=== PATIENT | female | born 1950 | race Caucasian/White ===

== ENCOUNTER → 2017-12-24 09:09 | Outpatient (CLI) | payer MEDICARE, SELFPAY ==
[2017-12-24 10:29] LABS: Hematocrit 39.9 % (37-47); Hemoglobin 12.5 g/dl (12.0-15.0); Mean Corp Hgb Conc 31.3 g/gl (32-36); Mean Corpuscular Hgb 29.6 pg (27.0-32.0); Mean Corpuscular Volume 94.3 fL (81-99); Mean Platelet Vol. 8.9 fl (6.2-12.0); Platelet Count 232 K/mm3 (150-450); RBC Distribution Width CV 12.9 % (11.6-14.6); RBC Distribution Width SD 44.1 fl (35.1-43.9); Red Blood Count 4.23 M/mm3 (4.2-5.4); White Blood Count 5.1 K/mm3 (4.4-11.0)
[2017-12-24 10:30] LABS: Scan Indicated on CBC? Y/N NO
[2017-12-24 10:49] LABS: Microalbumin,Random Urine 21.2 mg/L (NO RANGE EST.); Microalbumin:Creatinine Ratio 56.5 mg/g CRE (<30 mg/g CRE)
[2017-12-24 10:57] LABS: Albumin, Serum 3.6 g/dL (3.2-5.0); BUN 25 mg/dL (7-18); BUN/Creat Ratio 16.7 RATIO (10-20); Calcium,Total 9.9 mg/dL (8.5-10.1); Chloride 105 mmol/L (98-107); EST Glomerular Filtration Rate 37 mL/min (>60); Est Glom Filt Rate - Afr Amer 44 mL/min (>60); Glucose 82 mg/dL (74-106); Phosphorus 3.1 mg/dL (2.5-4.9); Sodium Level 137 mmol/L (136-145)
[2017-12-25 09:03] LABS: Vitamin D,25 Hydroxy 56.7 ng/mL (19.95-100.01)
[2017-12-25 09:04] LABS: PTHIN 91.2 pg/mL (18.4-80.1)
== END ==
PROVIDERS: Family Provider Nurse Practitioner Family; PCP Nurse Practitioner Family; Visit Provider Internal Medicine Nephrology
DX: N25.1 Nephrogenic diabetes insipidus (principal)
CPT/HCPCS: 36415; 80069; 82043; 82306; 82570; 83970; 85027

== ENCOUNTER → 2018-03-23 08:52 | Outpatient (CLI) | payer MEDICARE, SELFPAY ==
[2018-03-23 09:54] LABS: AST(SGOT) 17 U/L (15-37); Alanine Aminotransfer ALT/SGPT 17 U/L (13-56); Albumin, Serum 3.7 g/dL (3.2-5.0); Alkaline Phosphatase 91 U/L (45-117); Anion Gap 8 (5-15); BUN 33 mg/dL (7-18); BUN/Creat Ratio 18.1 RATIO (10-20); Calcium,Total 9.5 mg/dL (8.5-10.1); Chloride 112 mmol/L (98-107); Creatinine, Serum 1.82 mg/dL (0.55-1.02); EST Glomerular Filtration Rate 29 mL/min (>60); Est Glom Filt Rate - Afr Amer 35 mL/min (>60); Globulin 3.6 g/dL (2.2-4.2); Glucose 114 mg/dL (74-106); Potassium 4.5 mmol/L (3.5-5.1); Protein, Total 7.3 g/dL (6.4-8.2); Sodium Level 142 mmol/L (136-145)
[2018-03-24 09:23] LABS: PTHIN 150.4 pg/mL (18.4-80.1)
[2018-03-24 09:30] LABS: Vitamin D,25 Hydroxy 75.3 ng/mL (29.95-100.01)
== END ==
PROVIDERS: Family Provider Nurse Practitioner Family; PCP Nurse Practitioner Family; Visit Provider Internal Medicine Endocrinology, Diabetes & Metabolism
DX: E83.52 Hypercalcemia (principal)
CPT/HCPCS: 36415; 80053; 82306; 82330; 83970

== ENCOUNTER 2018-06-28 09:37 | Outpatient (RCR) | payer MEDICARE, SELFPAY ==
[2018-06-28 11:43] LABS: ALB/GLOB Ratio 1.2 RATIO (0.9-2.4); AST(SGOT) 19 U/L (15-37); Alanine Aminotransfer ALT/SGPT 27 U/L (13-56); Albumin, Serum 3.7 g/dL (3.2-5.0); Alkaline Phosphatase 65 U/L (45-117); Anion Gap 12 (5-15); BUN 31 mg/dL (7-18); BUN/Creat Ratio 18.8 RATIO (10-20); Calcium,Total 10.3 mg/dL (8.5-10.1); Chloride 111 mmol/L (98-107); Creatinine, Serum 1.65 mg/dL (0.55-1.02); EST Glomerular Filtration Rate 33 mL/min (>60); Est Glom Filt Rate - Afr Amer 40 mL/min (>60); Globulin 3.1 g/dL (2.2-4.2); Glucose 101 mg/dL (74-106); Potassium 4.1 mmol/L (3.5-5.1); Protein, Total 6.8 g/dL (6.4-8.2); Sodium Level 148 mmol/L (136-145)
== END 2018-06-28 11:00 | disposition home or self-care (01) ==
LOC: LAB 09:37
PROVIDERS: Family Provider Nurse Practitioner Family; PCP Nurse Practitioner Family
DX: Z51.81 Encounter for therapeutic drug level monitoring (principal)
CPT/HCPCS: 36415; 80053

== ENCOUNTER 2018-06-29 15:54 | Inpatient (IN) | payer MEDICARE, SELFPAY ==
[2018-06-29 15:54] VITALS: BP 137/77; PULSE 97; RESP 20; TEMP 37.5; O2SAT 96; BMI 22.4
--- NOTE | 2018-06-29 16:23 | ED.VISSUMM ---
- ER Visit Summary Date of Service: 06/29/18 Chief Complaint: Fever and delirium History of Present Illness: The patient is a 68 F with history of bipolar disorder, diabetes insipidus, recent diagnosis of hyperparathyroidism, history of stage III chronic kidney disease, presents for evaluation of delirium and fever. History provided by the and the patient. Patient was recently discharged after a 10 day admission to [facility], at which time she was diagnosed with hyperparathyroidism, and treated for hypercalcemia and hyponatremia. She was discharged 4 days ago. states the patient had a routine follow-up evaluation today with her primary care provider, who was concerned patient might be septic. Patient had a fever at the visit of 101.6. states there are no new symptoms since her hospital admission, and the way she is acting today is similar to the reason he took her to [facility] emergency department to begin with. She is having abnormal behavior, tremors, decreased oral intake, decreased sleep, symptoms worse at night. He denies noting a measured fever at home, and patient denies chest pain, cough, shortness of breath, abdominal pain, nausea or vomiting, diarrhea or constipation, dysuria or hematuria. Patient does have polyuria. Medication changes include changing to Ativan 3 times daily with Klonopin being discontinued. Patient's olanzapine was also increased. No other medication changes after the admission. Physical Examination: Vital signs: Oral temperature 99.5, hemodynamically stable, no hypoxia on room air General: Thin, well developed, in no distress, mildly agitated and tearful Skin: warm, dry, no rash, no conjunctival pallor HEENT: normocephalic and atraumatic; PERRL, EOMI, moist mucous membranes, no oropharyngeal lesions noted Cardiovascular: regular rate and rhythm without murmurs, no peripheral edema, 2+ pulses all distal extremities Respiratory: No increased work of breathing, lungs are clear to auscultation bilaterally, no rales, rhonchi or wheezing Abdominal: Abdomen is soft, nontender with normoactive bowel sounds, no guarding or rebound, no masses MSK: Moves all extremities, no deformities, normal strength Neuro: Awake and alert, oriented ?4. No facial droop, sensation and motor function intact and symmetric, mild tremulousness in the upper extremities Test Results: Abnormal Lab Results 06/29/18 06/29/18 06/29/18 16:20 16:55 16:55 WBC 11.5 H RBC 3.36 L Hgb 10.5 L Hct 32.6 L MCV 97.0 MCH 31.3 MCHC 32.2 RDW 13.0 RDW Differential 43.9 Plt Count 229 MPV 8.5 Immature Gran % (Auto) 0.200 Neut % (Auto) 86.0 H Lymph % (Auto) 6.1 L Peach % (Auto) 7.3 Eos % (Auto) 0.3 Baso % (Auto) 0.1 Absolute Neuts (auto) 9.9 H Absolute Lymphs (auto) 0.70 L Total Counted Not Reportable ESR PT 13.1 INR 1.0 APTT 24.8 Sodium Potassium Chloride Carbon Dioxide Anion Gap BUN Creatinine Estim Creat Clear Calc Est GFR (MDRD) Af Amer Est GFR (MDRD) Non-Af BUN/Creatinine Ratio Glucose Lactic Acid 1.0 Calcium Phosphorus Magnesium Total Bilirubin AST ALT Alkaline Phosphatase Troponin I Total Protein Albumin Globulin Albumin/Globulin Ratio TSH Free T4 Urine Color Urine Clarity Urine pH Ur Specific [place] Urine Protein Urine Glucose (UA) Urine Ketones Urine Occult Blood Urine Nitrite Urine Bilirubin Urine Urobilinogen Ur Leukocyte Esterase Urine RBC Urine WBC Ur Squamous Epith Cells Urine Bacteria Urine Mucus Urine Opiates Screen Urine Methadone Screen Ur Barbiturates Screen Ur Phencyclidine Scrn Ur Amphetamines Screen U Methamphetamin-MDMA U Benzodiazepines Scrn Urine Cocaine Screen U Cannabinoids Screen Ur Drug Screen Comment Ethyl Alcohol POC Glucose 06/29/18 06/29/18 06/29/18 16:55 16:55 16:55 WBC RBC Hgb Hct MCV MCH MCHC RDW RDW Differential Plt Count MPV Immature Gran % (Auto) Neut % (Auto) Lymph % (Auto) Peach % (Auto) Eos % (Auto) Baso % (Auto) Absolute Neuts (auto) Absolute Lymphs (auto) Total Counted ESR PT INR APTT Sodium 141 Potassium 4.2 Chloride 108 H Carbon Dioxide 28.0 Anion Gap 5 BUN 26 H Creatinine 1.72 H Estim Creat Clear Calc 27.78 Est GFR (MDRD) Af Amer 38 L Est GFR (MDRD) Non-Af 31 L BUN/Creatinine Ratio 15.1 Glucose 87 Lactic Acid Calcium 10.3 H Phosphorus 3.4 Magnesium 2.6 Total Bilirubin 0.50 AST 18 ALT 26 Alkaline Phosphatase 73 Troponin I < 0.015 Total Protein 7.2 Albumin 3.7 Globulin 3.5 Albumin/Globulin Ratio 1.1 TSH 0.07 L Free T4 1.29 Urine Color Urine Clarity Urine pH Ur Specific [place] Urine Protein Urine Glucose (UA) Urine Ketones Urine Occult Blood Urine Nitrite Urine Bilirubin Urine Urobilinogen Ur Leukocyte Esterase Urine RBC Urine WBC Ur Squamous Epith Cells Urine Bacteria Urine Mucus Urine Opiates Screen Urine Methadone Screen Ur Barbiturates Screen Ur Phencyclidine Scrn Ur Amphetamines Screen U Methamphetamin-MDMA U Benzodiazepines Scrn Urine Cocaine Screen U Cannabinoids Screen Ur Drug Screen Comment Ethyl Alcohol < 3.0 POC Glucose 06/29/18 06/29/18 06/29/18 16:55 17:20 17:20 WBC RBC Hgb Hct MCV MCH MCHC RDW RDW Differential Plt Count MPV Immature Gran % (Auto) Neut % (Auto) Lymph % (Auto) [place] % (Auto) Eos % (Auto) Baso % (Auto) Absolute Neuts (auto) Absolute Lymphs (auto) Total Counted ESR 22 PT INR APTT Sodium Potassium Chloride Carbon Dioxide Anion Gap BUN Creatinine Estim Creat Clear Calc Est GFR (MDRD) Af Amer Est GFR (MDRD) Non-Af BUN/Creatinine Ratio Glucose Lactic Acid Calcium Phosphorus Magnesium Total Bilirubin AST ALT Alkaline Phosphatase Troponin I Total Protein Albumin Globulin Albumin/Globulin Ratio TSH Free T4 Urine Color Yellow Urine Clarity Sl. Cloudy Urine pH 7.0 Ur Specific [place] 1.005 Urine Protein 100 H Urine Glucose (UA) Normal Urine Ketones Negative Urine Occult Blood 250 H Urine Nitrite Negative Urine Bilirubin Negative Urine Urobilinogen Normal Ur Leukocyte Esterase 500 H Urine RBC 5-10 SEEN Urine WBC 10-25 SEEN Ur Squamous Epith Cells 0-5 SEEN Urine Bacteria RARE Urine Mucus 0 SEEN Urine Opiates Screen NEGATIVE Urine Methadone Screen NEGATIVE Ur Barbiturates Screen NEGATIVE Ur Phencyclidine Scrn NEGATIVE Ur Amphetamines Screen NEGATIVE U Methamphetamin-MDMA NEGATIVE U Benzodiazepines Scrn NEGATIVE Urine Cocaine Screen NEGATIVE U Cannabinoids Screen NEGATIVE Ur Drug Screen Comment Ethyl Alcohol POC Glucose 06/29/18 18:04 WBC RBC Hgb Hct MCV MCH MCHC RDW RDW Differential Plt Count MPV Immature Gran % (Auto) Neut % (Auto) Lymph % (Auto) [place] % (Auto) Eos % (Auto) Baso % (Auto) Absolute Neuts (auto) Absolute Lymphs (auto) Total Counted ESR PT INR APTT Sodium Potassium Chloride Carbon Dioxide Anion Gap BUN Creatinine Estim Creat Clear Calc Est GFR (MDRD) Af Amer Est GFR (MDRD) Non-Af BUN/Creatinine Ratio Glucose Lactic Acid Calcium Phosphorus Magnesium Total Bilirubin AST ALT Alkaline Phosphatase Troponin I Total Protein Albumin Globulin Albumin/Globulin Ratio TSH Free T4 Urine Color Urine Clarity Urine pH Ur Specific [place] Urine Protein Urine Glucose (UA) Urine Ketones Urine Occult Blood Urine Nitrite Urine Bilirubin Urine Urobilinogen Ur Leukocyte Esterase Urine RBC Urine WBC Ur Squamous Epith Cells Urine Bacteria Urine Mucus Urine Opiates Screen Urine Methadone Screen Ur Barbiturates Screen Ur Phencyclidine Scrn Ur Amphetamines Screen U Methamphetamin-MDMA U Benzodiazepines Scrn Urine Cocaine Screen U Cannabinoids Screen Ur Drug Screen Comment Ethyl Alcohol POC Glucose 92 Clinical Impression(s) from Imaging Studies Brain CT 06/29/18 16:20 IMPRESSION: No evidence of acute intracranial or calvarial abnormality or major interval change. Electronically Signed: Gautam Ta DO at 18:01 EDT Tel [phone], Service support , Chest X-Ray 06/29/18 16:30 IMPRESSION: Atelectasis versus infiltrate at the right lung base without other major interval change. Electronically Signed: Gautam Ta DO at 16:55 EDT Tel [phone], Service support , Medications Given Discontinued Medications Sodium Chloride () 500 mls @ 1,000 mls/hr IV .Q30M BINA Stop: 06/29/18 16:59 Last Admin: 06/29/18 18:13 Dose: 1,000 mls/hr Azithromycin 500 mg/ Dextrose 255 mls @ 250 mls/hr IV X1 ONE Stop: 06/29/18 19:05 Last Admin: 06/29/18 19:03 Dose: 250 mls/hr Ceftriaxone Sodium (Rocephin) 1 gm in 50 mls @ 100 mls/hr IV X1 ONE Stop: 06/29/18 18:33 Last Admin: 06/29/18 18:19 Dose: 100 mls/hr Emergency Department Course and Treatment: Patient presents for fever and was referred by primary care doctor due to concern for possible underlying infection. states there are no new complaints since the patient was admitted at [facility], however she has had a cough for 3 weeks, increased urination and occasional dysuria for the same time period, and now measurable fever. Workup was performed to look for causes of delirium and fever. CT the head was performed to look for any mass-effect, lesion or intracranial hemorrhage. It was unremarkable. Chest x-ray showed a concern for a lower lobe pneumonia. EKG showed no ischemic changes. Patient had no significant leukocytosis. No electrolyte derangements, and kidney function at baseline. Urine was consistent with UTI. Troponin negative. Lactate normal. TSH was low but free T4 was within normal limits. Patient received IV hydration. She was started on Rocephin for coverage of pneumonia and UTI as well as azithromycin for additional coverage of pneumonia. Discussed with patient and the options for outpatient antibiotic treatment and follow-up for her tremulousness and ongoing episodes of confusion for which she was hospitalized at [facility]. They more comfortable with overnight admission for IV antibiotics. Patient was discussed with hospitalist for admission for concern for right lower lobe pneumonia, UTI, and confusion in a patient with multiple medical comorbidities including diabetes insipidus, new diagnosis of hyperparathyroidism, and mild hypercalcemia. Treatment Plan: [] Disposition: [] Impression: Right lower lobe pneumonia UTI Confusion Mild hypercalcemia History of diabetes insipidus History of hyperparathyroidism History of bipolar disorder This note was generated with [employer] dictation software. It may contain incorrect words, spelling, and punctuation that were not noted in review of the chart prior to signing ED Disposition - Plan for ED Patient: Disposition: Acute Care Hospital [facility] Chief Complaint: General Illness
--- NOTE | 2018-06-29 16:27 | ED.DCSUM_ITS ---
- ER Visit Summary Date of Service: 06/29/18 Chief Complaint: Fever and delirium History of Present Illness: The patient is a 68 F with history of bipolar disorder, diabetes insipidus, recent diagnosis of hyperparathyroidism, history of stage III chronic kidney disease, presents for evaluation of delirium and fever. History provided by the and the patient. Patient was recently discharged after a 10 day admission to [facility], at which time she was diagnosed with hyperparathyroidism, and treated for hypercalcemia and hyponatremia. She was discharged 4 days ago. states the patient had a routine follow-up evaluation today with her primary care provider, who was concerned patient might be septic. Patient had a fever at the visit of 101.6. states there are no new symptoms since her hospital admission, and the way she is acting today is similar to the reason he took her to [facility] emergency department to begin with. She is having abnormal behavior, tremors, decreased oral intake, decreased sleep, symptoms worse at night. He denies noting a measured fever at home, and patient denies chest pain, cough, shortness of breath, abdominal pain, nausea or vomiting, diarrhea or constipation, dysuria or hematuria. Patient does have polyuria. Medication changes include changing to Ativan 3 times daily with Klonopin being discontinued. Patient's olanzapine was also increased. No other medication changes after the admission. Physical Examination: Vital signs: Oral temperature 99.5, hemodynamically stable, no hypoxia on room air General: Thin, well developed, in no distress, mildly agitated and tearful Skin: warm, dry, no rash, no conjunctival pallor HEENT: normocephalic and atraumatic; PERRL, EOMI, moist mucous membranes, no oropharyngeal lesions noted Cardiovascular: regular rate and rhythm without murmurs, no peripheral edema, 2 + pulses all distal extremities Respiratory: No increased work of breathing, lungs are clear to auscultation bilaterally, no rales, rhonchi or wheezing Abdominal: Abdomen is soft, nontender with normoactive bowel sounds, no guarding or rebound, no masses MSK: Moves all extremities, no deformities, normal strength Neuro: Awake and alert, oriented ?4. No facial droop, sensation and motor function intact and symmetric, mild tremulousness in the upper extremities Test Results: Abnormal Lab Results 06/29/18 06/29/18 06/29/18 16:20 16:55 16:55 WBC 11.5 H RBC 3.36 L Hgb 10.5 L Hct 32.6 L MCV 97.0 MCH 31.3 MCHC 32.2 RDW 13.0 RDW Differential 43.9 Plt Count 229 MPV 8.5 Immature Gran % (Auto) 0.200 Neut % (Auto) 86.0 H Lymph % (Auto) 6.1 L [place] % (Auto) 7.3 Eos % (Auto) 0.3 Baso % (Auto) 0.1 Absolute Neuts (auto) 9.9 H Absolute Lymphs (auto) 0.70 L Total Counted Not Reportable ESR PT 13.1 INR 1.0 APTT 24.8 Sodium Potassium Chloride Carbon Dioxide Anion Gap BUN Creatinine Estim Creat Clear Calc Est GFR (MDRD) Af Amer Est GFR (MDRD) Non-Af BUN/Creatinine Ratio Glucose Lactic Acid 1.0 Calcium Phosphorus Magnesium Total Bilirubin AST ALT Alkaline Phosphatase Troponin I Total Protein Albumin Globulin Albumin/Globulin Ratio TSH Free T4 Urine Color Urine Clarity Urine pH Ur Specific [place] Urine Protein Urine Glucose (UA) Urine Ketones Urine Occult Blood Urine Nitrite Urine Bilirubin Urine Urobilinogen Ur Leukocyte Esterase Urine RBC Urine WBC Ur Squamous Epith Cells Urine Bacteria Urine Mucus Urine Opiates Screen Urine Methadone Screen Ur Barbiturates Screen Ur Phencyclidine Scrn Ur Amphetamines Screen U Methamphetamin-MDMA U Benzodiazepines Scrn Urine Cocaine Screen U Cannabinoids Screen Ur Drug Screen Comment Ethyl Alcohol POC Glucose 06/29/18 06/29/18 06/29/18 16:55 16:55 16:55 WBC RBC Hgb Hct MCV MCH MCHC RDW RDW Differential Plt Count MPV Immature Gran % (Auto) Neut % (Auto) Lymph % (Auto) [place] % (Auto) Eos % (Auto) Baso % (Auto) Absolute Neuts (auto) Absolute Lymphs (auto) Total Counted ESR PT INR APTT Sodium 141 Potassium 4.2 Chloride 108 H Carbon Dioxide 28.0 Anion Gap 5 BUN 26 H Creatinine 1.72 H Estim Creat Clear Calc 27.78 Est GFR (MDRD) Af Amer 38 L Est GFR (MDRD) Non-Af 31 L BUN/Creatinine Ratio 15.1 Glucose 87 Lactic Acid Calcium 10.3 H Phosphorus 3.4 Magnesium 2.6 Total Bilirubin 0.50 AST 18 ALT 26 Alkaline Phosphatase 73 Troponin I < 0.015 Total Protein 7.2 Albumin 3.7 Globulin 3.5 Albumin/Globulin Ratio 1.1 TSH 0.07 L Free T4 1.29 Urine Color Urine Clarity Urine pH Ur Specific [place] Urine Protein Urine Glucose (UA) Urine Ketones Urine Occult Blood Urine Nitrite Urine Bilirubin Urine Urobilinogen Ur Leukocyte Esterase Urine RBC Urine WBC Ur Squamous Epith Cells Urine Bacteria Urine Mucus Urine Opiates Screen Urine Methadone Screen Ur Barbiturates Screen Ur Phencyclidine Scrn Ur Amphetamines Screen U Methamphetamin-MDMA U Benzodiazepines Scrn Urine Cocaine Screen U Cannabinoids Screen Ur Drug Screen Comment Ethyl Alcohol < 3.0 POC Glucose 06/29/18 06/29/18 06/29/18 16:55 17:20 17:20 WBC RBC Hgb Hct MCV MCH MCHC RDW RDW Differential Plt Count MPV Immature Gran % (Auto) Neut % (Auto) Lymph % (Auto) [place] % (Auto) Eos % (Auto) Baso % (Auto) Absolute Neuts (auto) Absolute Lymphs (auto) Total Counted ESR 22 PT INR APTT Sodium Potassium Chloride Carbon Dioxide Anion Gap BUN Creatinine Estim Creat Clear Calc Est GFR (MDRD) Af Amer Est GFR (MDRD) Non-Af BUN/Creatinine Ratio Glucose Lactic Acid Calcium Phosphorus Magnesium Total Bilirubin AST ALT Alkaline Phosphatase Troponin I Total Protein Albumin Globulin Albumin/Globulin Ratio TSH Free T4 Urine Color Yellow Urine Clarity Sl. Cloudy Urine pH 7.0 Ur Specific [place] 1.005 Urine Protein 100 H Urine Glucose (UA) Normal Urine Ketones Negative Urine Occult Blood 250 H Urine Nitrite Negative Urine Bilirubin Negative Urine Urobilinogen Normal Ur Leukocyte Esterase 500 H Urine RBC 5-10 SEEN Urine WBC 10-25 SEEN Ur Squamous Epith Cells 0-5 SEEN Urine Bacteria RARE Urine Mucus 0 SEEN Urine Opiates Screen NEGATIVE Urine Methadone Screen NEGATIVE Ur Barbiturates Screen NEGATIVE Ur Phencyclidine Scrn NEGATIVE Ur Amphetamines Screen NEGATIVE U Methamphetamin-MDMA NEGATIVE U Benzodiazepines Scrn NEGATIVE Urine Cocaine Screen NEGATIVE U Cannabinoids Screen NEGATIVE Ur Drug Screen Comment Ethyl Alcohol POC Glucose 06/29/18 18:04 WBC RBC Hgb Hct MCV MCH MCHC RDW RDW Differential Plt Count MPV Immature Gran % (Auto) Neut % (Auto) Lymph % (Auto) [place] % (Auto) Eos % (Auto) Baso % (Auto) Absolute Neuts (auto) Absolute Lymphs (auto) Total Counted ESR PT INR APTT Sodium Potassium Chloride Carbon Dioxide Anion Gap BUN Creatinine Estim Creat Clear Calc Est GFR (MDRD) Af Amer Est GFR (MDRD) Non-Af BUN/Creatinine Ratio Glucose Lactic Acid Calcium Phosphorus Magnesium Total Bilirubin AST ALT Alkaline Phosphatase Troponin I Total Protein Albumin Globulin Albumin/Globulin Ratio TSH Free T4 Urine Color Urine Clarity Urine pH Ur Specific [place] Urine Protein Urine Glucose (UA) Urine Ketones Urine Occult Blood Urine Nitrite Urine Bilirubin Urine Urobilinogen Ur Leukocyte Esterase Urine RBC Urine WBC Ur Squamous Epith Cells Urine Bacteria Urine Mucus Urine Opiates Screen Urine Methadone Screen Ur Barbiturates Screen Ur Phencyclidine Scrn Ur Amphetamines Screen U Methamphetamin-MDMA U Benzodiazepines Scrn Urine Cocaine Screen U Cannabinoids Screen Ur Drug Screen Comment Ethyl Alcohol POC Glucose 92 Clinical Impression(s) from Imaging Studies Brain CT 06/29/18 16:20 IMPRESSION: No evidence of acute intracranial or calvarial abnormality or major interval change. Electronically Signed: Gautam Ta DO at 18:01 EDT Tel [phone], Service support , Chest X-Ray 06/29/18 16:30 IMPRESSION: Atelectasis versus infiltrate at the right lung base without other major interval change. Electronically Signed: Gautam Ta DO at 16:55 EDT Tel [phone], Service support , Medications Given Discontinued Medications Sodium Chloride () 500 mls @ 1,000 mls/hr IV .Q30M BINA Stop: 06/29/18 16:59 Last Admin: 06/29/18 18:13 Dose: 1,000 mls/hr Azithromycin 500 mg/ Dextrose 255 mls @ 250 mls/hr IV X1 ONE Stop: 06/29/18 19:05 Last Admin: 06/29/18 19:03 Dose: 250 mls/hr Ceftriaxone Sodium (Rocephin) 1 gm in 50 mls @ 100 mls/hr IV X1 ONE Stop: 06/29/18 18:33 Last Admin: 06/29/18 18:19 Dose: 100 mls/hr Emergency Department Course and Treatment: Patient presents for fever and was referred by primary care doctor due to concern for possible underlying infection. states there are no new complaints since the patient was admitted at [facility], however she has had a cough for 3 weeks, increased urination and occasional dysuria for the same time period, and now measurable fever. Workup was performed to look for causes of delirium and fever. CT the head was performed to look for any mass-effect, lesion or intracranial hemorrhage. It was unremarkable. Chest x-ray showed a concern for a lower lobe pneumonia. EKG showed no ischemic changes. Patient had no significant leukocytosis. No electrolyte derangements, and kidney function at baseline. Urine was consistent with UTI. Troponin negative. Lactate normal. TSH was low but free T4 was within normal limits. Patient received IV hydration. She was started on Rocephin for coverage of pneumonia and UTI as well as azithromycin for additional coverage of pneumonia. Discussed with patient and the options for outpatient antibiotic treatment and follow-up for her tremulousness and ongoing episodes of confusion for which she was hospitalized at [facility]. They more comfortable with overnight admission for IV antibiotics. Patient was discussed with hospitalist for admission for concern for right lower lobe pneumonia, UTI, and confusion in a patient with multiple medical comorbidities including diabetes insipidus, new diagnosis of hyperparathyroidism, and mild hypercalcemia. Treatment Plan: [] Disposition: [] Impression: Right lower lobe pneumonia UTI Confusion Mild hypercalcemia History of diabetes insipidus History of hyperparathyroidism History of bipolar disorder This note was generated with [employer] dictation software. It may contain incorrect words, spelling, and punctuation that were not noted in review of the chart prior to signing ED Disposition - Plan for ED Patient: Disposition: Acute Care Hospital [facility] Chief Complaint: General Illness
[2018-06-29 17:00] VITALS: BP 121/91; PULSE 91; RESP 20; O2SAT 99
[2018-06-29 17:05] LABS: Absolute Neutrophil Count 9.9 X10^3/uL (2.0-7.7); Basophil# 0.01 X10^3/uL; Basophil% 0.1 % (0-1); Eosinophil# 0.03 X10^3/uL; Eosinophils% 0.3 % (0-5); Hematocrit 32.6 % (37-47); Hemoglobin 10.5 g/dl (12.0-15.0); Lymphocyte % 6.1 % (19-41); Mean Corp Hgb Conc 32.2 g/gl (32-36); Mean Corpuscular Hgb 31.3 pg (27.0-32.0); Mean Platelet Vol. 8.5 fl (6.2-12.0); Monocyte# 0.84 X10^3/uL; Monocyte% 7.3 % (0-10); Neutrophil # 9.91 X10^3/uL (2.7-7.7); Platelet Count 229 K/mm3 (150-450); RBC Distribution Width SD 43.9 fl (35.1-43.9); Red Blood Count 3.36 M/mm3 (4.2-5.4); White Blood Count 11.5 K/mm3 (4.4-11.0)
[2018-06-29 17:06] LABS: POSITIVE COUNT NO; POSITIVE DIFFERENTIAL NO; POSITIVE MORPHOLOGY NO
[2018-06-29 17:18] LABS: Prothrombin Time (Protime)PT. 13.1 SECONDS (11.7-14.9)
[2018-06-29 17:19] LABS: Partial Thromboplast Time 24.8 Seconds (24.1-36.2)
[2018-06-29 17:31] LABS: Mucous, Urine 0 SEEN /hpf (<or=2+)
[2018-06-29 17:35] LABS: Alcohol, Blood (Medical)-Serum < 3.0 mg/dL
[2018-06-29 17:46] LABS: Phosphorus 3.4 mg/dL (2.5-4.9)
[2018-06-29 17:49] LABS: ALB/GLOB Ratio 1.1 RATIO (0.9-2.4); AST(SGOT) 18 U/L (15-37); Alanine Aminotransfer ALT/SGPT 26 U/L (13-56); Albumin, Serum 3.7 g/dL (3.2-5.0); Alkaline Phosphatase 73 U/L (45-117); Anion Gap 5 (5-15); BUN 26 mg/dL (7-18); BUN/Creat Ratio 15.1 RATIO (10-20); Calcium,Total 10.3 mg/dL (8.5-10.1); Chloride 108 mmol/L (98-107); Creatinine, Serum 1.72 mg/dL (0.55-1.02); EST Glomerular Filtration Rate 31 mL/min (>60); Est Glom Filt Rate - Afr Amer 38 mL/min (>60); Estimated Creatinine Clearance 27.78 ml/min; Globulin 3.5 g/dL (2.2-4.2); Glucose 87 mg/dL (74-106); Magnesium 2.6 mg/dL (1.6-2.6); Potassium 4.2 mmol/L (3.5-5.1); Protein, Total 7.2 g/dL (6.4-8.2); Sodium Level 141 mmol/L (136-145); T4 Free Direct 1.29 ng/dL (0.76-1.46); Thyroid Stim Hormone (TSH) 0.07 uIU/mL (0.358-3.74)
[2018-06-29 17:55] LABS: Amphetamine Urine VISTA NEGATIVE (<1000 ng/mL); Barbiturate Urine VISTA NEGATIVE (< 200 ng/mL); Benzodiazepine Urine VISTA NEGATIVE (< 200 ng/mL); Cocaine Urine VISTA NEGATIVE (< 300 ng/mL); Ecstacy Urine VISTA NEGATIVE (< 500 ng/mL); Methadone Urine VISTA NEGATIVE (< 300 ng/mL); PCP Urine VISTA NEGATIVE (< 25 ng/mL); THC Urine VISTA NEGATIVE (< 50 ng/mL); Vista UDS pH Range 6
[2018-06-29 18:06] VITALS: PULSE 96; RESP 20; TEMP 37.1; O2SAT 99
[2018-06-29 18:10] LABS: Bedside Glucose 92 mg/dL (70-110)
[2018-06-29 18:11] LABS: Color, Urine Yellow (Yellow); Glucose, Dipstick Normal (Normal); Ketone-Dipstick Negative (Negative); Leukocyte Esterase-Dipstick 500 /ul (Negative); Nitrite-Dipstick Negative (Negative); Occult Blood-Urine 250 /ul (Negative); Protein-Dipstick 100 mg/dl (Negative); Specific Gravity, Urine 1.005 (1.002-1.030); Urine Bilirubin Dipstick Negative (Negative); Urine Clarity Sl. Cloudy (Clear); Urine Urobilinogen Normal (Normal)
[2018-06-29] MEDS: Ceftriaxone 1 GM/50 ML BAG IV (18:19)
[2018-06-29 18:37] LABS: Bacteria RARE /hpf (None Seen); Red Blood Cells-Urine 5-10 SEEN /hpf (0-5); Squamous Epithelial Cells - UA 0-5 SEEN /hpf (5-10); White Blood Cells 10-25 SEEN /hpf (0-5)
[2018-06-29 19:07] VITALS: PULSE 95; RESP 18; O2SAT 98
[2018-06-29 19:56] VITALS: BMI 22.5
[2018-06-29 20:02] VITALS: BP 134/90; PULSE 86; O2SAT 98
--- NOTE | 2018-06-29 20:37 | PCM.HP.STD ---
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 Today in the PCP office see was noted to have temperature 100.6, her mental status including behavior, anxiety has gotten worse. As per the , she has bipolar but she is more disorganized, anxious and disoriented. Patient also had Tinoco catheterization while in [facility] for urine collection for about 1 day prior to discharge. Chest x-ray shows right base infiltrate seems more atelectasis as it was present in previous chest x-ray. She has on and off chronic cough which gets exacerbated during anxiety. [] In ED, temperature was 99.5?F. 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 (Chronic) Bipolar disorder (Chronic) Allergies No Known Allergies Allergy (Verified 06/29/18 15:57) Home Medications: Ambulatory Orders Medication Instructions Recorded Lorazepam [Ativan] 1 mg PO TID PRN 11/21/15 Desmopressin Acetate [Desmopressin 0.1 mg PO DAILY 06/29/18 Acetate] Docusate Sodium [Colace] 100 mg PO DAILY 06/29/18 Ergocalciferol [Vitamin D] 50,000 unit PO UD 06/29/18 Ferrous Sulfate [Ferrous Sulfate] 324 mg PO BID 06/29/18 Ibandronate Sodium [Boniva] 150 mg PO Q30D 06/29/18 Lamotrigine [Lamotrigine] 200 mg PO DAILY 06/29/18 Olanzapine [Olanzapine] 5 mg PO DAILY 08/21/18 Olanzapine [Zyprexa] 20 mg PO QHS 06/29/18 Perphenazine [Perphenazine] 4 mg PO TID 06/29/18 Polyethylene Glycol 3350 17 gm PO DAILY 06/29/18 [Powderlax] Surgical History: noncontributory Smoking Status: Former smoker Tobacco Use: Cigarettes - *Family History Maternal History Items: No pertinent history Review of Systems Constitutional: Reports: Chills, Fever, Weakness, Fatigue HEENT: Denies: Head Aches, Sinus Congestion, Sinus Drainage Cardiovascular: Denies: Chest Pain, Palpitations Respiratory: Denies: Cough, Shortness of breath at rest, Sputum production Gastrointestinal: Reports: Nausea. Denies: Abdominal Pain, Hematemesis, Hematochezia, Vomiting Genitourinary: Reports: Dysuria, Frequency, Hesitancy, Urgency Musculoskeletal: Denies: Joint Pain, Joint Tenderness Skin: Denies: Rash, Wounds Neurological: Denies: Numbness, Tingling, Focal weakness Psychiatric: Reports: Anxiety, Depression. Denies: Homicidal Ideations, Suicidal Ideations Hematologic/ Lymphatic: Denies: Easy Bruising, Easy Bleeding VTE Information - Inpt Only VTE Present on Admission: No VTE Mechan Device Prophylaxis: None VTE Pharm Prophylaxis ordered?: Yes Patient Problems: Active and Suspected Problems UTI (urinary tract infection) (Acute) - Physical Exam General: Alert, Cooperative, Confused - Disorganized behavior, Disoriented - Disoriented to time HEENT: Atraumatic, PERRLA, EOMI, Normocephalic Oral: Dry Mucosa Neck: Supple, No JVD, Negative Carotid Bruits Lungs: Clear to auscultation, Normal air movement, No rhonchi, No wheeze Cardiovascular: Regular rate, Regular Rhythm, Normal S1, Normal S2, No murmurs Abdomen: Bowel Sounds Present, Soft, Non Tender, Non-Distended Extremities: No edema, Capillary Refill Less than 3 Seconds Skin: No rashes, No breakdown Musculoskeletal: No Tenderness to Palpation of Joints or Extremities, Arthritic Changes Neurological: Cranial nerves II-XII grossly intact, Neuro grossly intact Psych/Mental Status: Anxious, Impulsive, Restless Vital Signs Temp Pulse Resp BP Pulse Ox 98.7 F 86 18 134/90 H 98 06/29/18 18:06 06/29/18 20:02 06/29/18 19:07 06/29/18 20:02 06/29/18 20:02 Assessment/Plan All Active Problems UTI (urinary tract infection) (Acute) The patient is a 68 year old F with history of bipolar disorder, recent diagnosis of hyperparathyroidism and diabetes insipidus, CKD stage III, discharged from [facility] about 10 days ago came to ER with fever, chills, increased frequency, urgency and burning micturition for about 4 days. Today in the PCP office see was noted to have temperature 100.6, her mental status including behavior, anxiety has gotten worse. As per the , she has bipolar but she is more disorganized, anxious and disoriented. Patient also had Tinoco catheterization while in [facility] for urine collection for about 1 day prior to discharge. Chest x-ray shows right base infiltrate seems more atelectasis as it was present in previous chest x-ray. She has on and off chronic cough which gets exacerbated during anxiety. [] In ED, temperature was 99.5?F. 1. Fever due to catheter associated UTI: Patient is being admitted on regular [facility] floor. Patient started on IV ceftriaxone. Urine culture and blood culture ?2 ordered. Patient had previous E. coli UTI in October 2015. 2. Acute encephalopathy most likely secondary to UTI/metabolic encephalopathy: Treat the underlying cause. Nephrogenic diabetes insipidus: Currently patient has creatinine 1.72, BUN 26. Her baseline is about 1.5-1.6 with BUN around 25. Currently, it seems patient is dehydrated. IV fluid normal saline 100 mL/h for 1 L and then fluid restriction about 3 L per day 3. CKD stage III seems most rarely secondary to lithium: Follow kidney function and electrolytes. Monitor intake and output. The patient had hyponatremia and hypercalcemia in [facility] but currently sodium is 141, calcium 10.3. K4.2. 4 Recent diagnosis of primary hyperparathyroidism: 5. Bipolar disorder and euthyroid sick syndrome: Home medication reconciliation done. Laboratory Results 06/29/18 16:20: Lactic Acid 1.0 06/29/18 16:55: WBC 11.5 H, RBC 3.36 L, Hgb 10.5 L, Hct 32.6 L, MCV 97.0, MCH 31.3, MCHC 32.2, RDW 13.0, RDW Differential 43.9, Plt Count 229, MPV 8.5, Immature Gran % (Auto) 0.200, Neut % (Auto) 86.0 H, Lymph % (Auto) 6.1 L, [place] % (Auto) 7.3, Eos % (Auto) 0.3, Baso % (Auto) 0.1, Absolute Neuts (auto) 9.9 H, Absolute Lymphs (auto) 0.70 L, Total Counted Not Reportable 06/29/18 16:55: PT 13.1, INR 1.0, APTT 24.8 06/29/18 16:55: Sodium 141, Potassium 4.2, Chloride 108 H, Carbon Dioxide 28.0, Anion Gap 5, BUN 26 H, Creatinine 1.72 H, Estim Creat Clear Calc 27.78, Est GFR (MDRD) Af Amer 38 L, Est GFR (MDRD) Non-Af 31 L, BUN/Creatinine Ratio 15.1, Glucose 87, Calcium 10.3 H, Magnesium 2.6, Total Bilirubin 0.50, AST 18, ALT 26, Alkaline Phosphatase 73, Troponin I < 0.015, Total Protein 7.2, Albumin 3.7, Globulin 3.5, Albumin/Globulin Ratio 1.1, TSH 0.07 L, Free T4 1.29 06/29/18 16:55: Ethyl Alcohol < 3.0 06/29/18 16:55: Phosphorus 3.4 06/29/18 17:20: Urine Color Yellow, Urine Clarity Sl. Cloudy, Urine pH 7.0, Ur Specific [place] 1.005, Urine Protein 100 H, Urine Glucose (UA) Normal, Urine Ketones Negative, Urine Occult Blood 250 H, Urine Nitrite Negative, Urine Bilirubin Negative, Urine Urobilinogen Normal, Ur Leukocyte Esterase 500 H, Urine RBC 5-10 SEEN, Urine WBC 10-25 SEEN, Ur Squamous Epith Cells 0-5 SEEN, Urine Bacteria RARE, Urine Mucus 0 SEEN 06/29/18 17:20: Urine Opiates Screen NEGATIVE, Urine Methadone Screen NEGATIVE, Ur Barbiturates Screen NEGATIVE, Ur Phencyclidine Scrn NEGATIVE, Ur Amphetamines Screen NEGATIVE, U Methamphetamin-MDMA NEGATIVE, U Benzodiazepines Scrn NEGATIVE, Urine Cocaine Screen NEGATIVE, U Cannabinoids Screen NEGATIVE, Ur Drug Screen Comment 06/29/18 18:04: POC Glucose 92 Clinical Impression(s) from Imaging Studies Brain CT 06/29/18 16:20 IMPRESSION: No evidence of acute intracranial or calvarial abnormality or major interval change. Chest X-Ray 06/29/18 16:30 IMPRESSION: Atelectasis versus infiltrate at the right lung base without other major interval change. This note was generated with [employer] dictation software. Every effort was made to ensure accuracy, however computerized veneer sheet repairer mistakes may persist. Code Visit Inpatient E&M: 62535 Init Hosp L3
[2018-06-29 20:51] VITALS: BMI 22.1; BMI 22.5
[2018-06-29] MEDS: LORazepam 1 MG Tablet PO (21:24)
[2018-06-29 21:28] VITALS: BP 167/87; PULSE 117; RESP 22; TEMP 36.9; O2SAT 98
[2018-06-29] MEDS: OLANZapine 10 MG Tablet 20 MG PO (21:47)
[2018-06-29] MEDS: Acetaminophen 325 MG Tablet 650 MG PO (21:47)
[2018-06-29] MEDS: 0.9% Normal Saline 1,000 ML 100 ML IV (21:53)
[2018-06-29] MEDS: MELATONIN 10 MG TABLET PO (22:40)
[2018-06-29 23:00] LABS: Erythrocyte Sedimentation Rate 22 mm/hr (0-30)
[2018-06-30 04:00] VITALS: BP 129/81; PULSE 94; RESP 18; TEMP 36.6; O2SAT 97
[2018-06-30 05:14] LABS: Absolute Neutrophil Count 8.2 X10^3/uL (2.0-7.7); Basophil# 0.01 X10^3/uL; Basophil% 0.1 % (0-1); Hematocrit 30.9 % (37-47); Hemoglobin 9.8 g/dl (12.0-15.0); Mean Corp Hgb Conc 31.7 g/gl (32-36); Mean Corpuscular Hgb 31.1 pg (27.0-32.0); Mean Corpuscular Volume 98.1 fL (81-99); Mean Platelet Vol. 8.8 fl (6.2-12.0); Monocyte# 1.11 X10^3/uL; Monocyte% 11.1 % (0-10); Neutrophil # 8.19 X10^3/uL (2.7-7.7); Neutrophil % 81.6 % (47-70); Platelet Count 201 K/mm3 (150-450); RBC Distribution Width CV 13.4 % (11.6-14.6); RBC Distribution Width SD 46.1 fl (35.1-43.9); Red Blood Count 3.15 M/mm3 (4.2-5.4)
[2018-06-30] MEDS: LORazepam 1 MG Tablet PO ×2 (05:31→16:19)
[2018-06-30] MEDS: Enoxaparin 30 MG/0.3 ML Syringe SC (05:31)
[2018-06-30 05:40] LABS: POSITIVE COUNT NO; POSITIVE DIFFERENTIAL NO; POSITIVE MORPHOLOGY NO
[2018-06-30 05:41] LABS: Anion Gap 10 (5-15); BUN 25 mg/dL (7-18); BUN/Creat Ratio 14.5 RATIO (10-20); Calcium,Total 9.9 mg/dL (8.5-10.1); Chloride 114 mmol/L (98-107); Creatinine, Serum 1.73 mg/dL (0.55-1.02); EST Glomerular Filtration Rate 31 mL/min (>60); Est Glom Filt Rate - Afr Amer 38 mL/min (>60); Estimated Creatinine Clearance 27.62 ml/min; Glucose 116 mg/dL (74-106); Potassium 4.3 mmol/L (3.5-5.1); Sodium Level 148 mmol/L (136-145); T4 Free Direct 1.32 ng/dL (0.76-1.46); Thyroid Stim Hormone (TSH) 0.07 uIU/mL (0.358-3.74)
--- NOTE | 2018-06-30 06:04 | NURSING ---
Lab called - aerobic bottle showed gram (-) rods. Notified ALEXEY Hawkins primary nurse.
[2018-06-30 08:39] VITALS: BP 117/67; PULSE 100; RESP 18; TEMP 36.4; O2SAT 97
[2018-06-30] MEDS: Ferrous Sulfate 325 MG Tablet PO ×2 (08:47→16:18)
[2018-06-30] MEDS: OLANZapine 2.5 MG Tablet 5 MG PO (08:47)
[2018-06-30] MEDS: Acetaminophen 325 MG Tablet 650 MG PO (08:47)
[2018-06-30] MEDS: Polyethylene Glycol 3350 17 GM PACKET PO (08:47)
[2018-06-30] MEDS: Ceftriaxone 1 GM/50 ML BAG IV (08:47)
[2018-06-30] MEDS: Docusate Sodium 100 MG Capsule PO (08:47)
[2018-06-30] MEDS: 0.9% NaCl Peripheral Flush Adult/Peds IV ×2 (08:49→10:50)
[2018-06-30] MEDS: DESMOPRESSIN ACETATE 0.2 MG TABLET 0.1 MG PO (12:09)
[2018-06-30] MEDS: 0.45% Normal Saline 1,000 ML 75 ML IV (12:47)
--- NOTE | 2018-06-30 14:21 | PCM.PROGNOTE ---
<Chayo Del Castillo - Last Filed: 06/30/18 14:32> Patient Problems: Active and Suspected Problems UTI (urinary tract infection) (Acute) Subjective: Patient seen and examined. Complains of continued dysuria. States she is anxious. at bedside notes intermittent confusion. Patient denies fever, chills. No other current complaints. - Physical Exam General: Alert, Cooperative, No apparent distress HEENT: Atraumatic, PERRLA, EOMI, Normocephalic Neck: Supple, No JVD, Negative Carotid Bruits Lungs: Clear to auscultation, Normal air movement Cardiovascular: Regular rate, Regular Rhythm, Normal S1, Normal S2, No murmurs Abdomen: Bowel Sounds Present, Soft, Non Tender, Non-Distended Extremities: No clubbing, No cyanosis, No edema, Capillary Refill Less than 3 Seconds Skin: No rashes, No breakdown Musculoskeletal: No Tenderness to Palpation of Joints or Extremities Neurological: Cranial nerves II-XII grossly intact, Neuro grossly intact Psych/Mental Status: Anxious, Restless Vital Signs Temp Pulse Resp BP Pulse Ox 97.6 F L 100 18 117/67 97 06/30/18 08:39 06/30/18 08:39 06/30/18 08:39 06/30/18 08:39 06/30/18 08:39 Oxygen Delivery Method Room Air Weight: 133 lb 8 oz Body Mass Index (BMI) 22.1 Intake and Output for Last 24 Hours 06/28/18 06/29/18 06/30/18 23:59 23:59 23:59 Intake Total 2087 / 8 Output Total 2150 / 2150 Balance -62 / -62 Laboratory Tests Past 24 Hrs 06/30/18 06/30/18 05:05 05:05 WBC 10.0 RBC 3.15 L Hgb 9.8 L Hct 30.9 L MCV 98.1 MCH 31.1 MCHC 31.7 L RDW 13.4 RDW Differential 46.1 H Plt Count 201 MPV 8.8 Immature Gran % (Auto) 0.200 Neut % (Auto) 81.6 H Lymph % (Auto) 7.0 L [place] % (Auto) 11.1 H Eos % (Auto) 0.0 Baso % (Auto) 0.1 Absolute Neuts (auto) 8.2 H Absolute Lymphs (auto) 0.70 L Total Counted Not Reportable Sodium 148 H Potassium 4.3 Chloride 114 H Carbon Dioxide 24.0 Anion Gap 10 BUN 25 H Creatinine 1.73 H Estim Creat Clear Calc 27.62 Est GFR (MDRD) Af Amer 38 L Est GFR (MDRD) Non-Af 31 L BUN/Creatinine Ratio 14.5 Glucose 116 H Calcium 9.9 TSH 0.07 L Free T4 1.32 Medical Necessity - Tobacco Use Smoking Status: Former smoker Tobacco Use: Cigarettes Assessment/Plan All Active Problems UTI (urinary tract infection) (Acute) 1. Acute E. coli UTI-urine culture showing E. coli. Continue IV Rocephin. 2. Right lower lobe pneumonia? Patient denies cough, fever, chills. Complete course of azithromycin in addition to Rocephin empirically. Chest x-ray on admission with atelectasis versus infiltrate at the right lung base. Low suspicion for pneumonia however add azithromycin empirically as previously noted. 3. Acute metabolic encephalopathy secondary to #1-improving. 4. Primary hyperparathyroidism-stable. 5. 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 6. Sick euthyroid syndrome-stable. 7. Chronic kidney disease stage III-creatinine at baseline. Trend BMP. 8. Bipolar disorder/anxiety-continue home medication regimen including olanzapine, lorazepam, lamotrigine. 9. Iron deficiency anemia-continue home iron supplementation. Trend CBC. DVT prophylaxis-Lovenox subcu. This patient was seen by AMPARO Watt under the supervision of Dr. Moran. <Ravindra Moran E - Last Filed: 06/30/18 14:57> - Physical Exam Vital Signs Temp Pulse Resp BP Pulse Ox 98.4 F 87 18 111/69 95 06/30/18 14:33 06/30/18 14:33 06/30/18 14:33 06/30/18 14:33 06/30/18 14:33 Oxygen Delivery Method Room Air Weight: 133 lb 8 oz Body Mass Index (BMI) 22.1 Intake and Output for Last 24 Hours 06/28/18 06/29/18 06/30/18 23:59 23:59 23:59 Intake Total 2418 / 2418 Output Total 2150 / 2150 Balance 268 / 268 Laboratory Tests Past 24 Hrs 06/30/18 06/30/18 05:05 05:05 WBC 10.0 RBC 3.15 L Hgb 9.8 L Hct 30.9 L MCV 98.1 MCH 31.1 MCHC 31.7 L RDW 13.4 RDW Differential 46.1 H Plt Count 201 MPV 8.8 Immature Gran % (Auto) 0.200 Neut % (Auto) 81.6 H Lymph % (Auto) 7.0 L [place] % (Auto) 11.1 H Eos % (Auto) 0.0 Baso % (Auto) 0.1 Absolute Neuts (auto) 8.2 H Absolute Lymphs (auto) 0.70 L Total Counted Not Reportable Sodium 148 H Potassium 4.3 Chloride 114 H Carbon Dioxide 24.0 Anion Gap 10 BUN 25 H Creatinine 1.73 H Estim Creat Clear Calc 27.62 Est GFR (MDRD) Af Amer 38 L Est GFR (MDRD) Non-Af 31 L BUN/Creatinine Ratio 14.5 Glucose 116 H Calcium 9.9 TSH 0.07 L Free T4 1.32 Assessment/Plan Hospitalist note: I am seeing this patient in conjunction with Chayo Del Castillo. I independently seen and examined the patient. Progress note above, laboratory data and imaging studies reviewed and I concur with the above treatment plan. Patient Anxious and complains of nightmares. She denies any fever or chills. Denied abdominal pain, nausea vomiting. She has been having issues with bipolar disorder and she was admitted recently at psychiatric facility. Her vital signs are stable. - Physical Exam General: Alert, Oriented x3, Cooperative, anxious. HEENT: Atraumatic, PERRLA, EOMI. Neck: Supple, No JVD, Negative Carotid Bruits, Trachea Midline, Thyroid Normal. Lungs: Clear to auscultation, Normal air movement, No rhonchi, No wheeze, No rales. Cardiovascular: Regular rate, Regular Rhythm, Normal S1, Normal S2, PMI Normal. Abdomen: Bowel Sounds Present, Soft, Non Tender, Non-Distended, No Hepato-splenomegaly. Extremities: No clubbing, No cyanosis, No edema Skin: No rashes, No breakdown Neurological: Neuro grossly intact Vital Signs are stable. Assessment and plan: #1 acute cystitis: Impression revealed E. coli. She is on IV Rocephin. She has been afebrile, white blood cell count is back to normal. Blood cultures pending. #2 encephalopathy, likely because of acute cystitis. At this time, she is alert and oriented ?3. No focal deficit on exam. #3 I doubt right lower lobe pneumonia. Patient denies any cough or sputum production. Chest x-ray reviewed, revealed right lower lobe atelectasis. She is already on IV Rocephin, she was given azithromycin empirically. #4 other chronic medical problems: Continue current medications as above. This note was generated with [employer] dictation software. It may contain incorrect words, spelling, and punctuation that were not noted in checking the note before signing. Code Visit Inpatient E&M: 75006 Subs Hosp L2
[2018-06-30 14:33] VITALS: BP 111/69; PULSE 87; RESP 18; TEMP 36.9; O2SAT 95
--- NOTE | 2018-06-30 14:45 | CASEMGMT ---
ALEXEY MARTIN Face to Face with patient for initial transition planning/care coordination assessment. RN CM introduced self and role at [facility]. Patient lying in bed, alert and oriented, at bedside. Patient willing to participate in assessment and is able to answer all questions appropriately. Care providers, pharmacy, and demographics verified. See link attached. Patient wishes to discharge home, denies need for home health at this time. Patient states she has no further needs or concerns at this time. CM to follow for discharge planning needs that may arise. Disposition Plan: Patient to discharge home with family support and follow-up plans in place. Debi ARMANDO, RN, CM
[2018-06-30] MEDS: lamoTRIgine 100 MG Tablet 200 MG PO (18:14)
[2018-06-30 21:01] VITALS: BP 147/85; PULSE 95; RESP 16; TEMP 36.7; O2SAT 96
[2018-06-30] MEDS: MELATONIN 10 MG TABLET PO (21:14)
[2018-06-30] MEDS: OLANZapine 10 MG Tablet 20 MG PO (21:14)
[2018-07-01] MEDS: LORazepam 1 MG Tablet PO ×3 (00:14→17:02)
[2018-07-01] MEDS: oxyCODONE 5 MG Tablet PO (00:34)
[2018-07-01] MEDS: Haloperidol Lactate 5 MG/ML Vial 2 MG IV (01:55)
[2018-07-01 02:35] VITALS: BP 109/69; PULSE 106; RESP 18; TEMP 36.9; O2SAT 94
[2018-07-01] MEDS: 0.45% Normal Saline 1,000 ML 75 ML IV (03:08)
[2018-07-01] MEDS: Enoxaparin 30 MG/0.3 ML Syringe SC (06:19)
[2018-07-01 06:54] LABS: Absolute Lymphocyte Count 1.04 X10^3/ul (0.83-4.51); Absolute Neutrophil Count 3.4 X10^3/uL (2.0-7.7); Basophil# 0.01 X10^3/uL; Basophil% 0.2 % (0-1); Eosinophil# 0.06 X10^3/uL; Eosinophils% 1.1 % (0-5); Hematocrit 32.2 % (37-47); Hemoglobin 9.8 g/dl (12.0-15.0); Lymphocyte # 1.04 X10^3/ul (4.0); Lymphocyte % 19.4 % (19-41); Mean Corp Hgb Conc 30.4 g/gl (32-36); Mean Corpuscular Hgb 30.2 pg (27.0-32.0); Mean Corpuscular Volume 99.1 fL (81-99); Mean Platelet Vol. 9.3 fl (6.2-12.0); Monocyte# 0.81 X10^3/uL; Monocyte% 15.1 % (0-10); Neutrophil # 3.42 X10^3/uL (2.7-7.7); Platelet Count 206 K/mm3 (150-450); RBC Distribution Width CV 13.5 % (11.6-14.6); RBC Distribution Width SD 47.2 fl (35.1-43.9); Red Blood Count 3.25 M/mm3 (4.2-5.4); White Blood Count 5.4 K/mm3 (4.4-11.0)
[2018-07-01 07:01] LABS: POSITIVE COUNT NO; POSITIVE DIFFERENTIAL NO; POSITIVE MORPHOLOGY NO
[2018-07-01 07:05] LABS: Anion Gap 12 (5-15); BUN 27 mg/dL (7-18); BUN/Creat Ratio 15.3 RATIO (10-20); Calcium,Total 10.3 mg/dL (8.5-10.1); Chloride 120 mmol/L (98-107); Creatinine, Serum 1.76 mg/dL (0.55-1.02); EST Glomerular Filtration Rate 30 mL/min (>60); Est Glom Filt Rate - Afr Amer 37 mL/min (>60); Estimated Creatinine Clearance 27.15 ml/min; Glucose 104 mg/dL (74-106); Potassium 4.1 mmol/L (3.5-5.1); Sodium Level 154 mmol/L (136-145)
[2018-07-01 08:31] VITALS: BP 128/77; PULSE 108; RESP 20; TEMP 37.5; O2SAT 96
[2018-07-01] MEDS: OLANZapine 2.5 MG Tablet 5 MG PO (08:38)
[2018-07-01] MEDS: Ferrous Sulfate 325 MG Tablet PO ×2 (08:38→17:02)
[2018-07-01] MEDS: Docusate Sodium 100 MG Capsule PO (08:38)
[2018-07-01] MEDS: Polyethylene Glycol 3350 17 GM PACKET PO (08:39)
[2018-07-01] MEDS: DESMOPRESSIN ACETATE 0.2 MG TABLET 0.1 MG PO (08:39)
[2018-07-01] MEDS: lamoTRIgine 100 MG Tablet 200 MG PO (08:39)
[2018-07-01 09:45] LABS: Free T3 2.3 pg/mL (2.18-3.98)
[2018-07-01] MEDS: 0.9% NaCl Peripheral Flush Adult/Peds IV (11:42)
--- NOTE | 2018-07-01 14:38 | PCM.PROGNOTE ---
<Tyrone Espitia - Last Filed: 07/01/18 14:38> Patient Problems: Active and Suspected Problems UTI (urinary tract infection) (Acute) Subjective: Pts primary concern is that she now cannot swallow food. This apparently happens intermittently. Currently no SOB or cough. Husbands primary concern is her change in mental status which has worsened over the past weeks since discharge. She is repeating words and phrases over and over. She changes subject frequently to things that do not seem related to what I ask her. She stares straight ahead and interrupts with repetitions. states this is not a normal feature of her bipolar disorder. She has an appointment with her psychiatrist on Thursday. She has no fever or chills. She denies abdominal pain. - Physical Exam General: Alert, Oriented x3, Cooperative HEENT: Atraumatic, PERRLA, EOMI, Normocephalic Neck: Supple, No JVD, Negative Carotid Bruits Lungs: Clear to auscultation, Normal air movement Cardiovascular: Regular rate, No murmurs Abdomen: Bowel Sounds Present, Soft, Non Tender Extremities: No edema, Capillary Refill Less than 3 Seconds Skin: No rashes, No breakdown Musculoskeletal: No Tenderness to Palpation of Joints or Extremities Neurological: Cranial nerves II-XII grossly intact Psych/Mental Status: Anxious, Flat Affect, Restless, - - tangential thinking, retetitive words and phrases, anxious, but also staring straight ahead with flat affect at times. Vital Signs Temp Pulse Resp BP Pulse Ox 99.5 F H 108 H 20 H 128/77 H 96 07/01/18 08:31 07/01/18 08:31 07/01/18 08:31 07/01/18 08:31 07/01/18 08:31 Oxygen Delivery Method Room Air Weight: 133 lb 8 oz Body Mass Index (BMI) 22.1 Intake and Output for Last 24 Hours 06/29/18 06/30/18 07/01/18 23:59 23:59 23:59 Intake Total 2418 / 2418 2905 / 2905 Output Total 2150 / 2150 400 / 400 Balance 268 / 268 2505 / 2505 Laboratory Tests Past 24 Hrs 07/01/18 07/01/18 07/01/18 05:45 05:45 05:45 WBC 5.4 RBC 3.25 L Hgb 9.8 L Hct 32.2 L MCV 99.1 H MCH 30.2 MCHC 30.4 L RDW 13.5 RDW Differential 47.2 H Plt Count 206 MPV 9.3 Immature Gran % (Auto) 0.200 Neut % (Auto) 64.0 Lymph % (Auto) 19.4 [place] % (Auto) 15.1 H Eos % (Auto) 1.1 Baso % (Auto) 0.2 Absolute Neuts (auto) 3.4 Absolute Lymphs (auto) 1.04 Total Counted Not Reportable Sodium 154 H Potassium 4.1 Chloride 120 H Carbon Dioxide 22.0 Anion Gap 12 BUN 27 H Creatinine 1.76 H Estim Creat Clear Calc 27.15 Est GFR (MDRD) Af Amer 37 L Est GFR (MDRD) Non-Af 30 L BUN/Creatinine Ratio 15.3 Glucose 104 Calcium 10.3 H Thyroxine (T4) 12.0 Free T3 pg/dL 2.3 Medical Necessity - Tobacco Use Smoking Status: Former smoker Tobacco Use: Cigarettes Assessment/Plan All Active Problems UTI (urinary tract infection) (Acute) 1. Acute sepsis with bacteremia 2/2 UTI, presumed 2/2 recent indwelling bhardwaj during prior hospitalization for 24 hours urine study. E coli. Repeat blood cultures. Continue rocephin. Afebrile, leukocytosis resolved. No catheter currently. Doubt pna - CT chest with atelectasis. Dc azithro. Incentive spirometer only. No cough now, no SOB. 2. Altered mental status - acute metabolic encephalopathy 2/2 above. Defer medication change until infection clears up. CT brain negative. 3. DI - sodium fluctuant. IV fluids DCd. Recheck in AM. 4. Bipolar/Severe anxiety - symptoms currently more concerning for a component of schizophrenia - she has an appointment with her psychiatrist on thursday. She may need further PRN Haldol and ativan while here. 5. Mild anemia - mildly macrocytic. trend. Continue iron. 6. Multinodular thyroid - TSH suppressed, but T4/T3 normal. 7. CKD III - stable 8. Dysphagia - speech consult. DVT ppx: lovenox DC planning: Await repeat blood cultures. <Ravindra Moran E - Last Filed: 07/01/18 14:57> - Physical Exam Vital Signs Temp Pulse Resp BP Pulse Ox 99.5 F H 108 H 20 H 128/77 H 96 07/01/18 08:31 07/01/18 08:31 07/01/18 08:31 07/01/18 08:31 07/01/18 08:31 Oxygen Delivery Method Room Air Weight: 133 lb 8 oz Body Mass Index (BMI) 22.1 Intake and Output for Last 24 Hours 06/29/18 06/30/18 07/01/18 23:59 23:59 23:59 Intake Total 2418 / 2418 3718 / 3718 Output Total 2150 / 2150 400 / 400 Balance 268 / 268 3318 / 3318 Laboratory Tests Past 24 Hrs 07/01/18 07/01/18 07/01/18 05:45 05:45 05:45 WBC 5.4 RBC 3.25 L Hgb 9.8 L Hct 32.2 L MCV 99.1 H MCH 30.2 MCHC 30.4 L RDW 13.5 RDW Differential 47.2 H Plt Count 206 MPV 9.3 Immature Gran % (Auto) 0.200 Neut % (Auto) 64.0 Lymph % (Auto) 19.4 [place] % (Auto) 15.1 H Eos % (Auto) 1.1 Baso % (Auto) 0.2 Absolute Neuts (auto) 3.4 Absolute Lymphs (auto) 1.04 Total Counted Not Reportable Sodium 154 H Potassium 4.1 Chloride 120 H Carbon Dioxide 22.0 Anion Gap 12 BUN 27 H Creatinine 1.76 H Estim Creat Clear Calc 27.15 Est GFR (MDRD) Af Amer 37 L Est GFR (MDRD) Non-Af 30 L BUN/Creatinine Ratio 15.3 Glucose 104 Calcium 10.3 H Thyroxine (T4) 12.0 Free T3 pg/dL 2.3 Assessment/Plan Hospitalist note: I am seeing this patient in conjunction with Tyrone Espitia. I independently seen and examined the patient. Progress note above, laboratory data and imaging studies reviewed and I concur with the above treatment plan. This morning, patient's was at the bedside and she is concerned about her mental status which has been worsening lately. Patient remained repeating same words. She denied cough or sputum production. Denied chest pain or shortness of breath. Her vital signs are stable - Physical Exam General: Alert, Oriented x3, Cooperative, anxious. HEENT: Atraumatic, PERRLA, EOMI. Neck: Supple, No JVD, Negative Carotid Bruits, Trachea Midline, Thyroid Normal. Lungs: Clear to auscultation, Normal air movement, No rhonchi, No wheeze, No rales. Cardiovascular: Regular rate, Regular Rhythm, Normal S1, Normal S2, PMI Normal. Abdomen: Bowel Sounds Present, Soft, Non Tender, Non-Distended, No Hepato-splenomegaly. Extremities: No clubbing, No cyanosis, No edema Skin: No rashes, No breakdown Neurological: Neuro grossly intact Vital Signs are stable. Assessment and plan: #1 acute cystitis/sepsis: She is on IV Rocephin. Urine culture revealed E. coli as well as blood culture. She has been afebrile, vital signs blood normal. Chest x-ray done yesterday and revealed possible right lower lobe atelectasis versus infiltrate. CT scan chest without contrast done today and revealed no evidence of pneumonia. Pneumonia ruled out. Plan to continue same treatment, repeat blood culture, DC IV fluids, repeat BMP tomorrow #2 E. coli bacteremia: Evident source is the acute cystitis. She has been reviewed assessment as above. Plan: Change IV Rocephin to 2 g every 24 hours, repeat blood culture. #3 encephalopathy, likely because of acute cystitis in addition to her psychiatric problems. At this time, she is alert and oriented ?3. No focal deficit on exam. #4 other chronic medical problems: Continue current medications as above. This note was generated with [employer] dictation software. It may contain incorrect words, spelling, and punctuation that were not noted in checking the note before signing. Code Visit Inpatient E&M: 10342 Subs Hosp L2
[2018-07-01 15:02] VITALS: BP 162/94; PULSE 98; RESP 20; TEMP 37.2; O2SAT 95
[2018-07-01 21:35] VITALS: BP 159/88; PULSE 96; RESP 16; TEMP 37.3; O2SAT 95
[2018-07-01] MEDS: OLANZapine 10 MG Tablet 20 MG PO (21:54)
[2018-07-01] MEDS: MELATONIN 10 MG TABLET PO (21:54)
[2018-07-01] MEDS: Acetaminophen 325 MG Tablet 650 MG PO (21:55)
[2018-07-02] MEDS: proMETHazine 25 MG/ML Syringe 12.5 MG IV (02:51)
[2018-07-02 04:09] VITALS: BP 165/90; PULSE 101; RESP 18; TEMP 36.6; O2SAT 94
[2018-07-02] MEDS: Enoxaparin 30 MG/0.3 ML Syringe SC (05:59)
[2018-07-02 06:24] LABS: Absolute Lymphocyte Count 0.82 X10^3/ul (0.83-4.51); Absolute Neutrophil Count 3.8 X10^3/uL (2.0-7.7); Basophil# 0.01 X10^3/uL; Basophil% 0.2 % (0-1); Eosinophil# 0.02 X10^3/uL; Eosinophils% 0.4 % (0-5); Hematocrit 33.4 % (37-47); Hemoglobin 10.1 g/dl (12.0-15.0); Lymphocyte # 0.82 X10^3/ul (4.0); Lymphocyte % 15.4 % (19-41); Mean Corp Hgb Conc 30.2 g/gl (32-36); Mean Corpuscular Hgb 30.5 pg (27.0-32.0); Mean Corpuscular Volume 100.9 fL (81-99); Mean Platelet Vol. 9.2 fl (6.2-12.0); Monocyte# 0.64 X10^3/uL; Neutrophil # 3.82 X10^3/uL (2.7-7.7); Neutrophil % 71.8 % (47-70); Platelet Count 224 K/mm3 (150-450); RBC Distribution Width CV 13.6 % (11.6-14.6); RBC Distribution Width SD 48.9 fl (35.1-43.9); Red Blood Count 3.31 M/mm3 (4.2-5.4); White Blood Count 5.3 K/mm3 (4.4-11.0)
[2018-07-02 06:33] LABS: Anion Gap 9 (5-15); BUN 28 mg/dL (7-18); BUN/Creat Ratio 15.3 RATIO (10-20); Calcium,Total 10.6 mg/dL (8.5-10.1); Chloride 125 mmol/L (98-107); Creatinine, Serum 1.83 mg/dL (0.55-1.02); EST Glomerular Filtration Rate 29 mL/min (>60); Est Glom Filt Rate - Afr Amer 35 mL/min (>60); Estimated Creatinine Clearance 26.11 ml/min; Glucose 117 mg/dL (74-106); Potassium 4.4 mmol/L (3.5-5.1); Sodium Level 159 mmol/L (136-145)
[2018-07-02 06:39] LABS: POSITIVE COUNT NO; POSITIVE DIFFERENTIAL NO; POSITIVE MORPHOLOGY NO
[2018-07-02 07:59] VITALS: BP 160/93; PULSE 110; RESP 18; TEMP 36.9; O2SAT 98
[2018-07-02] MEDS: Ferrous Sulfate 325 MG Tablet PO ×2 (08:04→16:53)
[2018-07-02] MEDS: Docusate Sodium 100 MG Capsule PO (08:04)
[2018-07-02] MEDS: DESMOPRESSIN ACETATE 0.2 MG TABLET 0.1 MG PO (08:05)
[2018-07-02] MEDS: lamoTRIgine 100 MG Tablet 200 MG PO (08:05)
[2018-07-02] MEDS: Polyethylene Glycol 3350 17 GM PACKET PO (08:06)
[2018-07-02] MEDS: OLANZapine 2.5 MG Tablet 5 MG PO (08:06)
[2018-07-02] MEDS: LORazepam 1 MG Tablet PO ×2 (09:43→13:18)
[2018-07-02] MEDS: 0.45% Normal Saline 1,000 ML 100 ML IV ×2 (11:14→20:47)
--- NOTE | 2018-07-02 13:07 | PCM.PROGNOTE ---
<Tyrone Espitia - Last Filed: 07/02/18 13:07> Patient Problems: Active and Suspected Problems UTI (urinary tract infection) (Acute) Subjective: Pt continues to have severe anxiety, and difficulty sleeping. concerned that she needs additional medications. She has been switched to a modified diet for difficulty swallowing with mechanical soft, thin liquids. Still complains of pain with swallowing and SOB, however indicates that her yes and no responses may not be accurate. She has difficulty holding her urine long enough for the aid to help with the bedpan. She has no abdominal pain. She continues to stare, seems confused, repeats words and phrases over and over. - Physical Exam General: Alert, Oriented x3, Cooperative HEENT: Atraumatic, PERRLA, EOMI, Normocephalic Neck: Supple, No JVD, Negative Carotid Bruits Lungs: Clear to auscultation, Normal air movement Cardiovascular: Regular rate, No murmurs Abdomen: Bowel Sounds Present, Soft, Non Tender Extremities: No edema, Capillary Refill Less than 3 Seconds Skin: No rashes, No breakdown Musculoskeletal: No Tenderness to Palpation of Joints or Extremities Neurological: Cranial nerves II-XII grossly intact Psych/Mental Status: Anxious, Restless Vital Signs Temp Pulse Resp BP Pulse Ox 98.5 F 110 H 18 160/93 H 98 07/02/18 07:59 07/02/18 07:59 07/02/18 07:59 07/02/18 07:59 07/02/18 07:59 Oxygen Delivery Method Room Air Weight: 133 lb 8 oz Body Mass Index (BMI) 22.1 Intake and Output for Last 24 Hours 06/30/18 07/01/18 07/02/18 23:59 23:59 23:59 Intake Total 2418 / 2418 3718 / 3718 405 / 405 Output Total 2150 / 2150 400 / 400 700 / 700 Balance 268 / 268 3318 / 3318 -295 / -295 Laboratory Tests Past 24 Hrs 07/02/18 07/02/18 05:50 05:50 WBC 5.3 RBC 3.31 L Hgb 10.1 L Hct 33.4 L MCV 100.9 H MCH 30.5 MCHC 30.2 L RDW 13.6 RDW Differential 48.9 H Plt Count 224 MPV 9.2 Immature Gran % (Auto) 0.200 Neut % (Auto) 71.8 H Lymph % (Auto) 15.4 L Avery % (Auto) 12.0 H Eos % (Auto) 0.4 Baso % (Auto) 0.2 Absolute Neuts (auto) 3.8 Absolute Lymphs (auto) 0.82 L Total Counted Not Reportable Sodium 159 H Potassium 4.4 Chloride 125 H Carbon Dioxide 25.0 Anion Gap 9 BUN 28 H Creatinine 1.83 H Estim Creat Clear Calc 26.11 Est GFR (MDRD) Af Amer 35 L Est GFR (MDRD) Non-Af 29 L BUN/Creatinine Ratio 15.3 Glucose 117 H Calcium 10.6 H Medical Necessity - Tobacco Use Smoking Status: Former smoker Tobacco Use: Cigarettes Assessment/Plan All Active Problems UTI (urinary tract infection) (Acute) 1. Acute sepsis with bacteremia 2/2 UTI, presumed 2/2 recent indwelling bhardwaj during prior hospitalization for 24 hours urine study. E coli - pansensitive. Repeat blood cultures. Continue rocephin. Afebrile, leukocytosis resolved. No catheter currently. Pna ruled out. Atelectasis on CT. Continue spirometer. 2. Altered mental status - acute metabolic encephalopathy 2/2 above. Defer medication change until infection/sodium control improves. CT brain negative. 3. DI - sodium continues to increase. 1/2NS. Consult to Dr. Abrams who has seen the patient before. She is on desmopressin. 4. Bipolar/Severe anxiety - symptoms currently more concerning for a component of schizophrenia - she has an appointment with her psychiatrist on thursday. She has additional ativan to be given today for severe anxiety and prn haldol ordered. Will decrease ativan back to 1mg TID after today. 5. Mild anemia - mildly macrocytic. trend. Continue iron. 6. Multinodular thyroid - TSH suppressed, but T4/T3 normal. 7. CKD III - stable 8. Dysphagia - speech following. Continue modified diet. No pna on CT. DVT ppx: lovenox DC planning: Await repeat blood cultures. This patient was seen by Tyrone Espitia PA-C under the supervision of Dr. Moran <Ravindra Moran - Last Filed: 07/02/18 13:27> - Physical Exam Vital Signs Temp Pulse Resp BP Pulse Ox 98.5 F 110 H 18 160/93 H 98 07/02/18 07:59 07/02/18 07:59 07/02/18 07:59 07/02/18 07:59 07/02/18 07:59 Oxygen Delivery Method Room Air Weight: 133 lb 8 oz Body Mass Index (BMI) 22.1 Intake and Output for Last 24 Hours 06/30/18 07/01/18 07/02/18 23:59 23:59 23:59 Intake Total 2418 / 2418 3718 / 3718 405 / 405 Output Total 2150 / 2150 400 / 400 700 / 700 Balance 268 / 268 3318 / 3318 -295 / -295 Laboratory Tests Past 24 Hrs 07/02/18 07/02/18 05:50 05:50 WBC 5.3 RBC 3.31 L Hgb 10.1 L Hct 33.4 L MCV 100.9 H MCH 30.5 MCHC 30.2 L RDW 13.6 RDW Differential 48.9 H Plt Count 224 MPV 9.2 Immature Gran % (Auto) 0.200 Neut % (Auto) 71.8 H Lymph % (Auto) 15.4 L Avery % (Auto) 12.0 H Eos % (Auto) 0.4 Baso % (Auto) 0.2 Absolute Neuts (auto) 3.8 Absolute Lymphs (auto) 0.82 L Total Counted Not Reportable Sodium 159 H Potassium 4.4 Chloride 125 H Carbon Dioxide 25.0 Anion Gap 9 BUN 28 H Creatinine 1.83 H Estim Creat Clear Calc 26.11 Est GFR (MDRD) Af Amer 35 L Est GFR (MDRD) Non-Af 29 L BUN/Creatinine Ratio 15.3 Glucose 117 H Calcium 10.6 H Assessment/Plan Hospitalist note: I am seeing this patient in conjunction with Tyrone Espitia. I independently seen and examined the patient. Progress note above and laboratory data and I concur with the above treatment plan. She still repeating the same words and phrases again and again. She denied chest pain or shortness of breath. She has been afebrile, heart rate has been around 100, blood pressure stable, pulse ox is maintained on room air. - Physical Exam General: Alert, Oriented x3, Cooperative, anxious. HEENT: Atraumatic, PERRLA, EOMI. Neck: Supple, No JVD, Negative Carotid Bruits, Trachea Midline, Thyroid Normal. Lungs: Clear to auscultation, Normal air movement, No rhonchi, No wheeze, No rales. Cardiovascular: Regular rate, Regular Rhythm, Normal S1, Normal S2, PMI Normal. Abdomen: Bowel Sounds Present, Soft, Non Tender, Non-Distended, No Hepato-splenomegaly. Extremities: No clubbing, No cyanosis, No edema Skin: No rashes, No breakdown Neurological: Neuro grossly intact Vital Signs are stable. Assessment and plan: #1 acute cystitis/sepsis: Remains on IV Rocephin. Urine culture revealed E. coli as well as blood culture. She has been afebrile, vital signs blood normal. Chest x-ray done yesterday and revealed possible right lower lobe atelectasis versus infiltrate. CT scan chest without contrast done today and revealed no evidence of pneumonia. Pneumonia ruled out. Plan to continue same treatment, follow blood cultures. #2 E. coli bacteremia: Evident source is the acute cystitis. Blood culture revealed E. coli, sensitive to Rocephin. Repeat blood cultures pending. Plan to continue same treatment. #3 encephalopathy, likely because of acute cystitis in addition to her psychiatric problems. At this time, she is alert and oriented ?3. No focal deficit on exam. #4 diabetes insipidus: She is on desmopressin but her sodium of, BUN and creatinine as well as serum calcium is up. She is on half normal saline. Plan: Surgery consult. #4 other chronic medical problems: Continue current medications as above. This note was generated with [employer] dictation software. It may contain incorrect words, spelling, and punctuation that were not noted in checking the note before signing. Code Visit Inpatient E&M: 18098 Subs Hosp L2
[2018-07-02 13:41] VITALS: BP 122/82; PULSE 105; RESP 18; TEMP 36.6; O2SAT 94
--- NOTE | 2018-07-02 16:28 | PCM.CONS.R ---
Consultation - Renal 07/02/18 PCP/ Referring MD: Requesting physician: Dr. Moran Primary care physician: Jay Kincaid, NETWORK ENGINEER-C Reason for Consultation:: Hypernatremia and CITLALY/CKD - History of Present Illness History of Present Illness: The patient is a 68 year old F with past history of bipolar disorder, CKD stage 4, complicated metabolic history. The pt has been diagnosed recently at [facility] ([facility]) with hyperparathyroidism (unclear if primary or not) while she was admitted there between 06/15/18 to 06/25/18. She presented there because of confusion per ([place]). Pt was also diagnosed at [facility] with diabetes insipidus in the past, requiring desmopressin. However, she was diagnosed with hyponatremia during the most recent admission at [facility], and she was taken off of desmopressin. The pt was admitted to this hospital on 06/29/18 for UTI. We are asked to see the pt because of persistent hypernatremia despite hypotonic IVF. She is also followed at our office by my partner, Dr. Abrams, for CKD. Her baseline SCr appears to be around 1.5-1.8 mg/dL. History and ROS is unable to be obtained accurately due to confusion. The pt denies CP. There has been no diarrhea or edema. - Allergies Allergies: Allergies No Known Allergies Allergy (Verified 06/29/18 15:57) - Current Medications Current Medications: Current Medications Acetaminophen (Tylenol) 650 mg PO Q6H PRN PRN PRN Reason: Mild Pain (scale 0-3)/T>100.7 Last Admin: 07/01/18 21:55 Dose: 650 mg Al Hydroxide/Mg Hydroxide (Mylanta Ii) 30 ml PO Q6H PRN PRN PRN Reason: Gastric Burning Bisacodyl (Dulcolax) 10 mg RECTAL DAILY PRN PRN PRN Reason: Constipation Desmopressin Acetate (Desmopressin Acetate) 0.1 mg PO DAILY [facility] Last Admin: 07/02/18 08:05 Dose: 0.1 mg Docusate Sodium (Colace) 100 mg PO DAILY [facility] Last Admin: 07/02/18 08:04 Dose: 100 mg Enoxaparin Sodium (Lovenox) 30 mg SC DAILY@0600 [facility] Last Admin: 07/02/18 05:59 Dose: 30 mg Ergocalciferol (Vitamin D) 50,000 unit PO Q14D@1000 [facility] Last Admin: 06/30/18 18:11 Dose: 50,000 unit Ferrous Sulfate (Ferrous Sulfate) 325 mg PO BIDCM [facility] Last Admin: 07/02/18 08:04 Dose: 325 mg Haloperidol Lactate (Haldol) 2 mg IM Q4H PRN PRN PRN Reason: AGITATION Ceftriaxone Sodium 2 gm/ (Dextrose) 50 mls @ 100 mls/hr IV Q24 [facility] Last Admin: 07/02/18 09:39 Dose: 100 mls/hr Sodium Chloride () 1,000 mls @ 100 mls/hr IV .Q10H [facility] Last Admin: 07/02/18 11:14 Dose: 100 mls/hr Lamotrigine (Lamictal) 200 mg PO DAILY [facility] Last Admin: 07/02/18 08:05 Dose: 200 mg Lorazepam (Ativan) 2 mg PO TID PRN PRN Reason: ANXIETY Melatonin (Melatonin) 10 mg PO QHS [facility] Last Admin: 07/01/18 21:54 Dose: 10 mg Olanzapine (Zyprexa) 5 mg PO DAILY [facility] Last Admin: 07/02/18 08:06 Dose: 5 mg Olanzapine (Zyprexa) 20 mg PO QHS [facility] Last Admin: 07/01/18 21:54 Dose: 20 mg Ondansetron HCl (Zofran) 4 mg IV Q6H PRN PRN PRN Reason: Nausea Oxycodone HCl (Oxyir) 5 mg PO Q4H PRN PRN PRN Reason: Moderate Pain (pain scale 4-5) Last Admin: 07/01/18 00:34 Dose: 5 mg Perphenazine (Perphenazine) 4 mg PO TID [facility] Last Admin: 07/02/18 13:18 Dose: 4 mg Polyethylene Glycol (Miralax) 17 gm PO DAILY [facility] Last Admin: 07/02/18 08:06 Dose: 17 gm Promethazine HCl (Phenergan) 12.5 mg IV Q4H PRN PRN PRN Reason: NAUSEA/VOMITING Last Admin: 07/02/18 02:51 Dose: 12.5 mg Sodium Chloride () 5 - 30 ml IV UD PRN PRN Reason: SALINE FLUSH Last Admin: 07/01/18 11:42 Dose: 20 ml - 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 Patient Problems: Active and Suspected Problems UTI (urinary tract infection) (Acute) - Physical Exam General: Alert, Confused HEENT: Atraumatic, Normocephalic, TM's Clear Oral: Dry Mucosa Neck: Supple Lungs: Clear to auscultation Cardiovascular: Normal S1, Normal S2, No murmurs Abdomen: Bowel Sounds Present, Soft, Non Tender Extremities: No clubbing, No cyanosis, No edema Skin: No rashes Musculoskeletal: No Tenderness to Palpation of Joints or Extremities Vital Signs Temp Pulse Resp BP Pulse Ox 97.8 F 105 H 18 122/82 H 94 07/02/18 13:41 07/02/18 13:41 07/02/18 13:41 07/02/18 13:41 07/02/18 13:41 Oxygen Delivery Method Room Air Weight: 60.555 kg Body Mass Index (BMI) 22.1 Intake and Output for Last 24 Hours 06/30/18 07/01/18 07/02/18 23:59 23:59 23:59 Intake Total 2418 / 2418 3718 / 3718 405 / 405 Output Total 2150 / 2150 400 / 400 700 / 700 Balance 268 / 268 3318 / 3318 -295 / -295 Laboratory Tests Past 24 Hrs 07/02/18 07/02/18 05:50 05:50 WBC 5.3 RBC 3.31 L Hgb 10.1 L Hct 33.4 L MCV 100.9 H MCH 30.5 MCHC 30.2 L RDW 13.6 RDW Differential 48.9 H Plt Count 224 MPV 9.2 Immature Gran % (Auto) 0.200 Neut % (Auto) 71.8 H Lymph % (Auto) 15.4 L [place] % (Auto) 12.0 H Eos % (Auto) 0.4 Baso % (Auto) 0.2 Absolute Neuts (auto) 3.8 Absolute Lymphs (auto) 0.82 L Total Counted Not Reportable Sodium 159 H Potassium 4.4 Chloride 125 H Carbon Dioxide 25.0 Anion Gap 9 BUN 28 H Creatinine 1.83 H Estim Creat Clear Calc 26.11 Est GFR (MDRD) Af Amer 35 L Est GFR (MDRD) Non-Af 29 L BUN/Creatinine Ratio 15.3 Glucose 117 H Calcium 10.6 H Assessment/Plan All Active Problems UTI (urinary tract infection) (Acute) 1. Hypernatremia. Pt has a history of nephrogenic DI. If so, desmopressin may not help much. Monitor UOP, dialy weight and Na level. Let pt drink to quench thirst with careful monitoring of Na. Would continue hypotonic IVF. If pt is hemodynamically stable, we can change to D5W in the next 24 hrs if hypernatremia persists. Check Usom, Jaye and [facility] to see if urine can at keast be partially concentrated with desmopressin. 2. Chronic kidney disease stage 4. Followed by Dr. Abrams as outpt. She appears to be close to baseline renal function. SCr has been around 1.5-1.8 in the past. I will review Dr. Abrams's note. Continue I>O. Will check urine indices. 3. Hypercalcemia. Calcium is mildly elevated at 10.6. Check serum albumin. If serum albumin<3.5, I will check ionized calcium since hypercalcemia may be worse than we think with low albumin. Get details of work up from [facility] of what type hyperparathyroidism we are dealing with (primary vs tertiary). Continue to keep hydrated which will help keep calcium level down. 4. UTI. On ceftriaxone. 5. bipolar disorder.
[2018-07-02] MEDS: LORazepam 1 MG Tablet 2 MG PO (16:54)
[2018-07-02 18:23] LABS: Albumin, Serum 3.3 g/dL (3.2-5.0); BUN 29 mg/dL (7-18); BUN/Creat Ratio 14.1 RATIO (10-20); Calcium,Total 10.5 mg/dL (8.5-10.1); Chloride 123 mmol/L (98-107); Creatinine, Serum 2.05 mg/dL (0.55-1.02); EST Glomerular Filtration Rate 26 mL/min (>60); Est Glom Filt Rate - Afr Amer 31 mL/min (>60); Estimated Creatinine Clearance 23.31 ml/min; Glucose 125 mg/dL (74-106); Potassium 4.3 mmol/L (3.5-5.1); Sodium Level 158 mmol/L (136-145)
[2018-07-02 20:21] VITALS: BP 150/85; PULSE 96; RESP 18; TEMP 37.3; O2SAT 94
[2018-07-02] MEDS: OLANZapine 10 MG Tablet 20 MG PO (20:42)
[2018-07-02] MEDS: MELATONIN 10 MG TABLET PO (20:43)
[2018-07-03] VITALS (7 sets, daily range): BP systolic 128–167; BP diastolic 77–96; PULSE 105–117; RESP 18–20; TEMP 36.3–38.3; O2SAT 93–95
[2018-07-03] MEDS: LORazepam 1 MG Tablet 2 MG PO ×2 (01:51→09:03)
[2018-07-03] MEDS: Acetaminophen 325 MG Tablet 650 MG PO (02:30)
[2018-07-03] MEDS: proMETHazine 25 MG/ML Syringe 12.5 MG IV (02:45)
[2018-07-03] MEDS: OLANZapine 10 MG Tablet PO (03:02)
[2018-07-03] MEDS: 0.45% Normal Saline 1,000 ML 100 ML IV (06:59)
[2018-07-03] MEDS: Enoxaparin 30 MG/0.3 ML Syringe SC (06:59)
[2018-07-03 07:34] LABS: Anion Gap 10 (5-15); BUN 28 mg/dL (7-18); BUN/Creat Ratio 15.7 RATIO (10-20); Calcium,Total 9.6 mg/dL (8.5-10.1); Chloride 125 mmol/L (98-107); Creatinine, Serum 1.78 mg/dL (0.55-1.02); EST Glomerular Filtration Rate 30 mL/min (>60); Est Glom Filt Rate - Afr Amer 36 mL/min (>60); Estimated Creatinine Clearance 26.84 ml/min; Glucose 98 mg/dL (74-106); Potassium 3.9 mmol/L (3.5-5.1); Sodium Level 160 mmol/L (136-145)
[2018-07-03] MEDS: Docusate Sodium 100 MG Capsule PO (09:10)
[2018-07-03] MEDS: Ferrous Sulfate 325 MG Tablet PO ×2 (09:10→17:16)
[2018-07-03] MEDS: DESMOPRESSIN ACETATE 0.2 MG TABLET 0.1 MG PO (09:11)
[2018-07-03] MEDS: lamoTRIgine 100 MG Tablet 200 MG PO (09:12)
--- NOTE | 2018-07-03 09:25 | NURSING ---
pt soaked attends. up to bsc to toilet.
[2018-07-03 11:02] LABS: Anion Gap 10 (5-15); BUN 27 mg/dL (7-18); BUN/Creat Ratio 14.8 RATIO (10-20); Calcium,Total 9.5 mg/dL (8.5-10.1); Chloride 123 mmol/L (98-107); Creatinine, Serum 1.82 mg/dL (0.55-1.02); EST Glomerular Filtration Rate 29 mL/min (>60); Est Glom Filt Rate - Afr Amer 35 mL/min (>60); Estimated Creatinine Clearance 26.25 ml/min; Glucose 121 mg/dL (74-106); Sodium Level 158 mmol/L (136-145)
[2018-07-03] MEDS: Haloperidol Lactate 5 MG/ML Vial 2 MG IM ×3 (12:36→23:20)
--- NOTE | 2018-07-03 13:12 | PCM.PROGNOTE ---
<Tyrone Espitia - Last Filed: 07/03/18 13:12> Patient Problems: Active and Suspected Problems UTI (urinary tract infection) (Acute) Subjective: Pt more agitated and restless today. Na+ increased again. .45NS switched to d5w. Patient continues repetitious verbalizations. She has some RLQ abdominal pain. No SOB. No CP. No nausea/vom, no cough or SOB. Low urine output this AM, minimal yesterday. normal BM yesterday - Physical Exam General: Alert, Oriented x3, Cooperative HEENT: Atraumatic, PERRLA, EOMI, Normocephalic Neck: Supple, No JVD, Negative Carotid Bruits Lungs: Clear to auscultation, Normal air movement Cardiovascular: Regular rate, No murmurs, Tachycardic Abdomen: Bowel Sounds Present, Soft, Non Tender, Tender - mild RLQ tenderness to palp no guarding. Extremities: No edema, Capillary Refill Less than 3 Seconds Skin: No rashes, No breakdown Musculoskeletal: No Tenderness to Palpation of Joints or Extremities Neurological: Cranial nerves II-XII grossly intact Psych/Mental Status: Normal Affect, Appropriate, Alert and oriented to time, place, person, mood and affect Vital Signs Temp Pulse Resp BP Pulse Ox 99.0 F 117 H 20 H 145/77 H 95 07/03/18 09:17 07/03/18 11:19 07/03/18 09:17 07/03/18 09:17 07/03/18 09:17 Oxygen Delivery Method Room Air Weight: 133 lb 13.129 oz Body Mass Index (BMI) 22.1 Intake and Output for Last 24 Hours 07/01/18 07/02/18 07/03/18 23:59 23:59 23:59 Intake Total 3718 / 3718 1363 / 1363 1356 / 1356 Output Total 400 / 400 1125 / 1125 150 / 150 Balance 3318 / 3318 238 / 238 1206 / 1206 Laboratory Tests Past 24 Hrs 07/02/18 07/03/18 07/03/18 17:35 05:55 10:30 Sodium 158 H 160 H 158 H Potassium 4.3 3.9 4.0 Chloride 123 H 125 H 123 H Carbon Dioxide 25.0 25.0 25.0 Anion Gap 10 10 BUN 29 H 28 H 27 H Creatinine 2.05 H 1.78 H 1.82 H Estim Creat Clear Calc 23.31 26.84 26.25 Est GFR (MDRD) Af Amer 31 L 36 L 35 L Est GFR (MDRD) Non-Af 26 L 30 L 29 L BUN/Creatinine Ratio 14.1 15.7 14.8 Glucose 125 H 98 121 H Calcium 10.5 H 9.6 9.5 Phosphorus 3.0 Albumin 3.3 Medical Necessity - Tobacco Use Smoking Status: Former smoker Tobacco Use: Cigarettes Assessment/Plan All Active Problems UTI (urinary tract infection) (Acute) 1. Acute sepsis with bacteremia 2/2 UTI, presumed 2/2 recent indwelling bhardwaj during prior hospitalization for 24 hours urine study. E coli - pansensitive. Repeat blood cultures. Continue rocephin. Afebrile, leukocytosis resolved. No catheter currently. Pna ruled out. Atelectasis on CT. Continue spirometer. -Fever persists however rocephin should be covering E coli. Repeat BCx pending. 2. Altered mental status - acute metabolic encephalopathy 2/2 above. Defer medication change until infection/sodium control improves. CT brain negative. 3. Hypernatremia, DI - renal following. Changed fluids to d5w. on desmopressin. Suspected nephrogenic. consider hctz. Calcium has decreased. 4. Bipolar/Severe anxiety - more agitated possibly 2/2 #3. symptoms currently more concerning for a component of schizophrenia - she has an appointment with her psychiatrist on thursday. She has additional ativan to be given today for severe anxiety and prn haldol ordered. Will decrease ativan back to 1mg TID after today. 5. Mild anemia - mildly macrocytic. trend. Continue iron. 6. Multinodular thyroid - TSH suppressed, but T4/T3 normal. 7. CKD IV - stable at baseline 8. Dysphagia - speech following. Continue modified diet. No pna on CT. DVT ppx: lovenox DC planning: Await repeat blood cultures. This patient was seen by Tyrone Espitia PA-C under the supervision of Dr. Moran <Ravindra Moran - Last Filed: 07/03/18 14:07> - Physical Exam Vital Signs Temp Pulse Resp BP Pulse Ox 99.0 F 117 H 20 H 145/77 H 95 07/03/18 09:17 07/03/18 11:19 07/03/18 09:17 07/03/18 09:17 07/03/18 09:17 Oxygen Delivery Method Room Air Weight: 133 lb 13.129 oz Body Mass Index (BMI) 22.1 Intake and Output for Last 24 Hours 07/01/18 07/02/18 07/03/18 23:59 23:59 23:59 Intake Total 3718 / 3718 1363 / 1363 1356 / 1356 Output Total 400 / 400 1125 / 1125 150 / 150 Balance 3318 / 3318 238 / 238 1206 / 1206 Laboratory Tests Past 24 Hrs 07/02/18 07/03/18 07/03/18 17:35 05:55 10:30 Sodium 158 H 160 H 158 H Potassium 4.3 3.9 4.0 Chloride 123 H 125 H 123 H Carbon Dioxide 25.0 25.0 25.0 Anion Gap 10 10 BUN 29 H 28 H 27 H Creatinine 2.05 H 1.78 H 1.82 H Estim Creat Clear Calc 23.31 26.84 26.25 Est GFR (MDRD) Af Amer 31 L 36 L 35 L Est GFR (MDRD) Non-Af 26 L 30 L 29 L BUN/Creatinine Ratio 14.1 15.7 14.8 Glucose 125 H 98 121 H Calcium 10.5 H 9.6 9.5 Phosphorus 3.0 Magnesium Albumin 3.3 07/03/18 10:30 Sodium Potassium Chloride Carbon Dioxide Anion Gap BUN Creatinine Estim Creat Clear Calc Est GFR (MDRD) Af Amer Est GFR (MDRD) Non-Af BUN/Creatinine Ratio Glucose Calcium Phosphorus Magnesium 2.8 H Albumin Assessment/Plan Hospitalist note: I am seeing this patient in conjunction with Tyrone Espitia. I independently seen and examined the patient. Progress note above and laboratory data and I concur with the above treatment plan. Today, patient is more anxious and restless. Her sodium went up to 160. She denied chest pain or shortness of breath. Denied nausea vomiting. She had a spike of low-grade fever earlier this morning, heart rate has been around 110s, blood pressure stable and pulse ox is maintained on room air. - Physical Exam General: Alert, Oriented x3, Cooperative, anxious. HEENT: Atraumatic, PERRLA, EOMI. Neck: Supple, No JVD, Negative Carotid Bruits, Trachea Midline, Thyroid Normal. Lungs: Clear to auscultation, Normal air movement, No rhonchi, No wheeze, No rales. Cardiovascular: Regular rate, Regular Rhythm, Normal S1, Normal S2, PMI Normal, tachycardia. Abdomen: Bowel Sounds Present, Soft, Non Tender, Non-Distended, No Hepato-splenomegaly. Extremities: No clubbing, No cyanosis, No edema Skin: No rashes, No breakdown Neurological: Neuro grossly intact Vital Signs are stable. Assessment and plan: #1 acute cystitis/sepsis: Remains on IV Rocephin. Urine culture revealed E. coli as well as blood culture. She had a spike of low-grade fever earlier this morning, vital signs blood normal. Pneumonia ruled out. Repeat blood cultures pending. #2 E. coli bacteremia: Evident source is the acute cystitis. Blood culture revealed E. coli, sensitive to Rocephin. Repeat blood cultures pending. Plan to continue same treatment. #3 hypernatremia/diabetes insipidus: Serum sodium continued to increase, this morning it was 160. Her serum creatinine down to 1.78. IV fluid changed to D5 water, plan to do BMP every 4 hours. Nephrology consulted. She is on desmopressin. #4 encephalopathy, likely because of acute cystitis in addition to her psychiatric problems. At this time, she is alert and oriented ?3. No focal deficit on exam. #5 other chronic medical problems: Continue current medications as above. This note was generated with [employer] software. It may contain incorrect words, spelling, and punctuation that were not noted in checking the note before signing. Code Visit Inpatient E&M: 05805 Subs Hosp L2
--- NOTE | 2018-07-03 13:31 | NURSING ---
Pt is very restless all morning. Did settle down after Ativan was given for about one hour. Pt keeps asking to toilet. Just recently up, voided 200ml and has to pee again. Tomás, RESPIRATORY THERAPIST ASSISTANT/Tech bladder scanned pt for 12ml. Despite that pt still asking to urinate.
[2018-07-03 13:38] LABS: Magnesium 2.8 mg/dL (1.6-2.6)
[2018-07-03 14:44] LABS: Anion Gap 11 (5-15); BUN 24 mg/dL (7-18); BUN/Creat Ratio 12.1 RATIO (10-20); Calcium,Total 9.3 mg/dL (8.5-10.1); Chloride 120 mmol/L (98-107); Creatinine, Serum 1.99 mg/dL (0.55-1.02); EST Glomerular Filtration Rate 26 mL/min (>60); Est Glom Filt Rate - Afr Amer 32 mL/min (>60); Estimated Creatinine Clearance 24.01 ml/min; Glucose 188 mg/dL (74-106); Potassium 3.9 mmol/L (3.5-5.1); Sodium Level 154 mmol/L (136-145)
[2018-07-03] MEDS: LORazepam 1 MG Tablet PO (17:06)
[2018-07-03 18:08] LABS: Anion Gap 11 (5-15); BUN 24 mg/dL (7-18); BUN/Creat Ratio 13.2 RATIO (10-20); Calcium,Total 9.6 mg/dL (8.5-10.1); Chloride 120 mmol/L (98-107); Creatinine, Serum 1.82 mg/dL (0.55-1.02); EST Glomerular Filtration Rate 29 mL/min (>60); Est Glom Filt Rate - Afr Amer 35 mL/min (>60); Estimated Creatinine Clearance 26.25 ml/min; Glucose 133 mg/dL (74-106); Potassium 4.3 mmol/L (3.5-5.1); Sodium Level 155 mmol/L (136-145)
[2018-07-03] MEDS: Glucerna Shake 120 ML LIQUID PO (18:37)
--- NOTE | 2018-07-03 19:29 | NURSING ---
Pt has been drinking poorly and poor appetite. This nurse called and texted Tyrone Capone this information and asked him if he still wanted to stop the fluids. Ordered by Tyrone to stop fluids until next Sodium level is checked. Kerri BLACKBURN aware of this.
[2018-07-03] MEDS: oxyCODONE 5 MG Tablet PO (20:31)
[2018-07-03 21:17] LABS: Osmolality, Urine 172 mOsm/KG; Urine Sodium 39 mmol/L (Not Establ.)
[2018-07-03] MEDS: OLANZapine 10 MG Tablet 20 MG PO (21:29)
[2018-07-03] MEDS: MELATONIN 10 MG TABLET PO (21:30)
--- NOTE | 2018-07-03 21:55 | PCM.PN.REN ---
Patient Problems: Active and Suspected Problems UTI (urinary tract infection) (Acute) Subjective: Following for hypernatremia and CKD. Pt denies CP, SOB or nausea. - Physical Exam General: Alert, Cooperative HEENT: Atraumatic, TM's Clear Oral: Dry Mucosa Neck: Supple Lungs: Clear to auscultation Cardiovascular: Normal S1, Normal S2, No murmurs Abdomen: Soft, Non Tender Extremities: No edema Vital Signs Temp Pulse Resp BP Pulse Ox 98.8 F 110 H 20 H 154/96 H 95 07/03/18 20:38 07/03/18 20:38 07/03/18 20:38 07/03/18 20:38 07/03/18 20:38 Oxygen Delivery Method Room Air Weight: 60.7 kg Body Mass Index (BMI) 22.1 Intake and Output for Last 24 Hours 07/01/18 07/02/18 07/03/18 23:59 23:59 23:59 Intake Total 3718 / 3718 1363 / 1363 1356 / 1356 Output Total 400 / 400 1125 / 1125 150 / 150 Balance 3318 / 3318 238 / 238 1206 / 1206 Microbiology Past 72 Hours 07/01/18 09:35 Blood Culture - Preliminary Blood Culture (Wb) - Left Hand No growth in 48 hours. 07/01/18 09:30 Blood Culture - Preliminary Blood Culture (Wb) - Left Hand No growth in 48 hours. Laboratory Tests Past 24 Hrs 07/03/18 07/03/18 07/03/18 05:55 10:30 10:30 Sodium 160 H 158 H Potassium 3.9 4.0 Chloride 125 H 123 H Carbon Dioxide 25.0 25.0 Anion Gap 10 10 BUN 28 H 27 H Creatinine 1.78 H 1.82 H Estim Creat Clear Calc 26.84 26.25 Est GFR (MDRD) Af Amer 36 L 35 L Est GFR (MDRD) Non-Af 30 L 29 L BUN/Creatinine Ratio 15.7 14.8 Glucose 98 121 H Calcium 9.6 9.5 Magnesium 2.8 H Urine Osmolality Ur Random Sodium Urine Creatinine Urine Potassium 07/03/18 07/03/18 07/03/18 14:03 17:32 20:33 Sodium 154 H 155 H Potassium 3.9 4.3 Chloride 120 H 120 H Carbon Dioxide 23.0 24.0 Anion Gap 11 11 BUN 24 H 24 H Creatinine 1.99 H 1.82 H Estim Creat Clear Calc 24.01 26.25 Est GFR (MDRD) Af Amer 32 L 35 L Est GFR (MDRD) Non-Af 26 L 29 L BUN/Creatinine Ratio 12.1 13.2 Glucose 188 H 133 H Calcium 9.3 9.6 Magnesium Urine Osmolality 172 Ur Random Sodium 39 Urine Creatinine Urine Potassium 13.0 07/03/18 20:33 Sodium Potassium Chloride Carbon Dioxide Anion Gap BUN Creatinine Estim Creat Clear Calc Est GFR (MDRD) Af Amer Est GFR (MDRD) Non-Af BUN/Creatinine Ratio Glucose Calcium Magnesium Urine Osmolality Ur Random Sodium Urine Creatinine 25.90 Urine Potassium Medical Necessity - Tobacco Use Smoking Status: Former smoker Tobacco Use: Cigarettes Assessment/Plan All Active Problems UTI (urinary tract infection) (Acute) 1. Hypernatremia. Pt has a history of nephrogenic DI. If so, desmopressin may not help much. Uosm is 171, so she can only partially concentrate urine even with desmopressin. This is c/w nephrogenic DI. Agree with changing IVF to D5W. Let pt drink. Monitor UOP, daily weight and Na level. 2. Chronic kidney disease stage 4. Followed by Dr. Abrams as outpt. She appears to be close to baseline renal function. SCr has been around 1.5-1.8 in the past. Continue I>O. Continue IVF. Monitor renal function. 3. Hypercalcemia. Calcium was mildly elevated at 10.6. Calcium is better today. Continue IVF. Get details of work up from [facility] of what type hyperparathyroidism we are dealing with (primary vs tertiary). Continue to keep hydrated which will help keep calcium level down. 4. UTI. On ceftriaxone. 5. bipolar disorder.
[2018-07-03 22:43] LABS: Anion Gap 8 (5-15); BUN 22 mg/dL (7-18); BUN/Creat Ratio 12.3 RATIO (10-20); Calcium,Total 9.1 mg/dL (8.5-10.1); Chloride 123 mmol/L (98-107); Creatinine, Serum 1.79 mg/dL (0.55-1.02); EST Glomerular Filtration Rate 30 mL/min (>60); Est Glom Filt Rate - Afr Amer 36 mL/min (>60); Estimated Creatinine Clearance 26.69 ml/min; Glucose 117 mg/dL (74-106); Potassium 3.7 mmol/L (3.5-5.1); Sodium Level 156 mmol/L (136-145)
[2018-07-03] MEDS: 0.9% NaCl Peripheral Flush Adult/Peds IV (23:16)
[2018-07-04] MEDS: LORazepam 1 MG Tablet PO ×3 (05:06→22:21)
[2018-07-04] MEDS: Enoxaparin 30 MG/0.3 ML Syringe SC (05:06)
[2018-07-04 06:38] LABS: Anion Gap 9 (5-15); BUN 21 mg/dL (7-18); BUN/Creat Ratio 11.9 RATIO (10-20); Calcium,Total 9.7 mg/dL (8.5-10.1); Chloride 123 mmol/L (98-107); Creatinine, Serum 1.76 mg/dL (0.55-1.02); EST Glomerular Filtration Rate 30 mL/min (>60); Est Glom Filt Rate - Afr Amer 37 mL/min (>60); Estimated Creatinine Clearance 27.15 ml/min; Glucose 108 mg/dL (74-106); Potassium 4.1 mmol/L (3.5-5.1); Sodium Level 158 mmol/L (136-145)
[2018-07-04 08:26] VITALS: BP 156/100; PULSE 103; RESP 22; TEMP 38.1; O2SAT 93
[2018-07-04] MEDS: Ferrous Sulfate 325 MG Tablet PO (08:34)
[2018-07-04 08:35] VITALS: PULSE 103
[2018-07-04] MEDS: Docusate Sodium 100 MG Capsule PO (08:35)
[2018-07-04] MEDS: DESMOPRESSIN ACETATE 0.2 MG TABLET 0.1 MG PO (08:35)
[2018-07-04] MEDS: lamoTRIgine 100 MG Tablet 200 MG PO (08:36)
[2018-07-04] MEDS: OLANZapine 10 MG Tablet PO (08:37)
[2018-07-04] MEDS: Glucerna Shake 120 ML LIQUID PO ×3 (08:39→22:21)
[2018-07-04 10:00] VITALS: BP 146/78; PULSE 107; RESP 22; TEMP 37.7; O2SAT 96
[2018-07-04 10:57] LABS: Sodium Level 155 mmol/L (136-145)
--- NOTE | 2018-07-04 12:31 | PCM.PROGNOTE ---
<Tyrone Espitia - Last Filed: 07/04/18 12:31> Patient Problems: Active and Suspected Problems UTI (urinary tract infection) (Acute) Subjective: Pt still intermittently febrile despite abx and negative cultures. No new cough/SOB but has been in bed most of admission. She is incontinent of urine. She still continues to drink very little and I have reemphasized the need to increase water consumption at this point. feels she is somewhat less agitated. - Physical Exam General: Alert, Oriented x3, Cooperative HEENT: Atraumatic, PERRLA, EOMI, Normocephalic Neck: Supple, No JVD, Negative Carotid Bruits Lungs: Clear to auscultation, Normal air movement Cardiovascular: Regular rate, No murmurs Abdomen: Bowel Sounds Present, Soft, Non Tender Extremities: No edema, Capillary Refill Less than 3 Seconds Skin: No rashes, No breakdown Musculoskeletal: No Tenderness to Palpation of Joints or Extremities Neurological: Cranial nerves II-XII grossly intact Psych/Mental Status: Anxious, Alert and oriented to time, place, person, mood and affect Vital Signs Temp Pulse Resp BP Pulse Ox 99.9 F H 107 H 22 H 146/78 H 96 07/04/18 10:00 07/04/18 10:00 07/04/18 10:00 07/04/18 10:00 07/04/18 10:00 Oxygen Delivery Method Room Air Weight: 131 lb 9.855 oz Body Mass Index (BMI) 22.1 Intake and Output for Last 24 Hours 07/02/18 07/03/18 07/04/18 23:59 23:59 23:59 Intake Total 1363 / 1363 1416 / 1416 2303 / 2303 Output Total 1125 / 1125 150 / 150 250 / 250 Balance 238 / 238 1266 / 1266 2053 / 2053 Microbiology Past 72 Hours 07/01/18 09:35 Blood Culture - Preliminary Blood Culture (Wb) - Left Hand No growth in 48 hours. 07/01/18 09:30 Blood Culture - Preliminary Blood Culture (Wb) - Left Hand No growth in 48 hours. Laboratory Tests Past 24 Hrs 07/03/18 07/03/18 07/03/18 10:30 14:03 17:32 Sodium 154 H 155 H Potassium 3.9 4.3 Chloride 120 H 120 H Carbon Dioxide 23.0 24.0 Anion Gap 11 11 BUN 24 H 24 H Creatinine 1.99 H 1.82 H Estim Creat Clear Calc 24.01 26.25 Est GFR (MDRD) Af Amer 32 L 35 L Est GFR (MDRD) Non-Af 26 L 29 L BUN/Creatinine Ratio 12.1 13.2 Glucose 188 H 133 H Calcium 9.3 9.6 Magnesium 2.8 H Urine Osmolality Ur Random Sodium Urine Creatinine Urine Potassium 07/03/18 07/03/18 07/03/18 20:33 20:33 22:15 Sodium 156 H Potassium 3.7 Chloride 123 H Carbon Dioxide 25.0 Anion Gap 8 BUN 22 H Creatinine 1.79 H Estim Creat Clear Calc 26.69 Est GFR (MDRD) Af Amer 36 L Est GFR (MDRD) Non-Af 30 L BUN/Creatinine Ratio 12.3 Glucose 117 H Calcium 9.1 Magnesium Urine Osmolality 172 Ur Random Sodium 39 Urine Creatinine 25.90 Urine Potassium 13.0 07/04/18 07/04/18 05:55 10:35 Sodium 158 H 155 H Potassium 4.1 Chloride 123 H Carbon Dioxide 26.0 Anion Gap 9 BUN 21 H Creatinine 1.76 H Estim Creat Clear Calc 27.15 Est GFR (MDRD) Af Amer 37 L Est GFR (MDRD) Non-Af 30 L BUN/Creatinine Ratio 11.9 Glucose 108 H Calcium 9.7 Magnesium Urine Osmolality Ur Random Sodium Urine Creatinine Urine Potassium Medical Necessity - Tobacco Use Smoking Status: Former smoker Tobacco Use: Cigarettes Assessment/Plan All Active Problems UTI (urinary tract infection) (Acute) 1. Acute sepsis with bacteremia 2/2 UTI, presumed 2/2 recent indwelling bhardwaj during prior hospitalization for 24 hours urine study. E coli - pansensitive. Repeat blood cultures. Continue rocephin. Afebrile, leukocytosis resolved. No catheter currently. Pna ruled out. Atelectasis on CT. Continue spirometer. -Repeat blood cultures negative. -Fever persists however rocephin should be covering E coli. -Repeat CXR 2. Altered mental status - acute metabolic encephalopathy 2/2 above. Defer medication change until infection/sodium control improves. CT brain negative. 3. Hypernatremia, DI - renal following. d52, q4h serum sodium. Pt not drinking much at all. 4. Bipolar/Severe anxiety - more agitated possibly 2/2 #3. symptoms currently more concerning for a component of schizophrenia - she has an appointment with her psychiatrist on thursday. She has additional ativan to be given today for severe anxiety and prn haldol ordered. Will decrease ativan back to 1mg TID after today. 5. Mild anemia - mildly macrocytic. trend. Continue iron. 6. Multinodular thyroid - TSH suppressed, but T4/T3 normal. 7. CKD IV - stable at baseline 8. Dysphagia - speech following. Continue modified diet. No pna on CT. DVT ppx: lovenox DC planning: pending sodium correction. This patient was seen by Tyrone Espitia PA-C under the supervision of Dr. Moran <Ravindra Moran - Last Filed: 07/04/18 14:39> - Physical Exam Vital Signs Temp Pulse Resp BP Pulse Ox 99.9 F H 107 H 22 H 146/78 H 96 07/04/18 10:00 07/04/18 10:00 07/04/18 10:00 07/04/18 10:00 07/04/18 10:00 Oxygen Delivery Method Room Air Weight: 131 lb 9.855 oz Body Mass Index (BMI) 22.1 Intake and Output for Last 24 Hours 07/02/18 07/03/18 07/04/18 23:59 23:59 23:59 Intake Total 1363 / 1363 1416 / 1416 2303 / 2303 Output Total 1125 / 1125 150 / 150 250 / 250 Balance 238 / 238 1266 / 1266 205 / 205 Microbiology Past 72 Hours 07/01/18 09:35 Blood Culture - Preliminary Blood Culture (Wb) - Left Hand No growth in 48 hours. 07/01/18 09:30 Blood Culture - Preliminary Blood Culture (Wb) - Left Hand No growth in 48 hours. Laboratory Tests Past 24 Hrs 07/03/18 07/03/18 07/03/18 14:03 17:32 20:33 Sodium 154 H 155 H Potassium 3.9 4.3 Chloride 120 H 120 H Carbon Dioxide 23.0 24.0 Anion Gap 11 11 BUN 24 H 24 H Creatinine 1.99 H 1.82 H Estim Creat Clear Calc 24.01 26.25 Est GFR (MDRD) Af Amer 32 L 35 L Est GFR (MDRD) Non-Af 26 L 29 L BUN/Creatinine Ratio 12.1 13.2 Glucose 188 H 133 H Calcium 9.3 9.6 Urine Osmolality 172 Ur Random Sodium 39 Urine Creatinine Urine Potassium 13.0 07/03/18 07/03/18 07/04/18 20:33 22:15 05:55 Sodium 156 H 158 H Potassium 3.7 4.1 Chloride 123 H 123 H Carbon Dioxide 25.0 26.0 Anion Gap 8 9 BUN 22 H 21 H Creatinine 1.79 H 1.76 H Estim Creat Clear Calc 26.69 27.15 Est GFR (MDRD) Af Amer 36 L 37 L Est GFR (MDRD) Non-Af 30 L 30 L BUN/Creatinine Ratio 12.3 11.9 Glucose 117 H 108 H Calcium 9.1 9.7 Urine Osmolality Ur Random Sodium Urine Creatinine 25.90 Urine Potassium 07/04/18 07/04/18 10:35 14:00 Sodium 155 H 151 H Potassium Chloride Carbon Dioxide Anion Gap BUN Creatinine Estim Creat Clear Calc Est GFR (MDRD) Af Amer Est GFR (MDRD) Non-Af BUN/Creatinine Ratio Glucose Calcium Urine Osmolality Ur Random Sodium Urine Creatinine Urine Potassium Assessment/Plan Hospitalist note: I am seeing this patient in conjunction with Tyrone Espitia. I independently seen and examined the patient. Progress note above and laboratory data and I concur with the above treatment plan. Today, patient denies any new symptoms. She is still repeating the same was again again. She is barely drinking very little of water. His sodium started to come down but this morning, it is back up again. She has been having spikes of low-grade fever, heart rate has been around 100, other vital signs are stable. - Physical Exam General: Alert, Oriented x3, Cooperative, anxious. HEENT: Atraumatic, PERRLA, EOMI. Neck: Supple, No JVD, Negative Carotid Bruits, Trachea Midline, Thyroid Normal. Lungs: Clear to auscultation, Normal air movement, No rhonchi, No wheeze, No rales. Cardiovascular: Regular rate, Regular Rhythm, Normal S1, Normal S2, PMI Normal, tachycardia. Abdomen: Bowel Sounds Present, Soft, Non Tender, Non-Distended, No Hepato-splenomegaly. Extremities: No clubbing, No cyanosis, No edema Skin: No rashes, No breakdown Neurological: Neuro grossly intact Vital Signs are stable. Assessment and plan: #1 acute cystitis/sepsis: Remains on IV Rocephin. Urine culture revealed E. coli as well as blood culture. She had a spike of low-grade fever earlier this morning, vital signs blood normal. Pneumonia ruled out. Repeat blood cultures showed no growth in 48 hours. #2 E. coli bacteremia: Evident source is the acute cystitis. Blood culture revealed E. coli, sensitive to Rocephin. Repeat blood cultures showed no growth in 48 hours plan to continue same treatment. #3 hypernatremia/diabetes insipidus: Serum sodium came down to 154 yesterday but it is up again to 158 this morning.. Her serum creatinine down to 1.76. She is on D5 water IV fluids, nephrology the case, plan to do BMP every 4 hours. #4 encephalopathy, likely because of acute cystitis in addition to her psychiatric problems. No focal deficit on exam. #5 other chronic medical problems: Continue current medications as above. This note was generated with [employer] dictation software. It may contain incorrect words, spelling, and punctuation that were not noted in checking the note before signing. Code Visit Inpatient E&M: 32754 Subs Hosp L2
[2018-07-04 14:28] LABS: Sodium Level 151 mmol/L (136-145)
[2018-07-04 15:01] VITALS: BP 145/83; PULSE 92; RESP 21; TEMP 36.6; O2SAT 96
[2018-07-04 15:44] VITALS: PULSE 92
--- NOTE | 2018-07-04 15:50 | NURSING ---
This nurse called Dr. Lucia and informed him of Sodium levels at 1100 today and at 1400 today. Orders to decrease fluids to 125ml.hr
[2018-07-04] MEDS: proMETHazine 25 MG/ML Syringe 12.5 MG IV (16:23)
[2018-07-04] MEDS: 0.9% NaCl Peripheral Flush Adult/Peds IV (16:23)
[2018-07-04] MEDS: oxyCODONE 5 MG Tablet PO (17:43)
[2018-07-04 18:02] LABS: Sodium Level 152 mmol/L (136-145)
--- NOTE | 2018-07-04 18:10 | NURSING ---
up to [facility]. brushed teeth w/assistance from this RN. Assisted back to bed.
[2018-07-04] MEDS: Haloperidol Lactate 5 MG/ML Vial 2 MG IM (19:54)
[2018-07-04 20:03] VITALS: BP 149/88; PULSE 92; RESP 20; TEMP 36.9; O2SAT 95
--- NOTE | 2018-07-04 20:36 | PCM.PN.REN ---
Patient Problems: Active and Suspected Problems UTI (urinary tract infection) (Acute) Subjective: Following for hypernatremia, CKD and hypercalcemia. Pt is more calm. Just received Haldol. No CP, SOB or edema. - Physical Exam General: Alert, Oriented x3 HEENT: Atraumatic Oral: Moist Mucosa Neck: Supple Lungs: Clear to auscultation Cardiovascular: Normal S1, Normal S2, No murmurs Abdomen: Soft, Non Tender, Non-Distended Extremities: No edema Vital Signs Temp Pulse Resp BP Pulse Ox 98.4 F 92 20 H 149/88 H 95 07/04/18 20:03 07/04/18 20:03 07/04/18 20:03 07/04/18 20:03 07/04/18 20:03 Oxygen Delivery Method Room Air Weight: 59.7 kg Body Mass Index (BMI) 22.1 Intake and Output for Last 24 Hours 07/02/18 07/03/18 07/04/18 23:59 23:59 23:59 Intake Total 1363 / 1363 1416 / 1416 2303 / 2303 Output Total 1125 / 1125 150 / 150 550 / 550 Balance 238 / 238 1266 / 1266 1753 / 1753 Microbiology Past 72 Hours 07/01/18 09:35 Blood Culture - Preliminary Blood Culture (Wb) - Left Hand No growth in 48 hours. 07/01/18 09:30 Blood Culture - Preliminary Blood Culture (Wb) - Left Hand No growth in 48 hours. Laboratory Tests Past 24 Hrs 07/03/18 07/03/18 07/03/18 20:33 20:33 22:15 Sodium 156 H Potassium 3.7 Chloride 123 H Carbon Dioxide 25.0 Anion Gap 8 BUN 22 H Creatinine 1.79 H Estim Creat Clear Calc 26.69 Est GFR (MDRD) Af Amer 36 L Est GFR (MDRD) Non-Af 30 L BUN/Creatinine Ratio 12.3 Glucose 117 H Calcium 9.1 Urine Osmolality 172 Ur Random Sodium 39 Urine Creatinine 25.90 Urine Potassium 13.0 07/04/18 07/04/18 07/04/18 05:55 10:35 14:00 Sodium 158 H 155 H 151 H Potassium 4.1 Chloride 123 H Carbon Dioxide 26.0 Anion Gap 9 BUN 21 H Creatinine 1.76 H Estim Creat Clear Calc 27.15 Est GFR (MDRD) Af Amer 37 L Est GFR (MDRD) Non-Af 30 L BUN/Creatinine Ratio 11.9 Glucose 108 H Calcium 9.7 Urine Osmolality Ur Random Sodium Urine Creatinine Urine Potassium 07/04/18 17:35 Sodium 152 H Potassium Chloride Carbon Dioxide Anion Gap BUN Creatinine Estim Creat Clear Calc Est GFR (MDRD) Af Amer Est GFR (MDRD) Non-Af BUN/Creatinine Ratio Glucose Calcium Urine Osmolality Ur Random Sodium Urine Creatinine Urine Potassium Medical Necessity - Tobacco Use Smoking Status: Former smoker Tobacco Use: Cigarettes Assessment/Plan All Active Problems UTI (urinary tract infection) (Acute) 1. Hypernatremia. Pt has a history of nephrogenic DI. If so, desmopressin may not help much. Uosm is 171, so she can only partially concentrate urine even with desmopressin. This is c/w nephrogenic DI. Agree with changing IVF to D5W. Continue D5W until her oral intake is more consistent. Goal is to decrease Na by about 8 mEq/L/day. Monitor UOP, daily weight and Na level. 2. Chronic kidney disease stage 4. Followed by Dr. Abrams as outpt. She appears to be close to baseline renal function. SCr has been around 1.5-1.8 in the past. Continue I>O. Continue IVF. Monitor renal function. 3. Hypercalcemia. Calcium was mildly elevated at 10.6 on 07/02/18. Calcium is stable today. Continue IVF. Get details of work up from [facility] of what type hyperparathyroidism we are dealing with (primary vs tertiary). Continue to keep hydrated which will help keep calcium level down. 4. UTI. On ceftriaxone. 5. bipolar disorder.
[2018-07-04] MEDS: OLANZapine 10 MG Tablet 20 MG PO (22:21)
[2018-07-04] MEDS: MELATONIN 10 MG TABLET PO (22:21)
[2018-07-04 22:28] LABS: Sodium Level 149 mmol/L (136-145)
[2018-07-05 02:35] LABS: Sodium Level 143 mmol/L (136-145)
[2018-07-05 03:33] VITALS: BP 127/83; PULSE 102; RESP 20; TEMP 36.6; O2SAT 94
[2018-07-05] MEDS: Haloperidol Lactate 5 MG/ML Vial 2 MG IM ×2 (03:51→22:18)
[2018-07-05] MEDS: 0.9% NaCl Peripheral Flush Adult/Peds IV ×2 (03:52→10:54)
[2018-07-05] MEDS: LORazepam 1 MG Tablet PO ×3 (05:35→17:09)
[2018-07-05] MEDS: Enoxaparin 30 MG/0.3 ML Syringe SC (05:35)
[2018-07-05 06:07] LABS: Anion Gap 11 (5-15); BUN 16 mg/dL (7-18); BUN/Creat Ratio 10.2 RATIO (10-20); Calcium,Total 8.9 mg/dL (8.5-10.1); Chloride 112 mmol/L (98-107); Creatinine, Serum 1.57 mg/dL (0.55-1.02); EST Glomerular Filtration Rate 35 mL/min (>60); Est Glom Filt Rate - Afr Amer 42 mL/min (>60); Estimated Creatinine Clearance 30.43 ml/min; Glucose 105 mg/dL (74-106); Potassium 3.7 mmol/L (3.5-5.1); Sodium Level 148 mmol/L (136-145)
--- NOTE | 2018-07-05 07:08 | NURSING ---
STAFFING ACCOUNT MANAGER took pt off floor for testing.
[2018-07-05 10:00] VITALS: BP 128/80; PULSE 95; RESP 18; TEMP 37; O2SAT 96
[2018-07-05 10:27] LABS: Sodium Level 146 mmol/L (136-145)
[2018-07-05] MEDS: oxyCODONE 5 MG Tablet PO ×2 (10:31→15:07)
[2018-07-05] MEDS: OLANZapine 10 MG Tablet PO (10:31)
[2018-07-05] MEDS: Polyethylene Glycol 3350 17 GM PACKET PO (10:32)
[2018-07-05] MEDS: Ferrous Sulfate 325 MG Tablet PO ×2 (10:32→17:09)
[2018-07-05] MEDS: lamoTRIgine 100 MG Tablet 200 MG PO (10:32)
[2018-07-05] MEDS: DESMOPRESSIN ACETATE 0.2 MG TABLET 0.1 MG PO (10:32)
[2018-07-05] MEDS: Docusate Sodium 100 MG Capsule PO (10:32)
[2018-07-05] MEDS: Glucerna Shake 120 ML LIQUID PO ×4 (10:32→21:01)
--- NOTE | 2018-07-05 12:37 | PCM.PN.REN ---
Patient Problems: Active and Suspected Problems UTI (urinary tract infection) (Acute) Subjective: no new complaints repeats every word 3 times as per brother in law at bedside she looks better than before - Physical Exam General: Alert, Oriented x3, Cooperative HEENT: Atraumatic, PERRLA, EOMI, Normocephalic Neck: Supple, No JVD, Negative Carotid Bruits Lungs: Clear to auscultation, Normal air movement Cardiovascular: Regular rate, No murmurs Abdomen: Bowel Sounds Present, Soft, Non Tender Extremities: No edema, Capillary Refill Less than 3 Seconds Skin: No rashes, No breakdown Musculoskeletal: No Tenderness to Palpation of Joints or Extremities Neurological: Cranial nerves II-XII grossly intact Psych/Mental Status: Normal Affect, Appropriate Vital Signs Temp Pulse Resp BP Pulse Ox 98.6 F 95 18 128/80 H 96 07/05/18 10:00 07/05/18 10:00 07/05/18 10:00 07/05/18 10:00 07/05/18 10:00 Oxygen Delivery Method Room Air Weight: 61.5 kg Body Mass Index (BMI) 22.1 Intake and Output for Last 24 Hours 07/03/18 07/04/18 07/05/18 23:59 23:59 23:59 Intake Total 1416 / 1416 2303 / 2303 1715 / 1715 Output Total 150 / 150 550 / 550 475 / 475 Balance 1266 / 1266 1753 / 1753 1240 / 1240 Microbiology Past 72 Hours 07/01/18 09:35 Blood Culture - Preliminary Blood Culture (Wb) - Left Hand No growth in 48 hours. 07/01/18 09:30 Blood Culture - Preliminary Blood Culture (Wb) - Left Hand No growth in 48 hours. Laboratory Tests Past 24 Hrs 07/04/18 07/04/18 07/04/18 14:00 17:35 22:10 Sodium 151 H 152 H 149 H Potassium Chloride Carbon Dioxide Anion Gap BUN Creatinine Estim Creat Clear Calc Est GFR (MDRD) Af Amer Est GFR (MDRD) Non-Af BUN/Creatinine Ratio Glucose Calcium 07/05/18 07/05/18 07/05/18 01:55 05:32 10:00 Sodium 143 148 H 146 H Potassium 3.7 Chloride 112 H Carbon Dioxide 25.0 Anion Gap 11 BUN 16 Creatinine 1.57 H Estim Creat Clear Calc 30.43 Est GFR (MDRD) Af Amer 42 L Est GFR (MDRD) Non-Af 35 L BUN/Creatinine Ratio 10.2 Glucose 105 Calcium 8.9 Medical Necessity - Tobacco Use Smoking Status: Former smoker Tobacco Use: Cigarettes Assessment/Plan All Active Problems UTI (urinary tract infection) (Acute) 1. Hypernatremia. Pt has a history of nephrogenic DI. Uosm is 171, so she can only partially concentrate urine even with desmopressin. This is c/w nephrogenic DI. sodium is around 146. as per staff, she is refusing to drink water. This is different from her outpatient condition where she usually compensates by drinking more water. Likely related to psychiatric illness. she could not do thiazide due to hypercalcemia. was on amiloride as outpatient 2. Chronic kidney disease stage 4. She appears to be close to baseline renal function. SCr has been around 1.5-1.8 in the past. Continue I>O. Continue IVF. Monitor renal function. 3. Hypercalcemia. Calcium was mildly elevated at 10.6 on 07/02/18. Calcium is stable today. 4. UTI. On ceftriaxone. 5. bipolar disorder. d/w hospitalist team
--- NOTE | 2018-07-05 13:23 | PCM.PROGNOTE ---
<Tyrone Espitia - Last Filed: 07/05/18 13:23> Patient Problems: Active and Suspected Problems UTI (urinary tract infection) (Acute) Subjective: Pt resting comfortably in bed. Currently not present. She is much less tremulous now. She is still repeating some phrases, but also having some speech that is less pressured. She seems to be thinking about and appropriately answering questions at appropriate intervals. No dysuria. Still some incontinence. No abdominal pain. No SOB/Cough. No fever or chills. She continues to report increased thirst however she continues to drink little water on her own. - Physical Exam General: Alert, Oriented x3, Cooperative HEENT: Atraumatic, PERRLA, EOMI, Normocephalic Neck: Supple, No JVD, Negative Carotid Bruits Lungs: Clear to auscultation, Normal air movement Cardiovascular: Regular rate, No murmurs Abdomen: Bowel Sounds Present, Soft, Non Tender Extremities: No edema, Capillary Refill Less than 3 Seconds Skin: No rashes, No breakdown Musculoskeletal: No Tenderness to Palpation of Joints or Extremities Neurological: Cranial nerves II-XII grossly intact Psych/Mental Status: Anxious, Alert and oriented to time, place, person, mood and affect Vital Signs Temp Pulse Resp BP Pulse Ox 98.6 F 95 18 128/80 H 96 07/05/18 10:00 07/05/18 10:00 07/05/18 10:00 07/05/18 10:00 07/05/18 10:00 Oxygen Delivery Method Room Air Weight: 135 lb 9.349 oz Body Mass Index (BMI) 22.1 Intake and Output for Last 24 Hours 07/03/18 07/04/18 07/05/18 23:59 23:59 23:59 Intake Total 1416 / 1416 2303 / 2303 1715 / 1715 Output Total 150 / 150 550 / 550 475 / 475 Balance 1266 / 1266 1753 / 1753 1240 / 1240 Microbiology Past 72 Hours 07/01/18 09:35 Blood Culture - Preliminary Blood Culture (Wb) - Left Hand No growth in 48 hours. 07/01/18 09:30 Blood Culture - Preliminary Blood Culture (Wb) - Left Hand No growth in 48 hours. Laboratory Tests Past 24 Hrs 07/04/18 07/04/18 07/04/18 14:00 17:35 22:10 Sodium 151 H 152 H 149 H Potassium Chloride Carbon Dioxide Anion Gap BUN Creatinine Estim Creat Clear Calc Est GFR (MDRD) Af Amer Est GFR (MDRD) Non-Af BUN/Creatinine Ratio Glucose Calcium 07/05/18 07/05/18 07/05/18 01:55 05:32 10:00 Sodium 143 148 H 146 H Potassium 3.7 Chloride 112 H Carbon Dioxide 25.0 Anion Gap 11 BUN 16 Creatinine 1.57 H Estim Creat Clear Calc 30.43 Est GFR (MDRD) Af Amer 42 L Est GFR (MDRD) Non-Af 35 L BUN/Creatinine Ratio 10.2 Glucose 105 Calcium 8.9 Medical Necessity - Tobacco Use Smoking Status: Former smoker Tobacco Use: Cigarettes Assessment/Plan All Active Problems UTI (urinary tract infection) (Acute) 1. Acute sepsis with bacteremia 2/2 UTI, presumed 2/2 recent indwelling bhardwaj during prior hospitalization for 24 hours urine study. E coli - pansensitive. Continue rocephin. Afebrile, leukocytosis resolved. No catheter currently. Pna ruled out. Atelectasis on CT. Continue spirometer. -Repeat blood cultures negative. -Plan to continue Abx x 14 days -Repeat CXR negative 2. Altered mental status - acute metabolic encephalopathy 2/2 above. Defer medication change until infection/sodium control improves. CT brain negative. 3. Hypernatremia, DI - renal following. d52, q4h serum sodium. Pt not drinking much at all. Hypernatremia returns each time she is taken off fluids. Again encouraged the patient to drink water. Output is inaccurate 2/2 incontinence of urine. 4. Bipolar/Severe anxiety - mentation is improved today. symptoms currently more concerning for a component of schizophrenia - she has an appointment with her psychiatrist that she will need to reschedule for later this week. She has additional ativan to be given today for severe anxiety and prn haldol ordered. Will decrease ativan back to 1mg TID after today. 5. Mild anemia - mildly macrocytic. trend. Continue iron. 6. Multinodular thyroid - TSH suppressed, but T4/T3 normal. 7. CKD IV - stable 8. Dysphagia - speech following. Continue modified diet. No pna on CT. DVT ppx: lovenox DC planning: pending sodium correction. This patient was seen by Tyrone Espitia PA-C under the supervision of Dr. Amador <[email or web address] - Last Filed: 07/05/18 15:51> - Physical Exam Vital Signs Temp Pulse Resp BP Pulse Ox 98.2 F 94 18 129/82 H 98 07/05/18 15:10 07/05/18 15:10 07/05/18 15:10 07/05/18 15:10 07/05/18 15:10 Oxygen Delivery Method Room Air Weight: 135 lb 9.349 oz Body Mass Index (BMI) 22.1 Intake and Output for Last 24 Hours 07/03/18 07/04/18 07/05/18 23:59 23:59 23:59 Intake Total 1416 / 1416 2303 / 2303 2761 / 2761 Output Total 150 / 150 550 / 550 475 / 475 Balance 1266 / 1266 1753 / 1753 2286 / 2286 Microbiology Past 72 Hours 07/01/18 09:35 Blood Culture - Preliminary Blood Culture (Wb) - Left Hand No growth in 48 hours. 07/01/18 09:30 Blood Culture - Preliminary Blood Culture (Wb) - Left Hand No growth in 48 hours. Laboratory Tests Past 24 Hrs 07/04/18 07/04/18 07/05/18 17:35 22:10 01:55 Sodium 152 H 149 H 143 Potassium Chloride Carbon Dioxide Anion Gap BUN Creatinine Estim Creat Clear Calc Est GFR (MDRD) Af Amer Est GFR (MDRD) Non-Af BUN/Creatinine Ratio Glucose Calcium 07/05/18 07/05/18 07/05/18 05:32 10:00 14:18 Sodium 148 H 146 H 145 Potassium 3.7 Chloride 112 H Carbon Dioxide 25.0 Anion Gap 11 BUN 16 Creatinine 1.57 H Estim Creat Clear Calc 30.43 Est GFR (MDRD) Af Amer 42 L Est GFR (MDRD) Non-Af 35 L BUN/Creatinine Ratio 10.2 Glucose 105 Calcium 8.9 Assessment/Plan Patient seen by Tyrone Espitia PA-C under my supervision. Patient seen and examined. She is very tremulous and quite confused. She was able to answer questions though and had no complaints. She denied any fever or chills, any cough or chest pain, shortness of breath, abdominal pain, any diarrhea vomiting. Sodium was noted to have gone back up to around 150. She was taken off of D5 water yesterday. She remains on IV Rocephin for UTI due to E. coli. Repeat blood cultures were negative and plan is for her to have antibiotics for 14 days in total. Labs and vitals reviewed. 12 point review of systems otherwise negative. Patient's lips are dry and urine output is likely to be inadequately charted as patient has had several episodes of incontinence. She does appear to be in positive balance still. o/e: General: confused, cooperative HEENT: Atraumatic, PERRLA, EOMI, Normocephalic Neck: Supple, No JVD, Negative Carotid Bruits Lungs: Clear to auscultation, Normal air movement Cardiovascular: Regular rate, No murmurs Abdomen: Bowel Sounds Present, Soft, Non Tender Extremities: No edema, Capillary Refill Less than 3 Seconds Skin: No rashes, No breakdown Musculoskeletal: No Tenderness to Palpation of Joints or Extremities Neurological: Cranial nerves II-XII grossly intact, very signficant tremors of all extremities, present at rest and with movement Psych/Mental Status: Anxious, confused 1. Hypernatremia: start on IV D5W @ 75cc/hr. Nephrology on board. WIll monitor BMP. On desmopressin 2. UTI due to E. Coli: on ceftriaxone. Continue for total antibiotic coverage of 14 days. 3. SUbclinical hypothyroidism: on synthroid. TSH supressed,b ut T4/3 normal, indicating subclinical hypothyroidism. Will continue monitoring. Rest of management as per LUBA Hansen he would ask note. Disposition is for discharge once hyponatremia is resolved. Code Visit Inpatient E&M: 51472 Subs Hosp L3
[2018-07-05 15:10] VITALS: BP 129/82; PULSE 94; RESP 18; TEMP 36.8; O2SAT 98
[2018-07-05 15:25] LABS: Sodium Level 145 mmol/L (136-145)
[2018-07-05] MEDS: Dextrose 5%/0.9% NaCl 1,000 ML 75 ML IV (16:07)
[2018-07-05 20:27] LABS: Sodium Level 145 mmol/L (136-145)
[2018-07-05] MEDS: proMETHazine 25 MG/ML Syringe 12.5 MG IV (20:47)
[2018-07-05] MEDS: OLANZapine 10 MG Tablet 20 MG PO (20:53)
[2018-07-05] MEDS: MELATONIN 10 MG TABLET PO (20:54)
[2018-07-05 21:00] VITALS: BP 106/76; PULSE 86; RESP 18; TEMP 36.8; O2SAT 95
[2018-07-06] MEDS: LORazepam 1 MG Tablet PO ×2 (02:57→11:20)
[2018-07-06 03:00] VITALS: BP 125/80; PULSE 96; RESP 18; TEMP 36.6; O2SAT 96
[2018-07-06 03:00] LABS: Sodium Level 147 mmol/L (136-145)
[2018-07-06] MEDS: oxyCODONE 5 MG Tablet PO (03:06)
[2018-07-06] MEDS: proMETHazine 25 MG/ML Syringe 12.5 MG IV (03:13)
[2018-07-06] MEDS: Dextrose 5%/0.9% NaCl 1,000 ML 75 ML IV (03:16)
[2018-07-06] MEDS: Haloperidol Lactate 5 MG/ML Vial 2 MG IM ×2 (04:07→14:45)
[2018-07-06] MEDS: Enoxaparin 30 MG/0.3 ML Syringe SC (06:09)
[2018-07-06 08:08] LABS: Sodium Level 153 mmol/L (136-145)
[2018-07-06] MEDS: Ferrous Sulfate 325 MG Tablet PO (08:57)
[2018-07-06 09:04] VITALS: BP 141/97; PULSE 60; RESP 18; TEMP 36.7; O2SAT 96
[2018-07-06] MEDS: lamoTRIgine 100 MG Tablet 200 MG PO (11:09)
[2018-07-06] MEDS: OLANZapine 10 MG Tablet PO (11:10)
[2018-07-06] MEDS: DESMOPRESSIN ACETATE 0.2 MG TABLET 0.1 MG PO (11:10)
[2018-07-06] MEDS: Glucerna Shake 120 ML LIQUID PO (11:13)
[2018-07-06 11:48] LABS: Anion Gap 8 (5-15); BUN 14 mg/dL (7-18); BUN/Creat Ratio 10.1 RATIO (10-20); Calcium,Total 8.8 mg/dL (8.5-10.1); Chloride 111 mmol/L (98-107); Creatinine, Serum 1.39 mg/dL (0.55-1.02); EST Glomerular Filtration Rate 40 mL/min (>60); Est Glom Filt Rate - Afr Amer 48 mL/min (>60); Estimated Creatinine Clearance 34.37 ml/min; Glucose 100 mg/dL (74-106); Potassium 4.1 mmol/L (3.5-5.1); Sodium Level 144 mmol/L (136-145)
--- NOTE | 2018-07-06 12:34 | PCM.PN.REN ---
Patient Problems: Active and Suspected Problems UTI (urinary tract infection) (Acute) Subjective: no new complaints - Physical Exam General: Alert, Oriented x3, Cooperative HEENT: Atraumatic, PERRLA, EOMI, Normocephalic Neck: Supple, No JVD, Negative Carotid Bruits Lungs: Clear to auscultation, Normal air movement Cardiovascular: Regular rate, No murmurs Abdomen: Bowel Sounds Present, Soft, Non Tender Extremities: No edema, Capillary Refill Less than 3 Seconds Skin: No rashes, No breakdown Musculoskeletal: No Tenderness to Palpation of Joints or Extremities Neurological: Cranial nerves II-XII grossly intact Psych/Mental Status: Normal Affect, Appropriate Vital Signs Temp Pulse Resp BP Pulse Ox 98.0 F 60 18 141/97 H 96 07/06/18 09:04 07/06/18 09:04 07/06/18 09:04 07/06/18 09:04 07/06/18 09:04 Oxygen Delivery Method Room Air Weight: 61.2 kg Body Mass Index (BMI) 22.1 Intake and Output for Last 24 Hours 07/04/18 07/05/18 07/06/18 23:59 23:59 23:59 Intake Total 2303 / 2303 3711 / 3711 745 / 745 Output Total 550 / 550 875 / 875 300 / 300 Balance 1753 / 1753 2836 / 2836 445 / 445 Microbiology Past 72 Hours 07/01/18 09:35 Blood Culture - Final Blood Culture (Wb) - Left Hand No growth in 5 days. 07/01/18 09:30 Blood Culture - Final Blood Culture (Wb) - Left Hand No growth in 5 days. Laboratory Tests Past 24 Hrs 07/05/18 07/05/18 07/06/18 14:18 20:03 02:10 Sodium 145 145 147 H Potassium Chloride Carbon Dioxide Anion Gap BUN Creatinine Estim Creat Clear Calc Est GFR (MDRD) Af Amer Est GFR (MDRD) Non-Af BUN/Creatinine Ratio Glucose Calcium 07/06/18 07/06/18 07:36 10:55 Sodium 153 H 144 Potassium 4.1 Chloride 111 H Carbon Dioxide 25.0 Anion Gap 8 BUN 14 Creatinine 1.39 H Estim Creat Clear Calc 34.37 Est GFR (MDRD) Af Amer 48 L Est GFR (MDRD) Non-Af 40 L BUN/Creatinine Ratio 10.1 Glucose 100 Calcium 8.8 Medical Necessity - Tobacco Use Smoking Status: Former smoker Tobacco Use: Cigarettes Assessment/Plan All Active Problems UTI (urinary tract infection) (Acute) 1. Hypernatremia. Pt has a history of nephrogenic DI. Uosm is 171, so she can only partially concentrate urine even with desmopressin. This is c/w nephrogenic DI. sodium now down to 144. Earlier today, sodium was 153, reinforced water intake. Now significantly better. she could not do thiazide due to hypercalcemia. was on amiloride as outpatient 2. Chronic kidney disease stage 3. She appears to be close to baseline renal function. SCr has been around 1.5-1.8 in the past. Continue I>O. Continue IVF. Monitor renal function. 3. Hypercalcemia. Calcium was mildly elevated at 10.6 on 07/02/18. Calcium is stable today. 4. UTI. On ceftriaxone. 5. bipolar disorder. repeating sentences, some obsessive acts. sees psychiatry as outpatient. medically clear from out standpoint. she will however need close psych follow up after dc d/w Dr Amador
--- NOTE | 2018-07-06 13:01 | PCM.DC ---
- Discharge Diagnoses Current Active Problems: Current Active and Chronic Problems UTI (urinary tract infection) (Acute) CKD (chronic kidney disease), stage III (Chronic) You will use the following diet at home:: Cardiac - <2 grams sodium daily, Other - 2-3 liters of water daily Your food should be the consistency of: Regular Your liquids should be the consistency of: Regular/Thin Discharge Activity: Return to Normal Activity Allergies/Adverse Reactions: Allergies No Known Allergies Allergy (Verified 06/29/18 15:57) Medications to take at Discharge Lorazepam [Ativan] 1 mg PO TID PRN 11/21/15 Desmopressin Acetate 0.1 mg PO DAILY 06/29/18 Docusate Sodium [Colace] 100 mg PO DAILY 06/29/18 Ergocalciferol [Vitamin D] 50,000 unit PO UD 06/29/18 Ferrous Sulfate 324 mg PO BID 06/29/18 Ibandronate Sodium [Boniva] 150 mg PO Q30D 06/29/18 Lamotrigine 200 mg PO DAILY 06/29/18 Olanzapine [Zyprexa] 20 mg PO QHS 06/29/18 Perphenazine 4 mg PO TID 06/29/18 Polyethylene Glycol 3350 [Powderlax] 17 gm PO DAILY 06/29/18 Acetaminophen [Tylenol Tablet] 650 mg PO Q6H PRN PRN tablet 07/06/18 Cephalexin [Keflex] 500 mg PO BID #16 cap 07/06/18 Olanzapine [Zyprexa] 10 mg PO DAILY tablet 07/06/18 The following prescriptions were given: Cephalexin [Keflex] 500 mg PO BID #16 cap Primary Care Physician: Jay Kincaid NP-C [Primary Care Provider] - Please follow up with your Primary Care Physician in: 2 weeks Test Results: Test results from this visit will be discussed in further detail at your follow-up appointment, if applicable. Please Follow Up With: Ayse Abrams MD When: 1 week Please Follow Up With: Psychiatry When: Keep your appointment Thursday. Proposed Discharge Date: 07/06/18
--- NOTE | 2018-07-06 14:06 | PCM.DC.SUM ---
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 RAD/Chest 1 View (Portable) IMPRESSION: Atelectasis versus infiltrate at the right lung base without other major interval change. CT/Chest without Contrast IMPRESSION: Mild degree of increased markings at the lung bases slightly worse on the right side suggestive of atelectasis and/or scarring. RAD/Chest PA and Lateral IMPRESSION: No acute abnormality is seen. Consults: Jose Alberto - nephrology Operations: None Summary of Care Provided: Physical exam on day of discharge: General: Resting comfortably NAD Psych: A/Ox3 anxious, repeating phrases HEENT: PEARRLA AT NC Neck: Supple NT CV: RRR no m/t/r/g/h Resp: CTA Abd: [id number] Soft NT no guarding or rigidity Ext: DP2+= no edema Skin: W/D normal turgor Lymph/Heme: No active bleeding or adenopathy Neuro: CN2-12 intact Hospital course: The patient is a 68 year old F with a history of CKD stage IV, nephrogenic diabetes insipidus, severe bipolar and anxiety disorder, multinodular thyroid, chronic anemia, who presented to the emergency room with change in mental status, fever and chills and burning with urination for 4 days. She had been a patient at [facility] about 10 days prior and at that point had a urinary catheter prior to discharge. In the ER she was found to have leukocytosis, elevated pulse, later she had fever, positive urinalysis indicating UTI, and a chest x-ray suspicious for pneumonia versus atelectasis. She was started on Rocephin and azithromycin for UTI and suspected pneumonia. She was admitted to the medical surgical floor. Initially she had normal sodium, but a history of DI and desmopressin therapy. She was very anxious and agitated, her behaviors included restlessness, repeating herself multiple times, confusion, tangential thinking. Her blood cultures were positive for E. coli as well as her urine. A follow-up CAT scan was done and revealed only atelectasis, no pneumonia, she had no shortness of breath or cough. Azithromycin was discontinued. Repeat cultures were taken and these were negative. He was sensitive to Rocephin so this was continued while she was here. She had 6 total days of therapy. Eventually this was transitioned to oral Keflex which the bacteria was also sensitive to. She will complete 14 days of therapy. Her sodium unfortunately was very fluctuant while here. Her slots manager Dr. vega was consulted. She was not drinking very much fluid at all despite increased thirst. She was placed on D5W intermittently to bring her sodium down with a goal of 6-8 mEq per day. This is very difficult to control as one fluids were discontinued she would not drink any water and her sodium would rise. Ultimately it was able to be controlled and her mental status improved and she was able to drink more water with prompting from her . The patient will need close follow-up, I have advised her to drink 2-3 L of water per day per the suggestion of nephrology, because the patient was not drinking despite thirst while here. Ideally she should titrate her free water based on her thirst however her psychiatric ussues seem to be interfering with her ability to do this. She will have a repeat BMP in 3 days and follow-up with nephrology within a week. We have also advised her to follow-up with her psychiatrist given her worsening of her anxiety and underlying psychiatric issues. While she was here her morning dose of Zyprexa was increased from 5-10. She is advised to continue this until follow-up with her psychiatrist, who her states she will be able to get her into the office on Thursday. She was discharged home in stable condition. This patient was seen by Tyrone Espitia PA-C under the supervision of Doctor Perry. [] Discharge Diet: Low fat/ Low Cholesterol, 2000 mg Sodium Diet, - - 2-3 liters water per day Discharge Activity: Return to Normal Activity Home Medications: Medications to take at Discharge Lorazepam [Ativan] 1 mg PO TID PRN 11/21/15 Desmopressin Acetate 0.1 mg PO DAILY 06/29/18 Docusate Sodium [Colace] 100 mg PO DAILY 06/29/18 Ergocalciferol [Vitamin D] 50,000 unit PO UD 06/29/18 Ferrous Sulfate 324 mg PO BID 06/29/18 Ibandronate Sodium [Boniva] 150 mg PO Q30D 06/29/18 Lamotrigine 200 mg PO DAILY 06/29/18 Olanzapine [Zyprexa] 20 mg PO QHS 06/29/18 Perphenazine 4 mg PO TID 06/29/18 Polyethylene Glycol 3350 [Powderlax] 17 gm PO DAILY 06/29/18 Acetaminophen [Tylenol Tablet] 650 mg PO Q6H PRN PRN tablet 07/06/18 Cephalexin [Keflex] 500 mg PO BID #16 cap 07/06/18 Olanzapine [Zyprexa] 10 mg PO DAILY tablet 07/06/18 Following Prescrptions Were Given to Patient: Cephalexin [Keflex] 500 mg PO BID #16 cap Primary Care Physician: Jay Kincaid NP-C [Primary Care Provider] - Please follow up with your Primary Care Physician in: 2 weeks Please Follow Up With: Ayse Abrams MD When: 1 week Please Follow Up With: Psychiatry When: Keep your appointment Thursday. 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 She was admitted via the ED with altered mental status, chills and fever as well as burning with urination for 4 days. She had had a catheter in place for about 10 days prior to presentation here while she was an admission at [facility]. She was admitted and managed for sepsis due to UTI. Chest x-ray was suspicious for pneumonia versus atelectasis. She was started on IV Rocephin and IV azithromycin. She has a history of DI and is on desmopressin therapy. Sodium was initially normal but subsequently his sodium trended up and peaked at about 150. Patient had very poor oral intake. Sodium control is labile also will get under control with administration of IV D5 water and then will subsequently go up again when D5 water was trended down. Blood culture was positive for E. coli and urine was also positive for E. coli upon culture. CT scan done was negative for pneumonia and showed only atelectasis. E. coli was sensitive to ceftriaxone and so azithromycin was DC'd and she had 6 days of IV azithromycin. She was transitioned to oral Keflex. Sodium subsequently trended down to 144 and patient's mental status improved after her psych medications were adjusted. Patient was discharged home under the care of her who is her primary caregiver. Patient counseled to taken significant amount of water to help with hypernatremia. She is to have a follow-up BMP in 3 days since follow-up with nephrology in 1 week. She is also to follow-up with a psychiatrist. Patient was discharged on 07/06/2018 with a prescription for p.o. Keflex. Patient seen and examined prior to discharge. She had no complaints and felt well and was looking forward to going home. She denies any fever or chills, any cough or chest pain, shortness of breath, abdominal pain, any diarrhea vomiting. Review of systems otherwise negative. Labs and vitals reviewed. o/e: Vital Signs Height 5 ft 5 in Weight: 134 lb 14.766 oz Weight in Pounds 134.9 lbs Pulse Ox 98 Temperature 97.8 F Pulse Rate 99 Respiratory Rate 18 Blood Pressure 138/72 Blood Pressure Position Semi-Fowlers []General: more alert and cooperative today HEENT: Atraumatic, PERRLA, EOMI, Normocephalic Neck: Supple, No JVD, Negative Carotid Bruits Lungs: Clear to auscultation, Normal air movement Cardiovascular: Regular rate, No murmurs Abdomen: Bowel Sounds Present, Soft, Non Tender Extremities: No edema, Capillary Refill Less than 3 Seconds Skin: No rashes, No breakdown Musculoskeletal: No Tenderness to Palpation of Joints or Extremities Neurological: Cranial nerves II-XII grossly intact, tremors of all extremities, present at rest and with movement; has improved relative to yesterday Psych/Mental Status: calm Plan as stated above. Agree with Tyrone Espitia note and assessment and plan. Code Visit Inpatient E&M: [id number] Disch Hosp
[2018-07-06 14:49] VITALS: BP 138/72; PULSE 99; RESP 18; TEMP 36.6; O2SAT 98
--- NOTE | 2018-07-09 14:33 | CASEMGMT ---
RN CM Discharge F/U Phone Call LACE: 9 Strata: 3 Discharge date: 07/06/18 Call date: 07/09/18 Call time: [id number] Duration: 7 minutes Admission dx: UTI, RLL pna, confusion, mild hypercalcemia Pt's answered phone and states that pt is sleeping at this time but would like to answer questions for pt at this time. Per , pt is still recovering and he states he sees slight improvements with some things but not with others yet. states pt has had insomnia and frequency with urination still. He states that he is bringing her in for lab work in the am and that she that he has been in contact with PCP's nurse but they suggest that pt have all other f/u's prior to seeing them. Per , pt will see psychiatrist today at 1630 and is scheduled to see nephrology thursday. He states endocrinology appt is scheduled for 07/19. states that everyone at [facility] 'did a great job and that they appreciated everything.' He states 'She wasn't an easy patient and everyone there handled her very well.' states no further questions/concerns/needs at this time. He thanks this RN CM and this RN CM provided pt with f/u contact info for Krystal BLACKBURN CM, if needed. SStaten RN VERONICA
== END 2018-07-06 15:15 | disposition home or self-care (01) | DRG 698 ==
LOC: ED 17:38 → MS3 20:32
PROVIDERS: Hospitalist; Internal Medicine Nephrology; Physician Assistant; Admitting Provider Internal Medicine; Emergency Provider Emergency Medicine; Family Provider Nurse Practitioner Family; PCP Nurse Practitioner Family; Visit Provider Student in an Organized Health Care Education/Training Program
DX: T83.511A Infection and inflammatory reaction due to indwelling urethral catheter, initial encounter (principal); A41.51 Sepsis due to Escherichia coli [E. coli]; G93.41 Metabolic encephalopathy; N25.1 Nephrogenic diabetes insipidus; N18.4 Chronic kidney disease, stage 4 (severe); N39.0 Urinary tract infection, site not specified; Z87.440 Personal history of urinary (tract) infections; E21.0 Primary hyperparathyroidism; F31.9 Bipolar disorder, unspecified; E07.81 Sick-euthyroid syndrome; B96.20 Unspecified Escherichia coli [E. coli] as the cause of diseases classified elsewhere; F41.9 Anxiety disorder, unspecified; R13.10 Dysphagia, unspecified
CPT/HCPCS: 36415; 70450; 71045; 71046; 71250; 80048; 80053; 80069; 80307; 80320; 81001; 82570; 82962; 83605; 83735; 83935; 84100; 84133; 84295; 84300; 84436; 84439; 84443; 84481; 84484; 85025; 85610; 85652; 85730; 87040; 87077; 87086; 87088; 87186; 92507; 92526; 93005; 97110; 97116; 97162; 97166; 97530; 99283; J7030; J7040; A4216; G0480; J0696

== ENCOUNTER → 2018-07-10 08:07 | Outpatient (CLI) | payer MEDICARE, SELFPAY ==
[2018-07-10 08:58] LABS: Albumin, Serum 3.6 g/dL (3.2-5.0); BUN 18 mg/dL (7-18); BUN/Creat Ratio 10.1 RATIO (10-20); Calcium,Total 10.8 mg/dL (8.5-10.1); Chloride 111 mmol/L (98-107); Creatinine, Serum 1.79 mg/dL (0.55-1.02); EST Glomerular Filtration Rate 30 mL/min (>60); Est Glom Filt Rate - Afr Amer 36 mL/min (>60); Glucose 92 mg/dL (74-106); Phosphorus 2.9 mg/dL (2.5-4.9); Potassium 4.1 mmol/L (3.5-5.1); Sodium Level 148 mmol/L (136-145)
== END ==
PROVIDERS: Family Provider Nurse Practitioner Family; PCP Nurse Practitioner Family; Visit Provider Internal Medicine Nephrology
DX: N18.3 Chronic kidney disease, stage 3 (moderate) (principal)
CPT/HCPCS: 36415; 80069

== ENCOUNTER → 2018-07-13 09:45 | Outpatient (CLI) | payer MEDICARE, SELFPAY ==
[2018-07-13 11:51] LABS: AST(SGOT) 15 U/L (15-37); Alanine Aminotransfer ALT/SGPT 31 U/L (13-56); Albumin, Serum 3.5 g/dL (3.2-5.0); Alkaline Phosphatase 83 U/L (45-117); Anion Gap 13 (5-15); BUN 17 mg/dL (7-18); BUN/Creat Ratio 8.5 RATIO (10-20); Calcium,Total 10.7 mg/dL (8.5-10.1); Chloride 103 mmol/L (98-107); EST Glomerular Filtration Rate 26 mL/min (>60); Est Glom Filt Rate - Afr Amer 32 mL/min (>60); Globulin 3.6 g/dL (2.2-4.2); Glucose 185 mg/dL (74-106); Magnesium 2.1 mg/dL (1.6-2.6); Potassium 3.8 mmol/L (3.5-5.1); Protein, Total 7.1 g/dL (6.4-8.2); Sodium Level 142 mmol/L (136-145)
[2018-07-14 08:34] LABS: PTHIN 75.5 pg/mL (18.4-80.1)
[2018-07-14 08:38] LABS: Vitamin D,25 Hydroxy 53.2 ng/mL (29.95-100.01)
[2018-07-16 11:34] LABS: Vitamin D 1,25-Dihydroxy 19.6 pg/mL (19.9-79.3)
== END ==
PROVIDERS: Family Provider Nurse Practitioner Family; PCP Nurse Practitioner Family; Visit Provider Internal Medicine Endocrinology, Diabetes & Metabolism
DX: E83.52 Hypercalcemia (principal); E78.01 Familial hypercholesterolemia
CPT/HCPCS: 36415; 80053; 82306; 82330; 82652; 83735; 83970; 84100

== ENCOUNTER → 2018-07-15 08:34 | Outpatient (CLI) | payer MEDICARE, SELFPAY ==
[2018-07-15 14:55] LABS: (24 HR) Urine Calcium 185.4 mg/24 HR (42.0-353.0); 24HR UR TOTAL VOLUME 3090 ml; Calcium Urine pH Range 2
== END ==
PROVIDERS: Family Provider Nurse Practitioner Family; PCP Nurse Practitioner Family; Visit Provider Internal Medicine Endocrinology, Diabetes & Metabolism
DX: E83.52 Hypercalcemia (principal)
CPT/HCPCS: 82340

== ENCOUNTER 2018-07-22 10:13 | Outpatient (RCR) | payer MEDICARE, SELFPAY ==
[2018-07-22 12:20] LABS: Anion Gap 11 (5-15); BUN 19 mg/dL (7-18); BUN/Creat Ratio 10.3 RATIO (10-20); Calcium,Total 10.1 mg/dL (8.5-10.1); Chloride 106 mmol/L (98-107); Creatinine, Serum 1.84 mg/dL (0.55-1.02); EST Glomerular Filtration Rate 29 mL/min (>60); Est Glom Filt Rate - Afr Amer 35 mL/min (>60); Free T3 2.5 pg/mL (2.18-3.98); Glucose 201 mg/dL (74-106); Potassium 3.9 mmol/L (3.5-5.1); Sodium Level 142 mmol/L (136-145); T4 Free Direct 1.11 ng/dL (0.76-1.46); Thyroid Stim Hormone (TSH) 0.17 uIU/mL (0.358-3.74)
[2018-07-25 03:06] LABS: Thyroid Stim Immunoglob 0.32 IU/L (0.00-0.55)
[2018-07-25 09:56] LABS: Thyroid Peroxidase AB 17 IU/mL (0-34)
== END 2018-07-22 11:00 | disposition home or self-care (01) ==
LOC: LAB 10:13
PROVIDERS: Family Provider Nurse Practitioner Family; PCP Nurse Practitioner Family
DX: E04.2 Nontoxic multinodular goiter (principal); Z51.81 Encounter for therapeutic drug level monitoring
CPT/HCPCS: 36415; 80048; 84439; 84443; 84445; 84481; 86376

== ENCOUNTER → 2018-08-02 10:22 | Outpatient (CLI) | payer MEDICARE, SELFPAY ==
[2018-08-02 11:55] LABS: BUN 21 mg/dL (7-18); Creatinine, Serum 1.53 mg/dL (0.55-1.02); Glucose 105 mg/dL (74-106)
[2018-08-02 11:56] LABS: Anion Gap 9 (5-15); BUN/Creat Ratio 13.7 RATIO (10-20); Calcium,Total 10.2 mg/dL (8.5-10.1); Chloride 110 mmol/L (98-107); EST Glomerular Filtration Rate 36 mL/min (>60); Est Glom Filt Rate - Afr Amer 43 mL/min (>60); Potassium 4.2 mmol/L (3.5-5.1); Sodium Level 145 mmol/L (136-145)
== END ==
PROVIDERS: Family Provider Nurse Practitioner Family; PCP Nurse Practitioner Family; Visit Provider Internal Medicine Nephrology
DX: N18.3 Chronic kidney disease, stage 3 (moderate) (principal)
CPT/HCPCS: 36415; 80048

== ENCOUNTER → 2018-08-09 12:43 | Outpatient (CLI) | payer MEDICARE, SELFPAY ==
--- NOTE | 2018-08-09 12:49 | US_ITS ---
STUDY: RENAL ULTRASOUND - COMPLETE REASON FOR EXAM: Female, 68 years old. Diabetes insipidus TECHNIQUE: Ultrasound evaluation of the kidneys was performed with real-time and static mckay-scale imaging. COMPARISON: None. FINDINGS: RIGHT KIDNEY: Normal location of the right kidney, which is normal in size. The right kidney measures 8.6 x 5.6 x 3.6 cm. There is diffuse thinning of the renal cortex. There is a 1.4 cm simple cyst. There are no right renal calculi. There is no right hydronephrosis. DISTAL RIGHT URETER: There is non-visualization of the distal right ureter. There is no demonstrated right ureterovesical junction calculus. There is a visualized right ureteral jet. LEFT KIDNEY: Normal location of the left kidney, which is normal in size. The left kidney measures 3.5 x 4.4 x 4.1 cm. There is diffuse thinning of the renal cortex. There is a simple 1.37 m cyst. There are no left renal calculi. There is no left hydronephrosis. DISTAL LEFT URETER: There is non-visualization of the distal left ureter. There is no demonstrated left ureterovesical junction calculus. There is a visualized left ureteral jet. AORTA: There is no elongation or tortuosity of the abdominal aorta. I.V.C.: The IVC is patent. BLADDER: The bladder capacity is 223.96 mL with postvoid residual of 46.02 mL. The post void residual places the patient at risk for urinary reflux and UTIs. Kidneys are echogenic suggesting medical renal disease. US/Kidney and Bladder IMPRESSION: Normal sized echogenic kidneys suggest medical renal disease, likely due to diabetes. Post void residual of 46.[address] the patient risk for urinary reflux and UTIs Electronically Signed: Fritz Saxena MD at 16:30 EDT , Service support ,
== END ==
PROVIDERS: Family Provider Nurse Practitioner Family; PCP Nurse Practitioner Family; Referring Provider Nurse Practitioner Family; Visit Provider Nurse Practitioner Family
DX: E23.2 Diabetes insipidus (principal); R39.15 Urgency of urination; N18.3 Chronic kidney disease, stage 3 (moderate)
CPT/HCPCS: 76770

== ENCOUNTER 2018-09-02 13:12 | Outpatient (RCR) | payer MEDICARE, SELFPAY ==
[2018-08-16 12:25] LABS: Anion Gap 8 (5-15); BUN 29 mg/dL (7-18); Calcium,Total 9.8 mg/dL (8.5-10.1); Chloride 111 mmol/L (98-107); Creatinine, Serum 1.71 mg/dL (0.55-1.02); EST Glomerular Filtration Rate 31 mL/min (>60); Est Glom Filt Rate - Afr Amer 38 mL/min (>60); Glucose 83 mg/dL (74-106); Potassium 4.2 mmol/L (3.5-5.1); Sodium Level 146 mmol/L (136-145)
[2018-08-27 12:34] LABS: Anion Gap 6 (5-15); BUN 34 mg/dL (7-18); BUN/Creat Ratio 21.4 RATIO (10-20); Calcium,Total 10.2 mg/dL (8.5-10.1); Chloride 112 mmol/L (98-107); Creatinine, Serum 1.59 mg/dL (0.55-1.02); EST Glomerular Filtration Rate 34 mL/min (>60); Est Glom Filt Rate - Afr Amer 41 mL/min (>60); Glucose 80 mg/dL (74-106); Potassium 4.1 mmol/L (3.5-5.1); Sodium Level 146 mmol/L (136-145)
[2018-09-02 16:11] LABS: Anion Gap 7 (5-15); BUN 30 mg/dL (7-18); BUN/Creat Ratio 20.8 RATIO (10-20); Calcium,Total 9.8 mg/dL (8.5-10.1); Chloride 108 mmol/L (98-107); Creatinine, Serum 1.44 mg/dL (0.55-1.02); EST Glomerular Filtration Rate 38 mL/min (>60); Est Glom Filt Rate - Afr Amer 46 mL/min (>60); Glucose 81 mg/dL (74-106); Potassium 4.6 mmol/L (3.5-5.1); Sodium Level 144 mmol/L (136-145)
== END 2018-09-08 13:12 | disposition home or self-care (01) ==
LOC: LAB 13:12
PROVIDERS: Family Provider Nurse Practitioner Family; PCP Nurse Practitioner Family
DX: E04.2 Nontoxic multinodular goiter (principal); Z51.81 Encounter for therapeutic drug level monitoring
CPT/HCPCS: 36415; 80048

== ENCOUNTER 2018-09-23 13:01 | Outpatient (RCR) | payer MEDICARE, SELFPAY ==
[2018-09-09 15:35] LABS: Anion Gap 7 (5-15); BUN 27 mg/dL (7-18); BUN/Creat Ratio 20.1 RATIO (10-20); Calcium,Total 9.5 mg/dL (8.5-10.1); Chloride 110 mmol/L (98-107); Creatinine, Serum 1.34 mg/dL (0.55-1.02); EST Glomerular Filtration Rate 42 mL/min (>60); Est Glom Filt Rate - Afr Amer 50 mL/min (>60); Glucose 78 mg/dL (74-106); Potassium 4.4 mmol/L (3.5-5.1); Sodium Level 144 mmol/L (136-145)
[2018-09-16 16:01] LABS: Anion Gap 6 (5-15); BUN 26 mg/dL (7-18); BUN/Creat Ratio 19.4 RATIO (10-20); Calcium,Total 9.6 mg/dL (8.5-10.1); Chloride 103 mmol/L (98-107); Creatinine, Serum 1.34 mg/dL (0.55-1.02); EST Glomerular Filtration Rate 42 mL/min (>60); Est Glom Filt Rate - Afr Amer 50 mL/min (>60); Glucose 67 mg/dL (74-106); Potassium 4.3 mmol/L (3.5-5.1); Sodium Level 138 mmol/L (136-145)
[2018-09-23 13:39] LABS: Anion Gap 7 (5-15); BUN 39 mg/dL (7-18); BUN/Creat Ratio 22.9 RATIO (10-20); Calcium,Total 9.7 mg/dL (8.5-10.1); Chloride 105 mmol/L (98-107); EST Glomerular Filtration Rate 32 mL/min (>60); Est Glom Filt Rate - Afr Amer 38 mL/min (>60); Glucose 78 mg/dL (74-106); Potassium 4.3 mmol/L (3.5-5.1); Sodium Level 139 mmol/L (136-145)
== END 2018-10-08 11:22 | disposition home or self-care (01) ==
LOC: LAB 13:01
PROVIDERS: Family Provider Nurse Practitioner Family; PCP Nurse Practitioner Family
DX: E04.2 Nontoxic multinodular goiter (principal); Z79.899 Other long term (current) drug therapy
CPT/HCPCS: 36415; 80048

== ENCOUNTER → 2018-09-27 13:00 | Outpatient (CLI) | payer MEDICARE, SELFPAY ==
[2018-09-27 14:39] LABS: PTHIN 59.5 pg/mL (18.4-80.1); Vitamin D,25 Hydroxy 53.5 ng/mL (29.95-100.01)
[2018-09-27 14:45] LABS: AST(SGOT) 17 U/L (15-37); Alanine Aminotransfer ALT/SGPT 25 U/L (13-56); Albumin, Serum 3.7 g/dL (3.2-5.0); Alkaline Phosphatase 85 U/L (45-117); Anion Gap 10 (5-15); BUN 35 mg/dL (7-18); BUN/Creat Ratio 23.6 RATIO (10-20); Calcium,Total 9.4 mg/dL (8.5-10.1); Chloride 105 mmol/L (98-107); Creatinine, Serum 1.48 mg/dL (0.55-1.02); EST Glomerular Filtration Rate 37 mL/min (>60); Est Glom Filt Rate - Afr Amer 45 mL/min (>60); Globulin 3.6 g/dL (2.2-4.2); Glucose 99 mg/dL (74-106); Phosphorus 3.1 mg/dL (2.5-4.9); Potassium 4.3 mmol/L (3.5-5.1); Protein, Total 7.3 g/dL (6.4-8.2); Sodium Level 142 mmol/L (136-145); Thyroid Stim Hormone (TSH) 0.17 uIU/mL (0.358-3.74)
[2018-09-29 19:54] LABS: Vitamin D 1,25-Dihydroxy 35.3 pg/mL (19.9-79.3)
== END ==
PROVIDERS: Family Provider Nurse Practitioner Family; PCP Nurse Practitioner Family; Referring Provider Internal Medicine Endocrinology, Diabetes & Metabolism; Visit Provider Internal Medicine Endocrinology, Diabetes & Metabolism
DX: E04.2 Nontoxic multinodular goiter (principal); E21.3 Hyperparathyroidism, unspecified
CPT/HCPCS: 36415; 80053; 82306; 82330; 82652; 83970; 84100; 84439; 84443

== ENCOUNTER → 2018-09-29 08:06 | Outpatient (CLI) | payer MEDICARE, SELFPAY ==
[2018-09-29 10:30] LABS: 24HR UR TOTAL VOLUME 5175 ml; Calcium Urine pH Range 2
[2018-09-29 10:31] LABS: Urine Calcium (Random) < 5.0 (Not Estab.)
[2018-09-29 10:36] LABS: Creatinine, Urine < 13.00 mg/dL (NO RANGE EST.)
== END ==
PROVIDERS: Family Provider Nurse Practitioner Family; PCP Nurse Practitioner Family; Referring Provider Internal Medicine Endocrinology, Diabetes & Metabolism; Visit Provider Internal Medicine Endocrinology, Diabetes & Metabolism
DX: E21.3 Hyperparathyroidism, unspecified (principal); E04.2 Nontoxic multinodular goiter
CPT/HCPCS: 82340; 82570

== ENCOUNTER → 2018-10-07 12:25 | Outpatient (CLI) | payer MEDICARE, SELFPAY ==
--- NOTE | 2018-10-07 12:41 | US_ITS ---
STUDY: THYROID ULTRASOUND REASON FOR EXAM: Female, 68 years old. Nodules TECHNIQUE: Ultrasound evaluation of the thyroid was performed with real-time and static couch-scale imaging. COMPARISON: None. FINDINGS: RIGHT LOBE: The right lobe of the thyroid gland measures 5.5 x 2.7 x 2.8 cm. There is a homogeneous echotexture. There is a solid 1.3 x 1.1 x 0.8 cm nodule within the mid pole that demonstrates internal vascularity. There is a 4 mm colloid cyst visualized as well within the right lobe. LEFT LOBE: The left lobe of the thyroid gland measures 5.3 x 2.0 x 2.2 cm. There is a homogeneous echotexture. There is a solid 1.0 x 0.8 x 1.0 cm nodule within the left lobe that demonstrates minimal internal vascularity. There is a 0.5 x 0.4 x 0.4 mm complex nodule within the left lobe of the gland as well. There is a additional well-circumscribed anechoic focus within the left lobe measuring up to 4 mm that likely reflects a colloid cyst. ISTHMUS: The isthmus measures 7 mm . There is a colloid cyst within the isthmus measuring up to 7 mm. The regional lymph nodes are normal. US/Thyroid IMPRESSION: Enlarged thyroid gland. Bilateral solid nodules the largest measuring up to 1.3 x 1.1 x 0.8 cm within the right lobe. Bilateral colloid cysts. Electronically Signed: Kajal Wyatt MD at 15:40 EST Tel , Service support ,
[2018-10-07 14:30] LABS: Anion Gap 6 (5-15); BUN 39 mg/dL (7-18); BUN/Creat Ratio 27.9 RATIO (10-20); Calcium,Total 9.8 mg/dL (8.5-10.1); Chloride 106 mmol/L (98-107); EST Glomerular Filtration Rate 40 mL/min (>60); Est Glom Filt Rate - Afr Amer 48 mL/min (>60); Free T3 2.6 pg/mL (2.18-3.98); Glucose 84 mg/dL (74-106); Potassium 4.2 mmol/L (3.5-5.1); Sodium Level 141 mmol/L (136-145)
[2018-10-07 14:31] LABS: T4 Free Direct 0.98 ng/dL (0.76-1.46); Thyroid Stim Hormone (TSH) 0.12 uIU/mL (0.358-3.74)
[2018-10-08 16:08] LABS: Thyroid Stim Immunoglob 0.31 IU/L (0.00-0.55)
[2018-10-09 09:23] LABS: Thyroid Peroxidase AB 17 IU/mL (0-34)
--- OUTSIDE RECORDS SUMMARY | 2018-12-02 15:46 | XMS RPT_ITS ---
:1950 Author Organization OHIP Support Name Relationship Address Phone ANGELES WILCOX Unavailable [address] + [place] [address] R Unavailable Unavailable Unavailable HERNANDEZ, MAIRA Unavailable [address] + [place] [address] ANGELES WILCOX Unavailable Unavailable + RUDDY HERNANDEZ Unavailable Unavailable + ANGELES WILCOX Unavailable [address] + [place] [address] R Unavailable Unavailable Unavailable HERNANDEZ, MAIRA Unavailable [address] + [place] [address] ANGELES WILCOX Unavailable Unavailable + RDUDY HERNANDEZ Unavailable Unavailable + ANGELES WILCOX Unavailable Unavailable + [place] [address] R Unavailable Unavailable Unavailable HERNANDEZ, MAIRA Unavailable [address] + [place] [address] HARTZLERCHRISSANGELES Unavailable Unavailable + [place] [address] R Unavailable Unavailable Unavailable HERNANDEZ, MAIAR Unavailable [address] + [place] [address] HARTZLERANGELES Unavailable Unavailable + [place] [address] R Unavailable Unavailable Unavailable HERNANDEZ, MAIRA Unavailable [address] + [place] [address] HARTDENISAERANGELES Unavailable Unavailable + [place] [address] R Unavailable Unavailable Unavailable HERNANDEZ, MAIRA Unavailable [address] + [place] [address] HARTCHRISS KRISHNANILY Unavailable [address] + [place] [address] R Unavailable Unavailable Unavailable HERNANDEZ, MAIRA Unavailable [address] + [place] [address] HARTZLER, ANGELES Unavailable [address] + [place] [address] R Unavailable Unavailable Unavailable HERNANDEZ, MAIRA Unavailable [address] + [place] [address] HARTZLER, ANGELES Unavailable [address] + [place] [address] R Unavailable Unavailable Unavailable HERNANDEZ, MAIRA Unavailable [address] + [place] [address] HARTZLER, ANGELES Unavailable [address] + [place] [address] R Unavailable Unavailable Unavailable HERNANDEZ, MAIRA Unavailable [address] + [place] [address] HARTZLER, ANGELES Unavailable [address] + [place] [address] R Unavailable Unavailable Unavailable HERNANDEZ, MAIRA Unavailable [address] + [place] [address] HARTZLER, ANGELES Unavailable [address] + [place] [address] R Unavailable Unavailable Unavailable HERNANDEZ, MAIRA Unavailable [address] + [place] [address] HARTZLER, ANGELES Unavailable [address] + [place] [address] R Unavailable Unavailable Unavailable HERNANDEZ, MAIRA Unavailable [address] + [place] [address] HARTZLER, ANGELES Unavailable [address] + [place] [address] R Unavailable Unavailable Unavailable HERNANDEZ, MAIRA Unavailable [address] + [place] [address] HARTZLER, ANGELES Unavailable [address] + [place] [address] R Unavailable Unavailable Unavailable HERNANDEZ, MAIRA Unavailable [address] + [place] [address] HARTZLER, ANGELES Unavailable [address] + [place] [address] R Unavailable Unavailable Unavailable HERNANDEZ, MAIRA Unavailable [address] + [place] [address] WICHITADENISADIAZ ANGELES Unavailable [address] + [place] [address] R Unavailable Unavailable Unavailable HERNANDEZ, MAIRA Unavailable [address] + [place] [address] HARTZLER, ANGELES Unavailable [address] + [place] [address] R Unavailable Unavailable Unavailable HERNANDEZ, MAIRA Unavailable [address] + [place] [address] [facility]GEL[facility] Unavailable [address] + [place] [address] R Unavailable Unavailable Unavailable HERNANDEZ, MAIRA Unavailable [address] + [place] [address] [facility] ANGELES Unavailable [address] + [place] [address] R Unavailable Unavailable Unavailable HERNANDEZ, MAIRA Unavailable [address] + [place] [address] [facility], ANGELES Unavailable [address] + [place] [address] R Unavailable Unavailable Unavailable HERNANDEZ, MAIRA Unavailable [address] + [place] [address] HARTER ANGELES Unavailable [address] + [place] [address] R Unavailable Unavailable Unavailable HERNANDEZ, MAIRA Unavailable [address] + [place] [address] [facility] HERNANDEZ Unavailable Unavailable Unavailable RUDDY HERNANDEZ Unavailable UNKNOWN + [place] [address] HARTDENISAERANGELES Unavailable [address] + [place] [address] R Unavailable Unavailable Unavailable HERNANDEZ, MAIRA Unavailable [address] + [place] [address] ANGELES WILCOX Unavailable Unavailable + RUDDY HERNANDEZ Unavailable Unavailable + ANGELES WILCOX Unavailable [address] + [place] [address] R Unavailable Unavailable Unavailable HERNANDEZ, MAIRA Unavailable [address] + [place] [address] ANGELES WILCOX Unavailable [address] + [place] [address] R Unavailable Unavailable Unavailable HERNANDEZ, MAIRA Unavailable [address] + [place] [address] ANGELES WILCOX Unavailable [address] + [place] [address] R Unavailable Unavailable Unavailable HERNANDEZ, MAIRA Unavailable [address] + [place] [address] Care Team Providers Name Role Phone JOAN KINCAID CNP Attending Unavailable CHUCHO, JAYCEE Primary Care Unavailable ELSI VU MD Attending Unavailable CHUCHO, JAYCEE Primary Care Unavailable ELSI VU MD Attending Unavailable JOAN KINCAID CNP Primary Care Unavailable CHUCHO, JAYCEE A Primary Care Unavailable CONSULT, ED PSYCHIATRY TEAM Consulting Unavailable ELYSE RODRIGUEZ Admitting Unavailable GOEDMOND MEJIA Attending Unavailable MELVA, GENE A Attending Unavailable MELVA, GENE A Attending Unavailable MELVA, GENE A Referring Unavailable MELVA, GENE A Attending Unavailable MELVA, GENE A Referring Unavailable MELVA, GENE A Attending Unavailable MELVA, GENE A Referring Unavailable MELVA, GENE A Attending Unavailable MELVA, GENE A Referring Unavailable MELVA, GENE A Attending Unavailable MELVA, GENE A Referring Unavailable MELVA, GENE A Attending Unavailable MELVA, GENE A Referring Unavailable Raghunathan, Elsi N. Attending Unavailable Raghunathan, Elsi N. Referring Unavailable JOAN KINCAID Primary Care Unavailable Raghunathan, Elsi N. Attending Unavailable Raghunathan, Elsi N. Referring Unavailable JOAN KINCAID Primary Care Unavailable Ector Abrams Attending Unavailable JOAN KINCAID Primary Care Unavailable Raghunathan, Elsi N. Attending Unavailable Mirella, Elsi N. Referring Unavailable JOAN KINCAID Primary Care Unavailable YANCI MURGUIA Attending Unavailable YANCI MURGUIA Referring Unavailable Joan Kincaid WINDOW TINTER-C Primary Care Unavailable [place], Joan D. WINDOW TINTER-C Primary Care Unavailable Johnson, Renny Admitting Unavailable Tanphaichitr, Natthavat Consulting Unavailable Koram, Roz Leonor Attending Unavailable [facility], Renny Admitting Unavailable [facility], Renny Attending Unavailable Joan Kincaid. WINDOW TINTER-C Primary Care Unavailable [facility], Renny Consulting Unavailable [facility], Renny Admitting Unavailable DuboisJoan markham. WINDOW TINTER-C Primary Care Unavailable Ashelfah, Ghasem Consulting Unavailable Ashelfah, Ghasem Attending Unavailable [facility], Renny Admitting Unavailable CodiJoan markham. WINDOW TINTER-C Primary Care Unavailable Ashelfah, Ghasem Consulting Unavailable Ashelfah, Ghasem Attending Unavailable [facility], Renny Admitting Unavailable DuboisJoan markham. WINDOW TINTER-C Primary Care Unavailable Tanphaichitr, Natthavat Consulting Unavailable Ashelfah, Ghasem Attending Unavailable Ashelfah, Ghasem Consulting Unavailable [facility], Renny Admitting Unavailable Joan Kincaid. WINDOW TINTER-C Primary Care Unavailable Tanphaichitr, Natthavat Consulting Unavailable Ashelfah, Ghasem Attending Unavailable Ashelfah, Ghasem Consulting Unavailable [facility], Renny Admitting Unavailable DuboisJoan markham. WINDOW TINTER-C Primary Care Unavailable Tanphaichitr, Natthavat Consulting Unavailable Ashelfah, Ghasem Attending Unavailable Ashelfah, Ghasem Consulting Unavailable [facility], Renny Admitting Unavailable DuboisJoan markham. WINDOW TINTER-C Primary Care Unavailable Tanphaichitr, Natthavat Consulting Unavailable Koram, Roz Leonor Attending Unavailable Koram, Roz Leonor Consulting Unavailable [facility], Renny Admitting Unavailable Joan Kincaid. WINDOW TINTER-C Primary Care Unavailable Tanphaichitr, Natthavat Consulting Unavailable Koram, Roz Leonor Attending Unavailable Koram, Roz Leonor Consulting Unavailable Jose Alberto, Jayaprakash Attending Unavailable Joan Kincaid. WINDOW TINTER-C Primary Care Unavailable Jose Alberto, Jayaprakash Referring Unavailable Tyrone Espitia Consulting Unavailable YANCI MURGUIA Consulting Unavailable Raghunathan, Elsi N. Attending Unavailable Raghunathan, Elsi N. Referring Unavailable Joan Kincaid. WINDOW TINTER-C Primary Care Unavailable Jose Alberto, Jayaprakash Consulting Unavailable YANCI MURGUIA Consulting Unavailable YANCI MURGUIA Attending Unavailable YANCI MURGUIA Referring Unavailable Joan Kincaid WINDOW TINTER-C Primary Care Unavailable Raghunathan, Elsi N. Consulting Unavailable Raghunathan, Elsi N. Attending Unavailable Raghunathan, Elsi N. Referring Unavailable Joan Kincaid. WINDOW TINTER-C Primary Care Unavailable Jose Alberto, Jayaprakash Attending Unavailable Jose Alberto, Jayaprakash Referring Unavailable CodiJoan markham. WINDOW TINTER-C Primary Care Unavailable CodiJoan markham. WINDOW TINTER-C Attending Unavailable CodiJoan perez. WINDOW TINTER-C Referring Unavailable DuboisJoan perez. WINDOW TINTER-C Primary Care Unavailable YANCI MURGUIA Attending Unavailable YANCI MURGUIA Referring Unavailable Joan Kincaid. WINDOW TINTER-C Primary Care Unavailable Raghunathan, Elsi N. Consulting Unavailable YANCI MURGUIA Attending Unavailable YANCI MURGUIA Referring Unavailable Joan Kincaid WINDOW TINTER-C Primary Care Unavailable Raghunathan, Elsi N. Consulting Unavailable Raghunathan, Elsi N. Attending Unavailable Raghunathan, Elsi N. Referring Unavailable Joan Kincaid. WINDOW TINTER-C Primary Care Unavailable Raghunathan, Elsi N. Attending Unavailable Raghunathan, Elsi N. Referring Unavailable Joan Kincaid. WINDOW TINTER-C Primary Care Unavailable Raghunathan, Elsi N. Attending Unavailable Raghunathan, Elsi N. Referring Unavailable Joan Kincaid. WINDOW TINTER-C Primary Care Unavailable YANCI MURGUIA Attending Unavailable YANCI MURGUIA Referring Unavailable Joan Kincaid. WINDOW TINTER-C Primary Care Unavailable Raghunathan, Elsi N. Consulting Unavailable PROBLEMS PROBLEMS DATE TYPE CONDITION / CODE ATTENDING STATUS SOURCE Unknown R79.89 - Other Raghunathan, Active [place] 8 specified abnormal Elsi N. Community findings of blood Hospital chemistry / Repository R79.89(ICD-10) Unknown E21.0 - Primary Raghunathan, Active [place] 8 hyperparathyroidism / [place] N. Community E21.0(ICD-10) Hospital Repository Unknown E04.2 - Nontoxic YANCI MURGUIA Active [place] 8 multinodular goiter / Community E04.2(ICD-10) Hospital Repository Unknown Z51.81 - Encounter for YANCI MURGUIA Active [place] 8 therapeutic drug level [facility] monitoring / Hospital Z51.81(ICD-10) Repository Unknown N18.3 - Chronic kidney Jose Alberto, Active [place] 8 disease, stage 3 [facility] (moderate) / Hospital N18.3(ICD-10) Repository Unknown E83.52 - Hypercalcemia Mirella, Active [place] 8 / E83.52(ICD-10) 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-10) [facility] Repository Admitting Manic episode, [place] [address] diagnosis unspecified / University F30.9(ICD-10) [facility] Repository Admitting Hypo-osmolality and [place] [address] diagnosis hyponatremia / University E87.1(ICD-10) [facility] Repository Admitting Other disorders of [place] D[place] [address] diagnosis phosphorus metabolism / [place] E83.39(ICD-10) [facility] Repository Admitting Anemia, unspecified / [place] [address] diagnosis D64.9(ICD-10) [facility] Repository Admitting Other specified [place] DUT[place] [address] diagnosis abnormal findings of [place] blood chemistry / [facility] R79.89(ICD-10) Center Repository Admitting Secondary [place] DUTTON [place] [address] diagnosis hyperparathyroidism of [place] renal origin / [facility] N25.81(ICD-10) Center Repository Admitting Bipolar disorder, [place] D[place] [address] diagnosis currently in remission, [place] most recent episode [facility] unspecified / Center F31.70(ICD-10) Repository Admitting Anxiety disorder, [place] DUT[place] [address] diagnosis unspecified / [place] F41.9(ICD-10) [facility] Repository Admitting Other iron deficiency [place] DUT[place] [address] diagnosis anemias / D50.8(ICD-10) [facility] Repository Admitting Hyperparathyroidism, ED[place] DUTTON [place] [address] diagnosis unspecified / [place] E21.3(ICD-10) [facility] Repository Admitting Chronic kidney disease, [place] DUTTON [place] [address] diagnosis stage 3 (moderate) / University N18.3(ICD-10) [facility] Repository Admitting Acute kidney failure, EDMOND DUTTON [place] [address] diagnosis unspecified / [place] N17.9(ICD-10) [facility] Repository Admitting Hypercalcemia / [place] DUTTON [place] [address] diagnosis E83.52(ICD-10) [facility] Repository Admitting Hyperosmolality and [place] DUTTON [place] [address] diagnosis hypernatremia / University E87.0(ICD-10) [facility] Repository Unknown 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 Community / E55.9(ICD-10) Hospital Repository PROCEDURES PROCEDURES No Procedure Records FoundRESULTS RESULTS NM THYROID IMAGING Observed: 10/18/2018 Status: F Source: Tweet Category W/UPTAKE MULTIPLE 1:00 PM [facility]OUNDATION REPOSITORY ORIGINAL NM THYROID IMAGING W/UPTAKE MULTIPLE Clinical Statement: THYROID NODULE Technique: Radiopharmaceutical: I 123 PO Dose: 270 uCi Anterior and anterior oblique pinhole images Iodine uptake measurements at 6 and 24 hours Comparison study: Parathyroid scan 10/01/2018 Report: The 6 hour iodine uptake is 6.1% The 24 hour iodine uptake is 12.3% There is mild asymmetric enlargement of the RIGHT thyroid lobe with increased activity with relation to the LEFT, although no focal region of increased or decreased activity is identified within either thyroid lobe. Thyroid uptake at 6 and 24 hours is at the lower limits of normal. Impression: Mild asymmetric enlargement of the RIGHT thyroid lobe, no evidence of a focally increased or decreased region of activity. The images match the distribution of activity on the comparison par athyroid study. Therefore, there are no findings suggesting parathyroid adenoma on the prior comparison exam. Thyroid radiopharmaceutical uptake at the lower limits of normal. An ultrasound of the thyro id may be useful there is further clinical concern. I have personally reviewed the images of this examination and agree with the resident's findings and interpretation. Interpreted By: Daryl Diaz MD Preliminary Report By: Sixto Veronica MD Electronically Signed By: Daryl Diaz MD Dictated Date: 10/19/2018 8:18:04 AM Prelim Date: 10/19/2018 8:26:57 AM Sign Date: 10/19/2018 10:25:15 AM BASIC METABOLIC Collected: 10/14/2018 Status: F Source: [place] PROFILE (BMP) 1:14 PM [facility] REPOSITORY TYPE CODE TESTS RESULT OUT OF RANGE REFERENCE UNITS LAB L501.0100 74-106 mg/dL Normal GLU 77 Result Comment: Please note revised GLUCOSE reference range effective 2017. LAB L501.1000 7-18 mg/dL High BUN 32 LAB L501.1100 0.55-1.02 mg/dL High CREAT,SERUM 1.32 Result Comment: The validity of the calculated GFR AND GFRAA in patients over 70 years has not been determined. Clinical correlation is essential. LAB L501.1110 >60 mL/min Low EST GFR 42 Result Comment: Non- GFR Calc LAB L501.1115 >60 mL/min Low EST GFR - AA 51 Result Comment: GFR Calc LAB L501.1300 10-20 RATIO High BUN/CRE 24.2 LAB L501.2200 8.5-10.1 mg/dL CA Normal 9.6 LAB L501.5300 136-145 mmol/L NA Normal 141 LAB L501.5600 3.5-5.1 mmol/L K Normal 4.3 LAB L501.5900 98-107 mmol/L CL Normal 107 LAB L501.6100 21.0-32.0 mmol/L Normal CO2 29.0 LAB L501.6200 5-15 Normal GAP 5 Performed By: #### L500.2500 #### [facility] [address] [place], [address] PROGRESS Observed: 10/07/2018 Status: COMPLETED Source: [place] 5:02 PM [facility] REPOSITORY HNO ID: [id number] Author: Turner Strauss Service: (none) Author Type: Psychologist Type: Progress Notes Filed: 10/07/2018 6:08 PM Note Text: [facility] Progress Note Fior Camarillogs 10/07/2018 [id number] Provider: Turner Strauss PHD CPT Code: 72923 Psychotherapy 38-52 minutes Time: Approximately 50 minutes was spent in therapy. Parties Present: Patient, Spouse Patient Presentation/Concerns: pt recently had electrolytes and organs off and several months to get dx right ... ending up in several hospitals NOW.. Pt has been fairly stable several months... Considerably less tangential conversations Fearful she will have a repeat of the terrible months including hallucinations possibly from UTI instead of mental health Sister Maria L she was very close w of alzheimers and considering going to [place] to gathering Mental Status: Mood: variable Affect: mood-congruent Thoughts/Associations:goal directed Suicidal/Homicidal Ideation: None expressed or evidenced Other Observations: None Therapy Focus Self-care, Stress management, Mood/affect regulation, Family relationships and Self-esteem MEDICATIONS: Per medical record: No current outpatient prescriptions on file. No current facility-administered medications for this visit. Psychiatric Medication Issues: better regulated DIAGNOSIS: [place] I Bipolar I r/o Schizophrenia as a separate event ?? [place] II: deferred [place] III: see med notes.... Diabetes controlled [place] IV: periods of depression anxiety corina and psychosis [place] V: 51 Treatment Modality/Interventions: Cognitive Behavioral Reassurance/Supportive Insight oriented Problem solving TREATMENT ASSESSMENT/PROGRESS: . Progressing satisfactorily. TREATMENT PLAN/GOALS: Continue in therapy focusing on self- care, stress management, affect management and anxiety management. Next appointment: as scheduled Turner Strauss, PHD BASIC METABOLIC Collected: 10/07/2018 Status: F Source: [place] PROFILE (BMP) 1:05 PM [facility] REPOSITORY Order Comment: BMP FOR DR OLSEN REST FOR DR VU TYPE CODE TESTS RESULT OUT OF RANGE REFERENCE UNITS LAB L501.0100 74-106 mg/dL Normal GLU 84 Result Comment: Please note revised GLUCOSE reference range effective 2017. LAB L501.1000 7-18 mg/dL High BUN 39 LAB L501.1100 0.55-1.02 mg/dL High CREAT,SERUM 1.40 Result Comment: The validity of the calculated GFR AND GFRAA in patients over 70 years has not been determined. Clinical correlation is essential. LAB L501.1110 >60 mL/min Low EST GFR 40 Result Comment: Non- GFR Calc LAB L501.1115 >60 mL/min Low EST GFR - AA 48 Result Comment: GFR Calc LAB L501.1300 10-20 RATIO High BUN/CRE 27.9 LAB L501.2200 8.5-10.1 mg/dL CA Normal 9.8 LAB L501.5300 136-145 mmol/L NA Normal 141 LAB L501.5600 3.5-5.1 mmol/L K Normal 4.2 LAB L501.5900 98-107 mmol/L CL Normal 106 LAB L501.6100 21.0-32.0 mmol/L Normal CO2 29.0 LAB L501.6200 5-15 Normal GAP 6 Performed By: #### L500.2500, L501.08993, L501.9520, L506.0400 #### [facility] [address] [facility] [place], [address] FREE T3 Collected: 10/07/2018 Status: F Source: [place] 1:05 PM [facility] REPOSITORY Order Comment: BMP FOR DR OLSEN REST FOR DR VU TYPE CODE TESTS RESULT OUT OF RANGE REFERENCE UNITS LAB L501.63144 2.18-3.98 pg/mL Normal FREE T3 2.6 Performed By: #### L500.2500, L501.61956, L501.9520, L506.0400 #### [facility] [address] [facility] [place], [address] THYROID STIM HORMONE Collected: 10/07/2018 Status: F Source: [place] (TSH) 1:05 PM [facility] REPOSITORY Order Comment: BMP FOR DR OLSEN REST FOR DR VU TYPE CODE TESTS RESULT OUT OF RANGE REFERENCE UNITS LAB L501.9520 0.358-3.74 uIU/mL Low TSH 0.12 Performed By: #### L500.2500, L501.69509, L501.9520, L506.0400 #### [facility] [address] [place], [address] T4 FREE DIRECT Collected: 10/07/2018 Status: F Source: [place] 1:05 PM [facility] REPOSITORY Order Comment: BMP FOR DR OLSEN REST FOR DR VU TYPE CODE TESTS RESULT OUT OF RANGE REFERENCE UNITS LAB L506.0400 0.76-1.46 ng/dL Normal T4 FREE 0.98 DIRECT Performed By: #### L500.2500, L501.20640, L501.9520, L506.0400 #### [facility] [address] [facility] [place], [address] THYROID PEROXIDASE AB Collected: 10/07/2018 Status: F Source: [place] 1:05 PM [facility] REPOSITORY Order Comment: BMP FOR DR OLSEN REST FOR DR UV TYPE CODE TESTS RESULT OUT OF RANGE REFERENCE UNITS LAB L3300.6900 0-34 IU/mL Normal TPO AB 17 1276 Result Comment: Performed at: - [facility] [id number] Spiritual Counselor: Keara Salazar MD, Phone: [phone] Performed at: [facility] [id number] Spiritual Counselor: Hunter Myers PhD, Phone: [phone] Performed By: #### L3300.6900, L3400.6765 #### [facility] (refer to report for specific site) refer to report for address and phone number THYROID STIM Collected: 10/07/2018 Status: F Source: [place] IMMUNOGLOB 1:05 PM [facility] REPOSITORY Order Comment: BMP FOR DR OLSEN REST FOR DR VU TYPE CODE TESTS RESULT OUT OF RANGE REFERENCE UNITS LAB L3400.4700 0.00-0.55 IU/L Normal TSI [id number] 0.31 Performed By: #### L3300.6900, L3400.4700 #### [facility] (refer to report for specific site) refer to report for address and phone number THYROID Observed: 10/07/2018 Status: F Source: [place] 12:42 PM [facility] REPOSITORY [facility] [address] [place] [address] Thyroid MR#: [id number] Acct: [id number] Name: FIOR HERNANDEZ Rep #: [id number] : 1950 F 68 From: Kajal Wyatt MD PCP: Joan Kincaid, WINDOW TINTER-C Status: REG CLI Study: Thyroid Date of Exam: 10/07/18 Exam# [id number] Ordering Dr: Elsi Vu MD STUDY: THYROID ULTRASOUND REASON FOR EXAM: Female, 68 years old. Nodules TECHNIQUE: Ultrasound evaluation of the thyroid was performed with real-time and static couch-scale imaging. COMPARISON: None. FINDINGS: RIGHT LOBE: The right lobe of the thyroid gland measures 5.5 x 2.7 x 2.8 cm. There is a homogeneous echotexture. There is a solid 1.3 x 1.1 x 0.8 cm nodule within the mid pole that demonstrates internal vascularity. There is a 4 mm colloid cyst visualized as well within the right lobe. LEFT LOBE: The left lobe of the thyroid gland measures 5.3 x 2.0 x 2.2 cm. There is a homogeneous echotexture. There is a solid 1.0 x 0.8 x 1.0 cm nodule within the left lobe that demonstrates minimal internal vascularity. There is a 0.5 x 0.4 x 0.4 mm complex nodule within the left lobe of the gland as well. There is a additional well-circumscribed anechoic focus within the left lobe measuring up to 4 mm that likely reflects a colloid cyst. ISTHMUS: The isthmus measures 7 mm . There is a colloid cyst within the isthmus measuring up to 7 mm. The regional lymph nodes are normal. US/Thyroid IMPRESSION: Enlarged thyroid gland. Bilateral solid nodules the largest measuring up to 1.3 x 1.1 x 0.8 cm within the right lobe. Bilateral colloid cysts. Electronically Signed: Kajal Wyatt MD at 15:40 EST Tel , Service support , CC: Elsi Vu MD; WINDOW TINTER-C Joan Kincaid White Lead Grinder: Signed NM PARATHYROID STUDY Observed: 10/01/2018 Status: F Source: [place] 11:00 AM [facility] REPOSITORY ORIGINAL NM PARATHYROID Scan Clinical Statement: hyperparathyroidism Technique: Radiopharmaceutical: Tc 99m sestamibi IV, Dose: 24.8mCi Sequential anterior pinhole gamma camera imaging of the neck for 25 minutes, oblique images, and GAP imaging of the neck and mediastinum. Findings: There is a mild asymmetric enlargement of the RIGHT thyroid lobe with mildly more increased activity. Otherwise, no additional abnormality is seen. No ectopic focus is noted in the mediastinum. IMPRESSION: Mild asymmetric enlargement of the RIGHT thyroid lobe with more increased activity, which could be due to an underlying parathyroid adenoma versus thyroid disease. Interpreted By: Aris Schmidt DO Preliminary Report By: Aris Schmidt DO Electronically Signed By: Aris Schmidt DO Dictated Date: 10/02/2018 9:51:11 AM Prelim Date: 10/02/2018 9:51:11 AM Sign Date: 10/02/2018 9:53:20 AM CALCIUM, URINE 24HR Collected: 09/29/2018 Status: F Source: [place] 8:00 AM [facility] REPOSITORY TYPE CODE TESTS RESULT OUT OF RANGE REFERENCE UNITS LAB L501.2280 2 Normal Calcium UR pH LAB L501.2281 24.0-24.0 HR 24.0 Normal UR Collect Time LAB L501.2288 ml 5175 Normal UR Total Volume LAB L501.2290 Not Estab. < 5.0 Normal Urine Calcium LAB L501.2293 42.0-353.0 mg/24 HR Test Normal 24HR UR not performed Calcium Performed By: #### L500.7000 #### [facility] [address] [facility] [place], [address] 24 HR URINE CREATININE Collected: 09/29/2018 Status: F Source: [place] 8:00 AM [facility] REPOSITORY TYPE CODE TESTS RESULT OUT OF RANGE REFERENCE UNITS LAB L502.0100 24.0 HOURS 24.0 Normal UR COLLECT TIME LAB L502.0200 L 5.20 Normal UR TOTAL VOLUME LAB L502.0300 NO RANGE EST. mg/dL < Normal URINE CREAT 13.00 LAB L502.0400 0.70-1.90 g/24 HR Test Normal UR.CREAT/24hr not performed Performed By: #### L502.000 #### [facility] [facility] [place], [address] PTHIN Collected: 09/27/2018 Status: F Source: [place] 1:12 PM [facility] REPOSITORY TYPE CODE TESTS RESULT OUT OF RANGE REFERENCE UNITS LAB L509.1000 18.4-80.1 pg/mL Normal PTHIN 59.5 Performed By: #### L509.1000 #### [facility] [place], [place], [address] VITAMIN D,25 HYDROXY Collected: 09/27/2018 Status: F Source: [place] 1:12 PM [facility] REPOSITORY TYPE CODE TESTS RESULT OUT OF RANGE REFERENCE UNITS LAB L506.1000 29.95-100.01 ng/mL Normal Vitamin D 53.5 25-OH Result Comment: Vitamin D 25(OH) Status Range Deficiency <20 ng/mL (50nmol/L) Insuffciency 20 - 30 ng/mL (50 - 75 nmol/L) Sufficiency 30 - 100 ng/mL (75 - 250 nmol/L) Toxicity >100 ng/mL (>250 nmol/L) Performed By: #### L506.1000 #### [facility] [address] [facility] [place], [place], [address] COMPREHENSIVE METABOLIC Collected: 09/27/2018 Status: F [facility] REPOSITORY TYPE CODE TESTS RESULT OUT OF RANGE REFERENCE UNITS LAB L501.0100 74-106 mg/dL Normal GLU 99 Result Comment: Please note revised GLUCOSE reference range effective 2017. LAB L501.1000 7-18 mg/dL High BUN 35 LAB L501.1100 0.55-1.02 mg/dL High CREAT,SERUM 1.48 Result Comment: The validity of the calculated GFR AND GFRAA in patients over 70 years has not been determined. Clinical correlation is essential. LAB L501.1110 >60 mL/min Low EST GFR 37 Result Comment: Non- GFR Calc LAB L501.1115 >60 mL/min Low EST GFR - AA 45 Result Comment: GFR Calc LAB L501.1300 10-20 RATIO High BUN/CRE 23.6 LAB L501.1500 6.4-8.2 g/dL T Normal PROT 7.3 LAB L501.1800 3.2-5.0 g/dL Normal ALB 3.7 LAB L501.1950 2.2-4.2 g/dL Normal GLOB 3.6 LAB L501.2000 0.9-2.4 RATIO Normal A/G 1.0 LAB L501.2200 8.5-10.1 mg/dL CA Normal 9.4 LAB L501.4100 15-37 U/L Normal AST 17 LAB L501.4305 45-117 U/L Normal ALK P 85 LAB L501.4405 13-56 U/L Normal ALT 25 LAB L501.4600 0.20-1.00 mg/dL T Normal BILI 0.20 LAB L501.5300 136-145 mmol/L NA Normal 142 LAB L501.5600 3.5-5.1 mmol/L K Normal 4.3 LAB L501.5900 98-107 mmol/L CL Normal 105 LAB L501.6100 21.0-32.0 mmol/L Normal CO2 27.0 LAB L501.6200 5-15 Normal GAP 10 Performed By: #### L500.4050, L501.2300, L501.9520, L506.0400 #### [facility] [address] [place], [address] PHOSPHORUS Collected: 09/27/2018 Status: F Source: [place] 1:12 PM [facility] REPOSITORY TYPE CODE TESTS RESULT OUT OF RANGE REFERENCE UNITS LAB L501.2300 2.5-4.9 mg/dL Normal PHOS 3.1 Performed By: #### L500.4050, L501.2300, L501.9520, L506.0400 #### [facility] [address] [place], [address] THYROID STIM HORMONE Collected: 09/27/2018 Status: F Source: [place] (TSH) 1:12 PM [facility] REPOSITORY TYPE CODE TESTS RESULT OUT OF RANGE REFERENCE UNITS LAB L501.9520 0.358-3.74 uIU/mL Low TSH 0.17 Performed By: #### L500.4050, L501.2300, L501.9520, L506.0400 #### [facility] [address] [place], [address] T4 FREE DIRECT Collected: 09/27/2018 Status: F Source: [place] 1:12 PM [facility] REPOSITORY TYPE CODE TESTS RESULT OUT OF RANGE REFERENCE UNITS LAB L506.0400 0.76-1.46 ng/dL Normal T4 FREE 1.00 DIRECT Performed By: #### L500.4050, L501.2300, L501.9520, L506.0400 #### [facility] [address] [place], [address] CALCIUM IONIZED Collected: 09/27/2018 Status: F Source: [place] 1:12 PM [facility] REPOSITORY TYPE CODE TESTS RESULT OUT OF RANGE REFERENCE UNITS LAB L3100.9600 4.5-5.6 mg/dL Normal IONIZED CA 5.6 Result Comment: Performed at: - [facility] [id number] Spiritual Counselor: Hunter Myers PhD, Phone: [phone] Performed By: #### L3100.9600 #### [facility] (refer to report for specific site) refer to report for address and phone number VITAMIN D 1,25-DIHYDROXY Collected: 09/27/2018 Status: F Source: [place] 1:12 PM [facility] REPOSITORY TYPE CODE TESTS RESULT OUT OF RANGE REFERENCE UNITS LAB L3300.0960 19.9-79.3 pg/mL Normal VITD 1,25 35.3 86175 Result Comment: Performed at: [facility] [id number] Spiritual Counselor: Keara Salazar MD, Phone: [phone] Performed By: #### L3300.0960 #### [facility] (refer to report for specific site) refer to report for address and phone number BASIC METABOLIC Collected: 09/09/2018 Status: F Source: [place] PROFILE (BMP) 1:18 PM [facility] REPOSITORY TYPE CODE TESTS RESULT OUT OF RANGE REFERENCE UNITS LAB L501.0100 74-106 mg/dL Normal GLU 78 Result Comment: Please note revised GLUCOSE reference range effective 2017. LAB L501.1000 7-18 mg/dL High BUN 27 LAB L501.1100 0.55-1.02 mg/dL High CREAT,SERUM 1.34 Result Comment: The validity of the calculated GFR AND GFRAA in patients over 70 years has not been determined. Clinical correlation is essential. LAB L501.1110 >60 mL/min Low EST GFR 42 Result Comment: Non- GFR Calc LAB L501.1115 >60 mL/min Low EST GFR - AA 50 Result Comment: GFR Calc LAB L501.1300 10-20 RATIO High BUN/CRE 20.1 LAB L501.2200 8.5-10.1 mg/dL CA Normal 9.5 LAB L501.5300 136-145 mmol/L NA Normal 144 LAB L501.5600 3.5-5.1 mmol/L K Normal 4.4 LAB L501.5900 98-107 mmol/L High CL 110 LAB L501.6100 21.0-32.0 mmol/L Normal CO2 27.0 LAB L501.6200 5-15 Normal GAP 7 Performed By: #### L500.2500 #### [facility] [address] [place], [address] BASIC METABOLIC Collected: 08/16/2018 Status: F Source: [place] PROFILE (BMP) 11:17 AM [facility] REPOSITORY TYPE CODE TESTS RESULT OUT OF RANGE REFERENCE UNITS LAB L501.0100 74-106 mg/dL Normal GLU 83 Result Comment: Please note revised GLUCOSE reference range effective 2017. LAB L501.1000 7-18 mg/dL High BUN 29 LAB L501.1100 0.55-1.02 mg/dL High CREAT,SERUM 1.71 Result Comment: The validity of the calculated GFR AND GFRAA in patients over 70 years has not been determined. Clinical correlation is essential. LAB L501.1110 >60 mL/min Low EST GFR 31 Result Comment: Non- GFR Calc LAB L501.1115 >60 mL/min Low EST GFR - AA 38 Result Comment: GFR Calc LAB L501.1300 10-20 RATIO Normal BUN/CRE 17.0 LAB L501.2200 8.5-10.1 mg/dL CA Normal 9.8 LAB L501.5300 136-145 mmol/L High NA 146 LAB L501.5600 3.5-5.1 mmol/L K Normal 4.2 LAB L501.5900 98-107 mmol/L High CL 111 LAB L501.6100 21.0-32.0 mmol/L Normal CO2 27.0 LAB L501.6200 5-15 Normal GAP 8 Performed By: #### L500.2500 #### [facility] [address] [facility] [place], [address] KIDNEY AND BLADDER Observed: 08/09/2018 Status: F Source: [place] 12:49 PM [facility] REPOSITORY [facility] Imaging Services [address] [place] [address] Kidney and Bladder MR#: [id number] Acct: [id number] Name: FIOR HERNANDEZ Rep #: [id number] : 1950 F 68 From: Toñito Saxena MD PCP: AMPARO Berumen Status: REG CLI Study: Kidney and Bladder Date of Exam: 08/09/18 Exam# [id number] Ordering Dr: Joan Kincaid STUDY: RENAL ULTRASOUND - COMPLETE REASON FOR EXAM: Female, 68 years old. Diabetes insipidus TECHNIQUE: Ultrasound evaluation of the kidneys was performed with real-time and static mckay-scale imaging. COMPARISON: None. FINDINGS: RIGHT KIDNEY: Normal location of the right kidney, which is normal in size. The right kidney measures 8.6 x 5.6 x 3.6 cm. There is diffuse thinning of the renal cortex. There is a 1.4 cm simple cyst. There are no right renal calculi. There is no right hydronephrosis. DISTAL RIGHT URETER: There is non-visualization of the distal right ureter. There is no demonstrated right ureterovesical junction calculus. There is a visualized right ureteral jet. LEFT KIDNEY: Normal location of the left kidney, which is normal in size. The left kidney measures 3.5 x 4.4 x 4.1 cm. There is diffuse thinning of the renal cortex. There is a simple 1.37 m cyst. There are no left renal calculi. There is no left hydronephrosis. DISTAL LEFT URETER: There is non-visualization of the distal left ureter. There is no demonstrated left ureterovesical junction calculus. There is a visualized left ureteral jet. AORTA: There is no elongation or tortuosity of the abdominal aorta. I.V.C.: The IVC is patent. BLADDER: The bladder capacity is 223.96 mL with postvoid residual of 46.02 mL. The post void residual places the patient at risk for urinary reflux and UTIs. Kidneys are echogenic suggesting medical renal disease. US/Kidney and Bladder IMPRESSION: Normal sized echogenic kidneys suggest medical renal disease, likely due to diabetes. Post void residual of 46.[address] the patient risk for urinary reflux and UTIs Electronically Signed: Fritz Saxena MD at 16:30 EDT , Service support , CC: AMPARO Kincaid White Lead Grinder: Signed BASIC METABOLIC Collected: 08/02/2018 Status: F Source: [place] PROFILE (BMP) 10:29 AM [facility] REPOSITORY TYPE CODE TESTS RESULT OUT OF RANGE REFERENCE UNITS LAB L501.0100 74-106 mg/dL Normal GLU 105 Result Comment: Fasting Glucose result from 100 to 125 mg/dL suggests IMPAIRED HOMEOSTASIS per A.D.A. criteria. Please note revised GLUCOSE reference range effective 2017. LAB L501.1000 7-18 mg/dL High BUN 21 LAB L501.1100 0.55-1.02 mg/dL High CREAT,SERUM 1.53 Result Comment: The validity of the calculated GFR AND GFRAA in patients over 70 years has not been determined. Clinical correlation is essential. LAB L501.1110 >60 mL/min Low EST GFR 36 Result Comment: Non- GFR Calc LAB L501.1115 >60 mL/min Low EST GFR - AA 43 Result Comment: GFR Calc LAB L501.1300 10-20 RATIO Normal BUN/CRE 13.7 LAB L501.2200 8.5-10.1 mg/dL High CA 10.2 LAB L501.5300 136-145 mmol/L NA Normal 145 LAB L501.5600 3.5-5.1 mmol/L K Normal 4.2 LAB L501.5900 98-107 mmol/L High CL 110 LAB L501.6100 21.0-32.0 mmol/L Normal CO2 26.0 LAB L501.6200 5-15 Normal GAP 9 Performed By: #### L500.2500 #### [facility] [address] [facility], [address] BASIC METABOLIC Collected: 07/22/2018 Status: F Source: [place] PROFILE ([facility]) 10:30 AM [facility] REPOSITORY Order Comment: PLEASE SEND RESULTS TO AND JOAN KINCAID [employer] ALSO. TYPE CODE TESTS RESULT OUT OF RANGE REFERENCE UNITS LAB L501.0100 74-106 mg/dL High GLU 201 Result Comment: Glucose result greater than or equal to 200 mg/dL suggests DIABETES MELLITUS per A.D.A. criteria. Please note revised GLUCOSE reference range effective 2017. LAB L501.1000 7-18 mg/dL High BUN 19 LAB L501.1100 0.55-1.02 mg/dL High CREAT,SERUM 1.84 Result Comment: The validity of the calculated GFR AND GFRAA in patients over 70 years has not been determined. Clinical correlation is essential. LAB L501.1110 >60 mL/min Low EST GFR 29 Result Comment: Non- GFR Calc LAB L501.1115 >60 mL/min Low EST GFR - AA 35 Result Comment: GFR Calc LAB L501.1300 10-20 RATIO Normal BUN/CRE 10.3 LAB L501.2200 8.5-10.1 mg/dL CA Normal 10.1 LAB L501.5300 136-145 mmol/L NA Normal 142 LAB L501.5600 3.5-5.1 mmol/L K Normal 3.9 LAB L501.5900 98-107 mmol/L CL Normal 106 LAB L501.6100 21.0-32.0 mmol/L Normal CO2 25.0 LAB L501.6200 5-15 Normal GAP 11 Performed By: #### L500.2500, L501.10712, L501.9520, L506.0400 #### [facility] [address] [facility] [place], [address] FREE T3 Collected: 07/22/2018 Status: F Source: [place] 10:30 AM [facility] REPOSITORY Order Comment: PLEASE SEND RESULTS TO DR.RAGHUNATHAN AND RICHARD KINCAID [facility] ALSO. TYPE CODE TESTS RESULT OUT OF RANGE REFERENCE UNITS LAB L501.34659 2.18-3.98 pg/mL Normal FREE T3 2.5 Performed By: #### L500.2500, L501.81392, L501.9520, L506.0400 #### [facility] [address] [facility] [place], [address] THYROID STIM HORMONE Collected: 07/22/2018 Status: F Source: [place] (TSH) 10:30 AM [facility] REPOSITORY Order Comment: PLEASE SEND RESULTS TO DR.RAGHUNATHAN AND RICHARD KINCAID [facility] ALSO. TYPE CODE TESTS RESULT OUT OF RANGE REFERENCE UNITS LAB L501.9520 0.358-3.74 uIU/mL Low TSH 0.17 Performed By: #### L500.2500, L501.11505, L501.9520, L506.0400 #### [facility] [address] [place], [address] T4 FREE DIRECT Collected: 07/22/2018 Status: F Source: [place] 10:30 AM [facility] REPOSITORY Order Comment: PLEASE SEND RESULTS TO AND JOAN KINCAID [employer] ALSO. TYPE CODE TESTS RESULT OUT OF RANGE REFERENCE UNITS LAB L506.0400 0.76-1.46 ng/dL Normal T4 FREE 1.11 DIRECT Performed By: #### L500.2500, L501.95191, L501.9520, L506.0400 #### [facility] [address] [place], [place], [address] THYROID PEROXIDASE AB Collected: 07/22/2018 Status: F Source: [place] 10:30 AM [facility] REPOSITORY Order Comment: PLEASE SEND RESULTS TO AND JOAN KINCAID [employer] ALSO. TYPE CODE TESTS RESULT OUT OF RANGE REFERENCE UNITS LAB L3300.6900 0-34 IU/mL Normal TPO AB 17 6676 Result Comment: Performed at: - [facility] [id number] Spiritual Counselor: Bruce Mcgee MD, Phone: [phone] Performed at: [facility] [address] [id number] Spiritual Counselor: Hunter Myers PhD, Phone: [phone] Performed By: #### L3300.6900, L3400.4700 #### [facility] (refer to report for specific site) refer to report for address and phone number THYROID STIM Collected: 07/22/2018 Status: F Source: [place] IMMUNOGLOB 10:30 AM [facility] REPOSITORY Order Comment: PLEASE SEND RESULTS TO DR.RAGHUNATHAN AND RICHARD KINCAID [employer] ALSO. TYPE CODE TESTS RESULT OUT OF RANGE REFERENCE UNITS LAB L3400.4700 0.00-0.55 IU/L Normal TSI 355488 0.32 Performed By: #### L3300.6900, L3400.4700 #### [facility] (refer to report for specific site) refer to report for address and phone number CALCIUM, URINE 24HR Collected: 07/15/2018 Status: F Source: [place] 8:42 AM [facility] REPOSITORY TYPE CODE TESTS RESULT OUT OF RANGE REFERENCE UNITS LAB L501.2280 Normal Calcium UR pH 2 LAB L501.2281 24.0-24.0 HR Normal UR Collect 24.0 Time LAB L501.2288 ml Normal UR Total 3090 Volume LAB L501.2290 Not Estab. Normal Urine Calcium 6.0 LAB L501.2293 42.0-353.0 mg/24 HR Normal 24HR UR 185.4 Calcium Performed By: #### L500.7000 #### [facility] [address] [place], [address] MISCELLANEOUS LAB Collected: 07/15/2018 Status: F Source: [place] PROCEDURE 8:00 AM [facility] REPOSITORY Order Comment: CREATININE 24 URINE WITH 6N HCL [id number] RT Comments: CREATININE 24 URINE WITH 6N HCL [id number] RT Test(s) Ordered: CREATININE 24 URINE WITH 6N HCL [id number] RT TYPE CODE TESTS RESULT OUT OF RANGE REFERENCE UNITS LAB L801.1541 Normal [facility] LAB TEST Result Comment: TEST RESULT FLAG UNITS REF INTERVAL Creatinine, 24-Hour Urine Creatinine, Urine 23.4 mg/dL Not Estab. Creatinine, Ur 24hr 723 Low mg/24 hr 800 - 1800 TESTING PERFORMED AT [facility] [place]. ORIGINAL REPORT ON FILE IN LAB CONTAINS ADDITIONAL TEST SITE INFORMATION. Performed By: #### L801.1541 #### [facility] [address] [place], [address] COMPREHENSIVE METABOLIC Collected: 07/13/2018 Status: F Source: [place] PROFIL 9:54 AM [facility] REPOSITORY TYPE CODE TESTS RESULT OUT OF RANGE REFERENCE UNITS LAB L501.0100 74-106 mg/dL High GLU 185 Result Comment: Fasting Glucose result greater than or equal to 126 mg/dL suggests DIABETES MELLITUS per A.D.A. criteria. Please note revised GLUCOSE reference range effective 2017. LAB L501.1000 7-18 mg/dL Normal BUN 17 LAB L501.1100 0.55-1.02 mg/dL High CREAT,SERUM 2.00 Result Comment: The validity of the calculated GFR AND GFRAA in patients over 70 years has not been determined. Clinical correlation is essential. LAB L501.1110 >60 mL/min Low EST GFR 26 Result Comment: Non- GFR Calc LAB L501.1115 >60 mL/min Low EST GFR - AA 32 Result Comment: GFR Calc LAB L501.1300 10-20 RATIO Low BUN/CRE 8.5 LAB L501.1500 6.4-8.2 g/dL Normal T PROT 7.1 LAB L501.1800 3.2-5.0 g/dL Normal ALB 3.5 LAB L501.1950 2.2-4.2 g/dL Normal GLOB 3.6 LAB L501.2000 0.9-2.4 RATIO Normal A/G 1.0 LAB L501.2200 8.5-10.1 mg/dL High CA 10.7 LAB L501.4100 15-37 U/L Normal AST 15 LAB L501.4305 45-117 U/L Normal ALK P 83 LAB L501.4405 13-56 U/L Normal ALT 31 LAB L501.4600 0.20-1.00 mg/dL Normal T BILI 0.20 LAB L501.5300 136-145 mmol/L Normal NA 142 LAB L501.5600 3.5-5.1 mmol/L Normal K 3.8 LAB L501.5900 98-107 mmol/L Normal CL 103 LAB L501.6100 21.0-32.0 mmol/L Normal CO2 26.0 LAB L501.6200 5-15 Normal GAP 13 Performed By: #### L500.4050, L501.2300, L501.5200 #### [facility] [address] [place], [address] PHOSPHORUS Collected: 07/13/2018 Status: F Source: [place] 9:54 AM [facility] REPOSITORY TYPE CODE TESTS RESULT OUT OF RANGE REFERENCE UNITS LAB L501.2300 2.5-4.9 mg/dL Normal PHOS 3.0 Performed By: #### L500.4050, L501.2300, L501.5200 #### [facility] [address] [place], [address] MAGNESIUM Collected: 07/13/2018 Status: F Source: [place] 9:54 AM [facility] REPOSITORY TYPE CODE TESTS RESULT OUT OF RANGE REFERENCE UNITS LAB L501.5200 1.6-2.6 mg/dL Normal MG 2.1 Performed By: #### L500.4050, L501.2300, L501.5200 #### [facility] [address] [place], [address] PTHIN Collected: 07/13/2018 Status: F Source: [place] 9:54 AM [facility] REPOSITORY TYPE CODE TESTS RESULT OUT OF RANGE REFERENCE UNITS LAB L509.1000 18.4-80.1 pg/mL Normal PTHIN 75.5 Performed By: #### L509.1000 #### [facility] [address] [place], [address] VITAMIN D,25 HYDROXY Collected: 07/13/2018 Status: F Source: [place] 9:54 AM [facility] REPOSITORY TYPE CODE TESTS RESULT OUT OF RANGE REFERENCE UNITS LAB L506.1000 29.95-100.01 ng/mL Normal Vitamin D 53.2 25-OH Result Comment: Vitamin D 25(OH) Status Range Deficiency <20 ng/mL (50nmol/L) Insuffciency 20 - 30 ng/mL (50 - 75 nmol/L) Sufficiency 30 - 100 ng/mL (75 - 250 nmol/L) Toxicity >100 ng/mL (>250 nmol/L) Performed By: #### L506.1000 #### [facility] [address] [place], [address] CALCIUM IONIZED Collected: 07/13/2018 Status: F Source: [place] 9:54 AM [facility] REPOSITORY TYPE CODE TESTS RESULT OUT OF REFERENCE UNITS RANGE LAB L3100.9600 4.5-5.6 mg/dL High IONIZED CA 6.3 Result Comment: Performed at: - [facility] [address] [id number] Spiritual Counselor: Hunter Myers PhD, Phone: [phone] Performed By: #### L3100.9600 #### [facility] (refer to report for specific site) refer to report for address and phone number VITAMIN D 1,25-DIHYDROXY Collected: 07/13/2018 Status: F Source: [place] 9:54 AM [facility] REPOSITORY TYPE CODE TESTS RESULT OUT OF RANGE REFERENCE UNITS LAB L3300.0960 19.9-79.3 pg/mL Low VITD 1,25 19.6 [address] Result Comment: Performed at: - [facility] [id number] Spiritual Counselor: Bruce Mcgee MD, Phone: [phone] Performed By: #### L3300.0960 #### [facility] (refer to report for specific site) refer to report for address and phone number RENAL PROFILE Collected: 07/10/2018 Status: F Source: [place] 8:21 AM [facility] REPOSITORY TYPE CODE TESTS RESULT OUT OF RANGE REFERENCE UNITS LAB L501.0100 74-106 mg/dL Normal GLU 92 Result Comment: Please note revised GLUCOSE reference range effective 2017. LAB L501.1000 7-18 mg/dL Normal BUN 18 LAB L501.1100 0.55-1.02 mg/dL High CREAT,SERUM 1.79 Result Comment: The validity of the calculated GFR AND GFRAA in patients over 70 years has not been determined. Clinical correlation is essential. LAB L501.1110 >60 mL/min Low EST GFR 30 Result Comment: Non- GFR Calc LAB L501.1115 >60 mL/min Low EST GFR - AA 36 Result Comment: GFR Calc LAB L501.1300 10-20 RATIO Normal BUN/CRE 10.1 LAB L501.1800 3.2-5.0 g/dL Normal ALB 3.6 LAB L501.2200 8.5-10.1 mg/dL High CA 10.8 LAB L501.2300 2.5-4.9 mg/dL Normal PHOS 2.9 LAB L501.5300 136-145 mmol/L High NA 148 LAB L501.5600 3.5-5.1 mmol/L K Normal 4.1 LAB L501.5900 98-107 mmol/L High CL 111 LAB L501.6100 21.0-32.0 mmol/L Normal CO2 25.0 Performed By: #### L500.3600 #### [facility] [address] [place], [address] DISCHARGE SUMMARY Observed: 07/06/2018 Status: F Source: SHENANDOAH 5:21 PM [facility] REPOSITORY [facility] Medical Records Department [address] [place] [address] Discharge Summary 07/06/18 1406 MR#: [id number] Acct: [id number] Name: FIOR CHRIS Rep #: [id number] : 1950 68 From: Tyrone VERDUZCO PCP: AMPARO Berumen Status: DIS IN Y Location: [facility] [id number] <Tyrone Espitia - Last Filed: 07/06/18 14:06> Discharge Date and Diagnosis Date of Admission: 06/29/18 Date of Discharge: 07/04/18 - Primary Discharge Diagnosis Active and Suspected Problems Acute sepsis and bacteremia 2/2 e coli UTI likely from recent catheterization Hypernatremia 2/2 nephrogenic DI Acute metabolic encephalopathy 2/2 above Bipolar disorder and severe anxiety CKDIV Dysphagia - Secondary Discharge Diagnosis Chronic Problems CKD (chronic kidney disease), stage III (Chronic) 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 RAD/Chest 1 View (Portable) IMPRESSION: Atelectasis versus infiltrate at the right lung base without other major interval change. CT/Chest without Contrast IMPRESSION: Mild degree of increased markings at the lung bases slightly worse on the right side suggestive of atelectasis and/or scarring. RAD/Chest PA and Lateral IMPRESSION: No acute abnormality is seen. Consults: Jose Alberto - nephrology Operations: None Summary of Care Provided: Physical exam on day of discharge: General: Resting comfortably NAD Psych: A/Ox3 anxious, repeating phrases HEENT: ELDERLA AT NC Neck: Supple NT CV: RRR no m/t/r/g/h Resp: CTA Abd: [id number] Soft NT no guarding or rigidity Ext: DP2+= no edema Skin: W/D normal turgor Lymph/Heme: No active bleeding or adenopathy Neuro: CN2-12 intact Hospital course: The patient is a 68 year old F with a history of CKD stage IV, nephrogenic diabetes insipidus, severe bipolar and anxiety disorder, multinodular thyroid, chronic anemia, who presented to the emergency room with change in mental status, fever and chills and burning with urination for 4 days. She had been a patient at [facility] about 10 days prior and at that point had a urinary catheter prior to discharge. In the ER she was found to have leukocytosis, elevated pulse, later she had fever, positive urinalysis indicating UTI, and a chest x-ray suspicious for pneumonia versus atelectasis. She was started on Rocephin and azithromycin for UTI and suspected pneumonia. She was admitted to the medical surgical floor. Initially she had normal sodium, but a history of DI and desmopressin therapy. She was very anxious and agitated, her behaviors included restlessness, repeating herself multiple times, confusion, tangential thinking. Her blood cultures were positive for E. coli as well as her urine. A follow-up CAT scan was done and revealed only atelectasis, no pneumonia, she had no shortness of breath or cough. Azithromycin was discontinued. Repeat cultures were taken and these were negative. He was sensitive to Rocephin so this was continued while she was here. She had 6 total days of therapy. Eventually this was transitioned to oral Keflex which the bacteria was also sensitive to. She will complete 14 days of therapy. Her sodium unfortunately was very fluctuant while here. Her compugraph operator Dr. vega was consulted. She was not drinking very much fluid at all despite increased thirst. She was placed on D5W intermittently to bring her sodium down with a goal of 6-8 mEq per day. This is very difficult to control as one fluids were discontinued she would not drink any water and her sodium would rise. Ultimately it was able to be controlled and her mental status improved and she was able to drink more water with prompting from her . The patient will need close follow- up, I have advised her to drink 2-3 L of water per day per the suggestion of nephrology, because the patient was not drinking despite thirst while here. Ideally she should titrate her free water based on her thirst however her psychiatric ussues seem to be interfering with her ability to do this. She will have a repeat BMP in 3 days and follow-up with nephrology within a week. We have also advised her to follow-up with her psychiatrist given her worsening of her anxiety and underlying psychiatric issues. While she was here her morning dose of Zyprexa was increased from 5-10. She is advised to continue this until follow-up with her psychiatrist, who her states she will be able to get her into the office on Thursday. She was discharged home in stable condition. This patient was seen by Tyrone Espitia PA-C under the supervision of Doctor Perry. [] Discharge Diet: Low fat/ Low Cholesterol, 2000 mg Sodium Diet, - - 2-3 liters water per day Discharge Activity: Return to Normal Activity Home Medications: Medications to take at Discharge Lorazepam [Ativan] 1 mg PO TID PRN 11/21/15 Desmopressin Acetate 0.1 mg PO DAILY 06/29/18 Docusate Sodium [Colace] 100 mg PO DAILY 06/29/18 Ergocalciferol [Vitamin D] 50,000 unit PO UD 06/29/18 Ferrous Sulfate 324 mg PO BID 06/29/18 Ibandronate Sodium [Boniva] 150 mg PO Q30D 06/29/18 Lamotrigine 200 mg PO DAILY 06/29/18 Olanzapine [Zyprexa] 20 mg PO QHS 06/29/18 Perphenazine 4 mg PO TID 06/29/18 Polyethylene Glycol 3350 [Powderlax] 17 gm PO DAILY 06/29/18 Acetaminophen [Tylenol Tablet] 650 mg PO Q6H PRN PRN tablet 07/06/18 Cephalexin [Keflex] 500 mg PO BID #16 cap 07/06/18 Olanzapine [Zyprexa] 10 mg PO DAILY tablet 07/06/18 Following Prescrptions Were Given to Patient: Cephalexin [Keflex] 500 mg PO BID #16 cap Primary Care Physician: Joan Knicaid, WINDOW TINTER-C [Primary Care Provider] - Please follow up with your Primary Care Physician in: 2 weeks Please Follow Up With: Ayse Abrams MD When: 1 week Please Follow Up With: Psychiatry When: Keep your appointment Thursday. 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 She was admitted via the ED with altered mental status, chills and fever as well as burning with urination for 4 days. She had had a catheter in place for about 10 days prior to presentation here while she was an admission at [facility]. She was admitted and managed for sepsis due to UTI. Chest x-ray was suspicious for pneumonia versus atelectasis. She was started on IV Rocephin and IV azithromycin. She has a history of DI and is on desmopressin therapy. Sodium was initially normal but subsequently his sodium trended up and peaked at about 150. Patient had very poor oral intake. Sodium control is labile also will get under control with administration of IV D5 water and then will subsequently go up again when D5 water was trended down. Blood culture was positive for E. coli and urine was also positive for E. coli upon culture. CT scan done was negative for pneumonia and showed only atelectasis. E. coli was sensitive to ceftriaxone and so azithromycin was DC'd and she had 6 days of IV azithromycin. She was transitioned to oral Keflex. Sodium subsequently trended down to 144 and patient's mental status improved after her psych medications were adjusted. Patient was discharged home under the care of her who is her primary caregiver. Patient counseled to taken significant amount of water to help with hypernatremia. She is to have a follow-up BMP in 3 days since follow-up with nephrology in 1 week. She is also to follow-up with a psychiatrist. Patient was discharged on 07/06/2018 with a prescription for p.o. Keflex. Patient seen and examined prior to discharge. She had no complaints and felt well and was looking forward to going home. She denies any fever or chills, any cough or chest pain, shortness of breath, abdominal pain, any diarrhea vomiting. Review of systems otherwise negative. Labs and vitals reviewed. o/e: Vital Signs Height 5 ft 5 in Weight: 134 lb 14.766 oz Weight in Pounds 134.9 lbs Pulse Ox 98 []General: more alert and cooperative today HEENT: Atraumatic, PERRLA, EOMI, Normocephalic Neck: Supple, No JVD, Negative Carotid Bruits Lungs: Clear to auscultation, Normal air movement Cardiovascular: Regular rate, No murmurs Abdomen: Bowel Sounds Present, Soft, Non Tender Extremities: No edema, Capillary Refill Less than 3 Seconds Skin: No rashes, No breakdown Musculoskeletal: No Tenderness to Palpation of Joints or Extremities Neurological: Cranial nerves II-XII grossly intact, tremors of all extremities, present at rest and with movement; has improved relative to yesterday Psych/Mental Status: calm Plan as stated above. Agree with Tyrone Espitia note and assessment and plan. Code Visit Inpatient E AND M: [id number] Disch Hosp 07/06/18 1418 <Electronically signed by Tyrone VERDUZCO> Date Tyrone VERDUZCO 07/06/18 1721<Electronically signed by Roz Amador MD> Cosigner Signature (if applicable): Date Roz Amador MD CC: AMPARO Kincaid; LUBA Espitia; Roz Amador MD Signed DISCHARGE INSTRUCTION Observed: 07/06/2018 Status: F Source: NIKKI 1:03 PM [facility] REPOSITORY [facility] Medical Records Department [address] [place] [address] Instructions for Home/Discharge Instructions 07/06/18 1301 MR#: [id number] Acct: [id number] Name: FIOR CHRIS Rep #: [id number] : 1950 68 From: Tyrone VERDUZCO PCP: AMPARO Berumen Status: ADM IN - Discharge Diagnoses Current Active Problems: Current Active and Chronic Problems UTI (urinary tract infection) (Acute) CKD (chronic kidney disease), stage III (Chronic) You will use the following diet at home:: Cardiac - <2 grams sodium daily, Other - 2-3 liters of water daily Your food should be the consistency of: Regular Your liquids should be the consistency of: Regular/Thin Discharge Activity: Return to Normal Activity Allergies/Adverse Reactions: Allergies No Known Allergies Allergy (Verified 06/29/18 15:57) Medications to take at Discharge Lorazepam [Ativan] 1 mg PO TID PRN 11/21/15 Desmopressin Acetate 0.1 mg PO DAILY 06/29/18 Docusate Sodium [Colace] 100 mg PO DAILY 06/29/18 Ergocalciferol [Vitamin D] 50,000 unit PO UD 06/29/18 Ferrous Sulfate 324 mg PO BID 06/29/18 Ibandronate Sodium [Boniva] 150 mg PO Q30D 06/29/18 Lamotrigine 200 mg PO DAILY 06/29/18 Olanzapine [Zyprexa] 20 mg PO QHS 06/29/18 Perphenazine 4 mg PO TID 06/29/18 Polyethylene Glycol 3350 [Powderlax] 17 gm PO DAILY 06/29/18 Acetaminophen [Tylenol Tablet] 650 mg PO Q6H PRN PRN tablet 07/06/18 Cephalexin [Keflex] 500 mg PO BID #16 cap 07/06/18 Olanzapine [Zyprexa] 10 mg PO DAILY tablet 07/06/18 The following prescriptions were given: Cephalexin [Keflex] 500 mg PO BID #16 cap Primary Care Physician: Joan Kincaid NP-C [Primary Care Provider] - Please follow up with your Primary Care Physician in: 2 weeks Test Results: Test results from this visit will be discussed in further detail at your follow-up appointment, if applicable. Please Follow Up With: Ayse Abrams MD When: 1 week Please Follow Up With: Psychiatry When: Keep your appointment Thursday. Proposed Discharge Date: 07/06/18 07/06/18 1303 <Electronically signed by Tyrone VERDUZCO> Date Tyrone VERDUZCO CC: WINDOW TINTER-C Joan Kincaid; Rosanna Palmer MD BASIC METABOLIC Collected: 07/06/2018 Status: F Source: NIKKI PROFILE (BMP) 10:55 AM [facility] REPOSITORY TYPE CODE TESTS RESULT OUT OF RANGE REFERENCE UNITS LAB L501.0100 74-106 mg/dL Normal GLU 100 Result Comment: Fasting Glucose result from 100 to 125 mg/dL suggests IMPAIRED HOMEOSTASIS per A.D.A. criteria. Please note revised GLUCOSE reference range effective 2017. LAB L501.1000 7-18 mg/dL Normal BUN 14 LAB L501.1100 0.55-1.02 mg/dL High CREAT,SERUM 1.39 Result Comment: The validity of the calculated GFR AND GFRAA in patients over 70 years has not been determined. Clinical correlation is essential. LAB L501.1110 >60 mL/min Low EST GFR 40 Result Comment: Non- GFR Calc LAB L501.1115 >60 mL/min Low EST GFR - AA 48 Result Comment: GFR Calc LAB L501.1255 ml/min Normal Estimated CRCL 34.37 LAB L501.1300 10-20 RATIO Normal BUN/CRE 10.1 LAB L501.2200 8.5-10 mg/dL Normal .1 CA 8.8 LAB L501.5300 136-14 mmol/L Normal 5 NA 144 LAB L501.5600 3.5-5. mmol/L Normal 1 K 4.1 LAB L501.5900 98-107 mmol/L High CL 111 LAB L501.6100 21.0-3 mmol/L Normal 2.0 CO2 25.0 LAB L501.6200 5-15 Normal GAP 8 Performed By: #### L500.2500 #### [facility] [address] [place], [address] SODIUM LEVEL Collected: 07/06/2018 Status: F Source: NIKKI 7:36 AM [facility] REPOSITORY TYPE CODE TESTS RESULT OUT OF RANGE REFERENCE UNITS LAB L501.5300 136-145 mmol/L High NA 153 Performed By: #### L501.5300 #### [facility] [address] [place], [address] SODIUM LEVEL Collected: 07/06/2018 Status: F Source: NIKKI 2:10 AM [facility] REPOSITORY TYPE CODE TESTS RESULT OUT OF RANGE REFERENCE UNITS LAB L501.5300 136-145 mmol/L High NA 147 Performed By: #### L501.5300 #### [facility] [address] [place], [address] SODIUM LEVEL Collected: 07/05/2018 Status: F Source: NIKKI 8:03 PM [facility] REPOSITORY TYPE CODE TESTS RESULT OUT OF RANGE REFERENCE UNITS LAB L501.5300 136-145 mmol/L Normal NA 145 Performed By: #### L501.5300 #### [facility] [address] [place], [address] SODIUM LEVEL Collected: 07/05/2018 Status: F Source: NIKKI 2:18 PM [facility] REPOSITORY TYPE CODE TESTS RESULT OUT OF RANGE REFERENCE UNITS LAB L501.5300 136-145 mmol/L Normal NA 145 Performed By: #### L501.5300 #### [facility] [address] [place], [address] SODIUM LEVEL Collected: 07/05/2018 Status: F Source: NIKKI 10:00 AM [facility] REPOSITORY TYPE CODE TESTS RESULT OUT OF RANGE REFERENCE UNITS LAB L501.5300 136-145 mmol/L High NA 146 Performed By: #### L501.5300 #### [facility] [address] [place], [address] BASIC METABOLIC Collected: 07/05/2018 Status: F Source: NIKKI PROFILE (BMP) 5:32 AM [facility] REPOSITORY TYPE CODE TESTS RESULT OUT OF RANGE REFERENCE UNITS LAB L501.0100 74-106 mg/dL Normal GLU 105 Result Comment: Fasting Glucose result from 100 to 125 mg/dL suggests IMPAIRED HOMEOSTASIS per A.D.A. criteria. Please note revised GLUCOSE reference range effective 2017. LAB L501.1000 7-18 mg/dL Normal BUN 16 LAB L501.1100 0.55-1.02 mg/dL High CREAT,SERUM 1.57 Result Comment: The validity of the calculated GFR AND GFRAA in patients over 70 years has not been determined. Clinical correlation is essential. LAB L501.1110 >60 mL/min Low EST GFR 35 Result Comment: Non- GFR Calc LAB L501.1115 >60 mL/min Low EST GFR - AA 42 Result Comment: GFR Calc LAB L501.1255 ml/min Normal Estimated CRCL 30.43 LAB L501.1300 10-20 RATIO Normal BUN/CRE 10.2 LAB L501.2200 8.5-10 mg/dL Normal .1 CA 8.9 LAB L501.5300 136-14 mmol/L High 5 NA 148 LAB L501.5600 3.5-5. mmol/L Normal 1 K 3.7 LAB L501.5900 98-107 mmol/L High CL 112 LAB L501.6100 21.0-3 mmol/L Normal 2.0 CO2 25.0 LAB L501.6200 5-15 Normal GAP 11 Performed By: #### L500.2500 #### [facility] [address] [place], [place], [address] SODIUM LEVEL Collected: 07/05/2018 Status: F Source: NIKKI 1:55 AM [facility] REPOSITORY TYPE CODE TESTS RESULT OUT OF RANGE REFERENCE UNITS LAB L501.5300 136-145 mmol/L Normal NA 143 Performed By: #### L501.5300 #### [facility] [address] [place], [address] CHEST PA AND LATERAL Observed: 07/05/2018 Status: F Source: NIKKI 12:00 AM [facility] REPOSITORY [facility] Imaging Services [address] [place] [address] Chest PA and Lateral MR#: [id number] Acct: [id number] Name: FIOR CHRIS Rep #: [id number] : 1950 F 68 From: Cheng Schmitt MD PCP: AMPARO Berumen Status: ADM IN Study: Chest PA and Lateral Date of Exam: 07/05/18 Exam# [id number] Ordering Dr: Tyrone Espitia STUDY: X-RAY CHEST REASON FOR EXAM: Female, 68 years old. Fever. TECHNIQUE: AP and lateral views of the chest. COMPARISON: Comparison is made with prior study dated June 29, 2018. FINDINGS: The lungs are clear and expanded. There is no demonstrated pleural abnormality. Normal size heart. Normal mediastinum and tarik. Normal visualized pulmonary arteries. There is atherosclerotic tortuosity of the aortic arch and descending thoracic aorta. There are diffuse degenerative changes of the visualized thoracic spine. Normal visualized ribs, clavicles, and shoulders. There is no demonstrated abnormality of the visualized soft tissue structures of the upper abdomen. RAD/Chest PA and Lateral IMPRESSION: No acute abnormality is seen. Electronically Signed: Cheng Schmitt MD at 11:04 EDT Tel [phone], Service support , CC: AMPARO Kincaid; LUBA Espitia White Lead Grinder: Signed SODIUM LEVEL Collected: 07/04/2018 Status: F Source: SHENANDOAH 10:10 PM [facility] REPOSITORY TYPE CODE TESTS RESULT OUT OF RANGE REFERENCE UNITS LAB L501.5300 136-145 mmol/L High NA 149 Performed By: #### L501.5300 #### [facility] [address] [place], [place], [address] SODIUM LEVEL Collected: 07/04/2018 Status: F Source: NIKKI 5:35 PM [facility] REPOSITORY TYPE CODE TESTS RESULT OUT OF RANGE REFERENCE UNITS LAB L501.5300 136-145 mmol/L High NA 152 Performed By: #### L501.5300 #### [facility] [address] [place], [address] SODIUM LEVEL Collected: 07/04/2018 Status: F Source: NIKKI 2:00 PM [facility] REPOSITORY TYPE CODE TESTS RESULT OUT OF RANGE REFERENCE UNITS LAB L501.5300 136-145 mmol/L High NA 151 Performed By: #### L501.5300 #### [facility] [address] [place], [address] SODIUM LEVEL Collected: 07/04/2018 Status: F Source: NIKKI 10:35 AM [facility] REPOSITORY TYPE CODE TESTS RESULT OUT OF RANGE REFERENCE UNITS LAB L501.5300 136-145 mmol/L High NA 155 Performed By: #### L501.5300 #### [facility] [address] [place], [address] BASIC METABOLIC Collected: 07/04/2018 Status: F Source: NIKKI PROFILE (BMP) 5:55 AM [facility] REPOSITORY TYPE CODE TESTS RESULT OUT OF RANGE REFERENCE UNITS LAB L501.0100 74-106 mg/dL High GLU 108 Result Comment: Fasting Glucose result from 100 to 125 mg/dL suggests IMPAIRED HOMEOSTASIS per A.D.A. criteria. Please note revised GLUCOSE reference range effective 2017. LAB L501.1000 7-18 mg/dL High BUN 21 LAB L501.1100 0.55-1.02 mg/dL High CREAT,SERUM 1.76 Result Comment: The validity of the calculated GFR AND GFRAA in patients over 70 years has not been determined. Clinical correlation is essential. LAB L501.1110 >60 mL/min Low EST GFR 30 Result Comment: Non- GFR Calc LAB L501.1115 >60 mL/min Low EST GFR - AA 37 Result Comment: GFR Calc LAB L501.1255 ml/min Normal Estimated CRCL 27.15 LAB L501.1300 10-20 RATIO Normal BUN/CRE 11.9 LAB L501.2200 8.5-10 mg/dL Normal .1 CA 9.7 LAB L501.5300 136-14 mmol/L High 5 NA 158 LAB L501.5600 3.5-5. mmol/L Normal 1 K 4.1 LAB L501.5900 98-107 mmol/L High CL 123 LAB L501.6100 21.0-3 mmol/L Normal 2.0 CO2 26.0 LAB L501.6200 5-15 Normal GAP 9 Performed By: #### L500.2500 #### [facility] [place], [address] BASIC METABOLIC Collected: 07/03/2018 Status: F Source: SHENANDOAH PROFILE (BMP) 10:15 PM [facility] REPOSITORY TYPE CODE TESTS RESULT OUT OF RANGE REFERENCE UNITS LAB L501.0100 74-106 mg/dL High GLU 117 Result Comment: Fasting Glucose result from 100 to 125 mg/dL suggests IMPAIRED HOMEOSTASIS per A.D.A. criteria. Please note revised GLUCOSE reference range effective 2017. LAB L501.1000 7-18 mg/dL High BUN 22 LAB L501.1100 0.55-1.02 mg/dL High CREAT,SERUM 1.79 Result Comment: The validity of the calculated GFR AND GFRAA in patients over 70 years has not been determined. Clinical correlation is essential. LAB L501.1110 >60 mL/min Low EST GFR 30 Result Comment: Non- GFR Calc LAB L501.1115 >60 mL/min Low EST GFR - AA 36 Result Comment: GFR Calc LAB L501.1255 ml/min Normal Estimated CRCL 26.69 LAB L501.1300 10-20 RATIO Normal BUN/CRE 12.3 LAB L501.2200 8.5-10 mg/dL Normal .1 CA 9.1 LAB L501.5300 136-14 mmol/L High 5 NA 156 LAB L501.5600 3.5-5. mmol/L Normal 1 K 3.7 LAB L501.5900 98-107 mmol/L High CL 123 LAB L501.6100 21.0-3 mmol/L Normal 2.0 CO2 25.0 LAB L501.6200 5-15 Normal GAP 8 Performed By: #### L500.2500 #### [facility] [address] [place], [address] OSMOLALITY, URINE Collected: 07/03/2018 Status: F Source: NIKKI 8:33 PM [facility] REPOSITORY TYPE CODE TESTS RESULT OUT OF RANGE REFERENCE UNITS LAB L501.7400 mOsm/KG Normal 172 OSMOLALITY,U R Result Comment: OSMOLALITY URINE REFERENCE INTERVALS 24-hour Urine 300 - 900 mOsm/kg Random Urine 50 - 1400 mOsm/kg After 12 Hr fluid restriction >850 mOsm/kg Performed By: #### L501.7400, L501.5500, L501.5800 #### [facility] [address] [place], [address] URINE SODIUM Collected: 07/03/2018 Status: F Source: NIKKI 8:33 PM [facility] REPOSITORY TYPE CODE TESTS RESULT OUT OF RANGE REFERENCE UNITS LAB L501.5500 Not Establ. mmol/L Normal UR NA 39 Performed By: #### L501.7400, L501.5500, L501.5800 #### [facility] [address] [place], [address] URINE POTASSIUM Collected: 07/03/2018 Status: F Source: NIKKI 8:33 PM [facility] REPOSITORY TYPE CODE TESTS RESULT OUT OF RANGE REFERENCE UNITS LAB L501.5800 Not Establ. mmol/L Normal UR K 13.0 Performed By: #### L501.7400, L501.5500, L501.5800 #### [facility] [address] [place], [address] CREATININE, URINE Collected: 07/03/2018 Status: F Source: NIKKI 8:33 PM [facility] REPOSITORY TYPE CODE TESTS RESULT OUT OF RANGE REFERENCE UNITS LAB L502.0300 NO RANGE EST. mg/dL Normal URINE 25.90 CREAT Performed By: #### L502.0300 #### [facility] [address] [place], [address] BASIC METABOLIC Collected: 07/03/2018 Status: F Source: NIKKI PROFILE (BMP) 5:32 PM [facility] REPOSITORY TYPE CODE TESTS RESULT OUT OF RANGE REFERENCE UNITS LAB L501.0100 74-106 mg/dL High GLU 133 Result Comment: Fasting Glucose result greater than or equal to 126 mg/dL suggests DIABETES MELLITUS per A.D.A. criteria. Please note revised GLUCOSE reference range effective 2017. LAB L501.1000 7-18 mg/dL High BUN 24 LAB L501.1100 0.55-1.02 mg/dL High CREAT,SERUM 1.82 Result Comment: The validity of the calculated GFR AND GFRAA in patients over 70 years has not been determined. Clinical correlation is essential. LAB L501.1110 >60 mL/min Low EST GFR 29 Result Comment: Non- GFR Calc LAB L501.1115 >60 mL/min Low EST GFR - AA 35 Result Comment: GFR Calc LAB L501.1255 ml/min Normal Estimated CRCL 26.25 LAB L501.1300 10-20 RATIO Normal BUN/CRE 13.2 LAB L501.2200 8.5-10 mg/dL Normal .1 CA 9.6 LAB L501.5300 136-14 mmol/L High 5 NA 155 LAB L501.5600 3.5-5. mmol/L Normal 1 K 4.3 Result Comment: Moderate Hemolysis, Result may be falsely increased. LAB L501.5900 98-107 mmol/L High CL 120 LAB L501.6100 21.0-32.0 mmol/L Normal CO2 24.0 LAB L501.6200 5-15 Normal GAP 11 Performed By: #### L500.2500 #### [facility] [address] [place], [address] BASIC METABOLIC Collected: 07/03/2018 Status: F Source: NIKKI PROFILE (BMP) 2:03 PM [facility] REPOSITORY TYPE CODE TESTS RESULT OUT OF RANGE REFERENCE UNITS LAB L501.0100 74-106 mg/dL High GLU 188 Result Comment: Fasting Glucose result greater than or equal to 126 mg/dL suggests DIABETES MELLITUS per A.D.A. criteria. Please note revised GLUCOSE reference range effective 2017. LAB L501.1000 7-18 mg/dL High BUN 24 LAB L501.1100 0.55-1.02 mg/dL High CREAT,SERUM 1.99 Result Comment: The validity of the calculated GFR AND GFRAA in patients over 70 years has not been determined. Clinical correlation is essential. LAB L501.1110 >60 mL/min Low EST GFR 26 Result Comment: Non- GFR Calc LAB L501.1115 >60 mL/min Low EST GFR - AA 32 Result Comment: GFR Calc LAB L501.1255 ml/min Normal Estimated CRCL 24.01 LAB L501.1300 10-20 RATIO Normal BUN/CRE 12.1 LAB L501.2200 8.5-10 mg/dL Normal .1 CA 9.3 LAB L501.5300 136-14 mmol/L High 5 NA 154 LAB L501.5600 3.5-5. mmol/L Normal 1 K 3.9 LAB L501.5900 98-107 mmol/L High CL 120 LAB L501.6100 21.0-3 mmol/L Normal 2.0 CO2 23.0 LAB L501.6200 5-15 Normal GAP 11 Performed By: #### L500.2500 #### [facility] [address] [place], [address] BASIC METABOLIC Collected: 07/03/2018 Status: F Source: SHENANDOAH PROFILE ([facility]) 10:30 AM [facility] REPOSITORY TYPE CODE TESTS RESULT OUT OF RANGE REFERENCE UNITS LAB L501.0100 74-106 mg/dL High GLU 121 Result Comment: Fasting Glucose result from 100 to 125 mg/dL suggests IMPAIRED HOMEOSTASIS per A.D.A. criteria. Please note revised GLUCOSE reference range effective 2017. LAB L501.1000 7-18 mg/dL High BUN 27 LAB L501.1100 0.55-1.02 mg/dL High CREAT,SERUM 1.82 Result Comment: The validity of the calculated GFR AND GFRAA in patients over 70 years has not been determined. Clinical correlation is essential. LAB L501.1110 >60 mL/min Low EST GFR 29 Result Comment: Non- GFR Calc LAB L501.1115 >60 mL/min Low EST GFR - AA 35 Result Comment: GFR Calc LAB L501.1255 ml/min Normal Estimated CRCL 26.25 LAB L501.1300 10-20 RATIO Normal BUN/CRE 14.8 LAB L501.2200 8.5-10 mg/dL Normal .1 CA 9.5 LAB L501.5300 136-14 mmol/L High 5 NA 158 LAB L501.5600 3.5-5. mmol/L Normal 1 K 4.0 LAB L501.5900 98-107 mmol/L High CL 123 LAB L501.6100 21.0-3 mmol/L Normal 2.0 CO2 25.0 LAB L501.6200 5-15 Normal GAP 10 Performed By: #### L500.2500 #### [facility] [address] [place], [address] MAGNESIUM Collected: 07/03/2018 Status: F Source: SHENANDOAH 10:30 AM [facility] REPOSITORY Order Comment: Comments: ok to add on TYPE CODE TESTS RESULT OUT OF RANGE REFERENCE UNITS LAB L501.5200 1.6-2.6 mg/dL High MG 2.8 Performed By: #### L501.5200 #### [facility] [address] [facility] [place], [address] BASIC METABOLIC Collected: 07/03/2018 Status: F Source: SHENANDOAH PROFILE (BMP) 5:55 AM [facility] REPOSITORY TYPE CODE TESTS RESULT OUT OF RANGE REFERENCE UNITS LAB L501.0100 74-106 mg/dL Normal GLU 98 Result Comment: Please note revised GLUCOSE reference range effective 2017. LAB L501.1000 7-18 mg/dL High BUN 28 LAB L501.1100 0.55-1.02 mg/dL High CREAT,SERUM 1.78 Result Comment: The validity of the calculated GFR AND GFRAA in patients over 70 years has not been determined. Clinical correlation is essential. LAB L501.1110 >60 mL/min Low EST GFR 30 Result Comment: Non- GFR Calc LAB L501.1115 >60 mL/min Low EST GFR - AA 36 Result Comment: GFR Calc LAB L501.1255 ml/min Normal Estimated CRCL 26.84 LAB L501.1300 10-20 RATIO Normal BUN/CRE 15.7 LAB L501.2200 8.5-10 mg/dL Normal .1 CA 9.6 LAB L501.5300 136-14 mmol/L High 5 NA 160 LAB L501.5600 3.5-5. mmol/L Normal 1 K 3.9 LAB L501.5900 98-107 mmol/L High CL 125 LAB L501.6100 21.0-3 mmol/L Normal 2.0 CO2 25.0 LAB L501.6200 5-15 Normal GAP 10 Performed By: #### L500.2500 #### [facility] [address] [facility] [place], [address] RENAL PROFILE Collected: 07/02/2018 Status: F Source: SHENANDOAH 5:35 PM [facility] REPOSITORY TYPE CODE TESTS RESULT OUT OF RANGE REFERENCE UNITS LAB L501.0100 74-106 mg/dL High GLU 125 Result Comment: Fasting Glucose result from 100 to 125 mg/dL suggests IMPAIRED HOMEOSTASIS per A.D.A. criteria. Please note revised GLUCOSE reference range effective 2017. LAB L501.1000 7-18 mg/dL High BUN 29 LAB L501.1100 0.55-1.02 mg/dL High CREAT,SERUM 2.05 Result Comment: The validity of the calculated GFR AND GFRAA in patients over 70 years has not been determined. Clinical correlation is essential. LAB L501.1110 >60 mL/min Low EST GFR 26 Result Comment: Non- GFR Calc LAB L501.1115 >60 mL/min Low EST GFR - AA 31 Result Comment: GFR Calc LAB L501.1255 ml/min Normal Estimated CRCL 23.31 LAB L501.1300 10-20 RATIO Normal BUN/CRE 14.1 LAB L501.1800 3.2-5. g/dL Normal 0 ALB 3.3 LAB L501.2200 8.5-10 mg/dL High .1 CA 10.5 LAB L501.2300 2.5-4. mg/dL Normal 9 PHOS 3.0 LAB L501.5300 136-14 mmol/L High 5 NA 158 LAB L501.5600 3.5-5. mmol/L Normal 1 K 4.3 LAB L501.5900 98-107 mmol/L High CL 123 LAB L501.6100 21.0-3 mmol/L Normal 2.0 CO2 25.0 Performed By: #### L500.3600 #### [facility] [address] [place], [address] CONSULTATION Observed: 07/02/2018 Status: F Source: NIKKI 4:50 PM [facility] REPOSITORY [facility] Medical Records Department [address] [place] [address] Consultation 07/02/18 1628 MR#: [id number] Acct: [id number] Name: FIOR CHRIS Rep #: [id number] : 1950 68 From: Rosanna Palmer MD PCP: AMPARO Berumen Status: ADM IN Y Location: DC3 [id number] Consultation - Renal 07/02/18 PCP/ Referring MD: Requesting physician: Dr. Moran Primary care physician: AMPARO Berumen Reason for Consultation:: Hypernatremia and CITLALY/CKD - History of Present Illness History of Present Illness: The patient is a 68 year old F with past history of bipolar disorder, CKD stage 4, complicated metabolic history. The pt has been diagnosed recently at [facility] ([facility]) with hyperparathyroidism (unclear if primary or not) while she was admitted there between 06/15/18 to 06/25/18. She presented there because of confusion per (Eugene). Pt was also diagnosed at [facility] with diabetes insipidus in the past, requiring desmopressin. However, she was diagnosed with hyponatremia during the most recent admission at [facility], and she was taken off of desmopressin. The pt was admitted to this hospital on 06/29/18 for UTI. We are asked to see the pt because of persistent hypernatremia despite hypotonic IVF. She is also followed at our office by my partner, Dr. Abrams, for CKD. Her baseline SCr appears to be around 1.5-1.8 mg/dL. History and ROS is unable to be obtained accurately due to confusion. The pt denies CP. There has been no diarrhea or edema. - Allergies Allergies: Allergies No Known Allergies Allergy (Verified 06/29/18 15:57) - Current Medications Current Medications: Current Medications Acetaminophen (Tylenol) 650 mg PO Q6H PRN PRN PRN Reason: Mild Pain (scale 0-3)/T>100.7 Last Admin: 07/01/18 21:55 Dose: 650 mg Al Hydroxide/Mg Hydroxide (Mylanta Ii) 30 ml PO Q6H PRN PRN PRN Reason: Gastric Burning Bisacodyl (Dulcolax) 10 mg RECTAL DAILY PRN PRN PRN Reason: Constipation Desmopressin Acetate (Desmopressin Acetate) 0.1 mg PO DAILY [facility] Last Admin: 07/02/18 08:05 Dose: 0.1 mg Docusate Sodium (Colace) 100 mg PO DAILY [facility] Last Admin: 07/02/18 08:04 Dose: 100 mg Enoxaparin Sodium (Lovenox) 30 mg SC DAILY@0600 [facility] Last Admin: 07/02/18 05:59 Dose: 30 mg Ergocalciferol (Vitamin D) 50,000 unit PO Q14D@1000 [facility] Last Admin: 06/30/18 18:11 Dose: 50,000 unit Ferrous Sulfate (Ferrous Sulfate) 325 mg PO BIDCM [facility] Last Admin: 07/02/18 08:04 Dose: 325 mg Haloperidol Lactate (Haldol) 2 mg IM Q4H PRN PRN PRN Reason: AGITATION Ceftriaxone Sodium 2 gm/ (Dextrose) 50 mls @ 100 mls/hr IV Q24 [facility] Last Admin: 07/02/18 09:39 Dose: 100 mls/hr Sodium Chloride () 1,000 mls @ 100 mls/hr IV .Q10H [facility] Last Admin: 07/02/18 11:14 Dose: 100 mls/hr Lamotrigine (Lamictal) 200 mg PO DAILY [facility] Last Admin: 07/02/18 08:05 Dose: 200 mg Lorazepam (Ativan) 2 mg PO TID PRN PRN Reason: ANXIETY Melatonin (Melatonin) 10 mg PO QHS [facility] Last Admin: 07/01/18 21:54 Dose: 10 mg Olanzapine (Zyprexa) 5 mg PO DAILY [facility] Last Admin: 07/02/18 08:06 Dose: 5 mg Olanzapine (Zyprexa) 20 mg PO QHS [facility] Last Admin: 07/01/18 21:54 Dose: 20 mg Ondansetron HCl (Zofran) 4 mg IV Q6H PRN PRN PRN Reason: Nausea Oxycodone HCl (Oxyir) 5 mg PO Q4H PRN PRN PRN Reason: Moderate Pain (pain scale 4-5) Last Admin: 07/01/18 00:34 Dose: 5 mg Perphenazine (Perphenazine) 4 mg PO TID [facility] Last Admin: 07/02/18 13:18 Dose: 4 mg Polyethylene Glycol (Miralax) 17 gm PO DAILY [facility] Last Admin: 07/02/18 08:06 Dose: 17 gm Promethazine HCl (Phenergan) 12.5 mg IV Q4H PRN PRN PRN Reason: NAUSEA/VOMITING Last Admin: 07/02/18 02:51 Dose: 12.5 mg Sodium Chloride () 5 - 30 ml IV UD PRN PRN Reason: SALINE FLUSH Last Admin: 07/01/18 11:42 Dose: 20 ml - 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 Patient Problems: Active and Suspected Problems UTI (urinary tract infection) (Acute) - Physical Exam General: Alert, Confused HEENT: Atraumatic, Normocephalic, TM's Clear Oral: Dry Mucosa Neck: Supple Lungs: Clear to auscultation Cardiovascular: Normal S1, Normal S2, No murmurs Abdomen: Bowel Sounds Present, Soft, Non Tender Extremities: No clubbing, No cyanosis, No edema Skin: No rashes Musculoskeletal: No Tenderness to Palpation of Joints or Extremities Vital Signs Temp Pulse Resp BP Pulse Ox 97.8 F 105 H 18 122/82 H 94 07/02/18 13:41 07/02/18 13:41 07/02/18 13:41 07/02/18 13:41 07/02/18 13:41 Oxygen Delivery Method Room Air Weight: 60.555 kg Body Mass Index (BMI) 22.1 Intake and Output for Last 24 Hours Intake Total 2418 / 2418 3718 / 3718 405 / 405 Output Total 2150 / 2150 400 / 400 700 / 700 Balance 268 / 268 3318 / 3318 -295 / -295 Laboratory Tests Past 24 Hrs WBC 5.3 RBC 3.31 L Hgb 10.1 L Hct 33.4 L MCV 100.9 H MCH 30.5 MCHC 30.2 L RDW 13.6 Assessment/Plan All Active Problems UTI (urinary tract infection) (Acute) 1. Hypernatremia. Pt has a history of nephrogenic DI. If so, desmopressin may not help much. Monitor UOP, dialy weight and Na level. Let pt drink to quench thirst with careful monitoring of Na. Would continue hypotonic IVF. If pt is hemodynamically stable, we can change to D5W in the next 24 hrs if hypernatremia persists. Check Usom, Jaye and [facility] to see if urine can at keast be partially concentrated with desmopressin. 2. Chronic kidney disease stage 4. Followed by Dr. Abrams as outpt. She appears to be close to baseline renal function. SCr has been around 1.5-1.8 in the past. I will review Dr. Abrams's note. Continue I>O. Will check urine indices. 3. Hypercalcemia. Calcium is mildly elevated at 10.6. Check serum albumin. If serum albumin<3.5, I will check ionized calcium since hypercalcemia may be worse than we think with low albumin. Get details of work up from [facility] of what type hyperparathyroidism we are dealing with (primary vs tertiary). Continue to keep hydrated which will help keep calcium level down. 4. UTI. On ceftriaxone. 5. bipolar disorder. 07/02/18 1650 <Electronically signed by Rosanna Palmer MD> Date Rosanna Palmer MD Cosigner Signature (if applicable): Date CC: AMPARO Kincaid; Rosanna Palmer MD Signed 12 LEAD ELECTROCARDIOGRAM Observed: 07/02/2018 Status: F Source: SHENANDOAH 1:28 PM [facility] REPOSITORY [facility] Cardiovascular Services [address] [place] [address] 12 Lead EKG 06/29/18 1744 MR#: [id number] Acct: [id number] Name: FIOR CHRIS Rep #: [id number] : 1950 68 From: Noam Reyez MD Attending Dr: Ravindra Moran Status: ADM IN Ordering Dr: Akila Zepeda MD Date: 06/29/18 Location: MS3 Sex: F C Admitted: 06/29/18 Test Reason : GEN ILLNESS Blood Pressure : / mmHG Vent. Rate : 096 BPM Atrial Rate : 096 BPM P-R Int : 160 ms QRS Dur : 094 ms QT Int : 324 ms P-R-T Axes : 057 030 056 degrees QTc Int : 409 ms Normal sinus rhythm Normal ECG Confirmed by MODE ORELLANA, NOAM ([id number]), magazine editor ERIN SEYMOUR ([id number]) on 07/02/2018 1:27:58 PM Referred By: DALILA LOWE Confirmed By:NOAM REYEZ MD 07/02/18 1328 Date Noam Reyez MD CC: WINDOW TINTER-C Joan Kincaid; Ravindra Moran; Akila Zepeda MD Signed BASIC METABOLIC Collected: 07/02/2018 Status: F Source: NIKKI PROFILE (BMP) 5:50 AM [facility] REPOSITORY TYPE CODE TESTS RESULT OUT OF RANGE REFERENCE UNITS LAB L501.0100 74-106 mg/dL High GLU 117 Result Comment: Fasting Glucose result from 100 to 125 mg/dL suggests IMPAIRED HOMEOSTASIS per A.D.A. criteria. Please note revised GLUCOSE reference range effective 2017. LAB L501.1000 7-18 mg/dL High BUN 28 LAB L501.1100 0.55-1.02 mg/dL High CREAT,SERUM 1.83 Result Comment: The validity of the calculated GFR AND GFRAA in patients over 70 years has not been determined. Clinical correlation is essential. LAB L501.1110 >60 mL/min Low EST GFR 29 Result Comment: Non- GFR Calc LAB L501.1115 >60 mL/min Low EST GFR - AA 35 Result Comment: GFR Calc LAB L501.1255 ml/min Normal Estimated CRCL 26.11 LAB L501.1300 10-20 RATIO Normal BUN/CRE 15.3 LAB L501.2200 8.5-10 mg/dL High .1 CA 10.6 LAB L501.5300 136-14 mmol/L High 5 NA 159 LAB L501.5600 3.5-5. mmol/L Normal 1 K 4.4 LAB L501.5900 98-107 mmol/L High CL 125 LAB L501.6100 21.0-3 mmol/L Normal 2.0 CO2 25.0 LAB L501.6200 5-15 Normal GAP 9 Performed By: #### L500.2500 #### [facility] [address] [place], [address] CBC W/DIFF, AUTOMATED Collected: 07/02/2018 Status: F Source: SHENANDOAH 5:50 AM [facility] REPOSITORY TYPE CODE TESTS RESULT OUT OF RANGE REFERENCE UNITS LAB L100.1000 4.4-11.0 K/mm3 Normal WBC 5.3 LAB L100.1200 4.2-5.4 M/mm3 Low RBC 3.31 LAB L100.1300 12.0-15.0 g/dl Low HGB 10.1 LAB L100.1400 37-47 % Low HCT 33.4 LAB L100.1500 81-99 fL High MCV 100.9 LAB L100.1600 27.0-32.0 pg Normal MCH 30.5 LAB L100.1700 32-36 g/gl Low MCHC 30.2 LAB L100.1810 11.6-14.6 % Normal RDW CV 13.6 LAB L100.1820 35.1-43.9 fl High RDW SD 48.9 LAB L100.1900 150-450 K/mm3 Normal PLT 224 LAB L100.2000 6.2-12.0 fl Normal MPV 9.2 LAB L100.2100 47-70 % High NEUT% 71.8 LAB L100.2200 19-41 % Low LY% 15.4 LAB L100.2300 0-10 % High MONO% 12.0 LAB L100.2400 0-5 % Normal EO% 0.4 LAB L100.2500 0-1 % Normal BASO% 0.2 LAB L100.2550 0.0-0.9 % Normal IM GRAN % 0.200 Result Comment: IG% - Immature Granulocytes (promyelocytes, myelocytes and metamyelocytes) > 1% indicates that a LEFT SHIFT is Present. LAB L100.2620 2.0-7.7 X10 3/uL Normal Absolute Neut 3.8 LAB L100.2720 0.83-4.51 X10 3/ul Low Absolute Lymph 0.82 Performed By: #### L100.0100 #### [facility] [address] [facility] [place], [address] CHEST WITHOUT Observed: 07/01/2018 Status: F Source: SHENANDOAH CONTRAST 10:03 AM [facility] REPOSITORY [facility] Imaging Services [address] [place] [address] Chest without Contrast MR#: [id number] Acct: [id number] Name: SAWYERDIAZ DAVIDFIOR A Rep #: [id number] : 1950 F 68 From: Cheng Schmitt MD PCP: Joan Kincaid, WINDOW TINTER-C Status: ADM IN Study: Chest without Contrast Date of Exam: 07/01/18 Exam# [id number] Ordering Dr: Ravindra Moran MD STUDY: CT CHEST WITHOUT CONTRAST REASON FOR EXAM: Female, 68 years old. Cough. Right basilar changes. RADIATION DOSAGE (If Supplied By Facility): CTDIvol = ( 8.73 ) mGy, DLP = ( 305.35 ) mGycm TECHNIQUE: Transaxial imaging was performed without the administration of intravenous contrast material. Multiplanar coronal and sagittal images were reformatted. Individualized dose optimization techniques were used for this CT. COMPARISON: Comparison is made with prior chest radiograph dated June 29, 2018. FINDINGS: Small bilateral benign-appearing axillary lymph nodes. Mild degree of increased markings at both lung bases slightly worse on the right side. This is suggestive of mild scarring and/or mild degree of basilar atelectasis. There is no demonstrated pleural abnormality. Normal heart and pericardium. Normal mediastinum. Normal hilar regions. Normal unenhanced pulmonary arteries. Normal aorta arch and descending thoracic aorta. There are degenerative changes of the thoracic spine. There are multiple nonobstructive bilateral intrarenal calculi. CT/Chest without Contrast IMPRESSION: Mild degree of increased markings at the lung bases slightly worse on the right side suggestive of atelectasis and/or scarring. Electronically Signed: Cheng Schmitt MD at 11:17 EDT Tel [phone], Service support , CC: AMPARO Kincaid; Ravindra Moran White Lead Grinder: Signed Observed: 07/01/2018 Status: F Source: NIKKI CULTURE, BLOOD (WB) 9:35 AM [facility] REPOSITORY Has pt arrived? Y BC No growth in 5 days. Performed By: #### M200.1000 #### [facility] [address] [facility] [facility] [place], [place], [address] Observed: 07/01/2018 Status: F Source: NIKKI CULTURE, BLOOD (WB) 9:30 AM [facility] REPOSITORY Has pt arrived? Y BC No growth in 5 days. Performed By: #### M200.1000 #### [facility] [address] [facility] [place], [address] CBC W/DIFF, AUTOMATED Collected: 07/01/2018 Status: F Source: NIKKI 5:45 AM [facility] REPOSITORY TYPE CODE TESTS RESULT OUT OF RANGE REFERENCE UNITS LAB L100.1000 4.4-11.0 K/mm3 Normal WBC 5.4 LAB L100.1200 4.2-5.4 M/mm3 Low RBC 3.25 LAB L100.1300 12.0-15.0 g/dl Low HGB 9.8 LAB L100.1400 37-47 % Low HCT 32.2 LAB L100.1500 81-99 fL High MCV 99.1 LAB L100.1600 27.0-32.0 pg Normal MCH 30.2 LAB L100.1700 32-36 g/gl Low MCHC 30.4 LAB L100.1810 11.6-14.6 % Normal RDW CV 13.5 LAB L100.1820 35.1-43.9 fl High RDW SD 47.2 LAB L100.1900 150-450 K/mm3 Normal PLT 206 LAB L100.2000 6.2-12.0 fl Normal MPV 9.3 LAB L100.2100 47-70 % Normal NEUT% 64.0 LAB L100.2200 19-41 % Normal LY% 19.4 LAB L100.2300 0-10 % High MONO% 15.1 LAB L100.2400 0-5 % Normal EO% 1.1 LAB L100.2500 0-1 % Normal BASO% 0.2 LAB L100.2550 0.0-0.9 % Normal IM GRAN % 0.200 Result Comment: IG% - Immature Granulocytes (promyelocytes, myelocytes and metamyelocytes) > 1% indicates that a LEFT SHIFT is Present. LAB L100.2620 2.0-7.7 X10 3/uL Normal Absolute Neut 3.4 LAB L100.2720 0.83-4.51 X10 3/ul Normal Absolute Lymph 1.04 Performed By: #### L100.0100 #### [facility] [address] [place], [address] BASIC METABOLIC Collected: 07/01/2018 Status: F Source: SHENANDOAH PROFILE ([facility]) 5:45 AM [facility] REPOSIT[facility] TYPE CODE TESTS RESULT OUT OF RANGE REFERENCE UNITS LAB L501.0100 74-106 mg/dL Normal GLU 104 Result Comment: Fasting Glucose result from 100 to 125 mg/dL suggests IMPAIRED HOMEOSTASIS per A.D.A. criteria. Please note revised GLUCOSE reference range effective 2017. LAB L501.1000 7-18 mg/dL High BUN 27 LAB L501.1100 0.55-1.02 mg/dL High CREAT,SERUM 1.76 Result Comment: The validity of the calculated GFR AND GFRAA in patients over 70 years has not been determined. Clinical correlation is essential. LAB L501.1110 >60 mL/min Low EST GFR 30 Result Comment: Non- GFR Calc LAB L501.1115 >60 mL/min Low EST GFR - AA 37 Result Comment: GFR Calc LAB L501.1255 ml/min Normal Estimated CRCL 27.15 LAB L501.1300 10-20 RATIO Normal BUN/CRE 15.3 LAB L501.2200 8.5-10 mg/dL High .1 CA 10.3 LAB L501.5300 136-14 mmol/L High 5 NA 154 LAB L501.5600 3.5-5. mmol/L Normal 1 K 4.1 LAB L501.5900 98-107 mmol/L High CL 120 LAB L501.6100 21.0-3 mmol/L Normal 2.0 CO2 22.0 LAB L501.6200 5-15 Normal GAP 12 Performed By: #### L500.2500 #### [facility] [address] [place], [address] FREE T3 Collected: 07/01/2018 Status: F Source: SHENANDOAH 5:45 AM [facility] REPOSITORY Order Comment: PLEASE ADD TO AM LABS THIS MORNING TYPE CODE TESTS RESULT OUT OF RANGE REFERENCE UNITS LAB L501.96137 2.18-3.98 pg/mL Normal FREE T3 2.3 Performed By: #### L501.88775, L501.9310 #### [facility] [address] [facility] [place], [address] T4 TOTAL, THYROXIN Collected: 07/01/2018 Status: F Source: SHENANDOAH 5:45 AM [facility] REPOSITORY Order Comment: PLEASE ADD TO AM LABS THIS MORNING TYPE CODE TESTS RESULT OUT OF RANGE REFERENCE UNITS LAB L501.9310 4.8-13.9 ug/dL T4 Normal THYROXIN 12.0 Performed By: #### L501.68490, L501.9310 #### [facility] [address] [place], [address] CBC W/DIFF, AUTOMATED Collected: 06/30/2018 Status: F Source: SHENANDOAH 5:05 AM [facility] REPOSITORY Order Comment: SPECIMEN OBTAINED FROM LINE DRAW TYPE CODE TESTS RESULT OUT OF RANGE REFERENCE UNITS LAB L100.1000 4.4-11.0 K/mm3 Normal WBC 10.0 LAB L100.1200 4.2-5.4 M/mm3 Low RBC 3.15 LAB L100.1300 12.0-15.0 g/dl Low HGB 9.8 LAB L100.1400 37-47 % Low HCT 30.9 LAB L100.1500 81-99 fL Normal MCV 98.1 LAB L100.1600 27.0-32.0 pg Normal MCH 31.1 LAB L100.1700 32-36 g/gl Low MCHC 31.7 LAB L100.1810 11.6-14.6 % Normal RDW CV 13.4 LAB L100.1820 35.1-43.9 fl High RDW SD 46.1 LAB L100.1900 150-450 K/mm3 Normal PLT 201 LAB L100.2000 6.2-12.0 fl Normal MPV 8.8 LAB L100.2100 47-70 % High NEUT% 81.6 LAB L100.2200 19-41 % Low LY% 7.0 LAB L100.2300 0-10 % High MONO% 11.1 LAB L100.2400 0-5 % Normal EO% 0.0 LAB L100.2500 0-1 % Normal BASO% 0.1 LAB L100.2550 0.0-0.9 % Normal IM GRAN % 0.200 Result Comment: IG% - Immature Granulocytes (promyelocytes, myelocytes and metamyelocytes) > 1% indicates that a LEFT SHIFT is Present. LAB L100.2620 2.0-7.7 X10 3/uL High Absolute Neut 8.2 LAB L100.2720 0.83-4.51 X10 3/ul Low Absolute Lymph 0.70 Performed By: #### L100.0100 #### [facility] [address] [place], [place], [address] BASIC METABOLIC Collected: 06/30/2018 Status: F Source: SHENANDOAH PROFILE ([facility]) 5:05 AM [facility] REPOSIT[facility] Order Comment: SPECIMEN OBTAINED FROM LINE DRAW TYPE CODE TESTS RESULT OUT OF RANGE REFERENCE UNITS LAB L501.0100 74-106 mg/dL High GLU 116 Result Comment: Fasting Glucose result from 100 to 125 mg/dL suggests IMPAIRED HOMEOSTASIS per A.D.A. criteria. Please note revised GLUCOSE reference range effective 2017. LAB L501.1000 7-18 mg/dL High BUN 25 LAB L501.1100 0.55-1.02 mg/dL High CREAT,SERUM 1.73 Result Comment: The validity of the calculated GFR AND GFRAA in patients over 70 years has not been determined. Clinical correlation is essential. LAB L501.1110 >60 mL/min Low EST GFR 31 Result Comment: Non- GFR Calc LAB L501.1115 >60 mL/min Low EST GFR - AA 38 Result Comment: GFR Calc LAB L501.1255 ml/min Normal Estimated CRCL 27.62 LAB L501.1300 10-20 RATIO Normal BUN/CRE 14.5 LAB L501.2200 8.5-10 mg/dL Normal .1 CA 9.9 LAB L501.5300 136-14 mmol/L High 5 NA 148 LAB L501.5600 3.5-5. mmol/L Normal 1 K 4.3 Result Comment: Slight Hemolysis, Result may be falsely increased. LAB L501.5900 98-107 mmol/L High CL 114 LAB L501.6100 21.0-32.0 mmol/L Normal CO2 24.0 LAB L501.6200 5-15 Normal GAP 10 Performed By: #### L500.2500, L501.9520, L506.0400 #### [facility] [address] [place], [place], [id number] THYROID STIM HORMONE Collected: 06/30/2018 Status: F Source: NIKKI (TSH) 5:05 AM [facility] REPOSITORY Order Comment: SPECIMEN OBTAINED FROM LINE DRAW TYPE CODE TESTS RESULT OUT OF RANGE REFERENCE UNITS LAB L501.9520 0.358-3.74 uIU/mL Low TSH 0.07 Performed By: #### L500.2500, L501.9520, L506.0400 #### [facility] [address] [place], [place], [address] T4 FREE DIRECT Collected: 06/30/2018 Status: F Source: NIKKI 5:05 AM [facility] REPOSITORY Order Comment: SPECIMEN OBTAINED FROM LINE DRAW TYPE CODE TESTS RESULT OUT OF RANGE REFERENCE UNITS LAB L506.0400 0.76-1.46 ng/dL Normal T4 FREE 1.32 DIRECT Performed By: #### L500.2500, L501.9520, L506.0400 #### [facility] [address] [place], [address] EMERGENCY DEPARTMENT Observed: 06/30/2018 Status: F Source: SHENANDOAH SUMMARY 12:53 AM [facility] REPOSITORY [facility] Medical Records Department [address] [place] [address] Emergency Department Summary 06/29/18 1623 MR#: [id number] Acct: [id number] Name: FIOR CHRIS Rep #: [id number] : 1950 68 From: Akila Zepeda MD PCP: AMPARO Berumen Status: ADM IN - ER Visit Summary Date of Service: 06/29/18 Chief Complaint: Fever and delirium History of Present Illness: The patient is a 68 F with history of bipolar disorder, diabetes insipidus, recent diagnosis of hyperparathyroidism, history of stage III chronic kidney disease, presents for evaluation of delirium and fever. History provided by the and the patient. Patient was recently discharged after a 10 day admission to [facility], at which time she was diagnosed with hyperparathyroidism, and treated for hypercalcemia and hyponatremia. She was discharged 4 days ago. states the patient had a routine follow-up evaluation today with her primary care provider, who was concerned patient might be septic. Patient had a fever at the visit of 101.6. states there are no new symptoms since her hospital admission, and the way she is acting today is similar to the reason he took her to [facility] emergency department to begin with. She is having abnormal behavior, tremors, decreased oral intake, decreased sleep, symptoms worse at night. He denies noting a measured fever at home, and patient denies chest pain, cough, shortness of breath, abdominal pain, nausea or vomiting, diarrhea or constipation, dysuria or hematuria. Patient does have polyuria. Medication changes include changing to Ativan 3 times daily with Klonopin being discontinued. Patient's olanzapine was also increased. No other medication changes after the admission. Physical Examination: Vital signs: Oral temperature 99.5, hemodynamically stable, no hypoxia on room air General: Thin, well developed, in no distress, mildly agitated and tearful Skin: warm, dry, no rash, no conjunctival pallor HEENT: normocephalic and atraumatic; PERRL, EOMI, moist mucous membranes, no oropharyngeal lesions noted Cardiovascular: regular rate and rhythm without murmurs, no peripheral edema, 2+ pulses all distal extremities Respiratory: No increased work of breathing, lungs are clear to auscultation bilaterally, no rales, rhonchi or wheezing Abdominal: Abdomen is soft, nontender with normoactive bowel sounds, no guarding or rebound, no masses MSK: Moves all extremities, no deformities, normal strength Neuro: Awake and alert, oriented 4. No facial droop, sensation and motor function intact and symmetric, mild tremulousness in the upper extremities Test Results: Abnormal Lab Results WBC 11.5 H WBC RBC Hgb Hct MCV MCH MCHC RDW RDW Differential WBC RBC Hgb Hct MCV MCH MCHC RDW RDW Differential Plt Count MPV Immature Gran % (Auto) Clinical Impression(s) from Imaging Studies Brain CT 06/29/18 16:20 IMPRESSION: No evidence of acute intracranial or calvarial abnormality or major interval change. Electronically Signed: Gautam Ta DO at 18:01 EDT Tel [phone], Service support , Chest X-Ray 06/29/18 16:30 IMPRESSION: Atelectasis versus infiltrate at the right lung base without other major interval change. Electronically Signed: Gautam Ta DO at 16:55 EDT Tel [phone], Service support , Medications Given Discontinued Medications Sodium Chloride () 500 mls @ 1,000 mls/hr IV .Q30M BINA Stop: 06/29/18 16:59 Last Admin: 06/29/18 18:13 Dose: 1,000 mls/hr Azithromycin 500 mg/ Dextrose 255 mls @ 250 mls/hr IV X1 ONE Stop: 06/29/18 19:05 Last Admin: 06/29/18 19:03 Dose: 250 mls/hr Ceftriaxone Sodium (Rocephin) 1 gm in 50 mls @ 100 mls/hr IV X1 ONE Stop: 08/21/18 18:33 Last Admin: 06/29/18 18:19 Dose: 100 mls/hr Emergency Department Course and Treatment: Patient presents for fever and was referred by primary care doctor due to concern for possible underlying infection. states there are no new complaints since the patient was admitted at [facility], however she has had a cough for 3 weeks, increased urination and occasional dysuria for the same time period, and now measurable fever. Workup was performed to look for causes of delirium and fever. CT the head was performed to look for any mass-effect, lesion or intracranial hemorrhage. It was unremarkable. Chest x-ray showed a concern for a lower lobe pneumonia. EKG showed no ischemic changes. Patient had no significant leukocytosis. No electrolyte derangements, and kidney function at baseline. Urine was consistent with UTI. Troponin negative. Lactate normal. TSH was low but free T4 was within normal limits. Patient received IV hydration. She was started on Rocephin for coverage of pneumonia and UTI as well as azithromycin for additional coverage of pneumonia. Discussed with patient and the options for outpatient antibiotic treatment and follow-up for her tremulousness and ongoing episodes of confusion for which she was hospitalized at [facility]. They more comfortable with overnight admission for IV antibiotics. Patient was discussed with hospitalist for admission for concern for right lower lobe pneumonia, UTI, and confusion in a patient with multiple medical comorbidities including diabetes insipidus, new diagnosis of hyperparathyroidism, and mild hypercalcemia. Treatment Plan: [] Disposition: [] Impression: Right lower lobe pneumonia UTI Confusion Mild hypercalcemia History of diabetes insipidus History of hyperparathyroidism History of bipolar disorder This note was generated with [employer] dictation software. It may contain incorrect words, spelling, and punctuation that were not noted in review of the chart prior to signing ED Disposition - Plan for ED Patient: Disposition: Acute Care Hospital [facility] Chief Complaint: General Illness What to do if you have Problems For any increased pain, shortness of breath, bleeding, nausea or vomiting, chest pain, or any unexpected problems, contact your Primary Care Provider. Call [facility] ([phone]) or report to the closest Emergency Room. Call 911 if necessary. 06/30/18 0053 <Electronically signed by Akila Zepeda MD> Date Akila Waltersign Signature (If Indicated): Date CC: WINDOW TINTER-C Joan Kincaid HISTORY AND PHYSICAL Observed: 06/29/2018 Status: F Source: SHENANDOAH EXAM 10:08 PM [facility] REPOSITORY [facility] Medical Records Department [address] [place] [address] History and Physical 06/29/182036 MR#: [id number] Acct: [id number] Name: FIOR CHRIS Rep #: [id number] : 1950 68 From: Renny Ornelas MD PCP: AMPARO Berumen Status: ADM IN Y Location: [place] [address] Problem List (1) UTI (urinary tract infection) Status: Acute (2) CKD (chronic kidney disease), stage III Status: Chronic (3) Bipolar disorder Status: Chronic (4) 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 Today in the PCP office see was noted to have temperature 100.6, her mental status including behavior, anxiety has gotten worse. As per the , she has bipolar but she is more disorganized, anxious and disoriented. Patient also had Tinoco catheterization while in [facility] for urine collection for about 1 day prior to discharge. Chest x-ray shows right base infiltrate seems more atelectasis as it was present in previous chest x-ray. She has on and off chronic cough which gets exacerbated during anxiety. [] In ED, temperature was 99.5 F. 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 (Chronic) Bipolar disorder (Chronic) Allergies No Known Allergies Allergy (Verified 06/29/18 15:57) Home Medications: Ambulatory Orders Medication Instructions Recorded Lorazepam [Ativan] 1 mg PO TID PRN 11/21/15 Surgical History: noncontributory Smoking Status: Former smoker Tobacco Use: Cigarettes - *Family History Maternal History Items: No pertinent history Review of Systems Constitutional: Reports: Chills, Fever, Weakness, Fatigue HEENT: Denies: Head Aches, Sinus Congestion, Sinus Drainage Cardiovascular: Denies: Chest Pain, Palpitations Respiratory: Denies: Cough, Shortness of breath at rest, Sputum production Gastrointestinal: Reports: Nausea. Denies: Abdominal Pain, Hematemesis, Hematochezia, Vomiting Genitourinary: Reports: Dysuria, Frequency, Hesitancy, Urgency Musculoskeletal: Denies: Joint Pain, Joint Tenderness Skin: Denies: Rash, Wounds Neurological: Denies: Numbness, Tingling, Focal weakness Psychiatric: Reports: Anxiety, Depression. Denies: Homicidal Ideations, Suicidal Ideations Hematologic/ Lymphatic: Denies: Easy Bruising, Easy Bleeding VTE Information - Inpt Only VTE Present on Admission: No VTE Mechan Device Prophylaxis: None VTE Pharm Prophylaxis ordered?: Yes Patient Problems: Active and Suspected Problems UTI (urinary tract infection) (Acute) - Physical Exam General: Alert, Cooperative, Confused - Disorganized behavior, Disoriented - Disoriented to time HEENT: Atraumatic, PERRLA, EOMI, Normocephalic Oral: Dry Mucosa Neck: Supple, No JVD, Negative Carotid Bruits Lungs: Clear to auscultation, Normal air movement, No rhonchi, No wheeze Cardiovascular: Regular rate, Regular Rhythm, Normal S1, Normal S2, No murmurs Abdomen: Bowel Sounds Present, Soft, Non Tender, Non-Distended Extremities: No edema, Capillary Refill Less than 3 Seconds Skin: No rashes, No breakdown Musculoskeletal: No Tenderness to Palpation of Joints or Extremities, Arthritic Changes Neurological: Cranial nerves II-XII grossly intact, Neuro grossly intact Psych/Mental Status: Anxious, Impulsive, Restless Vital Signs Temp Pulse Resp BP Pulse Ox 98.7 F 86 18 134/90 H 98 06/29/18 18:06 06/29/18 20:02 06/29/18 19:07 06/29/18 20:02 06/29/18 20:02 Assessment/Plan All Active Problems UTI (urinary tract infection) (Acute) The patient is a 68 year old F with history of bipolar disorder, recent diagnosis of hyperparathyroidism and diabetes insipidus, CKD stage III, discharged from [facility] about 10 days ago came to ER with fever, chills, increased frequency, urgency and burning micturition for about 4 days. Today in the PCP office see was noted to have temperature 100.6, her mental status including behavior, anxiety has gotten worse. As per the , she has bipolar but she is more disorganized, anxious and disoriented. Patient also had Tinoco catheterization while in [facility] for urine collection for about 1 day prior to discharge. Chest x-ray shows right base infiltrate seems more atelectasis as it was present in previous chest x-ray. She has on and off chronic cough which gets exacerbated during anxiety. [] In ED, temperature was 99.5 F. 1. Fever due to catheter associated UTI: Patient is being admitted on regular MedSurg floor. Patient started on IV ceftriaxone. Urine culture and blood culture 2 ordered. Patient had previous E. coli UTI in October 2015. 2. Acute encephalopathy most likely secondary to UTI/metabolic encephalopathy: Treat the underlying cause. Nephrogenic diabetes insipidus: Currently patient has creatinine 1.72, BUN 26. Her baseline is about 1.5-1.6 with BUN around 25. Currently, it seems patient is dehydrated. IV fluid normal saline 100 mL/h for 1 L and then fluid restriction about 3 L per day 3. CKD stage III seems most rarely secondary to lithium: Follow kidney function and electrolytes. Monitor intake and output. The patient had hyponatremia and hypercalcemia in [facility] but currently sodium is 141, calcium 10.3. K4.2. 4 Recent diagnosis of primary hyperparathyroidism: 5. Bipolar disorder and euthyroid sick syndrome: Home medication reconciliation done. Laboratory Results 06/29/18 16:20: Lactic Acid 1.0 06/29/18 16:55: WBC 11.5 H, RBC 3.36 L, Hgb 10.5 L, Hct 32.6 L, MCV 97.0, MCH 31.3, MCHC 32.2, RDW 13.0, RDW Differential 43.9, Plt Count 229, MPV 8.5, Immature Gran % (Auto) 0.200, Neut % (Auto) 86.0 H, Lymph % (Auto) 6.1 L, Fannin % (Auto) 7.3, Eos % (Auto) 0.3, Baso % (Auto) 0.1, Absolute Neuts (auto) 9.9 H, Absolute Lymphs (auto) 0.70 L, Total Counted Not Reportable 06/29/18 16:55: PT 13.1, INR 1.0, APTT 24.8 06/29/18 16:55: Sodium 141, Potassium 4.2, Chloride 108 H, Carbon Dioxide 28.0, Anion Gap 5, BUN 26 H, Creatinine 1.72 H, Estim Creat Clear Calc 27.78, Est GFR (MDRD) Af Amer 38 L, Est GFR (MDRD) Non-Af 31 L, BUN/Creatinine Ratio 15.1, Glucose 87, Calcium 10.3 H, Magnesium 2.6, Total Bilirubin 0.50, AST 18, ALT 26, Alkaline Phosphatase 73, Troponin I < 0.015, Total Protein 7.2, Albumin 3.7, Globulin 3.5, Albumin/Globulin Ratio 1.1, TSH 0.07 L, Free T4 1.29 06/29/18 16:55: Ethyl Alcohol < 3.0 06/29/18 16:55: Phosphorus 3.4 06/29/18 17:20: Urine Color Yellow, Urine Clarity Sl. Cloudy, Urine pH 7.0, Ur Specific [place] 1.005, Urine Protein 100 H, Urine Glucose (UA) Normal, Urine Ketones Negative, Urine Occult Blood 250 H, Urine Nitrite Negative, Urine Bilirubin Negative, Urine Urobilinogen Normal, Ur Leukocyte Esterase 500 H, Urine RBC 5-10 SEEN, Urine WBC 10- 25 SEEN, Ur Squamous Epith Cells 0-5 SEEN, Urine Bacteria RARE, Urine Mucus 0 SEEN 06/29/18 17:20: Urine Opiates Screen NEGATIVE, Urine Methadone Screen NEGATIVE, Ur Barbiturates Screen NEGATIVE, Ur Phencyclidine Scrn NEGATIVE, Ur Amphetamines Screen NEGATIVE, U Methamphetamin-MDMA NEGATIVE, U Benzodiazepines Scrn NEGATIVE, Urine Cocaine Screen NEGATIVE, U Cannabinoids Screen NEGATIVE, Ur Drug Screen Comment 06/29/18 18:04: POC Glucose 92 Clinical Impression(s) from Imaging Studies Brain CT 06/29/18 16:20 IMPRESSION: No evidence of acute intracranial or calvarial abnormality or major interval change. Chest X-Ray 06/29/18 16:30 IMPRESSION: Atelectasis versus infiltrate at the right lung base without other major interval change. This note was generated with [employer] dictation software. Every effort was made to ensure accuracy, however computerized crew car driver mistakes may persist. Code Visit Inpatient E AND M: 04868 Init Hosp L3 06/29/182207 <Electronically signed by Renny Ornelas MD> Date Renny Ornelas MD Cosigner Signature: Date (if applicable) CC: WINDOW TINTER-C Joan Kincaid; Renny Ornelas MD Signed BEDSIDE GLUCOSE Collected: 06/29/2018 Status: F Source: NIKKI 6:04 PM [facility] REPOSITORY TYPE CODE TESTS RESULT OUT OF RANGE REFERENCE UNITS LAB L501.080 70-110 mg/dL Normal BEDSIDE GLU 92 Result Comment: MANAGEMENT OF PATIENT CARE PER NURSING PROTOCOL Performed By: #### L501.080 #### [facility] Point of Care [facility] [place] [address] URINE DRUG SCREEN Collected: 06/29/2018 Status: F Source: NIKKI (VISTA) 5:20 PM [facility] REPOSITORY Order Comment: Order Date: 06/29/18 Has pt arrived? Y TYPE CODE TESTS RESULT OUT OF RANGE REFERENCE UNITS LAB L505.0075 TO BE Normal CONFIRMED Result Comment: CONFIRMATORY TESTING FOR ALL POSITIVE URINE DRUG SCREEN RESULTS WILL ONLY BE SENT OUT UPON PHYSICIAN ORDER. VISTA Urine Drug Screen methods provide only preliminary analytical test results. A more specific alternate chemical method must be used in order to obtain a confirmed analytical result. Gas chromatography/mass spectrometery (GC/MS) is the preferred confirmatory method. Clinical consideration and professional judgement should be applied to any drug of abuse test result, particularly when preliminary positive results are used. URINE TCA TESTING MUST BE ORDERED SEPARATELY. USE TEST MNEMONIC: [facility] LAB L505.5005 VISTA UDS PH 6 Normal LAB L505.5015 <1000 ng/mL AMPHETAMINES Normal NEGATIVE LAB L505.5025 < 200 ng/mL BARBITIURATES Normal NEGATIVE LAB L505.5035 < 200 ng/mL BENZODIAZIPINE Normal NEGATIVE LAB L505.5045 < 300 ng/mL COCAINE Normal NEGATIVE LAB L505.5055 < 500 ng/mL ECSTACY Normal NEGATIVE LAB L505.5065 < 300 ng/mL METHADONE Normal NEGATIVE LAB L505.5075 < 300 ng/mL OPIATES Normal NEGATIVE LAB L505.5085 < 25 ng/mL PCP Normal NEGATIVE LAB L505.5095 < 50 ng/mL THC Normal NEGATIVE Performed By: #### L505.5000 #### [facility] [address] [place], [address] URINALYSIS, COMPLETE Collected: 06/29/2018 Status: F Source: SHENANDOAH 5:20 PM [facility] REPOSITORY Order Comment: Order Date: 06/29/18 Has pt arrived? Y How was Urine Obtained? CLEAN CATCH TYPE CODE TESTS RESULT OUT OF RANGE REFERENCE UNITS LAB L400.3000 Yellow COLOR Normal Yellow LAB L400.3050 Clear Normal CLARITY Sl. Cloudy LAB L400.3200 Normal mg/dl Normal GLUCOSE, UR Normal LAB L400.3300 Negative mg/dL Normal BILIRUBIN URINE Negative LAB L400.3400 Negative mg/dl Normal KETONE UR Negative LAB L400.3465 1.002-1.030 Normal SP.GR. DIPSTX 1.005 LAB L400.3550 5.0 - 8.0 pH UR Normal 7.0 LAB L400.3600 Negative mg/dl High PROT DIPSTX 100 LAB L400.3700 Normal mg/dl Normal UROBILI Normal LAB L400.3750 Negative Normal NITRITE UR Negative LAB L400.3780 Negative /ul High OCCULT BLOOD-UR 250 LAB L400.3800 Negative /ul High LEUK ESTERASE 500 LAB L400.4050 0-5 /hpf WBC Normal 10-25 SEEN LAB L400.4100 0-5 /hpf Normal RBC-UA 5-10 SEEN LAB L400.4150 5-10 /hpf SQUAM Normal EPI 0-5 SEEN LAB L400.4300 None Seen /hpf Normal BACTERIA RARE LAB L400.4350 <or=2+ /hpf 0 Normal MUCUS, URINE SEEN Performed By: #### L400.0001 #### [facility] [address] [facility] [place], [address] Observed: 06/29/2018 Status: F Source: SHENANDOAH CULTURE, URINE 5:20 PM [facility] REPOSITORY Order Date: 06/29/18 Has pt arrived? Y Urine Culture ORGANISM 1: Presumptive E. coli Howard Count 25,000-50,000 Presumptive E. coli: REACTION Amoxacillin/Clavulanic Acid $ <=2 S Ampicillin $ 4 S Ampicillin/Sulbactam $ <=2 S Cefazolin $ <=4 S Cefepime $ <=1 S Ceftriaxone $ <=1 S Ciprofloxacin $ <=0.25 S ESBL - Ertapenim $$$ <=0.5 S Gentamicin $ <=1 S Imipenem *NF <=0.25 S Levofloxacin $ <=0.12 S Nitrofurantoin $ <=16 S Piperacillin/Tazobactam $$ <=4 S Tobramycin $ <=1 S Trimethoprim/Sulfametho $ <=20 S (NF) indicates non-formulary drug at [facility]. Approval by Infectious Disease Specialist required before non-formulary drugs may be ordered and/or dispensed. Performed By: #### M100.0650 #### [facility] [address] [facility]. [place], [place], [id number] CBC W/DIFF, AUTOMATED Collected: 06/29/2018 Status: F Source: SHENANDOAH 4:55 PM [facility] REPOSITORY TYPE CODE TESTS RESULT OUT OF RANGE REFERENCE UNITS LAB L100.1000 4.4-11.0 K/mm3 High WBC 11.5 LAB L100.1200 4.2-5.4 M/mm3 Low RBC 3.36 LAB L100.1300 12.0-15.0 g/dl Low HGB 10.5 LAB L100.1400 37-47 % Low HCT 32.6 LAB L100.1500 81-99 fL Normal MCV 97.0 LAB L100.1600 27.0-32.0 pg Normal MCH 31.3 LAB L100.1700 32-36 g/gl Normal MCHC 32.2 LAB L100.1810 11.6-14.6 % Normal RDW CV 13.0 LAB L100.1820 35.1-43.9 fl Normal RDW SD 43.9 LAB L100.1900 150-450 K/mm3 Normal PLT 229 LAB L100.2000 6.2-12.0 fl Normal MPV 8.5 LAB L100.2100 47-70 % High NEUT% 86.0 LAB L100.2200 19-41 % Low LY% 6.1 LAB L100.2300 0-10 % Normal MONO% 7.3 LAB L100.2400 0-5 % Normal EO% 0.3 LAB L100.2500 0-1 % Normal BASO% 0.1 LAB L100.2550 0.0-0.9 % Normal IM GRAN % 0.200 Result Comment: IG% - Immature Granulocytes (promyelocytes, myelocytes and metamyelocytes) > 1% indicates that a LEFT SHIFT is Present. LAB L100.2620 2.0-7.7 X10 3/uL High Absolute Neut 9.9 LAB L100.2720 0.83-4.51 X10 3/ul Low Absolute Lymph 0.70 Performed By: #### L100.0100 #### [facility] [address] [place] [address], [id number] PROTHROMBIN TIME W/INR Collected: 06/29/2018 Status: F Source: SHENANDOAH 4:55 PM [facility] REPOSITORY TYPE CODE TESTS RESULT OUT OF RANGE REFERENCE UNITS LAB L300.4150 11.7-14.9 SECONDS Normal PROTIME 13.1 LAB L300.4200 Normal INR 1.0 Performed By: #### L300.3900, L300.4310 #### [facility] [address] [place], [place], [id number] PARTIAL THROMBOPLAST Collected: 06/29/2018 Status: F Source: SHENANDOAH TIME 4:55 PM [facility] REPOSITORY TYPE CODE TESTS RESULT OUT OF RANGE REFERENCE UNITS LAB L300.4310 24.1-36.2 Seconds Normal PTT 24.8 Performed By: #### L300.3900, L300.4310 #### [facility] [address] [facility] [place], [address] ALCOHOL, BLOOD Collected: 06/29/2018 Status: F Source: SHENANDOAH (MEDICAL)-SERUM 4:55 PM [facility] REPOSITORY TYPE CODE TESTS RESULT OUT OF RANGE REFERENCE UNITS LAB L501.9100 mg/dL Normal SERUM < 3.0 ETOH Result Comment: The serum:whole blood ethanol ratio is approximately 1.14 and varies slightly with hematocrit. Medical Alcohol reference interval and critical value in non-tolerant individuals; 50 - 100 Impairment 100 Intoxication 100 - 250 Severe Poisoning 250 - 400 Deep/possible fatal coma Performed By: #### L501.9100 #### [facility] [address] [facility] [place], [address] PHOSPHORUS Collected: 06/29/2018 Status: F Source: SHENANDOAH 4:55 PM [facility] REPOSITORY TYPE CODE TESTS RESULT OUT OF RANGE REFERENCE UNITS LAB L501.2300 2.5-4.9 mg/dL Normal PHOS 3.4 Performed By: #### L501.2300 #### [facility] [address] [place], [address] COMPREHENSIVE METABOLIC Collected: 06/29/2018 Status: F Source: SHENANDOAH PROFIL 4:55 PM [facility] REPOSITORY TYPE CODE TESTS RESULT OUT OF RANGE REFERENCE UNITS LAB L501.0100 74-106 mg/dL Normal GLU 87 Result Comment: Please note revised GLUCOSE reference range effective 2017. LAB L501.1000 7-18 mg/dL High BUN 26 LAB L501.1100 0.55-1.02 mg/dL High CREAT,SERUM 1.72 Result Comment: The validity of the calculated GFR AND GFRAA in patients over 70 years has not been determined. Clinical correlation is essential. LAB L501.1110 >60 mL/min Low EST GFR 31 Result Comment: Non- GFR Calc LAB L501.1115 >60 mL/min Low EST GFR - AA 38 Result Comment: GFR Calc LAB L501.1255 ml/min Normal Estimated CRCL 27.78 LAB L501.1300 10-20 RATIO Normal BUN/CRE 15.1 LAB L501.1500 6.4-8. g/dL Normal 2 T PROT 7.2 LAB L501.1800 3.2-5. g/dL Normal 0 ALB 3.7 LAB L501.1950 2.2-4. g/dL Normal 2 GLOB 3.5 LAB L501.2000 0.9-2. RATIO Normal 4 A/G 1.1 LAB L501.2200 8.5-10 mg/dL High .1 CA 10.3 LAB L501.4100 15-37 U/L Normal AST 18 LAB L501.4305 45-117 U/L Normal ALK P 73 LAB L501.4405 13-56 U/L Normal ALT 26 LAB L501.4600 0.20-1 mg/dL Normal .00 T BILI 0.50 LAB L501.5300 136-14 mmol/L Normal 5 NA 141 LAB L501.5600 3.5-5. mmol/L Normal 1 K 4.2 LAB L501.5900 98-107 mmol/L High CL 108 LAB L501.6100 21.0-3 mmol/L Normal 2.0 CO2 28.0 LAB L501.6200 5-15 Normal GAP 5 Performed By: #### L500.4050, L501.4010, L501.5200, L501.9520, L506.0400 #### [facility] [address] [place], [address] TROPONIN-I Collected: 06/29/2018 Status: F Source: SHENANDOAH 4:55 PM [facility] REPOSITORY TYPE CODE TESTS RESULT OUT OF RANGE REFERENCE UNITS LAB L501.4010 <0.045 ng/mL Normal < 0.015 TROPONIN-I Result Comment: TROPONIN-I EXPECTED VALUES <0.045 Negative 0.045 - 0.590 Consistent with Cardiac Damage > OR = 0.600 Critical Value Not every elevated troponin is indicative of TX. These values should be used with clinical judgement in examining the patient's clinical picture for diagnosis. To establish a diagnosis of TX versus myocardial injury, there must be a demonstrated rise and/or fall in the troponin values, in addition to ischemic symptoms, EKG changes, new regional wall motion abnormality, and/or angiographical evidence. PLEASE NOTE: REFERENCE RANGES EDITED 18 Performed By: #### L500.4050, L501.4010, L501.5200, L501.9520, L506.0400 #### [facility] [address] [place], [place], [id number] (103) MAGNESIUM Collected: 06/29/2018 Status: F Source: SHENANDOAH 4:55 PM [facility] REPOSITORY TYPE CODE TESTS RESULT OUT OF RANGE REFERENCE UNITS LAB L501.5200 1.6-2.6 mg/dL Normal MG 2.6 Performed By: #### L500.4050, L501.4010, L501.5200, L501.9520, L506.0400 #### [facility] [address] [facility] [address] [place], [place], [id number] THYROID STIM HORMONE Collected: 06/29/2018 Status: F Source: SHENANDOAH (TSH) 4:55 PM [facility] REPOSITORY TYPE CODE TESTS RESULT OUT OF RANGE REFERENCE UNITS LAB L501.9520 0.358-3.74 uIU/mL Low TSH 0.07 Performed By: #### L500.4050, L501.4010, L501.5200, L501.9520, L506.0400 #### [facility] [address] [facility] [address] [place], [place], [id number] T4 FREE DIRECT Collected: 06/29/2018 Status: F Source: SHENANDOAH 4:55 PM [facility] REPOSITORY TYPE CODE TESTS RESULT OUT OF RANGE REFERENCE UNITS LAB L506.0400 0.76-1.46 ng/dL Normal T4 FREE 1.29 DIRECT Performed By: #### L500.4050, L501.4010, L501.5200, L501.9520, L506.0400 #### [facility] [address] [facility] [place], [address] ERYTHROCYTE SED RATE Collected: 06/29/2018 Status: F Source: SHENANDOAH 4:55 PM [facility] REPOSITORY TYPE CODE TESTS RESULT OUT OF RANGE REFERENCE UNITS LAB L102.0000 0-30 mm/hr Normal SED RATE 22 Performed By: #### L101.9900 #### [facility] [address] [place], [place], [address] Observed: 06/29/2018 Status: F Source: NIKKI CULTURE, BLOOD (WB) 4:55 PM [facility] REPOSITORY ANAEROBIC BOTTLE POSITIVE GRAM STAIN= GRAM NEGATIVE RODS CRITICAL VALUE VERIFIED. CALLED TO AMNA LANDON 06/30/18 0410 Josi Lawrence. RESULTS READ BACK BY SAME . REFER TO [id number] FOR IDENTIFICATION AND SENSITIVITIES Probable Escherichia coli ORGANISM 1: GNR lactose beveler Amount Growth Growth Performed By: #### M200.1000 #### [facility] [address] [facility] [place], [place], [id number] Observed: 06/29/2018 Status: F Source: NIKKI CULTURE, BLOOD (WB) 4:55 PM [facility] REPOSITORY AEROBIC BOTTLE POSITIVE GRAM STAIN= GRAM NEGATIVE RODS CRITICAL VALUE VERIFIED. CALLED TO STERLING MOYA 06/30/18 0559 Josi Lawrence. RESULTS READ BACK BY SAME . ORGANISM 1: Escherichia coli Amount Growth Growth Escherichia coli: REACTION Amoxacillin/Clavulanic Acid $ 4 S Ampicillin $ 4 S Ampicillin/Sulbactam $ <=2 S Cefazolin $ <=4 S Cefepime $ <=1 S Ceftriaxone $ <=1 S Ciprofloxacin $ <=0.25 S ESBL - Ertapenim $$$ <=0.5 S Gentamicin $ <=1 S Imipenem *NF <=0.25 S Levofloxacin $ <=0.12 S Piperacillin/Tazobactam $$ <=4 S Tobramycin $ <=1 S Trimethoprim/Sulfametho $ <=20 S (NF) indicates non-formulary drug at [facility]. Approval by Infectious Disease Specialist required before non-formulary drugs may be ordered and/or dispensed. Performed By: #### M200.1000 #### [facility] [address] [place], [place], [id number] CHEST 1 VIEW Observed: 06/29/2018 Status: F Source: SHENANDOAH (PORTABLE) 4:23 PM [facility] REPOSITORY [facility] Imaging Services [address] [place] [address] Chest 1 View (Portable) MR#: [id number] Acct: [id number] Name: FIOR CHRIS Rep #: [id number] : 1950 F 68 From: Gautam Ta DO PCP: Joan Kincaid, WINDOW TINTER-C Status: REG ER Study: Chest 1 View (Portable) Date of Exam: 06/29/18 Exam# [id number] Ordering Dr: Akila Zepeda MD STUDY: X-RAY CHEST REASON FOR EXAM: Female, 68 years old. Frequent urination. Fever and delirium. Question sepsis. TECHNIQUE: Single AP portable view of the chest. COMPARISON: February 11, 2017. FINDINGS: There is a decreased inspiratory effort. There is atelectasis versus infiltrate in the right lung base. The lungs are otherwise clear. There is no demonstrated pleural abnormality. Normal size heart. Normal mediastinum and tarik. Normal visualized pulmonary arteries. There is atherosclerotic calcification of the aortic arch with tortuosity. There are diffuse degenerative changes of the visualized thoracic spine. There is degenerative osteoarthritis of the bilateral shoulders. There is no demonstrated abnormality of the visualized soft tissue structures of the upper abdomen. RAD/Chest 1 View (Portable) IMPRESSION: Atelectasis versus infiltrate at the right lung base without other major interval change. Electronically Signed: Gautam Ta DO at 16:55 EDT Tel [phone], Service support , CC: WINDOW TINTER-C Joan Kincaid; Akila Zepeda MD [facility] [employer]inder: Signed BRAIN/HEAD WITHOUT Observed: 06/29/2018 Status: F Source: NIKKI CONTRAST 4:23 PM [facility] REPOSITORY [facility] Imaging Services [address] [place] [address] Brain/Head without Contrast MR#: [id number] Acct: [id number] Name: FIOR CHRIS Rep #: [id number] : 1950 F 68 From: Gautam Ta DO PCP: AMPARO Berumen Status: REG ER Study: Brain/Head without Contrast Date of Exam: 06/29/18 Exam# [id number] Ordering Dr: Akila Zepeda MD STUDY: CT BRAIN WITHOUT CONTRAST REASON FOR EXAM: Female, 68 years old. Confusion. Fever and delirium. Sepsis. UTI. Electrolyte imbalance. History of bipolar disease. RADIATION DOSAGE (If Supplied By Facility): CTDIvol = ( 44.99 ) mGy, DLP = ( 711.75 ) mGycm TECHNIQUE: Transaxial CT imaging of the brain was performed without administration of intravenous contrast material. Individualized dose optimization techniques were used for this CT. COMPARISON: November 07, 2015. FINDINGS: Normal soft tissue structures. Normal calvarium. Normal size ventricles and extra-axial spaces for the patient's age. There are areas of decreased attenuation within the white matter tracts of the supratentorial brain, consistent with microvascular disease changes. Normal basal ganglia and thalami. Normal brainstem. Normal cerebellum. There is no intracranial hemorrhage. There are no findings of an acute ischemic infarction. Normal visualized paranasal sinuses. CT/Brain/Head without Contrast IMPRESSION: No evidence of acute intracranial or calvarial abnormality or major interval change. Electronically Signed: Gautam Ta DO at 18:01 EDT Tel [phone], Service support , CC: AMPARO Kincaid; Akila Zepeda MD White [employer] Grinder: Signed LACTIC ACID Collected: 06/29/2018 Status: F Source: NIKKI 4:20 PM [facility] REPOSITORY Order Comment: Yes/No query for Sepsis Lactate Rule Y TYPE CODE TESTS RESULT OUT OF RANGE REFERENCE UNITS LAB L503.6005 0.4-2.0 mmol/L Normal LACTIC ACID 1.0 Performed By: #### L503.6005 #### [facility] [address] [place], [place], [id number] COMPREHENSIVE METABOLIC Collected: 06/28/2018 Status: F Source: NIKKI SIGALA 9:47 AM [facility] REPOSITORY TYPE CODE TESTS RESULT OUT OF RANGE REFERENCE UNITS LAB L501.0100 74-106 mg/dL Normal GLU 101 Result Comment: Fasting Glucose result from 100 to 125 mg/dL suggests IMPAIRED HOMEOSTASIS per A.D.A. criteria. Please note revised GLUCOSE reference range effective 2017. LAB L501.1000 7-18 mg/dL High BUN 31 LAB L501.1100 0.55-1.02 mg/dL High CREAT,SERUM 1.65 Result Comment: The validity of the calculated GFR AND GFRAA in patients over 70 years has not been determined. Clinical correlation is essential. LAB L501.1110 >60 mL/min Low EST GFR 33 Result Comment: Non- GFR Calc LAB L501.1115 >60 mL/min Low EST GFR - AA 40 Result Comment: GFR Calc LAB L501.1300 10-20 RATIO Normal BUN/CRE 18.8 LAB L501.1500 6.4-8.2 g/dL T Normal PROT 6.8 LAB L501.1800 3.2-5.0 g/dL Normal ALB 3.7 LAB L501.1950 2.2-4.2 g/dL Normal GLOB 3.1 LAB L501.2000 0.9-2.4 RATIO Normal A/G 1.2 LAB L501.2200 8.5-10.1 mg/dL High CA 10.3 LAB L501.4100 15-37 U/L Normal AST 19 LAB L501.4305 45-117 U/L Normal ALK P 65 LAB L501.4405 13-56 U/L Normal ALT 27 LAB L501.4600 0.20-1.00 mg/dL T Normal BILI 0.40 LAB L501.5300 136-145 mmol/L High NA 148 LAB L501.5600 3.5-5.1 mmol/L K Normal 4.1 LAB L501.5900 98-107 mmol/L High CL 111 LAB L501.6100 21.0-32.0 mmol/L Normal CO2 25.0 LAB L501.6200 5-15 Normal GAP 12 Performed By: #### L500.4050 #### [facility] [place], [address] US THYROID Observed: 06/25/2018 Status: F Source: [facility] 8:40 AM [facility] REPOSITORY EXAM: US THYROID, 06/24/2018 18:47 PM CLINICAL INDICATIONS: 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 TECHNIQUE: Real-time, grayscale ultrasound evaluation of the neck was performed in transverse and longitudinal orientations using a high-resolution linear array transducer. Color Doppler was utilized to assess vascular flow. FINDINGS: Background thyroid parenchyma is slightly heterogeneous in echotexture. The right lobe measures 5.2 x 2.6 x 2.2 cm and the left lobe measures 5.1 x 2.6 x 1.7 cm. The isthmus is normal in appearance and measures 4 mm. Thyroid gland is mildly enlarged in size. There is a hypoechoic spongiform nodule in the superior pole right lobe measuring 6 x 5 x 5 mm in size showing some internal and peripheral vascularity which likely represents a low suspicion pattern nodule. Iso to slightly hyperechoic nodule in the midpole right lobe measuring 9 x 8 x 10 mm in size. Surrounding and internal vascularity is seen within this nodule. This likely represents an intermediate suspicion pattern nodule. There is a isoechoic to hyperechoic nodule with internal cystic changes in the superior pole left lobe measuring 6 x 3 x 5 mm in size showing some peripheral vascularity. This likely represents a low suspicion pattern nodule. Solid irregular nodule in the midpole left lobe which is isoechoic measures 1.4 x 1.2 x 1.1 cm in size with internal and peripheral vascularity which likely represents a low to intermediate suspicion pattern nodule. Small solid cystic nodule in the inferior pole of the left lobe measures 5 x 5 x 4 mm in size and likely represents a low suspicion pattern nodule. Within the right isthmus there is a cystic nodule with a tiny echogenic focus measuring 6 x 3 x 5 mm in size likely a colloid cyst-benign finding IMPRESSION: 1. Heterogeneous multinodular thyroid goiter. 2. Multiple low to intermediate suspicion pattern nodules in the right and left thyroid lobes with a dominant nodule in the midpole of the left lobe. These do not meet size criteria for tissue diagnosis. Follow- up is recommended * Lesions are classified using the [place] [employer] guidelines of 2015. (Thyroid, Volume 26, #1, 2016) 7 Collected: 06/25/2018 Status: F Source: [facility] 4:44 AM [facility] REPOSITORY TYPE CODE TESTS RESULT OUT OF REFERENCE UNITS RANGE LAB BUN 7-22 mg/dL BUN High 27 LAB NA 133-143 mmol/L Sodium High 144 LAB K 3.5-5.0 mmol/L Potassium 4.2 LAB CL 98-108 mmol/L Chloride High 111 LAB CO2 22-30 mmol/L Carbon Dioxide 25 LAB GLUC 70-99 mg/dL Glucose 94 LAB CREA 0.50-1.20 mg/dL High Creatinine 1.39 LAB GAP 7-17 mmol/L Anion Gap 12 LAB BC BUN/CREA Ratio 19 LAB OSMC 278-305 mOsm/kg Osmolality 305 (Calc) LAB GFR >60 mL/min/1.73 Low sqM Est GFR,non 38 [place] LAB GFRA >60 mL/min/1.73 Low sqM Est GFR, 45 Performed By: #### CHM7, CA, IPB, MGO #### [facility] [address] [place] [address] CALCIUM Collected: 06/25/2018 Status: F Source: [facility] 4:44 AM [facility] REPOSITORY TYPE CODE TESTS RESULT OUT OF REFERENCE UNITS RANGE LAB CA 8.6-10.5 mg/dL Calcium 10.3 Performed By: #### CHM7, CA, IPB, MGO #### [facility] [address] [place] [address] INORGANIC PHOSPHATE Collected: 06/25/2018 Status: F Source: [facility] 4:44 AM [facility] REPOSITORY TYPE CODE TESTS RESULT OUT OF REFERENCE UNITS RANGE LAB IP 2.2-4.6 mg/dL Inorg Phosphate 3.2 Performed By: #### CHM7, CA, IPB, MGO #### [facility] [address] [place] [address] [facility] [address] [place] [address] MAGNESIUM Collected: 06/25/2018 Status: F Source: [facility] 4:44 AM [facility] REPOSITORY TYPE CODE TESTS RESULT OUT OF REFERENCE UNITS RANGE LAB MG 1.6-2.6 mg/dL Magnesium 2.4 Performed By: #### CHM7, CA, IPB, MGO #### [facility] [address] [place] [address] [address] CHEM 6 Collected: 06/24/2018 Status: F Source: [facility] 3:59 PM [facility] REPOSITORY TYPE CODE TESTS RESULT OUT OF REFERENCE UNITS RANGE LAB BUN 7-22 mg/dL BUN High 31 LAB NA 133-143 mmol/L Sodium 138 LAB K 3.5-5.0 mmol/L Potassium 4.5 LAB CL 98-108 mmol/L Chloride 104 LAB CO2 22-30 mmol/L Carbon Dioxide 26 LAB CREA 0.50-1.20 mg/dL High Creatinine 1.46 LAB GAP 7-17 mmol/L Anion Gap 13 LAB BC BUN/CREA Ratio 21 LAB GFR >60 mL/min/1.73 Low sqM Est GFR,non 36 [place] LAB GFRA >60 mL/min/1.73 Low sqM Est GFR, 43 Performed By: #### CHM6 #### [facility] [address] [place] [address] [address] SPECIMEN COMMENT: Collected: 06/24/2018 Status: F Source: [facility] 2:20 PM [facility] REPOSITORY TYPE CODE TESTS RESULT OUT OF REFERENCE UNITS RANGE LAB VOL 0-6000 mL Volume 2644 LAB INT hrs Interval 24 Performed By: #### AASPEC, UCRE, UCA #### [facility] [address] [place] [address] [place] [address] [address] CREATININE, 24HR URINE Collected: 06/24/2018 Status: F Source: [facility] 2:20 PM [facility] REPOSITORY TYPE CODE TESTS RESULT OUT OF RANGE REFERENCE UNITS LAB CREU1 mg/dL 31.00 Creatinine, urine mg/dL LAB CREU2 0.6-1.8 g/24 hrs 0.82 *CREATININE, UR, 24HR Performed By: #### LEXY, RADHA, WALTERA #### [facility] [address] [place] [id number] [place] [address] [address] URINE CALCIUM, 24 Collected: 06/24/2018 Status: F Source: [facility] HOUR 2:20 PM [facility] REPOSITORY TYPE CODE TESTS RESULT OUT OF REFERENCE UNITS RANGE LAB CAU1 mg/dL URINE CALCIUM 2.3 LAB CAU2 100-300 mg/24 hrs Low URINE CALCIUM 61 Performed By: #### LEXY, RADHA, LEVI #### [facility] [address] [address] OSMOLALITY Collected: 06/24/2018 Status: F Source: [facility] 2:20 PM [facility] REPOSITORY TYPE CODE TESTS RESULT OUT OF REFERENCE UNITS RANGE LAB OSMO 278-305 mOsm/kg Osmolality 294 Performed By: #### OSMO #### [facility] [address] [address] CALCIUM/CREATININE, RANDOM Collected: Status: F Source: [facility] URINE 06/24/2018 7:01 AM [facility] REPOSITORY TYPE CODE TESTS RESULT OUT OF REFERENCE UNITS RANGE LAB CAU1 mg/dL URINE CALCIUM 1.2 LAB CREU1 mg/dL Creatinine, 12.00 urine mg/dL LAB CALCCR <0.22 CA mg/Crea mg Calcium/Creat 0.10 inine, random uri Performed By: #### CALCR #### [facility] [address] [address] BMP WITHOUT GLUCOSE Collected: 06/24/2018 Status: F Source: [facility] 6:35 AM [facility] REPOSITORY TYPE CODE TESTS RESULT OUT OF REFERENCE UNITS RANGE LAB BUN 7-22 mg/dL BUN High 31 LAB NA 133-143 mmol/L Sodium High 145 LAB K 3.5-5.0 mmol/L Potassium 4.4 LAB CL 98-108 mmol/L Chloride High 111 LAB CO2 22-30 mmol/L Carbon Dioxide 25 LAB CREA 0.50-1.20 mg/dL High Creatinine 1.64 LAB GAP 7-17 mmol/L Anion Gap 13 LAB BC BUN/CREA Ratio 19 LAB CA 8.6-10.5 mg/dL Calcium 10.2 LAB GFR >60 mL/min/1.73 Low sqM Est GFR,non 31 [place] LAB GFRA >60 mL/min/1.73 Low sqM Est GFR, 38 Performed By: #### BMPN, ALB #### [facility] [address] [place] [address] [address] [place] [address] ALBUMIN Collected: 06/24/2018 Status: F Source: [facility] 6:35 AM [facility] REPOSITORY TYPE CODE TESTS RESULT OUT OF REFERENCE UNITS RANGE LAB MG 1.6-2.6 mg/dL Magnesium 2.4 Performed By: #### BMPN, ALB #### [facility] [address] [place] [id number] [place] [address] [address] [place] [address] HEMOGRAM (CBC AND Collected: 06/24/2018 Status: F Source: [facility] PLATELET) 5:04 AM [facility] REPOSITORY TYPE CODE TESTS RESULT OUT OF REFERENCE UNITS RANGE LAB WBC 3.98-10.04 K/uL WBC Count 5.60 LAB RBC 3.93-5.22 M/uL Low RBC Count 3.39 LAB HGB 11.2-15.7 g/dL Low Hemoglobin 10.5 LAB HCT 34.1-44.9 % Low Hematocrit 32.2 LAB MCV 79.4-94.8 fL Mean Cell High Volume 95.0 LAB MCH 25.6-32.2 pg Mean Cell Hgb 31.0 LAB MCHC 32.2-35.5 g/dL Mean Cell Hgb Conc 32.6 LAB RDW 11.7-14.4 % RBC Distribution 13.0 LAB PLT 182-369 K/uL Platelet Count 282 LAB MPV 9.4-12.3 fL Low Mean Platelet Volume 8.4 LAB NRBC 0.0-0.2 /100 WBC NUCLEATED RBC 0.0 Performed By: #### HEMOGC, IPTH #### [facility] [address] [place] [address] [place] [address] INTACT PTH Collected: 06/24/2018 Status: F Source: [facility] 5:04 AM [facility] REPOSITORY TYPE CODE TESTS RESULT OUT OF REFERENCE UNITS RANGE LAB IPTH 14.0-72.0 pg/mL High INTACT PTH 92.6 Performed By: #### HEMOGC, IPTH #### [facility] [address] [place] [address] [address] [place] [address] BUN Collected: 06/23/2018 Status: F Source: [facility] 6:27 PM [facility] REPOSITORY TYPE CODE TESTS RESULT OUT OF REFERENCE UNITS RANGE LAB OSMO 278-305 mOsm/kg Osmolality 302 Performed By: #### BUN, PATI #### [facility] [address] [place] [address] [address] SODIUM Collected: 06/23/2018 Status: F Source: [facility] 6:27 PM [facility] REPOSITORY TYPE CODE TESTS RESULT OUT OF REFERENCE UNITS RANGE LAB NA 133-143 mmol/L Sodium 141 Performed By: #### BUN, PATI #### [facility] [id number] [place] [address] [address] SODIUM Collected: 06/23/2018 Status: F Source: [facility] 11:04 AM [facility] REPOSITORY TYPE CODE TESTS RESULT OUT OF REFERENCE UNITS RANGE LAB NA 133-143 mmol/L High Sodium 145 Performed By: #### PATI #### [facility] [id number] [place] [address] [address] IONIZED CALCIUM Collected: 06/23/2018 Status: F Source: [facility] 3:00 AM [facility] REPOSITORY TYPE CODE TESTS RESULT OUT OF REFERENCE UNITS RANGE LAB ICA 4.60-5.30 mg/dL High Ionized 5.35 Calcium Performed By: #### ICA, HEMOGC, HFP, CHM7, CA, IPB, MGO, IPTH #### [facility] [address] [place] [address] [facility] [address] [place] [address] HEMOGRAM (CBC AND Collected: 06/23/2018 Status: F Source: [facility] PLATELET) 3:00 AM [facility] REPOSITORY TYPE CODE TESTS RESULT OUT OF REFERENCE UNITS RANGE LAB WBC 3.98-10.04 K/uL WBC Count 8.41 LAB RBC 3.93-5.22 M/uL Low RBC Count 3.74 LAB HGB 11.2-15.7 g/dL Low Hemoglobin 11.1 LAB HCT 34.1-44.9 % Hematocrit 35.8 LAB MCV 79.4-94.8 fL Mean Cell High Volume 95.7 LAB MCH 25.6-32.2 pg Mean Cell Hgb 29.7 LAB MCHC 32.2-35.5 g/dL Low Mean Cell Hgb Conc 31.0 LAB RDW 11.7-14.4 % RBC Distribution 13.0 LAB PLT 182-369 K/uL Platelet Count 289 LAB MPV 9.4-12.3 fL Low Mean Platelet Volume 8.0 LAB NRBC 0.0-0.2 /100 WBC NUCLEATED RBC 0.0 Performed By: #### ICA, HEMOGC, HFP, CHM7, CA, IPB, MGO, IPTH #### [facility] [address] [place] [address] [facility] [address] [place] [address] HEPATIC FUNCTION Collected: 06/23/2018 Status: F Source: [facility] 3:00 AM [facility] REPOSITORY TYPE CODE TESTS RESULT OUT OF REFERENCE UNITS RANGE LAB ALB 3.5-5.0 g/dL Albumin 4.3 LAB BILD <0.3 mg/dL Bilirubin Direct 0.1 LAB BILT <1.5 mg/dL Bilirubin Total 0.3 LAB ALP 32-126 U/L Alkaline Phosphatase 78 LAB ALT 9-48 U/L ALT 17 LAB AST 14-40 U/L AST 15 LAB TP 6.4-8.3 g/dL Total Protein 6.7 Performed By: #### ICA, HEMOGC, HFP, CHM7, CA, IPB, MGO, IPTH #### [facility] [address] [place] [phone] [place] [address] [address] [place] [address] CHEM 7 Collected: 06/23/2018 Status: F Source: [facility] 3:00 [facility] REPOSITORY TYPE CODE TESTS RESULT OUT OF REFERENCE UNITS RANGE LAB BUN 7-22 mg/dL BUN High 33 LAB NA 133-143 mmol/L Sodium 143 LAB K 3.5-5.0 mmol/L Potassium 4.3 LAB CL 98-108 mmol/L Chloride High 109 LAB CO2 22-30 mmol/L Carbon Dioxide 25 LAB GLUC 70-99 mg/dL Glucose High 106 LAB CREA 0.50-1.20 mg/dL High Creatinine 1.60 LAB GAP 7-17 mmol/L Anion Gap 13 LAB BC BUN/CREA Ratio 21 LAB OSMC 278-305 mOsm/kg High Osmolality 307 (Calc) LAB GFR >60 mL/min/1.73 Low sqM Est GFR,non 32 [place] LAB GFRA >60 mL/min/1.73 Low sqM Est GFR, 39 Performed By: #### ICA, HEMOGC, HFP, CHM7, CA, IPB, MGO, IPTH #### [facility] [address] [place] [address] [address] [place] [address] CALCIUM Collected: 06/23/2018 Status: F Source: [facility] 3:00 AM [facility] REPOSITORY TYPE CODE TESTS RESULT OUT OF REFERENCE UNITS RANGE LAB CA 8.6-10.5 mg/dL High Calcium 10.9 Performed By: #### ICA, HEMOGC, HFP, CHM7, CA, IPB, MGO, IPTH #### [facility] [address] [place] [phone] [place] [address] [address] [place] [address] INORGANIC PHOSPHATE Collected: 06/23/2018 Status: F Source: [facility] 3:00 AM [facility] REPOSITORY TYPE CODE TESTS RESULT OUT OF REFERENCE UNITS RANGE LAB IP 2.2-4.6 mg/dL Inorg High Phosphate 4.8 Performed By: #### ICA, HEMOGC, HFP, CHM7, CA, IPB, MGO, IPTH #### [facility] [address] [place] [id number] [place] [address] [address] [place] [address] MAGNESIUM Collected: 06/23/2018 Status: F Source: [facility] 3:00 AM [facility] REPOSITORY TYPE CODE TESTS RESULT OUT OF REFERENCE UNITS RANGE LAB MG 1.6-2.6 mg/dL Magnesium 2.4 Performed By: #### ICA, HEMOGC, HFP, CHM7, CA, IPB, MGO, IPTH #### [facility] [address] [place] [address] [place] [address] INTACT PTH Collected: 06/23/2018 Status: F Source: [facility] 3:00 AM [facility] REPOSITORY TYPE CODE TESTS RESULT OUT OF REFERENCE UNITS RANGE LAB IPTH 14.0-72.0 pg/mL High INTACT PTH 80.0 Performed By: #### ICA, HEMOGC, HFP, CHM7, CA, IPB, MGO, IPTH #### [facility] [address] [place] [address] [address] [place] [address] OSMOLALITY Collected: 06/22/2018 Status: F Source: [facility] 9:44 PM [facility] REPOSITORY TYPE CODE TESTS RESULT OUT OF REFERENCE UNITS RANGE LAB OSMO 278-305 mOsm/kg High Osmolality 306 Performed By: #### OSMO #### [facility] [address] [place] [address] [address] [place] [address] CHEM 6 Collected: 06/22/2018 Status: F Source: [facility] 4:31 PM [facility] REPOSITORY TYPE CODE TESTS RESULT OUT OF REFERENCE UNITS RANGE LAB BUN 7-22 mg/dL BUN High 32 LAB NA 133-143 mmol/L Sodium 136 LAB K 3.5-5.0 mmol/L Potassium 4.8 LAB CL 98-108 mmol/L Chloride 105 LAB CO2 22-30 mmol/L Low Carbon Dioxide 19 LAB CREA 0.50-1.20 mg/dL High Creatinine 1.65 LAB GAP 7-17 mmol/L Anion Gap 17 LAB BC BUN/CREA Ratio 19 LAB GFR >60 mL/min/1.73 Low sqM Est GFR,non 31 [place] LAB GFRA >60 mL/min/1.73 Low sqM Est GFR, 37 Performed By: #### CHM6, OSMO #### [facility] [address] [place] [address] [address] [place] [address] OSMOLALITY Collected: 06/22/2018 Status: F Source: [facility] 4:31 PM [facility] REPOSITORY TYPE CODE TESTS RESULT OUT OF REFERENCE UNITS RANGE LAB OSMO 278-305 mOsm/kg High alert Osmolality 431 Result Comment: Called to and read back by ALEXEY MORRISON AT ThuJun 22 21:08:55 2017 Performed By: #### CHM6, OSMO #### [facility] [address] [place] [address] [address] [place] [address] OSMOLALITY, URINE - Collected: 06/22/2018 Status: F Source: [facility] 7:25 AM [facility] REPOSITORY TYPE CODE TESTS RESULT OUT OF REFERENCE UNITS RANGE LAB UOSM 300-900 mOsm/kg Low Urine Osmolality 211 Performed By: #### UOSMR #### [facility] [address] [place] [phone] [place] [address] [place] [address] SODIUM Collected: 06/22/2018 Status: F Source: [facility] 7:25 AM [facility] REPOSITORY TYPE CODE TESTS RESULT OUT OF REFERENCE UNITS RANGE LAB NA 133-143 mmol/L Sodium 141 Performed By: #### PATI, OSMO #### [facility] [address] [place] [id number] [place] [address] [place] [address] [phone] OSMOLALITY Collected: 06/22/2018 Status: F Source: [facility] 7:25 AM [facility] REPOSITORY TYPE CODE TESTS RESULT OUT OF REFERENCE UNITS RANGE LAB OSMO 278-305 mOsm/kg Osmolality 298 Performed By: #### PATI, OSMO #### [facility] [address] [place] [address] [phone] [facility] [address] [place] [address] [phone] HEMOGRAM (CBC AND Collected: 06/22/2018 Status: F Source: [facility] PLATELET) 4:02 AM [facility] REPOSITORY TYPE CODE TESTS RESULT OUT OF REFERENCE UNITS RANGE LAB WBC 3.98-10.04 K/uL WBC Count 8.24 LAB RBC 3.93-5.22 M/uL Low RBC Count 3.68 LAB HGB 11.2-15.7 g/dL Low Hemoglobin 10.9 LAB HCT 34.1-44.9 % Hematocrit 34.5 LAB MCV 79.4-94.8 fL Mean Cell Volume 93.8 LAB MCH 25.6-32.2 pg Mean Cell Hgb 29.6 LAB MCHC 32.2-35.5 g/dL Low Mean Cell Hgb Conc 31.6 LAB RDW 11.7-14.4 % RBC Distribution 13.0 LAB PLT 182-369 K/uL Platelet Count 296 LAB MPV 9.4-12.3 fL Low Mean Platelet Volume 8.2 LAB NRBC 0.0-0.2 /100 WBC NUCLEATED RBC 0.0 Performed By: #### HEMOGC, CA, CHM7, IPB, MGO #### [facility] [address] [place] [id number] [place] [address] [place] [address] 19863 CALCIUM Collected: 06/22/2018 Status: F Source: [facility] 4:02 AM [facility] REPOSITORY TYPE CODE TESTS RESULT OUT OF REFERENCE UNITS RANGE LAB CA 8.6-10.5 mg/dL High Calcium 11.1 Performed By: #### HEMOGC, CA, CHM7, IPB, MGO #### [facility] [address] [place] [id number] [place] [address] [place] [address] [id number] CHEM 7 Collected: 06/22/2018 Status: F Source: [facility] 4:02 AM [facility] REPOSITORY TYPE CODE TESTS RESULT OUT OF REFERENCE UNITS RANGE LAB BUN 7-22 mg/dL BUN High 34 LAB NA 133-143 mmol/L Sodium 143 LAB K 3.5-5.0 mmol/L Potassium 4.9 LAB CL 98-108 mmol/L Chloride High 109 LAB CO2 22-30 mmol/L Carbon Dioxide 24 LAB GLUC 70-99 mg/dL Glucose High 109 LAB CREA 0.50-1.20 mg/dL High Creatinine 1.60 LAB GAP 7-17 mmol/L Anion Gap 15 LAB BC BUN/CREA Ratio 21 LAB OSMC 278-305 mOsm/kg High Osmolality 308 (Calc) LAB GFR >60 mL/min/1.73 Low sqM Est GFR,non 32 [place] LAB GFRA >60 mL/min/1.73 Low sqM Est GFR, 39 Performed By: #### HEMOGC, CA, CHM7, IPB, MGO #### [facility] [address] [place] [address] [place] [address] INORGANIC PHOSPHATE Collected: 06/22/2018 Status: F Source: [facility] 4:02 AM [facility] REPOSITORY TYPE CODE TESTS RESULT OUT OF REFERENCE UNITS RANGE LAB IP 2.2-4.6 mg/dL Inorg High Phosphate 4.9 Performed By: #### HEMOGC, CA, CHM7, IPB, MGO #### [facility] [address] [place] [address] [address] [place] [address] [phone] MAGNESIUM Collected: 06/22/2018 Status: F Source: [facility] 4:02 AM [facility] REPOSITORY TYPE CODE TESTS RESULT OUT OF REFERENCE UNITS RANGE LAB MG 1.6-2.6 mg/dL Magnesium 2.4 Performed By: #### HEMOGC, CA, CHM7, IPB, MGO #### [facility] [address] [place] [address] [place] [address] [id number] CHEM 6 Collected: 06/21/2018 Status: F Source: [facility] 4:21 PM [facility] REPOSITORY TYPE CODE TESTS RESULT OUT OF REFERENCE UNITS RANGE LAB BUN 7-22 mg/dL BUN High 32 LAB NA 133-143 mmol/L Sodium 142 LAB K 3.5-5.0 mmol/L Potassium 4.5 LAB CL 98-108 mmol/L Chloride 108 LAB CO2 22-30 mmol/L Carbon Dioxide 25 LAB CREA 0.50-1.20 mg/dL High Creatinine 1.54 LAB GAP 7-17 mmol/L Anion Gap 14 LAB BC BUN/CREA Ratio 21 LAB GFR >60 mL/min/1.73 Low sqM Est GFR,non 33 [place] LAB GFRA >60 mL/min/1.73 Low sqM Est GFR, 40 Performed By: #### CHM6, OSMO #### [facility] [address] [place] [address] [address] [place] [address] 81924 OSMOLALITY Collected: 06/21/2018 Status: F Source: [facility] 4:21 PM [facility] REPOSITORY TYPE CODE TESTS RESULT OUT OF REFERENCE UNITS RANGE LAB OSMO 278-305 mOsm/kg Osmolality 303 Performed By: #### CHM6, OSMO #### [facility] [address] [place] [address] [address] [place] [address] 50077 SODIUM Collected: 06/21/2018 Status: F Source: [facility] 7:40 AM [facility] REPOSITORY TYPE CODE TESTS RESULT OUT OF REFERENCE UNITS RANGE LAB NA 133-143 mmol/L Sodium 139 Performed By: #### PATI #### [facility] [address] [place] [address] [address] [place] [address] [id number] HEMOGRAM (CBC AND Collected: 06/21/2018 Status: F Source: [facility] PLATELET) 2:36 AM [facility] REPOSITORY TYPE CODE TESTS RESULT OUT OF REFERENCE UNITS RANGE LAB WBC 3.98-10.04 K/uL WBC Count 7.21 LAB RBC 3.93-5.22 M/uL Low RBC Count 3.51 LAB HGB 11.2-15.7 g/dL Low Hemoglobin 10.3 LAB HCT 34.1-44.9 % Low Hematocrit 32.6 LAB MCV 79.4-94.8 fL Mean Cell Volume 92.9 LAB MCH 25.6-32.2 pg Mean Cell Hgb 29.3 LAB MCHC 32.2-35.5 g/dL Low Mean Cell Hgb Conc 31.6 LAB RDW 11.7-14.4 % RBC Distribution 12.9 LAB PLT 182-369 K/uL Platelet Count 263 LAB MPV 9.4-12.3 fL Low Mean Platelet Volume 8.1 LAB NRBC 0.0-0.2 /100 WBC NUCLEATED RBC 0.0 Performed By: #### HEMOGC, CA, CHM7, IPB, MGO #### [facility] [address] [place] [address] [address] [place] [place] [address] CALCIUM Collected: 06/21/2018 Status: F Source: [facility] 2:36 AM [facility] REPOSITORY TYPE CODE TESTS RESULT OUT OF REFERENCE UNITS RANGE LAB CA 8.6-10.5 mg/dL Calcium 10.5 Performed By: #### HEMOGC, CA, CHM7, IPB, MGO #### [facility] [address] [place] [address] CHEM 7 Collected: 06/21/2018 Status: F Source: [facility] 2:36 AM [facility] REPOSITORY TYPE CODE TESTS RESULT OUT OF REFERENCE UNITS RANGE LAB BUN 7-22 mg/dL BUN High 36 LAB NA 133-143 mmol/L Sodium 137 LAB K 3.5-5.0 mmol/L Potassium 4.5 LAB CL 98-108 mmol/L Chloride 106 LAB CO2 22-30 mmol/L Carbon Dioxide 23 LAB GLUC 70-99 mg/dL Glucose High 106 LAB CREA 0.50-1.20 mg/dL High Creatinine 1.81 LAB GAP 7-17 mmol/L Anion Gap 13 LAB BC BUN/CREA Ratio 20 LAB OSMC 278-305 mOsm/kg Osmolality 297 (Calc) LAB GFR >60 mL/min/1.73 Low sqM Est GFR,non 28 [place] LAB GFRA >60 mL/min/1.73 Low sqM Est GFR, 34 Performed By: #### HEMOGC, CA, CHM7, IPB, MGO #### [facility] [address] [place] [address] INORGANIC PHOSPHATE Collected: 06/21/2018 Status: F Source: [facility] 2:36 AM [facility] REPOSITORY TYPE CODE TESTS RESULT OUT OF REFERENCE UNITS RANGE LAB IP 2.2-4.6 mg/dL Inorg Phosphate 4.1 Performed By: #### HEMOGC, CA, CHM7, IPB, MGO #### [facility] [address] [place] [address] [place] [address] 20042 MAGNESIUM Collected: 06/21/2018 Status: F Source: [facility] 2:36 AM [facility] REPOSITORY TYPE CODE TESTS RESULT OUT OF REFERENCE UNITS RANGE LAB MG 1.6-2.6 mg/dL Magnesium 2.2 Performed By: #### HEMOGC, CA, CHM7, IPB, MGO #### [facility] [address] [place] [address] [place] [address] SODIUM Collected: 06/20/2018 Status: F Source: [facility] 6:45 PM [facility] REPOSITORY TYPE CODE TESTS RESULT OUT OF REFERENCE UNITS RANGE LAB NA 133-143 mmol/L Sodium 136 Performed By: #### PATI, URICB, IFLC, SPEB, SIMFXB #### [facility] [address] [place] [id number] [place] [address] [place] [address] [phone] URIC ACID Collected: 06/20/2018 Status: F Source: [facility] 6:45 PM [facility] REPOSITORY TYPE CODE TESTS RESULT OUT OF RANGE REFERENCE UNITS LAB URIC 2.8-6.0 mg/dL High Uric Acid 8.2 Performed By: #### PATI, URICB, IFLC, SPEB, SIMFXB #### [facility] [address] [place] [address] [place] [address] [id number] SERUM FREE LIGHT Collected: 06/20/2018 Status: F Source: [facility] 6:45 PM [facility] REPOSITORY TYPE CODE TESTS RESULT OUT OF REFERENCE UNITS RANGE LAB KFLC 3.9-26.0 mg/L Denair Free 20.5 Light Chains LAB LFLC 6.4-22.1 mg/L Lambda Free 18.0 Light Chains LAB KLR 0.51-1.72 Denair/Lambda 1.14 Ratio Performed By: #### PATI, URICB, IFLC, SPEB, SIMFXB #### [facility] [address] [place] [address] [place] [address] PROTEIN ELECTROPHORESIS Collected: 06/20/2018 Status: F Source: [facility] WITH REFLEX 6:45 PM [facility] REPOSITORY TYPE CODE TESTS RESULT OUT OF REFERENCE UNITS RANGE LAB TPE 6.4-8.3 g/dL Total Protein 5.8 Low LAB ALBNC 3.5-5.0 g/dL ALBUMIN 3.6 LAB ALPH1C 0.2-0.4 g/dL ALPHA 1 0.3 LAB ALPH2C 0.5-1.0 g/dL ALPHA 2 0.7 LAB BETAC 0.5-1.1 g/dL BETA 0.7 LAB GAMC 0.6-1.5 g/dL Gamma 0.5 Low LAB ISPE SPE Possible INTERPRETATION monoclonal present, see immunofixation report. LAB RB4 REVIEWED BY: Billy Baer MD Performed By: #### PATI, URICB, IFLC, SPEB, SIMFXB #### [facility] [address] [place] [address] [place] [address] *IMMUNOFIXATION,*SERUM Collected: Status: F Source: [facility] 06/20/2018 6:45 PM [facility] REPOSITORY TYPE CODE TESTS RESULT OUT OF REFERENCE UNITS RANGE LAB MPRO 0 mg/dL *SERUM NONE DETECTED *MONOCLONAL *PROTEIN Performed By: #### PATI, URICB, IFLC, SPEB, SIMFXB #### [facility] [address] [place] [address] [address] [place] [address] *POC GLUCOSE BATTERY Collected: 06/20/2018 Status: F Source: [facility] 4:53 PM [facility] REPOSITORY TYPE CODE TESTS RESULT OUT OF REFERENCE UNITS RANGE LAB GLUP 70-99 mg/dL High Glucose (poc 108 device) Result Comment: No BRAVE per RN: PATIENT TYPE LAB PCSTYP *POC Capillary SAMPLE TYPE Blood *POC GLUCOSE BATTERY Collected: 06/20/2018 Status: F Source: [facility] 12:48 PM [facility] REPOSITORY TYPE CODE TESTS RESULT OUT OF REFERENCE UNITS RANGE LAB GLUP 70-99 mg/dL High Glucose (poc 103 device) Result Comment: No BRAVE per RN: PATIENT TYPE LAB PCSTYP *POC Capillary SAMPLE TYPE Blood OSMOLALITY Collected: 06/20/2018 Status: F Source: [facility] 9:26 AM [facility] REPOSITORY TYPE CODE TESTS RESULT OUT OF REFERENCE UNITS RANGE LAB OSMO 278-305 mOsm/kg Osmolality 298 Performed By: #### OSMO, PATI #### [facility] [address] [place] [address] [address] [place] [address] SODIUM Collected: 06/20/2018 Status: F Source: [facility] 9:26 AM [facility] REPOSITORY TYPE CODE TESTS RESULT OUT OF REFERENCE UNITS RANGE LAB NA 133-143 mmol/L Sodium 136 Performed By: #### OSMO, PATI #### [facility] [address] [place] [address] [address] [place] [address] URINALYSIS REFLEX Collected: 06/20/2018 Status: F Source: [facility] CULTURE 8:43 AM [facility] REPOSITORY TYPE CODE TESTS RESULT OUT OF RANGE REFERENCE UNITS 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 Urine Clear LAB SPGR 1.001-1.035 Specific [place] urine <=1.005 LAB UGL Negative mg/dL Glucose Urine Negative LAB UKET Negative Ketones Urine Negative LAB UBLD Negative Blood Urine Negative LAB UPH 5.0-7.0 pH Urine 6.0 LAB UPR Negative mg/dL Protein Urine Negative LAB UNTR Negative Nitrites Urine Negative LAB ULEU Negative Leukocyte Abnormal Esterase Trace LAB COLR Yellow Color Yellow LAB UURO <2.0 EU/dL Urobilinogen 0.2 urine LAB UWBC 0-5 /HPF WBC Urine 0-5 LAB URBC 0-2 /HPF RBC Urine 0-2 LAB BACT Absent Bacteria Absent LAB UCOM COMMENT URINE None LAB EPIS /HPF Squamous Epithelial None Performed By: #### URIN1 #### [facility] [address] [place] [address] 46875 [facility] [address] [place] [address] 53564 SODIUM Collected: 06/20/2018 Status: F Source: [facility] 7:44 AM [facility] REPOSITORY TYPE CODE TESTS RESULT OUT OF REFERENCE UNITS RANGE LAB NA 133-143 mmol/L Test Sodium cancelled by physician Result Comment: Called to ALEXEY GALVAN AT 09 ON Performed By: #### PATI, OSMO #### [facility] [address] [place] [address] 91756 [facility] [address] [place] [address] 01836 OSMOLALITY Collected: 06/20/2018 Status: F Source: [facility] 7:44 AM [facility] REPOSITORY TYPE CODE TESTS RESULT OUT OF REFERENCE UNITS RANGE LAB OSMO 278-305 mOsm/kg Test Osmolality cancelled by physician Result Comment: Called to ALEXEY GALVAN AT 09 ON Performed By: #### PATI, OSMO #### [facility] [address] [place] [address] 34295 [facility] [address] [place] [address] 32544 HEMOGRAM (CBC AND Collected: 06/20/2018 Status: F Source: [facility] PLATELET) 3:57 AM [facility] REPOSITORY TYPE CODE TESTS RESULT OUT OF REFERENCE UNITS RANGE LAB WBC 3.98-10.04 K/uL WBC Count 7.36 LAB RBC 3.93-5.22 M/uL Low RBC Count 3.48 LAB HGB 11.2-15.7 g/dL Low Hemoglobin 10.5 LAB HCT 34.1-44.9 % Low Hematocrit 32.1 LAB MCV 79.4-94.8 fL Mean Cell Volume 92.2 LAB MCH 25.6-32.2 pg Mean Cell Hgb 30.2 LAB MCHC 32.2-35.5 g/dL Mean Cell Hgb Conc 32.7 LAB RDW 11.7-14.4 % RBC Distribution 12.8 LAB PLT 182-369 K/uL Platelet Count 262 LAB MPV 9.4-12.3 fL Low Mean Platelet Volume 8.3 LAB NRBC 0.0-0.2 /100 WBC NUCLEATED RBC 0.0 Performed By: #### HEMOGC, CA, CHM7, HFP, IPB, MGO, OSMO #### [facility] [address] [place] [address] 53408 [facility] [address] [place] [address] 92395 CALCIUM Collected: 06/20/2018 Status: F Source: [facility] 3:57 AM [facility] REPOSITORY TYPE CODE TESTS RESULT OUT OF REFERENCE UNITS RANGE LAB CA 8.6-10.5 mg/dL Calcium 9.9 Performed By: #### HEMOGC, CA, CHM7, HFP, IPB, MGO, OSMO #### [facility] [address] [place] [address] 16402 [facility] [address] [place] [address] 15965 CHEM 7 Collected: 06/20/2018 Status: F Source: [facility] 3:57 AM [facility] REPOSITORY TYPE CODE TESTS RESULT OUT OF REFERENCE UNITS RANGE LAB BUN 7-22 mg/dL BUN High 30 LAB NA 133-143 mmol/L Sodium 133 LAB K 3.5-5.0 mmol/L Potassium 4.7 LAB CL 98-108 mmol/L Chloride 104 LAB CO2 22-30 mmol/L Low Carbon Dioxide 20 LAB GLUC 70-99 mg/dL Glucose High 100 LAB CREA 0.50-1.20 mg/dL High Creatinine 1.96 LAB GAP 7-17 mmol/L Anion Gap 14 LAB BC BUN/CREA Ratio 15 LAB OSMC 278-305 mOsm/kg Osmolality 287 (Calc) LAB GFR >60 mL/min/1.73 Low sqM Est GFR,non 25 [place] LAB GFRA >60 mL/min/1.73 Low sqM Est GFR, 31 Performed By: #### HEMOGC, CA, CHM7, HFP, IPB, MGO, OSMO #### [facility] [address] [place] [id number] [place] [address] [address] [place] [address] [phone] HEPATIC FUNCTION Collected: 06/20/2018 Status: F Source: [facility] PANEL 3:57 AM [facility] REPOSITORY TYPE CODE TESTS RESULT OUT OF REFERENCE UNITS RANGE LAB ALB 3.5-5.0 g/dL Albumin 3.7 LAB BILD <0.3 mg/dL Bilirubin Direct 0.0 LAB BILT <1.5 mg/dL Bilirubin Total 0.2 LAB ALP 32-126 U/L Alkaline Phosphatase 66 LAB ALT 9-48 U/L ALT 18 LAB AST 14-40 U/L AST 14 LAB TP 6.4-8.3 g/dL Low Total Protein 6.0 Performed By: #### HEMOGC, CA, CHM7, HFP, IPB, MGO, OSMO #### [facility] [address] [place] [address] [place] [address] INORGANIC PHOSPHATE Collected: 06/20/2018 Status: F Source: [facility] 3:57 AM [facility] REPOSITORY TYPE CODE TESTS RESULT OUT OF REFERENCE UNITS RANGE LAB IP 2.2-4.6 mg/dL Inorg Phosphate 3.5 Performed By: #### HEMOGC, CA, CHM7, HFP, IPB, MGO, OSMO #### [facility] [address] [place] [address] [address] [place] [address] MAGNESIUM Collected: 06/20/2018 Status: F Source: [facility] 3:57 AM [facility] REPOSITORY TYPE CODE TESTS RESULT OUT OF REFERENCE UNITS RANGE LAB MG 1.6-2.6 mg/dL Magnesium 2.2 Performed By: #### HEMOGC, CA, CHM7, HFP, IPB, MGO, OSMO #### [facility] [address] [place] [address] [address] [place] [address] 37924 OSMOLALITY Collected: 06/20/2018 Status: F Source: [facility] 3:57 AM [facility] REPOSITORY TYPE CODE TESTS RESULT OUT OF REFERENCE UNITS RANGE LAB OSMO 278-305 mOsm/kg Osmolality 285 Performed By: #### HEMOGC, CA, CHM7, HFP, IPB, MGO, OSMO #### [facility] [address] [place] [address] [address] [place] [address] OSMOLALITY, URINE - Collected: 06/20/2018 Status: F Source: [facility] RANDOM 3:57 AM [facility] REPOSITORY TYPE CODE TESTS RESULT OUT OF REFERENCE UNITS RANGE LAB UOSM 300-900 mOsm/kg Low Urine Osmolality 154 Performed By: #### UOSMR, ULYTR #### [facility] [address] [place] [address] 61793 [facility] [address] [place] [address] 72001 LYTES (NA,K,CL), URINE Collected: 06/20/2018 Status: F Source: [facility] - RANDOM 3:57 AM [facility] REPOSITORY TYPE CODE TESTS RESULT OUT OF REFERENCE UNITS RANGE LAB NAU1 mmol/L URINE SODIUM 14 Result Comment: The reference range has not been established for random urine specimens. The test result should be integrated into the clinical context for interpretation. LAB KU1 mmol/L URINE POTASSIUM 12.5 Result Comment: The reference range has not been established for random urine specimens. The test result should be integrated into the clinical context for interpretation. LAB CLU1 mmol/L URINE CHLORIDE 18 Result Comment: The reference range has not been established for random urine specimens. The test result should be integrated into the clinical context for interpretation. Performed By: #### UOSMR, ULYTR #### [facility] [address] [place] [address] [address] [place] [address] 13557 SODIUM Collected: 06/19/2018 Status: F Source: [facility] 11:50 PM [facility] REPOSITORY TYPE CODE TESTS RESULT OUT OF REFERENCE UNITS RANGE LAB NA 133-143 mmol/L Low Sodium 131 Performed By: #### PATI, OSMO #### [facility] [address] [place] [address] [phone] [facility] [address] [place] [address] 25760 OSMOLALITY Collected: 06/19/2018 Status: F Source: [facility] 11:50 PM [facility] REPOSITORY TYPE CODE TESTS RESULT OUT OF REFERENCE UNITS RANGE LAB OSMO 278-305 mOsm/kg Osmolality 285 Performed By: #### PATI, OSMO #### [facility] [address] [place] [address] 30950 [facility] [address] [place] [address] 73842 SODIUM Collected: 06/19/2018 Status: F Source: [facility] 7:54 PM [facility] REPOSITORY TYPE CODE TESTS RESULT OUT OF REFERENCE UNITS RANGE LAB NA 133-143 mmol/L Sodium 134 Performed By: #### PATI, OSMO #### [facility] [address] [place] [address] 09775 [facility] [address] [place] [address] 63602 OSMOLALITY Collected: 06/19/2018 Status: F Source: [facility] 7:54 PM [facility] REPOSITORY TYPE CODE TESTS RESULT OUT OF REFERENCE UNITS RANGE LAB OSMO 278-305 mOsm/kg Osmolality 287 Performed By: #### PATI, OSMO #### [facility] [address] [place] [address] [address] [place] [address] 55812 SODIUM Collected: 06/19/2018 Status: F Source: [facility] 3:38 PM [facility] REPOSITORY TYPE CODE TESTS RESULT OUT OF REFERENCE UNITS RANGE LAB NA 133-143 mmol/L Sodium 133 Performed By: #### PATI, OSMO #### [facility] [address] [place] [address] 57238 [facility] [address] [place] [address] 71207 OSMOLALITY Collected: 06/19/2018 Status: F Source: [facility] 3:38 PM [facility] REPOSITORY TYPE CODE TESTS RESULT OUT OF REFERENCE UNITS RANGE LAB OSMO 278-305 mOsm/kg Osmolality 285 Performed By: #### PATI, OSMO #### [facility] [address] [place] [address] 14028 [facility] [address] [place] [address] 68233 SODIUM Collected: 06/19/2018 Status: F Source: [facility] 11:21 AM [facility] REPOSITORY TYPE CODE TESTS RESULT OUT OF REFERENCE UNITS RANGE LAB NA 133-143 mmol/L Sodium 134 Performed By: #### PATI, OSMO #### [facility] [address] [place] [address] 56830 [facility] [address] [place] [address] 42786 OSMOLALITY Collected: 06/19/2018 Status: F Source: [facility] 11:21 [facility] REPOSITORY TYPE CODE TESTS RESULT OUT OF REFERENCE UNITS RANGE LAB OSMO 278-305 mOsm/kg Osmolality 282 Performed By: #### PATI, OSMO #### [facility] [address] [place] [address] 41385 [facility] [address] [place] [address] 73717 SODIUM Collected: 06/19/2018 Status: F Source: [facility] 8:34 [facility] REPOSITORY TYPE CODE TESTS RESULT OUT OF REFERENCE UNITS RANGE LAB NA 133-143 mmol/L Low Sodium 131 Performed By: #### PATI, OSMO #### [facility] [address] [place] [address] 83265 [facility] [address] [place] [address] 42242 OSMOLALITY Collected: 06/19/2018 Status: F Source: [facility] 8:34 [facility] REPOSITORY TYPE CODE TESTS RESULT OUT OF REFERENCE UNITS RANGE LAB OSMO 278-305 mOsm/kg Osmolality 285 Performed By: #### PATI, OSMO #### [facility] [address] [place] [id number] [place] [address] [address] [place] [address] [id number] HEMOGRAM (CBC AND Collected: 06/19/2018 Status: F Source: [facility] PLATELET) 3:54 [facility] REPOSITORY TYPE CODE TESTS RESULT OUT OF REFERENCE UNITS RANGE LAB WBC 3.98-10.04 K/uL WBC Count 7.81 LAB RBC 3.93-5.22 M/uL Low RBC Count 3.80 LAB HGB 11.2-15.7 g/dL Hemoglobin 11.5 LAB HCT 34.1-44.9 % Hematocrit 34.5 LAB MCV 79.4-94.8 fL Mean Cell Volume 90.8 LAB MCH 25.6-32.2 pg Mean Cell Hgb 30.3 LAB MCHC 32.2-35.5 g/dL Mean Cell Hgb Conc 33.3 LAB RDW 11.7-14.4 % RBC Distribution 12.5 LAB PLT 182-369 K/uL Platelet Count 263 LAB MPV 9.4-12.3 fL Low Mean Platelet Volume 8.3 LAB NRBC 0.0-0.2 /100 WBC NUCLEATED RBC 0.0 Performed By: #### HEMOGC, CHM7, CA, IPB, MGO, OSMO #### [facility] [address] [place] [address] [facility] [address] [place] [address] CHEM 7 Collected: 06/19/2018 Status: F Source: [facility] 3:54 AM [facility] REPOSITORY TYPE CODE TESTS RESULT OUT OF REFERENCE UNITS RANGE LAB BUN 7-22 mg/dL BUN 22 LAB NA 133-143 mmol/L Low Sodium 130 LAB K 3.5-5.0 mmol/L Potassium 4.2 LAB CL 98-108 mmol/L Chloride 101 LAB CO2 22-30 mmol/L Low Carbon Dioxide 18 LAB GLUC 70-99 mg/dL Glucose 97 LAB CREA 0.50-1.20 mg/dL High Creatinine 1.36 LAB GAP 7-17 mmol/L Anion Gap 15 LAB BC BUN/CREA Ratio 16 LAB [facility] 278-305 mOsm/kg Osmolality 278 (Calc) LAB GFR >60 mL/min/1.73 Low sqM Est GFR,non 39 [place] LAB GFRA >60 mL/min/1.73 Low sqM Est GFR, 47 Performed By: #### HEMOGC, CHM7, CA, IPB, MGO, OSMO #### [facility] [address] [place] [address] [address] [place] [address] CALCIUM Collected: 06/19/2018 Status: F Source: [facility] 3:54 AM [facility] REPOSITORY TYPE CODE TESTS RESULT OUT OF REFERENCE UNITS RANGE LAB CA 8.6-10.5 mg/dL Calcium 9.5 Performed By: #### HEMOGC, CHM7, CA, IPB, MGO, OSMO #### [facility] [address] [place] [address] [address] [place] [address] INORGANIC PHOSPHATE Collected: 06/19/2018 Status: F Source: [facility] 3:54 AM [facility] REPOSITORY TYPE CODE TESTS RESULT OUT OF REFERENCE UNITS RANGE LAB IP 2.2-4.6 mg/dL Inorg Phosphate 2.3 Performed By: #### HEMOGC, CHM7, CA, IPB, MGO, OSMO #### [facility] [address] [place] [id number] [place] [address] [address] [place] [address] MAGNESIUM Collected: 06/19/2018 Status: F Source: [facility] 3:54 AM [facility] REPOSITORY TYPE CODE TESTS RESULT OUT OF REFERENCE UNITS RANGE LAB MG 1.6-2.6 mg/dL Magnesium 2.1 Performed By: #### HEMOGC, CHM7, CA, IPB, MGO, OSMO #### [facility] [address] [place] [address] [address] [place] [address] OSMOLALITY Collected: 06/19/2018 Status: F Source: [facility] 3:54 AM [facility] REPOSITORY TYPE CODE TESTS RESULT OUT OF REFERENCE UNITS RANGE LAB OSMO 278-305 mOsm/kg Low Osmolality 275 Performed By: #### HEMOGC, CHM7, CA, IPB, MGO, OSMO #### [facility] [address] [place] [address] [address] [place] [address] OSMOLALITY, URINE - Collected: 06/19/2018 Status: F Source: [facility] 3:54 AM [facility] REPOSITORY TYPE CODE TESTS RESULT OUT OF REFERENCE UNITS RANGE LAB UOSM 300-900 mOsm/kg Low Urine Osmolality 98 Performed By: #### UOSMR, ULYTR #### [facility] [address] [place] [address] [address] [place] [address] LYTES (NA,K,CL), URINE Collected: 06/19/2018 Status: F Source: [facility] 3:54 AM [facility] REPOSITORY TYPE CODE TESTS RESULT OUT OF REFERENCE UNITS RANGE LAB NAU1 mmol/L URINE SODIUM 12 Result Comment: The reference range has not been established for random urine specimens. The test result should be integrated into the clinical context for interpretation. LAB KU1 mmol/L URINE POTASSIUM 6.0 Result Comment: The reference range has not been established for random urine specimens. The test result should be integrated into the clinical context for interpretation. LAB CLU1 mmol/L URINE CHLORIDE <15 Result Comment: The reference range has not been established for random urine specimens. The test result should be integrated into the clinical context for interpretation. Performed By: #### UOSMR, ULYTR #### [facility] [address] [place] [id number] [place] [address] [address] [place] [address] SODIUM Collected: 06/18/2018 Status: F Source: [facility] 11:41 PM [facility] REPOSITORY TYPE CODE TESTS RESULT OUT OF REFERENCE UNITS RANGE LAB NA 133-143 mmol/L Low Sodium 128 Performed By: #### PATI, OSMO #### [facility] [address] [place] [address] [address] [place] [address] OSMOLALITY Collected: 06/18/2018 Status: F Source: [facility] 11:41 PM [facility] REPOSITORY TYPE CODE TESTS RESULT OUT OF REFERENCE UNITS RANGE LAB OSMO 278-305 mOsm/kg Low Osmolality 273 Performed By: #### PATI, OSMO #### [facility] [address] [place] [address] [address] [place] [address] OSMOLALITY Collected: 06/18/2018 Status: F Source: [facility] 7:45 PM [facility] REPOSITORY TYPE CODE TESTS RESULT OUT OF REFERENCE UNITS RANGE LAB OSMO 278-305 mOsm/kg Low Osmolality 270 Performed By: #### OSMO, D25OH, PATI #### [facility] [address] [place] [address] [address] [place] [address] 25-OH VITAMIN D Collected: 06/18/2018 Status: F Source: [facility] TOTAL 7:45 PM [facility] REPOSITORY TYPE CODE TESTS RESULT OUT OF REFERENCE UNITS RANGE LAB D25OH 30.0-100.0 ng/mL 25-OH Vitamin 44.7 D Total Result Comment: <10 Deficiency 10-29 Insufficiency 30-100 Optimal Level >100 Possible Toxicity Performed By: #### OSMO, D25OH, PATI #### [facility] [address] [place] [address] [address] [place] [address] SODIUM Collected: 06/18/2018 Status: F Source: [facility] 7:45 PM [facility] REPOSITORY TYPE CODE TESTS RESULT OUT OF REFERENCE UNITS RANGE LAB NA 133-143 mmol/L Low Sodium 126 Performed By: #### OSMO, D25OH, PATI #### [facility] [address] [place] [address] [address] [place] [address] OSMOLALITY Collected: 06/18/2018 Status: F Source: [facility] 4:08 PM [facility] REPOSITORY TYPE CODE TESTS RESULT OUT OF REFERENCE UNITS RANGE LAB OSMO 278-305 mOsm/kg Low Osmolality 265 Performed By: #### OSMO, PATI #### [facility] [address] [place] [id number] [place] [address] [address] [place] [address] SODIUM Collected: 06/18/2018 Status: F Source: [facility] 4:08 PM [facility] REPOSITORY TYPE CODE TESTS RESULT OUT OF REFERENCE UNITS RANGE LAB NA 133-143 mmol/L Low Sodium 126 Performed By: #### OSMO, PATI #### [facility] [address] [place] [address] [address] [place] [address] OSMOLALITY Collected: 06/18/2018 Status: F Source: [facility] 11:57 AM [facility] REPOSITORY TYPE CODE TESTS RESULT OUT OF REFERENCE UNITS RANGE LAB OSMO 278-305 mOsm/kg Low Osmolality 262 Performed By: #### OSMO, PATI #### [facility] [address] [place] [id number] [place] [address] [address] [place] [address] SODIUM Collected: 06/18/2018 Status: F Source: [facility] 11:57 AM [facility] REPOSITORY TYPE CODE TESTS RESULT OUT OF REFERENCE UNITS RANGE LAB NA 133-143 mmol/L Low alert Sodium 124 Result Comment: Critical NA result called to and read back by: ALEXEY MORRIS at: 06/18/2018 13:32:01 by : [id number] Repeated and verified Performed By: #### OSMO, PATI #### [facility] [address] [place] [address] [facility] [address] [place] [address] SODIUM Collected: 06/18/2018 Status: F Source: [facility] 10:55 AM [facility] REPOSITORY TYPE CODE TESTS RESULT OUT OF REFERENCE UNITS RANGE LAB NA 133-143 mmol/L Low alert Sodium 123 Result Comment: Critical NA result called to and read back by: ALEXEY MORRIS at: 06/18/2018 12:32:16 by : [id number] Repeated and verified CONSISTENT WITH PREVIOUS RESULTS Performed By: #### PATI #### [facility] [address] [place] [address] [address] OSMOLALITY Collected: 06/18/2018 Status: F Source: [facility] 8:56 AM [facility] REPOSITORY TYPE CODE TESTS RESULT OUT OF REFERENCE UNITS RANGE LAB OSMO 278-305 mOsm/kg Low Osmolality 263 Performed By: #### OSMO, PATI #### [facility] [address] [place] [id number] [place] [address] [address] SODIUM Collected: 06/18/2018 Status: F Source: [facility] 8:56 AM [facility] REPOSITORY TYPE CODE TESTS RESULT OUT OF REFERENCE UNITS RANGE LAB NA 133-143 mmol/L Low alert Sodium 121 Result Comment: Critical NA result called to and read back by: ALEXEY MELO at: 06/18/2018 10:31:21 by : [id number] Repeated and verified Performed By: #### OSMO, PATI #### [facility] [address] [place] [address] [facility] [address] [address] SODIUM Collected: 06/18/2018 Status: F Source: [facility] 5:50 AM [facility] REPOSITORY TYPE CODE TESTS RESULT OUT OF REFERENCE UNITS RANGE LAB NA 133-143 mmol/L Low alert Sodium 123 Result Comment: Critical NA result called to and read back by: ALEXEY MELO at: 06/18/2018 07:32:10 by : [id number] Repeated and verified Performed By: #### PATI #### [facility] [address] [place] [address] [facility] [address] [place] [address] HEMOGRAM (CBC AND Collected: 06/18/2018 Status: F Source: [facility]) 3:50 AM [facility] REPOSITORY TYPE CODE TESTS RESULT OUT OF REFERENCE UNITS RANGE LAB WBC 3.98-10.04 K/uL WBC Count 6.78 LAB RBC 3.93-5.22 M/uL Low RBC Count 3.36 LAB HGB 11.2-15.7 g/dL Low Hemoglobin 10.4 LAB HCT 34.1-44.9 % Low Hematocrit 29.4 LAB MCV 79.4-94.8 fL Mean Cell Volume 87.5 LAB MCH 25.6-32.2 pg Mean Cell Hgb 31.0 LAB MCHC 32.2-35.5 g/dL Mean Cell Hgb Conc 35.4 LAB RDW 11.7-14.4 % RBC Distribution 12.3 LAB PLT 182-369 K/uL Platelet Count 216 LAB MPV 9.4-12.3 fL Low Mean Platelet Volume 8.3 LAB NRBC 0.0-0.2 /100 WBC NUCLEATED RBC 0.0 Performed By: #### HEMOGC, OSMO, CHM7, CA, IPB, MGO, IRBC #### [facility] [address] [place] [address] [address] [place] [address] OSMOLALITY Collected: 06/18/2018 Status: F Source: [facility] 3:50 AM [facility] REPOSITORY TYPE CODE TESTS RESULT OUT OF REFERENCE UNITS RANGE LAB OSMO 278-305 mOsm/kg Low Osmolality 259 Performed By: #### HEMOGC, OSMO, CHM7, CA, IPB, MGO, IRBC #### [facility] [address] [place] [id number] [place] [address] [address] [place] [address] CHEM 7 Collected: 06/18/2018 Status: F Source: [facility] 3:50 AM [facility] REPOSITORY TYPE CODE TESTS RESULT OUT OF REFERENCE UNITS RANGE LAB BUN 7-22 mg/dL BUN 21 LAB NA 133-143 mmol/L Low alert Sodium 121 Result Comment: Critical NA result called to and read back by: ALEXEY ANAND at: 06/18/2018 05:40:35 by : [id number] LAB K 3.5-5.0 mmol/L Potassium 3.9 LAB CL 98-108 mmol/L Low Chloride 94 LAB CO2 22-30 mmol/L Low Carbon Dioxide 19 LAB GLUC 70-99 mg/dL Glucose High 106 LAB CREA 0.50-1.20 mg/dL Creatinine 1.19 LAB GAP 7-17 mmol/L Anion Gap 12 LAB BC BUN/CREA Ratio 18 LAB [facility] 278-305 mOsm/kg Low Osmolality (Calc) 261 LAB GFR >60 mL/min/1.73s Low qM Est GFR,non 45 LAB GFRA >60 mL/min/1.73s Low qM Est GFR, 54 Performed By: #### HEMOGC, OSMO, CHM7, CA, IPB, MGO, IRBC #### [place] [address] CALCIUM Collected: 06/18/2018 Status: F Source: [facility] 3:50 AM [facility] REPOSITORY TYPE CODE TESTS RESULT OUT OF REFERENCE UNITS RANGE LAB CA 8.6-10.5 mg/dL Calcium 9.0 Performed By: #### HEMOGC, OSMO, CHM7, CA, IPB, MGO, IRBC #### [facility] [address] [place] [address] INORGANIC PHOSPHATE Collected: 06/18/2018 Status: F Source: [facility] 3:50 AM [facility] REPOSITORY TYPE CODE TESTS RESULT OUT OF REFERENCE UNITS RANGE LAB IP 2.2-4.6 mg/dL Inorg Phosphate 2.6 Performed By: #### HEMOGC, OSMO, CHM7, CA, IPB, MGO, IRBC #### [place] [address] MAGNESIUM Collected: 06/18/2018 Status: F Source: [facility] 3:50 AM [facility] REPOSITORY TYPE CODE TESTS RESULT OUT OF REFERENCE UNITS RANGE LAB MG 1.6-2.6 mg/dL Magnesium 2.0 Performed By: #### HEMOGC, OSMO, CHM7, CA, IPB, MGO, IRBC #### [facility] [address] [place] [id number] [place] [address] [address] [place] [address] IRON*TIBC (TRANSFERRIN) Collected: 06/18/2018 Status: F Source: [facility] 3:50 AM [facility] REPOSITORY TYPE CODE TESTS RESULT OUT OF REFERENCE UNITS RANGE LAB IRON 40-174 mcg/dL Iron 42 LAB TIBC 298-596 mcg/dL Total Iron Binding Capacity 340 LAB IRONS 20-55 % Low *Iron*Saturation 12 LAB BENAVIDES 200-400 mg/dL Transferrin 228 Performed By: #### HEMOGC, OSMO, CHM7, CA, IPB, MGO, IRBC #### [facility] [address] [place] [address] [address] [place] [address] OSMOLALITY, URINE - Collected: 06/18/2018 Status: F Source: [facility] 3:50 AM [facility] REPOSITORY TYPE CODE TESTS RESULT OUT OF REFERENCE UNITS RANGE LAB UOSM 300-900 mOsm/kg Low Urine Osmolality 96 Performed By: #### UOSMR, ULYTR #### [facility] [address] [place] [address] [address] [place] [address] LYTES (NA,K,CL), URINE Collected: 06/18/2018 Status: F Source: [facility] 3:50 AM [facility] REPOSITORY TYPE CODE TESTS RESULT OUT OF REFERENCE UNITS RANGE LAB NAU1 mmol/L URINE SODIUM 15 Result Comment: The reference range has not been established for random urine specimens. The test result should be integrated into the clinical context for interpretation. LAB KU1 mmol/L URINE POTASSIUM 6.2 Result Comment: The reference range has not been established for random urine specimens. The test result should be integrated into the clinical context for interpretation. LAB CLU1 mmol/L URINE CHLORIDE 15 Result Comment: The reference range has not been established for random urine specimens. The test result should be integrated into the clinical context for interpretation. Performed By: #### UOSMR, ULYTR #### [facility] [address] [place] [address] [address] FERRITIN Collected: 06/18/2018 Status: F Source: [facility] 3:50 AM [facility] REPOSITORY TYPE CODE TESTS RESULT OUT OF RANGE REFERENCE UNITS LAB FERI 10-291 ng/mL *Ferritin 175 Performed By: #### FERIB, B12B, FOLSB #### [facility] [address] [place] [address] VITAMIN B12 Collected: 06/18/2018 Status: F Source: [facility] 3:50 AM [facility] REPOSITORY TYPE CODE TESTS RESULT OUT OF RANGE REFERENCE UNITS LAB B12 211-911 pg/mL 546 *Vitamin*B12 Performed By: #### FERIB, B12B, FOLSB #### [facility] [address] [address] FOLATE, SERUM Collected: 06/18/2018 Status: F Source: [facility] 3:50 AM [facility] REPOSITORY TYPE CODE TESTS RESULT OUT OF RANGE REFERENCE UNITS LAB FOLS >5.38 ng/mL 20.70 *Folate*Seru m Performed By: #### FERIB, B12B, FOLSB #### [facility] [address] [address] SODIUM Collected: 06/18/2018 Status: F Source: [facility] 2:17 AM [facility] REPOSITORY TYPE CODE TESTS RESULT OUT OF REFERENCE UNITS RANGE LAB NA 133-143 mmol/L Low alert Sodium 119 Result Comment: Critical NA result called to and read back by: ALEXEY ANAND at: 06/18/2018 03:25:53 by : [id number] Performed By: #### PATI #### [facility] [address] [place] [address] OSMOLALITY Collected: 06/17/2018 Status: F Source: [facility] 11:41 PM [facility] REPOSITORY TYPE CODE TESTS RESULT OUT OF REFERENCE UNITS RANGE LAB OSMO 278-305 mOsm/kg Low Osmolality 257 Performed By: #### OSMO, PATI #### [facility] [address] [place] [phone] [place] [address] [address] [place] [address] SODIUM Collected: 06/17/2018 Status: F Source: [facility] 11:41 PM [facility] REPOSITORY TYPE CODE TESTS RESULT OUT OF REFERENCE UNITS RANGE LAB NA 133-143 mmol/L Low alert Sodium 117 Result Comment: Critical NA result called to and read back by: ALEXEY ROSARIO at: 06/18/2018 01:06:02 by : [id number] Performed By: #### OSMO, PATI #### [facility] [address] [place] [address] [address] [place] [address] OSMOLALITY Collected: 06/17/2018 Status: F Source: [facility] 8:30 PM [facility] REPOSITORY TYPE CODE TESTS RESULT OUT OF REFERENCE UNITS RANGE LAB OSMO 278-305 mOsm/kg Low Osmolality 258 Performed By: #### OSMO, KKO, IPB, PATI #### [facility] [address] [place] [phone] [place] [address] [address] [place] [address] POTASSIUM Collected: 06/17/2018 Status: F Source: [facility] 8:30 PM [facility] REPOSITORY TYPE CODE TESTS RESULT OUT OF REFERENCE UNITS RANGE LAB K 3.5-5.0 mmol/L Potassium 4.5 Performed By: #### OSMO, KKO, IPB, PATI #### [facility] [address] [place] [address] [address] [place] [address] INORGANIC PHOSPHATE Collected: 06/17/2018 Status: F Source: [facility] 8:30 PM [facility] REPOSITORY TYPE CODE TESTS RESULT OUT OF REFERENCE UNITS RANGE LAB IP 2.2-4.6 mg/dL Inorg Phosphate 4.3 Performed By: #### OSMO, KKO, IPB, PATI #### [facility] [address] [place] [address] [place] [address] [address] SODIUM Collected: 06/17/2018 Status: F Source: [facility] 8:30 PM [facility] REPOSITORY TYPE CODE TESTS RESULT OUT OF REFERENCE UNITS RANGE LAB NA 133-143 mmol/L Low alert Sodium 119 Result Comment: Critical NA result called to and read back by: ALEXEY MORALES at: 06/17/2018 22:02:07 by : [id number] Performed By: #### OSMO, KKO, IPB, PATI #### [facility] [address] [place] [address] [address] SODIUM Collected: 06/17/2018 Status: F Source: [facility] 5:50 PM [facility] REPOSITORY TYPE CODE TESTS RESULT OUT OF REFERENCE UNITS RANGE LAB NA 133-143 mmol/L Low alert Sodium 120 Result Comment: Critical NA result called to and read back by: ALEXEY MORALES at: 06/17/2018 19:42:09 by : [id number] Performed By: #### PATI #### [facility] [address] [place] [address] [address] OSMOLALITY Collected: 06/17/2018 Status: F Source: [facility] 4:06 PM [facility] REPOSITORY TYPE CODE TESTS RESULT OUT OF REFERENCE UNITS RANGE LAB OSMO 278-305 mOsm/kg Low Osmolality 260 Performed By: #### OSMO, PATI #### [facility] [address] [place] [id number] [place] [address] [address] SODIUM Collected: 06/17/2018 Status: F Source: [facility] 4:06 PM [facility] REPOSITORY TYPE CODE TESTS RESULT OUT OF REFERENCE UNITS RANGE LAB NA 133-143 mmol/L Low alert Sodium 121 Result Comment: Critical NA result called to and read back by: ALEXEY MELO at: 06/17/2018 17:24:06 by : [id number] Performed By: #### OSMO, PATI #### [facility] [phone] [place] [address] [address] SODIUM Collected: 06/17/2018 Status: F Source: [facility] 2:20 PM [facility] REPOSITORY TYPE CODE TESTS RESULT OUT OF REFERENCE UNITS RANGE LAB NA 133-143 mmol/L Low alert Sodium 122 Result Comment: Critical NA result called to and read back by: ALEXEY MELO at: 06/17/2018 15:45:29 by : [id number] Performed By: #### PATI #### [facility] [address] [place] [address] [address] 1,25-DIHYDROXYVITAMIN D Collected: Status: F Source: [facility] 06/17/2018 12:53 PM [facility] REPOSITORY TYPE CODE TESTS RESULT OUT OF RANGE REFERENCE UNITS LAB D125 20-79 pg/mL 70.7 1,25-Dihydro xyvitamin D Performed By: #### D125 #### [facility] [id number] [place] [address] [address] SODIUM Collected: 06/17/2018 Status: F Source: [facility] 12:26 PM [facility] REPOSITORY TYPE CODE TESTS RESULT OUT OF REFERENCE UNITS RANGE LAB NA 133-143 mmol/L Low alert Sodium 124 Result Comment: Critical NA result called to and read back by: ALEXEY JACINTO at: 06/17/2018 14:01:57 by : [id number] Performed By: #### PATI, OSMO #### [facility] [id number] [place] [address] [address] OSMOLALITY Collected: 06/17/2018 Status: F Source: [facility] 12:26 PM [facility] REPOSITORY TYPE CODE TESTS RESULT OUT OF REFERENCE UNITS RANGE LAB OSMO 278-305 mOsm/kg Low Osmolality 266 Performed By: #### PATI, OSMO #### [facility] [address] [place], [place] [address] [address] [place] [address] SODIUM Collected: 06/17/2018 Status: F Source: [facility] 10:10 AM [facility] REPOSITORY TYPE CODE TESTS RESULT OUT OF REFERENCE UNITS RANGE LAB NA 133-143 mmol/L Low Sodium 126 Performed By: #### PATI #### [facility] [address] [place] [address] [facility] [address] [place] [address] OSMOLALITY Collected: 06/17/2018 Status: F Source: [facility] 8:00 AM [facility] REPOSITORY TYPE CODE TESTS RESULT OUT OF REFERENCE UNITS RANGE LAB OSMO 278-305 mOsm/kg Low Osmolality 268 Performed By: #### OSMO, PATI #### [facility] [address] [place] [id number] [place] [address] [address] [place] [address] SODIUM Collected: 06/17/2018 Status: F Source: [facility] 8:00 AM [facility] REPOSITORY TYPE CODE TESTS RESULT OUT OF REFERENCE UNITS RANGE LAB NA 133-143 mmol/L Low Sodium 126 Performed By: #### OSMO, PATI #### [facility] [address] [place] [id number] [place] [address] [address] [place] [address] SODIUM Collected: 06/17/2018 Status: F Source: [facility] 6:27 AM [facility] REPOSITORY TYPE CODE TESTS RESULT OUT OF REFERENCE UNITS RANGE LAB NA 133-143 mmol/L Low Sodium 125 Performed By: #### PATI #### U [facility] [address] [place] [id number] [place] [address] [place] [address] HEMOGRAM (CBC AND Collected: 06/17/2018 Status: F Source: [facility] PLATELET) 3:28 AM [facility] REPOSITORY TYPE CODE TESTS RESULT OUT OF REFERENCE UNITS RANGE LAB WBC 3.98-10.04 K/uL WBC Count 7.04 LAB RBC 3.93-5.22 M/uL Low RBC Count 3.62 LAB HGB 11.2-15.7 g/dL Low Hemoglobin 11.0 LAB HCT 34.1-44.9 % Low Hematocrit 30.7 LAB MCV 79.4-94.8 fL Mean Cell Volume 84.8 LAB MCH 25.6-32.2 pg Mean Cell Hgb 30.4 LAB MCHC 32.2-35.5 g/dL Mean Cell Hgb High Conc 35.8 LAB RDW 11.7-14.4 % RBC Distribution 12.1 LAB PLT 182-369 K/uL Platelet Count 246 LAB MPV 9.4-12.3 fL Low Mean Platelet Volume 8.7 LAB NRBC 0.0-0.2 /100 WBC NUCLEATED RBC 0.0 Performed By: #### HEMOGC, PTPTT, FT4, T3RIA, OSMO, HFP, CHM7, CA, MGO, IPTH #### [facility] [address] [place] [address] [place] [address] PT*PTT Collected: 06/17/2018 Status: F Source: [facility] 3:28 AM [facility] REPOSITORY TYPE CODE TESTS RESULT OUT OF RANGE REFERENCE UNITS LAB PT 11.9-14.2 sec PT 12.7 LAB INR 0.9-1.1 INR 1.0 LAB PTT 24.0-34.3 sec Low PTT 23.7 Result Comment: Specimen integrity checked. Performed By: #### HEMOGC, PTPTT, FT4, T3RIA, OSMO, HFP, CHM7, CA, MGO, IPTH #### [facility] [address] [place] [address] [address] [place] [address] FREE T4 Collected: 06/17/2018 Status: F Source: [facility] 3:28 AM [facility] REPOSITORY TYPE CODE TESTS RESULT OUT OF RANGE REFERENCE UNITS LAB FT4 0.89-1.76 ng/dL Free T4 1.58 Performed By: #### HEMOGC, PTPTT, FT4, T3RIA, OSMO, HFP, CHM7, CA, MGO, IPTH #### [facility] [address] [place] [address] [address] [place] [address] T3 TOTAL (TRIIODOTHYRONINE) Collected: Status: F Source: [facility] 06/17/2018 3:28 AM [facility] REPOSITORY TYPE CODE TESTS RESULT OUT OF RANGE REFERENCE UNITS LAB T3RIA 0.60-1.81 ng/mL T3 Total 1.05 (Triiodothyr onine) Performed By: #### HEMOGC, PTPTT, FT4, T3RIA, OSMO, HFP, CHM7, CA, MGO, IPTH #### [facility] [address] [place] [address] OSMOLALITY Collected: 06/17/2018 Status: F Source: [facility] 3:28 AM [facility] REPOSITORY TYPE CODE TESTS RESULT OUT OF REFERENCE UNITS RANGE LAB OSMO 278-305 mOsm/kg Low Osmolality 264 Performed By: #### HEMOGC, PTPTT, FT4, T3RIA, OSMO, HFP, CHM7, CA, MGO, IPTH #### [facility] [address] [place] [address] HEPATIC FUNCTION Collected: 06/17/2018 Status: F Source: [facility] 3:28 AM [facility] REPOSITORY TYPE CODE TESTS RESULT OUT OF REFERENCE UNITS RANGE LAB ALB 3.5-5.0 g/dL Albumin 3.9 LAB BILD <0.3 mg/dL Bilirubin Direct 0.1 LAB BILT <1.5 mg/dL Bilirubin Total 0.4 LAB ALP 32-126 U/L Alkaline Phosphatase 76 LAB ALT 9-48 U/L ALT 14 LAB AST 14-40 U/L AST 18 LAB TP 6.4-8.3 g/dL Low Total Protein 6.2 Performed By: #### HEMOGC, PTPTT, FT4, T3RIA, OSMO, HFP, CHM7, CA, MGO, IPTH #### [facility] [address] [address] CHEM 7 Collected: 06/17/2018 Status: F Source: [facility] 3:28 AM [facility] REPOSITORY TYPE CODE TESTS RESULT OUT OF REFERENCE UNITS RANGE LAB BUN 7-22 mg/dL BUN 21 LAB NA 133-143 mmol/L Low alert Sodium 124 Result Comment: Critical NA result called to and read back by: ALEXEY RODGERS at: 06/17/2018 05:17:16 by : [id number] LAB K 3.5-5.0 mmol/L Potassium 4.2 LAB CL 98-108 mmol/L Low Chloride 95 LAB CO2 22-30 mmol/L Carbon Dioxide 22 LAB GLUC 70-99 mg/dL Glucose High 119 LAB CREA 0.50-1.20 mg/dL Creatinine High 1.33 LAB GAP 7-17 mmol/L Anion Gap 11 LAB BC BUN/CREA Ratio 16 LAB OSMC 278-305 mOsm/kg Low Osmolality (Calc) 268 LAB GFR >60 mL/min/1.73s Low qM Est GFR,non 40 LAB GFRA >60 mL/min/1.73s Low qM Est GFR, 48 Performed By: #### HEMOGC, PTPTT, FT4, T3RIA, OSMO, HFP, CHM7, CA, MGO, IPTH #### [place] [address] CALCIUM Collected: 06/17/2018 Status: F Source: [facility] 3:28 [facility] REPOSITORY TYPE CODE TESTS RESULT OUT OF REFERENCE UNITS RANGE LAB CA 8.6-10.5 mg/dL Calcium 9.4 Performed By: #### HEMOGC, PTPTT, FT4, T3RIA, OSMO, HFP, CHM7, CA, MGO, IPTH #### [place] [address] MAGNESIUM Collected: 06/17/2018 Status: F Source: [facility] 3:28 [facility] REPOSITORY TYPE CODE TESTS RESULT OUT OF REFERENCE UNITS RANGE LAB MG 1.6-2.6 mg/dL Magnesium 2.3 Performed By: #### HEMOGC, PTPTT, FT4, T3RIA, OSMO, HFP, CHM7, CA, MGO, IPTH #### [address] [place], [place] [address] [place] [address] [address] [place] [address] INTACT PTH Collected: 06/17/2018 Status: F Source: [facility] 3:28 AM [facility] REPOSITORY TYPE CODE TESTS RESULT OUT OF REFERENCE UNITS RANGE LAB IPTH 14.0-72.0 pg/mL High INTACT PTH 190.9 Performed By: #### HEMOGC, PTPTT, FT4, T3RIA, OSMO, HFP, CHM7, CA, MGO, IPTH #### [facility] [address] [place] [address] [place] [address] [address] OSMOLALITY, URINE - Collected: 06/17/2018 Status: F Source: [facility] 3:28 AM [facility] REPOSITORY TYPE CODE TESTS RESULT OUT OF REFERENCE UNITS RANGE LAB UOSM 300-900 mOsm/kg Low Urine Osmolality 114 Performed By: #### UOSMR, ULYCR #### U [facility] [address] [place] [address] [address] LYTES (NA,K,CL,CREA),URINE,RANDOM Collected: Status: F Source: [place] 06/17/2018 3:28 AM [facility] REPOSITORY TYPE CODE TESTS RESULT OUT OF REFERENCE UNITS RANGE LAB NAU1 mmol/L URINE SODIUM 20 LAB KU1 mmol/L URINE POTASSIUM 8.6 LAB CLU1 mmol/L URINE CHLORIDE <15 LAB CREU1 mg/dL Creatinine, 30.00 urine mg/dL Performed By: #### UOSMR, ULYCR #### [facility] [address] [place] [address] [address] SODIUM Collected: 06/17/2018 Status: F Source: [facility] 2:13 AM [facility] REPOSITORY TYPE CODE TESTS RESULT OUT OF REFERENCE UNITS RANGE LAB NA 133-143 mmol/L Low Sodium 125 Performed By: #### PATI #### U [facility] [address] [place] [address] [address] SODIUM Collected: 06/16/2018 Status: F Source: [facility] 11:44 PM [facility] REPOSITORY TYPE CODE TESTS RESULT OUT OF REFERENCE UNITS RANGE LAB NA 133-143 mmol/L Low alert Sodium 123 Result Comment: Critical NA result called to and read back by: ALEXEY TOPETE at: 06/17/2018 01:14:36 by : Brad Performed By: #### PATI, TROP, OSMO #### [facility] [address] [place] [address] [address] [place] [address] TROPONIN I Collected: 06/16/2018 Status: F Source: [facility] 11:44 PM [facility] REPOSITORY TYPE CODE TESTS RESULT OUT OF REFERENCE UNITS RANGE LAB TROP <0.11 ng/mL Troponin I 0.03 Performed By: #### PATI, TROP, OSMO #### [facility] [address] [place] [address] [address] [place] [address] OSMOLALITY Collected: 06/16/2018 Status: F Source: [facility] 11:44 PM [facility] REPOSITORY TYPE CODE TESTS RESULT OUT OF REFERENCE UNITS RANGE LAB OSMO 278-305 mOsm/kg Low Osmolality 263 Performed By: #### PATI, TROP, OSMO #### [facility] [address] [place] [address] [facility] [address] [place] [address] SODIUM Collected: 06/16/2018 Status: F Source: [facility] 10:51 PM [facility] REPOSITORY TYPE CODE TESTS RESULT OUT OF REFERENCE UNITS RANGE LAB NA 133-143 mmol/L Low alert Sodium 122 Result Comment: Critical NA result called to and read back by: ALEXEY RODGERS at: 06/17/2018 00:14:06 by : Brad Performed By: #### PATI #### [facility] [address] [place], [place] [id number] [facility] [address] [place] [address] OSMOLALITY Collected: 06/16/2018 Status: F Source: [facility] 8:08 PM [facility] REPOSITORY TYPE CODE TESTS RESULT OUT OF REFERENCE UNITS RANGE LAB OSMO 278-305 mOsm/kg Low Osmolality 263 Performed By: #### OSMO, PATI #### [facility] [address] [place] [address] [place] [address] [address] SODIUM Collected: 06/16/2018 Status: F Source: [facility] 8:08 PM [facility] REPOSITORY TYPE CODE TESTS RESULT OUT OF REFERENCE UNITS RANGE LAB NA 133-143 mmol/L Low alert Sodium 122 Result Comment: Critical NA result called to and read back by: ALEXEY RODGERS at: 06/16/2018 21:27:24 by : 1957 Performed By: #### OSMO, PATI #### [facility] [place] [address] XR CHEST PORTABLE Observed: 06/16/2018 Status: F Source: [facility] 7:44 PM [facility] REPOSITORY EXAM: XR CHEST PORTABLE, 06/16/2018 18:33 PM COMPARISON: November 18, 2015 chest radiograph. CLINICAL INDICATIONS: leukocytosis and cough RELEVANT CLINICAL HISTORY: FINDINGS: (Compromised by low lung volumes) Life Support Devices: None Chest Wall: Normal Tarik: Normal Mediastinum: Normal Pleural Spaces: No definite pleural effusion. No definite pneumothorax. Lungs: Low lung volumes. No consolidation. Cardiac Silhouette: Normal, without overall or specific chamber enlargement, or abnormal calcification Thoracic Aorta: Normal Pulmonary Vessels: Normal, without PVH IMPRESSION: No acute cardiopulmonary findings. Low lung volumes without lung consolidation identified.. ONIN I Collected: 06/16/2018 Status: F Source: [facility] 6:14 PM [facility] REPOSITORY TYPE CODE TESTS RESULT OUT OF REFERENCE UNITS RANGE LAB TROP <0.11 ng/mL Troponin I 0.04 Performed By: #### TROP #### [facility] [id number] [place] [address] DRUG PANEL 10, URINE Collected: 06/16/2018 Status: F Source: [facility] 6:14 PM [facility] REPOSITORY TYPE CODE TESTS RESULT OUT OF REFERENCE UNITS RANGE LAB TCOMT COMMENT Urine: For medical purposes only. Positive results unconfirmed unless otherwise noted. LAB AMPHU 500 ng/mL NONE Amphetamine/Methamp DETECTED hetamine LAB BARBU 200 ng/mL Barbiturates NONE DETECTED LAB BENZOU 200 ng/mL Benzodiazepines NONE DETECTED LAB COCU 150 ng/mL NONE Cocaine/Metabolites DETECTED LAB OPIA3 300 ng/mL Opiates NONE DETECTED LAB METHDU 300 ng/mL Methadone NONE DETECTED LAB OXCOD 100 ng/mL Oxycodone NONE DETECTED LAB THCU 50 ng/mL Cannabinoids NONE (Marijuana) DETECTED LAB FENTU 2 ng/mL Fentanyl NONE DETECTED LAB BUPR 5 ng/mL Buprenorphine NONE DETECTED Performed By: #### 10DRUG #### [facility] [place] [address] OSMOLALITY, URINE - Collected: 06/16/2018 Status: F Source: [facility] 6:14 PM [facility] REPOSITORY TYPE CODE TESTS RESULT OUT OF REFERENCE UNITS RANGE LAB UOSM 300-900 mOsm/kg Low Urine Osmolality 66 Performed By: #### UOSMR, ULYTR #### U [address] [address] LYTES (NA,K,CL), URINE Collected: 06/16/2018 Status: F Source: [facility] 6:14 PM [facility] REPOSITORY TYPE CODE TESTS RESULT OUT OF REFERENCE UNITS RANGE LAB NAU1 mmol/L URINE SODIUM 13 Result Comment: The reference range has not been established for random urine specimens. The test result should be integrated into the clinical context for interpretation. LAB KU1 mmol/L URINE POTASSIUM 6.7 Result Comment: The reference range has not been established for random urine specimens. The test result should be integrated into the clinical context for interpretation. LAB CLU1 mmol/L URINE CHLORIDE <15 Result Comment: The reference range has not been established for random urine specimens. The test result should be integrated into the clinical context for interpretation. Performed By: #### UOSMR, ULYTR #### [facility] [address] [place], [place] [address] BLOOD DRUG SCREEN Collected: 06/16/2018 Status: F Source: [facility] 4:50 PM [facility] REPOSITORY TYPE CODE TESTS RESULT OUT OF REFERENCE UNITS RANGE LAB ASRES OLANZAPINE BLOOD DRUGS DETECTED LAB ASDRG For Medical BLOOD DRUG Purposes Only, SCREEN Non-forensic, screen results are presumptive. No confirmatory testing will follow. Result Comment: This Liquid Chromatography Mass Spectrometry (LC/MS/MS) test was developed and its performance characteristics determined by [facility] at [facility]. It has not been cleared or approved by the FDA. The laboratory is regulated under CLIA as qualified to perform high-complexity testing. This test is used for clinical purposes. It should not be regarded as investigational or for research. The following drugs with their lowest level of detection in ng/ml(LOD) are included in this screen: 6 Monoacetylmorphine(300), 7 Aminoflunitrazepam(25), 7 Aminoclonazepam(50), Alphahydroxytriazolam(400), Alphahydrozyalprazolam(200), Alprazolam(50), Amitriptyline(50), Amphetamine(250), Atenolol(500), Barbiturates(1000), Benzoylecgonine(50), Buprenorphine(50), Bupropion(25), Caffeine([address]), Chlordiazepoxide(50), Chlorpheniramine(100), Chlorpromazine(50), Citalopram(100), Clonazepam(200), Cocaine(25), Codeine(200), Cotinine(500), Desakylflurazepam(50), Desipramine(50), Desmethyldoxepin(100), Dextromethorphan(100), Diazepam(100), Dihydrocodeine(100), Diltazem(50), Diphenhydramine(100), Doxepin(100), EDDP/methadone(100), Ephedrine/Pseudoephedrine(100), Fentanyl(25), Flunitrazepam(100), Fluoxetine(200), Flurazepam(50), Gabapentin(1500), Haloperidol(25), Hydrocodone(100), Hydromorphone(200), Imipramine(50), Ketamine(25), Lidocaine(25), Lorazepam(100), Lysergide(LSD)(25), Maprotiline(200), MDA(250), MDMA(250), Meperidine(50), Methadone(50), Methamphetamine(500), Methylphenidate(50), Metoprolol(50), Morphine(200), Nalbuphine(50), Naloxone(200), Norbuprenorphine(300), Nordiazepam(100), Norfentanyl(100), Norpropoxyphene(50), Nortriptyline(50), Olanzapine(200), Oxazepam(200), Oxycodone(100), Oxymorphone(200), Phencyclidine(PCP)(25), Pheniramine(25), Pregabalin(1500), Promethazine(50), Propoxyphene(100), Propanolol(50) Quetiapine(25), Quinidine(500), Ranitidine(500), Risperidone(100), Sertraline(50), Temazepam(100), Thioridazine(100), Tramadol(50), Trazodone(25, Triazolam(100), Venlafaxine(50), Verapamil(100), Zolpidem(200) Performed By: #### SERG #### [facility] [place] [address] Observed: 06/16/2018 Status: F Source: [facility] BLOOD:ROUTINE II 4:44 PM [facility] REPOSITORY SOURCE: BLOOD, PERIPHERAL: Left Antecubital RESULT: NO GROWTH DAY 5 OF 5 REPORT STATUS: 06/21/2018 FINAL Performed By: #### FAST2 #### [facility] [address] [place] [address] Blood Cultures processed at: [facility] OSMOLALITY Collected: 06/16/2018 Status: F Source: [facility] 4:30 PM [facility] REPOSITORY TYPE CODE TESTS RESULT OUT OF REFERENCE UNITS RANGE LAB OSMO 278-305 mOsm/kg Low Osmolality 250 Performed By: #### OSMO #### U [place] [address] #### YADH #### Reference lab information reported with result SODIUM - CHRI Collected: 06/16/2018 Status: F Source: [facility] 4:30 [facility] REPOSITORY TYPE CODE TESTS RESULT OUT OF REFERENCE UNITS RANGE LAB NA 133-143 mmol/L Low alert Sodium 114 Result Comment: Called to and read back by ALEXEY MOODY ON ThuJun 16 17:24:58 2017 Performed By: #### OSMO #### [facility] [place] [address] #### YADH #### Reference lab information reported with result ARGININE VASOPRESSIN, P Collected: 06/16/2018 Status: F Source: [facility] 4:30 PM [facility] REPOSITORY TYPE CODE TESTS RESULT OUT OF REFERENCE UNITS RANGE LAB YADH Arginine See below Vasopressin, P Result Comment: Reviewed IN IHIS BY EDMOND DUTTON MD ON 07/03/18 AT 0630AM (NOTE) TESTS RESULTS--------UNITS--REF. RANGE--- Arginine Vasopressin See below pg/mL Reference Range: 1.0-13.3 TNP-TEST NOT PERFD. We are unable to perform this test. Please accept our apology to you and your patient. A technical problem with the assay necessitated a repeat, but there was insufficient sample to perform a repeat. This test was developed and its analytical performance characteristics have been determined by [facility]. It has not been cleared or approved by FDA. This assay has been validated pursuant to the CLIA regulations and is used for clinical purposes. Results Received 07/01/18 Reference lab accession: [id number] Test performed by [facility] [address] [place] [address] It Business Analyst: Nasreen Horton MD,PHD,JUAREZ Test Reported by [facility], [facility], [address] [place] [address] Erasto Brown M.D., Ph.D., Director of Laboratories , [place] [id number] Performed By: #### OSMO #### [facility] [place] [address] #### YADH #### Reference lab information reported with result Observed: 06/16/2018 Status: F Source: [facility] BLOOD:ROUTINE I 4:30 PM [facility] REPOSITORY SOURCE: BLOOD, PERIPHERAL: Right Antecubital RESULT: NO GROWTH DAY 5 OF 5 REPORT STATUS: 06/21/2018 FINAL Performed By: #### FAST #### [place] [address] Blood Cultures processed at: [facility] CBC WITH DIFF RUDDY Collected: 06/16/2018 Status: F Source: [facility] 12:19 PM [facility] REPOSITORY TYPE CODE TESTS RESULT OUT OF REFERENCE UNITS RANGE LAB WBC 3.98-10.04 K/uL WBC Count 12.98 High LAB RBC 3.93-5.22 M/uL RBC Count 4.53 LAB HGB 11.2-15.7 g/dL Hemoglobin 13.6 LAB HCT 34.1-44.9 % Hematocrit 38.3 LAB MCV 79.4-94.8 fL Mean Cell 84.5 Volume LAB MCH 25.6-32.2 pg Mean Cell 30.0 Hgb LAB MCHC 32.2-35.5 g/dL Mean Cell 35.5 Hgb Conc LAB RDW 11.7-14.4 % RBC 11.7 Distribution LAB PLT 182-369 K/uL Platelet 285 Count LAB MPV 9.4-12.3 fL Mean 8.1 Low Platelet Volume LAB NRBC 0.0-0.2 /100 WBC NUCLEATED 0.0 RBC LAB DTYPE Electronic DIFFERENTIAL TYPE Differential LAB IGRE % IMMATURE 0.4 GRANS % LAB SEGS % NEUTROPHIL 87.4 SEGMENTED LAB LYM % LYMPHOCYTE 5.1 % LAB MON % MONOCYTE % 6.9 LAB EOS % EOSINOPHIL 0.1 % LAB BASO % BASOPHIL % 0.1 LAB IGABS <0.04 K/uL IMMATURE 0.05 High GRANS ABSOLUTE LAB SBANS 1.56-6.13 K/uL SEGS + 11.36 High Bands,Absolute LAB ALYM 1.18-3.74 K/uL Abs Lymph 0.66 Low LAB AMONO 0.24-0.86 K/uL Abs Fannin 0.89 High LAB AEOS <0.37 K/uL Abs Eos <0.04 LAB ABASO <0.09 K/uL Abs Baso <0.04 Performed By: #### SANDRADFJ #### [facility]dy [facility], [facility] [address] [place] [address] TSH, HIGH SENSITIVITY - Collected: 06/16/2018 Status: F Source: [facility] 12:19 PM [facility] REPOSITORY TYPE CODE TESTS RESULT OUT OF REFERENCE UNITS RANGE LAB TSH 0.550-4.780 uIU/mL Low TSH, High Sensitivity 0.195 Performed By: #### SANDRADFJ #### [facility], [facility] [address] [place] [address] HEPATIC FUNCTIONS - Collected: 06/16/2018 Status: F Source: [facility] 12:19 PM [facility] REPOSITORY TYPE CODE TESTS RESULT OUT OF REFERENCE UNITS RANGE LAB AST 14-40 U/L AST 27 LAB ALT 9-48 U/L ALT 19 LAB ALP 32-126 U/L Alkaline Phosphatase 85 LAB ALB 3.5-5.0 g/dL Albumin 4.6 LAB BILD <0.3 mg/dL Bilirubin Direct 0.1 LAB BILT <1.5 mg/dL Bilirubin Total 0.7 LAB TP 6.4-8.3 g/dL Total Protein 7.3 Performed By: #### CBCDFJ #### [facility], [facility] [address] [address] CHEM 7 ED - CHRI Collected: 06/16/2018 Status: F Source: [facility] 12:19 PM [facility] REPOSITORY TYPE CODE TESTS RESULT OUT OF REFERENCE UNITS RANGE LAB BUN 7-22 mg/dL BUN 17 LAB CREA 0.50-1.20 mg/dL Creatinine 1.06 LAB NA 133-143 mmol/L Low Sodium alert 111 Result Comment: Repeated and verified, called to and read back by DENISA MANSFIELD RN ON ThuJun 16 13:30:49 2018 LAB K 3.5-5.0 mmol/L Potassium 4.7 LAB CL 98-108 mmol/L Low Chloride 80 LAB CO2 22-30 mmol/L Low Carbon Dioxide 20 LAB GLUC 70-99 mg/dL Glucose High 126 LAB GFR >60 mL/min/1.73s Low qM Est GFR,non 51 LAB GFRA >60 mL/min/1.73s qM Est GFR, >60 LAB GAP 7-17 mmol/L Anion Gap 16 LAB BC BUN/CREA Ratio 16 LAB OSMC 278-305 mOsm/kg Low Osmolality (Calc) 243 Performed By: #### LIBRADO #### Ruddy [facility] [address] [place] [address] CALCIUM - CHRI Collected: 06/16/2018 Status: F Source: [facility] 12:19 [facility] REPOSITORY TYPE CODE TESTS RESULT OUT OF REFERENCE UNITS RANGE LAB CA 8.6-10.5 mg/dL Calcium 10.0 Performed By: #### LIBRADO #### [facility]dy [facility] [address] [place] [address] INORG PHOSPHATE - CHRI Collected: 06/16/2018 Status: F Source: [facility] 12:19 [facility] REPOSITORY TYPE CODE TESTS RESULT OUT OF REFERENCE UNITS RANGE LAB IP 2.2-4.6 mg/dL Low Inorg Phosphate 2.1 Performed By: #### KIKIJ #### Ruddy [facility] [address] [place] [address] MAGNESIUM - CHRI Collected: 06/16/2018 Status: F Source: [facility] 12:19 [facility] REPOSITORY TYPE CODE TESTS RESULT OUT OF REFERENCE UNITS RANGE LAB MG 1.6-2.6 mg/dL Magnesium 1.9 Performed By: #### KIKIJ #### [facility] [address] [place] [address] URINE W/ MICROSCOPIC-CHRI Collected: 06/16/2018 Status: F Source: [facility] 12:19 [facility] REPOSITORY TYPE CODE TESTS RESULT OUT OF RANGE REFERENCE UNITS 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 Urine Clear LAB SPGR 1.001-1.035 Specific [place] urine <=1.005 LAB UPH 5.0-7.0 pH Urine 6.5 LAB UGL Negative mg/dL Glucose Urine Negative LAB UKET Negative Ketones Urine Negative LAB UPR Negative mg/dL Protein Abnormal Urine Trace LAB UURO <2.0 EU/dL Urobilinogen 0.2 urine LAB UNTR Negative Nitrites Urine Negative LAB ULEU Negative Leukocyte Esterase Negative LAB UBLD Negative Blood Urine Abnormal Small LAB COLR Yellow Color Yellow LAB UWBC 0-5 /HPF WBC Urine 0-5 LAB URBC 0-2 /HPF RBC Urine 0-2 LAB BACT Absent Bacteria Absent LAB UCOM COMMENT URINE None LAB EPIS /HPF Squamous Epithelial None Performed By: #### URNJ #### [facility] [address] [place], [place] [address] [place] [address] [address] [place] [address] TROPONIN - CHRI Collected: 06/16/2018 Status: F Source: [facility] 12:19 PM [facility] REPOSITORY TYPE CODE TESTS RESULT OUT OF REFERENCE UNITS RANGE LAB TROP <0.11 ng/mL Troponin I 0.04 PROGRESS Observed: 05/03/2018 Status: COMPLETED Source: [place] 5:35 PM [facility] REPOSITORY HNO ID: [id number] Author: Turner Staruss Service: (none) Author Type: Psychologist Type: Progress Notes Filed: 05/03/2018 5:40 PM Note Text: [facility] Progress Note Fior Hernandez 05/03/2018 [id number] Provider: Turner Strauss, PHD CPT Code: 40670 Psychotherapy 38-52 minutes Time: Approximately 50 minutes was spent in therapy. Parties Present: Patient, Spouse Patient Presentation/Concerns: pt has had a depressive time and then panic and worthlessness worry Meds have changed and Dr Feliciano seems to be on top of things in spite of how difficult getting her meds right throughout the year can be PLAN: wait and see how she responds to current med changes some more panicky times, hair loss, and anhedonia in last month Discussed the model of getting the flu and being able to anticipate it ending while feeling like this is the way it will be forever Mental Status: Mood: depressed Affect: mood-congruent Thoughts/Associations:goal directed Suicidal/Homicidal Ideation: None expressed or evidenced Other Observations: None Therapy Focus Self-care and Mood/affect regulation MEDICATIONS: Per medical record: No current outpatient prescriptions on file. No current facility-administered medications for this visit. Psychiatric Medication Issues: see med record DIAGNOSIS: [place] I Bipolar I r/o Schizophrenia as a separate event ?? [place] II: deferred [place] III: see med notes.... Diabetes controlled [place] IV: periods of depression anxiety corina and psychosis [place] V: 52 Treatment Modality/Interventions: Cognitive Behavioral Reassurance/Supportive Insight oriented Problem solving TREATMENT ASSESSMENT/PROGRESS: . Progressing satisfactorily. TREATMENT PLAN/GOALS: Continue in therapy focusing on self- care, stress management, affect management, anxiety management and self-esteem. Next appointment: as scheduled Turner Strauss PHD PROGRESS Observed: 03/25/2018 Status: COMPLETED Source: [place] 3:04 PM [facility] REPOSITORY HNO ID: [id number] Author: Turner Strauss Service: (none) Author Type: Psychologist Type: Progress Notes Filed: 03/25/2018 3:11 PM Note Text: [facility] Progress Note Fior Smith Iwona Hernandez 03/25/2018 [id number] Provider: Turner Strauss PHD CPT Code: 91219 Psychotherapy 38-52 minutes Time: Approximately 50 minutes was spent in therapy. Parties Present: Patient, Spouse Patient Presentation/Concerns: bipolar, depressed discussed the floodlight of her life is productive and creative along with a more than healthy empathy while she is currently in a spotlight of her live ... which can feel like they are forever but are actually small and periodic ...feels oppressive ... wishing to be sleeping a lot and GETTING THRU her days PLAN/HMWK: ... ACT ... from just doing something to feeling like being productive... so she is in life as her mood becomes CONGRUENT again self esteem goes into the dumpster in these depressive phases... we discussed this at length MEDS: consulted and Klonopin down to 1mg from 2 and had been up to 10; Zyprexa moved from 10 to 15 to help current depression.. and still on 400 Lamictal Mental Status: Mood: depressed Affect: mood-congruent Thoughts/Associations:goal directed Suicidal/Homicidal Ideation: None expressed or evidenced Other Observations: None Therapy Focus Self-care, Mood/affect regulation and Self-esteem MEDICATIONS: Per medical record: No current outpatient prescriptions on file. No current facility-administered medications for this visit. Psychiatric Medication Issues: as noted DIAGNOSIS: [place] I Bipolar I r/o Schizophrenia as a separate event ?? [place] II: deferred [place] III: see med notes.... Diabetes controlled [place] IV: periods of depression anxiety corina and psychosis [place] V: 52 Treatment Modality/Interventions: Cognitive Behavioral Reassurance/Supportive Insight oriented Problem solving Psychoeducation TREATMENT ASSESSMENT/PROGRESS: . Progressing satisfactorily. TREATMENT PLAN/GOALS: Continue in therapy focusing on self- care, stress management, affect management and self-esteem. Next appointment: as scheduled Turner Strauss, PHD COMPREHENSIVE METABOLIC Collected: 03/23/2018 Status: F Source: [place] 9:03 AM [facility] REPOSITORY TYPE CODE TESTS RESULT OUT OF RANGE REFERENCE UNITS LAB L501.0100 74-106 mg/dL High GLU 114 Result Comment: Fasting Glucose result from 100 to 125 mg/dL suggests IMPAIRED HOMEOSTASIS per A.D.A. criteria. Please note revised GLUCOSE reference range effective 2017. LAB L501.1000 7-18 mg/dL High BUN 33 LAB L501.1100 0.55-1.02 mg/dL High CREAT,SERUM 1.82 Result Comment: The validity of the calculated GFR AND GFRAA in patients over 70 years has not been determined. Clinical correlation is essential. LAB L501.1110 >60 mL/min Low EST GFR 29 Result Comment: Non- GFR Calc LAB L501.1115 >60 mL/min Low EST GFR - AA 35 Result Comment: GFR Calc LAB L501.1300 10-20 RATIO Normal BUN/CRE 18.1 LAB L501.1500 6.4-8.2 g/dL T Normal PROT 7.3 LAB L501.1800 3.2-5.0 g/dL Normal ALB 3.7 LAB L501.1950 2.2-4.2 g/dL Normal GLOB 3.6 LAB L501.2000 0.9-2.4 RATIO Normal A/G 1.0 LAB L501.2200 8.5-10.1 mg/dL CA Normal 9.5 LAB L501.4100 15-37 U/L Normal AST 17 LAB L501.4305 45-117 U/L Normal ALK P 91 LAB L501.4405 13-56 U/L Normal ALT 17 LAB L501.4600 0.20-1.00 mg/dL T Normal BILI 0.30 LAB L501.5300 136-145 mmol/L NA Normal 142 LAB L501.5600 3.5-5.1 mmol/L K Normal 4.5 LAB L501.5900 98-107 mmol/L High CL 112 LAB L501.6100 21.0-32.0 mmol/L Normal CO2 22.0 LAB L501.6200 5-15 Normal GAP 8 Performed By: #### L500.4050 #### [facility] [address] [place], [address] PTHIN Collected: 03/23/2018 Status: F Source: [place] 9:03 AM [facility] REPOSITORY TYPE CODE TESTS RESULT OUT OF RANGE REFERENCE UNITS LAB L509.1000 18.4-80.1 pg/mL High PTHIN 150.4 Performed By: #### L509.1000 #### [facility] [address] [place], [address] VITAMIN D,25 HYDROXY Collected: 03/23/2018 Status: F Source: [place] 9:03 AM [facility] REPOSITORY TYPE CODE TESTS RESULT OUT OF RANGE REFERENCE UNITS LAB L506.1000 29.95-100.01 ng/mL Normal Vitamin D 75.3 25-OH Result Comment: Vitamin D 25(OH) Status Range Deficiency <20 ng/mL (50nmol/L) Insuffciency 20 - 30 ng/mL (50 - 75 nmol/L) Sufficiency 30 - 100 ng/mL (75 - 250 nmol/L) Toxicity >100 ng/mL (>250 nmol/L) Performed By: #### L506.1000 #### [facility] [address] [place], [address] CALCIUM IONIZED Collected: 03/23/2018 Status: F Source: [place] 9:03 AM [facility] REPOSITORY TYPE CODE TESTS RESULT OUT OF REFERENCE UNITS RANGE LAB L3100.9600 4.5-5.6 mg/dL High IONIZED CA 5.7 Result Comment: Performed at: - [facility] [address] [id number] Spiritual Counselor: Hunter Myers PhD, Phone: [phone] Performed By: #### L3100.9600 #### [facility] (refer to report for specific site) refer to report for address and phone number PROGRESS Observed: 02/12/2018 Status: COMPLETED Source: [place] 4:29 PM [facility] REPOSITORY HNO ID: [id number] Author: Turner Strauss Service: (none) Author Type: Psychologist Type: Progress Notes Filed: 02/12/2018 4:39 PM Note Text: [facility] Progress Note Fior Hernandez 02/12/2018 [id number] Provider: Turner Strauss, PHD CPT Code: 68156 Psychotherapy 38-52 minutes Time: Approximately 50 minutes was spent in therapy. Parties Present: Patient Patient Presentation/Concerns: doing continually better Pt holding thoughts longer and much less tangential speech He meds are much more useful and leave her less foggy discussed what is happening since her brother's and discussed her daughter's ending of her marriage at length Outcome: suggest and wonder vs give advice Mental Status: Mood: variable Affect: mood-congruent Thoughts/Associations:goal directed Suicidal/Homicidal Ideation: None expressed or evidenced Other Observations: None Therapy Focus Self-care, Mood/affect regulation and Family relationships MEDICATIONS: Per medical record: No current outpatient prescriptions on file. No current facility-administered medications for this visit. Psychiatric Medication Issues: see Dr Feliciano's med notes DIAGNOSIS: [place] I Bipolar I r/o Schizophrenia as a separate event ?? [place] II: deferred [place] III: see med notes.... Diabetes controlled [place] IV: periods of depression anxiety corina and psychosis [place] V: 52 Treatment Modality/Interventions: Cognitive Behavioral Reassurance/Supportive Insight oriented Problem solving TREATMENT ASSESSMENT/PROGRESS: . Progressing satisfactorily. TREATMENT PLAN/GOALS: Continue in therapy focusing on self- care and affect management. Next appointment: as scheduled Turner Strauss PHD PROGRESS Observed: 01/26/2018 Status: COMPLETED Source: [place] 10:30 AM [facility] REPOSITORY HNO ID: [id number] Author: Turner Strauss Service: (none) Author Type: Psychologist Type: Progress Notes Filed: 01/26/2018 12:17 PM Note Text: [facility] Progress Note Fior Hernandez 01/26/2018 [id number] Provider: Turner Strauss PHD CPT Code: 40259 Psychotherapy 38-52 minutes Time: Approximately 50 minutes was spent in therapy. Parties Present: Patient Patient Presentation/Concerns: doing better reduced tangential speech but clearly present able to catch herself when talking too rapidly pt pretty much ok now with her brother's suicide ... she sees him as deteriorating physically before that and has some peace with it all daughter: her husb has paranoid schiz and wouldnt take meds he left and she finally accepted it is over and is proceeding with divorce MEDS: now with fewer meds causing confusion or attention issues... she is more present and seems more steady emotionally Mental Status: Mood: variable Affect: mood-congruent Thoughts/Associations:goal directed Suicidal/Homicidal Ideation: None expressed or evidenced Other Observations: None Therapy Focus Self-care, Stress management and Coping with chronic illness MEDICATIONS: Per medical record: No current outpatient prescriptions on file. No current facility-administered medications for this visit. Psychiatric Medication Issues: see med notes DIAGNOSIS: [place] I Bipolar I r/o Schizophrenia as a separate event ?? [place] II: deferred [place] III: see med notes.... Diabetes controlled [place] IV: periods of depression anxiety corina and psychosis [place] V: 52 Treatment Modality/Interventions: Cognitive Behavioral Reassurance/Supportive Insight oriented Problem solving TREATMENT ASSESSMENT/PROGRESS: . Progressing satisfactorily. TREATMENT PLAN/GOALS: Continue in therapy focusing on self-care, interpersonal relationships, affect management and coping with mood disorder issues. Next appointment: as scheduled Turner Strauss, PHD MA MAMMOGRAM SCREENING Observed: 01/08/2018 Status: F Source: [facility]/[place] 1:30 PM [facility] REPOSITORY ORIGINAL FROM: [place] [id number] PROCEDURE FOR: FIOR HERNANDEZ [address] [id number] Home: PID#: [id number] Exam#: [id number] : 1950 Age: 67 TO: JOAN KINCAID NP [address] [place] [address] #[id number] DIGITAL SCREENING MAMMOGRAM 3D/2D WITH CAD WITH MEDIOLATERAL OBLIQUE CRANIOCAUDAL: 01/08/2018 Comparison is made to exams dated: 10/07/2016 mammogram and 02/01/2014 mammogram - [facility]. There are scattered fibroglandular elements in both breasts. Current study was also evaluated with a Computer Aided Detection (CAD) system. There are benign calcifications in both breasts. There also is a biopsy clip in the right breast. No significant masses, calcifications, or other findings are seen in either breast. There has been no significant interval change. IMPRESSION: BENIGN There is no mammographic evidence of malignancy. A 1 year screening mammogram is recommended. I have personally reviewed the images of the examination and agree with the findings and interpretation. PAWAN LAU MD ab,nf/penrad:01/08/2018 15:22:33 Log Chain Worker: MEG AGUILAR (R)(M), [facility] letter sent: Normal BI-RADS 1&2 Mammogram BI-RADS: 2 Benign CBC-COMPLETE BLOOD CNT Collected: 12/24/2017 Status: F Source: [place] NO DIFF 9:15 AM [facility] REPOSITORY TYPE CODE TESTS RESULT OUT OF RANGE REFERENCE UNITS LAB L100.1000 4.4-11.0 K/mm3 Normal WBC 5.1 LAB L100.1200 4.2-5.4 M/mm3 Normal RBC 4.23 LAB L100.1300 12.0-15.0 g/dl Normal HGB 12.5 LAB L100.1400 37-47 % Normal HCT 39.9 LAB L100.1500 81-99 fL Normal MCV 94.3 LAB L100.1600 27.0-32.0 pg Normal MCH 29.6 LAB L100.1700 32-36 g/gl Low MCHC 31.3 LAB L100.1810 11.6-14.6 % Normal RDW CV 12.9 LAB L100.1820 35.1-43.9 fl High RDW SD 44.1 LAB L100.1900 150-450 K/mm3 Normal PLT 232 LAB L100.2000 6.2-12.0 fl Normal MPV 8.9 Performed By: #### L100.0500 #### [facility] [address] [place], [address] MICROALB:CREAT Collected: 12/24/2017 Status: F Source: [place] RATIO,RANDOM UR 9:15 AM [facility] REPOSITORY TYPE CODE TESTS RESULT OUT OF RANGE REFERENCE UNITS LAB L501.1200 NO RANGE EST. mg/dL Normal UR CREAT 37.50 LAB L502.0500 NO RANGE EST. mg/L Normal 21.2 MICROALBUMIN ,UR LAB L502.0600 <30 mg/g CRE mg/g CRE High 56.5 MALB:CREAT Performed By: #### L502.0250 #### [facility] [address] [place], [place], [address] RENAL PROFILE Collected: 12/24/2017 Status: F Source: [place] 9:15 AM [facility] REPOSITORY TYPE CODE TESTS RESULT OUT OF RANGE REFERENCE UNITS LAB L501.0100 74-106 mg/dL Normal GLU 82 Result Comment: Please note revised GLUCOSE reference range effective 2017. LAB L501.1000 7-18 mg/dL High BUN 25 LAB L501.1100 0.55-1.02 mg/dL High CREAT,SERUM 1.50 Result Comment: The validity of the calculated GFR AND GFRAA in patients over 70 years has not been determined. Clinical correlation is essential. LAB L501.1110 >60 mL/min Low EST GFR 37 Result Comment: Non- GFR Calc LAB L501.1115 >60 mL/min Low EST GFR - AA 44 Result Comment: GFR Calc LAB L501.1300 10-20 RATIO Normal BUN/CRE 16.7 LAB L501.1800 3.2-5.0 g/dL Normal ALB 3.6 LAB L501.2200 8.5-10.1 mg/dL CA Normal 9.9 LAB L501.2300 2.5-4.9 mg/dL Normal PHOS 3.1 LAB L501.5300 136-145 mmol/L NA Normal 137 LAB L501.5600 3.5-5.1 mmol/L K Normal 4.0 LAB L501.5900 98-107 mmol/L CL Normal 105 LAB L501.6100 21.0-32.0 mmol/L Normal CO2 23.0 Performed By: #### L500.3600 #### [facility] [address] [place], [address] VITAMIN D,25 HYDROXY Collected: 12/24/2017 Status: F Source: [place] 9:15 AM [facility] REPOSITORY TYPE CODE TESTS RESULT OUT OF RANGE REFERENCE UNITS LAB L506.1000 19.95-100.01 ng/mL Normal Vitamin D 56.7 25-OH Result Comment: Vitamin D 25(OH) Status Range Deficiency <20 ng/mL (50nmol/L) Insuffciency 20 - 30 ng/mL (50 - 75 nmol/L) Sufficiency 30 - 100 ng/mL (75 - 250 nmol/L) Toxicity >100 ng/mL (>250 nmol/L) Performed By: #### L506.1000 #### [facility] [address] [place], [address] PTHIN Collected: 12/24/2017 Status: F Source: [place] 9:15 AM [facility] REPOSITORY TYPE CODE TESTS RESULT OUT OF RANGE REFERENCE UNITS LAB L509.1000 18.4-80.1 pg/mL High PTHIN 91.2 Result Comment: Please Note: PTH INTACT METHOD AND REFERENCE RANGE CHANGE Effective 10/28/2017. Performed By: #### L509.1000 #### [facility] [address] [place], [place], [address] PROGRESS Observed: 12/18/2017 Status: COMPLETED Source: [place] 12:38 PM [facility] REPOSITORY HNO ID: [id number] Author: Turner Strauss Service: (none) Author Type: Psychologist Type: Progress Notes Filed: 12/18/2017 12:52 PM Note Text: [facility] Progress Note Fior Hernandez 12/18/2017 [id number] Provider: Turner Strauss, PHD CPT Code: 02405 Psychotherapy 38-52 minutes Time: Approximately 50 minutes was spent in therapy. Parties Present: Patient, Spouse Patient Presentation/Concerns: pt improving w reducing some meds MEDS: 10mg Zyprexa... 400mg Lamictal... 2 mg Klonopin balance is back confusion and memory less an issue Pt had a Panic attack about 10min yesterday when miscommunication about an exercise class and actually canceled because of weather Her back is improving Pt wonder if she might be able to drive again w husb in car for short local trips pt doing better w of her brother Mental Status: Mood: variable Affect: mood-congruent Thoughts/Associations:goal directed Suicidal/Homicidal Ideation: None expressed or evidenced Other Observations: None Therapy Focus Self-care, Stress management and Self-esteem MEDICATIONS: Per medical record: No current outpatient prescriptions on file. No current facility-administered medications for this visit. Psychiatric Medication Issues: as noted DIAGNOSIS: [place] I Bipolar I r/o Schizophrenia as a separate event ?? [place] II: deferred [place] III: see med notes.... Diabetes controlled [place] IV: periods of depression anxiety corina and psychosis [place] V: 51 Treatment Modality/Interventions: Cognitive Behavioral Reassurance/Supportive Insight oriented Problem solving TREATMENT ASSESSMENT/PROGRESS: . Progressing satisfactorily. TREATMENT PLAN/GOALS: Continue in therapy focusing on self- care and self-esteem. Next appointment: as scheduled Turner Strauss, PHD CALCIUM, URINE 24HR Collected: 12/02/2017 Status: F Source: [place] 8:12 AM [facility] REPOSITORY TYPE CODE TESTS RESULT OUT OF RANGE REFERENCE UNITS LAB L501.2281 24.0-24.0 HR 24.0 Normal UR Collect Time LAB L501.2288 ml 3100 Normal UR Total Volume LAB L501.2290 Not Estab. < 5.0 Normal Urine Calcium LAB L501.2280 2 Normal Calcium UR pH LAB L501.2293 42.0-353.0 mg/24 HR Test Normal 24HR UR not performed Calcium Performed By: #### L500.7000 #### [facility] [address] [place], [place], [address] PTHIN Collected: 11/30/2017 Status: F Source: [place] 9:56 AM [facility] REPOSITORY TYPE CODE TESTS RESULT OUT OF RANGE REFERENCE UNITS LAB L509.1000 18.4-80.1 pg/mL High PTHIN 145.0 Result Comment: Please Note: PTH INTACT METHOD AND REFERENCE RANGE CHANGE Effective 10/28/2017. Performed By: #### L509.1000 #### [facility] [address] [place], [address] VITAMIN D,25 HYDROXY Collected: 11/30/2017 Status: F Source: [place] 9:56 AM [facility] REPOSITORY TYPE CODE TESTS RESULT OUT OF RANGE REFERENCE UNITS LAB L506.1000 ng/mL Normal Vitamin D 26.1 25-OH Result Comment: Vitamin D 25(OH) Status Range Deficiency <20 ng/mL (50nmol/L) Insuffciency 20 - 30 ng/mL (50 - 75 nmol/L) Sufficiency 30 - 100 ng/mL (75 - 250 nmol/L) Toxicity >100 ng/mL (>250 nmol/L) Performed By: #### L506.1000 #### [facility] [address] [place], [place], [address] CREATININE, URINE Collected: 11/30/2017 Status: F Source: [place] (RANDOM) 9:56 AM [facility] REPOSITORY TYPE CODE TESTS RESULT OUT OF RANGE REFERENCE UNITS LAB L501.1200 NO RANGE EST. mg/dL Normal UR CREAT 26.30 Performed By: #### L501.1200 #### [facility] [address] [place], [place], [address] COMPREHENSIVE METABOLIC Collected: 11/30/2017 Status: F Source: [place] PROFIL 9:56 AM [facility] REPOSITORY TYPE CODE TESTS RESULT OUT OF RANGE REFERENCE UNITS LAB L501.0100 70-110 mg/dL Low GLU 61 LAB L501.1000 7-18 mg/dL High BUN 21 LAB L501.1100 0.55-1.02 mg/dL High 1.45 CREAT,SERUM Result Comment: The validity of the calculated GFR AND GFRAA in patients over 70 years has not been determined. Clinical correlation is essential. LAB L501.1110 >60 mL/min Low EST GFR 38 Result Comment: Non- GFR Calc LAB L501.1115 >60 mL/min Low EST GFR - AA 46 Result Comment: GFR Calc LAB L501.1300 10-20 RATIO Normal BUN/CRE 14.5 LAB L501.1500 6.4-8.2 g/dL T Normal PROT 7.1 LAB L501.1800 3.4-5.0 g/dL Normal ALB 3.6 Result Comment: Please note revised Albumin AND Globulin reference range effective 2017. LAB L501.1950 2.2-4.2 g/dL Normal GLOB 3.5 LAB L501.2000 0.9-2.4 RATIO Normal A/G 1.0 LAB L501.2200 8.5-10.1 mg/dL Normal CA 9.6 LAB L501.4100 15-37 U/L Normal AST 18 LAB L501.4305 45-117 U/L Normal ALK P 83 LAB L501.4405 12-78 U/L Normal ALT 20 LAB L501.4600 0.20-1.00 mg/dL Normal T BILI 0.20 LAB L501.5300 136-145 mmol/L Normal NA 143 LAB L501.5600 3.5-5.1 mmol/L Normal K 3.9 LAB L501.5900 98-107 mmol/L High CL 111 LAB L501.6100 21.0-32.0 mmol/L Normal CO2 25.0 LAB L501.6200 5-15 Normal GAP 7 Performed By: #### L500.4050, L501.2300 #### [facility] [address] [place], [place], [address] PHOSPHORUS Collected: 11/30/2017 Status: F Source: [place] 9:56 AM [facility] REPOSITORY TYPE CODE TESTS RESULT OUT OF RANGE REFERENCE UNITS LAB L501.2300 2.5-4.9 mg/dL Normal PHOS 2.6 Performed By: #### L500.4050, L501.2300 #### [facility] [address] [place], [address] CALCIUM IONIZED Collected: 11/30/2017 Status: F Source: [place] 9:56 AM [facility] REPOSITORY TYPE CODE TESTS RESULT OUT OF REFERENCE UNITS RANGE LAB L3100.9600 4.5-5.6 mg/dL High IONIZED CA 5.7 Result Comment: Performed at: - [facility] [address] [id number] Spiritual Counselor: Hunter Myers PhD, Phone: [phone] Performed By: #### L3100.9600 #### [facility] (refer to report for specific site) refer to report for address and phone number VITAMIN D 1,25-DIHYDROXY Collected: 11/30/2017 Status: F Source: [place] 9:56 AM [facility] REPOSITORY TYPE CODE TESTS RESULT OUT OF RANGE REFERENCE UNITS LAB L3300.0960 19.9-79.3 pg/mL Normal VITD ,25 31.4 11636 Result Comment: Performed at: - [facility] [id number] Spiritual Counselor: Bruce Mcgee MD, Phone: [phone] Performed By: #### L3300.0960 #### [facility] (refer to report for specific site) refer to report for address and phone number PROGRESS Observed: 11/23/2017 Status: COMPLETED Source: [place] 3:08 PM [facility] REPOSITORY HNO ID: [id number] Author: Turner Strauss Service: (none) Author Type: Psychologist Type: Progress Notes Filed: 11/23/2017 3:14 PM Note Text: [facility] Progress Note Fior Hernandez 11/23/2017 [id number] Provider: Turner Strauss, PHD CPT Code: 41255 Psychotherapy 38-52 minutes Time: Approximately 50 minutes was spent in therapy. Parties Present: Patient Patient Presentation/Concerns: pt doing a bit better... slightly elevated but stable mood pt starting to be more active in her life and living TODAY: Shared poetry Discussed holiness from [employer]ec[employer] to more of a sense of life w/in and w/out spirituality discussed parents and their differences in their influence on her growing up doing well with Dr Feliciano who is slowly moving towards keeping meds more minimal effective dosages and how he is doing it is working well so far reports pt doing progressively better Mental Status: Mood: variable Affect: mood-congruent Thoughts/Associations:goal directed Suicidal/Homicidal Ideation: None expressed or evidenced Other Observations: None Therapy Focus Self-care, Stress management, Mood/affect regulation, Interpersonal and Self-esteem MEDICATIONS: Per medical record: No current outpatient prescriptions on file. No current facility-administered medications for this visit. Psychiatric Medication Issues: see medical record DIAGNOSIS: [place] I Bipolar I r/o Schizophrenia as a separate event ?? [place] II: deferred [place] III: see med notes.... Diabetes controlled [place] IV: periods of depression anxiety corina and psychosis [place] V: 51 Treatment Modality/Interventions: Cognitive Behavioral Reassurance/Supportive Insight oriented Problem solving TREATMENT ASSESSMENT/PROGRESS: . Progressing satisfactorily. TREATMENT PLAN/GOALS: Continue in therapy focusing on self- care, affect management and self-esteem. Next appointment: as scheduled Turner Strauss, PHD ALLERGIES ALLERGIES DATE TYPE / CODE NAME / CODE REACTION SEVERITY SOURCE 06/29/2018 Drug No Known Unknown [facility] Allergy/4160 Allergies/F00 Hospital 21387(SNOMED [id number](RXNOR Repository CT) M) ENCOUNTERS ENCOUNTERS ADMIT/DISCHARGE ACCOUNT NUMBER ADMITTING ENCOUNTER LOCATION SOURCE CLASS 10/21/2018 [id number] [facility] ding:LAB Repository 10/18/2018/10/18/20 [id number] Ambulatory BBuilding:[address] Repository 10/07/2018/10/08/20 [id number] Ambulatory [address] Repository 10/07/2018 [id number] Ambulatory [facility] ding:US Repository 10/01/2018/10/01/20 [id number] Ambulatory BBuilding:[address] Repository 09/29/2018 [id number] Ambulatory [facility] ding:LABSPEC Repository 09/27/2018 [id number] Ambulatory [facility] ding:LAB Repository 09/23/2018/10/08/20 [id number] Ambulatory [address] ding:LAB Repository 09/02/2018/09/08/20 [id number] Ambulatory [address] ding:LAB Repository 08/09/2018 [id number] Ambulatory [facility] ding:US Repository 08/02/2018 [id number] Ambulatory [facility] ding:LAB Repository 07/22/2018/07/22/20 [id number] Ambulatory [address] ding:LAB Repository 07/15/2018 [id number] [facility] ding:LABSPEC Repository 07/13/2018 [id number] [facility] ding:LAB Repository 07/10/2018 [id number] [facility] ding:LAB.FUT Repository URE 06/29/2018/07/06/20 [id number] Johnson, Inpatient Nikki [place] 18 Renny Encounter [facility] ding:YW9Noby Repository : IX049Tbh: 1 06/29/2018 [id number] Johnson, Ambulatory BMSBuilding: Nikki Renny BMS.[facility] Repository 06/29/2018 [id number] [facility], Ambulatory BMSBuilding: Nikki Renny BMS.[facility] Repository 06/29/2018 [id number] [facility], Ambulatory BMSBuilding: Nikki Renny BMS.[facility] Repository 06/29/2018 [id number] [facility], Ambulatory BMSBuilding: [place] Renny BMS.[facility] Repository 06/29/2018 [id number] [facility], Ambulatory BMSBuilding: [place] Renny BMS.[facility] Repository 06/29/2018 [id number] [facility], Ambulatory BMSBuilding: Nikki Renny BMS.[facility] Repository 06/29/2018 [id number] [facility], Ambulatory BMSBuilding: [place] Renny BMS.[facility] Repository 06/29/2018 [id number] [facility], Ambulatory BMSBuilding: Nikki Renny BMS.[facility] Repository 06/28/2018/06/28/20 [id number] Ambulatory [address] ding:LAB Repository 06/16/2018/06/25/20 [id number] [facility] Building:[address] Room: [place] [address]Bed: A [facility] Repository 05/03/2018/05/04/20 [id number] Ambulatory [address] Repository 03/25/2018/03/29/20 [id number] Ambulatory [address] Repository 03/23/2018 [id number] Ambulatory [facility] ding:LAB Repository 02/12/2018/02/16/20 [id number] Ambulatory [address] Repository 01/26/2018/01/28/20 [id number] Ambulatory [address] Repository 01/08/2018/01/09/20 [id number] Ambulatory [address] ding:RAD Foundation Repository 12/24/2017 [id number] [facility] ding:LAB Repository 12/18/2017/12/23/19 [id number] Ambulatory [address] Repository 12/02/2017 [id number] [facility] ding:LAB Repository 11/30/2017 [id number] [facility] ding:LAB Repository 11/23/2017/11/24/19 [id number] Ambulatory [address] Repository PAYERS PAYERS ENCOUNTER GUARANTOR PAYER SUBSCRIBER SOURCE 10/21/2018 FIOR Smith Primary Insurance:JOANA CHILDRESS Luis [place] [id number] [facility] Robert Number: RIGGSDOB: [place] MEBJJKJYEffective [id number] Hospital 92575Qrk: (099) Date:1791-01-07VT BOX Repository [phone] () [id number] LUPE SAMANIEGO [address]JP: 10/21/2018 [facility]SELF [facility] INSURANCEPolicy Number: Hospital Effective Repository Date:2018-10-11 10/18/2018 FIOR Smith Primary [facility] Smith [facility] RIGGSDOB: MEDICARE HMO AMEPolicy RIGGSDOB: [facility] Number: [id number] Repository [facility]BJJKJYEffe[place], [place] Date:2018-10-12 [place] [address]~FIORAnna [id number] Name:NPO 52227Zcl: [phone]@[facility] MED[facility] CENTERDuongMADISON MEDICAL CENTERradha [address] LUPE Samaniego [phone] l: [phone]: [phone]) (HP) (hp) [phone] () 10/07/2018 FIOR Smith Primary Insurance:JOANA CHILDRESS Luis [place] [id number] ILIR [facility]ILDREN'S HOSPITALThaiicpaul Number: RIGGSDOB: [place] MEBJJKJYEffective [id number] Hospital 99508Wtf: (330) Date:6237-89-16NG BOX Repository [phone] () 108161JZ Á[place], [place] [address]YI: 10/07/2018 Secondary NOT GIVENUNK [place] Insurance:SELF PAY Community INSURANCEPolicy Number: Hospital Effective Repository Date:2018-10-05 10/01/2018 FIOR A Primary Insurance:JOANA Smith [facility] RIGGSDOB: MEDICARE HMO AMEPolicy RIGGSDOB: [facility] Number: [id number] Repository G[place]HE VTBJJKJYEffeP[place], [place] Date:2018-09-14 [place] [address]~FIOR8 [id number] Name:O 85348Iih: [phone] [address], [place] 386-7634 l: [phone]: [phone] () (HP) [phone] () 09/29/2018 FIOR Smith Primary Insurance:AETIVANA CHILDRESS A Nikki [id number] GASCHE MCRPolicy Number: RIGGSDOB: [place] MEBJJKJYEffective [id number] Hospital 84539Jdz: (330) Date:6058-41-25BG BOX Repository [phone] () 416523UUCLIM[place], [place] [address]AL: 09/29/2018 Secondary NOT GIVENUNK [place] Insurance:SELF PAY Community INSURANCEPolicy Number: Hospital Effective Repository Date:2018-09-29 09/27/2018 FIOR A Primary Insurance:AETNA FIOR A Nikki [id number] G[place] MCRPolicy Number: RIGGSDOB: [facility] HospitalBJJKJYEffective [id number] Hospital 710[address]Dsr: (330) Date:6183-30-88VM BOX Repository [phone] (HP) [id number] [place] [address]UQ: 09/27/2018 Secondary NOT GIVENUNK [place] Insurance:SELF PAY Community INSURANCEPolicy Number: Hospital Effective Repository Date:2018-09-27 09/23/2018 FIOR A Primary Insurance:AETNA FIOR Smith [place] [id number] GASCHE MCRPolicy Number: RIGGSDOB: [place] MEBJJKJYEffective [id number] Hospital 90047Ljf: (330) Date:7831-43-04XE BOX Repository [phone] () [id number] Á[place] [address]HK: 09/23/2018 Secondary NOT GIVENUNK [place] Insurance:SELF PAY Community INSURANCEPolicy Number: Hospital Effective Repository Date:2018-09-09 09/02/2018 FIOR A Primary Insurance:AETIVANA Smith Nikki [id number] GASCHE MCRPolicy Number: RIGGSDOB: [place] MEBJJKJYEffective [id number] Hospital 87963Dcs: (330) Date:3882-89-90OJ BOX Repository [phone] () 512439YBCLIMAX, [place] [address]BK: 09/02/2018 Secondary NOT GIVENUNK Nikki Insurance:SELF PAY Community INSURANCEPolicy Number: Hospital Effective Repository Date:2018-08-11 08/09/2018 FIOR A Primary Insurance:KRISTITNA FIOR Smith [place] [id number] GASCHE MCRPolicy Number: RIGGSDOB: [place] MEBJJKJYEffective [id number] Hospital 27717Ovu: (330) Date:9166-38-03VH BOX Repository [phone] (HP) 374455YH Á[place] [address]LA: 08/09/2018 Secondary NOT GIVENUNK [place] Insurance:SELF PAY Community INSURANCEPolicy Number: Hospital Effective Repository Date:2018-08-05 08/02/2018 FIOR A Primary Insurance:AETNA FIOR Smith [place] [id number] GASCHE MCRPolicy Number: RIGGSDOB: [place] MEBJJKJYEffective [id number] Hospital 98509Ylf: (330) Date:7558-62-53DP BOX Repository [phone] () 052453ZCCLIMAX, [place] [address]JV: 08/02/2018 Secondary NOT GIVENUNK Nikki Insurance:SELF PAY Community INSURANCEPolicy Number: Hospital Effective Repository Date:2018-08-02 07/22/2018 FIOR A Primary Insurance:AETNA FIOR A [place] IWONA MCRPolicy Number: [facility] [id number] G[place] MEBJJKJYEffective RIGGSDOB: [place] Date:3253-35-73KO [address]-47-89QGB Repository [address]Abj: [phone], [place] [phone] () [address]QZ: 07/22/2018 Secondary NOT GIVENUNK [place] Insurance:SELF PAY Community INSURANCEPolicy Number: Hospital Effective Repository Date:2018-07-13 07/15/2018 FIOR A Primary Insurance:AETNA FIOR A Nikki [id number] GASC[place] MCRPolicy Number: RIGGSDOB: [place] MEBJJKJYEffective [id number] Hospital 07156Bej: (330) Date:5446-81-12WE BOX Repository [phone] () 652898WKCLIMAX, [place] [address]CQ: 07/15/2018 Secondary NOT GIVENUNK Nikki Insurance:SELF PAY Community INSURANCEPolicy Number: Hospital Effective Repository Date:2018-07-15 07/13/2018 FIOR A Primary Insurance:AETNA FIOR A [place] IWONA MCRPolicy Number: [facility] [id number] G[place] MEBJJKJYEffective RIGGSDOB: [place] Date:4925-96-88JO [address]-15-29WRU Repository 9[address]Uob: [phone] [place] [phone] () [address]YV: 07/13/2018 Secondary NOT GIVENUNK [place] Insurance:SELF PAY Community INSURANCEPolicy Number: Hospital Effective Repository Date:2018-07-13 07/10/2018 FIOR A Primary Insurance:AEBEAU RUVALCABADENISADIAZ MCRPolicy Number: [facility] [id number] [place] MEBJJKJYEffective RIGGSDOB: [facility] [place] Date:9150-56-39NH [address] 1976-67-12IKS Repository 629[address]Rbq: [phone] [place] [phone] (HP) [address]JH: 07/10/2018 Secondary NOT GIVENUNK [place] Insurance:SELF PAY Community INSURANCEPolicy Number: Hospital Effective Repository Date:2018-07-07 06/29/2018 FIOR A Primary Insurance:KRISTITIVANA Jordan SAWYERDIAZ MCRPolicy Number: [facility] [id number] G[place] BJJKJYEffective RIGGSDOB: [facility] [place] Date:3240-78-99IF [address]-66-11HIH Repository [address]Tyq: [phone] [place] [phone] () [address]BG: 06/29/2018 Secondary NOT GIVENUNK [place] Insurance:SELF PAY Community INSURANCEPolicy Number: Hospital Effective Repository Date:2018-06-29 06/29/2018 FIOR A Primary Insurance:JOANA RUVALCABAEULOGIO MCRPolicy Number: [facility] [id number] [place] MEBJJKJYEffective RIGGSDOB: [facility] [place] Date:3531-00-34LA [address]-64-67OQV Repository [address]Qyd: [phone] [place] [phone] (HP) [address]NE: 06/29/2018 Secondary NOT GIVENUNK Nikki Insurance:SELF PAY Community INSURANCEPolicy Number: Hospital Effective Repository Date:2018-06-29 06/29/2018 FIOR Smith Primary Insurance:JOANA RUVALCABADENISADIAZ MCRPolicy Number: [facility] [id number] GASNIMCO VOBJJKJYEffective RIGGSDOB: [facility] Date:0251-19-83MY [address]-58-36TPY Repository 139[address]Rpx: [phone] LUPE SAMANIEGO [phone] () [address]JX: 06/29/2018 Secondary NOT GIVENUNK Nikki Insurance:SELF PAY Community INSURANCEPolicy Number: Hospital Effective Repository Date:2018-06-29 06/29/2018 FIOR Smith Primary Insurance:TREMAYNEIVANA Smith Nikki WILCOX MCRPolicy Number: [facility] [id number] GASNIMCO VOBJJKJYEffective RIGGSDOB: [facility] Date:1941-03-41QK [address]-61-09YYZ Repository [address]Cbu: [phone] [place] [phone] () [address]QH: 06/29/2018 Secondary NOT GIVENUNK [place] Insurance:SELF PAY Community INSURANCEPolicy Number: Hospital Effective Repository Date:2018-06-29 06/29/2018 FIOR Smith Primary Insurance:KRISTIPoojaIVANA Smith Nikki IWONA MCRPolicy Number: [facility] [id number] GASNIMCO VOBJJKJYEffective RIGGSDOB: [facility] Date:8257-55-95BW [address]-13-07ALX Repository 318[address]Yrq: [phone] LUPE SAMANIEGO [phone] () [address]FV: 06/29/2018 Secondary NOT GIVENUNK [place] Insurance:SELF PAY Community INSURANCEPolicy Number: Hospital Effective Repository Date:2018-06-29 06/29/2018 FIOR Smith Primary Insurance:AETIVANA Jordan SAWYERDIAZ MCRPolicy Number: [facility] [id number] GASCHE BJJKJYEffective RIGGSDOB: [facility] Date:1582-07-35KJ [address]-91-22PXI Repository [address]Ico: [phone], [place] [phone] () [address]ST: 06/29/2018 Secondary NOT GIVENUNK Nikki Insurance:SELF PAY Community INSURANCEPolicy Number: Hospital Effective Repository Date:2018-06-29 06/29/2018 FIOR Smith Primary Insurance:KRISTIPoojaIVANA Smith [place] IWONA MCRPolicy Number: [facility] [id number] GASCHE MEBJJKJYEffective RIGGSDOB: [facility] Date:8385-50-54CY [address]-98-00CPB Repository [address]26[address]Dfl: [phone], [place] [phone] () [address]JP: 06/29/2018 Secondary NOT GIVENUNK [place] Insurance:SELF PAY Community INSURANCEPolicy Number: Hospital Effective Repository Date:2018-06-29 06/29/2018 FIOR Smith Primary Insurance:TREMAYNEIVANA FIOR A [place] IWONA MCRPolicy Number: [facility] [id number] G[place]HE BJJKJYEffective RIGGSDOB: [facility] [place] Date:5975-01-34JP [address]-60-40XWA Repository 749[address]Bbm: [phone], [place] [phone] () [address]EL: 06/29/2018 Secondary NOT GIVENUNK Nikki Insurance:SELF PAY Community INSURANCEPolicy Number: Hospital Effective Repository Date:2018-06-29 06/29/2018 FIOR Luis Primary Insurance:KRISTIPoojaIVANA Smith [place] IWONA MCRPolicy Number: [facility] [id number] GASCHE MEBJJKJYEffective RIGGSDOB: [facility] Date:3968-94-19NQ [address]-86-75AHY Repository 19[address]Rzw: [phone] LPUE SAMANIEGO [phone] () [address]JK: 06/29/2018 Secondary NOT GIVENUNK [place] Insurance:SELF PAY Community INSURANCEPolicy Number: Hospital Effective Repository Date:2018-06-29 06/28/2018 FIOR A Primary Insurance:AETIVANA Smith [facility] MCRPolicy Number: [facility] [id number] [facility] MEBJJKJYEffective RIGGSDOB: [place] Date:9656-37-70XK [address]-99-53OIK Repository 00847Tqa: [phone] LUPE SAMANIEGO [phone] () [address]TA: 06/28/2018 Secondary NOT GIVENUNK Nikki Insurance:SELF PAY Community INSURANCEPolicy Number: Hospital Effective Repository Date:2018-06-28 06/16/2018 FIOR Primary FIOR [facility] Insurance:MEDICARE [facility] RIGGSDOB: AETNA PPOPolicy Number: RIGGSDOB: [facility] [id number] [id number] [facility] Date:Plan Name:[place], [place] [address]Cej: [phone]: () [phone] () 03/23/2018 Fior A Primary Insurance:AETIVANA Smith [facility] MCRPolicy Number: [facility] [id number] [facility] MEBJJKJYEffective RiggsDOB: [place] Date:1678-72-54JN [address]-78-29YNB Repository 448[address]Akx: [phone] LUPE SAMANIEGO [phone] () [address]GT: 03/23/2018 Secondary NOT GIVENUNK Nikki Insurance:SELF PAY Community INSURANCEPolicy Number: Hospital Effective Repository Date:2018-03-23 01/08/2018 FIOR Smith Primary Insurance:JOANA Smith [facility] RIGGSDOB: MEDICARE HMO [facility] NIESHAB: [facility] Number: [id number] Repository GASCHE BJJKJYEffective [place], [place] Date:2018-01-05 [place] [address]~DORA 9389-38-13Ynel Name:MILLIE [address]29[address]Bgc: [phone] [address], [place] 747-5582 l: [phone]: [phone]) (HP) [phone] (WP) (HP) (WP) 12/24/2017 Fior Smith Primary Insurance:[facility] MCRPolicy Number: [facility] [id number] Ilir MEBJJKJYEffective RiggsDOB: [place] Date:0932-88-90OM [address]-80-48NJV Repository [address]Ndp: [phone], [place] [phone] (HP) [address]BD: 12/24/2017 Secondary NOT GIVENUNK [place] Insurance:SELF PAY Community INSURANCEPolicy Number: Hospital Effective Repository Date:2017-12-24 12/02/2017 Fior Smith Primary Insurance:TREMAYNEIVANA Childress Luis [facility] MCRPolicy Number: [facility] [id number] Ilir MEBJJKJYEffective RiggsDOB: [place] Date:8656-21-83FI [address] 05[address]-94-81GRQ Repository [address]Fay: [phone], [place] [phone] (HP) [address]WZ: 12/02/2017 Secondary NOT GIVENUNK Nikki Insurance:SELF PAY Community INSURANCEPolicy Number: Hospital Effective Repository Date:2017-12-02 11/30/2017 Fior Smith Primary Insurance:JOANA Jordan [facility] [id number] [facility] MEBJJKJYEffemary rutan hospital DavidDOB: [place] Date:2945-39-85MO [address]-04-85XDX Repository 84[address]Liu: [phone] LUPE SAMANIEGO [phone] (TZ) [address]WP: 11/30/2017 Secondary NOT GIVENUNK Nikki Insurance:SELF PAY [facility] INSURANCEPolicy Number: [facility] Repository Date:2017-11-30
== END ==
PROVIDERS: Family Provider Nurse Practitioner Family; PCP Nurse Practitioner Family; Referring Provider Internal Medicine Endocrinology, Diabetes & Metabolism; Visit Provider Internal Medicine Endocrinology, Diabetes & Metabolism
DX: E04.2 Nontoxic multinodular goiter (principal); R79.89 Other specified abnormal findings of blood chemistry; E83.52 Hypercalcemia; E23.1 Drug-induced hypopituitarism
CPT/HCPCS: 36415; 76536; 80048; 84439; 84443; 84445; 84481; 86376

== ENCOUNTER 2018-11-04 12:58 | Outpatient (RCR) | payer MEDICARE, SELFPAY ==
[2018-10-14 14:08] LABS: BUN 32 mg/dL (7-18); Creatinine, Serum 1.32 mg/dL (0.55-1.02); EST Glomerular Filtration Rate 42 mL/min (>60); Glucose 77 mg/dL (74-106)
[2018-10-14 14:09] LABS: Anion Gap 5 (5-15); BUN/Creat Ratio 24.2 RATIO (10-20); Calcium,Total 9.6 mg/dL (8.5-10.1); Chloride 107 mmol/L (98-107); Est Glom Filt Rate - Afr Amer 51 mL/min (>60); Potassium 4.3 mmol/L (3.5-5.1); Sodium Level 141 mmol/L (136-145)
[2018-10-21 14:14] LABS: Anion Gap 7 (5-15); BUN 33 mg/dL (7-18); BUN/Creat Ratio 23.2 RATIO (10-20); Calcium,Total 9.2 mg/dL (8.5-10.1); Chloride 110 mmol/L (98-107); Creatinine, Serum 1.42 mg/dL (0.55-1.02); EST Glomerular Filtration Rate 39 mL/min (>60); Est Glom Filt Rate - Afr Amer 47 mL/min (>60); Glucose 91 mg/dL (74-106); Potassium 4.5 mmol/L (3.5-5.1); Sodium Level 142 mmol/L (136-145)
[2018-10-28 14:34] LABS: Anion Gap 8 (5-15); BUN 38 mg/dL (7-18); Calcium,Total 9.7 mg/dL (8.5-10.1); Chloride 110 mmol/L (98-107); Creatinine, Serum 1.46 mg/dL (0.55-1.02); EST Glomerular Filtration Rate 38 mL/min (>60); Est Glom Filt Rate - Afr Amer 46 mL/min (>60); Glucose 76 mg/dL (74-106); Potassium 4.1 mmol/L (3.5-5.1); Sodium Level 145 mmol/L (136-145)
[2018-11-04 13:57] LABS: Anion Gap 5 (5-15); BUN 35 mg/dL (7-18); BUN/Creat Ratio 22.3 RATIO (10-20); Chloride 108 mmol/L (98-107); Creatinine, Serum 1.57 mg/dL (0.55-1.02); EST Glomerular Filtration Rate 35 mL/min (>60); Est Glom Filt Rate - Afr Amer 42 mL/min (>60); Glucose 91 mg/dL (74-106); Potassium 4.3 mmol/L (3.5-5.1); Sodium Level 140 mmol/L (136-145)
== END 2018-11-04 13:00 | disposition home or self-care (01) ==
LOC: LAB 12:58
PROVIDERS: Family Provider Nurse Practitioner Family; PCP Nurse Practitioner Family
DX: Z79.899 Other long term (current) drug therapy (principal)
CPT/HCPCS: 36415; 80048

== ENCOUNTER 2018-12-09 12:57 | Outpatient (RCR) | payer MEDICARE, SELFPAY ==
[2018-11-11 14:47] LABS: Anion Gap 10 (5-15); BUN 32 mg/dL (7-18); BUN/Creat Ratio 22.4 RATIO (10-20); Chloride 103 mmol/L (98-107); Creatinine, Serum 1.43 mg/dL (0.55-1.02); EST Glomerular Filtration Rate 39 mL/min (>60); Est Glom Filt Rate - Afr Amer 47 mL/min (>60); Glucose 89 mg/dL (74-106); Potassium 4.2 mmol/L (3.5-5.1); Sodium Level 140 mmol/L (136-145)
[2018-11-18 14:18] LABS: Anion Gap 10 (5-15); BUN 37 mg/dL (7-18); BUN/Creat Ratio 23.4 RATIO (10-20); Calcium,Total 9.8 mg/dL (8.5-10.1); Chloride 105 mmol/L (98-107); Creatinine, Serum 1.58 mg/dL (0.55-1.02); EST Glomerular Filtration Rate 34 mL/min (>60); Est Glom Filt Rate - Afr Amer 42 mL/min (>60); Glucose 82 mg/dL (74-106); Potassium 4.6 mmol/L (3.5-5.1); Sodium Level 140 mmol/L (136-145)
[2018-11-25 13:48] LABS: Hematocrit 43.1 % (37-47); Hemoglobin 13.7 g/dl (12.0-15.0); Mean Corp Hgb Conc 31.8 g/gl (32-36); Mean Corpuscular Hgb 30.6 pg (27.0-32.0); Mean Corpuscular Volume 96.2 fL (81-99); Mean Platelet Vol. 8.6 fl (6.2-12.0); Platelet Count 257 K/mm3 (150-450); RBC Distribution Width CV 13.1 % (11.6-14.6); RBC Distribution Width SD 45.9 fl (35.1-43.9); Red Blood Count 4.48 M/mm3 (4.2-5.4); Scan Indicated on CBC? Y/N NO; White Blood Count 7.8 K/mm3 (4.4-11.0)
[2018-11-25 13:51] LABS: Protein, Urine (Random) 16.2 mg/dL (<11.9); Protein:Creat Ratio 1019 mg/g CRE (0-200)
[2018-11-25 14:14] LABS: Albumin, Serum 3.9 g/dL (3.2-5.0); BUN 44 mg/dL (7-18); BUN/Creat Ratio 30.8 RATIO (10-20); Calcium,Total 9.8 mg/dL (8.5-10.1); Chloride 109 mmol/L (98-107); Creatinine, Serum 1.43 mg/dL (0.55-1.02); EST Glomerular Filtration Rate 39 mL/min (>60); Est Glom Filt Rate - Afr Amer 47 mL/min (>60); Glucose 84 mg/dL (74-106); Phosphorus 3.9 mg/dL (2.5-4.9); Sodium Level 144 mmol/L (136-145)
[2018-12-02 13:49] LABS: Anion Gap 7 (5-15); BUN 30 mg/dL (7-18); Calcium,Total 9.8 mg/dL (8.5-10.1); Chloride 105 mmol/L (98-107); Creatinine, Serum 1.43 mg/dL (0.55-1.02); EST Glomerular Filtration Rate 39 mL/min (>60); Est Glom Filt Rate - Afr Amer 47 mL/min (>60); Glucose 83 mg/dL (74-106); Potassium 4.7 mmol/L (3.5-5.1); Sodium Level 135 mmol/L (136-145)
[2018-12-09 13:39] LABS: Anion Gap 10 (5-15); BUN 40 mg/dL (7-18); BUN/Creat Ratio 24.5 RATIO (10-20); Calcium,Total 10.1 mg/dL (8.5-10.1); Chloride 108 mmol/L (98-107); Creatinine, Serum 1.63 mg/dL (0.55-1.02); EST Glomerular Filtration Rate 33 mL/min (>60); Est Glom Filt Rate - Afr Amer 40 mL/min (>60); Glucose 59 mg/dL (74-106); Potassium 4.4 mmol/L (3.5-5.1); Sodium Level 145 mmol/L (136-145)
== END 2018-12-09 13:57 | disposition home or self-care (01) ==
LOC: LAB 12:57
PROVIDERS: Family Provider Nurse Practitioner Family; PCP Nurse Practitioner Family
DX: N18.3 Chronic kidney disease, stage 3 (moderate) (principal); Z79.899 Other long term (current) drug therapy
CPT/HCPCS: 36415; 80048; 80069; 82570; 84156; 85027

== ENCOUNTER → 2018-12-28 13:01 | Outpatient (CLI) | payer MEDICARE, SELFPAY ==
[2018-12-28 13:36] LABS: Absolute Lymphocyte Count 1.32 X10^3/ul (0.83-4.51); Absolute Neutrophil Count 4.6 X10^3/uL (2.0-7.7); Basophil# 0.01 X10^3/uL; Basophil% 0.2 % (0-1); Eosinophil# 0.08 X10^3/uL; Eosinophils% 1.2 % (0-5); Hematocrit 41.2 % (37-47); Hemoglobin 12.9 g/dl (12.0-15.0); Lymphocyte # 1.32 X10^3/ul (4.0); Lymphocyte % 19.9 % (19-41); Mean Corp Hgb Conc 31.3 g/gl (32-36); Mean Corpuscular Hgb 30.5 pg (27.0-32.0); Mean Corpuscular Volume 97.4 fL (81-99); Mean Platelet Vol. 8.5 fl (6.2-12.0); Monocyte# 0.65 X10^3/uL; Monocyte% 9.8 % (0-10); Neutrophil # 4.56 X10^3/uL (2.7-7.7); Neutrophil % 68.7 % (47-70); Platelet Count 226 K/mm3 (150-450); RBC Distribution Width CV 13.2 % (11.6-14.6); RBC Distribution Width SD 46.1 fl (35.1-43.9); Red Blood Count 4.23 M/mm3 (4.2-5.4); White Blood Count 6.6 K/mm3 (4.4-11.0)
[2018-12-28 13:42] LABS: POSITIVE COUNT NO; POSITIVE DIFFERENTIAL NO; POSITIVE MORPHOLOGY NO
[2018-12-28 13:50] LABS: Calcium, Urine (Random) < 5.0 mg/dL (Not Estab.)
[2018-12-28 14:06] LABS: ALB/GLOB Ratio 1.1 RATIO (0.9-2.4); AST(SGOT) 14 U/L (15-37); Alanine Aminotransfer ALT/SGPT 22 U/L (13-56); Albumin, Serum 3.8 g/dL (3.2-5.0); Alkaline Phosphatase 87 U/L (45-117); Anion Gap 9 (5-15); BUN 37 mg/dL (7-18); BUN/Creat Ratio 23.6 RATIO (10-20); Calcium,Total 9.4 mg/dL (8.5-10.1); Chloride 108 mmol/L (98-107); Creatinine, Serum 1.57 mg/dL (0.55-1.02); EST Glomerular Filtration Rate 35 mL/min (>60); Est Glom Filt Rate - Afr Amer 42 mL/min (>60); Ferritin 75 ng/mL (8-252); Globulin 3.4 g/dL (2.2-4.2); Glucose 86 mg/dL (74-106); Iron 69 ug/dL (50-170); Iron Binding Capacity,Total 331 ug/dL (250-450); Magnesium 2.3 mg/dL (1.6-2.6); Phosphorus 3.3 mg/dL (2.5-4.9); Potassium 4.5 mmol/L (3.5-5.1); Protein, Total 7.2 g/dL (6.4-8.2); Sodium Level 142 mmol/L (136-145)
[2018-12-28 14:29] LABS: PTHIN 89.2 pg/mL (18.4-80.1)
== END ==
PROVIDERS: Family Provider Nurse Practitioner Family; PCP Nurse Practitioner Family; Referring Provider Internal Medicine Endocrinology, Diabetes & Metabolism; Visit Provider Internal Medicine Endocrinology, Diabetes & Metabolism
DX: E21.0 Primary hyperparathyroidism (principal); R79.89 Other specified abnormal findings of blood chemistry; Z86.39 Personal history of other endocrine, nutritional and metabolic disease
CPT/HCPCS: 36415; 80053; 82330; 82340; 82570; 82728; 83540; 83550; 83735; 83970; 84100; 84443; 85025

== ENCOUNTER 2019-01-06 08:37 | Outpatient (RCR) | payer MEDICARE, SELFPAY ==
[2018-12-16 14:54] LABS: Anion Gap 5 (5-15); BUN 36 mg/dL (7-18); BUN/Creat Ratio 25.5 RATIO (10-20); Calcium,Total 9.5 mg/dL (8.5-10.1); Chloride 112 mmol/L (98-107); Creatinine, Serum 1.41 mg/dL (0.55-1.02); EST Glomerular Filtration Rate 39 mL/min (>60); Est Glom Filt Rate - Afr Amer 48 mL/min (>60); Glucose 82 mg/dL (74-106); Potassium 4.4 mmol/L (3.5-5.1); Sodium Level 145 mmol/L (136-145)
[2018-12-23 14:09] LABS: Anion Gap 7 (5-15); BUN 42 mg/dL (7-18); Calcium,Total 9.5 mg/dL (8.5-10.1); Chloride 108 mmol/L (98-107); Creatinine, Serum 1.68 mg/dL (0.55-1.02); EST Glomerular Filtration Rate 32 mL/min (>60); Est Glom Filt Rate - Afr Amer 39 mL/min (>60); Glucose 97 mg/dL (74-106); Potassium 4.8 mmol/L (3.5-5.1); Sodium Level 141 mmol/L (136-145)
[2019-01-06 09:59] LABS: Anion Gap 6 (5-15); BUN 39 mg/dL (7-18); BUN/Creat Ratio 21.8 RATIO (10-20); Calcium,Total 9.8 mg/dL (8.5-10.1); Chloride 111 mmol/L (98-107); Creatinine, Serum 1.79 mg/dL (0.55-1.02); EST Glomerular Filtration Rate 30 mL/min (>60); Est Glom Filt Rate - Afr Amer 36 mL/min (>60); Free T3 2.7 pg/mL (2.18-3.98); Glucose 112 mg/dL (74-106); Potassium 3.8 mmol/L (3.5-5.1); Sodium Level 142 mmol/L (136-145)
[2019-01-08 13:54] LABS: Thyroid Stim Immunoglob 0.41 IU/L (0.00-0.55)
== END 2019-01-06 14:32 | disposition home or self-care (01) ==
LOC: LAB 08:37
PROVIDERS: Family Provider Nurse Practitioner Family; PCP Nurse Practitioner Family
DX: Z79.899 Other long term (current) drug therapy (principal)
CPT/HCPCS: 36415; 80048; 82533; 84439; 84445; 84481

== ENCOUNTER 2019-02-03 12:51 | Outpatient (RCR) | payer MEDICARE, SELFPAY ==
[2019-01-13 13:35] LABS: Anion Gap 5 (5-15); BUN 35 mg/dL (7-18); BUN/Creat Ratio 24.6 RATIO (10-20); Calcium,Total 9.4 mg/dL (8.5-10.1); Chloride 108 mmol/L (98-107); Creatinine, Serum 1.42 mg/dL (0.55-1.02); EST Glomerular Filtration Rate 39 mL/min (>60); Est Glom Filt Rate - Afr Amer 47 mL/min (>60); Glucose 91 mg/dL (74-106); Potassium 4.9 mmol/L (3.5-5.1); Sodium Level 138 mmol/L (136-145)
[2019-01-20 14:10] LABS: Anion Gap 6 (5-15); BUN 38 mg/dL (7-18); BUN/Creat Ratio 27.9 RATIO (10-20); Calcium,Total 9.3 mg/dL (8.5-10.1); Chloride 105 mmol/L (98-107); Creatinine, Serum 1.36 mg/dL (0.55-1.02); EST Glomerular Filtration Rate 41 mL/min (>60); Est Glom Filt Rate - Afr Amer 50 mL/min (>60); Glucose 122 mg/dL (74-106); Potassium 4.5 mmol/L (3.5-5.1); Sodium Level 136 mmol/L (136-145)
[2019-01-27 13:46] LABS: Anion Gap 4 (5-15); BUN 33 mg/dL (7-18); BUN/Creat Ratio 22.1 RATIO (10-20); Chloride 110 mmol/L (98-107); Creatinine, Serum 1.49 mg/dL (0.55-1.02); EST Glomerular Filtration Rate 37 mL/min (>60); Est Glom Filt Rate - Afr Amer 45 mL/min (>60); Glucose 89 mg/dL (74-106); Potassium 4.6 mmol/L (3.5-5.1); Sodium Level 141 mmol/L (136-145)
[2019-02-03 13:32] LABS: Anion Gap 5 (5-15); BUN 44 mg/dL (7-18); Calcium,Total 9.6 mg/dL (8.5-10.1); Chloride 110 mmol/L (98-107); Creatinine, Serum 1.63 mg/dL (0.55-1.02); EST Glomerular Filtration Rate 33 mL/min (>60); Est Glom Filt Rate - Afr Amer 40 mL/min (>60); Glucose 84 mg/dL (74-106); Potassium 4.6 mmol/L (3.5-5.1); Sodium Level 141 mmol/L (136-145)
== END 2019-02-03 13:51 | disposition home or self-care (01) ==
LOC: LAB 12:51
PROVIDERS: Family Provider Nurse Practitioner Family; PCP Nurse Practitioner Family
DX: Z79.899 Other long term (current) drug therapy (principal)
CPT/HCPCS: 36415; 80048

== ENCOUNTER 2019-03-03 12:49 | Outpatient (RCR) | payer MEDICARE, SELFPAY ==
[2019-02-10 16:27] LABS: Anion Gap 7 (5-15); BUN 33 mg/dL (7-18); BUN/Creat Ratio 24.1 RATIO (10-20); Calcium,Total 9.4 mg/dL (8.5-10.1); Chloride 105 mmol/L (98-107); Creatinine, Serum 1.37 mg/dL (0.55-1.02); EST Glomerular Filtration Rate 41 mL/min (>60); Est Glom Filt Rate - Afr Amer 49 mL/min (>60); Glucose 70 mg/dL (74-106); Potassium 4.7 mmol/L (3.5-5.1); Sodium Level 139 mmol/L (136-145)
[2019-02-17 14:00] LABS: Anion Gap 6 (5-15); BUN 33 mg/dL (7-18); BUN/Creat Ratio 21.7 RATIO (10-20); Calcium,Total 9.7 mg/dL (8.5-10.1); Chloride 109 mmol/L (98-107); Creatinine, Serum 1.52 mg/dL (0.55-1.02); EST Glomerular Filtration Rate 36 mL/min (>60); Est Glom Filt Rate - Afr Amer 44 mL/min (>60); Glucose 94 mg/dL (74-106); Potassium 4.6 mmol/L (3.5-5.1); Sodium Level 143 mmol/L (136-145)
[2019-02-24 14:09] LABS: Anion Gap 2 (5-15); BUN 27 mg/dL (7-18); BUN/Creat Ratio 17.5 RATIO (10-20); Calcium,Total 9.6 mg/dL (8.5-10.1); Chloride 108 mmol/L (98-107); Creatinine, Serum 1.54 mg/dL (0.55-1.02); EST Glomerular Filtration Rate 35 mL/min (>60); Est Glom Filt Rate - Afr Amer 43 mL/min (>60); Glucose 102 mg/dL (74-106); Potassium 4.7 mmol/L (3.5-5.1); Sodium Level 140 mmol/L (136-145)
[2019-03-03 13:40] LABS: Hematocrit 38.2 % (37-47); Hemoglobin 12.2 g/dl (12.0-15.0); Mean Corp Hgb Conc 31.9 g/gl (32-36); Mean Platelet Vol. 8.7 fl (6.2-12.0); Platelet Count 219 K/mm3 (150-450); RBC Distribution Width CV 12.7 % (11.6-14.6); RBC Distribution Width SD 45.2 fl (35.1-43.9); Red Blood Count 3.94 M/mm3 (4.2-5.4); White Blood Count 5.9 K/mm3 (4.4-11.0)
[2019-03-03 13:42] LABS: Scan Indicated on CBC? Y/N NO
[2019-03-03 13:46] LABS: Creatinine, Urine (random) < 13.00 mg/dL (NO RANGE EST.); Protein, Urine (Random) 7.4 mg/dL (<11.9)
[2019-03-03 13:55] LABS: Albumin, Serum 3.8 g/dL (3.2-5.0); BUN 30 mg/dL (7-18); BUN/Creat Ratio 21.6 RATIO (10-20); Calcium,Total 9.3 mg/dL (8.5-10.1); Chloride 108 mmol/L (98-107); Creatinine, Serum 1.39 mg/dL (0.55-1.02); EST Glomerular Filtration Rate 40 mL/min (>60); Est Glom Filt Rate - Afr Amer 48 mL/min (>60); Glucose 69 mg/dL (74-106); Phosphorus 3.3 mg/dL (2.5-4.9); Potassium 4.7 mmol/L (3.5-5.1); Sodium Level 140 mmol/L (136-145)
[2019-03-03 14:03] LABS: Vitamin D,25 Hydroxy 47.6 ng/mL (29.95-100.01)
[2019-03-03 14:04] LABS: PTHIN 90.2 pg/mL (18.4-80.1)
== END 2019-03-08 16:00 | disposition home or self-care (01) ==
LOC: LAB 12:49
PROVIDERS: Internal Medicine Nephrology; Family Provider Nurse Practitioner Family; PCP Nurse Practitioner Family
DX: Z79.899 Other long term (current) drug therapy (principal)
CPT/HCPCS: 36415; 80048; 80069; 82306; 82570; 83970; 84156; 85027

== ENCOUNTER 2019-04-07 12:50 | Outpatient (RCR) | payer MEDICARE, SELFPAY ==
[2019-03-10 14:22] LABS: Anion Gap 5 (5-15); BUN 37 mg/dL (7-18); BUN/Creat Ratio 24.2 RATIO (10-20); Calcium,Total 9.5 mg/dL (8.5-10.1); Chloride 108 mmol/L (98-107); Creatinine, Serum 1.53 mg/dL (0.55-1.02); EST Glomerular Filtration Rate 36 mL/min (>60); Est Glom Filt Rate - Afr Amer 43 mL/min (>60); Glucose 76 mg/dL (74-106); Potassium 4.5 mmol/L (3.5-5.1); Sodium Level 142 mmol/L (136-145)
[2019-03-24 14:04] LABS: Anion Gap 4 (5-15); BUN 31 mg/dL (7-18); BUN/Creat Ratio 21.5 RATIO (10-20); Calcium,Total 9.7 mg/dL (8.5-10.1); Chloride 109 mmol/L (98-107); Creatinine, Serum 1.44 mg/dL (0.55-1.02); EST Glomerular Filtration Rate 38 mL/min (>60); Est Glom Filt Rate - Afr Amer 46 mL/min (>60); Glucose 81 mg/dL (74-106); Potassium 4.5 mmol/L (3.5-5.1); Sodium Level 141 mmol/L (136-145)
[2019-03-31 12:14] LABS: Anion Gap 3 (5-15); BUN 28 mg/dL (7-18); BUN/Creat Ratio 18.2 RATIO (10-20); Calcium,Total 9.5 mg/dL (8.5-10.1); Chloride 108 mmol/L (98-107); Creatinine, Serum 1.54 mg/dL (0.55-1.02); EST Glomerular Filtration Rate 35 mL/min (>60); Est Glom Filt Rate - Afr Amer 43 mL/min (>60); Glucose 81 mg/dL (74-106); Potassium 4.5 mmol/L (3.5-5.1); Sodium Level 141 mmol/L (136-145)
[2019-04-07 13:57] LABS: Anion Gap 5 (5-15); BUN 34 mg/dL (7-18); BUN/Creat Ratio 24.5 RATIO (10-20); Calcium,Total 9.7 mg/dL (8.5-10.1); Chloride 108 mmol/L (98-107); Creatinine, Serum 1.39 mg/dL (0.55-1.02); EST Glomerular Filtration Rate 40 mL/min (>60); Est Glom Filt Rate - Afr Amer 48 mL/min (>60); Glucose 76 mg/dL (74-106); Potassium 4.8 mmol/L (3.5-5.1); Sodium Level 141 mmol/L (136-145)
== END 2019-04-07 13:50 | disposition home or self-care (01) ==
LOC: LAB 12:50
PROVIDERS: Family Provider Nurse Practitioner Family; PCP Nurse Practitioner Family
DX: Z79.899 Other long term (current) drug therapy (principal)
CPT/HCPCS: 36415; 80048

== ENCOUNTER → 2019-04-29 10:27 | Outpatient (CLI) | payer MEDICARE, SELFPAY ==
--- NOTE | 2019-04-29 10:44 | RAD_ITS ---
STUDY: X-RAY - LUMBAR SPINE REASON FOR EXAM: Female, 68 years old. Chronic back pain, no injury TECHNIQUE: 3 view(s) of the lumbar spine were obtained. COMPARISON: None FINDINGS: Normal lumbar lordosis. There is a mild lumbar dextroscoliosis. There is a normal alignment of the vertebrae. Normal vertebral bodies and endplates. There is multi-level degenerative disc disease with multi-level disc space narrowing. There is no demonstrated fracture. The soft tissue structures are unremarkable. RAD/Lumbar Spine 2 or 3 Views IMPRESSION: Mild lumbar dextroscoliosis. Multilevel disc space narrowing. Electronically Signed: Isaias Neff MD at 17:31 EDT , Service support ,
== END ==
PROVIDERS: Family Provider Nurse Practitioner Family; PCP Nurse Practitioner Family; Referring Provider Nurse Practitioner Family; Visit Provider Nurse Practitioner Family
DX: M54.5 Low back pain (principal); G89.29 Other chronic pain
CPT/HCPCS: 72100

== ENCOUNTER 2019-05-05 12:50 | Outpatient (RCR) | payer MEDICARE, SELFPAY ==
[2019-04-14 13:32] LABS: Anion Gap 5 (5-15); BUN 36 mg/dL (7-18); BUN/Creat Ratio 23.1 RATIO (10-20); Calcium,Total 9.4 mg/dL (8.5-10.1); Chloride 102 mmol/L (98-107); Creatinine, Serum 1.56 mg/dL (0.55-1.02); EST Glomerular Filtration Rate 35 mL/min (>60); Est Glom Filt Rate - Afr Amer 42 mL/min (>60); Glucose 87 mg/dL (74-106); Sodium Level 135 mmol/L (136-145)
[2019-04-21 14:06] LABS: Anion Gap 8 (5-15); BUN 36 mg/dL (7-18); BUN/Creat Ratio 24.8 RATIO (10-20); Calcium,Total 9.8 mg/dL (8.5-10.1); Chloride 102 mmol/L (98-107); Creatinine, Serum 1.45 mg/dL (0.55-1.02); EST Glomerular Filtration Rate 38 mL/min (>60); Est Glom Filt Rate - Afr Amer 46 mL/min (>60); Free T3 3.6 pg/mL (2.18-3.98); Glucose 85 mg/dL (74-106); Magnesium 2.7 mg/dL (1.6-2.6); Potassium 4.5 mmol/L (3.5-5.1); Sodium Level 139 mmol/L (136-145); T4 Free Direct 1.13 ng/dL (0.76-1.46); Thyroid Stim Hormone (TSH) 0.28 uIU/mL (0.358-3.74)
[2019-04-21 15:02] LABS: Vitamin D,25 Hydroxy 63.1 ng/mL (29.95-100.01)
[2019-04-28 14:32] LABS: Anion Gap 4 (5-15); BUN 31 mg/dL (7-18); BUN/Creat Ratio 21.8 RATIO (10-20); Calcium,Total 9.4 mg/dL (8.5-10.1); Chloride 109 mmol/L (98-107); Creatinine, Serum 1.42 mg/dL (0.55-1.02); EST Glomerular Filtration Rate 39 mL/min (>60); Est Glom Filt Rate - Afr Amer 47 mL/min (>60); Glucose 98 mg/dL (74-106); Potassium 4.7 mmol/L (3.5-5.1); Sodium Level 144 mmol/L (136-145)
[2019-05-05 13:57] LABS: Anion Gap 6 (5-15); BUN 39 mg/dL (7-18); BUN/Creat Ratio 26.2 RATIO (10-20); Calcium,Total 9.7 mg/dL (8.5-10.1); Chloride 109 mmol/L (98-107); Creatinine, Serum 1.49 mg/dL (0.55-1.02); EST Glomerular Filtration Rate 37 mL/min (>60); Est Glom Filt Rate - Afr Amer 45 mL/min (>60); Glucose 90 mg/dL (74-106); Potassium 4.7 mmol/L (3.5-5.1); Sodium Level 144 mmol/L (136-145)
== END 2019-05-08 12:00 | disposition home or self-care (01) ==
LOC: LAB 12:50
PROVIDERS: Internal Medicine Endocrinology, Diabetes & Metabolism; Family Provider Nurse Practitioner Family; PCP Nurse Practitioner Family
DX: E04.2 Nontoxic multinodular goiter (principal); E21.0 Primary hyperparathyroidism; E55.9 Vitamin D deficiency, unspecified; E16.2 Hypoglycemia, unspecified; Z79.899 Other long term (current) drug therapy
CPT/HCPCS: 36415; 80048; 82306; 82330; 83735; 83970; 84439; 84443; 84481

== ENCOUNTER 2019-06-02 12:56 | Outpatient (RCR) | payer MEDICARE, SELFPAY ==
[2019-05-13 14:32] LABS: Anion Gap 6 (5-15); BUN 31 mg/dL (7-18); BUN/Creat Ratio 23.5 RATIO (10-20); Calcium,Total 9.3 mg/dL (8.5-10.1); Chloride 107 mmol/L (98-107); Creatinine, Serum 1.32 mg/dL (0.55-1.02); EST Glomerular Filtration Rate 42 mL/min (>60); Est Glom Filt Rate - Afr Amer 51 mL/min (>60); Glucose 84 mg/dL (74-106); Potassium 4.6 mmol/L (3.5-5.1); Sodium Level 142 mmol/L (136-145)
[2019-05-19 13:58] LABS: Anion Gap 4 (5-15); BUN 32 mg/dL (7-18); BUN/Creat Ratio 22.2 RATIO (10-20); Calcium,Total 9.8 mg/dL (8.5-10.1); Chloride 109 mmol/L (98-107); Creatinine, Serum 1.44 mg/dL (0.55-1.02); EST Glomerular Filtration Rate 38 mL/min (>60); Est Glom Filt Rate - Afr Amer 46 mL/min (>60); Glucose 85 mg/dL (74-106); Potassium 4.6 mmol/L (3.5-5.1); Sodium Level 141 mmol/L (136-145)
[2019-05-26 13:59] LABS: Anion Gap 6 (5-15); BUN 36 mg/dL (7-18); BUN/Creat Ratio 24.7 RATIO (10-20); Calcium,Total 9.5 mg/dL (8.5-10.1); Chloride 108 mmol/L (98-107); Creatinine, Serum 1.46 mg/dL (0.55-1.02); EST Glomerular Filtration Rate 38 mL/min (>60); Est Glom Filt Rate - Afr Amer 46 mL/min (>60); Glucose 86 mg/dL (74-106); Sodium Level 143 mmol/L (136-145)
[2019-06-02 14:01] LABS: Anion Gap 7 (5-15); BUN 35 mg/dL (7-18); BUN/Creat Ratio 23.2 RATIO (10-20); Calcium,Total 9.7 mg/dL (8.5-10.1); Chloride 109 mmol/L (98-107); Creatinine, Serum 1.51 mg/dL (0.55-1.02); EST Glomerular Filtration Rate 36 mL/min (>60); Est Glom Filt Rate - Afr Amer 44 mL/min (>60); Glucose 90 mg/dL (74-106); Potassium 5.2 mmol/L (3.5-5.1); Sodium Level 143 mmol/L (136-145)
== END 2019-06-08 16:16 | disposition home or self-care (01) ==
LOC: LAB 12:56
PROVIDERS: Family Provider Nurse Practitioner Family; PCP Nurse Practitioner Family
DX: Z79.899 Other long term (current) drug therapy (principal)
CPT/HCPCS: 36415; 80048

== ENCOUNTER 2019-06-24 12:55 | Outpatient (RCR) | payer MEDICARE, SELFPAY ==
[2019-06-10 14:27] LABS: Anion Gap 2 (5-15); BUN 33 mg/dL (7-18); Calcium,Total 9.9 mg/dL (8.5-10.1); Chloride 107 mmol/L (98-107); EST Glomerular Filtration Rate 37 mL/min (>60); Est Glom Filt Rate - Afr Amer 44 mL/min (>60); Glucose 86 mg/dL (74-106); Sodium Level 138 mmol/L (136-145)
[2019-06-17 14:01] LABS: Anion Gap 3 (5-15); BUN 39 mg/dL (7-18); Calcium,Total 9.6 mg/dL (8.5-10.1); Chloride 109 mmol/L (98-107); EST Glomerular Filtration Rate 37 mL/min (>60); Est Glom Filt Rate - Afr Amer 44 mL/min (>60); Glucose 88 mg/dL (74-106); Potassium 4.8 mmol/L (3.5-5.1); Sodium Level 140 mmol/L (136-145)
[2019-06-24 13:37] LABS: Anion Gap 3 (5-15); BUN 39 mg/dL (7-18); BUN/Creat Ratio 24.8 RATIO (10-20); Calcium,Total 9.3 mg/dL (8.5-10.1); Chloride 113 mmol/L (98-107); Creatinine, Serum 1.57 mg/dL (0.55-1.02); EST Glomerular Filtration Rate 35 mL/min (>60); Est Glom Filt Rate - Afr Amer 42 mL/min (>60); Glucose 72 mg/dL (74-106); Potassium 4.6 mmol/L (3.5-5.1); Sodium Level 145 mmol/L (136-145)
== END 2019-06-24 14:00 | disposition home or self-care (01) ==
LOC: LAB 12:55
PROVIDERS: Family Provider Nurse Practitioner Family; PCP Nurse Practitioner Family
DX: Z79.899 Other long term (current) drug therapy (principal)
CPT/HCPCS: 36415; 80048

== ENCOUNTER → 2019-07-22 08:58 | Outpatient (CLI) | payer MEDICARE, SELFPAY ==
[2019-07-22 09:48] LABS: Absolute Lymphocyte Count 1.59 X10^3/uL (0.83-4.51); Absolute Neutrophil Count 3.2 X10^3/uL (2.0-7.7); Basophil# 0.02 X10^3/uL; Basophil% 0.4 % (0-1); Eosinophil# 0.17 X10^3/uL; Hematocrit 39.4 % (37-47); Hemoglobin 12.2 g/dL (12.0-15.0); Lymphocyte # 1.59 X10^3/ul (4.0); Lymphocyte % 28.5 % (19-41); Mean Corpuscular Hgb 30.1 pg (27.0-32.0); Mean Corpuscular Volume 97.3 fL (81-99); Mean Platelet Vol. 8.7 fl (6.2-12.0); Monocyte# 0.57 X10^3/uL; Monocyte% 10.2 % (0-10); NRBC Flagged by Analyzer 0 % (0-5); Neutrophil # 3.22 X10^3/uL (2.7-7.7); Neutrophil % 57.7 % (47-70); Platelet Count 221 K/mm3 (150-450); RBC Distribution Width CV 12.3 % (11.6-14.6); RBC Distribution Width SD 44.2 fl (35.1-43.9); Red Blood Count 4.05 M/mm3 (4.2-5.4); White Blood Count 5.6 K/mm3 (4.4-11.0)
[2019-07-22 10:37] LABS: AST(SGOT) 17 U/L (15-37); Alanine Aminotransfer ALT/SGPT 20 U/L (13-56); Albumin, Serum 3.6 g/dL (3.2-5.0); Alkaline Phosphatase 115 U/L (45-117); Anion Gap 3 (5-15); BUN 29 mg/dL (7-18); BUN/Creat Ratio 17.6 RATIO (10-20); Calcium,Total 9.7 mg/dL (8.5-10.1); Chloride 108 mmol/L (98-107); Creatinine, Serum 1.65 mg/dL (0.55-1.02); EST Glomerular Filtration Rate 33 mL/min (>60); Est Glom Filt Rate - Afr Amer 40 mL/min (>60); Free T3 2.8 pg/mL (2.18-3.98); Globulin 3.6 g/dL (2.2-4.2); Glucose 66 mg/dL (74-106); Protein, Total 7.2 g/dL (6.4-8.2); Sodium Level 141 mmol/L (136-145); T4 Free Direct 0.88 ng/dL (0.76-1.46); Thyroid Stim Hormone (TSH) 1.36 uIU/mL (0.358-3.74)
== END ==
PROVIDERS: Family Provider Nurse Practitioner Family; PCP Nurse Practitioner Family; Referring Provider Internal Medicine Endocrinology, Diabetes & Metabolism; Visit Provider Internal Medicine Endocrinology, Diabetes & Metabolism
DX: E04.2 Nontoxic multinodular goiter (principal); E05.90 Thyrotoxicosis, unspecified without thyrotoxic crisis or storm; M81.0 Age-related osteoporosis without current pathological fracture
CPT/HCPCS: 36415; 80053; 84439; 84443; 84481; 85025

== ENCOUNTER 2019-08-03 09:47 | Outpatient (RCR) | payer MEDICARE, SELFPAY ==
[2019-07-14 16:24] LABS: ALB/GLOB Ratio 1.1 RATIO (0.9-2.4); AST(SGOT) 21 U/L (15-37); Alanine Aminotransfer ALT/SGPT 23 U/L (13-56); Albumin, Serum 3.9 g/dL (3.2-5.0); Alkaline Phosphatase 119 U/L (45-117); Anion Gap 6 (5-15); BUN 34 mg/dL (7-18); BUN/Creat Ratio 23.6 RATIO (10-20); Calcium,Total 9.9 mg/dL (8.5-10.1); Chloride 109 mmol/L (98-107); Creatinine, Serum 1.44 mg/dL (0.55-1.02); EST Glomerular Filtration Rate 38 mL/min (>60); Est Glom Filt Rate - Afr Amer 46 mL/min (>60); Globulin 3.5 g/dL (2.2-4.2); Glucose 68 mg/dL (74-106); Potassium 4.7 mmol/L (3.5-5.1); Protein, Total 7.4 g/dL (6.4-8.2); Sodium Level 144 mmol/L (136-145)
[2019-08-03 10:58] LABS: ALB/GLOB Ratio 1.1 RATIO (0.9-2.4); AST(SGOT) 21 U/L (15-37); Alanine Aminotransfer ALT/SGPT 26 U/L (13-56); Alkaline Phosphatase 126 U/L (45-117); Anion Gap 7 (5-15); BUN 33 mg/dL (7-18); BUN/Creat Ratio 21.6 RATIO (10-20); Calcium,Total 9.5 mg/dL (8.5-10.1); Chloride 109 mmol/L (98-107); Creatinine, Serum 1.53 mg/dL (0.55-1.02); EST Glomerular Filtration Rate 36 mL/min (>60); Est Glom Filt Rate - Afr Amer 43 mL/min (>60); Globulin 3.6 g/dL (2.2-4.2); Glucose 100 mg/dL (74-106); Potassium 4.3 mmol/L (3.5-5.1); Protein, Total 7.6 g/dL (6.4-8.2); Sodium Level 142 mmol/L (136-145)
== END 2019-08-03 11:00 | disposition home or self-care (01) ==
LOC: LAB 09:47
PROVIDERS: Family Provider Nurse Practitioner Family; PCP Nurse Practitioner Family
DX: N18.3 Chronic kidney disease, stage 3 (moderate) (principal); E23.2 Diabetes insipidus; E21.3 Hyperparathyroidism, unspecified
CPT/HCPCS: 36415; 80053

== ENCOUNTER 2019-08-30 13:00 | Outpatient (RCR) | payer MEDICARE, SELFPAY ==
[2019-08-15 14:15] LABS: ALB/GLOB Ratio 1.1 RATIO (0.9-2.4); AST(SGOT) 18 U/L (15-37); Alanine Aminotransfer ALT/SGPT 22 U/L (13-56); Albumin, Serum 3.9 g/dL (3.2-5.0); Alkaline Phosphatase 112 U/L (45-117); Anion Gap 4 (5-15); BUN 27 mg/dL (7-18); BUN/Creat Ratio 15.3 RATIO (10-20); Calcium,Total 9.7 mg/dL (8.5-10.1); Chloride 108 mmol/L (98-107); Creatinine, Serum 1.77 mg/dL (0.55-1.02); EST Glomerular Filtration Rate 30 mL/min (>60); Est Glom Filt Rate - Afr Amer 37 mL/min (>60); Globulin 3.5 g/dL (2.2-4.2); Glucose 127 mg/dL (74-106); Potassium 4.5 mmol/L (3.5-5.1); Protein, Total 7.4 g/dL (6.4-8.2); Sodium Level 141 mmol/L (136-145)
[2019-08-30 16:32] LABS: ALB/GLOB Ratio 1.2 RATIO (0.9-2.4); AST(SGOT) 21 U/L (15-37); Alanine Aminotransfer ALT/SGPT 25 U/L (13-56); Albumin, Serum 3.9 g/dL (3.2-5.0); Alkaline Phosphatase 113 U/L (45-117); Anion Gap 7 (5-15); BUN 25 mg/dL (7-18); BUN/Creat Ratio 13.9 RATIO (10-20); Calcium,Total 9.9 mg/dL (8.5-10.1); Chloride 101 mmol/L (98-107); EST Glomerular Filtration Rate 30 mL/min (>60); Est Glom Filt Rate - Afr Amer 36 mL/min (>60); Globulin 3.2 g/dL (2.2-4.2); Glucose 111 mg/dL (74-106); Potassium 3.8 mmol/L (3.5-5.1); Protein, Total 7.1 g/dL (6.4-8.2); Sodium Level 139 mmol/L (136-145)
== END 2019-08-30 18:00 | disposition home or self-care (01) ==
LOC: LAB 13:00
PROVIDERS: Family Provider Nurse Practitioner Family; PCP Nurse Practitioner Family
DX: N18.3 Chronic kidney disease, stage 3 (moderate) (principal); E23.2 Diabetes insipidus; E21.3 Hyperparathyroidism, unspecified
CPT/HCPCS: 36415; 80053

== ENCOUNTER → 2019-09-02 13:02 | Outpatient (CLI) | payer MEDICARE, SELFPAY ==
[2019-09-02 13:53] LABS: Hematocrit 38.3 % (37-47); Hemoglobin 12.3 g/dL (12.0-15.0); Mean Corp Hgb Conc 32.1 g/dL (32-36); Mean Corpuscular Hgb 29.9 pg (27.0-32.0); Mean Corpuscular Volume 93.2 fL (81-99); Mean Platelet Vol. 9.3 fl (6.2-12.0); Platelet Count 189 K/mm3 (150-450); RBC Distribution Width SD 41.1 fl (35.1-43.9); Red Blood Count 4.11 M/mm3 (4.2-5.4); White Blood Count 5.4 K/mm3 (4.4-11.0)
[2019-09-02 14:11] LABS: Albumin, Serum 3.9 g/dL (3.2-5.0); BUN 21 mg/dL (7-18); BUN/Creat Ratio 12.3 RATIO (10-20); Calcium,Total 9.9 mg/dL (8.5-10.1); Chloride 109 mmol/L (98-107); Creatinine, Serum 1.71 mg/dL (0.55-1.02); EST Glomerular Filtration Rate 31 mL/min (>60); Est Glom Filt Rate - Afr Amer 38 mL/min (>60); Glucose 175 mg/dL (74-106); Phosphorus 3.1 mg/dL (2.5-4.9); Potassium 4.4 mmol/L (3.5-5.1); Sodium Level 141 mmol/L (136-145)
[2019-09-02 14:17] LABS: Vitamin D,25 Hydroxy 58.9 ng/mL (29.95-100.01)
[2019-09-02 14:30] LABS: PTHIN 63.5 pg/mL (18.4-80.1)
[2019-09-02 15:05] LABS: Protein:Creat Ratio 436 mg/g CRE (0-200)
== END ==
PROVIDERS: Family Provider Nurse Practitioner Family; PCP Nurse Practitioner Family; Referring Provider Internal Medicine Nephrology; Visit Provider Internal Medicine Nephrology
DX: N25.1 Nephrogenic diabetes insipidus (principal); E83.52 Hypercalcemia
CPT/HCPCS: 36415; 80069; 82306; 82570; 83970; 84156; 85027

== ENCOUNTER 2019-09-27 12:52 | Outpatient (RCR) | payer MEDICARE, SELFPAY ==
[2019-09-15 12:05] LABS: ALB/GLOB Ratio 1.1 RATIO (0.9-2.4); AST(SGOT) 16 U/L (15-37); Alanine Aminotransfer ALT/SGPT 20 U/L (13-56); Albumin, Serum 3.9 g/dL (3.2-5.0); Alkaline Phosphatase 111 U/L (45-117); Anion Gap 8 (5-15); BUN 23 mg/dL (7-18); Chloride 110 mmol/L (98-107); Creatinine, Serum 1.77 mg/dL (0.55-1.02); EST Glomerular Filtration Rate 30 mL/min (>60); Est Glom Filt Rate - Afr Amer 36 mL/min (>60); Globulin 3.7 g/dL (2.2-4.2); Glucose 76 mg/dL (74-106); Potassium 4.2 mmol/L (3.5-5.1); Protein, Total 7.6 g/dL (6.4-8.2); Sodium Level 146 mmol/L (136-145)
[2019-09-27 14:07] LABS: ALB/GLOB Ratio 1.1 RATIO (0.9-2.4); AST(SGOT) 18 U/L (15-37); Alanine Aminotransfer ALT/SGPT 19 U/L (13-56); Albumin, Serum 4.1 g/dL (3.2-5.0); Alkaline Phosphatase 123 U/L (45-117); Anion Gap 6 (5-15); BUN 22 mg/dL (7-18); BUN/Creat Ratio 13.8 RATIO (10-20); Calcium,Total 10.2 mg/dL (8.5-10.1); Chloride 107 mmol/L (98-107); Creatinine, Serum 1.59 mg/dL (0.55-1.02); EST Glomerular Filtration Rate 34 mL/min (>60); Est Glom Filt Rate - Afr Amer 41 mL/min (>60); Globulin 3.9 g/dL (2.2-4.2); Glucose 150 mg/dL (74-106); Sodium Level 140 mmol/L (136-145)
== END 2019-10-08 12:43 | disposition home or self-care (01) ==
LOC: LAB 12:52
PROVIDERS: Family Provider Nurse Practitioner Family; PCP Nurse Practitioner Family; Referring Provider Nurse Practitioner Family; Visit Provider Nurse Practitioner Family
DX: N18.3 Chronic kidney disease, stage 3 (moderate) (principal); E23.2 Diabetes insipidus; E21.3 Hyperparathyroidism, unspecified
CPT/HCPCS: 36415; 80053

== ENCOUNTER 2019-11-08 12:54 | Outpatient (RCR) | payer MEDICARE, SELFPAY ==
[2019-10-11 14:26] LABS: AST(SGOT) 15 U/L (15-37); Alanine Aminotransfer ALT/SGPT 18 U/L (13-56); Albumin, Serum 3.7 g/dL (3.2-5.0); Alkaline Phosphatase 114 U/L (45-117); Anion Gap 4 (5-15); BUN 28 mg/dL (7-18); BUN/Creat Ratio 16.3 RATIO (10-20); Calcium,Total 9.7 mg/dL (8.5-10.1); Chloride 109 mmol/L (98-107); Creatinine, Serum 1.72 mg/dL (0.55-1.02); EST Glomerular Filtration Rate 31 mL/min (>60); Est Glom Filt Rate - Afr Amer 38 mL/min (>60); Globulin 3.6 g/dL (2.2-4.2); Glucose 172 mg/dL (74-106); Potassium 4.1 mmol/L (3.5-5.1); Protein, Total 7.3 g/dL (6.4-8.2); Sodium Level 143 mmol/L (136-145)
[2019-10-26 13:55] LABS: ALB/GLOB Ratio 0.9 RATIO (0.9-2.4); AST(SGOT) 15 U/L (15-37); Alanine Aminotransfer ALT/SGPT 20 U/L (13-56); Albumin, Serum 3.9 g/dL (3.2-5.0); Alkaline Phosphatase 139 U/L (45-117); Anion Gap 6 (5-15); BUN 23 mg/dL (7-18); BUN/Creat Ratio 13.2 RATIO (10-20); Calcium,Total 9.6 mg/dL (8.5-10.1); Chloride 106 mmol/L (98-107); Creatinine, Serum 1.74 mg/dL (0.55-1.02); EST Glomerular Filtration Rate 31 mL/min (>60); Est Glom Filt Rate - Afr Amer 37 mL/min (>60); Globulin 4.2 g/dL (2.2-4.2); Glucose 110 mg/dL (74-106); Potassium 4.3 mmol/L (3.5-5.1); Protein, Total 8.1 g/dL (6.4-8.2); Sodium Level 140 mmol/L (136-145)
[2019-11-08 13:43] LABS: Absolute Lymphocyte Count 0.77 X10^3/uL (0.83-4.51); Basophil# 0.03 X10^3/uL; Basophil% 0.5 % (0-1); Eosinophil# 0.11 X10^3/uL; Eosinophils% 1.7 % (0-5); Hematocrit 39.1 % (37-47); Hemoglobin 12.1 g/dL (12.0-15.0); Lymphocyte # 0.77 X10^3/ul (4.0); Lymphocyte % 12.2 % (19-41); Mean Corp Hgb Conc 30.9 g/dL (32-36); Mean Platelet Vol. 8.3 fl (6.2-12.0); Monocyte# 0.35 X10^3/uL; Monocyte% 5.6 % (0-10); NRBC Flagged by Analyzer 0 % (0-5); Neutrophil # 5.01 X10^3/uL (2.7-7.7); Neutrophil % 79.7 % (47-70); Platelet Count 265 K/mm3 (150-450); RBC Distribution Width CV 12.2 % (11.6-14.6); RBC Distribution Width SD 43.8 fl (35.1-43.9); Red Blood Count 4.03 M/mm3 (4.2-5.4); White Blood Count 6.3 K/mm3 (4.4-11.0)
[2019-11-08 14:22] LABS: PTHIN 47.7 pg/mL (18.4-80.1); Vitamin D,25 Hydroxy 44.6 ng/mL (29.95-100.01)
[2019-11-08 14:29] LABS: BUN 21 mg/dL (7-18); Creatinine, Serum 1.68 mg/dL (0.55-1.02); Glucose 134 mg/dL (74-106)
[2019-11-08 14:30] LABS: ALB/GLOB Ratio 0.9 RATIO (0.9-2.4); AST(SGOT) 13 U/L (15-37); Alanine Aminotransfer ALT/SGPT 21 U/L (13-56); Albumin, Serum 3.5 g/dL (3.2-5.0); Alkaline Phosphatase 127 U/L (45-117); Anion Gap 5 (5-15); BUN/Creat Ratio 12.5 RATIO (10-20); Calcium,Total 9.5 mg/dL (8.5-10.1); Chloride 105 mmol/L (98-107); EST Glomerular Filtration Rate 32 mL/min (>60); Est Glom Filt Rate - Afr Amer 39 mL/min (>60); Ferritin 140 ng/mL (8-252); Free T3 2.6 pg/mL (2.18-3.98); Iron 65 ug/dL (50-170); Iron Binding Capacity,Total 272 ug/dL (250-450); Phosphorus 3.2 mg/dL (2.5-4.9); Protein, Total 7.5 g/dL (6.4-8.2); Sodium Level 141 mmol/L (136-145); T4 Free Direct 0.92 ng/dL (0.76-1.46)
[2019-11-08 14:57] LABS: Thyroid Stim Hormone (TSH) 1.07 uIU/mL (0.358-3.74)
== END 2019-11-08 18:00 | disposition home or self-care (01) ==
LOC: LAB 12:54
PROVIDERS: Internal Medicine Endocrinology, Diabetes & Metabolism; Family Provider Nurse Practitioner Family; PCP Nurse Practitioner Family; Referring Provider Nurse Practitioner Family; Visit Provider Nurse Practitioner Family
DX: N18.3 Chronic kidney disease, stage 3 (moderate) (principal); E23.2 Diabetes insipidus; E21.3 Hyperparathyroidism, unspecified; E21.0 Primary hyperparathyroidism; E55.9 Vitamin D deficiency, unspecified; E05.90 Thyrotoxicosis, unspecified without thyrotoxic crisis or storm; Z86.39 Personal history of other endocrine, nutritional and metabolic disease
CPT/HCPCS: 36415; 80053; 82306; 82330; 82728; 83540; 83550; 83970; 84100; 84439; 84443; 84481; 85025

== ENCOUNTER 2019-12-08 13:07 | Outpatient (RCR) | payer MEDICARE, SELFPAY ==
[2019-11-24 14:12] LABS: ALB/GLOB Ratio 1.1 RATIO (0.9-2.4); AST(SGOT) 13 U/L (15-37); Alanine Aminotransfer ALT/SGPT 23 U/L (13-56); Alkaline Phosphatase 118 U/L (45-117); Anion Gap 4 (5-15); BUN 31 mg/dL (7-18); BUN/Creat Ratio 16.4 RATIO (10-20); Calcium,Total 9.5 mg/dL (8.5-10.1); Chloride 107 mmol/L (98-107); Creatinine, Serum 1.89 mg/dL (0.55-1.02); EST Glomerular Filtration Rate 28 mL/min (>60); Est Glom Filt Rate - Afr Amer 34 mL/min (>60); Globulin 3.6 g/dL (2.2-4.2); Glucose 122 mg/dL (74-106); Potassium 3.9 mmol/L (3.5-5.1); Protein, Total 7.6 g/dL (6.4-8.2); Sodium Level 140 mmol/L (136-145)
[2019-12-08 14:06] LABS: BUN 26 mg/dL (7-18); Creatinine, Serum 1.83 mg/dL (0.55-1.02); Glucose 125 mg/dL (74-106)
[2019-12-08 14:07] LABS: ALB/GLOB Ratio 1.2 RATIO (0.9-2.4); AST(SGOT) 18 U/L (15-37); Alanine Aminotransfer ALT/SGPT 28 U/L (13-56); Alkaline Phosphatase 101 U/L (45-117); Anion Gap 5 (5-15); BUN/Creat Ratio 14.2 RATIO (10-20); Calcium,Total 9.7 mg/dL (8.5-10.1); Chloride 105 mmol/L (98-107); EST Glomerular Filtration Rate 29 mL/min (>60); Est Glom Filt Rate - Afr Amer 35 mL/min (>60); Globulin 3.4 g/dL (2.2-4.2); Potassium 4.3 mmol/L (3.5-5.1); Protein, Total 7.4 g/dL (6.4-8.2); Sodium Level 138 mmol/L (136-145)
== END 2019-12-08 18:00 | disposition home or self-care (01) ==
LOC: LAB 13:07
PROVIDERS: Family Provider Nurse Practitioner Family; PCP Nurse Practitioner Family; Referring Provider Nurse Practitioner Family; Visit Provider Nurse Practitioner Family
DX: N18.3 Chronic kidney disease, stage 3 (moderate) (principal); E23.2 Diabetes insipidus; E21.3 Hyperparathyroidism, unspecified
CPT/HCPCS: 36415; 80053

== ENCOUNTER 2019-12-22 12:06 | Outpatient (RCR) | payer MEDICARE, SELFPAY ==
[2019-12-22 13:10] LABS: ALB/GLOB Ratio 1.1 RATIO (0.9-2.4); AST(SGOT) 11 U/L (15-37); Alanine Aminotransfer ALT/SGPT 23 U/L (13-56); Albumin, Serum 3.9 g/dL (3.2-5.0); Alkaline Phosphatase 97 U/L (45-117); Anion Gap 5 (5-15); BUN 28 mg/dL (7-18); BUN/Creat Ratio 15.6 RATIO (10-20); Calcium,Total 9.6 mg/dL (8.5-10.1); Chloride 109 mmol/L (98-107); EST Glomerular Filtration Rate 30 mL/min (>60); Est Glom Filt Rate - Afr Amer 36 mL/min (>60); Globulin 3.6 g/dL (2.2-4.2); Glucose 121 mg/dL (74-106); Potassium 4.3 mmol/L (3.5-5.1); Protein, Total 7.5 g/dL (6.4-8.2); Sodium Level 143 mmol/L (136-145)
== END 2019-12-22 18:00 | disposition home or self-care (01) ==
LOC: LAB 12:06
PROVIDERS: Family Provider Nurse Practitioner Family; PCP Nurse Practitioner Family; Referring Provider Nurse Practitioner Family; Visit Provider Nurse Practitioner Family
DX: N18.3 Chronic kidney disease, stage 3 (moderate) (principal); E23.2 Diabetes insipidus; E21.3 Hyperparathyroidism, unspecified
CPT/HCPCS: 36415; 80053

== ENCOUNTER → 2020-01-02 12:48 | Outpatient (CLI) | payer MEDICARE, SELFPAY ==
[2020-01-02 13:51] LABS: Absolute Neutrophil Count 3.3 X10^3/uL (2.0-7.7); Basophil# 0.03 X10^3/uL; Basophil% 0.6 % (0-1); Eosinophil# 0.09 X10^3/uL; Eosinophils% 1.9 % (0-5); Hematocrit 38.9 % (37-47); Hemoglobin 12.3 g/dL (12.0-15.0); Mean Corp Hgb Conc 31.6 g/dL (32-36); Mean Corpuscular Hgb 30.1 pg (27.0-32.0); Mean Corpuscular Volume 95.3 fL (81-99); Mean Platelet Vol. 8.5 fl (6.2-12.0); Monocyte# 0.39 X10^3/uL; Monocyte% 8.2 % (0-10); NRBC Flagged by Analyzer 0 % (0-5); Neutrophil # 3.25 X10^3/uL (2.7-7.7); Neutrophil % 68.1 % (47-70); Platelet Count 229 K/mm3 (150-450); RBC Distribution Width CV 12.9 % (11.6-14.6); RBC Distribution Width SD 45.1 fl (35.1-43.9); Red Blood Count 4.08 M/mm3 (4.2-5.4); White Blood Count 4.8 K/mm3 (4.4-11.0)
[2020-01-02 14:18] LABS: ALB/GLOB Ratio 1.2 RATIO (0.9-2.4); AST(SGOT) 13 U/L (15-37); Alanine Aminotransfer ALT/SGPT 21 U/L (13-56); Alkaline Phosphatase 102 U/L (45-117); Anion Gap 5 (5-15); BUN 21 mg/dL (7-18); Calcium,Total 9.6 mg/dL (8.5-10.1); Chloride 106 mmol/L (98-107); Creatinine, Serum 1.75 mg/dL (0.55-1.02); EST Glomerular Filtration Rate 31 mL/min (>60); Est Glom Filt Rate - Afr Amer 37 mL/min (>60); Free T3 2.8 pg/mL (2.18-3.98); Globulin 3.4 g/dL (2.2-4.2); Glucose 123 mg/dL (74-106); Potassium 4.1 mmol/L (3.5-5.1); Protein, Total 7.4 g/dL (6.4-8.2); Sodium Level 140 mmol/L (136-145); T4 Free Direct 0.85 ng/dL (0.76-1.46); Thyroid Stim Hormone (TSH) 0.65 uIU/mL (0.358-3.74)
[2020-01-03 09:23] LABS: Vitamin D,25 Hydroxy 59.7 ng/mL
== END ==
PROVIDERS: PCP Nurse Practitioner Family; Visit Provider Nurse Practitioner Family
DX: N18.3 Chronic kidney disease, stage 3 (moderate) (principal); E23.2 Diabetes insipidus; E04.2 Nontoxic multinodular goiter; E21.0 Primary hyperparathyroidism; E55.9 Vitamin D deficiency, unspecified; E21.3 Hyperparathyroidism, unspecified
CPT/HCPCS: 36415; 80053; 82306; 84439; 84443; 84481; 85025

== ENCOUNTER 2020-01-19 12:56 | Outpatient (RCR) | payer MEDICARE, SELFPAY ==
[2020-01-19 14:15] LABS: ALB/GLOB Ratio 1.2 RATIO (0.9-2.4); AST(SGOT) 15 U/L (15-37); Alanine Aminotransfer ALT/SGPT 22 U/L (13-56); Albumin, Serum 4.1 g/dL (3.2-5.0); Alkaline Phosphatase 102 U/L (45-117); Anion Gap 7 (5-15); BUN 33 mg/dL (7-18); BUN/Creat Ratio 18.1 RATIO (10-20); Calcium,Total 9.9 mg/dL (8.5-10.1); Chloride 106 mmol/L (98-107); Creatinine, Serum 1.82 mg/dL (0.55-1.02); EST Glomerular Filtration Rate 29 mL/min (>60); Est Glom Filt Rate - Afr Amer 35 mL/min (>60); Globulin 3.5 g/dL (2.2-4.2); Glucose 102 mg/dL (74-106); Potassium 4.5 mmol/L (3.5-5.1); Protein, Total 7.6 g/dL (6.4-8.2); Sodium Level 141 mmol/L (136-145)
== END 2020-01-19 18:00 | disposition home or self-care (01) ==
LOC: LAB 12:56
PROVIDERS: Family Provider Nurse Practitioner Family; PCP Nurse Practitioner Family; Referring Provider Nurse Practitioner Family; Visit Provider Nurse Practitioner Family
DX: N18.3 Chronic kidney disease, stage 3 (moderate) (principal); E23.2 Diabetes insipidus; E21.3 Hyperparathyroidism, unspecified
CPT/HCPCS: 36415; 80053

== ENCOUNTER 2020-03-16 13:32 | Outpatient (RCR) | payer MEDICARE, SELFPAY ==
[2020-03-16 14:18] LABS: AST(SGOT) 11 U/L (15-37); Alanine Aminotransfer ALT/SGPT 22 U/L (13-56); Albumin, Serum 3.7 g/dL (3.2-5.0); Alkaline Phosphatase 114 U/L (45-117); Anion Gap 6 (5-15); BUN 27 mg/dL (7-18); BUN/Creat Ratio 16.9 RATIO (10-20); Calcium,Total 9.2 mg/dL (8.5-10.1); Chloride 107 mmol/L (98-107); EST Glomerular Filtration Rate 34 mL/min (>60); Est Glom Filt Rate - Afr Amer 41 mL/min (>60); Globulin 3.7 g/dL (2.2-4.2); Glucose 67 mg/dL (74-106); Potassium 4.5 mmol/L (3.5-5.1); Protein, Total 7.4 g/dL (6.4-8.2); Sodium Level 142 mmol/L (136-145)
== END 2020-03-16 18:00 | disposition home or self-care (01) ==
LOC: LAB 13:32
PROVIDERS: Family Provider Nurse Practitioner Family; PCP Nurse Practitioner Family; Referring Provider Nurse Practitioner Family; Visit Provider Nurse Practitioner Family
DX: N18.3 Chronic kidney disease, stage 3 (moderate) (principal); E23.2 Diabetes insipidus; E21.3 Hyperparathyroidism, unspecified
CPT/HCPCS: 36415; 80053

== ENCOUNTER 2020-05-08 11:22 | Outpatient (RCR) | payer MEDICARE, SELFPAY ==
[2020-04-24 13:38] LABS: Hematocrit 39.5 % (37-47); Hemoglobin 12.4 g/dL (12.0-15.0); Mean Corp Hgb Conc 31.4 g/dL (32-36); Mean Corpuscular Hgb 31.1 pg (27.0-32.0); Mean Platelet Vol. 8.3 fl (6.2-12.0); Platelet Count 245 K/mm3 (150-450); RBC Distribution Width SD 43.8 fl (35.1-43.9); Red Blood Count 3.99 M/mm3 (4.2-5.4); White Blood Count 4.1 K/mm3 (4.4-11.0)
[2020-04-24 13:45] LABS: Protein, Urine (Random) 15.9 mg/dL (<11.9); Protein:Creat Ratio 438 mg/g CRE (0-200)
[2020-04-24 14:13] LABS: ALB/GLOB Ratio 1.1 RATIO (0.9-2.4); AST(SGOT) 12 U/L (15-37); Alanine Aminotransfer ALT/SGPT 17 U/L (13-56); Albumin, Serum 3.8 g/dL (3.2-5.0); Alkaline Phosphatase 96 U/L (45-117); Anion Gap 6 (5-15); BUN 32 mg/dL (7-18); BUN/Creat Ratio 16.7 RATIO (10-20); Calcium,Total 10.1 mg/dL (8.5-10.1); Chloride 106 mmol/L (98-107); Creatinine, Serum 1.92 mg/dL (0.55-1.02); EST Glomerular Filtration Rate 27 mL/min (>60); Est Glom Filt Rate - Afr Amer 33 mL/min (>60); Globulin 3.6 g/dL (2.2-4.2); Glucose 124 mg/dL (74-106); PTHIN 68.3 pg/mL (18.4-80.1); Phosphorus 3.6 mg/dL (2.5-4.9); Potassium 4.4 mmol/L (3.5-5.1); Protein, Total 7.4 g/dL (6.4-8.2); Sodium Level 143 mmol/L (136-145)
[2020-04-24 14:17] LABS: Vitamin D,25 Hydroxy 62.6 ng/mL
[2020-05-08 11:48] LABS: Absolute Lymphocyte Count 0.98 X10^3/uL (0.83-4.51); Absolute Neutrophil Count 3.1 X10^3/uL (2.0-7.7); Basophil# 0.03 X10^3/uL; Basophil% 0.7 % (0-1); Eosinophils% 2.2 % (0-5); Hematocrit 38.2 % (37-47); Lymphocyte # 0.98 X10^3/ul (4.0); Lymphocyte % 21.9 % (19-41); Mean Corp Hgb Conc 31.4 g/dL (32-36); Mean Corpuscular Hgb 30.6 pg (27.0-32.0); Mean Corpuscular Volume 97.4 fL (81-99); Mean Platelet Vol. 8.3 fl (6.2-12.0); Monocyte# 0.28 X10^3/uL; Monocyte% 6.3 % (0-10); NRBC Flagged by Analyzer 0 % (0-5); Neutrophil # 3.05 X10^3/uL (2.7-7.7); Platelet Count 245 K/mm3 (150-450); RBC Distribution Width CV 12.2 % (11.6-14.6); RBC Distribution Width SD 43.1 fl (35.1-43.9); Red Blood Count 3.92 M/mm3 (4.2-5.4); White Blood Count 4.5 K/mm3 (4.4-11.0)
[2020-05-08 12:09] LABS: PTHIN 67.8 pg/mL (18.4-80.1)
[2020-05-08 12:20] LABS: ALB/GLOB Ratio 1.1 RATIO (0.9-2.4); AST(SGOT) 12 U/L (15-37); Alanine Aminotransfer ALT/SGPT 18 U/L (13-56); Albumin, Serum 3.7 g/dL (3.2-5.0); Alkaline Phosphatase 102 U/L (45-117); Anion Gap 10 (5-15); BUN 31 mg/dL (7-18); BUN/Creat Ratio 17.7 RATIO (10-20); Calcium,Total 9.6 mg/dL (8.5-10.1); Chloride 104 mmol/L (98-107); Creatinine, Serum 1.75 mg/dL (0.55-1.02); EST Glomerular Filtration Rate 31 mL/min (>60); Est Glom Filt Rate - Afr Amer 37 mL/min (>60); Free T3 2.2 pg/mL (2.18-3.98); Globulin 3.4 g/dL (2.2-4.2); Glucose 172 mg/dL (74-106); Phosphorus 3.4 mg/dL (2.5-4.9); Potassium 4.2 mmol/L (3.5-5.1); Protein, Total 7.1 g/dL (6.4-8.2); Sodium Level 140 mmol/L (136-145); T4 Free Direct 0.91 ng/dL (0.76-1.46); Thyroid Stim Hormone (TSH) 1.11 uIU/mL (0.358-3.74)
== END 2020-05-08 18:00 | disposition home or self-care (01) ==
LOC: LAB 11:22
PROVIDERS: Family Provider Nurse Practitioner Family; PCP Nurse Practitioner Family; Referring Provider Nurse Practitioner Family; Visit Provider Nurse Practitioner Family
DX: N18.3 Chronic kidney disease, stage 3 (moderate) (principal); E55.9 Vitamin D deficiency, unspecified; E05.90 Thyrotoxicosis, unspecified without thyrotoxic crisis or storm; E23.2 Diabetes insipidus; E21.3 Hyperparathyroidism, unspecified; M81.0 Age-related osteoporosis without current pathological fracture
CPT/HCPCS: 36415; 80053; 82306; 82330; 82570; 83970; 84100; 84156; 84439; 84443; 84481; 85025; 85027

== ENCOUNTER 2020-06-07 12:31 | Outpatient (RCR) | payer MEDICARE, SELFPAY ==
[2020-06-07 13:45] LABS: ALB/GLOB Ratio 1.2 RATIO (0.9-2.4); AST(SGOT) 10 U/L (15-37); Alanine Aminotransfer ALT/SGPT 16 U/L (13-56); Alkaline Phosphatase 101 U/L (45-117); Anion Gap 3 (5-15); BUN 27 mg/dL (7-18); BUN/Creat Ratio 18.2 RATIO (10-20); Calcium,Total 10.2 mg/dL (8.5-10.1); Chloride 112 mmol/L (98-107); Creatinine, Serum 1.48 mg/dL (0.55-1.02); EST Glomerular Filtration Rate 37 mL/min (>60); Est Glom Filt Rate - Afr Amer 45 mL/min (>60); Globulin 3.4 g/dL (2.2-4.2); Glucose 72 mg/dL (74-106); Potassium 4.2 mmol/L (3.5-5.1); Protein, Total 7.4 g/dL (6.4-8.2); Sodium Level 144 mmol/L (136-145)
== END 2020-06-07 18:00 | disposition home or self-care (01) ==
LOC: LAB 12:31
PROVIDERS: Family Provider Nurse Practitioner Family; PCP Nurse Practitioner Family; Referring Provider Nurse Practitioner Family; Visit Provider Nurse Practitioner Family
DX: N18.3 Chronic kidney disease, stage 3 (moderate) (principal); E23.2 Diabetes insipidus; E21.3 Hyperparathyroidism, unspecified
CPT/HCPCS: 36415; 80053

== ENCOUNTER 2020-07-05 10:33 | Outpatient (RCR) | payer MEDICARE, SELFPAY ==
[2020-07-05 12:02] LABS: ALB/GLOB Ratio 1.1 RATIO (0.9-2.4); AST(SGOT) 14 U/L (15-37); Alanine Aminotransfer ALT/SGPT 22 U/L (13-56); Albumin, Serum 3.9 g/dL (3.2-5.0); Alkaline Phosphatase 114 U/L (45-117); Anion Gap 6 (5-15); BUN 30 mg/dL (7-18); BUN/Creat Ratio 16.9 RATIO (10-20); Calcium,Total 9.8 mg/dL (8.5-10.1); Chloride 107 mmol/L (98-107); Creatinine, Serum 1.77 mg/dL (0.55-1.02); EST Glomerular Filtration Rate 30 mL/min (>60); Est Glom Filt Rate - Afr Amer 36 mL/min (>60); Globulin 3.5 g/dL (2.2-4.2); Glucose 66 mg/dL (74-106); Potassium 3.8 mmol/L (3.5-5.1); Protein, Total 7.4 g/dL (6.4-8.2); Sodium Level 143 mmol/L (136-145)
== END 2020-07-05 18:00 | disposition home or self-care (01) ==
LOC: LAB 10:33
PROVIDERS: Family Provider Nurse Practitioner Family; PCP Nurse Practitioner Family; Referring Provider Nurse Practitioner Family; Visit Provider Nurse Practitioner Family
DX: N18.3 Chronic kidney disease, stage 3 (moderate) (principal); E23.2 Diabetes insipidus; E21.3 Hyperparathyroidism, unspecified
CPT/HCPCS: 36415; 80053

== ENCOUNTER 2020-08-08 14:12 | Outpatient (RCR) | payer MEDICARE, SELFPAY ==
[2020-08-08 15:19] LABS: ALB/GLOB Ratio 1.1 RATIO (0.9-2.4); AST(SGOT) 13 U/L (15-37); Alanine Aminotransfer ALT/SGPT 18 U/L (13-56); Albumin, Serum 3.8 g/dL (3.2-5.0); Alkaline Phosphatase 104 U/L (45-117); Anion Gap 4 (5-15); BUN 27 mg/dL (7-18); BUN/Creat Ratio 16.8 RATIO (10-20); Calcium,Total 9.9 mg/dL (8.5-10.1); Chloride 108 mmol/L (98-107); Creatinine, Serum 1.61 mg/dL (0.55-1.02); EST Glomerular Filtration Rate 34 mL/min (>60); Est Glom Filt Rate - Afr Amer 41 mL/min (>60); Globulin 3.6 g/dL (2.2-4.2); Glucose 111 mg/dL (74-106); Potassium 4.4 mmol/L (3.5-5.1); Protein, Total 7.4 g/dL (6.4-8.2); Sodium Level 141 mmol/L (136-145)
== END 2020-08-08 18:00 | disposition home or self-care (01) ==
LOC: LAB 14:12
PROVIDERS: Family Provider Nurse Practitioner Family; PCP Nurse Practitioner Family; Referring Provider Nurse Practitioner Family; Visit Provider Nurse Practitioner Family
DX: N18.3 Chronic kidney disease, stage 3 (moderate) (principal); E23.2 Diabetes insipidus; E21.3 Hyperparathyroidism, unspecified
CPT/HCPCS: 36415; 80053

== ENCOUNTER 2020-09-06 13:32 | Outpatient (RCR) | payer MEDICARE, SELFPAY ==
[2020-09-06 15:18] LABS: PTHIN 65.3 pg/mL (18.4-80.1)
[2020-09-06 15:22] LABS: Vitamin D,25 Hydroxy 33.8 ng/mL
[2020-09-06 15:29] LABS: ALB/GLOB Ratio 1.1 RATIO (0.9-2.4); AST(SGOT) 16 U/L (15-37); Alanine Aminotransfer ALT/SGPT 20 U/L (13-56); Albumin, Serum 3.5 g/dL (3.2-5.0); Alkaline Phosphatase 99 U/L (45-117); Anion Gap 6 (5-15); BUN 20 mg/dL (7-18); BUN/Creat Ratio 12.7 RATIO (10-20); Calcium,Total 9.2 mg/dL (8.5-10.1); Chloride 104 mmol/L (98-107); Creatinine, Serum 1.57 mg/dL (0.55-1.02); EST Glomerular Filtration Rate 35 mL/min (>60); Est Glom Filt Rate - Afr Amer 42 mL/min (>60); Free T3 2.6 pg/mL (2.18-3.98); Globulin 3.2 g/dL (2.2-4.2); Glucose 109 mg/dL (74-106); Potassium 4.4 mmol/L (3.5-5.1); Protein, Total 6.7 g/dL (6.4-8.2); Sodium Level 140 mmol/L (136-145); Thyroid Stim Hormone (TSH) 0.29 uIU/mL (0.358-3.74)
[2020-09-07 23:26] LABS: Calcium, Urine (Random) < 5.0 mg/dL (Not Estab.)
[2020-09-10 17:42] LABS: Vitamin D 1,25-Dihydroxy 20.8 pg/mL (19.9-79.3)
== END 2020-09-06 18:00 | disposition home or self-care (01) ==
LOC: LAB 13:32
PROVIDERS: Family Provider Nurse Practitioner Family; PCP Nurse Practitioner Family; Referring Provider Nurse Practitioner Family; Visit Provider Nurse Practitioner Family
DX: N18.2 Chronic kidney disease, stage 2 (mild) (principal); E23.2 Diabetes insipidus; E21.3 Hyperparathyroidism, unspecified
CPT/HCPCS: 36415; 80053; 82306; 82330; 82340; 82570; 82652; 83970; 84100; 84439; 84443; 84481

== ENCOUNTER → 2020-09-08 | Outpatient (CLI) | payer MEDICARE, SELFPAY ==
[2020-09-08 10:40] LABS: 24HR UR TOTAL VOLUME 3200 ml; Calcium Urine pH Range 2; Urine Calcium (Random) < 5.0 (Not Estab.)
== END | disposition home or self-care (01) ==
PROVIDERS: PCP Nurse Practitioner Family; Referring Provider Internal Medicine Endocrinology, Diabetes & Metabolism; Visit Provider Internal Medicine Endocrinology, Diabetes & Metabolism
DX: E21.3 Hyperparathyroidism, unspecified (principal)
CPT/HCPCS: 81050; 82340

== ENCOUNTER 2020-09-27 15:09 | Outpatient (RCR) | payer MEDICARE, SELFPAY ==
[2020-09-27 16:14] LABS: ALB/GLOB Ratio 1.2 RATIO (0.9-2.4); AST(SGOT) 15 U/L (15-37); Alanine Aminotransfer ALT/SGPT 24 U/L (13-56); Alkaline Phosphatase 113 U/L (45-117); Anion Gap 5 (5-15); BUN 25 mg/dL (7-18); BUN/Creat Ratio 13.8 RATIO (10-20); Calcium,Total 10.9 mg/dL (8.5-10.1); Chloride 105 mmol/L (98-107); Creatinine, Serum 1.81 mg/dL (0.55-1.02); EST Glomerular Filtration Rate 29 mL/min (>60); Est Glom Filt Rate - Afr Amer 35 mL/min (>60); Globulin 3.4 g/dL (2.2-4.2); Glucose 96 mg/dL (74-106); Potassium 3.9 mmol/L (3.5-5.1); Protein, Total 7.4 g/dL (6.4-8.2); Sodium Level 138 mmol/L (136-145)
== END 2020-09-27 18:00 | disposition home or self-care (01) ==
LOC: LAB 15:09
PROVIDERS: Family Provider Nurse Practitioner Family; PCP Nurse Practitioner Family; Referring Provider Nurse Practitioner Family; Visit Provider Nurse Practitioner Family
DX: N18.30 Chronic kidney disease, stage 3 unspecified (principal); E23.2 Diabetes insipidus; E21.3 Hyperparathyroidism, unspecified
CPT/HCPCS: 36415; 80053

== ENCOUNTER 2020-10-04 21:22 | Emergency (ER) | payer MEDICARE, SELFPAY ==
[2020-10-04 21:22] VITALS: BP 193/77; PULSE 92; RESP 16; TEMP 36.1; O2SAT 98; BMI 23.6
[2020-10-04 21:54] VITALS: BP 123/72
--- NOTE | 2020-10-04 21:54 | EKG12_ITS ---
Test Reason : DYSRHYTHMIA Blood Pressure : / mmHG Vent. Rate : 094 BPM Atrial Rate : 094 BPM P-R Int : 192 ms QRS Dur : 100 ms QT Int : 356 ms P-R-T Axes : 044 005 056 degrees QTc Int : 445 ms Normal sinus rhythm Normal ECG Confirmed by MODE ORELLANA, MARCELLUS ([id number]), editor producer BRIANA CHUNG ([id number]) on 10/05/2020 11:22:09 AM Referred By: BB Confirmed By:MARCELLUS COELLO MD
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
[2020-10-04 22:07] LABS: Bacteria 0 SEEN /hpf (None Seen); Mucous, Urine 0 SEEN /hpf (<or=2+); Red Blood Cells-Urine 0 SEEN /hpf (0-5); Squamous Epithelial Cells - UA 0 SEEN /hpf (5-10)
[2020-10-04] MEDS: Ziprasidone IM 20 MG/ML VIAL 10 MG IM ×2 (22:08→23:01)
[2020-10-04 22:10] LABS: Color, Urine Yellow (Yellow); Glucose, Dipstick Normal (Normal); Ketone-Dipstick Negative (Negative); Leukocyte Esterase-Dipstick 100 /ul (Negative); Nitrite-Dipstick Negative (Negative); Occult Blood-Urine 250 /ul (Negative); Protein-Dipstick 30 mg/dl (Negative); Specific Gravity, Urine 1.005 (1.002-1.030); Urine Bilirubin Dipstick Negative (Negative); Urine Clarity Sl. Cloudy (Clear); Urine Urobilinogen Normal (Normal); Urine pH 6.5 (5.0 - 8.0)
[2020-10-04 22:20] LABS: White Blood Cells 0-5 SEEN /hpf (0-5)
[2020-10-04 22:34] LABS: Amphetamine Urine VISTA NEGATIVE (<1000 ng/mL); Barbiturate Urine VISTA NEGATIVE (< 200 ng/mL); Benzodiazepine Urine VISTA NEGATIVE (< 200 ng/mL); Cocaine Urine VISTA NEGATIVE (< 300 ng/mL); Ecstacy Urine VISTA NEGATIVE (< 500 ng/mL); Methadone Urine VISTA NEGATIVE (< 300 ng/mL); PCP Urine VISTA NEGATIVE (< 25 ng/mL); THC Urine VISTA POSITIVE (< 50 ng/mL); Vista UDS pH Range 6
[2020-10-04 22:47] LABS: Absolute Lymphocyte Count 1.25 X10^3/uL (0.83-4.51); Absolute Neutrophil Count 8.7 X10^3/uL (2.0-7.7); Basophil# 0.02 X10^3/uL; Basophil% 0.2 % (0-1); Eosinophil# 0.04 X10^3/uL; Eosinophils% 0.4 % (0-5); Hematocrit 34.9 % (37-47); Hemoglobin 11.3 g/dL (12.0-15.0); Lymphocyte # 1.25 X10^3/ul (4.0); Lymphocyte % 11.3 % (19-41); Mean Corp Hgb Conc 32.4 g/dL (32-36); Mean Corpuscular Hgb 30.5 pg (27.0-32.0); Mean Corpuscular Volume 94.1 fL (81-99); Monocyte# 0.99 X10^3/uL; Monocyte% 8.9 % (0-10); NRBC Flagged by Analyzer 0 % (0-5); Neutrophil # 8.74 X10^3/uL (2.7-7.7); Neutrophil % 78.9 % (47-70); Platelet Count 313 K/mm3 (150-450); RBC Distribution Width SD 41.6 fl (35.1-43.9); Red Blood Count 3.71 M/mm3 (4.2-5.4); White Blood Count 11.1 K/mm3 (4.4-11.0)
[2020-10-04 23:00] VITALS: RESP 24
[2020-10-04 23:05] LABS: Alcohol, Blood (Medical)-Serum < 3.0 mg/dL
[2020-10-04 23:12] LABS: ALB/GLOB Ratio 1.1 RATIO (0.9-2.4); AST(SGOT) 124 U/L (15-37); Alanine Aminotransfer ALT/SGPT 69 U/L (13-56); Albumin, Serum 3.7 g/dL (3.2-5.0); Alkaline Phosphatase 123 U/L (45-117); Anion Gap 4 (5-15); BUN 22 mg/dL (7-18); BUN/Creat Ratio 12.9 RATIO (10-20); Calcium,Total 10.4 mg/dL (8.5-10.1); Chloride 99 mmol/L (98-107); Creatinine, Serum 1.71 mg/dL (0.55-1.02); EST Glomerular Filtration Rate 31 mL/min (>60); Est Glom Filt Rate - Afr Amer 38 mL/min (>60); Estimated Creatinine Clearance 27.15 ml/min; Globulin 3.5 g/dL (2.2-4.2); Glucose 114 mg/dL (74-106); Potassium 4.2 mmol/L (3.5-5.1); Protein, Total 7.2 g/dL (6.4-8.2); Sodium Level 135 mmol/L (136-145); Thyroid Stim Hormone (TSH) 0.39 uIU/mL (0.358-3.74)
[2020-10-04] MEDS: DiphenhydrAMINE 50 MG/ML Syringe 12.5 MG IV (23:55)
[2020-10-04] MEDS: Haloperidol Lactate 5 MG/ML Vial 2 MG IV (23:55)
--- NOTE | 2020-10-05 | RAD_ITS ---
HISTORY: MEDICAL CLEARANCEESCALATING BIPOLARBEST IMAGE POSSIBLE, PATIENT VERY AGITATED AND WOULD NOT FOLLOW ORDERS EXAM: XR Chest 1 View: COMPARISON: July 05, 2018 FINDINGS: # of images incl. paperwork: 1 Kyphosis may be more severe Lungs are clear. Heart is not enlarged. No acute osseous pathology perceived. Pulmonary vascularity is distinct. No effusions. RAD/Chest 1 View (Portable) IMPRESSION: No acute perceived cardiopulmonary disease. at 0044 Reported and signed by: Eben Arzola MD Electronically Signed: Eben Arzola MD at 0:43 EST Tel , Service support ,
--- NOTE | 2020-10-05 00:10 | CT_ITS ---
HISTORY: MENTAL STATUS CHANGE Technique:CT Head or Brain W/O Contrast Injection. Sagittal and coronal 2-D reformats Number of Images including paperwork:245 Comparison: June 29, 2018 Findings: Periventricular deep and subcortical white matter disease is present. More focal white matter disease is present inferiorly within the left external capsule just deep to the left insular cortex. This was present on the previous study and is not acute Paranasal sinuses are clear. The brain is atrophic. Calcific ASCVD involves intracranial arteries. No acute intracranial edema or hemorrhage. No acute abnormality of orbits. Middle ear cavities and mastoid air cells are well aerated. Skull is normal. CT/Brain/Head without Contrast IMPRESSION: No acute intracranial abnormality. Chronic changes as above. ASPECT 10. Individualized dose optimization techniques were used for this CT. at 0300 Reported and signed by: Eben Arzola MD Electronically Signed: Eben Arzola MD at 2:58 EST Tel , Service support ,
[2020-10-05 01:00] VITALS: RESP 20
[2020-10-05] MEDS: LORazepam 2 MG/ML Syringe 1 MG IV (01:07)
[2020-10-05 02:20] VITALS: BP 152/78; PULSE 89; RESP 16; O2SAT 98
[2020-10-05 08:27] VITALS: BP 171/104; PULSE 90; RESP 16; O2SAT 98
[2020-10-05] MEDS: cloNIDine HCl 0.1 MG Tablet PO (09:10)
[2020-10-05 10:00] VITALS: BP 123/72; PULSE 82
--- NOTE | 2020-10-05 10:25 | CM.ED ---
SOCIAL WORK Updated by staff, Crisis has assessed patient and is working on placement at [facility]. Faustino Shaw, PIPE SMOKING MACHINE OFFBEARER, CLEANER TOUCH UP WORKER
[2020-10-05 12:29] VITALS: BP 155/95; PULSE 89; RESP 18; O2SAT 96
[2020-10-05] MEDS: Midazolam 2 MG/2 ML Syringe IM (13:55)
[2020-10-05] MEDS: Haloperidol Lactate 5 MG/ML Vial IM (13:55)
--- NOTE | 2020-10-05 13:57 | ED.RN ---
PT BECAME VERY AGITATED WHEN TRANSPORT ARRIVED TO TRANSPORT PT TO [facility]. VERBAL DE-ESCALATION UNSUCCESSFUL. MEDICATED PER MD ORDERS. PT LEFT DEPARTMENT WITH NO FURTHER INCIDENT.
[2020-10-05 14:03] VITALS: BP 148/72; PULSE 89; RESP 18; O2SAT 97
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
== END 2020-10-05 14:04 ==
PROVIDERS: Emergency Provider Emergency Medicine; PCP Nurse Practitioner Family
DX: F31.9 Bipolar disorder, unspecified (principal); R45.1 Restlessness and agitation; N25.1 Nephrogenic diabetes insipidus; N18.30 Chronic kidney disease, stage 3 unspecified; E83.52 Hypercalcemia; E07.81 Sick-euthyroid syndrome; T14.8XXA Other injury of unspecified body region, initial encounter; X58.XXXA Exposure to other specified factors, initial encounter; Y93.9 Activity, unspecified; Y92.9 Unspecified place or not applicable; Y99.9 Unspecified external cause status; Z79.899 Other long term (current) drug therapy; Z87.891 Personal history of nicotine dependence
CPT/HCPCS: 70450; 71045; 80053; 80307; 80320; 81001; 84443; 85025; 87086; 87088; 87426; 93005; 96372; 96374; 96375; 99285; A4216; G0480; J3486

== ENCOUNTER 2021-01-07 11:10 | Outpatient (RCR) | payer MEDICARE, SELFPAY | END 2021-01-07 23:59 | LOC: IMMUN 11:10 | PROVIDERS: PCP Nurse Practitioner Family; Visit Provider Family Medicine | DX: Z23 Encounter for immunization (principal) | CPT/HCPCS: 0011A; 0012A ==

== ENCOUNTER 2021-01-21 10:52 | Outpatient (RCR) | payer MEDICARE, SELFPAY ==
[2021-01-07 14:28] LABS: Hematocrit 32.5 % (37-47); Hemoglobin 10.8 g/dL (12.0-15.0); Mean Corp Hgb Conc 33.2 g/dL (32-36); Mean Corpuscular Hgb 33.6 pg (27.0-32.0); Mean Corpuscular Volume 101.2 fL (81-99); Mean Platelet Vol. 9.1 fl (6.2-12.0); Platelet Count 260 K/mm3 (150-450); RBC Distribution Width CV 13.2 % (11.6-14.6); RBC Distribution Width SD 47.8 fl (35.1-43.9); Red Blood Count 3.21 M/mm3 (4.2-5.4); White Blood Count 5.7 K/mm3 (4.4-11.0)
[2021-01-07 14:42] LABS: Creatinine, Urine (random) < 13.00 mg/dL (NO RANGE EST.)
[2021-01-07 14:54] LABS: PTHIN 89.8 pg/mL (18.4-80.1)
[2021-01-07 15:07] LABS: AST(SGOT) 21 U/L (15-37); Alanine Aminotransfer ALT/SGPT 21 U/L (13-56); Albumin, Serum 3.4 g/dL (3.2-5.0); Alkaline Phosphatase 96 U/L (45-117); Anion Gap 7 (5-15); BUN 24 mg/dL (7-18); BUN/Creat Ratio 18.5 RATIO (10-20); Calcium,Total 9.7 mg/dL (8.5-10.1); Chloride 106 mmol/L (98-107); EST Glomerular Filtration Rate 43 mL/min (>60); Est Glom Filt Rate - Afr Amer 52 mL/min (>60); Free T3 3.3 pg/mL (2.18-3.98); Globulin 3.5 g/dL (2.2-4.2); Glucose 83 mg/dL (74-106); Potassium 4.3 mmol/L (3.5-5.1); Protein, Total 6.9 g/dL (6.4-8.2); Sodium Level 140 mmol/L (136-145); T4 Free Direct 1.12 ng/dL (0.76-1.46); Thyroid Stim Hormone (TSH) 0.01 uIU/mL (0.358-3.74)
[2021-01-11 16:28] LABS: Vitamin D 1,25-Dihydroxy 20.2 pg/mL (19.9-79.3)
[2021-01-21 11:49] LABS: Protein, Urine (Random) 18.4 mg/dL (<11.9); Protein:Creat Ratio 719 mg/g CRE (0-200)
[2021-01-21 12:05] LABS: ALB/GLOB Ratio 1.1 RATIO (0.9-2.4); AST(SGOT) 18 U/L (15-37); Alanine Aminotransfer ALT/SGPT 21 U/L (13-56); Albumin, Serum 3.7 g/dL (3.2-5.0); Alkaline Phosphatase 93 U/L (45-117); Anion Gap 5 (5-15); BUN 18 mg/dL (7-18); BUN/Creat Ratio 12.8 RATIO (10-20); Calcium,Total 10.1 mg/dL (8.5-10.1); Chloride 109 mmol/L (98-107); Creatinine, Serum 1.41 mg/dL (0.55-1.02); EST Glomerular Filtration Rate 39 mL/min (>60); Est Glom Filt Rate - Afr Amer 47 mL/min (>60); Globulin 3.4 g/dL (2.2-4.2); Glucose 90 mg/dL (74-106); Protein, Total 7.1 g/dL (6.4-8.2); Sodium Level 143 mmol/L (136-145)
== END 2021-01-21 18:00 | disposition home or self-care (01) ==
LOC: LAB 10:52
PROVIDERS: Internal Medicine Endocrinology, Diabetes & Metabolism; Family Provider Nurse Practitioner Family; PCP Nurse Practitioner Family; Referring Provider Nurse Practitioner Family; Visit Provider Nurse Practitioner Family
DX: N18.30 Chronic kidney disease, stage 3 unspecified (principal); E23.2 Diabetes insipidus; E21.3 Hyperparathyroidism, unspecified
CPT/HCPCS: 36415; 80053; 82330; 82570; 82652; 83970; 84100; 84156; 84439; 84443; 84481; 85027

== ENCOUNTER 2021-02-07 11:01 | Outpatient (RCR) | payer MEDICARE, SELFPAY ==
[2021-01-22 10:05] VITALS: BMI 20.4
[2021-02-07 12:08] LABS: ALB/GLOB Ratio 1.1 RATIO (0.9-2.4); AST(SGOT) 14 U/L (15-37); Alanine Aminotransfer ALT/SGPT 22 U/L (13-56); Albumin, Serum 3.5 g/dL (3.2-5.0); Alkaline Phosphatase 98 U/L (45-117); Anion Gap 4 (5-15); BUN 38 mg/dL (7-18); BUN/Creat Ratio 27.7 RATIO (10-20); Calcium,Total 9.7 mg/dL (8.5-10.1); Chloride 109 mmol/L (98-107); Creatinine, Serum 1.37 mg/dL (0.55-1.02); EST Glomerular Filtration Rate 40 mL/min (>60); Est Glom Filt Rate - Afr Amer 49 mL/min (>60); Globulin 3.3 g/dL (2.2-4.2); Glucose 77 mg/dL (74-106); Potassium 4.6 mmol/L (3.5-5.1); Protein, Total 6.8 g/dL (6.4-8.2); Sodium Level 141 mmol/L (136-145)
== END 2021-02-07 18:00 | disposition home or self-care (01) ==
LOC: LAB 11:01
PROVIDERS: Family Provider Nurse Practitioner Family; PCP Nurse Practitioner Family; Referring Provider Nurse Practitioner Family; Visit Provider Nurse Practitioner Family
DX: E21.3 Hyperparathyroidism, unspecified (principal)
CPT/HCPCS: 36415; 80053

== ENCOUNTER 2021-03-13 14:21 | Outpatient (RCR) | payer MEDICARE, SELFPAY ==
[2021-01-22 10:05] VITALS: BMI 20.4
[2021-03-13 15:14] LABS: ALB/GLOB Ratio 1.2 RATIO (0.9-2.4); AST(SGOT) 18 U/L (15-37); Alanine Aminotransfer ALT/SGPT 26 U/L (13-56); Albumin, Serum 3.8 g/dL (3.2-5.0); Alkaline Phosphatase 97 U/L (45-117); Anion Gap 4 (5-15); BUN 25 mg/dL (7-18); BUN/Creat Ratio 18.5 RATIO (10-20); Calcium,Total 9.7 mg/dL (8.5-10.1); Chloride 107 mmol/L (98-107); Creatinine, Serum 1.35 mg/dL (0.55-1.02); EST Glomerular Filtration Rate 41 mL/min (>60); Est Glom Filt Rate - Afr Amer 50 mL/min (>60); Globulin 3.3 g/dL (2.2-4.2); Glucose 83 mg/dL (74-106); Potassium 4.4 mmol/L (3.5-5.1); Protein, Total 7.1 g/dL (6.4-8.2); Sodium Level 139 mmol/L (136-145)
== END 2021-03-13 18:00 | disposition home or self-care (01) ==
LOC: LAB 14:21
PROVIDERS: Family Provider Nurse Practitioner Family; PCP Nurse Practitioner Family; Referring Provider Nurse Practitioner Family; Visit Provider Nurse Practitioner Family
DX: E21.3 Hyperparathyroidism, unspecified (principal)
CPT/HCPCS: 36415; 80053

== ENCOUNTER 2021-04-22 15:25 | Outpatient (RCR) | payer MEDICARE, SELFPAY ==
[2021-01-22 10:05] VITALS: BMI 20.4
[2021-04-22 17:22] LABS: Hematocrit 38.6 % (37-47); Hemoglobin 12.4 g/dL (12.0-15.0); Mean Corp Hgb Conc 32.1 g/dL (32-36); Mean Corpuscular Hgb 29.7 pg (27.0-32.0); Mean Corpuscular Volume 92.6 fL (81-99); Mean Platelet Vol. 8.7 fl (6.2-12.0); Platelet Count 252 K/mm3 (150-450); RBC Distribution Width CV 13.4 % (11.6-14.6); RBC Distribution Width SD 45.8 fl (35.1-43.9); Red Blood Count 4.17 M/mm3 (4.2-5.4); White Blood Count 6.5 K/mm3 (4.4-11.0)
[2021-04-22 17:49] LABS: ALB/GLOB Ratio 1.2 RATIO (0.9-2.4); AST(SGOT) 19 U/L (15-37); Alanine Aminotransfer ALT/SGPT 25 U/L (13-56); Albumin, Serum 3.8 g/dL (3.2-5.0); Alkaline Phosphatase 86 U/L (45-117); Anion Gap 8 (5-15); BUN 27 mg/dL (7-18); BUN/Creat Ratio 19.9 RATIO (10-20); Calcium,Total 9.5 mg/dL (8.5-10.1); Chloride 106 mmol/L (98-107); Creatinine, Serum 1.36 mg/dL (0.55-1.02); EST Glomerular Filtration Rate 41 mL/min (>60); Est Glom Filt Rate - Afr Amer 49 mL/min (>60); Free T3 2.7 pg/mL (2.18-3.98); Globulin 3.2 g/dL (2.2-4.2); Glucose 73 mg/dL (74-106); Potassium 4.4 mmol/L (3.5-5.1); Sodium Level 140 mmol/L (136-145); T4 Free Direct 0.87 ng/dL (0.76-1.46); Thyroid Stim Hormone (TSH) 0.96 uIU/mL (0.358-3.74)
[2021-04-22 17:50] LABS: Vitamin D,25 Hydroxy 48.1 ng/mL
[2021-04-23 07:58] LABS: PTHIN 76.1 pg/mL (18.4-80.1)
== END 2021-04-22 18:00 | disposition home or self-care (01) ==
LOC: LAB 15:25
PROVIDERS: Family Provider Nurse Practitioner Family; PCP Nurse Practitioner Family; Referring Provider Nurse Practitioner Family; Visit Provider Nurse Practitioner Family
DX: E21.3 Hyperparathyroidism, unspecified (principal); E05.90 Thyrotoxicosis, unspecified without thyrotoxic crisis or storm; E23.2 Diabetes insipidus; N18.30 Chronic kidney disease, stage 3 unspecified; M81.0 Age-related osteoporosis without current pathological fracture
CPT/HCPCS: 36415; 80053; 82306; 82330; 83970; 84439; 84443; 84481; 85027

== ENCOUNTER 2021-05-02 14:00 | Outpatient (RCR) | payer MEDICARE, SELFPAY ==
[2021-01-22 10:05] VITALS: BMI 20.4
--- NOTE | 2021-03-12 13:27 | HP.OTEVAL_ITS ---
Patient's Visit Information SIMONA HERNANDEZ is a 70 year old F, referred to Occupational Therapy by LUBA Skinner, with a diagnosis of right hand pain. Date of Evaluation: 03/11/21 Occupational Therapist: Ade Lisa, LUIS/Pedro Pablo, CHT - Subjective This 70 year old female was seen for OT eval with dx of right hand pain -. pt states she has not been able to flatten her hand since she got out of the hospital. pt is concerned because she is having difficulty with placing her hand in her pocket, perform ADLs and IADLS. hospital stay is was from 2019 2020. pt states she has been going to Physical therapy at [facility]. pt states she has had some tingling in her fingers thumb and tips of other fingers. spouse states she had no limitations prior to her hospital admission. - Pain right hand 1 Pain Intensity Range: 2 - ROM Wrist: left 60/60 right 50/40 ROM Comments: right IF MCP -25/75 left 0/85 right PIP 0/90 left 0/100 right DIP 0/40 left 0/55. right MF MCP -25/85 left 0/90 right PIP -15/100 left 0/105 right DIP 0/35 left 0/60. right RF MCP -15/85 left 0/90 right PIP -35/100 left 0/95 right DIP 0/30 left 0/50. right LF MCP -10/90 left 0/90 right PIP -35/95 left 0/95 right DIP 0/35 left 0/40. 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 Pt will demo an increase in lateral and tripod pinch by 2# to increase pts independent with opening baggies, containers at PLOF by D/C. Goal:: Pt will demo the ability to form a composite fist to hold and receive 10 coins without dropping coins/ and coin manipulation/money mtg. tasks and ind. With manipulating fasteners for dressing by D/C. Pt will demo the ability to form a composite fist to return to performing BADLs and IADLS at PLOF by d/c. pt will demo the ability to extend digits to flatten hand to wipe table top off by d/c Goal:: Pt will report pain no greater than 1/10 with use of affected hand with BADLs and IADLs by d/c. Goal:: Pt will demo understanding of adaptive Equipment use to decrease stress on joints to allow pt to perform BADSL and IADLS at SCOTT level. - Rehabilitation General Assessment: pt demo with signs similar to Dupuytren's contracture along with PIP joint tightness limiting pts ability to straighten or form a tight composite fist for ADLs and IADls. pt also c/o pain with movement and use. Pt would benefit from skilled OT services 1-2x week for 6 weeks to return pts ROM for pt to return to using her right hand with ADLs and IADLs. today therapist ed. pt on tendon glide exercises, heat and limiting pts resting or prolonged digit flexed positioning. pt demo understanding and agree to POC Rehabilitation Potential: Good - Anticipated Interventions A/AAROM/PROM, Strengthening, Triggerpoint Release, Modalities, Orthoses, Joint Protection/Energy Conservation, Ergonomic Education, Fine Motor Coord/Wilmer, Education re assistive Equipment, Education re Diagnosis - Visit Plan Frequency: 1-2x /Week Duration: 6 Weeks TEXT: Thank you for the opportunity to evaluate your patient. For Medicare and Medicare HMO plans, please review the plan of care and approve it. It will need to be FAXED BACK to us at [phone] for Medicare purposes. Please let me know if there are questions or concerns regarding this plan of care. Physician Signature: Date:
--- NOTE | 2021-05-08 15:26 | HP.OTDCSUM ---
It has been my pleasure to treat SIMONA HERNANDEZ under orders from LUBA Skinner, for the diagnosis of right hand pain for a total of 15 visit(s). Please see the following information for a summary of their discharge status. % Improvement: 85 Objective/Function: During BTE program, pt seemed to fatigue. pt demo increase in BUE MMT by 1/2 MM grade- both pt and spouse report compliance with her HEP and they have noticed improvement in Simona's strength. Patient Goals: Regain Mobility, Decrease Pain Goal:: PT will demo an increase in trigonometry tutor strength by 20# to increase independent with basic occupations of daily living to return pt to PLOF by D/C. Pt will demo an increase in lateral and tripod pinch by 2# to increase pts independent with opening baggies, containers at PLOF by D/C. Goal:: Pt will demo the ability to form a composite fist to hold and receive 10 coins without dropping coins/ and coin manipulation/money mtg. tasks and ind. With manipulating fasteners for dressing by D/C. Pt will demo the ability to form a composite fist to return to performing BADLs and IADLS at PLOF by d/c. pt will demo the ability to extend digits to flatten hand to wipe table top off by d/c Goal:: Pt will report pain no greater than 1/10 with use of affected hand with BADLs and IADLs by d/c. Goal:: Pt will demo understanding of adaptive Equipment use to decrease stress on joints to allow pt to perform BADSL and IADLS at SCOTT level. Plan: cont w/ PRE Discharge Comments: Pt was seen for 15 visits to increase strength and ROM in BUE. Pt reported a 80% improvement in strength, and reported an increase in IND in ADLs and IADLs. Pt understands to continue with home exercise program and possible [employer] membership. Pt agrees with d/c. Therapy session directly supervised and doc. approved by Ade SMITH/LUIS ALBERTO Chamorro If there are questions or concerns regarding this patient's occupational therapy, please fell free to call me at [phone]. Thank you for the referral of this patient. Sincerely, LUIS Ribeiro/Pedro Pablo, LUIS ALBERTO
== END 2021-05-02 19:00 | disposition home or self-care (01) ==
LOC: OT 14:00
PROVIDERS: PCP Nurse Practitioner Family; Referring Provider Physician Assistant; Visit Provider Physician Assistant
DX: M79.641 Pain in right hand (principal); R20.2 Paresthesia of skin; M19.041 Primary osteoarthritis, right hand
CPT/HCPCS: 97110; 97140; 97166; 97530

== ENCOUNTER 2021-06-05 13:28 | Outpatient (RCR) | payer MEDICARE, SELFPAY ==
[2021-01-22 10:05] VITALS: BMI 20.4
[2021-06-05 16:02] LABS: ALB/GLOB Ratio 1.2 RATIO (0.9-2.4); AST(SGOT) 17 U/L (15-37); Alanine Aminotransfer ALT/SGPT 24 U/L (13-56); Alkaline Phosphatase 82 U/L (45-117); Anion Gap 7 (5-15); BUN 29 mg/dL (7-18); BUN/Creat Ratio 21.2 RATIO (10-20); Calcium,Total 9.9 mg/dL (8.5-10.1); Chloride 107 mmol/L (98-107); Creatinine, Serum 1.37 mg/dL (0.55-1.02); EST Glomerular Filtration Rate 40 mL/min (>60); Est Glom Filt Rate - Afr Amer 49 mL/min (>60); Globulin 3.2 g/dL (2.2-4.2); Glucose 80 mg/dL (74-106); Potassium 4.2 mmol/L (3.5-5.1); Protein, Total 7.2 g/dL (6.4-8.2); Sodium Level 139 mmol/L (136-145)
== END 2021-06-05 18:00 | disposition home or self-care (01) ==
LOC: LAB 13:28
PROVIDERS: Family Provider Nurse Practitioner Family; PCP Nurse Practitioner Family; Referring Provider Nurse Practitioner Family; Visit Provider Nurse Practitioner Family
DX: E21.3 Hyperparathyroidism, unspecified (principal)
CPT/HCPCS: 36415; 80053

== ENCOUNTER 2021-07-01 13:31 | Outpatient (RCR) | payer MEDICARE, SELFPAY ==
[2021-01-22 10:05] VITALS: BMI 20.4
[2021-07-01 15:18] LABS: Hematocrit 38.6 % (37-47); Hemoglobin 12.2 g/dL (12.0-15.0); Mean Corp Hgb Conc 31.6 g/dL (32-36); Mean Corpuscular Hgb 30.7 pg (27.0-32.0); Mean Corpuscular Volume 97.2 fL (81-99); Platelet Count 244 K/mm3 (150-450); RBC Distribution Width CV 12.6 % (11.6-14.6); RBC Distribution Width SD 45.1 fl (35.1-43.9); Red Blood Count 3.97 M/mm3 (4.2-5.4); White Blood Count 5.5 K/mm3 (4.4-11.0)
[2021-07-01 15:45] LABS: Vitamin D,25 Hydroxy 53.1 ng/mL
[2021-07-01 15:50] LABS: ALB/GLOB Ratio 1.3 RATIO (0.9-2.4); AST(SGOT) 20 U/L (15-37); Alanine Aminotransfer ALT/SGPT 28 U/L (13-56); Albumin, Serum 4.2 g/dL (3.2-5.0); Alkaline Phosphatase 81 U/L (45-117); Anion Gap 8 (5-15); BUN 28 mg/dL (7-18); BUN/Creat Ratio 20.7 RATIO (10-20); Chloride 107 mmol/L (98-107); Creatinine, Serum 1.35 mg/dL (0.55-1.02); EST Glomerular Filtration Rate 41 mL/min (>60); Est Glom Filt Rate - Afr Amer 50 mL/min (>60); Free T3 2.8 pg/mL (2.18-3.98); Globulin 3.2 g/dL (2.2-4.2); Glucose 74 mg/dL (74-106); Potassium 4.3 mmol/L (3.5-5.1); Protein, Total 7.4 g/dL (6.4-8.2); Sodium Level 140 mmol/L (136-145); T4 Free Direct 0.96 ng/dL (0.76-1.46); Thyroid Stim Hormone (TSH) 1.09 uIU/mL (0.358-3.74)
== END 2021-07-01 18:00 | disposition home or self-care (01) ==
LOC: LAB 13:31
PROVIDERS: Family Provider Nurse Practitioner Family; PCP Nurse Practitioner Family; Referring Provider Nurse Practitioner Family; Visit Provider Nurse Practitioner Family
DX: N18.30 Chronic kidney disease, stage 3 unspecified (principal); I26.99 Other pulmonary embolism without acute cor pulmonale; E05.90 Thyrotoxicosis, unspecified without thyrotoxic crisis or storm; E21.3 Hyperparathyroidism, unspecified; E23.2 Diabetes insipidus; E55.9 Vitamin D deficiency, unspecified
CPT/HCPCS: 36415; 80053; 82306; 84439; 84443; 84481; 85027

== ENCOUNTER → 2021-07-19 12:25 | Outpatient (CLI) | payer MEDICARE, SELFPAY ==
--- NOTE | 2021-07-19 12:44 | MRI_ITS ---
STUDY: MRI LUMBAR SPINE WITHOUT CONTRAST REASON FOR EXAM: Female, 71 years old. BACK PAIN LEG PAIN TECHNIQUE: Standardized fat and water weighted pulse sequences were obtained in the sagittal and axial planes. was administered for the contrast portion of the examination. COMPARISON: Plain films 29 April 2019 FINDINGS: There are presumably bilateral renal cysts. There is no hydronephrosis. T11-T12: Normal endplates. Normal disc height, hydration and morphology. Normal bilateral facet joints. Normal central canal and bilateral lateral recesses. Normal bilateral intervertebral neural foramina. T12-L1: Normal endplates. Normal disc height, hydration and morphology. Normal bilateral facet joints. Normal central canal and bilateral lateral recesses. Normal bilateral intervertebral neural foramina. There is mild dextroscoliosis with intact lateral alignment. Conus terminates at T12-L1. Cauda equina is normal. L1-2: Normal endplates. Normal disc height, hydration and morphology. Normal bilateral facet joints. Normal central canal and bilateral lateral recesses. Normal bilateral intervertebral neural foramina. L2-3: Normal endplates. Normal disc height, hydration and morphology. Normal bilateral facet joints. Normal central canal and bilateral lateral recesses. Normal bilateral intervertebral neural foramina. L3-4: Degenerated endplates. Decreased disc height, degenerative hydration and degenerative morphology with broad disc bulge.. Degenerated bilateral facet joints. Normal central canal and bilateral lateral recesses. Left foramen is moderately stenotic, right foramen is patent. L4-5: Degenerated endplates. Normal decreased disc height, hydration and degenerative morphology with disc bulge and endplate osteophytes. Normal degenerated bilateral facet joints. Left foramen is mildly stenotic, right is patent. Right lateral recess is mildly stenotic, left is patent. L5-S1: Normal endplates. Normal disc height, hydration and morphology. Normal bilateral facet joints. Normal central canal and bilateral lateral recesses. Moderate right foraminal stenosis with patent left renal. Normal visualized sacral ala. Normal visualized paraspinous soft tissue structures. MRI/Spine Lumbar (Routine) IMPRESSION: 1. Spondylosis. 2. Patent thecal sac. 3. Scattered mild/moderate foraminal stenoses. Electronically Signed: Jesse Noel MD at 17:27 EDT Tel , Service support ,
== END ==
PROVIDERS: PCP Nurse Practitioner Family; Referring Provider Anesthesiology Pain Medicine; Visit Provider Anesthesiology Pain Medicine
DX: M54.9 Dorsalgia, unspecified (principal); M79.606 Pain in leg, unspecified
CPT/HCPCS: 72148

== ENCOUNTER 2021-07-22 13:45 | Outpatient (RCR) | payer MEDICARE, SELFPAY ==
[2021-07-10 00:25] VITALS: BMI 20.4
[2021-07-22 15:34] LABS: Protein, Urine (Random) 11.8 mg/dL (<11.9); Protein:Creat Ratio 490 mg/g CRE (0-200)
[2021-07-22 15:45] LABS: ALB/GLOB Ratio 1.1 RATIO (0.9-2.4); AST(SGOT) 17 U/L (15-37); Alanine Aminotransfer ALT/SGPT 27 U/L (13-56); Albumin, Serum 3.8 g/dL (3.2-5.0); Alkaline Phosphatase 78 U/L (45-117); Anion Gap 8 (5-15); BUN 35 mg/dL (7-18); Calcium,Total 9.7 mg/dL (8.5-10.1); Chloride 104 mmol/L (98-107); Creatinine, Serum 1.59 mg/dL (0.55-1.02); EST Glomerular Filtration Rate 34 mL/min (>60); Est Glom Filt Rate - Afr Amer 41 mL/min (>60); Globulin 3.5 g/dL (2.2-4.2); Glucose 82 mg/dL (74-106); Potassium 4.4 mmol/L (3.5-5.1); Protein, Total 7.3 g/dL (6.4-8.2); Sodium Level 139 mmol/L (136-145)
== END 2021-07-22 18:00 | disposition home or self-care (01) ==
LOC: LAB 13:45
PROVIDERS: Family Provider Nurse Practitioner Family; PCP Nurse Practitioner Family; Referring Provider Nurse Practitioner Family; Visit Provider Nurse Practitioner Family
DX: E21.3 Hyperparathyroidism, unspecified (principal)
CPT/HCPCS: 36415; 80053; 82570; 84156

== ENCOUNTER → 2021-07-29 13:19 | Outpatient (CLI) | payer MEDICARE, SELFPAY ==
[2021-07-29 13:59] LABS: PTHIN 72.6 pg/mL (18.4-80.1)
[2021-07-29 14:08] LABS: ALB/GLOB Ratio 1.1 RATIO (0.9-2.4); AST(SGOT) 12 U/L (15-37); Alanine Aminotransfer ALT/SGPT 28 U/L (13-56); Albumin, Serum 3.9 g/dL (3.2-5.0); Alkaline Phosphatase 80 U/L (45-117); Anion Gap 5 (5-15); BUN 32 mg/dL (7-18); BUN/Creat Ratio 21.5 RATIO (10-20); Calcium,Total 9.7 mg/dL (8.5-10.1); Chloride 110 mmol/L (98-107); Creatinine, Serum 1.49 mg/dL (0.55-1.02); EST Glomerular Filtration Rate 37 mL/min (>60); Est Glom Filt Rate - Afr Amer 44 mL/min (>60); Free T3 2.9 pg/mL (2.18-3.98); Globulin 3.6 g/dL (2.2-4.2); Glucose 97 mg/dL (74-106); Phosphorus 3.2 mg/dL (2.5-4.9); Potassium 4.5 mmol/L (3.5-5.1); Protein, Total 7.5 g/dL (6.4-8.2); Sodium Level 140 mmol/L (136-145); Thyroid Stim Hormone (TSH) 0.86 uIU/mL (0.358-3.74)
== END ==
PROVIDERS: PCP Nurse Practitioner Family; Referring Provider Internal Medicine Endocrinology, Diabetes & Metabolism; Visit Provider Internal Medicine Endocrinology, Diabetes & Metabolism
DX: N18.30 Chronic kidney disease, stage 3 unspecified (principal); E05.90 Thyrotoxicosis, unspecified without thyrotoxic crisis or storm; M81.0 Age-related osteoporosis without current pathological fracture; E55.9 Vitamin D deficiency, unspecified; E21.3 Hyperparathyroidism, unspecified
CPT/HCPCS: 36415; 80053; 82330; 83970; 84100; 84439; 84443; 84481

== ENCOUNTER 2021-08-28 13:54 | Outpatient (RCR) | payer MEDICARE, SELFPAY ==
[2021-08-08 22:09] VITALS: BMI 20.4
[2021-08-28 16:11] LABS: ALB/GLOB Ratio 0.9 RATIO (0.9-2.4); AST(SGOT) 17 U/L (15-37); Alanine Aminotransfer ALT/SGPT 22 U/L (13-56); Albumin, Serum 3.4 g/dL (3.2-5.0); Alkaline Phosphatase 91 U/L (45-117); Anion Gap 6 (5-15); BUN 24 mg/dL (7-18); BUN/Creat Ratio 18.8 RATIO (10-20); Calcium,Total 9.8 mg/dL (8.5-10.1); Chloride 108 mmol/L (98-107); Creatinine, Serum 1.28 mg/dL (0.55-1.02); EST Glomerular Filtration Rate 44 mL/min (>60); Est Glom Filt Rate - Afr Amer 53 mL/min (>60); Globulin 3.8 g/dL (2.2-4.2); Glucose 80 mg/dL (74-106); Potassium 4.8 mmol/L (3.5-5.1); Protein, Total 7.2 g/dL (6.4-8.2); Sodium Level 140 mmol/L (136-145)
[2021-08-28 16:12] LABS: Creatinine, Urine (random) < 13.00 mg/dL (NO RANGE EST.); Protein, Urine (Random) 37.1 mg/dL (<11.9)
== END 2021-09-08 18:00 | disposition home or self-care (01) ==
LOC: LAB 13:54
PROVIDERS: Family Provider Nurse Practitioner Family; PCP Nurse Practitioner Family; Referring Provider Nurse Practitioner Family; Visit Provider Nurse Practitioner Family
DX: E21.3 Hyperparathyroidism, unspecified (principal)
CPT/HCPCS: 36415; 80053; 82570; 84156

== ENCOUNTER → 2021-10-02 13:35 | Outpatient (CLI) | payer MEDICARE, SELFPAY | PROVIDERS: PCP Nurse Practitioner Family; Referring Provider Internal Medicine Endocrinology, Diabetes & Metabolism; Visit Provider Internal Medicine Endocrinology, Diabetes & Metabolism | DX: N18.9 Chronic kidney disease, unspecified (principal); E05.90 Thyrotoxicosis, unspecified without thyrotoxic crisis or storm; E83.52 Hypercalcemia ==

== ENCOUNTER 2021-10-02 13:44 | Outpatient (RCR) | payer MEDICARE, SELFPAY ==
[2021-09-08 20:22] VITALS: BMI 20.4
[2021-10-02 15:33] LABS: PTHIN 383.8 pg/mL (18.4-80.1)
[2021-10-02 15:41] LABS: Vitamin D,25 Hydroxy 30.9 ng/mL
[2021-10-02 15:44] LABS: ALB/GLOB Ratio 0.9 RATIO (0.9-2.4); AST(SGOT) 23 U/L (15-37); Alanine Aminotransfer ALT/SGPT 32 U/L (13-56); Albumin, Serum 3.7 g/dL (3.2-5.0); Alkaline Phosphatase 79 U/L (45-117); Anion Gap 7 (5-15); BUN 35 mg/dL (7-18); BUN/Creat Ratio 25.5 RATIO (10-20); Calcium,Total 9.4 mg/dL (8.5-10.1); Chloride 106 mmol/L (98-107); Creatinine, Serum 1.37 mg/dL (0.55-1.02); EST Glomerular Filtration Rate 40 mL/min (>60); Est Glom Filt Rate - Afr Amer 49 mL/min (>60); Free T3 2.6 pg/mL (2.18-3.98); Glucose 82 mg/dL (74-106); Magnesium 2.7 mg/dL (1.6-2.6); Phosphorus 2.8 mg/dL (2.5-4.9); Potassium 5.1 mmol/L (3.5-5.1); Protein, Total 7.7 g/dL (6.4-8.2); Sodium Level 139 mmol/L (136-145); T4 Free Direct 0.91 ng/dL (0.76-1.46); Thyroid Stim Hormone (TSH) 1.03 uIU/mL (0.358-3.74)
== END 2021-10-08 18:00 | disposition home or self-care (01) ==
LOC: LAB 13:44
PROVIDERS: Family Provider Nurse Practitioner Family; PCP Nurse Practitioner Family; Referring Provider Nurse Practitioner Family; Visit Provider Nurse Practitioner Family
DX: E21.3 Hyperparathyroidism, unspecified (principal); N18.32 Chronic kidney disease, stage 3b; E05.90 Thyrotoxicosis, unspecified without thyrotoxic crisis or storm; E23.2 Diabetes insipidus; Z86.711 Personal history of pulmonary embolism; E55.9 Vitamin D deficiency, unspecified
CPT/HCPCS: 36415; 80053; 82306; 82330; 83735; 83970; 84100; 84439; 84443; 84481

== ENCOUNTER 2021-11-12 13:06 | Outpatient (RCR) | payer MEDICARE, SELFPAY ==
[2021-10-09 03:41] VITALS: BMI 20.4
[2021-11-12 14:44] LABS: Amphetamine Urine VISTA NEGATIVE (<1000 ng/mL); Barbiturate Urine VISTA NEGATIVE (< 200 ng/mL); Benzodiazepine Urine VISTA NEGATIVE (< 200 ng/mL); Cocaine Urine VISTA NEGATIVE (< 300 ng/mL); Ecstacy Urine VISTA NEGATIVE (< 500 ng/mL); Methadone Urine VISTA NEGATIVE (< 300 ng/mL); PCP Urine VISTA NEGATIVE (< 25 ng/mL); THC Urine VISTA NEGATIVE (< 50 ng/mL); Vista UDS pH Range 6
[2021-11-12 15:01] LABS: AST(SGOT) 16 U/L (15-37); Alanine Aminotransfer ALT/SGPT 26 U/L (13-56); Albumin, Serum 3.7 g/dL (3.2-5.0); Alkaline Phosphatase 68 U/L (45-117); Anion Gap 8 (5-15); BUN 39 mg/dL (7-18); BUN/Creat Ratio 27.1 RATIO (10-20); Calcium,Total 9.4 mg/dL (8.5-10.1); Chloride 107 mmol/L (98-107); Creatinine, Serum 1.44 mg/dL (0.55-1.02); EST Glomerular Filtration Rate 38 mL/min (>60); Est Glom Filt Rate - Afr Amer 46 mL/min (>60); Globulin 3.6 g/dL (2.2-4.2); Glucose 78 mg/dL (74-106); Potassium 4.9 mmol/L (3.5-5.1); Protein, Total 7.3 g/dL (6.4-8.2); Sodium Level 141 mmol/L (136-145)
== END 2021-12-09 18:00 | disposition home or self-care (01) ==
LOC: LAB 13:06
PROVIDERS: Family Provider Nurse Practitioner Family; PCP Nurse Practitioner Family; Referring Provider Nurse Practitioner Family; Visit Provider Nurse Practitioner Family
DX: E21.3 Hyperparathyroidism, unspecified (principal); F11.20 Opioid dependence, uncomplicated
CPT/HCPCS: 36415; 80053; 80307

== ENCOUNTER 2022-01-07 13:36 | Outpatient (RCR) | payer MEDICARE, SELFPAY ==
[2021-12-10 02:07] VITALS: BMI 20.4
[2022-01-07 14:47] LABS: Hematocrit 39.4 % (37-47); Hemoglobin 12.5 g/dL (12.0-15.0); Mean Corp Hgb Conc 31.7 g/dL (32-36); Mean Corpuscular Hgb 31.1 pg (27.0-32.0); Mean Platelet Vol. 9.3 fl (6.2-12.0); Platelet Count 187 K/mm3 (150-450); RBC Distribution Width SD 46.8 fl (35.1-43.9); Red Blood Count 4.02 M/mm3 (4.2-5.4)
[2022-01-07 14:56] LABS: Creatinine, Urine (random) < 13.00 mg/dL (NO RANGE EST.); Protein, Urine (Random) 24.2 mg/dL (<11.9)
[2022-01-07 15:14] LABS: PTHIN 224.4 pg/mL (18.4-80.1)
[2022-01-07 15:17] LABS: Vitamin B12 622 pg/mL (211-911)
[2022-01-07 15:23] LABS: Albumin, Serum 3.5 g/dL (3.2-5.0); BUN 46 mg/dL (7-18); BUN/Creat Ratio 28.2 RATIO (10-20); Bilirubin, Direct 0.07 mg/dL (0.00-0.30); Calcium,Total 8.9 mg/dL (8.5-10.1); Chloride 114 mmol/L (98-107); Creatinine, Serum 1.63 mg/dL (0.55-1.02); EST Glomerular Filtration Rate 33 mL/min (>60); Est Glom Filt Rate - Afr Amer 40 mL/min (>60); Free T3 3.8 pg/mL (2.18-3.98); Glucose 92 mg/dL (74-106); Iron 99 ug/dL (50-170); Iron Binding Capacity,Total 468 ug/dL (250-450); PERCENT IRON SATURATION 21.2 % (15.0-55.0); Phosphorus 3.2 mg/dL (2.5-4.9); Potassium 4.7 mmol/L (3.5-5.1); Sodium Level 140 mmol/L (136-145); T4 Free Direct 0.82 ng/dL (0.76-1.46); Thyroid Stim Hormone (TSH) 0.95 uIU/mL (0.358-3.74)
[2022-01-17 22:14] LABS: Renin, Plasma 1.244 ng/mL/hr (0.167-5.380)
== END 2022-02-06 18:00 | disposition home or self-care (01) ==
LOC: LAB 13:36
PROVIDERS: Family Provider Nurse Practitioner Family; PCP Nurse Practitioner Family; Referring Provider Nurse Practitioner Family; Visit Provider Nurse Practitioner Family
DX: N18.32 Chronic kidney disease, stage 3b (principal); E23.2 Diabetes insipidus; E05.90 Thyrotoxicosis, unspecified without thyrotoxic crisis or storm; E21.3 Hyperparathyroidism, unspecified; E55.9 Vitamin D deficiency, unspecified; D64.9 Anemia, unspecified
CPT/HCPCS: 36415; 80069; 82248; 82306; 82570; 82607; 83540; 83550; 83970; 84156; 84244; 84439; 84443; 84481; 85027

== ENCOUNTER 2022-02-04 14:04 | Outpatient (CLI) | payer MEDICARE, SELFPAY ==
[2022-02-04 14:43] LABS: Hematocrit 39.3 % (37-47); Mean Corp Hgb Conc 33.1 g/dL (32-36); Mean Corpuscular Hgb 32.1 pg (27.0-32.0); Mean Platelet Vol. 8.8 fl (6.2-12.0); Platelet Count 255 K/mm3 (150-450); RBC Distribution Width SD 46.4 fl (35.1-43.9); Red Blood Count 4.05 M/mm3 (4.2-5.4); White Blood Count 6.7 K/mm3 (4.4-11.0)
[2022-02-04 14:55] LABS: Amphetamine Urine VISTA NEGATIVE (<1000 ng/mL); Barbiturate Urine VISTA NEGATIVE (< 200 ng/mL); Benzodiazepine Urine VISTA NEGATIVE (< 200 ng/mL); Cocaine Urine VISTA NEGATIVE (< 300 ng/mL); Ecstacy Urine VISTA NEGATIVE (< 500 ng/mL); Methadone Urine VISTA NEGATIVE (< 300 ng/mL); PCP Urine VISTA NEGATIVE (< 25 ng/mL); THC Urine VISTA NEGATIVE (< 50 ng/mL); Vista UDS pH Range 6
[2022-02-04 15:43] LABS: AST(SGOT) 16 U/L (15-37); Alanine Aminotransfer ALT/SGPT 26 U/L (13-56); Albumin, Serum 3.5 g/dL (3.2-5.0); Alkaline Phosphatase 65 U/L (45-117); Anion Gap 3 (5-15); BUN 41 mg/dL (7-18); BUN/Creat Ratio 24.4 RATIO (10-20); Chloride 115 mmol/L (98-107); Creatinine, Serum 1.68 mg/dL (0.55-1.02); EST Glomerular Filtration Rate 32 mL/min (>60); Est Glom Filt Rate - Afr Amer 38 mL/min (>60); Free T3 3.1 pg/mL (2.18-3.98); Globulin 3.4 g/dL (2.2-4.2); Glucose 106 mg/dL (74-106); Phosphorus 3.4 mg/dL (2.5-4.9); Potassium 4.7 mmol/L (3.5-5.1); Protein, Total 6.9 g/dL (6.4-8.2); Sodium Level 141 mmol/L (136-145); T4 Free Direct 0.73 ng/dL (0.76-1.46); Thyroid Stim Hormone (TSH) 0.79 uIU/mL (0.358-3.74)
[2022-02-05 08:35] LABS: PTHIN 329.5 pg/mL (18.4-80.1)
== END 2022-02-04 23:59 | disposition home or self-care (01) ==
PROVIDERS: PCP Nurse Practitioner Family; Referring Provider Internal Medicine Endocrinology, Diabetes & Metabolism; Visit Provider Anesthesiology Pain Medicine
DX: F11.20 Opioid dependence, uncomplicated (principal); F31.9 Bipolar disorder, unspecified; E21.3 Hyperparathyroidism, unspecified; N18.30 Chronic kidney disease, stage 3 unspecified; E05.90 Thyrotoxicosis, unspecified without thyrotoxic crisis or storm; M81.0 Age-related osteoporosis without current pathological fracture
CPT/HCPCS: 36415; 80053; 80307; 82330; 83970; 84100; 84439; 84443; 84481; 85027

== ENCOUNTER 2022-04-01 13:42 | Outpatient (RCR) | payer MEDICARE, SELFPAY ==
[2022-02-07 03:43] VITALS: BMI 20.4
[2022-04-01 14:52] LABS: AST(SGOT) 14 U/L (15-37); Alanine Aminotransfer ALT/SGPT 25 U/L (13-56); Albumin, Serum 3.6 g/dL (3.2-5.0); Alkaline Phosphatase 65 U/L (45-117); Anion Gap 7 (5-15); BUN 42 mg/dL (7-18); BUN/Creat Ratio 24.6 RATIO (10-20); Calcium,Total 8.9 mg/dL (8.5-10.1); Chloride 110 mmol/L (98-107); Creatinine, Serum 1.71 mg/dL (0.55-1.02); EST Glomerular Filtration Rate 31 mL/min (>60); Est Glom Filt Rate - Afr Amer 38 mL/min (>60); Globulin 3.5 g/dL (2.2-4.2); Glucose 91 mg/dL (74-106); Potassium 4.5 mmol/L (3.5-5.1); Protein, Total 7.1 g/dL (6.4-8.2); Sodium Level 139 mmol/L (136-145)
== END 2022-04-01 18:00 | disposition home or self-care (01) ==
LOC: LAB 13:42
PROVIDERS: Family Provider Nurse Practitioner Family; PCP Nurse Practitioner Family; Referring Provider Nurse Practitioner Family; Visit Provider Nurse Practitioner Family
DX: N18.30 Chronic kidney disease, stage 3 unspecified
CPT/HCPCS: 36415; 80053

== ENCOUNTER 2022-04-28 16:14 | Emergency (ER) | payer MEDICARE, SELFPAY ==
[2022-04-28 16:14] VITALS: BP 129/86; PULSE 77; RESP 14; TEMP 36.7; O2SAT 97; BMI 24.1
--- NOTE | 2022-04-28 16:22 | VDLE_ITS ---
Reason For Study: Swelling RIGHT GSV is normal. CFV is compressible, spontaneous, phasic, competent and demonstrates normal augmentation. FV is compressible, spontaneous, phasic, competent and demonstrates normal augmentation. POP V is compressible, spontaneous, phasic, competent and demonstrates normal augmentation. T/P Trunk is compressible. PTV is compressible. RT PerV is compressible. Procedure This is a venous duplex using B-mode, color flow and spectral Doppler. Exam performed portable in ED. A preliminary report was called and/or faxed to Dr. Yeboah. VL/Venous Duplex US, Unilateral Interpretation Summary There is no evidence of right lower extremity deep vein thrombosis. Right great saphenous vein appears patent and compressible segmentally. Ordering Physician: Jung Yeboah Referring Physician: Jay Kincaid Performed By: Vera Ragland, AIMEE, RVT
--- NOTE | 2022-04-28 16:30 | EDS_ITS ---
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 She states she made her first visit with Emily Mcmahon today and she noted the swelling. She sent her to the emergency room for a duplex. Patient does not have any chest pain or shortness of breath. She denies any trauma to the right foot. She states it is present for about 2 weeks. She notes no significant pain or paresthesia. Her states that her left foot was swollen previously but has resolved. [facility] Medical History CITLALY (acute kidney injury) Anemia Anxiety Bipolar disorder with moderate depression Confusion state Delirium due to multiple etiologies Diabetes insipidus, nephrogenic Difficulty chewing Falls History of herpes zoster History of tobacco use Hypercalcemia Hypernatremia Hypertension Hyponatremia Carolyn Psychogenic polydipsia Pulmonary emboli Renal disease Schizophrenia Secondary hyperparathyroidism of renal origin Smoking Syncope Tardive dyskinesia Home Medications biotin 5,000 mcg disintegrating tablet 5,000 mcg PO DAILY 10/04/20 [History Last Taken Unknown] cinacalcet 30 mg tablet 30 mg PO DAILY 10/04/20 [History Last Taken Unknown] methimazole 5 mg tablet 2.5 mg PO DAILY 10/04/20 [History Last Taken Unknown] aripiprazole 15 mg tablet 7.5 mg PO DAILY 01/03/21 [History Last Taken Unknown] lorazepam 1 mg tablet 1 mg PO BID 01/03/21 [History Last Taken Unknown] memantine 10 mg tablet 15 mg PO DAILY 01/03/21 [History Last Taken Unknown] apixaban 5 mg tablet 5 mg PO BID 01/15/21 [History Last Taken Unknown] cholecalciferol (vitamin D3) 50 mcg (2,000 unit) capsule 2,000 unit PO DAILY 01/15/21 [History Last Taken Unknown] ferrous sulfate 325 mg (65 mg iron) tablet 325 mg PO DAILY 01/15/21 [History Last Taken Unknown] tramadol 50 mg tablet 50 mg PO BID PRN 01/21/22 [History Last Taken Unknown] Allergy/AdvReac Type Severity Reaction Status Date / Time No Known Allergies Allergy Verified 04/28/22 16:18 Social History Smoking Status: Light Smoker (<10/day) ROS ROS ED Constitutional Constitutional ED: Denies chills, fever(s) or sweats Eyes Eyes: Denies blurry vision or change in vision ENT ENT ED: Denies ear pain or sore throat Cardiovascular Cardiovascular: Denies chest pain, palpitations or racing heartbeat Respiratory/Chest Respiratory/Chest: Denies cough, dyspnea or sputum Gastrointestinal Gastrointestinal: Denies abdominal pain, constipation, diarrhea, nausea or vomiting Genitourinary Genitourinary ED: Denies dysuria, hematuria or urinary frequency Musculoskeletal Musculoskeletal: Denies arthralgias, myalgias or neck pain Integumentary Reports other Details: Swelling over dorsum of right foot ; Denies abscess Neurologic Neurologic: Denies headache(s), paresthesias or weakness Psychiatric Psychiatric: Denies anxiety, depression, suicidal ideation or suicidal thoughts Endocrine Endocrinology: Denies polydipsia or polyuria EXAM Physical Exam Const Vital Signs: 04/28/22 16:14 Temperature 98.1 F Temperature Source Temporal Pulse Rate 77 Respiratory Rate 14 Blood Pressure 129/86 H Blood Pressure Mean 100 Pulse Ox 97 Oxygen Delivery Method Room Air Positive well nourished General Appearance ED: NAD HEENT Reports moist mucous membranes normocephalic and atraumatic Chest Wall inspection of chest normal Resp normal respiratory effort and no retractions Cardio regular rate and regular rhythm Neuro oriented x3, CN's II-XII intact bilaterally, moves all extremities and no sensory deficits noted Sensorium / Orientation: alert, oriented to person, oriented to place and oriented to time Psych mental status grossly normal Skin Skin Narrative: Mild soft tissue swelling over the dorsum of the right foot. Right foot nontender as well. Neurovascular intact with brisk cap refill to all 5 toes.Right calf nontender. No cords palpated. Right calf compartments are soft. MDM MDM MDM Narrative Medical decision making narrative: Presenting with right foot swelling. There are no findings consistent with DVT other than some mild swelling of the dorsum of the foot. She has no pain. She is not having chest pain or shortness of breath. I obtained a duplex of the right lower extremity which was negative for DVT. Patient counseled to use compression, ice, elevation. She can follow-up with her primary care doctor for resolution. Impression: 1 right foot edema Lab Data Attestation: I reviewed the patient's lab results. Discharge Plan Triage Chief Complaint: Lower Extremity Injury ED Provider: Jung Yeboah Dx/Rx/DC Orders Prescriptions: No Action tramadol 50 mg tablet 50 mg PO BID PRN methimazole 5 MG tablet 2.5 mg PO DAILY cinacalcet 30 MG tablet 30 mg PO DAILY biotin 5,000 MCG tablet,disintegrating 5,000 mcg PO DAILY aripiprazole 15 MG tablet 7.5 mg PO DAILY lorazepam 1 MG tablet 1 mg PO BID memantine 10 MG tablet 15 mg PO DAILY apixaban 5 MG tablet 5 mg PO BID ferrous sulfate 325 MG tablet 325 mg PO DAILY cholecalciferol (vitamin D3) 2,000 UNIT capsule 2,000 unit PO DAILY Primary Care Provider: Jay Kincaid NP Referrals: Jay Kincaid NP, FEATHER RENOVATOR-C [Primary Care Provider] -
== END 2022-04-28 17:00 | disposition home or self-care (01) ==
PROVIDERS: Emergency Provider Student in an Organized Health Care Education/Training Program; PCP Nurse Practitioner Family; Visit Provider Student in an Organized Health Care Education/Training Program
DX: R60.0 Localized edema (principal); F20.9 Schizophrenia, unspecified; F31.9 Bipolar disorder, unspecified; I10 Essential (primary) hypertension; D64.9 Anemia, unspecified; F17.200 Nicotine dependence, unspecified, uncomplicated; Z79.01 Long term (current) use of anticoagulants; Z79.899 Other long term (current) drug therapy
CPT/HCPCS: 93971; 99281; 99282

== ENCOUNTER 2022-06-17 13:33 | Outpatient (RCR) | payer MEDICARE, SELFPAY ==
[2022-04-08 21:12] VITALS: BMI 20.4
[2022-06-17 14:25] LABS: International Normalized Ratio 0.9; Prothrombin Time (Protime)PT. 12.2 SECONDS (11.7-14.9)
[2022-06-17 14:46] LABS: PTHIN 291.1 pg/mL (18.4-80.1)
[2022-06-17 14:55] LABS: ALB/GLOB Ratio 1.1 RATIO (0.9-2.4); AST(SGOT) 17 U/L (15-37); Alanine Aminotransfer ALT/SGPT 23 U/L (13-56); Albumin, Serum 3.6 g/dL (3.2-5.0); Alkaline Phosphatase 70 U/L (45-117); Anion Gap 4 (5-15); BUN 40 mg/dL (7-18); BUN/Creat Ratio 23.7 RATIO (10-20); Chloride 108 mmol/L (98-107); Creatinine, Serum 1.69 mg/dL (0.55-1.02); EST Glomerular Filtration Rate 32 mL/min (>60); Est Glom Filt Rate - Afr Amer 38 mL/min (>60); Free T3 2.4 pg/mL (2.18-3.98); Globulin 3.4 g/dL (2.2-4.2); Glucose 85 mg/dL (74-106); Phosphorus 3.1 mg/dL (2.5-4.9); Potassium 4.6 mmol/L (3.5-5.1); Sodium Level 139 mmol/L (136-145); T4 Free Direct 0.94 ng/dL (0.76-1.46); Thyroid Stim Hormone (TSH) 0.55 uIU/mL (0.358-3.74)
== END 2022-06-17 18:00 | disposition home or self-care (01) ==
LOC: LAB 13:33
PROVIDERS: Family Provider Nurse Practitioner Family; PCP Nurse Practitioner Family; Referring Provider Nurse Practitioner Family; Visit Provider Nurse Practitioner Family
DX: N18.30 Chronic kidney disease, stage 3 unspecified (principal); M81.0 Age-related osteoporosis without current pathological fracture; F31.9 Bipolar disorder, unspecified; Z79.01 Long term (current) use of anticoagulants
CPT/HCPCS: 36415; 80053; 82306; 82330; 83970; 84100; 84439; 84443; 84481; 85610

== ENCOUNTER → 2022-06-17 | Outpatient (CLI) | payer MEDICARE, SELFPAY | END | disposition home or self-care (01) | LOC: LAB 13:30 | PROVIDERS: PCP Nurse Practitioner Family; Visit Provider Internal Medicine Endocrinology, Diabetes & Metabolism | DX: N18.30 Chronic kidney disease, stage 3 unspecified (principal); F31.9 Bipolar disorder, unspecified; E21.3 Hyperparathyroidism, unspecified; E05.90 Thyrotoxicosis, unspecified without thyrotoxic crisis or storm; M81.0 Age-related osteoporosis without current pathological fracture ==

== ENCOUNTER → 2022-07-09 | Outpatient (CLI) | payer MEDICARE, SELFPAY ==
[2022-07-09 15:16] LABS: Hematocrit 39.9 % (37-47); Mean Corp Hgb Conc 32.6 g/dL (32-36); Mean Corpuscular Hgb 30.8 pg (27.0-32.0); Mean Corpuscular Volume 94.5 fL (81-99); Mean Platelet Vol. 8.6 fl (6.2-12.0); Platelet Count 255 K/mm3 (150-450); RBC Distribution Width CV 13.6 % (11.6-14.6); Red Blood Count 4.22 M/mm3 (4.2-5.4); White Blood Count 6.7 K/mm3 (4.4-11.0)
[2022-07-09 15:28] LABS: Protein, Urine (Random) 54.4 mg/dL (<11.9); Protein:Creat Ratio 1545 mg/g CRE (0-200)
[2022-07-09 15:54] LABS: Albumin, Serum 3.8 g/dL (3.2-5.0); BUN 41 mg/dL (7-18); BUN/Creat Ratio 23.6 RATIO (10-20); Calcium,Total 9.4 mg/dL (8.5-10.1); Chloride 111 mmol/L (98-107); Creatinine, Serum 1.74 mg/dL (0.55-1.02); EST Glomerular Filtration Rate 31 mL/min (>60); Est Glom Filt Rate - Afr Amer 37 mL/min (>60); Glucose 114 mg/dL (74-106); Phosphorus 3.2 mg/dL (2.5-4.9); Potassium 4.6 mmol/L (3.5-5.1); Sodium Level 140 mmol/L (136-145)
[2022-07-09 16:01] LABS: Vitamin D,25 Hydroxy 36.2 ng/mL
[2022-07-10 09:01] LABS: PTHIN 383.8 pg/mL (18.4-80.1)
== END | disposition home or self-care (01) ==
LOC: LAB 14:21
PROVIDERS: PCP Nurse Practitioner Family; Referring Provider Internal Medicine Nephrology; Visit Provider Internal Medicine Nephrology
DX: N18.32 Chronic kidney disease, stage 3b (principal); E21.3 Hyperparathyroidism, unspecified
CPT/HCPCS: 36415; 80069; 82306; 82570; 83970; 84156; 85027

== ENCOUNTER 2022-08-19 11:19 | Outpatient (RCR) | payer MEDICARE, SELFPAY ==
[2022-07-10 00:14] VITALS: BMI 20.4
[2022-08-19 12:42] LABS: AST(SGOT) 12 U/L (15-37); Alanine Aminotransfer ALT/SGPT 21 U/L (13-56); Albumin, Serum 3.4 g/dL (3.2-5.0); Alkaline Phosphatase 65 U/L (45-117); Anion Gap 11 (5-15); BUN 35 mg/dL (7-18); BUN/Creat Ratio 16.8 RATIO (10-20); Calcium,Total 9.5 mg/dL (8.5-10.1); Chloride 102 mmol/L (98-107); Creatinine, Serum 2.08 mg/dL (0.55-1.02); EST Glomerular Filtration Rate 25 mL/min (>60); Est Glom Filt Rate - Afr Amer 30 mL/min (>60); Globulin 3.3 g/dL (2.2-4.2); Glucose 154 mg/dL (74-106); Potassium 4.1 mmol/L (3.5-5.1); Protein, Total 6.7 g/dL (6.4-8.2); Sodium Level 138 mmol/L (136-145)
== END 2022-08-19 18:00 | disposition home or self-care (01) ==
LOC: LAB 11:19
PROVIDERS: Family Provider Nurse Practitioner Family; PCP Nurse Practitioner Family; Referring Provider Nurse Practitioner Family; Visit Provider Nurse Practitioner Family
DX: N18.30 Chronic kidney disease, stage 3 unspecified (principal)
CPT/HCPCS: 36415; 80053

== ENCOUNTER 2022-08-21 13:17 | Emergency (ER) | payer MEDICARE, SELFPAY ==
[2022-08-21 13:18] VITALS: BP 77/62; PULSE 98; RESP 19; TEMP 37.2; O2SAT 91; BMI 24.1
[2022-08-21 13:27] VITALS: BP 82/63
--- NOTE | 2022-08-21 13:35 | EKG12_ITS ---
Test Reason : WEAKNESS Blood Pressure : / mmHG Vent. Rate : 094 BPM Atrial Rate : 094 BPM P-R Int : 160 ms QRS Dur : 088 ms QT Int : 338 ms P-R-T Axes : 051 028 057 degrees QTc Int : 422 ms Normal sinus rhythm Normal ECG Confirmed by TIESHA ORELLANA, MARIO ([id number]), senior editor BRIANA CHUNG ([id number]) on 08/25/2022 10:07:57 AM Referred By: SHERMAN Confirmed By:RALPH MOTLEY MD
[2022-08-21] MEDS: 0.9% Normal Saline 1,000 ML 999 ML IV (13:50)
[2022-08-21 13:53] LABS: Absolute Lymphocyte Count 0.82 X10^3/uL (0.83-4.51); Basophil# 0.01 X10^3/uL; Basophil% 0.1 % (0-1); Eosinophil# 0.01 X10^3/uL; Eosinophils% 0.1 % (0-5); Hematocrit 33.4 % (37-47); Hemoglobin 10.7 g/dL (12.0-15.0); Lymphocyte # 0.82 X10^3/ul (0.83-4.51); Mean Corpuscular Volume 93.6 fL (81-99); Mean Platelet Vol. 8.8 fl (6.2-12.0); Monocyte# 1.29 X10^3/uL; Monocyte% 12.6 % (0-10); NRBC Flagged by Analyzer 0 % (0-5); Neutrophil # 8.01 X10^3/uL (2.7-7.7); Neutrophil % 78.6 % (47-70); Platelet Count 277 K/mm3 (150-450); RBC Distribution Width SD 44.5 fl (35.1-43.9); Red Blood Count 3.57 M/mm3 (4.2-5.4); White Blood Count 10.2 K/mm3 (4.4-11.0)
--- NOTE | 2022-08-21 14:07 | EDS_ITS ---
HPI History of Present Illness Chief Complaint: Weakness Narrative Narrative: 72-year-old female presenting with weakness for about 3 weeks. Initially she started with some nausea and vomiting for few days and then recovered and was doing okay and she was eating and drinking normally. She again was sick for another 3 days and recovered again and for 3 to 4 days was normal. Patient had been doing well up until yesterday when she started to feel sick again. She and her went to go feed her kids animals and she was too weak to go upstairs. She was slowly lowered to the ground. was able to get her up. He states that she just had lab work done the other day because she gets monthly lab work and it was normal. She gets this because she has CKD and a history of diabetes insipidus. She is on a specific regimen where she drinks 500 cc of water per day and he states he is drinking this. He does state that she told him her stomach was queasy. The patient herself states she feels fine right now. She does not have any pain. She states she has had sporadic bouts of constipation and diarrhea. She does not have any urinary complaints. [facility] Medical History CITLALY (acute kidney injury) Anemia Anxiety Bipolar disorder with moderate depression Confusion state Delirium due to multiple etiologies Diabetes insipidus, nephrogenic Difficulty chewing Falls History of herpes zoster History of tobacco use Hypercalcemia Hypernatremia Hypertension Hyponatremia Carolyn Psychogenic polydipsia Pulmonary emboli Renal disease Schizophrenia Secondary hyperparathyroidism of renal origin Smoking Syncope Tardive dyskinesia Home Medications biotin 5,000 mcg disintegrating tablet 5,000 mcg PO DAILY 10/04/20 [History Last Taken Unknown] cinacalcet 30 mg tablet 30 mg PO DAILY 10/04/20 [History Last Taken Unknown] methimazole 5 mg tablet 2.5 mg PO DAILY 10/04/20 [History Last Taken Unknown] aripiprazole 15 mg tablet 7.5 mg PO DAILY 01/03/21 [History Last Taken Unknown] lorazepam 1 mg tablet 1 mg PO BID 01/03/21 [History Last Taken Unknown] memantine 10 mg tablet 15 mg PO DAILY 01/03/21 [History Last Taken Unknown] apixaban 5 mg tablet 5 mg PO BID 01/15/21 [History Last Taken Unknown] cholecalciferol (vitamin D3) 50 mcg (2,000 unit) capsule 2,000 unit PO DAILY 01/15/21 [History Last Taken Unknown] ferrous sulfate 325 mg (65 mg iron) tablet 325 mg PO DAILY 01/15/21 [History Last Taken Unknown] tramadol 50 mg tablet 50 mg PO BID PRN 01/21/22 [History Last Taken Unknown] Allergy/AdvReac Type Severity Reaction Status Date / Time No Known Allergies Allergy Verified 08/21/22 13:25 Social History Smoking Status: Former smoker ROS ROS ED ROS Narrative Generalized weakness Constitutional Constitutional ED: Denies chills or fever(s) Eyes Eyes: Denies change in vision or diplopia ENT ENT ED: Denies rhinorrhea or sore throat Cardiovascular Cardiovascular: Denies chest pain or palpitations Respiratory/Chest Respiratory/Chest: Denies cough or dyspnea Gastrointestinal Gastrointestinal: Reports constipation, diarrhea, nausea and vomiting; Denies abdominal pain Genitourinary Genitourinary ED: Denies dysuria or hematuria Musculoskeletal Musculoskeletal: Denies arthralgias or back pain Integumentary Denies abscess or Abrasions Neurologic Neurologic: Denies headache(s) or paresthesias Psychiatric Psychiatric: Denies anxiety or depression EXAM Physical Exam Const Vital Signs: 08/21/22 13:18 08/21/22 13:26 08/21/22 13:27 Temperature 98.9 F Temperature Source Oral Pulse Rate 98 Respiratory Rate 19 H Respiratory Effort Normal Non-Labored Respiratory Pattern Normal Blood Pressure 77/62 L 82/63 L Blood Pressure Mean 67 69 Pulse Ox 91 Oxygen Delivery Method Room Air 08/21/22 14:33 08/21/22 15:23 08/21/22 17:37 Temperature Temperature Source Pulse Rate 76 72 89 Respiratory Rate 15 13 16 Respiratory Effort Respiratory Pattern Blood Pressure 126/77 H 91/60 102/65 Blood Pressure Mean 93 70 77 Pulse Ox 96 94 96 Oxygen Delivery Method Room Air Room Air Room Air Positive well nourished General Appearance ED: NAD; Negative for pallor HEENT Reports moist mucous membranes and dry mucous membranes Mouth ED: Yes dry mucous membranes Mouth: dry mucous membranes Eyes EOMs intact bilaterally General Eye ED: Negative for pale conjunctiva or scleral icterus Resp normal respiratory effort and clear to auscultation bilaterally Cardio regular rate and regular rhythm GI normal to inspection, nondistended, normoactive bowel sounds Neuro oriented x3 and CN's II-XII intact bilaterally Sensorium / Orientation: alert Psych mental status grossly normal Skin no rashes or lesions noted and no wounds General Skin Exam: Negative for jaundice or pallor MDM MDM MDM Narrative Medical decision making narrative: Patient presenting with generalized weakness and almost fell was unable to get around at home. She is on a specific treatment with 50 cc of water a day but I suspect she is not drinking as much because she had episodes of nausea and vomiting for days. She does not report any pain anywhere. She is not currently nauseous. She is not had a fever. I obtained blood work and her CBC shows no leukocytosis. Her hemoglobin is 10.7. She does not say that she has had any black or bloody stools and has not had hematemesis or coffee-ground emesis. Her Hemoccult is negative here. Her blood pressure was a little bit low on arrival at 77/62 and she was given a liter of IV fluids and has rebounded to 102/65 which is near her baseline reported by her . Her creatinine is elevated at 2.55 above her baseline which was checked on 08/19/2022 and was 2.08. Her sodium was normal which is usually her concern. LFTs are normal. They did not do a CBC on her recent blood draw so I do not have a recent comparison. Since she does not have any occult blood in her stool I have a low suspicion for GI bleed. Patient was ambulated and did well and she was steady. At this point I feel the patient is stable for discharge. She will need to follow-up with her human resources records clerk and this was discussed with the . He acknowledged understanding. Impression: 1 dehydration 2. Anemia 3. Generalized weakness Lab Data Attestation: I reviewed the patient's lab results. Labs: Laboratory Results - last 24 hr 08/21/22 08/21/22 08/21/22 13:40 13:40 13:40 WBC 10.2 RBC 3.57 L Hgb 10.7 L Hct 33.4 L MCV 93.6 MCH 30.0 MCHC 32.0 RDW Std Deviation 44.5 H RDW Coeff of Lee 13.0 Plt Count 277 MPV 8.8 Immature Gran % (Auto) 0.600 Neut % (Auto) 78.6 H Lymph % (Auto) 8.0 L [place] % (Auto) 12.6 H Eos % (Auto) 0.1 Baso % (Auto) 0.1 Absolute Neuts (auto) 8.0 H Absolute Lymphs (auto) 0.82 L Nucleated RBC % 0 Sodium 135 L Potassium 3.5 Chloride 100 Carbon Dioxide 19.0 L Anion Gap 16 H BUN 47 H Creatinine 2.55 H Estim Creat Clear Calc 17.68 Est GFR (MDRD) Af Amer 24 L Est GFR (MDRD) Non-Af 20 L BUN/Creatinine Ratio 18.4 Glucose 104 Calcium 8.7 Total Bilirubin 0.50 AST 21 ALT 38 Alkaline Phosphatase 57 Troponin I High Sens Total Protein 5.8 L Albumin 2.9 L Globulin 2.9 Albumin/Globulin Ratio 1.0 Urine Color Urine Clarity Urine pH Ur Specific [place] Urine Protein Urine Glucose (UA) Urine Ketones Urine Occult Blood Urine Nitrite Urine Bilirubin Urine Urobilinogen Ur Leukocyte Esterase Urine RBC Urine WBC Ur Squamous Epith Cells Urine Bacteria Urine Mucus [place] < 0.20 L Blood Type Antibody Screen 08/21/22 08/21/22 08/21/22 13:40 14:29 14:37 WBC RBC Hgb Hct MCV MCH MCHC RDW Std Deviation RDW Coeff of [place] Plt Count MPV Immature Gran % (Auto) Neut % (Auto) Lymph % (Auto) [place] % (Auto) Eos % (Auto) Baso % (Auto) Absolute Neuts (auto) Absolute Lymphs (auto) Nucleated RBC % Sodium Potassium Chloride Carbon Dioxide Anion Gap BUN Creatinine Estim Creat Clear Calc Est GFR (MDRD) Af Amer Est GFR (MDRD) Non-Af BUN/Creatinine Ratio Glucose Calcium Total Bilirubin AST ALT Alkaline Phosphatase Troponin I High Sens 20 Total Protein Albumin Globulin Albumin/Globulin Ratio Urine Color Yellow Urine Clarity Sl. Cloudy Urine pH 6.5 Ur Specific [place] 1.005 Urine Protein 15 H Urine Glucose (UA) Normal Urine Ketones Negative Urine Occult Blood 10 H Urine Nitrite Negative Urine Bilirubin Negative Urine Urobilinogen Normal Ur Leukocyte Esterase Negative Urine RBC 0-5 SEEN Urine WBC 0 SEEN Ur Squamous Epith Cells 0 SEEN Urine Bacteria 0 SEEN Urine Mucus 0 SEEN [place] Blood Type B POSITIVE Antibody Screen NEGATIVE Discharge Plan Triage Chief Complaint: Weakness ED Provider: Jung Yeboah Dx/Rx/DC Orders Instructions: ED Anemia, Type Not Specified (Adult), ED Weakness (Uncertain Cause) Prescriptions: No Action tramadol 50 mg tablet 50 mg PO BID PRN methimazole 5 MG tablet 2.5 mg PO DAILY cinacalcet 30 MG tablet 30 mg PO DAILY biotin 5,000 MCG tablet,disintegrating 5,000 mcg PO DAILY aripiprazole 15 MG tablet 7.5 mg PO DAILY lorazepam 1 MG tablet 1 mg PO BID memantine 10 MG tablet 15 mg PO DAILY apixaban 5 MG tablet 5 mg PO BID ferrous sulfate 325 MG tablet 325 mg PO DAILY cholecalciferol (vitamin D3) 2,000 UNIT capsule 2,000 unit PO DAILY Primary Care Provider: Jay Kincaid NP Referrals: Jay Kincaid NP, ORTHOPEDIC PHYSICIAN-C [Primary Care Provider] - Disposition Disposition: Home, Self Care
[2022-08-21 14:09] LABS: AST(SGOT) 21 U/L (15-37); Alanine Aminotransfer ALT/SGPT 38 U/L (13-56); Albumin, Serum 2.9 g/dL (3.2-5.0); Alkaline Phosphatase 57 U/L (45-117); Anion Gap 16 (5-15); BUN 47 mg/dL (7-18); BUN/Creat Ratio 18.4 RATIO (10-20); Calcium,Total 8.7 mg/dL (8.5-10.1); Chloride 100 mmol/L (98-107); Creatinine, Serum 2.55 mg/dL (0.55-1.02); EST Glomerular Filtration Rate 20 mL/min (>60); Est Glom Filt Rate - Afr Amer 24 mL/min (>60); Estimated Creatinine Clearance 17.68 ml/min; Globulin 2.9 g/dL (2.2-4.2); Glucose 104 mg/dL (74-106); Potassium 3.5 mmol/L (3.5-5.1); Protein, Total 5.8 g/dL (6.4-8.2); Sodium Level 135 mmol/L (136-145)
[2022-08-21 14:22] LABS: Lithium < 0.20 mmol/L (0.60-1.20)
[2022-08-21 14:33] VITALS: BP 126/77; PULSE 76; RESP 15; O2SAT 96
[2022-08-21 14:35] LABS: Troponin-I HS 20 pg/mL (3.0-54.0)
[2022-08-21 14:37] LABS: Bacteria 0 SEEN /hpf (None Seen); Mucous, Urine 0 SEEN /hpf (<or=2+); Squamous Epithelial Cells - UA 0 SEEN /hpf (5-10); White Blood Cells 0 SEEN /hpf (0-5)
[2022-08-21 14:43] LABS: Color, Urine Yellow (Yellow); Glucose, Dipstick Normal (Normal); Ketone-Dipstick Negative (Negative); Leukocyte Esterase-Dipstick Negative /ul (Negative); Nitrite-Dipstick Negative (Negative); Occult Blood-Urine 10 /ul (Negative); Protein-Dipstick 15 mg/dl (Negative); Specific Gravity, Urine 1.005 (1.002-1.030); Urine Bilirubin Dipstick Negative (Negative); Urine Clarity Sl. Cloudy (Clear); Urine Urobilinogen Normal (Normal); Urine pH 6.5 (5.0 - 8.0)
[2022-08-21 14:49] LABS: Red Blood Cells-Urine 0-5 SEEN /hpf (0-5)
[2022-08-21 15:23] VITALS: BP 91/60; PULSE 72; RESP 13; O2SAT 94
[2022-08-21 17:37] VITALS: BP 102/65; PULSE 89; RESP 16; O2SAT 96
== END 2022-08-21 19:11 | disposition home or self-care (01) ==
PROVIDERS: Emergency Provider Student in an Organized Health Care Education/Training Program; PCP Nurse Practitioner Family; Visit Provider Student in an Organized Health Care Education/Training Program
DX: R53.1 Weakness (principal); F20.9 Schizophrenia, unspecified; F31.9 Bipolar disorder, unspecified; E86.0 Dehydration; I95.9 Hypotension, unspecified; D64.9 Anemia, unspecified; I12.9 Hypertensive chronic kidney disease with stage 1 through stage 4 chronic kidney disease, or unspecified chronic kidney disease; R11.2 Nausea with vomiting, unspecified; N18.9 Chronic kidney disease, unspecified; F41.9 Anxiety disorder, unspecified; Z79.01 Long term (current) use of anticoagulants; Z79.899 Other long term (current) drug therapy; Z87.891 Personal history of nicotine dependence
CPT/HCPCS: 80053; 80178; 81001; 82274; 84484; 85025; 86850; 86900; 86901; 93005; 96360; 99285; J7030; A4216

== ENCOUNTER → 2022-08-27 | Outpatient (CLI) | payer MEDICARE, SELFPAY ==
[2022-08-27 14:37] LABS: Hematocrit 34.4 % (37-47); Hemoglobin 11.3 g/dL (12.0-15.0); Mean Corp Hgb Conc 32.8 g/dL (32-36); Mean Corpuscular Hgb 31.2 pg (27.0-32.0); Mean Platelet Vol. 8.7 fl (6.2-12.0); Platelet Count 426 K/mm3 (150-450); RBC Distribution Width CV 13.6 % (11.6-14.6); RBC Distribution Width SD 46.5 fl (35.1-43.9); RET-HE 33.6 pg (30-35); Red Blood Count 3.62 M/mm3 (4.2-5.4); Reticulocyte Count 2.32 % (0.5-1.5); White Blood Count 8.5 K/mm3 (4.4-11.0)
[2022-08-27 16:00] LABS: ALB/GLOB Ratio 0.9 RATIO (0.9-2.4); AST(SGOT) 24 U/L (15-37); Alanine Aminotransfer ALT/SGPT 31 U/L (13-56); Albumin, Serum 2.6 g/dL (3.2-5.0); Alkaline Phosphatase 56 U/L (45-117); Anion Gap 7 (5-15); BUN 45 mg/dL (7-18); Calcium,Total 9.2 mg/dL (8.5-10.1); Chloride 109 mmol/L (98-107); Creatinine, Serum 2.05 mg/dL (0.55-1.02); EST Glomerular Filtration Rate 25 mL/min (>60); Est Glom Filt Rate - Afr Amer 31 mL/min (>60); Ferritin 220 ng/mL (8-252); Globulin 2.8 g/dL (2.2-4.2); Glucose 102 mg/dL (74-106); Iron 49 ug/dL (50-170); Iron Binding Capacity,Total 190 ug/dL (250-450); Potassium 3.5 mmol/L (3.5-5.1); Protein, Total 5.4 g/dL (6.4-8.2); Sodium Level 140 mmol/L (136-145)
== END | disposition home or self-care (01) ==
PROVIDERS: PCP Nurse Practitioner Family; Visit Provider Nurse Practitioner Family
DX: E86.0 Dehydration (principal); E23.2 Diabetes insipidus; N18.30 Chronic kidney disease, stage 3 unspecified; D64.9 Anemia, unspecified
CPT/HCPCS: 36415; 80053; 82728; 83540; 83550; 85027; 85045

== ENCOUNTER 2022-09-05 14:26 | Inpatient (IN) | payer MEDICARE, SELFPAY ==
[2022-09-05] VITALS (10 sets, daily range): BP systolic 84–99; BP diastolic 43–69; PULSE 75–96; RESP 12–20; TEMP 36.4–36.7; O2SAT 93–97; BMI 24.1; BMI 24.6
--- NOTE | 2022-09-05 15:12 | VDUE_ITS ---
Reason For Study: Swelling Left Proximal Left jugular vein is spontaneous, widely patent, phasic, with no intraluminal echogenicity noted. Left subclavian vein is spontaneous, widely patent, phasic, with no intraluminal echogenicity noted. Left Arm Left axillary vein is spontaneous, patent, phasic, competent, compressible and demonstrates augmentation. Left brachial vein is compressible. Left cephalic vein is compressible. Left basilic vein is compressible. Left Lower Arm Left radial vein is compressible. Left ulnar vein is compressible. Patient Safety Preliminary report to Roxana BLACKBURN. VL/Venous Duplex US, Unilateral Interpretation Summary No evidence for acute deep venous thrombosis[left] upper extremity with patent and compressible cephalic and basilic veins. Ordering Physician: Jung Yeboah Referring Physician: Jay Kincaid Performed By: Debi Da Silva RVT ???
--- NOTE | 2022-09-05 15:14 | EDS_ITS ---
HPI History of Present Illness Chief Complaint: Edema Narrative Narrative: 72-year-old female presenting with generalized weakness. She has history of CKD. She sees Dr. Abrams. Her gives her history and states that she has been generally weak for a while. Patient's states that she has had some intermittent nausea and vomiting. He states is not an everyday problem. He does admit to decreased p.o. intake as well as increasing weakness. Patient is supposed to follow-up with Dr. Patel as an outpatient for upper endoscopy due to occult blood in stool and history of anemia. He reports that she is no longer on any blood thinners. He also states that he called Dr. Tomlinson office yesterday due to lower extremity edema and was referred today to have outpatient duplex ultrasounds of the bilateral lower extremities. While he was in the suite he states that he noted that nobody had ordered the left upper extremity ultrasound due to left hand swelling. The patient not complain of any pain. She not had any trauma. No bruising. Patient does have a history of PE in the past. Patient's does not know if this was provoked or unprovoked. [facility] Medical History CITLALY (acute kidney injury) Anemia Anxiety Bipolar disorder with moderate depression Confusion state Delirium due to multiple etiologies Diabetes insipidus, nephrogenic Difficulty chewing [place] History of herpes zoster History of tobacco use Hypercalcemia Hypernatremia Hypertension Hyponatremia Carolyn Psychogenic polydipsia Pulmonary emboli Renal disease Schizophrenia Secondary hyperparathyroidism of renal origin Smoking Syncope Tardive dyskinesia Home Medications cinacalcet 30 mg tablet 30 mg PO SUMOWEFR 10/04/20 [History Last Taken 09/05/22] methimazole 5 mg tablet 5 mg PO SUMOWEFR 10/04/20 [History Last Taken 09/05/22] memantine 10 mg tablet 10 mg PO DAILY 01/03/21 [History Last Taken 09/05/22] cholecalciferol (vitamin D3) 50 mcg (2,000 unit) capsule 2,000 unit PO DAILY SUPPLEMENT 01/15/21 [History Last Taken 09/05/22] ferrous sulfate 325 mg (65 mg iron) tablet 325 mg PO BID SUPPLEMENT 01/15/21 [History Last Taken 09/05/22] tramadol 50 mg tablet 50 mg PO BID 01/21/22 [History Last Taken 09/05/22] aripiprazole 20 mg tablet 20 mg PO DAILY 09/05/22 [History Last Taken 09/05/22] denosumab 60 mg/mL subcutaneous syringe (Prolia) 60 mg subcut UD 09/05/22 [History Last Taken 2 Weeks Ago ~08/22/22] losartan 25 mg tablet 25 mg PO DAILY 09/05/22 [History Last Taken 09/05/22] melatonin 10 mg capsule 10 mg PO QHS 09/05/22 [History Last Taken 09/04/22] ondansetron 8 mg disintegrating tablet 8 mg PO Q6H PRN NAUSEAU 09/05/22 [History Last Taken 09/04/22] oxybutynin chloride 15 mg tablet,extended release 24 hr 15 mg PO DAILY 09/05/22 [History Last Taken 09/05/22] polyethylene glycol 3350 17 gram/dose oral powder (Miralax) 17 g PO DAILY 09/05/22 [History Last Taken 09/05/22] Allergy/AdvReac Type Severity Reaction Status Date / Time No Known Allergies Allergy Verified 09/05/22 14:27 Social History Smoking Status: Former smoker ROS ROS ED Constitutional Constitutional ED: Denies chills or fever(s) Eyes Eyes: Denies change in vision or diplopia ENT ENT ED: Denies rhinorrhea or sore throat Cardiovascular Cardiovascular: Denies chest pain or palpitations Respiratory/Chest Respiratory/Chest: Denies cough or dyspnea Gastrointestinal Gastrointestinal: Denies abdominal pain, nausea or vomiting Genitourinary Genitourinary ED: Denies dysuria or hematuria Musculoskeletal Musculoskeletal: Denies back pain Integumentary Denies abscess or Abrasions Neurologic Neurologic: Reports weakness Psychiatric Psychiatric: Denies anxiety or depression EXAM Physical Exam Const Vital Signs: 09/05/22 14:27 09/05/22 14:37 09/05/22 14:37 Temperature 97.8 F Temperature Source Oral Pulse Rate 96 87 Respiratory Rate 16 20 H Respiratory Effort Normal Non-Labored Respiratory Pattern Normal Blood Pressure 89/57 L Blood Pressure Mean 67 Pulse Ox 97 93 Oxygen Delivery Method Room Air Room Air Positive well nourished General Appearance ED: NAD HEENT HEENT Narrative: Dry mucous membrane normocephalic Eyes PERRL and EOMs intact bilaterally Resp normal respiratory effort and clear to auscultation bilaterally Cardio regular rate and regular rhythm GI non-tender Back/Spine no CVA tenderness Extremity Extremity Narrative: Mild left upper extremity edema around the wrist. No pain to palpation. No ecchymosis, rash, deformity. Left hand neurovascular intact brisk up refill to all 5 fingers. General Extremety ED: Yes edema General Extremity: edema Neuro CN's II-XII intact bilaterally Sensorium / Orientation: alert Motor Exam: general weakness Skin Lesions: no lesions Rashes: no rashes MDM MDM MDM Narrative Medical decision making narrative: Patient's reports that her lower extremity duplexes were negative for DVT. He request one of the left upper extremity which is ordered. Her BMP today showed her creatinine was elevated at 2.57. She was given a liter of IV fluids since her blood pressure was a little soft at 89/57. Heart rate is normal. We will check a CBC as well given the patient's history of anemia and GI bleed and she is awaiting endoscopy. states that she is not on blood thinners currently. CBC shows a leukocytosis of 25.5. Hemoglobin is low at 9.9. Low back to discuss this with the he states that the patient has been generally weaker since her last visit to the ED. She has progressed to the point where she is unable to care for herself and he is having to dress her every day. He reports that he got to the hospital today that she was too weak to ambulate and had to be wheeled in in a wheelchair. She reports that she has had a fever at home. She has been coughing some for about 2 weeks. No sputum production was noted. He does report a history of UTIs in the past. He also states that with her intermittent nausea and vomiting she may not be getting the appropriate amount of fluids that she is post to take orally daily. He also states that he followed up with his primary care physician after his last visit to the ED and had testing done which showed she had blood in her stool. She does have melena but also takes iron chronically and this test was ordered to make sure that she did not have occult blood in her stool given her history of anemia. He again states he is not on any blood thinners currently. PT/INR normal. Lactic acid within normal limits. Chest x-ray was ordered given the patient's pulse ox reading 93 as well as a leukocytosis and on my interpretation it shows a right lower lobe pneumonia without right-sided pleural effusion. I suspect patient likely has an aspiration pneumonia given her history of vomiting intermittently. Her again notes he has not had any fever at home. EKG on my interpretation shows a normal sinus rhythm with a ventricular rate of 81 bpm without sign of ischemic change or dysrhythmia. Patient was covered with Unasyn and the hospitalist wants to also add azithromycin. This was given. Urinalysis is negative for infection. Patient pancultured. Blood pressure initially responded to 99/69 however the patient's blood pressure dropped to 88/59. This is near where she came in at. She was given a second liter of IV fluids. I discussed with the hospitalist for admission. Impression: 1. Aspiration pneumonia versus community-acquired pneumonia 2. Leukocytosis 3. Generalized weakness 4. CKD Lab Data Attestation: I reviewed the patient's lab results. Discharge Plan Triage Chief Complaint: Edema ED Provider: Jung Yeboah Dx/Rx/DC Orders Prescriptions: No Action tramadol 50 mg tablet 50 mg PO BID methimazole 5 MG tablet 5 mg PO SUMOWEFR cinacalcet 30 MG tablet 30 mg PO SUMOWEFR memantine 10 MG tablet 10 mg PO DAILY ferrous sulfate 325 MG tablet 325 mg PO BID cholecalciferol (vitamin D3) 2,000 UNIT capsule 2,000 unit PO DAILY oxybutynin chloride 15 mg tablet extended release 24hr 15 mg PO DAILY Label Comments: take 1 tablet by mouth every morning ondansetron 8 mg tablet,disintegrating 8 mg PO Q6H PRN (Reason: NAUSEAU) Label Comments: dissolve 1 tablet ON TONGUE every 6 hours if needed losartan 25 mg tablet 25 mg PO DAILY Label Comments: take 1 tablet by mouth once daily polyethylene glycol 3350 [Miralax] 17 gram/dose Powder 17 g PO DAILY aripiprazole 20 mg tablet 20 mg PO DAILY Label Comments: take 1 tablet by mouth once daily Prolia 60 mg/mL Syringe 60 mg SUBCUT UD melatonin 10 mg Capsule 10 mg PO QHS Primary Care Provider: Jay Kincaid NP Referrals: Jay Kincaid NP, INTEGRATED MARKETING MANAGER-C [Primary Care Provider] -
[2022-09-05] MEDS: 0.9% Normal Saline 1,000 ML 1000 ML IV (15:42)
[2022-09-05 16:16] LABS: Absolute Lymphocyte Count 1.03 X10^3/uL (0.83-4.51); Absolute Neutrophil Count 22.7 X10^3/uL (2.0-7.7); Basophil# 0.03 X10^3/uL; Basophil% 0.1 % (0-1); Eosinophil# 0.01 X10^3/uL; Hemoglobin 9.9 g/dL (12.0-15.0); Lymphocyte # 1.03 X10^3/ul (0.83-4.51); Mean Corpuscular Hgb 30.4 pg (27.0-32.0); Mean Platelet Vol. 8.5 fl (6.2-12.0); Monocyte# 1.44 X10^3/uL; Monocyte% 5.7 % (0-10); NRBC Flagged by Analyzer 0 % (0-5); Neutrophil # 22.72 X10^3/uL (2.7-7.7); Neutrophil % 89.3 % (47-70); POSITIVE DIFFERENTIAL YES; Platelet Count 516 K/mm3 (150-450); RBC Distribution Width CV 13.9 % (11.6-14.6); RBC Distribution Width SD 45.3 fl (35.1-43.9); Red Blood Count 3.26 M/mm3 (4.2-5.4); White Blood Count 25.5 K/mm3 (4.4-11.0)
[2022-09-05 16:17] LABS: Differential Indicated SCAN CRITERIA MET
[2022-09-05 16:46] LABS: Platelet Estimate SLT INC (ADEQ); Red Cell Morphology NORM C+C NORMAL (NORM C&C)
--- NOTE | 2022-09-05 17:00 | RAD_ITS ---
STUDY: X-RAY CHEST REASON FOR EXAM: Female, 72 years old. weakness TECHNIQUE: XR Chest 1 View COMPARISON: 10/05/2020 FINDINGS: There is atherosclerotic calcification of the aortic arch with tortuosity. There are diffuse degenerative changes of the visualized thoracic spine. There is degenerative osteoarthritis of the bilateral shoulders. There is a right pleural effusion. Right infiltrate. Normal size heart. Normal mediastinum and tarik. Normal visualized pulmonary arteries. There is no demonstrated abnormality of the visualized soft tissue structures of the upper abdomen. RAD/Chest 1 View (Portable) IMPRESSION: Right sided pneumonia. Right pleural effusion. Electronically Signed: Osvaldo Michael MD at 17:27 EDT ,
[2022-09-05 17:16] LABS: Bacteria 0 SEEN /hpf (None Seen); Mucous, Urine 0 SEEN /hpf (<or=2+); Red Blood Cells-Urine 0 SEEN /hpf (0-5); Squamous Epithelial Cells - UA 0 SEEN /hpf (5-10); White Blood Cells 0 SEEN /hpf (0-5)
[2022-09-05 17:21] LABS: AST(SGOT) 52 U/L (15-37); Alanine Aminotransfer ALT/SGPT 36 U/L (13-56); Albumin, Serum 1.7 g/dL (3.2-5.0); Alkaline Phosphatase 82 U/L (45-117); Bilirubin, Direct 0.09 mg/dL (0.00-0.30); Globulin 3.9 g/dL (2.2-4.2); Protein, Total 5.6 g/dL (6.4-8.2)
[2022-09-05 17:22] LABS: Color, Urine Straw (Yellow); Glucose, Dipstick Normal (Normal); Ketone-Dipstick Negative (Negative); Leukocyte Esterase-Dipstick Negative /ul (Negative); Nitrite-Dipstick Negative (Negative); Occult Blood-Urine 150 /ul (Negative); Protein-Dipstick 15 mg/dl (Negative); Urine Bilirubin Dipstick Negative (Negative); Urine Clarity Clear (Clear); Urine Urobilinogen Normal (Normal)
--- NOTE | 2022-09-05 17:35 | EKG12_ITS ---
Test Reason : Blood Pressure : / mmHG Vent. Rate : 081 BPM Atrial Rate : 081 BPM P-R Int : 182 ms QRS Dur : 084 ms QT Int : 362 ms P-R-T Axes : 053 045 060 degrees QTc Int : 420 ms Normal sinus rhythm ST elevation, consider early repolarization;p pericarditis, myocardial injury Clinical correlation recommended Confirmed by LING ORELLANA, JENNIFER ([id number]), fashion editor BRIANA CHUNG ([id number]) on 09/08/2022 8:31:54 AM Referred By: Confirmed By:JENNIFER DUBON MD
[2022-09-05 17:40] LABS: Lactic Acid 1.3 mmol/L (0.4-1.9)
[2022-09-05 17:41] LABS: Prothrombin Time (Protime)PT. 13.2 SECONDS (11.7-14.9)
[2022-09-05] MEDS: 0.9% Normal Saline 1,000 ML 999 ML IV (18:07)
--- NOTE | 2022-09-05 19:07 | HP.PCM.HOS_ITS ---
HPI - General General Date of Admission: 09/05/22 HPI Narrative SIMONA HERNANDEZ, is a 72 F who presents from home with weakness and bilateral lower extremity swelling with a left upper extremity swelling. She was brought to the hospital by her initially for venous Doppler of her lower extremity and her upper extremity both of these were negative for blood clots. There was concern because of the swelling and her history of PEs. She has discontinued Eliquis about a year ago. She was also found to have Hemoccult as an outpatient positive for blood. In the ER she is found to have a white blood cell count of 25.5, however her vital signs are stable, she does have generally low blood pressures as an outpatient. Chest x-ray demonstrates a right lower lobe pneumonia with possible pleural effusion. The states that she has been throwing up periodically for the last month so it is possible that she also has a component of aspiration. She was supposed to get an upper GI done on Thursday to evaluate her emesis as well as her GI bleeding. She was able to provide history however she seemed somnolent and so most of the history was obtained from discussion with the ED physician as well as the . [facility] Medical History CITLALY (acute kidney injury) Anemia Anxiety Bipolar disorder with moderate depression Confusion state Delirium due to multiple etiologies Diabetes insipidus, nephrogenic Difficulty chewing [place] History of herpes zoster History of tobacco use Hypercalcemia Hypernatremia Hypertension Hyponatremia Carolyn Psychogenic polydipsia Pulmonary emboli Renal disease Schizophrenia Secondary hyperparathyroidism of renal origin Smoking Syncope Tardive dyskinesia Home Medications cinacalcet 30 mg tablet 30 mg PO SUMOWEFR 10/04/20 [History Last Taken 09/05/22] methimazole 5 mg tablet 5 mg PO SUMOWEFR 10/04/20 [History Last Taken 09/05/22] memantine 10 mg tablet 10 mg PO DAILY 01/03/21 [History Last Taken 09/05/22] cholecalciferol (vitamin D3) 50 mcg (2,000 unit) capsule 2,000 unit PO DAILY SUPPLEMENT 01/15/21 [History Last Taken 09/05/22] ferrous sulfate 325 mg (65 mg iron) tablet 325 mg PO BID SUPPLEMENT 01/15/21 [History Last Taken 09/05/22] tramadol 50 mg tablet 50 mg PO BID 01/21/22 [History Last Taken 09/05/22] aripiprazole 20 mg tablet 20 mg PO DAILY 09/05/22 [History Last Taken 09/05/22] denosumab 60 mg/mL subcutaneous syringe (Prolia) 60 mg subcut UD 09/05/22 [History Last Taken 2 Weeks Ago ~08/22/22] losartan 25 mg tablet 25 mg PO DAILY 09/05/22 [History Last Taken 09/05/22] melatonin 10 mg capsule 10 mg PO QHS 09/05/22 [History Last Taken 09/04/22] ondansetron 8 mg disintegrating tablet 8 mg PO Q6H PRN NAUSEAU 09/05/22 [History Last Taken 09/04/22] oxybutynin chloride 15 mg tablet,extended release 24 hr 15 mg PO DAILY 09/05/22 [History Last Taken 09/05/22] polyethylene glycol 3350 17 gram/dose oral powder (Miralax) 17 g PO DAILY 09/05/22 [History Last Taken 09/05/22] Allergy/AdvReac Type Severity Reaction Status Date / Time No Known Allergies Allergy Verified 09/05/22 14:27 Family History no significant family his no significant family history Surgical History no surgical history no surgical history Social History Smoking Status: Former smoker ROS Constitutional Constitutional: Reports malaise; Denies chills, fatigue or fever(s) Eyes Eyes: Denies blurry vision ENT HEENT: Denies headache(s) or nasal discharge Cardiovascular Cardiovascular: Reports edema; Denies chest pain, dyspnea on exertion or syncope Respiratory/Chest Respiratory/Chest: Reports cough; Denies shortness of breath at rest or shortness of breath with exertion Gastrointestinal Gastrointestinal: Reports nausea and vomiting; Denies constipation or diarrhea Genitourinary Genitourinary: Denies dysuria Neurologic Neurologic: Denies focal weakness, numbness or tremor(s) Psychiatric Psychiatric: Denies anxiety or depression Vital Signs Vital Signs Vital Signs: 09/05/22 14:27 09/05/22 14:37 09/05/22 14:37 Temperature 97.8 F Temperature Source Oral Pulse Rate 96 87 Respiratory Rate 16 20 H Respiratory Effort Normal Non-Labored Respiratory Pattern Normal Blood Pressure 89/57 L Blood Pressure Mean 67 Pulse Ox 97 93 Oxygen Delivery Method Room Air Room Air 09/05/22 16:55 09/05/22 17:56 09/05/22 18:14 Temperature 97.9 F 98.0 F 98.0 F Temperature Source Temporal Oral Oral Pulse Rate 81 88 77 Respiratory Rate 20 H 18 12 Respiratory Effort Respiratory Pattern Blood Pressure 99/69 88/59 L 84/69 L Blood Pressure Mean 79 68 74 Pulse Ox 94 96 93 Oxygen Delivery Method Room Air Room Air Room Air 09/05/22 18:33 Temperature Temperature Source Pulse Rate Respiratory Rate Respiratory Effort Respiratory Pattern Blood Pressure 94/58 L Blood Pressure Mean 70 Pulse Ox Oxygen Delivery Method Weight Weight: 145 lb Body Mass Index (BMI) 24.1 Physical Exam Narrative General: Alert, Oriented x3, Cooperative, No apparent distress, somnolent HEENT: Atraumatic, PERRLA, EOMI, Normocephalic Oral: Dry mucosa Neck: Supple, No JVD Lungs: Diminished right base, Normal air movement, No rhonchi, No wheeze, No rales Cardiovascular: Regular rate, Regular Rhythm, Normal S1, Normal S2, No murmurs Abdomen: Soft, Non Tender, Non-Distended, No Hepato-splenomegaly Extremities: Trace pitting edema bilateral lower extremity, Capillary Refill Less than 3 Seconds Skin: No rashes, No breakdown Musculoskeletal: No Tenderness to Palpation of Joints or Extremities Neurological: Cranial nerves II-XII grossly intact, Motor Exam 5/5 strength throughout, Sensory exam intact to light touch and pain Psych/Mental Status: Flat affect, Appropriate Results Lab / Micro Data Result Diagrams: 09/05/22 13:11 Labs: Laboratory Results - last 24 hr 09/05/22 13:11: WBC 25.5 H, RBC 3.26 L, Hgb 9.9 L, Hct 30.0 L, MCV 92.0, MCH 30.4, MCHC 33.0, RDW Std Deviation 45.3 H, RDW Coeff of Lee 13.9, Plt Count 516 H, MPV 8.5, Immature Gran % (Auto) 0.900, Neut % (Auto) 89.3 H, Lymph % (Auto) 4.0 L, [place] % (Auto) 5.7, Eos % (Auto) 0.0, Baso % (Auto) 0.1, Absolute Neuts (auto) 22.7 H, Absolute Lymphs (auto) 1.03, Nucleated RBC % 0, Differential Comment , Diff Path Review May foll, Platelet Estimate [employer], RBC Morphology NORM C+C 09/05/22 16:55: PT 13.2, INR 1.0 09/05/22 16:55: Total Bilirubin 0.20, Direct Bilirubin 0.09, AST 52 H, ALT 36, Alkaline Phosphatase 82, Total Protein 5.6 L, Albumin 1.7 L, Globulin 3.9 09/05/22 16:55: Lactic Acid 1.3 09/05/22 16:55: Blood Type B POSITIVE, Antibody Screen NEGATIVE 09/05/22 17:00: Urine Color Straw, Urine Clarity Clear, Urine pH 6.0, Ur Specific [place] 1.010, Urine Protein 15 H, Urine Glucose (UA) Normal, Urine Ketones Negative, Urine Occult Blood 150 H, Urine Nitrite Negative, Urine Bilirubin Negative, Urine Urobilinogen Normal, Ur Leukocyte Esterase Negative, Urine RBC 0 SEEN, Urine WBC 0 SEEN, Ur Squamous Epith Cells 0 SEEN, Urine Bacteria 0 SEEN, Urine Mucus 0 SEEN Radiology Impression Venous Doppler Study 09/05/22 15:12 Interpretation Summary No evidence for acute deep venous thrombosis[left] upper extremity with patent and compressible cephalic and basilic veins. Ordering Physician: Jung Yeboah Referring Physician: Jay Kincaid Performed By: Debi Da Silva RVT ??? Chest X-Ray 09/05/22 17:00 IMPRESSION: Right sided pneumonia. Right pleural effusion. Electronically Signed: Osvaldo Michael MD at 17:27 EDT Reading Location ID and State: [facility] / [place] , Service support , Assessment & Plan Assessment/Plan (1) Pneumonia: PLAN: Plan 1. Aspiration versus community-acquired pneumonia/hyponatremia due to dehydration versus diabetes insipidus from her lithium ? Continue with Unasyn and azithromycin ? denies any choking with meals however she has been having multiple episodes of emesis that she was can have a scope for on Thursday, it is possible that she may have aspirated during 1 of these episodes ? We will have her evaluated by speech therapy in the meantime we will make her n.p.o. ? Continue with IV fluids secondary to her hyponatremia which is likely due to dehydration and her recent episodes for over the last month of multiple emesis, may possibly due to her diabetes insipidus 2. Diabetes insipidus secondary to lithium use for history of bipolar disorder/CITLALY on CKD 3B ? She was having edema which according to the by the time of my evaluation has essentially resolved ? Upper extremity Dopplers negative for blood clot ? Baseline creatinine is around 1.4-1.6, will continue to monitor ? We will hold losartan secondary to low blood pressures in the setting of her pneumonia ? Continue with Cinacalcet 3. Chronic iron deficiency anemia with possible GI bleed ? We will trend her hemoglobin, it is down to 9.9 today on admission ? Per reports she had a positive Hemoccult as an outpatient, the only one we have in our system is the one done on 08/21/2022 which was negative for blood ? If her hemoglobin continues to drop may need to repeat one here for confirmation prior to consulting GI for possible scope ? Continue with her iron supplementation 4. Primary hyperparathyroidism ? Stable ? Continue with methimazole 5. Bipolar disorder ? Stable ? Continue with Abilify DVT: SCDs Charges/Coding Visit Charges Inpatient E&M: 35219 Init Hosp L2
[2022-09-05 19:23] LABS: Troponin-I HS 25 pg/mL (3.0-54.0)
[2022-09-05] MEDS: 0.9% Normal Saline 1,000 ML 100 ML IV (21:40)
[2022-09-06] VITALS (21 sets, daily range): BP systolic 83–128; BP diastolic 43–81; PULSE 73–94; RESP 13–20; TEMP 36.4–36.8; O2SAT 91–96
[2022-09-06] MEDS: 0.9% Normal Saline 1,000 ML 999 ML IV (02:10)
[2022-09-06 06:08] LABS: Absolute Lymphocyte Count 1.37 X10^3/uL (0.83-4.51); Absolute Neutrophil Count 9.3 X10^3/uL (2.0-7.7); Basophil# 0.01 X10^3/uL; Basophil% 0.1 % (0-1); Eosinophil# 0.03 X10^3/uL; Eosinophils% 0.3 % (0-5); Hematocrit 20.6 % (37-47); Hemoglobin 6.6 g/dL (12.0-15.0); Lymphocyte # 1.37 X10^3/ul (0.83-4.51); Lymphocyte % 11.9 % (19-41); Mean Corpuscular Hgb 31.1 pg (27.0-32.0); Mean Corpuscular Volume 97.2 fL (81-99); Mean Platelet Vol. 8.3 fl (6.2-12.0); Monocyte# 0.73 X10^3/uL; Monocyte% 6.3 % (0-10); NRBC Flagged by Analyzer 0 % (0-5); Neutrophil # 9.25 X10^3/uL (2.7-7.7); Neutrophil % 80.4 % (47-70); Platelet Count 313 K/mm3 (150-450); RBC Distribution Width CV 14.1 % (11.6-14.6); RBC Distribution Width SD 48.9 fl (35.1-43.9); Red Blood Count 2.12 M/mm3 (4.2-5.4); White Blood Count 11.5 K/mm3 (4.4-11.0)
[2022-09-06 06:45] LABS: Anion Gap 7 (5-15); BUN 32 mg/dL (7-18); BUN/Creat Ratio 17.3 RATIO (10-20); Calcium,Total 6.8 mg/dL (8.5-10.1); Chloride 107 mmol/L (98-107); Creatinine, Serum 1.85 mg/dL (0.55-1.02); EST Glomerular Filtration Rate 28 mL/min (>60); Est Glom Filt Rate - Afr Amer 34 mL/min (>60); Estimated Creatinine Clearance 24.37 ml/min; Glucose 75 mg/dL (74-106); Potassium 3.5 mmol/L (3.5-5.1); Sodium Level 136 mmol/L (136-145)
--- NOTE | 2022-09-06 09:06 | PCM.PN.HOSP ---
Subjective Subjective Follow-up on CVA anemia/probable GI bleed/hypotension: Patient was seen and examined. Her blood pressures have been low on the floor. She has had more than 4 L of fluid. She denied any hematochezia or melena since admission. Patient's at bedside stated that patient has had melena stools for days prior to admission. She denied any dizziness or palpitations or chest pain Objective Data Objective Data Vital Signs: Vital Signs Temp Pulse Resp BP Pulse Ox O2 Del Method 97.9 F 75 16 86/43 L 91 Room Air 09/06/22 08:40 09/06/22 08:40 09/06/22 08:40 09/06/22 08:40 09/06/22 08:40 09/06/22 08:40 Oxygen Delivery Method Room Air Weight: 67.177 kg Body Mass Index (BMI) 24.6 Intake & Output: Intake and Output for Last 24 Hours 09/04/22 09/05/22 09/06/22 23:59 23:59 23:59 Intake Total 2477 / 2477 2000 / 1999 Output Total 1200 / 1200 Balance 2477 / 2477 800 / 800 Lab / Micro Data Result Diagrams: 09/06/22 05:08 09/06/22 05:08 Labs: Laboratory Results - last 24 hr 09/05/22 13:11: WBC 25.5 H, RBC 3.26 L, Hgb 9.9 L, Hct 30.0 L, MCV 92.0, MCH 30.4, MCHC 33.0, RDW Std Deviation 45.3 H, RDW Coeff of Lee 13.9, Plt Count 516 H, MPV 8.5, Immature Gran % (Auto) 0.900, Neut % (Auto) 89.3 H, Lymph % (Auto) 4.0 L, [place] % (Auto) 5.7, Eos % (Auto) 0.0, Baso % (Auto) 0.1, Absolute Neuts (auto) 22.7 H, Absolute Lymphs (auto) 1.03, Nucleated RBC % 0, Differential Comment , Diff Path Review March, Platelet Estimate [facility], RBC Morphology NORM C+C 09/05/22 16:55: PT 13.2, INR 1.0 09/05/22 16:55: Total Bilirubin 0.20, Direct Bilirubin 0.09, AST 52 H, ALT 36, Alkaline Phosphatase 82, Total Protein 5.6 L, Albumin 1.7 L, Globulin 3.9 09/05/22 16:55: Lactic Acid 1.3 09/05/22 16:55: Blood Type B POSITIVE, Antibody Screen NEGATIVE 09/05/22 16:55: Troponin I High Sens 25 09/05/22 16:55: Crossmatch See Detail 09/05/22 17:00: Urine Color Straw, Urine Clarity Clear, Urine pH 6.0, Ur Specific [place] 1.010, Urine Protein 15 H, Urine Glucose (UA) Normal, Urine Ketones Negative, Urine Occult Blood 150 H, Urine Nitrite Negative, Urine Bilirubin Negative, Urine Urobilinogen Normal, Ur Leukocyte Esterase Negative, Urine RBC 0 SEEN, Urine WBC 0 SEEN, Ur Squamous Epith Cells 0 SEEN, Urine Bacteria 0 SEEN, Urine Mucus 0 SEEN 09/06/22 05:08: WBC 11.5 H, RBC 2.12 L, Hgb 6.6 L, Hct 20.6 L, MCV 97.2 D, MCH 31.1, MCHC 32.0, RDW Std Deviation 48.9 H, RDW Coeff of Lee 14.1, Plt Count 313, MPV 8.3, Immature Gran % (Auto) 1.000 H, Neut % (Auto) 80.4 H, Lymph % (Auto) 11.9 L, [place] % (Auto) 6.3, Eos % (Auto) 0.3, Baso % (Auto) 0.1, Absolute Neuts (auto) 9.3 H, Absolute Lymphs (auto) 1.37, Nucleated RBC % 0 09/06/22 05:08: Sodium 136, Potassium 3.5, Chloride 107, Carbon Dioxide 22.0, Anion Gap 7, BUN 32 H, Creatinine 1.85 H, Estim Creat Clear Calc 24.37, Est GFR (MDRD) Af Amer 34 L, Est GFR (MDRD) Non-Af 28 L, BUN/Creatinine Ratio 17.3, Glucose 75, Calcium 6.8 L Radiography Diagnostic Testing: Radiology Impression Venous Doppler Study 09/05/22 15:12 Interpretation Summary No evidence for acute deep venous thrombosis[left] upper extremity with patent and compressible cephalic and basilic veins. Ordering Physician: Jung Yeboah Referring Physician: Jay Kincaid Performed By: Debi Da Silva, RVT ??? Chest X-Ray 09/05/22 17:00 IMPRESSION: Right sided pneumonia. Right pleural effusion. Electronically Signed: Osvaldo Michael MD at 17:27 EDT , Physical Exam Narrative Physical exam: General: Alert, Oriented x3, Cooperative, appears very pale, not jaundiced HEENT: Atraumatic Oral: Moist Mucosa Neck: Supple Lungs: Clear to auscultation Cardiovascular: HS I+II, regular, no murmurs Abdomen: Bowel Sounds Present, Soft, Non Tender Extremities: No edema Skin: No rashes, No breakdown Neurological: Grossly intact Psych/Mental Status: Appropriate Assessment & Plan Assessment/Plan (1) Pneumonia: (2) CITLALY (acute kidney injury): PLAN: Plan 1. Acute hypotension likely secondary to #2, noted on the Medsurg floor Patient has received multiple 4 L of fluids and still hypotensive Will transfer to ICU, finisher tailor apprentice consult 2. Acute severe anemia likely secondary to acute GI bleed/hemodilution Patient has received more than 4 L of fluid Hemoglobin dropped from 9.9 on admission to 6.6 Patient is being transfused 1 unit of packed RBCs Will trend H&H 3. Probable acute GI bleed, reported stool for occult blood was positive in the outpatient We will check stool for occult blood here Continue on IV PPI twice daily GI consult 4. Acute pneumonia, likely aspiration versus community-acquired; patient is not hypoxic Admitting chest x-ray showed right-sided infiltrate with pleural effusion Blood cultures are pending Continue on IV Unasyn; discontinue IV azithromycin 5. Acute hyponatremia on admission likely secondary to dehydration, resolved H/o DI secondary to lithium use, will trend lab 6. CITLALY on CKD stage III/IV, improved Creatinine today is 1.85, down from 2.57 We will continue to monitor 7. Primary hyperparathyroidism, continue on cinacalcet 8. Hyperthyroidism, continue on methimazole 9. Bipolar disorder/dementia, continue aripiprazole, lorazepam, memantine 10. DVT prophylaxis with SCDs Charges/Coding Visit Charges Inpatient E&M: 63222 Subs Hosp L3
[2022-09-06] MEDS: 0.9% Saline Lock 10 ML Syringe IV (09:10)
[2022-09-06] MEDS: ARIPiprazole 10 MG Tablet 20 MG PO (09:13)
[2022-09-06] MEDS: Ferrous Sulfate 325 MG Tablet PO ×2 (09:13→17:12)
[2022-09-06] MEDS: Memantine Hydrochloride 10 MG Tablet PO (09:13)
[2022-09-06] MEDS: Tolterodine Tartrate 2 MG CAP.SA PO (09:14)
[2022-09-06 10:18] LABS: AST(SGOT) 39 U/L (15-37); Alanine Aminotransfer ALT/SGPT 26 U/L (13-56); Albumin, Serum 1.1 g/dL (3.2-5.0); Alkaline Phosphatase 60 U/L (45-117); Bilirubin, Direct < 0.05 mg/dL (0.00-0.30); Globulin 2.6 g/dL (2.2-4.2); Protein, Total 3.7 g/dL (6.4-8.2)
--- NOTE | 2022-09-06 11:50 | CASEMGMT ---
RN CM Face to Face with patient for initial transition planning/care coordination assessment. RN CM introduced self and role at [facility]. Patient sitting in chair, alert and oriented, at bedside. Patient willing to participate in assessment and is able to answer all questions appropriately. Care providers, pharmacy, and demographics verified. Patient wishes to discharge home, declining HHC at this time, will monitor for HHC at discharge. Patient states she has no further needs or concerns at this time. CM to follow for discharge planning needs that may arise. PCP: CARMENZA Kincaid Specialists: Yovani, pain; Jose Alberto, nephro; Jodie, psychiatrist; Amanuel, justice court deputy clerk; Khurram, derm; Salome, urologist; [facility] Preferred [facility]acy: [facility] Insurance: [employer] Prescription Benefit: yes Living Will/HPOA: yes, Jeffrey Escamilla LNOK: Living Arrangements: Patient lives with in a single story home with 3 steps and railing to enter the home. Patient was independent prior to current illness, has been assisting patient here recently Transportation: DME/HHC: Patient has built in shower chair, raised toilet, cane, grab bars at home. Patient may benefit from walker at discharge. Will monitor for HHC pending progress with therapy Disposition Plan: Patient to discharge home with family support and follow-up plans in place. Will monitor for need for HHC. Debi ARMANDO, RN, CM
[2022-09-06] MEDS: traMADol 50 MG Tablet PO ×2 (11:52→21:15)
[2022-09-06] MEDS: LORazepam 1 MG Tablet 2 MG PO ×3 (11:52→21:15)
[2022-09-06] MEDS: Polyethylene Glycol 3350 17 GM PACKET PO (11:52)
[2022-09-06] MEDS: 0.9% Normal Saline 1,000 ML 75 ML IV (11:54)
--- NOTE | 2022-09-06 13:19 | CASEMGMT ---
Social Work As per admitting private mortgage banker safe, pt has LW/POA and will bring in the forms at some time. Austin Escamilla is POA as per pt. PARMJIT Aceves
[2022-09-06 15:06] LABS: Absolute Lymphocyte Count 0.92 X10^3/uL (0.83-4.51); Absolute Neutrophil Count 9.2 X10^3/uL (2.0-7.7); Basophil# 0.01 X10^3/uL; Basophil% 0.1 % (0-1); Eosinophil# 0.04 X10^3/uL; Eosinophils% 0.4 % (0-5); Hematocrit 30.5 % (37-47); Hemoglobin 9.9 g/dL (12.0-15.0); Lymphocyte # 0.92 X10^3/ul (0.83-4.51); Lymphocyte % 8.3 % (19-41); Mean Corp Hgb Conc 32.5 g/dL (32-36); Mean Corpuscular Hgb 31.5 pg (27.0-32.0); Mean Corpuscular Volume 97.1 fL (81-99); Mean Platelet Vol. 7.8 fl (6.2-12.0); Monocyte# 0.75 X10^3/uL; Monocyte% 6.8 % (0-10); NRBC Flagged by Analyzer 0 % (0-5); Neutrophil % 83.4 % (47-70); Platelet Count 334 K/mm3 (150-450); RBC Distribution Width CV 14.2 % (11.6-14.6); RBC Distribution Width SD 50.2 fl (35.1-43.9); Red Blood Count 3.14 M/mm3 (4.2-5.4)
[2022-09-06 15:21] LABS: ALB/GLOB Ratio 0.4 RATIO (0.9-2.4); AST(SGOT) 38 U/L (15-37); Alanine Aminotransfer ALT/SGPT 33 U/L (13-56); Albumin, Serum 1.3 g/dL (3.2-5.0); Alkaline Phosphatase 72 U/L (45-117); Anion Gap 7 (5-15); BUN 28 mg/dL (7-18); BUN/Creat Ratio 14.3 RATIO (10-20); Calcium,Total 7.1 mg/dL (8.5-10.1); Chloride 108 mmol/L (98-107); Creatinine, Serum 1.96 mg/dL (0.55-1.02); EST Glomerular Filtration Rate 27 mL/min (>60); Est Glom Filt Rate - Afr Amer 32 mL/min (>60); Globulin 3.3 g/dL (2.2-4.2); Glucose 141 mg/dL (74-106); Potassium 3.2 mmol/L (3.5-5.1); Protein, Total 4.6 g/dL (6.4-8.2); Sodium Level 139 mmol/L (136-145)
--- NOTE | 2022-09-06 15:48 | PCM.CONS.GEN ---
Assessment & Plan Assessment/Plan (1) Anemia: PLAN: New onset anemia possibly secondary to GI bleed. Differential diagnosis does include angiodysplasia, gave, Shaji's erosions, less likely peptic ulcer disease. . (2) GI bleed: PLAN: Patient has not seen any active GI bleeding since being in the hospital. She will likely need upper endoscopy to evaluate her upper GI tract and possibly colonoscopy inpatient versus outpatient. HPI Consult Data Date of Consult: 09/06/22 HPI Narrative Reason for Consultation: GI bleed HPI Narrative: SIMONA HERNANDEZ, is a 72 F who presents with weakness and bilateral lower extremity swelling with a left upper extremity swelling.? She was brought to the hospital by her initially for venous Doppler of her lower extremity and her upper extremity both of these were negative for blood clots.? There was concern because of the swelling and her history of PEs.? She has discontinued Eliquis about a year ago. 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 ? She was also found to have Hemoccult as an outpatient positive for blood.? In the ER she is found to have a white blood cell count of 25.5, however her vital signs are stable, she does have generally low blood pressures as an outpatient.? Chest x-ray demonstrates a right lower lobe pneumonia with possible pleural effusion.? The states that she has been throwing up periodically for the last month so it is possible that she also has a component of aspiration.? She was supposed to get an upper GI done on Thursday to evaluate her emesis as well as her GI bleeding.? She was able to provide history however she seemed somnolent and so most of the history was obtained from discussion with the ED physician as well as the . I was called to manage her anemia and possible GI bleed. [facility] Medical History (Updated 09/06/22 @ 15:[address] Blanco Friend, DO) CITLALY (acute kidney injury) Anemia Anxiety Bipolar disorder with moderate depression Confusion state Delirium due to multiple etiologies Diabetes insipidus, nephrogenic Difficulty chewing [place] History of herpes zoster History of tobacco use Hypercalcemia Hypernatremia Hypertension Hyponatremia Carolyn Psychogenic polydipsia Pulmonary emboli Renal disease Schizophrenia Secondary hyperparathyroidism of renal origin Smoking Syncope Tardive dyskinesia Home Medications cinacalcet 30 mg tablet 30 mg PO SUMOWEFR 10/04/20 [History Last Taken 09/05/22] methimazole 5 mg tablet 5 mg PO SUMOWEFR 10/04/20 [History Last Taken 09/05/22] memantine 10 mg tablet 10 mg PO DAILY 01/03/21 [History Last Taken 09/05/22] cholecalciferol (vitamin D3) 50 mcg (2,000 unit) capsule 2,000 unit PO DAILY SUPPLEMENT 01/15/21 [History Last Taken 09/05/22] ferrous sulfate 325 mg (65 mg iron) tablet 325 mg PO BID SUPPLEMENT 01/15/21 [History Last Taken 09/05/22] tramadol 50 mg tablet 50 mg PO BID 01/21/22 [History Last Taken 09/05/22] aripiprazole 20 mg tablet 20 mg PO DAILY 09/05/22 [History Last Taken 09/05/22] denosumab 60 mg/mL subcutaneous syringe (Prolia) 60 mg subcut UD 09/05/22 [History Last Taken 2 Weeks Ago ~08/22/22] lorazepam 2 mg tablet 2 mg PO 4XD anxiety 09/05/22 [History Last Taken 09/05/22 09:00] losartan 25 mg tablet 25 mg PO DAILY 09/05/22 [History Last Taken 09/05/22] melatonin 10 mg capsule 10 mg PO QHS 09/05/22 [History Last Taken 09/04/22] ondansetron 8 mg disintegrating tablet 8 mg PO Q6H PRN NAUSEAU 09/05/22 [History Last Taken 09/04/22] oxybutynin chloride 15 mg tablet,extended release 24 hr 15 mg PO DAILY 09/05/22 [History Last Taken 09/05/22] polyethylene glycol 3350 17 gram/dose oral powder (Miralax) 17 g PO DAILY 09/05/22 [History Last Taken 09/05/22] Allergy/AdvReac Type Severity Reaction Status Date / Time No Known Allergies Allergy Verified 09/05/22 14:27 Family History no significant family his Surgical History no surgical history Social History Smoking Status: Former smoker ROS Constitutional Constitutional: Reports malaise; Denies chills, fatigue or fever(s) Eyes Eyes: Denies blurry vision ENT HEENT: Denies headache(s) or nasal discharge Cardiovascular Cardiovascular: Reports edema; Denies chest pain, dyspnea on exertion or syncope Respiratory/Chest Respiratory/Chest: Reports cough; Denies shortness of breath at rest or shortness of breath with exertion Gastrointestinal Gastrointestinal: Reports nausea and vomiting; Denies constipation or diarrhea Genitourinary Genitourinary: Denies dysuria Neurologic Neurologic: Denies focal weakness, numbness or tremor(s) Psychiatric Psychiatric: Denies anxiety or depression Physical Exam Narrative Physical exam: General: Alert, Oriented x3, Cooperative, appears very pale, not jaundiced HEENT: Atraumatic Oral: Moist Mucosa Neck: Supple Lungs: Clear to auscultation Cardiovascular: HS I+II, regular, no murmurs Abdomen: Bowel Sounds Present, Soft, Non Tender Extremities: No edema Skin: No rashes, No breakdown Neurological: Grossly intact Psych/Mental Status: Appropriate Lab / Micro Data Result Diagrams: 09/06/22 14:45 09/06/22 14:45 Labs: Laboratory Results - last 24 hr 09/05/22 13:11: WBC 25.5 H, RBC 3.26 L, Hgb 9.9 L, Hct 30.0 L, MCV 92.0, MCH 30.4, MCHC 33.0, RDW Std Deviation 45.3 H, RDW Coeff of Lee 13.9, Plt Count 516 H, MPV 8.5, Immature Gran % (Auto) 0.900, Neut % (Auto) 89.3 H, Lymph % (Auto) 4.0 L, [place] % (Auto) 5.7, Eos % (Auto) 0.0, Baso % (Auto) 0.1, Absolute Neuts (auto) 22.7 H, Absolute Lymphs (auto) 1.03, Nucleated RBC % 0, Differential Comment , Diff Path Review May vaishali, Platelet Estimate SLT INC, RBC Morphology NORM C+C 09/05/22 16:55: PT 13.2, INR 1.0 09/05/22 16:55: Total Bilirubin 0.20, Direct Bilirubin 0.09, AST 52 H, ALT 36, Alkaline Phosphatase 82, Total Protein 5.6 L, Albumin 1.7 L, Globulin 3.9 09/05/22 16:55: Lactic Acid 1.3 09/05/22 16:55: Blood Type B POSITIVE, Antibody Screen NEGATIVE 09/05/22 16:55: Troponin I High Sens 25 09/05/22 16:55: Crossmatch See Detail 09/05/22 17:00: Urine Color Straw, Urine Clarity Clear, Urine pH 6.0, Ur Specific [place] 1.010, Urine Protein 15 H, Urine Glucose (UA) Normal, Urine Ketones Negative, Urine Occult Blood 150 H, Urine Nitrite Negative, Urine Bilirubin Negative, Urine Urobilinogen Normal, Ur Leukocyte Esterase Negative, Urine RBC 0 SEEN, Urine WBC 0 SEEN, Ur Squamous Epith Cells 0 SEEN, Urine Bacteria 0 SEEN, Urine Mucus 0 SEEN 09/06/22 05:08: WBC 11.5 H, RBC 2.12 L, Hgb 6.6 L, Hct 20.6 L, MCV 97.2 D, MCH 31.1, MCHC 32.0, RDW Std Deviation 48.9 H, RDW Coeff of Lee 14.1, Plt Count 313, MPV 8.3, Immature Gran % (Auto) 1.000 H, Neut % (Auto) 80.4 H, Lymph % (Auto) 11.9 L, [place] % (Auto) 6.3, Eos % (Auto) 0.3, Baso % (Auto) 0.1, Absolute Neuts (auto) 9.3 H, Absolute Lymphs (auto) 1.37, Nucleated RBC % 0 09/06/22 05:08: Sodium 136, Potassium 3.5, Chloride 107, Carbon Dioxide 22.0, Anion Gap 7, BUN 32 H, Creatinine 1.85 H, Estim Creat Clear Calc 24.37, Est GFR (MDRD) Af Amer 34 L, Est GFR (MDRD) Non-Af 28 L, BUN/Creatinine Ratio 17.3, Glucose 75, Calcium 6.8 L 09/06/22 05:08: Total Bilirubin 0.10 L, Direct Bilirubin < 0.05, AST 39 H, ALT 26, Alkaline Phosphatase 60, Total Protein 3.7 L, Albumin 1.1 L, Globulin 2.6 09/06/22 14:45: WBC 11.0, RBC 3.14 L, Hgb 9.9 L, Hct 30.5 L, MCV 97.1, MCH 31.5, MCHC 32.5, RDW Std Deviation 50.2 H, RDW Coeff of Ele 14.2, Plt Count 334, MPV 7.8, Immature Gran % (Auto) 1.000 H, Neut % (Auto) 83.4 H, Lymph % (Auto) 8.3 L, [place] % (Auto) 6.8, Eos % (Auto) 0.4, Baso % (Auto) 0.1, Absolute Neuts (auto) 9.2 H, Absolute Lymphs (auto) 0.92, Nucleated RBC % 0 09/06/22 14:45: Sodium 139, Potassium 3.2 L, Chloride 108 H, Carbon Dioxide 24.0, Anion Gap 7, BUN 28 H, Creatinine 1.96 H, Estim Creat Clear Calc 23.00, Est GFR (MDRD) Af Amer 32 L, Est GFR (MDRD) Non-Af 27 L, BUN/Creatinine Ratio 14.3, Glucose 141 H, Calcium 7.1 L, Total Bilirubin 0.10 L, AST 38 H, ALT 33, Alkaline Phosphatase 72, Total Protein 4.6 L, Albumin 1.3 L, Globulin 3.3, Albumin/Globulin Ratio 0.4 L Radiology Impression Venous Doppler Study 09/05/22 15:12 Interpretation Summary No evidence for acute deep venous thrombosis[left] upper extremity with patent and compressible cephalic and basilic veins. Ordering Physician: Jung Yeboah Referring Physician: Jay Kincaid Performed By: Debi Da Silva Pooja ??? Chest X-Ray 09/05/22 17:00 IMPRESSION: Right sided pneumonia. Right pleural effusion. Electronically Signed: Osvaldo Michael MD at 17:27 EDT Reading Location ID and State: [facility] / [place] , Service support , Charges/Coding Visit Charges Inpatient E&M: 15436 Init Hosp L2
[2022-09-06 16:15] LABS: Ferritin 195 ng/mL (8-252); Iron 14 ug/dL (50-170); Iron Binding Capacity,Total 120 ug/dL (250-450); PERCENT IRON SATURATION 11.7 % (15.0-55.0)
[2022-09-06] MEDS: Ensure Clear 120 ML Liquid PO ×2 (17:11→21:16)
[2022-09-06] MEDS: Potassium Chloride Oral Tablet 20 MEQ 40 MEQ PO (17:17)
[2022-09-06] MEDS: MELATONIN 10 MG TABLET PO (21:15)
[2022-09-07] VITALS (18 sets, daily range): BP systolic 91–138; BP diastolic 56–95; PULSE 70–100; RESP 10–18; TEMP 36.6–37.2; O2SAT 92–98
[2022-09-07] MEDS: 0.9% Normal Saline 1,000 ML 75 ML IV (01:51)
[2022-09-07] MEDS: Methimazole 5 MG Tablet PO (05:25)
[2022-09-07] MEDS: 0.9% Saline Lock 10 ML Syringe IV ×2 (05:25→21:58)
[2022-09-07 05:34] LABS: Absolute Neutrophil Count 6.4 X10^3/uL (2.0-7.7); Basophil# 0.02 X10^3/uL; Basophil% 0.2 % (0-1); Eosinophil# 0.11 X10^3/uL; Eosinophils% 1.2 % (0-5); Hematocrit 30.6 % (37-47); Lymphocyte % 19.6 % (19-41); Mean Corp Hgb Conc 32.7 g/dL (32-36); Mean Corpuscular Hgb 31.9 pg (27.0-32.0); Mean Corpuscular Volume 97.8 fL (81-99); Monocyte# 0.72 X10^3/uL; Monocyte% 7.8 % (0-10); NRBC Flagged by Analyzer 0 % (0-5); Neutrophil # 6.41 X10^3/uL (2.7-7.7); Neutrophil % 69.8 % (47-70); Platelet Count 346 K/mm3 (150-450); RBC Distribution Width CV 14.6 % (11.6-14.6); RBC Distribution Width SD 51.1 fl (35.1-43.9); Red Blood Count 3.13 M/mm3 (4.2-5.4); White Blood Count 9.2 K/mm3 (4.4-11.0)
[2022-09-07 05:49] LABS: ALB/GLOB Ratio 0.4 RATIO (0.9-2.4); AST(SGOT) 31 U/L (15-37); Alanine Aminotransfer ALT/SGPT 33 U/L (13-56); Albumin, Serum 1.3 g/dL (3.2-5.0); Alkaline Phosphatase 69 U/L (45-117); Anion Gap 6 (5-15); BUN 25 mg/dL (7-18); BUN/Creat Ratio 14.6 RATIO (10-20); Calcium,Total 6.9 mg/dL (8.5-10.1); Chloride 110 mmol/L (98-107); Creatinine, Serum 1.71 mg/dL (0.55-1.02); EST Glomerular Filtration Rate 31 mL/min (>60); Est Glom Filt Rate - Afr Amer 38 mL/min (>60); Estimated Creatinine Clearance 26.37 ml/min; Globulin 3.5 g/dL (2.2-4.2); Glucose 84 mg/dL (74-106); Potassium 4.3 mmol/L (3.5-5.1); Protein, Total 4.8 g/dL (6.4-8.2); Sodium Level 139 mmol/L (136-145)
--- NOTE | 2022-09-07 07:11 | PN.HOSP_ITS ---
Subjective Subjective Follow-up on CVA anemia/probable GI bleed/hypotension: Patient was seen and examined.? No acute events overnight. Patient's blood pressure remained stable. No melena or hematochezia seen. Objective Data Objective Data Vital Signs: Vital Signs Temp Pulse Resp BP Pulse Ox O2 Del Method 98.7 F 76 15 117/73 97 Room Air 09/07/22 04:00 09/07/22 06:00 09/07/22 06:00 09/07/22 06:00 09/07/22 06:00 09/07/22 06:00 Oxygen Delivery Method Room Air Weight: 71.2 kg Body Mass Index (BMI) 24.6 Intake & Output: Intake and Output for Last 24 Hours 09/05/22 09/06/22 09/07/22 23:59 23:59 23:59 Intake Total 2477 / 2477 3479.5 / 3679.5 1440 / 1440 Output Total 2400 / 3200 1700 / 1700 Balance 2477 / 2477 1079.5 / 479.5 -260 / -260 Lab / Micro Data Result Diagrams: 09/07/22 05:20 09/07/22 05:20 Labs: Laboratory Results - last 24 hr 09/05/22 16:55: Crossmatch See Detail 09/06/22 05:08: Total Bilirubin 0.10 L, Direct Bilirubin < 0.05, AST 39 H, ALT 2 6, Alkaline Phosphatase 60, Total Protein 3.7 L, Albumin 1.1 L, Globulin 2.6 09/06/22 05:08: Iron 14 L, TIBC 120 L, Iron Saturation 11.7 L, Ferritin 195 09/06/22 14:45: WBC 11.0, RBC 3.14 L, Hgb 9.9 L, Hct 30.5 L, MCV 97.1, MCH 31.5, MCHC 32.5, RDW Std Deviation 50.2 H, RDW Coeff of Lee 14.2, Plt Count 334, MPV 7.8, Immature Gran % (Auto) 1.000 H, Neut % (Auto) 83.4 H, Lymph % (Auto) 8.3 L, [place] % (Auto) 6.8, Eos % (Auto) 0.4, Baso % (Auto) 0.1, Absolute Neuts (auto) 9.2 H, Absolute Lymphs (auto) 0.92, Nucleated RBC % 0 09/06/22 14:45: Sodium 139, Potassium 3.2 L, Chloride 108 H, Carbon Dioxide 24.0, Anion Gap 7, BUN 28 H, Creatinine 1.96 H, Estim Creat Clear Calc 23.00, Est GFR (MDRD) Af Amer 32 L, Est GFR (MDRD) Non-Af 27 L, BUN/Creatinine Ratio 14.3, Glucose 141 H, Calcium 7.1 L, Total Bilirubin 0.10 L, AST 38 H, ALT 33, Alkaline Phosphatase 72, Total Protein 4.6 L, Albumin 1.3 L, Globulin 3.3, Albumin/Globulin Ratio 0.4 L 09/07/22 05:20: WBC 9.2, RBC 3.13 L, Hgb 10.0 L, Hct 30.6 L, MCV 97.8, MCH 31.9, MCHC 32.7, RDW Std Deviation 51.1 H, RDW Coeff of Lee 14.6, Plt Count 346, MPV 8.0, Immature Gran % (Auto) 1.400 H, Neut % (Auto) 69.8, Lymph % (Auto) 19.6, [place] % (Auto) 7.8, Eos % (Auto) 1.2, Baso % (Auto) 0.2, Absolute Neuts (auto) 6.4, Absolute Lymphs (auto) 1.80, Nucleated RBC % 0 09/07/22 05:20: Sodium 139, Potassium 4.3, Chloride 110 H, Carbon Dioxide 23.0, Anion Gap 6, BUN 25 H, Creatinine 1.71 H, Estim Creat Clear Calc 26.37, Est GFR (MDRD) Af Amer 38 L, Est GFR (MDRD) Non-Af 31 L, BUN/Creatinine Ratio 14.6, Glucose 84, Calcium 6.9 L, Total Bilirubin 0.10 L, AST 31, ALT 33, Alkaline Phosphatase 69, Total Protein 4.8 L, Albumin 1.3 L, Globulin 3.5, Albumin/Globulin Ratio 0.4 L Micro: Microbiology 09/06/22 14:45 Urine, Random Legionella Antigen - Final 09/06/22 14:45 Urine, Random Streptococcus pneumoniae Antigen (M - Final Physical Exam Narrative Physical exam: General: Alert, Oriented x3, Cooperative, appears very pale, not jaundiced HEENT: Atraumatic Oral: Moist Mucosa Neck: Supple Lungs: Clear to auscultation Cardiovascular: HS I+II, regular, no murmurs Abdomen: Bowel Sounds Present, Soft, Non Tender Extremities: No edema Skin: No rashes, No breakdown Neurological: Grossly intact Psych/Mental Status: Appropriate Assessment & Plan Assessment/Plan (1) Pneumonia: (2) CITLALY (acute kidney injury): PLAN: Plan Summary: She was found to be [id number] units 3 times [id number] female with past medical history of bipolar disorder, who presented to the emergency room with generalized weakness. Patient had recent outpatient stool occult blood positive and there was a plan for EGD tomorrow, Thursday. [facility] concerns of a pneumonia. She was found to have a drop in her hemoglobin and was also relatively hypotensive. She was transferred to the ICU 110/79/22 but has been stable 1. Acute hypotension likely secondary to #2, noted on the Medsurg floor Patient blood pressure remained stable throughout his stay in ICU; has been relatively soft Currently not on her home losartan; continue to monitor monitor blood pressure Will transfer out of ICU 2. Acute severe anemia likely secondary to acute GI bleed/hemodilution Status post 1 unit packed RBC on 09/06/22 Hemoglobin is 10.0 Will trend H&H 3. Probable acute GI bleed, reported stool for occult blood was positive in the outpatient Stool for occult blood is pending, on IV PPI twice daily GI consulted; EGD planned for tomorrow, n.p.o. after midnight 4. Acute pneumonia, likely aspiration versus community-acquired; patient is not hypoxic Admitting chest x-ray showed right-sided infiltrate with pleural effusion Blood cultures are pending Continue on IV Unasyn(day 2 of antibiotics) 5. 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 6. CITLALY on CKD stage III/IV, improved Creatinine today is 1.71, down from 2.57 on admission Continue to monitor 7. Primary hyperparathyroidism, continue on cinacalcet 8. Hyperthyroidism, continue on methimazole 9. Bipolar disorder/dementia, continue aripiprazole, lorazepam, memantine 10. DVT prophylaxis with SCDs Charges/Coding Visit Charges Inpatient E&M: 71325 Subs Hosp L2
[2022-09-07] MEDS: Polyethylene Glycol 3350 17 GM PACKET PO (08:19)
[2022-09-07] MEDS: LORazepam 1 MG Tablet 2 MG PO ×4 (08:19→21:54)
[2022-09-07] MEDS: ARIPiprazole 10 MG Tablet 20 MG PO (08:19)
[2022-09-07] MEDS: Memantine Hydrochloride 10 MG Tablet PO (08:20)
[2022-09-07] MEDS: Ferrous Sulfate 325 MG Tablet PO ×2 (08:20→18:03)
[2022-09-07] MEDS: Tolterodine Tartrate 2 MG CAP.SA PO (08:20)
[2022-09-07] MEDS: Ensure Clear 120 ML Liquid PO ×4 (08:21→21:54)
[2022-09-07] MEDS: traMADol 50 MG Tablet PO ×2 (08:23→21:54)
[2022-09-07] MEDS: Cinacalcet HCl 30 MG Tablet PO (08:30)
--- NOTE | 2022-09-07 13:06 | NURSING ---
transferred with belongings per chair with belongings, present
[2022-09-07] MEDS: MELATONIN 10 MG TABLET PO (21:54)
[2022-09-08] VITALS (11 sets, daily range): BP systolic 98–144; BP diastolic 64–86; PULSE 93–108; RESP 14–18; TEMP 36.6–37.3; O2SAT 91–96; BMI 26.0
--- NOTE | 2022-09-08 | ESO_PTH ---
PATIENT: SIMONA HERNANDEZ LOC: MS3 U#:[id number] AGE/SX: 72/F ROOM: [facility] [place]: Dr. Augustus Gray MD : 1950 BED: 1 DIS: 09/11/2022 SPEC #: [id number] RECD: 09/08/22 13:05 STATUS: NATALYA REQ #: [id number] HOLLIE: 09/08/22 00:[address]: Francis Verma DEPT: SURGICAL PATHOLOGY RECD BY: Elvis Krishnamurthy ENTERED: 09/08/22 13:06 SP TYPE: ESOPH BX OTHR DR: MD Dr. Augustus Linn MD Dr. Nicholas F Kotsonis, MD Richard Dennis Tompkins, OPTOMETRIC COORDINATOR-C Tissues: Esophagus, NOS Procedures: Special Stain Group I Surgery Specimen Level IV GMS Stain (control) Comments: @ Ordering doctor for SUIV edited from to @ domenico MELGAR at 09/08/22 1313 @ Submitting doctor edited from to @ by TALIA at 09/08/22 1313 HEADER OPERATION: EGD ([facility] [place]) PRE-OP DIAGNOSIS: Anemia, GI bleed TISSUE SUBMITTED: Proximal esophagus biopsy MICROSCOPIC DIAGNOSIS Proximal esophagus, biopsy: Mild acute inflammation. Organisms consistent with Jessi species. See comment. AM:quentin 09/09/2022 COMMENT GMS stain with matched control was used in the evaluation of this case. MICROSCOPIC DESCRIPTION Slides are reviewed. GROSS DESCRIPTION Received in fixative is one container labeled with the patient's name and designated proximal esophagus biopsy. The specimen consists of multiple irregular fragments of light regalado soft tissue that in aggregate measure 0.6 x 0.3 x 0.1 cm. The specimen is totally submitted in one cassette. / AM:quentin 09/08/2022 TC:2 CPT: 47664, 54010
[2022-09-08 06:59] LABS: Absolute Neutrophil Count 7.7 X10^3/uL (2.0-7.7); Basophil# 0.03 X10^3/uL; Basophil% 0.3 % (0-1); Eosinophil# 0.18 X10^3/uL; Eosinophils% 1.7 % (0-5); Hematocrit 29.6 % (37-47); Hemoglobin 9.3 g/dL (12.0-15.0); Lymphocyte % 16.3 % (19-41); Mean Corp Hgb Conc 31.4 g/dL (32-36); Mean Corpuscular Hgb 31.4 pg (27.0-32.0); Mean Platelet Vol. 8.1 fl (6.2-12.0); Monocyte# 0.74 X10^3/uL; Monocyte% 7.1 % (0-10); NRBC Flagged by Analyzer 0 % (0-5); Neutrophil # 7.65 X10^3/uL (2.7-7.7); Neutrophil % 73.2 % (47-70); Platelet Count 391 K/mm3 (150-450); RBC Distribution Width CV 14.6 % (11.6-14.6); RBC Distribution Width SD 52.2 fl (35.1-43.9); Red Blood Count 2.96 M/mm3 (4.2-5.4); White Blood Count 10.5 K/mm3 (4.4-11.0)
[2022-09-08 07:01] LABS: International Normalized Ratio 1.1; Prothrombin Time (Protime)PT. 13.8 SECONDS (11.7-14.9)
[2022-09-08 07:02] LABS: Partial Thromboplast Time 27.7 Seconds (24.1-36.2)
[2022-09-08 07:18] LABS: ALB/GLOB Ratio 0.4 RATIO (0.9-2.4); AST(SGOT) 18 U/L (15-37); Alanine Aminotransfer ALT/SGPT 27 U/L (13-56); Albumin, Serum 1.3 g/dL (3.2-5.0); Alkaline Phosphatase 67 U/L (45-117); Anion Gap 7 (5-15); BUN 26 mg/dL (7-18); Calcium,Total 7.4 mg/dL (8.5-10.1); Chloride 115 mmol/L (98-107); Creatinine, Serum 1.62 mg/dL (0.55-1.02); EST Glomerular Filtration Rate 33 mL/min (>60); Est Glom Filt Rate - Afr Amer 40 mL/min (>60); Estimated Creatinine Clearance 27.83 ml/min; Globulin 3.4 g/dL (2.2-4.2); Glucose 89 mg/dL (74-106); Potassium 4.2 mmol/L (3.5-5.1); Protein, Total 4.7 g/dL (6.4-8.2); Sodium Level 143 mmol/L (136-145)
--- NOTE | 2022-09-08 07:26 | PCM.PN.HOSP ---
Objective Data Objective Data Vital Signs: Vital Signs Temp Pulse Resp BP Pulse Ox O2 Del Method 98.7 F 98 16 112/81 H 94 Room Air 09/08/22 02:33 09/08/22 02:33 09/08/22 02:33 09/08/22 02:33 09/08/22 02:33 09/08/22 02:33 Oxygen Delivery Method Room Air Weight: 71 kg Body Mass Index (BMI) 24.6 Intake & Output: Intake and Output for Last 24 Hours 09/06/22 09/07/22 09/08/22 23:59 23:59 23:59 Intake Total 3479.5 / 3679.5 3318.00 / 3318.00 Output Total 2400 / 3200 2500 / 3300 1800 / 1800 Balance 1079.5 / 479.5 818.00 / 18.00 -1800 / -1800 Lab / Micro Data Result Diagrams: 09/08/22 05:30 09/08/22 05:30 Labs: Laboratory Results - last 24 hr 09/08/22 05:30: WBC 10.5, RBC 2.96 L, Hgb 9.3 L, Hct 29.6 L, MCV 100.0 H, MCH 31.4, MCHC 31.4 L, RDW Std Deviation 52.2 H, RDW Coeff of Lee 14.6, Plt Count 391, MPV 8.1, Immature Gran % (Auto) 1.400 H, Neut % (Auto) 73.2 H, Lymph % (Auto) 16.3 L, [place] % (Auto) 7.1, Eos % (Auto) 1.7, Baso % (Auto) 0.3, Absolute Neuts (auto) 7.7, Absolute Lymphs (auto) 1.70, Nucleated RBC % 0 09/08/22 05:30: Sodium 143, Potassium 4.2, Chloride 115 H, Carbon Dioxide 21.0, Anion Gap 7, BUN 26 H, Creatinine 1.62 H, Estim Creat Clear Calc 27.83, Est GFR (MDRD) Af Amer 40 L, Est GFR (MDRD) Non-Af 33 L, BUN/Creatinine Ratio 16.0, Glucose 89, Calcium 7.4 L, Total Bilirubin 0.20, AST 18, ALT 27, Alkaline Phosphatase 67, Total Protein 4.7 L, Albumin 1.3 L, Globulin 3.4, Albumin/Globulin Ratio 0.4 L 09/08/22 05:30: PT 13.8, INR 1.1, APTT 27.7 Micro: Microbiology 09/05/22 17:00 Urine Catheter - Catheter Urine Culture - Preliminary Culture exhibits no growth. 09/06/22 14:45 Urine, Random Legionella Antigen - Final 09/06/22 14:45 Urine, Random Streptococcus pneumoniae Antigen (M - Final Physical Exam Narrative GENERAL: cooperative HEENT: Atraumatic; normocephalic EYES; Anicteric, Normal Conjunctiva NECK; supple, normal thyroid, RESPIRATORY: Diminished to auscultation CARDIOVASCULAR: Regular S1 S2, GI: soft, normoactive bowel sounds, : No Renal angle tenderness; EXTREMITIES: No edema, no clubbing, MUSCULOSKELETAL: no muscle wasting NEURO: Awake; no lateralizing signs. SKIN: No Rash PSYCH; Flat affect Assessment & Plan Assessment/Plan (1) Pneumonia: (2) CITLALY (acute kidney injury): PLAN: Plan Patient is a 72-year-old lady admitted with progressive generalized weakness. Patient was found to be hypotensive on admission. Imaging studies demonstrated pneumonia possibly aspirated pneumonia admitted to regular nursing floor for further management 1. Acute acute hypotension ? Resolved 2. Anemia with macrocytosis ? Consult placed to GI plans for patient to undergo endoscopic evaluation on 09/08/2022 3. Pneumonia ? Community-acquired pneumonia versus aspiration pneumonia patient placed on Unasyn cultures sent results pending 4. Hyponatremia ? Suspected to be secondary to hypovolemic hyponatremia patient sodium levels normalized after IV fluid 5. CITLALY -superimposed on chronic kidney disease stage III kidney function did improve with rehydration 6. Bipolar disorder ? Discontinue patient psychotropic medications 7. Primary hyperparathyroidism ? Patient is on Cinacalcet did continue 8. DVT prophylaxis ? Bilateral SCDs avoided the use of chemoprophylaxis in view of suspected GI bleed Charges/Coding Visit Charges Inpatient E&M: 59352 Subs Hosp L2
[2022-09-08 08:35] LABS: Hemoglobin A1c 5.2 % (3.8-5.6)
[2022-09-08] MEDS: Lactated Ringers 1,000 ML 15 ML IV (08:57)
[2022-09-08] MEDS: 0.9% Saline Lock 10 ML Syringe IV ×2 (08:57→21:08)
[2022-09-08 11:49] LABS: Pathologist Review Reviewed
--- NOTE | 2022-09-08 11:58 | OP.EGD_ITS ---
Patient Name: Fior Escamilla Procedure Date: 09/08/2022 11:28 AM Date of : 1950 Age: 72 Procedure: Upper GI endoscopy Indications: Epigastric abdominal pain, Suspected esophageal reflux, Failure to respond to medical treatment, Melena Providers: Francis Verma DO Medicines: Monitored Anesthesia Care Patient Profile: This is a 72 year old female. Refer to note in patient chart for documentation of history and physical. Patient has symptoms of acute cough, acute regurgitation and acute vomiting. Complications: No immediate complications. Procedure: Pre-Anesthesia Assessment: - Prior to the procedure, a History and Physical was performed, and patient medications and allergies were reviewed. The risks and benefits of the procedure and the sedation options and risks were discussed with the patient. All questions were answered and informed consent was obtained. Patient identification and proposed procedure were verified by the physician in the pre-procedure area. Mental Status Examination: alert and oriented. Airway Examination: normal oropharyngeal airway and neck mobility. Respiratory Examination: clear to auscultation. CV Examination: normal. Prophylactic Antibiotics: The patient does not require prophylactic antibiotics. Prior Anticoagulants: The patient has taken no previous anticoagulant or antiplatelet agents. ASA Grade Assessment: II - A patient with mild systemic disease. After reviewing the risks and benefits, the patient was deemed in satisfactory condition to undergo the procedure. The anesthesia plan was to use monitored anesthesia care (MAC). Immediately prior to administration of medications, the patient was re-assessed for adequacy to receive sedatives. The heart rate, respiratory rate, oxygen saturations, blood pressure, adequacy of pulmonary ventilation, and response to care were monitored throughout the procedure. The physical status of the patient was re-assessed after the procedure. After obtaining informed consent, the endoscope was passed under direct vision. Throughout the procedure, the patient's blood pressure, pulse, and oxygen saturations were monitored continuously. The gastroscope was introduced through the mouth, and advanced to the second part of duodenum. The upper GI endoscopy was accomplished without difficulty. The patient tolerated the procedure well. Scope In: 11:42:40 AM Scope Out: 11:47:13 AM Total Procedure Duration Time 0 hours 4 minutes 33 seconds Findings: LA Grade D (one or more mucosal breaks involving at least 75% of esophageal circumference) esophagitis with bleeding was found 30 to 39 cm from the incisors. Coagulation for hemostasis using bipolar probe was successful. Estimated blood loss was minimal. Patchy, white plaques were found in the upper third of the esophagus. Biopsies were taken with a cold forceps for histology. Verification of patient identification for the specimen was done. Estimated blood loss was minimal. A small hiatal hernia was present. No other significant abnormalities were identified in a careful examination of the stomach. The second portion of the duodenum was normal. Impression: - LA Grade D erosive esophagitis. Treated with bipolar cautery. - Esophageal plaques were found, consistent with candidiasis. Biopsied. - Small hiatal hernia. - Normal second portion of the duodenum. Recommendation: - Protonix 40 mg p.o. 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 - Continue present medications. - Diflucan (fluconazole) 100 mg PO daily for 2 weeks. Procedure Code(s): --- Professional --- 89030, 59, Esophagogastroduodenoscopy, flexible, transoral; with control of bleeding, any method 18683, 51, Esophagogastroduodenoscopy, flexible, transoral; with biopsy, single or multiple CPT copyright 2017 [employer]. All rights reserved. The codes documented in this report are preliminary and upon body care manager review may be revised to meet current compliance requirements. Francis Verma DO 09/08/2022 11:57:25 AM This report has been signed electronically. Number of Addenda: 0 Note Initiated On: 09/08/2022 11:28 AM
--- NOTE | 2022-09-08 11:58 | OP.CCLET_ITS ---
09/08/2022 Jay Kincaid Re : Upper GI endoscopy procedure for Fior Escamilla Dear Codi This procedure was performed on Thursday, September 08, 2022. My impressions and recommendations are as follows: Impressions : - LA Grade D erosive esophagitis. Treated with bipolar cautery. - Esophageal plaques were found, consistent with candidiasis. Biopsied. - Small hiatal hernia. - Normal second portion of the duodenum. Recommendations : - Protonix 40 mg p.o. 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 - Continue present medications. - Diflucan (fluconazole) 100 mg PO daily for 2 weeks. My findings are described in the full procedure note, which is enclosed. If I can be of further assistance, please feel free to contact me at . Sincerely, Francis Verma, 09/08/2022 11:57:25 AM This report has been signed electronically.
[2022-09-08] MEDS: Ferrous Sulfate 325 MG Tablet PO ×2 (12:43→16:58)
[2022-09-08] MEDS: Cinacalcet HCl 30 MG Tablet PO (12:43)
[2022-09-08] MEDS: ARIPiprazole 10 MG Tablet 20 MG PO (12:43)
[2022-09-08] MEDS: Tolterodine Tartrate 2 MG CAP.SA PO (12:43)
[2022-09-08] MEDS: Polyethylene Glycol 3350 17 GM PACKET PO (12:44)
[2022-09-08] MEDS: Memantine Hydrochloride 10 MG Tablet PO (12:44)
[2022-09-08] MEDS: traMADol 50 MG Tablet PO ×2 (12:47→21:18)
[2022-09-08] MEDS: LORazepam 1 MG Tablet 2 MG PO ×3 (12:47→21:07)
[2022-09-08] MEDS: Ensure Clear 120 ML Liquid PO ×2 (12:49→21:07)
--- NOTE | 2022-09-08 15:50 | CASEMGMT ---
ALEXEY MARTIN in to pt room to discuss dc planning, pt asked RN VERONICA to come back another time. Asked if she would like this RN VERONICA to speak with her and she asked not to do this. ALEXEY MARTIN to check back with pt.
[2022-09-08] MEDS: MELATONIN 10 MG TABLET PO (21:07)
[2022-09-09 04:12] VITALS: BP 129/86; PULSE 97; RESP 18; TEMP 37.1; O2SAT 93
[2022-09-09 05:53] LABS: Absolute Lymphocyte Count 1.51 X10^3/uL (0.83-4.51); Basophil# 0.04 X10^3/uL; Basophil% 0.4 % (0-1); Eosinophil# 0.13 X10^3/uL; Eosinophils% 1.4 % (0-5); Hematocrit 28.7 % (37-47); Hemoglobin 9.2 g/dL (12.0-15.0); Lymphocyte # 1.51 X10^3/ul (0.83-4.51); Lymphocyte % 15.9 % (19-41); Mean Corp Hgb Conc 32.1 g/dL (32-36); Mean Corpuscular Hgb 31.6 pg (27.0-32.0); Mean Corpuscular Volume 98.6 fL (81-99); Mean Platelet Vol. 7.8 fl (6.2-12.0); Monocyte# 0.71 X10^3/uL; Monocyte% 7.5 % (0-10); NRBC Flagged by Analyzer 0 % (0-5); Neutrophil % 73.7 % (47-70); Platelet Count 355 K/mm3 (150-450); RBC Distribution Width CV 14.6 % (11.6-14.6); RBC Distribution Width SD 52.7 fl (35.1-43.9); Red Blood Count 2.91 M/mm3 (4.2-5.4); White Blood Count 9.5 K/mm3 (4.4-11.0)
[2022-09-09 06:34] LABS: ALB/GLOB Ratio 0.4 RATIO (0.9-2.4); AST(SGOT) 13 U/L (15-37); Alanine Aminotransfer ALT/SGPT 25 U/L (13-56); Albumin, Serum 1.4 g/dL (3.2-5.0); Alkaline Phosphatase 69 U/L (45-117); Anion Gap 5 (5-15); BUN 21 mg/dL (7-18); BUN/Creat Ratio 13.5 RATIO (10-20); Chloride 122 mmol/L (98-107); Creatinine, Serum 1.56 mg/dL (0.55-1.02); EST Glomerular Filtration Rate 35 mL/min (>60); Est Glom Filt Rate - Afr Amer 42 mL/min (>60); Globulin 3.3 g/dL (2.2-4.2); Glucose 102 mg/dL (74-106); Potassium 4.7 mmol/L (3.5-5.1); Protein, Total 4.7 g/dL (6.4-8.2); Sodium Level 149 mmol/L (136-145)
--- NOTE | 2022-09-09 07:30 | PN.HOSP_ITS ---
Subjective Subjective Patient underwent EGD today prior results and recommendations as below. She is scheduled to undergo gastric emptying test Impressions : - LA Grade D erosive esophagitis.? Treated with bipolar cautery. - Esophageal plaques were found, consistent with candidiasis.? Biopsied. - Small hiatal hernia. - Normal second portion of the duodenum. Recommendations : - Protonix 40 mg p.o. twice daily - Gastric emptying study before starting on empiric therapy for likely ?gastroparesis and small bowel dysmotility secondary to psychiatric medicines - Upper GI with small bowel follow-through to look for signs of superior ?mesenteric artery syndrome Objective Data Objective Data Vital Signs: Vital Signs Temp Pulse Resp BP Pulse Ox O2 Del Method O2 Flow Rate 98.7 F 97 18 129/86 H 93 Room Air 2 09/09/22 04:12 09/09/22 04:12 09/09/22 04:12 09/09/22 04:12 09/09/22 04:12 09/09/22 06:00 09/08/22 11:52 Oxygen Flow Rate (L/min) 2 Oxygen Delivery Method Room Air Weight: 71 kg Body Mass Index (BMI) 26.0 Intake & Output: Intake and Output for Last 24 Hours 09/07/22 09/08/22 09/09/22 23:59 23:59 23:59 Intake Total 3318.00 / 3318.00 893.5 / 893.5 120 / 120 Output Total 2500 / 3300 3000 / 3000 800 / 800 Balance 818.00 / 18.00 -2106.5 / -2106.5 -680 / -680 Lab / Micro Data Result Diagrams: 09/09/22 04:58 09/09/22 04:58 Labs: Laboratory Results - last 24 hr 09/05/22 13:11: Diff Path Review Reviewed 09/08/22 05:30: Hemoglobin A1c 5.2 09/09/22 04:58: WBC 9.5, RBC 2.91 L, Hgb 9.2 L, Hct 28.7 L, MCV 98.6, MCH 31.6, MCHC 32.1, RDW Std Deviation 52.7 H, RDW Coeff of Lee 14.6, Plt Count 355, MPV 7.8, Immature Gran % (Auto) 1.100 H, Neut % (Auto) 73.7 H, Lymph % (Auto) 15.9 L , [place] % (Auto) 7.5, Eos % (Auto) 1.4, Baso % (Auto) 0.4, Absolute Neuts (auto) 7.0, Absolute Lymphs (auto) 1.51, Nucleated RBC % 0 09/09/22 04:58: Sodium 149 H, Potassium 4.7, Chloride 122 H, Carbon Dioxide 22.0, Anion Gap 5, BUN 21 H, Creatinine 1.56 H, Estim Creat Clear Calc 28.90, Est GFR (MDRD) Af Amer 42 L, Est GFR (MDRD) Non-Af 35 L, BUN/Creatinine Ratio 13.5, Glucose 102, Calcium 8.0 L, Total Bilirubin 0.20, AST 13 L, ALT 25, Alkaline Phosphatase 69, Total Protein 4.7 L, Albumin 1.4 L, Globulin 3.3, Albumin/Globulin Ratio 0.4 L Micro: Microbiology 09/05/22 17:00 Urine Catheter - Catheter Urine Culture - Final Culture exhibits no growth. 09/06/22 14:45 Urine, Random Legionella Antigen - Final 09/06/22 14:45 Urine, Random Streptococcus pneumoniae Antigen (M - Final Physical Exam Narrative GENERAL: cooperative HEENT: Atraumatic; normocephalic EYES; Anicteric, Normal Conjunctiva NECK; supple, normal thyroid, RESPIRATORY: Diminished to auscultation CARDIOVASCULAR: Regular S1 S2, GI: soft, normoactive bowel sounds, : No Renal angle tenderness; EXTREMITIES: No edema, no clubbing, MUSCULOSKELETAL: no muscle wasting NEURO: Awake; no lateralizing signs. SKIN: No Rash PSYCH; Flat affect Assessment & Plan Assessment/Plan (1) Pneumonia: (2) CITLALY (acute kidney injury): PLAN: Plan Patient is a 72-year-old lady admitted with progressive generalized weakness. Patient was found to be hypotensive on admission. Imaging studies demonstrated pneumonia possibly aspirated pneumonia admitted to regular nursing floor for further management 1. Acute acute hypotension ? Resolved 2. Anemia with macrocytosis ? Consult placed to GI plans for patient to undergo endoscopic evaluation on 09/08/2022 -09/09/2022; Patient underwent EGD today prior results and recommendations as below. She is scheduled to undergo gastric emptying test Impressions : - LA Grade D erosive esophagitis.? Treated with bipolar cautery. - Esophageal plaques were found, consistent with candidiasis.? Biopsied. - Small hiatal hernia. - Normal second portion of the duodenum. Recommendations : - Protonix 40 mg p.o. twice daily - Gastric emptying study before starting on empiric therapy for likely ?gastroparesis and small bowel dysmotility secondary to psychiatric medicines - Upper GI with small bowel follow-through to look for signs of superior ?mesenteric artery syndrome 3. Pneumonia ? Community-acquired pneumonia versus aspiration pneumonia patient placed on Unasyn cultures sent results pending 4. Hyponatremia ? Suspected to be secondary to hypovolemic hyponatremia patient sodium levels normalized after IV fluid 5. CITLALY -superimposed on chronic kidney disease stage III kidney function did improve with rehydration 6. Bipolar disorder ? Discontinue patient psychotropic medications 7. Primary hyperparathyroidism ? Patient is on Cinacalcet did continue 8. DVT prophylaxis ? Bilateral SCDs avoided the use of chemoprophylaxis in view of suspected GI bleed Charges/Coding Visit Charges Inpatient E&M: 41763 Subs Hosp L2
--- NOTE | 2022-09-09 08:00 | NM_ITS ---
CLINICAL: 72-year-old female with history of clinical gastroparesis. SEMI-SOLID PHASE 99m Tc SULFUR COLLOID GASTRIC EMPTYING STUDY COMPARISON: None available FINDINGS: The patient was administered 1.0 mCi of 99m Tc sulfur colloid mixed with oatmeal and consumed per os. Image acquisitions in the anterior-posterior projections were obtained for 60 minutes. There is prompt visualization of the stomach. There is no gastroesophageal reflux identified. First order kinetics are maintained throughout the duration of the acquisitions. The T ? emptying was extrapolated to be 73 minutes, (Normal: 12-56 minutes). NM/Gastric Emptying Study IMPRESSION: 1. ABNORMAL 99m Tc sulfur colloid semi-solid phase (oatmeal) gastric emptying imaging examination. A. There is delayed semi-solid phase gastric emptying compared to normal controls with maintained first order kinetics throughout all components of the examination. (Trey et al, J Nucl Med Tech 38: 186, 2010). Electronically Signed: Jay Vega, at 10:28 EDT ,
[2022-09-09 10:00] VITALS: BP 152/90; PULSE 92; RESP 17; TEMP 37.2; O2SAT 92
[2022-09-09] MEDS: 0.9% Saline Lock 10 ML Syringe IV ×2 (10:12→22:16)
[2022-09-09 10:28] VITALS: O2SAT 94
[2022-09-09] MEDS: ARIPiprazole 10 MG Tablet 20 MG PO (10:55)
[2022-09-09] MEDS: LORazepam 1 MG Tablet 2 MG PO ×4 (10:56→22:22)
[2022-09-09] MEDS: Memantine Hydrochloride 10 MG Tablet PO (10:56)
[2022-09-09] MEDS: Tolterodine Tartrate 2 MG CAP.SA PO (10:56)
[2022-09-09] MEDS: Ferrous Sulfate 325 MG Tablet PO ×2 (10:56→18:09)
[2022-09-09] MEDS: Polyethylene Glycol 3350 17 GM PACKET PO (10:57)
[2022-09-09] MEDS: Ensure Clear 120 ML Liquid PO (11:02)
[2022-09-09] MEDS: traMADol 50 MG Tablet PO ×2 (11:02→22:22)
[2022-09-09] MEDS: Ensure Plus High Protein 120 ML LIQUID PO ×2 (14:03→18:09)
[2022-09-09 14:06] VITALS: BP 152/92; PULSE 110; RESP 19; TEMP 36.3; O2SAT 96
--- NOTE | 2022-09-09 16:00 | CASEMGMT ---
ALEXEY MARTIN into pt room to discuss dc planning, pt states she wants to go home without any services. She is agreeable to having ALEXEY MARTIN call her to discuss. TC to pt , he states he wants pt to come home and would consider HHC. He will be in this evening and will discuss with patient. He is aware currently that pt is declining this. Patient was provided a list of HHC providers including quality and resource use data and consistent with the patient?s preferred geographic region, medical needs, and insurance network were provided from the [facility] Guide. and pt to discuss, ALEXEY MARTIN to check back tomorrow.
--- NOTE | 2022-09-09 16:13 | PN_ITS ---
Subjective Subjective Patient underwent upper endoscopy yesterday and was discovered to have multiple bleeding lesions in the esophagus with severe erosive esophagitis and possible long segment Mora's esophagus. She underwent gastric emptying to study today. It was reported as showing moderate gastroparesis. Objective Data Objective Data Vital Signs: Vital Signs Temp Pulse Resp BP Pulse Ox O2 Del Method O2 Flow Rate 97.4 F L 110 H 19 H 152/92 H 96 Room Air 2 09/09/22 14:06 09/09/22 14:06 09/09/22 14:06 09/09/22 14:06 09/09/22 14:06 09/09/22 14:06 09/08/22 11:52 Oxygen Flow Rate (L/min) 2 Oxygen Delivery Method Room Air Weight: 158 lb 3.2 oz Body Mass Index (BMI) 26.0 Intake & Output: Intake and Output for Last 24 Hours 09/07/22 09/08/22 09/09/22 23:59 23:59 23:59 Intake Total 3318.00 / 3318.00 893.5 / 893.5 342 / 342 Output Total 2500 / 3300 3000 / 3000 800 / 800 Balance 818.00 / 18.00 -2106.5 / -2106.5 -458 / -458 Lab / Micro Data Result Diagrams: 09/09/22 04:58 09/09/22 04:58 Labs: Laboratory Results - last 24 hr 09/09/22 04:58: WBC 9.5, RBC 2.91 L, Hgb 9.2 L, Hct 28.7 L, MCV 98.6, MCH 31.6, MCHC 32.1, RDW Std Deviation 52.7 H, RDW Coeff of Lee 14.6, Plt Count 355, MPV 7.8, Immature Gran % (Auto) 1.100 H, Neut % (Auto) 73.7 H, Lymph % (Auto) 15.9 L , [place] % (Auto) 7.5, Eos % (Auto) 1.4, Baso % (Auto) 0.4, Absolute Neuts (auto) 7.0, Absolute Lymphs (auto) 1.51, Nucleated RBC % 0 09/09/22 04:58: Sodium 149 H, Potassium 4.7, Chloride 122 H, Carbon Dioxide 22.0, Anion Gap 5, BUN 21 H, Creatinine 1.56 H, Estim Creat Clear Calc 28.90, Est GFR (MDRD) Af Amer 42 L, Est GFR (MDRD) Non-Af 35 L, BUN/Creatinine Ratio 13.5, Glucose 102, Calcium 8.0 L, Total Bilirubin 0.20, AST 13 L, ALT 25, Alkaline Phosphatase 69, Total Protein 4.7 L, Albumin 1.4 L, Globulin 3.3, Albumin/Globulin Ratio 0.4 L Micro: Microbiology 09/05/22 17:25 Blood Culture (Wb) - Anticubital Left Blood Culture - Preliminary No growth in 48 hours. 09/05/22 16:55 Blood Culture (Wb) - Anticubital Left Blood Culture - Preliminary No growth in 48 hours. 09/05/22 17:00 Urine Catheter - Catheter Urine Culture - Final Culture exhibits no growth. 09/06/22 14:45 Urine, Random Legionella Antigen - Final 09/06/22 14:45 Urine, Random Streptococcus pneumoniae Antigen (M - Final Radiography Diagnostic Testing: Radiology Impression Gastric Emptying Nuclear Medicine 09/09/22 08:00 IMPRESSION: 1. ABNORMAL 99m Tc sulfur colloid semi-solid phase (oatmeal) gastric emptying imaging examination. A. There is delayed semi-solid phase gastric emptying compared to normal controls with maintained first order kinetics throughout all components of the examination. (Trey et al, J Nucl Med Tech 38: 186, 2010). Electronically Signed: Jay Vega, at 10:28 EDT Reading Location ID and State: [facility] / [place] Tel , Service support , Physical Exam Narrative GENERAL: cooperative HEENT: Atraumatic; normocephalic EYES; Anicteric, Normal Conjunctiva NECK; supple, normal thyroid, RESPIRATORY: Diminished to auscultation CARDIOVASCULAR: Regular S1 S2, GI: soft, normoactive bowel sounds, : No Renal angle tenderness; EXTREMITIES: No edema, no clubbing, MUSCULOSKELETAL: no muscle wasting NEURO: Awake; no lateralizing signs. SKIN: No Rash PSYCH; Flat affect Assessment & Plan Assessment/Plan (1) GI bleed: PLAN: Upper GI bleed secondary to severe erosive esophagitis with telangiectasias in the esophagus causing upper GI bleed. There is also signs of chronic reflux disease in the form of possible Mora's esophagus. She will need a repeat endoscopy in the future in order to biopsy that as an outpatient. Recommend PPI therapy 40 mg p.o. twice daily (2) Gastroparesis: PLAN: Nausea vomiting likely secondary to medication induced gastroparesis. I will start her on azithromycin 250 mg twice a day. She should take this for 2 weeks. I will also put her on 5 mg of Reglan and 3 times a day for 3 weeks. Risk and benefits of metoclopramide therapy were expressed to the patient. She should also be on an aggressive bowel regimen as proper evacuation of the bowel leads to less small bowel ileus formation increase small bowel motility and indirectly can help empty to stomach via gravity. Would recommend to consult nutrition for recommendations regarding gastroparesis. Most diets for gastroparesis are low in fiber and low in fat. Charges/Coding Visit Charges Inpatient E&M: 68391 Subs Hosp L2
[2022-09-09 20:00] VITALS: BP 123/74; PULSE 100; RESP 18; TEMP 37.2; O2SAT 91
[2022-09-09] MEDS: MELATONIN 10 MG TABLET PO (22:18)
[2022-09-10] VITALS (7 sets, daily range): BP systolic 132–159; BP diastolic 80–92; PULSE 89–108; RESP 18; TEMP 36.6–37.6; O2SAT 92–97
--- NOTE | 2022-09-10 03:36 | NURSING ---
pt very sweaty - temp 99.[address] Shelby notified & order received for prn tylenol.
[2022-09-10] MEDS: Acetaminophen 325 MG Tablet 650 MG PO (03:44)
[2022-09-10 06:09] LABS: Absolute Lymphocyte Count 1.12 X10^3/uL (0.83-4.51); Absolute Neutrophil Count 7.1 X10^3/uL (2.0-7.7); Basophil# 0.02 X10^3/uL; Basophil% 0.2 % (0-1); Eosinophil# 0.16 X10^3/uL; Eosinophils% 1.7 % (0-5); Hemoglobin 8.8 g/dL (12.0-15.0); Lymphocyte # 1.12 X10^3/ul (0.83-4.51); Lymphocyte % 12.1 % (19-41); Mean Corp Hgb Conc 31.4 g/dL (32-36); Mean Corpuscular Hgb 31.7 pg (27.0-32.0); Mean Corpuscular Volume 100.7 fL (81-99); Mean Platelet Vol. 7.9 fl (6.2-12.0); Monocyte# 0.82 X10^3/uL; Monocyte% 8.8 % (0-10); NRBC Flagged by Analyzer 0 % (0-5); Neutrophil # 7.09 X10^3/uL (2.7-7.7); Neutrophil % 76.3 % (47-70); Platelet Count 310 K/mm3 (150-450); RBC Distribution Width CV 14.6 % (11.6-14.6); RBC Distribution Width SD 53.5 fl (35.1-43.9); Red Blood Count 2.78 M/mm3 (4.2-5.4); White Blood Count 9.3 K/mm3 (4.4-11.0)
[2022-09-10] MEDS: Methimazole 5 MG Tablet PO (06:16)
[2022-09-10 06:38] LABS: ALB/GLOB Ratio 0.4 RATIO (0.9-2.4); AST(SGOT) 11 U/L (15-37); Alanine Aminotransfer ALT/SGPT 22 U/L (13-56); Albumin, Serum 1.4 g/dL (3.2-5.0); Alkaline Phosphatase 65 U/L (45-117); Anion Gap 4 (5-15); BUN 25 mg/dL (7-18); BUN/Creat Ratio 14.5 RATIO (10-20); Calcium,Total 8.2 mg/dL (8.5-10.1); Chloride 124 mmol/L (98-107); Creatinine, Serum 1.73 mg/dL (0.55-1.02); EST Glomerular Filtration Rate 31 mL/min (>60); Est Glom Filt Rate - Afr Amer 37 mL/min (>60); Estimated Creatinine Clearance 26.06 ml/min; Globulin 3.3 g/dL (2.2-4.2); Glucose 116 mg/dL (74-106); Potassium 4.9 mmol/L (3.5-5.1); Protein, Total 4.7 g/dL (6.4-8.2); Sodium Level 150 mmol/L (136-145)
--- NOTE | 2022-09-10 07:24 | PCM.PN.HOSP ---
Subjective Subjective Patient seen per nursing staff had a relatively uneventful night sodium level was up to 150. Sodium level on admission was 124 Objective Data Objective Data Vital Signs: Vital Signs Temp Pulse Resp BP Pulse Ox O2 Del Method O2 Flow Rate 98.7 F 108 H 18 159/85 H 92 Room Air 2 09/10/22 06:15 09/10/22 03:29 09/10/22 03:29 09/10/22 03:29 09/10/22 03:29 09/10/22 06:00 09/08/22 11:52 Oxygen Flow Rate (L/min) 2 Oxygen Delivery Method Room Air Weight: 70.023 kg Body Mass Index (BMI) 26.0 Intake & Output: Intake and Output for Last 24 Hours 09/08/22 09/09/22 09/10/22 23:59 23:59 23:59 Intake Total 893.5 / 893.5 572.5 / 812.5 852 / 852 Output Total 3000 / 3000 1600 / 1600 Balance -2106.5 / -2106.5 -1027.5 / -787.5 852 / 852 Lab / Micro Data Result Diagrams: 09/10/22 05:50 09/10/22 05:50 Labs: Laboratory Results - last 24 hr 09/10/22 05:50: WBC 9.3, RBC 2.78 L, Hgb 8.8 L, Hct 28.0 L, MCV 100.7 H, MCH 31.7, MCHC 31.4 L, RDW Std Deviation 53.5 H, RDW Coeff of Lee 14.6, Plt Count 310, MPV 7.9, Immature Gran % (Auto) 0.900, Neut % (Auto) 76.3 H, Lymph % (Auto) 12.1 L, [place] % (Auto) 8.8, Eos % (Auto) 1.7, Baso % (Auto) 0.2, Absolute Neuts (auto) 7.1, Absolute Lymphs (auto) 1.12, Nucleated RBC % 0 09/10/22 05:50: Sodium 150 H, Potassium 4.9, Chloride 124 H, Carbon Dioxide 22.0, Anion Gap 4 L, BUN 25 H, Creatinine 1.73 H, Estim Creat Clear Calc 26.06, Est GFR (MDRD) Af Amer 37 L, Est GFR (MDRD) Non-Af 31 L, BUN/Creatinine Ratio 14.5, Glucose 116 H, Calcium 8.2 L, Total Bilirubin 0.10 L, AST 11 L, ALT 22, Alkaline Phosphatase 65, Total Protein 4.7 L, Albumin 1.4 L, Globulin 3.3, Albumin/Globulin Ratio 0.4 L Micro: Microbiology 09/05/22 17:25 Blood Culture (Wb) - Anticubital Left Blood Culture - Preliminary No growth in 48 hours. 09/05/22 16:55 Blood Culture (Wb) - Anticubital Left Blood Culture - Preliminary No growth in 48 hours. 09/05/22 17:00 Urine Catheter - Catheter Urine Culture - Final Culture exhibits no growth. 09/06/22 14:45 Urine, Random Legionella Antigen - Final 09/06/22 14:45 Urine, Random Streptococcus pneumoniae Antigen (M - Final Radiography Diagnostic Testing: Radiology Impression Gastric Emptying Nuclear Medicine 09/09/22 08:00 IMPRESSION: 1. ABNORMAL 99m Tc sulfur colloid semi-solid phase (oatmeal) gastric emptying imaging examination. A. There is delayed semi-solid phase gastric emptying compared to normal controls with maintained first order kinetics throughout all components of the examination. (Trey et al, J Nucl Med Tech 38: 186, 2010). Electronically Signed: Jay Vega, at 10:28 EDT , Physical Exam Narrative GENERAL: cooperative HEENT: Atraumatic; normocephalic EYES; Anicteric, Normal Conjunctiva NECK; supple, normal thyroid, RESPIRATORY: Diminished to auscultation CARDIOVASCULAR: Regular S1 S2, GI: soft, normoactive bowel sounds, : No Renal angle tenderness; EXTREMITIES: No edema, no clubbing, MUSCULOSKELETAL: no muscle wasting NEURO: Awake; no lateralizing signs. SKIN: No Rash PSYCH; Flat affect Assessment & Plan Assessment/Plan (1) Pneumonia: (2) CITLALY (acute kidney injury): PLAN: Plan Patient is a 72-year-old lady admitted with progressive generalized weakness. Patient was found to be hypotensive on admission. Imaging studies demonstrated pneumonia possibly aspirated pneumonia admitted to regular nursing floor for further management 1. Acute acute hypotension ? Resolved 2. Anemia with macrocytosis ? Consult placed to GI plans for patient to undergo endoscopic evaluation on 09/08/2022 -09/09/2022; Patient underwent EGD today prior results and recommendations as below. She is scheduled to undergo gastric emptying test Impressions : - LA Grade D erosive esophagitis.? Treated with bipolar cautery. - Esophageal plaques were found, consistent with candidiasis.? Biopsied. - Small hiatal hernia. - Normal second portion of the duodenum. Recommendations : - Protonix 40 mg p.o. twice daily - Gastric emptying study before starting on empiric therapy for likely ?gastroparesis and small bowel dysmotility secondary to psychiatric medicines - Upper GI with small bowel follow-through to look for signs of superior ?mesenteric artery syndrome 3. Pneumonia ? Community-acquired pneumonia versus aspiration pneumonia patient placed on Unasyn cultures sent results pending 4. Hyponatremia ? Suspected to be secondary to hypovolemic hyponatremia patient sodium levels normalized after IV fluid ? 09/10/2022; hyponatremia resolved 5. Hypernatremia ? Secondary to fluid deficit patient started on D5 half-normal saline with subsequent monitoring of electrolytes ordered 6. CITLALY -superimposed on chronic kidney disease stage III kidney function did improve with rehydration 7. Bipolar disorder ? Discontinue patient psychotropic medications 8. Primary hyperparathyroidism ? Patient is on Cinacalcet did continue 9. DVT prophylaxis ? Bilateral SCDs avoided the use of chemoprophylaxis in view of suspected GI bleed Charges/Coding Visit Charges Inpatient E&M: 02533 Subs Hosp L2
[2022-09-10] MEDS: Ferrous Sulfate 325 MG Tablet PO ×2 (08:34→17:53)
[2022-09-10] MEDS: 0.9% Saline Lock 10 ML Syringe IV (08:34)
[2022-09-10] MEDS: Cinacalcet HCl 30 MG Tablet PO (08:34)
[2022-09-10] MEDS: Ensure Plus High Protein 120 ML LIQUID PO ×3 (08:34→17:53)
--- NOTE | 2022-09-10 09:10 | CASEMGMT ---
Addendum entered by Danielle Gaming 09/10/22 13:27: Received signed FWW rx, referral sent via careport to [facility] and emailed liaison as well. Addendum entered by Danielle Gaming 09/10/22 11:27: ALEXEY MARTIN in to pt room, pt and [facility] and be in contact with them. Pt was provided a local in network list of DME companies, [facility] Addendum entered by Danielle Gaming 09/10/22 11:22: Spoke with therapist, pt and completed session. Pt needs FWW. Received tc from [facility] that they can accept pt for SOC on Thursday. Addendum entered by Danielle Gaming 09/10/22 10:23: TC to Cindy at [facility], referral made pending therapy session today. She will review referral. Original Note: ALEXEY MARTIN in to pt room, pt at bedside. Pt and agree that they do not want to go to SNF. They have chosen 1. [facility] 2. [facility] 3. [facility]. Pt states he saw the nurses get pt up to [facility] yesterday and he is able to provide this assistance at home. He is aware HHC will be short term and intermittent approx 2-3x/wk. He states they have gone through this before. Discussed him participating in the therapy session today, he is agreeable. Spoke with therapy regarding this as well. ALEXEY MARTIN to check back after therapy session.
[2022-09-10] MEDS: traMADol 50 MG Tablet PO ×2 (10:29→22:47)
[2022-09-10] MEDS: Polyethylene Glycol 3350 17 GM PACKET PO (10:29)
[2022-09-10] MEDS: LORazepam 1 MG Tablet 2 MG PO ×4 (10:29→22:48)
[2022-09-10] MEDS: Tolterodine Tartrate 2 MG CAP.SA PO (10:30)
[2022-09-10] MEDS: Memantine Hydrochloride 10 MG Tablet PO (10:30)
[2022-09-10] MEDS: ARIPiprazole 10 MG Tablet 20 MG PO (10:30)
[2022-09-10 15:27] LABS: Anion Gap 5 (5-15); BUN 25 mg/dL (7-18); BUN/Creat Ratio 15.9 RATIO (10-20); Calcium,Total 7.9 mg/dL (8.5-10.1); Chloride 115 mmol/L (98-107); Creatinine, Serum 1.57 mg/dL (0.55-1.02); EST Glomerular Filtration Rate 34 mL/min (>60); Est Glom Filt Rate - Afr Amer 42 mL/min (>60); Estimated Creatinine Clearance 28.72 ml/min; Glucose 109 mg/dL (74-106); Potassium 4.2 mmol/L (3.5-5.1); Sodium Level 142 mmol/L (136-145)
--- NOTE | 2022-09-10 15:31 | PCM.DC.SUM ---
Providers Date of Admission: 09/05/22 Date of Discharge: 09/10/22 Primary Care Physician: Jay Kincaid, HEALTHCARE ADMINISTRATION INTERN-C Consultations 09/06/22 10:21 Consult: Gastroenterology Routine Consulting Provider: [facility] Reason for Consult: GI bleed, severe anemia EMERGENT Consult: No MD Notified: Yes Date Notified: 09/06/22 Time Notified: 10:21 Method of Notification: Text Reason For Visit: ASPIRATION VS CA PNEUMONIA, DEBILITY, ANEMIA Diagnosis Discharge Diagnosis (1) Pneumonia: Status: Acute Code(s): J18.9 - Pneumonia, unspecified organism (2) CITLALY (acute kidney injury): Status: Acute Code(s): N17.9 - Acute kidney failure, unspecified Plan Patient is a 72-year-old lady admitted with progressive generalized weakness. Patient was found to be hypotensive on admission. Imaging studies demonstrated pneumonia possibly aspirated pneumonia admitted to regular nursing floor for further management 1. Acute acute hypotension ? Resolved 2. Anemia with macrocytosis ? Consult placed to GI plans for patient to undergo endoscopic evaluation on 09/08/2022 -09/09/2022; Patient underwent EGD today prior results and recommendations as below. She is scheduled to undergo gastric emptying test Impressions : - LA Grade D erosive esophagitis.? Treated with bipolar cautery. - Esophageal plaques were found, consistent with candidiasis.? Biopsied. - Small hiatal hernia. - Normal second portion of the duodenum. Recommendations : - Protonix 40 mg p.o. twice daily - Gastric emptying study before starting on empiric therapy for likely ?gastroparesis and small bowel dysmotility secondary to psychiatric medicines - Upper GI with small bowel follow-through to look for signs of superior ?mesenteric artery syndrome 3. Pneumonia ? Community-acquired pneumonia versus aspiration pneumonia patient placed on Unasyn cultures sent results pending ? Patient was discharged on Augmentin 4. Hyponatremia ? Suspected to be secondary to hypovolemic hyponatremia patient sodium levels normalized after IV fluid ? 09/10/2022; hyponatremia resolved 5. Hypernatremia ? Secondary to fluid deficit patient started on D5 half-normal saline with subsequent monitoring of electrolytes ordered 6. CITLALY -superimposed on chronic kidney disease stage III kidney function did improve with rehydration 7. Bipolar disorder ? Discontinue patient psychotropic medications 8. Primary hyperparathyroidism ? Patient is on Cinacalcet did continue 9. DVT prophylaxis ? Bilateral SCDs avoided the use of chemoprophylaxis in view of suspected GI bleed Medications at Discharge Home Medications cinacalcet 30 mg tablet 30 mg PO SUMOWEFR 10/04/20 methimazole 5 mg tablet 5 mg PO SUMOWEFR 10/04/20 memantine 10 mg tablet 10 mg PO DAILY 01/03/21 cholecalciferol (vitamin D3) 50 mcg (2,000 unit) capsule 2,000 unit PO DAILY SUPPLEMENT 01/15/21 ferrous sulfate 325 mg (65 mg iron) tablet 325 mg PO BID SUPPLEMENT 01/15/21 tramadol 50 mg tablet 50 mg PO BID 01/21/22 aripiprazole 20 mg tablet 20 mg PO DAILY 09/05/22 denosumab 60 mg/mL subcutaneous syringe (Prolia) 60 mg subcut UD 09/05/22 lorazepam 2 mg tablet 2 mg PO 4XD anxiety 09/05/22 losartan 25 mg tablet 25 mg PO DAILY 09/05/22 melatonin 10 mg capsule 10 mg PO QHS 09/05/22 ondansetron 8 mg disintegrating tablet 8 mg PO Q6H PRN NAUSEAU 09/05/22 oxybutynin chloride 15 mg tablet,extended release 24 hr 15 mg PO DAILY 09/05/22 polyethylene glycol 3350 17 gram/dose oral powder (Miralax) 17 g PO DAILY 09/05/22 amoxicillin 500 mg-potassium clavulanate 125 mg tablet (Augmentin) 1 tab PO BID #14 tabs 09/10/22 food supplemt, lactose-reduced 0.08 gram-1.5 kcal/mL oral liquid (Ensure Plus High Protein) 120 ml PO TIDCM #120 BOTTLES 09/10/22 pantoprazole 40 mg tablet,delayed release (Protonix) 40 mg PO DAILY #90 tabs 09/10/22 Hospital Course Summary of Care Provided Minutes Spent on Discharge: 35 Physical Exam Narrative GENERAL: cooperative HEENT: Atraumatic; normocephalic EYES; Anicteric, Normal Conjunctiva NECK; supple, normal thyroid, RESPIRATORY: Diminished to auscultation CARDIOVASCULAR: Regular S1 S2, GI: soft, normoactive bowel sounds, : No Renal angle tenderness; EXTREMITIES: No edema, no clubbing, MUSCULOSKELETAL: no muscle wasting NEURO: Awake; no lateralizing signs. SKIN: No Rash PSYCH; Flat affect Weight / BMI Weight Weight: 70.023 kg Body Mass Index (BMI) 26.0 ABG / Lab / Microbiology Data Result Diagrams: 09/10/22 05:50 09/10/22 14:51 Laboratory: Laboratory Results - last 24 hr 09/10/22 05:50: WBC 9.3, RBC 2.78 L, Hgb 8.8 L, Hct 28.0 L, MCV 100.7 H, MCH 31.7, MCHC 31.4 L, RDW Std Deviation 53.5 H, RDW Coeff of Lee 14.6, Plt Count 310, MPV 7.9, Immature Gran % (Auto) 0.900, Neut % (Auto) 76.3 H, Lymph % (Auto) 12.1 L, [place] % (Auto) 8.8, Eos % (Auto) 1.7, Baso % (Auto) 0.2, Absolute Neuts (auto) 7.1, Absolute Lymphs (auto) 1.12, Nucleated RBC % 0 09/10/22 05:50: Sodium 150 H, Potassium 4.9, Chloride 124 H, Carbon Dioxide 22.0, Anion Gap 4 L, BUN 25 H, Creatinine 1.73 H, Estim Creat Clear Calc 26.06, Est GFR (MDRD) Af Amer 37 L, Est GFR (MDRD) Non-Af 31 L, BUN/Creatinine Ratio 14.5, Glucose 116 H, Calcium 8.2 L, Total Bilirubin 0.10 L, AST 11 L, ALT 22, Alkaline Phosphatase 65, Total Protein 4.7 L, Albumin 1.4 L, Globulin 3.3, Albumin/Globulin Ratio 0.4 L 09/10/22 14:51: Sodium 142, Potassium 4.2, Chloride 115 H, Carbon Dioxide 22.0, Anion Gap 5, BUN 25 H, Creatinine 1.57 H, Estim Creat Clear Calc 28.72, Est GFR (MDRD) Af Amer 42 L, Est GFR (MDRD) Non-Af 34 L, BUN/Creatinine Ratio 15.9, Glucose 109 H, Calcium 7.9 L Microbiology: Microbiology 09/05/22 17:25 Blood Culture (Wb) - Anticubital Left Blood Culture - Preliminary No growth in 48 hours. 09/05/22 16:55 Blood Culture (Wb) - Anticubital Left Blood Culture - Preliminary No growth in 48 hours. 09/05/22 17:00 Urine Catheter - Catheter Urine Culture - Final Culture exhibits no growth. 09/06/22 14:45 Urine, Random Legionella Antigen - Final 09/06/22 14:45 Urine, Random Streptococcus pneumoniae Antigen (M - Final D/C Instructions Discharge Diet: No restrictions Discharge Activity: Return to Normal Activity Call your doctor if you observe: Fever of 101 or Higher, Shortness of breath, Fainting spells and Chest pain Meaningful Use Info Meaningful Use Diagnoses (Choose all that apply): None applicable Discharge Plan Admission Admit Date/Time: 09/05/22 18:46 Attending Provider: Augustus Gray Primary Care Provider: Jay Kincaid HEALTHCARE ADMINISTRATION INTERN Consulting Providers: Jeyson Thomas Ama Discharge Orders/Prescriptions Prescriptions: New Ensure Plus High Protein 0.08 gram-1.5 kcal/mL Liquid 120 ml PO TIDCM Qty: 120 0RF pantoprazole [Protonix] 40 mg tablet,delayed release (DR/EC) 40 mg PO DAILY Qty: 90 0RF amoxicillin-pot clavulanate [Augmentin] 500-125 mg tablet 1 tab PO BID Qty: 14 0RF Continued tramadol 50 mg tablet 50 mg PO BID methimazole 5 MG tablet 5 mg PO SUMOWEFR cinacalcet 30 MG tablet 30 mg PO SUMOWEFR memantine 10 MG tablet 10 mg PO DAILY ferrous sulfate 325 MG tablet 325 mg PO BID cholecalciferol (vitamin D3) 2,000 UNIT capsule 2,000 unit PO DAILY oxybutynin chloride 15 mg tablet extended release 24hr 15 mg PO DAILY Label Comments: take 1 tablet by mouth every morning ondansetron 8 mg tablet,disintegrating 8 mg PO Q6H PRN (Reason: NAUSEAU) Label Comments: dissolve 1 tablet ON TONGUE every 6 hours if needed losartan 25 mg tablet 25 mg PO DAILY Label Comments: take 1 tablet by mouth once daily polyethylene glycol 3350 [Miralax] 17 gram/dose Powder 17 g PO DAILY aripiprazole 20 mg tablet 20 mg PO DAILY Label Comments: take 1 tablet by mouth once daily Prolia 60 mg/mL Syringe 60 mg SUBCUT UD melatonin 10 mg Capsule 10 mg PO QHS lorazepam 2 mg tablet 2 mg PO 4XD Label Comments: take 1 tablet by mouth four times a day if needed for anxiety Referrals / Follow Up: Jay Kincaid HEALTHCARE ADMINISTRATION INTERN, HEALTHCARE ADMINISTRATION INTERN-C [Primary Care Provider] - Within 1 Week Disposition Disposition (needs filled in before D/C Order can be placed): Home Health Service Charges/Coding Visit Charges Inpatient E&M: 60685 Disch Hosp
[2022-09-10] MEDS: MELATONIN 10 MG TABLET PO (22:47)
[2022-09-11 04:20] VITALS: BP 127/76; PULSE 105; RESP 18; TEMP 37.9; O2SAT 94
[2022-09-11] MEDS: Acetaminophen 325 MG Tablet 650 MG PO (04:24)
[2022-09-11 06:15] VITALS: TEMP 37.4
[2022-09-11 09:20] VITALS: BP 127/80; PULSE 99; RESP 18; TEMP 36.6; O2SAT 94
[2022-09-11] MEDS: LORazepam 1 MG Tablet 2 MG PO (09:33)
[2022-09-11] MEDS: traMADol 50 MG Tablet PO (09:33)
[2022-09-11] MEDS: Ensure Plus High Protein 120 ML LIQUID PO (09:33)
[2022-09-11] MEDS: Memantine Hydrochloride 10 MG Tablet PO (09:35)
[2022-09-11] MEDS: Polyethylene Glycol 3350 17 GM PACKET PO (09:35)
[2022-09-11] MEDS: Ferrous Sulfate 325 MG Tablet PO (09:35)
[2022-09-11] MEDS: Tolterodine Tartrate 2 MG CAP.SA PO (09:35)
[2022-09-11] MEDS: ARIPiprazole 10 MG Tablet 20 MG PO (09:35)
--- NOTE | 2022-09-11 09:44 | CASEMGMT ---
Addendum entered by Danielle Gaming 09/11/22 11:07: Updated Cindy at [facility] that pt did not dc yesterday and will dc today. Original Note: ALEXEY CM in to pt room with hospitalist and pt and pt . Pt had medical questions and received answers from hospitalist. He is aware [facility] will see pt tomorrow and denies need for SNF when hospitalist asked. Pt to dc home today.
[2022-09-11 16:11] LABS: Gastrin, Serum 207 pg/mL (0-115)
== END 2022-09-11 12:20 | disposition home health service (06) | DRG 380 ==
LOC: ED 18:09 → MS3 20:24 → ICU 09-06 09:49 → MS3 09-08 07:08 → ICU 09-08 10:32
PROVIDERS: Anesthesiology; Internal Medicine; Internal Medicine Gastroenterology; Admitting Provider Family Medicine; Emergency Provider Student in an Organized Health Care Education/Training Program; PCP Nurse Practitioner Family; Visit Provider Internal Medicine
PROC: 0DJ08ZZ Inspection of Upper Intestinal Tract, Via Natural or Artificial Opening Endoscopic (ICD-10-PCS; CPT 43235; principal; 2022-09-08 11:25)
DX: K22.11 Ulcer of esophagus with bleeding (principal); R60.0 Localized edema; J69.0 Pneumonitis due to inhalation of food and vomit; E86.0 Dehydration; B37.81 Candidal esophagitis; E87.0 Hyperosmolality and hypernatremia; D62 Acute posthemorrhagic anemia; E87.1 Hypo-osmolality and hyponatremia; N17.9 Acute kidney failure, unspecified; F05 Delirium due to known physiological condition; N25.1 Nephrogenic diabetes insipidus; F03.90 Unspecified dementia, unspecified severity, without behavioral disturbance, psychotic disturbance, mood disturbance, and anxiety; N18.32 Chronic kidney disease, stage 3b; F31.9 Bipolar disorder, unspecified; E21.0 Primary hyperparathyroidism; I95.9 Hypotension, unspecified; T43.595A Adverse effect of other antipsychotics and neuroleptics, initial encounter; K31.84 Gastroparesis; I12.9 Hypertensive chronic kidney disease with stage 1 through stage 4 chronic kidney disease, or unspecified chronic kidney disease; D50.9 Iron deficiency anemia, unspecified; E05.90 Thyrotoxicosis, unspecified without thyrotoxic crisis or storm; K44.9 Diaphragmatic hernia without obstruction or gangrene; Z87.891 Personal history of nicotine dependence
CPT/HCPCS: 36415; 71045; 78264; 80048; 80053; 80076; 81001; 82728; 82941; 83036; 83540; 83550; 83605; 84484; 85025; 85045; 85610; 85730; 86850; 86900; 86901; 86920; 87040; 87086; 87449; 88305; 88312; 92507; 92526; 92610; 93005; 93970; 93971; 97110; 97116; 97161; 97166; 97530; 97535; 97802; 97803; 99284; A9541; J7030; J7040; J7050; J7120; P9016; A4216; J0295; J2405

== ENCOUNTER → 2022-09-05 | Outpatient (CLI) | payer MEDICARE, SELFPAY ==
--- NOTE | 2022-09-05 13:24 | VDLE_ITS ---
Reason For Study: EDEMA RIGHT LEFT GSV is normal. GSV is normal. CFV is compressible, spontaneous, phasic, CFV is compressible, spontaneous, phasic, competent and demonstrates normal competent, and demonstrates normal augmentation. augmentation. FV is compressible, spontaneous, phasic, FV is compressible, spontaneous, phasic, competent and demonstrates normal competent and demonstrates normal augmentation. augmentation. POP V is compressible, spontaneous, phasic, POP V is compressible, spontaneous, phasic, competent and demonstrates normal competent and demonstrates normal augmentation. augmentation. T/P Trunk is compressible. T/P Trunk is compressible. PTV is compressible. PTV is compressible. RT PerV is compressible. LT PerV is compressible. Procedure This is a venous duplex using B-mode, color flow and spectral Doppler. Exam performed in department. The study was technically difficult. A preliminary report was called and/or faxed to Dr. Abrams @ 2:30 pm. VL/Venous Duplex US - Michel Extrem Interpretation Summary Deep veins of the lower extremities are bilaterally patent and compressible seg mentally. There is no evidence of deep vein thrombosis on either side. Valvular competence appears in tact within the proximal deep venous systems bilaterally. The great saphenous veins appear bila terally patent and compressible segmentally. Ordering Physician: Ayse Abrams Referring Physician: Jay Kincaid Performed By: Catrina Mcintyre, JOSELINCS, RVT
[2022-09-05 13:32] LABS: Platelet Count 471 K/mm3 (150-450); Reticulocyte Count 3.62 % (0.5-1.5)
[2022-09-05 14:08] LABS: ALB/GLOB Ratio 0.4 RATIO (0.9-2.4); AST(SGOT) 47 U/L (15-37); Alanine Aminotransfer ALT/SGPT 32 U/L (13-56); Albumin, Serum 1.7 g/dL (3.2-5.0); Alkaline Phosphatase 85 U/L (45-117); Anion Gap 13 (5-15); BUN 39 mg/dL (7-18); BUN/Creat Ratio 15.2 RATIO (10-20); Calcium,Total 8.4 mg/dL (8.5-10.1); Chloride 88 mmol/L (98-107); Creatinine, Serum 2.57 mg/dL (0.55-1.02); EST Glomerular Filtration Rate 19 mL/min (>60); Est Glom Filt Rate - Afr Amer 24 mL/min (>60); Ferritin 274 ng/mL (8-252); Globulin 3.9 g/dL (2.2-4.2); Glucose 158 mg/dL (74-106); Iron 20 ug/dL (50-170); Iron Binding Capacity,Total 168 ug/dL (250-450); Potassium 3.7 mmol/L (3.5-5.1); Protein, Total 5.6 g/dL (6.4-8.2); Sodium Level 124 mmol/L (136-145)
== END | disposition home or self-care (01) ==
LOC: CVS 13:09
PROVIDERS: PCP Nurse Practitioner Family; Referring Provider Internal Medicine Nephrology; Visit Provider Internal Medicine Nephrology
DX: R60.0 Localized edema (principal); N18.30 Chronic kidney disease, stage 3 unspecified; D64.9 Anemia, unspecified
CPT/HCPCS: 36415; 80053; 82728; 83540; 83550; 85045; 93970

== ENCOUNTER → 2022-09-15 | Outpatient (CLI) | payer MEDICARE, SELFPAY ==
[2022-09-15 12:43] LABS: Hemoglobin 8.6 g/dL (12.0-15.0); Mean Corp Hgb Conc 30.7 g/dL (32-36); Mean Corpuscular Hgb 30.5 pg (27.0-32.0); Mean Corpuscular Volume 99.3 fL (81-99); Mean Platelet Vol. 8.5 fl (6.2-12.0); Platelet Count 420 K/mm3 (150-450); RBC Distribution Width CV 14.5 % (11.6-14.6); RBC Distribution Width SD 51.7 fl (35.1-43.9); RET-HE 31.7 pg (30-35); Red Blood Count 2.82 M/mm3 (4.2-5.4); Reticulocyte Count 2.87 % (0.5-1.5); White Blood Count 7.8 K/mm3 (4.4-11.0)
[2022-09-15 13:29] LABS: ALB/GLOB Ratio 0.5 RATIO (0.9-2.4); AST(SGOT) 16 U/L (15-37); Alanine Aminotransfer ALT/SGPT 27 U/L (13-56); Alkaline Phosphatase 84 U/L (45-117); Anion Gap 7 (5-15); BUN 24 mg/dL (7-18); BUN/Creat Ratio 14.6 RATIO (10-20); Calcium,Total 9.5 mg/dL (8.5-10.1); Chloride 110 mmol/L (98-107); Creatinine, Serum 1.64 mg/dL (0.55-1.02); EST Glomerular Filtration Rate 33 mL/min (>60); Est Glom Filt Rate - Afr Amer 40 mL/min (>60); Ferritin 189 ng/mL (8-252); Globulin 3.8 g/dL (2.2-4.2); Glucose 92 mg/dL (74-106); Iron 31 ug/dL (50-170); Iron Binding Capacity,Total 235 ug/dL (250-450); Potassium 4.2 mmol/L (3.5-5.1); Protein, Total 5.8 g/dL (6.4-8.2); Sodium Level 142 mmol/L (136-145)
== END | disposition home or self-care (01) ==
PROVIDERS: PCP Nurse Practitioner Family; Referring Provider Nurse Practitioner Family; Visit Provider Nurse Practitioner Family
DX: N18.30 Chronic kidney disease, stage 3 unspecified (principal); D64.9 Anemia, unspecified
CPT/HCPCS: 80053; 82728; 83540; 83550; 85027; 85045

== ENCOUNTER → 2022-09-30 | Outpatient (CLI) | payer MEDICARE, SELFPAY ==
--- NOTE | 2022-09-30 12:01 | RAD_ITS ---
EXAM: XR CHEST, 2 VIEWS CLINICAL INDICATION: PNEUMONIA TECHNIQUE: Frontal and lateral views of the chest. This report was created using [employer] report generation technology. COMPARISON: XR Chest dated 09/05/2022 FINDINGS: LUNGS AND PLEURAL SPACES: Resolution of the previously noted right lower lobe pneumonia. There is residual linear scarring/atelectasis right lung base. No pneumothorax. No effusion. HEART: Normal heart size. MEDIASTINUM: No mediastinal or hilar mass. BONES/JOINTS: No acute abnormality. SOFT TISSUES: Normal. RAD/Chest PA and Lateral IMPRESSION: No acute cardiopulmonary abnormality. Resolution of the previously noted right lower lobe pneumonia Electronically Signed: Vitaly Damon MD at 12:42 EST ,
== END | disposition home or self-care (01) ==
PROVIDERS: PCP Nurse Practitioner Family; Referring Provider Nurse Practitioner Family; Visit Provider Nurse Practitioner Family
DX: J18.9 Pneumonia, unspecified organism (principal)
CPT/HCPCS: 71046

== ENCOUNTER → 2022-09-30 | Outpatient (CLI) | payer MEDICARE, SELFPAY ==
--- NOTE | 2022-09-30 15:04 | SP.MBSS_ITS ---
Modified Barium Swallow - Patient Information Study Date: 09/30/22 Study Time: 13:00 Direct Billable Minutes: 120 Total Minutes procedure & reportin Diagnosis: Dysphagia (R13.10) Referring Physician: Francis Verma Reason for Referral: Objectively assess swallow function, risk for aspiration, and determine recommendations for least restrictive diet textures and compensatory strategies to improve safety of swallow. Medical History: Fior Escamilla is a 72-year-old female with PMH including CITLALY, anxiety, bipolar with moderate depression, confusion, diabetes insipidus, difficulty chewing, falls, HTN, PE, schizophrenia, RLL PNA, and tardive dyskinesia, psychogenic polydipsia (SEE EMR for full PMH). Pt was recently hospitalized at [facility] from 09/05/2022-09/11/2022 to be managed for hypotension, anemia, and RLL PNA amongst other comorbidities. Pt had been vomiting at home. EGD completed and revealed erosive esophagitis (treated with bipolar cautery), esophageal plaques, small hiatal hernia. Per 's report to FIRST AID DIRECTOR, the patient has had increased swallowing difficulty ~3-4 days after discharge from the hospital. At least 1X daily he reports that with food, drinks, or pills, the patient will experience a coughing episode - expectorating large amounts white phlegm and often food particles (pt's has reported seeing pears and yogurt in the sputum). She was referred for MBSS to assess aspiration risk when consuming food and drink. Chest X-ray completed on this date revealing no acute cardiopulmonary abnormality. Resolution of the previously noted right lower lobe pneumonia. Current Diet Ordered: Soft solids / Thin liquids Mental Status: WNL - Able to follow commands and simple conversation with FIRST AID DIRECTOR; however, , Eugene, answered most questions re: history for the patient. Respiratory Status: Oxygenating on Room Air - Penetration-Aspiration Scale Penetration-Aspiration Scale: OBJECTIVE ASSESSMENT OF SWALLOW FUNCTION (QUANTITATIVE ? PER TRIAL): PENETRATION / ASPIRATION SCALE (ENGLISH): 1 = does not enter airway 2 = enters airway/above vocal folds/ejected 3 = enters airway/above vocal folds/not ejected 4 = enters airway/contacts vocal folds/ejected 5 = enters airway/contacts vocal folds/not ejected 6 = enters airway/below vocal folds/ejected 7 = enters airway/below vocal folds/not ejected despite effort 8 = enters airway/below vocal folds/no effort VIDEOFLOROSCOPIC SCALE SCORE (ENGLISH): Grade I = aspiration of material that has penetrated into the laryngeal vestibule, intact cough reflex Grade II = aspiration < 10 % of the bolus, intact cough reflex Grade III = aspiration of < 10 % of the bolus, reduced cough reflex or aspiration of > 10 % of the bolus, intact cough reflex Grade IV = aspiration of > 10 % of the bolus, reduced cough reflex - Penetration-Aspiration Scale Score Thin Liquid via teaspoon Result: 2= enter airway/above vocal folds/ejected Thin Liquid via teaspoon Trial 2 Result: 1= does not enter airway Thin Liquid via small single sip from cup Result: 1= does not enter airway Thin Liquid via sequential sips from cup Result: 2= enter airway/above vocal folds/ejected [place] Thick Liquid via small single sip from cup Result: 1= does not enter airway Honey Thick Liquid via small single sip from cup Result: 1= does not enter airway Pudding via teaspoon with esophageal screen Result: 1= does not enter airway 1/4 Cookie Result: 1= does not enter airway Barium tablet with water with esophageal screen Result: 1= does not enter airway - Oral Phase Labial Seal: No Labial Escape Tongue Control During Bolus Hold: Posterior escape of greater than half of bolus Bolus Preparation/Mastication: Slow prolonged chewing/mashing with complete recollection Bolus Transport/Lingual Motion: Delayed initiation of tongue motion Oral Residue: Residue collection on oral structures - Pharyngeal Phase Initiation of Pharyngeal Swallow: Bolus head at posterior laryngeal surgace of epiglottis Soft Palate Elevation: Trace column of contrast/air between soft palate and pharyngeal wall Laryngeal Elevation: Partial superior movement thyroid cart/partial apprx aryt- epig petiole Anterior Hyoid Excursion: Complete anterior movement Epiglottic Movement: Complete inversion Laryngeal Vestibule Closure at Height of Swallow: Incomplete; narrow column of air/contrast in laryngeal vestibule Pharyngeal Stripping Wave: Present - diminished Pharyngoesophageal Segment Opening: Parital distension and partial duration; parital obstruction of flow Tongue Base Retraction: Narrow column of contrast between tongue base & post. pharyngeal wall Pharyngeal Residue: Trace residue within or on pharyngeal structures - Esophageal Phase Esophageal Clearance: Esophageal retention w/ retrograde flow below pharyngoesophageal seg. - Treatment Strategies Effects of treatment strategies attemped:: Liquid wash = effective to clear pudding contrast from lower esophagus; however, unable to clear barium tablet from lower esophagus. - Diagnosis/Impression Diagnosis: Mild oropharyngeal phase dysphagia (R13.12) Impression: The oral phase is primarily marked by... -Decreased bolus control with >1/2 of the bolus pudding spilling posteriorly to the vallecula prior to swallow onset. <1/2 of thin liquids spilled posteriorly to the posterior surface of the epiglottis prior to swallow onset. -Mild oral residue after the swallow, which mostly cleared with independent initiation of a second swallow with pudding or larger sips. -Prolonged but adequate mastication of cookie. The pharyngeal phase is primarily marked by... -Mildly decreased laryngeal elevation laryngeal elevation during the study; however, the patient maintained good airway protection during the swallow. She had trace laryngeal penetration with full ejection of thin liquids via tsp, sequential cup, and straw. No aspiration observed during the swallow. -Mildly decreased tongue base retraction, UES opening/duration, and pharyngeal stripping wave; however, pt only had trace pharyngeal residue after the swallow. The esophageal phase is primarily marked by... -Esophageal retention of pudding in lower esophagus with retrograde flow remaining below UES. This esophageal retention effectively cleared when provided thin liquid wash. -Esophageal retention of barium tablet in lower esophagus. This esophageal retention did not clear when provided thin liquid wash. -FIRST AID DIRECTOR is concerned the patient is at risk for reflux aspiration due to esophageal retention observed during the study and the pt's reporting the patient coughing up food particles and white sputum at meals. -SEE study in PACS for imaging of esophageal screens of pudding, thin liquid via straw, and barium tablet with water. - Recommendations Diet: Thin Liquids - Soft and bite size textures (IDDSI Level 6) Comment: Consider 4-5 smaller meals daily, crush medications in puree as able. If increased s/s of aspiration at a meal, discontinue and continue eating/drinking at a later time as the patient is at risk for reflux aspiration. Compensatory Strategies: Small Bites - chew thoroughly, Small Sips, Slow Rate - sips one at a time, Alternate bites/solids and sips/liquids - 1:1 ratio, Sitting upright, Remain sitting upright for 30 minutes after PO intake Supervision: Assist as needed - Family assist with verbal cues as needed during meals to follow through with strategies. Recommend Repeat Modified Barium Swallow: No Need for Skilled Speech Therapy Services: Yes Comment: Will recommend the patient for dysphagia therapy to address mild deficits in oropharyngeal swallow function. Per , [facility] has already been initiated - no evaluation yet and they are awaiting authorization. Will recommend the patient for oropharyngeal strengthening to improve tongue base retraction, laryngeal elevation, and pharyngeal contraction (CTAR, Liam, Suzie, effortful swallow). The patient would benefit from thorough education regarding diet recommendations and recommended compensatory strategies to decrease risk for aspiration and reflux. Recommended Referrals: GI Consult - continue to follow with Dr. Verma to manage esophageal retention of pudding (with retrograde flow) and barium tablet observed during the study Education Completed: 1. Described result of evaluation., 2. Pt understands evaluation & agrees with goals and treatment plan., 4. Family/caregivers understand evaluation & agree w/ goals & tx plan., 7. Pt requires further education on strategies & risks., 8. Family/caregivers require further education on strategies & risks. - Status Active ST Patient: Active - Contact Information [facility] Speech Therapy:: Tresa Frank M.A. [facility]-FIRST AID DIRECTOR Speech-Language Pathologist [facility] [address] [place] [address] [email or web address] [phone] 09/30/22 15:23
== END | disposition home or self-care (01) ==
LOC: RAD 12:51
PROVIDERS: PCP Nurse Practitioner Family; Referring Provider Internal Medicine Gastroenterology; Visit Provider Internal Medicine Gastroenterology
DX: J18.9 Pneumonia, unspecified organism (principal); R13.10 Dysphagia, unspecified
CPT/HCPCS: 71046; 74230; 92611

== ENCOUNTER 2022-10-06 14:21 | Emergency (ER) | payer MEDICARE, SELFPAY ==
[2022-10-06 14:22] VITALS: BP 124/90; PULSE 121; RESP 12; TEMP 36.2; O2SAT 93; BMI 20.6
--- NOTE | 2022-10-06 14:44 | CT_ITS ---
STUDY: CT BRAIN WITHOUT CONTRAST REASON FOR EXAM: Female, 72 years old. swallowing difficulty RADIATION DOSAGE (If Supplied By Facility): CTDIvol = ( 44.99 ) mGy, DLP = ( 779.24 ) mGycm TECHNIQUE: Transaxial CT imaging of the brain was performed without administration of intravenous contrast material. Individualized dose optimization techniques were used for this CT. COMPARISON: CT brain October 05, 2020 FINDINGS: Normal soft tissue structures. Normal calvarium. There is mild cerebral atrophy with widening of the extra-axial spaces and ventricular dilatation. There are areas of decreased attenuation within the white matter tracts of the supratentorial brain, consistent with microvascular disease changes. Normal basal ganglia and thalami. Normal brainstem. Normal cerebellum. There is no intracranial hemorrhage. There are no findings of an acute ischemic infarction. Normal visualized paranasal sinuses. CT/Brain/Head without Contrast IMPRESSION: Chronic involutional changes of the brain. Electronically Signed: Francis Corona MD at 16:26 EST ,
--- NOTE | 2022-10-06 14:46 | EX.ED.DYSGE1 ---
HPI History of Present Illness Chief Complaint: General Illness Detail of Chief Complaint: Difficulty swallowing Informant: patient and parent Onset/Context/Timing Onset: Weeks Context: Gradual Onset Timing: Waxes and wanes Narrative Narrative: Patient presents with for evaluation secondary to difficulty swallowing over the past 2 or 3 weeks. Patient was admitted to the hospital recently with aspiration pneumonia. 2 or 3 days after getting out of the hospital he noted she was having difficulty swallowing. She will often cough up mucus that has food fragments in it. She underwent a cookie swallow last week. They recommended thin liquids. states they have been following the diet recommendations but she continues to have coughing and choking episodes at home. He states this does seem to be intermittent yesterday she seemed to have no difficulty at all. He did bring her in for labs this morning and was concerned that perhaps her chemistries were out of whack. She has not had fever. She denies chest pain or shortness of breath. [facility] Medical History CITLALY (acute kidney injury) Anemia Anxiety Bipolar disorder with moderate depression Confusion state Delirium due to multiple etiologies Diabetes insipidus, nephrogenic Difficulty chewing Falls History of herpes zoster History of tobacco use Hypercalcemia Hypernatremia Hypertension Hyponatremia Carolyn Psychogenic polydipsia Pulmonary emboli Renal disease Schizophrenia Secondary hyperparathyroidism of renal origin Smoking Syncope Tardive dyskinesia Home Medications cinacalcet 30 mg tablet 30 mg PO SUMOWEFR 10/04/20 [History Last Taken 09/05/22] methimazole 5 mg tablet 5 mg PO SUMOWEFR 10/04/20 [History Last Taken 09/05/22] memantine 10 mg tablet 10 mg PO DAILY 01/03/21 [History Last Taken 09/05/22] cholecalciferol (vitamin D3) 50 mcg (2,000 unit) capsule 2,000 unit PO DAILY SUPPLEMENT 01/15/21 [History Last Taken 09/05/22] ferrous sulfate 325 mg (65 mg iron) tablet 325 mg PO BID SUPPLEMENT 01/15/21 [History Last Taken 09/05/22] tramadol 50 mg tablet 50 mg PO BID 01/21/22 [History Last Taken 09/05/22] aripiprazole 20 mg tablet 20 mg PO DAILY 09/05/22 [History Last Taken 09/05/22] denosumab 60 mg/mL subcutaneous syringe (Prolia) 60 mg subcut UD 09/05/22 [History Last Taken 2 Weeks Ago ~08/22/22] lorazepam 2 mg tablet 2 mg PO 4XD anxiety 09/05/22 [History Last Taken 09/05/22 09:00] losartan 25 mg tablet 25 mg PO DAILY 09/05/22 [History Last Taken 09/05/22] melatonin 10 mg capsule 10 mg PO QHS 09/05/22 [History Last Taken 09/04/22] oxybutynin chloride 15 mg tablet,extended release 24 hr 15 mg PO DAILY 09/05/22 [History Last Taken 09/05/22] polyethylene glycol 3350 17 gram/dose oral powder (Miralax) 17 g PO DAILY 09/05/22 [History Last Taken 09/05/22] food supplemt, lactose-reduced 0.08 gram-1.5 kcal/mL oral liquid (Ensure Plus High Protein) 120 ml PO TIDCM #120 BOTTLES 09/10/22 [Rx Last Taken Unknown] pantoprazole 40 mg tablet,delayed release (Protonix) 40 mg PO DAILY #90 tabs 09/10/22 [Rx Last Taken Unknown] nystatin 100,000 unit/mL oral suspension 10 ml PO BID #473 mL 09/29/22 [Rx Last Taken Unknown] amoxicillin 400 mg-potassium clavulanate 57 mg/5 mL oral suspension 10 ml PO BID 10 days #200 mL 10/06/22 [Rx Last Taken Unknown] Allergy/AdvReac Type Severity Reaction Status Date / Time No Known Allergies Allergy Verified 10/06/22 14:22 Social History Smoking Status: Former smoker ROS ROS ED Constitutional Constitutional ED: Denies chills or fever(s) Eyes Eyes: Denies change in vision or discharge from eye(s) ENT ENT ED: Denies discharge from eye(s), rhinorrhea or sore throat Cardiovascular Cardiovascular: Denies chest pain or palpitations Respiratory/Chest Respiratory/Chest: Denies cough or dyspnea Gastrointestinal Gastrointestinal: Denies abdominal pain, diarrhea, nausea or vomiting Genitourinary Genitourinary ED: Denies dysuria Musculoskeletal Musculoskeletal: Denies back pain or extremity pain Integumentary Denies Abrasions or rash Neurologic Neurologic: Denies headache(s) or weakness Psychiatric Psychiatric: Denies anxiety or depression Allergic/Immunologic Allergic/Immunologic ED: Denies lip swelling or urticaria EXAM Physical Exam Const Vital Signs: 10/06/22 14:22 10/06/22 15:01 10/06/22 16:49 Temperature 97.2 F L Temperature Source Temporal Pulse Rate 121 H 94 Respiratory Rate 12 16 Respiratory Effort Normal Non-Labored Blood Pressure 124/90 H 114/76 Blood Pressure Mean 101 88 Pulse Ox 93 93 Oxygen Delivery Method Room Air Room Air Positive well nourished and well developed General Appearance ED: well developed HEENT Reports dry mucous membranes Mouth ED: Yes dry mucous membranes Mouth: dry mucous membranes Eyes PERRL and EOMs intact bilaterally Chest Wall inspection of chest normal and palpation of chest normal Resp normal respiratory effort and clear to auscultation bilaterally Cardio regular rate and regular rhythm GI non-tender Palpation: soft Neuro no sensory deficits noted Neuro Narrative: No focal neurologic deficit. Motor Exam: strength 5/5 throughout Skin no rashes or lesions noted MDM MDM MDM Narrative Medical decision making narrative: Patient's lab work from earlier today is reviewed. Her white count is normal at 10.0. Hemoglobin is 10.6 which is improved when compared to prior. Chemistry studies reveal BUN of 33 and a creatinine 1.96. This is only slightly elevated above her baseline. LFTs are unremarkable. Patient was given a liter IV fluid here and 2 view chest x-ray obtained. Head CT also obtained. Radiography Chest X-Ray - ED: 2 View, Read by ED Physician and Right Infiltrate Diagnostic Testing: Clinical Impression(s) from Imaging Studies Brain CT 10/06/22 14:44 IMPRESSION: Chronic involutional changes of the brain. Electronically Signed: Francis Corona MD at 16:26 EST , Chest X-Ray 10/06/22 15:45 IMPRESSION: Infiltrate right lower lobe with pleural effusion. Findings consistent with pneumonia. Recommend follow-up to complete resolution. Electronically Signed: Sam Benton MD at 16:21 EST , Treatment and Re-Evaluation Narrative: Head CT is unremarkable. Chronic changes only noted. Two-view chest x-ray per my interpretation reveals a right lower lobe infiltrate. This appears unchanged when compared to her most recent comparative film. She is given a dose of Unasyn here. I spoke with Dr. Verma. The patient states she does not want any kind of feeding tube placed. Other than this the only other option would be surgery to wrap her stomach around the lower esophagus. Patient states she would not want this done either. Patient be discharged with a prescription for Augmentin. I will write her for the liquid medication as I think that will be easier for her to swallow. Speech therapy services are already in place. Return instructions are given. Discharge Plan Triage Chief Complaint: General Illness ED Provider: Janell Bledsoe Dx/Rx/DC Orders Clinical Impression: Aspiration pneumonia Instructions: ED Pneumonia (Adult) Prescriptions: New amoxicillin-pot clavulanate 400-57 mg/5 mL suspension for reconstitution 10 ml PO BID 10 Days Qty: 200 0RF No Action tramadol 50 mg tablet 50 mg PO BID methimazole 5 MG tablet 5 mg PO SUMOWEFR cinacalcet 30 MG tablet 30 mg PO SUMOWEFR memantine 10 MG tablet 10 mg PO DAILY ferrous sulfate 325 MG tablet 325 mg PO BID cholecalciferol (vitamin D3) 2,000 UNIT capsule 2,000 unit PO DAILY oxybutynin chloride 15 mg tablet extended release 24hr 15 mg PO DAILY Label Comments: take 1 tablet by mouth every morning losartan 25 mg tablet 25 mg PO DAILY Label Comments: take 1 tablet by mouth once daily polyethylene glycol 3350 [Miralax] 17 gram/dose Powder 17 g PO DAILY aripiprazole 20 mg tablet 20 mg PO DAILY Label Comments: take 1 tablet by mouth once daily Prolia 60 mg/mL Syringe 60 mg SUBCUT UD melatonin 10 mg Capsule 10 mg PO QHS lorazepam 2 mg tablet 2 mg PO 4XD Label Comments: take 1 tablet by mouth four times a day if needed for anxiety Ensure Plus High Protein 0.08 gram-1.5 kcal/mL Liquid 120 ml PO TIDCM Qty: 120 0RF pantoprazole [Protonix] 40 mg tablet,delayed release (DR/EC) 40 mg PO DAILY Qty: 90 0RF nystatin 100,000 unit/mL suspension 10 ml PO BID Qty: 473 0RF Rx Instructions: swish and swallow for fourteen days Primary Care Provider: Jay Kincaid NP Referrals: Francis Verma DO [Med Staff - Active Staff] - As Needed Jay Kincaid [employer], [employer] [Primary Care Provider] - 1-2 Weeks Disposition Disposition: Home, Self Care
[2022-10-06] MEDS: 0.9% Normal Saline 1,000 ML 1000 ML IV (15:00)
--- NOTE | 2022-10-06 15:45 | RAD_ITS ---
INDICATION: cough EXAMINATION/TECHNIQUE: X-RAY - XR Chest 2 Views COMPARISON: 09/30/2022 FINDINGS: LINES/DEVICES: None. LUNGS: Airspace opacity right lower lobe with blunting of the posterior sulcus. Left lung clear. MEDIASTINUM AND CARDIOVASCULAR STRUCTURES: Cardiac silhouette stable allowing for degree of rotation. BONES AND SOFT TISSUES: No acute changes. RAD/Chest PA and Lateral IMPRESSION: Infiltrate right lower lobe with pleural effusion. Findings consistent with pneumonia. Recommend follow-up to complete resolution. Electronically Signed: Sam Benton MD at 16:21 EST ,
[2022-10-06 16:49] VITALS: BP 114/76; PULSE 94; RESP 16; O2SAT 93
--- NOTE | 2022-10-06 17:32 | CM.ED ---
[place] Note Referral Source: MD ORELLANA advised that patient's said that he had unknown home health agency but would like speech therapy. Patient presented to the ED with issues related to swallowing and has aspiration pneumonia. [place] spoke to patient's . He voiced that he has [facility] home health for patient and would like additional speech therapy. [place] advised that this comic book writer will send email to Home Health advising that patient was in the ED and her is interested in more speech therapy. also advised that endo is scheduled in November for patient with Dr. Smyth and he inquired if it could be sooner. SW advised that this comic book writer has no access to scheduling but SW encouraged patient's to contact MD Faust's office to see if they could be on the cancellation list. [place] provided patient's with phone number for MD smyth. [place] sent email to Claritza Smith and also updated MD Bledsoe. Carrol ARSHAD
== END 2022-10-06 17:48 | disposition home or self-care (01) ==
PROVIDERS: Emergency Provider Emergency Medicine; PCP Nurse Practitioner Family; Visit Provider Emergency Medicine
DX: J69.0 Pneumonitis due to inhalation of food and vomit (principal); N18.30 Chronic kidney disease, stage 3 unspecified; R13.10 Dysphagia, unspecified; I12.9 Hypertensive chronic kidney disease with stage 1 through stage 4 chronic kidney disease, or unspecified chronic kidney disease; D53.9 Nutritional anemia, unspecified; Z87.891 Personal history of nicotine dependence
CPT/HCPCS: 36415; 70450; 71046; 80053; 82728; 83540; 83550; 85027; 96361; 96365; 99282; J7030; A4216; J0295

== ENCOUNTER → 2022-10-06 | Outpatient (CLI) | payer MEDICARE, SELFPAY ==
[2022-10-06 12:27] LABS: Hemoglobin 10.6 g/dL (12.0-15.0); Mean Corp Hgb Conc 31.2 g/dL (32-36); Mean Corpuscular Hgb 30.3 pg (27.0-32.0); Mean Corpuscular Volume 97.1 fL (81-99); Platelet Count 390 K/mm3 (150-450); RBC Distribution Width CV 13.6 % (11.6-14.6); RBC Distribution Width SD 48.4 fl (35.1-43.9)
[2022-10-06 13:24] LABS: ALB/GLOB Ratio 0.8 RATIO (0.9-2.4); AST(SGOT) 17 U/L (15-37); Alanine Aminotransfer ALT/SGPT 25 U/L (13-56); Albumin, Serum 3.1 g/dL (3.2-5.0); Alkaline Phosphatase 79 U/L (45-117); Anion Gap 10 (5-15); BUN 33 mg/dL (7-18); BUN/Creat Ratio 16.8 RATIO (10-20); Calcium,Total 10.6 mg/dL (8.5-10.1); Chloride 102 mmol/L (98-107); Creatinine, Serum 1.96 mg/dL (0.55-1.02); EST Glomerular Filtration Rate 27 mL/min (>60); Est Glom Filt Rate - Afr Amer 32 mL/min (>60); Ferritin 136 ng/mL (8-252); Globulin 3.8 g/dL (2.2-4.2); Glucose 122 mg/dL (74-106); Iron 79 ug/dL (50-170); Iron Binding Capacity,Total 279 ug/dL (250-450); Potassium 4.1 mmol/L (3.5-5.1); Protein, Total 6.9 g/dL (6.4-8.2); Sodium Level 137 mmol/L (136-145)
== END | disposition home or self-care (01) ==
PROVIDERS: PCP Nurse Practitioner Family; Referring Provider Nurse Practitioner Family; Visit Provider Nurse Practitioner Family
DX: D53.9 Nutritional anemia, unspecified (principal); N18.30 Chronic kidney disease, stage 3 unspecified
CPT/HCPCS: 36415; 80053; 82728; 83540; 83550; 85027

== ENCOUNTER → 2022-10-23 | Outpatient (CLI) | payer MEDICARE, SELFPAY ==
[2022-10-23 14:31] LABS: Amphetamine Urine VISTA NEGATIVE (<1000 ng/mL); Barbiturate Urine VISTA NEGATIVE (< 200 ng/mL); Benzodiazepine Urine VISTA NEGATIVE (< 200 ng/mL); Cocaine Urine VISTA NEGATIVE (< 300 ng/mL); Ecstacy Urine VISTA NEGATIVE (< 500 ng/mL); Methadone Urine VISTA NEGATIVE (< 300 ng/mL); PCP Urine VISTA NEGATIVE (< 25 ng/mL); THC Urine VISTA NEGATIVE (< 50 ng/mL); Vista UDS pH Range 6
== END | disposition home or self-care (01) ==
PROVIDERS: PCP Nurse Practitioner Family; Referring Provider Anesthesiology Pain Medicine; Visit Provider Anesthesiology Pain Medicine
DX: F11.20 Opioid dependence, uncomplicated (principal)
CPT/HCPCS: 80307

== ENCOUNTER 2022-10-28 12:13 | Outpatient (RCR) | payer MEDICARE, SELFPAY ==
[2022-09-09 10:38] VITALS: BMI 20.4
--- NOTE | 2022-10-28 12:30 | RAD_ITS ---
STUDY: X-RAY CHEST REASON FOR EXAM: Female, 72 years old. Follow-up of pneumonia. TECHNIQUE: Frontal and lateral views of the chest. COMPARISON: October 06, 2022. FINDINGS: Stable hyperinflation. Decreased opacity in the right lower lobe. Persistent small right pleural effusion. Stable mild cardiomegaly unchanged. Normal mediastinum and tarik. Normal visualized pulmonary arteries. Stable aortic tortuosity. Normal visualized thoracic spine. Normal visualized ribs, clavicles, and shoulders. There is no demonstrated abnormality of the visualized soft tissue structures of the upper abdomen. RAD/Chest PA and Lateral IMPRESSION: Cardiomegaly with hyperinflation. Decreased opacity in the right lower lobe. No acute finding. Electronically Signed: Anshu Camarena, at 13:58 EST ,
[2022-10-28 13:04] LABS: ALB/GLOB Ratio 0.8 RATIO (0.9-2.4); AST(SGOT) 10 U/L (15-37); Alanine Aminotransfer ALT/SGPT 17 U/L (13-56); Albumin, Serum 2.7 g/dL (3.2-5.0); Alkaline Phosphatase 81 U/L (45-117); Anion Gap 8 (5-15); BUN 50 mg/dL (7-18); BUN/Creat Ratio 26.7 RATIO (10-20); Calcium,Total 10.2 mg/dL (8.5-10.1); Chloride 102 mmol/L (98-107); Creatinine, Serum 1.87 mg/dL (0.55-1.02); EST Glomerular Filtration Rate 28 mL/min (>60); Est Glom Filt Rate - Afr Amer 34 mL/min (>60); Globulin 3.6 g/dL (2.2-4.2); Glucose 169 mg/dL (74-106); Potassium 3.7 mmol/L (3.5-5.1); Protein, Total 6.3 g/dL (6.4-8.2); Sodium Level 137 mmol/L (136-145)
== END 2022-10-28 18:00 | disposition home or self-care (01) ==
LOC: LAB 12:13
PROVIDERS: Family Provider Nurse Practitioner Family; PCP Nurse Practitioner Family; Referring Provider Nurse Practitioner Family; Visit Provider Nurse Practitioner Family
DX: N18.30 Chronic kidney disease, stage 3 unspecified (principal); J18.9 Pneumonia, unspecified organism
CPT/HCPCS: 36415; 71046; 80053

== ENCOUNTER → 2022-11-04 | Outpatient (CLI) | payer MEDICARE, SELFPAY ==
[2022-11-04 14:12] LABS: Vitamin D,25 Hydroxy 80.1 ng/mL
[2022-11-04 14:19] LABS: ALB/GLOB Ratio 0.8 RATIO (0.9-2.4); AST(SGOT) 13 U/L (15-37); Alanine Aminotransfer ALT/SGPT 20 U/L (13-56); Albumin, Serum 2.9 g/dL (3.2-5.0); Alkaline Phosphatase 89 U/L (45-117); Anion Gap 11 (5-15); BUN 22 mg/dL (7-18); BUN/Creat Ratio 11.5 RATIO (10-20); Calcium,Total 9.9 mg/dL (8.5-10.1); Chloride 104 mmol/L (98-107); Creatinine, Serum 1.91 mg/dL (0.55-1.02); EST Glomerular Filtration Rate 27 mL/min (>60); Est Glom Filt Rate - Afr Amer 33 mL/min (>60); Free T3 2.2 pg/mL (2.18-3.98); Globulin 3.8 g/dL (2.2-4.2); Glucose 151 mg/dL (74-106); Potassium 3.8 mmol/L (3.5-5.1); Protein, Total 6.7 g/dL (6.4-8.2); Sodium Level 140 mmol/L (136-145); T4 Free Direct 1.17 ng/dL (0.76-1.46); Thyroid Stim Hormone (TSH) 0.68 uIU/mL (0.358-3.74)
[2022-11-07 17:06] LABS: Vitamin D 1,25-Dihydroxy 26.1 pg/mL (24.8-81.5)
== END | disposition home or self-care (01) ==
LOC: LAB 12:52
PROVIDERS: PCP Nurse Practitioner Family; Referring Provider Internal Medicine Endocrinology, Diabetes & Metabolism; Visit Provider Internal Medicine Endocrinology, Diabetes & Metabolism
DX: E05.90 Thyrotoxicosis, unspecified without thyrotoxic crisis or storm (principal); F31.9 Bipolar disorder, unspecified; E21.3 Hyperparathyroidism, unspecified; E55.9 Vitamin D deficiency, unspecified; M81.0 Age-related osteoporosis without current pathological fracture
CPT/HCPCS: 36415; 80053; 82306; 82330; 82652; 83970; 84439; 84443; 84481

== ENCOUNTER 2022-11-06 07:32 | Day surgery (SDC) | payer MEDICARE, SELFPAY ==
[2022-11-06] MEDS: Lactated Ringers 1,000 ML 15 ML IV (07:45)
[2022-11-06 08:10] VITALS: BP 111/74; PULSE 89; RESP 17; TEMP 36.4; O2SAT 95; BMI 22.0
--- NOTE | 2022-11-06 08:35 | PCM.HP.BLA ---
History and Physical Date of Admission: 11/06/22 72 F who presents to the office today for f/u hospitalization. Hospitalized 09/05/22-09/10/22 for aspiration pneumonia.? On 09/08/2022 Dr. Verma did EGD which revealed LA grade D esophagitis with bleeding which he treated with successfully using bipolar probe.? She has a small hiatal hernia.? He recommended pantoprazole 40 mg twice daily.? He had a gastric emptying study which is abnormal, she has delayed emptying at 73 minutes.? She is accompanied by her , he reports most of her history.? She is having frequent vomiting which occurs after regurgitating her food. Vomited in the middle of last night. Eating soft foods. When she eats then food regurgitates and then she vomits. Taking pills in apple sauce which helps her to be able to swallow them. Some bloating. Bowels are normal. No melena or hematochezia. She had a modified barium swallow study which revealed esophageal retention of fluid in the lower esophagus with retrograde flow remaining below the UES, but this retention was cleared with thin liquid wash.? Barium tablet remains trapped in the esophagus. 09/08/22 EGD: LA Grade D reflux esophagitis, small hiatal hernia, esophageal candidiasis 09/09/22 gastric emptying study: delayed emptying 73 minutes 09/30/22 MBSS: Diagnosis:?Mild oropharyngeal phase dysphagia (R13.12) The esophageal phase is primarily marked by... -Esophageal retention of pudding in lower esophagus with retrograde flow remaining below UES. This esophageal retention effectively cleared when provided thin liquid wash. -Esophageal retention of barium tablet in lower esophagus. This esophageal retention did not clear when provided thin liquid wash. -INSPECTOR BICYCLE is concerned the patient is at risk for reflux aspiration due to esophageal retention observed during the study and the pt's reporting the patient coughing up food particles and white sputum at meals. - Recommendations Diet:?Thin Liquids - Soft and bite size textures (IDDSI Level 6) Comment: Consider 4-5 smaller meals daily, crush medications in puree as able. If increased s/s of aspiration at a meal, discontinue and continue eating/drinking at a later time as the patient is at risk for reflux aspiration. Compensatory Strategies:?Small Bites - chew thoroughly, Small Sips, Slow Rate - sips one at a time, Alternate bites/solids and sips/liquids - 1:1 ratio, Sitting upright, Remain sitting upright for 30 minutes after PO intake Comment: Will recommend the patient for HH dysphagia therapy to address mild deficits in oropharyngeal swallow function. Per , HH ST has already been initiated - no evaluation yet and they are awaiting authorization. Will recommend the patient for oropharyngeal strengthening to improve tongue base retraction, laryngeal elevation, and pharyngeal contraction (CTAR, Liam, Suzie, effortful swallow). The patient would benefit from thorough education regarding diet recommendations and recommended compensatory strategies to decrease risk for aspiration and reflux. Recommended Referrals:?GI Consult - continue to follow with Dr. Verma to manage esophageal retention of pudding (with retrograde flow) and barium tablet observed during the study ROS Const Constitutional: Positive for fatigue and weight change ENT ENT: Positive for difficulty swallowing Gastro GI: Positive for constipation, diarrhea, heartburn, difficulty swallowing, nausea/dyspepsia and vomiting; No abdominal pain, belching, bloating, change in bowel habits, change in stool character, coffee ground emesis, cramping, feeling full early, excessive flatus, incontinent of stools, Vomiting blood/hematemesis, Blood in stool, loose stools, Black,tarry stools, pain with swallowing or other Musc Musculoskeletal: Positive for back pain and restless legs; No joint pain Skin Skin: No yellowing of the eye or itchy eyes Neuro Neurology: Positive for restless legs Psych Psychiatric: Positive for anxiety and Positive for depression Endo Endocrine: Positive for fatigue and weight change Aller/Imm Allergy/Immunologic: No itchy eyes Ranjit/Lymp Hematologic/Lymphatic: No easy bleeding or easy bruising Exam Const General: cooperative and no acute distress Nutritional Appearance: average body habitus Other: She is in a wheelchair, she interacts only minimally but it is evident that she is following the conversation Eyes Sclera: sclerae normal Resp Effort & Inspection: normal respiratory effort GI Inspection: normal to inspection Quality Reporting Tobacco Screening ([facility] 138) Smoking Status: Former smoker Assessment and Plan Assessment and Plan (1) Nondiabetic gastroparesis: ?Status:?Acute ?Plan: 72-year-old female with gastroparesis, regurgitation and vomiting, LA grade D esophagitis, esophageal retention on MBSS.? I reviewed the findings from her EGD, gastric emptying study and other testing with patient and her .? Would like to focus on treating gastroparesis in hopes that that will then decrease reflux, regurgitation, vomiting.? Metoclopramide has potential interaction with abilify, increased risk of tardive dyskinesia, which she apparently already has some symptoms of.? She sees her psychiatrist later this week, I wrote a note for her to share with the psychiatrist about our plans. Will try azithromycin 250 mg daily x 1 wk to see if that helps with symptoms, which would indicate gastroparesis as cause of symptoms. Will have her increase pantoprazole 40 mg from once a day to BID.? I will plan on talking to her on the phone to see how she does on the azithromycin. ? ? ? Medications: New azithromycin 250 mg? PO DAILY 7 days 7 tabs 0RF ? ? Refilled pantoprazole (Protonix) 40 mg? PO DAILY 180 tabs 1RF ? ? Discontinued amoxicillin-pot clavulanate 400-57 mg/5 mL ?? Discontinued Reason:? Order Completed 10 mL? PO BID 10 days 200 mL 0RF ? ? I have examined the patient and the H&P has been reviewed. There are no clinical changes since date of exam.
--- NOTE | 2022-11-06 08:45 | EGD_PTH ---
PATIENT: SIMONA HERNANDEZ LOC: EN U#:[id number] AGE/SX: 72/F ROOM: RE11/06/[address]: Dr. Francis Verma DO : 1950 BED: DIS: 11/06/2022 SPEC #: [id number] RECD: 11/06/22 13:18 STATUS: NATALYA GRAVESFauzia #: [id number] HOLLIE: 11/06/22 08:[address]: Francis Verma DEPT: SURGICAL PATHOLOGY RECD BY: Giovana Torres ENTERED: 11/07/22 09:07 SP TYPE: EGD BIOPSY CAESAR DR: Jay Kincaid, SLIVER CHOPPER-C Tissues: Esophagus, NOS Procedures: Special Stain Group II Surgery Specimen Level IV Alcian Blue/PAS (control) HEADER OPERATION: EGD (MAC), dilation, biopsy PRE-OP DIAGNOSIS: Nondiabetic gastroparesis TISSUE SUBMITTED: Distal esophagus biopsy MICROSCOPIC DIAGNOSIS Distal esophagus, biopsy: Gastroesophageal junctional mucosa with mild chronic and focal acute inflammation. Focal changes of reflux. Fibrinopurulent material. No evidence of goblet cell metaplasia. See comment. AM:quentin 11/11/2022 COMMENT Alcian blue/PAS stain with matched control supports the above diagnosis. MICROSCOPIC DESCRIPTION Slides are reviewed. GROSS DESCRIPTION Received in fixative is one container labeled with the patient's name and designated distal esophagus biopsy. The specimen consists of multiple irregular fragments of light regalado soft tissue that in aggregate measure 1.5 x 0.5 x 0.1 cm. The specimen is totally submitted in one cassette. / SJ:quentin 11/07/2022 TC:3 CPT: 76862, 00930
[2022-11-06 10:20] VITALS: BP 111/74; BP 113/75; PULSE 77; RESP 16; TEMP 37.2; O2SAT 100
--- NOTE | 2022-11-06 10:23 | OP.EGD_ITS ---
Patient Name: Fior Escamilla Procedure Date: 11/06/2022 9:45 AM Date of : 1950 Age: 72 Procedure: Upper GI endoscopy Indications: Dysphagia Providers: Francis Verma DO Referring MD: Jay Kincaid Medicines: Monitored Anesthesia Care Patient Profile: This is a 72 year old female. Refer to note in patient chart for documentation of history and physical. Patient has symptoms of dysphagia with both liquids and solids. She is status post EGD for dilation within the past three months. Complications: No immediate complications. Procedure: Pre-Anesthesia Assessment: - Prior to the procedure, a History and Physical was performed, and patient medications and allergies were reviewed. The risks and benefits of the procedure and the sedation options and risks were discussed with the patient. All questions were answered and informed consent was obtained. Patient identification and proposed procedure were verified by the physician in the pre-procedure area. Mental Status Examination: alert and oriented. Airway Examination: normal oropharyngeal airway and neck mobility. Respiratory Examination: clear to auscultation. CV Examination: normal. Prophylactic Antibiotics: The patient does not require prophylactic antibiotics. Prior Anticoagulants: The patient has taken no previous anticoagulant or antiplatelet agents. After reviewing the risks and benefits, the patient was deemed in satisfactory condition to undergo the procedure. The anesthesia plan was to use monitored anesthesia care (MAC). Immediately prior to administration of medications, the patient was re-assessed for adequacy to receive sedatives. The heart rate, respiratory rate, oxygen saturations, blood pressure, adequacy of pulmonary ventilation, and response to care were monitored throughout the procedure. The physical status of the patient was re-assessed after the procedure. After obtaining informed consent, the endoscope was passed under direct vision. Throughout the procedure, the patient's blood pressure, pulse, and oxygen saturations were monitored continuously. The Endoscope was introduced through the mouth, and advanced to the second part of duodenum. The upper GI endoscopy was accomplished without difficulty. The patient tolerated the procedure well. Scope In: 10:01:22 AM Scope Out: 10:16:32 AM Total Procedure Duration Time 0 hours 15 minutes 10 seconds Findings: LA Grade C (one or more mucosal breaks continuous between tops of 2 or more mucosal folds, less than 75% circumference) esophagitis with bleeding was found 30 to 37 cm from the incisors. Coagulation for hemostasis using argon plasma at 0.3 liters/minute and 20 bahena was successful. Estimated blood loss was minimal. One benign-appearing, intrinsic stenosis was found 30 to 34 cm from the incisors. This stenosis was severe (stenosis; an endoscope cannot pass) and measured 3 cm (in length). The stenosis was traversed after dilation. A TTS dilator was passed through the scope. Dilation with a 15-16.5-18 mm balloon dilator was performed. The dilation site was examined following endoscope reinsertion and showed complete resolution of luminal narrowing. Estimated blood loss was minimal. Moderately severe esophagitis with no bleeding was found 35 to 37 cm from the incisors. Biopsies were taken with a cold forceps for histology. Verification of patient identification for the specimen was done. Estimated blood loss was minimal. A medium-sized hiatal hernia was present. No other significant abnormalities were identified in a careful examination of the stomach. No gross lesions were noted in the first portion of the duodenum. Impression: - LA Grade C erosive esophagitis. Treated with argon plasma coagulation (APC). - Benign-appearing esophageal stenosis. Dilated. - Moderately severe erosive esophagitis. Biopsied. - Medium-sized hiatal hernia. - No gross lesions in the first portion of the duodenum. Recommendation: - Discharge patient to home. - Resume previous diet. - Continue present medications. Procedure Code(s): --- Professional --- 02857, 59, Esophagogastroduodenoscopy, flexible, transoral; with control of bleeding, any method 29223, Esophagogastroduodenoscopy, flexible, transoral; with transendoscopic balloon dilation of esophagus (less than 30 mm diameter) 70403, 59,51, Esophagogastroduodenoscopy, flexible, transoral; with biopsy, single or multiple CPT copyright 2017 [employer]. All rights reserved. The codes documented in this report are preliminary and upon entrepreneurial finance professor review may be revised to meet current compliance requirements. Francis Verma DO 11/06/2022 10:23:14 AM This report has been signed electronically. Number of Addenda: 0 Note Initiated On: 11/06/2022 9:45 AM
--- NOTE | 2022-11-06 10:23 | OP.CCLET_ITS ---
11/06/2022 Jay Kincaid Re : Upper GI endoscopy procedure for Fior Escamilla Dear Codi This procedure was performed on October. My impressions and recommendations are as follows: Impressions : - LA Grade C erosive esophagitis. Treated with argon plasma coagulation (APC). - Benign-appearing esophageal stenosis. Dilated. - Moderately severe erosive esophagitis. Biopsied. - Medium-sized hiatal hernia. - No gross lesions in the first portion of the duodenum. Recommendations : - Discharge patient to home. - Resume previous diet. - Continue present medications. My findings are described in the full procedure note, which is enclosed. If I can be of further assistance, please feel free to contact me at . Sincerely, Francis Verma, 11/06/2022 10:23:14 AM This report has been signed electronically.
[2022-11-06 10:25] VITALS: BP 111/74; BP 94/77; PULSE 80; RESP 16; O2SAT 99
[2022-11-06 10:30] VITALS: BP 111/74; BP 120/70; PULSE 78; RESP 16; O2SAT 98
[2022-11-06 10:35] VITALS: BP 111/74; BP 127/95; PULSE 77; RESP 16; TEMP 36.6; O2SAT 95
[2022-11-06 10:54] VITALS: BP 111/74
== END 2022-11-06 11:03 | disposition home or self-care (01) ==
LOC: EN 07:33 → AC 07:34
PROVIDERS: PCP Nurse Practitioner Family; Referring Provider Nurse Practitioner Family; Visit Provider Internal Medicine Gastroenterology
PROC: 0DJ08ZZ Inspection of Upper Intestinal Tract, Via Natural or Artificial Opening Endoscopic (ICD-10-PCS; CPT 43235; principal; 2022-11-06 08:40)
DX: K21.00 Gastro-esophageal reflux disease with esophagitis, without bleeding (principal); F31.32 Bipolar disorder, current episode depressed, moderate; K44.9 Diaphragmatic hernia without obstruction or gangrene; K22.2 Esophageal obstruction; K31.84 Gastroparesis; F41.9 Anxiety disorder, unspecified; I10 Essential (primary) hypertension; E07.9 Disorder of thyroid, unspecified; Z79.899 Other long term (current) drug therapy; Z87.891 Personal history of nicotine dependence; Z86.711 Personal history of pulmonary embolism
CPT/HCPCS: 43249; 43239; 43255; 88305; 88313; J7120; J2405

== ENCOUNTER 2022-11-27 15:01 | Outpatient (RCR) | payer MEDICARE, SELFPAY ==
[2022-11-09 04:32] VITALS: BMI 20.4
[2022-11-27 16:49] LABS: ALB/GLOB Ratio 0.9 RATIO (0.9-2.4); AST(SGOT) 14 U/L (15-37); Alanine Aminotransfer ALT/SGPT 28 U/L (13-56); Albumin, Serum 3.5 g/dL (3.2-5.0); Alkaline Phosphatase 82 U/L (45-117); Anion Gap 6 (5-15); BUN 27 mg/dL (7-18); BUN/Creat Ratio 14.4 RATIO (10-20); Calcium,Total 10.3 mg/dL (8.5-10.1); Chloride 109 mmol/L (98-107); Creatinine, Serum 1.88 mg/dL (0.55-1.02); EST Glomerular Filtration Rate 28 mL/min (>60); Est Glom Filt Rate - Afr Amer 34 mL/min (>60); Globulin 3.9 g/dL (2.2-4.2); Glucose 126 mg/dL (74-106); Protein, Total 7.4 g/dL (6.4-8.2); Sodium Level 142 mmol/L (136-145)
== END 2022-11-27 18:00 | disposition home or self-care (01) ==
LOC: LAB 15:01
PROVIDERS: Family Provider Nurse Practitioner Family; PCP Nurse Practitioner Family; Referring Provider Nurse Practitioner Family; Visit Provider Nurse Practitioner Family
DX: N18.30 Chronic kidney disease, stage 3 unspecified (principal)
CPT/HCPCS: 36415; 80053

== ENCOUNTER → 2022-12-09 | Outpatient (CLI) | payer MEDICARE, SELFPAY ==
--- NOTE | 2022-12-09 14:05 | RAD_ITS ---
EXAM: XR CHEST, 2 VIEWS CLINICAL INDICATION: PNEUMONIA TECHNIQUE: Frontal and lateral views of the chest. This report was created using [employer] report generation technology. COMPARISON: 10.28.22 FINDINGS: LUNGS AND PLEURAL SPACES: Unremarkable. No consolidation or edema. No pneumothorax. No effusion. HEART: Unremarkable. Cardiac silhouette not enlarged. MEDIASTINUM: Central airways and mediastinal contour are unremarkable. BONES/JOINTS: Unremarkable. SOFT TISSUES: Unremarkable. RAD/Chest PA and Lateral IMPRESSION: No radiographic evidence of acute cardiopulmonary disease. Electronically Signed: Osvaldo Michael MD at 14:31 EST ,
== END | disposition home or self-care (01) ==
LOC: RAD 14:04
PROVIDERS: PCP Nurse Practitioner Family; Referring Provider Nurse Practitioner Family; Visit Provider Nurse Practitioner Family
DX: J18.9 Pneumonia, unspecified organism (principal)
CPT/HCPCS: 71046

== ENCOUNTER 2022-12-15 06:24 | Inpatient (IN) | payer MEDICARE, SELFPAY ==
[2022-12-15] VITALS (11 sets, daily range): BP systolic 101–126; BP diastolic 69–96; PULSE 86–97; RESP 12–18; TEMP 36.3–37.6; O2SAT 93–100; BMI 20.1; BMI 19.5
[2022-12-15 06:58] LABS: Absolute Lymphocyte Count 1.62 X10^3/uL (0.83-4.51); Absolute Neutrophil Count 15.3 X10^3/uL (2.0-7.7); Basophil# 0.05 X10^3/uL; Basophil% 0.3 % (0-1); Eosinophil# 0.13 X10^3/uL; Eosinophils% 0.7 % (0-5); Hematocrit 34.6 % (37-47); Hemoglobin 9.5 g/dL (12.0-15.0); Lymphocyte # 1.62 X10^3/ul (0.83-4.51); Lymphocyte % 9.1 % (19-41); Mean Corp Hgb Conc 27.5 g/dL (32-36); Mean Corpuscular Hgb 28.5 pg (27.0-32.0); Mean Corpuscular Volume 103.9 fL (81-99); Mean Platelet Vol. 10.2 fl (6.2-12.0); Monocyte# 0.64 X10^3/uL; Monocyte% 3.6 % (0-10); NRBC Flagged by Analyzer 0 % (0-5); Neutrophil # 15.31 X10^3/uL (2.7-7.7); Neutrophil % 85.6 % (47-70); Platelet Count 241 K/mm3 (150-450); RBC Distribution Width CV 15.9 % (11.6-14.6); Red Blood Count 3.33 M/mm3 (4.2-5.4); White Blood Count 17.9 K/mm3 (4.4-11.0)
--- NOTE | 2022-12-15 07:10 | EKG12_ITS ---
Test Reason : Blood Pressure : / mmHG Vent. Rate : 091 BPM Atrial Rate : 091 BPM P-R Int : 158 ms QRS Dur : 074 ms QT Int : 332 ms P-R-T Axes : 058 040 063 degrees QTc Int : 408 ms Normal sinus rhythm Normal ECG Confirmed by MARCELLUS COELLO MD ([id number]), video effects editor BRIANA CHUNG ([id number]) on 12/16/2022 8:37:06 AM Referred By: RIGO Confirmed By:MARCELLUS COELLO MD
--- NOTE | 2022-12-15 07:12 | EDS_ITS ---
HPI History of Present Illness Chief Complaint: Weakness Informant: patient and spouse/S.O. Onset/Context/Timing Onset: Yesterday Narrative Narrative: Patient presents via EMS secondary to generalized weakness and falls. at bedside gives most of the history. He states that her balance was off yesterday. Even with his assistance she fell this morning. He had a hard time getting her up and EMS was called. states that she has had problems with balance in the past when her sodium is either too high or too low. He was going to bring her to the hospital today to have labs checked. She denies any injury from her fall. She is resting with her eyes closed and denies any complaints at this time. [facility] Medical History CITLALY (acute kidney injury) Anemia Anxiety Back pain Bipolar disorder Bipolar disorder with moderate depression Bladder disease Delirium due to multiple etiologies Diabetes insipidus Dietary restriction Difficulty chewing Falls Former smoker Gastric reflux Gastroparesis Generalized weakness History of edema History of herpes zoster History of hiatal hernia Hypercalcemia Hypernatremia Hypertension Post-menopausal Pulmonary emboli Secondary hyperparathyroidism of renal origin Tardive dyskinesia Thyroid disease Unsteady gait Wears glasses Home Medications cinacalcet 30 mg tablet 30 mg PO SUMOWEFR THYROID 10/04/20 [History Last Taken 09/05/22] methimazole 5 mg tablet 5 mg PO SUMOWEFR 10/04/20 [History Last Taken 09/05/22] memantine 10 mg tablet 10 mg PO DAILY 01/03/21 [History Last Taken 09/05/22] cholecalciferol (vitamin D3) 50 mcg (2,000 unit) capsule 2,000 unit PO DAILY SUPPLEMENT 01/15/21 [History Last Taken 09/05/22] ferrous sulfate 325 mg (65 mg iron) tablet 325 mg PO BID SUPPLEMENT 01/15/21 [History Last Taken 09/05/22] tramadol 50 mg tablet 50 mg PO BID 01/21/22 [History Last Taken 09/05/22] aripiprazole 20 mg tablet 20 mg PO DAILY 09/05/22 [History Last Taken 09/05/22] denosumab 60 mg/mL subcutaneous syringe (Prolia) 60 mg subcut .Q6MO 09/05/22 [History Last Taken 2 Weeks Ago ~08/22/22] lorazepam 2 mg tablet 2 mg PO 4XD anxiety 09/05/22 [History Last Taken 09/05/22 09:00] losartan 25 mg tablet 25 mg PO DAILY 09/05/22 [History Last Taken 09/05/22] melatonin 10 mg capsule 10 mg PO PRN PRN Sleep 09/05/22 [History Last Taken 09/04/22] oxybutynin chloride 15 mg tablet,extended release 24 hr 15 mg PO DAILY 09/05/22 [History Last Taken 09/05/22] polyethylene glycol 3350 17 gram/dose oral powder (Miralax) 17 g PO DAILY 09/05/22 [History Last Taken 09/05/22] food supplemt, lactose-reduced 0.08 gram-1.5 kcal/mL oral liquid (Ensure Plus High Protein) 120 ml PO TIDCM #120 BOTTLES 09/10/22 [Rx Last Taken Unknown] pantoprazole 40 mg tablet,delayed release (Protonix) 40 mg PO BID #180 tabs 10/29/22 [Rx Last Taken Unknown] metoclopramide HCl 5 mg tablet 5 mg PO QAC #90 tabs 11/05/22 [Rx Last Taken Unknown] Allergy/AdvReac Type Severity Reaction Status Date / Time No Known Allergies Allergy Verified 12/15/22 06:32 Surgical History Hx of esophagogastroduodenoscopy Social History Smoking Status: Former smoker ROS ROS ED Constitutional Constitutional ED: Denies chills or fever(s) Eyes Eyes: Denies change in vision or discharge from eye(s) ENT ENT ED: Denies discharge from eye(s), rhinorrhea or sore throat Cardiovascular Cardiovascular: Denies chest pain or palpitations Respiratory/Chest Respiratory/Chest: Denies cough or dyspnea Gastrointestinal Gastrointestinal: Denies abdominal pain, diarrhea, nausea or vomiting Genitourinary Genitourinary ED: Denies dysuria Musculoskeletal Musculoskeletal: Denies back pain or extremity pain Integumentary Denies Abrasions or rash Neurologic Neurologic: Reports weakness; Denies headache(s) Psychiatric Psychiatric: Denies anxiety or depression Allergic/Immunologic Allergic/Immunologic ED: Denies lip swelling or urticaria EXAM Physical Exam Const Vital Signs: 12/15/22 06:25 12/15/22 06:25 Temperature 99.6 F H Temperature Source Temporal Pulse Rate 97 Respiratory Rate 13 Respiratory Effort Normal Respiratory Pattern Normal Blood Pressure 108/85 H Blood Pressure Mean 92 Pulse Ox 93 Oxygen Delivery Method Room Air Positive well nourished and well developed General Appearance ED: well developed HEENT Reports normocephalic, head/scalp atraumatic and dry mucous membranes Mouth ED: Yes dry mucous membranes Mouth: dry mucous membranes Eyes PERRL and EOMs intact bilaterally Neck supple Chest Wall inspection of chest normal and palpation of chest normal Resp normal respiratory effort and clear to auscultation bilaterally Cardio regular rate and regular rhythm GI non-tender Auscultation: hypoactive bowel sounds Palpation: soft Extremity normal to inspection Neuro oriented x3 and no sensory deficits noted Neuro Narrative: Rests with eyes closed but will open eyes to voice and answer questions appropriately. Sensorium / Orientation: alert Motor Exam: strength 5/5 throughout Psych mental status grossly normal Skin no rashes or lesions noted MDM MDM MDM Narrative Medical decision making narrative: Patient is placed on potline monitor. EKG obtained to evaluate for cardiac ischemia. Lab work obtained to evaluate for leukocytosis, anemia, electrolyte derangement. Patient ordered IV fluids. Chest x-ray obtained as does report she has had a cough. Lab Data Attestation: I reviewed the patient's lab results. Labs: Laboratory Results - last 24 hr 12/15/22 12/15/22 12/15/22 06:30 06:30 07:36 WBC 17.9 H RBC 3.33 L Hgb 9.5 L Hct 34.6 L MCV 103.9 H MCH 28.5 MCHC 27.5 L RDW Std Deviation 61.0 H RDW Coeff of Lee 15.9 H Plt Count 241 MPV 10.2 Immature Gran % (Auto) 0.700 Neut % (Auto) 85.6 H Lymph % (Auto) 9.1 L [place] % (Auto) 3.6 Eos % (Auto) 0.7 Baso % (Auto) 0.3 Absolute Neuts (auto) 15.3 H Absolute Lymphs (auto) 1.62 Nucleated RBC % 0 Sodium 166 H* 168 H* Potassium 5.5 H 5.4 H Chloride 136 H* 139 H* Carbon Dioxide 27.0 27.0 Anion Gap 3 L 2 L BUN 109 H* 100 H Creatinine 3.37 H 3.28 H Estim Creat Clear Calc 12.88 13.24 Est GFR (MDRD) Af Amer 17 L 18 L Est GFR (MDRD) Non-Af 14 L 15 L BUN/Creatinine Ratio 32.3 H 30.5 H Glucose 113 H 120 H Calcium 11.4 H 10.8 H Radiography Chest X-Ray - ED: 1 View, Read by ED Physician and Chronic Changes Diagnostic Testing: Clinical Impression(s) from Imaging Studies Chest X-Ray 12/15/22 07:22 IMPRESSION: Minimal right perihilar infiltrate. Electronically Signed: Cece Oviedo MD at 7:34 EST , EKG Initial EKG: Attestation: I personally reviewed and interpreted this EKG as follows: Interpretation: Sinus Rhythm (Sinus at 91 with no acute ischemia.) Treatment and Re-Evaluation Narrative: EKG from interpretation reveals no ischemia. Chest x-ray per my interpretation reveals chronic changes. Radiology interpretation is reviewed and feels that there is a mild right perihilar infiltrate. CBC returns with elevated white count at 17.9. Given her cough and white count with this perihilar infiltrate a dose of Levaquin is ordered. Chemistry studies returned with a sodium of 166 and a chloride of 136. BUN is 109 and creatinine is 3.37. Patient had received a 500 cc normal saline bolus, however the fluids were then switched to half- normal saline at 150/h. Repeat BMP was obtained to confirm these values. Sodium was confirmed at 168 and chloride at 139. At this time patient has half- normal saline running. I will speak with hospitalist regarding admission. Discharge Plan Triage Chief Complaint: Weakness ED Provider: Janell Bledsoe Dx/Rx/DC Orders Clinical Impression: Weakness, Hypernatremia, CITLALY (acute kidney injury), Lung infiltrate Prescriptions: No Action tramadol 50 mg tablet 50 mg PO BID methimazole 5 MG tablet 5 mg PO SUMOWEFR cinacalcet 30 MG tablet 30 mg PO SUMOWEFR memantine 10 MG tablet 10 mg PO DAILY ferrous sulfate 325 MG tablet 325 mg PO BID cholecalciferol (vitamin D3) 2,000 UNIT capsule 2,000 unit PO DAILY oxybutynin chloride 15 mg tablet extended release 24hr 15 mg PO DAILY Label Comments: take 1 tablet by mouth every morning losartan 25 mg tablet 25 mg PO DAILY Label Comments: take 1 tablet by mouth once daily polyethylene glycol 3350 [Miralax] 17 gram/dose Powder 17 g PO DAILY aripiprazole 20 mg tablet 20 mg PO DAILY Label Comments: take 1 tablet by mouth once daily Prolia 60 mg/mL Syringe 60 mg SUBCUT .Q6MO melatonin 10 mg Capsule 10 mg PO PRN PRN (Reason: Sleep) lorazepam 2 mg tablet 2 mg PO 4XD Label Comments: take 1 tablet by mouth four times a day if needed for anxiety Ensure Plus High Protein 0.08 gram-1.5 kcal/mL Liquid 120 ml PO TIDCM Qty: 120 0RF pantoprazole [Protonix] 40 mg tablet,delayed release (DR/EC) 40 mg PO BID Qty: 180 1RF metoclopramide HCl 5 mg tablet 5 mg PO QAC Qty: 90 1RF Rx Instructions: administer 30 minutes before meals Primary Care Provider: Jay Kincaid NP Referrals: Jay Kincaid NP, [employer]NAGER[employer] [Primary Care Provider] - Disposition Disposition: Acute Care Hospital [facility]
[2022-12-15 07:20] LABS: Anion Gap 3 (5-15); BUN 109 mg/dL (7-18); BUN/Creat Ratio 32.3 RATIO (10-20); Calcium,Total 11.4 mg/dL (8.5-10.1); Chloride 136 mmol/L (98-107); Creatinine, Serum 3.37 mg/dL (0.55-1.02); EST Glomerular Filtration Rate 14 mL/min (>60); Est Glom Filt Rate - Afr Amer 17 mL/min (>60); Estimated Creatinine Clearance 12.88 ml/min; Glucose 113 mg/dL (74-106); Potassium 5.5 mmol/L (3.5-5.1); Sodium Level 166 mmol/L (136-145)
--- NOTE | 2022-12-15 07:22 | RAD_ITS ---
INDICATION: weakness, cough EXAMINATION/TECHNIQUE: X-RAY - XR Chest 1 View AP portable. 7:20 AM. COMPARISON: 12/09/2022 FINDINGS: LINES/DEVICES: None. LUNGS: Minimal patchy infiltrate right perihilar region is new. No consolidation. No pneumothorax. MEDIASTINUM: Aorta tortuous and atherosclerotic. CARDIAC [place]ETTE: Not enlarged. BONES AND SOFT TISSUES: No acute abnormalities. RAD/Chest 1 View (Portable) IMPRESSION: Minimal right perihilar infiltrate. Electronically Signed: Cece Oviedo MD at 7:34 EST ,
[2022-12-15 08:06] LABS: Anion Gap 2 (5-15); BUN 100 mg/dL (7-18); BUN/Creat Ratio 30.5 RATIO (10-20); Calcium,Total 10.8 mg/dL (8.5-10.1); Chloride 139 mmol/L (98-107); Creatinine, Serum 3.28 mg/dL (0.55-1.02); EST Glomerular Filtration Rate 15 mL/min (>60); Est Glom Filt Rate - Afr Amer 18 mL/min (>60); Estimated Creatinine Clearance 13.24 ml/min; Glucose 120 mg/dL (74-106); Potassium 5.4 mmol/L (3.5-5.1); Sodium Level 168 mmol/L (136-145)
[2022-12-15 08:08] LABS: Mucous, Urine 0 SEEN /hpf (<or=2+); Squamous Epithelial Cells - UA 0 SEEN /hpf (5-10)
[2022-12-15 08:12] LABS: Color, Urine Yellow (Yellow); Glucose, Dipstick Normal (Normal); Ketone-Dipstick Negative (Negative); Leukocyte Esterase-Dipstick 100 /ul (Negative); Nitrite-Dipstick Negative (Negative); Occult Blood-Urine 25 /ul (Negative); Protein-Dipstick 30 mg/dl (Negative); Specific Gravity, Urine 1.005 (1.002-1.030); Urine Bilirubin Dipstick Negative (Negative); Urine Clarity Sl. Cloudy (Clear); Urine Urobilinogen Normal (Normal); Urine pH 6.5 (5.0 - 8.0)
[2022-12-15] MEDS: 0.45% Normal Saline 1,000 ML 150 ML IV (08:12)
[2022-12-15 08:16] LABS: Thyroid Stim Hormone (TSH) 0.18 uIU/mL (0.358-3.74)
--- NOTE | 2022-12-15 08:17 | HP.PCM.HOS_ITS ---
HPI - General General Date of Admission: 12/15/22 Date of Service: 12/15/22 Chief Complaint: Weakness/falls HPI Narrative SIMONA HERNANDEZ, is a 72 F who presented to the emergency department at [facility] on 12/15/2021 complaining of generalized weakness and falls. The relayed most of the history. The patient states her balance was off yesterday and even with assistance she fell this morning which was very atypical for her. He states typically she ambulates independently and the only time she needs any help is at night when she goes to the bathroom. He has so much difficulty getting her up that he called EMS. She had an EGD in October at which time she was found to have esophagitis and an esophageal stricture that resulted in dilation. She has been on a soft diet since that time. He was worried that her sodium could be off because previously when she has had issues with her sodium either being too high or too low she has had balance issues. Patient denied any injuries from her fall. Her reports she does have some intermittent memory issues but does not have any significant dementia at baseline. She is treated for bipolar disease and has a chronic tremor from this. He did indicate that she is eating her soft diet as she usually does and taking her supplements and also drinking fluids as recommended. No change in urine output was reported. Vital signs on presentation showed a temperature of 99.6, heart rate was 97, blood pressure was 108/85, respiratory was 13 and oxygen saturations were 93% on room air. Her CBC showed a white count of 17.9, hemoglobin of 9.5, platelet was were normal and she had a left shift of 85.6. Her chemistry panel showed markedly elevated sodium at 168 with a potassium of 5.5, chloride of 139, BUN of 109 and a serum creatinine of 3.37 (baseline 1.5-1.9), glucose was 120 and calcium was 11.4. TSH was obtained and found to be 0.18 but I did assess a free T4 and was normal at 0.99. EKG showed no peaked T waves or acute ischemic changes. Chest x-ray showed minimal right perihilar infiltrate but patient had no pulmonary symptoms. In the emergency department she was treated aggressively with IV fluids at half- normal saline giving her hypernatremia and she was given a dose of Levaquin 750x1. Blood and urine cultures were sent but I am not suspicious for an infection at this time. FOR[facility]LY [facility] Medical History CITLALY (acute kidney injury) Anemia Anxiety Back pain Bipolar disorder Bipolar disorder with moderate depression Bladder disease Delirium due to multiple etiologies Diabetes insipidus Dietary restriction Difficulty chewing Falls Former smoker Gastric reflux Gastroparesis Generalized weakness History of edema History of herpes zoster History of hiatal hernia Hypercalcemia Hypernatremia Hypertension Post-menopausal Pulmonary emboli Secondary hyperparathyroidism of renal origin Severe malnutrition Tardive dyskinesia Thyroid disease Unsteady gait Wears glasses Home Medications cinacalcet 30 mg tablet 30 mg PO SUMOWEFR THYROID 10/04/20 [History Last Taken 12/14/22] methimazole 5 mg tablet 5 mg PO SUMOWEFR . 10/04/20 [History Last Taken 12/14/22] memantine 10 mg tablet 10 mg PO DAILY . 01/03/21 [History Last Taken 12/14/22] cholecalciferol (vitamin D3) 50 mcg (2,000 unit) capsule 2,000 unit PO DAILY SUPPLEMENT 01/15/21 [History Last Taken 12/14/22] ferrous sulfate 325 mg (65 mg iron) tablet 325 mg PO BID SUPPLEMENT 01/15/21 [History Last Taken 12/14/22] tramadol 50 mg tablet 50 mg PO BID PAIN 01/21/22 [History Last Taken 12/14/22] denosumab 60 mg/mL subcutaneous syringe (Prolia) 60 mg subcut .Q6MO . 09/05/22 [History Last Taken 08/27/22] lorazepam 2 mg tablet 2 mg PO 4XD . 09/05/22 [History Last Taken 12/14/22] losartan 25 mg tablet 25 mg PO DAILY . 09/05/22 [History Last Taken 12/14/22] oxybutynin chloride 15 mg tablet,extended release 24 hr 15 mg PO DAILY . 1 [History Last Taken 12/14/22] polyethylene glycol 3350 17 gram/dose oral powder (Miralax) 17 g PO DAILY LAXATIVE 09/05/22 [History Last Taken 09/05/22] ascorbic acid (vitamin C) 1,000 mg tablet (Vitamin C) 1 g PO DAILY SUPPLEMENT 12/15/22 [History Last Taken 12/14/22] lamotrigine 100 mg tablet 150 mg PO DAILY . 12/15/22 [History Last Taken 12/14/22] metoclopramide HCl 5 mg tablet 5 mg PO BID . 12/15/22 [History Last Taken 12/14/22] pantoprazole 40 mg tablet,delayed release (Protonix) 40 mg PO BID GERD 12/15/22 [History Last Taken 12/14/22] Allergy/AdvReac Type Severity Reaction Status Date / Time No Known Allergies Allergy Verified 12/15/22 06:32 unable to obtain (Patient uncertain at the time of admission) Surgical History (Updated 12/15/22 @ 17:[address] Portia Shelby DO) History of esophagogastroduodenoscopy (EGD) Hx of esophagogastroduodenoscopy Social History (Updated 12/15/22 @ 17:[address] Portia Shelby DO) household members: spouse housing: house Smoking Status: Former smoker alcohol intake: never substance use type: does not use additional social history: Ambulates at baseline without assistive device ROS Constitutional Constitutional: Reports fatigue and weakness; Denies anorexia, change in weight, chills, fever(s), malaise, night sweats or other Eyes Eyes: Denies blurry vision, change in eye color, change in vision, discharge from eye(s), double vision, erythema, eye pain, loss of vision or other ENT HEENT: Denies abnormal hearing, dysphagia, ear pain, epistaxis, headache(s), hearing loss, nasal congestion, nasal discharge, post nasal drip, sinus pre ssure, sore throat or other Cardiovascular Cardiovascular: Denies chest pain, claudication, dyspnea on exertion, edema, lightheadedness, orthopnea, palpitations, paroxysmal nocturnal dyspnea, rapid heart rate, syncope or other Respiratory/Chest Respiratory/Chest: Denies cough, dyspnea, excessive phlegm production, hemoptysis, productive cough, shortness of breath at rest, shortness of breath with exertion, wheezing or other Gastrointestinal Gastrointestinal: Denies abdominal pain, coffee ground emesis, constipation, diarrhea, dyspepsia, hematemesis, hematochezia, loose stools, melena, nausea, vomiting or other Genitourinary Genitourinary: Reports urinary incontinence; Denies burning urination, d ifficulty urinating, dysuria, hematuria, nocturia, urinary frequency, urinary hesitancy, urinary urgency or other Musculoskeletal Musculoskeletal: Reports back pain, joint pain and joint stiffness; Denies arthralgias, joint swelling, myalgias, neck pain or other Neurologic Neurologic: Reports abnormal gait and other Details: Significant generalized weakness ; Denies abnormal speech, confusion, disequilibrium, dizziness, focal weakness, headache(s), numbness, paresthesias, seizure-like activity, seizures, syncope, tingling or tremor(s) Psychiatric Psychiatric: Reports anxiety and depression; Denies homicidal ideation, suicidal ideation or other Endocrine Endocrinology: Denies change in body appearance, cold intolerance, excessive sweating, heat intolerance, polydipsia, polyuria or other Hematologic/Lymphatic Hematologic/Lymphatic: Denies anemia, easy bleeding, easy bruising, lymphadenopathy or other Allergic/Immunologic Allergic/Immunologic: Denies rhinitis, hives, eczemia, asthma or other Vital Signs Vital Signs Vital Signs: 12/15/22 06:25 12/15/22 06:25 Temperature 99.6 F H Temperature Source Temporal Pulse Rate 97 Respiratory Rate 13 Respiratory Effort Normal Respiratory Pattern Normal Blood Pressure 108/85 H Blood Pressure Mean 92 Pulse Ox 93 Oxygen Delivery Method Room Air Weight Weight: 54.885 kg Body Mass Index (BMI) 20.1 Physical Exam Const alert and no apparent distress Constitutional Narrative: Elderly white female lying in bed, appears somewhat disheveled, severely dehydrated, oriented to self, place, and president of [facility], confused on month and year HEENT normocephalic and head/scalp atraumatic HEENT Narrative: Temporal wasting, Mallampati 2, mucous membranes are severely dry, no thrush Mouth: moist mucous membranes abnormal cracked and parched Eyes PERRL and EOMs intact bilaterally Eyes Narrative: Mildly pale to conjunctiva bilaterally, no scleral icterus Neck no lymphadenopathy, supple, no JVD and no carotid bruits Neck Narrative: Trachea midline, no thyroid enlargement Resp normal respiratory effort, no retractions, no use of accessory muscles and clear to auscultation bilaterally Auscultation: Negative for crackles, rhonchi or wheezes Cardio regular rate, regular rhythm, S1 normal heart sound, S2 normal heart sound, no murmurs, no rub, no gallops and no clicks GI normal to inspection, nondistended, normoactive bowel sounds, soft to palpation and non-tender Extremity no clubbing, cyanosis or edema Extremity Narrative: 2+ pedal pulses Skin no rashes or lesions noted, no wounds, No skin turgor normal, no jaundice, no petechiae and no mottling Skin Narrative: Tenting with abnormal turgor, skin is pale Neuro CN's II-XII intact bilaterally, moves all extremities and no focal motor deficits Neuro Narrative: Significant generalized weakness, speech is slow and deliberate but normal otherwise Psych Psych Narrative: Affect is extremely flat and mood seems depressed Results Lab / Micro Data Attestation: I reviewed the patient's lab results. Result Diagrams: 12/15/22 06:30 12/15/22 14:30 Labs: Laboratory Results - last 24 hr 12/15/22 06:30: WBC 17.9 H, RBC 3.33 L, Hgb 9.5 L, Hct 34.6 L, MCV 103.9 H, MCH 28.5, MCHC 27.5 L, RDW Std Deviation 61.0 H, RDW Coeff of Lee 15.9 H, Plt Count 241, MPV 10.2, Immature Gran % (Auto) 0.700, Neut % (Auto) 85.6 H, Lymph % (Auto) 9.1 L, Sampson % (Auto) 3.6, Eos % (Auto) 0.7, Baso % (Auto) 0.3, Absolute Neuts (auto) 15.3 H, Absolute Lymphs (auto) 1.62, Nucleated RBC % 0 12/15/22 06:30: Sodium 166 H*, Potassium 5.5 H, Chloride 136 H*, Carbon Dioxide 27.0, Anion Gap 3 L, BUN 109 H*, Creatinine 3.37 H, Estim Creat Clear Calc 12.88, Est GFR (MDRD) Af Amer 17 L, Est GFR (MDRD) Non-Af 14 L, BUN/Creatinine Ratio 32.3 H, Glucose 113 H, Calcium 11.4 H 12/15/22 06:30: TSH 0.18 L 12/15/22 07:36: Sodium 168 H*, Potassium 5.4 H, Chloride 139 H*, Carbon Dioxide 27.0, Anion Gap 2 L, BUN 100 H, Creatinine 3.28 H, Estim Creat Clear Calc 13.24, Est GFR (MDRD) Af Amer 18 L, Est GFR (MDRD) Non-Af 15 L, BUN/Creatinine Ratio 3 0.5 H, Glucose 120 H, Calcium 10.8 H 12/15/22 08:00: Urine Color Yellow, Urine Clarity Sl. Cloudy, Urine pH 6.5, Ur Specific [place] 1.005, Urine Protein 30 H, Urine Glucose (UA) Normal, Urine Ketones Negative, Urine Occult Blood 25 H, Urine Nitrite Negative, Urine Bilirubin Negative, Urine Urobilinogen Normal, Ur Leukocyte Esterase 100 H Radiology Impression Chest X-Ray 12/15/22 07:22 IMPRESSION: Minimal right perihilar infiltrate. Electronically Signed: Cece Oviedo MD at 7:34 EST , Assessment & Plan Assessment/Plan (1) CITLALY (acute kidney injury): (2) CITLALY (acute kidney injury): (3) Hypernatremia: (4) Hyperchloremia: (5) Leukocytosis: (6) Hyperkalemia: (7) Hypercalcemia: (8) Abnormal TSH: (9) Severe dehydration: (10) Severe malnutrition: (11) Dysphagia: PLAN: Plan CITLALY on CKD stage IIIb -Baseline serum creatinine between 1.5 and 1.9 -Serum creatinine on presentation was 3.37 -Appears related to severe dehydration -Hold home losartan -Aggressive IV hydration with 100 cc of half-normal saline per hour -Continue to follow serum creatinine -No need for renal replacement therapy or nephrology consult at this time -Tinoco placement for accurate I's and O's -If creatinine does not improve with hydration will need to pursue further work- up Severe hypernatremia/hyperchloremia secondary to severe dehydration -Appears related to severe dehydration -Patient clinically looks extremely dry on exam -We will hydrate with half-normal saline at 100 cc/h -Patient is not on any diuretics -I suspect that patient is most likely not getting enough oral intake -Patient is getting a BMP every 6 hours Hyperkalemia -Hold losartan -Suspect related to acute kidney injury and severe dehydration -No EKG wave changes -Monitor on telemetry -IV fluids as noted above -Repeat serial BMPs Hypercalcemia -Secondary to dehydration -Repeat lab in a.m. Abnormal TSH -TSH on admission was 0.18 -Patient with history of hyperthyroidism -I did obtain a free T4 it was noted to be normal at 0.99 -Suspect euthyroid sick Dysphagia/esophagitis/esophageal stenosis/nondiabetic gastroparesis -EGD done on 11/06/2022 showed grade C erosive esophagitis that was treated with argon plasma coagulation as well as a benign-appearing esophageal stenosis that was dilated and a moderately severe erosive esophagitis that was biopsied -Continue home Protonix -Continue home Reglan -Patient has been restricted to a liquid diet per discussion with her I suspect this is the etiology for her severe dehydration and decreased oral intake -Consult GI for possible repeat EGD -Case discussed with gastroenterology Severe malnutrition -Start supplements 1 p.o. intake is able to be initiated -Consult dietitian -If patient is not able to tolerate p.o. intake patient may need PEG Osteoporosis -Continue Prolia as an outpatient -Continue cholecalciferol History of hyperthyroidism -Continue methimazole Chronic anemia -Macrocytic -Patient is on iron supplementation at baseline--> continue -Continue oral vitamin C Leukocytosis -Suspect related to severe hemoconcentration -Repeat in a.m. -No need for current antibiotics -Patient was given Levaquin in the emergency department--> with her renal function this should cover her for some time Primary hyperparathyroidism -Continue cinaclcet Urinary incontinence -Hold home oxybutynin -Patient have a Tinoco Constipation -Continue home MiraLAX Chronic pain -Ultram on hold with renal function -We will reevaluate as kidney function improves Bipolar disorder -Continue home lorazepam -Continue home Lamictal -Mood currently seems stable -Does have baseline tremor from medication -Patient with history of renal toxicity from lithium Cognitive impairment -Per patient does have some memory issues -Continue home memantine DVT prophylaxis -Heparin twice daily CODE STATUS -Full code as verified on admission Charges/Coding Visit Charges Inpatient E&M: 06152 Init Hosp L3
[2022-12-15 08:19] LABS: Bacteria 1+ /hpf (None Seen); Red Blood Cells-Urine 0-5 SEEN /hpf (0-5); White Blood Cells 10-25 SEEN /hpf (0-5)
[2022-12-15 08:47] LABS: Lactic Acid 0.6 mmol/L (0.4-1.9)
[2022-12-15] MEDS: levoFLOXacin IV 750 MG/150 ML BAG 100 MG IV (09:28)
[2022-12-15] MEDS: 0.45% Normal Saline 1,000 ML 15 ML IV (12:07)
--- NOTE | 2022-12-15 13:27 | OP.CCLET_ITS ---
12/15/2022 Jay Kincaid Re : Upper GI endoscopy procedure for Fior Escamilla Dear Codi This procedure was performed on Thursday, December 15, 2022. My impressions and recommendations are as follows: Impressions : - LA Grade D erosive esophagitis. Treated with argon plasma coagulation (APC). - Benign-appearing esophageal stenosis. Dilated. - Medium-sized hiatal hernia. - Normal second portion of the duodenum. Recommendations : - Await pathology results. - Repeat upper endoscopy in 4 weeks to evaluate the response to therapy. - Continue present medications. My findings are described in the full procedure note, which is enclosed. If I can be of further assistance, please feel free to contact me at . Sincerely, Francis Verma, 12/15/2022 1:26:29 PM This report has been signed electronically.
--- NOTE | 2022-12-15 13:27 | OP.EGD_ITS ---
Patient Name: Fior Escamilla Procedure Date: 12/15/2022 12:59 PM Date of : 1950 Age: 72 Procedure: Upper GI endoscopy Indications: Dysphagia Providers: Francis Verma DO Medicines: Monitored Anesthesia Care Patient Profile: This is a 72 year old female. Refer to note in patient chart for documentation of history and physical. Patient has symptoms of dysphagia with both liquids and solids. She is status post EGD for dilation within the past three months. Complications: No immediate complications. Procedure: Pre-Anesthesia Assessment: - Prior to the procedure, a History and Physical was performed, and patient medications and allergies were reviewed. The patient is competent. The risks and benefits of the procedure and the sedation options and risks were discussed with the patient. All questions were answered and informed consent was obtained. Patient identification and proposed procedure were verified by the physician. Mental Status Examination: alert and oriented. Airway Examination: normal oropharyngeal airway and neck mobility. Respiratory Examination: clear to auscultation. CV Examination: normal. Prophylactic Antibiotics: The patient does not require prophylactic antibiotics. Prior Anticoagulants: The patient has taken no previous anticoagulant or antiplatelet agents. ASA Grade Assessment: II - A patient with mild systemic disease. After reviewing the risks and benefits, the patient was deemed in satisfactory condition to undergo the procedure. The anesthesia plan was to use monitored anesthesia care (MAC). Immediately prior to administration of medications, the patient was re-assessed for adequacy to receive sedatives. The heart rate, respiratory rate, oxygen saturations, blood pressure, adequacy of pulmonary ventilation, and response to care were monitored throughout the procedure. The physical status of the patient was re-assessed after the procedure. After obtaining informed consent, the endoscope was passed under direct vision. Throughout the procedure, the patient's blood pressure, pulse, and oxygen saturations were monitored continuously. The gastroscope was introduced through the mouth, and advanced to the second part of duodenum. The upper GI endoscopy was accomplished without difficulty. The patient tolerated the procedure well. Scope In: 1:09:13 PM Scope Out: 1:21:19 PM Total Procedure Duration Time 0 hours 12 minutes 6 seconds Findings: LA Grade D (one or more mucosal breaks involving at least 75% of esophageal circumference) esophagitis with bleeding was found 30 to 38 cm from the incisors. Coagulation for hemostasis using argon plasma at 0.4 liters/minute and 20 bahena was successful. Estimated blood loss was minimal. One benign-appearing, intrinsic stenosis was found 33 to 35 cm from the incisors. This stenosis was severe and. The stenosis was traversed after dilation. A TTS dilator was passed through the scope. Dilation with an 18-19-20 mm balloon dilator was performed to 18 mm. The dilation site was examined and showed complete resolution of luminal narrowing. Estimated blood loss was minimal. A medium-sized hiatal hernia was present. No other significant abnormalities were identified in a careful examination of the stomach. The second portion of the duodenum was normal. Impression: - LA Grade D erosive esophagitis. Treated with argon plasma coagulation (APC). - Benign-appearing esophageal stenosis. Dilated. - Medium-sized hiatal hernia. - Normal second portion of the duodenum. Recommendation: - Await pathology results. - Repeat upper endoscopy in 4 weeks to evaluate the response to therapy. - Continue present medications. Procedure Code(s): --- Professional --- 77916, 59, Esophagogastroduodenoscopy, flexible, transoral; with control of bleeding, any method 38242, Esophagogastroduodenoscopy, flexible, transoral; with transendoscopic balloon dilation of esophagus (less than 30 mm diameter) 57286, 59, Esophagogastroduodenoscopy, flexible, transoral; with biopsy, single or multiple CPT copyright 2017 [employer]. All rights reserved. The codes documented in this report are preliminary and upon outpatient coder review may be revised to meet current compliance requirements. Francis Verma DO 12/15/2022 1:26:29 PM This report has been signed electronically. Number of Addenda: 0 Note Initiated On: 12/15/2022 12:59 PM
[2022-12-15] MEDS: Memantine Hydrochloride 10 MG Tablet PO (14:23)
[2022-12-15] MEDS: Heparin Injection (Vial) 5,000 UNIT/ML VIAL 5000 UNIT SC ×2 (14:23→20:22)
[2022-12-15 14:59] LABS: T4 Free Direct 0.99 ng/dL (0.76-1.46)
[2022-12-15 15:04] LABS: Anion Gap 2 (5-15); BUN 91 mg/dL (7-18); BUN/Creat Ratio 29.7 RATIO (10-20); Calcium,Total 10.5 mg/dL (8.5-10.1); Chloride 137 mmol/L (98-107); Creatinine, Serum 3.06 mg/dL (0.55-1.02); EST Glomerular Filtration Rate 16 mL/min (>60); Est Glom Filt Rate - Afr Amer 19 mL/min (>60); Estimated Creatinine Clearance 13.75 ml/min; Glucose 100 mg/dL (74-106); Potassium 5.2 mmol/L (3.5-5.1); Sodium Level 166 mmol/L (136-145)
--- NOTE | 2022-12-15 16:41 | EX.PCM.CON.G ---
HPI Consult Data Date of Consult: 12/15/22 HPI Narrative Reason for Consultation: Dysphagia HPI Narrative: SIMONA HERNANDEZ, is a 72 F who presents to the ED with severe dehydration and progressive esophageal dysphagia. She has a history of severe esophagitis, esophageal strictures. She was hospitalized 09/05/22-09/10/22 for aspiration pneumonia.? On 09/08/2022 EGD which revealed LA grade D esophagitis with bleeding which he treated with successfully using bipolar probe.? She has a small hiatal hernia.? He recommended pantoprazole 40 mg twice daily.? He had a gastric emptying study which is abnormal, she has delayed emptying at 73 minutes.? She is accompanied by her , he reports most of her history.? She is having frequent vomiting which occurs after regurgitating her food. Vomited in the middle of last night. Eating soft foods. When she eats then food regurgitates and then she vomits. Taking pills in apple sauce which helps her to be able to swallow them. Some bloating. Bowels are normal. No melena or hematochezia. She had a modified barium swallow study which revealed esophageal retention of fluid in the lower esophagus with retrograde flow remaining below the UES, but this retention was cleared with thin liquid wash.? Barium tablet remains trapped in the esophagus. 09/08/22 EGD: LA Grade D reflux esophagitis, small hiatal hernia, esophageal candidiasis 09/09/22 gastric emptying study: delayed emptying 73 minutes [facility] Medical History CITLALY (acute kidney injury) Anemia Anxiety Back pain Bipolar disorder Bipolar disorder with moderate depression Bladder disease Delirium due to multiple etiologies Diabetes insipidus Dietary restriction Difficulty chewing Falls Former smoker Gastric reflux Gastroparesis Generalized weakness History of edema History of herpes zoster History of hiatal hernia Hypercalcemia Hypernatremia Hypertension Post-menopausal Pulmonary emboli Secondary hyperparathyroidism of renal origin Tardive dyskinesia Thyroid disease Unsteady gait Wears glasses Home Medications cinacalcet 30 mg tablet 30 mg PO SUMOWEFR THYROID 10/04/20 [History Last Taken 12/14/22] methimazole 5 mg tablet 5 mg PO SUMOWEFR . 10/04/20 [History Last Taken 12/14/22] memantine 10 mg tablet 10 mg PO DAILY . 01/03/21 [History Last Taken 12/14/22] cholecalciferol (vitamin D3) 50 mcg (2,000 unit) capsule 2,000 unit PO DAILY SUPPLEMENT 01/15/21 [History Last Taken 12/14/22] ferrous sulfate 325 mg (65 mg iron) tablet 325 mg PO BID SUPPLEMENT 01/15/21 [History Last Taken 12/14/22] tramadol 50 mg tablet 50 mg PO BID PAIN 01/21/22 [History Last Taken 12/14/22] denosumab 60 mg/mL subcutaneous syringe (Prolia) 60 mg subcut .Q6MO . 09/05/22 [History Last Taken 08/27/22] lorazepam 2 mg tablet 2 mg PO 4XD . 09/05/22 [History Last Taken 12/14/22] losartan 25 mg tablet 25 mg PO DAILY . 09/05/22 [History Last Taken 12/14/22] oxybutynin chloride 15 mg tablet,extended release 24 hr 15 mg PO DAILY . 09/05/22 [History Last Taken 12/14/22] polyethylene glycol 3350 17 gram/dose oral powder (Miralax) 17 g PO DAILY LAXATIVE 09/05/22 [History Last Taken 09/05/22] ascorbic acid (vitamin C) 1,000 mg tablet (Vitamin C) 1 g PO DAILY SUPPLEMENT 12/15/22 [History Last Taken 12/14/22] lamotrigine 100 mg tablet 150 mg PO DAILY . 12/15/22 [History Last Taken 12/14/22] metoclopramide HCl 5 mg tablet 5 mg PO BID . 12/15/22 [History Last Taken 12/14/22] pantoprazole 40 mg tablet,delayed release (Protonix) 40 mg PO BID GERD 12/15/22 [History Last Taken 12/14/22] Allergy/AdvReac Type Severity Reaction Status Date / Time No Known Allergies Allergy Verified 12/15/22 06:32 Surgical History Hx of esophagogastroduodenoscopy Social History Smoking Status: Former smoker ROS Constitutional Constitutional: Reports malaise; Denies chills, fatigue or fever(s) Eyes Eyes: Denies blurry vision ENT HEENT: Denies headache(s) or nasal discharge Cardiovascular Cardiovascular: Reports edema; Denies chest pain, dyspnea on exertion or syncope Respiratory/Chest Respiratory/Chest: Reports cough; Denies shortness of breath at rest or shortness of breath with exertion Gastrointestinal Gastrointestinal: Reports nausea and vomiting; Denies constipation or diarrhea Genitourinary Genitourinary: Denies dysuria Neurologic Neurologic: Denies focal weakness, numbness or tremor(s) Psychiatric Psychiatric: Denies anxiety or depression Physical Exam Narrative GENERAL: cooperative HEENT: Atraumatic; normocephalic EYES; Anicteric, Normal Conjunctiva NECK; supple, normal thyroid, RESPIRATORY: Diminished to auscultation CARDIOVASCULAR: Regular S1 S2, GI: soft, normoactive bowel sounds, : No Renal angle tenderness; EXTREMITIES: No edema, no clubbing, MUSCULOSKELETAL: no muscle wasting NEURO: Awake; no lateralizing signs. SKIN: No Rash PSYCH; Flat affect Medical Records Data Medical Nutrition Assessment Dietitian: Malnutrition Criteria Met Start: 12/15/22 12:23 Freq: Status: Active Protocol: Document 12/15/22 12:[address] [facility] (Rec: 12/15/22 12:[address] [facility] [id number]) Nutrition Malnutrition Evidence of Malnutrition Exists Yes Malnutrition (severe): Acute Illness/Injury Evidenced By Suboptimal Energy Intake ( Severe),Weight Loss (Severe) Clinical Problem Acute Disease or Injury Related Malnutrition Etiology severe related to inadequate oral intake Signs/Symptoms as evidenced by 16.3% wt loss x 3 mo and pt meeting <75% of est nutritional needs Status Active Problem Recommendation Dietitian Recommendations/Changes As medically able, rec diet as tolerated to liberal regular diet - easy to chew consistency Continue ensure plus high protein 3x/day w/ medpass Will follow up and interview pt at time of follow up and make additional nutrition rec as indicated. Lab / Micro Data Result Diagrams: 12/15/22 06:30 12/15/22 14:30 Labs: Laboratory Results - last 24 hr 12/15/22 06:30: WBC 17.9 H, RBC 3.33 L, Hgb 9.5 L, Hct 34.6 L, MCV 103.9 H, MCH 28.5, MCHC 27.5 L, RDW Std Deviation 61.0 H, RDW Coeff of Lee 15.9 H, Plt Count 241, MPV 10.2, Immature Gran % (Auto) 0.700, Neut % (Auto) 85.6 H, Lymph % (Auto) 9.1 L, [place] % (Auto) 3.6, Eos % (Auto) 0.7, Baso % (Auto) 0.3, Absolute Neuts (auto) 15.3 H, Absolute Lymphs (auto) 1.62, Nucleated RBC % 0 12/15/22 06:30: Sodium 166 H*, Potassium 5.5 H, Chloride 136 H*, Carbon Dioxide 27.0, Anion Gap 3 L, BUN 109 H*, Creatinine 3.37 H, Estim Creat Clear Calc 12.88, Est GFR (MDRD) Af Amer 17 L, Est GFR (MDRD) Non-Af 14 L, BUN/Creatinine Ratio 32.3 H, Glucose 113 H, Calcium 11.4 H 12/15/22 06:30: TSH 0.18 L 12/15/22 07:36: Sodium 168 H*, Potassium 5.4 H, Chloride 139 H*, Carbon Dioxide 27.0, Anion Gap 2 L, BUN 100 H, Creatinine 3.28 H, Estim Creat Clear Calc 13.24, Est GFR (MDRD) Af Amer 18 L, Est GFR (MDRD) Non-Af 15 L, BUN/Creatinine Ratio 30.5 H, Glucose 120 H, Calcium 10.8 H 12/15/22 08:00: Urine Color Yellow, Urine Clarity Sl. Cloudy, Urine pH 6.5, Ur Specific [place] 1.005, Urine Protein 30 H, Urine Glucose (UA) Normal, Urine Ketones Negative, Urine Occult Blood 25 H, Urine Nitrite Negative, Urine Bilirubin Negative, Urine Urobilinogen Normal, Ur Leukocyte Esterase 100 H, Urine RBC 0-5 SEEN, Urine WBC 10-25 SEEN, Ur Squamous Epith Cells 0 SEEN, Urine Bacteria 1+, Urine Mucus 0 SEEN 12/15/22 08:00: Urine Color Cancelled, Urine Clarity Cancelled, Urine pH Cancelled, Ur Specific [place] Cancelled, U Specif Grav (Refrac) Cancelled, Urine Protein Cancelled, Urine Glucose (UA) Cancelled, Urine Ketones Cancelled, Urine Occult Blood Cancelled, Urine Nitrite Cancelled, Urine Bilirubin Cancelled, Urine Urobilinogen Cancelled, Ur Leukocyte Esterase Cancelled, Urine RBC Cancelled, Urine WBC Cancelled, Ur Squamous Epith Cells Cancelled, Ur Transition Epith Cell Cancelled, Ur Renal Epithelial Cell Cancelled, Calcium Oxalate Crystal Cancelled, Uric Acid Crystals Cancelled, Triple Phos Crystals Cancelled, Other Crystals Cancelled, Amorphous Sediment Cancelled, Urine Bacteria Cancelled, Hyaline Casts Cancelled, Fine Granular Casts Cancelled, Coarse Granular Casts Cancelled, Waxy Casts Cancelled, RBC Casts Cancelled, WBC Casts Cancelled, Urine Mucus Cancelled, Urine Trichomonas Cancelled, Urine Yeast Cancelled 12/15/22 08:13: Lactic Acid 0.6 12/15/22 14:30: Sodium 166 H*, Potassium 5.2 H, Chloride 137 H*, Carbon Dioxide 27.0, Anion Gap 2 L, BUN 91 H, Creatinine 3.06 H, Estim Creat Clear Calc 13.75, Est GFR (MDRD) Af Amer 19 L, Est GFR (MDRD) Non-Af 16 L, BUN/Creatinine Ratio 29.7 H, Glucose 100, Calcium 10.5 H 12/15/22 14:30: Free T4 0.99 Radiology Impression Chest X-Ray 12/15/22 07:22 IMPRESSION: Minimal right perihilar infiltrate. Electronically Signed: Cece Oviedo MD at 7:34 EST , Assessment & Plan Assessment/Plan (1) Dysphagia: PLAN: Dysphagia is likely contributing to progressive malnutrition. I had a long talk with her and explained to her that a lot of the mucus that she gets in the back of her throat pain cannot clear secondary to this esophageal stricture. I think she has uncontrolled gastroesophageal reflux disease due to the fact that she has gastroparesis. I discussed with him possibly putting a feeding through as an intermediary until we can figure out how to keep her esophagus open. With frequent dilation with an esophageal stent. I did not feel that Botox was included remedy for her at this time because she has never had esophageal manometry. She should undergo esophageal manometry prior to her being considered for Botox therapy to see if there is any abnormalities of her lower esophageal sphincter. She also has a hiatal hernia and gastroparesis which I think is contributing to her symptoms. She will undergo an upper endoscopy and will be able to make better recommendations after the endoscopy. Charges/Coding Visit Charges Inpatient E&M: 48133 Init Hosp L2
[2022-12-15] MEDS: 0.45% Normal Saline 1,000 ML 100 ML IV (17:21)
[2022-12-15] MEDS: Ensure Plus High Protein 120 ML LIQUID PO (17:21)
--- NOTE | 2022-12-15 22:19 | PCM.PN.BLA ---
Progress Note With gram positive rods and leukocytosis will start patient on ampicillin IV adjusted for creatinine clearance.
[2022-12-16 02:13] VITALS: BP 105/69; PULSE 84; RESP 16; TEMP 37.7; O2SAT 98
[2022-12-16] MEDS: 0.45% Normal Saline 1,000 ML 100 ML IV (03:12)
[2022-12-16 03:23] LABS: Absolute Lymphocyte Count 0.95 X10^3/uL (0.83-4.51); Basophil# 0.02 X10^3/uL; Basophil% 0.2 % (0-1); Eosinophil# 0.22 X10^3/uL; Eosinophils% 2.1 % (0-5); Hematocrit 32.5 % (37-47); Hemoglobin 8.8 g/dL (12.0-15.0); Lymphocyte # 0.95 X10^3/ul (0.83-4.51); Lymphocyte % 8.9 % (19-41); Mean Corp Hgb Conc 27.1 g/dL (32-36); Mean Corpuscular Volume 103.5 fL (81-99); Mean Platelet Vol. 10.2 fl (6.2-12.0); Monocyte# 0.41 X10^3/uL; Monocyte% 3.8 % (0-10); NRBC Flagged by Analyzer 0 % (0-5); Neutrophil # 9.04 X10^3/uL (2.7-7.7); Neutrophil % 84.3 % (47-70); Platelet Count 188 K/mm3 (150-450); RBC Distribution Width CV 15.9 % (11.6-14.6); RBC Distribution Width SD 60.5 fl (35.1-43.9); Red Blood Count 3.14 M/mm3 (4.2-5.4); White Blood Count 10.7 K/mm3 (4.4-11.0)
[2022-12-16 03:51] LABS: ALB/GLOB Ratio 0.5 RATIO (0.9-2.4); AST(SGOT) 15 U/L (15-37); Alanine Aminotransfer ALT/SGPT 37 U/L (13-56); Albumin, Serum 2.1 g/dL (3.2-5.0); Alkaline Phosphatase 85 U/L (45-117); Anion Gap 5 (5-15); BUN 87 mg/dL (7-18); BUN/Creat Ratio 30.4 RATIO (10-20); Calcium,Total 10.3 mg/dL (8.5-10.1); Chloride 137 mmol/L (98-107); Creatinine, Serum 2.86 mg/dL (0.55-1.02); EST Glomerular Filtration Rate 17 mL/min (>60); Est Glom Filt Rate - Afr Amer 21 mL/min (>60); Estimated Creatinine Clearance 14.71 ml/min; Globulin 3.9 g/dL (2.2-4.2); Glucose 127 mg/dL (74-106); Phosphorus 3.7 mg/dL (2.5-4.9); Sodium Level 167 mmol/L (136-145)
[2022-12-16 08:15] VITALS: BP 118/83; PULSE 95; RESP 16; TEMP 37.9; O2SAT 97
[2022-12-16] MEDS: Memantine Hydrochloride 10 MG Tablet PO (09:05)
[2022-12-16] MEDS: Ensure Plus High Protein 120 ML LIQUID PO (09:05)
[2022-12-16] MEDS: Heparin Injection (Vial) 5,000 UNIT/ML VIAL 5000 UNIT SC ×2 (09:05→20:37)
[2022-12-16] MEDS: lamoTRIgine 150 MG Tablet PO (09:13)
--- NOTE | 2022-12-16 14:09 | PN.HOSP_ITS ---
Reason for Visit Reason for Visit: Diagnoses Elevated white blood cell count, unspecified (12/15/22) Unspecified severe protein-calorie malnutrition (12/15/22) Hypercalcemia (12/15/22) Dehydration (12/15/22) Hyperosmolality and hypernatremia (12/15/22) Hyperkalemia (12/15/22) Other disorders of electrolyte and fluid balance, not elsewhere classified (12/15/22) Acute kidney failure, unspecified (12/15/22) Dysphagia, unspecified (12/15/22) Other specified abnormal findings of blood chemistry (12/15/22) Subjective Subjective Patient was able to eat a regular diet this morning without any difficulty. She states she is feeling better overall. Clinically her labs are improving significantly and she appears much improved since admission. was at the bedside and I updated him on the EGD that was performed yesterday along with the dilation, her change in diet status, as well as her bacteremia and improvement in renal function and sodium/potassium/chloride. Objective Data Objective Data Vital Signs: Vital Signs Temp Pulse Resp BP Pulse Ox O2 Del Method 100.3 F H 95 16 118/83 H 97 Room Air 12/16/22 08:15 12/16/22 08:15 12/16/22 08:15 12/16/22 08:15 12/16/22 08:15 12/16/22 09:20 Oxygen Delivery Method Room Air Weight: 53.2 kg Body Mass Index (BMI) 19.5 Intake & Output: Intake and Output for Last 24 Hours 12/14/22 12/15/22 12/16/22 23:59 23:59 23:59 Intake Total 1788.75 / 1884.75 1811 / 1811 Output Total 2080 / 2080 1200 / 1200 Balance -291.25 / -195.25 611 / 611 Medical Nutrition Assessment Dietitian: Malnutrition Criteria Met Start: 12/15/22 12:23 Freq: Status: Active Protocol: Document 12/16/22 11:46 AG (Rec: 12/16/22 11:46 AG Desktop) Nutrition Malnutrition Evidence of Malnutrition Exists Yes Malnutrition (severe): Chronic Evidenced By Suboptimal Energy Intake ( Severe),Weight Loss (Severe) Clinical Problem Chronic Disease or Condition Related Malnutrition Etiology severe, chronic malnutrition related to inadequate oral intake d/t esophageal stenosis Signs/Symptoms as evidenced by estimated PO intake meeting <75% of estimated energy needs > 3 months; unintentional wt loss of 30.7#/21% wt loss x 4 months [employer] Status Active Problem Acute Disease or Injury Related Malnutrition Etiology - Signs/Symptoms - Status Inactive Problem Recommendation Dietitian Recommendations/Changes regular diet- texture/ consistency modifications as indicated; consider FOREST EXAMINER consult. 240mL ensure plus high protein TID w/ meals Lab / Micro Data Result Diagrams: 12/16/22 03:00 12/16/22 03:00 Labs: Laboratory Results - last 24 hr 12/15/22 14:30: Sodium 166 H*, Potassium 5.2 H, Chloride 137 H*, Carbon Dioxide 27.0, Anion Gap 2 L, BUN 91 H, Creatinine 3.06 H, Estim Creat Clear Calc 13.75, Est GFR (MDRD) Af Amer 19 L, Est GFR (MDRD) Non-Af 16 L, BUN/Creatinine Ratio 29.7 H, Glucose 100, Calcium 10.5 H 12/15/22 14:30: Free T4 0.99 12/16/22 03:00: WBC 10.7, RBC 3.14 L, Hgb 8.8 L, Hct 32.5 L, MCV 103.5 H, MCH 28.0, MCHC 27.1 L, RDW Std Deviation 60.5 H, RDW Coeff of Lee 15.9 H, Plt Count 188, MPV 10.2, Immature Gran % (Auto) 0.700, Neut % (Auto) 84.3 H, Lymph % (Auto) 8.9 L, [place] % (Auto) 3.8, Eos % (Auto) 2.1, Baso % (Auto) 0.2, Absolute Neuts (auto) 9.0 H, Absolute Lymphs (auto) 0.95, Nucleated RBC % 0 12/16/22 03:00: Sodium 167 H*, Potassium 5.0, Chloride 137 H*, Carbon Dioxide 25.0, Anion Gap 5, BUN 87 H, Creatinine 2.86 H, Estim Creat Clear Calc 14.71, Est GFR (MDRD) Af Amer 21 L, Est GFR (MDRD) Non-Af 17 L, BUN/Creatinine Ratio 30.4 H, Glucose 127 H, Calcium 10.3 H, Phosphorus 3.7, Magnesium 3.0 H, Total Bilirubin 0.20, AST 15, ALT 37, Alkaline Phosphatase 85, Total Protein 6.0 L, Albumin 2.1 L, Globulin 3.9, Albumin/Globulin Ratio 0.5 L Micro: Microbiology 12/15/22 11:10 Urine, Catheterized Urine Culture - Preliminary Gram negative kamila 12/15/22 08:13 Blood Culture (Wb) - Anticubital Left Blood Culture - Preliminary GNR non music journalist 12/15/22 08:15 Blood Culture (Wb) - Right Hand Blood Culture - Preliminary GNR non music journalist Physical Exam Const alert and no apparent distress Constitutional Narrative: Elderly white female sitting up in bed, has just eaten breakfast, nursing at bedside, has just arrived from home, much more alert and interactive today, still with some mild confusion HEENT normocephalic and head/scalp atraumatic HEENT Narrative: Mucous membranes are no longer dry, dentition is poor, Mallampati is 2 Resp normal respiratory effort, no retractions, no use of accessory muscles and clear to auscultation bilaterally Auscultation: Negative for crackles, rhonchi or wheezes Cardio regular rate, regular rhythm, S1 normal heart sound, S2 normal heart sound, no murmurs, no rub, no gallops and no clicks GI normal to inspection, nondistended, normoactive bowel sounds, soft to palpation and non-tender Extremity no clubbing, cyanosis or edema Extremity Narrative: 2+ pedal pulses Neuro CN's II-XII intact bilaterally, moves all extremities and no focal motor deficits Neuro Narrative: Mentation is improved, much more alert, speech less slow and deliberate Psych Psych Narrative: Affect is extremely flat and mood seems depressed Assessment & Plan Assessment/Plan (1) CITLALY (acute kidney injury): (2) Hypernatremia: (3) Hyperchloremia: (4) Leukocytosis: (5) Hyperkalemia: (6) Hypercalcemia: (7) Abnormal TSH: (8) Severe dehydration: (9) Severe malnutrition: (10) Dysphagia: (11) Gram-negative bacteremia: (12) UTI (urinary tract infection): PLAN: Plan Gram-negative bacteremia/UTI -Blood and urine cultures positive for gram-negative rods-lactose 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 journalist -Patient was initially given Levaquin 750 in the emergency department I suspect she will get coverage from that for some time -Discontinue ampicillin started overnight and start ceftriaxone as this will be less renally cleared and she still has CITLALY -Await culture results and titrate medications appropriately -Check retroperitoneal ultrasound -We will need at least 7 days of antibiotics--> day 2 of 7 CITLALY on CKD stage IIIb secondary to severe dehydration -Baseline serum creatinine between 1.5 and 1.9 -Serum creatinine on presentation was 3.37 -Improving and serum creatinine is now 2.86 -Continue to hold home losartan -Continue IV fluids but transition to D5W -Remains with no need for renal replacement therapy or nephrology consult at this time -Continue Tinoco placement for accurate I's and O's -Check retroperitoneal ultrasound with UTI/gram-negative bacteremia Severe hypernatremia/hyperchloremia secondary to severe dehydration -Clinically looks less dry today -Sodium and chloride are slowly coming down but still above 160--> will transition to D5W -Repeat BMP in a.m. Hyperkalemia -Resolved Hypercalcemia -Secondary to dehydration -Trending down -Repeat lab in a.m. Abnormal TSH -TSH on admission was 0.18 -Patient with history of hyperthyroidism -I did obtain a free T4 it was noted to be normal at 0.99 -Suspect euthyroid sick Dysphagia/esophagitis/esophageal stenosis/nondiabetic gastroparesis -EGD done on 11/06/2022 showed grade C erosive esophagitis that was treated with argon plasma coagulation as well as a benign-appearing esophageal stenosis that was dilated and a moderately severe erosive esophagitis that was biopsied -Repeat EGD done by gastroenterology on 12/15/2022 demonstrated grade D erosive esophagitis that was treated with argon plasma coagulation, benign-appearing esophageal stenosis that was dilated, medium size hiatal hernia and a normal second portion of the duodenum. -Biopsies were taken and pathology is pending -Repeat EGD recommended to be performed in 4 weeks -Continue home Protonix -Continue home Reglan -GI is following-appreciate input Severe malnutrition -Continue supplements 1 p.o. intake is able to be initiated -Dietitian is following -Regular diet initiated by gastroenterology after stenosis was dilated Osteoporosis -Continue Prolia as an outpatient -Continue cholecalciferol History of hyperthyroidism -Continue methimazole Chronic anemia -Macrocytic -Patient is on iron supplementation at baseline--> continue -Continue oral vitamin C Leukocytosis -Suspect related to severe hemoconcentration -Repeat in a.m. -No need for current antibiotics -Patient was given Levaquin in the emergency department--> with her renal function this should cover her for some time Primary hyperparathyroidism -Continue cinaclcet Urinary incontinence -Hold home oxybutynin -Patient have a Tinoco Constipation -Continue home MiraLAX Chronic pain -Ultram on hold with renal function -We will reevaluate as kidney function improves Bipolar disorder -Continue home lorazepam -Continue home Lamictal -Mood currently seems stable -Does have baseline tremor from medication -Patient with history of renal toxicity from lithium Cognitive impairment -Per patient does have some memory issues -Continue home memantine DVT prophylaxis -Heparin twice daily CODE STATUS -Full code as verified on admission Charges/Coding Visit Charges Inpatient E&M: 18029 Subs Hosp L2
[2022-12-16 14:15] VITALS: BP 127/79; PULSE 94; RESP 21; TEMP 37.8; O2SAT 94
--- NOTE | 2022-12-16 14:15 | US_ITS ---
STUDY: RENAL ULTRASOUND - COMPLETE REASON FOR EXAM: Female, 72 years old. CITLALY TECHNIQUE: Ultrasound evaluation of the kidneys was performed with real-time and static mckay-scale imaging. COMPARISON: None. FINDINGS: RIGHT KIDNEY: Normal location of the right kidney, which is normal in size. The right kidney measures 9.2 cm. There is increased echogenicity cortex of the right kidney. The renal cortex measures 0.9 cm. There are cysts measuring up to 1.4 cm. There are echogenic foci suggesting small calcifications. There is no right hydronephrosis. DISTAL RIGHT URETER: There is non-visualization of the distal right ureter. There is no demonstrated right ureterovesical junction calculus. There is no demonstrated right ureteral jet. LEFT KIDNEY: Normal location of the left kidney, which is normal in size. The left kidney measures 9.1 cm. There is increased echogenicity cortex of the left kidney. The renal cortex measures 1.0 cm. There is cysts measuring up to 2.3 cm. There are echogenic foci suggesting small calcifications. There is no left hydronephrosis. DISTAL LEFT URETER: There is non-visualization of the distal left ureter. There is no demonstrated left ureterovesical junction calculus. There is no demonstrated left ureteral jet. BLADDER: There is Tinoco catheter in the urinary bladder. US/Kidney and Bladder IMPRESSION: The kidneys are echogenic consistent with chronic medical disease. Possible small stones. No hydronephrosis. Electronically Signed: Stoney Mitchell MD at 18:27 EST ,
[2022-12-16 14:25] VITALS: O2SAT 98
--- NOTE | 2022-12-16 14:45 | CASEMGMT ---
Addendum entered by Tan Al 12/16/22 22:27: 12/16/22 @ 1810: RN CM to pt's room. Pt resting in bed. and dtr, Elva, are @ pt's bedside. Introduced self and role. states agreeable to completing RN CM assess at this time and he and pt agreeable to dtr being present during assessment. PCP: Codi MANAGER EPIC? Specialists: Yovani, pain; Jose Alberto, nephro; Jodie, psychiatrist; Amanuel, oral and maxillofacial surgery resident; Khurram, derm; Salome, urologist; Friend-GI, Sibilia-pulmonology Preferred Pharmacy: [facility] Insurance: [employer] [facility] Prescription Benefit: yes? Living Will/HPOA: yes, Jeffrey Escamilla LNOK: , Jeffrey. Dtr, Elva Living Arrangements: Patient lives with in a single story home w/basement and with 3 steps and railing to enter the home. states pt is usually able to do ADL's: bathing and dressing on her own, but he does assist as needed. He reports the day before coming to the hospital pt was having increased weakness and he has been assisting w/ambulating more and ADL's. He does usually provide SBA when pt walking. He states they do grocery shopping together. does the laundry in the basement, but then pt helps to fold it. Pt states he usually manages pt's medications. Transportation: ? DME: Patient has built in shower chair, raised toilet, cane, grab bars, and walker, but has not had to use it except for the day after last discharge from the hospital. and dtr state would be interested in info on medical alert button. SNF/HHC: Pt has had [facility] HHC in the past. states he does not want pt going to a SNF, he wants to take her home, and would like [facility] again. He declines wanting list of other HHC options. He denies wanting an aide. Pt also agreeable to [facility]. TC to Cindy @ [facility] and VM left re: referral. Awaiting response re: acceptance. Pt, , and dtr all deny having further discharge planning needs at this time. Instructed them to ask for RN CM if any further questions/concerns/needs arise. Plan: Patient to discharge home with family support and HHC. CM to provide info on medical alert button. PT/OT amado pending Shanna ARMANDO RN, CM Original Note: ALEXEY MARTIN NOTE: ALEXEY CM to room for initial RN CM assessment. Pt sitting up in chair. Awake/alert. Introduced self and role. Pt agreeable to participating in assessment. Pt noted w/confusion, stating the incorrect addresss, phone number, insurance, and then stated she has no children, but then when RN VERONICA asked her about having a daughter, Elva, she stated yes. RN VERONICA placed call to pt's . He states he is in the middle of something and inquired if assess could be completed w/him tomorrow when he comes in to visit pt b/w 9:30 AM to 1 PM. ALEXEY MARTIN informed him this could be done tomorrow. voices appreciation. Shanna ARMANDO RN, CM
--- NOTE | 2022-12-16 15:21 | PN_ITS ---
Subjective Subjective She is doing a lot better today. She denies any trouble swallowing after EGD yesterday. She was able to eat solid food today. Had a long talk with her and explained to him that I think she likely either needs an esophageal stent or a PEG tube in the future with an esophageal stent. I think that is the only way to keep her esophagus open as she has severe esophagitis and she is on maximal acid suppression. Objective Data Objective Data Vital Signs: Vital Signs Temp Pulse Resp BP Pulse Ox O2 Del Method 100.3 F H 95 16 118/83 H 97 Room Air 12/16/22 08:15 12/16/22 08:15 12/16/22 08:15 12/16/22 08:15 12/16/22 08:15 12/16/22 09:20 Oxygen Delivery Method Room Air Weight: 117 lb 4.575 oz Body Mass Index (BMI) 19.5 Intake & Output: Intake and Output for Last 24 Hours 12/14/22 12/15/22 12/16/22 23:59 23:59 23:59 Intake Total 1788.75 / 1884.75 1811 / 1811 Output Total 2080 / 2080 1200 / 1200 Balance -291.25 / -195.25 611 / 611 Medical Nutrition Assessment Dietitian: Malnutrition Criteria Met Start: 12/15/22 12:23 Freq: Status: Active Protocol: Document 12/16/22 11:46 AG (Rec: 12/16/22 11:46 AG Desktop) Nutrition Malnutrition Evidence of Malnutrition Exists Yes Malnutrition (severe): Chronic Evidenced By Suboptimal Energy Intake ( Severe),Weight Loss (Severe) Clinical Problem Chronic Disease or Condition Related Malnutrition Etiology severe, chronic malnutrition related to inadequate oral intake d/t esophageal stenosis Signs/Symptoms as evidenced by estimated PO intake meeting <75% of estimated energy needs > 3 months; unintentional wt loss of 30.7#/21% wt loss x 4 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 240mL ensure plus high protein TID w/ meals Lab / Micro Data Result Diagrams: 12/16/22 03:00 12/16/22 03:00 Labs: Laboratory Results - last 24 hr 12/16/22 03:00: WBC 10.7, RBC 3.14 L, Hgb 8.8 L, Hct 32.5 L, MCV 103.5 H, MCH 28.0, MCHC 27.1 L, RDW Std Deviation 60.5 H, RDW Coeff of Lee 15.9 H, Plt Count 188, MPV 10.2, Immature Gran % (Auto) 0.700, Neut % (Auto) 84.3 H, Lymph % (Auto) 8.9 L, [place] % (Auto) 3.8, Eos % (Auto) 2.1, Baso % (Auto) 0.2, Absolute Neuts (auto) 9.0 H, Absolute Lymphs (auto) 0.95, Nucleated RBC % 0 12/16/22 03:00: Sodium 167 H*, Potassium 5.0, Chloride 137 H*, Carbon Dioxide 25.0, Anion Gap 5, BUN 87 H, Creatinine 2.86 H, Estim Creat Clear Calc 14.71, Est GFR (MDRD) Af Amer 21 L, Est GFR (MDRD) Non-Af 17 L, BUN/Creatinine Ratio 30.4 H, Glucose 127 H, Calcium 10.3 H, Phosphorus 3.7, Magnesium 3.0 H, Total Bilirubin 0.20, AST 15, ALT 37, Alkaline Phosphatase 85, Total Protein 6.0 L, Albumin 2.1 L, Globulin 3.9, Albumin/Globulin Ratio 0.5 L Micro: Microbiology 12/15/22 11:10 Urine, Catheterized Urine Culture - Preliminary Gram negative kamila 12/15/22 08:13 Blood Culture (Wb) - Anticubital Left Blood Culture - Preliminary GNR non statistical assistant 12/15/22 08:15 Blood Culture (Wb) - Right Hand Blood Culture - Preliminary GNR non statistical assistant Physical Exam Narrative GENERAL: cooperative HEENT: Atraumatic; normocephalic EYES; Anicteric, Normal Conjunctiva NECK; supple, normal thyroid, RESPIRATORY: Diminished to auscultation CARDIOVASCULAR: Regular S1 S2, GI: soft, normoactive bowel sounds, : No Renal angle tenderness; EXTREMITIES: No edema, no clubbing, MUSCULOSKELETAL: no muscle wasting NEURO: Awake; no lateralizing signs. SKIN: No Rash PSYCH; Flat affect Assessment & Plan Assessment/Plan (1) Dysphagia: PLAN: Esophageal dysphagia secondary to recurrent esophageal stricture in the lower one third of the distal esophagus. She underwent dilation with 18 mm balloon and treatment with APC to hopefully keep it open. I would recommend a Carafate slurry in order to keep the esophagus open is much as possible (2) Erosive esophagitis: PLAN: . Severe erosive esophagitis refractory to medical therapy secondary to concurrent gastroparesis and hiatal hernia. Would recommend esophageal stent. Patient's says they are totally against a feeding tube. Charges/Coding Visit Charges Inpatient E&M: 96454 Subs Hosp L2
[2022-12-16 20:15] VITALS: BP 106/80; PULSE 99; RESP 18; TEMP 38.1; O2SAT 95
[2022-12-17] VITALS (9 sets, daily range): BP systolic 119–138; BP diastolic 82–97; PULSE 88–92; RESP 16–18; TEMP 36.6–37.7; O2SAT 92–98
[2022-12-17] MEDS: Cinacalcet HCl 30 MG Tablet PO (08:31)
[2022-12-17] MEDS: Memantine Hydrochloride 10 MG Tablet PO (08:31)
[2022-12-17] MEDS: Heparin Injection (Vial) 5,000 UNIT/ML VIAL 5000 UNIT SC ×2 (08:31→20:59)
[2022-12-17] MEDS: Methimazole 5 MG Tablet PO (08:31)
[2022-12-17] MEDS: lamoTRIgine 150 MG Tablet PO (08:31)
[2022-12-17] MEDS: 0.9% Saline Lock 10 ML Syringe IV (09:32)
[2022-12-17 11:18] LABS: Absolute Lymphocyte Count 1.36 X10^3/uL (0.83-4.51); Absolute Neutrophil Count 8.8 X10^3/uL (2.0-7.7); Basophil# 0.01 X10^3/uL; Basophil% 0.1 % (0-1); Eosinophil# 0.27 X10^3/uL; Eosinophils% 2.5 % (0-5); Hematocrit 34.7 % (37-47); Hemoglobin 9.7 g/dL (12.0-15.0); Lymphocyte # 1.36 X10^3/ul (0.83-4.51); Lymphocyte % 12.4 % (19-41); Mean Platelet Vol. 10.3 fl (6.2-12.0); Monocyte# 0.39 X10^3/uL; Monocyte% 3.6 % (0-10); NRBC Flagged by Analyzer 0 % (0-5); Neutrophil # 8.82 X10^3/uL (2.7-7.7); Neutrophil % 80.6 % (47-70); Platelet Count 220 K/mm3 (150-450); RBC Distribution Width CV 15.4 % (11.6-14.6); RBC Distribution Width SD 56.4 fl (35.1-43.9); Red Blood Count 3.47 M/mm3 (4.2-5.4); White Blood Count 10.9 K/mm3 (4.4-11.0)
[2022-12-17 11:41] LABS: Anion Gap 6 (5-15); BUN 64 mg/dL (7-18); BUN/Creat Ratio 24.8 RATIO (10-20); Calcium,Total 9.7 mg/dL (8.5-10.1); Chloride 123 mmol/L (98-107); Creatinine, Serum 2.58 mg/dL (0.55-1.02); EST Glomerular Filtration Rate 19 mL/min (>60); Est Glom Filt Rate - Afr Amer 23 mL/min (>60); Estimated Creatinine Clearance 16.31 ml/min; Glucose 170 mg/dL (74-106); Potassium 3.6 mmol/L (3.5-5.1); Sodium Level 150 mmol/L (136-145)
--- NOTE | 2022-12-17 12:57 | CASEMGMT ---
Addendum entered and electronically signed by Akila Santillan RN 12/17/22 13:30: This ALEXEY MARTIN was notified by Cindy at [facility] that pt has been accepted with a tentative SOC date of 12/20. Salvador Santillan RN CM Original Note: ALEXEY MARTIN Follow-up: Pt's at bedside. Information on medical alert was provided. Discussed pt's PT evaluation and ability to ambulate 3 feet only. Pt's spouse states he was aware of this and states he does not want pt to go to a SNF. States he is at home all of the time and able to be there to care for pt. [facility] pt was hospitalized in September, and received home health services after that admission that were helpful. Will continue to monitor pt's progress with therapy and collaborate with pt and pt spouse for DC plan. Salvador Santillan RN CM
--- NOTE | 2022-12-17 16:31 | PCM.PN.HOSP ---
Reason for Visit Reason for Visit: Diagnoses Elevated white blood cell count, unspecified (12/15/22) Unspecified severe protein-calorie malnutrition (12/15/22) Hypercalcemia (12/15/22) Dehydration (12/15/22) Hyperosmolality and hypernatremia (12/15/22) Hyperkalemia (12/15/22) Other disorders of electrolyte and fluid balance, not elsewhere classified (12/15/22) Ulcer of esophagus without bleeding (12/15/22) Acute kidney failure, unspecified (12/15/22) Urinary tract infection, site not specified (12/15/22) Dysphagia, unspecified (12/15/22) Bacteremia (12/15/22) Other specified abnormal findings of blood chemistry (12/15/22) Subjective Subjective Patient had a small emesis this morning etiology unclear. Patient denied nausea. I am wondering if she drank too much water following her applesauce bolus. Otherwise she has been doing well and overall states she feels better. Objective Data Objective Data Vital Signs: Vital Signs Temp Pulse Resp BP Pulse Ox O2 Del Method 98.4 F 92 18 138/95 H 98 Room Air 12/17/22 13:42 12/17/22 13:42 12/17/22 13:42 12/17/22 13:42 12/17/22 13:42 12/17/22 13:42 Oxygen Delivery Method Room Air Weight: 53.2 kg Body Mass Index (BMI) 19.5 Intake & Output: Intake and Output for Last 24 Hours 12/15/22 12/16/22 12/17/22 23:59 23:59 23:59 Intake Total 1788.75 / 1884.75 2911 / 2911 1673.33 / 1673.33 Output Total 2080 / 2080 2825 / 2825 1350 / 1350 Balance -291.25 / -195.25 86 / 86 323.33 / 323.33 Medical Nutrition Assessment Dietitian: Malnutrition Criteria Met Start: 12/15/22 12:23 Freq: Status: Active Protocol: Document 12/16/22 11:46 AG (Rec: 12/16/22 11:46 AG Desktop) Nutrition Malnutrition Evidence of Malnutrition Exists Yes Malnutrition (severe): Chronic Evidenced By Suboptimal Energy Intake ( Severe),Weight Loss (Severe) Clinical Problem Chronic Disease or Condition Related Malnutrition Etiology severe, chronic malnutrition related to inadequate oral intake d/t esophageal stenosis Signs/Symptoms as evidenced by estimated PO intake meeting <75% of estimated energy needs > 3 months; unintentional wt loss of 30.7#/21% wt loss x 4 months 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 240mL ensure plus high protein TID w/ meals Lab / Micro Data Result Diagrams: 12/17/22 11:10 12/17/22 11:10 Labs: Laboratory Results - last 24 hr 12/17/22 11:10: WBC 10.9, RBC 3.47 L, Hgb 9.7 L, Hct 34.7 L, MCV 100.0 H, MCH 28.0, MCHC 28.0 L, RDW Std Deviation 56.4 H, RDW Coeff of Lee 15.4 H, Plt Count 220, MPV 10.3, Immature Gran % (Auto) 0.800, Neut % (Auto) 80.6 H, Lymph % (Auto) 12.4 L, [place] % (Auto) 3.6, Eos % (Auto) 2.5, Baso % (Auto) 0.1, Absolute Neuts (auto) 8.8 H, Absolute Lymphs (auto) 1.36, Nucleated RBC % 0 12/17/22 11:10: Sodium 150 H, Potassium 3.6, Chloride 123 H, Carbon Dioxide 21.0, Anion Gap 6, BUN 64 H, Creatinine 2.58 H, Estim Creat Clear Calc 16.31, Est GFR (MDRD) Af Amer 23 L, Est GFR (MDRD) Non-Af 19 L, BUN/Creatinine Ratio 24.8 H, Glucose 170 H, Calcium 9.7 Micro: Microbiology 12/15/22 11:10 Urine, Catheterized Urine Culture - Final Klebsiella oxytoca 12/15/22 08:15 Blood Culture (Wb) - Right Hand Blood Culture - Preliminary GNR non maintenance engineer oil field 12/15/22 08:13 Blood Culture (Wb) - Anticubital Left Blood Culture - Final Klebsiella oxytoca Radiography Diagnostic Testing: Radiology Impression Renal Ultrasound 12/16/22 14:15 IMPRESSION: The kidneys are echogenic consistent with chronic medical disease. Possible small stones. No hydronephrosis. Electronically Signed: Stoney Mitchell MD at 18:27 EST , Physical Exam Const alert and no apparent distress Constitutional Narrative: Elderly white female sitting up in bed, has just eaten breakfast, nursing at bedside, at the bedside, oriented to self, place, and time the only question she did have difficulty with today was president of [employer] normocephalic, head/scalp atraumatic and moist oral mucous membranes HEENT Narrative: Dentition is poor, Mallampati is 2, oropharynx is no longer dry Resp normal respiratory effort, no retractions, no use of accessory muscles and clear to auscultation bilaterally Auscultation: Negative for crackles, rhonchi or wheezes Cardio regular rate, regular rhythm, S1 normal heart sound, S2 normal heart sound, no murmurs, no rub, no gallops and no clicks GI normal to inspection, nondistended, normoactive bowel sounds, soft to palpation and non-tender Extremity no clubbing, cyanosis or edema Extremity Narrative: 2+ pedal pulses Neuro moves all extremities and no focal motor deficits Neuro Narrative: Oriented to self, time, place, speech is slow and deliberate but intelligible Psych Psych Narrative: Affect is extremely flat and mood less depressed today Assessment & Plan Assessment/Plan (1) CITLALY (acute kidney injury): (2) Hypernatremia: (3) Hyperchloremia: (4) Leukocytosis: (5) Hyperkalemia: (6) Hypercalcemia: (7) Abnormal TSH: (8) Severe dehydration: (9) Severe malnutrition: (10) Dysphagia: (11) Gram-negative bacteremia: (12) UTI (urinary tract infection): (13) Debility: (14) Erosive esophagitis: PLAN: Plan Klebsiella bacteremia/UTI -Blood and urine cultures positive for gram-negative rods-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 -Continue ceftriaxone -Await culture results and titrate medications appropriately -Retroperitoneal ultrasound shows no hydronephrosis and only medical renal disease -We will need at least 7 days of antibiotics--> day 3 of 7 CITLALY on CKD stage IIIb secondary to severe dehydration -Baseline serum creatinine between 1.5 and 1.9 -Serum creatinine on presentation was 3.37 -Improving and serum creatinine is now 2.58 -Continue to hold home losartan -Continue IV fluids with D5W -Remains with no need for renal replacement therapy or nephrology consult at this time -Continue Tinoco placement for accurate I's and O's but if renal function continues to improve will discontinue -Retroperitoneal ultrasound only shows medical renal disease Severe hypernatremia/hyperchloremia secondary to severe dehydration -Improving with sodium now down to 150 and chloride at 123 -Sodium and chloride are slowly coming down but still above 160--> will transition to D5W -Repeat BMP in a.m. Hyperkalemia -Resolved Hypercalcemia -Secondary to dehydration -Resolved Abnormal TSH -TSH on admission was 0.18 -Patient with history of hyperthyroidism -I did obtain a free T4 it was noted to be normal at 0.99 -Suspect euthyroid sick Dysphagia/esophagitis/esophageal stenosis/nondiabetic gastroparesis -EGD done on 11/06/2022 showed grade C erosive esophagitis that was treated with argon plasma coagulation as well as a benign-appearing esophageal stenosis that was dilated and a moderately severe erosive esophagitis that was biopsied -Repeat EGD done by gastroenterology on 12/15/2022 demonstrated grade D erosive esophagitis that was treated with argon plasma coagulation, benign-appearing esophageal stenosis that was dilated, medium size hiatal hernia and a normal second portion of the duodenum. -Biopsies were taken and pathology is pending -Repeat EGD recommended to be performed in 4 weeks -Continue home Protonix -Continue home Reglan -GI is following-appreciate input Severe malnutrition -Continue supplements -Dietitian is following -Regular diet initiated by gastroenterology after stenosis was dilated Debility - is insistent on taking her home -She currently was only able to take 3 steps with therapy yesterday-reevaluate again today -Current plan per discussion with is home with home health care once medically stable for discharge Osteoporosis -Continue Prolia as an outpatient -Continue cholecalciferol History of hyperthyroidism -Continue methimazole Chronic anemia -Macrocytic -Patient is on iron supplementation at baseline--> continue -Continue oral vitamin C Leukocytosis -Resolved -Likely related to bacteremia and UTI Primary hyperparathyroidism -Continue cinaclcet Urinary incontinence -Hold home oxybutynin -Patient have a Tinoco Constipation -Continue home MiraLAX Chronic pain -Ultram on hold with renal function -We will reevaluate as kidney function improves Bipolar disorder -Continue home lorazepam -Continue home Lamictal -Mood currently seems stable -Does have baseline tremor from medication -Patient with history of renal toxicity from lithium Cognitive impairment -Per patient does have some memory issues -Continue home memantine DVT prophylaxis -Heparin twice daily CODE STATUS -Full code as verified on admission Charges/Coding Visit Charges Inpatient E&M: 19523 Subs Hosp L2
--- NOTE | 2022-12-17 18:56 | PCM.PROGNOTE ---
Subjective Subjective Patient says she had 1 episode of nausea with some emesis this morning. There was no blood in emesis. She says that she might of ate too fast. Objective Data Objective Data Vital Signs: Vital Signs Temp Pulse Resp BP Pulse Ox O2 Del Method 98.0 F 88 16 123/88 H 98 Room Air 12/17/22 15:40 12/17/22 15:40 12/17/22 15:40 12/17/22 15:40 12/17/22 15:40 12/17/22 15:40 Oxygen Delivery Method Room Air Weight: 117 lb 4.575 oz Body Mass Index (BMI) 19.5 Intake & Output: Intake and Output for Last 24 Hours 12/15/22 12/16/22 12/17/22 23:59 23:59 23:59 Intake Total 1788.75 / 1884.75 2911 / 2911 2753.33 / 2753.33 Output Total 2080 / 2080 2825 / 2825 2250 / 2250 Balance -291.25 / -195.25 86 / 86 503.33 / 503.33 Medical Nutrition Assessment Dietitian: Malnutrition Criteria Met Start: 12/15/22 12:23 Freq: Status: Active Protocol: Document 12/16/22 11:46 AG (Rec: 12/16/22 11:46 AG Desktop) Nutrition Malnutrition Evidence of Malnutrition Exists Yes Malnutrition (severe): Chronic Evidenced By Suboptimal Energy Intake ( Severe),Weight Loss (Severe) Clinical Problem Chronic Disease or Condition Related Malnutrition Etiology severe, chronic malnutrition related to inadequate oral intake d/t esophageal stenosis Signs/Symptoms as evidenced by estimated PO intake meeting <75% of estimated energy needs > 3 months; unintentional wt loss of 30.7#/21% wt loss x 4 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 240mL ensure plus high protein TID w/ meals Lab / Micro Data Result Diagrams: 12/17/22 11:10 12/17/22 11:10 Labs: Laboratory Results - last 24 hr 12/17/22 11:10: WBC 10.9, RBC 3.47 L, Hgb 9.7 L, Hct 34.7 L, MCV 100.0 H, MCH 28.0, MCHC 28.0 L, RDW Std Deviation 56.4 H, RDW Coeff of Lee 15.4 H, Plt Count 220, MPV 10.3, Immature Gran % (Auto) 0.800, Neut % (Auto) 80.6 H, Lymph % (Auto) 12.4 L, [place] % (Auto) 3.6, Eos % (Auto) 2.5, Baso % (Auto) 0.1, Absolute Neuts (auto) 8.8 H, Absolute Lymphs (auto) 1.36, Nucleated RBC % 0 12/17/22 11:10: Sodium 150 H, Potassium 3.6, Chloride 123 H, Carbon Dioxide 21.0, Anion Gap 6, BUN 64 H, Creatinine 2.58 H, Estim Creat Clear Calc 16.31, Est GFR (MDRD) Af Amer 23 L, Est GFR (MDRD) Non-Af 19 L, BUN/Creatinine Ratio 24.8 H, Glucose 170 H, Calcium 9.7 Micro: Microbiology 12/15/22 11:10 Urine, Catheterized Urine Culture - Final Klebsiella oxytoca 12/15/22 08:15 Blood Culture (Wb) - Right Hand Blood Culture - Preliminary GNR non credit department manager 12/15/22 08:13 Blood Culture (Wb) - Anticubital Left Blood Culture - Final Klebsiella oxytoca Physical Exam Narrative GENERAL: cooperative HEENT: Atraumatic; normocephalic EYES; Anicteric, Normal Conjunctiva NECK; supple, normal thyroid, RESPIRATORY: Diminished to auscultation CARDIOVASCULAR: Regular S1 S2, GI: soft, normoactive bowel sounds, : No Renal angle tenderness; EXTREMITIES: No edema, no clubbing, MUSCULOSKELETAL: no muscle wasting NEURO: Awake; no lateralizing signs. SKIN: No Rash PSYCH; Flat affect Assessment & Plan Assessment/Plan (1) Dysphagia: PLAN: Esophageal dysphagia secondary to recurrent esophageal stricture in the lower one third of the distal esophagus. She underwent dilation with 18 mm balloon and treatment with APC to hopefully keep it open. I would recommend a Carafate slurry in order to keep the esophagus open is much as possible. If she continues to do well she can be DC'd to home tomorrow with outpatient follow-up. (2) Erosive esophagitis: PLAN: . Severe erosive esophagitis refractory to medical therapy secondary to concurrent gastroparesis and hiatal hernia. Would recommend esophageal stent. Patient's says they are totally against a feeding tube. Charges/Coding Visit Charges Inpatient E&M: 14780 Subs Hosp L2
[2022-12-18] VITALS (9 sets, daily range): BP systolic 94–145; BP diastolic 69–90; PULSE 84–95; RESP 16–20; TEMP 36.2–37.3; O2SAT 95–98
[2022-12-18] MEDS: 0.9% Saline Lock 10 ML Syringe IV ×3 (03:43→16:14)
[2022-12-18 07:03] LABS: Anion Gap 7 (5-15); BUN 68 mg/dL (7-18); BUN/Creat Ratio 32.7 RATIO (10-20); Calcium,Total 9.2 mg/dL (8.5-10.1); Chloride 118 mmol/L (98-107); Creatinine, Serum 2.08 mg/dL (0.55-1.02); EST Glomerular Filtration Rate 25 mL/min (>60); Est Glom Filt Rate - Afr Amer 30 mL/min (>60); Estimated Creatinine Clearance 20.23 ml/min; Glucose 112 mg/dL (74-106); Potassium 3.9 mmol/L (3.5-5.1); Sodium Level 146 mmol/L (136-145)
[2022-12-18] MEDS: lamoTRIgine 150 MG Tablet PO (09:55)
[2022-12-18] MEDS: Memantine Hydrochloride 10 MG Tablet PO (09:55)
[2022-12-18] MEDS: LORazepam 1 MG Tablet 2 MG PO ×2 (09:57→16:14)
[2022-12-18] MEDS: Heparin Injection (Vial) 5,000 UNIT/ML VIAL 5000 UNIT SC ×2 (09:59→22:27)
[2022-12-18] MEDS: Pantoprazole Sodium 40 MG Tablet PO ×2 (10:30→22:27)
--- NOTE | 2022-12-18 11:34 | PCM.PN.HOSP ---
Reason for Visit Reason for Visit: Diagnoses Elevated white blood cell count, unspecified (12/15/22) Unspecified severe protein-calorie malnutrition (12/15/22) Hypercalcemia (12/15/22) Dehydration (12/15/22) Hyperosmolality and hypernatremia (12/15/22) Hyperkalemia (12/15/22) Other disorders of electrolyte and fluid balance, not elsewhere classified (12/15/22) Ulcer of esophagus without bleeding (12/15/22) Acute kidney failure, unspecified (12/15/22) Urinary tract infection, site not specified (12/15/22) Dysphagia, unspecified (12/15/22) Other malaise (12/15/22) Bacteremia (12/15/22) Other specified abnormal findings of blood chemistry (12/15/22) Objective Data Objective Data Vital Signs: Vital Signs Temp Pulse Resp BP Pulse Ox O2 Del Method 97.8 F 87 17 145/89 H 97 Room Air 12/18/22 10:10 12/18/22 10:10 12/18/22 10:10 12/18/22 10:10 12/18/22 10:10 12/18/22 10:10 Oxygen Delivery Method Room Air Weight: 53.2 kg Body Mass Index (BMI) 19.5 Intake & Output: Intake and Output for Last 24 Hours 12/16/22 12/17/22 12/18/22 23:59 23:59 23:59 Intake Total 2911 / 2911 2853.33 / 2853.33 1704.17 / 1704.17 Output Total 2825 / 2825 2250 / 2450 2300 / 2300 Balance 86 / 86 603.33 / 403.33 -595.83 / -595.83 Medical Nutrition Assessment Dietitian: Malnutrition Criteria Met Start: 12/15/22 12:23 Freq: Status: Active Protocol: Document 12/16/22 11:46 AG (Rec: 12/16/22 11:46 AG Desktop) Nutrition Malnutrition Evidence of Malnutrition Exists Yes Malnutrition (severe): Chronic Evidenced By Suboptimal Energy Intake ( Severe),Weight Loss (Severe) Clinical Problem Chronic Disease or Condition Related Malnutrition Etiology severe, chronic malnutrition related to inadequate oral intake d/t esophageal stenosis Signs/Symptoms as evidenced by estimated PO intake meeting <75% of estimated energy needs > 3 months; unintentional wt loss of 30.7#/21% wt loss x 4 months 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 240mL ensure plus high protein TID w/ meals Lab / Micro Data Result Diagrams: 12/17/22 11:10 12/18/22 05:47 Labs: Laboratory Results - last 24 hr 12/17/22 11:10: Sodium 150 H, Potassium 3.6, Chloride 123 H, Carbon Dioxide 21.0, Anion Gap 6, BUN 64 H, Creatinine 2.58 H, Estim Creat Clear Calc 16.31, Est GFR (MDRD) Af Amer 23 L, Est GFR (MDRD) Non-Af 19 L, BUN/Creatinine Ratio 24.8 H, Glucose 170 H, Calcium 9.7 12/18/22 05:47: Sodium 146 H, Potassium 3.9, Chloride 118 H, Carbon Dioxide 21.0, Anion Gap 7, BUN 68 H, Creatinine 2.08 H, Estim Creat Clear Calc 20.23, Est GFR (MDRD) Af Amer 30 L, Est GFR (MDRD) Non-Af 25 L, BUN/Creatinine Ratio 32.7 H, Glucose 112 H, Calcium 9.2 Micro: Microbiology 12/15/22 11:10 Urine, Catheterized Urine Culture - Final Klebsiella oxytoca 12/15/22 08:15 Blood Culture (Wb) - Right Hand Blood Culture - Preliminary GNR non revenue field agent 12/15/22 08:13 Blood Culture (Wb) - Anticubital Left Blood Culture - Final Klebsiella oxytoca Physical Exam Const alert, oriented x3 and no apparent distress Constitutional Narrative: Elderly white female sitting up in bed, eating breakfast, at bedside, appears comfortable and nontoxic, very pleasant HEENT normocephalic, head/scalp atraumatic and moist oral mucous membranes HEENT Narrative: Dentition is poor, Mallampati is 2, no thrush Resp normal respiratory effort, no retractions, no use of accessory muscles and clear to auscultation bilaterally Auscultation: Negative for crackles, rhonchi or wheezes Cardio regular rate, regular rhythm, S1 normal heart sound, S2 normal heart sound, no murmurs, no rub, no gallops and no clicks GI normal to inspection, nondistended, normoactive bowel sounds, soft to palpation and non-tender Extremity no clubbing, cyanosis or edema Extremity Narrative: 2+ pedal pulses Neuro oriented x3, moves all extremities and no focal motor deficits Neuro Narrative: Tremor noted, speech is slow but intelligible Psych Psych Narrative: Affect remains flat and would remains depressed however less so than on presentation Assessment & Plan Assessment/Plan (1) CITLALY (acute kidney injury): (2) Hypernatremia: (3) Hyperchloremia: (4) Leukocytosis: (5) Hyperkalemia: (6) Hypercalcemia: (7) Abnormal TSH: (8) Severe dehydration: (9) Severe malnutrition: (10) Dysphagia: (11) Gram-negative bacteremia: (12) UTI (urinary tract infection): (13) Debility: (14) Erosive esophagitis: PLAN: Plan Klebsiella bacteremia/UTI -Blood and urine cultures positive for gram-negative rods-lactose revenue field agent -Continue ceftriaxone -Await culture results and titrate medications appropriately -Retroperitoneal ultrasound shows no hydronephrosis and only medical renal disease -We will need at least 7 days of antibiotics--> day 4 of 7 -Would transition to Keflex on day of discharge for likely 1 day if she is able to leave Thursday CITLALY on CKD stage IIIb secondary to severe dehydration -Baseline serum creatinine between 1.5 and 1.9 -Serum creatinine on presentation was 3.37 -Improving and serum creatinine is now 2.08 -Continue to hold home losartan -We will trial off IV fluids and see if patient can maintain hydration without supplemental fluids -Discussed with nursing and that we do need to push oral fluids -Discontinue Tinoco -Retroperitoneal ultrasound only shows medical renal disease Severe hypernatremia/hyperchloremia secondary to severe dehydration -Almost normalized now with a sodium of 146 and a chloride of 118 -Discontinue IV fluids -Push oral intake--> discussed with and nursing -Would like to try oral intake to assess if patient will be able to maintain -Sodium and chloride are slowly coming down but still above 160--> will transition to D5W -Repeat BMP in a.m. Abnormal TSH -TSH on admission was 0.18 -Patient with history of hyperthyroidism -I did obtain a free T4 it was noted to be normal at 0.99 -Suspect euthyroid sick Dysphagia/esophagitis/esophageal stenosis/nondiabetic gastroparesis -EGD done on 11/06/2022 showed grade C erosive esophagitis that was treated with argon plasma coagulation as well as a benign-appearing esophageal stenosis that was dilated and a moderately severe erosive esophagitis that was biopsied -Repeat EGD done by gastroenterology on 12/15/2022 demonstrated grade D erosive esophagitis that was treated with argon plasma coagulation, benign-appearing esophageal stenosis that was dilated, medium size hiatal hernia and a normal second portion of the duodenum. -Biopsies were taken and pathology is pending -Repeat EGD recommended to be performed in 4 weeks -Continue home Protonix--> transition to oral -Continue home Reglan -GI is following-appreciate input -PO intake has been good Severe malnutrition -Continue supplements -Dietitian is following -Regular diet initiated by gastroenterology after stenosis was dilated Debility - is insistent on taking her home -She currently was only able to take 3 steps with therapy yesterday-reevaluate again today -Current plan per discussion with is home with home health care once medically stable for discharge Osteoporosis -Continue Prolia as an outpatient -Continue cholecalciferol History of hyperthyroidism -Continue methimazole Chronic anemia -Macrocytic -Patient is on iron supplementation at baseline--> continue -Continue oral vitamin C Leukocytosis -Resolved -Likely related to bacteremia and UTI Primary hyperparathyroidism -Continue cinaclcet Urinary incontinence -Hold home oxybutynin -Patient have a Tinoco Constipation -Continue home MiraLAX Chronic pain -Ultram on hold with renal function -We will reevaluate as kidney function improves Bipolar disorder -Continue home lorazepam -Continue home Lamictal -Mood currently seems stable -Does have baseline tremor from medication -Patient with history of renal toxicity from lithium Cognitive impairment -Per patient does have some memory issues -Continue home memantine DVT prophylaxis -Heparin twice daily CODE STATUS -Full code as verified on admission Charges/Coding Visit Charges Inpatient E&M: 19346 Subs Hosp L2
--- NOTE | 2022-12-18 16:31 | PN_ITS ---
Subjective Subjective Patient did not have any vomiting overnight. She is tolerating a soft diet. Objective Data Objective Data Vital Signs: Vital Signs Temp Pulse Resp BP Pulse Ox O2 Del Method 97.8 F 87 17 145/89 H 96 Room Air 12/18/22 10:10 12/18/22 10:10 12/18/22 10:10 12/18/22 10:10 12/18/22 14:10 12/18/22 10:10 Oxygen Delivery Method Room Air Weight: 117 lb 4.575 oz Body Mass Index (BMI) 19.5 Intake & Output: Intake and Output for Last 24 Hours 12/16/22 12/17/22 12/18/22 23:59 23:59 23:59 Intake Total 2911 / 2911 2853.33 / 2853.33 2154.17 / 2154.17 Output Total 2825 / 2825 2250 / 2450 3300 / 3300 Balance 86 / 86 603.33 / 403.33 -1145.83 / -1145.83 Medical Nutrition Assessment Dietitian: Malnutrition Criteria Met Start: 12/15/22 12: 23 Freq: Status: Active Protocol: Document 12/16/22 11:46 AG (Rec: 12/16/22 11:46 AG Desktop) Nutrition Malnutrition Evidence of Malnutrition Exists Yes Malnutrition (severe): Chronic Evidenced By Suboptimal Energy Intake ( Severe),Weight Loss (Severe) Clinical Problem Chronic Disease or Condition Related Malnutrition Etiology severe, chronic malnutrition related to inadequate oral intake d/t esophageal stenosis Signs/Symptoms as evidenced by estimated PO intake meeting <75% of estimated energy needs > 3 months; unintentional wt loss of 30.7#/21% wt loss x 4 months 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 240mL ensure plus high protein TID w/ meals Lab / Micro Data Result Diagrams: 12/17/22 11:10 12/18/22 05:47 Labs: Laboratory Results - last 24 hr 12/18/22 05:47: Sodium 146 H, Potassium 3.9, Chloride 118 H, Carbon Dioxide 21.0, Anion Gap 7, BUN 68 H, Creatinine 2.08 H, Estim Creat Clear Calc 20.23, Est GFR (MDRD) Af Amer 30 L, Est GFR (MDRD) Non-Af 25 L, BUN/Creatinine Ratio 32.7 H, Glucose 112 H, Calcium 9.2 Micro: Microbiology 12/15/22 11:10 Urine, Catheterized Urine Culture - Final Klebsiella oxytoca 12/15/22 08:15 Blood Culture (Wb) - Right Hand Blood Culture - Preliminary GNR non research home economist 12/15/22 08:13 Blood Culture (Wb) - Anticubital Left Blood Culture - Final Klebsiella oxytoca Physical Exam Const alert, oriented x3 and no apparent distress Constitutional Narrative: Elderly HEENT normocephalic, head/scalp atraumatic and moist oral mucous membranes HEENT Narrative: Dentition is poor, Mallampati is 2, no thrush Resp normal respiratory effort, no retractions, no use of accessory muscles and clear to auscultation bilaterally Auscultation: Negative for crackles, rhonchi or wheezes Cardio regular rate, regular rhythm, S1 normal heart sound, S2 normal heart sound, no murmurs, no rub, no gallops and no clicks GI normal to inspection, nondistended, normoactive bowel sounds, soft to palpation and non-tender Extremity no clubbing, cyanosis or edema Extremity Narrative: 2+ pedal pulses Neuro oriented x3, moves all extremities and no focal motor deficits Neuro Narrative: Tremor noted, speech is slow but intelligible Psych Psych Narrative: Affect remains flat and would remains depressed however less so than on presentation Assessment & Plan Assessment/Plan (1) CITLALY (acute kidney injury): (2) Hypernatremia: (3) Hyperchloremia: (4) Leukocytosis: (5) Hyperkalemia: (6) Hypercalcemia: (7) Abnormal TSH: (8) Severe dehydration: (9) Severe malnutrition: (10) Dysphagia: PLAN: Esophageal dysphagia secondary to recurrent esophageal stricture in the lower one third of the distal esophagus. She underwent dilation with 18 mm balloon and treatment with APC to hopefully keep it open. I would recommend a Carafate slurry in order to keep the esophagus open is much as possible. If she continues to do well she can be DC'd to home tomorrow with outpatient follow-up. (11) Gram-negative bacteremia: (12) UTI (urinary tract infection): (13) Debility: (14) Erosive esophagitis: PLAN: . Severe erosive esophagitis refractory to medical therapy secondary to concurrent gastroparesis and hiatal hernia. Would recommend esophageal stent. Patient's says they are totally against a feeding tube. PLAN: Plan Klebsiella bacteremia/UTI -Blood and urine cultures positive for gram-negative rods-lactose research home economist -Continue ceftriaxone -Await culture results and titrate medications appropriately -Retroperitoneal ultrasound shows no hydronephrosis and only medical renal disease -We will need at least 7 days of antibiotics--> day 4 of 7 -Would transition to Keflex on day of discharge for likely 1 day if she is able to leave Thursday Dysphagia/esophagitis/esophageal stenosis/nondiabetic gastroparesis -EGD done on 11/06/2022 showed grade C erosive esophagitis that was treated with argon plasma coagulation as well as a benign-appearing esophageal stenosis that was dilated and a moderately severe erosive esophagitis that was biopsied -Repeat EGD done by gastroenterology on 12/15/2022 demonstrated grade D erosive esophagitis that was treated with argon plasma coagulation, benign-appearing esophageal stenosis that was dilated, medium size hiatal hernia and a normal second portion of the duodenum. -Biopsies were taken and pathology is pending -Repeat EGD recommended to be performed in 4 weeks -Continue home Protonix--> transition to oral -Continue home Reglan Severe malnutrition -Continue supplements -Dietitian is following -Regular diet initiated by gastroenterology after stenosis was dilated Charges/Coding Visit Charges Inpatient E&M: 42718 [facility] L3
[2022-12-19 03:56] VITALS: BP 111/73; PULSE 95; RESP 18; TEMP 37.3; O2SAT 96
[2022-12-19 04:00] VITALS: BP 111/73; PULSE 95; RESP 18; TEMP 37.3; O2SAT 96
[2022-12-19 06:27] LABS: Absolute Lymphocyte Count 1.57 X10^3/uL (0.83-4.51); Absolute Neutrophil Count 5.6 X10^3/uL (2.0-7.7); Basophil# 0.02 X10^3/uL; Basophil% 0.2 % (0-1); Eosinophil# 0.29 X10^3/uL; Eosinophils% 3.6 % (0-5); Hematocrit 28.3 % (37-47); Hemoglobin 8.2 g/dL (12.0-15.0); Lymphocyte # 1.57 X10^3/ul (0.83-4.51); Lymphocyte % 19.5 % (19-41); Mean Corpuscular Hgb 28.1 pg (27.0-32.0); Mean Corpuscular Volume 96.9 fL (81-99); Mean Platelet Vol. 10.6 fl (6.2-12.0); Monocyte# 0.45 X10^3/uL; Monocyte% 5.6 % (0-10); NRBC Flagged by Analyzer 0 % (0-5); Neutrophil % 69.4 % (47-70); Platelet Count 226 K/mm3 (150-450); RBC Distribution Width CV 15.1 % (11.6-14.6); RBC Distribution Width SD 53.3 fl (35.1-43.9); Red Blood Count 2.92 M/mm3 (4.2-5.4); White Blood Count 8.1 K/mm3 (4.4-11.0)
[2022-12-19 06:59] LABS: Anion Gap 7 (5-15); BUN 67 mg/dL (7-18); BUN/Creat Ratio 34.4 RATIO (10-20); Calcium,Total 9.3 mg/dL (8.5-10.1); Chloride 122 mmol/L (98-107); Creatinine, Serum 1.95 mg/dL (0.55-1.02); EST Glomerular Filtration Rate 27 mL/min (>60); Est Glom Filt Rate - Afr Amer 32 mL/min (>60); Estimated Creatinine Clearance 21.58 ml/min; Glucose 96 mg/dL (74-106); Magnesium 2.7 mg/dL (1.6-2.6); Phosphorus 3.3 mg/dL (2.5-4.9); Potassium 4.1 mmol/L (3.5-5.1); Sodium Level 149 mmol/L (136-145)
[2022-12-19 10:43] VITALS: BP 139/91; PULSE 94; PULSE 98; RESP 16; TEMP 36.7; O2SAT 94; O2SAT 98
[2022-12-19] MEDS: Heparin Injection (Vial) 5,000 UNIT/ML VIAL 5000 UNIT SC ×2 (10:52→22:27)
--- NOTE | 2022-12-19 11:36 | PN.HOSP_ITS ---
Reason for Visit Reason for Visit: Diagnoses Elevated white blood cell count, unspecified (12/15/22) Unspecified severe protein-calorie malnutrition (12/15/22) Hypercalcemia (12/15/22) Dehydration (12/15/22) Hyperosmolality and hypernatremia (12/15/22) Hyperkalemia (12/15/22) Other disorders of electrolyte and fluid balance, not elsewhere classified (12/15/22) Ulcer of esophagus without bleeding (12/15/22) Acute kidney failure, unspecified (12/15/22) Urinary tract infection, site not specified (12/15/22) Dysphagia, unspecified (12/15/22) Other malaise (12/15/22) Bacteremia (12/15/22) Other specified abnormal findings of blood chemistry (12/15/22) Subjective Subjective Patient still intermittently spitting up some mucus. Per discussion with she does this at home and he questions why. I do not have a good answer for this and I explained to him that I would have speech therapy evaluate her. No significant issues overnight. P.o. intake has been good. Sodium and chloride are up slightly however serum creatinine is improved. I explained that we would like to watch her another 24 hours to see what happens with her sodium and chloride and creatinine with her own independent oral intake. Objective Data Objective Data Vital Signs: Vital Signs Temp Pulse Resp BP Pulse Ox O2 Del Method 98.1 F 98 16 139/91 H 94 Room Air 12/19/22 10:43 12/19/22 10:43 12/19/22 10:43 12/19/22 10:43 12/19/22 10:43 12/19/22 10:43 Oxygen Delivery Method Room Air Weight: 53.2 kg Body Mass Index (BMI) 19.5 Intake & Output: Intake and Output for Last 24 Hours 12/17/22 12/18/22 12/19/22 23:59 23:59 23:59 Intake Total 2853.33 / 2853.33 2954.17 / 2954.17 Output Total 2250 / 2450 5450 / 5450 1200 / 1200 Balance 603.33 / 403.33 -2495.83 / -2495.83 -1200 / -1200 Medical Nutrition Assessment Dietitian: Malnutrition Criteria Met Start: 12/15/22 12:2 3 Freq: Status: Active Protocol: Document 12/16/22 11:46 AG (Rec: 12/16/22 11:46 AG Desktop) Nutrition Malnutrition Evidence of Malnutrition Exists Yes Malnutrition (severe): Chronic Evidenced By Suboptimal Energy Intake ( Severe),Weight Loss (Severe) Clinical Problem Chronic Disease or Condition Related Malnutrition Etiology severe, chronic malnutrition related to inadequate oral intake d/t esophageal stenosis Signs/Symptoms as evidenced by estimated PO intake meeting <75% of estimated energy needs > 3 months; unintentional wt loss of 30.7#/21% wt loss x 4 months 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 240mL ensure plus high protein TID w/ meals Lab / Micro Data Result Diagrams: 12/19/22 05:43 12/19/22 05:43 Labs: Laboratory Results - last 24 hr 12/19/22 05:43: WBC 8.1, RBC 2.92 L, Hgb 8.2 L, Hct 28.3 L, MCV 96.9, MCH 28.1, MCHC 29.0 L, RDW Std Deviation 53.3 H, RDW Coeff of Lee 15.1 H, Plt Count 226, MPV 10.6, Immature Gran % (Auto) 1.700 H, Neut % (Auto) 69.4, Lymph % (Auto) 19.5, [place] % (Auto) 5.6, Eos % (Auto) 3.6, Baso % (Auto) 0.2, Absolute Neuts (auto) 5.6, Absolute Lymphs (auto) 1.57, Nucleated RBC % 0 12/19/22 05:43: Sodium 149 H, Potassium 4.1, Chloride 122 H, Carbon Dioxide 20.0 L, Anion Gap 7, BUN 67 H, Creatinine 1.95 H, Estim Creat Clear Calc 21.58, Est GFR (MDRD) Af Amer 32 L, Est GFR (MDRD) Non-Af 27 L, BUN/Creatinine Ratio 34.4 H , Glucose 96, Calcium 9.3, Phosphorus 3.3, Magnesium 2.7 H Micro: Microbiology 12/15/22 11:10 Urine, Catheterized Urine Culture - Final Klebsiella oxytoca 12/15/22 08:15 Blood Culture (Wb) - Right Hand Blood Culture - Preliminary GNR non clinical staff rn 12/15/22 08:13 Blood Culture (Wb) - Anticubital Left Blood Culture - Final Klebsiella oxytoca Physical Exam Const alert, oriented x3 and no apparent distress Constitutional Narrative: Elderly white female sitting up in bed, eating breakfast, at bedside, appears comfortable and nontoxic, very pleasant HEENT normocephalic, head/scalp atraumatic and moist oral mucous membranes HEENT Narrative: Dentition is poor, Mallampati is 2, no thrush Resp normal respiratory effort, no retractions, no use of accessory muscles and clear to auscultation bilaterally Auscultation: Negative for crackles, rhonchi or wheezes Cardio regular rate, regular rhythm, S1 normal heart sound, S2 normal heart sound, no murmurs, no rub, no gallops and no clicks GI normal to inspection, nondistended, normoactive bowel sounds, soft to palpation and non-tender Extremity no clubbing, cyanosis or edema Extremity Narrative: 2+ pedal pulses Neuro oriented x3, CN's II-XII intact bilaterally, moves all extremities and no focal motor deficits Neuro Narrative: Tremor noted, speech is slow but intelligible Psych Psych Narrative: Affect remains flat and would remains depressed however less so than on presentation Assessment & Plan Assessment/Plan (1) CITLALY (acute kidney injury): (2) Hypernatremia: (3) Hyperchloremia: (4) Leukocytosis: (5) Hyperkalemia: (6) Hypercalcemia: (7) Abnormal TSH: (8) Severe dehydration: (9) Severe malnutrition: (10) Dysphagia: (11) Gram-negative bacteremia: (12) UTI (urinary tract infection): (13) Debility: (14) Erosive esophagitis: PLAN: Plan Klebsiella bacteremia/UTI -Blood and urine cultures positive for gram-negative rods-lactose clinical staff rn -Continue ceftriaxone -Await culture results and titrate medications appropriately -Retroperitoneal ultrasound shows no hydronephrosis and only medical renal disease -We will need at least 7 days of antibiotics--> day 5 of 7 -Would transition to Keflex on day of discharge for likely 1 day if she is able to leave Thursday CITLALY on CKD stage IIIb secondary to severe dehydration -Baseline serum creatinine between 1.5 and 1.9 -Serum creatinine on presentation was 3.37 -Improving and serum creatinine is now 1.95 -This is with us discontinuing her IV fluids on 12/18/2022 and her maintaining hydration independently -Continue to hold home losartan -Continue to hold any IV fluids and continue to monitor clinically -Retroperitoneal ultrasound only shows medical renal disease Severe hypernatremia/hyperchloremia secondary to severe dehydration -Was almost normalized on 12/18/2022 with a sodium of 146 and a chloride of 118--> slight rise today at 149 and 121 -Repeat BMP at 1300 -Continue to monitor off IV fluids a serum creatinine has improved despite sto pping D5W -Continue to push oral intake--> discussed again with and nursing -Repeat BMP in a.m. Abnormal TSH -TSH on admission was 0.18 -Patient with history of hyperthyroidism -I did obtain a free T4 it was noted to be normal at 0.99 -Suspect euthyroid sick Dysphagia/esophagitis/esophageal stenosis/nondiabetic gastroparesis -EGD done on 11/06/2022 showed grade C erosive esophagitis that was treated with argon plasma coagulation as well as a benign-appearing esophageal stenosis that was dilated and a moderately severe erosive esophagitis that was biopsied -Repeat EGD done by gastroenterology on 12/15/2022 demonstrated grade D erosive esophagitis that was treated with argon plasma coagulation, benign-appearing esophageal stenosis that was dilated, medium size hiatal hernia and a normal second portion of the duodenum. -Biopsies were taken and pathology is pending -Repeat EGD recommended to be performed in 4 weeks -Possible stent in the future -Continue home Protonix--> transition to oral -Continue home Reglan -GI is following-appreciate input -PO intake has been good -Speech therapy to reevaluate for mucus production--> start Mucinex to see if sending her secretions help some Severe malnutrition -Continue supplements -Dietitian is following -Regular diet initiated by gastroenterology after stenosis was dilated Debility - is insistent on taking her home -She currently was only able to take 3 steps with therapy yesterday-reevaluate again today -Current plan per discussion with is home with home health care once medically stable for discharge Osteoporosis -Continue Prolia as an outpatient -Continue cholecalciferol History of hyperthyroidism -Continue methimazole Chronic anemia -Macrocytic -Hemoglobin is down a bit today compared to previous -No signs of bleeding -Repeat CBC at 1300 to assess for stability -Patient is on iron supplementation at baseline--> continue -Continue oral vitamin C Leukocytosis -Resolved -Likely related to bacteremia and UTI Primary hyperparathyroidism -Continue cinaclcet Urinary incontinence -Hold home oxybutynin -Tinoco discontinued on 12/18/2022 Constipation -Continue home MiraLAX Chronic pain -Ultram on hold with renal function -Restart if needed at discharge Bipolar disorder -Continue home lorazepam -Continue home Lamictal -Mood currently seems stable -Does have baseline tremor from medication -Patient with history of renal toxicity from lithium Cognitive impairment -Per patient does have some memory issues -Continue home memantine DVT prophylaxis -Heparin twice daily CODE STATUS -Full code as verified on admission Charges/Coding Visit Charges Inpatient E&M: 84845 Subs Hosp L2
[2022-12-19] MEDS: Methimazole 5 MG Tablet PO (12:20)
[2022-12-19] MEDS: LORazepam 1 MG Tablet 2 MG PO ×2 (12:20→18:41)
[2022-12-19] MEDS: Cinacalcet HCl 30 MG Tablet PO (12:20)
[2022-12-19] MEDS: Memantine Hydrochloride 10 MG Tablet PO (12:20)
[2022-12-19] MEDS: Pantoprazole Sodium 40 MG Tablet PO ×2 (12:20→22:27)
[2022-12-19] MEDS: lamoTRIgine 150 MG Tablet PO (12:21)
[2022-12-19 12:48] LABS: Hematocrit 30.4 % (37-47); Hemoglobin 8.8 g/dL (12.0-15.0)
[2022-12-19 13:38] LABS: Anion Gap 7 (5-15); BUN 62 mg/dL (7-18); BUN/Creat Ratio 30.4 RATIO (10-20); Calcium,Total 9.6 mg/dL (8.5-10.1); Chloride 118 mmol/L (98-107); Creatinine, Serum 2.04 mg/dL (0.55-1.02); EST Glomerular Filtration Rate 25 mL/min (>60); Est Glom Filt Rate - Afr Amer 31 mL/min (>60); Estimated Creatinine Clearance 20.63 ml/min; Glucose 138 mg/dL (74-106); Potassium 3.6 mmol/L (3.5-5.1); Sodium Level 148 mmol/L (136-145)
[2022-12-19 16:14] VITALS: BP 144/84; PULSE 86; RESP 16; RESP 18; TEMP 36.5; O2SAT 86; O2SAT 99
--- NOTE | 2022-12-19 17:44 | PN_ITS ---
Subjective Subjective Patient denies any nausea, vomiting and is tolerating food per mouth without any complaints of esophageal dysphagia. Objective Data Objective Data Vital Signs: Vital Signs Temp Pulse Resp BP Pulse Ox O2 Del Method 97.7 F L 86 18 144/84 H 86 Room Air 12/19/22 16:14 12/19/22 16:14 12/19/22 16:14 12/19/22 16:14 12/19/22 16:14 12/19/22 16:14 Oxygen Delivery Method Room Air Weight: 117 lb 4.575 oz Body Mass Index (BMI) 19.5 Intake & Output: Intake and Output for Last 24 Hours 12/17/22 12/18/22 12/19/22 23:59 23:59 23:59 Intake Total 2853.33 / 2853.33 2954.17 / 2954.17 350 / 350 Output Total 2250 / 2450 5450 / 5450 1850 / 1850 Balance 603.33 / 403.33 -2495.83 / -2495.83 -1500 / -1500 Medical Nutrition Assessment Dietitian: Malnutrition Criteria Met Start: 12/15/22 12:23 Freq: Status: Active Protocol: Document 12/16/22 11:46 AG (Rec: 12/16/22 11:46 AG Desktop) Nutrition Malnutrition Evidence of Malnutrition Exists Yes Malnutrition (severe): Chronic Evidenced By Suboptimal Energy Intake ( Severe),Weight Loss (Severe) Clinical Problem Chronic Disease or Condition Related Malnutrition Etiology severe, chronic malnutrition related to inadequate oral intake d/t esophageal stenosis Signs/Symptoms as evidenced by estimated PO intake meeting <75% of estimated energy needs > 3 months; unintentional wt loss of 30.7#/21% wt loss x 4 months 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 240mL ensure plus high protein TID w/ meals Lab / Micro Data Result Diagrams: 12/19/22 12:40 12/19/22 12:40 Labs: Laboratory Results - last 24 hr 12/19/22 05:43: WBC 8.1, RBC 2.92 L, Hgb 8.2 L, Hct 28.3 L, MCV 96.9, MCH 28.1, MCHC 29.0 L, RDW Std Deviation 53.3 H, RDW Coeff of Lee 15.1 H, Plt Count 226, MPV 10.6, Immature Gran % (Auto) 1.700 H, Neut % (Auto) 69.4, Lymph % (Auto) 19.5, [place] % (Auto) 5.6, Eos % (Auto) 3.6, Baso % (Auto) 0.2, Absolute Neuts (auto) 5.6, Absolute Lymphs (auto) 1.57, Nucleated RBC % 0 12/19/22 05:43: Sodium 149 H, Potassium 4.1, Chloride 122 H, Carbon Dioxide 20.0 L, Anion Gap 7, BUN 67 H, Creatinine 1.95 H, Estim Creat Clear Calc 21.58, Est GFR (MDRD) Af Amer 32 L, Est GFR (MDRD) Non-Af 27 L, BUN/Creatinine Ratio 34.4 H , Glucose 96, Calcium 9.3, Phosphorus 3.3, Magnesium 2.7 H 12/19/22 12:40: Hgb 8.8 L, Hct 30.4 L 12/19/22 12:40: Sodium 148 H, Potassium 3.6, Chloride 118 H, Carbon Dioxide 23.0, Anion Gap 7, BUN 62 H, Creatinine 2.04 H, Estim Creat Clear Calc 20.63, Est GFR (MDRD) Af Amer 31 L, Est GFR (MDRD) Non-Af 25 L, BUN/Creatinine Ratio 30.4 H, Glucose 138 H, Calcium 9.6 Micro: Microbiology 12/15/22 11:10 Urine, Catheterized Urine Culture - Final Klebsiella oxytoca 12/15/22 08:15 Blood Culture (Wb) - Right Hand Blood Culture - Preliminary GNR non senior cyber security analyst 12/15/22 08:13 Blood Culture (Wb) - Anticubital Left Blood Culture - Final Klebsiella oxytoca Physical Exam Const alert, oriented x3 and no apparent distress Constitutional Narrative: Elderly HEENT normocephalic, head/scalp atraumatic and moist oral mucous membranes HEENT Narrative: Dentition is poor, Mallampati is 2, no thrush Resp normal respiratory effort, no retractions, no use of accessory muscles and clear to auscultation bilaterally Auscultation: Negative for crackles, rhonchi or wheezes Cardio regular rate, regular rhythm, S1 normal heart sound, S2 normal heart sound, no murmurs, no rub, no gallops and no clicks GI normal to inspection, nondistended, normoactive bowel sounds, soft to palpation and non-tender Extremity no clubbing, cyanosis or edema Extremity Narrative: 2+ pedal pulses Neuro oriented x3, moves all extremities and no focal motor deficits Neuro Narrative: Tremor noted, speech is slow but intelligible Psych Psych Narrative: Affect remains flat and would remains depressed however less so than on presentation Assessment & Plan Assessment/Plan (1) CITLALY (acute kidney injury): (2) Hypernatremia: (3) Hyperchloremia: (4) Leukocytosis: (5) Hyperkalemia: (6) Hypercalcemia: (7) Abnormal TSH: (8) Severe dehydration: (9) Severe malnutrition: PLAN: -Continue supplements -Dietitian is following (10) Dysphagia: PLAN: Esophageal dysphagia secondary to recurrent esophageal stricture in the lower one third of the distal esophagus. She underwent dilation with 18 mm balloon and treatment with APC to hopefully keep it open. I would recommend a Carafate slurry in order to keep the esophagus open is much as possible. If she continues to do well she can be DC'd to home tomorrow with outpatient follow-up. (11) Gram-negative bacteremia: (12) UTI (urinary tract infection): (13) Debility: (14) Erosive esophagitis: PLAN: . Severe erosive esophagitis refractory to medical therapy secondary to concurrent gastroparesis and hiatal hernia. Would recommend esophageal stent. Patient's says they are totally against a feeding tube. Charges/Coding Visit Charges Inpatient E&M: 91357 [facility] Hosp L3
[2022-12-19 22:25] VITALS: BP 126/79; PULSE 93; RESP 16; TEMP 36.9; O2SAT 95
[2022-12-19] MEDS: guaiFENesin 1,200 MG Tablet 1200 MG PO (22:27)
[2022-12-20 03:55] VITALS: BP 129/77; PULSE 91; RESP 16; TEMP 36.4; O2SAT 94
[2022-12-20 05:52] LABS: Absolute Lymphocyte Count 1.61 X10^3/uL (0.83-4.51); Absolute Neutrophil Count 7.6 X10^3/uL (2.0-7.7); Basophil# 0.02 X10^3/uL; Basophil% 0.2 % (0-1); Eosinophil# 0.24 X10^3/uL; Eosinophils% 2.4 % (0-5); Hematocrit 28.2 % (37-47); Hemoglobin 8.2 g/dL (12.0-15.0); Lymphocyte # 1.61 X10^3/ul (0.83-4.51); Lymphocyte % 15.8 % (19-41); Mean Corp Hgb Conc 29.1 g/dL (32-36); Mean Corpuscular Hgb 28.1 pg (27.0-32.0); Mean Corpuscular Volume 96.6 fL (81-99); Mean Platelet Vol. 10.2 fl (6.2-12.0); Monocyte# 0.59 X10^3/uL; Monocyte% 5.8 % (0-10); NRBC Flagged by Analyzer 0 % (0-5); Neutrophil # 7.55 X10^3/uL (2.7-7.7); Neutrophil % 74.1 % (47-70); Platelet Count 237 K/mm3 (150-450); RBC Distribution Width CV 15.3 % (11.6-14.6); RBC Distribution Width SD 53.9 fl (35.1-43.9); Red Blood Count 2.92 M/mm3 (4.2-5.4); White Blood Count 10.2 K/mm3 (4.4-11.0)
[2022-12-20 06:08] LABS: Anion Gap 6 (5-15); BUN 62 mg/dL (7-18); BUN/Creat Ratio 34.6 RATIO (10-20); Calcium,Total 9.8 mg/dL (8.5-10.1); Chloride 121 mmol/L (98-107); Creatinine, Serum 1.79 mg/dL (0.55-1.02); EST Glomerular Filtration Rate 30 mL/min (>60); Est Glom Filt Rate - Afr Amer 36 mL/min (>60); Estimated Creatinine Clearance 23.51 ml/min; Glucose 100 mg/dL (74-106); Magnesium 2.8 mg/dL (1.6-2.6); Phosphorus 4.1 mg/dL (2.5-4.9); Potassium 4.4 mmol/L (3.5-5.1); Sodium Level 149 mmol/L (136-145)
[2022-12-20 08:44] VITALS: BP 141/84; PULSE 88; RESP 18; TEMP 36.5; O2SAT 95
[2022-12-20 08:45] VITALS: BP 141/84; PULSE 88; RESP 18; TEMP 36.5; O2SAT 95
[2022-12-20] MEDS: guaiFENesin 1,200 MG Tablet 1200 MG PO ×2 (08:49→21:13)
[2022-12-20] MEDS: Pantoprazole Sodium 40 MG Tablet PO ×2 (08:49→21:13)
[2022-12-20] MEDS: Memantine Hydrochloride 10 MG Tablet PO (08:49)
[2022-12-20] MEDS: lamoTRIgine 150 MG Tablet PO (08:50)
[2022-12-20] MEDS: Heparin Injection (Vial) 5,000 UNIT/ML VIAL 5000 UNIT SC ×2 (08:50→21:13)
[2022-12-20] MEDS: LORazepam 1 MG Tablet 2 MG PO ×2 (10:15→16:46)
--- NOTE | 2022-12-20 10:26 | PCM.PROGNOTE ---
Subjective Subjective Patient says she feels about the same. She still complains of mild esophageal dysphagia but she is able to get most foods down. Objective Data Objective Data Vital Signs: Vital Signs Temp Pulse Resp BP Pulse Ox O2 Del Method 97.7 F L 88 18 141/84 H 95 Room Air 12/20/22 08:45 12/20/22 08:45 12/20/22 08:45 12/20/22 08:45 12/20/22 08:45 12/20/22 08:45 Oxygen Delivery Method Room Air Weight: 117 lb 4.575 oz Body Mass Index (BMI) 19.5 Intake & Output: Intake and Output for Last 24 Hours 12/18/22 12/19/22 12/20/22 23:59 23:59 23:59 Intake Total 2954.17 / 2954.17 1140 / 1140 170 / 170 Output Total 5450 / 5450 3000 / 3000 1100 / 1100 Balance -2495.83 / -2495.83 -1860 / -1860 -930 / -930 Medical Nutrition Assessment Dietitian: Malnutrition Criteria Met Start: 12/15/22 12:23 Freq: Status: Active Protocol: Document 12/16/22 11:46 AG (Rec: 12/16/22 11:46 AG Desktop) Nutrition Malnutrition Evidence of Malnutrition Exists Yes Malnutrition (severe): Chronic Evidenced By Suboptimal Energy Intake ( Severe),Weight Loss (Severe) Clinical Problem Chronic Disease or Condition Related Malnutrition Etiology severe, chronic malnutrition related to inadequate oral intake d/t esophageal stenosis Signs/Symptoms as evidenced by estimated PO intake meeting <75% of estimated energy needs > 3 months; unintentional wt loss of 30.7#/21% wt loss x 4 months 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 240mL ensure plus high protein TID w/ meals Lab / Micro Data Result Diagrams: 12/20/22 05:40 12/20/22 05:40 Labs: Laboratory Results - last 24 hr 12/19/22 12:40: Hgb 8.8 L, Hct 30.4 L 12/19/22 12:40: Sodium 148 H, Potassium 3.6, Chloride 118 H, Carbon Dioxide 23.0, Anion Gap 7, BUN 62 H, Creatinine 2.04 H, Estim Creat Clear Calc 20.63, Est GFR (MDRD) Af Amer 31 L, Est GFR (MDRD) Non-Af 25 L, BUN/Creatinine Ratio 30.4 H, Glucose 138 H, Calcium 9.6 12/20/22 05:40: WBC 10.2, RBC 2.92 L, Hgb 8.2 L, Hct 28.2 L, MCV 96.6, MCH 28.1, MCHC 29.1 L, RDW Std Deviation 53.9 H, RDW Coeff of Lee 15.3 H, Plt Count 237, MPV 10.2, Immature Gran % (Auto) 1.700 H, Neut % (Auto) 74.1 H, Lymph % (Auto) 15.8 L, [place] % (Auto) 5.8, Eos % (Auto) 2.4, Baso % (Auto) 0.2, Absolute Neuts (auto) 7.6, Absolute Lymphs (auto) 1.61, Nucleated RBC % 0 12/20/22 05:40: Sodium 149 H, Potassium 4.4, Chloride 121 H, Carbon Dioxide 22.0, Anion Gap 6, BUN 62 H, Creatinine 1.79 H, Estim Creat Clear Calc 23.51, Est GFR (MDRD) Af Amer 36 L, Est GFR (MDRD) Non-Af 30 L, BUN/Creatinine Ratio 34.6 H, Glucose 100, Calcium 9.8, Phosphorus 4.1, Magnesium 2.8 H Micro: Microbiology 12/15/22 08:15 Blood Culture (Wb) - Right Hand Blood Culture - Final GNR non receiving worker 12/15/22 11:10 Urine, Catheterized Urine Culture - Final Klebsiella oxytoca 12/15/22 08:13 Blood Culture (Wb) - Anticubital Left Blood Culture - Final Klebsiella oxytoca Physical Exam Const alert, oriented x3 and no apparent distress Constitutional Narrative: Elderly HEENT normocephalic, head/scalp atraumatic and moist oral mucous membranes HEENT Narrative: Dentition is poor, Mallampati is 2, no thrush Resp normal respiratory effort, no retractions, no use of accessory muscles and clear to auscultation bilaterally Auscultation: Negative for crackles, rhonchi or wheezes Cardio regular rate, regular rhythm, S1 normal heart sound, S2 normal heart sound, no murmurs, no rub, no gallops and no clicks GI normal to inspection, nondistended, normoactive bowel sounds, soft to palpation and non-tender Extremity no clubbing, cyanosis or edema Extremity Narrative: 2+ pedal pulses Neuro oriented x3, moves all extremities and no focal motor deficits Neuro Narrative: Tremor noted, speech is slow but intelligible Psych Psych Narrative: Affect remains flat and would remains depressed however less so than on presentation Assessment & Plan Assessment/Plan (1) CITLALY (acute kidney injury): (2) Hypernatremia: (3) Hyperchloremia: (4) Leukocytosis: (5) Hyperkalemia: (6) Hypercalcemia: (7) Abnormal TSH: (8) Severe dehydration: (9) Severe malnutrition: PLAN: -Continue supplements -Dietitian is following (10) Dysphagia: PLAN: Esophageal dysphagia secondary to recurrent esophageal stricture in the lower one third of the distal esophagus. She underwent dilation with 18 mm balloon and treatment with APC to hopefully keep it open. I would recommend a Carafate slurry in order to keep the esophagus open is much as possible. . (11) Gram-negative bacteremia: (12) UTI (urinary tract infection): (13) Debility: (14) Erosive esophagitis: PLAN: . Severe erosive esophagitis refractory to medical therapy secondary to concurrent gastroparesis and hiatal hernia. Would recommend esophageal stent. Patient's says they are totally against a feeding tube. Continue aggressive PPI therapy. Continue antiemetics as previously ordered. Charges/Coding Visit Charges Inpatient E&M: 90149 Subs Hosp L2
--- NOTE | 2022-12-20 13:24 | PN.HOSP_ITS ---
Reason for Visit Reason for Visit: Diagnoses Elevated white blood cell count, unspecified (12/15/22) Unspecified severe protein-calorie malnutrition (12/15/22) Hypercalcemia (12/15/22) Dehydration (12/15/22) Hyperosmolality and hypernatremia (12/15/22) Hyperkalemia (12/15/22) Other disorders of electrolyte and fluid balance, not elsewhere classified (12/15/22) Ulcer of esophagus without bleeding (12/15/22) Acute kidney failure, unspecified (12/15/22) Urinary tract infection, site not specified (12/15/22) Dysphagia, unspecified (12/15/22) Other malaise (12/15/22) Bacteremia (12/15/22) Other specified abnormal findings of blood chemistry (12/15/22) Subjective Subjective Follow-up for esophageal stricture with reflux of oral intake and saliva. Objective Data Objective Data Vital Signs: Vital Signs Temp Pulse Resp BP Pulse Ox O2 Del Method 97.7 F L 88 18 141/84 H 95 Room Air 12/20/22 08:45 12/20/22 08:45 12/20/22 08:45 12/20/22 08:45 12/20/22 08:45 12/20/22 08:45 Oxygen Delivery Method Room Air Weight: 117 lb 4.575 oz Body Mass Index (BMI) 19.5 Intake & Output: Intake and Output for Last 24 Hours 12/18/22 12/19/22 12/20/22 23:59 23:59 23:59 Intake Total 2954.17 / 2954.17 1140 / 1140 570 / 570 Output Total 5450 / 5450 3000 / 3000 1500 / 1500 Balance -2495.83 / -2495.83 -1860 / -1860 -930 / -930 Medical Nutrition Assessment Dietitian: Malnutrition Criteria Met Start: 12/15/22 12:23 Freq: Status: Active Protocol: Document 12/16/22 11:46 AG (Rec: 12/16/22 11:46 AG Desktop) Nutrition Malnutrition Evidence of Malnutrition Exists Yes Malnutrition (severe): Chronic Evidenced By Suboptimal Energy Intake ( Severe),Weight Loss (Severe) Clinical Problem Chronic Disease or Condition Related Malnutrition Etiology severe, chronic malnutrition related to inadequate oral intake d/t esophageal stenosis Signs/Symptoms as evidenced by estimated PO intake meeting <75% of estimated energy needs > 3 months; unintentional wt loss of 30.7#/21% wt loss x 4 months 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 240mL ensure plus high protein TID w/ meals Lab / Micro Data Result Diagrams: 12/20/22 05:40 12/20/22 05:40 Labs: Laboratory Results - last 24 hr 12/19/22 12:40: Sodium 148 H, Potassium 3.6, Chloride 118 H, Carbon Dioxide 23.0, Anion Gap 7, BUN 62 H, Creatinine 2.04 H, Estim Creat Clear Calc 20.63, Est GFR (MDRD) Af Amer 31 L, Est GFR (MDRD) Non-Af 25 L, BUN/Creatinine Ratio 30.4 H, Glucose 138 H, Calcium 9.6 12/20/22 05:40: WBC 10.2, RBC 2.92 L, Hgb 8.2 L, Hct 28.2 L, MCV 96.6, MCH 28.1, MCHC 29.1 L, RDW Std Deviation 53.9 H, RDW Coeff of Lee 15.3 H, Plt Count 237, MPV 10.2, Immature Gran % (Auto) 1.700 H, Neut % (Auto) 74.1 H, Lymph % (Auto) 15.8 L, [place] % (Auto) 5.8, Eos % (Auto) 2.4, Baso % (Auto) 0.2, Absolute Neuts (auto) 7.6, Absolute Lymphs (auto) 1.61, Nucleated RBC % 0 12/20/22 05:40: Sodium 149 H, Potassium 4.4, Chloride 121 H, Carbon Dioxide 22.0, Anion Gap 6, BUN 62 H, Creatinine 1.79 H, Estim Creat Clear Calc 23.51, Est GFR (MDRD) Af Amer 36 L, Est GFR (MDRD) Non-Af 30 L, BUN/Creatinine Ratio 34.6 H, Glucose 100, Calcium 9.8, Phosphorus 4.1, Magnesium 2.8 H Micro: Microbiology 12/15/22 08:15 Blood Culture (Wb) - Right Hand Blood Culture - Final GNR non wire frame lampshade maker 12/15/22 11:10 Urine, Catheterized Urine Culture - Final Klebsiella oxytoca 12/15/22 08:13 Blood Culture (Wb) - Anticubital Left Blood Culture - Final Klebsiella oxytoca Physical Exam Narrative Patient gets bouts of cough and has history of 2 times aspiration pneumonia in the past. Patient drinks clear liquid but seems not clearly passing through and vomits in nonprojectile pattern. Clear liquid, water like Physical exam General: Alert, Oriented x3, Cooperative, fatigue, looks frail, BMI 19.5 kg/m? HEENT: Atraumatic, PERRLA, EOMI, Normocephalic Oral: Oral mucosa dry. No Gingival or Mucosal Lesions/ Ulcerations Neck: Supple, No JVD, Negative Carotid Bruits Lungs: Air entry diminished in bilateral lung bases. No crepitation/rhonchi Cardiovascular: Regular rate, Regular Rhythm, Normal S1, Normal S2, No murmurs Abdomen: Bowel Sounds Present, Soft, Non Tender, Non-Distended : No renal angle tenderness. No suprapubic tenderness. Extremities: No edema, Capillary Refill Less than 3 Seconds Skin: No rashes, No breakdown Musculoskeletal: No Tenderness to Palpation of Joints or Extremities,/10/5 at major joints in LEs Neurological: Cranial nerves II-XII grossly intact, DTR 2+/4 and Symmetrical Psych/Mental Status: Flat affect. Assessment & Plan Assessment/Plan (1) CITLALY (acute kidney injury): (2) Hypernatremia: (3) Hyperchloremia: (4) Leukocytosis: (5) Hyperkalemia: (6) Hypercalcemia: (7) Abnormal TSH: (8) Severe dehydration: (9) Severe malnutrition: (10) Dysphagia: (11) Gram-negative bacteremia: (12) UTI (urinary tract infection): (13) Debility: (14) Erosive esophagitis: PLAN: Plan 72-year-old female who was admitted for generalized weakness and fall with history of esophagitis and esophageal stricture and dilatation she had hyponatremia. 1. Klebsiella bacteremia/UTI: Patient is not a good historian and does not remember well about lower urinary tact symptoms, increased frequency urgency or burning micturition. Blood and urine culture positive of gram-negative kamila, lactose wire frame lampshade maker, Klebsiella oxytoca. On IV ceftriaxone. -Retroperitoneal ultrasound shows no hydronephrosis and only medical renal disease -We will need at least 7 days of antibiotics--> day 6 of 7. Afebrile since 12/16 2. CITLALY on CKD stage IIIb secondary to severe dehydration -Baseline serum creatinine between 1.5 and 1.9 -Serum creatinine on presentation was 3.37. Serum creatinine improving. Last one 1.79. -Continue to hold home losartan 3. Severe hypernatremia/hyperchloremia secondary to severe dehydration Serum sodium 149, chloride 121, BUN 62. Normal anion gap. Continue IV fluid D5W. Patient baseline sodium is 140- 142 Hyperparathyroidism: TSH 0.18. Free T4 normal. On methimazole. TSH low from euthyroid sick syndrome. Dysphagia/esophagitis/esophageal stenosis/nondiabetic gastroparesis -EGD done on 11/06/2022 showed grade C erosive esophagitis that was treated with argon plasma coagulation as well as a benign-appearing esophageal stenosis that was dilated and a moderately severe erosive esophagitis that was biopsied -Repeat EGD done by gastroenterology on 12/15/2022 demonstrated grade D erosive esophagitis that was treated with argon plasma coagulation, benign-appearing esophageal stenosis that was dilated, medium size hiatal hernia and a normal second portion of the duodenum.Biopsies were taken and pathology is pending. Repeat EGD recommended to be performed in 4 weeks Discussed with the flight surgeon and he recommended J-tube but patient's does not want PEG or J-tube. Possible outpatient esophageal stent -Continue home Protonix--> transition to oral -Continue home Reglan -GI is following-appreciate input -PO intake has been good -Speech therapy to reevaluate for mucus production--> start Mucinex to see if sending her secretions help some Severe malnutrition, BMI 19.5 kg/m? but patient has moderate muscle atrophy of extremity and loss of subcutaneous fat -Continue supplements -Dietitian is following -Regular diet initiated by gastroenterology after stenosis was dilated Debility - is insistent on taking her home -She currently was only able to take 3 steps with therapy yesterday-reevaluate again today -Current plan per discussion with is home with home health care once medically stable for discharge Osteoporosis -Continue Prolia as an outpatient -Continue cholecalciferol History of hyperthyroidism -Continue methimazole Chronic anemia -Macrocytic -Hemoglobin is down a bit today compared to previous -No signs of bleeding -Repeat CBC at 1300 to assess for stability -Patient is on iron supplementation at baseline--> continue -Continue oral vitamin C Leukocytosis -Resolved -Likely related to bacteremia and UTI Primary hyperparathyroidism -Continue cinaclcet Urinary incontinence -Hold home oxybutynin -Tinoco discontinued on 12/18/2022 Constipation -Continue home MiraLAX Chronic pain -Ultram on hold with renal function -Restart if needed at discharge Bipolar disorder -Continue home lorazepam -Continue home Lamictal -Mood currently seems stable -Does have baseline tremor from medication -Patient with history of renal toxicity from lithium Cognitive impairment -Per patient does have some memory issues -Continue home memantine DVT prophylaxis -Heparin twice daily CODE STATUS -Full code as verified on admission Charges/Coding Visit Charges Inpatient E&M: 26751 Subs Hosp L2
[2022-12-20 15:15] VITALS: BP 132/90; PULSE 92; RESP 16; TEMP 36.6; O2SAT 97
[2022-12-20 21:10] VITALS: BP 122/83; PULSE 89; RESP 18; TEMP 36.4; O2SAT 98
[2022-12-21 03:05] VITALS: BP 141/89; PULSE 90; RESP 16; TEMP 36.4; O2SAT 94
[2022-12-21 06:44] LABS: Anion Gap 5 (5-15); BUN 55 mg/dL (7-18); BUN/Creat Ratio 30.4 RATIO (10-20); Calcium,Total 10.4 mg/dL (8.5-10.1); Chloride 121 mmol/L (98-107); Creatinine, Serum 1.81 mg/dL (0.55-1.02); EST Glomerular Filtration Rate 29 mL/min (>60); Est Glom Filt Rate - Afr Amer 35 mL/min (>60); Estimated Creatinine Clearance 23.25 ml/min; Glucose 108 mg/dL (74-106); Potassium 4.5 mmol/L (3.5-5.1); Sodium Level 149 mmol/L (136-145)
--- NOTE | 2022-12-21 08:20 | PCM.PN.HOSP ---
Reason for Visit Reason for Visit: Diagnoses Elevated white blood cell count, unspecified (12/15/22) Unspecified severe protein-calorie malnutrition (12/15/22) Hypercalcemia (12/15/22) Dehydration (12/15/22) Hyperosmolality and hypernatremia (12/15/22) Hyperkalemia (12/15/22) Other disorders of electrolyte and fluid balance, not elsewhere classified (12/15/22) Ulcer of esophagus without bleeding (12/15/22) Acute kidney failure, unspecified (12/15/22) Urinary tract infection, site not specified (12/15/22) Dysphagia, unspecified (12/15/22) Other malaise (12/15/22) Bacteremia (12/15/22) Other specified abnormal findings of blood chemistry (12/15/22) Subjective Subjective follow-up for dysphagia, gastroparesis, hyponatremia. Objective Data Objective Data Vital Signs: Vital Signs Temp Pulse Resp BP Pulse Ox O2 Del Method 97.6 F L 90 16 141/89 H 94 Room Air 12/21/22 03:05 12/21/22 03:05 12/21/22 03:05 12/21/22 03:05 12/21/22 03:05 12/21/22 07:20 Oxygen Delivery Method Room Air Weight: 117 lb 4.575 oz Body Mass Index (BMI) 19.5 Intake & Output: Intake and Output for Last 24 Hours 12/19/22 12/20/22 12/21/22 23:59 23:59 23:59 Intake Total 1140 / 1140 1410 / 1410 1120 / 1120 Output Total 3000 / 3000 2800 / 2800 650 / 650 Balance -1860 / -1860 -1390 / -1390 470 / 470 Medical Nutrition Assessment Dietitian: Malnutrition Criteria Met Start: 12/15/22 12:23 Freq: Status: Active Protocol: Document 12/16/22 11:46 AG (Rec: 12/16/22 11:46 AG Desktop) Nutrition Malnutrition Evidence of Malnutrition Exists Yes Malnutrition (severe): Chronic Evidenced By Suboptimal Energy Intake ( Severe),Weight Loss (Severe) Clinical Problem Chronic Disease or Condition Related Malnutrition Etiology severe, chronic malnutrition related to inadequate oral intake d/t esophageal stenosis Signs/Symptoms as evidenced by estimated PO intake meeting <75% of estimated energy needs > 3 months; unintentional wt loss of 30.7#/21% wt loss x 4 months GEAR NICKER Status Active Problem Acute Disease or Injury Related Malnutrition Etiology - Signs/Symptoms - Status Inactive Problem Recommendation Dietitian Recommendations/Changes regular diet- texture/ consistency modifications as indicated; consider BRANCH LEAD consult. 240mL ensure plus high protein TID w/ meals Lab / Micro Data Result Diagrams: 12/20/22 05:40 12/21/22 05:22 Labs: Laboratory Results - last 24 hr 12/21/22 05:22: Sodium 149 H, Potassium 4.5, Chloride 121 H, Carbon Dioxide 23.0, Anion Gap 5, BUN 55 H, Creatinine 1.81 H, Estim Creat Clear Calc 23.25, Est GFR (MDRD) Af Amer 35 L, Est GFR (MDRD) Non-Af 29 L, BUN/Creatinine Ratio 30.4 H, Glucose 108 H, Calcium 10.4 H Micro: Microbiology 12/15/22 08:15 Blood Culture (Wb) - Right Hand Blood Culture - Final GNR non marble chip terrazzo worker 12/15/22 11:10 Urine, Catheterized Urine Culture - Final Klebsiella oxytoca 12/15/22 08:13 Blood Culture (Wb) - Anticubital Left Blood Culture - Final Klebsiella oxytoca Physical Exam Narrative Seen and examined. Patient is still has oral reflux of clear saliva and esophageal fluid, nonprojectile manner. Cough is better. History of aspiration pneumonia 2 times in the past. No sufficient oral intake. Physical exam General: Alert, Oriented x3, Cooperative, fatigue, frail, BMI 19.5 kg/m? HEENT: Atraumatic, PERRLA, EOMI, Normocephalic Oral: Oral mucosa dry. No Gingival or Mucosal Lesions/ Ulcerations Neck: Supple, No JVD, Negative Carotid Bruits Lungs: Air entry diminished in bilateral lung bases. No crepitation/rhonchi Cardiovascular: Regular rate, Regular Rhythm, Normal S1, Normal S2, systolic murmur right second ICS Abdomen: Bowel Sounds sluggish, Soft, Non Tender, Non-Distended : No renal angle tenderness. No suprapubic tenderness. Extremities: No edema, Capillary Refill Less than 3 Seconds Skin: No rashes, No breakdown Musculoskeletal: No Tenderness to Palpation of Joints or Extremities,/10/5 at major joints in LEs Neurological: Cranial nerves II-XII grossly intact, DTR 2+/4 and Symmetrical Psych/Mental Status: Flat affect. Assessment & Plan Assessment/Plan (1) CITLALY (acute kidney injury): (2) Hypernatremia: (3) Hyperchloremia: (4) Leukocytosis: (5) Hyperkalemia: (6) Hypercalcemia: (7) Abnormal TSH: (8) Severe dehydration: (9) Severe malnutrition: (10) Dysphagia: (11) Gram-negative bacteremia: (12) UTI (urinary tract infection): (13) Debility: (14) Erosive esophagitis: PLAN: Plan 72-year-old female who was admitted for generalized weakness and fall with history of esophagitis and esophageal stricture and dilatation she had hyponatremia. 1. Klebsiella bacteremia/UTI: Patient is not a good historian and does not remember well about lower urinary tact symptoms, increased frequency urgency or burning micturition. Blood and urine culture positive of gram-negative kamila, lactose marble chip terrazzo worker, Klebsiella oxytoca. On IV ceftriaxone. -Retroperitoneal ultrasound shows no hydronephrosis and only medical renal disease -We will need at least 7 days of antibiotics--> day 6 of 7. 12/21: Klebsiella oxytoca identified. Last day of IV antibiotic tomorrow a.m. 2. CITLALY on CKD stage IIIb secondary to severe dehydration -Baseline serum creatinine between 1.5 and 1.9 -Serum creatinine on presentation was 3.37. Serum creatinine improving. Last one 1.79. -Continue to hold home losartan 3. Severe hypernatremia/hyperchloremia secondary to severe dehydration Serum sodium 149, chloride 121, BUN 62. Normal anion gap. Continue IV fluid D5W. Patient baseline sodium is 140- 142 12/21 serum sodium is still 149. Collet Making Machine Operator consulted. Patient sodium did not go up and looks dehydrated therefore started on half-normal saline 100 mL/h for 2 L Hyperthyroidism: TSH 0.18. Free T4 normal. On methimazole. TSH low from euthyroid sick syndrome. Dysphagia/esophagitis/esophageal stenosis/nondiabetic gastroparesis -EGD done on 11/06/2022 showed grade C erosive esophagitis that was treated with argon plasma coagulation as well as a benign-appearing esophageal stenosis that was dilated and a moderately severe erosive esophagitis that was biopsied -Repeat EGD done by gastroenterology on 12/15/2022 demonstrated grade D erosive esophagitis that was treated with argon plasma coagulation, benign-appearing esophageal stenosis that was dilated, medium size hiatal hernia and a normal second portion of the duodenum.Biopsies were taken and pathology is pending. Repeat EGD recommended to be performed in 4 weeks Discussed with the commissary superintendent and he recommended J-tube but patient's does not want PEG or J-tube. Possible outpatient esophageal stent 12/21: Discussed with GI. Esophagram tomorrow AM. Patient wanted esophageal stent at this time, esophageal edition last 7 days and he started esophageal efflux and regurgitation back, flaccid vomiting. No adequate oral intake. Patient cannot on metoclopramide for gastroparesis as this has worsened her tremor/involuntary movement with possible diagnosis of tardive dyskinesia.. Started on low-dose Compazine. -Continue home Protonix--> transition to oral -Continue home Reglan -GI is following-appreciate input -PO intake has been good -Speech therapy to reevaluate for mucus production--> start Mucinex to see if sending her secretions help some Severe malnutrition, BMI 19.5 kg/m? but patient has moderate muscle atrophy of extremity and loss of subcutaneous fat -Continue supplements -Dietitian is following -Regular diet initiated by gastroenterology after stenosis was dilated Debility - is insistent on taking her home -She currently was only able to take 3 steps with therapy yesterday-reevaluate again today -Current plan per discussion with is home with home health care once medically stable for discharge Osteoporosis -Continue Prolia as an outpatient -Continue cholecalciferol History of hyperthyroidism -Continue methimazole Chronic anemia -Macrocytic -Hemoglobin is down a bit today compared to previous -No signs of bleeding -Repeat CBC at 1300 to assess for stability -Patient is on iron supplementation at baseline--> continue -Continue oral vitamin C Leukocytosis -Resolved -Likely related to bacteremia and UTI Primary hyperparathyroidism -Continue cinaclcet Urinary incontinence -Hold home oxybutynin -[place]oco discontinued on 12/18/2022 Constipation -Continue home MiraLAX Chronic pain -Ultram on hold with renal function -Restart if needed at discharge Bipolar disorder -Continue home lorazepam -Continue home Lamictal -Mood currently seems stable -Does have baseline tremor from medication -Patient with history of renal toxicity from lithium Cognitive impairment -Per patient does have some memory issues -Continue home memantine DVT prophylaxis -Heparin twice daily CODE STATUS -Full code as verified on admission Charges/Coding Visit Charges Inpatient E&M: 67340 Subs Hosp L3
[2022-12-21 08:30] VITALS: BP 161/94; PULSE 94; RESP 18; TEMP 36.3; O2SAT 95
[2022-12-21 08:32] VITALS: BP 161/94; PULSE 94; RESP 18; TEMP 36.3; O2SAT 94
[2022-12-21] MEDS: Pantoprazole Sodium 40 MG Tablet PO ×2 (08:39→21:41)
[2022-12-21] MEDS: guaiFENesin 1,200 MG Tablet 1200 MG PO ×2 (08:39→21:41)
[2022-12-21] MEDS: Cinacalcet HCl 30 MG Tablet PO (08:40)
[2022-12-21] MEDS: lamoTRIgine 150 MG Tablet PO (08:40)
[2022-12-21] MEDS: Memantine Hydrochloride 10 MG Tablet PO (08:40)
[2022-12-21] MEDS: Methimazole 5 MG Tablet PO (08:41)
[2022-12-21] MEDS: Heparin Injection (Vial) 5,000 UNIT/ML VIAL 5000 UNIT SC ×2 (08:41→21:41)
[2022-12-21] MEDS: LORazepam 1 MG Tablet 2 MG PO ×3 (08:55→21:41)
[2022-12-21] MEDS: proCHLORPERazine 5 MG Tablet PO ×2 (10:13→15:28)
--- NOTE | 2022-12-21 10:30 | PCM.PROGNOTE ---
Subjective Subjective Patient without any new complaints overnight. She is not complaining of esophageal dysphagia at this time. Objective Data Objective Data Vital Signs: Vital Signs Temp Pulse Resp BP Pulse Ox O2 Del Method 97.4 F L 94 18 161/94 H 94 Room Air 12/21/22 08:32 12/21/22 08:32 12/21/22 08:32 12/21/22 08:32 12/21/22 08:32 12/21/22 08:32 Oxygen Delivery Method Room Air Weight: 117 lb 4.575 oz Body Mass Index (BMI) 19.5 Intake & Output: Intake and Output for Last 24 Hours 12/19/22 12/20/22 12/21/22 23:59 23:59 23:59 Intake Total 1140 / 1140 1410 / 1410 1170 / 1170 Output Total 3000 / 3000 2800 / 2800 650 / 650 Balance -1860 / -1860 -1390 / -1390 520 / 520 Medical Nutrition Assessment Dietitian: Malnutrition Criteria Met Start: 12/15/22 12:23 Freq: Status: Active Protocol: Document 12/16/22 11:46 AG (Rec: 12/16/22 11:46 AG Desktop) Nutrition Malnutrition Evidence of Malnutrition Exists Yes Malnutrition (severe): Chronic Evidenced By Suboptimal Energy Intake ( Severe),Weight Loss (Severe) Clinical Problem Chronic Disease or Condition Related Malnutrition Etiology severe, chronic malnutrition related to inadequate oral intake d/t esophageal stenosis Signs/Symptoms as evidenced by estimated PO intake meeting <75% of estimated energy needs > 3 months; unintentional wt loss of 30.7#/21% wt loss x 4 months 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 240mL ensure plus high protein TID w/ meals Lab / Micro Data Result Diagrams: 12/20/22 05:40 12/21/22 05:22 Labs: Laboratory Results - last 24 hr 12/21/22 05:22: Sodium 149 H, Potassium 4.5, Chloride 121 H, Carbon Dioxide 23.0, Anion Gap 5, BUN 55 H, Creatinine 1.81 H, Estim Creat Clear Calc 23.25, Est GFR (MDRD) Af Amer 35 L, Est GFR (MDRD) Non-Af 29 L, BUN/Creatinine Ratio 30.4 H, Glucose 108 H, Calcium 10.4 H Micro: Microbiology 12/15/22 08:15 Blood Culture (Wb) - Right Hand Blood Culture - Final GNR non email marketing intern 12/15/22 11:10 Urine, Catheterized Urine Culture - Final Klebsiella oxytoca 12/15/22 08:13 Blood Culture (Wb) - Anticubital Left Blood Culture - Final Klebsiella oxytoca Physical Exam Narrative Physical exam General: Alert, Oriented x3, Cooperative, fatigue, looks frail, BMI 19.5 kg/m? HEENT: Atraumatic, PERRLA, EOMI, Normocephalic Oral: Oral mucosa dry. No Gingival or Mucosal Lesions/ Ulcerations Neck: Supple, No JVD, Negative Carotid Bruits Lungs: Air entry diminished in bilateral lung bases. No crepitation/rhonchi Cardiovascular: Regular rate, Regular Rhythm, Normal S1, Normal S2, No murmurs Abdomen: Bowel Sounds Present, Soft, Non Tender, Non-Distended : No renal angle tenderness. No suprapubic tenderness. Extremities: No edema, Capillary Refill Less than 3 Seconds Skin: No rashes, No breakdown Musculoskeletal: No Tenderness to Palpation of Joints or Extremities,/10/5 at major joints in LEs Neurological: Cranial nerves II-XII grossly intact, DTR 2+/4 and Symmetrical Psych/Mental Status: Flat affect. Assessment & Plan Assessment/Plan (1) CITLALY (acute kidney injury): (2) Hypernatremia: (3) Hyperchloremia: (4) Leukocytosis: (5) Hyperkalemia: (6) Hypercalcemia: (7) Abnormal TSH: (8) Severe dehydration: (9) Severe malnutrition: PLAN: -Continue supplements -Dietitian is following (10) Dysphagia: PLAN: Esophageal dysphagia secondary to recurrent esophageal stricture in the lower one third of the distal esophagus. She underwent dilation with 18 mm balloon and treatment with APC to hopefully keep it open. I would recommend a Carafate slurry in order to keep the esophagus open is much as possible. . Would also recommend to repeat swallowing study and consider repeating barium esophagram (11) Gram-negative bacteremia: (12) UTI (urinary tract infection): (13) Debility: (14) Erosive esophagitis: PLAN: . Severe erosive esophagitis refractory to medical therapy secondary to concurrent gastroparesis and hiatal hernia. Would recommend esophageal stent. Patient's says they are totally against a feeding tube. Continue aggressive PPI therapy. Continue antiemetics as previously ordered. Charges/Coding Visit Charges Inpatient E&M: 78199 [facility] Hosp L3
[2022-12-21] MEDS: 0.45% Normal Saline 1,000 ML 100 ML IV ×2 (12:46→21:47)
[2022-12-21] MEDS: Ondansetron 4 MG/2 ML Vial IV (12:46)
[2022-12-21 15:05] VITALS: BP 139/98; PULSE 96; RESP 18; TEMP 36.6; O2SAT 94
[2022-12-21 16:46] VITALS: BP 139/98; PULSE 96; RESP 18; TEMP 36.6; O2SAT 94
[2022-12-21 21:39] VITALS: BP 149/92; PULSE 95; RESP 18; TEMP 36.9; O2SAT 94
[2022-12-22] VITALS (8 sets, daily range): BP systolic 116–184; BP diastolic 80–101; PULSE 83–102; RESP 16–20; TEMP 36.5–37.1; O2SAT 94–100
[2022-12-22 05:11] LABS: Anion Gap 5 (5-15); BUN 54 mg/dL (7-18); BUN/Creat Ratio 31.2 RATIO (10-20); Calcium,Total 10.2 mg/dL (8.5-10.1); Chloride 121 mmol/L (98-107); Creatinine, Serum 1.73 mg/dL (0.55-1.02); EST Glomerular Filtration Rate 31 mL/min (>60); Est Glom Filt Rate - Afr Amer 37 mL/min (>60); Estimated Creatinine Clearance 24.32 ml/min; Glucose 109 mg/dL (74-106); Potassium 4.4 mmol/L (3.5-5.1); Sodium Level 150 mmol/L (136-145)
--- NOTE | 2022-12-22 05:55 | RAD_ITS ---
STUDY: X-RAY - ESOPHAGUS (BARIUM SWALLOW) WITH FLUOROSCOPY REASON FOR EXAM: Female, 72 years old. Esophageal dysphagia TECHNIQUE: 19 view(s) of the esophagus were obtained following swallowing of barium. FLUOROSCOPY TIME (if supplied): (29 seconds) minutes/seconds COMPARISON: None. FINDINGS: There is evidence of an apple core lesion involving the mid and distal portion of the esophagus. There is dilatation of the proximal esophagus. Small hiatal hernia without gaseous esophageal reflux. There is atherosclerotic calcification of the aortic arch with tortuosity of the descending aorta. Normal visualized pulmonary parenchyma. There are diffuse degenerative changes of the visualized thoracic spine. RAD/Esophagus Dual Contrast IMPRESSION: Apple core lesion of the mid and distal portion of the esophagus with dilatation of the proximal esophagus. Endoscopic correlation is recommended. Electronically Signed: Cheng Schmitt MD at 13:37 EST ,
[2022-12-22] MEDS: proCHLORPERazine 5 MG Tablet PO (06:11)
--- NOTE | 2022-12-22 08:18 | CON.PCM.RE_ITS ---
Assessment & Plan Assessment/Plan (1) CITLALY (acute kidney injury): (2) CKD (chronic kidney disease), stage III: (3) Hypernatremia: (4) Hypercalcemia: PLAN: Plan Patient was admitted to the hospital after presenting with complaints of weakness and falls, admitted for severe dehydration and malnutrition, CITLALY, h yperkalemia (potassium 5.5), hypercalcemia (calcium 10.3). Since being in the hospital patient has been seen by GI for dysphagia. She has a history of recurrent esophageal stricture and has undergone dilatation. Also has a history of severe erosive esophagitis (patient had EGD done on 11/06/2022 which showed grade C erosive esophagitis treated with argon plasma coagulation, esophageal stenosis that was dilated and moderately severe erosive esophagitis that was biopsied; repeat EGD on 12/15/2022 demonstrated grade D erosive esophagitis, esophageal stenosis that was dilated and biopsies taken which are pending). Patient is n.p.o. for further GI testing today. Patient has poor oral oral inta ke. She is currently on IV fluids, normal saline. 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 She has a history of acute on chronic hypernatremia (sodium 166 on admission, peaked at 168 and today is 150). Patient has been on amiloride and desmopressin in the past, she was also on a thiazide diuretic but stopped due to hypercalcemia. In past with increasing free water intake and D5W sodium levels improved. We will stop normal saline and start D5W. Once patient is able to take oral intake encouraged patient to push free water and patient will need reinforcement of water intake. For hypercalcemia, will increase Sensipar to daily. For CITLALY, possibly from volume depletion with concurrent losartan use. With IV fluids and holding losartan renal function has improved. Creatinine was 3.37 mg/dL on admission (this was peak), and has improved to 1.73 mg/dL. No acute indication for HEAD CAGER. Patient is nonoliguric. Continue to hold losartan as you are doing. Blood pressures are acceptable. Further orders forthcoming as hospitalization evolves. Thank allowing us participate in the care of Ms. Escamilla. HPI Consult Data Date of Consult: 12/22/22 HPI Narrative HPI Narrative: SIMONA ESCAMILLA, is a 72 F with past history significant for CKD stage III, hypertension, history of nephrogenic diabetes insipidus with history of chronic hypernatremia, hypercalcemia who presented to the emergency room on December 15 with her for evaluation of weakness and falls. Patient was admitted for severe dehydration and malnutrition, CITLALY, hyperkalemia, hypercalcemia. We were consulted for CITLALY and hypernatremia. Patient has a known history of chronic hyponatremia and CKD stage III with baseline creatinine around 1.4 to 1.7 mg/dL. Patient is alert to name, she is having difficult time recalling recent events. Patient is n.p.o. today. Patient is complaining of feeling thirsty. Denies any nausea or vomiting. [facility] Medical History (Updated 12/17/22 @ 16:[address] Portia Shelby, DO) CITLALY (acute kidney injury) Anemia Anxiety Back pain Bipolar disorder Bipolar disorder with moderate depression Bladder disease Delirium due to multiple etiologies Diabetes insipidus Dietary restriction Difficulty chewing Falls Former smoker Gastric reflux Gastroparesis Generalized weakness History of edema History of herpes zoster History of hiatal hernia Hypercalcemia Hypernatremia Hypertension Post-menopausal Pulmonary emboli Secondary hyperparathyroidism of renal origin Severe malnutrition Tardive dyskinesia Thyroid disease Unsteady gait Wears glasses Home Medications cinacalcet 30 mg tablet 30 mg PO SUMOWEFR THYROID 10/04/20 [History Last Taken 12/14/22] methimazole 5 mg tablet 5 mg PO SUMOWEFR . 10/04/20 [History Last Taken 12/14/22] memantine 10 mg tablet 10 mg PO DAILY . 01/03/21 [History Last Taken 12/14/22] cholecalciferol (vitamin D3) 50 mcg (2,000 unit) capsule 2,000 unit PO DAILY SUPPLEMENT 01/15/21 [History Last Taken 12/14/22] ferrous sulfate 325 mg (65 mg iron) tablet 325 mg PO BID SUPPLEMENT 01/15/21 [ History Last Taken 12/14/22] tramadol 50 mg tablet 50 mg PO BID PAIN 01/21/22 [History Last Taken 12/14/22] denosumab 60 mg/mL subcutaneous syringe (Prolia) 60 mg subcut .Q6MO . 09/05/22 [History Last Taken 08/27/22] lorazepam 2 mg tablet 2 mg PO 4XD . 09/05/22 [History Last Taken 12/14/22] losartan 25 mg tablet 25 mg PO DAILY . 09/05/22 [History Last Taken 12/14/22] oxybutynin chloride 15 mg tablet,extended release 24 hr 15 mg PO DAILY . 09/05/22 [History Last Taken 12/14/22] polyethylene glycol 3350 17 gram/dose oral powder (Miralax) 17 g PO DAILY LAXATIVE 09/05/22 [History Last Taken 09/05/22] ascorbic acid (vitamin C) 1,000 mg tablet (Vitamin C) 1 g PO DAILY SUPPLEMENT 12/15/22 [History Last Taken 12/14/22] lamotrigine 100 mg tablet 150 mg PO DAILY . 12/15/22 [History Last Taken ] metoclopramide HCl 5 mg tablet 5 mg PO BID . 12/15/22 [History Last Taken 12/14/22] pantoprazole 40 mg tablet,delayed release (Protonix) 40 mg PO BID GERD 12/15/22 [History Last Taken 12/14/22] Allergy/AdvReac Type Severity Reaction Status Date / Time No Known Allergies Allergy Verified 12/15/22 06:32 Family History unable to obtain Surgical History (Updated 12/15/22 @ 17:[address] Portia Shelby, DO) History of esophagogastroduodenoscopy (EGD) Hx of esophagogastroduodenoscopy Social History (Updated 12/15/22 @ 17:[address] Portia Shelby, ) household members: spouse housing: house Smoking Status: Former smoker alcohol intake: never substance use type: does not use additional social history: Ambulates at baseline without assistive device Physical Exam Narrative Alert to name, confused to recent events S1, S2, RRR Lung sounds clear anteriorly and posteriorly. No wheezes rhonchi or rales noted Abdomen soft, nontender, positive bowel sounds No edema Medical Records Data Medical Nutrition Assessment Dietitian: Malnutrition Criteria Met Start: 12/15/22 12:2 3 Freq: Status: Active Protocol: Document 12/16/22 11:46 AG (Rec: 12/16/22 11:46 AG Desktop) Nutrition Malnutrition Evidence of Malnutrition Exists Yes Malnutrition (severe): Chronic Evidenced By Suboptimal Energy Intake ( Severe),Weight Loss (Severe) Clinical Problem Chronic Disease or Condition Related Malnutrition Etiology severe, chronic malnutrition related to inadequate oral intake d/t esophageal stenosis Signs/Symptoms as evidenced by estimated PO intake meeting <75% of estimated energy needs > 3 months; unintentional wt loss of 30.7#/21% wt loss x 4 months KNIFER UP Status Active Problem Acute Disease or Injury Related Malnutrition Etiology - Signs/Symptoms - Status Inactive Problem Recommendation Dietitian Recommendations/Changes regular diet- texture/ consistency modifications as indicated; consider GHOST WRITER consult. 240mL ensure plus high protein TID w/ meals Lab / Micro Data Result Diagrams: 12/20/22 05:40 12/22/22 04:25 Labs: Laboratory Results - last 24 hr 12/22/22 04:25: Sodium 150 H, Potassium 4.4, Chloride 121 H, Carbon Dioxide 24.0, Anion Gap 5, BUN 54 H, Creatinine 1.73 H, Estim Creat Clear Calc 24.32, Est GFR (MDRD) Af Amer 37 L, Est GFR (MDRD) Non-Af 31 L, BUN/Creatinine Ratio 31.2 H, Glucose 109 H, Calcium 10.2 H
[2022-12-22] MEDS: Memantine Hydrochloride 10 MG Tablet PO (08:25)
[2022-12-22] MEDS: lamoTRIgine 150 MG Tablet PO (08:25)
[2022-12-22] MEDS: Pantoprazole Sodium 40 MG Tablet PO ×2 (08:26→20:49)
[2022-12-22] MEDS: guaiFENesin 1,200 MG Tablet 1200 MG PO ×2 (08:26→20:49)
[2022-12-22] MEDS: Methimazole 5 MG Tablet PO (08:26)
--- NOTE | 2022-12-22 14:50 | NURSING ---
Pt to surgery via tech
--- NOTE | 2022-12-22 14:58 | PN.HOSP_ITS ---
Reason for Visit Reason for Visit: Diagnoses Elevated white blood cell count, unspecified (12/15/22) Unspecified severe protein-calorie malnutrition (12/15/22) Hypercalcemia (12/15/22) Dehydration (12/15/22) Hyperosmolality and hypernatremia (12/15/22) Hyperkalemia (12/15/22) Other disorders of electrolyte and fluid balance, not elsewhere classified (12/15/22) Ulcer of esophagus without bleeding (12/15/22) Acute kidney failure, unspecified (12/15/22) Urinary tract infection, site not specified (12/15/22) Dysphagia, unspecified (12/15/22) Other malaise (12/15/22) Bacteremia (12/15/22) Other specified abnormal findings of blood chemistry (12/15/22) Subjective Subjective Follow-up for dysphagia, gastroparesis, hyponatremia. Objective Data Objective Data Vital Signs: Vital Signs Temp Pulse Resp BP Pulse Ox O2 Del Method 97.8 F 93 18 143/84 H 95 Room Air 12/22/22 09:40 12/22/22 09:40 12/22/22 09:40 12/22/22 09:40 12/22/22 09:40 12/22/22 09:40 Oxygen Delivery Method Room Air Weight: 117 lb 4.575 oz Body Mass Index (BMI) 19.5 Intake & Output: Intake and Output for Last 24 Hours 12/20/22 12/21/22 12/22/22 23:59 23:59 23:59 Intake Total 1410 / 1410 2647.92 / 2887.92 1290 / 1290 Output Total 2800 / 2800 1000 / 1800 2250 / 2250 Balance -1390 / -1390 1647.92 / 1087.92 -960 / -960 Medical Nutrition Assessment Dietitian: Malnutrition Criteria Met Start: 12/15/22 12:23 Freq: Status: Active Protocol: Document 12/22/22 12:29 RMA (Rec: 12/22/22 12:29 RMA [id number]) Nutrition Malnutrition Evidence of Malnutrition Exists Yes Malnutrition (severe): Chronic Evidenced By Suboptimal Energy Intake ( Severe),Weight Loss (Severe) Clinical Problem Chronic Disease or Condition Related Malnutrition Etiology severe, chronic malnutrition related to inadequate oral intake d/t esophageal stenosis Signs/Symptoms as evidenced by estimated PO intake meeting <75% of estimated energy needs > 3 months; unintentional wt loss of 30.7#/21% wt loss x 4 months 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 Continue 240mL ensure plus high protein TID w/ meals. Will add vanilla magic cup w/ lunch meal as tolerated. Lab / Micro Data Result Diagrams: 12/20/22 05:40 12/22/22 04:25 Labs: Laboratory Results - last 24 hr 12/22/22 04:25: Sodium 150 H, Potassium 4.4, Chloride 121 H, Carbon Dioxide 24.0, Anion Gap 5, BUN 54 H, Creatinine 1.73 H, Estim Creat Clear Calc 24.32, Est GFR (MDRD) Af Amer 37 L, Est GFR (MDRD) Non-Af 31 L, BUN/Creatinine Ratio 31.2 H, Glucose 109 H, Calcium 10.2 H Micro: Microbiology 12/15/22 08:15 Blood Culture (Wb) - Right Hand Blood Culture - Final GNR non owner/photographer 12/15/22 11:10 Urine, Catheterized Urine Culture - Final Klebsiella oxytoca 12/15/22 08:13 Blood Culture (Wb) - Anticubital Left Blood Culture - Final Klebsiella oxytoca Radiography Diagnostic Testing: Radiology Impression Barium Swallow X-Ray 12/22/22 05:55 IMPRESSION: Apple core lesion of the mid and distal portion of the esophagus with dilatation of the proximal esophagus. Endoscopic correlation is recommended. Electronically Signed: Cheng Schmitt MD at 13:37 EST , Physical Exam Narrative Seen and examined. Patient is still has oral efflux of clear saliva and esophageal fluid, nonprojectile manner. Cough is better. History of aspiration pneumonia 2 times in the past. No sufficient oral intake. Sodium still high. Physical exam General: Alert, Oriented x3, Cooperative, fatigue, frail, BMI 19.5 kg/m?, well hydrated. HEENT: Atraumatic, PERRLA, EOMI, Normocephalic Oral: Oral mucosa moist, no Gingival or Mucosal Lesions/ Ulcerations Neck: Supple, No JVD, Negative Carotid Bruits Lungs: Air entry diminished in bilateral lung bases. No crepitation/rhonchi Cardiovascular: Regular rate, Regular Rhythm, Normal S1, Normal S2, systolic murmur right second ICS Abdomen: Bowel Sounds sluggish, Soft, Non Tender, Non-Distended : No renal angle tenderness. No suprapubic tenderness. Extremities: No edema, Capillary Refill Less than 3 Seconds Skin: No rashes, No breakdown Musculoskeletal: No Tenderness to Palpation of Joints or Extremities,/10/5 at major joints in LEs Neurological: Cranial nerves II-XII grossly intact, DTR 2+/4 and Symmetrical Psych/Mental Status: Flat affect. Assessment & Plan Assessment/Plan (1) CITLALY (acute kidney injury): (2) Hypernatremia: (3) Hyperchloremia: (4) Leukocytosis: (5) Hyperkalemia: (6) Hypercalcemia: (7) Abnormal TSH: (8) Severe dehydration: (9) Severe malnutrition: (10) Dysphagia: (11) Gram-negative bacteremia: (12) UTI (urinary tract infection): (13) Debility: (14) Erosive esophagitis: PLAN: Plan 72-year-old female who was admitted for generalized weakness and fall with history of esophagitis and esophageal stricture and dilatation she had hyponatremia. 1. Klebsiella bacteremia/UTI: Patient is not a good historian and does not remember well about lower urinary tact symptoms, increased frequency urgency or burning micturition. Blood and urine culture positive of gram-negative kamila, lactose owner/photographer, Klebsiella oxytoca. On IV ceftriaxone. -Retroperitoneal ultrasound shows no hydronephrosis and only medical renal d isease -We will need at least 7 days of antibiotics--> day 6 of 7. 12/21: Klebsiella oxytoca identified. Last day of IV antibiotic tomorrow a.m. 12/22: Patient completed antibiotic today. 2. CITLALY on CKD stage IIIb secondary to severe dehydration -Baseline serum creatinine between 1.5 and 1.9 -Serum creatinine on presentation was 3.37. Serum creatinine improving. Last one 1.79. -Continue to hold home losartan 12/22: Creatinine 1.73 3. Severe hypernatremia/hyperchloremia secondary to severe dehydration Serum sodium 149, chloride 121, BUN 62. Normal anion gap. Continue IV fluid D5W. Patient baseline sodium is 140- 142 2 serum sodium is still 149. Cloth Neutralizer consulted. Patient sodium did not go up and looks dehydrated therefore started on half-normal saline 100 mL/h for 2 L Hyperthyroidism: TSH 0.18. Free T4 normal. On methimazole. TSH low from euthyroid sick syndrome. 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 In the past he had amiloride and desmopressin, reason of discontinuation of unclear. Patient is started on Cinacalcet. Hospital pharmacy does not have amiloride as formulary. Patient on D5W. Dysphagia/esophagitis/esophageal stenosis/nondiabetic gastroparesis -EGD done on 11/06/2022 showed grade C erosive esophagitis that was treated with argon plasma coagulation as well as a benign-appearing esophageal stenosis that was dilated and a moderately severe erosive esophagitis that was biopsied -Repeat EGD done by gastroenterology on 12/15/2022 demonstrated grade D erosive esophagitis that was treated with argon plasma coagulation, benign-appearing esophageal stenosis that was dilated, medium size hiatal hernia and a normal second portion of the duodenum.Biopsies were taken and pathology is pending. Repeat EGD recommended to be performed in 4 weeks Discussed with the striper and he recommended J-tube but patient's does not want PEG or J-tube. Possible outpatient esophageal stent 12/21: Discussed with GI. Esophagram tomorrow AM. Patient wanted e sophageal stent at this time, esophageal edition last 7 days and he started esophageal efflux and regurgitation back, flaccid vomiting. No adequate oral intake. Patient cannot on metoclopramide for gastroparesis as this has worsened her tremor/involuntary movement with possible diagnosis of tardive dyskinesia.. Started on low-dose Compazine. 12/22: Plan for esophageal stenting. Barium esophagus shows mid to lower esophagus apple core lesion with proximal dilatation. -Continue home Protonix--> transition to oral -Continue home Reglan -GI is following-appreciate input -PO intake has been good -Speech therapy to reevaluate for mucus production--> start Mucinex to see if sending her secretions help some Severe malnutrition, BMI 19.5 kg/m? but patient has moderate muscle atrophy of extremity and loss of subcutaneous fat -Continue supplements -Dietitian is following -Regular diet initiated by gastroenterology after stenosis was dilated Debility - is insistent on taking her home -She currently was only able to take 3 steps with therapy yesterday-reevaluate again today -Current plan per discussion with is home with home health care once medically stable for discharge Osteoporosis -Continue Prolia as an outpatient -Continue cholecalciferol History of hyperthyroidism -Continue methimazole Chronic anemia -Macrocytic 12/22: Hemoglobin gradually decreasing from 9.7-8.2. Heparin subcutaneous discontinued. Stool for occult blood and iron work-up ordered Leukocytosis -Resolved -Likely related to bacteremia and UTI Primary hyperparathyroidism -Continue cinaclcet Urinary incontinence -Hold home oxybutynin -Tinoco discontinued on 12/18/2022 Constipation -Continue home MiraLAX Chronic pain -Ultram on hold with renal function -Restart if needed at discharge Bipolar disorder -Continue home lorazepam -Continue home Lamictal -Mood currently seems stable -Does have baseline tremor from medication -Patient with history of renal toxicity from lithium Cognitive impairment -Per patient does have some memory issues -Continue home memantine DVT prophylaxis -Heparin twice daily CODE STATUS -Full code as verified on admission Total time of the visit including total time spent in counseling or coordination of care, (more than 50% of the total time, spent in obtaining medical information from nurses and other ancillary care providers,explaining to the patient about labs, imaging, diagnosis and management of active complex medical conditions), discussion with nephrology, review of labs and imaging, clinical update to patient's at the bedside is 50 minutes. Charges/Coding Visit Charges Inpatient E&M: 28444 [facility] Hosp L3
--- NOTE | 2022-12-22 16:27 | OP.CCLET_ITS ---
12/22/2022 Jay Kincaid Re : Upper GI endoscopy procedure for Fior Escamilla Dear Codi This procedure was performed on Thursday, December 22, 2022. My impressions and recommendations are as follows: Impressions : - Benign-appearing esophageal stenosis. Dilated. - Medium-sized hiatal hernia. - Normal second portion of the duodenum. Biopsied. Recommendations : - [facility]. - Use sucralfate tablets 1 gram PO QID. - Use Protonix (pantoprazole) 40 mg PO BID. - Continue present medications. My findings are described in the full procedure note, which is enclosed. If I can be of further assistance, please feel free to contact me at . Sincerely, Francis Verma, 12/22/2022 4:26:54 PM This report has been signed electronically.
--- NOTE | 2022-12-22 16:27 | OP.EGD_ITS ---
Patient Name: Fior Escamilla Procedure Date: 12/22/2022 3:43 PM Date of : 1950 Age: 72 Procedure: Upper GI endoscopy Indications: Dysphagia Providers: Francis Verma DO Medicines: Monitored Anesthesia Care Patient Profile: This is a 72 year old female. Refer to note in patient chart for documentation of history and physical. Patient has symptoms of acute dysphagia. Complications: No immediate complications. Procedure: Pre-Anesthesia Assessment: - Prior to the procedure, a History and Physical was performed, and patient medications and allergies were reviewed. The risks and benefits of the procedure and the sedation options and risks were discussed with the patient. All questions were answered and informed consent was obtained. Patient identification and proposed procedure were verified by the physician in the pre-procedure area. Mental Status Examination: alert and oriented. Airway Examination: normal oropharyngeal airway and neck mobility. Respiratory Examination: clear to auscultation. CV Examination: normal. Prophylactic Antibiotics: The patient does not require prophylactic antibiotics. Prior Anticoagulants: The patient has taken no previous anticoagulant or antiplatelet agents. ASA Grade Assessment: II - A patient with mild systemic disease. After reviewing the risks and benefits, the patient was deemed in satisfactory condition to undergo the procedure. The anesthesia plan was to use monitored anesthesia care (MAC). Immediately prior to administration of medications, the patient was re-assessed for adequacy to receive sedatives. The heart rate, respiratory rate, oxygen saturations, blood pressure, adequacy of pulmonary ventilation, and response to care were monitored throughout the procedure. The physical status of the patient was re-assessed after the procedure. After obtaining informed consent, the endoscope was passed under direct vision. Throughout the procedure, the patient's blood pressure, pulse, and oxygen saturations were monitored continuously. The Endoscope was introduced through the mouth, and advanced to the second part of duodenum. The upper GI endoscopy was accomplished without difficulty. The patient tolerated the procedure well. Scope In: 4:03:23 PM Scope Out: 4:16:30 PM Total Procedure Duration Time 0 hours 13 minutes 7 seconds Findings: One benign-appearing, intrinsic stenosis was found 30 to 35 cm from the incisors. This stenosis was severe and measured 5 mm (inner diameter) x 5 cm (in length). The stenosis was traversed after dilation. A TTS dilator was passed through the scope. Dilation with an 18-19-20 mm balloon dilator was performed to 20 mm. The dilation site was examined and showed complete resolution of luminal narrowing. Estimated blood loss was minimal. A medium-sized hiatal hernia was present. The second portion of the duodenum was normal. Biopsies were taken with a cold forceps for histology. Verification of patient identification for the specimen was done. Estimated blood loss was minimal. Impression: - Benign-appearing esophageal stenosis. Dilated. - Medium-sized hiatal hernia. - Normal second portion of the duodenum. Biopsied. Recommendation: - [facility]. - Use sucralfate tablets 1 gram PO QID. - Use Protonix (pantoprazole) 40 mg PO BID. - Continue present medications. Procedure Code(s): --- Professional --- 07036, Esophagogastroduodenoscopy, flexible, transoral; with transendoscopic balloon dilation of esophagus (less than 30 mm diameter) 13930, 59,51, Esophagogastroduodenoscopy, flexible, transoral; with biopsy, single or multiple CPT copyright 2017 [employer]. All rights reserved. The codes documented in this report are preliminary and upon him coder review may be revised to meet current compliance requirements. Francis Verma DO 12/22/2022 4:26:54 PM This report has been signed electronically. Number of Addenda: 0 Note Initiated On: 12/22/2022 3:43 PM
--- NOTE | 2022-12-22 17:01 | PCM.PROGNOTE ---
Subjective Subjective Fior underwent an upper endoscopy today for worsening anemia and worsening esophageal dysphagia. She was discovered to have a severe esophageal ring at the mid to proximal esophagus that was dilated approximately a week ago. She also had some bleeding stigmata. Dilation was successful. Objective Data Objective Data Vital Signs: Vital Signs Temp Pulse Resp BP Pulse Ox O2 Del Method 98.7 F 88 16 184/94 H 98 Room Air 12/22/22 16:40 12/22/22 16:40 12/22/22 16:40 12/22/22 16:40 12/22/22 16:40 12/22/22 16:40 Oxygen Delivery Method Room Air Weight: 117 lb 4.575 oz Body Mass Index (BMI) 19.5 Intake & Output: Intake and Output for Last 24 Hours 12/20/22 12/21/22 12/22/22 23:59 23:59 23:59 Intake Total 1410 / 1410 2647.92 / 2887.92 1790 / 1790 Output Total 2800 / 2800 1000 / 1800 2250 / 2250 Balance -1390 / -1390 1647.92 / 1087.92 -460 / -460 Medical Nutrition Assessment Dietitian: Malnutrition Criteria Met Start: 12/15/22 12:23 Freq: Status: Active Protocol: Document 12/22/22 12:29 RMA (Rec: 12/22/22 12:29 RMA [id number]) Nutrition Malnutrition Evidence of Malnutrition Exists Yes Malnutrition (severe): Chronic Evidenced By Suboptimal Energy Intake ( Severe),Weight Loss (Severe) Clinical Problem Chronic Disease or Condition Related Malnutrition Etiology severe, chronic malnutrition related to inadequate oral intake d/t esophageal stenosis Signs/Symptoms as evidenced by estimated PO intake meeting <75% of estimated energy needs > 3 months; unintentional wt loss of 30.7#/21% wt loss x 4 months 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 Continue 240mL ensure plus high protein TID w/ meals. Will add vanilla magic cup w/ lunch meal as tolerated. Lab / Micro Data Result Diagrams: 12/20/22 05:40 12/22/22 04:25 Labs: Laboratory Results - last 24 hr 12/22/22 04:25: Sodium 150 H, Potassium 4.4, Chloride 121 H, Carbon Dioxide 24.0, Anion Gap 5, BUN 54 H, Creatinine 1.73 H, Estim Creat Clear Calc 24.32, Est GFR (MDRD) Af Amer 37 L, Est GFR (MDRD) Non-Af 31 L, BUN/Creatinine Ratio 31.2 H, Glucose 109 H, Calcium 10.2 H Micro: Microbiology 12/15/22 08:15 Blood Culture (Wb) - Right Hand Blood Culture - Final GNR non residential tech 12/15/22 11:10 Urine, Catheterized Urine Culture - Final Klebsiella oxytoca 12/15/22 08:13 Blood Culture (Wb) - Anticubital Left Blood Culture - Final Klebsiella oxytoca Radiography Diagnostic Testing: Radiology Impression Barium Swallow X-Ray 12/22/22 05:55 IMPRESSION: Apple core lesion of the mid and distal portion of the esophagus with dilatation of the proximal esophagus. Endoscopic correlation is recommended. Electronically Signed: Cheng Schmitt MD at 13:37 EST , Physical Exam Narrative Seen and examined. Patient is still has oral reflux of clear saliva and esophageal fluid, nonprojectile manner. Cough is better. History of aspiration pneumonia 2 times in the past. No sufficient oral intake. Physical exam General: Alert, Oriented x3, Cooperative, fatigue, frail, BMI 19.5 kg/m? HEENT: Atraumatic, PERRLA, EOMI, Normocephalic Oral: Oral mucosa dry. No Gingival or Mucosal Lesions/ Ulcerations Neck: Supple, No JVD, Negative Carotid Bruits Lungs: Air entry diminished in bilateral lung bases. No crepitation/rhonchi Cardiovascular: Regular rate, Regular Rhythm, Normal S1, Normal S2, systolic murmur right second ICS Abdomen: Bowel Sounds sluggish, Soft, Non Tender, Non-Distended : No renal angle tenderness. No suprapubic tenderness. Extremities: No edema, Capillary Refill Less than 3 Seconds Skin: No rashes, No breakdown Musculoskeletal: No Tenderness to Palpation of Joints or Extremities,/10/5 at major joints in LEs Neurological: Cranial nerves II-XII grossly intact, DTR 2+/4 and Symmetrical Psych/Mental Status: Flat affect. Assessment & Plan Assessment/Plan (1) CITLALY (acute kidney injury): (2) Hypernatremia: (3) Hyperchloremia: (4) Leukocytosis: (5) Hyperkalemia: (6) Hypercalcemia: (7) Abnormal TSH: (8) Severe dehydration: (9) Severe malnutrition: PLAN: -Continue supplements -Dietitian is following (10) Dysphagia: PLAN: Esophageal dysphagia secondary to recurrent esophageal stricture in the lower one third of the distal esophagus. She underwent dilation with 18 mm balloon and treatment with APC to hopefully keep it open. I would recommend a Carafate slurry in order to keep the esophagus open is much as possible. . I also recommended that she see ENT and neurology as she has a significant esophageal dysmotility disorder and the fact that her esophagus does not contract in I would like neurology's and psychiatry's input and regarding possible medication side effects causing severe gastroparesis and esophageal dysmotility. (11) Gram-negative bacteremia: (12) UTI (urinary tract infection): (13) Debility: (14) Erosive esophagitis: PLAN: . Severe erosive esophagitis refractory to medical therapy secondary to concurrent gastroparesis and hiatal hernia. Would recommend esophageal stent. Patient's says they are totally against a feeding tube. Continue aggressive PPI therapy. Continue antiemetics as previously ordered. Charges/Coding Visit Charges Inpatient E&M: 60367 Subs Hosp L2
[2022-12-22] MEDS: LORazepam 1 MG Tablet 2 MG PO ×2 (17:44→20:48)
[2022-12-22] MEDS: Sucralfate 1 GM Tablet PO (20:52)
[2022-12-23] VITALS (7 sets, daily range): BP systolic 117–162; BP diastolic 68–95; PULSE 80–92; RESP 16–18; TEMP 36.4–36.8; O2SAT 94–99
[2022-12-23] MEDS: proCHLORPERazine 5 MG Tablet PO ×3 (06:07→16:25)
[2022-12-23] MEDS: Sucralfate 1 GM Tablet PO ×4 (06:07→23:41)
[2022-12-23 06:15] LABS: Absolute Lymphocyte Count 1.36 X10^3/uL (0.83-4.51); Absolute Neutrophil Count 7.1 X10^3/uL (2.0-7.7); Basophil# 0.03 X10^3/uL; Basophil% 0.3 % (0-1); Eosinophil# 0.22 X10^3/uL; Eosinophils% 2.2 % (0-5); Hemoglobin 9.1 g/dL (12.0-15.0); Lymphocyte # 1.36 X10^3/ul (0.83-4.51); Lymphocyte % 13.9 % (19-41); Mean Corp Hgb Conc 28.4 g/dL (32-36); Mean Corpuscular Hgb 28.1 pg (27.0-32.0); Mean Corpuscular Volume 98.8 fL (81-99); Mean Platelet Vol. 10.2 fl (6.2-12.0); Monocyte# 0.72 X10^3/uL; Monocyte% 7.3 % (0-10); NRBC Flagged by Analyzer 0 % (0-5); Neutrophil # 7.13 X10^3/uL (2.7-7.7); Neutrophil % 72.8 % (47-70); Platelet Count 400 K/mm3 (150-450); RBC Distribution Width SD 56.4 fl (35.1-43.9); RET-HE 32.7 pg (30-35); Red Blood Count 3.24 M/mm3 (4.2-5.4); Reticulocyte Count 2.99 % (0.5-1.5); White Blood Count 9.8 K/mm3 (4.4-11.0)
[2022-12-23 06:53] LABS: Anion Gap 6 (5-15); BUN 48 mg/dL (7-18); BUN/Creat Ratio 27.9 RATIO (10-20); Calcium,Total 10.3 mg/dL (8.5-10.1); Chloride 120 mmol/L (98-107); Creatinine, Serum 1.72 mg/dL (0.55-1.02); EST Glomerular Filtration Rate 31 mL/min (>60); Est Glom Filt Rate - Afr Amer 37 mL/min (>60); Estimated Creatinine Clearance 24.46 ml/min; Ferritin 53 ng/mL (8-252); Glucose 101 mg/dL (74-106); Iron 28 ug/dL (50-170); Iron Binding Capacity,Total 281 ug/dL (250-450); Potassium 4.1 mmol/L (3.5-5.1); Sodium Level 150 mmol/L (136-145)
[2022-12-23] MEDS: 0.9% Saline Lock 10 ML Syringe IV (09:48)
[2022-12-23] MEDS: LORazepam 1 MG Tablet 2 MG PO ×2 (09:52→16:25)
[2022-12-23] MEDS: Memantine Hydrochloride 10 MG Tablet PO (09:52)
[2022-12-23] MEDS: guaiFENesin 1,200 MG Tablet 1200 MG PO ×2 (09:53→23:41)
[2022-12-23] MEDS: Cinacalcet HCl 30 MG Tablet PO (09:53)
[2022-12-23] MEDS: Pantoprazole Sodium 40 MG Tablet PO ×2 (09:53→23:41)
[2022-12-23] MEDS: lamoTRIgine 150 MG Tablet PO (09:54)
[2022-12-23] MEDS: Senna/Docusate Sodium 1 Tablet 2 TABLET PO ×2 (10:09→23:42)
--- NOTE | 2022-12-23 10:21 | PCM.PN.REN ---
Subjective Subjective Resting quietly in bed. at bedside. Patient more talkative and alert this morning. Denies any complaints. Denies any nausea. reports patient is drinking water Objective Data Objective Data Vital Signs: Vital Signs Temp Pulse Resp BP Pulse Ox O2 Del Method 97.5 F L 87 18 142/85 H 94 Room Air 12/23/22 02:40 12/23/22 02:40 12/23/22 02:40 12/23/22 02:40 12/23/22 02:40 12/23/22 02:40 Oxygen Delivery Method Room Air Weight: 53.2 kg Body Mass Index (BMI) 19.5 Intake & Output: Intake and Output for Last 24 Hours 12/21/22 12/22/22 12/23/22 23:59 23:59 23:59 Intake Total 2647.92 / 2887.92 1790 / 1910 1520 / 1520 Output Total 1000 / 1800 2250 / 3150 0 / 2049 Balance 1647.92 / 1087.92 -460 / -1240 -530 / -530 Medical Nutrition Assessment Dietitian: Malnutrition Criteria Met Start: 12/15/22 12:23 Freq: Status: Active Protocol: Document 12/22/22 12:29 RMA (Rec: 12/22/22 12:29 RMA [id number]) Nutrition Malnutrition Evidence of Malnutrition Exists Yes Malnutrition (severe): Chronic Evidenced By Suboptimal Energy Intake ( Severe),Weight Loss (Severe) Clinical Problem Chronic Disease or Condition Related Malnutrition Etiology severe, chronic malnutrition related to inadequate oral intake d/t esophageal stenosis Signs/Symptoms as evidenced by estimated PO intake meeting <75% of estimated energy needs > 3 months; unintentional wt loss of 30.7#/21% wt loss x 4 months 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 Continue 240mL ensure plus high protein TID w/ meals. Will add vanilla magic cup w/ lunch meal as tolerated. Lab / Micro Data Result Diagrams: 12/23/22 05:30 12/23/22 05:30 Labs: Laboratory Results - last 24 hr 12/23/22 05:30: Sodium 150 H, Potassium 4.1, Chloride 120 H, Carbon Dioxide 24.0, Anion Gap 6, BUN 48 H, Creatinine 1.72 H, Estim Creat Clear Calc 24.46, Est GFR (MDRD) Af Amer 37 L, Est GFR (MDRD) Non-Af 31 L, BUN/Creatinine Ratio 27.9 H, Glucose 101, Calcium 10.3 H, Iron 28 L, TIBC 281, Iron Saturation 10.0 L, Ferritin 53 12/23/22 05:30: WBC 9.8, RBC 3.24 L, Hgb 9.1 L, Hct 32.0 L, MCV 98.8, MCH 28.1, MCHC 28.4 L, RDW Std Deviation 56.4 H, RDW Coeff of Lee 16.0 H, Plt Count 400, MPV 10.2, Immature Gran % (Auto) 3.500 H, Neut % (Auto) 72.8 H, Lymph % (Auto) 13.9 L, [place] % (Auto) 7.3, Eos % (Auto) 2.2, Baso % (Auto) 0.3, Absolute Neuts (auto) 7.1, Absolute Lymphs (auto) 1.36, Nucleated RBC % 0, Retic Count 2.99 H, Immature Retic Fraction 31.70 H, Retic Hgb Equivalent 32.7 Micro: Microbiology 12/15/22 08:15 Blood Culture (Wb) - Right Hand Blood Culture - Final GNR non agricultural equipment sales manager 12/15/22 11:10 Urine, Catheterized Urine Culture - Final Klebsiella oxytoca 12/15/22 08:13 Blood Culture (Wb) - Anticubital Left Blood Culture - Final Klebsiella oxytoca Radiography Diagnostic Testing: Radiology Impression Barium Swallow X-Ray 12/22/22 05:55 IMPRESSION: Apple core lesion of the mid and distal portion of the esophagus with dilatation of the proximal esophagus. Endoscopic correlation is recommended. Electronically Signed: Cheng Schmitt MD at 13:37 EST , Physical Exam Narrative Alert to name, confused to recent events S1, S2, RRR Lung sounds clear anteriorly and posteriorly. No wheezes, rhonchi or rales noted Abdomen soft, nontender, positive bowel sounds No edema Assessment & Plan Assessment/Plan (1) CITLALY (acute kidney injury): (2) CKD (chronic kidney disease), stage III: (3) Hypernatremia: (4) Hypercalcemia: PLAN: Plan -CITLALY on CKD stage III; CITLALY possibly from volume depletion with concurrent losartan use. With IV fluids renal function improved. Losartan on hold. No acute indication for TOW BAR DRIVER. Serum creatinine 3.37 mg/dL on admission and has improved to 1.72 mg/dL. -GI following for dysphagia and history of esophageal stricture. She has a history of recurrent esophageal stricture and has undergone dilatation. Also has a history of severe erosive esophagitis (patient had EGD done on 11/06/2022 which showed grade C erosive esophagitis treated with argon plasma coagulation, esophageal stenosis that was dilated and moderately severe erosive esophagitis that was biopsied; repeat EGD on 12/15/2022 demonstrated grade D erosive esophagitis, esophageal stenosis that was dilated and biopsies taken which are pending). Patient had EGD 12/22: Benign-appearing esophageal stenosis status post dilated, hiatal hernia. 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 History of acute on chronic hypernatremia: sodium 166 on admission, peaked at 168 and today is 150. Patient is asymptomatic at this time with sodium of 150. Patient has been on amiloride and desmopressin in the past with no improvement in sodium trends therefore both were stopped, she was also on a thiazide diuretic but stopped due to hypercalcemia. In past with increasing free water intake and D5W sodium levels improved. We stopped normal saline and start D5W. Now thaqt patient is able to take oral intake encouraged patient to push free water and patient will need reinforcement of water intake. Discussed with patient's Jeffrey at bedside today. He encourages water intake 500 mL 5-6 times daily -History of secondary hyperparathyroidism and hypercalcemia. Followed by endocrine. On Sensipar. Per patient's patient tolerates Sensipar with no nausea. Calcium 10.3 today -History of CKD stage III, baseline creatinine ranging 1.4 to 1.7 mg/dL. Patient will have nephrology follow-up in [place] office.
--- NOTE | 2022-12-23 14:55 | PCM.PN.HOSP ---
Reason for Visit Reason for Visit: Diagnoses Elevated white blood cell count, unspecified (12/15/22) Unspecified severe protein-calorie malnutrition (12/15/22) Hypercalcemia (12/15/22) Dehydration (12/15/22) Hyperosmolality and hypernatremia (12/15/22) Hyperkalemia (12/15/22) Other disorders of electrolyte and fluid balance, not elsewhere classified (12/15/22) Ulcer of esophagus without bleeding (12/15/22) Acute kidney failure, unspecified (12/15/22) Urinary tract infection, site not specified (12/15/22) Dysphagia, unspecified (12/15/22) Other malaise (12/15/22) Bacteremia (12/15/22) Other specified abnormal findings of blood chemistry (12/15/22) Subjective Subjective Follow-up for hyponatremia, dysphagia and gastroparesis. Patient had EGD yesterday and esophageal dilatation. Did not had dispo. Nystatin. Patient can swallow in the morning. Did not had significant saliva reflux or esophageal reflux in the morning. Objective Data Objective Data Vital Signs: Vital Signs Temp Pulse Resp BP Pulse Ox O2 Del Method 98.1 F 89 16 162/95 H 99 Room Air 12/23/22 09:47 12/23/22 09:47 12/23/22 09:47 12/23/22 09:47 12/23/22 10:56 12/23/22 09:47 Oxygen Delivery Method Room Air Weight: 117 lb 4.575 oz Body Mass Index (BMI) 19.5 Intake & Output: Intake and Output for Last 24 Hours 12/21/22 12/22/22 12/23/22 23:59 23:59 23:59 Intake Total 2647.92 / 2887.92 1790 / 1910 1880 / 1880 Output Total 1000 / 1800 2250 / 3150 2049 Balance 1647.92 / 1087.92 -460 / -1240 -170 / -170 Medical Nutrition Assessment Dietitian: Malnutrition Criteria Met Start: 12/15/22 12:23 Freq: Status: Active Protocol: Document 12/22/22 12:29 RMA (Rec: 12/22/22 12:29 RMA [id number]) Nutrition Malnutrition Evidence of Malnutrition Exists Yes Malnutrition (severe): Chronic Evidenced By Suboptimal Energy Intake ( Severe),Weight Loss (Severe) Clinical Problem Chronic Disease or Condition Related Malnutrition Etiology severe, chronic malnutrition related to inadequate oral intake d/t esophageal stenosis Signs/Symptoms as evidenced by estimated PO intake meeting <75% of estimated energy needs > 3 months; unintentional wt loss of 30.7#/21% wt loss x 4 months 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 Continue 240mL ensure plus high protein TID w/ meals. Will add vanilla magic cup w/ lunch meal as tolerated. Lab / Micro Data Result Diagrams: 12/23/22 05:30 12/23/22 05:30 Labs: Laboratory Results - last 24 hr 12/23/22 05:30: Sodium 150 H, Potassium 4.1, Chloride 120 H, Carbon Dioxide 24.0, Anion Gap 6, BUN 48 H, Creatinine 1.72 H, Estim Creat Clear Calc 24.46, Est GFR (MDRD) Af Amer 37 L, Est GFR (MDRD) Non-Af 31 L, BUN/Creatinine Ratio 27.9 H, Glucose 101, Calcium 10.3 H, Iron 28 L, TIBC 281, Iron Saturation 10.0 L, Ferritin 53 12/23/22 05:30: WBC 9.8, RBC 3.24 L, Hgb 9.1 L, Hct 32.0 L, MCV 98.8, MCH 28.1, MCHC 28.4 L, RDW Std Deviation 56.4 H, RDW Coeff of Lee 16.0 H, Plt Count 400, MPV 10.2, Immature Gran % (Auto) 3.500 H, Neut % (Auto) 72.8 H, Lymph % (Auto) 13.9 L, [place] % (Auto) 7.3, Eos % (Auto) 2.2, Baso % (Auto) 0.3, Absolute Neuts (auto) 7.1, Absolute Lymphs (auto) 1.36, Nucleated RBC % 0, Retic Count 2.99 H, Immature Retic Fraction 31.70 H, Retic Hgb Equivalent 32.7 Micro: Microbiology 12/15/22 08:15 Blood Culture (Wb) - Right Hand Blood Culture - Final GNR non computer forwarding system markup clerk 12/15/22 11:10 Urine, Catheterized Urine Culture - Final Klebsiella oxytoca 12/15/22 08:13 Blood Culture (Wb) - Anticubital Left Blood Culture - Final Klebsiella oxytoca Physical Exam Narrative Seen and examined. Cough is better. History of aspiration pneumonia 2 times in the past. Patient had oral intake in the morning. Esophageal reflux has improved.-Small bowel movement yesterday. Physical exam General: Alert, Oriented x3, Cooperative, fatigue, frail, BMI 19.5 kg/m?, well hydrated. HEENT: Atraumatic, PERRLA, EOMI, Normocephalic Oral: Oral mucosa moist, no Gingival or Mucosal Lesions/ Ulcerations Neck: Supple, No JVD, Negative Carotid Bruits Lungs: Air entry diminished in bilateral lung bases. No crepitation/rhonchi Cardiovascular: Regular rate, Regular Rhythm, Normal S1, Normal S2, systolic murmur right second ICS Abdomen: Bowel Sounds present, Soft, Non Tender, mild upper abdominal distention. : No renal angle tenderness. No suprapubic tenderness. Extremities: No edema, Capillary Refill Less than 3 Seconds Skin: No rashes, No breakdown Musculoskeletal: No Tenderness to Palpation of Joints or Extremities,/10/5 at major joints in LEs Neurological: Cranial nerves II-XII grossly intact, DTR 2+/4 and Symmetrical Psych/Mental Status: Flat affect. Assessment & Plan Assessment/Plan (1) CITLALY (acute kidney injury): (2) Hypernatremia: (3) Hyperchloremia: (4) Leukocytosis: (5) Hyperkalemia: (6) Hypercalcemia: (7) Abnormal TSH: (8) Severe dehydration: (9) Severe malnutrition: (10) Dysphagia: (11) Gram-negative bacteremia: (12) UTI (urinary tract infection): (13) Debility: (14) Erosive esophagitis: PLAN: Plan 72-year-old female who was admitted for generalized weakness and fall with history of esophagitis and esophageal stricture and dilatation she had hyponatremia. 1. Klebsiella bacteremia/UTI: Patient is not a good historian and does not remember well about lower urinary tact symptoms, increased frequency urgency or burning micturition. Blood and urine culture positive of gram-negative kmaila, lactose computer forwarding system markup clerk, Klebsiella oxytoca. On IV ceftriaxone. -Retroperitoneal ultrasound shows no hydronephrosis and only medical renal disease -We will need at least 7 days of antibiotics--> day 6 of 7. 2/12: Klebsiella oxytoca identified. Last day of IV antibiotic tomorrow a.m. 12/22: Patient completed antibiotic today. 2. CITLALY on CKD stage IIIb secondary to severe dehydration -Baseline serum creatinine between 1.5 and 1.9 -Serum creatinine on presentation was 3.37. Serum creatinine improving. Last one 1.79. -Continue to hold home losartan 12/22: Creatinine 1.73 12/23: Creatinine 1.72 similar. Laboratory Results 12/23/22 05:30: Sodium 150 H, Potassium 4.1, Chloride 120 H, Carbon Dioxide 24.0, Anion Gap 6, BUN 48 H, Creatinine 1.72 H, Estim Creat Clear Calc 24.46, Est GFR (MDRD) Af Amer 37 L, Est GFR (MDRD) Non-Af 31 L, BUN/Creatinine Ratio 27.9 H, Glucose 101, Calcium 10.3 H, Iron 28 L, TIBC 281, Iron Saturation 10.0 L, Ferritin 53 12/23/22 05:30: WBC 9.8, RBC 3.24 L, Hgb 9.1 L, Hct 32.0 L, MCV 98.8, MCH 28.1, MCHC 28.4 L, RDW Std Deviation 56.4 H, RDW Coeff of Lee 16.0 H, Plt Count 400, MPV 10.2, Immature Gran % (Auto) 3.500 H, Neut % (Auto) 72.8 H, Lymph % (Auto) 13.9 L, [place] % (Auto) 7.3, Eos % (Auto) 2.2, Baso % (Auto) 0.3, Absolute Neuts (auto) 7.1, Absolute Lymphs (auto) 1.36, Nucleated RBC % 0, Retic Count 2.99 H, Immature Retic Fraction 31.70 H, Retic Hgb Equivalent 32.7 3. Severe hypernatremia/hyperchloremia secondary to severe dehydration Serum sodium 149, chloride 121, BUN 62. Normal anion gap. Continue IV fluid D5W. Patient baseline sodium is 140- 142 12/21 serum sodium is still 149. Warehouse Handler consulted. Patient sodium did not go up and looks dehydrated therefore started on half-normal saline 100 mL/h for 2 L Hyperthyroidism: TSH 0.18. Free T4 normal. On methimazole. TSH low from euthyroid sick syndrome. 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 In the past he had amiloride and desmopressin, reason of discontinuation of unclear. Patient is started on Cinacalcet. Hospital pharmacy does not have amiloride as formulary. Patient on D5W. 12/23: Sodium 150. Discussed with the small engine mechanic. IV fluid D5W rate is increased. Dysphagia/esophagitis/esophageal stenosis/nondiabetic gastroparesis -EGD done on 11/06/2022 showed grade C erosive esophagitis that was treated with argon plasma coagulation as well as a benign-appearing esophageal stenosis that was dilated and a moderately severe erosive esophagitis that was biopsied -Repeat EGD done by gastroenterology on 12/15/2022 demonstrated grade D erosive esophagitis that was treated with argon plasma coagulation, benign-appearing esophageal stenosis that was dilated, medium size hiatal hernia and a normal second portion of the duodenum.Biopsies were taken and pathology is pending. Repeat EGD recommended to be performed in 4 weeks Discussed with the it security engineer and he recommended J-tube but patient's does not want PEG or J-tube. Possible outpatient esophageal stent 12/21: Discussed with GI. Esophagram tomorrow AM. Patient wanted esophageal stent at this time, esophageal edition last 7 days and he started esophageal efflux and regurgitation back, flaccid vomiting. No adequate oral intake. Patient cannot on metoclopramide for gastroparesis as this has worsened her tremor/involuntary movement with possible diagnosis of tardive dyskinesia.. Started on low-dose Compazine. 12/22: Plan for esophageal stenting. Barium esophagus shows mid to lower esophagus apple core lesion with proximal dilatation. 12/23: Patient had esophageal dilatation yesterday. No stenting was put. Patient able to swallow and amount of saliva and esophageal reflux is much decreased. -Continue home Protonix--> transition to oral -Continue home Reglan -GI is following-appreciate input -PO intake has been good -Speech therapy to reevaluate for mucus production--> start Mucinex to see if sending her secretions help some Severe malnutrition, BMI 19.5 kg/m? but patient has moderate muscle atrophy of extremity and loss of subcutaneous fat -Continue supplements -Dietitian is following -Regular diet initiated by gastroenterology after stenosis was dilated Debility - is insistent on taking her home -She currently was only able to take 3 steps with therapy yesterday-reevaluate again today -Current plan per discussion with is home with home health care once medically stable for discharge Osteoporosis -Continue Prolia as an outpatient -Continue cholecalciferol History of hyperthyroidism -Continue methimazole Chronic anemia -Macrocytic 12/22: Hemoglobin gradually decreasing from 9.7-8.2. Heparin subcutaneous discontinued. Stool for occult blood and iron work-up ordered 12/23: Iron saturation 10%, serum iron low TIBC normal. Ferritin 53. Immature reticulocyte fraction 31% with reticulocyte count 2.9 and therefore patient has reactive bone marrow. Mixed anemia of chronic disease and chronic iron deficiency anemia. 1 dose of IV iron ordered. Leukocytosis -Resolved -Likely related to bacteremia and UTI Primary hyperparathyroidism -Continue cinaclcet Urinary incontinence -Hold home oxybutynin -Tinoco discontinued on 12/18/2022 Constipation -Continue home MiraLAX. On senna S twice daily. Chronic pain -Ultram on hold with renal function -Restart if needed at discharge Bipolar disorder -Continue home lorazepam -Continue home Lamictal -Mood currently seems stable -Does have baseline tremor from medication -Patient with history of renal toxicity from lithium Cognitive impairment -Per patient does have some memory issues -Continue home memantine DVT prophylaxis -Heparin twice daily CODE STATUS -Full code as verified on admission Total time of the visit including total time spent in counseling or coordination of care, (more than 50% of the total time, spent in obtaining medical information from nurses and other ancillary care providers,explaining to the patient about labs, imaging, diagnosis and management of active complex medical conditions), discussion with nephrology, review of labs and imaging, clinical update to patient's at the bedside is 50 minutes. Charges/Coding Visit Charges Inpatient E&M: 38327 Subs Hosp L3
--- NOTE | 2022-12-23 19:31 | PN_ITS ---
Subjective Subjective She underwent an upper endoscopy with repeat dilation yesterday. Had a long talk with the daughter in the of the patient explaining the fact of her psychotropic and benzodiazepines on her esophageal and gastric motility. Objective Data Objective Data Vital Signs: Vital Signs Temp Pulse Resp BP Pulse Ox O2 Del Method 98.0 F 92 16 137/84 H 98 Room Air 12/23/22 14:54 12/23/22 14:54 12/23/22 14:54 12/23/22 14:54 12/23/22 14:54 12/23/22 14:54 Oxygen Delivery Method Room Air Weight: 117 lb 4.575 oz Body Mass Index (BMI) 19.5 Intake & Output: Intake and Output for Last 24 Hours 12/21/22 12/22/22 12/23/22 23:59 23:59 23:59 Intake Total 2647.92 / 2887.92 1790 / 1910 3688.75 / 3688.75 Output Total 1000 / 1800 2250 / 3150 2350 / 2350 Balance 1647.92 / 1087.92 -460 / -1240 1338.75 / 1338.75 Medical Nutrition Assessment Dietitian: Malnutrition Criteria Met Start: 12/15/22 12:23 Freq: Status: Active Protocol: Document 12/22/22 12:29 RMA (Rec: 12/22/22 12:29 RMA [id number]) Nutrition Malnutrition Evidence of Malnutrition Exists Yes Malnutrition (severe): Chronic Evidenced By Suboptimal Energy Intake ( Severe),Weight Loss (Severe) Clinical Problem Chronic Disease or Condition Related Malnutrition Etiology severe, chronic malnutrition related to inadequate oral intake d/t esophageal stenosis Signs/Symptoms as evidenced by estimated PO intake meeting <75% of estimated energy needs > 3 months; unintentional wt loss of 30.7#/21% wt loss x 4 months 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 Continue 240mL ensure plus high protein TID w/ meals. Will add vanilla magic cup w/ lunch meal as tolerated. Lab / Micro Data Result Diagrams: 12/23/22 05:30 12/23/22 05:30 Labs: Laboratory Results - last 24 hr 12/23/22 05:30: Sodium 150 H, Potassium 4.1, Chloride 120 H, Carbon Dioxide 24.0, Anion Gap 6, BUN 48 H, Creatinine 1.72 H, Estim Creat Clear Calc 24.46, Est GFR (MDRD) Af Amer 37 L, Est GFR (MDRD) Non-Af 31 L, BUN/Creatinine Ratio 27.9 H, Glucose 101, Calcium 10.3 H, Iron 28 L, TIBC 281, Iron Saturation 10.0 L , Ferritin 53 12/23/22 05:30: WBC 9.8, RBC 3.24 L, Hgb 9.1 L, Hct 32.0 L, MCV 98.8, MCH 28.1, MCHC 28.4 L, RDW Std Deviation 56.4 H, RDW Coeff of Lee 16.0 H, Plt Count 400, MPV 10.2, Immature Gran % (Auto) 3.500 H, Neut % (Auto) 72.8 H, Lymph % (Auto) 13.9 L, [place] % (Auto) 7.3, Eos % (Auto) 2.2, Baso % (Auto) 0.3, Absolute Neuts (auto) 7.1, Absolute Lymphs (auto) 1.36, Nucleated RBC % 0, Retic Count 2.99 H, Immature Retic Fraction 31.70 H, Retic Hgb Equivalent 32.7 Micro: Microbiology 12/15/22 08:15 Blood Culture (Wb) - Right Hand Blood Culture - Final GNR non microarray operations vice president 12/15/22 11:10 Urine, Catheterized Urine Culture - Final Klebsiella oxytoca 12/15/22 08:13 Blood Culture (Wb) - Anticubital Left Blood Culture - Final Klebsiella oxytoca Physical Exam Narrative Esophageal reflux has improved.-Small bowel movement yesterday. Physical exam General: Alert, Oriented x3, Cooperative, fatigue, frail, BMI 19.5 kg/m?, well hydrated. HEENT: Atraumatic, PERRLA, EOMI, Normocephalic Oral: Oral mucosa moist, no Gingival or Mucosal Lesions/ Ulcerations Neck: Supple, No JVD, Negative Carotid Bruits Lungs: Air entry diminished in bilateral lung bases. No crepitation/rhonchi Cardiovascular: Regular rate, Regular Rhythm, Normal S1, Normal S2, systolic murmur right second ICS Abdomen: Bowel Sounds present, Soft, Non Tender, mild upper abdominal distention. : No renal angle tenderness. No suprapubic tenderness. Extremities: No edema, Capillary Refill Less than 3 Seconds Skin: No rashes, No breakdown Musculoskeletal: No Tenderness to Palpation of Joints or Extremities,/10/5 at major joints in LEs Neurological: Cranial nerves II-XII grossly intact, DTR 2+/4 and Symmetrical Psych/Mental Status: Flat affect. Assessment & Plan Assessment/Plan (1) CITLALY (acute kidney injury): (2) Hypernatremia: (3) Hyperchloremia: (4) Leukocytosis: (5) Hyperkalemia: (6) Hypercalcemia: (7) Abnormal TSH: (8) Severe dehydration: (9) Severe malnutrition: PLAN: -Continue supplements -Dietitian is following (10) Dysphagia: PLAN: Esophageal dysphagia secondary to recurrent esophageal stricture in the lower one third of the distal esophagus. She underwent dilation with 18 mm balloon and treatment with APC to hopefully keep it open. I would recommend a Carafate slurry in order to keep the esophagus open is much as possible. . I also recommended that she see ENT and neurology as she has a significant esophageal dysmotility disorder and the fact that her esophagus does not contract in I would like neurology's and psychiatry's input and regarding possible medication side effects causing severe gastroparesis and esophageal dysmotility. He has made an appointment with ENT for evaluation of her thick mucus that she keeps producing that I believe is contributing to her severe esophagitis and esophageal dysphagia. (11) Gram-negative bacteremia: (12) UTI (urinary tract infection): (13) Debility: (14) Erosive esophagitis: PLAN: . Severe erosive esophagitis refractory to medical therapy secondary to concurrent gastroparesis and hiatal hernia. Would recommend esophageal stent. Patient's says they are totally against a feeding tube. Continue aggressive PPI therapy. Continue antiemetics as previously ordered. Charges/Coding Visit Charges Inpatient E&M: 77371 Subs Hosp L3
[2022-12-24 03:13] VITALS: BP 115/80; PULSE 86; RESP 16; TEMP 37.1; O2SAT 94
[2022-12-24 05:35] LABS: Absolute Lymphocyte Count 1.85 X10^3/uL (0.83-4.51); Absolute Neutrophil Count 5.6 X10^3/uL (2.0-7.7); Basophil# 0.02 X10^3/uL; Basophil% 0.2 % (0-1); Eosinophil# 0.23 X10^3/uL; Eosinophils% 2.8 % (0-5); Hematocrit 27.9 % (37-47); Hemoglobin 8.4 g/dL (12.0-15.0); Lymphocyte # 1.85 X10^3/ul (0.83-4.51); Lymphocyte % 22.2 % (19-41); Mean Corp Hgb Conc 30.1 g/dL (32-36); Mean Corpuscular Hgb 28.8 pg (27.0-32.0); Mean Corpuscular Volume 95.5 fL (81-99); Mean Platelet Vol. 9.7 fl (6.2-12.0); Monocyte# 0.54 X10^3/uL; Monocyte% 6.5 % (0-10); NRBC Flagged by Analyzer 0 % (0-5); Neutrophil # 5.56 X10^3/uL (2.7-7.7); Neutrophil % 66.7 % (47-70); Platelet Count 370 K/mm3 (150-450); RBC Distribution Width CV 15.9 % (11.6-14.6); RBC Distribution Width SD 54.8 fl (35.1-43.9); Red Blood Count 2.92 M/mm3 (4.2-5.4); White Blood Count 8.3 K/mm3 (4.4-11.0)
[2022-12-24 06:05] LABS: Anion Gap 6 (5-15); BUN 38 mg/dL (7-18); BUN/Creat Ratio 24.8 RATIO (10-20); Calcium,Total 9.3 mg/dL (8.5-10.1); Chloride 111 mmol/L (98-107); Creatinine, Serum 1.53 mg/dL (0.55-1.02); EST Glomerular Filtration Rate 35 mL/min (>60); Est Glom Filt Rate - Afr Amer 43 mL/min (>60); Glucose 96 mg/dL (74-106); Sodium Level 141 mmol/L (136-145)
[2022-12-24] MEDS: Sucralfate 1 GM Tablet PO ×2 (06:57→11:14)
[2022-12-24] MEDS: proCHLORPERazine 5 MG Tablet PO ×2 (06:57→11:16)
[2022-12-24 09:13] VITALS: BP 154/88; PULSE 89; RESP 16; TEMP 36.4; O2SAT 95
[2022-12-24] MEDS: guaiFENesin 1,200 MG Tablet 1200 MG PO (09:17)
[2022-12-24] MEDS: Memantine Hydrochloride 10 MG Tablet PO (09:17)
[2022-12-24] MEDS: lamoTRIgine 150 MG Tablet PO (09:17)
[2022-12-24] MEDS: Methimazole 5 MG Tablet PO (09:18)
[2022-12-24] MEDS: Cinacalcet HCl 30 MG Tablet PO (09:18)
[2022-12-24] MEDS: Pantoprazole Sodium 40 MG Tablet PO (09:18)
--- NOTE | 2022-12-24 10:02 | PCM.DC ---
Discharge Instructions Diet Discharge Diet: Soft diet (Full liquid to soft/mashed food diet.) Activity Discharge Activity: Return to Normal Activity Weight Bearing Status: Weight bearing as tolerated Dressing / Incision Call your doctor if you observe: Fever of 101 or Higher, Coldness, Increased Pain, Numbness or Tingling, Change in Color, Inability to urinate, Inability to have a bowel movement, Using more than 1 pad per hour, Shortness of breath, Dizziness, Fainting spells, Swelling in the ankles, Chest pain, Prolonged hiccupping, Increased palpitations (irregular heartbeat) and Calf discomfort Follow Up Care When: IN 2 WEEKS Test Results: Test results from this visit will be discussed in further detail at your follow-up appointment, if applicable. Discharge Plan Admission Admit Date/Time: 12/15/22 08:27 Primary Reason for Your Visit: Esophageal dysphagia, gastroparesis, DI with hyponatremia Attending Provider: Renny Ornelas Primary Care Provider: Jay Kincaid TECHNOLOGY SALES SPECIALIST Consulting Providers: Portia Shelby ; Ayse Abrams Discharge Orders/Prescriptions Prescriptions: New sucralfate 1 gram Tablet 1 g PO 1HR_ACHS 30 Days Qty: 120 0RF sennosides-docusate sodium [Stool Softener-Stimulant Laxat] 8.6-50 mg Tablet 2 tab PO BID Qty: 0 0RF Mucus Relief ER 1,200 mg Tablet Extended Release 12hr 1,200 mg PO BID 7 Days Qty: 14 0RF Rx Instructions: Mix it in applesauce or jelly Continued methimazole 5 MG tablet 5 mg PO SUMOWEFR cinacalcet 30 MG tablet 30 mg PO SUMOWEFR memantine 10 MG tablet 10 mg PO DAILY cholecalciferol (vitamin D3) 2,000 UNIT capsule 2,000 unit PO DAILY oxybutynin chloride 15 mg tablet extended release 24hr 15 mg PO DAILY Label Comments: take 1 tablet by mouth every morning losartan 25 mg tablet 25 mg PO DAILY Label Comments: take 1 tablet by mouth once daily polyethylene glycol 3350 [Miralax] 17 gram/dose Powder 17 g PO DAILY Prolia 60 mg/mL Syringe 60 mg SUBCUT .Q6MO ascorbic acid (vitamin C) [Vitamin C] 1,000 mg Tablet 1 g PO DAILY lamotrigine 100 mg tablet 150 mg PO DAILY Label Comments: take 1 tablet by mouth once daily for 2 WEEKS then INCREASE to 1 ... (REFER TO PRESCRIPTION NOTES). metoclopramide HCl 5 mg tablet 5 mg PO BID Rx Instructions: administer 30 minutes before meals pantoprazole [Protonix] 40 mg tablet,delayed release (DR/EC) 40 mg PO BID 30 Days Qty: 60 2RF Rx Instructions: 40 mg twice daily for 2 months then once daily Changed lorazepam 2 mg tablet 2 mg PO 4XD PRN (Reason: AGITATION) Qty: 1 0RF Label Comments: take 1 tablet by mouth four times a day if needed for anxiety ferrous sulfate 325 MG tablet 325 mg PO QODAY Qty: 30 0RF Held tramadol 50 mg tablet 50 mg PO BID Hold Instructions: Hold for 1 week and talk to PCP before resumption severe CKD stage IV, creatinine clearance less than 30 mill per minute Referrals / Follow Up: Jay Kincaid TECHNOLOGY SALES SPECIALIST, TECHNOLOGY SALES SPECIALIST-C [Primary Care Provider] - Within 1 Week Ayse Abrams MD [Med Staff - Consulting] - Within 2 Weeks Francis Verma DO [Med Staff - Active Staff] - Within 2 Weeks Disposition Disposition (needs filled in before D/C Order can be placed): Home Health Service
--- NOTE | 2022-12-24 10:24 | DS.PCM_ITS ---
Providers Date of Admission: 12/15/22 Date of Discharge: 12/24/22 Primary Care Physician: Jay Kincaid, CURRICULUM AND ASSESSMENT COORDINATOR-C Consultations 12/15/22 10:35 Consult: Gastroenterology Routine Consulting Provider: [facility] Reason for Consult: Esophageal abnormalities EMERGENT Consult: No Notified: Yes Date Notified: 12/15/22 Time Notified: 08:35 Method of Notification: Verbal 12/21/22 09:42 Consult: Nephrology Routine Consulting Provider: Ayse Abrams Reason for Consult: HYPERNATREMIA EMERGENT Consult: No Notified: Yes Date Notified: 12/21/22 Time Notified: 09:42 Method of Notification: Verbal Reason For Visit: CITLALY,SEVERE DEHYDRATION Diagnosis Discharge Diagnosis (1) CITLALY (acute kidney injury): Status: Acute Code(s): N17.9 - Acute kidney failure, unspecified (2) Hypernatremia: Status: Acute Code(s): E87.0 - Hyperosmolality and hypernatremia (3) Hyperchloremia: Status: Acute Code(s): E87.8 - Other disorders of electrolyte and fluid balance, not elsewhere classified (4) Leukocytosis: Status: Acute Code(s): D72.829 - Elevated white blood cell count, unspecified (5) Hyperkalemia: Status: Acute Code(s): E87.5 - Hyperkalemia (6) Hypercalcemia: Status: Acute Code(s): E83.52 - Hypercalcemia (7) Abnormal TSH: Status: Acute Code(s): R79.89 - Other specified abnormal findings of blood chemistry (8) Severe dehydration: Status: Acute Code(s): E86.0 - Dehydration (9) Severe malnutrition: Status: Acute Code(s): E43 - Unspecified severe protein-calorie malnutrition (10) Dysphagia: Status: Acute Code(s): R13.10 - Dysphagia, unspecified (11) Gram-negative bacteremia: Status: Acute Code(s): R78.81 - Bacteremia (12) UTI (urinary tract infection): Status: Acute Code(s): N39.0 - Urinary tract infection, site not specified (13) Debility: Status: Acute Code(s): R53.81 - Other malaise (14) Erosive esophagitis: Status: Acute Code(s): K22.10 - Ulcer of esophagus without bleeding Plan 72-year-old female who was admitted for generalized weakness and fall with history of esophagitis and esophageal stricture and dilatation she had hyponatremia. 1. Klebsiella bacteremia/UTI: Patient is not a good historian and does not remember well about lower urinary tact symptoms, increased frequency urgency or burning micturition. 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 On IV ceftriaxone. -Retroperitoneal ultrasound shows no hydronephrosis and only medical renal d isease -We will need at least 7 days of antibiotics--> day 6 of 7. 12/21: Klebsiella oxytoca identified. Last day of IV antibiotic tomorrow a.m. 12/22: Patient completed antibiotic today. 2. CITLALY on CKD stage IIIb secondary to severe dehydration -Baseline serum creatinine between 1.5 and 1.9 -Serum creatinine on presentation was 3.37. Serum creatinine improving. Last one 1.79. -Continue to hold home losartan 12/22: Creatinine 1.73 12/23: Creatinine 1.72 similar. 12/24: BUN/creatinine 38/1.53. Estimated creatinine clearance 27.8. CITLALY resolved. 3. Severe hypernatremia/hyperchloremia secondary to severe dehydration Serum sodium 149, chloride 121, BUN 62. Normal anion gap. Continue IV fluid D5W. Patient baseline sodium is 140- 142 12/21 serum sodium is still 149. Forensic Chemist consulted. Patient sodium did not go up and looks dehydrated therefore started on half-normal saline 100 mL/h for 2 L Hyperthyroidism: TSH 0.18. Free T4 normal. On methimazole. TSH low from euthyroid sick syndrome. 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 In the past he had amiloride and desmopressin, reason of discontinuation of unclear. Patient is started on Cinacalcet. Hospital pharmacy does not have amiloride as formulary. Patient on D5W. 12/23: Sodium 150. Discussed with the foundry laborer coreroom. IV fluid D5W rate is in creased. 12/24 sodium improved to 141. Discussed with foundry laborer coreroom. Water intake about 2400 mL was discussed with the caregiver in detail. In the past, Amiloride and desmopressin were not effective therefore discontinued. Dysphagia/esophagitis/esophageal stenosis/nondiabetic gastroparesis -EGD done on 11/06/2022 showed grade C erosive esophagitis that was treated with argon plasma coagulation as well as a benign-appearing esophageal stenosis that was dilated and a moderately severe erosive esophagitis that was biopsied -Repeat EGD done by gastroenterology on 12/15/2022 demonstrated grade D erosive esophagitis that was treated with argon plasma coagulation, benign-appearing esophageal stenosis that was dilated, medium size hiatal hernia and a normal second portion of the duodenum.Biopsies were taken and pathology is pending. Repeat EGD recommended to be performed in 4 weeks Discussed with the elevator constructor hydraulic and he recommended J-tube but patient's does not want PEG or J-tube. Possible outpatient esophageal stent 12/21: Discussed with GI. Esophagram tomorrow AM. Patient wanted esophageal stent at this time, esophageal edition last 7 days and he started esophageal efflux and regurgitation back, flaccid vomiting. No adequate oral intake. Patient cannot on metoclopramide for gastroparesis as this has worsened her tremor/involuntary movement with possible diagnosis of tardive dyskinesia.. Started on low-dose Compazine. 12/22: Plan for esophageal stenting. Barium esophagus shows mid to lower esophagus apple core lesion with proximal dilatation. 12/23: Patient had esophageal dilatation yesterday. No stenting was put. Patient able to swallow and amount of saliva and esophageal reflux is much decreased. 12/24: Patient can swallow good. Esophageal dilatation will not last long therefore follow-up with Dr. Verma. Patient had 2 times aspiration pneumonia in the past. Patient discharged on Protonix 40 mg twice daily and Carafate. -Continue home Protonix--> transition to oral -Continue home Reglan -GI is following-appreciate input -PO intake has been good -Speech therapy to reevaluate for mucus production--> start Mucinex to see if sending her secretions help some Severe malnutrition, BMI 19.5 kg/m? but patient has moderate muscle atrophy of extremity and loss of subcutaneous fat -Continue supplements -Dietitian is following -Regular diet initiated by gastroenterology after stenosis was dilated Debility - is insistent on taking her home -She currently was only able to take 3 steps with therapy yesterday-reevaluate again today -Current plan per discussion with is home with home health care once medically stable for discharge Osteoporosis -Continue Prolia as an outpatient -Continue cholecalciferol History of hyperthyroidism -Continue methimazole Chronic anemia -Macrocytic 12/22: Hemoglobin gradually decreasing from 9.7-8.2. Heparin subcutaneous discontinued. Stool for occult blood and iron work-up ordered 12/23: Iron saturation 10%, serum iron low TIBC normal. Ferritin 53. Immature reticulocyte fraction 31% with reticulocyte count 2.9 and therefore patient has reactive bone marrow. Mixed anemia of chronic disease and chronic iron deficiency anemia. 1 dose of IV iron ordered. Leukocytosis -Resolved -Likely related to bacteremia and UTI Primary hyperparathyroidism -Continue cinaclcet Urinary incontinence -Hold home oxybutynin -[place] discontinued on 12/18/2022 Constipation -Continue home MiraLAX. On senna S twice daily. Chronic pain -Ultram on hold with renal function -Restart if needed at discharge Bipolar disorder -Continue home lorazepam -Continue home Lamictal -Mood currently seems stable -Does have baseline tremor from medication -Patient with history of renal toxicity from lithium Cognitive impairment -Per patient does have some memory issues -Continue home memantine DVT prophylaxis -Heparin twice daily CODE STATUS -Full code as verified on admission Discharge medication reconciliation done. Discharge follow-up instructions completed. Discharge process discussed with the patient and all questions were answered to patient's satisfaction. Total time spent, exact 35 minutes on discharge meds reconciliation, examination, coordination of care with nurses and ancillary staff, review of imaging and blood test and discussion with the patient on follow-up instructions. Medications at Discharge Home Medications cinacalcet 30 mg tablet 30 mg PO SUMOWEFR THYROID 10/04/20 methimazole 5 mg tablet 5 mg PO SUMOWEFR . 10/04/20 memantine 10 mg tablet 10 mg PO DAILY . 01/03/21 cholecalciferol (vitamin D3) 50 mcg (2,000 unit) capsule 2,000 unit PO DAILY SUPPLEMENT 01/15/21 tramadol 50 mg tablet 50 mg PO BID PAIN 01/21/22 denosumab 60 mg/mL subcutaneous syringe (Prolia) 60 mg subcut .Q6MO . 09/05/22 losartan 25 mg tablet 25 mg PO DAILY . 09/05/22 oxybutynin chloride 15 mg tablet,extended release 24 hr 15 mg PO DAILY . 09/05/22 polyethylene glycol 3350 17 gram/dose oral powder (Miralax) 17 g PO DAILY LAXATIVE 09/05/22 ascorbic acid (vitamin C) 1,000 mg tablet (Vitamin C) 1 g PO DAILY SUPPLEMENT 12/15/22 lamotrigine 100 mg tablet 150 mg PO DAILY . 12/15/22 metoclopramide HCl 5 mg tablet 5 mg PO BID . 12/15/22 ferrous sulfate 325 mg (65 mg iron) tablet 325 mg PO QODAY SUPPLEMENT #30 tabs 12/24/22 guaifenesin 1,200 mg tablet, extended release 12 hr (Mucus Relief ER) 1,200 mg PO BID 7 days #14 tabs 12/24/22 lorazepam 2 mg tablet 2 mg PO 4XD PRN AGITATION #1 TAB 12/24/22 pantoprazole 40 mg tablet,delayed release (Protonix) 40 mg PO BID GERD 30 days #60 tabs 12/24/22 sennosides 8.6 mg-docusate sodium 50 mg tablet (Stool Softener-Stimulant Laxative) 2 tab PO BID #0 tabs 12/24/22 sucralfate 1 gram tablet 1 g PO 1HR_ACHS 30 days #120 tabs 12/24/22 Physical Exam Narrative Seen and examined. Cough is better but he still sometimes she coughs/choking while taking p.o. Advised pills to be grounded and mix it with applesauce. Saliva output and esophageal reflux has improved. Patient moving bowel movement Physical exam General: Alert, Oriented x3, Cooperative, fatigue, frail, BMI 19.5 kg/m?, well hydrated. HEENT: Atraumatic, PERRLA, EOMI, Normocephalic Oral: Oral mucosa moist, no Gingival or Mucosal Lesions/ Ulcerations Neck: Supple, No JVD, Negative Carotid Bruits Lungs: Air entry diminished in bilateral lung bases. No crepitation/rhonchi Cardiovascular: Regular rate, Regular Rhythm, Normal S1, Normal S2, systolic murmur right second ICS Abdomen: Bowel Sounds present, Soft, Non Tender, mild upper abdominal distention. : No renal angle tenderness. No suprapubic tenderness. Extremities: No edema, Capillary Refill Less than 3 Seconds Skin: No rashes, No breakdown Musculoskeletal: No Tenderness to Palpation of Joints or Extremities, 4+/5 at major joints in LEs Neurological: Cranial nerves II-XII grossly intact, DTR 2+/4 and Symmetrical Psych/Mental Status: Flat affect. Medical Records Data Medical Nutrition Assessment Dietitian: Malnutrition Criteria Met Start: 12/15/22 12:23 Freq: Status: Active Protocol: Document 12/22/22 12:29 RMA (Rec: 12/22/22 12:29 RMA [id number]) Nutrition Malnutrition Evidence of Malnutrition Exists Yes Malnutrition (severe): Chronic Evidenced By Suboptimal Energy Intake ( Severe),Weight Loss (Severe) Clinical Problem Chronic Disease or Condition Related Malnutrition Etiology severe, chronic malnutrition related to inadequate oral intake d/t esophageal stenosis Signs/Symptoms as evidenced by estimated PO intake meeting <75% of estimated energy needs > 3 months; unintentional wt loss of 30.7#/21% wt loss x 4 months 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 Continue 240mL ensure plus high protein TID w/ meals. Will add vanilla magic cup w/ lunch meal as tolerated. Weight / BMI Weight Weight: 117 lb 4.575 oz Body Mass Index (BMI) 19.5 ABG / Lab / Microbiology Data Result Diagrams: 12/24/22 04:46 12/24/22 04:46 Laboratory: Laboratory Results - last 24 hr 12/24/22 04:46: Sodium 141, Potassium 4.0, Chloride 111 H, Carbon Dioxide 24.0, Anion Gap 6, BUN 38 H, Creatinine 1.53 H, Estim Creat Clear Calc 27.50, Est GFR (MDRD) Af Amer 43 L, Est GFR (MDRD) Non-Af 35 L, BUN/Creatinine Ratio 24.8 H, Glucose 96, Calcium 9.3 12/24/22 04:46: WBC 8.3, RBC 2.92 L, Hgb 8.4 L, Hct 27.9 L, MCV 95.5, MCH 28.8, MCHC 30.1 L D, RDW Std Deviation 54.8 H, RDW Coeff of Lee 15.9 H, Plt Count 370, MPV 9.7, Immature Gran % (Auto) 1.600 H, Neut % (Auto) 66.7, Lymph % (Auto) 22.2, [place] % (Auto) 6.5, Eos % (Auto) 2.8, Baso % (Auto) 0.2, Absolute Neuts (auto) 5.6, Absolute Lymphs (auto) 1.85, Nucleated RBC % 0 Microbiology: Microbiology 12/15/22 08:15 Blood Culture (Wb) - Right Hand Blood Culture - Final GNR non infantry senior sergeant 12/15/22 11:10 Urine, Catheterized Urine Culture - Final Klebsiella oxytoca 12/15/22 08:13 Blood Culture (Wb) - Anticubital Left Blood Culture - Final Klebsiella oxytoca D/C Instructions Discharge Diet: Soft diet (Full liquid to soft/mashed food diet.) Weight Bearing Status: Weight bearing as tolerated Call your doctor if you observe: Fever of 101 or Higher, Coldness, Increased Pain, Numbness or Tingling, Change in Color, Inability to urinate, Inability to have a bowel movement, Using more than 1 pad per hour, Shortness of breath, Dizziness, Fainting spells, Swelling in the ankles, Chest pain, Prolonged hiccupping, Increased palpitations (irregular heartbeat) and Calf discomfort When: IN 2 WEEKS Meaningful Use Info Meaningful Use Diagnoses (Choose all that apply): None applicable Discharge Plan Admission Admit Date/Time: 12/15/22 08:27 Primary Reason for Your Visit: Esophageal dysphagia, gastroparesis, DI with hyponatremia Attending Provider: Renny Ornelas Primary Care Provider: Jay Kincaid CURRICULUM AND ASSESSMENT COORDINATOR Consulting Providers: Portia Shelby ; Ayse Abrams Discharge Orders/Prescriptions Prescriptions: New sucralfate 1 gram Tablet 1 g PO 1HR_ACHS 30 Days Qty: 120 0RF sennosides-docusate sodium [Stool Softener-Stimulant Laxat] 8.6-50 mg Tablet 2 tab PO BID Qty: 0 0RF Mucus Relief ER 1,200 mg Tablet Extended Release 12hr 1,200 mg PO BID 7 Days Qty: 14 0RF Rx Instructions: Mix it in applesauce or jelly Continued methimazole 5 MG tablet 5 mg PO SUMOWEFR cinacalcet 30 MG tablet 30 mg PO SUMOWEFR memantine 10 MG tablet 10 mg PO DAILY cholecalciferol (vitamin D3) 2,000 UNIT capsule 2,000 unit PO DAILY oxybutynin chloride 15 mg tablet extended release 24hr 15 mg PO DAILY Label Comments: take 1 tablet by mouth every morning losartan 25 mg tablet 25 mg PO DAILY Label Comments: take 1 tablet by mouth once daily polyethylene glycol 3350 [Miralax] 17 gram/dose Powder 17 g PO DAILY Prolia 60 mg/mL Syringe 60 mg SUBCUT .Q6MO ascorbic acid (vitamin C) [Vitamin C] 1,000 mg Tablet 1 g PO DAILY lamotrigine 100 mg tablet 150 mg PO DAILY Label Comments: take 1 tablet by mouth once daily for 2 WEEKS then INCREASE to 1 ... (REFER TO PRESCRIPTION NOTES). metoclopramide HCl 5 mg tablet 5 mg PO BID Rx Instructions: administer 30 minutes before meals pantoprazole [Protonix] 40 mg tablet,delayed release (DR/EC) 40 mg PO BID 30 Days Qty: 60 2RF Rx Instructions: 40 mg twice daily for 2 months then once daily Changed lorazepam 2 mg tablet 2 mg PO 4XD PRN (Reason: AGITATION) Qty: 1 0RF Label Comments: take 1 tablet by mouth four times a day if needed for anxiety ferrous sulfate 325 MG tablet 325 mg PO QODAY Qty: 30 0RF Held tramadol 50 mg tablet 50 mg PO BID Hold Instructions: Hold for 1 week and talk to PCP before resumption severe CKD stage IV, creatinine clearance less than 30 mill per minute Referrals / Follow Up: Ayse Abrams MD [Med Staff - Consulting] - Within 2 Weeks Francis Verma DO [Med Staff - Active Staff] - Within 2 Weeks Jya Kincaid NP, CURRICULUM AND ASSESSMENT COORDINATOR-C [Primary Care Provider] - Within 1 Week Disposition Disposition (needs filled in before D/C Order can be placed): Home Health Service Charges/Coding Visit Charges Inpatient E&M: 41298 Disch Hosp >30min
--- NOTE | 2022-12-24 10:46 | PHA.DC.MR ---
Pharmacy Service has performed discharge medication reconciliation for this patient. The patient's discharge medication list was reviewed for discrepancies and discrepancies were resolved. Home Medications cinacalcet 30 mg tablet 30 mg PO SUMOWEFR THYROID 10/04/20 methimazole 5 mg tablet 5 mg PO SUMOWEFR . 10/04/20 memantine 10 mg tablet 10 mg PO DAILY . 01/03/21 cholecalciferol (vitamin D3) 50 mcg (2,000 unit) capsule 2,000 unit PO DAILY SUPPLEMENT 01/15/21 tramadol 50 mg tablet 50 mg PO BID PAIN 01/21/22 denosumab 60 mg/mL subcutaneous syringe (Prolia) 60 mg subcut .Q6MO . 09/05/22 losartan 25 mg tablet 25 mg PO DAILY . 09/05/22 oxybutynin chloride 15 mg tablet,extended release 24 hr 15 mg PO DAILY . 09/05/22 polyethylene glycol 3350 17 gram/dose oral powder (Miralax) 17 g PO DAILY LAXATIVE 09/05/22 ascorbic acid (vitamin C) 1,000 mg tablet (Vitamin C) 1 g PO DAILY SUPPLEMENT 12/15/22 lamotrigine 100 mg tablet 150 mg PO DAILY . 12/15/22 metoclopramide HCl 5 mg tablet 5 mg PO BID . 12/15/22 ferrous sulfate 325 mg (65 mg iron) tablet 325 mg PO QODAY SUPPLEMENT #30 tabs 12/24/22 guaifenesin 1,200 mg tablet, extended release 12 hr (Mucus Relief ER) 1,200 mg PO BID 7 days #14 tabs 12/24/22 lorazepam 2 mg tablet 2 mg PO 4XD PRN AGITATION #1 TAB 12/24/22 pantoprazole 40 mg tablet,delayed release (Protonix) 40 mg PO BID GERD 30 days #60 tabs 12/24/22 sennosides 8.6 mg-docusate sodium 50 mg tablet (Stool Softener-Stimulant Laxative) 2 tab PO BID #0 tabs 12/24/22 sucralfate 1 gram tablet 1 g PO 1HR_ACHS 30 days #120 tabs 12/24/22
--- NOTE | 2022-12-24 11:17 | PN.RENAL_ITS ---
Subjective Subjective Patient is sitting in chair. Denies any complaints. No nausea or vomiting. States drinking water. Objective Data Objective Data Vital Signs: Vital Signs Temp Pulse Resp BP Pulse Ox O2 Del Method 97.5 F L 89 16 154/88 H 95 Room Air 12/24/22 09:13 12/24/22 09:13 12/24/22 09:13 12/24/22 09:13 12/24/22 09:13 12/24/22 09:13 Oxygen Delivery Method Room Air Weight: 53.2 kg Body Mass Index (BMI) 19.5 Intake & Output: Intake and Output for Last 24 Hours 12/22/22 12/23/22 12/24/22 23:59 23:59 23:59 Intake Total 1790 / 1910 3970.00 / 3970.00 864.58 / 864.58 Output Total 2250 / 3150 3050 / 3050 1400 / 1400 Balance -460 / -1240 920.00 / 920.00 -535.42 / -535.42 Medical Nutrition Assessment Dietitian: Malnutrition Criteria Met Start: 12/15/22 12:23 Freq: Status: Active Protocol: Document 12/22/22 12:29 RMA (Rec: 12/22/22 12:29 RMA [id number]) Nutrition Malnutrition Evidence of Malnutrition Exists Yes Malnutrition (severe): Chronic Evidenced By Suboptimal Energy Intake ( Severe),Weight Loss (Severe) Clinical Problem Chronic Disease or Condition Related Malnutrition Etiology severe, chronic malnutrition related to inadequate oral intake d/t esophageal stenosis Signs/Symptoms as evidenced by estimated PO intake meeting <75% of estimated energy needs > 3 months; unintentional wt loss of 30.7#/21% wt loss x 4 months PATIENT SUPPORT ASSISTANT Status Active Problem Recommendation Dietitian Recommendations/Changes Continue Liberalized Regular Diet with texture/consistency modifications as indicated per CONFERENCE SERVICES MANAGER. Continue 240mL ensure plus high protein TID w/ meals. Will add vanilla magic cup w/ lunch meal as tolerated. Lab / Micro Data Result Diagrams: 12/24/22 04:46 12/24/22 04:46 Labs: Laboratory Results - last 24 hr 12/24/22 04:46: Sodium 141, Potassium 4.0, Chloride 111 H, Carbon Dioxide 24.0, Anion Gap 6, BUN 38 H, Creatinine 1.53 H, Estim Creat Clear Calc 27.50, Est GFR (MDRD) Af Amer 43 L, Est GFR (MDRD) Non-Af 35 L, BUN/Creatinine Ratio 24.8 H, Glucose 96, Calcium 9.3 12/24/22 04:46: WBC 8.3, RBC 2.92 L, Hgb 8.4 L, Hct 27.9 L, MCV 95.5, MCH 28.8, MCHC 30.1 L D, RDW Std Deviation 54.8 H, RDW Coeff of Lee 15.9 H, Plt Count 370, MPV 9.7, Immature Gran % (Auto) 1.600 H, Neut % (Auto) 66.7, Lymph % (Auto) 22.2, [place] % (Auto) 6.5, Eos % (Auto) 2.8, Baso % (Auto) 0.2, Absolute Neuts (auto) 5.6, Absolute Lymphs (auto) 1.85, Nucleated RBC % 0 Micro: Microbiology 12/15/22 08:15 Blood Culture (Wb) - Right Hand Blood Culture - Final GNR non carcass washer 12/15/22 11:10 Urine, Catheterized Urine Culture - Final Klebsiella oxytoca 12/15/22 08:13 Blood Culture (Wb) - Anticubital Left Blood Culture - Final Klebsiella oxytoca Physical Exam Narrative Alert to name, confused to recent events S1, S2, RRR Lung sounds clear anteriorly and posteriorly. No wheezes, rhonchi or rales noted Abdomen soft, nontender, positive bowel sounds No edema Assessment & Plan Assessment/Plan (1) CITLALY (acute kidney injury): (2) CKD (chronic kidney disease), stage III: (3) Hypernatremia: (4) Hypercalcemia: PLAN: Plan -CITLALY on CKD stage III; CITLALY possibly from volume depletion with concurrent losartan use. With IV fluids renal function improved. Losartan on hold. No acute indication for OYSTER PLANTER. Serum creatinine 3.37 mg/dL on admission and has improved to 1.53 mg/dL. -GI following for dysphagia and history of esophageal stricture. She has a history of recurrent esophageal stricture and has undergone dilatation. Also has a history of severe erosive esophagitis (patient had EGD done on 11/06/2022 which showed grade C erosive esophagitis treated with argon plasma coagulation, esophageal stenosis that was dilated and moderately severe erosive esophagitis that was biopsied; repeat EGD on 12/15/2022 demonstrated grade D erosive esophagitis, esophageal stenosis that was dilated and biopsies taken which are pending). Patient had EGD 12/22: Benign-appearing esophageal stenosis status post dilated, hiatal hernia. 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 History of acute on chronic hypernatremia: sodium 166 on admission, peaked at 168. Sodium 150 yesterday and restarted back on D5W at 125ml/hr. Today sodium 141. Patient was asymptomatic with sodium of 150. Patient has been on amiloride and desmopressin in the past with no improvement in sodium trends therefore both were stopped, she was also on a thiazide diuretic but stopped due to hypercalcemia. In past with increasing free water intake and D5W sodium levels improved. Encouraged patient to continue water intake 500 mL 5-6 times daily -History of secondary hyperparathyroidism and hypercalcemia. Followed by endocrine. On Sensipar. Per patient's patient tolerates Sensipar with no nausea. Calcium 10.3--> 9.3 today -History of CKD stage III, baseline creatinine ranging 1.4 to 1.7 mg/dL. Patient will have nephrology follow-up in [place] office. - discharging home today with
--- NOTE | 2022-12-24 13:13 | CASEMGMT ---
RN CM in to discuss discharge needs with . Patient is setup with [facility] for HHC with start of care date for 12/25/22. denies further needs at this time. had no further questions or concerns at this time.
[2022-12-24 13:43] VITALS: BP 118/79; PULSE 94; RESP 16; TEMP 36.8; O2SAT 98
--- NOTE | 2022-12-24 17:34 | PN_ITS ---
Subjective Subjective Patient is doing alot better regarding the swallowing. Objective Data Objective Data Vital Signs: Vital Signs Temp Pulse Resp BP Pulse Ox O2 Del Method 98.2 F 94 16 118/79 98 Room Air 12/24/22 13:43 12/24/22 13:43 12/24/22 13:43 12/24/22 13:43 12/24/22 13:43 12/24/22 13:43 Oxygen Delivery Method Room Air Weight: 117 lb 4.575 oz Body Mass Index (BMI) 19.5 Intake & Output: Intake and Output for Last 24 Hours 12/22/22 12/23/22 12/24/22 23:59 23:59 23:59 Intake Total 1790 / 1910 3970.00 / 3970.00 2224.58 / 2224.58 Output Total 2250 / 3150 3050 / 3050 2200 / 2200 Balance -460 / -1240 920.00 / 920.00 24.58 / 24.58 Lab / Micro Data Result Diagrams: 12/24/22 04:46 12/24/22 04:46 Labs: Laboratory Results - last 24 hr 12/24/22 04:46: Sodium 141, Potassium 4.0, Chloride 111 H, Carbon Dioxide 24.0, Anion Gap 6, BUN 38 H, Creatinine 1.53 H, Estim Creat Clear Calc 27.50, Est GFR (MDRD) Af Amer 43 L, Est GFR (MDRD) Non-Af 35 L, BUN/Creatinine Ratio 24.8 H, Glucose 96, Calcium 9.3 12/24/22 04:46: WBC 8.3, RBC 2.92 L, Hgb 8.4 L, Hct 27.9 L, MCV 95.5, MCH 28.8, MCHC 30.1 L D, RDW Std Deviation 54.8 H, RDW Coeff of Lee 15.9 H, Plt Count 370, MPV 9.7, Immature Gran % (Auto) 1.600 H, Neut % (Auto) 66.7, Lymph % (Auto) 22.2, [place] % (Auto) 6.5, Eos % (Auto) 2.8, Baso % (Auto) 0.2, Absolute Neuts (a uto) 5.6, Absolute Lymphs (auto) 1.85, Nucleated RBC % 0 Micro: Microbiology 12/15/22 08:15 Blood Culture (Wb) - Right Hand Blood Culture - Final 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 No wheezes, rhonchi or rales noted Abdomen soft, nontender, positive bowel sounds No edema Assessment & Plan Assessment/Plan (1) CITLALY (acute kidney injury): (2) Hypernatremia: (3) Hyperchloremia: (4) Leukocytosis: (5) Hyperkalemia: (6) Hypercalcemia: (7) Abnormal TSH: (8) Severe dehydration: (9) Severe malnutrition: PLAN: -Continue supplements -Dietitian is following (10) Dysphagia: PLAN: Esophageal dysphagia secondary to recurrent esophageal stricture in the lower one third of the distal esophagus. She underwent dilation with 18 mm balloon and treatment with APC to hopefully keep it open. I would recommend a Carafate slurry in order to keep the esophagus open is much as possible. . I also recommended that she see ENT and neurology as she has a significant esophageal dysmotility disorder and the fact that her esophagus does not contract in I would like neurology's and psychiatry's input and regarding possible medication side effects causing severe gastroparesis and esophageal dysmotility. He has made an appointment with ENT for evaluation of her thick mucus that she keeps producing that I believe is contributing to her severe esophagitis and esophageal dysphagia. (11) Gram-negative bacteremia: (12) UTI (urinary tract infection): (13) Debility: (14) Erosive esophagitis: PLAN: . Severe erosive esophagitis refractory to medical therapy secondary to concurrent gastroparesis and hiatal hernia. Would recommend esophageal stent. Patient's says they are totally against a feeding tube. Continue aggressive PPI therapy. Continue antiemetics as previously ordered. Charges/Coding Visit Charges Inpatient E&M: [id number] [facility] L3
== END 2022-12-24 13:56 | disposition home health service (06) | DRG 682 ==
LOC: ED 08:24 → ICU 08:53 → PCU 12-17 04:32
PROVIDERS: Internal Medicine Gastroenterology; Admitting Provider Internal Medicine; Emergency Provider Emergency Medicine; PCP Nurse Practitioner Family; Visit Provider Internal Medicine
PROC: 0DJ08ZZ Inspection of Upper Intestinal Tract, Via Natural or Artificial Opening Endoscopic (ICD-10-PCS; CPT 43235; principal; 2022-12-15 12:10)
DX: N17.9 Acute kidney failure, unspecified (principal); E43 Unspecified severe protein-calorie malnutrition; K20.81 Other esophagitis with bleeding; R78.81 Bacteremia; E87.0 Hyperosmolality and hypernatremia; N39.0 Urinary tract infection, site not specified; Z68.1 Body mass index [BMI] 19.9 or less, adult; D63.8 Anemia in other chronic diseases classified elsewhere; K22.2 Esophageal obstruction; E87.8 Other disorders of electrolyte and fluid balance, not elsewhere classified; F31.9 Bipolar disorder, unspecified; N18.32 Chronic kidney disease, stage 3b; E21.0 Primary hyperparathyroidism; E86.0 Dehydration; I12.9 Hypertensive chronic kidney disease with stage 1 through stage 4 chronic kidney disease, or unspecified chronic kidney disease; K44.9 Diaphragmatic hernia without obstruction or gangrene; E87.5 Hyperkalemia; K31.84 Gastroparesis; E05.90 Thyrotoxicosis, unspecified without thyrotoxic crisis or storm; G24.01 Drug induced subacute dyskinesia; K22.4 Dyskinesia of esophagus; D50.9 Iron deficiency anemia, unspecified; E83.52 Hypercalcemia; E07.81 Sick-euthyroid syndrome; R13.10 Dysphagia, unspecified; M81.0 Age-related osteoporosis without current pathological fracture; B96.1 Klebsiella pneumoniae [K. pneumoniae] as the cause of diseases classified elsewhere; G89.29 Other chronic pain; R53.81 Other malaise; Z87.891 Personal history of nicotine dependence
CPT/HCPCS: 36415; 71045; 74221; 76770; 80048; 80053; 81001; 82728; 83540; 83550; 83605; 83735; 84100; 84439; 84443; 85014; 85018; 85025; 85045; 87040; 87077; 87086; 87088; 87186; 92507; 92526; 92610; 93005; 94668; 94762; 97110; 97116; 97162; 97166; 97530; 97535; 97803; 99252; 99285; J7040; J7050; J7120; A4216; G0463; J0696; J2405; J2916

== ENCOUNTER 2022-12-30 14:04 | Outpatient (RCR) | payer MEDICARE, SELFPAY ==
[2022-12-10 08:41] VITALS: BMI 20.4
[2022-12-30 15:25] LABS: ALB/GLOB Ratio 0.8 RATIO (0.9-2.4); AST(SGOT) 20 U/L (15-37); Alanine Aminotransfer ALT/SGPT 21 U/L (13-56); Alkaline Phosphatase 80 U/L (45-117); Anion Gap 7 (5-15); BUN 44 mg/dL (7-18); BUN/Creat Ratio 23.5 RATIO (10-20); Calcium,Total 10.7 mg/dL (8.5-10.1); Chloride 108 mmol/L (98-107); Creatinine, Serum 1.87 mg/dL (0.55-1.02); EST Glomerular Filtration Rate 28 mL/min (>60); Est Glom Filt Rate - Afr Amer 34 mL/min (>60); Globulin 3.9 g/dL (2.2-4.2); Glucose 119 mg/dL (74-106); Potassium 4.6 mmol/L (3.5-5.1); Protein, Total 6.9 g/dL (6.4-8.2); Sodium Level 141 mmol/L (136-145)
== END 2022-12-30 18:00 | disposition home or self-care (01) ==
LOC: LAB 14:04
PROVIDERS: Family Provider Nurse Practitioner Family; PCP Nurse Practitioner Family; Referring Provider Nurse Practitioner Family; Visit Provider Nurse Practitioner Family
DX: N18.30 Chronic kidney disease, stage 3 unspecified (principal)
CPT/HCPCS: 36415; 80053

== ENCOUNTER 2023-01-05 09:27 | Outpatient (CLI) | payer MEDICARE, SELFPAY ==
[2023-01-05 10:03] LABS: Hematocrit 29.4 % (37-47); Hemoglobin 8.6 g/dL (12.0-15.0); Mean Corp Hgb Conc 29.3 g/dL (32-36); Mean Corpuscular Hgb 28.4 pg (27.0-32.0); Mean Platelet Vol. 8.6 fl (6.2-12.0); Platelet Count 281 K/mm3 (150-450); RBC Distribution Width CV 15.9 % (11.6-14.6); Red Blood Count 3.03 M/mm3 (4.2-5.4); White Blood Count 6.9 K/mm3 (4.4-11.0)
[2023-01-05 10:40] LABS: PTHIN 71.1 pg/mL (18.4-80.1)
[2023-01-05 10:41] LABS: Creatinine, Urine (random) < 13.00 mg/dL (NO RANGE EST.); Protein, Urine (Random) 9.7 mg/dL (<11.9)
[2023-01-05 11:02] LABS: ALB/GLOB Ratio 0.9 RATIO (0.9-2.4); AST(SGOT) 14 U/L (15-37); Alanine Aminotransfer ALT/SGPT 18 U/L (13-56); Albumin, Serum 3.1 g/dL (3.2-5.0); Alkaline Phosphatase 75 U/L (45-117); Anion Gap 5 (5-15); BUN 50 mg/dL (7-18); BUN/Creat Ratio 30.9 RATIO (10-20); Chloride 107 mmol/L (98-107); Creatinine, Serum 1.62 mg/dL (0.55-1.02); EST Glomerular Filtration Rate 33 mL/min (>60); Est Glom Filt Rate - Afr Amer 40 mL/min (>60); Globulin 3.6 g/dL (2.2-4.2); Glucose 100 mg/dL (74-106); Potassium 4.3 mmol/L (3.5-5.1); Protein, Total 6.7 g/dL (6.4-8.2); Sodium Level 142 mmol/L (136-145); T4 Free Direct 0.89 ng/dL (0.76-1.46); Thyroid Stim Hormone (TSH) 0.81 uIU/mL (0.358-3.74)
[2023-01-05 11:13] LABS: Hemoglobin A1c 4.8 % (3.8-5.6)
[2023-01-19 20:10] LABS: Renin, Plasma 2.369 ng/mL/hr (0.167-5.380)
== END 2023-01-05 23:59 | disposition home or self-care (01) ==
LOC: LAB 09:29
PROVIDERS: PCP Nurse Practitioner Family; Referring Provider Nurse Practitioner Family; Visit Provider Nurse Practitioner Family
DX: E23.2 Diabetes insipidus (principal); E13.22 Other specified diabetes mellitus with diabetic chronic kidney disease; E21.3 Hyperparathyroidism, unspecified; N18.32 Chronic kidney disease, stage 3b; E05.90 Thyrotoxicosis, unspecified without thyrotoxic crisis or storm; D64.9 Anemia, unspecified
CPT/HCPCS: 36415; 80053; 82306; 82570; 83036; 83970; 84156; 84244; 84439; 84443; 85027

== ENCOUNTER 2023-01-14 11:01 | Observation (INO) | payer MEDICARE, SELFPAY ==
[2023-01-14 11:02] VITALS: BP 180/104; PULSE 95; RESP 18; TEMP 35.5; O2SAT 100; BMI 20.2
[2023-01-14] MEDS: 0.9% Normal Saline 1,000 ML 250 ML IV ×3 (11:45→20:49)
--- NOTE | 2023-01-14 11:45 | EX.ED.DYSGE1 ---
HPI History of Present Illness Chief Complaint: General Illness Detail of Chief Complaint: Unable to swallow liquids or solids Informant: patient and spouse/S.O. Onset/Context/Timing Onset: Days (Last ate 3 days ago difficulty swallowing past 2 days) Context: Sudden Onset Timing: Continuous Quality: Unable to swallow liquids or solids Location: History of esophageal narrowing Current Severity: Severe Maximum Severity: Severe Worsened by: Narrowing of esophagus Relieved by: Nothing Associated Symptoms Associated Symptoms: Has not been able to eat for 2 days Narrative Narrative: Patient is a 72-year-old woman with history of esophageal narrowing requiring dilation. She was last dilated on December [address] Verma. Findings on EGD were: Impression: ? - Benign-appearing esophageal stenosis. Dilated. ? - Medium-sized hiatal hernia. ? - Normal second portion of the duodenum. ? Biopsied. Patient is not a good informant. is the informant. Case was discussed with Dr. Verma. Patient will be admitted to hospital service with consult to Dr. Verma. He will speak with the patient's again regarding PEG placement. She has gastroparesis which is causing significant esophagitis and stenosis. Prior similar symptoms: Yes Recent Illness/Hospitalization: Yes [facility] Medical History (Updated 01/14/23 @ 13:[address] Michael Pastor MD) CITLALY (acute kidney injury) Anemia Anxiety Back pain Bipolar disorder Bipolar disorder with moderate depression Bladder disease Delirium due to multiple etiologies Diabetes insipidus Dietary restriction Difficulty chewing Erosive esophagitis Falls Former smoker Gastric reflux Gastroparesis Generalized weakness Gram-negative bacteremia History of edema History of herpes zoster History of hiatal hernia Hypercalcemia Hypernatremia Hypertension Post-menopausal Pulmonary emboli Secondary hyperparathyroidism of renal origin Severe malnutrition Severe malnutrition Tardive dyskinesia Thyroid disease Unsteady gait UTI (urinary tract infection) Wears glasses Home Medications cinacalcet 30 mg tablet 30 mg PO SUMOWEFR THYROID 10/04/20 [History Last Taken 12/14/22] methimazole 5 mg tablet 5 mg PO SUMOWEFR . 10/04/20 [History Last Taken 12/14/22] memantine 10 mg tablet 10 mg PO DAILY . 01/03/21 [History Last Taken 12/14/22] cholecalciferol (vitamin D3) 50 mcg (2,000 unit) capsule 2,000 unit PO DAILY SUPPLEMENT 01/15/21 [History Last Taken 12/14/22] tramadol 50 mg tablet 50 mg PO BID PAIN 01/21/22 [History Last Taken 12/14/22] denosumab 60 mg/mL subcutaneous syringe (Prolia) 60 mg subcut .Q6MO . 09/05/22 [History Last Taken 08/27/22] losartan 25 mg tablet 25 mg PO DAILY . 09/05/22 [History Last Taken 12/14/22] oxybutynin chloride 15 mg tablet,extended release 24 hr 15 mg PO DAILY . 09/05/22 [History Last Taken 12/14/22] polyethylene glycol 3350 17 gram/dose oral powder (Miralax) 17 g PO DAILY LAXATIVE 09/05/22 [History Last Taken 09/05/22] ascorbic acid (vitamin C) 1,000 mg tablet (Vitamin C) 1 g PO DAILY SUPPLEMENT 12/15/22 [History Last Taken 12/14/22] lamotrigine 100 mg tablet 150 mg PO DAILY . 12/15/22 [History Last Taken 12/14/22] metoclopramide HCl 5 mg tablet 5 mg PO BID . 12/15/22 [History Last Taken 12/14/22] ferrous sulfate 325 mg (65 mg iron) tablet 325 mg PO QODAY SUPPLEMENT #30 tabs 12/24/22 [Rx Last Taken 12/14/22] guaifenesin 1,200 mg tablet, extended release 12 hr (Mucus Relief ER) 1,200 mg PO BID 7 days #14 tabs 12/24/22 [Rx Last Taken Unknown] lorazepam 2 mg tablet 2 mg PO 4XD PRN AGITATION #1 TAB 12/24/22 [Rx Last Taken 12/14/22] pantoprazole 40 mg tablet,delayed release (Protonix) 40 mg PO BID GERD 30 days #60 tabs 12/24/22 [Rx Last Taken Unknown] sennosides 8.6 mg-docusate sodium 50 mg tablet (Stool Softener-Stimulant Laxative) 2 tab PO BID #0 tabs 12/24/22 [Rx Last Taken Unknown] sucralfate 1 gram tablet 1 g PO 1HR_ACHS 30 days #120 tabs 12/24/22 [Rx Last Taken Unknown] Allergy/AdvReac Type Severity Reaction Status Date / Time No Known Allergies Allergy Verified 01/14/23 11:03 Surgical History History of esophagogastroduodenoscopy (EGD) Hx of esophagogastroduodenoscopy Social History household members: spouse housing: house Smoking Status: Former smoker alcohol intake: never substance use type: does not use additional social history: Ambulates at baseline without assistive device ROS ROS ED Constitutional Constitutional ED: Denies chills, fever(s), subjective, sweats or weight loss Eyes Eyes: Denies blurry vision, change in vision or diplopia ENT ENT ED: Denies ear pain, rhinorrhea or sore throat Cardiovascular Cardiovascular: Denies chest pain, palpitations or racing heartbeat Respiratory/Chest Respiratory/Chest: Denies cough, dyspnea or dyspnea on exertion Gastrointestinal Gastrointestinal: Reports abdominal pain; Denies melena, nausea or vomiting Genitourinary Genitourinary ED: Denies dysuria, hematuria or urinary frequency Musculoskeletal Musculoskeletal: Denies arthralgias, back pain or myalgias Neurologic Neurologic: Reports weakness; Denies paresthesias Psychiatric Psychiatric: Reports anxiety, depression and suicidal thoughts; Denies suicidal ideation Hematologic/Lymphatic Hematologic/Lymphatic: Reports systems reviewed and no addt'l complaints, except as documented Allergic/Immunologic Allergic/Immunologic ED: Denies mouth swelling or tongue swelling EXAM Physical Exam Const Vital Signs: 01/14/23 11:02 Temperature 96 F L Temperature Source Temporal Pulse Rate 95 Respiratory Rate 18 Blood Pressure 180/104 H Blood Pressure Mean 129 Pulse Ox 100 Oxygen Delivery Method Room Air Positive well nourished, well developed and unkempt Constitutional Narrative: Patient appears depressed. She has slow psychomotor skills. She looks older than reported age. General Appearance ED: unkempt, well developed and pallor; Negative for cyanotic or diaphoretic HEENT Reports moist mucous membranes HEENT Narrative: Uvula midline. There is no evidence of angioedema. Head is atraumatic normocephalic. Patient does have alopecia. Ears normal. Nares patent. Eyes PERRL and EOMs intact bilaterally General Eye ED: Negative for pale conjunctiva or scleral icterus Neck no lymphadenopathy, supple and no JVD Neck Narrative: Trachea is midline. There is no is or expiratory stridor. Chest Wall inspection of chest normal and palpation of chest normal Resp normal respiratory effort and clear to auscultation bilaterally Cardio regular rate, regular rhythm, S1 normal heart sound, S2 normal heart sound and no murmurs GI normal to inspection, nondistended, normoactive bowel sounds, non-tender, non-distended and no masses; Negative for hepatosplenomegaly Back/Spine no CVA tenderness Extremity Negative for normal to inspection General Extremety ED: Yes edema; Negative for tenderness General Extremity: edema Neuro CN's II-XII intact bilaterally and no sensory deficits noted Sensorium / Orientation: Negative for alert Motor Exam: strength 5/5 throughout Psych Appearance: unkempt Mood & Affect: depressed Skin no rashes or lesions noted and No skin turgor normal General Skin Exam: pallor; Negative for elasticity normal or jaundice MDM MDM MDM Narrative Medical decision making narrative: Patient presents with altered mental status. Will obtain CBC and BMP to assess for metabolic infectious causes. This may represent anxiety. Review of prior records indicates patient does have history of chronic kidney disease. Did speak with the who provided additional information. Case was discussed Dr. Verma. Recommended admission and will speak with again regarding placement of PEG History & Record Review Discussion w/independent historian: Patient and Significant other Additional record(s) reviewed:: Prior inpatient record (Documented in the HPI narrative) and Prior labs Lab Data Attestation: I reviewed the patient's lab results. Lab results narrative: CBC reveals mild anemia. This is approximately baseline for patient. Creatinine is slightly elevated from baseline at 1.88. Glucose is normal. CO2 anion gap is normal electrolytes are remarkable slight elevation of chloride. Labs: Laboratory Results - last 24 hr 01/14/23 01/14/23 11:40 11:40 WBC 6.3 RBC 3.67 L Hgb 10.2 L Hct 33.5 L MCV 91.3 MCH 27.8 MCHC 30.4 L RDW Std Deviation 51.6 H RDW Coeff of Lee 15.3 H Plt Count MPV 9.5 Immature Gran % (Auto) 0.500 Neut % (Auto) 65.3 Lymph % (Auto) 24.9 [place] % (Auto) 7.3 Eos % (Auto) 1.4 Baso % (Auto) 0.6 Absolute Neuts (auto) 4.1 Absolute Lymphs (auto) 1.57 Nucleated RBC % 0 Differential Comment SCANNED Platelet Estimate ADEQUATE Sodium 143 Potassium 3.4 L Chloride 111 H Carbon Dioxide 23.0 Anion Gap 9 BUN 35 H Creatinine 1.88 H Estim Creat Clear Calc 23.28 Est GFR (MDRD) Af Amer 34 L Est GFR (MDRD) Non-Af 28 L BUN/Creatinine Ratio 18.6 Glucose 79 Calcium 10.4 H Management Discussion w/another healthcare provider: Hospitalist (Regarding admission and plan) and Gear Hobber (Case discussed with Dr. Verma as mentioned in the HPI and MDM) Treatment and Re-Evaluation :: was made aware of lab results. He was informed that I would contact Dr. Verma and hospitalist for admission. Discharge Plan Triage Chief Complaint: General Illness ED Provider: DawitMichael Dx/Rx/DC Orders Clinical Impression: Stenosis of esophagus, Anemia, unspecified, CKD (chronic kidney disease), stage III, Inability to swallow, Gastric paresis, Dehydration, mild Prescriptions: No Action tramadol 50 mg tablet 50 mg PO BID Hold Instructions: Hold for 1 week and talk to PCP before resumption severe CKD stage IV, creatinine clearance less than 30 mill per minute methimazole 5 MG tablet 5 mg PO SUMOWEFR cinacalcet 30 MG tablet 30 mg PO SUMOWEFR memantine 10 MG tablet 10 mg PO DAILY cholecalciferol (vitamin D3) 2,000 UNIT capsule 2,000 unit PO DAILY oxybutynin chloride 15 mg tablet extended release 24hr 15 mg PO DAILY Label Comments: take 1 tablet by mouth every morning losartan 25 mg tablet 25 mg PO DAILY Label Comments: take 1 tablet by mouth once daily polyethylene glycol 3350 [Miralax] 17 gram/dose Powder 17 g PO DAILY Prolia 60 mg/mL Syringe 60 mg SUBCUT .Q6MO ascorbic acid (vitamin C) [Vitamin C] 1,000 mg Tablet 1 g PO DAILY lamotrigine 100 mg tablet 150 mg PO DAILY Label Comments: take 1 tablet by mouth once daily for 2 WEEKS then INCREASE to 1 ... (REFER TO PRESCRIPTION NOTES). metoclopramide HCl 5 mg tablet 5 mg PO BID Rx Instructions: administer 30 minutes before meals sucralfate 1 gram Tablet 1 g PO 1HR_ACHS 30 Days Qty: 120 0RF sennosides-docusate sodium [Stool Softener-Stimulant Laxat] 8.6-50 mg Tablet 2 tab PO BID Qty: 0 0RF Mucus Relief ER 1,200 mg Tablet Extended Release 12hr 1,200 mg PO BID 7 Days Qty: 14 0RF Rx Instructions: Mix it in applesauce or jelly lorazepam 2 mg tablet 2 mg PO 4XD PRN (Reason: AGITATION) Qty: 1 0RF Label Comments: take 1 tablet by mouth four times a day if needed for anxiety pantoprazole [Protonix] 40 mg tablet,delayed release (DR/EC) 40 mg PO BID 30 Days Qty: 60 2RF Rx Instructions: 40 mg twice daily for 2 months then once daily ferrous sulfate 325 MG tablet 325 mg PO QODAY Qty: 30 0RF Primary Care Provider: Jay Kincaid NP Referrals: Jay Kincaid NP, MERCHANDISING CONSULTANT-C [Primary Care Provider] - Disposition Disposition: Acute Care Hospital [facility]
[2023-01-14 11:59] LABS: Absolute Lymphocyte Count 1.57 X10^3/uL (0.83-4.51); Absolute Neutrophil Count 4.1 X10^3/uL (2.0-7.7); Anion Gap 9 (5-15); BUN 35 mg/dL (7-18); BUN/Creat Ratio 18.6 RATIO (10-20); Basophil# 0.04 X10^3/uL; Basophil% 0.6 % (0-1); Calcium,Total 10.4 mg/dL (8.5-10.1); Chloride 111 mmol/L (98-107); Creatinine, Serum 1.88 mg/dL (0.55-1.02); EST Glomerular Filtration Rate 28 mL/min (>60); Eosinophil# 0.09 X10^3/uL; Eosinophils% 1.4 % (0-5); Est Glom Filt Rate - Afr Amer 34 mL/min (>60); Estimated Creatinine Clearance 23.28 ml/min; Glucose 79 mg/dL (74-106); Hematocrit 33.5 % (37-47); Hemoglobin 10.2 g/dL (12.0-15.0); Lymphocyte # 1.57 X10^3/ul (0.83-4.51); Lymphocyte % 24.9 % (19-41); Mean Corp Hgb Conc 30.4 g/dL (32-36); Mean Corpuscular Hgb 27.8 pg (27.0-32.0); Mean Corpuscular Volume 91.3 fL (81-99); Mean Platelet Vol. 9.5 fl (6.2-12.0); Monocyte# 0.46 X10^3/uL; Monocyte% 7.3 % (0-10); NRBC Flagged by Analyzer 0 % (0-5); Neutrophil # 4.11 X10^3/uL (2.7-7.7); Neutrophil % 65.3 % (47-70); POSITIVE COUNT YES; Potassium 3.4 mmol/L (3.5-5.1); RBC Distribution Width CV 15.3 % (11.6-14.6); RBC Distribution Width SD 51.6 fl (35.1-43.9); Red Blood Count 3.67 M/mm3 (4.2-5.4); Sodium Level 143 mmol/L (136-145); White Blood Count 6.3 K/mm3 (4.4-11.0)
[2023-01-14 12:32] LABS: Differential Indicated SCAN CRITERIA MET
[2023-01-14 12:36] LABS: Differential Comment SCANNED; Platelet Estimate ADEQUATE (ADEQ)
--- NOTE | 2023-01-14 13:52 | PCM.HP.STD ---
HPI - General General Date of Admission: 01/14/23 Date of Service: 01/14/23 Chief Complaint: altered mental status HPI Narrative SIMONA HERNANDEZ, is a 72 F with a PMH as outlined who presents via the ED on 01/14/2023 with a complaint of difficulty swallowing. She has a history of esophageal stenosis, last dilated Dec 22. She has gastroparesis which causes reflux, resulting in the stenosis. She presents with inability to eat or drink anything for 3 days prior to admission. She had no associated fever, chills, nausea vomiting, chest pain, abdominal pain or diarrhea. Review of systems otherwise negative. states they have been referred to neurology for evaluation about why she has difficulty swallowing but they have yet to see neurology. They are adamant that they do not want a PEG tube and want to discuss other means of helping with her esophageal stenosis. Vitals in the ED were blood pressure of 180/104, pulse rate of 95, respiratory rate of 18 and symptoms of 96 Fahrenheit. She was saturating at 100% on room air. CBC showed hemoglobin of 10.2 with WBC of 6.3. Platelets not recorded due to platelet clumping. Chemistry was significant for potassium of 3.4 and Cr of 1.88 as well as calcium of 10.4. ED doctor spoke to head chopper Dr. Mota who stated that patient may need another dilatation but she would likely need a PEG tube. FORMERLY [facility] Medical History CITLALY (acute kidney injury) Anemia Anxiety Back pain Bipolar disorder Bipolar disorder with moderate depression Bladder disease Delirium due to multiple etiologies Diabetes insipidus Dietary restriction Difficulty chewing Erosive esophagitis Falls Former smoker Gastric reflux Gastroparesis Generalized weakness Gram-negative bacteremia History of edema History of herpes zoster History of hiatal hernia Hypercalcemia Hypernatremia Hypertension Post-menopausal Pulmonary emboli Secondary hyperparathyroidism of renal origin Severe malnutrition Severe malnutrition Tardive dyskinesia Thyroid disease Unsteady gait UTI (urinary tract infection) Wears glasses Home Medications cinacalcet 30 mg tablet 30 mg PO SUMOWEFR THYROID 10/04/20 [History Last Taken 01/14/23] methimazole 5 mg tablet 5 mg PO SUMOWEFR . 10/04/20 [History Last Taken 01/14/23] memantine 10 mg tablet 10 mg PO DAILY . 01/03/21 [History Last Taken 01/14/23] cholecalciferol (vitamin D3) 50 mcg (2,000 unit) capsule 2,000 unit PO DAILY SUPPLEMENT 01/15/21 [History Last Taken 01/13/23] denosumab 60 mg/mL subcutaneous syringe (Prolia) 60 mg subcut .Q6MO . 09/05/22 [History Last Taken 08/27/22] losartan 25 mg tablet 25 mg PO DAILY . 09/05/22 [History Last Taken 01/14/23] oxybutynin chloride 15 mg tablet,extended release 24 hr 15 mg PO DAILY . 09/05/22 [History Last Taken 01/14/23] polyethylene glycol 3350 17 gram/dose oral powder (Miralax) 17 g PO DAILY LAXATIVE 09/05/22 [History Last Taken 09/05/22] lamotrigine 100 mg tablet 200 mg PO DAILY . 12/15/22 [History Last Taken 01/14/23] ferrous sulfate 325 mg (65 mg iron) tablet 325 mg PO QODAY SUPPLEMENT #30 tabs 12/24/22 [Rx Last Taken 01/13/23] lorazepam 2 mg tablet 2 mg PO 4XD PRN AGITATION #1 TAB 12/24/22 [Rx Last Taken 01/13/23] pantoprazole 40 mg tablet,delayed release 40 mg PO BID stomach 01/14/23 [History Last Taken 01/13/23] sennosides 8.6 mg-docusate sodium 50 mg tablet (Stool Softener-Stimulant Laxative) 2 tab PO BID laxative 01/14/23 [History Last Taken Unknown] sucralfate 1 gram tablet 1 g PO 1HR_ACHS stomach 01/14/23 [History Last Taken 01/14/23] Allergy/AdvReac Type Severity Reaction Status Date / Time No Known Allergies Allergy Verified 01/14/23 11:03 Surgical History History of esophagogastroduodenoscopy (EGD) Hx of esophagogastroduodenoscopy Social History household members: spouse housing: house Smoking Status: Former smoker alcohol intake: never substance use type: does not use additional social history: Ambulates at baseline without assistive device ROS Constitutional Constitutional: Reports anorexia, fatigue, malaise and weakness; Denies chills or fever(s) Eyes Eyes: Denies change in vision ENT HEENT: Reports dysphagia; Denies headache(s), sinus pressure or sore throat Cardiovascular Cardiovascular: Denies chest pain, dyspnea on exertion, lightheadedness, orthopnea, rapid heart rate or syncope Respiratory/Chest Respiratory/Chest: Denies cough, dyspnea, productive cough, shortness of breath at rest or shortness of breath with exertion Gastrointestinal Gastrointestinal: Denies abdominal pain, constipation, diarrhea, dyspepsia, nausea or vomiting Genitourinary Genitourinary: Denies burning urination or dysuria Musculoskeletal Musculoskeletal: Denies arthralgias Neurologic Neurologic: Denies confusion, dizziness, focal weakness, headache(s), numbness, seizures or syncope Psychiatric Psychiatric: Denies anxiety Endocrine Endocrinology: Denies change in body appearance Vital Signs Vital Signs Vital Signs: 01/14/23 11:02 Temperature 96 F L Temperature Source Temporal Pulse Rate 95 Respiratory Rate 18 Blood Pressure 180/104 H Blood Pressure Mean 129 Pulse Ox 100 Oxygen Delivery Method Room Air Weight Weight: 122 lb Body Mass Index (BMI) 20.2 Physical Exam Const alert, oriented x3 and no apparent distress Constitutional Narrative: very frail and cachectic HEENT normocephalic, head/scalp atraumatic and hearing grossly normal bilaterally HEENT Narrative: dry oral mucosal membranes Eyes PERRL, EOMs intact bilaterally and conjunctivae normal Neck no lymphadenopathy, supple and no JVD Resp normal respiratory effort, no retractions, no use of accessory muscles and clear to auscultation bilaterally Cardio regular rate, regular rhythm, S1 normal heart sound, S2 normal heart sound and no murmurs GI normal to inspection, nondistended, normoactive bowel sounds, soft to palpation, non-tender and non-distended Extremity normal to inspection, full ROM and no clubbing, cyanosis or edema Neuro oriented x3, CN's II-XII intact bilaterally and moves all extremities Sensorium / Orientation: awake and alert Psych affect normal Results Lab / Micro Data Result Diagrams: 01/14/23 11:40 01/14/23 11:40 Labs: Laboratory Results - last 24 hr 01/14/23 11:40: WBC 6.3, RBC 3.67 L, Hgb 10.2 L, Hct 33.5 L, MCV 91.3, MCH 27.8, MCHC 30.4 L, RDW Std Deviation 51.6 H, RDW Coeff of Lee 15.3 H, Plt Count , MPV 9.5, Immature Gran % (Auto) 0.500, Neut % (Auto) 65.3, Lymph % (Auto) 24.9, [place] % (Auto) 7.3, Eos % (Auto) 1.4, Baso % (Auto) 0.6, Absolute Neuts (auto) 4.1, Absolute Lymphs (auto) 1.57, Nucleated RBC % 0, Differential Comment SCANNED, Platelet Estimate ADEQUATE 01/14/23 11:40: Sodium 143, Potassium 3.4 L, Chloride 111 H, Carbon Dioxide 23.0, Anion Gap 9, BUN 35 H, Creatinine 1.88 H, Estim Creat Clear Calc 23.28, Est GFR (MDRD) Af Amer 34 L, Est GFR (MDRD) Non-Af 28 L, BUN/Creatinine Ratio 18.6, Glucose 79, Calcium 10.4 H Assessment & Plan Assessment/Plan (1) Stenosis of esophagus: (2) Inability to swallow: PLAN: Plan #Dysphagia due to esophageal stenosis Esophageal stenosis is apparently due to recurrent reflux had esophageal dilatation in December 2022, but she has not been able to eat or drink admit to med surg consult gastroenterology Patient and state they do not want a PEG tube. # Hypertension: on losartan. says she is able to take her pills. IV hydralazine prn #Bipolar disorder: on lamotrigine. #Anxiety: On lorazepam #Dementia: On memantine #Hypothyroidism: On methimazole #Hyperthyroidism:on methimazole DVT prophylaxis: lovenox CODE STATUS: Full code Patient counseled extensively about different types of CODE STATUS including full code, DNR CCA and DNR CCA. Patient elects to be full code. Total [id number] time 16 minutes. Charges/Coding Visit Charges Inpatient E&M: 07363 Init Hosp L2 Procedures Hospitalists Procedures: 32372 Advncd Care Plan 30 Min
[2023-01-14 15:42] VITALS: BP 139/87; PULSE 89; RESP 18; TEMP 36.2; O2SAT 94
[2023-01-14 16:17] VITALS: BMI 20.2
[2023-01-14 16:30] VITALS: BP 141/95; PULSE 80; RESP 18; TEMP 36.9; O2SAT 100
--- NOTE | 2023-01-14 16:51 | CON.PCM.GI_ITS ---
HPI Consult Data Date of Consult: 01/14/23 HPI Narrative Reason for Consultation: dysphagia HPI Narrative: SIMONA HERNANDEZ, is a 72 F who presents to the ED with severe dehydration and progressive esophageal dysphagia.? She has a history of severe esophagitis, esophageal strictures. She was hospitalized 09/05/22-09/10/22 for aspiration pneu monia.? On 09/08/2022 EGD which revealed LA grade D esophagitis with bleeding which he treated with successfully using bipolar probe.? She has a small hiatal hernia.? He recommended pantoprazole 40 mg twice daily.? He had a gastric emptying study which is abnormal, she has delayed emptying at 73 minutes.? She is accompanied by her , he reports most of her history.? She is having frequent vomiting which occurs after regurgitating her food. Vomited in the middle of last night. Eating soft foods. When she eats then food regurgitates and then she vomits. Taking pills in apple sauce which helps her to be able to swallow them. Some bloating. Bowels are normal. No melena or hematochezia. She had a modified barium swallow study which revealed esophageal retention of fluid in the lower esophagus with retrograde flow remaining below the UES, but this retention was cleared with thin liquid wash.? Barium tablet remains trapped in the esophagus. 09/08/22 EGD: LA Grade D reflux esophagitis, small hiatal hernia, esophageal candidiasis 09/09/22 gastric emptying study: delayed emptying 73 minutes FOR[facility]LY [facility] Medical History CITLALY (acute kidney injury) Anemia Anxiety Back pain Bipolar disorder Bipolar disorder with moderate depression Bladder disease Delirium due to multiple etiologies Diabetes insipidus Dietary restriction Difficulty chewing Erosive esophagitis Falls Former smoker Gastric reflux Gastroparesis Generalized weakness Gram-negative bacteremia History of edema History of herpes zoster History of hiatal hernia Hypercalcemia Hypernatremia Hypertension Post-menopausal Pulmonary emboli Secondary hyperparathyroidism of renal origin Severe malnutrition Severe malnutrition Tardive dyskinesia Thyroid disease Unsteady gait UTI (urinary tract infection) Wears glasses Home Medications cinacalcet 30 mg tablet 30 mg PO SUMOWEFR THYROID 10/04/20 [History Last Taken 01/14/23] methimazole 5 mg tablet 5 mg PO SUMOWEFR . 10/04/20 [History Last Taken 01/14/23] memantine 10 mg tablet 10 mg PO DAILY . 01/03/21 [History Last Taken 01/14/23] cholecalciferol (vitamin D3) 50 mcg (2,000 unit) capsule 2,000 unit PO DAILY SUPPLEMENT 01/15/21 [History Last Taken 01/13/23] denosumab 60 mg/mL subcutaneous syringe (Prolia) 60 mg subcut .Q6MO . 09/05/22 [History Last Taken 08/27/22] losartan 25 mg tablet 25 mg PO DAILY . 09/05/22 [History Last Taken 01/14/23] oxybutynin chloride 15 mg tablet,extended release 24 hr 15 mg PO DAILY . 09/05/22 [History Last Taken 01/14/23] polyethylene glycol 3350 17 gram/dose oral powder (Miralax) 17 g PO DAILY LAXATIVE 09/05/22 [History Last Taken 09/05/22] lamotrigine 100 mg tablet 200 mg PO DAILY . 12/15/22 [History Last Taken 01/14/23] ferrous sulfate 325 mg (65 mg iron) tablet 325 mg PO QODAY SUPPLEMENT #30 tabs 12/24/22 [Rx Last Taken 01/13/23] lorazepam 2 mg tablet 2 mg PO 4XD PRN AGITATION #1 TAB 12/24/22 [Rx Last Taken 01/13/23] pantoprazole 40 mg tablet,delayed release 40 mg PO BID stomach 01/14/23 [History Last Taken 01/13/23] sennosides 8.6 mg-docusate sodium 50 mg tablet (Stool Softener-Stimulant Laxative) 2 tab PO BID laxative 01/14/23 [History Last Taken Unknown] sucralfate 1 gram tablet 1 g PO 1HR_ACHS stomach 01/14/23 [History Last Taken 01/14/23] Allergy/AdvReac Type Severity Reaction Status Date / Time No Known Allergies Allergy Verified 01/14/23 11:03 Surgical History History of esophagogastroduodenoscopy (EGD) Hx of esophagogastroduodenoscopy Social History household members: spouse housing: house Smoking Status: Former smoker alcohol intake: never substance use type: does not use additional social history: Ambulates at baseline without assistive device ROS Constitutional Constitutional: Reports anorexia, fatigue, malaise and weakness; Denies chills or fever(s) Eyes Eyes: Denies change in vision ENT HEENT: Reports dysphagia; Denies headache(s), sinus pressure or sore throat Cardiovascular Cardiovascular: Denies chest pain, dyspnea on exertion, lightheadedness, orthopnea, rapid heart rate or syncope Respiratory/Chest Respiratory/Chest: Denies cough, dyspnea, productive cough, shortness of breath at rest or shortness of breath with exertion Gastrointestinal Gastrointestinal: Denies abdominal pain, constipation, diarrhea, dyspepsia, nausea or vomiting Genitourinary Genitourinary: Denies burning urination or dysuria Musculoskeletal Musculoskeletal: Denies arthralgias Neurologic Neurologic: Denies confusion, dizziness, focal weakness, headache(s), numbness, seizures or syncope Psychiatric Psychiatric: Denies anxiety Endocrine Endocrinology: Denies change in body appearance Physical Exam Const alert, oriented x3 and no apparent distress Constitutional Narrative: very frail and cachectic HEENT normocephalic, head/scalp atraumatic and hearing grossly normal bilaterally HEENT Narrative: dry oral mucosal membranes Eyes PERRL, EOMs intact bilaterally and conjunctivae normal Neck no lymphadenopathy, supple and no JVD Resp normal respiratory effort, no retractions, no use of accessory muscles and clear to auscultation bilaterally Cardio regular rate, regular rhythm, S1 normal heart sound, S2 normal heart sound and no murmurs GI normal to inspection, nondistended, normoactive bowel sounds, soft to palpation, non-tender and non-distended Extremity normal to inspection, full ROM and no clubbing, cyanosis or edema Neuro oriented x3, CN's II-XII intact bilaterally and moves all extremities Sensorium / Orientation: awake and alert Psych affect normal Lab / Micro Data Result Diagrams: 01/14/23 11:40 01/14/23 11:40 Labs: Laboratory Results - last 24 hr 01/14/23 11:40: WBC 6.3, RBC 3.67 L, Hgb 10.2 L, Hct 33.5 L, MCV 91.3, MCH 27.8, MCHC 30.4 L, RDW Std Deviation 51.6 H, RDW Coeff of Lee 15.3 H, Plt Count , MPV 9.5, Immature Gran % (Auto) 0.500, Neut % (Auto) 65.3, Lymph % (Auto) 24.9, [place] % (Auto) 7.3, Eos % (Auto) 1.4, Baso % (Auto) 0.6, Absolute Neuts (auto) 4.1, Absolute Lymphs (auto) 1.57, Nucleated RBC % 0, Differential Comment SCANNED, Platelet Estimate ADEQUATE 01/14/23 11:40: Sodium 143, Potassium 3.4 L, Chloride 111 H, Carbon Dioxide 23.0, Anion Gap 9, BUN 35 H, Creatinine 1.88 H, Estim Creat Clear Calc 23.28, Est GFR (MDRD) Af Amer 34 L, Est GFR (MDRD) Non-Af 28 L, BUN/Creatinine Ratio 18.6, Glucose 79, Calcium 10.4 H Assessment & Plan Assessment/Plan (1) Dysphagia: PLAN: Dysphagia is likely contributing to progressive malnutrition. I had a long talk with her and explained to her that a lot of the mucus that she gets in the back of her throat pain cannot clear secondary to this esophageal stricture. I think she has uncontrolled gastroesophageal reflux disease due to the fact that she has gastroparesis. I discussed with him possibly putting a feeding through as an intermediary until we can figure out how to keep her esophagus open. With frequent dilation with an esophageal stent. I did not feel that Botox was included remedy for her at this time because she has never had esophageal manometry. She should undergo esophageal manometry prior to her being considered for Botox therapy to see if there is any abnormalities of her lower esophageal sphincter. She also has a hiatal hernia and gastroparesis which I think is contributing to her symptoms. She will undergo an upper endoscopy and will be able to make better recommendations after the endoscopy. Charges/Coding Visit Charges Inpatient E&M: 31662 Init Hosp L3
[2023-01-14 21:03] VITALS: BP 146/88; PULSE 79; RESP 18; TEMP 36.9; O2SAT 98
[2023-01-14] MEDS: LORazepam 2 MG/ML Syringe 0.5 MG IV (23:44)
[2023-01-15] VITALS (12 sets, daily range): BP systolic 120–178; BP diastolic 74–98; PULSE 72–101; RESP 16–18; TEMP 36.4–37.1; O2SAT 93–100; BMI 20.1
[2023-01-15] MEDS: 0.9% Normal Saline 1,000 ML 250 ML IV ×2 (00:46→04:10)
[2023-01-15 06:07] LABS: Absolute Lymphocyte Count 1.26 X10^3/uL (0.83-4.51); Absolute Neutrophil Count 3.9 X10^3/uL (2.0-7.7); Basophil# 0.03 X10^3/uL; Basophil% 0.5 % (0-1); Eosinophil# 0.12 X10^3/uL; Eosinophils% 2.1 % (0-5); Hematocrit 27.4 % (37-47); Hemoglobin 8.1 g/dL (12.0-15.0); Lymphocyte # 1.26 X10^3/ul (0.83-4.51); Lymphocyte % 21.6 % (19-41); Mean Corp Hgb Conc 29.6 g/dL (32-36); Mean Corpuscular Hgb 27.8 pg (27.0-32.0); Mean Corpuscular Volume 94.2 fL (81-99); Mean Platelet Vol. 8.2 fl (6.2-12.0); Monocyte# 0.49 X10^3/uL; Monocyte% 8.4 % (0-10); NRBC Flagged by Analyzer 0 % (0-5); Neutrophil % 67.1 % (47-70); Platelet Count 248 K/mm3 (150-450); RBC Distribution Width CV 15.2 % (11.6-14.6); RBC Distribution Width SD 52.6 fl (35.1-43.9); Red Blood Count 2.91 M/mm3 (4.2-5.4); White Blood Count 5.8 K/mm3 (4.4-11.0)
[2023-01-15 06:42] LABS: Anion Gap 11 (5-15); BUN 36 mg/dL (7-18); BUN/Creat Ratio 20.1 RATIO (10-20); Chloride 121 mmol/L (98-107); Creatinine, Serum 1.79 mg/dL (0.55-1.02); EST Glomerular Filtration Rate 30 mL/min (>60); Est Glom Filt Rate - Afr Amer 36 mL/min (>60); Estimated Creatinine Clearance 24.45 ml/min; Glucose 71 mg/dL (74-106); Potassium 3.6 mmol/L (3.5-5.1); Sodium Level 152 mmol/L (136-145)
[2023-01-15 06:55] LABS: Thyroid Stim Hormone (TSH) 0.28 uIU/mL (0.358-3.74)
[2023-01-15 08:42] LABS: Hemoglobin A1c 4.7 % (3.8-5.6)
[2023-01-15] MEDS: Lactated Ringers 1,000 ML 15 ML IV (11:03)
--- NOTE | 2023-01-15 12:03 | PN_ITS ---
Subjective Subjective Patient seen and examined this morning. She still complained of nausea and says she was spitting up a lot at night. Does not really seem like she was vomiting per se but was more spitting up. Review of systems otherwise negative. Gastroenterology reviewed and she is due for EGD today. He has remained hemodynamically stable. Objective Data Objective Data Vital Signs: Vital Signs Temp Pulse Resp BP Pulse Ox O2 Del Method 98.6 F 81 18 134/74 H 97 Room Air 01/15/23 09:42 01/15/23 09:42 01/15/23 09:42 01/15/23 09:42 01/15/23 09:59 01/15/23 09:42 Oxygen Delivery Method Room Air Weight: 121 lb 4.068 oz Body Mass Index (BMI) 20.1 Intake & Output: Intake and Output for Last 24 Hours 01/13/23 01/14/23 01/15/23 23:59 23:59 23:59 Intake Total 1916.67 / 1916.67 2837.5 / 2837.5 Output Total 600 / 600 1700 / 1700 Balance 1316.67 / 1316.67 1137.5 / 1137.5 Lab / Micro Data Result Diagrams: 01/15/23 05:55 01/15/23 05:55 Labs: Laboratory Results - last 24 hr 01/14/23 11:40: WBC 6.3, RBC 3.67 L, Hgb 10.2 L, Hct 33.5 L, MCV 91.3, MCH 27.8, MCHC 30.4 L, RDW Std Deviation 51.6 H, RDW Coeff of Lee 15.3 H, Plt Count , MPV 9.5, Immature Gran % (Auto) 0.500, Neut % (Auto) 65.3, Lymph % (Auto) 24.9, [place] % (Auto) 7.3, Eos % (Auto) 1.4, Baso % (Auto) 0.6, Absolute Neuts (auto) 4.1, Absolute Lymphs (auto) 1.57, Nucleated RBC % 0, Differential Comment SCANNED, Platelet Estimate ADEQUATE 01/15/23 05:55: WBC 5.8, RBC 2.91 L, Hgb 8.1 L, Hct 27.4 L, MCV 94.2, MCH 27.8, MCHC 29.6 L, RDW Std Deviation 52.6 H, RDW Coeff of Lee 15.2 H, Plt Count 248, MPV 8.2, Immature Gran % (Auto) 0.300, Neut % (Auto) 67.1, Lymph % (Auto) 21.6, [place] % (Auto) 8.4, Eos % (Auto) 2.1, Baso % (Auto) 0.5, Absolute Neuts (auto) 3.9, Absolute Lymphs (auto) 1.26, Nucleated RBC % 0 01/15/23 05:55: Sodium 152 H, Potassium 3.6, Chloride 121 H, Carbon Dioxide 20.0 L, Anion Gap 11, BUN 36 H, Creatinine 1.79 H, Estim Creat Clear Calc 24.45, Est GFR (MDRD) Af Amer 36 L, Est GFR (MDRD) Non-Af 30 L, BUN/Creatinine Ratio 20.1 H , Glucose 71 L, Calcium 10.0 01/15/23 05:55: TSH 0.28 L 01/15/23 05:55: Hemoglobin A1c 4.7 01/15/23 05:55: Free T4 1.20 Physical Exam Const alert, oriented x3 and no apparent distress Constitutional Narrative: very frail and cachectic HEENT normocephalic, head/scalp atraumatic and hearing grossly normal bilaterally Eyes PERRL, EOMs intact bilaterally and conjunctivae normal Neck no lymphadenopathy, supple and no JVD Resp normal respiratory effort, no retractions, no use of accessory muscles and clear to auscultation bilaterally Cardio regular rate, regular rhythm, S1 normal heart sound, S2 normal heart sound and no murmurs GI normal to inspection, nondistended, normoactive bowel sounds, soft to palpation, non-tender and non-distended Extremity normal to inspection, full ROM and no clubbing, cyanosis or edema Neuro oriented x3, CN's II-XII intact bilaterally and moves all extremities Sensorium / Orientation: awake and alert Psych affect normal Assessment & Plan Assessment/Plan (1) Stenosis of esophagus: (2) Inability to swallow: PLAN: Plan #Dysphagia due to esophageal stenosis * Esophageal stenosis is apparently due to recurrent reflux * had esophageal dilatation in December 2022, * gastroenterology on board. for EGD today. * Per gastroenterology, patient likely has uncontrolled GERD due to the fact that she has gastroparesis. * Patient and state they do not want a PEG tube. * #Hyponatremia: * Sodium is 152. This is likely due to IV fluid administration. * Will DC IV normal saline and started on D5 water and trend sodium. * # Hypertension: on losartan. IV hydralazine prn #Bipolar disorder: on lamotrigine. #Anxiety: On lorazepam #Dementia: On memantine #Hyperthyroidism:on methimazole DVT prophylaxis: lovenox CODE STATUS: Full code * Charges/Coding Visit Charges Inpatient E&M: 76112 Subs Hosp L2
--- NOTE | 2023-01-15 12:45 | OP.EGD_ITS ---
Patient Name: Fior Escamilla Procedure Date: 01/15/2023 12:22 PM Date of : 1950 Age: 72 Procedure: Upper GI endoscopy Indications: Dysphagia Providers: Francis Verma DO Medicines: Monitored Anesthesia Care Patient Profile: This is a 72 year old female. Refer to note in patient chart for documentation of history and physical. Patient has symptoms of dysphagia with both liquids and solids. Complications: No immediate complications. Procedure: Pre-Anesthesia Assessment: - Prior to the procedure, a History and Physical was performed, and patient medications and allergies were reviewed. The risks and benefits of the procedure and the sedation options and risks were discussed with the patient. All questions were answered and informed consent was obtained. Patient identification and proposed procedure were verified by the physician in the pre-procedure area. Mental Status Examination: alert and oriented. Airway Examination: normal oropharyngeal airway and neck mobility. Respiratory Examination: clear to auscultation. CV Examination: normal. Prophylactic Antibiotics: The patient does not require prophylactic antibiotics. Prior Anticoagulants: The patient has taken no previous anticoagulant or antiplatelet agents. After reviewing the risks and benefits, the patient was deemed in satisfactory condition to undergo the procedure. The anesthesia plan was to use monitored anesthesia care (MAC). Immediately prior to administration of medications, the patient was re-assessed for adequacy to receive sedatives. The heart rate, respiratory rate, oxygen saturations, blood pressure, adequacy of pulmonary ventilation, and response to care were monitored throughout the procedure. The physical status of the patient was re-assessed after the procedure. After obtaining informed consent, the endoscope was passed under direct vision. Throughout the procedure, the patient's blood pressure, pulse, and oxygen saturations were monitored continuously. The gastroscope was introduced through the mouth, and advanced to the second part of duodenum. The upper GI endoscopy was accomplished without difficulty. The patient tolerated the procedure well. Scope In: 12:33:00 PM Scope Out: 12:41:40 PM Total Procedure Duration Time 0 hours 8 minutes 40 seconds Findings: One benign-appearing, intrinsic stenosis was found 30 to 34 cm from the incisors. This stenosis was severe and. The stenosis was traversed after dilation. A TTS dilator was passed through the scope. Dilation with an 18-19-20 mm balloon dilator was performed to 18 mm. The dilation site was examined following endoscope reinsertion and showed complete resolution of luminal narrowing. Estimated blood loss was minimal. A medium-sized hiatal hernia was present. No other significant abnormalities were identified in a careful examination of the stomach. No gross lesions were noted in the duodenal bulb. Impression: - Benign-appearing esophageal stenosis. Dilated. - Medium-sized hiatal hernia. - No gross lesions in the duodenal bulb. - No specimens collected. Recommendation: - [facility]. - Full liquid diet today. - Continue present medications. Procedure Code(s): --- Professional --- 46178, Esophagogastroduodenoscopy, flexible, transoral; with transendoscopic balloon dilation of esophagus (less than 30 mm diameter) CPT copyright 2017 [employer]. All rights reserved. The codes documented in this report are preliminary and upon hearse driver review may be revised to meet current compliance requirements. Francis Verma DO 01/15/2023 12:45:33 PM This report has been signed electronically. Number of Addenda: 0 Note Initiated On: 01/15/2023 12:22 PM
--- NOTE | 2023-01-15 12:46 | OP.CCLET_ITS ---
01/15/2023 Jay Kincaid Re : Upper GI endoscopy procedure for Fior Escamilla Dear Codi This procedure was performed on January. My impressions and recommendations are as follows: Impressions : - Benign-appearing esophageal stenosis. Dilated. - Medium-sized hiatal hernia. - No gross lesions in the duodenal bulb. - No specimens collected. Recommendations : - [facility]. - Full liquid diet today. - Continue present medications. My findings are described in the full procedure note, which is enclosed. If I can be of further assistance, please feel free to contact me at . Sincerely, Francis Verma, 01/15/2023 12:45:33 PM This report has been signed electronically.
--- NOTE | 2023-01-15 15:36 | CASEMGMT ---
RN VERONICA NOTE: Intro role of CM to patient and ARMSTRONG form explained re: Observation status for treatment of dysphagia.? Explained hospitalization will be paid per?her insurance policy for Outpatient billing?and condition will continue to be evaluated for Inpt necessity. Also let pt know that [facility] sends paper in the billing packet with their phone number if questions arise. Discussed Pharmacy section of ARMSTRONG form and self administered medication guideline.? Pt verbalizes understanding and does not have further questions. ?Form signed, copy made and placed in chart, and original given to pt. Pt states she wishes to discharge home w/KAREN w/[facility]. states they cx'd HHC appt for tomorrow and plan for HHC to resume on Thursday. Shanna ARMANDO RN CM
[2023-01-15] MEDS: LORazepam 1 MG Tablet 2 MG PO ×2 (16:13→22:46)
[2023-01-15] MEDS: Losartan Potassium 25 MG Tablet PO (16:32)
[2023-01-15] MEDS: lamoTRIgine 100 MG Tablet 200 MG PO (16:34)
[2023-01-15] MEDS: Memantine Hydrochloride 10 MG Tablet PO (16:35)
[2023-01-15] MEDS: Pantoprazole Sodium 40 MG Tablet PO (16:36)
[2023-01-15] MEDS: Cholecalciferol (VIT D3) 25 MCG TABLET (1,000 UNITS) 50 MCG PO (17:02)
[2023-01-15] MEDS: Tolterodine Tartrate 4 MG CAP.SA PO (17:02)
[2023-01-15] MEDS: Polyethylene Glycol 3350 17 GM PACKET PO (17:03)
[2023-01-15] MEDS: Senna/Docusate Sodium 1 Tablet 2 TABLET PO ×2 (17:03→21:18)
[2023-01-15] MEDS: Ferrous Sulfate 325 MG Tablet PO (17:09)
[2023-01-15] MEDS: Nystatin Powder 15gm Bottle 1 APPLIC TOPICAL ×2 (18:19→21:17)
[2023-01-15] MEDS: methIMAzole 10 MG TABLET 5 MG PO (22:46)
[2023-01-16] VITALS (7 sets, daily range): BP systolic 121–185; BP diastolic 70–101; PULSE 84–96; RESP 16–18; TEMP 36.4–37.4; O2SAT 95–99
[2023-01-16] MEDS: Enoxaparin 30 MG/0.3 ML Syringe SC (05:31)
[2023-01-16 06:19] LABS: Absolute Lymphocyte Count 1.16 X10^3/uL (0.83-4.51); Basophil# 0.03 X10^3/uL; Basophil% 0.5 % (0-1); Eosinophil# 0.13 X10^3/uL; Eosinophils% 2.2 % (0-5); Hematocrit 27.5 % (37-47); Hemoglobin 8.3 g/dL (12.0-15.0); Lymphocyte # 1.16 X10^3/ul (0.83-4.51); Lymphocyte % 19.7 % (19-41); Mean Corp Hgb Conc 30.2 g/dL (32-36); Mean Corpuscular Hgb 28.2 pg (27.0-32.0); Mean Corpuscular Volume 93.5 fL (81-99); Monocyte# 0.58 X10^3/uL; Monocyte% 9.8 % (0-10); NRBC Flagged by Analyzer 0 % (0-5); Neutrophil # 3.98 X10^3/uL (2.7-7.7); Neutrophil % 67.5 % (47-70); Platelet Count 244 K/mm3 (150-450); RBC Distribution Width CV 15.1 % (11.6-14.6); RBC Distribution Width SD 52.1 fl (35.1-43.9); Red Blood Count 2.94 M/mm3 (4.2-5.4); White Blood Count 5.9 K/mm3 (4.4-11.0)
[2023-01-16 06:53] LABS: Anion Gap 8 (5-15); BUN 28 mg/dL (7-18); BUN/Creat Ratio 15.2 RATIO (10-20); Calcium,Total 10.8 mg/dL (8.5-10.1); Chloride 121 mmol/L (98-107); Creatinine, Serum 1.84 mg/dL (0.55-1.02); EST Glomerular Filtration Rate 29 mL/min (>60); Est Glom Filt Rate - Afr Amer 35 mL/min (>60); Estimated Creatinine Clearance 23.64 ml/min; Glucose 111 mg/dL (74-106); Potassium 3.8 mmol/L (3.5-5.1); Sodium Level 153 mmol/L (136-145)
[2023-01-16] MEDS: Cinacalcet HCl 30 MG Tablet PO (07:40)
[2023-01-16] MEDS: Losartan Potassium 25 MG Tablet PO (07:45)
[2023-01-16] MEDS: Nystatin Powder 15gm Bottle 1 APPLIC TOPICAL ×2 (09:25→22:22)
[2023-01-16] MEDS: Polyethylene Glycol 3350 17 GM PACKET PO (09:25)
[2023-01-16] MEDS: lamoTRIgine 100 MG Tablet 200 MG PO (09:27)
[2023-01-16] MEDS: Cholecalciferol (VIT D3) 25 MCG TABLET (1,000 UNITS) 50 MCG PO (09:27)
[2023-01-16] MEDS: Tolterodine Tartrate 4 MG CAP.SA PO (09:27)
[2023-01-16] MEDS: Memantine Hydrochloride 10 MG Tablet PO (09:27)
[2023-01-16] MEDS: LORazepam 1 MG Tablet 2 MG PO ×2 (09:34→22:18)
[2023-01-16] MEDS: Senna/Docusate Sodium 1 Tablet 2 TABLET PO ×2 (09:45→22:21)
--- NOTE | 2023-01-16 12:32 | PN_ITS ---
Subjective Subjective Patient seen and examined. She has no complaints. She had EGD with dilatation of the esophageal stenosis yesterday. Her said she had kept throwing up after the dilatation yesterday; however she is now able to tolerate a diet. REview of systems is otherwise negative. Her sodium remains elevated. Objective Data Objective Data Vital Signs: Vital Signs Temp Pulse Resp BP Pulse Ox O2 Del Method 98.3 F 84 18 143/84 H 98 Room Air 01/16/23 11:46 01/16/23 11:46 01/16/23 11:46 01/16/23 11:46 01/16/23 11:46 01/16/23 11:46 Oxygen Delivery Method Room Air Weight: 121 lb 4.068 oz Body Mass Index (BMI) 20.1 Intake & Output: Intake and Output for Last 24 Hours 01/14/23 01/15/23 01/16/23 23:59 23:59 23:59 Intake Total 1916.67 / 1916.67 4756.75 / 4756.75 582.83 / 582.83 Output Total 600 / 600 2100 / 2100 600 / 600 Balance 1316.67 / 1316.67 2656.75 / 2656.75 -17.17 / -17.17 Medical Nutrition Assessment Dietitian: Malnutrition Criteria Met Start: 01/15/23 13:38 Freq: Status: Active Protocol: Document 01/15/23 12:00 AG (Rec: 01/15/23 13:39 AG [id number]) Nutrition Malnutrition Evidence of Malnutrition Exists Yes Malnutrition (severe): Chronic Evidenced By Suboptimal Energy Intake ( Severe),Weight Loss (Severe) Clinical Problem Chronic Disease or Condition Related Malnutrition Etiology chronic, severe malnutrition related to inadequate oral intake d/t swallowing difficulty Signs/Symptoms as evidenced by unintentional 26#/18% wt loss x 5 months; estimated PO intake meeting < 75% of estimated energy needs > 5 months Status Active Problem Recommendation Dietitian Recommendations/Changes recommend regular diet as tolerated; texture/consistency modifications as indicated. Ensure Plus High Protein 120mL 4x/day w/ medpass when diet advanced. Will follow re: plan of care regarding possible PEG placement and make further recommendations as indicated. Lab / Micro Data Result Diagrams: 01/16/23 06:05 01/16/23 06:05 Labs: Laboratory Results - last 24 hr 01/16/23 06:05: WBC 5.9, RBC 2.94 L, Hgb 8.3 L, Hct 27.5 L, MCV 93.5, MCH 28.2, MCHC 30.2 L, RDW Std Deviation 52.1 H, RDW Coeff of Lee 15.1 H, Plt Count 244, MPV 8.0, Immature Gran % (Auto) 0.300, Neut % (Auto) 67.5, Lymph % (Auto) 19.7, [place] % (Auto) 9.8, Eos % (Auto) 2.2, Baso % (Auto) 0.5, Absolute Neuts (auto) 4.0, Absolute Lymphs (auto) 1.16, Nucleated RBC % 0 01/16/23 06:05: Sodium 153 H, Potassium 3.8, Chloride 121 H, Carbon Dioxide 24.0, Anion Gap 8, BUN 28 H, Creatinine 1.84 H, Estim Creat Clear Calc 23.64, Est GFR (MDRD) Af Amer 35 L, Est GFR (MDRD) Non-Af 29 L, BUN/Creatinine Ratio 15.2, Glucose 111 H, Calcium 10.8 H Physical Exam Const alert, oriented x3 and no apparent distress Constitutional Narrative: very frail and cachectic General Appearance: cooperative HEENT normocephalic, head/scalp atraumatic and hearing grossly normal bilaterally Eyes PERRL, EOMs intact bilaterally and conjunctivae normal Neck no lymphadenopathy, supple and no JVD Lymph Lymphatic: no lymphadenopathy noted Resp normal respiratory effort, normal air movement, no retractions, no use of accessory muscles and clear to auscultation bilaterally Cardio regular rate, regular rhythm, S1 normal heart sound, S2 normal heart sound and no murmurs GI normal to inspection, nondistended, normoactive bowel sounds, soft to palpation, non-tender and non-distended Extremity normal to inspection, full ROM and no clubbing, cyanosis or edema Skin General Skin Exam: no breakdown Neuro oriented x3, CN's II-XII intact bilaterally and moves all extremities Sensorium / Orientation: awake and alert Psych cooperative and affect normal Appearance: appropriate Assessment & Plan Assessment/Plan (1) Stenosis of esophagus: (2) Inability to swallow: PLAN: Plan #Dysphagia due to esophageal stenosis * Esophageal stenosis is apparently due to recurrent reflux * had esophageal dilatation in December 2022, * gastroenterology on board. Had EGD on 01/15/2023 which showed benign looking esophageal stenosis which was dilated * Per gastroenterology, patient likely has uncontrolled GERD due to the fact that she has gastroparesis. * Patient and state they do not want a PEG tube. * she is now tolerating a diet. * #Hyponatremia: * Sodium is 153. This is likely due to IV fluid administration. * on D5W. Will trend sodium * # Hypertension: on losartan. IV hydralazine prn #Bipolar disorder: on lamotrigine. #Anxiety: On lorazepam #Dementia: On memantine #Hyperthyroidism:on methimazole DVT prophylaxis: lovenox CODE STATUS: Full code * Charges/Coding Visit Charges Inpatient E&M: 05860 Subs Hosp L2
--- NOTE | 2023-01-16 15:12 | CASEMGMT ---
ALEXEY MARTIN Readmission Note Previous Admission:? 12/15/2022-12/24/2022 Diagnosis:? CITLALY, severe dehydration? DC Disposition: Home with?[facility] Current Admission? Current Diagnosis: dysphagia Pt presented to ER with altered mental status and dysphagia. Pt last dilation was at last hospital stay and follow up was recommended as this would return. ALEXEY MARTIN in to pt room, pt sitting in chair with eyes closed and did not answer questions. TC to pt , he states that pt was taking medications as ordered from last hospital stay. States pt had not had any follow up appts as they had not come up yet. Pt was to see on the 01/14 but was hospitalized. Was to follow up with [facility] on 01/15 and next week on the . Pt reports that he has called neurology at [place] to try and get an appt but has not been successful. He was agreeable to ALEXEY MARTIN making appt if able. He states he can reschedule the other appts. Pt had dilation this hospital stay as well. Pt and have not been agreeable to PEG tube. Pt with high sodium level currently. [place] plan [place] Plan: Home with [facility] to resume.
--- NOTE | 2023-01-16 15:23 | CASEMGMT ---
Updated Cindy at [facility] that pt plans to return home with [facility]. Order entered.
[2023-01-16 16:04] LABS: Anion Gap 7 (5-15); BUN 27 mg/dL (7-18); BUN/Creat Ratio 14.4 RATIO (10-20); Calcium,Total 10.5 mg/dL (8.5-10.1); Chloride 114 mmol/L (98-107); Creatinine, Serum 1.87 mg/dL (0.55-1.02); EST Glomerular Filtration Rate 28 mL/min (>60); Est Glom Filt Rate - Afr Amer 34 mL/min (>60); Estimated Creatinine Clearance 23.26 ml/min; Glucose 116 mg/dL (74-106); Sodium Level 148 mmol/L (136-145)
--- NOTE | 2023-01-16 18:05 | PN_ITS ---
Subjective Subjective Patient is tolerating a diet. She was given documentation on PEG tube but I think would be the next reasonable option for her. Objective Data Objective Data Vital Signs: Vital Signs Temp Pulse Resp BP Pulse Ox O2 Del Method 98.6 F 90 18 141/75 H 97 Room Air 01/16/23 17:47 01/16/23 17:47 01/16/23 17:47 01/16/23 17:47 01/16/23 17:47 01/16/23 17:47 Oxygen Delivery Method Room Air Weight: 121 lb 4.068 oz Body Mass Index (BMI) 20.1 Intake & Output: Intake and Output for Last 24 Hours 01/14/23 01/15/23 01/16/23 23:59 23:59 23:59 Intake Total 1916.67 / 1916.67 4756.75 / 4756.75 1782.83 / 1782.83 Output Total 600 / 600 2100 / 2100 600 / 600 Balance 1316.67 / 1316.67 2656.75 / 2656.75 1182.83 / 1182.83 Medical Nutrition Assessment Dietitian: Malnutrition Criteria Met Start: 01/15/23 13:38 Freq: Status: Active Protocol: Document 01/15/23 12:00 AG (Rec: 01/15/23 13:39 AG [id number]) Nutrition Malnutrition Evidence of Malnutrition Exists Yes Malnutrition (severe): Chronic Evidenced By Suboptimal Energy Intake ( Severe),Weight Loss (Severe) Clinical Problem Chronic Disease or Condition Related Malnutrition Etiology chronic, severe malnutrition related to inadequate oral intake d/t swallowing difficulty Signs/Symptoms as evidenced by unintentional 26#/18% wt loss x 5 months; estimated PO intake meeting < 75% of estimated energy needs > 5 months Status Active Problem Recommendation Dietitian Recommendations/Changes recommend regular diet as tolerated; texture/consistency modifications as indicated. Ensure Plus High Protein 120mL 4x/day w/ medpass when diet advanced. Will follow re: plan of care regarding possible PEG placement and make further recommendations as indicated. Lab / Micro Data Result Diagrams: 01/16/23 06:05 01/16/23 15:20 Labs: Laboratory Results - last 24 hr 01/16/23 06:05: WBC 5.9, RBC 2.94 L, Hgb 8.3 L, Hct 27.5 L, MCV 93.5, MCH 28.2, MCHC 30.2 L, RDW Std Deviation 52.1 H, RDW Coeff of Lee 15.1 H, Plt Count 244, MPV 8.0, Immature Gran % (Auto) 0.300, Neut % (Auto) 67.5, Lymph % (Auto) 19.7, [place] % (Auto) 9.8, Eos % (Auto) 2.2, Baso % (Auto) 0.5, Absolute Neuts (auto) 4.0, Absolute Lymphs (auto) 1.16, Nucleated RBC % 0 01/16/23 06:05: Sodium 153 H, Potassium 3.8, Chloride 121 H, Carbon Dioxide 24.0, Anion Gap 8, BUN 28 H, Creatinine 1.84 H, Estim Creat Clear Calc 23.64, Est GFR (MDRD) Af Amer 35 L, Est GFR (MDRD) Non-Af 29 L, BUN/Creatinine Ratio 15.2, Glucose 111 H, Calcium 10.8 H 01/16/23 15:20: Sodium 148 H, Potassium 4.0, Chloride 114 H, Carbon Dioxide 27.0, Anion Gap 7, BUN 27 H, Creatinine 1.87 H, Estim Creat Clear Calc 23.26, Est GFR (MDRD) Af Amer 34 L, Est GFR (MDRD) Non-Af 28 L, BUN/Creatinine Ratio 14.4, Glucose 116 H, Calcium 10.5 H Physical Exam Const alert, oriented x3 and no apparent distress Constitutional Narrative: very frail and cachectic General Appearance: cooperative HEENT normocephalic, head/scalp atraumatic and hearing grossly normal bilaterally Eyes PERRL, EOMs intact bilaterally and conjunctivae normal Neck no lymphadenopathy, supple and no JVD Lymph Lymphatic: no lymphadenopathy noted Resp normal respiratory effort, normal air movement, no retractions, no use of accessory muscles and clear to auscultation bilaterally Cardio regular rate, regular rhythm, S1 normal heart sound, S2 normal heart sound and no murmurs GI normal to inspection, nondistended, normoactive bowel sounds, soft to palpation, non-tender and non-distended Extremity normal to inspection, full ROM and no clubbing, cyanosis or edema Skin General Skin Exam: no breakdown Neuro oriented x3, CN's II-XII intact bilaterally and moves all extremities Sensorium / Orientation: awake and alert Psych cooperative and affect normal Appearance: appropriate Assessment & Plan Assessment/Plan (1) CITLALY (acute kidney injury): (2) Hypernatremia: (3) Hyperchloremia: (4) Leukocytosis: (5) Hyperkalemia: (6) Hypercalcemia: (7) Abnormal TSH: (8) Severe dehydration: (9) Severe malnutrition: PLAN: -Continue supplements -Dietitian is following (10) Dysphagia: PLAN: Esophageal dysphagia secondary to recurrent esophageal stricture in the lower one third of the distal esophagus. She underwent dilation with 18 mm balloon and treatment with APC to hopefully keep it open. I would recommend a Carafate slurry in order to keep the esophagus open is much as possible. . I also recommended that she see ENT and neurology as she has a significant esophageal dysmotility disorder and the fact that her esophagus does not con tract in I would like neurology's and psychiatry's input and regarding possible medication side effects causing severe gastroparesis and esophageal dysmotility. He has made an appointment with ENT for evaluation of her thick mucus that she keeps producing that I believe is contributing to her severe esophagitis and esophageal dysphagia. (11) Gram-negative bacteremia: (12) UTI (urinary tract infection): (13) Debility: (14) Erosive esophagitis: PLAN: . Severe erosive esophagitis refractory to medical therapy secondary to concurrent gastroparesis and hiatal hernia. Would recommend esophageal stent. Patient's says they are totally against a feeding tube. Continue aggressive PPI therapy. Continue antiemetics as previously ordered. Charges/Coding Visit Charges Inpatient E&M: 97088 Subs Hosp L3
[2023-01-17] MEDS: Enoxaparin 30 MG/0.3 ML Syringe SC (04:50)
[2023-01-17 05:00] VITALS: BP 138/84; PULSE 88; RESP 18; TEMP 37.1; O2SAT 98
[2023-01-17 07:33] LABS: Absolute Lymphocyte Count 1.81 X10^3/uL (0.83-4.51); Basophil# 0.02 X10^3/uL; Basophil% 0.3 % (0-1); Eosinophil# 0.22 X10^3/uL; Eosinophils% 3.3 % (0-5); Hematocrit 27.7 % (37-47); Hemoglobin 8.2 g/dL (12.0-15.0); Lymphocyte # 1.81 X10^3/ul (0.83-4.51); Mean Corp Hgb Conc 29.6 g/dL (32-36); Mean Corpuscular Hgb 28.1 pg (27.0-32.0); Mean Corpuscular Volume 94.9 fL (81-99); Mean Platelet Vol. 9.3 fl (6.2-12.0); Monocyte# 0.62 X10^3/uL; Monocyte% 9.3 % (0-10); NRBC Flagged by Analyzer 0 % (0-5); Neutrophil # 4.01 X10^3/uL (2.7-7.7); Neutrophil % 59.8 % (47-70); Platelet Count 286 K/mm3 (150-450); RBC Distribution Width CV 14.9 % (11.6-14.6); RBC Distribution Width SD 51.5 fl (35.1-43.9); Red Blood Count 2.92 M/mm3 (4.2-5.4); White Blood Count 6.7 K/mm3 (4.4-11.0)
[2023-01-17] MEDS: Polyethylene Glycol 3350 17 GM PACKET PO (07:46)
[2023-01-17] MEDS: Ferrous Sulfate 325 MG Tablet PO (07:46)
[2023-01-17] MEDS: Memantine Hydrochloride 10 MG Tablet PO (07:46)
[2023-01-17] MEDS: Tolterodine Tartrate 4 MG CAP.SA PO (07:46)
[2023-01-17] MEDS: Senna/Docusate Sodium 1 Tablet 2 TABLET PO (07:46)
[2023-01-17] MEDS: Nystatin Powder 15gm Bottle 1 APPLIC TOPICAL ×2 (07:46→22:02)
[2023-01-17] MEDS: Cholecalciferol (VIT D3) 25 MCG TABLET (1,000 UNITS) 50 MCG PO (07:46)
[2023-01-17] MEDS: Losartan Potassium 25 MG Tablet PO (07:48)
[2023-01-17] MEDS: lamoTRIgine 100 MG Tablet 200 MG PO (07:48)
[2023-01-17 07:49] LABS: Anion Gap 6 (5-15); BUN 31 mg/dL (7-18); BUN/Creat Ratio 17.3 RATIO (10-20); Chloride 111 mmol/L (98-107); Creatinine, Serum 1.79 mg/dL (0.55-1.02); EST Glomerular Filtration Rate 30 mL/min (>60); Est Glom Filt Rate - Afr Amer 36 mL/min (>60); Glucose 93 mg/dL (74-106); Potassium 4.1 mmol/L (3.5-5.1); Sodium Level 142 mmol/L (136-145)
[2023-01-17 08:59] VITALS: BP 142/91; PULSE 89; RESP 18; TEMP 36.9; O2SAT 96
--- NOTE | 2023-01-17 10:14 | PN_ITS ---
Subjective Subjective Patient seen and examined. Her was by her bedside. She had no active complaints. She was able to tolerate her diet. She denied any nausea, vomiting or any other symptoms. She hadnt had any difficulty with swallowing. Review of systems is otherwise negative. Objective Data Objective Data Vital Signs: Vital Signs Temp Pulse Resp BP Pulse Ox O2 Del Method 98.5 F 89 18 142/91 H 96 Room Air 01/17/23 08:59 01/17/23 08:59 01/17/23 08:59 01/17/23 08:59 01/17/23 08:59 01/17/23 08:59 Oxygen Delivery Method Room Air Weight: 121 lb 4.068 oz Body Mass Index (BMI) 20.1 Intake & Output: Intake and Output for Last 24 Hours 01/15/23 01/16/23 01/17/23 23:59 23:59 23:59 Intake Total 4756.75 / 4756.75 2882.83 / 2882.83 953.16 / 953.16 Output Total 2100 / 2100 1250 / 1250 1000 / 1000 Balance 2656.75 / 2656.75 1632.83 / 1632.83 -46.84 / -46.84 Medical Nutrition Assessment Dietitian: Malnutrition Criteria Met Start: 01/15/23 1 3:38 Freq: Status: Active Protocol: Document 01/15/23 12:00 AG (Rec: 01/15/23 13:39 AG [id number]) Nutrition Malnutrition Evidence of Malnutrition Exists Yes Malnutrition (severe): Chronic Evidenced By Suboptimal Energy Intake ( Severe),Weight Loss (Severe) Clinical Problem Chronic Disease or Condition Related Malnutrition Etiology chronic, severe malnutrition related to inadequate oral intake d/t swallowing difficulty Signs/Symptoms as evidenced by unintentional 26#/18% wt loss x 5 months; estimated PO intake meeting < 75% of estimated energy needs > 5 months Status Active Problem Recommendation Dietitian Recommendations/Changes recommend regular diet as tolerated; texture/consistency modifications as indicated. Ensure Plus High Protein 120mL 4x/day w/ medpass when diet advanced. Will follow re: plan of care regarding possible PEG placement and make further recommendations as indicated. Lab / Micro Data Result Diagrams: 01/17/23 05:50 01/17/23 05:50 Labs: Laboratory Results - last 24 hr 01/16/23 15:20: Sodium 148 H, Potassium 4.0, Chloride 114 H, Carbon Dioxide 27.0, Anion Gap 7, BUN 27 H, Creatinine 1.87 H, Estim Creat Clear Calc 23.26, Est GFR (MDRD) Af Amer 34 L, Est GFR (MDRD) Non-Af 28 L, BUN/Creatinine Ratio 14.4, Glucose 116 H, Calcium 10.5 H 01/17/23 05:50: WBC 6.7, RBC 2.92 L, Hgb 8.2 L, Hct 27.7 L, MCV 94.9, MCH 28.1, MCHC 29.6 L, RDW Std Deviation 51.5 H, RDW Coeff of Lee 14.9 H, Plt Count 286, MPV 9.3, Immature Gran % (Auto) 0.300, Neut % (Auto) 59.8, Lymph % (Auto) 27.0, Spencer % (Auto) 9.3, Eos % (Auto) 3.3, Baso % (Auto) 0.3, Absolute Neuts (auto) 4.0, Absolute Lymphs (auto) 1.81, Nucleated RBC % 0 01/17/23 05:50: Sodium 142, Potassium 4.1, Chloride 111 H, Carbon Dioxide 25.0, Anion Gap 6, BUN 31 H, Creatinine 1.79 H, Estim Creat Clear Calc 24.30, Est GFR (MDRD) Af Amer 36 L, Est GFR (MDRD) Non-Af 30 L, BUN/Creatinine Ratio 17.3, Glucose 93, Calcium 10.0 Physical Exam Const alert, oriented x3 and no apparent distress Constitutional Narrative: very frail and cachectic General Appearance: cooperative HEENT normocephalic, head/scalp atraumatic and hearing grossly normal bilaterally Eyes PERRL, EOMs intact bilaterally and conjunctivae normal Neck no lymphadenopathy, supple and no JVD Lymph Lymphatic: no lymphadenopathy noted and no lymphedema noted Resp normal respiratory effort, normal air movement, no retractions, no use of accessory muscles and clear to auscultation bilaterally Cardio regular rate, regular rhythm, S1 normal heart sound, S2 normal heart sound and no murmurs GI normal to inspection, nondistended, normoactive bowel sounds, soft to palpation, non-tender and non-distended Extremity normal to inspection, full ROM and no clubbing, cyanosis or edema Skin General Skin Exam: no breakdown Neuro oriented x3, CN's II-XII intact bilaterally and moves all extremities Sensorium / Orientation: awake and alert Motor Exam: strength 5/5 throughout Psych thought process normal, cooperative and affect normal Appearance: appropriate Assessment & Plan Assessment/Plan (1) Stenosis of esophagus: (2) Inability to swallow: PLAN: Plan #Dysphagia due to esophageal stenosis * Esophageal stenosis is apparently due to recurrent reflux * had esophageal dilatation in December 2022, * gastroenterology on board. Had EGD on 01/15/2023 which showed benign looking esophageal stenosis which was dilated * Per gastroenterology, patient likely has uncontrolled GERD due to the fact that she has gastroparesis. * Patient and state they do not want a PEG tube. * she is now tolerating a diet. She tolerated a liquid diet. Will advance as tolerated. * #Hypernatremia: * resolved. Sodium is now down to 142. * # Hypertension: on losartan. IV hydralazine prn #CKD 3: Cr around his baseline. Will monitor. #Bipolar disorder: on lamotrigine. #Anxiety: On lorazepam #Dementia: On memantine #Hyperthyroidism:on methimazole DVT prophylaxis: lovenox CODE STATUS: Full code * Disposition: will advance diet today to see if she will tolerate a more solid diet. Charges/Coding Visit Charges Inpatient E&M: 96353 Subs Hosp L2
[2023-01-17] MEDS: LORazepam 1 MG Tablet 2 MG PO ×2 (11:49→22:02)
--- NOTE | 2023-01-17 14:12 | PCM.PROGNOTE ---
Subjective Subjective Patient is up and out of the bed into the chair. Her swallowing is a lot better. She denies any chest pain shortness of breath or coughing after eating. Objective Data Objective Data Vital Signs: Vital Signs Temp Pulse Resp BP Pulse Ox O2 Del Method 98.5 F 89 18 142/91 H 96 Room Air 01/17/23 08:59 01/17/23 08:59 01/17/23 08:59 01/17/23 08:59 01/17/23 08:59 01/17/23 08:59 Oxygen Delivery Method Room Air Weight: 121 lb 4.068 oz Body Mass Index (BMI) 20.1 Intake & Output: Intake and Output for Last 24 Hours 01/15/23 01/16/23 01/17/23 23:59 23:59 23:59 Intake Total 4756.75 / 4756.75 2882.83 / 2882.83 953.16 / 953.16 Output Total 2100 / 2100 1250 / 1250 1000 / 1000 Balance 2656.75 / 2656.75 1632.83 / 1632.83 -46.84 / -46.84 Medical Nutrition Assessment Dietitian: Malnutrition Criteria Met Start: 01/15/23 13:38 Freq: Status: Active Protocol: Document 01/17/23 11:02 (Rec: 01/17/23 11:02 [id number]) Nutrition Malnutrition Evidence of Malnutrition Exists Yes Malnutrition (severe): Chronic Evidenced By Suboptimal Energy Intake ( Severe),Weight Loss (Severe) Clinical Problem Chronic Disease or Condition Related Malnutrition Etiology chronic, severe malnutrition related to inadequate oral intake d/t swallowing difficulty Signs/Symptoms as evidenced by unintentional 26#/18% wt loss x 5 months; estimated PO intake meeting < 75% of estimated energy needs > 5 months Status Active Problem Recommendation Dietitian Recommendations/Changes will adjust diet to regular as tolerated; soft and bite sized modifications as indicated. Will add Ensure Plus High Protein 240mL TID w/ meals per pt and family request. Lab / Micro Data Result Diagrams: 01/17/23 05:50 01/17/23 05:50 Labs: Laboratory Results - last 24 hr 01/16/23 15:20: Sodium 148 H, Potassium 4.0, Chloride 114 H, Carbon Dioxide 27.0, Anion Gap 7, BUN 27 H, Creatinine 1.87 H, Estim Creat Clear Calc 23.26, Est GFR (MDRD) Af Amer 34 L, Est GFR (MDRD) Non-Af 28 L, BUN/Creatinine Ratio 14.4, Glucose 116 H, Calcium 10.5 H 01/17/23 05:50: WBC 6.7, RBC 2.92 L, Hgb 8.2 L, Hct 27.7 L, MCV 94.9, MCH 28.1, MCHC 29.6 L, RDW Std Deviation 51.5 H, RDW Coeff of Lee 14.9 H, Plt Count 286, MPV 9.3, Immature Gran % (Auto) 0.300, Neut % (Auto) 59.8, Lymph % (Auto) 27.0, [place] % (Auto) 9.3, Eos % (Auto) 3.3, Baso % (Auto) 0.3, Absolute Neuts (auto) 4.0, Absolute Lymphs (auto) 1.81, Nucleated RBC % 0 01/17/23 05:50: Sodium 142, Potassium 4.1, Chloride 111 H, Carbon Dioxide 25.0, Anion Gap 6, BUN 31 H, Creatinine 1.79 H, Estim Creat Clear Calc 24.30, Est GFR (MDRD) Af Amer 36 L, Est GFR (MDRD) Non-Af 30 L, BUN/Creatinine Ratio 17.3, Glucose 93, Calcium 10.0 Physical Exam Const alert, oriented x3 and no apparent distress Constitutional Narrative: very frail and cachectic General Appearance: cooperative HEENT normocephalic, head/scalp atraumatic and hearing grossly normal bilaterally Eyes PERRL, EOMs intact bilaterally and conjunctivae normal Neck no lymphadenopathy, supple and no JVD Lymph Lymphatic: no lymphadenopathy noted and no lymphedema noted Resp normal respiratory effort, normal air movement, no retractions, no use of accessory muscles and clear to auscultation bilaterally Cardio regular rate, regular rhythm, S1 normal heart sound, S2 normal heart sound and no murmurs GI normal to inspection, nondistended, normoactive bowel sounds, soft to palpation, non-tender and non-distended Extremity normal to inspection, full ROM and no clubbing, cyanosis or edema Skin General Skin Exam: no breakdown Neuro oriented x3, CN's II-XII intact bilaterally and moves all extremities Sensorium / Orientation: awake and alert Motor Exam: strength 5/5 throughout Psych thought process normal, cooperative and affect normal Appearance: appropriate Assessment & Plan Assessment/Plan (1) CITLALY (acute kidney injury): (2) Hypernatremia: (3) Hyperchloremia: (4) Leukocytosis: (5) Hyperkalemia: (6) Hypercalcemia: (7) Abnormal TSH: (8) Severe dehydration: (9) Severe malnutrition: PLAN: -Continue supplements -Dietitian is following (10) Dysphagia: PLAN: Esophageal dysphagia secondary to recurrent esophageal stricture in the lower one third of the distal esophagus. She underwent dilation with 18 mm balloon and treatment with APC to hopefully keep it open. I would recommend a Carafate slurry in order to keep the esophagus open is much as possible. . I also recommended that she see ENT and neurology as she has a significant esophageal dysmotility disorder and the fact that her esophagus does not contract in I would like neurology's and psychiatry's input and regarding possible medication side effects causing severe gastroparesis and esophageal dysmotility. He has made an appointment with ENT for evaluation of her thick mucus that she keeps producing that I believe is contributing to her severe esophagitis and esophageal dysphagia. (11) Gram-negative bacteremia: (12) UTI (urinary tract infection): (13) Debility: (14) Erosive esophagitis: PLAN: . Severe erosive esophagitis refractory to medical therapy secondary to concurrent gastroparesis and hiatal hernia. Would recommend esophageal stent. Patient's says they are totally against a feeding tube. Continue aggressive PPI therapy. Continue antiemetics as previously ordered. Charges/Coding Visit Charges Inpatient E&M: 05136 [facility] Hosp L3
[2023-01-17 15:00] VITALS: BP 129/89; PULSE 94; RESP 18; TEMP 37.2; O2SAT 95
[2023-01-17] MEDS: 0.9% Saline Lock 10 ML Syringe IV (15:49)
[2023-01-17] MEDS: Ondansetron 4 MG/2 ML Vial IV (15:49)
[2023-01-17] MEDS: methIMAzole 10 MG TABLET 5 MG PO (22:04)
[2023-01-17 22:20] VITALS: BP 158/101; PULSE 90; RESP 16; TEMP 37.2; O2SAT 96
[2023-01-18] MEDS: Enoxaparin 30 MG/0.3 ML Syringe SC (05:29)
[2023-01-18] MEDS: Menthol/Lanolin/Calamine/Znox 113 GM Tube 1 APPLIC TOPICAL ×3 (05:30→22:54)
[2023-01-18 05:37] VITALS: BP 119/80; PULSE 98; RESP 16; TEMP 37; O2SAT 94
[2023-01-18 06:41] LABS: Absolute Lymphocyte Count 1.54 X10^3/uL (0.83-4.51); Absolute Neutrophil Count 7.6 X10^3/uL (2.0-7.7); Basophil# 0.03 X10^3/uL; Basophil% 0.3 % (0-1); Hematocrit 30.3 % (37-47); Lymphocyte # 1.54 X10^3/ul (0.83-4.51); Mean Corp Hgb Conc 29.7 g/dL (32-36); Mean Corpuscular Hgb 28.5 pg (27.0-32.0); Mean Corpuscular Volume 95.9 fL (81-99); Mean Platelet Vol. 9.2 fl (6.2-12.0); Monocyte# 0.83 X10^3/uL; Monocyte% 8.1 % (0-10); NRBC Flagged by Analyzer 0 % (0-5); Neutrophil # 7.61 X10^3/uL (2.7-7.7); Neutrophil % 74.2 % (47-70); Platelet Count 292 K/mm3 (150-450); RBC Distribution Width CV 14.6 % (11.6-14.6); RBC Distribution Width SD 51.7 fl (35.1-43.9); Red Blood Count 3.16 M/mm3 (4.2-5.4); White Blood Count 10.3 K/mm3 (4.4-11.0)
[2023-01-18 07:04] LABS: Anion Gap 7 (5-15); BUN 38 mg/dL (7-18); BUN/Creat Ratio 20.7 RATIO (10-20); Calcium,Total 11.1 mg/dL (8.5-10.1); Chloride 108 mmol/L (98-107); Creatinine, Serum 1.84 mg/dL (0.55-1.02); EST Glomerular Filtration Rate 29 mL/min (>60); Est Glom Filt Rate - Afr Amer 35 mL/min (>60); Estimated Creatinine Clearance 23.64 ml/min; Glucose 99 mg/dL (74-106); Potassium 4.3 mmol/L (3.5-5.1); Sodium Level 142 mmol/L (136-145)
[2023-01-18 07:57] VITALS: BP 156/97; PULSE 93; RESP 16; TEMP 36.9; O2SAT 97
[2023-01-18] MEDS: lamoTRIgine 100 MG Tablet 200 MG PO (10:41)
[2023-01-18] MEDS: Memantine Hydrochloride 10 MG Tablet PO (10:41)
[2023-01-18] MEDS: LORazepam 1 MG Tablet 2 MG PO (10:41)
[2023-01-18] MEDS: Cholecalciferol (VIT D3) 25 MCG TABLET (1,000 UNITS) 50 MCG PO (10:42)
[2023-01-18] MEDS: Losartan Potassium 25 MG Tablet PO (10:43)
[2023-01-18] MEDS: Cinacalcet HCl 30 MG Tablet PO (10:43)
[2023-01-18] MEDS: Nystatin Powder 15gm Bottle 1 APPLIC TOPICAL ×2 (10:44→22:54)
[2023-01-18] MEDS: Tolterodine Tartrate 4 MG CAP.SA PO (10:44)
--- NOTE | 2023-01-18 10:46 | PN_ITS ---
Subjective Subjective Patient seen and examined. She says she developed diarrhea yesterday and had several episodes of diarrhea overnight.S he also threw up after eating a regular diet so went back on the soft diet. She denies any shortness of breath, chest pain, abdominal pain or any other symptoms. Review of systems is otherwise negat ariadna. Objective Data Objective Data Vital Signs: Vital Signs Temp Pulse Resp BP Pulse Ox O2 Del Method 98.4 F 93 16 156/97 H 97 Room Air 01/18/23 07:57 01/18/23 07:57 01/18/23 07:57 01/18/23 07:57 01/18/23 07:57 01/18/23 07:57 Oxygen Delivery Method Room Air Weight: 121 lb 4.068 oz Body Mass Index (BMI) 20.1 Intake & Output: Intake and Output for Last 24 Hours 01/16/23 01/17/23 01/19/23 23:59 23:59 00:59 Intake Total 2882.83 / 2882.83 1403.16 / 1403.16 87 / 87 Output Total 1250 / 1250 1600 / 1600 400 / 400 Balance 1632.83 / 1632.83 -196.84 / -196.84 -313 / -313 Medical Nutrition Assessment Dietitian: Malnutrition Criteria Met Start: 01/15/23 13:38 Freq: Status: Active Protocol: Document 01/17/23 11:02 (Rec: 01/17/23 11:02 [id number]) Nutrition Malnutrition Evidence of Malnutrition Exists Yes Malnutrition (severe): Chronic Evidenced By Suboptimal Energy Intake ( Severe),Weight Loss (Severe) Clinical Problem Chronic Disease or Condition Related Malnutrition Etiology chronic, severe malnutrition related to inadequate oral intake d/t swallowing difficulty Signs/Symptoms as evidenced by unintentional 26#/18% wt loss x 5 months; estimated PO intake meeting < 75% of estimated energy needs > 5 months Status Active Problem Recommendation Dietitian Recommendations/Changes will adjust diet to regular as tolerated; soft and bite sized modifications as indicated. Will add Ensure Plus High Protein 240mL TID w/ meals per pt and family request. Lab / Micro Data Result Diagrams: 01/18/23 06:06 01/18/23 06:06 Labs: Laboratory Results - last 24 hr 01/18/23 06:06: WBC 10.3, RBC 3.16 L, Hgb 9.0 L, Hct 30.3 L, MCV 95.9, MCH 28.5, MCHC 29.7 L, RDW Std Deviation 51.7 H, RDW Coeff of Lee 14.6, Plt Count 292, MPV 9.2, Immature Gran % (Auto) 0.400, Neut % (Auto) 74.2 H, Lymph % (Auto) 15.0 L, [place] % (Auto) 8.1, Eos % (Auto) 2.0, Baso % (Auto) 0.3, Absolute Neuts (auto) 7.6, Absolute Lymphs (auto) 1.54, Nucleated RBC % 0 01/18/23 06:06: Sodium 142, Potassium 4.3, Chloride 108 H, Carbon Dioxide 27.0, Anion Gap 7, BUN 38 H, Creatinine 1.84 H, Estim Creat Clear Calc 23.64, Est GFR (MDRD) Af Amer 35 L, Est GFR (MDRD) Non-Af 29 L, BUN/Creatinine Ratio 20.7 H, Glucose 99, Calcium 11.1 H Physical Exam Const alert, oriented x3 and no apparent distress Constitutional Narrative: very frail and cachectic General Appearance: cooperative HEENT normocephalic, head/scalp atraumatic and hearing grossly normal bilaterally Eyes PERRL, EOMs intact bilaterally and conjunctivae normal Neck no lymphadenopathy, supple and no JVD Lymph Lymphatic: no lymphadenopathy noted and no lymphedema noted Resp normal respiratory effort, normal air movement, no retractions, no use of accessory muscles and clear to auscultation bilaterally Cardio regular rate, regular rhythm, S1 normal heart sound, S2 normal heart sound and no murmurs GI normal to inspection, nondistended, normoactive bowel sounds, soft to palpation, non-tender and non-distended Extremity normal to inspection, full ROM, normal capillary refill and no clubbing, cyano sis or edema Skin General Skin Exam: no breakdown Neuro oriented x3, CN's II-XII intact bilaterally and moves all extremities Sensorium / Orientation: awake and alert Motor Exam: strength 5/5 throughout Psych thought process normal, cooperative and affect normal Appearance: appropriate Assessment & Plan Assessment/Plan (1) Stenosis of esophagus: (2) Inability to swallow: PLAN: Plan #Dysphagia due to esophageal stenosis * Esophageal stenosis is apparently due to recurrent reflux * had esophageal dilatation in December 2022, * gastroenterology on board. Had EGD on 01/15/2023 which showed benign looking esophageal stenosis which was dilated * Per gastroenterology, patient likely has uncontrolled GERD due to the fact that she has gastroparesis. * Patient and state they do not want a PEG tube. * on soft diet. Advance as tolerated * #Diarrhea * developed diarrhea overnight. Says it is now improving * if it persists, will check for C Diff * #Hypernatremia: * resolved. Sodium is now down to 142. * # Hypertension: on losartan. IV hydralazine prn #CKD 3: Cr around her baseline. Will monitor. #Bipolar disorder: on lamotrigine. #Anxiety: On lorazepam #Dementia: On memantine #Hyperthyroidism:on methimazole DVT prophylaxis: lovenox CODE STATUS: Full code * Disposition: for likely discharge over the next 24-48 hours if diarrhea doesnt recur Charges/Coding Visit Charges Inpatient E&M: 03330 Subs Hosp L2
--- NOTE | 2023-01-18 12:32 | PN_ITS ---
Subjective Subjective Patient said that she had an episode of vomiting due to thick mucus. She denies any esophageal dysphagia. She denies any abdominal pain but she did admit to a few loose stools. She is still tolerating a diet at this time. Objective Data Objective Data Vital Signs: Vital Signs Temp Pulse Resp BP Pulse Ox O2 Del Method 98.4 F 93 16 156/97 H 97 Room Air 01/18/23 07:57 01/18/23 07:57 01/18/23 07:57 01/18/23 07:57 01/18/23 07:57 01/18/23 07:57 Oxygen Delivery Method Room Air Weight: 121 lb 4.068 oz Body Mass Index (BMI) 20.1 Intake & Output: Intake and Output for Last 24 Hours 01/16/23 01/17/23 01/19/23 23:59 23:59 00:59 Intake Total 2882.83 / 2882.83 1403.16 / 1403.16 987 / 987 Output Total 1250 / 1250 1600 / 1600 400 / 400 Balance 1632.83 / 1632.83 -196.84 / -196.84 587 / 587 Medical Nutrition Assessment Dietitian: Malnutrition Criteria Met Start: 01/15/23 13:38 Freq: Status: Active Protocol: Document 01/17/23 11:02 (Rec: 01/17/23 11:02 [id number]) Nutrition Malnutrition Evidence of Malnutrition Exists Yes Malnutrition (severe): Chronic Evidenced By Suboptimal Energy Intake ( Severe),Weight Loss (Severe) Clinical Problem Chronic Disease or Condition Related Malnutrition Etiology chronic, severe malnutrition related to inadequate oral intake d/t swallowing difficulty Signs/Symptoms as evidenced by unintentional 26#/18% wt loss x 5 months; estimated PO intake meeting < 75% of estimated energy needs > 5 months Status Active Problem Recommendation Dietitian Recommendations/Changes will adjust diet to regular as tolerated; soft and bite sized modifications as indicated. Will add Ensure Plus High Protein 240mL TID w/ meals per pt and family request. Lab / Micro Data Result Diagrams: 01/18/23 06:06 01/18/23 06:06 Labs: Laboratory Results - last 24 hr 01/18/23 06:06: WBC 10.3, RBC 3.16 L, Hgb 9.0 L, Hct 30.3 L, MCV 95.9, MCH 28.5, MCHC 29.7 L, RDW Std Deviation 51.7 H, RDW Coeff of Lee 14.6, Plt Count 292, MPV 9.2, Immature Gran % (Auto) 0.400, Neut % (Auto) 74.2 H, Lymph % (Auto) 15.0 L, [place] % (Auto) 8.1, Eos % (Auto) 2.0, Baso % (Auto) 0.3, Absolute Neuts (auto) 7.6, Absolute Lymphs (auto) 1.54, Nucleated RBC % 0 01/18/23 06:06: Sodium 142, Potassium 4.3, Chloride 108 H, Carbon Dioxide 27.0, Anion Gap 7, BUN 38 H, Creatinine 1.84 H, Estim Creat Clear Calc 23.64, Est GFR (MDRD) Af Amer 35 L, Est GFR (MDRD) Non-Af 29 L, BUN/Creatinine Ratio 20.7 H, Glucose 99, Calcium 11.1 H Physical Exam Const alert, oriented x3 and no apparent distress Constitutional Narrative: very frail and cachectic General Appearance: cooperative HEENT normocephalic, head/scalp atraumatic and hearing grossly normal bilaterally Eyes PERRL, EOMs intact bilaterally and conjunctivae normal Neck no lymphadenopathy, supple and no JVD Lymph Lymphatic: no lymphadenopathy noted and no lymphedema noted Resp normal respiratory effort, normal air movement, no retractions, no use of accessory muscles and clear to auscultation bilaterally Cardio regular rate, regular rhythm, S1 normal heart sound, S2 normal heart sound and no murmurs GI normal to inspection, nondistended, normoactive bowel sounds, soft to palpation, non-tender and non-distended Extremity normal to inspection, full ROM, normal capillary refill and no clubbing, cy anosis or edema Skin General Skin Exam: no breakdown Neuro oriented x3, CN's II-XII intact bilaterally and moves all extremities Sensorium / Orientation: awake and alert Motor Exam: strength 5/5 throughout Psych thought process normal, cooperative and affect normal Appearance: appropriate Assessment & Plan Assessment/Plan (1) CITLALY (acute kidney injury): (2) Hypernatremia: (3) Severe malnutrition: PLAN: -Continue supplements -Dietitian is following (4) Dysphagia: PLAN: Esophageal dysphagia secondary to recurrent esophageal stricture in the lower one third of the distal esophagus. She underwent dilation with 18 mm bal loon and treatment with APC to hopefully keep it open. I would recommend a Carafate slurry in order to keep the esophagus open is much as possible. . I also recommended that she see ENT and neurology as she has a significant esophageal dysmotility disorder and the fact that her esophagus does not contract in I would like neurology's and psychiatry's input and regarding possible medication side effects causing severe gastroparesis and esophageal dysmotility. He has made an appointment with ENT for evaluation of her thick mucus that she keeps producing that I believe is contributing to her severe esophagitis and esophageal dysphagia. (5) Gram-negative bacteremia: (6) UTI (urinary tract infection): (7) Debility: (8) Erosive esophagitis: PLAN: . Severe erosive esophagitis refractory to medical therapy secondary to concurrent gastroparesis and hiatal hernia. Would recommend esophageal stent. Patient's says they are totally against a feeding tube. Continue aggressive PPI therapy. Continue antiemetics as previously ordered. (9) Diarrhea: PLAN: I will check fecal leukocytes, stool culture and C. difficile (10) Anemia, unspecified: PLAN: . Her hemoglobin is improving. I suspect part was dilutional and partly his anemia chronic disease. 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 Recommend antidumping diet. Charges/Coding Visit Charges Inpatient E&M: 50313 Subs Hosp L3
[2023-01-18 15:02] VITALS: BP 104/79; PULSE 87; RESP 16; TEMP 37; O2SAT 98
[2023-01-18] MEDS: methIMAzole 10 MG TABLET 5 MG PO (22:55)
[2023-01-18 23:28] VITALS: BP 120/83; PULSE 94; RESP 16; TEMP 37.1; O2SAT 95
[2023-01-19 04:40] VITALS: BP 154/96; PULSE 92; RESP 16; TEMP 36.7; O2SAT 96
[2023-01-19] MEDS: Enoxaparin 30 MG/0.3 ML Syringe SC (04:42)
[2023-01-19 06:16] LABS: Absolute Lymphocyte Count 1.88 X10^3/uL (0.83-4.51); Absolute Neutrophil Count 5.7 X10^3/uL (2.0-7.7); Basophil# 0.02 X10^3/uL; Basophil% 0.2 % (0-1); Eosinophil# 0.25 X10^3/uL; Hematocrit 27.8 % (37-47); Hemoglobin 8.4 g/dL (12.0-15.0); Lymphocyte # 1.88 X10^3/ul (0.83-4.51); Lymphocyte % 22.3 % (19-41); Mean Corp Hgb Conc 30.2 g/dL (32-36); Mean Corpuscular Hgb 28.1 pg (27.0-32.0); Mean Platelet Vol. 8.8 fl (6.2-12.0); Monocyte# 0.59 X10^3/uL; NRBC Flagged by Analyzer 0 % (0-5); Neutrophil # 5.66 X10^3/uL (2.7-7.7); Neutrophil % 67.3 % (47-70); Platelet Count 250 K/mm3 (150-450); RBC Distribution Width CV 14.9 % (11.6-14.6); RBC Distribution Width SD 50.7 fl (35.1-43.9); Red Blood Count 2.99 M/mm3 (4.2-5.4); White Blood Count 8.4 K/mm3 (4.4-11.0)
[2023-01-19 06:37] LABS: Anion Gap 5 (5-15); BUN 45 mg/dL (7-18); BUN/Creat Ratio 26.9 RATIO (10-20); Calcium,Total 10.8 mg/dL (8.5-10.1); Chloride 105 mmol/L (98-107); Creatinine, Serum 1.67 mg/dL (0.55-1.02); EST Glomerular Filtration Rate 32 mL/min (>60); Est Glom Filt Rate - Afr Amer 39 mL/min (>60); Estimated Creatinine Clearance 26.05 ml/min; Glucose 97 mg/dL (74-106); Potassium 3.8 mmol/L (3.5-5.1); Sodium Level 139 mmol/L (136-145)
[2023-01-19 07:58] VITALS: O2SAT 97
[2023-01-19] MEDS: Ferrous Sulfate 325 MG Tablet PO (08:16)
[2023-01-19 08:30] VITALS: BP 134/88; PULSE 90; RESP 18; TEMP 36.8; O2SAT 96
[2023-01-19 08:51] VITALS: O2SAT 97
--- NOTE | 2023-01-19 09:15 | DCINST_ITS ---
Discharge Instructions Diet Discharge Diet: Low fat / Low cholesterol Activity Discharge Activity: Return to Normal Activity Dressing / Incision Call your doctor if you observe: Fever of 101 or Higher, Shortness of breath, Dizziness, Fainting spells, Swelling in the ankles, Chest pain and Increased palpitations (irregular heartbeat) Follow Up Care Test Results: Test results from this visit will be discussed in further detail at your follow- up appointment, if applicable. Discharge Plan Admission Admit Date/Time: 01/16/23 09:53 Attending Provider: Jeyson Thomas Primary Care Provider: Jay Kincaid NP Consulting Providers: Roz Amador Instructions Additional Instructions / Restrictions: Follow-up with your PCP in 3 to 5 days to monitor your anemia Discharge Orders/Prescriptions Prescriptions: Continued methimazole 5 MG tablet 5 mg PO SUMOWEFR cinacalcet 30 MG tablet 30 mg PO SUMOWEFR memantine 10 MG tablet 10 mg PO DAILY cholecalciferol (vitamin D3) 2,000 UNIT capsule 2,000 unit PO DAILY oxybutynin chloride 15 mg tablet extended release 24hr 15 mg PO DAILY Label Comments: take 1 tablet by mouth every morning losartan 25 mg tablet 25 mg PO DAILY Label Comments: take 1 tablet by mouth once daily polyethylene glycol 3350 [Miralax] 17 gram/dose Powder 17 g PO DAILY Prolia 60 mg/mL Syringe 60 mg SUBCUT .Q6MO lamotrigine 100 mg tablet 200 mg PO DAILY Label Comments: take 1 tablet by mouth once daily for 2 WEEKS then INCREASE to 1 ... (REFER TO PRESCRIPTION NOTES). lorazepam 2 mg tablet 2 mg PO 4XD PRN (Reason: AGITATION) Qty: 1 0RF Label Comments: take 1 tablet by mouth four times a day if needed for anxiety ferrous sulfate 325 MG tablet 325 mg PO QODAY Qty: 30 0RF sucralfate 1 gram tablet 1 g PO 1HR_ACHS sennosides-docusate sodium [Stool Softener-Stimulant Laxat] 8.6-50 mg tablet 2 tab PO BID pantoprazole 40 mg tablet,delayed release (DR/EC) 40 mg PO BID Label Comments: take 1 tablet by mouth twice a day Referrals / Follow Up: Jay Kincaid [facility], [facility] [Primary Care Provider] - Within 1 Week FriendFrancis DO [Med Staff - Active Staff] - Within 3 Months Disposition Disposition (needs filled in before D/C Order can be placed): Home Health Service
[2023-01-19] MEDS: Tolterodine Tartrate 4 MG CAP.SA PO (10:04)
[2023-01-19] MEDS: Nystatin Powder 15gm Bottle 1 APPLIC TOPICAL (10:04)
[2023-01-19] MEDS: lamoTRIgine 100 MG Tablet 200 MG PO (10:04)
[2023-01-19] MEDS: LORazepam 1 MG Tablet 2 MG PO (10:04)
[2023-01-19] MEDS: Memantine Hydrochloride 10 MG Tablet PO (10:04)
[2023-01-19] MEDS: Cholecalciferol (VIT D3) 25 MCG TABLET (1,000 UNITS) 50 MCG PO (10:05)
[2023-01-19] MEDS: Menthol/Lanolin/Calamine/Znox 113 GM Tube 1 APPLIC TOPICAL (10:05)
[2023-01-19] MEDS: Cinacalcet HCl 30 MG Tablet PO (10:05)
[2023-01-19] MEDS: Losartan Potassium 25 MG Tablet PO (10:06)
--- NOTE | 2023-01-19 10:25 | CASEMGMT ---
Addendum entered by Danielle Gaming 01/19/23 12:37: RN CM into pt room, pt at bedside, they are aware that C will be in touch with them upon dc. Pt and decline any further homegoing needs. Original Note: Notified Cindy at [facility] that pt will dc today.
--- NOTE | 2023-01-19 10:57 | PHA.DC.MR ---
Pharmacy Service has performed discharge medication reconciliation for this patient. The patient's discharge medication list was reviewed for discrepancies and discrepancies were resolved. Home Medications cinacalcet 30 mg tablet 30 mg PO SUMOWEFR THYROID 10/04/20 methimazole 5 mg tablet 5 mg PO SUMOWEFR . 10/04/20 memantine 10 mg tablet 10 mg PO DAILY . 01/03/21 cholecalciferol (vitamin D3) 50 mcg (2,000 unit) capsule 2,000 unit PO DAILY SUPPLEMENT 01/15/21 denosumab 60 mg/mL subcutaneous syringe (Prolia) 60 mg subcut .Q6MO . 09/05/22 losartan 25 mg tablet 25 mg PO DAILY . 09/05/22 oxybutynin chloride 15 mg tablet,extended release 24 hr 15 mg PO DAILY . 09/05/22 polyethylene glycol 3350 17 gram/dose oral powder (Miralax) 17 g PO DAILY LAXATIVE 09/05/22 lamotrigine 100 mg tablet 200 mg PO DAILY . 12/15/22 ferrous sulfate 325 mg (65 mg iron) tablet 325 mg PO QODAY SUPPLEMENT #30 tabs 12/24/22 lorazepam 2 mg tablet 2 mg PO 4XD PRN AGITATION #1 TAB 12/24/22 pantoprazole 40 mg tablet,delayed release 40 mg PO BID stomach 01/14/23 sennosides 8.6 mg-docusate sodium 50 mg tablet (Stool Softener-Stimulant Laxative) 2 tab PO BID laxative 01/14/23 sucralfate 1 gram tablet 1 g PO 1HR_ACHS stomach 01/14/23
[2023-01-19 12:33] VITALS: BP 155/70; PULSE 88; RESP 18; TEMP 37.2; O2SAT 100
--- NOTE | 2023-01-19 12:42 | CHAPLAIN ---
Type of Pastoral Visit _x__ Initial Visit ___ Follow-up Visit ___ On-call Visit ___ General Patient Visit ___ Spiritual Assessment ___ Family Conference ___ Bereavement ___ Rapid Response ___ Code Blue ___ Other (describe below) Pastoral Care Referral From _x__ Patient ___ Family ___ Nurse ___ Physician ___ [place] ___ Forestry Foreman ___ Other (describe below) Sacrament/Intervention ___ Active listening ___ Anointing ___ Samaritan ___ Bereavement ___ Communion ___ Leeanne exploration ___ ___ Life review ___ Prayer ___ Reconciliation ___ Sacrament of Sick _x__ Supportive presence ___ Wedding ___ Other (describe below) Pastoral Comments patient is awake and states that she is doing fine and will be going home today; pt states that she has no concerns and is at home to help
--- NOTE | 2023-01-19 12:56 | PN_ITS ---
Subjective Subjective Patient has not had any more diarrhea. She is tolerating a diet. She denies any chest pain or shortness of breath. Objective Data Objective Data Vital Signs: Vital Signs Temp Pulse Resp BP Pulse Ox O2 Del Method 98.9 F 88 18 155/70 H 100 Room Air 01/19/23 12:33 01/19/23 12:33 01/19/23 12:33 01/19/23 12:33 01/19/23 12:33 01/19/23 12:33 Oxygen Delivery Method Room Air Weight: 121 lb 4.068 oz Body Mass Index (BMI) 20.1 Intake & Output: Intake and Output for Last 24 Hours 01/17/23 01/18/23 01/19/23 22:59 23:59 23:59 Intake Total 1198 / 1198 Output Total 1650 / 1650 Balance -452 / -452 Medical Nutrition Assessment Dietitian: Malnutrition Criteria Met Start: 01/15/23 13:38 Freq: Status: Active Protocol: Document 01/17/23 11:02 (Rec: 01/17/23 11:02 [id number]) Nutrition Malnutrition Evidence of Malnutrition Exists Yes Malnutrition (severe): Chronic Evidenced By Suboptimal Energy Intake ( Severe),Weight Loss (Severe) Clinical Problem Chronic Disease or Condition Related Malnutrition Etiology chronic, severe malnutrition related to inadequate oral intake d/t swallowing difficulty Signs/Symptoms as evidenced by unintentional 26#/18% wt loss x 5 months; estimated PO intake meeting < 75% of estimated energy needs > 5 months Status Active Problem Recommendation Dietitian Recommendations/Changes will adjust diet to regular as tolerated; soft and bite sized modifications as indicated. Will add Ensure Plus High Protein 240mL TID w/ meals per pt and family request. Lab / Micro Data Result Diagrams: 01/19/23 06:00 01/19/23 06:00 Labs: Laboratory Results - last 24 hr 01/19/23 06:00: WBC 8.4, RBC 2.99 L, Hgb 8.4 L, Hct 27.8 L, MCV 93.0, MCH 28.1, MCHC 30.2 L, RDW Std Deviation 50.7 H, RDW Coeff of Lee 14.9 H, Plt Count 250, MPV 8.8, Immature Gran % (Auto) 0.200, Neut % (Auto) 67.3, Lymph % (Auto) 22.3, [place] % (Auto) 7.0, Eos % (Auto) 3.0, Baso % (Auto) 0.2, Absolute Neuts (auto) 5.7, Absolute Lymphs (auto) 1.88, Nucleated RBC % 0 01/19/23 06:00: Sodium 139, Potassium 3.8, Chloride 105, Carbon Dioxide 29.0, Anion Gap 5, BUN 45 H, Creatinine 1.67 H, Estim Creat Clear Calc 26.05, Est GFR (MDRD) Af Amer 39 L, Est GFR (MDRD) Non-Af 32 L, BUN/Creatinine Ratio 26.9 H, Glucose 97, Calcium 10.8 H Physical Exam Const alert, oriented x3 and no apparent distress Constitutional Narrative: very frail and cachectic General Appearance: cooperative HEENT normocephalic, head/scalp atraumatic and hearing grossly normal bilaterally Eyes PERRL, EOMs intact bilaterally and conjunctivae normal Neck no lymphadenopathy, supple and no JVD Lymph Lymphatic: no lymphadenopathy noted and no lymphedema noted Resp normal respiratory effort, normal air movement, no retractions, no use of accessory muscles and clear to auscultation bilaterally Cardio regular rate, regular rhythm, S1 normal heart sound, S2 normal heart sound and n o murmurs GI normal to inspection, nondistended, normoactive bowel sounds, soft to palpation, non-tender and non-distended Extremity normal to inspection, full ROM, normal capillary refill and no clubbing, cyanosis or edema Skin General Skin Exam: no breakdown Neuro oriented x3, CN's II-XII intact bilaterally and moves all extremities Sensorium / Orientation: awake and alert Motor Exam: strength 5/5 throughout Psych thought process normal, cooperative and affect normal Appearance: appropriate Assessment & Plan Assessment/Plan (1) CITLALY (acute kidney injury): (2) Hypernatremia: (3) Severe malnutrition: PLAN: -Continue supplements -Dietitian is following (4) Dysphagia: PLAN: Esophageal dysphagia secondary to recurrent esophageal stricture in the lower one third of the distal esophagus. She underwent dilation with 18 mm balloon and treatment with APC to hopefully keep it open. I would recommend a Carafate slurry in order to keep the esophagus open is much as possible. . I also recommended that she see ENT and neurology as she has a significant esophageal dysmotility disorder and the fact that her esophagus does not contract in I would like neurology's and psychiatry's input and regarding possible medication side effects causing severe gastroparesis and esophageal dysmotility. He has made an appointment with ENT for evaluation of her thick mucus that she keeps producing that I believe is contributing to her severe esophagitis and esophageal dysphagia. (5) Gram-negative bacteremia: (6) UTI (urinary tract infection): (7) Debility: (8) Erosive esophagitis: PLAN: . Severe erosive esophagitis refractory to medical therapy secondary to concurrent gastroparesis and hiatal hernia. Would recommend esophageal stent. Patient's says they are totally against a feeding tube. Continue aggressive PPI therapy. Continue antiemetics as previously ordered. (9) Diarrhea: PLAN: I will check fecal leukocytes, stool culture and C. difficile (10) Anemia, unspecified: PLAN: . Her hemoglobin is improving. I suspect part was dilutional and partly his anemia chronic disease. 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 Recommend antidumping diet. Charges/Coding Visit Charges Inpatient E&M: 40050 Subs Hosp L3
--- NOTE | 2023-01-19 14:19 | DS.PCM_ITS ---
Providers Date of Admission: 01/16/23 Primary Care Physician: Jay Kincaid, HARIKAC Consultations 01/14/23 16:23 Consult: Gastroenterology Routine Consulting Provider: [facility] Reason for Consult: esophageal stenosis EMERGENT Consult: No MD Notified: Yes Date Notified: 01/14/23 Time Notified: 14:28 Method of Notification: Text Reason For Visit: DYSPHAGIA Diagnosis Discharge Diagnosis (1) CITLALY (acute kidney injury): Status: Resolved Code(s): N17.9 - Acute kidney failure, unspecified (2) Hypernatremia: Status: Resolved Code(s): E87.0 - Hyperosmolality and hypernatremia (3) Severe malnutrition: Status: Inactive Code(s): E43 - Unspecified severe protein-calorie malnutrition (4) Dysphagia: Status: Acute Code(s): R13.10 - Dysphagia, unspecified (5) Gram-negative bacteremia: Status: Inactive Code(s): R78.81 - Bacteremia (6) UTI (urinary tract infection): Status: Inactive Code(s): N39.0 - Urinary tract infection, site not specified (7) Debility: Status: Acute Code(s): R53.81 - Other malaise (8) Erosive esophagitis: Status: Inactive Code(s): K22.10 - Ulcer of esophagus without bleeding (9) Diarrhea: Status: Acute Code(s): R19.7 - Diarrhea, unspecified (10) Anemia, unspecified: Status: Acute Code(s): D64.9 - Anemia, unspecified (11) Gastric paresis: Status: Acute Code(s): K31.84 - Gastroparesis Medications at Discharge Home Medications cinacalcet 30 mg tablet 30 mg PO SUMOWEFR THYROID 10/04/20 methimazole 5 mg tablet 5 mg PO SUMOWEFR . 10/04/20 memantine 10 mg tablet 10 mg PO DAILY . 01/03/21 cholecalciferol (vitamin D3) 50 mcg (2,000 unit) capsule 2,000 unit PO DAILY SUPPLEMENT 01/15/21 denosumab 60 mg/mL subcutaneous syringe (Prolia) 60 mg subcut .Q6MO . 09/05/22 losartan 25 mg tablet 25 mg PO DAILY . 09/05/22 oxybutynin chloride 15 mg tablet,extended release 24 hr 15 mg PO DAILY . 09/05/22 polyethylene glycol 3350 17 gram/dose oral powder (Miralax) 17 g PO DAILY LAXATIVE 09/05/22 lamotrigine 100 mg tablet 200 mg PO DAILY . 12/15/22 ferrous sulfate 325 mg (65 mg iron) tablet 325 mg PO QODAY SUPPLEMENT #30 tabs 12/24/22 lorazepam 2 mg tablet 2 mg PO 4XD PRN AGITATION #1 TAB 12/24/22 pantoprazole 40 mg tablet,delayed release 40 mg PO BID stomach 01/14/23 sennosides 8.6 mg-docusate sodium 50 mg tablet (Stool Softener-Stimulant Laxative) 2 tab PO BID laxative 01/14/23 sucralfate 1 gram tablet 1 g PO 1HR_ACHS stomach 01/14/23 Hospital Course Operations None Procedures EGD Summary of Care Provided Minutes Spent on Discharge: 35 Hospital Course: Per HPI: SIMONA HERNANDEZ, is a 72 F with a PMH as outlined who presents via the ED on 01/14/2023 with a complaint of difficulty swallowing.? She has a history of esophageal stenosis, last dilated Dec 22. She has gastroparesis which causes reflux, resulting in the stenosis. She presents with inability to eat or drink anything for 3 days prior to admission.? She had no associated fever, chills, nausea vomiting, chest pain, abdominal pain or diarrhea.? Review of systems otherwise negative.? states they have been referred to neurology for evaluation about why she has difficulty swallowing but they have yet to see neurology.? They are adamant that they do not want a PEG tube and want to discuss other means of helping with her esophageal stenosis. Vitals in the ED were blood pressure of 180/104, pulse rate of 95, respiratory rate of 18 and symptoms of 96 Fahrenheit.? She was saturating at 100% on room air.? CBC showed hemoglobin of 10.2 with WBC of 6.3. Platelets not recorded due to platelet clumping. Chemistry was significant for potassium of 3.4 and Cr of 1.88 as well as calcium of 10.4.? ED doctor spoke to night monitor Dr. Mota who stated that patient may need another dilatation but she would likely need a PEG tube. Hospital Course: 1. Dysphagia due to esophageal stenosis/gastroparesis?72-year-old female presented to the hospital with difficulty swallowing. She was found to have esophageal stenosis and had an EGD and proceed with dilation of the stenosis. EGD was on 01/15/2023. She also had some esophagitis and this is likely secondary to her gastroparesis. She is on Carafate as well as twice daily PPI which will be continued. She was slated for discharge over the weekend however she developed an episode of diarrhea while on MiraLAX and Senokot so she was held until today. Her MiraLAX was discontinued and her Senokot was decreased in do sing and she did not have any further episodes of diarrhea. I discussed with her the plan for discharge today she expressed understanding of the risk benefits of going home and would like to go home today. I do recommend she follow-up with her PCP in 3 to 5 days for outpatient monitoring as well as gastroenterology within the next couple of months. 2. Bipolar disorder, anxiety, dimension, hyperthyroidism, hypertension are all chronic medical conditions which complicate her care. Her home medications were continued where appropriate Physical Exam Narrative General: Alert, Oriented x3, Cooperative, No apparent distress HEENT: Atraumatic, PERRLA, EOMI, Normocephalic Oral: Moist Mucosa Neck: Supple, No JVD Lungs: Clear to auscultation, Normal air movement, No rhonchi, No wheeze, No rales Cardiovascular: Regular rate, Regular Rhythm, Normal S1, Normal S2, No murmurs Abdomen: Soft, Non Tender, Non-Distended, No Hepato-splenomegaly Extremities: No edema, Capillary Refill Less than 3 Seconds Skin: No rashes, No breakdown Musculoskeletal: No Tenderness to Palpation of Joints or Extremities Neurological: Cranial nerves II-XII grossly intact, Motor Exam 5/5 strength throughout, Sensory exam intact to light touch and pain Psych/Mental Status: Normal Affect, Appropriate Weight / BMI Weight Weight: 121 lb 4.068 oz Body Mass Index (BMI) 20.1 ABG / Lab / Microbiology Data Result Diagrams: 01/19/23 06:00 01/19/23 06:00 Laboratory: Laboratory Results - last 24 hr 01/19/23 06:00: WBC 8.4, RBC 2.99 L, Hgb 8.4 L, Hct 27.8 L, MCV 93.0, MCH 28.1, MCHC 30.2 L, RDW Std Deviation 50.7 H, RDW Coeff of Lee 14.9 H, Plt Count 250, MPV 8.8, Immature Gran % (Auto) 0.200, Neut % (Auto) 67.3, Lymph % (Auto) 22.3, Alfalfa % (Auto) 7.0, Eos % (Auto) 3.0, Baso % (Auto) 0.2, Absolute Neuts (auto) 5.7, Absolute Lymphs (auto) 1.88, Nucleated RBC % 0 01/19/23 06:00: Sodium 139, Potassium 3.8, Chloride 105, Carbon Dioxide 29.0, Anion Gap 5, BUN 45 H, Creatinine 1.67 H, Estim Creat Clear Calc 26.05, Est GFR (MDRD) Af Amer 39 L, Est GFR (MDRD) Non-Af 32 L, BUN/Creatinine Ratio 26.9 H, Glucose 97, Calcium 10.8 H D/C Instructions Discharge Diet: Low fat / Low cholesterol Call your doctor if you observe: Fever of 101 or Higher, Shortness of breath, Dizziness, Fainting spells, Swelling in the ankles, Chest pain and Increased palpitations (irregular heartbeat) Meaningful Use Info Meaningful Use Diagnoses (Choose all that apply): None applicable Discharge Plan Admission Admit Date/Time: 01/16/23 09:53 Attending Provider: Jeyson Thomas Primary Care Provider: Jay Kincaid [employer] LEAD[employer] Consulting Providers: Roz Amador Instructions Additional Instructions / Restrictions: Follow-up with your PCP in 3 to 5 days to monitor your anemia Discharge Orders/Prescriptions Prescriptions: Continued methimazole 5 MG tablet 5 mg PO SUMOWEFR cinacalcet 30 MG tablet 30 mg PO SUMOWEFR memantine 10 MG tablet 10 mg PO DAILY cholecalciferol (vitamin D3) 2,000 UNIT capsule 2,000 unit PO DAILY oxybutynin chloride 15 mg tablet extended release 24hr 15 mg PO DAILY Label Comments: take 1 tablet by mouth every morning losartan 25 mg tablet 25 mg PO DAILY Label Comments: take 1 tablet by mouth once daily polyethylene glycol 3350 [Miralax] 17 gram/dose Powder 17 g PO DAILY Prolia 60 mg/mL Syringe 60 mg SUBCUT .Q6MO lamotrigine 100 mg tablet 200 mg PO DAILY Label Comments: take 1 tablet by mouth once daily for 2 WEEKS then INCREASE to 1 ... (REFER TO PRESCRIPTION NOTES). lorazepam 2 mg tablet 2 mg PO 4XD PRN (Reason: AGITATION) Qty: 1 0RF Label Comments: take 1 tablet by mouth four times a day if needed for anxiety ferrous sulfate 325 MG tablet 325 mg PO QODAY Qty: 30 0RF sucralfate 1 gram tablet 1 g PO 1HR_ACHS sennosides-docusate sodium [Stool Softener-Stimulant Laxat] 8.6-50 mg tablet 2 tab PO BID pantoprazole 40 mg tablet,delayed release (DR/EC) 40 mg PO BID Label Comments: take 1 tablet by mouth twice a day Referrals / Follow Up: Francis Verma DO [Med Staff - Active Staff] - 01/21/23 1:45 pm Jay Kincaid SAL[employer] TE[employer] LEADER, [employer] LEADER-C [Primary Care Provider] - 01/29/23 11:00 am Disposition Disposition (needs filled in before D/C Order can be placed): Home Health Service Charges/Coding Visit Charges Inpatient E&M: 30993 Disch Hosp >30min
== END 2023-01-19 13:17 | disposition home health service (06) | DRG 392 ==
LOC: ED 13:57 → MS3 14:30
PROVIDERS: Anesthesiology; Internal Medicine Gastroenterology; Admitting Provider Student in an Organized Health Care Education/Training Program; Emergency Provider Emergency Medicine; PCP Nurse Practitioner Family; Visit Provider Family Medicine
PROC: 0DJ08ZZ Inspection of Upper Intestinal Tract, Via Natural or Artificial Opening Endoscopic (ICD-10-PCS; CPT 43235; principal; 2023-01-15 11:55)
DX: K22.2 Esophageal obstruction (principal); E43 Unspecified severe protein-calorie malnutrition; F03.90 Unspecified dementia, unspecified severity, without behavioral disturbance, psychotic disturbance, mood disturbance, and anxiety; F31.9 Bipolar disorder, unspecified; N18.30 Chronic kidney disease, stage 3 unspecified; E87.0 Hyperosmolality and hypernatremia; D63.8 Anemia in other chronic diseases classified elsewhere; R13.0 Aphagia; E86.0 Dehydration; I12.9 Hypertensive chronic kidney disease with stage 1 through stage 4 chronic kidney disease, or unspecified chronic kidney disease; E05.90 Thyrotoxicosis, unspecified without thyrotoxic crisis or storm; K31.84 Gastroparesis; E83.52 Hypercalcemia; K44.9 Diaphragmatic hernia without obstruction or gangrene; F41.9 Anxiety disorder, unspecified; R19.7 Diarrhea, unspecified; Z87.891 Personal history of nicotine dependence; Z79.899 Other long term (current) drug therapy; R53.81 Other malaise; K21.00 Gastro-esophageal reflux disease with esophagitis, without bleeding; D50.9 Iron deficiency anemia, unspecified; Z68.20 Body mass index [BMI] 20.0-20.9, adult
CPT/HCPCS: 43249; 36415; 80048; 83036; 84439; 84443; 85025; 93005; 96361; 96365; 96366; 96372; 96375; 97110; 97116; 97162; 97166; 97530; 97535; 97802; 97803; 99221; 99284; J7030; J7120; A4216; G0378; J2405

== ENCOUNTER 2023-01-30 10:27 | Observation (INO) | payer MEDICARE, SELFPAY ==
[2023-01-30 10:29] VITALS: BP 166/110; PULSE 82; RESP 14; TEMP 35.5; O2SAT 100; BMI 20.3
--- NOTE | 2023-01-30 11:40 | EDS_ITS ---
HPI History of Present Illness Chief Complaint: Foreign Body Informant: patient Narrative Narrative: Patient is a 72-year-old female with history of esophageal strictures require ballooning, nondiabetic gastroparesis, CKD and prior episodes of dehydration hyponatremia presenting with difficulty eating or drinking. Patient's had her esophagus balloon twice this month by Dr. Verma. For the past 2 days she has not been able to eat anything. She is drinking about half of what she could be drinking. She can even tolerate soft foods. She threw up about 2 cups of food and mucus the last time she tried to eat. No blood was thrown out. She has been constipated. She came into the ER for further evaluation. They did call the GI office today and left a message however when they saw them earlier this week they were told if she needs another dilation she will need to come into the hospital. Patient has no other complaints at this time. [facility] Medical History CITLALY (acute kidney injury) Anemia Anxiety Back pain Bipolar disorder Bipolar disorder with moderate depression Bladder disease Delirium due to multiple etiologies Diabetes insipidus Dietary restriction Difficulty chewing Erosive esophagitis Falls Former smoker Gastric reflux Gastroparesis Generalized weakness Gram-negative bacteremia History of edema History of herpes zoster History of hiatal hernia Hypercalcemia Hypernatremia Hypertension Post-menopausal Pulmonary emboli Secondary hyperparathyroidism of renal origin Severe malnutrition Severe malnutrition Stenosis of esophagus Tardive dyskinesia Thyroid disease Unsteady gait UTI (urinary tract infection) Wears glasses Home Medications cinacalcet 30 mg tablet 30 mg PO SUMOWEFR THYROID 10/04/20 [History Last Taken 01/14/23] methimazole 5 mg tablet 5 mg PO SUMOWEFR . 10/04/20 [History Last Taken 01/14/23] memantine 10 mg tablet 10 mg PO DAILY . 01/03/21 [History Last Taken 01/14/23] cholecalciferol (vitamin D3) 50 mcg (2,000 unit) capsule 2,000 unit PO DAILY SUPPLEMENT 01/15/21 [History Last Taken 01/13/23] denosumab 60 mg/mL subcutaneous syringe (Prolia) 60 mg subcut .Q6MO . 09/05/22 [History Last Taken 08/27/22] losartan 25 mg tablet 25 mg PO DAILY . 09/05/22 [History Last Taken 01/14/23] oxybutynin chloride 15 mg tablet,extended release 24 hr 15 mg PO DAILY . 09/05/22 [History Last Taken 01/14/23] polyethylene glycol 3350 17 gram/dose oral powder (Miralax) 17 g PO DAILY LAXATIVE 09/05/22 [History Last Taken 09/05/22] lamotrigine 100 mg tablet 200 mg PO DAILY . 12/15/22 [History Last Taken 01/14/23] ferrous sulfate 325 mg (65 mg iron) tablet 325 mg PO QODAY SUPPLEMENT #30 tabs 12/24/22 [Rx Last Taken 01/13/23] lorazepam 2 mg tablet 2 mg PO 4XD PRN AGITATION #1 TAB 12/24/22 [Rx Last Taken 01/13/23] pantoprazole 40 mg tablet,delayed release 40 mg PO BID stomach 01/14/23 [History Last Taken 01/13/23] guaifenesin 100 mg/5 mL oral liquid 200 mg (10 mL) PO Q4H PRN congestion #1,000 mL 01/21/23 [Rx Last Taken Unknown] sucralfate 100 mg/mL oral suspension 10 ml PO QACHS #1,000 mL 01/21/23 [Rx Last Taken Unknown] Allergy/AdvReac Type Severity Reaction Status Date / Time No Known Allergies Allergy Verified 01/30/23 10:29 Surgical History History of esophagogastroduodenoscopy (EGD) Hx of esophagogastroduodenoscopy Social History household members: spouse housing: house Smoking Status: Former smoker alcohol intake: never substance use type: does not use additional social history: Ambulates at baseline without assistive device ROS ROS ED Constitutional Constitutional ED: Denies chills or fever(s) Eyes Eyes: Denies change in vision ENT ENT ED: Denies sore throat Cardiovascular Cardiovascular: Denies chest pain or palpitations Respiratory/Chest Respiratory/Chest: Denies cough or dyspnea Gastrointestinal Gastrointestinal: Reports constipation, vomiting and other; Denies abdominal pain, diarrhea or nausea Musculoskeletal Musculoskeletal: Denies arthralgias or myalgias Integumentary Denies rash Neurologic Neurologic: Reports weakness; Denies headache(s) or paresthesias Psychiatric Psychiatric: Denies anxiety Hematologic/Lymphatic Hematologic/Lymphatic: Denies anemia or easy bleeding EXAM Physical Exam Const Vital Signs: 01/30/23 10:29 01/30/23 11:50 Temperature 95.9 F L Temperature Source Temporal Pulse Rate 82 69 Respiratory Rate 14 Blood Pressure 166/110 H Blood Pressure Mean 128 Pulse Ox 100 Oxygen Delivery Method Room Air Positive well developed Constitutional Narrative: Thin General Appearance ED: well developed, NAD and pallor HEENT Reports dry mucous membranes Negative for trauma or tenderness Mouth ED: Yes dry mucous membranes Mouth: dry mucous membranes Eyes PERRL and EOMs intact bilaterally General Eye ED: Negative for pale conjunctiva or scleral icterus Neck supple and no JVD Chest Wall inspection of chest normal and palpation of chest normal Chest Narrative: No chest wall crepitus appreciated Resp normal respiratory effort and clear to auscultation bilaterally Cardio regular rate, regular rhythm and no murmurs GI normal to inspection, nondistended, normoactive bowel sounds and non-tender Inspection: Negative for abdominal distention Palpation: Negative for tender or guarding Extremity normal to inspection General Extremety ED: Negative for edema General Extremity: Negative for edema Neuro oriented x3 Neuro Narrative: Mild resting tremor Sensorium / Orientation: alert Motor Exam: general weakness Psych mental status grossly normal Mood & Affect: Negative for depressed or anxious Skin no rashes or lesions noted and no wounds General Skin Exam: pallor MDM MDM MDM Narrative Medical decision making narrative: Is evaluated for difficulty swallowing. Differential includes renal insufficiency, hyperkalemia, electrolyte imbalance, hyponatremia and esophageal stricture. Patient is found to have a worsening of her kidney function with creatinine of 2.21. That in conjunction with the patient not been able to take adequate p.o. I think she needs to be admitted as she cannot increase her fluid intake at home. Patient does have anemia which is improving. She does not have any sign ificant hyponatremia. Case is discussed with Dr. Verma, GI, who will evaluate the patient for either repeat ballooning of her esophagus or possibly a PEG tube if patient is agreeable. Patient hemodynamically stable at this time. Presentation I do not think is consistent with esophageal impaction I do not think she requires emergent endoscopy today or glucagon. Lab Data Labs: Laboratory Results - last 24 hr 01/30/23 01/30/23 11:24 11:24 WBC 5.3 RBC 3.88 L Hgb 10.8 L Hct 35.8 L MCV 92.3 MCH 27.8 MCHC 30.2 L RDW Std Deviation 49.7 H RDW Coeff of Lee 14.8 H Plt Count 315 MPV 8.2 Immature Gran % (Auto) 0.200 Neut % (Auto) 65.1 Lymph % (Auto) 26.2 [place] % (Auto) 6.2 Eos % (Auto) 1.9 Baso % (Auto) 0.4 Absolute Neuts (auto) 3.5 Absolute Lymphs (auto) 1.39 Nucleated RBC % 0 Sodium 137 Potassium 3.9 Chloride 101 Carbon Dioxide 30.0 Anion Gap 6 BUN 36 H Creatinine 2.21 H Estim Creat Clear Calc 19.83 Est GFR (MDRD) Af Amer 28 L Est GFR (MDRD) Non-Af 23 L BUN/Creatinine Ratio 16.3 Glucose 84 Calcium 11.7 H Total Bilirubin 0.40 AST 18 ALT 20 Alkaline Phosphatase 77 Total Protein 7.7 Albumin 3.8 Globulin 3.9 Albumin/Globulin Ratio 1.0 Lipase 104 Discharge Plan Triage Chief Complaint: Foreign Body ED Provider: Yudelka Duran Dx/Rx/DC Orders Clinical Impression: Acute renal insufficiency, Inability to swallow, Esophageal stricture Prescriptions: No Action sucralfate 100 mg/mL suspension 10 ml PO QACHS Qty: 1000 5RF guaifenesin 100 mg/5 mL liquid 200 mg PO Q4H PRN (Reason: congestion) Qty: 1000 1RF methimazole 5 MG tablet 5 mg PO SUMOWEFR cinacalcet 30 MG tablet 30 mg PO SUMOWEFR memantine 10 MG tablet 10 mg PO DAILY cholecalciferol (vitamin D3) 2,000 UNIT capsule 2,000 unit PO DAILY oxybutynin chloride 15 mg tablet extended release 24hr 15 mg PO DAILY Label Comments: take 1 tablet by mouth every morning losartan 25 mg tablet 25 mg PO DAILY Label Comments: take 1 tablet by mouth once daily polyethylene glycol 3350 [Miralax] 17 gram/dose Powder 17 g PO DAILY Prolia 60 mg/mL Syringe 60 mg SUBCUT .Q6MO lamotrigine 100 mg tablet 200 mg PO DAILY Label Comments: take 1 tablet by mouth once daily for 2 WEEKS then INCREASE to 1 ... (REFER TO PRESCRIPTION NOTES). lorazepam 2 mg tablet 2 mg PO 4XD PRN (Reason: AGITATION) Qty: 1 0RF Label Comments: take 1 tablet by mouth four times a day if needed for anxiety ferrous sulfate 325 MG tablet 325 mg PO QODAY Qty: 30 0RF pantoprazole 40 mg tablet,delayed release (DR/EC) 40 mg PO BID Label Comments: take 1 tablet by mouth twice a day Primary Care Provider: Jay Kincaid NP Referrals: Jay Kincaid NP, MANAGER [employer] [Primary Care Provider] - Disposition Disposition: Acute Care Hospital [facility]
[2023-01-30 11:41] LABS: Absolute Lymphocyte Count 1.39 X10^3/uL (0.83-4.51); Absolute Neutrophil Count 3.5 X10^3/uL (2.0-7.7); Basophil# 0.02 X10^3/uL; Basophil% 0.4 % (0-1); Eosinophils% 1.9 % (0-5); Hematocrit 35.8 % (37-47); Hemoglobin 10.8 g/dL (12.0-15.0); Lymphocyte # 1.39 X10^3/ul (0.83-4.51); Lymphocyte % 26.2 % (19-41); Mean Corp Hgb Conc 30.2 g/dL (32-36); Mean Corpuscular Hgb 27.8 pg (27.0-32.0); Mean Corpuscular Volume 92.3 fL (81-99); Mean Platelet Vol. 8.2 fl (6.2-12.0); Monocyte# 0.33 X10^3/uL; Monocyte% 6.2 % (0-10); NRBC Flagged by Analyzer 0 % (0-5); Neutrophil # 3.46 X10^3/uL (2.7-7.7); Neutrophil % 65.1 % (47-70); Platelet Count 315 K/mm3 (150-450); RBC Distribution Width CV 14.8 % (11.6-14.6); RBC Distribution Width SD 49.7 fl (35.1-43.9); Red Blood Count 3.88 M/mm3 (4.2-5.4); White Blood Count 5.3 K/mm3 (4.4-11.0)
[2023-01-30 11:50] VITALS: PULSE 69
[2023-01-30 11:59] LABS: AST(SGOT) 18 U/L (15-37); Alanine Aminotransfer ALT/SGPT 20 U/L (13-56); Albumin, Serum 3.8 g/dL (3.2-5.0); Alkaline Phosphatase 77 U/L (45-117); Anion Gap 6 (5-15); BUN 36 mg/dL (7-18); BUN/Creat Ratio 16.3 RATIO (10-20); Calcium,Total 11.7 mg/dL (8.5-10.1); Chloride 101 mmol/L (98-107); Creatinine, Serum 2.21 mg/dL (0.55-1.02); EST Glomerular Filtration Rate 23 mL/min (>60); Est Glom Filt Rate - Afr Amer 28 mL/min (>60); Estimated Creatinine Clearance 19.83 ml/min; Globulin 3.9 g/dL (2.2-4.2); Glucose 84 mg/dL (74-106); Lipase 104 U/L (73-393); Potassium 3.9 mmol/L (3.5-5.1); Protein, Total 7.7 g/dL (6.4-8.2); Sodium Level 137 mmol/L (136-145)
--- NOTE | 2023-01-30 12:44 | PCM.HP.STD ---
[facility] - General General Date of Admission: 01/30/23 Date of Service: 01/30/23 Chief Complaint: Difficulty swallowing HPI Narrative SIMONA HERNANDEZ, is a 72 F with past medical history significant for recurrent admission for dysphagia dysphagia secondary to recurrent esophageal stricture in the lower one third of the esophagus. Patient was seen and discharged on 01/19/2023 with similar presentation. She apparently underwent dilatation with an 18 mm balloon and treated with APC. Presented to the emergency department with difficulty swallowing saliva as well as food. Patient was found to be in acute kidney injury. His barrel bander Dr. Verma was notified and recommended for patient to be admitted for further management [facility] Medical History CITLALY (acute kidney injury) Anemia Anxiety Back pain Bipolar disorder Bipolar disorder with moderate depression Bladder disease Delirium due to multiple etiologies Diabetes insipidus Dietary restriction Difficulty chewing Erosive esophagitis Falls Former smoker Gastric reflux Gastroparesis Generalized weakness Gram-negative bacteremia History of edema History of herpes zoster History of hiatal hernia Hypercalcemia Hypernatremia Hypertension Post-menopausal Pulmonary emboli Secondary hyperparathyroidism of renal origin Severe malnutrition Severe malnutrition Stenosis of esophagus Tardive dyskinesia Thyroid disease Unsteady gait UTI (urinary tract infection) Wears glasses Home Medications cinacalcet 30 mg tablet 30 mg PO SUMOWEFR THYROID 10/04/20 [History Last Taken 01/14/23] methimazole 5 mg tablet 5 mg PO SUMOWEFR . 10/04/20 [History Last Taken 01/14/23] memantine 10 mg tablet 10 mg PO DAILY . 01/03/21 [History Last Taken 01/14/23] cholecalciferol (vitamin D3) 50 mcg (2,000 unit) capsule 2,000 unit PO DAILY SUPPLEMENT 01/15/21 [History Last Taken 01/13/23] denosumab 60 mg/mL subcutaneous syringe (Prolia) 60 mg subcut .Q6MO . 09/05/22 [History Last Taken 08/27/22] losartan 25 mg tablet 25 mg PO DAILY . 09/05/22 [History Last Taken 01/14/23] oxybutynin chloride 15 mg tablet,extended release 24 hr 15 mg PO DAILY . 09/05/22 [History Last Taken 01/14/23] polyethylene glycol 3350 17 gram/dose oral powder (Miralax) 17 g PO DAILY LAXATIVE 09/05/22 [History Last Taken 09/05/22] lamotrigine 100 mg tablet 200 mg PO DAILY . 12/15/22 [History Last Taken 01/14/23] ferrous sulfate 325 mg (65 mg iron) tablet 325 mg PO QODAY SUPPLEMENT #30 tabs 12/24/22 [Rx Last Taken 01/13/23] lorazepam 2 mg tablet 2 mg PO 4XD PRN AGITATION #1 TAB 12/24/22 [Rx Last Taken 01/13/23] pantoprazole 40 mg tablet,delayed release 40 mg PO BID stomach 01/14/23 [History Last Taken 01/13/23] guaifenesin 100 mg/5 mL oral liquid 200 mg (10 mL) PO Q4H PRN congestion #1,000 mL 01/21/23 [Rx Last Taken Unknown] sucralfate 100 mg/mL oral suspension 10 ml PO QACHS #1,000 mL 01/21/23 [Rx Last Taken Unknown] Allergy/AdvReac Type Severity Reaction Status Date / Time No Known Allergies Allergy Verified 01/30/23 10:29 Family History no significant family his no significant family history Surgical History History of esophagogastroduodenoscopy (EGD) Hx of esophagogastroduodenoscopy Social History household members: spouse housing: house Smoking Status: Former smoker alcohol intake: never substance use type: does not use additional social history: Ambulates at baseline without assistive device ROS ROS Narrative GENERAL: denies fever, chills, night sweats, weight loss, anorexia HEENT: denies headache, sinus congestion, or drainage, dysphagia RESPIRATORY: denies cough, sputum production, shortness of breath, dyspnea on exertion CARDIAC: denies chest pain, palpitations, orthopnea, PND GASTROINTESTINAL: Difficulty swallowing GENITOURINARY: denies dysuria, urgency, frequency, heamaturia EXTREMITY: denies swelling MUSCULOSKELETAL: denies current joint pain or tenderness NEUROLOGIC: denies focal numbness, weakness, tingling HEMATOLOGIC: denies easy bruising and/or hemorrhage INTEGUMENT: denies rashes PSYCHIATRIC: denies suicidal or homicidal ideation Vital Signs Vital Signs Vital Signs: 01/30/23 10:29 01/30/23 11:50 Temperature 95.9 F L Temperature Source Temporal Pulse Rate 82 69 Respiratory Rate 14 Blood Pressure 166/110 H Blood Pressure Mean 128 Pulse Ox 100 Oxygen Delivery Method Room Air Weight Weight: 55.4 kg Body Mass Index (BMI) 20.3 Physical Exam Narrative GENERAL: cooperative HEENT: Atraumatic; normocephalic EYES; Anicteric, Normal Conjunctiva NECK; supple, normal thyroid, RESPIRATORY: Diminished to auscultation CARDIOVASCULAR: Regular S1 S2, GI: soft, normoactive bowel sounds, : No Renal angle tenderness; EXTREMITIES: No edema, no clubbing, MUSCULOSKELETAL: no muscle wasting NEURO: Awake; no lateralizing signs. SKIN: No Rash PSYCH; Flat affect Results Lab / Micro Data Result Diagrams: 01/30/23 11:24 01/30/23 11:24 Labs: Laboratory Results - last 24 hr 01/30/23 11:24: WBC 5.3, RBC 3.88 L, Hgb 10.8 L, Hct 35.8 L, MCV 92.3, MCH 27.8, MCHC 30.2 L, RDW Std Deviation 49.7 H, RDW Coeff of Ele 14.8 H, Plt Count 315, MPV 8.2, Immature Gran % (Auto) 0.200, Neut % (Auto) 65.1, Lymph % (Auto) 26.2, [place] % (Auto) 6.2, Eos % (Auto) 1.9, Baso % (Auto) 0.4, Absolute Neuts (auto) 3.5, Absolute Lymphs (auto) 1.39, Nucleated RBC % 0 01/30/23 11:24: Sodium 137, Potassium 3.9, Chloride 101, Carbon Dioxide 30.0, Anion Gap 6, BUN 36 H, Creatinine 2.21 H, Estim Creat Clear Calc 19.83, Est GFR (MDRD) Af Amer 28 L, Est GFR (MDRD) Non-Af 23 L, BUN/Creatinine Ratio 16.3, Glucose 84, Calcium 11.7 H, Total Bilirubin 0.40, AST 18, ALT 20, Alkaline Phosphatase 77, Total Protein 7.7, Albumin 3.8, Globulin 3.9, Albumin/Globulin Ratio 1.0, Lipase 104 Assessment & Plan Assessment/Plan (1) Esophageal stricture: PLAN: Plan SIMONA SCHERERGS, is a 72 F with past medical history significant for recurrent admission for dysphagia dysphagia secondary to recurrent esophageal stricture in the lower one third of the esophagus. Patient was seen and discharged on 01/19/2023 with similar presentation. She apparently underwent dilatation with an 18 mm balloon and treated with APC. Presented to the emergency department with difficulty swallowing saliva as well as food. Patient was found to be in acute kidney injury. His barrel bander Dr. Verma was notified and recommended for patient to be admitted for further management 1.? Recurrent dysphagia ? Stricture involving the lower third of the esophagus. Patient has been admitted to regular nursing floor. Patient started on PPI consultation placed to Dr. Verma for possible esophageal dilatation versus PEG tube 2. Recurrent history of erosive esophagitis ? Patient is on PPI 3. CITLALY -superimposed on chronic kidney disease stage III kidney function started on IV hydration response to therapy being monitored with BMP consult placed to patient's gas golf cart repairer Dr. Abrams 4.? Bipolar disorder ? Discontinue patient psychotropic medications 5.? Primary hyperparathyroidism ? Patient is on Cinacalcet did continue 6. Hyperthyroidism -on methimazole 7. Osteoporosis ? Patient is on Prolia every 6 monthly 8. Essential hypertension ? Was previously on losartan not on her medication list 9.? DVT prophylaxis ? Bilateral SCDs avoided the use of chemoprophylaxis in view of her recurrent erosive esophagitis Time spent in the patient's overall evaluation,decision-making process, review of diagnostic data, adjustment of management, discussion with other providers, nursing nursing and ancillary staff involved in patient's care documentation, 77 minutes Advance planning; did discuss with the patient and family regarding advanced directives as well as CODE STATUS. Did explain the various scenarios involved ( FULL CODE, DNR CCA, DNR CCA with no intubation, and DNR CC and what each meant) patient and elected to remain full code with CPR and intubation if needed. Order was placed. Time spent on discussion 18 minutes. Charges/Coding Visit Charges Inpatient E&M: 12516 Init Hosp L3 Procedures Hospitalists Procedures: 17797 Advncd Care Plan 30 Min
[2023-01-30 13:05] VITALS: BP 167/89; PULSE 67; RESP 18; TEMP 36.8; O2SAT 99
[2023-01-30 14:59] VITALS: BP 159/96; PULSE 68; RESP 16; TEMP 36.8; O2SAT 100
[2023-01-30 15:00] VITALS: BMI 20.3
[2023-01-30] MEDS: KCL 20MEQ in D5.45NS 20 MEQ/1,000 ML IV.SOLN. 150 MEQ IV ×2 (15:56→22:58)
[2023-01-30] MEDS: Sucralfate 1 GM Tablet PO (16:39)
--- NOTE | 2023-01-30 17:19 | CON.PCM.GI_ITS ---
HPI Consult Data Date of Consult: 01/30/23 HPI Narrative Reason for Consultation: esophageal stricture HPI Narrative: SIMONA HERNANDEZ, is a 72 F who presents to the ED with severe dehydration and progressive esophageal dysphagia.? She has a history of severe esophagitis, esophageal strictures. She was hospitalized 09/05/22-09/10/22 for aspiration pneumonia.? On 09/08/2022 EGD which revealed LA grade D esophagitis with bleeding which he treated with successfully using bipolar probe.? She has a small hiatal hernia.? He recommended pantoprazole 40 mg twice daily.? He had a gastric emptying study which is abnormal, she has delayed emptying at 73 minutes.? She is accompanied by her , he reports most of her history.? She is having frequent vomiting which occurs after regurgitating her food. Vomited in the middle of last night. Eating soft foods. When she eats then food regurgitates and then she vomits. Taking pills in apple sauce which helps her to be able to swallow them. Some bloating. Bowels are normal. No melena or hemat ochezia. She had a modified barium swallow study which revealed esophageal retention of fluid in the lower esophagus with retrograde flow remaining below the UES, but this retention was cleared with thin liquid wash.? Barium tablet remains trapped in the esophagus. 09/08/22 EGD: LA Grade D reflux esophagitis, small hiatal hernia, esophageal candidiasis 09/09/22 gastric emptying study: delayed emptying 73 minutes 01/15/23 with 18 mm balloon and treatment with APC to hopefully keep it open.?He recommended Carafate slurry in order to keep the esophagus open is much as possible. She had just had dilation done in December. Amount of pleghm increases, comes up esophagus, that is first sign that stenosis is recurring. On pantoprazole [address] Verma recommended ENT because of the significant phlegm, but pt and her report ENT appt didn't yield any solutions. Someone recommended mucinex but the pills are too large for her to swallow. I recommended neurology consult because of significant esophageal dysmotility disorder and the fact that her esophagus does not contract. 09/2022 gastric emptying time 73 minutes (normal 12-56), gastroparesis likely due to medications 01/15/23 EGD Impression: ?- Benign-appearing esophageal stenosis. Dilated. ? - Medium-sized hiatal hernia. ? - No gross lesions in the duodenal bulb. ? - No specimens collected. [facility] Medical History CITLALY (acute kidney injury) Anemia Anxiety Back pain Bipolar disorder Bipolar disorder with moderate depression Bladder disease Delirium due to multiple etiologies Diabetes insipidus Dietary restriction Difficulty chewing Erosive esophagitis Falls Former smoker Gastric reflux Gastroparesis Generalized weakness Gram-negative bacteremia History of edema History of herpes zoster History of hiatal hernia Hypercalcemia Hypernatremia Hypertension Post-menopausal Pulmonary emboli Secondary hyperparathyroidism of renal origin Severe malnutrition Severe malnutrition Stenosis of esophagus Tardive dyskinesia Thyroid disease Unsteady gait UTI (urinary tract infection) Wears glasses Home Medications cinacalcet 30 mg tablet 30 mg PO SUMOWEFR THYROID 10/04/20 [History Last Taken 01/14/23] methimazole 5 mg tablet 5 mg PO SUMOWEFR . 10/04/20 [History Last Taken 01/14/23] memantine 10 mg tablet 10 mg PO DAILY . 01/03/21 [History Last Taken 01/14/23] cholecalciferol (vitamin D3) 50 mcg (2,000 unit) capsule 2,000 unit PO DAILY SUPPLEMENT 01/15/21 [History Last Taken 01/13/23] denosumab 60 mg/mL subcutaneous syringe (Prolia) 60 mg subcut .Q6MO . 09/05/22 [History Last Taken 08/27/22] losartan 25 mg tablet 25 mg PO DAILY . 09/05/22 [History Last Taken 01/14/23] oxybutynin chloride 15 mg tablet,extended release 24 hr 15 mg PO DAILY . 09/05/22 [History Last Taken 01/14/23] polyethylene glycol 3350 17 gram/dose oral powder (Miralax) 17 g PO DAILY LAXATI VE 09/05/22 [History Last Taken 09/05/22] lamotrigine 100 mg tablet 200 mg PO DAILY . 12/15/22 [History Last Taken 01/14/23] ferrous sulfate 325 mg (65 mg iron) tablet 325 mg PO QODAY SUPPLEMENT #30 tabs 12/24/22 [Rx Last Taken 01/13/23] lorazepam 2 mg tablet 2 mg PO 4XD PRN AGITATION #1 TAB 12/24/22 [Rx Last Taken 01/13/23] pantoprazole 40 mg tablet,delayed release 40 mg PO BID stomach 01/14/23 [History Last Taken 01/13/23] guaifenesin 100 mg/5 mL oral liquid 200 mg (10 mL) PO Q4H PRN congestion #1,000 mL 01/21/23 [Rx Last Taken Unknown] sucralfate 100 mg/mL oral suspension 10 ml PO QACHS Check with primary doctor 01/30/23 [History Last Taken Unknown] Allergy/AdvReac Type Severity Reaction Status Date / Time No Known Allergies Allergy Verified 01/30/23 10:29 Family History no significant family his Surgical History History of esophagogastroduodenoscopy (EGD) Hx of esophagogastroduodenoscopy Social History household members: spouse housing: house Smoking Status: Former smoker alcohol intake: never substance use type: does not use additional social history: Ambulates at baseline without assistive device ROS ROS Narrative GENERAL: denies fever, chills, night sweats, weight loss, anorexia HEENT: denies headache, sinus congestion, or drainage, dysphagia RESPIRATORY: denies cough, sputum production, shortness of breath, dyspnea on exertion CARDIAC: denies chest pain, palpitations, orthopnea, PND GASTROINTESTINAL: Difficulty swallowing GENITOURINARY: denies dysuria, urgency, frequency, heamaturia EXTREMITY: denies swelling MUSCULOSKELETAL: denies current joint pain or tenderness NEUROLOGIC: denies focal numbness, weakness, tingling HEMATOLOGIC: denies easy bruising and/or hemorrhage INTEGUMENT: denies rashes PSYCHIATRIC: denies suicidal or homicidal ideation Physical Exam Narrative GENERAL: cooperative HEENT: Atraumatic; normocephalic EYES; Anicteric, Normal Conjunctiva NECK; supple, normal thyroid, RESPIRATORY: Diminished to auscultation CARDIOVASCULAR: Regular S1 S2, GI: soft, normoactive bowel sounds, : No Renal angle tenderness; EXTREMITIES: No edema, no clubbing, MUSCULOSKELETAL: no muscle wasting NEURO: Awake; no lateralizing signs. SKIN: No Rash PSYCH; Flat affect Medical Records Data Medical Nutrition Assessment Dietitian: Malnutrition Criteria Met Start: 01/30/23 15:44 Freq: Status: Active Protocol: Document 01/30/23 15:44 AG (Rec: 01/30/23 15:44 AG [id number]) Nutrition Malnutrition Evidence of Malnutrition Exists Yes Malnutrition (severe): Chronic Evidenced By Suboptimal Energy Intake ( Severe),Weight Loss (Severe) Clinical Problem Chronic Disease or Condition Related Malnutrition Etiology chronic, severe malnutrition related to inadequate oral intake d/t swallowing difficulty Signs/Symptoms as evidenced by unintentional 26#/18% wt loss x 5 months; estimated PO intake meeting < 75% of estimated energy needs > 5 months Status Active Problem Recommendation Dietitian Recommendations/Changes Will follow re: plan of care regarding possible PEG placement and make further recommendations as indicated. Regular diet if able to resume PO intake. Lab / Micro Data Result Diagrams: 01/30/23 11:24 01/30/23 11:24 Labs: Laboratory Results - last 24 hr 01/30/23 11:24: WBC 5.3, RBC 3.88 L, Hgb 10.8 L, Hct 35.8 L, MCV 92.3, MCH 27.8, MCHC 30.2 L, RDW Std Deviation 49.7 H, RDW Coeff of [place] 14.8 H, Plt Count 315, MPV 8.2, Immature Gran % (Auto) 0.200, Neut % (Auto) 65.1, Lymph % (Auto) 26.2, [place] % (Auto) 6.2, Eos % (Auto) 1.9, Baso % (Auto) 0.4, Absolute Neuts (auto) 3.5, Absolute Lymphs (auto) 1.39, Nucleated RBC % 0 01/30/23 11:24: Sodium 137, Potassium 3.9, Chloride 101, Carbon Dioxide 30.0, Anion Gap 6, BUN 36 H, Creatinine 2.21 H, Estim Creat Clear Calc 19.83, Est GFR (MDRD) Af Amer 28 L, Est GFR (MDRD) Non-Af 23 L, BUN/Creatinine Ratio 16.3, Glucose 84, Calcium 11.7 H, Total Bilirubin 0.40, AST 18, ALT 20, Alkaline Phosphatase 77, Total Protein 7.7, Albumin 3.8, Globulin 3.9, Albumin/Globulin Ratio 1.0, Lipase 104 Assessment & Plan Assessment/Plan (1) Dysphagia: PLAN: Dysphagia is likely contributing to progressive malnutrition. I had a long talk with her and explained to her that a lot of the mucus that she gets in the back of her throat pain cannot clear secondary to this esophageal stricture. I think she has uncontrolled gastroesophageal reflux disease due to the fact that she has gastroparesis. I discussed with him possibly putting a feeding through as an intermediary until we can figure out how to keep her esophagus open. With frequent dilation with an esophageal stent. Charges/Coding Visit Charges Inpatient E&M: 21257 Init Hosp L3
[2023-01-30 20:18] VITALS: BP 137/83; PULSE 70; RESP 17; TEMP 37.2; O2SAT 99
[2023-01-30] MEDS: LORazepam 2 MG/ML Syringe 0.5 MG IV (22:15)
[2023-01-30 23:33] VITALS: BP 134/84; PULSE 65; RESP 16; TEMP 36.9; O2SAT 97; BMI 20.3
[2023-01-31] VITALS (10 sets, daily range): BP systolic 100–169; BP diastolic 66–101; PULSE 65–81; RESP 16–18; TEMP 36.3–37.2; O2SAT 95–100
[2023-01-31] MEDS: KCL 20MEQ in D5.45NS 20 MEQ/1,000 ML IV.SOLN. 150 MEQ IV (05:35)
--- NOTE | 2023-01-31 05:55 | EKG12_ITS ---
Test Reason : PRE OP Blood Pressure : / mmHG Vent. Rate : 070 BPM Atrial Rate : 070 BPM P-R Int : 162 ms QRS Dur : 098 ms QT Int : 366 ms P-R-T Axes : 054 046 059 degrees QTc Int : 395 ms Normal sinus rhythm Normal ECG When compared with ECG of 15-JAN-2023 04:44, No significant change was found Confirmed by MODE ORELLANA, MARCELLUS ([id number]), features editor BRIANA CHUNG ([id number]) on 02/03/2023 9:12:10 AM Referred By: ALIYA Confirmed By:MARCELLUS COELLO MD
[2023-01-31 06:36] LABS: Absolute Lymphocyte Count 1.64 X10^3/uL (0.83-4.51); Absolute Neutrophil Count 2.5 X10^3/uL (2.0-7.7); Basophil# 0.03 X10^3/uL; Basophil% 0.6 % (0-1); Eosinophil# 0.23 X10^3/uL; Eosinophils% 4.8 % (0-5); Hemoglobin 8.6 g/dL (12.0-15.0); Lymphocyte # 1.64 X10^3/ul (0.83-4.51); Mean Corp Hgb Conc 30.7 g/dL (32-36); Mean Corpuscular Hgb 28.6 pg (27.0-32.0); Monocyte# 0.41 X10^3/uL; Monocyte% 8.5 % (0-10); NRBC Flagged by Analyzer 0 % (0-5); Neutrophil # 2.51 X10^3/uL (2.7-7.7); Neutrophil % 51.9 % (47-70); Platelet Count 256 K/mm3 (150-450); RBC Distribution Width CV 14.8 % (11.6-14.6); RBC Distribution Width SD 50.2 fl (35.1-43.9); Red Blood Count 3.01 M/mm3 (4.2-5.4); White Blood Count 4.8 K/mm3 (4.4-11.0)
[2023-01-31 06:57] LABS: Prothrombin Time (Protime)PT. 13.2 SECONDS (11.7-14.9)
[2023-01-31 06:58] LABS: Partial Thromboplast Time 26.9 Seconds (24.1-36.2)
[2023-01-31 07:09] LABS: Anion Gap 3 (5-15); BUN 27 mg/dL (7-18); BUN/Creat Ratio 13.6 RATIO (10-20); Calcium,Total 10.1 mg/dL (8.5-10.1); Chloride 114 mmol/L (98-107); Creatinine, Serum 1.99 mg/dL (0.55-1.02); EST Glomerular Filtration Rate 26 mL/min (>60); Est Glom Filt Rate - Afr Amer 32 mL/min (>60); Estimated Creatinine Clearance 22.02 ml/min; Glucose 108 mg/dL (74-106); Potassium 4.1 mmol/L (3.5-5.1); Sodium Level 142 mmol/L (136-145)
[2023-01-31 07:21] LABS: Thyroid Stim Hormone (TSH) 0.61 uIU/mL (0.358-3.74)
--- NOTE | 2023-01-31 07:59 | NURSING ---
pt ready for or. report called to endo nurse. chart and botox for injection with pt. pt up to br to void. prechecklist completed. consent on chart but not signed and waiting to see dr. smyth first. at bedside with many questions.
[2023-01-31] MEDS: Lactated Ringers 1,000 ML 15 ML IV (08:08)
[2023-01-31] MEDS: Botulinum Toxin A 100 Units Vial IJ (08:45)
[2023-01-31] MEDS: Triamcinolone Acetonide 40 MG/ML Vial (08:45)
--- NOTE | 2023-01-31 09:04 | OP.CCLET_ITS ---
01/31/2023 Jay Kincaid Re : Upper GI endoscopy procedure for Fior Escamilla Dear Codi This procedure was performed on Tuesday, January 31, 2023. My impressions and recommendations are as follows: Impressions : - Benign-appearing esophageal stenosis. Dilated. Injected with botulinum toxin. Injected. Treated with argon plasma coagulation (APC). - Medium-sized hiatal hernia. - No gross lesions in the first portion of the duodenum. - No specimens collected. Recommendations : - [facility]. - Full liquid diet today. - Use sucralfate tablets 1 gram PO QID. - Use Protonix (pantoprazole) 40 mg PO BID. - Continue present medications. My findings are described in the full procedure note, which is enclosed. If I can be of further assistance, please feel free to contact me at . Sincerely, Francis Friend, 01/31/2023 9:03:25 AM This report has been signed electronically.
--- NOTE | 2023-01-31 09:04 | OP.EGD_ITS ---
Patient Name: Fior Escamilla Procedure Date: 01/31/2023 7:37 AM Date of : 1950 Age: 72 Procedure: Upper GI endoscopy Indications: Dysphagia Providers: Francis Verma DO Medicines: Monitored Anesthesia Care Patient Profile: This is a 72 year old female. Refer to note in patient chart for documentation of history and physical. Patient has symptoms of acute dysphagia. Complications: No immediate complications. Procedure: Pre-Anesthesia Assessment: - Prior to the procedure, a History and Physical was performed, and patient medications and allergies were reviewed. The patient is competent. The risks and benefits of the procedure and the sedation options and risks were discussed with the patient. All questions were answered and informed consent was obtained. Patient identification and proposed procedure were verified by the physician. Mental Status Examination: alert and oriented. Airway Examination: normal oropharyngeal airway and neck mobility. Respiratory Examination: clear to auscultation. CV Examination: normal. Prophylactic Antibiotics: The patient does not require prophylactic antibiotics. Prior Anticoagulants: The patient has taken no previous anticoagulant or antiplatelet agents. After reviewing the risks and benefits, the patient was deemed in satisfactory condition to undergo the procedure. The anesthesia plan was to use monitored anesthesia care (MAC). Immediately prior to administration of medications, the patient was re-assessed for adequacy to receive sedatives. The heart rate, respiratory rate, oxygen saturations, blood pressure, adequacy of pulmonary ventilation, and response to care were monitored throughout the procedure. The physical status of the patient was re-assessed after the procedure. After obtaining informed consent, the endoscope was passed under direct vision. Throughout the procedure, the patient's blood pressure, pulse, and oxygen saturations were monitored continuously. The Endoscope was introduced through the mouth, and advanced to the second part of duodenum. The upper GI endoscopy was accomplished without difficulty. The patient tolerated the procedure well. Scope In: 8:25:05 AM Scope Out: 8:50:49 AM Total Procedure Duration Time 0 hours 25 minutes 44 seconds Findings: One benign-appearing, intrinsic stenosis was found 30 to 34 cm from the incisors. This stenosis was severe and measured 1 mm (inner diameter) x 5 cm (in length). The stenosis was traversed after dilation. A TTS dilator was passed through the scope. Dilation with a 15-16.5-18 mm balloon dilator was performed to 15 mm. The dilation site was examined and showed complete resolution of luminal narrowing. Area was successfully injected with 100 units botulinum toxin. Area was successfully injected with 5 mL of triamcinolone (40 mg/mL) for drug delivery. Coagulation for hemostasis using argon plasma at 0.8 liters/minute and 20 bahena was successful. Estimated blood loss was minimal. A medium-sized hiatal hernia was present. No gross lesions were noted in the first portion of the duodenum. Impression: - Benign-appearing esophageal stenosis. Dilated. Injected with botulinum toxin. Injected. Treated with argon plasma coagulation (APC). - Medium-sized hiatal hernia. - No gross lesions in the first portion of the duodenum. - No specimens collected. Recommendation: - [facility]. - Full liquid diet today. - Use sucralfate tablets 1 gram PO QID. - Use Protonix (pantoprazole) 40 mg PO BID. - Continue present medications. Procedure Code(s): --- Professional --- 32689, Esophagogastroduodenoscopy, flexible, transoral; with control of bleeding, any method 03551, Esophagogastroduodenoscopy, flexible, transoral; with transendoscopic balloon dilation of esophagus (less than 30 mm diameter) 49381, 59,51, Esophagogastroduodenoscopy, flexible, transoral; with directed submucosal injection(s), any substance CPT copyright 2017 [employer]. All rights reserved. The codes documented in this report are preliminary and upon icd 9 coder review may be revised to meet current compliance requirements. Francis Verma DO 01/31/2023 9:03:25 AM This report has been signed electronically. Number of Addenda: 0 Note Initiated On: 01/31/2023 7:37 AM
--- NOTE | 2023-01-31 10:00 | CASEMGMT ---
ALEXEY MARTIN Readmission Review: Index: 01/16 thru 01/19/23 dx: Dysphagia d/t esophageal stenosis/gastroparesis. Readmission: 01/30/23 dx: recurrent dysphagia Pt with recurrent dysphagia admitted with the above noted diagnoses on the above noted dates. Pt discharged home with the support of her spouse and [facility] SN, PT/OT services. Face to face with pt and pt's spouse at bedside. Pt states she has continued to receive [facility] services including SN, PT/OT but pt's spouse states they were getting close to stopping services due to insurance. Pt and spouse request for [facility] services to be resumed at discharge stating they have benefited from these services and pt has been noted to be getting stronger with the therapy. Pt's spouse states pt has remained weak but both state pt has been able to ambulate without a device and with minimal assistance. KAREN order entered and [facility] notified via VM familia White of pt's admission and request for continued services. Pt and spouse state pt has been able to attend appointments without difficulty; however they have not been able to get in to see Dr. Tolbert. State they have an appointment on 05/05/23 and are near the top of the cancellation wait list. Pt had been taking her medications until she was unable to swallow. Pt and spouse deny any additional DC needs at this time. Will follow-up on Thursday for confirmation of acceptance from [facility]. Salvador Santillan RN CM
[2023-01-31] MEDS: lamoTRIgine 100 MG Tablet 200 MG PO (11:25)
[2023-01-31] MEDS: Tolterodine Tartrate 4 MG CAP.SA PO (11:25)
[2023-01-31] MEDS: Memantine Hydrochloride 10 MG Tablet PO (11:25)
[2023-01-31] MEDS: Losartan Potassium 25 MG Tablet PO (11:27)
[2023-01-31] MEDS: LORazepam 1 MG Tablet 2 MG PO ×2 (11:30→22:23)
[2023-01-31] MEDS: Sucralfate 1 GM Tablet PO ×2 (11:31→15:52)
--- NOTE | 2023-01-31 14:31 | PCM.PN.HOSP ---
Reason for Visit Reason for Visit: Diagnoses Esophageal obstruction (01/30/23) Subjective Subjective Patient was seen and examined today, she underwent an EGD with dilation of her distal esophagus. I talked briefly with GI about her care plan, GI states that the patient does not want any surgical intervention and the family does not want it either. Patient will be treated with a PPI and Carafate. Patient's diet will be advanced today. Objective Data Objective Data Vital Signs: Vital Signs Temp Pulse Resp BP Pulse Ox O2 Del Method 98.6 F 73 16 159/92 H 96 Room Air 01/31/23 10:30 01/31/23 10:30 01/31/23 10:30 01/31/23 10:30 01/31/23 10:30 01/31/23 10:30 Oxygen Delivery Method Room Air Weight: 55.4 kg Body Mass Index (BMI) 20.3 Intake & Output: Intake and Output for Last 24 Hours 01/29/23 01/30/23 01/31/23 23:59 23:59 23:59 Intake Total 1610.0 / 1610.0 Balance 1610.0 / 1610.0 Medical Nutrition Assessment Dietitian: Malnutrition Criteria Met Start: 01/30/23 15:44 Freq: Status: Active Protocol: Document 01/31/23 11:48 RMA (Rec: 01/31/23 11:48 RMA [id number]) Nutrition Malnutrition Evidence of Malnutrition Exists Yes Malnutrition (severe): Chronic Evidenced By Suboptimal Energy Intake ( Severe),Weight Loss (Severe) Clinical Problem Chronic Disease or Condition Related Malnutrition Etiology chronic, severe malnutrition related to inadequate oral intake d/t swallowing difficulty Signs/Symptoms as evidenced by unintentional 26#/18% wt loss x 5 months; estimated PO intake meeting < 75% of estimated energy needs > 5 months Status Active Problem Recommendation Dietitian Recommendations/Changes Diet as tolerated to Regular ( soft & bite-sized food) once tolerance currently established with full liquids s/p EGD. Will add 120ml ensure plus high protein 4 times per day w / medpass as tolerated. ONS as per pt preference once PO tolerance established. Lab / Micro Data Result Diagrams: 01/31/23 06:20 01/31/23 06:20 Labs: Laboratory Results - last 24 hr 01/31/23 06:20: WBC 4.8, RBC 3.01 L, Hgb 8.6 L, Hct 28.0 L, MCV 93.0, MCH 28.6, MCHC 30.7 L, RDW Std Deviation 50.2 H, RDW Coeff of Lee 14.8 H, Plt Count 256, MPV 8.0, Immature Gran % (Auto) 0.200, Neut % (Auto) 51.9, Lymph % (Auto) 34.0, [place] % (Auto) 8.5, Eos % (Auto) 4.8, Baso % (Auto) 0.6, Absolute Neuts (auto) 2.5, Absolute Lymphs (auto) 1.64, Nucleated RBC % 0 01/31/23 06:20: Sodium 142, Potassium 4.1, Chloride 114 H, Carbon Dioxide 25.0, Anion Gap 3 L, BUN 27 H, Creatinine 1.99 H, Estim Creat Clear Calc 22.02, Est GFR (MDRD) Af Amer 32 L, Est GFR (MDRD) Non-Af 26 L, BUN/Creatinine Ratio 13.6, Glucose 108 H, Calcium 10.1 01/31/23 06:20: PT 13.2, INR 1.0, APTT 26.9 01/31/23 06:20: TSH 0.61 Physical Exam Const alert and no apparent distress Constitutional Narrative: Patient has a flat affect and appears much older than her stated age. HEENT head/scalp atraumatic and moist oral mucous membranes Eyes PERRL, EOMs intact bilaterally and conjunctivae normal Neck supple and no JVD Resp normal respiratory effort, no retractions, no use of accessory muscles and clear to auscultation bilaterally Cardio regular rate, regular rhythm, S1 normal heart sound and S2 normal heart sound GI normal to inspection, nondistended, normoactive bowel sounds and soft to palpation Extremity normal to inspection and no clubbing, cyanosis or edema Neuro CN's II-XII intact bilaterally and moves all extremities Sensorium / Orientation: oriented to person and oriented to place Psych Psych Narrative: Patient has a flat affect, she responds appropriately to simple questions Assessment & Plan Assessment/Plan (1) Esophageal stricture: PLAN: Plan 1. Esophageal stenosis-patient underwent an esophageal dilatation today with injection of botulinum toxin, she will remain on a PPI and Carafate #2 acute kidney injury-patient is on IV fluids at this time, BMP will be rechecked tomorrow #3 iron deficiency anemia-patient will be given IV Venofer #4 bipolar disorder-complicates care, medical course, recovery, and prognosis #5 chronic severe protein caloric malnutrition-as evidenced by unintentional 26 pound weight loss x5 months and estimated p.o. intake meeting less than 75% of estimated energy needs greater than 5 months-regular diet was recommended, patient and family refused PEG placement at this time #6 hypothyroidism-patient is on methimazole #7 iron deficiency anemia-patient is on iron supplementation, I will give her IV Venofer today, patient's hemoglobin was 8.6, I will repeat her CBC tomorrow Total clinical time spent by myself addressing the patient's medical issues, reviewing all of her data, and collaborating with patient's care team: 35 minutes Charges/Coding Visit Charges Inpatient E&M: 73425 Subs Hosp L2
[2023-01-31] MEDS: Ensure Plus High Protein 120 ML LIQUID PO ×2 (15:17→22:22)
[2023-01-31] MEDS: 0.9% Saline Lock 10 ML Syringe IV ×2 (17:53→22:21)
[2023-02-01] MEDS: 0.9% Saline Lock 10 ML Syringe IV ×2 (01:47→08:20)
[2023-02-01] MEDS: Ondansetron 4 MG/2 ML Vial IV (01:48)
[2023-02-01 02:10] VITALS: BP 148/84; PULSE 77; RESP 18; TEMP 36.6; O2SAT 94
[2023-02-01 06:06] LABS: Hematocrit 25.7 % (37-47); Hemoglobin 7.7 g/dL (12.0-15.0)
[2023-02-01] MEDS: Sucralfate 1 GM Tablet PO (06:51)
[2023-02-01 08:17] VITALS: BP 139/85; PULSE 70; RESP 18; TEMP 36.9; O2SAT 96
[2023-02-01] MEDS: LORazepam 1 MG Tablet 2 MG PO (08:23)
[2023-02-01] MEDS: Memantine Hydrochloride 10 MG Tablet PO (08:24)
[2023-02-01] MEDS: Tolterodine Tartrate 4 MG CAP.SA PO (08:24)
[2023-02-01] MEDS: Cinacalcet HCl 30 MG Tablet PO (08:24)
[2023-02-01] MEDS: lamoTRIgine 100 MG Tablet 200 MG PO (08:25)
[2023-02-01] MEDS: Methimazole 5 MG Tablet PO (08:25)
[2023-02-01] MEDS: Losartan Potassium 25 MG Tablet PO (08:25)
[2023-02-01] MEDS: Ensure Plus High Protein 120 ML LIQUID PO (08:26)
--- NOTE | 2023-02-01 09:08 | DCINST_ITS ---
Discharge Instructions Diet Discharge Diet: Soft diet Activity Discharge Activity: Return to Normal Activity Weight Bearing Status: Full weight bearing Follow Up Care Test Results: Test results from this visit will be discussed in further detail at your follow- up appointment, if applicable. Discharge Plan Admission Admit Date/Time: 01/30/23 12:45 Primary Reason for Your Visit: esophageal stricture Attending Provider: Edinson Rivers Primary Care Provider: Jay Kincaid NP Consulting Providers: Friend,Francis ; Augustus Gray Instructions Additional Instructions / Restrictions: increase Ferrous sulfate to 325 mg one twice a day Discharge Orders/Prescriptions Prescriptions: Continued guaifenesin 100 mg/5 mL liquid 200 mg PO Q4H PRN (Reason: congestion) Qty: 1000 1RF methimazole 5 MG tablet 5 mg PO SUMOWEFR cinacalcet 30 MG tablet 30 mg PO SUMOWEFR memantine 10 MG tablet 10 mg PO DAILY cholecalciferol (vitamin D3) 2,000 UNIT capsule 2,000 unit PO DAILY oxybutynin chloride 15 mg tablet extended release 24hr 15 mg PO DAILY Label Comments: take 1 tablet by mouth every morning losartan 25 mg tablet 25 mg PO DAILY Label Comments: take 1 tablet by mouth once daily polyethylene glycol 3350 [Miralax] 17 gram/dose Powder 17 g PO DAILY Prolia 60 mg/mL Syringe 60 mg SUBCUT .Q6MO lamotrigine 100 mg tablet 200 mg PO DAILY Label Comments: take 1 tablet by mouth once daily for 2 WEEKS then INCREASE to 1 ... (REFER TO PRESCRIPTION NOTES). lorazepam 2 mg tablet 2 mg PO 4XD PRN (Reason: AGITATION) Qty: 1 0RF Label Comments: take 1 tablet by mouth four times a day if needed for anxiety ferrous sulfate 325 MG tablet 325 mg PO QODAY Qty: 30 0RF pantoprazole 40 mg tablet,delayed release (DR/EC) 40 mg PO BID Label Comments: take 1 tablet by mouth twice a day sucralfate 100 mg/mL suspension 10 ml PO QACHS Referrals / Follow Up: Jay Kincaid FACILITY PRACTICE SPECIALIST, FACILITY PRACTICE SPECIALIST-C [Primary Care Provider] - Disposition Disposition (needs filled in before D/C Order can be placed): Home, Self Care
--- NOTE | 2023-02-01 09:14 | DS.PCM_ITS ---
Providers Date of Admission: 01/30/23 Date of Discharge: 02/01/23 Primary Care Physician: Jay Kincaid, INSTALLATION SUPERINTENDENT-C Consultations 01/30/23 14:59 Consult: Gastroenterology Routine Consulting Provider: Francis Verma Reason for Consult: esophageal stricture EMERGENT Consult: No MD Notified: Yes Date Notified: 01/30/23 Time Notified: 12:52 Method of Notification: via text Reason For Visit: ESOPHAGEAL STRICTURE Diagnosis Discharge Diagnosis (1) Esophageal stricture: Status: Acute Code(s): K22.2 - Esophageal obstruction Plan 1. Esophageal stenosis-patient underwent an esophageal dilatation today with injection of botulinum toxin, she will remain on a PPI and Carafate #2 acute kidney injury-patient is on IV fluids at this time, BMP will be rech ecked tomorrow #3 iron deficiency anemia-patient will be given IV Venofer #4 bipolar disorder-complicates care, medical course, recovery, and prognosis #5 chronic severe protein caloric malnutrition-as evidenced by unintentional 26 pound weight loss x5 months and estimated p.o. intake meeting less than 75% of estimated energy needs greater than 5 months-regular diet was recommended, patient and family refused PEG placement at this time #6 hypothyroidism-patient is on methimazole #7 iron deficiency anemia-patient is on iron supplementation, I will give her IV Venofer today, patient's hemoglobin was 8.6, I will repeat her CBC tomorrow Total clinical time spent by myself addressing the patient's medical issues, reviewing all of her data, and collaborating with patient's care team: 35 mi nutes Medications at Discharge Home Medications cinacalcet 30 mg tablet 30 mg PO SUMOWEFR THYROID 10/04/20 methimazole 5 mg tablet 5 mg PO SUMOWEFR . 10/04/20 memantine 10 mg tablet 10 mg PO DAILY . 01/03/21 cholecalciferol (vitamin D3) 50 mcg (2,000 unit) capsule 2,000 unit PO DAILY SUPPLEMENT 01/15/21 denosumab 60 mg/mL subcutaneous syringe (Prolia) 60 mg subcut .Q6MO . 09/05/22 losartan 25 mg tablet 25 mg PO DAILY . 09/05/22 oxybutynin chloride 15 mg tablet,extended release 24 hr 15 mg PO DAILY . 09/05/22 polyethylene glycol 3350 17 gram/dose oral powder (Miralax) 17 g PO DAILY LAXATIVE 09/05/22 lamotrigine 100 mg tablet 200 mg PO DAILY . 12/15/22 ferrous sulfate 325 mg (65 mg iron) tablet 325 mg PO QODAY SUPPLEMENT #30 tabs 12/24/22 lorazepam 2 mg tablet 2 mg PO 4XD PRN AGITATION #1 TAB 12/24/22 pantoprazole 40 mg tablet,delayed release 40 mg PO BID stomach 01/14/23 guaifenesin 100 mg/5 mL oral liquid 200 mg (10 mL) PO Q4H PRN congestion #1,000 mL 01/21/23 sucralfate 100 mg/mL oral suspension 10 ml PO QACHS Check with primary doctor 01/30/23 Hospital Course Operations None Procedures EGD (With distal esophageal dilatation) Summary of Care Provided Minutes Spent on Discharge: 39 Hospital Course: This 72-year-old white female was seen in the emergency room at [facility] with complaints of difficulty eating and drinking with poor oral intake. Patient has a history of esophageal strictures requiring dilatation and also nondiabetic gastroparesis. Patient stated she was unable to tolerate soft foods, her oral intake according to her had diminished considerably. Work-up in the emergency room revealed her creatinine and BUN to be elevated at 2.21 and 36 respectively, patient's white blood cell count was normal, hemoglobin was 10.8. Patient was admitted to [place] [address] for acute kidney injury and seen in consultation by gastroenterology who performed an EGD with esophageal dilatation. According to GI, patient and patient's family did not want to pursue a surgical correction for the patient's esophageal stenosis. Patient's creatinine improved during her hospitalization, she was found to be iron deficient and given IV iron infusion. On 02/01/2023, patient was seen and examined: On examination she appeared older than her stated age, she responded appropriately to questions, she does not appear to be in any distress. Vital signs as documented. Skin warm and dry and without overt rashes. Neck without JVD, thyroid appears normal, trachea is midline, neck is supple. Lungs clear, normal air movement was noted. Heart exam notable for regular rhythm, normal sounds and absence of murmurs, rubs or gallops. Abdomen unremarkable and without evidence of organomegaly, masses, or abdominal aortic enlargement, bowel sounds are present in all 4 quadrants, no abdominal tenderness was noted. Extremities nonedematous, no cyanosis was noted, no clubbing was noted. Neuro: Cranial nerves II through XII are grossly intact, no focal motor deficits were noted, sensation to light touch and pinprick is intact, motor exam 5/5 throughout. Patient has a fine resting tremor noted in her hands. Psych: Patient is alert and oriented x3, she does not appear anxious or depressed, she does not appear agitated. On 02/01/2023, patient appeared to be stable for discharge home, I talked personally with the who was at the hospital and discussed her medical care with him. Medical Records Data Medical Nutrition Assessment Dietitian: Malnutrition Criteria Met Start: 01/30/23 15:44 Freq: Status: Active Protocol: Document 01/31/23 11:48 RMA (Rec: 01/31/23 11:48 RMA [id number]) Nutrition Malnutrition Evidence of Malnutrition Exists Yes Malnutrition (severe): Chronic Evidenced By Suboptimal Energy Intake ( Severe),Weight Loss (Severe) Clinical Problem Chronic Disease or Condition Related Malnutrition Etiology chronic, severe malnutrition related to inadequate oral intake d/t swallowing difficulty Signs/Symptoms as evidenced by unintentional 26#/18% wt loss x 5 months; estimated PO intake meeting < 75% of estimated energy needs > 5 months Status Active Problem Recommendation Dietitian Recommendations/Changes Diet as tolerated to Regular ( soft & bite-sized food) once tolerance currently established with full liquids s/p EGD. Will add 120ml ensure plus high protein 4 times per day w / medpass as tolerated. ONS as per pt preference once PO tolerance established. Weight / BMI Weight Weight: 55.4 kg Body Mass Index (BMI) 20.3 ABG / Lab / Microbiology Data Result Diagrams: 02/01/23 05:28 02/01/23 05:28 Laboratory: Laboratory Results - last 24 hr 02/01/23 05:28: Hgb 7.7 L, Hct 25.7 L D/C Instructions Discharge Diet: Soft diet Weight Bearing Status: Full weight bearing Meaningful Use Info Meaningful Use Diagnoses (Choose all that apply): None applicable Discharge Plan Admission Admit Date/Time: 01/30/23 12:45 Primary Reason for Your Visit: esophageal stricture Attending Provider: Edinson Rivers Primary Care Provider: Jay Kincaid INSTALLATION SUPERINTENDENT Consulting Providers: Francis Verma ; Augustus Gray Instructions Additional Instructions / Restrictions: increase Ferrous sulfate to 325 mg one twice a day Discharge Orders/Prescriptions Prescriptions: Continued guaifenesin 100 mg/5 mL liquid 200 mg PO Q4H PRN (Reason: congestion) Qty: 1000 1RF methimazole 5 MG tablet 5 mg PO SUMOWEFR cinacalcet 30 MG tablet 30 mg PO SUMOWEFR memantine 10 MG tablet 10 mg PO DAILY cholecalciferol (vitamin D3) 2,000 UNIT capsule 2,000 unit PO DAILY oxybutynin chloride 15 mg tablet extended release 24hr 15 mg PO DAILY Label Comments: take 1 tablet by mouth every morning losartan 25 mg tablet 25 mg PO DAILY Label Comments: take 1 tablet by mouth once daily polyethylene glycol 3350 [Miralax] 17 gram/dose Powder 17 g PO DAILY Prolia 60 mg/mL Syringe 60 mg SUBCUT .Q6MO lamotrigine 100 mg tablet 200 mg PO DAILY Label Comments: take 1 tablet by mouth once daily for 2 WEEKS then INCREASE to 1 ... (REFER TO PRESCRIPTION NOTES). lorazepam 2 mg tablet 2 mg PO 4XD PRN (Reason: AGITATION) Qty: 1 0RF Label Comments: take 1 tablet by mouth four times a day if needed for anxiety ferrous sulfate 325 MG tablet 325 mg PO QODAY Qty: 30 0RF pantoprazole 40 mg tablet,delayed release (DR/EC) 40 mg PO BID Label Comments: take 1 tablet by mouth twice a day sucralfate 100 mg/mL suspension 10 ml PO QACHS Referrals / Follow Up: Jay Kincaid INSTALLATION SUPERINTENDENT, INSTALLATION SUPERINTENDENT-C [Primary Care Provider] - Disposition Disposition (needs filled in before D/C Order can be placed): Home, Self Care Charges/Coding Visit Charges Inpatient E&M: 32807 Disch Hosp >30min
[2023-02-01] MEDS: Pantoprazole Sodium 40 MG Tablet PO (10:05)
[2023-02-01 10:15] LABS: Anion Gap 3 (5-15); BUN 32 mg/dL (7-18); BUN/Creat Ratio 19.2 RATIO (10-20); Calcium,Total 9.9 mg/dL (8.5-10.1); Chloride 111 mmol/L (98-107); Creatinine, Serum 1.67 mg/dL (0.55-1.02); EST Glomerular Filtration Rate 32 mL/min (>60); Est Glom Filt Rate - Afr Amer 39 mL/min (>60); Estimated Creatinine Clearance 26.24 ml/min; Glucose 99 mg/dL (74-106); Potassium 4.5 mmol/L (3.5-5.1); Sodium Level 140 mmol/L (136-145)
--- NOTE | 2023-02-02 08:10 | CASEMGMT ---
ALEXEY MARTIN Follow-up: Backline message received from Cindy at [facility]. Pt has been accepted for resumption of care. Salvador Santillan RN CM
== END 2023-02-01 11:44 | disposition home health service (06) | DRG 391 ==
LOC: ED 12:51 → MS3 01-31 06:54
PROVIDERS: Anesthesiology; Internal Medicine Gastroenterology; Admitting Provider Internal Medicine; Emergency Provider Emergency Medicine; PCP Nurse Practitioner Family; Visit Provider Internal Medicine
PROC: 0DJ08ZZ Inspection of Upper Intestinal Tract, Via Natural or Artificial Opening Endoscopic (ICD-10-PCS; CPT 43235; principal; 2023-01-31 08:00)
DX: K22.2 Esophageal obstruction (principal); E43 Unspecified severe protein-calorie malnutrition; N17.9 Acute kidney failure, unspecified; F31.9 Bipolar disorder, unspecified; E21.0 Primary hyperparathyroidism; N18.30 Chronic kidney disease, stage 3 unspecified; E86.0 Dehydration; K31.84 Gastroparesis; E03.9 Hypothyroidism, unspecified; K21.00 Gastro-esophageal reflux disease with esophagitis, without bleeding; D50.9 Iron deficiency anemia, unspecified; E05.90 Thyrotoxicosis, unspecified without thyrotoxic crisis or storm; I12.9 Hypertensive chronic kidney disease with stage 1 through stage 4 chronic kidney disease, or unspecified chronic kidney disease; R13.10 Dysphagia, unspecified; M81.0 Age-related osteoporosis without current pathological fracture; Z79.899 Other long term (current) drug therapy; Z87.891 Personal history of nicotine dependence; Z68.20 Body mass index [BMI] 20.0-20.9, adult; K44.9 Diaphragmatic hernia without obstruction or gangrene
CPT/HCPCS: 43255; 43249; 36415; 80048; 80053; 83690; 84443; 85014; 85018; 85025; 85610; 85730; 93005; 96361; 96365; 96366; 96367; 96375; 97802; 99221; 99283; J7040; J7050; J7120; A4216; G0378; J0585; J2405; J2916

== ENCOUNTER → 2023-02-06 | Outpatient (CLI) | payer MEDICARE, SELFPAY ==
[2023-02-06 12:10] LABS: Anion Gap 5 (5-15); BUN 52 mg/dL (7-18); BUN/Creat Ratio 26.9 RATIO (10-20); Calcium,Total 11.9 mg/dL (8.5-10.1); Chloride 99 mmol/L (98-107); Creatinine, Serum 1.93 mg/dL (0.55-1.02); EST Glomerular Filtration Rate 27 mL/min (>60); Est Glom Filt Rate - Afr Amer 33 mL/min (>60); Glucose 97 mg/dL (74-106); Potassium 4.4 mmol/L (3.5-5.1); Sodium Level 135 mmol/L (136-145)
[2023-02-06 12:27] LABS: Protein, Urine (Random) 12.4 mg/dL (<11.9); Protein:Creat Ratio 561 mg/g CRE (0-200)
== END | disposition home or self-care (01) ==
PROVIDERS: PCP Nurse Practitioner Family; Referring Provider Internal Medicine Nephrology; Visit Provider Internal Medicine Nephrology
DX: N18.32 Chronic kidney disease, stage 3b (principal)
CPT/HCPCS: 36415; 80048; 82570; 84156

== ENCOUNTER → 2023-02-10 | Outpatient (CLI) | payer MEDICARE, SELFPAY ==
[2023-02-10 11:37] LABS: Erythrocyte Sedimentation Rate 27 mm/hr (0-30)
[2023-02-10 11:41] LABS: Absolute Lymphocyte Count 2.21 X10^3/uL (0.83-4.51); Absolute Neutrophil Count 3.7 X10^3/uL (2.0-7.7); Basophil# 0.05 X10^3/uL; Basophil% 0.7 % (0-1); Eosinophil# 0.33 X10^3/uL; Eosinophils% 4.9 % (0-5); Hematocrit 35.8 % (37-47); Hemoglobin 10.8 g/dL (12.0-15.0); Lymphocyte # 2.21 X10^3/ul (0.83-4.51); Lymphocyte % 32.5 % (19-41); Mean Corp Hgb Conc 30.2 g/dL (32-36); Mean Corpuscular Hgb 28.3 pg (27.0-32.0); Mean Platelet Vol. 8.6 fl (6.2-12.0); Monocyte# 0.46 X10^3/uL; Monocyte% 6.8 % (0-10); NRBC Flagged by Analyzer 0 % (0-5); Neutrophil # 3.71 X10^3/uL (2.7-7.7); Neutrophil % 54.5 % (47-70); Platelet Count 359 K/mm3 (150-450); RBC Distribution Width CV 14.9 % (11.6-14.6); RBC Distribution Width SD 51.6 fl (35.1-43.9); Red Blood Count 3.81 M/mm3 (4.2-5.4); White Blood Count 6.8 K/mm3 (4.4-11.0)
[2023-02-10 12:06] LABS: Vitamin B12 539 pg/mL (211-911)
[2023-02-10 13:05] LABS: AST(SGOT) 18 U/L (15-37); Alanine Aminotransfer ALT/SGPT 22 U/L (13-56); Albumin, Serum 3.8 g/dL (3.2-5.0); Alkaline Phosphatase 92 U/L (45-117); Bilirubin, Direct 0.08 mg/dL (0.00-0.30); CPK Total, Creatine Kinase 28 U/L (26-192); CRP 4.08 mg/L (0.0-3.0); Globulin 4.1 g/dL (2.2-4.2); Protein, Total 7.9 g/dL (6.4-8.2)
[2023-02-10 14:05] LABS: PTHIN 77.1 pg/mL (18.4-80.1)
[2023-02-12 14:22] LABS: ANTINUCLEAR ANTIBODIES DIRECT Negative (Negative)
[2023-02-12 15:09] LABS: Aldolase 2.6 U/L (3.3-10.3); Free Lambda Light Chains 30.3 mg/L (5.7-26.3); Vitamin B1, Thiamine 160.6 nmol/L (66.5-200.0)
[2023-02-12 17:02] LABS: Lamotrigine (Lamictal) Level 8.5 ug/mL (2.0-20.0); Myoglobin, Serum 41 ng/mL (25-58)
== END | disposition home or self-care (01) ==
PROVIDERS: PCP Nurse Practitioner Family; Referring Provider Psychiatry & Neurology Neurology; Visit Provider Psychiatry & Neurology Neurology
DX: G62.9 Polyneuropathy, unspecified (principal); F31.9 Bipolar disorder, unspecified; N25.81 Secondary hyperparathyroidism of renal origin; R53.1 Weakness; D64.9 Anemia, unspecified; K31.84 Gastroparesis
CPT/HCPCS: 36415; 80076; 82085; 82140; 82330; 82542; 82550; 82607; 82652; 82746; 83874; 83883; 83970; 84425; 85025; 85652; 86038; 86140; 86225; 86235

== ENCOUNTER 2023-03-02 09:49 | Emergency (ER) | payer MEDICARE, SELFPAY ==
[2023-03-02 09:50] VITALS: BP 126/98; PULSE 90; RESP 18; TEMP 37.1; O2SAT 99
--- NOTE | 2023-03-02 10:07 | EX.ED.DYSGE1 ---
HPI History of Present Illness Chief Complaint: General Illness Informant: patient and spouse/S.O. Narrative Narrative: Patient presents for trouble swallowing for the past 2 or 3 days. States has had 4 or 5 episodes of this in the past couple months, each of which had led to an EGD and dilatation according to the has been. They state that she is able to pass/swallow liquids and soft foods over the past 2 days, but they present here this morning to the ER because she was not able to swallow her pills this morning and vomited them up. After this occurs, she has a lot of phlegm for several hours limiting her ability to eat or drink anything in that period of time. She has been drinking in the last 2 days but less than usual and subsequently urinating a little less than usual but she did urinate this morning prior to coming here, currently around 10 AM. states he is very concerned about her sodium levels, which have been abnormally high at times and abnormally low at other times, so she has a certain amount of fluid/water that she is post to drink throughout the day, and he is concerned that her sodium would be high because she has not been drinking enough lately. They also state that she has been following with neurology after being referred there by GI. also states she has had aspiration pneumonia before and been admitted for it, and since she has been coughing intermittently lately, he is concerned that maybe she aspirated again. The patient denies having any dyspnea or chest discomfort or fever/chills. No recent travel out of the area. [facility] Medical History Acute renal insufficiency CITLALY (acute kidney injury) Anemia Anxiety Back pain Bipolar disorder Bipolar disorder with moderate depression Bladder disease Delirium due to multiple etiologies Diabetes insipidus Dietary restriction Difficulty chewing Erosive esophagitis Falls Former smoker Gastric reflux Gastroparesis Generalized weakness Gram-negative bacteremia History of edema History of herpes zoster History of hiatal hernia Hypercalcemia Hypernatremia Hypertension Post-menopausal Pulmonary emboli Secondary hyperparathyroidism of renal origin Severe malnutrition Severe malnutrition Stenosis of esophagus Tardive dyskinesia Thyroid disease Unsteady gait UTI (urinary tract infection) Wears glasses Home Medications cinacalcet 30 mg tablet 30 mg PO SUMOWEFR THYROID 10/04/20 [History Last Taken 01/14/23] methimazole 5 mg tablet 5 mg PO SUMOWEFR . 10/04/20 [History Last Taken 01/14/23] memantine 10 mg tablet 10 mg PO DAILY . 01/03/21 [History Last Taken 01/14/23] cholecalciferol (vitamin D3) 50 mcg (2,000 unit) capsule 2,000 unit PO DAILY SUPPLEMENT 01/15/21 [History Last Taken 01/13/23] denosumab 60 mg/mL subcutaneous syringe (Prolia) 60 mg subcut .Q6MO . 09/05/22 [History Last Taken 08/27/22] losartan 25 mg tablet 25 mg PO DAILY . 09/05/22 [History Last Taken 01/14/23] oxybutynin chloride 15 mg tablet,extended release 24 hr 15 mg PO DAILY . 09/05/22 [History Last Taken 01/14/23] polyethylene glycol 3350 17 gram/dose oral powder (Miralax) 17 g PO DAILY LAXATIVE 09/05/22 [History Last Taken 09/05/22] lamotrigine 100 mg tablet 200 mg PO DAILY . 12/15/22 [History Last Taken 01/14/23] ferrous sulfate 325 mg (65 mg iron) tablet 325 mg PO QODAY SUPPLEMENT #30 tabs 12/24/22 [Rx Last Taken 01/13/23] lorazepam 2 mg tablet 2 mg PO 4XD PRN AGITATION #1 TAB 12/24/22 [Rx Last Taken 01/13/23] pantoprazole 40 mg tablet,delayed release 40 mg PO BID stomach 01/14/23 [History Last Taken 01/13/23] guaifenesin 100 mg/5 mL oral liquid 200 mg (10 mL) PO Q4H PRN congestion #1,000 mL 01/21/23 [Rx Last Taken Unknown] sucralfate 100 mg/mL oral suspension 10 ml PO QACHS Check with primary doctor 01/30/23 [History Last Taken Unknown] Allergy/AdvReac Type Severity Reaction Status Date / Time No Known Allergies Allergy Verified 02/09/23 09:54 Family History (Updated 02/09/23 @ 10:16 by Shagufta Olson) Father CVA (cerebral vascular accident) Sister CVA (cerebral vascular accident) Cancer Surgical History History of esophagogastroduodenoscopy (EGD) Hx of esophagogastroduodenoscopy Social History household members: spouse housing: house Smoking Status: Former smoker Tobacco: How many years used: 4 second hand exposure: Yes alcohol intake: never substance use type: does not use what type of physical activity do you participate in: other details: OT - [facility] IN [place] frequency: daily valentina/mormonism: Evangelical seatbelt use: always additional social history: Ambulates at baseline without assistive device ROS ROS ED Constitutional Constitutional ED: Denies chills or fever(s) Eyes Eyes: Denies change in vision or diplopia ENT ENT ED: Reports as per HPI and dysphagia; Denies rhinorrhea or sore throat Cardiovascular Cardiovascular: Denies chest pain or palpitations Respiratory/Chest Respiratory/Chest: Denies cough or dyspnea Gastrointestinal Gastrointestinal: Reports as per HPI and vomiting; Denies abdominal pain, diarrhea or nausea Genitourinary Genitourinary ED: Denies dysuria or hematuria Musculoskeletal Musculoskeletal: Denies back pain or neck pain Integumentary Denies abscess or rash Neurologic Neurologic: Denies headache(s), paresthesias or weakness Psychiatric Psychiatric: Denies anxiety or suicidal thoughts EXAM Physical Exam Const Vital Signs: 03/02/23 09:50 03/02/23 10:45 Temperature 98.7 F Temperature Source Temporal Pulse Rate 90 Respiratory Rate 18 Respiratory Effort Normal Non-Labored Respiratory Pattern Normal Blood Pressure 126/98 H Blood Pressure Mean 107 Pulse Ox 99 Oxygen Delivery Method Room Air Positive well nourished and well developed General Appearance ED: well developed and NAD HEENT Reports moist mucous membranes normocephalic and atraumatic Eyes PERRL and EOMs intact bilaterally Neck full ROM and supple Resp normal respiratory effort and clear to auscultation bilaterally Effort and Inspection: able to speak in complete sentences Cardio regular rate, regular rhythm and no murmurs GI non-tender and non-distended Auscultation: normoactive bowel sounds Palpation: soft Back/Spine no CVA tenderness General Back: other FROM Extremity normal to inspection General Extremety ED: Negative for edema, pulses abnormal or tenderness General Extremity: Negative for edema or pulses abnormal Neuro oriented x3, CN's II-XII intact bilaterally and no sensory deficits noted Sensorium / Orientation: awake and alert Motor Exam: strength 5/5 throughout Psych Appearance: grossly normal, appropriate and well kempt Mood & Affect: flat affect Thought Process: normal thought process Skin no rashes or lesions noted and no wounds MDM MDM MDM Narrative Medical decision making narrative: I did obtain some labs and the patient, they are similar to prior with a sodium of 137 well within the normal range, reassuring. She does have a history of hypercalcemia which she has now, as well as chronic renal sufficiency, which she has now not necessarily worse than usual, her BUN is less than usual, signifying that she is not dehydrated. I did do a chest x-ray to screen for radiographic signs of aspiration pneumonitis, she does not have any, the tibias look normal on my interpretation radiology in agreement. Her lungs are clear, and her pulse ox is 99 on room air, further supporting this. She is tolerating p.o. water here without any vomiting while she was in the ED. She does not meet any medical criteria for admission at this time. I discussed with Ms. Peacock, covering for Dr. Verma on GI service. She discussed with office staff/physician, and agree patient does not require admission or emergent EGD. She instructed me to have the patient call with any updates to the office. I advised her to crush up her pills and take them if she needs to, she does not appear to be on any sustained release tablets. History & Record Review Additional record(s) reviewed:: Prior outpatient record (GI: Previously diagnosed with erosive esophagitis, gastroparesis, hiatal hernia, esophageal stricture; referred to pulmonology, psychiatry, ENT who all felt they had nothing to add, so referred to neurology) Lab Data Attestation: I reviewed the patient's lab results. Labs: Laboratory Results - last 24 hr 03/02/23 03/02/23 10:35 10:35 WBC 4.8 RBC 3.86 L Hgb 11.2 L Hct 35.3 L MCV 91.5 MCH 29.0 MCHC 31.7 L RDW Std Deviation 46.7 H RDW Coeff of Lee 13.9 Plt Count 272 MPV 8.6 Immature Gran % (Auto) 0.000 Neut % (Auto) 60.4 Lymph % (Auto) 26.6 [place] % (Auto) 8.7 Eos % (Auto) 3.7 Baso % (Auto) 0.6 Absolute Neuts (auto) 2.9 Absolute Lymphs (auto) 1.28 Nucleated RBC % 0 Sodium 137 Potassium 3.8 Chloride 105 Carbon Dioxide 28.0 Anion Gap 4 L BUN 27 H Creatinine 2.01 H Estim Creat Clear Calc 21.56 Est GFR (MDRD) Af Amer 31 L Est GFR (MDRD) Non-Af 26 L BUN/Creatinine Ratio 13.4 Glucose 96 Calcium 12.2 H Radiography Chest X-Ray - ED: 2 View, Read by ED Physician and No Infiltrates Diagnostic Testing: Clinical Impression(s) from Imaging Studies Chest X-Ray 03/02/23 11:10 IMPRESSION: Hyperinflation. The lungs are clear. Electronically Signed: Cheng Schmitt MD at 11:58 EDT , Discharge Plan Triage Chief Complaint: General Illness ED Provider: Stoney Ashley Dx/Rx/DC Orders Clinical Impression: Dysphagia Instructions: ED Soft Diet, ED Dysphagia (Adult) Prescriptions: No Action guaifenesin 100 mg/5 mL liquid 200 mg PO Q4H PRN (Reason: congestion) Qty: 1000 1RF methimazole 5 MG tablet 5 mg PO SUMOWEFR cinacalcet 30 MG tablet 30 mg PO SUMOWEFR memantine 10 MG tablet 10 mg PO DAILY cholecalciferol (vitamin D3) 2,000 UNIT capsule 2,000 unit PO DAILY oxybutynin chloride 15 mg tablet extended release 24hr 15 mg PO DAILY Label Comments: take 1 tablet by mouth every morning losartan 25 mg tablet 25 mg PO DAILY Label Comments: take 1 tablet by mouth once daily polyethylene glycol 3350 [Miralax] 17 gram/dose Powder 17 g PO DAILY Prolia 60 mg/mL Syringe 60 mg SUBCUT .Q6MO lamotrigine 100 mg tablet 200 mg PO DAILY Label Comments: take 1 tablet by mouth once daily for 2 WEEKS then INCREASE to 1 ... (REFER TO PRESCRIPTION NOTES). lorazepam 2 mg tablet 2 mg PO 4XD PRN (Reason: AGITATION) Qty: 1 0RF Label Comments: take 1 tablet by mouth four times a day if needed for anxiety ferrous sulfate 325 MG tablet 325 mg PO QODAY Qty: 30 0RF pantoprazole 40 mg tablet,delayed release (DR/EC) 40 mg PO BID Label Comments: take 1 tablet by mouth twice a day sucralfate 100 mg/mL suspension 10 ml PO QACHS Primary Care Provider: Jay Kincaid NP Referrals: Friend,Francis, DO [Med Staff - Active Staff] - As soon as possible Jay Kincaid FAST FOOD TEAM MEMBER, FAST FOOD TEAM MEMBER-C [Primary Care Provider] - Activity Restrictions/Additional Instructions: Crush up your pills and take them if you need to in order to get them down. Disposition Disposition: Home, Self Care
[2023-03-02 10:41] LABS: Absolute Lymphocyte Count 1.28 X10^3/uL (0.83-4.51); Absolute Neutrophil Count 2.9 X10^3/uL (2.0-7.7); Basophil# 0.03 X10^3/uL; Basophil% 0.6 % (0-1); Eosinophil# 0.18 X10^3/uL; Eosinophils% 3.7 % (0-5); Hematocrit 35.3 % (37-47); Hemoglobin 11.2 g/dL (12.0-15.0); Lymphocyte # 1.28 X10^3/ul (0.83-4.51); Lymphocyte % 26.6 % (19-41); Mean Corp Hgb Conc 31.7 g/dL (32-36); Mean Corpuscular Volume 91.5 fL (81-99); Mean Platelet Vol. 8.6 fl (6.2-12.0); Monocyte# 0.42 X10^3/uL; Monocyte% 8.7 % (0-10); NRBC Flagged by Analyzer 0 % (0-5); Neutrophil # 2.91 X10^3/uL (2.7-7.7); Neutrophil % 60.4 % (47-70); Platelet Count 272 K/mm3 (150-450); RBC Distribution Width CV 13.9 % (11.6-14.6); RBC Distribution Width SD 46.7 fl (35.1-43.9); Red Blood Count 3.86 M/mm3 (4.2-5.4); White Blood Count 4.8 K/mm3 (4.4-11.0)
[2023-03-02 10:53] LABS: Anion Gap 4 (5-15); BUN 27 mg/dL (7-18); BUN/Creat Ratio 13.4 RATIO (10-20); Calcium,Total 12.2 mg/dL (8.5-10.1); Chloride 105 mmol/L (98-107); Creatinine, Serum 2.01 mg/dL (0.55-1.02); EST Glomerular Filtration Rate 26 mL/min (>60); Est Glom Filt Rate - Afr Amer 31 mL/min (>60); Estimated Creatinine Clearance 21.56 ml/min; Glucose 96 mg/dL (74-106); Potassium 3.8 mmol/L (3.5-5.1); Sodium Level 137 mmol/L (136-145)
--- NOTE | 2023-03-02 11:10 | RAD_ITS ---
STUDY: X-RAY CHEST REASON FOR EXAM: Female, 72 years old. Coughing after vomiting TECHNIQUE: PA and lateral views of the chest. COMPARISON: Comparison is made with prior study dated December 15, 2022. FINDINGS: Hyperinflation. There is no demonstrated pleural abnormality. Normal size heart. Normal mediastinum and tarik. Normal visualized pulmonary arteries. There is atherosclerotic calcification of the aortic arch with tortuosity. There are diffuse degenerative changes of the visualized thoracic spine. Normal visualized ribs, clavicles, and shoulders. There is no demonstrated abnormality of the visualized soft tissue structures of the upper abdomen. RAD/Chest PA and Lateral IMPRESSION: Hyperinflation. The lungs are clear. Electronically Signed: Cheng Schmitt MD at 11:58 EDT ,
== END 2023-03-02 12:50 | disposition home or self-care (01) ==
PROVIDERS: Emergency Provider Emergency Medicine; PCP Nurse Practitioner Family; Visit Provider Emergency Medicine
DX: R13.10 Dysphagia, unspecified (principal); I10 Essential (primary) hypertension; Z87.891 Personal history of nicotine dependence
CPT/HCPCS: 71046; 80048; 85025; 99283; A4216

== ENCOUNTER 2023-03-04 09:26 | Observation (INO) | payer MEDICARE, SELFPAY ==
[2023-03-04 09:27] VITALS: BP 140/114; PULSE 101; RESP 18; TEMP 36.6; O2SAT 98; BMI 20.2
--- NOTE | 2023-03-04 09:55 | EX.ED.DYSGE1 ---
HPI History of Present Illness Chief Complaint: Neuro S/Sx Informant: patient and spouse/S.O. Onset/Context/Timing Onset: Weeks Context: Gradual Onset Timing: Continuous Worsened by: Swallowing Relieved by: Esophageal dilatation Narrative Narrative: Patient presents with dysphagia that has been getting worse over the past 2 days. Patient states she has had similar problems with this in the past and has required multiple EGDs with esophageal dilatations. Patient states she called Dr. Verma's office and was referred to the emergency department for admission for EGD and possible esophageal dilatation. Patient states she is only able to swallow water. Patient is unable to swallow breads or soft foods. Patient is unable to swallow any other foods as well. Patient denies any fevers or chills. Patient midst to a dry cough. Patient denies any nausea or vomiting. Patient denies any urinary complaints. [facility] Medical History Acute renal insufficiency CITLALY (acute kidney injury) Anemia Anxiety Back pain Bipolar disorder Bipolar disorder with moderate depression Bladder disease Delirium due to multiple etiologies Diabetes insipidus Dietary restriction Difficulty chewing Erosive esophagitis Falls Former smoker Gastric reflux Gastroparesis Generalized weakness Gram-negative bacteremia History of edema History of herpes zoster History of hiatal hernia Hypercalcemia Hypernatremia Hypertension Post-menopausal Pulmonary emboli Secondary hyperparathyroidism of renal origin Severe malnutrition Severe malnutrition Stenosis of esophagus Tardive dyskinesia Thyroid disease Unsteady gait UTI (urinary tract infection) Wears glasses Home Medications cinacalcet 30 mg tablet 30 mg PO SUMOWEFR THYROID 10/04/20 [History Last Taken 01/14/23] methimazole 5 mg tablet 5 mg PO SUMOWEFR . 10/04/20 [History Last Taken 01/14/23] memantine 10 mg tablet 10 mg PO DAILY . 01/03/21 [History Last Taken 01/14/23] cholecalciferol (vitamin D3) 50 mcg (2,000 unit) capsule 2,000 unit PO DAILY SUPPLEMENT 01/15/21 [History Last Taken 01/13/23] denosumab 60 mg/mL subcutaneous syringe (Prolia) 60 mg subcut .Q6MO . 09/05/22 [History Last Taken 08/27/22] losartan 25 mg tablet 25 mg PO DAILY . 09/05/22 [History Last Taken 01/14/23] oxybutynin chloride 15 mg tablet,extended release 24 hr 15 mg PO DAILY . 09/05/22 [History Last Taken 01/14/23] polyethylene glycol 3350 17 gram/dose oral powder (Miralax) 17 g PO DAILY LAXATIVE 09/05/22 [History Last Taken 09/05/22] lamotrigine 100 mg tablet 200 mg PO DAILY . 12/15/22 [History Last Taken 01/14/23] ferrous sulfate 325 mg (65 mg iron) tablet 325 mg PO QODAY SUPPLEMENT #30 tabs 12/24/22 [Rx Last Taken 01/13/23] lorazepam 2 mg tablet 2 mg PO 4XD PRN AGITATION #1 TAB 12/24/22 [Rx Last Taken 01/13/23] pantoprazole 40 mg tablet,delayed release 40 mg PO BID stomach 01/14/23 [History Last Taken 01/13/23] guaifenesin 100 mg/5 mL oral liquid 200 mg (10 mL) PO Q4H PRN congestion #1,000 mL 01/21/23 [Rx Last Taken Unknown] sucralfate 100 mg/mL oral suspension 10 ml PO QACHS Check with primary doctor 01/30/23 [History Last Taken Unknown] famotidine 20 mg tablet 20 mg PO BID #60 tabs 03/03/23 [Rx Last Taken Unknown] Allergy/AdvReac Type Severity Reaction Status Date / Time No Known Allergies Allergy Verified 03/04/23 09:26 Family History (Updated 02/09/23 @ 10:16 by Shagufta Olson) Father CVA (cerebral vascular accident) Sister CVA (cerebral vascular accident) Cancer Surgical History History of esophagogastroduodenoscopy (EGD) Hx of esophagogastroduodenoscopy Social History household members: spouse housing: house Smoking Status: Former smoker Tobacco: How many years used: 4 second hand exposure: Yes alcohol intake: never substance use type: does not use what type of physical activity do you participate in: other details: OT [facility] IN [place] frequency: daily valentina/taoism: Gnosticism seatbelt use: always additional social history: Ambulates at baseline without assistive device ROS ROS ED Constitutional Constitutional ED: Denies chills or fever(s) Eyes Eyes: Denies blurry vision or change in vision ENT ENT ED: Denies rhinorrhea or sore throat Cardiovascular Cardiovascular: Denies chest pain or palpitations Respiratory/Chest Respiratory/Chest: Reports cough; Denies dyspnea Gastrointestinal Gastrointestinal: Denies nausea or vomiting Genitourinary Genitourinary ED: Denies dysuria or hematuria Musculoskeletal Musculoskeletal: Denies back pain or neck pain Integumentary Denies abscess or rash Neurologic Neurologic: Denies headache(s) or weakness Allergic/Immunologic Allergic/Immunologic ED: Denies mouth swelling or urticaria EXAM Physical Exam Const Vital Signs: 03/04/23 09:27 03/04/23 11:02 03/04/23 11:02 Temperature 97.8 F Temperature Source Temporal Pulse Rate 101 H 77 Respiratory Rate 18 16 Respiratory Effort Normal Respiratory Pattern Normal Blood Pressure 140/114 H 168/95 H Blood Pressure Mean 122 119 Pulse Ox 98 98 Oxygen Delivery Method Room Air Room Air 03/04/23 11:10 Temperature Temperature Source Pulse Rate 83 Respiratory Rate Respiratory Effort Respiratory Pattern Blood Pressure 175/102 H Blood Pressure Mean 126 Pulse Ox Oxygen Delivery Method Positive well nourished and well developed General Appearance ED: well developed and NAD HEENT Reports moist mucous membranes Neck supple and no JVD Resp normal respiratory effort and clear to auscultation bilaterally Cardio regular rate, regular rhythm and no murmurs GI normal to inspection, nondistended, normoactive bowel sounds and non-tender Palpation: soft Extremity normal to inspection General Extremety ED: Negative for edema or tenderness General Extremity: Negative for edema Neuro oriented x3, CN's II-XII intact bilaterally and no sensory deficits noted Sensorium / Orientation: alert Motor Exam: strength 5/5 throughout Psych mental status grossly normal Skin no rashes or lesions noted MDM MDM MDM Narrative Medical decision making narrative: Differential diagnosis includes esophageal stricture, Mora's esophagus, gastroesophageal reflux disease, dysphagia, electrolyte abnormality, acute kidney injury, and aspiration pneumonia. Chest x-ray will be obtained to assess for aspiration pneumonia. CBC will be obtained to assess for leukocytosis and anemia. Basic metabolic profile will be obtained to assess for electrolyte abnormality and renal function. Urinalysis will be obtained to assess for urinary tract infection. Lab Data Attestation: I reviewed the patient's lab results. Lab results narrative: CBC was reviewed. There is a mild anemia with a hemoglobin of 11.1 hematocrit 35.8. This is stable compared to previous results. Basic metabolic profile was reviewed and shows a BUN of 25 and creatinine of 1.94. These are also stable compared to previous results. Urinalysis was reviewed. Leukocyte esterase was 25. Labs: Laboratory Results - last 24 hr 03/04/23 03/04/23 03/04/23 09:50 09:50 10:55 WBC 4.7 RBC 3.95 L Hgb 11.1 L Hct 35.8 L MCV 90.6 MCH 28.1 MCHC 31.0 L RDW Std Deviation 43.9 RDW Coeff of Lee 13.3 Plt Count 261 MPV 8.6 Immature Gran % (Auto) 0.400 Neut % (Auto) 61.7 Lymph % (Auto) 25.8 [place] % (Auto) 8.7 Eos % (Auto) 2.8 Baso % (Auto) 0.6 Absolute Neuts (auto) 2.9 Absolute Lymphs (auto) 1.22 Nucleated RBC % 0 Sodium 137 Potassium 3.2 L Chloride 104 Carbon Dioxide 24.0 Anion Gap 9 BUN 25 H Creatinine 1.94 H Estim Creat Clear Calc 22.58 Est GFR (MDRD) Af Amer 33 L Est GFR (MDRD) Non-Af 27 L BUN/Creatinine Ratio 12.9 Glucose 79 Calcium 12.3 H Urine Color Yellow Urine Clarity Clear Urine pH 6.0 Ur Specific [place] 1.010 Urine Protein 30 H Urine Glucose (UA) Normal Urine Ketones 5 H Urine Occult Blood Negative Urine Nitrite Negative Urine Bilirubin Negative Urine Urobilinogen Normal Ur Leukocyte Esterase 25 H Radiography Diagnostic Testing: Clinical Impression(s) from Imaging Studies Chest X-Ray 03/04/23 10:22 IMPRESSION: Hyperinflation. Patchy right basilar infiltrate. Electronically Signed: Cheng Schmitt MD at 11:01 EDT , Portable 1 view chest x-ray was obtained. On my independent interpretation, lung gay show a patchy right basilar infiltrate. There is normal cardiac silhouette. Bony thorax is normal. Radiologist also interpreted the x-ray and agrees. Management Discussion w/another healthcare provider: Hospitalist and Public Health Aide (Dr. Verma from gastroenterology. He recommended admission for endoscopy.) Treatment and Re-Evaluation :: Patient was advised of her findings. Since the patient only has a dry cough and is afebrile, I do not feel the infiltrate is an infectious process. It may be aspiration pneumonitis. I will hold off antibiotics at this time. Case was discussed with Dr. Verma. He recommended admission to the hospitalist. He will take the patient to endoscopy for EGD and possible dilatation. Case was discussed with the hospitalist. He will admit the patient for observation. Patient and family understand and are agreeable with the plan. All questions were answered. Discharge Plan Triage Chief Complaint: Neuro S/Sx ED Provider: Roman Franco Dx/Rx/DC Orders Clinical Impression: Dysphagia, Esophageal stricture Prescriptions: No Action guaifenesin 100 mg/5 mL liquid 200 mg PO Q4H PRN (Reason: congestion) Qty: 1000 1RF methimazole 5 MG tablet 5 mg PO SUMOWEFR cinacalcet 30 MG tablet 30 mg PO SUMOWEFR memantine 10 MG tablet 10 mg PO DAILY cholecalciferol (vitamin D3) 2,000 UNIT capsule 2,000 unit PO DAILY oxybutynin chloride 15 mg tablet extended release 24hr 15 mg PO DAILY Label Comments: take 1 tablet by mouth every morning losartan 25 mg tablet 25 mg PO DAILY Label Comments: take 1 tablet by mouth once daily polyethylene glycol 3350 [Miralax] 17 gram/dose Powder 17 g PO DAILY Prolia 60 mg/mL Syringe 60 mg SUBCUT .Q6MO lamotrigine 100 mg tablet 200 mg PO DAILY Label Comments: take 1 tablet by mouth once daily for 2 WEEKS then INCREASE to 1 ... (REFER TO PRESCRIPTION NOTES). lorazepam 2 mg tablet 2 mg PO 4XD PRN (Reason: AGITATION) Qty: 1 0RF Label Comments: take 1 tablet by mouth four times a day if needed for anxiety ferrous sulfate 325 MG tablet 325 mg PO QODAY Qty: 30 0RF pantoprazole 40 mg tablet,delayed release (DR/EC) 40 mg PO BID Label Comments: take 1 tablet by mouth twice a day sucralfate 100 mg/mL suspension 10 ml PO QACHS famotidine 20 mg tablet 20 mg PO BID Qty: 60 2RF Primary Care Provider: Jay Kincaid NP Referrals: Jay Kincaid PARIMUTUEL TICKET CHECKER, PARIMUTUEL TICKET CHECKER-C [Primary Care Provider] - Disposition Disposition: Acute Care Hospital [facility]
--- NOTE | 2023-03-04 10:22 | RAD_ITS ---
STUDY: X-RAY CHEST REASON FOR EXAM: Female, 72 years old. Cough . Dysphagia. TECHNIQUE: Single AP portable view of the chest. COMPARISON: Comparison is made with prior study dated March 02, 2023. FINDINGS: Patchy right lower lobe infiltrate. Hyperinflation. There is no demonstrated pleural abnormality. Normal size heart. Normal mediastinum and tarik. Normal visualized pulmonary arteries. There is atherosclerotic calcification of the aortic arch with tortuosity. There are diffuse degenerative changes of the visualized thoracic spine. Normal visualized ribs, clavicles, and shoulders. There is no demonstrated abnormality of the visualized soft tissue structures of the upper abdomen. RAD/Chest 1 View (Portable) IMPRESSION: Hyperinflation. Patchy right basilar infiltrate. Electronically Signed: Cheng Schmitt MD at 11:01 EDT ,
[2023-03-04 10:28] LABS: Absolute Lymphocyte Count 1.22 X10^3/uL (0.83-4.51); Absolute Neutrophil Count 2.9 X10^3/uL (2.0-7.7); Basophil# 0.03 X10^3/uL; Basophil% 0.6 % (0-1); Eosinophil# 0.13 X10^3/uL; Eosinophils% 2.8 % (0-5); Hematocrit 35.8 % (37-47); Hemoglobin 11.1 g/dL (12.0-15.0); Lymphocyte # 1.22 X10^3/ul (0.83-4.51); Lymphocyte % 25.8 % (19-41); Mean Corpuscular Hgb 28.1 pg (27.0-32.0); Mean Corpuscular Volume 90.6 fL (81-99); Mean Platelet Vol. 8.6 fl (6.2-12.0); Monocyte# 0.41 X10^3/uL; Monocyte% 8.7 % (0-10); NRBC Flagged by Analyzer 0 % (0-5); Neutrophil # 2.91 X10^3/uL (2.7-7.7); Neutrophil % 61.7 % (47-70); Platelet Count 261 K/mm3 (150-450); RBC Distribution Width CV 13.3 % (11.6-14.6); RBC Distribution Width SD 43.9 fl (35.1-43.9); Red Blood Count 3.95 M/mm3 (4.2-5.4); White Blood Count 4.7 K/mm3 (4.4-11.0)
[2023-03-04 10:36] LABS: Anion Gap 9 (5-15); BUN 25 mg/dL (7-18); BUN/Creat Ratio 12.9 RATIO (10-20); Calcium,Total 12.3 mg/dL (8.5-10.1); Chloride 104 mmol/L (98-107); Creatinine, Serum 1.94 mg/dL (0.55-1.02); EST Glomerular Filtration Rate 27 mL/min (>60); Est Glom Filt Rate - Afr Amer 33 mL/min (>60); Estimated Creatinine Clearance 22.58 ml/min; Glucose 79 mg/dL (74-106); Potassium 3.2 mmol/L (3.5-5.1); Sodium Level 137 mmol/L (136-145)
[2023-03-04 11:02] VITALS: BP 168/95; PULSE 77; RESP 16; O2SAT 98
[2023-03-04 11:05] VITALS: BMI 20.3
[2023-03-04 11:10] VITALS: BP 175/102; PULSE 83
[2023-03-04 11:27] LABS: Bacteria 0 SEEN /hpf (None Seen); Mucous, Urine 0 SEEN /hpf (<or=2+); Red Blood Cells-Urine 0 SEEN /hpf (0-5); Squamous Epithelial Cells - UA 0 SEEN /hpf (5-10)
[2023-03-04 11:45] LABS: Color, Urine Yellow (Yellow); Glucose, Dipstick Normal (Normal); Ketone-Dipstick 5 mg/dl (Negative); Leukocyte Esterase-Dipstick 25 /ul (Negative); Nitrite-Dipstick Negative (Negative); Occult Blood-Urine Negative /ul (Negative); Protein-Dipstick 30 mg/dl (Negative); Urine Bilirubin Dipstick Negative (Negative); Urine Clarity Clear (Clear); Urine Urobilinogen Normal (Normal)
[2023-03-04 12:02] LABS: White Blood Cells 0-5 SEEN /hpf (0-5)
[2023-03-04 12:08] VITALS: BP 157/93; PULSE 79; RESP 16; TEMP 36.6; O2SAT 99
[2023-03-04 14:32] VITALS: BP 149/88; PULSE 81; RESP 16; TEMP 36.8; O2SAT 100
[2023-03-04 14:35] VITALS: BMI 20.1
--- NOTE | 2023-03-04 16:08 | CON.PCM.GI_ITS ---
HPI Consult Data Date of Consult: 03/04/23 HPI Narrative Reason for Consultation: dysphagia HPI Narrative: SIMONA HERNANDEZ, is a 72 F who presents for the trouble swallowing. [facility] hospitalization 09.05.22-09.11.22 where she was treated for aspiration pneumonia and CITLALY in addition to chronic conditions. During hospitalization she was noted to be anemia and GI consulted with EGD performed. ?EGD 09.08.22?LA Grade D erosive esophagitis, bipolar cautery; esophageal plaques, candidiasis; small hiatal hernia ?Diflucan, PPI start. Recommend GET. ?Gastric emptying study 09.09.22?timed at 73 minutes (12-56). [facility] ED 10.06.22 with dysphagia. Biochemical workup and imaging concerning for ongoing aspiration pneumonia and discharged with liquid antibiotics. Outpatient workup ?Modified?Barium swallow 09.30.22?with recommendation of ST services. Notes esophageal retention of pudding and barium tablet. OV 10.28.22 for gastroparesis recommending start of?azithromycin. ?EGD 11.06.22?LA Grade C erosive esophagitis, APC; benign esophageal stenosis, TTS dilation; medium hiatal hernia. [facility] hospitalization 12.15.22-12.24.22 where she was treated for CITLALY with electrolyte imbalances and chronic conditions. GI consulted for management of dysphagia. ?EGD 12.15.22?LA Grade D erosive esophagitis, APC; benign esophageal stenosis, TTS dilation; medium hiatal hernia. ?EGD 12.22.22?benign esophageal stenosis, TTS dilator; medium hiatal hernia. ?PPI BID and sucralfate. ?Barium swallow 12.22.22?evidence of apple core lesion of mid and distal esophagus; dilation of proximal esophagus; small hiatal hernia. [facility] hospitalization 3.8.-313 where she was treated for CITLALY, malnutrition, dysphagia, bacteremia/UTI and chronic conditions. GI consulted for management of dysphagia. ?EGD 3?benign esophageal stenosis, TTS dilator; medium hiatal hernia. OV 3 recommending start of?sucralfate and guaifenesin liquid. [facility] hospitalization 3.-3 where she was treated for esophageal stricture, CITLALY and chronic conditions. GI consulted for management of dysphagia. ?EGD 01.31.23?benign esophageal stenosis, TTS dilator, injected with Botox and treated with APC; medium hiatal hernia. ?Sucralfate and protonix. Pulmonology, Psychiatry, ENT seen previously who do not feel her mucus/dysphagia are related to their field. He recently saw neurology and was started on Famotidine twice a day. [facility] Medical History Acute renal insufficiency CITLALY (acute kidney injury) Anemia Anxiety Back pain Bipolar disorder Bipolar disorder with moderate depression Bladder disease Delirium due to multiple etiologies Diabetes insipidus Dietary restriction Difficulty chewing Erosive esophagitis Falls Former smoker Gastric reflux Gastroparesis Generalized weakness Gram-negative bacteremia History of edema History of herpes zoster History of hiatal hernia Hypercalcemia Hypernatremia Hypertension Post-menopausal Pulmonary emboli Secondary hyperparathyroidism of renal origin Severe malnutrition Severe malnutrition Stenosis of esophagus Tardive dyskinesia Thyroid disease Unsteady gait UTI (urinary tract infection) Wears glasses Home Medications cinacalcet 30 mg tablet 30 mg PO SUMOWEFR THYROID 10/04/20 [History Last Taken 01/14/23] methimazole 5 mg tablet 5 mg PO SUMOWEFR Check with primary doctor 10/04/20 [History Last Taken 01/14/23] memantine 10 mg tablet 10 mg PO DAILY Check with primary doctor 01/03/21 [History Last Taken 01/14/23] denosumab 60 mg/mL subcutaneous syringe (Prolia) 60 mg subcut .Q6MO . 09/05/22 [History Last Taken 10/19/22] oxybutynin chloride 15 mg tablet,extended release 24 hr 15 mg PO DAILY . 09/05/22 [History Last Taken 01/14/23] polyethylene glycol 3350 17 gram/dose oral powder (Miralax) 17 g PO DAILY LAXATIVE 09/05/22 [History Last Taken 09/05/22] lamotrigine 100 mg tablet 200 mg PO DAILY . 12/15/22 [History Last Taken 01/14/23] ferrous sulfate 325 mg (65 mg iron) tablet 325 mg PO QODAY SUPPLEMENT #30 tabs 12/24/22 [Rx Last Taken 01/13/23] lorazepam 2 mg tablet 2 mg PO 4XD PRN AGITATION #1 TAB 12/24/22 [Rx Last Taken 01/13/23] pantoprazole 40 mg tablet,delayed release 40 mg PO BID stomach 01/14/23 [History Last Taken 01/13/23] sucralfate 100 mg/mL oral suspension 10 ml PO QACHS Check with primary doctor 01/30/23 [History Last Taken Unknown] famotidine 20 mg tablet 20 mg PO BID #60 tabs 03/03/23 [Rx Last Taken Unknown] Allergy/AdvReac Type Severity Reaction Status Date / Time No Known Allergies Allergy Verified 03/04/23 09:26 Family History (Updated 02/09/23 @ 10:16 by Shagufta Olson) Father CVA (cerebral vascular accident) Sister CVA (cerebral vascular accident) Cancer Surgical History History of esophagogastroduodenoscopy (EGD) Hx of esophagogastroduodenoscopy Social History household members: spouse housing: house Smoking Status: Former smoker Tobacco: How many years used: 4 second hand exposure: Yes alcohol intake: never substance use type: does not use what type of physical activity do you participate in: other details: OT - [facility] [place] frequency: daily valentina/presybeterian: Orthodox seatbelt use: always additional social history: Ambulates at baseline without assistive device ROS ROS Narrative GENERAL: denies fever, chills, night sweats, weight loss, anorexia HEENT: denies headache, sinus congestion, or drainage, dysphagia RESPIRATORY: denies cough, sputum production, shortness of breath, dyspnea on exertion CARDIAC: denies chest pain, palpitations, orthopnea, PND GASTROINTESTINAL: Difficulty swallowing GENITOURINARY: denies dysuria, urgency, frequency, heamaturia EXTREMITY: denies swelling MUSCULOSKELETAL: denies current joint pain or tenderness NEUROLOGIC: denies focal numbness, weakness, tingling HEMATOLOGIC: denies easy bruising and/or hemorrhage INTEGUMENT: denies rashes PSYCHIATRIC: denies suicidal or homicidal ideation Physical Exam Const alert and no apparent distress Constitutional Narrative: Patient has a flat affect and appears much older than her stated age. HEENT head/scalp atraumatic and moist oral mucous membranes Eyes PERRL, EOMs intact bilaterally and conjunctivae normal Neck supple and no JVD Resp normal respiratory effort, no retractions, no use of accessory muscles and clear to auscultation bilaterally Cardio regular rate, regular rhythm, S1 normal heart sound and S2 normal heart sound GI normal to inspection, nondistended, normoactive bowel sounds and soft to palpation Extremity normal to inspection and no clubbing, cyanosis or edema Neuro CN's II-XII intact bilaterally and moves all extremities Sensorium / Orientation: oriented to person and oriented to place Psych Psych Narrative: Patient has a flat affect, she responds appropriately to simple questions Lab / Micro Data Result Diagrams: 03/04/23 09:50 03/04/23 09:50 Labs: Laboratory Results - last 24 hr 03/04/23 09:50: WBC 4.7, RBC 3.95 L, Hgb 11.1 L, Hct 35.8 L, MCV 90.6, MCH 28.1, MCHC 31.0 L, RDW Std Deviation 43.9, RDW Coeff of Lee 13.3, Plt Count 261, MPV 8.6, Immature Gran % (Auto) 0.400, Neut % (Auto) 61.7, Lymph % (Auto) 25.8, Bertie % (Auto) 8.7, Eos % (Auto) 2.8, Baso % (Auto) 0.6, Absolute Neuts (auto) 2.9, Absolute Lymphs (auto) 1.22, Nucleated RBC % 0 03/04/23 09:50: Sodium 137, Potassium 3.2 L, Chloride 104, Carbon Dioxide 24.0, Anion Gap 9, BUN 25 H, Creatinine 1.94 H, Estim Creat Clear Calc 22.58, Est GFR (MDRD) Af Amer 33 L, Est GFR (MDRD) Non-Af 27 L, BUN/Creatinine Ratio 12.9, Glucose 79, Calcium 12.3 H 03/04/23 10:55: Urine Color Yellow, Urine Clarity Clear, Urine pH 6.0, Ur Specific [place] 1.010, Urine Protein 30 H, Urine Glucose (UA) Normal, Urine Ketones 5 H, Urine Occult Blood Negative, Urine Nitrite Negative, Urine Bilirubin Negative, Urine Urobilinogen Normal, Ur Leukocyte Esterase 25 H, Urine RBC 0 SEEN, Urine WBC 0-5 SEEN, Ur Squamous Epith Cells 0 SEEN, Urine Bacteria 0 SEEN, Urine Mucus 0 SEEN Radiology Impression Chest X-Ray 03/04/23 10:22 IMPRESSION: Hyperinflation. Patchy right basilar infiltrate. Electronically Signed: Cheng Schmitt MD at 11:01 EDT , Assessment & Plan Assessment/Plan (1) Esophageal stricture: (2) Bipolar disorder: (3) Anemia, unspecified: (4) Severe dehydration: (5) Dysphagia: PLAN: Plan 1. Esophageal stenosis-plan for EGD with dilation tomorrow. #2 acute kidney injury-patient is on IV fluids at this time, BMP will be rechecked tomorrow #3 iron deficiency anemia-patient will be given IV Venofer #4 bipolar disorder-complicates care, medical course, recovery, and prognosis #5 chronic severe protein caloric malnutrition-as evidenced by unintentional 26 pound weight loss x5 months and estimated p.o. intake meeting less than 75% of estimated energy needs greater than 5 months-regular diet was recommended, patient and family agreed to PEG placement at this time #6 hypothyroidism-patient is on methimazole #7 iron deficiency anemia-patient is on iron supplementation and she recieved iron transfusion on the last visit. Charges/Coding Visit Charges Inpatient E&M: 56625 Init Hosp L3
[2023-03-04] MEDS: LORazepam 1 MG Tablet 2 MG PO ×2 (16:09→21:45)
[2023-03-04] MEDS: KCL 20MEQ in 0.9% NS 20 MEQ/1,000 ML IV.SOLN. 75 MEQ IV (16:10)
[2023-03-04] MEDS: 0.9% Saline Lock 10 ML Syringe IV (16:10)
--- NOTE | 2023-03-04 18:34 | PCM.HP.STD ---
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 Patient has a history of esophageal stricture and had been dilated in January 2023, at that time she also received a Botox injection. Evaluation in the emergency room included a CBC which showed a normal white blood cell count, hemoglobin was low at 11.1, chemistry profile showed a potassium of 3.2, creatinine of 1.94, BUN of 25, and the patient's calcium was elevated at 12.3. Patient's chest x-ray showed hyperinflation and patchy right basilar infiltrate. Patient was placed in observation status on MedSurg 3, she will undergo an EGD and possibly PEG tube placement on 03/05/2023. [facility] Medical History Acute renal insufficiency CITLALY (acute kidney injury) Anemia Anxiety Back pain Bipolar disorder Bipolar disorder with moderate depression Bladder disease Delirium due to multiple etiologies Diabetes insipidus Dietary restriction Difficulty chewing Erosive esophagitis Falls Former smoker Gastric reflux Gastroparesis Generalized weakness Gram-negative bacteremia History of edema History of herpes zoster History of hiatal hernia Hypercalcemia Hypernatremia Hypertension Post-menopausal Pulmonary emboli Secondary hyperparathyroidism of renal origin Severe malnutrition Severe malnutrition Stenosis of esophagus Tardive dyskinesia Thyroid disease Unsteady gait UTI (urinary tract infection) Wears glasses Home Medications cinacalcet 30 mg tablet 30 mg PO SUMOWEFR THYROID 10/04/20 [History Last Taken 01/14/23] methimazole 5 mg tablet 5 mg PO SUMOWEFR Check with primary doctor 10/04/20 [History Last Taken 01/14/23] memantine 10 mg tablet 10 mg PO DAILY Check with primary doctor 01/03/21 [History Last Taken 01/14/23] denosumab 60 mg/mL subcutaneous syringe (Prolia) 60 mg subcut .Q6MO . 09/05/22 [History Last Taken 08/27/22] oxybutynin chloride 15 mg tablet,extended release 24 hr 15 mg PO DAILY . 09/05/22 [History Last Taken 01/14/23] polyethylene glycol 3350 17 gram/dose oral powder (Miralax) 17 g PO DAILY LAXATIVE 09/05/22 [History Last Taken 09/05/22] lamotrigine 100 mg tablet 200 mg PO DAILY . 12/15/22 [History Last Taken 01/14/23] ferrous sulfate 325 mg (65 mg iron) tablet 325 mg PO QODAY SUPPLEMENT #30 tabs 12/24/22 [Rx Last Taken 01/13/23] lorazepam 2 mg tablet 2 mg PO 4XD PRN AGITATION #1 TAB 12/24/22 [Rx Last Taken 01/13/23] pantoprazole 40 mg tablet,delayed release 40 mg PO BID stomach 01/14/23 [History Last Taken 01/13/23] sucralfate 100 mg/mL oral suspension 10 ml PO QACHS Check with primary doctor 01/30/23 [History Last Taken Unknown] famotidine 20 mg tablet 20 mg PO BID #60 tabs 03/03/23 [Rx Last Taken Unknown] Allergy/AdvReac Type Severity Reaction Status Date / Time No Known Allergies Allergy Verified 03/04/23 09:26 Family History (Updated 02/09/23 @ 10:16 by Shagufta Olson) Father CVA (cerebral vascular accident) Sister CVA (cerebral vascular accident) Cancer Surgical History History of esophagogastroduodenoscopy (EGD) Hx of esophagogastroduodenoscopy Social History household members: spouse housing: house Smoking Status: Former smoker Tobacco: How many years used: 4 second hand exposure: Yes alcohol intake: never substance use type: does not use what type of physical activity do you participate in: other details: OT [facility] [place] frequency: daily valentina/judaism: Sabianism seatbelt use: always additional social history: Ambulates at baseline without assistive device ROS ROS Narrative Complete review of systems was unobtainable from the patient due to her chronic mild cognitive impairment, information was obtained from patient's who was present at the time my examination. Vital Signs Vital Signs Vital Signs: 03/04/23 09:27 03/04/23 11:02 03/04/23 11:02 Temperature 97.8 F Temperature Source Temporal Pulse Rate 101 H 77 Respiratory Rate 18 16 Respiratory Effort Normal Respiratory Pattern Normal Blood Pressure 140/114 H 168/95 H Blood Pressure Mean 122 119 Blood Pressure Source Blood Pressure Position Blood Pressure Location Pulse Ox 98 98 Oxygen Delivery Method Room Air Room Air 03/04/23 11:10 03/04/23 12:08 03/04/23 14:32 Temperature 97.8 F 98.2 F Temperature Source Temporal Oral Pulse Rate 83 79 81 Respiratory Rate 16 16 Respiratory Effort Respiratory Pattern Blood Pressure 175/102 H 157/93 H 149/88 H Blood Pressure Mean 126 114 108 Blood Pressure Source Monitor Blood Pressure Position Sitting Blood Pressure Location Left Arm Pulse Ox 99 100 Oxygen Delivery Method Room Air Room Air Weight Weight: 54.749 kg Body Mass Index (BMI) 20.1 Physical Exam Const alert and no apparent distress Constitutional Narrative: Patient is cachexic General Appearance: cooperative and well developed Orientation / Consciousness: awake, oriented to person and oriented to place HEENT normocephalic, head/scalp atraumatic, hearing grossly normal bilaterally and moist oral mucous membranes Eyes PERRL, EOMs intact bilaterally and conjunctivae normal Neck supple, no JVD, thyroid normal and no carotid bruits General: trachea midline Resp normal respiratory effort, no retractions, no use of accessory muscles and clear to auscultation bilaterally Auscultation: Negative for rales, rhonchi or wheezes Cardio regular rate, regular rhythm, S1 normal heart sound, S2 normal heart sound, no murmurs, no rub and no gallops GI normal to inspection, nondistended, normoactive bowel sounds, soft to palpation, non-tender and non-distended Extremity no clubbing, cyanosis or edema Skin no rashes or lesions noted General Skin Exam: no breakdown Neuro oriented x3, CN's II-XII intact bilaterally, moves all extremities, no focal motor deficits and no sensory deficits noted Sensorium / Orientation: awake, alert, oriented to person and oriented to place Speech: speech normal Psych Psych Narrative: patient exhibits mild cognitive impairement Results Medical Records Data Medical Nutrition Assessment Dietitian: Malnutrition Criteria Met Start: 03/04/23 16:10 Freq: Status: Active Protocol: Document 03/04/23 16:10 AG (Rec: 03/04/23 16:10 [id number]) Nutrition Malnutrition Evidence of Malnutrition Exists Yes Malnutrition (severe): Chronic Evidenced By Suboptimal Energy Intake ( Severe),Weight Loss (Severe) Clinical Problem Chronic Disease or Condition Related Malnutrition Etiology chronic, severe malnutrition related to inadequate oral intake d/t swallowing difficulty Signs/Symptoms as evidenced by unintentional 26#/18% wt loss x 5 months; estimated PO intake meeting < 75% of estimated energy needs > 5 months Status Active Problem Recommendation Dietitian Recommendations/Changes Will follow re: plan of care regarding possible PEG placement and make further recommendations as indicated. Regular diet if able to resume PO intake. Lab / Micro Data Result Diagrams: 03/04/23 09:50 03/04/23 09:50 Labs: Laboratory Results - last 24 hr 03/04/23 09:50: WBC 4.7, RBC 3.95 L, Hgb 11.1 L, Hct 35.8 L, MCV 90.6, MCH 28.1, MCHC 31.0 L, RDW Std Deviation 43.9, RDW Coeff of Lee 13.3, Plt Count 261, MPV 8.6, Immature Gran % (Auto) 0.400, Neut % (Auto) 61.7, Lymph % (Auto) 25.8, [place] % (Auto) 8.7, Eos % (Auto) 2.8, Baso % (Auto) 0.6, Absolute Neuts (auto) 2.9, Absolute Lymphs (auto) 1.22, Nucleated RBC % 0 03/04/23 09:50: Sodium 137, Potassium 3.2 L, Chloride 104, Carbon Dioxide 24.0, Anion Gap 9, BUN 25 H, Creatinine 1.94 H, Estim Creat Clear Calc 22.58, Est GFR (MDRD) Af Amer 33 L, Est GFR (MDRD) Non-Af 27 L, BUN/Creatinine Ratio 12.9, Glucose 79, Calcium 12.3 H 03/04/23 10:55: Urine Color Yellow, Urine Clarity Clear, Urine pH 6.0, Ur Specific [place] 1.010, Urine Protein 30 H, Urine Glucose (UA) Normal, Urine Ketones 5 H, Urine Occult Blood Negative, Urine Nitrite Negative, Urine Bilirubin Negative, Urine Urobilinogen Normal, Ur Leukocyte Esterase 25 H, Urine RBC 0 SEEN, Urine WBC 0-5 SEEN, Ur Squamous Epith Cells 0 SEEN, Urine Bacteria 0 SEEN, Urine Mucus 0 SEEN Radiology Impression Chest X-Ray 03/04/23 10:22 IMPRESSION: Hyperinflation. Patchy right basilar infiltrate. Electronically Signed: Cheng Schmitt MD at 11:01 EDT , Assessment & Plan Assessment/Plan (1) Dysphagia: PLAN: Plan 1. Esophageal stricture with nausea and vomiting-patient will be placed in observation status on MedSur 3, I talked at length with the patient and the patient's today at the time my examination, after much discussion, patient and patient's have agreed to the placement of a PEG tube tomorrow after the patient's EGD and esophageal dilatation, I like gastroenterology know about this. Patient will be seen by speech therapy, she may have to be n.p.o., for now I have placed her on clear liquids. #2 chronic kidney disease stage IV-complicates care, medical course, recovery, and prognosis, labs will be monitored #3 hypercalcemia secondary to hyperparathyroidism from chronic renal disease-patient does not need treatment for the hypercalcemia at this time, calcium levels will be monitored as necessary #4 hypokalemia-patient will be given IV fluids with potassium, labs will be rechecked #5 bipolar disorder-patient will remain on her current medications if she is able to have oral intake #6 gastroparesis-complicates care, medical course, recovery, and prognosis #7 chronic severe protein and caloric malnutrition-patient will be seen by nutritional services, again she has agreed to have a PEG tube placed tomorrow. #8 mild cognitive impairment-probably secondary to psychiatric illness, complicates care, medical course, recovery, and prognosis Total clinical time spent by myself addressing the patient's medical issues, reviewing all of her data, and collaborating with patient's care team: 75 minutes Charges/Coding Visit Charges Inpatient E&M: 72134 Init Hosp L3
[2023-03-04 20:30] VITALS: BP 120/82; PULSE 83; RESP 18; TEMP 36.8; O2SAT 96
[2023-03-04] MEDS: Heparin Injection (Vial) 5,000 UNIT/ML VIAL 5000 UNIT SC (21:38)
[2023-03-05] VITALS (9 sets, daily range): BP systolic 116–180; BP diastolic 70–97; PULSE 76–97; RESP 15–18; TEMP 36.1–37.7; O2SAT 94–100
[2023-03-05] MEDS: KCL 20MEQ in 0.9% NS 20 MEQ/1,000 ML IV.SOLN. 75 MEQ IV ×2 (04:54→22:15)
--- NOTE | 2023-03-05 06:00 | EKG12_ITS ---
Test Reason : AM EKG Blood Pressure : / mmHG Vent. Rate : 082 BPM Atrial Rate : 082 BPM P-R Int : 192 ms QRS Dur : 096 ms QT Int : 374 ms P-R-T Axes : 039 063 072 degrees QTc Int : 436 ms Normal sinus rhythm Normal ECG When compared with ECG of 31-JAN-2023 05:45, No significant change was found Confirmed by MODE ORELLANA, MARCELLUS ([id number]), city editor BRIANA CHUNG ([id number]) on 03/06/2023 8:20:59 AM Referred By: NIKA Confirmed By:MARCELLUS COELLO MD
[2023-03-05] MEDS: Lactated Ringers 1,000 ML 15 ML IV (06:48)
[2023-03-05 07:09] LABS: Anion Gap 11 (5-15); BUN 34 mg/dL (7-18); Calcium,Total 11.7 mg/dL (8.5-10.1); Chloride 113 mmol/L (98-107); Creatinine, Serum 2.12 mg/dL (0.55-1.02); EST Glomerular Filtration Rate 24 mL/min (>60); Est Glom Filt Rate - Afr Amer 29 mL/min (>60); Glucose 52 mg/dL (74-106); Phosphorus 4.1 mg/dL (2.5-4.9); Potassium 3.8 mmol/L (3.5-5.1); Sodium Level 142 mmol/L (136-145); Thyroid Stim Hormone (TSH) 0.23 uIU/mL (0.358-3.74)
--- NOTE | 2023-03-05 07:20 | NURSING ---
notified Jenny MYERS charge nurse of am glucose level that just resulted. states she will let anesthesia know.
--- NOTE | 2023-03-05 07:55 | OP.EGD_ITS ---
Patient Name: Fior Escamilla Procedure Date: 03/05/2023 7:00 AM Date of : 1950 Age: 72 Procedure: Upper GI endoscopy Indications: Dysphagia Providers: Francis Verma DO Medicines: Monitored Anesthesia Care Patient Profile: This is a 72 year old female. Refer to note in patient chart for documentation of history and physical. Patient has symptoms of dysphagia with both liquids and solids. Complications: No immediate complications. Procedure: Pre-Anesthesia Assessment: - Prior to the procedure, a History and Physical was performed, and patient medications and allergies were reviewed. The risks and benefits of the procedure and the sedation options and risks were discussed with the patient. All questions were answered and informed consent was obtained. Patient identification and proposed procedure were verified by the physician in the pre-procedure area. Mental Status Examination: alert and oriented. Airway Examination: normal oropharyngeal airway and neck mobility. Respiratory Examination: clear to auscultation. CV Examination: normal. Prophylactic Antibiotics: The patient does not require prophylactic antibiotics. Prior Anticoagulants: The patient has taken no previous anticoagulant or antiplatelet agents. ASA Grade Assessment: III - A patient with severe systemic disease. After reviewing the risks and benefits, the patient was deemed in satisfactory condition to undergo the procedure. The anesthesia plan was to use monitored anesthesia care (MAC). Immediately prior to administration of medications, the patient was re-assessed for adequacy to receive sedatives. The heart rate, respiratory rate, oxygen saturations, blood pressure, adequacy of pulmonary ventilation, and response to care were monitored throughout the procedure. The physical status of the patient was re-assessed after the procedure. After obtaining informed consent, the endoscope was passed under direct vision. Throughout the procedure, the patient's blood pressure, pulse, and oxygen saturations were monitored continuously. The Endoscope was introduced through the mouth, and advanced to the second part of duodenum. The upper GI endoscopy was accomplished without difficulty. The patient tolerated the procedure well. Scope In: 7:31:46 AM Scope Out: 7:47:06 AM Total Procedure Duration Time 0 hours 15 minutes 20 seconds Findings: One benign-appearing, intrinsic stenosis was found 28 to 32 cm from the incisors. This stenosis was severe (stenosis; an endoscope cannot pass) and. The stenosis was traversed after dilation. A TTS dilator was passed through the scope. Dilation with a 15-16.5-18 mm balloon dilator was performed to 16 mm. The dilation site was examined following endoscope reinsertion and showed complete resolution of luminal narrowing. Estimated blood loss was minimal. A small hiatal hernia was present. No other significant abnormalities were identified in a careful examination of the stomach. Bilious fluid was found in the stomach. The patient was placed in the supine position for PEG placement. The stomach was insufflated to appose gastric and abdominal jeffries. A site was located in the cardia with excellent transillumination for placement. The abdominal wall was marked and prepped in a sterile manner. The area was anesthetized with 1 mL of 0.5% lidocaine. The trocar needle was introduced through the abdominal wall and into the stomach under direct endoscopic view. A snare was introduced through the endoscope and opened in the gastric lumen. The guide wire was passed through the trocar and into the open snare. The snare was closed around the guide wire. The endoscope and snare were removed, pulling the wire out through the mouth. A skin incision was made at the site of needle insertion. The externally removable 20 Fr Bard gastrostomy tube was lubricated. The G-tube was tied to the guide wire and pulled through the mouth and into the stomach. The trocar needle was removed, and the gastrostomy tube was pulled out from the stomach through the skin. The external bumper was attached to the gastrostomy tube, and the tube was cut to remove the guide wire. The final position of the gastrostomy tube was confirmed by relook endoscopy, and skin marking noted to be 4 cm at the external bumper. The final tension and compression of the abdominal wall by the PEG tube and external bumper were checked and revealed that the bumper was loose and not touching the skin. The feeding tube was capped, and the tube site cleaned and dressed. The first portion of the duodenum was normal. Impression: - Benign-appearing esophageal stenosis. Dilated. - Small hiatal hernia. - Bilious gastric fluid. - Normal first portion of the duodenum. - An externally removable PEG placement was successfully completed. - No specimens collected. Recommendation: - Discharge patient to home. - Advance diet as tolerated and full liquid diet. - Continue present medications. Procedure Code(s): --- Professional --- 42096, Esophagogastroduodenoscopy, flexible, transoral; with directed placement of percutaneous gastrostomy tube 21317, Esophagogastroduodenoscopy, flexible, transoral; with transendoscopic balloon dilation of esophagus (less than 30 mm diameter) CPT copyright 2017 [employer]. All rights reserved. The codes documented in this report are preliminary and upon business professor review may be revised to meet current compliance requirements. Francis Verma DO 03/05/2023 7:54:38 AM This report has been signed electronically. Number of Addenda: 0 Note Initiated On: 03/05/2023 7:00 AM
--- NOTE | 2023-03-05 07:55 | OP.CCLET_ITS ---
03/05/2023 Jay Kincaid Re : Upper GI endoscopy procedure for Fior Escamilla Dear Codi This procedure was performed on February. My impressions and recommendations are as follows: Impressions : - Benign-appearing esophageal stenosis. Dilated. - Small hiatal hernia. - Bilious gastric fluid. - Normal first portion of the duodenum. - An externally removable PEG placement was successfully completed. - No specimens collected. Recommendations : - Discharge patient to home. - Advance diet as tolerated and full liquid diet. - Continue present medications. My findings are described in the full procedure note, which is enclosed. If I can be of further assistance, please feel free to contact me at . Sincerely, Francis Verma, 03/05/2023 7:54:38 AM This report has been signed electronically.
[2023-03-05 08:20] LABS: Bedside Glucose 52 mg/dL (74-106)
[2023-03-05 09:25] LABS: Hemoglobin A1c 4.7 % (3.8-5.6)
--- NOTE | 2023-03-05 09:39 | SUR.PHASEI ---
TALKED TO ENDO CHARGE NURSE SIVA JOHNSON SHE STATED DR SHANNA GAVE VERBAL ORDERS PT MAY HAVE PO INTAKE TOLERATED ALSO THAT PEG TUBE CAN BE USED RIGHT AWAY, COMPLETELY ASYMPTOMATIC FROM BLOOD SUGAR 51. PER POLICY PT DRANK 4OZ APPLE JUICE SLOWLY SITTING UP STRAIGHT IN BED WITH NO COUGH CHOKING OR DIFFICULTY SWALLOWING, CHARGE NURSE KRISTOPHER AWARE OF ALL ABOVE AND THAT ANESTHESIA DOES NOT FEEL NECESSARY TO TREAT OR COVER ASYMPTOMATIC LOW BLOOD SUGAR ANY FURTHER. KRISTOPHER IS OKAY WITH PT RETURNING TO MEDSURG UNIT.
[2023-03-05 09:56] LABS: Bedside Glucose 51 mg/dL (74-106)
[2023-03-05] MEDS: 0.9% Saline Lock 10 ML Syringe IV ×2 (10:06→20:31)
--- NOTE | 2023-03-05 10:43 | CASEMGMT ---
Addendum entered by Tan Al 03/05/23 15:52: Per Dr Verma, pt's PEG is an Enfit. [facility] notified of same and OP report/PEG placement faxed to [facility] [place] at this time per Cindy's request. Addendum entered by Tan Al 03/05/23 13:28: Call received from Cindy @ [facility] (PH: [phone]. Ext: [phone]). She states received the script for nutrition therapy and they are awaiting benefit determination, which can take up to 48 hrs. She confirms they do have this product available. Cindy inquiring if pt's PEG is an Enfit or a Legacy. ALEXEY MARTIN to check on this and notify Cindy once this information is obtained. Per cinthya Almaraz, [facility] has Osmolite 1.2 available and enough supply can be sent home w/pt for the weekend until the shipment arrives to pt's home, if needed. Addendum entered by Tan Al 03/05/23 12:22: and pt state have no preference of DME co for nutrition therapy. Call placed to [facility] and spoke w/Magaly. Per Magaly, they do have Osmolite 1.2 and this is what cinthya Almaraz, has recommended. Script for TF and supplies received from Dr Rivers and faxed to [facility] at this time. Addendum entered by Tan Al 03/05/23 11:24: [employer] form explained re: Observation status for treatment of dysphagia.? Explained hospitalization will be paid per herinsurance policy for Outpatient billing?and condition will continue to be evaluated for Inpt necessity. Also let pt know that [facility] sends paper in the billing packet with their phone number if questions arise. Discussed Pharmacy section of [employer] form and self administered medication guideline.? Pt verbalizes understanding and does not have further questions. ?Form signed, copy made and placed in chart, and original given to pt. Original Note: ALEXEY MARTIN NOTE: PEG tube has been placed. ALEXEY MARTIN to room to talk w/pt and who is at bedside. cinthya Almaraz, is at bedside talking w/them at this time. Provided w/list of companies for enteral nutrition and supplies that are In-network with pt's insurance. Rufina will work on getting script for enteral nutrition and supplies Per Rufina, pt already has a consult from Dr Verma for OP senior behavioral scientist. Pt and would like [facility] for SN. Pt denies wanting therapy. Pt just had [facility] and was discharged from them last week. Pt and would like [facility] again and decline wanting list of other HHC options. Order placed. Call to Cindy @ [facility] and referral made. They are able to accept pt w/anticipated SOC on Thursday. Pt and made aware. They deny having further discharge planning needs at this time. Shanna BSN RN CM
[2023-03-05] MEDS: Heparin Injection (Vial) 5,000 UNIT/ML VIAL 5000 UNIT SC ×2 (11:03→22:16)
[2023-03-05] MEDS: lamoTRIgine 100 MG Tablet 200 MG PO (11:07)
[2023-03-05] MEDS: LORazepam 1 MG Tablet 2 MG PO ×2 (13:58→22:16)
[2023-03-05] MEDS: Memantine Hydrochloride 10 MG Tablet PO (13:58)
--- NOTE | 2023-03-05 15:46 | PCM.PN.HOSP ---
Reason for Visit Reason for Visit: Diagnoses Anemia, unspecified (03/04/23) Dehydration (03/04/23) Bipolar disorder, unspecified (03/04/23) Esophageal obstruction (03/04/23) Dysphagia, unspecified (03/04/23) Subjective Subjective Patient was seen and examined today, she underwent an EGD with esophageal dilatation and injection of Botox and PEG tube insertion today. I talked to nutritional services today at length, we will begin tube feedings today at a low rate and the will be taught to administer them. Patient appears comfortable at the time of my examination. Objective Data Objective Data Vital Signs: Vital Signs Temp Pulse Resp BP Pulse Ox O2 Del Method 98.2 F 97 18 141/81 H 98 Room Air 03/05/23 13:57 03/05/23 13:57 03/05/23 13:57 03/05/23 13:57 03/05/23 13:57 03/05/23 13:57 Oxygen Delivery Method Room Air Weight: 52.8 kg Body Mass Index (BMI) 20.1 Intake & Output: Intake and Output for Last 24 Hours 03/03/23 03/04/23 03/05/23 23:59 23:59 23:59 Intake Total 2758.75 / 2758.75 Balance 2758.75 / 2758.75 Medical Nutrition Assessment Dietitian: Malnutrition Criteria Met Start: 03/04/23 16:10 Freq: Status: Active Protocol: Document 03/05/23 11:36 (Rec: 03/05/23 11:36 [id number]) Nutrition Malnutrition Evidence of Malnutrition Exists Yes Malnutrition (severe): Chronic Evidenced By Suboptimal Energy Intake ( Severe),Weight Loss (Severe) Clinical Problem Chronic Disease or Condition Related Malnutrition Etiology chronic, severe malnutrition related to inadequate oral intake d/t swallowing difficulty Signs/Symptoms as evidenced by unintentional 26#/18% wt loss x 5 months; estimated PO intake meeting < 75% of estimated energy needs > 5 months Status Active Problem Recommendation Dietitian Recommendations/Changes Will start via PEG Osmolite 1. 2- 120mL bolus 5x/day w/ 30mL H2O flush before and after each bolus to provide 720 calories, 33 g protein, and 792mL total fluid/day. Will monitor tolerance of EN, ability to resume PO diet, and adjust/advance EN as indicated. Regular diet when medically indicated- MBS w/ BOILERMAKING SUPERVISOR pending. Lab / Micro Data Result Diagrams: 03/04/23 09:50 03/05/23 05:45 Labs: Laboratory Results - last 24 hr 03/05/23 05:45: Sodium 142, Potassium 3.8, Chloride 113 H, Carbon Dioxide 18.0 L, Anion Gap 11, BUN 34 H, Creatinine 2.12 H, Estim Creat Clear Calc 19.70, Est GFR (MDRD) Af Amer 29 L, Est GFR (MDRD) Non-Af 24 L, BUN/Creatinine Ratio 16.0, Glucose 52 L, Calcium 11.7 H, Phosphorus 4.1, TSH 0.23 L 03/05/23 05:45: Hemoglobin A1c 4.7 03/05/23 08:00: POC Glucose 52 L 03/05/23 09:13: POC Glucose 51 L Physical Exam Narrative alert and no apparent distress Constitutional Narrative: Patient is cachexic General Appearance: cooperative and well developed Orientation / Consciousness: awake, oriented to person and oriented to place HEENT normocephalic, head/scalp atraumatic, hearing grossly normal bilaterally and moist oral mucous membranes Eyes PERRL, EOMs intact bilaterally and conjunctivae normal Neck supple, no JVD, thyroid normal and no carotid bruits General: trachea midline Resp normal respiratory effort, no retractions, no use of accessory muscles and clear to auscultation bilaterally Auscultation: Negative for rales, rhonchi or wheezes Cardio regular rate, regular rhythm, S1 normal heart sound, S2 normal heart sound, no murmurs, no rub and no gallops GI normal to inspection, nondistended, normoactive bowel sounds, soft to palpation, non-tender and non-distended Extremity no clubbing, cyanosis or edema Skin no rashes or lesions noted General Skin Exam: no breakdown Neuro oriented x3, CN's II-XII intact bilaterally, moves all extremities, no focal motor deficits and no sensory deficits noted Sensorium / Orientation: awake, alert, oriented to person and oriented to place Speech: speech normal Psych Psych Narrative: patient exhibits mild cognitive impairement Assessment & Plan Assessment/Plan (1) Dysphagia: PLAN: Plan 1. Esophageal stricture with nausea and vomiting-status post esophageal dilatation, Botox injection, and PEG tube insertion-patient will be placed on a regular diet, tube feeds will be instituted at a low rate by nutritional services. Patient's and the patient will be taught to administer tube feeds. Modified barium swallow will be performed tomorrow by speech therapy #2 chronic kidney disease stage IV-complicates care, medical course, recovery, and prognosis, labs will be monitored #3 hypercalcemia secondary to hyperparathyroidism from chronic renal disease-patient does not need treatment for the hypercalcemia at this time, calcium levels will be monitored as necessary, calcium level today was 11.7 #4 hypokalemia-corrected at this time #5 bipolar disorder-patient will remain on her current medications if she is able to have oral intake #6 gastroparesis-complicates care, medical course, recovery, and prognosis #7 chronic severe protein and caloric malnutrition-as evidenced by unintentional 26 pound weight loss x5 months and estimated p.o. intake meeting less than 75% of estimated energy needs for over 5 months-Osmolite 1.2-120 mL bolus 5 times a day with 30 cc water flush before and after each bolus to provide 720 breanne, 33 g of protein and 792 mL total fluid per day, regular diet was ordered for the patient also #8 mild cognitive impairment-probably secondary to psychiatric illness, complicates care, medical course, recovery, and prognosis Total clinical time spent by myself addressing the patient's medical issues, reviewing all of her data, and collaborating with patient's care team: 37 minutes Charges/Coding Visit Charges Inpatient E&M: 92207 Subs Hosp L2
[2023-03-05] MEDS: Sucralfate 1 GM Tablet PO ×2 (15:47→22:16)
--- NOTE | 2023-03-05 16:03 | CASEMGMT ---
Social Work SW met with pt to discuss advance directives. Pt states she has a living will and health care POA naming her Jeffrey Escamilla. Pt notified documents arenot on file and requested they be brought in for scanning into medical record. TARIK Stoddard
--- NOTE | 2023-03-05 19:13 | NURSING ---
Spouse at bedside, tube feeding instructions begun with him via demonstration/teachback
[2023-03-05] MEDS: Ondansetron 4 MG/2 ML Vial IV (20:31)
[2023-03-06 02:30] VITALS: BP 147/91; PULSE 96; RESP 16; TEMP 37.2; O2SAT 91
[2023-03-06 04:38] VITALS: BMI 18.9
[2023-03-06] MEDS: Sucralfate 1 GM Tablet PO ×3 (06:32→15:41)
--- NOTE | 2023-03-06 08:00 | PCM.PROGNOTE ---
Subjective Subjective Patient underwent a swallowing study and was discovered to have oropharyngeal dysphagia. Objective Data Objective Data Vital Signs: Vital Signs Temp Pulse Resp BP Pulse Ox O2 Del Method 98.9 F 88 16 142/85 H 98 Room Air 03/06/23 14:45 03/06/23 14:45 03/06/23 14:45 03/06/23 14:45 03/06/23 14:45 03/06/23 14:45 Oxygen Delivery Method Room Air Weight: 113 lb 12.136 oz Body Mass Index (BMI) 18.9 Intake & Output: Intake and Output for Last 24 Hours 03/04/23 03/05/23 03/06/23 23:59 23:59 23:59 Intake Total 4573.75 / 4573.75 186 / 1860 Balance 4573.75 / 4573.75 1859 Medical Nutrition Assessment Dietitian: Malnutrition Criteria Met Start: 03/04/23 16:10 Freq: Status: Active Protocol: Document 03/06/23 12:03 (Rec: 03/06/23 12:05 [id number]) Nutrition Malnutrition Evidence of Malnutrition Exists Yes Malnutrition (severe): Chronic Evidenced By Suboptimal Energy Intake ( Severe),Weight Loss (Severe) Clinical Problem Chronic Disease or Condition Related Malnutrition Etiology chronic, severe malnutrition related to inadequate oral intake d/t swallowing difficulty Signs/Symptoms as evidenced by unintentional 26#/18% wt loss x 5 months; estimated PO intake meeting < 75% of estimated energy needs > 5 months Status Active Problem Recommendation Dietitian Recommendations/Changes For home, recommending 120- 240mL bolus of Osmolite 1.2 5t times per day depending on oral intake. Pt can have 120mL (1/2 carton) or 240mL (full carton) at each feeding pending on PO intake. Given results of swallow study, encouraged full carton (240mL) 5x/day at home w/ 30mL water flush before and after each bolus to provide 1440 calories , 66 grams protein, and 1275mL fluid/day. Per speech thearpy- regular diet (moist purees/thin liquids) for pleasure. Daily weights at home. Dietitian to follow-up next week. Lab / Micro Data Result Diagrams: 03/04/23 09:50 03/05/23 05:45 Physical Exam Narrative alert and no apparent distress Constitutional Narrative: Patient is cachexic General Appearance: cooperative and well developed Orientation / Consciousness: awake, oriented to person and oriented to place HEENT normocephalic, head/scalp atraumatic, hearing grossly normal bilaterally and moist oral mucous membranes Eyes PERRL, EOMs intact bilaterally and conjunctivae normal Neck supple, no JVD, thyroid normal and no carotid bruits General: trachea midline Resp normal respiratory effort, no retractions, no use of accessory muscles and clear to auscultation bilaterally Auscultation: Negative for rales, rhonchi or wheezes Cardio regular rate, regular rhythm, S1 normal heart sound, S2 normal heart sound, no murmurs, no rub and no gallops GI normal to inspection, nondistended, normoactive bowel sounds, soft to palpation, non-tender and non-distended Extremity no clubbing, cyanosis or edema Skin no rashes or lesions noted General Skin Exam: no breakdown Neuro oriented x3, CN's II-XII intact bilaterally, moves all extremities, no focal motor deficits and no sensory deficits noted Sensorium / Orientation: awake, alert, oriented to person and oriented to place Speech: speech normal Psych Psych Narrative: patient exhibits mild cognitive impairement Assessment & Plan Assessment/Plan (1) Dysphagia: (2) CITLALY (acute kidney injury): (3) Hypernatremia: (4) Severe malnutrition: PLAN: -Continue supplements -Dietitian is following (5) Dysphagia: PLAN: Esophageal dysphagia secondary to recurrent esophageal stricture in the lower one third of the distal esophagus. She underwent dilation with 18 mm balloon and treatment with APC to hopefully keep it open. I would recommend a Carafate slurry in order to keep the esophagus open is much as possible. . I also recommended that she see ENT and neurology as she has a significant esophageal dysmotility disorder and the fact that her esophagus does not contract in I would like neurology's and psychiatry's input and regarding possible medication side effects causing severe gastroparesis and esophageal dysmotility. He has made an appointment with ENT for evaluation of her thick mucus that she keeps producing that I believe is contributing to her severe esophagitis and esophageal dysphagia. (6) Gram-negative bacteremia: (7) UTI (urinary tract infection): (8) Debility: (9) Erosive esophagitis: PLAN: . Severe erosive esophagitis refractory to medical therapy secondary to concurrent gastroparesis and hiatal hernia. Would recommend esophageal stent. Patient's says they are totally against a feeding tube. Continue aggressive PPI therapy. Continue antiemetics as previously ordered. (10) Diarrhea: (11) Anemia, unspecified: PLAN: . Her hemoglobin is improving. I suspect part was dilutional and partly his anemia chronic disease. 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 Recommend antidumping diet. PLAN: Plan Esophageal stricture with nausea and vomiting-status post esophageal dilatation, Botox injection, and PEG tube insertion-patient will be placed on a regular diet, tube feeds will be instituted at a low rate by nutritional services. Patient's and the patient will be taught to administer tube feeds. Modified barium swallow will be performed tomorrow by speech therapy Total clinical time spent by myself addressing the patient's medical issues, reviewing all of her data, and collaborating with patient's care team: 37 minutes Charges/Coding Visit Charges Inpatient E&M: 95122 [facility] Hosp L3
[2023-03-06 08:45] VITALS: BP 138/84; PULSE 94; RESP 16; TEMP 37; O2SAT 96
--- NOTE | 2023-03-06 09:12 | NURSING ---
pt off floor for cookie swallow
--- NOTE | 2023-03-06 09:17 | SP.MBSS_ITS ---
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 Medical History: Fior Escamilla is a 72-year-old female with a history of acute renal insufficiency, anemia, bipolar disorder with moderate depression, bladder disease, delirium due to multiple etiologies, diabetes insipidus, difficulty chewing, erosive esophagitis, gastric reflux, generalized weakness, hypertension, pulmonary emboli, severe malnutrition, stenosis of esophagus, and tardive dyskinesia. Patient presented to [facility] on 03/04/23 with dysphagia that has been getting worse over the past 2 days. Pt has participated in MBSS 09/30/2022 which revealed mild oropharyngeal phase dysphagia. Pt did participate in follow up speech therapy for oropharyngeal strengthening and training in use of aspiration and esophageal precautions. Patient states she has required multiple EGDs with esophageal dilatations. Patient states she called Dr. Verma's office and was referred to the emergency department for admission for EGD and possible esophageal dilatation. Patient states she is only able to swallow water. Patient is unable to swallow any foods including breads or soft foods. Patient has a dry cough. Patient referred for speech evaluation due to swallowing difficulty. BSE 03/04/23 recommended NPO due to immediate coughing with 1 sip of thin water followed by expectoration of white, frothy sputum. EGD completed 03/05/23 with successful esophageal dilation, PEG tube placement, and diet advancement as tolerated to full liquid diet. Pt tolerated trials of thin liquids with COLLECTIONS AND ARCHIVES DIRECTOR at bedside and was advanced to full liquid diet. COLLECTIONS AND ARCHIVES DIRECTOR spoke with Dr. Verma via phone call 03/05/2023 re: patient's appropriateness for MBSS to assess aspiration risk and determine pt's ability to safely swallow and clear purees/solids from esophagus as family is inquiring if patient is safe for soft solids. Dr. Verma agreeable to MBSS. Current Diet Ordered: Full liquid diet Dentition: Natural Teeth Respiratory Status: Oxygenating on Room Air - Penetration-Aspiration Scale Penetration-Aspiration Scale: OBJECTIVE ASSESSMENT OF SWALLOW FUNCTION (QUANTITATIVE ? PER TRIAL): PENETRATION / ASPIRATION SCALE (ENGLISH): 1 = does not enter airway 2 = enters airway/above vocal folds/ejected 3 = enters airway/above vocal folds/not ejected 4 = enters airway/contacts vocal folds/ejected 5 = enters airway/contacts vocal folds/not ejected 6 = enters airway/below vocal folds/ejected 7 = enters airway/below vocal folds/not ejected despite effort 8 = enters airway/below vocal folds/no effort VIDEOFLOROSCOPIC SCALE SCORE (ENGLISH): Grade I = aspiration of material that has penetrated into the laryngeal vestibule, intact cough reflex Grade II = aspiration < 10 % of the bolus, intact cough reflex Grade III = aspiration of < 10 % of the bolus, reduced cough reflex or aspiration of > 10 % of the bolus, intact cough reflex Grade IV = aspiration of > 10 % of the bolus, reduced cough reflex - Penetration-Aspiration Scale Score Thin Liquid via teaspoon Result: 2= enter airway/above vocal folds/ejected Thin Liquid via small single sip from cup with esophageal screen Result: 2= enter airway/above vocal folds/ejected Pudding by teaspoon with esophageal screen Result: 1= does not enter airway Comment: ~1/3 of pudding remained in mid esophagus. Thin Liquid via small single sip from cup for liquid wash of pudding with esophageal screen Result: 1= does not enter airway Comment: Minimal pudding retention remained in esophagus. 1/4 Cookie Result: 1= does not enter airway Thin Liquid via small single sip from cup X3 for liquid wash of cookie with esophageal screen Result: 2= enter airway/above vocal folds/ejected Comment: Following first liquid wash ~75% of cookie remained in esophagus. Following second liquid wash <50% of cookie remained in esophagus. Following third liquid wash ~25% of cookie remained in esophagus. - Oral Phase Labial Seal: No Labial Escape Tongue Control During Bolus Hold: Posterior escape of less than half of bolus Bolus Preparation/Mastication: Slow prolonged chewing/mashing with complete recollection Bolus Transport/Lingual Motion: Delayed initiation of tongue motion Oral Residue: Residue collection on oral structures - piecemeal deglutition with cookie and pudding - Pharyngeal Phase Initiation of Pharyngeal Swallow: Bolus head at posterior laryngeal surgace of epiglottis Soft Palate Elevation: No bolus between soft palate and pharyngeal wall Laryngeal Elevation: Comp. Superior move thyroid cart w/comp. apprx arytenoid cart-epig pet Anterior Hyoid Excursion: Complete anterior movement Epiglottic Movement: Partial inversion Laryngeal Vestibule Closure at Height of Swallow: Incomplete; narrow column of air/contrast in laryngeal vestibule Pharyngeal Stripping Wave: Present - diminished Pharyngoesophageal Segment Opening: Parital distension and partial duration; parital obstruction of flow Tongue Base Retraction: Narrow column of contrast between tongue base & post. pharyngeal wall Pharyngeal Residue: Trace residue within or on pharyngeal structures - Esophageal Phase Esophageal Clearance: Esophageal retention w/ retrograde flow below pharyngoesophageal seg. - Diagnosis/Impression Diagnosis: Mild oropharyngeal phase dysphagia (R13.13), Esophageal dysphagia (R13.14) Impression: The oral phase is primarily marked by... -Decreased bolus control with premature posterior loss of <1/2 of liquid boluses to the pharynx prior to swallow onset. -Prolonged, but adequate mastication. -Mild oral residues after the swallow; however, pt did independently clear with independent use of second swallow as needed. The pharyngeal phase is primarily marked by... -Mildly decreased pharyngeal stripping wave, tongue base retraction, and UES opening/duration; however, only trace pharyngeal residue after the swallow. -Trace laryngeal penetration was frequently observed with thin liquid trials; however, it fully ejected from the laryngeal vestibule after the swallow. No aspiration observed. The esophageal phase is primarily marked by... -Esophageal retention of pudding and cookie, more notable with cookie. Pudding mostly cleared with use of 1 liquid wash. Cookie required 3 liquid washes and still ~25% of bolus remained in esophagus. Min retrograde flow of pudding and cookie in esophagus; however, it remained well below the UES. - Recommendations Diet: Puree Textures - MOIST, Thin Liquids Comment: Recommended diet textures are for pleasure feedings. If pt is sensing retention or experiencing s/s of reflux, will recommend pt STOP oral intake and utilize PEG tube to meet nutrition and hydration needs. Compensatory Strategies: Small Bites, Small Sips, Slow Rate, Alternate bites/solids and sips/liquids - 1:2 ratio, Sitting upright, Remain sitting upright for 30 minutes after PO intake Supervision: 1:1 Close Supervision Recommend Repeat Modified Barium Swallow: No Need for Skilled Speech Therapy Services: No Comment: Patient participated in speech therapy this fall for oropharyngeal exercise prog aj. Per , they still have exercise program and feels she can complete the exercise program. COLLECTIONS AND ARCHIVES DIRECTOR recommended maintenance oropharyngeal exercise program 3X/week to maintain optimal swallow function of the oral and pharyngeal phases. Pt and agreeable to recommendations. Education Completed: 1. Described result of evaluation., 6. Family/caregivers demonstrate recommended strategies. - Status Active ST Patient: Active - Contact Information [facility] Speech Therapy:: Tresa Frank M.A. [facility]-COLLECTIONS AND ARCHIVES DIRECTOR Speech-Language Pathologist [facility] [address] [place] [address] [email or web address] [phone] 03/06/23 11:30
[2023-03-06] MEDS: Heparin Injection (Vial) 5,000 UNIT/ML VIAL 5000 UNIT SC (10:25)
[2023-03-06] MEDS: Memantine Hydrochloride 10 MG Tablet PO (10:26)
[2023-03-06] MEDS: lamoTRIgine 100 MG Tablet 200 MG PO (10:26)
[2023-03-06] MEDS: Polyethylene Glycol 3350 17 GM PACKET PO (10:26)
[2023-03-06] MEDS: Methimazole 5 MG Tablet PO (10:27)
[2023-03-06] MEDS: Cinacalcet HCl 30 MG Tablet PO (10:27)
[2023-03-06] MEDS: LORazepam 1 MG Tablet 2 MG PO (10:43)
--- NOTE | 2023-03-06 11:15 | CASEMGMT ---
Addendum entered by Tan Al 03/06/23 16:50: ALEXEY MARTIN NOTE: To room to notify pt and about [facility] and possible delivery of Osmolite Thursday. Pt sleeping. @ bedside. voices concern re: pt unable to eat her lunch, is having a lot of phlegm, had an emesis, and that her balance is off. states, She's a lot worse than when she came in. Dr Rivers made aware of all of the above and states he will go to pt's room to talk w/. Addendum entered by Tan Al 03/06/23 16:43: Spoke w/Vicenta @ [facility]. She was made aware pt is discharging today. She states it will most likely be early Thursday until delivery of Osmolite to pt. She states she will reach out to pt or to notify them. Original Note: ALEXEY MARTIN NOTE: RN VERONICA to room. Pt resting in bed. @ bedside. states [facility] has scheduled an appt to come see pt tomorrow. brought HCPVÍCTOR and LW paperwork in, copies made and placed on chart, and originals given back to pt. No response from [facility] at this time re: insurance benefits and re: when Osmolite will be available to delivery to pt's home. Call placed to [facility]. No answer. for return call. Rufina, it account manager, has arranged for 3 bottles of Osmolite 1.2 to be delivered to pt's room from [facility] pharmacy today for pt to take home to use until [facility] can deliver more to pt's home. Rufina states she will f/u with pt and on to inquire if pt had received delivery of Osmolite from [facility]. Swallow study has been completed. Puree diet w/thin liq is recommended. Pt and aware. Per ST Tresa, no need for further OP ST at this time. and pt state all of their questions have been answered and they feel comfortable w/pt discharging home. Shanna CHICASN ALEXEY MARTIN
[2023-03-06] MEDS: Ondansetron 4 MG/2 ML Vial IV (12:13)
[2023-03-06 14:45] VITALS: BP 142/85; PULSE 88; RESP 16; TEMP 37.2; O2SAT 98
--- NOTE | 2023-03-06 16:19 | PCM.DC ---
Discharge Instructions Diet Discharge Diet: - (pureed with thin liquids) Activity Discharge Activity: Return to Normal Activity Weight Bearing Status: Full weight bearing Follow Up Care Test Results: Test results from this visit will be discussed in further detail at your follow-up appointment, if applicable. Discharge Plan Admission Admit Date/Time: 03/04/23 13:47 Primary Reason for Your Visit: esophageal stenosis Attending Provider: Edinson Rivers Primary Care Provider: Jay Kincaid TELESCOPE MAINTENANCE Instructions Patient Instructions: Gastrostomy Feeding Tube Care ..., Bolus Tube Feeding, Tube Feeding: Skin and Mouth Care, Understanding PEG Tube Feeding Additional Instructions / Restrictions: Tube feedings as instructed Discharge Orders/Prescriptions Prescriptions: New Osmolite 1.2 Mp 0.06 gram-1.2 kcal/mL Liquid 120 ml G-tube 5X/DAY Qty: 0 0RF ondansetron HCl 4 mg tablet 4 mg PO Q6H PRN (Reason: nausea and vomiting) Qty: 30 0RF losartan 25 mg tablet 25 mg PO DAILY Qty: 90 0RF Continued methimazole 5 MG tablet 5 mg PO SUMOWEFR cinacalcet 30 MG tablet 30 mg PO SUMOWEFR memantine 10 MG tablet 10 mg PO DAILY oxybutynin chloride 15 mg tablet extended release 24hr 15 mg PO DAILY Label Comments: take 1 tablet by mouth every morning polyethylene glycol 3350 [Miralax] 17 gram/dose Powder 17 g PO DAILY Prolia 60 mg/mL Syringe 60 mg SUBCUT .Q6MO lamotrigine 100 mg tablet 200 mg PO DAILY Label Comments: take 1 tablet by mouth once daily for 2 WEEKS then INCREASE to 1 ... (REFER TO PRESCRIPTION NOTES). lorazepam 2 mg tablet 2 mg PO 4XD PRN (Reason: AGITATION) Qty: 1 0RF Label Comments: take 1 tablet by mouth four times a day if needed for anxiety ferrous sulfate 325 MG tablet 325 mg PO QODAY Qty: 30 0RF pantoprazole 40 mg tablet,delayed release (DR/EC) 40 mg PO BID Label Comments: take 1 tablet by mouth twice a day sucralfate 100 mg/mL suspension 10 ml PO QACHS Discontinued famotidine 20 mg tablet 20 mg PO BID Qty: 60 2RF Referrals / Follow Up: Francis Verma DO [Med Staff - Active Staff] - Within 2 Weeks Jay Kincaid TELESCOPE MAINTENANCE, TELESCOPE MAINTENANCE-C [Primary Care Provider] - Within 2 Weeks Disposition Disposition (needs filled in before D/C Order can be placed): Home Health Service
--- NOTE | 2023-03-06 16:38 | DS.PCM_ITS ---
Providers Date of Admission: 03/04/23 Date of Discharge: 03/06/23 Primary Care Physician: Jay Kincaid, CARMENZA-C Consultations 03/04/23 14:52 Consult: Gastroenterology Routine Consulting Provider: Hilda G[facility] Reason for Consult: esophageal stricture EMERGENT Consult: No MD Notified: Yes Date Notified: 03/04/23 Time Notified: 13:57 Method of Notification: Verbal Reason For Visit: DYSPHAGIA Diagnosis Discharge Diagnosis (1) Dysphagia: Status: Acute Code(s): R13.10 - Dysphagia, unspecified Plan 1. Esophageal stricture with nausea and vomiting-status post esophageal dilatation, Botox injection, and PEG tube insertion-patient will be placed on a regular diet, tube feeds will be instituted at a low rate by nutritional service s. Patient's and the patient will be taught to administer tube feeds. Modified barium swallow will be performed tomorrow by speech therapy #2 chronic kidney disease stage IV-complicates care, medical course, recovery, and prognosis, labs will be monitored #3 hypercalcemia secondary to hyperparathyroidism from chronic renal disease- patient does not need treatment for the hypercalcemia at this time, calcium levels will be monitored as necessary, calcium level today was 11.7 #4 hypokalemia-corrected at this time #5 bipolar disorder-patient will remain on her current medications if she is able to have oral intake #6 gastroparesis-complicates care, medical course, recovery, and prognosis #7 chronic severe protein and caloric malnutrition-as evidenced by unintentional 26 pound weight loss x5 months and estimated p.o. intake meeting less than 75% of estimated energy needs for over 5 months-Osmolite 1.2-120 mL bolus 5 times a day with 30 cc water flush before and after each bolus to provide 720 breanne, 33 g of protein and 792 mL total fluid per day, regular diet was ordered for the patient also #8 mild cognitive impairment-probably secondary to psychiatric illness, complicates care, medical course, recovery, and prognosis Total clinical time spent by myself addressing the patient's medical issues, reviewing all of her data, and collaborating with patient's care team: 37 minutes Medications at Discharge Home Medications cinacalcet 30 mg tablet 30 mg PO SUMOWEFR THYROID 10/04/20 methimazole 5 mg tablet 5 mg PO SUMOWEFR Check with primary doctor 10/04/20 memantine 10 mg tablet 10 mg PO DAILY Check with primary doctor 01/03/21 denosumab 60 mg/mL subcutaneous syringe (Prolia) 60 mg subcut .Q6MO . 09/05/22 oxybutynin chloride 15 mg tablet,extended release 24 hr 15 mg PO DAILY . 09/05/22 polyethylene glycol 3350 17 gram/dose oral powder (Miralax) 17 g PO DAILY LAXATIVE 09/05/22 lamotrigine 100 mg tablet 200 mg PO DAILY . 12/15/22 ferrous sulfate 325 mg (65 mg iron) tablet 325 mg PO QODAY SUPPLEMENT #30 tabs 12/24/22 lorazepam 2 mg tablet 2 mg PO 4XD PRN AGITATION #1 TAB 12/24/22 pantoprazole 40 mg tablet,delayed release 40 mg PO BID stomach 01/14/23 sucralfate 100 mg/mL oral suspension 10 ml PO QACHS Check with primary doctor 01/30/23 losartan 25 mg tablet 25 mg PO DAILY #90 tabs 03/06/23 nutritional supplements 0.06 gram-1.2 kcal/mL oral liquid (Osmolite 1.2 Breanne) 120 ml G-tube 5X/DAY #0 mL 03/06/23 ondansetron HCl 4 mg tablet 4 mg PO Q6H PRN nausea and vomiting #30 tabs 03/06 Hospital Course Operations None Procedures EGD and Peg tube placement Summary of Care Provided Minutes Spent on Discharge: 32 Hospital Course: This 72-year-old white female was seen in the emergency room at [facility] after being sent in by her physical therapy director due to persistent vomiting and difficulty swallowing. Patient has a long history of esophageal stricture, she is also malnourished. Patient was placed into observation status on [facility] 3, conversations were carried out with the patient and her regarding the need for PEG tube placement for nutritional support and there was agreement that this should be carried out. Patient underwent an EGD with esophageal dilatation and injection of Botox and PEG tube placement, she tolerated the procedure well and the was instructed on administration of tube feeds. On 03/06/2023, patient was seen and examined:alert and no apparent distress Constitutional Narrative: Patient is cachexic General Appearance: cooperative and well developed Orientation / Consciousness: awake, oriented to person and oriented to place HEENT normocephalic, head/scalp atraumatic, hearing grossly normal bilaterally and moist oral mucous membranes Eyes PERRL, EOMs intact bilaterally and conjunctivae normal Neck supple, no JVD, thyroid normal and no carotid bruits General: trachea midline Resp normal respiratory effort, no retractions, no use of accessory muscles and clear to auscultation bilaterally Auscultation: Negative for rales, rhonchi or wheezes Cardio regular rate, regular rhythm, S1 normal heart sound, S2 normal heart sound, no murmurs, no rub and no gallops GI normal to inspection, nondistended, normoactive bowel sounds, soft to palpation, non-tender and non-distended Extremity no clubbing, cyanosis or edema Skin no rashes or lesions noted General Skin Exam: no breakdown Neuro oriented x3, CN's II-XII intact bilaterally, moves all extremities, no focal motor deficits and no sensory deficits noted Sensorium / Orientation: awake, alert, oriented to person and oriented to place Speech: speech normal Psych Psych Narrative: patient exhibits mild cognitive impairement Patient was discharged in stable condition on 03/06/2023. Medical Records Data Medical Nutrition Assessment Dietitian: Malnutrition Criteria Met Start: 03/04/23 16:10 Freq: Status: Active Protocol: Document 03/06/23 12:03 (Rec: 03/06/23 12:05 [id number]) Nutrition Malnutrition Evidence of Malnutrition Exists Yes Malnutrition (severe): Chronic Evidenced By Suboptimal Energy Intake ( Severe),Weight Loss (Severe) Clinical Problem Chronic Disease or Condition Related Malnutrition Etiology chronic, severe malnutrition related to inadequate oral intake d/t swallowing difficulty Signs/Symptoms as evidenced by unintentional 26#/18% wt loss x 5 months; estimated PO intake meeting < 75% of estimated energy needs > 5 months Status Active Problem Recommendation Dietitian Recommendations/Changes For home, recommending 120- 240mL bolus of Osmolite 1.2 5t times per day depending on oral intake. Pt can have 120mL (1/2 carton) or 240mL (full carton) at each feeding pending on PO intake. Given results of swallow study, encouraged full carton (240mL) 5x/day at home w/ 30mL water flush before and after each bolus to provide 1440 calories , 66 grams protein, and 1275mL fluid/day. Per speech thearpy- regular diet (moist purees/thin liquids) for pleasure. Daily weights at home. Dietitian to follow-up next week. Weight / BMI Weight Weight: 51.6 kg Body Mass Index (BMI) 18.9 ABG / Lab / Microbiology Data Result Diagrams: 03/04/23 09:50 03/05/23 05:45 D/C Instructions Discharge Diet: - (pureed with thin liquids) Weight Bearing Status: Full weight bearing Meaningful Use Info Meaningful Use Diagnoses (Choose all that apply): None applicable Discharge Plan Admission Admit Date/Time: 03/04/23 13:47 Primary Reason for Your Visit: esophageal stenosis Attending Provider: Edinson Rivers Primary Care Provider: Jay Kincaid TRIM TECHNICIAN Instructions Patient Instructions: Gastrostomy Feeding Tube Care ..., Bolus Tube Feeding, T ube Feeding: Skin and Mouth Care, Understanding PEG Tube Feeding Additional Instructions / Restrictions: Tube feedings as instructed Discharge Orders/Prescriptions Prescriptions: New Osmolite 1.2 Breanne 0.06 gram-1.2 kcal/mL Liquid 120 ml G-tube 5X/DAY Qty: 0 0RF ondansetron HCl 4 mg tablet 4 mg PO Q6H PRN (Reason: nausea and vomiting) Qty: 30 0RF losartan 25 mg tablet 25 mg PO DAILY Qty: 90 0RF Continued methimazole 5 MG tablet 5 mg PO SUMOWEFR cinacalcet 30 MG tablet 30 mg PO SUMOWEFR memantine 10 MG tablet 10 mg PO DAILY oxybutynin chloride 15 mg tablet extended release 24hr 15 mg PO DAILY Label Comments: take 1 tablet by mouth every morning polyethylene glycol 3350 [Miralax] 17 gram/dose Powder 17 g PO DAILY Prolia 60 mg/mL Syringe 60 mg SUBCUT .Q6MO lamotrigine 100 mg tablet 200 mg PO DAILY Label Comments: take 1 tablet by mouth once daily for 2 WEEKS then INCREASE to 1 ... (REFER TO PRESCRIPTION NOTES). lorazepam 2 mg tablet 2 mg PO 4XD PRN (Reason: AGITATION) Qty: 1 0RF Label Comments: take 1 tablet by mouth four times a day if needed for anxiety ferrous sulfate 325 MG tablet 325 mg PO QODAY Qty: 30 0RF pantoprazole 40 mg tablet,delayed release (DR/EC) 40 mg PO BID Label Comments: take 1 tablet by mouth twice a day sucralfate 100 mg/mL suspension 10 ml PO QACHS Discontinued famotidine 20 mg tablet 20 mg PO BID Qty: 60 2RF Referrals / Follow Up: Francis Verma DO [Med Staff - Active Staff] - Within 2 Weeks Jay Kincaid TRIM TECHNICIAN, TRIM TECHNICIAN-C [Primary Care Provider] - Within 2 Weeks Disposition Disposition (needs filled in before D/C Order can be placed): Home Health Service Charges/Coding Visit Charges Inpatient E&M: 36725 Disch Hosp >30min
== END 2023-03-06 17:26 | disposition home health service (06) ==
LOC: ED 12:03 → MS3 13:13
PROVIDERS: Anesthesiology; Internal Medicine Gastroenterology; Admitting Provider Internal Medicine; Emergency Provider Emergency Medicine; PCP Nurse Practitioner Family; Visit Provider Internal Medicine
PROC: 0DJ08ZZ Inspection of Upper Intestinal Tract, Via Natural or Artificial Opening Endoscopic (ICD-10-PCS; CPT 43235; principal; 2023-03-05 06:55)
DX: K22.2 Esophageal obstruction (principal); G21.9 Secondary parkinsonism, unspecified; E43 Unspecified severe protein-calorie malnutrition; F31.9 Bipolar disorder, unspecified; N18.4 Chronic kidney disease, stage 4 (severe); N25.81 Secondary hyperparathyroidism of renal origin; E23.2 Diabetes insipidus; K44.9 Diaphragmatic hernia without obstruction or gangrene; E03.9 Hypothyroidism, unspecified; R11.2 Nausea with vomiting, unspecified; E86.0 Dehydration; Z87.891 Personal history of nicotine dependence; K21.9 Gastro-esophageal reflux disease without esophagitis; I12.9 Hypertensive chronic kidney disease with stage 1 through stage 4 chronic kidney disease, or unspecified chronic kidney disease; R13.10 Dysphagia, unspecified; R53.81 Other malaise; E87.0 Hyperosmolality and hypernatremia; Z79.899 Other long term (current) drug therapy; Z68.1 Body mass index [BMI] 19.9 or less, adult; D50.9 Iron deficiency anemia, unspecified; E87.6 Hypokalemia; K31.84 Gastroparesis; Z86.711 Personal history of pulmonary embolism; G62.9 Polyneuropathy, unspecified; F41.9 Anxiety disorder, unspecified
CPT/HCPCS: 43249; 43246; 36415; 71045; 74230; 80048; 81001; 82962; 83036; 84100; 84443; 85025; 92526; 92610; 92611; 93005; 96365; 96366; 96367; 96372; 96375; 96376; 97802; 97803; 99221; 99284; J7120; A4216; G0378; J2405

== ENCOUNTER 2023-03-07 01:54 | Inpatient (IN) | payer MEDICARE, SELFPAY ==
[2023-03-07] VITALS (44 sets, daily range): BP systolic 78–159; BP diastolic 52–88; PULSE 89–126; RESP 12–30; TEMP 36.8–38; O2SAT 78–100; BMI 19.4; BMI 20.7; BMI 20.8
[2023-03-07 02:33] LABS: Absolute Lymphocyte Count 0.56 X10^3/uL (0.83-4.51); Absolute Neutrophil Count 1.9 X10^3/uL (2.0-7.7); Basophil# 0.01 X10^3/uL; Basophil% 0.4 % (0-1); Hematocrit 33.1 % (37-47); Hemoglobin 10.2 g/dL (12.0-15.0); Lymphocyte # 0.56 X10^3/ul (0.83-4.51); Lymphocyte % 19.7 % (19-41); Mean Corp Hgb Conc 30.8 g/dL (32-36); Mean Corpuscular Hgb 28.5 pg (27.0-32.0); Mean Corpuscular Volume 92.5 fL (81-99); Mean Platelet Vol. 9.1 fl (6.2-12.0); Monocyte# 0.32 X10^3/uL; Monocyte% 11.3 % (0-10); NRBC Flagged by Analyzer 0 % (0-5); Neutrophil # 1.93 X10^3/uL (2.7-7.7); Neutrophil % 67.9 % (47-70); POSITIVE DIFFERENTIAL YES; POSITIVE MORPHOLOGY YES; Platelet Count 216 K/mm3 (150-450); RBC Distribution Width CV 13.9 % (11.6-14.6); RBC Distribution Width SD 47.4 fl (35.1-43.9); Red Blood Count 3.58 M/mm3 (4.2-5.4); White Blood Count 2.8 K/mm3 (4.4-11.0)
[2023-03-07 02:36] LABS: Differential Indicated SCAN CRITERIA MET
--- NOTE | 2023-03-07 02:40 | RAD_ITS ---
INDICATION: dyspnea EXAMINATION/TECHNIQUE: X-RAY - XR Chest 1 View COMPARISON: FINDINGS: LINES/DEVICES: None. LUNGS: Patchy airspace opacities in the right upper lobe, right lower lobe and left lower lobe suggesting bilateral pneumonia. MEDIASTINUM AND CARDIOVASCULAR STRUCTURES: Cardiac silhouette not enlarged. Central airways and mediastinal contour are unremarkable. BONES AND SOFT TISSUES: Unremarkable. RAD/Chest 1 View (Portable) IMPRESSION: Bilateral pneumonia. Electronically Signed: Jud Keenan MD at 3:17 EDT ,
[2023-03-07 02:51] LABS: Prothrombin Time (Protime)PT. 13.4 SECONDS (11.7-14.9)
[2023-03-07 02:52] LABS: Partial Thromboplast Time 27.1 Seconds (24.1-36.2)
[2023-03-07 03:03] LABS: Anion Gap 4 (5-15); BUN 30 mg/dL (7-18); BUN/Creat Ratio 13.1 RATIO (10-20); Calcium,Total 11.7 mg/dL (8.5-10.1); Chloride 113 mmol/L (98-107); Creatinine, Serum 2.29 mg/dL (0.55-1.02); EST Glomerular Filtration Rate 22 mL/min (>60); Est Glom Filt Rate - Afr Amer 27 mL/min (>60); Glucose 134 mg/dL (74-106); Magnesium 1.8 mg/dL (1.6-2.6); Potassium 3.9 mmol/L (3.5-5.1); Sodium Level 143 mmol/L (136-145)
[2023-03-07 03:14] LABS: D-Dimer Quantitative (DVT/PE) 4.99 FEU/ug/m (0.27-0.49)
[2023-03-07 03:35] LABS: Differential Comment SCANNED
[2023-03-07] MEDS: 0.9% Normal Saline 1,000 ML 999 ML IV (03:42)
[2023-03-07 04:05] LABS: Lactic Acid 2.7 mmol/L (0.4-1.9)
--- NOTE | 2023-03-07 04:54 | EX.ED.DYSGE1 ---
HPI History of Present Illness Chief Complaint: Nausea/Vomiting Narrative Narrative: Patient is a 72-year-old female with past medical history of chronic kidney disease nondiabetic gastroparesis and debility. She was recent admitted to the hospital secondary to recurrent nausea and vomiting and at that time had to have a PEG tube placed to try to help reduce symptoms and she also underwent esophageal dilation. She was discharged Thursday around 6 PM according to family. Since returning home patients have persistent bouts of vomiting and she seemed to be dizzy and off according to . states last time she was like this her sodium was elevated and he is concerned for this once again and therefore she was brought back in the hospital for repeat evaluation [facility] Medical History Acute renal insufficiency CITLALY (acute kidney injury) Anemia Anxiety Back pain Bipolar disorder Bipolar disorder with moderate depression Bladder disease Delirium due to multiple etiologies Diabetes insipidus Dietary restriction Difficulty chewing Erosive esophagitis Falls Former smoker Gastric reflux Gastroparesis Generalized weakness Gram-negative bacteremia History of edema History of herpes zoster History of hiatal hernia Hypercalcemia Hypernatremia Hypertension Post-menopausal Pulmonary emboli Secondary hyperparathyroidism of renal origin Severe malnutrition Severe malnutrition Stenosis of esophagus Tardive dyskinesia Thyroid disease Unsteady gait UTI (urinary tract infection) Wears glasses Home Medications cinacalcet 30 mg tablet 30 mg PO SUMOWEFR THYROID 10/04/20 [History Last Taken 01/14/23] methimazole 5 mg tablet 5 mg PO SUMOWEFR Check with primary doctor 10/04/20 [History Last Taken 01/14/23] memantine 10 mg tablet 10 mg PO DAILY Check with primary doctor 01/03/21 [History Last Taken 01/14/23] denosumab 60 mg/mL subcutaneous syringe (Prolia) 60 mg subcut .Q6MO . 09/05/22 [History Last Taken 08/27/22] oxybutynin chloride 15 mg tablet,extended release 24 hr 15 mg PO DAILY . 09/05/22 [History Last Taken 01/14/23] polyethylene glycol 3350 17 gram/dose oral powder (Miralax) 17 g PO DAILY LAXATIVE 09/05/22 [History Last Taken 09/05/22] lamotrigine 100 mg tablet 200 mg PO DAILY . 12/15/22 [History Last Taken 01/14/23] ferrous sulfate 325 mg (65 mg iron) tablet 325 mg PO QODAY SUPPLEMENT #30 tabs 12/24/22 [Rx Last Taken 01/13/23] lorazepam 2 mg tablet 2 mg PO 4XD PRN AGITATION #1 TAB 12/24/22 [Rx Last Taken 01/13/23] pantoprazole 40 mg tablet,delayed release 40 mg PO BID stomach 01/14/23 [History Last Taken 01/13/23] sucralfate 100 mg/mL oral suspension 10 ml PO QACHS Check with primary doctor 01/30/23 [History Last Taken Unknown] losartan 25 mg tablet 25 mg PO DAILY #90 tabs 03/06/23 [Rx Last Taken Unknown] nutritional supplements 0.06 gram-1.2 kcal/mL oral liquid (Osmolite 1.2 Mp) 120 ml G-tube 5X/DAY #0 mL 03/06/23 [Rx Last Taken Unknown] ondansetron HCl 4 mg tablet 4 mg PO Q6H PRN nausea and vomiting #30 tabs 03/06/23 [Rx Last Taken Unknown] Allergy/AdvReac Type Severity Reaction Status Date / Time No Known Allergies Allergy Verified 03/04/23 09:26 Family History Father CVA (cerebral vascular accident) Sister CVA (cerebral vascular accident) Cancer Surgical History History of esophagogastroduodenoscopy (EGD) Hx of esophagogastroduodenoscopy Social History household members: spouse housing: house Smoking Status: Former smoker Tobacco: How many years used: 4 second hand exposure: Yes alcohol intake: never substance use type: does not use what type of physical activity do you participate in: other details: OT [facility] [place] frequency: daily valentina/religious: Congregational seatbelt use: always additional social history: Ambulates at baseline without assistive device ROS ROS ED Constitutional Constitutional ED: Denies chills or fever(s) ENT ENT ED: Reports rhinorrhea; Denies sore throat Cardiovascular Cardiovascular: Denies chest pain Respiratory/Chest Respiratory/Chest: Reports cough and dyspnea Gastrointestinal Gastrointestinal: Reports nausea and vomiting; Denies abdominal pain or diarrhea Genitourinary Genitourinary ED: Denies dysuria Musculoskeletal Musculoskeletal: Denies myalgias Integumentary Denies rash Neurologic Neurologic: Reports weakness; Denies headache(s) Hematologic/Lymphatic Hematologic/Lymphatic: Denies easy bleeding or easy bruising EXAM Physical Exam Const Vital Signs: 03/07/23 01:56 03/07/23 02:02 03/07/23 02:07 Temperature 99.8 F H Temperature Source Oral Pulse Rate 126 H 123 H 91 Respiratory Rate 22 H 22 H 27 H Blood Pressure 107/78 Blood Pressure Mean 87 Pulse Ox 78 88 92 Oxygen Delivery Method Room Air Nasal Cannula Non-Rebreather Oxygen Flow Rate (L/min) 6 03/07/23 02:28 03/07/23 02:35 03/07/23 02:48 Temperature 100.3 F H 98.7 F Temperature Source Temporal Temporal Pulse Rate 114 H 112 H 115 H Respiratory Rate 28 H 28 H 29 H Blood Pressure 91/68 94/68 98/76 Blood Pressure Mean 75 76 83 Pulse Ox 93 94 95 Oxygen Delivery Method Non-Rebreather High Flow High Flow Oxygen Flow Rate (L/min) 10 10 03/07/23 03:16 03/07/23 04:00 Temperature 98.7 F Temperature Source Temporal Pulse Rate 105 H Respiratory Rate 26 H Blood Pressure 115/65 Blood Pressure Mean 81 Pulse Ox 93 95 Oxygen Delivery Method High Flow High Flow Oxygen Flow Rate (L/min) 8 10 Positive well nourished and well developed General Appearance ED: well developed and pallor HEENT HEENT Narrative: No tongue or lip swelling noted no oral lesions no airway edema or compromise. Eyes PERRL and EOMs intact bilaterally General Eye ED: Yes pale conjunctiva Neck supple and no JVD Chest Wall palpation of chest normal Chest Narrative: No bony deformity or crepitus noted Resp Resp Narrative: Patient is in respiratory distress with tachypnea and accessory muscle use. Breath sounds are severely diminished throughout with diffuse rhonchi greatest on the right Cardio regular rhythm Rate: tachycardic GI normal to inspection, nondistended, normoactive bowel sounds, non-tender, non-distended and no masses GI Narrative: PEG tube in place without surrounding secondary soft tissue changes at the insertion site to suggest infection Auscultation: normoactive bowel sounds Palpation: soft Extremity Extremity Narrative: Trace pitting edema to the bilateral lower extremities that is equal and symmetric Neuro oriented x3 and CN's II-XII intact bilaterally Sensorium / Orientation: alert Psych mental status grossly normal Skin no rashes or lesions noted General Skin Exam: pallor MDM MDM MDM Narrative Medical decision making narrative: Patient presented to the hospital with a room air pulse ox of 76%. She does not have history of lung disorder nor does she need supplemental oxygen. With her recent hospitalization and reports of vomiting there is concern for aspiration pneumonia versus pulmonary embolus or congestive heart failure pleural effusion especially with her history of chronic kidney disease. Secondary to this a basic work-up was started. White count has dropped to 2.8 her lactic is elevated at 2.7 and creatinine is near his baseline at 2.29 with hemoglobin also low but at his baseline. Chest x-ray shows now bilateral pneumonia greatest in the right concerning for aspiration. She was started on Unasyn secondary to this and vancomycin was added as she does trigger sepsis criteria. She was placed on 8 to 10 L high flow nasal cannula and her pulse ox improved into the mid 90s. At this time as she is requiring supplemental oxygen which she does not normally need and has septic changes based on vital signs and blood work she is not safe for discharge and therefore will be readmitted to the hospital for further care. The case was discussed with medicine on-call who is agreeable to admission and recommends ICU based on her need for high flow nasal cannula and symptoms. History & Record Review Discussion w/independent historian: Patient and Family Lab Data Attestation: I reviewed the patient's lab results. Labs: Laboratory Results - last 24 hr 03/07/23 03/07/23 03/07/23 02:23 02:23 02:23 WBC 2.8 L RBC 3.58 L Hgb 10.2 L Hct 33.1 L MCV 92.5 MCH 28.5 MCHC 30.8 L RDW Std Deviation 47.4 H RDW Coeff of Lee 13.9 Plt Count 216 MPV 9.1 Immature Gran % (Auto) 0.700 Neut % (Auto) 67.9 Lymph % (Auto) 19.7 [place] % (Auto) 11.3 H Eos % (Auto) 0.0 Baso % (Auto) 0.4 Absolute Neuts (auto) 1.9 L Absolute Lymphs (auto) 0.56 L Nucleated RBC % 0 Differential Comment SCANNED Diff Path Review May foll PT 13.4 INR 1.0 APTT 27.1 D-Dimer Quant (PE/DVT) 4.99 H* Sodium 143 Potassium 3.9 Chloride 113 H Carbon Dioxide 26.0 Anion Gap 4 L BUN 30 H Creatinine 2.29 H Est GFR (MDRD) Af Amer 27 L Est GFR (MDRD) Non-Af 22 L BUN/Creatinine Ratio 13.1 Glucose 134 H Lactic Acid Calcium 11.7 H Magnesium 1.8 03/07/23 02:30 WBC RBC Hgb Hct MCV MCH MCHC RDW Std Deviation RDW Coeff of Lee Plt Count MPV Immature Gran % (Auto) Neut % (Auto) Lymph % (Auto) [place] % (Auto) Eos % (Auto) Baso % (Auto) Absolute Neuts (auto) Absolute Lymphs (auto) Nucleated RBC % Differential Comment Diff Path Review PT INR APTT D-Dimer Quant (PE/DVT) Sodium Potassium Chloride Carbon Dioxide Anion Gap BUN Creatinine Est GFR (MDRD) Af Amer Est GFR (MDRD) Non-Af BUN/Creatinine Ratio Glucose Lactic Acid 2.7 H* Calcium Magnesium Radiography Diagnostic Testing: Clinical Impression(s) from Imaging Studies Chest X-Ray 03/07/23 02:40 IMPRESSION: Bilateral pneumonia. Electronically Signed: Jud Keenan MD at 3:17 EDT , Chest x-ray as interpreted by the emergency medicine physician reveals bilateral pneumonia greatest on the right Management Discussion w/another healthcare provider: Hospitalist Critical Care Time Critical Care Time: Yes Critical care time (excluding procedures): Discussing w/Patient &/or Family/Technology Lead, Discussing w/Consultants and - (Please note critical care time of 31 minutes) Discharge Plan Dx/Rx/DC Orders Clinical Impression: Sepsis, Bilateral pneumonia, Acute respiratory failure with hypoxia, CKD (chronic kidney disease), stage III, Nondiabetic gastroparesis Disposition Disposition: Acute Care Hospital [facility] Discharge Date/Time: 03/07/23 05:40
--- NOTE | 2023-03-07 05:00 | PCM.HP.STD ---
HPI - General General Date of Admission: 03/07/23 Date of Service: 03/07/23 Chief Complaint: Shortness of breath HPI Narrative SIMONA HERNANDEZ, is a 72 F with a significant history of gastroparesis who had an EGD and PEG tube placement on 03/05/2023 and discharged from the hospital around 6 PM on 03/06/2023 returning to the hospital at 0154 on 03/07/2023 with shortness of breath. Associated with her symptoms is progressively worsening weakness and imbalance. Family reported that before patient left the hospital she vomited. When she went home too she vomited and brought up what looks like tube feeding that was recently started. Also patient had very loose runny stool. [facility] Medical History Acute renal insufficiency CITLALY (acute kidney injury) Anemia Anxiety Back pain Bipolar disorder Bipolar disorder with moderate depression Bladder disease Delirium due to multiple etiologies Diabetes insipidus Dietary restriction Difficulty chewing Erosive esophagitis Falls Former smoker Gastric reflux Gastroparesis Generalized weakness Gram-negative bacteremia History of edema History of herpes zoster History of hiatal hernia Hypercalcemia Hypernatremia Hypertension Post-menopausal Pulmonary emboli Secondary hyperparathyroidism of renal origin Severe malnutrition Severe malnutrition Stenosis of esophagus Tardive dyskinesia Thyroid disease Unsteady gait UTI (urinary tract infection) Wears glasses Home Medications cinacalcet 30 mg tablet 30 mg PO SUMOWEFR THYROID 10/04/20 [History Last Taken 01/14/23] methimazole 5 mg tablet 5 mg PO SUMOWEFR Check with primary doctor 10/04/20 [History Last Taken 01/14/23] memantine 10 mg tablet 10 mg PO DAILY Check with primary doctor 01/03/21 [History Last Taken 01/14/23] denosumab 60 mg/mL subcutaneous syringe (Prolia) 60 mg subcut .Q6MO . 09/05/22 [History Last Taken 08/27/22] oxybutynin chloride 15 mg tablet,extended release 24 hr 15 mg PO DAILY . 09/05/22 [History Last Taken 01/14/23] polyethylene glycol 3350 17 gram/dose oral powder (Miralax) 17 g PO DAILY LAXATIVE 09/05/22 [History Last Taken 09/05/22] lamotrigine 100 mg tablet 200 mg PO DAILY . 12/15/22 [History Last Taken 01/14/23] ferrous sulfate 325 mg (65 mg iron) tablet 325 mg PO QODAY SUPPLEMENT #30 tabs 12/24/22 [Rx Last Taken 01/13/23] lorazepam 2 mg tablet 2 mg PO 4XD PRN AGITATION #1 TAB 12/24/22 [Rx Last Taken 01/13/23] pantoprazole 40 mg tablet,delayed release 40 mg PO BID stomach 01/14/23 [History Last Taken 01/13/23] sucralfate 100 mg/mL oral suspension 10 ml PO QACHS Check with primary doctor 01/30/23 [History Last Taken Unknown] losartan 25 mg tablet 25 mg PO DAILY #90 tabs 03/06/23 [Rx Last Taken Unknown] nutritional supplements 0.06 gram-1.2 kcal/mL oral liquid (Osmolite 1.2 Mp) 120 ml G-tube 5X/DAY #0 mL 03/06/23 [Rx Last Taken Unknown] ondansetron HCl 4 mg tablet 4 mg PO Q6H PRN nausea and vomiting #30 tabs 03/06/23 [Rx Last Taken Unknown] Allergy/AdvReac Type Severity Reaction Status Date / Time No Known Allergies Allergy Verified 03/04/23 09:26 Family History Father CVA (cerebral vascular accident) Sister CVA (cerebral vascular accident) Cancer Surgical History History of esophagogastroduodenoscopy (EGD) Hx of esophagogastroduodenoscopy Social History household members: spouse housing: house Smoking Status: Former smoker Tobacco: How many years used: 4 second hand exposure: Yes alcohol intake: never substance use type: does not use what type of physical activity do you participate in: other details: OT - [facility] [place] frequency: daily valentina/rastafari: Nondenominational seatbelt use: always additional social history: Ambulates at baseline without assistive device ROS ROS Narrative Pertinent positives and pertinent negatives as noted in HPI. All other systems were reviewed and are negative Vital Signs Vital Signs Vital Signs: 03/07/23 01:56 03/07/23 02:02 03/07/23 02:07 Temperature 99.8 F H Temperature Source Oral Pulse Rate 126 H 123 H 91 Respiratory Rate 22 H 22 H 27 H Blood Pressure 107/78 Blood Pressure Mean 87 Pulse Ox 78 88 92 Oxygen Delivery Method Room Air Nasal Cannula Non-Rebreather Oxygen Flow Rate (L/min) 6 03/07/23 02:28 03/07/23 02:35 03/07/23 02:48 Temperature 100.3 F H 98.7 F Temperature Source Temporal Temporal Pulse Rate 114 H 112 H 115 H Respiratory Rate 28 H 28 H 29 H Blood Pressure 91/68 94/68 98/76 Blood Pressure Mean 75 76 83 Pulse Ox 93 94 95 Oxygen Delivery Method Non-Rebreather High Flow High Flow Oxygen Flow Rate (L/min) 10 10 03/07/23 03:16 Temperature Temperature Source Pulse Rate Respiratory Rate Blood Pressure Blood Pressure Mean Pulse Ox 93 Oxygen Delivery Method High Flow Oxygen Flow Rate (L/min) 8 Physical Exam Narrative Physical exam: General: Well-nourished, well-developed. Head: Normocephalic, atraumatic, no tenderness Eyes: Vision is grossly intact. EOMI ENT, no trauma, no rhinorrhea Neck: Nontender, No thyromegaly. CVS: Tachycardia. S1-S2 present. No murmur, gallop or rub. Respiratory : Bibasilar Rales, chest wall nontender Abdomen: PEG tube in place. Soft, nontender, nondistended, normal bowel sounds, no masses : Deferred Back: Nontender, no CVA tenderness. Extremities: Nontender full range of motion, no trauma Skin: Normal color, no trauma, abrasions Neuro: Alert, oriented, cranial nerves II through XII grossly intact. Psychiatry: Normal mood. Normal affect. Not depressed. Not anxious. Results Lab / Micro Data Result Diagrams: 03/07/23 02:23 03/07/23 02:23 Labs: Laboratory Results - last 24 hr 03/07/23 02:23: WBC 2.8 L, RBC 3.58 L, Hgb 10.2 L, Hct 33.1 L, MCV 92.5, MCH 28.5, MCHC 30.8 L, RDW Std Deviation 47.4 H, RDW Coeff of Lee 13.9, Plt Count 216, MPV 9.1, Immature Gran % (Auto) 0.700, Neut % (Auto) 67.9, Lymph % (Auto) 19.7, [place] % (Auto) 11.3 H, Eos % (Auto) 0.0, Baso % (Auto) 0.4, Absolute Neuts (auto) 1.9 L, Absolute Lymphs (auto) 0.56 L, Nucleated RBC % 0, Differential Comment SCANNED, Diff Path Review March03/07/23 02:23: PT 13.4, INR 1.0, APTT 27.1, D-Dimer Quant (PE/DVT) 4.99 H* 03/07/23 02:23: Sodium 143, Potassium 3.9, Chloride 113 H, Carbon Dioxide 26.0, Anion Gap 4 L, BUN 30 H, Creatinine 2.29 H, Est GFR (MDRD) Af Amer 27 L, Est GFR (MDRD) Non-Af 22 L, BUN/Creatinine Ratio 13.1, Glucose 134 H, Calcium 11.7 H, Magnesium 1.8 03/07/23 02:30: Lactic Acid 2.7 H* Micro: Microbiology 03/07/23 02:23 Nasal Secretion SARS-CoV-2 & FLU Antigen (Rapid) - Final Radiology Impression Chest X-Ray 03/07/23 02:40 IMPRESSION: Bilateral pneumonia. Electronically Signed: Jud Keenan MD at 3:17 EDT , Assessment & Plan Assessment/Plan (1) Sepsis: (2) Bilateral pneumonia: (3) Hypoxia: (4) Aspiration pneumonia: (5) CITLALY (acute kidney injury): PLAN: Plan Sepsis secondary to pneumonia with hypoxia The patient presented with sepsis due to (aspiration pneumonia) with acute sepsis related organ dysfunction as evidenced by (lactic acidosis). SIRS criteria: Respiratory rate more than 20 Heart rate more than 90 WBC less than 4000 organ dysfunction: Lactic acidosis. Trend lactic acid. Of note patient has creatinine more than 2, platelets of 2.29. However 2 days before her creatinine was 2.12. Blood culture x2 was ordered emergency department, follow. Impression of chest x-ray by radiologist:Bilateral pneumonia.. Hospitalist independent interpretation of chest x-ray: Agrees with radiologist interpretation. Admit to the intensive care unit. Estate Attorney consult CITLALY on CKD stage IIIb Her creatinine on presentation was 2.29. Baseline creatinine is less than 2. Avoid nephrotoxic's. Gentle IV hydration. Trend BMP. Vomiting Patient with recently placed PEG tube. Hold tube feeding for now. While n.p.o. gentle IV hydration ordered. GI consult. Diarrhea Likely secondary to tube feeding. Tube feeds placed on hold. DVT prophylaxis: Subcutaneous heparin ordered. Charges/Coding Visit Charges Inpatient E&M: 96456 Init Hosp L3
[2023-03-07] MEDS: Lactated Ringers 1,000 ML 75 ML IV ×2 (06:24→23:11)
[2023-03-07 07:11] LABS: Reflex Lactate? Y
[2023-03-07 08:21] LABS: Absolute Lymphocyte Count 0.66 X10^3/uL (0.83-4.51); Absolute Neutrophil Count 4.4 X10^3/uL (2.0-7.7); Basophil# 0.02 X10^3/uL; Basophil% 0.4 % (0-1); Hematocrit 31.2 % (37-47); Hemoglobin 9.3 g/dL (12.0-15.0); Lymphocyte # 0.66 X10^3/ul (0.83-4.51); Mean Corp Hgb Conc 29.8 g/dL (32-36); Mean Platelet Vol. 9.5 fl (6.2-12.0); Monocyte% 7.3 % (0-10); NRBC Flagged by Analyzer 0 % (0-5); Neutrophil # 4.38 X10^3/uL (2.7-7.7); Neutrophil % 79.8 % (47-70); POSITIVE MORPHOLOGY YES; Platelet Count 176 K/mm3 (150-450); RBC Distribution Width SD 47.8 fl (35.1-43.9); Red Blood Count 3.32 M/mm3 (4.2-5.4); White Blood Count 5.5 K/mm3 (4.4-11.0)
[2023-03-07 08:24] LABS: M R Staph aureus DNA By PCR Negative (Negative); Probe Check PASS; Specimen Processing Control PASS
[2023-03-07 08:27] LABS: Differential Indicated SCAN CRITERIA MET
[2023-03-07] MEDS: 0.9% Saline Lock 10 ML Syringe IV (08:33)
--- NOTE | 2023-03-07 08:35 | EX.PCM.CONCC ---
Assessment & Plan Assessment/Plan (1) Acute respiratory failure with hypoxia: (2) Bilateral pneumonia: (3) Sepsis: PLAN: Plan RECOMMENDATIONS: 1. Obtain ABG 2. Titrate oxygen to maintain saturations between 90 and 94% 3. Agree with empiric antibiotics 4. Clarify CODE STATUS 5. Continue baseline psychiatric medications 6. Fluid bolus as necessary for hypotension IMPRESSIONS: 1. Sepsis/acute hypoxic respiratory failure secondary to aspiration pneumonia Patient presents with tachypnea, tachycardia, leukopenia and elevated lactate with new bilateral pneumonia and oxygen requirements. Chest x-ray does show infiltrates in the left lower and right upper lobes. Clinical suspicion for aspiration. Patient is on vancomycin and Unasyn. Patient's chemistry is suggestive of CO2 retention, so an ABG will be obtained to ensure there is not retention. Saturations should be Between 90 and 94%. We will need to clarify with patient's on the goals of therapy. Patient with significant debility at baseline. Patient will likely not be a candidate for BiPAP therapy given ongoing nausea and vomiting. Possibly transition to Airvo 2. Dysphagia/nausea, vomiting and diarrhea Patient with a recently PEG placement. Patient has had some emesis. Will attempt speech therapy. We will hold on any tube feeds for now. Likely start trophic feeds initially as patient is at continued risk for decompensation. 3. Bipolar disorder/secondary parkinsonism/CKD stage III/gastroparesis/anemia Complicates care, management, recovery and prognosis. Okay to continue with baseline medications. Continue PPI. SCDs and heparin subcu for DVT prophylaxis. Need to clarify with the about intubation status. HPI Consult Data Date of Consult: 03/07/23 HPI Narrative HPI Narrative: SIMONA HERNANDEZ is a 72 F, with past medical history listed below, who presents to [facility] 03/07[facility]2023 secondary to recurrent nausea vomiting and respiratory distress. Patient recently had a protracted hospitalization secondary to esophageal constriction and need for PEG tube. Patient reportedly had had an emesis at home and started to complain of dizziness. Patient's was concerned for electrolyte imbalances, so she was brought to the emergency department for an evaluation. In the emergency department, patient was noted to have a temperature of 100.3 ?F, tachycardic at 126 bpm and tachypneic at 27 breaths/min. Patient was noted to have a saturation of 70% on room air and eventually had to be placed on 10 L nasal cannula to maintain saturations. Laboratory data showed a white blood cell count of 2.8, hemoglobin of 10.2 and platelets of 216. Coagulation studies were within normal limits. D-dimer was elevated at almost 5. Chemistry showed a sodium of 143, chloride of 113, bicarbonate of 26 and a creatinine of 2.29. Initial lactate was elevated at 2.7. Review of the chest x-ray personally showed a new right upper lobe and left lower lobe infiltrate. Since being in the intensive care unit, patient has required increased oxygen to maintain saturations. Patient's blood pressure has been maintained, but she is slightly tachycardic. No fevers been noted. Patient with a very dull affect and not able to provide much additional information. No additional emesis has been reported. Did discuss with the hospitalist and patient's mentation is similar to previous hospitalization. Unable to obtain review of systems secondary to mentation. [facility] Medical History Acute renal insufficiency CITLALY (acute kidney injury) Anemia Anxiety Back pain Bipolar disorder Bipolar disorder with moderate depression Bladder disease Delirium due to multiple etiologies Diabetes insipidus Dietary restriction Difficulty chewing Erosive esophagitis Falls Former smoker Gastric reflux Gastroparesis Generalized weakness Gram-negative bacteremia History of edema History of herpes zoster History of hiatal hernia Hypercalcemia Hypernatremia Hypertension Post-menopausal Pulmonary emboli Secondary hyperparathyroidism of renal origin Severe malnutrition Severe malnutrition Stenosis of esophagus Tardive dyskinesia Thyroid disease Unsteady gait UTI (urinary tract infection) Wears glasses Home Medications cinacalcet 30 mg tablet 30 mg PO SUMOWEFR THYROID 10/04/20 [History Last Taken 01/14/23] methimazole 5 mg tablet 5 mg PO SUMOWEFR Check with primary doctor 10/04/20 [History Last Taken 01/14/23] memantine 10 mg tablet 10 mg PO DAILY Check with primary doctor 01/03/21 [History Last Taken 01/14/23] denosumab 60 mg/mL subcutaneous syringe (Prolia) 60 mg subcut .Q6MO . 09/05/22 [History Last Taken 08/27/22] oxybutynin chloride 15 mg tablet,extended release 24 hr 15 mg PO DAILY . 09/05/22 [History Last Taken 01/14/23] polyethylene glycol 3350 17 gram/dose oral powder (Miralax) 17 g PO DAILY LAXATIVE 09/05/22 [History Last Taken 09/05/22] lamotrigine 100 mg tablet 200 mg PO DAILY . 12/15/22 [History Last Taken 01/14/23] ferrous sulfate 325 mg (65 mg iron) tablet 325 mg PO QODAY SUPPLEMENT #30 tabs 12/24/22 [Rx Last Taken 01/13/23] lorazepam 2 mg tablet 2 mg PO 4XD PRN AGITATION #1 TAB 12/24/22 [Rx Last Taken 01/13/23] pantoprazole 40 mg tablet,delayed release 40 mg PO BID stomach 01/14/23 [History Last Taken 01/13/23] sucralfate 100 mg/mL oral suspension 10 ml PO QACHS Check with primary doctor 01/30/23 [History Last Taken Unknown] losartan 25 mg tablet 25 mg PO DAILY #90 tabs 03/06/23 [Rx Last Taken Unknown] nutritional supplements 0.06 gram-1.2 kcal/mL oral liquid (Osmolite 1.2 Mp) 120 ml G-tube 5X/DAY #0 mL 03/06/23 [Rx Last Taken Unknown] ondansetron HCl 4 mg tablet 4 mg PO Q6H PRN nausea and vomiting #30 tabs 03/06/23 [Rx Last Taken Unknown] Allergy/AdvReac Type Severity Reaction Status Date / Time No Known Allergies Allergy Verified 03/04/23 09:26 Family History Father CVA (cerebral vascular accident) Sister CVA (cerebral vascular accident) Cancer Surgical History History of esophagogastroduodenoscopy (EGD) Hx of esophagogastroduodenoscopy Social History household members: spouse housing: house Smoking Status: Former smoker Tobacco: How many years used: 4 second hand exposure: Yes alcohol intake: never substance use type: does not use what type of physical activity do you participate in: other details: OT - [facility] IN [place] frequency: daily valentina/adventist: Religion seatbelt use: always additional social history: Ambulates at baseline without assistive device ROS Review of Systems ROS Unobtainable: due to mental status Physical Exam Const Constitutional Narrative: Oriented to self only. Very flat affect. Asking for water, but not answering additional questions. General Appearance: frail HEENT normocephalic and head/scalp atraumatic HEENT Narrative: Dry mucous membranes Eyes PERRL, EOMs intact bilaterally and conjunctivae normal Neck full ROM and no lymphadenopathy Chest inspection of chest normal Resp Resp Narrative: Fair effort Auscultation: rhonchi right upper and left lower and diminished lung sounds; Negative for rales or wheezes Cardio S1 normal heart sound, S2 normal heart sound and no murmurs Rate: tachycardic GI normal to inspection, nondistended, normoactive bowel sounds GI Narrative: PEG is clean, dry and intact. Inspection: GI tube present Extremity no clubbing, cyanosis or edema Neuro moves all extremities and no focal motor deficits Psych Mood & Affect: flat affect Medical Records Data Attestation: I reviewed the patient's medical records (Previous hospitalization was reviewed) Lab / Micro Data Attestation: I reviewed the patient's lab results. Result Diagrams: 03/07/23 08:10 03/07/23 08:10 Labs: Laboratory Results - last 24 hr 03/07/23 02:23: WBC 2.8 L, RBC 3.58 L, Hgb 10.2 L, Hct 33.1 L, MCV 92.5, MCH 28.5, MCHC 30.8 L, RDW Std Deviation 47.4 H, RDW Coeff of Lee 13.9, Plt Count 216, MPV 9.1, Immature Gran % (Auto) 0.700, Neut % (Auto) 67.9, Lymph % (Auto) 19.7, [place] % (Auto) 11.3 H, Eos % (Auto) 0.0, Baso % (Auto) 0.4, Absolute Neuts (auto) 1.9 L, Absolute Lymphs (auto) 0.56 L, Nucleated RBC % 0, Differential Comment SCANNED, Diff Path Review March03/07/23 02:23: PT 13.4, INR 1.0, APTT 27.1, D-Dimer Quant (PE/DVT) 4.99 H* 03/07/23 02:23: Sodium 143, Potassium 3.9, Chloride 113 H, Carbon Dioxide 26.0, Anion Gap 4 L, BUN 30 H, Creatinine 2.29 H, Est GFR (MDRD) Af Amer 27 L, Est GFR (MDRD) Non-Af 22 L, BUN/Creatinine Ratio 13.1, Glucose 134 H, Calcium 11.7 H, Magnesium 1.8 03/07/23 02:30: Lactic Acid 2.7 H* 03/07/23 06:10: MRSA (PCR) Negative 03/07/23 08:10: WBC 5.5, RBC 3.32 L, Hgb 9.3 L, Hct 31.2 L, MCV 94.0, MCH 28.0, MCHC 29.8 L, RDW Std Deviation 47.8 H, RDW Coeff of Lee 14.0, Plt Count 176, MPV 9.5, Immature Gran % (Auto) 0.500, Neut % (Auto) 79.8 H, Lymph % (Auto) 12.0 L, [place] % (Auto) 7.3, Eos % (Auto) 0.0, Baso % (Auto) 0.4, Absolute Neuts (auto) 4.4, Absolute Lymphs (auto) 0.66 L, Nucleated RBC % 0 Micro: Microbiology 03/07/23 02:23 Nasal Secretion SARS-CoV-2 & FLU Antigen (Rapid) - Final Radiology Impression Chest X-Ray 03/07/23 02:40 IMPRESSION: Bilateral pneumonia. Electronically Signed: Jud Keenan MD at 3:17 EDT Reading Location ID and State: [facility] / [place] Tel , Service support , Charges/Coding Visit Charges Inpatient E&M: 61964 Init Hosp L3
[2023-03-07 08:37] LABS: Anion Gap 1 (5-15); BUN 31 mg/dL (7-18); BUN/Creat Ratio 13.6 RATIO (10-20); Chloride 116 mmol/L (98-107); Creatinine, Serum 2.28 mg/dL (0.55-1.02); EST Glomerular Filtration Rate 22 mL/min (>60); Est Glom Filt Rate - Afr Amer 27 mL/min (>60); Estimated Creatinine Clearance 19.67 ml/min; Glucose 119 mg/dL (74-106); Potassium 4.3 mmol/L (3.5-5.1); Sodium Level 146 mmol/L (136-145)
[2023-03-07 09:05] LABS: Lactic Acid 2.2 mmol/L (0.4-1.9)
[2023-03-07] MEDS: Memantine Hydrochloride 10 MG Tablet PO (09:23)
[2023-03-07] MEDS: Pantoprazole Sodium 40 MG Tablet PO ×2 (09:23→23:00)
[2023-03-07] MEDS: lamoTRIgine 100 MG Tablet 200 MG PO (09:23)
[2023-03-07] MEDS: Heparin Injection (Vial) 5,000 UNIT/ML VIAL 5000 UNIT SC ×2 (09:27→23:00)
[2023-03-07] MEDS: Lactated Ringers 1,000 ML 999 ML IV (09:30)
[2023-03-07 10:01] LABS: Base Excess 2 mmol/L (-2 to +2); Bicarbonate 27.4 mmol/L (22-26); Blood Gas Specimen Type ART; PO2 69 mmHG (75-100); SITE R Brach; SO2 92 % (95-99); Total Carbon Dioxide 29 mmol/L; pCO2 51.5 mmHg (35-45); pH 7.33 (7.35-7.45)
[2023-03-07 10:20] LABS: Differential Comment SCANNED
--- NOTE | 2023-03-07 10:27 | PCM.HOSP.N ---
Hospitalist Note Patient was seen and examined briefly today, she was readmitted to the hospital for aspiration pneumonia earlier this morning, patient appears comfortable at this time, nursing states that they are reluctant to give her a diet at this time due to concerns of dysphagia. Patient has been asking for liquids, I told nursing that they could give her ice chips sparingly. Patient will remain on IV antibiotics at this time, she requires 8 L of oxygen at this time to maintain her pulse ox. Patient's white count today was normal. I talked briefly with critical care about her care.
--- NOTE | 2023-03-07 11:13 | CON.PCM.GI_ITS ---
HPI Consult Data Date of Consult: 03/07/23 HPI Narrative Reason for Consultation: aspiration pneumonia HPI Narrative: SIMONA HERNANDEZ, is a 72 F who presents from home after recently being discharged from the hospital with lethargy and weakness. She has a past medical history of severe bipolar disorder ,secondary parkinsonism possibly secondary to psychiatric medications with gastroparesis , esophageal dysphagia secondary to recurrent benign esophageal stricture. She has had multiple dilations of esophageal stricture in the past. I initially got to see her for recurrent aspiration pneumonia secondary to marked oropharyngeal and esophageal dysphagia. She recently underwent esophageal dilation for recurrent esophageal stricture and placement of a PEG tube. She underwent a swallow study and was determined to have marked oroph aryngeal dysphagia and esophageal dysphagia. Recommendations were primary nutrition from tube feedings, medications via PEG tube and pleasure oral intake with specific textures of foods only. In the ED she was discovered to have bilateral aspiration pneumonia after multiple episodes of vomiting. She was sent to the ICU and is currently being treated for sepsis. [facility] Medical History Acute renal insufficiency CITLALY (acute kidney injury) Anemia Anxiety Back pain Bipolar disorder Bipolar disorder with moderate depression Bladder disease Delirium due to multiple etiologies Diabetes insipidus Dietary restriction Difficulty chewing Erosive esophagitis Falls Former smoker Gastric reflux Gastroparesis Generalized weakness Gram-negative bacteremia History of edema History of herpes zoster History of hiatal hernia Hypercalcemia Hypernatremia Hypertension Post-menopausal Pulmonary emboli Secondary hyperparathyroidism of renal origin Severe malnutrition Severe malnutrition Stenosis of esophagus Tardive dyskinesia Thyroid disease Unsteady gait UTI (urinary tract infection) Wears glasses Home Medications cinacalcet 30 mg tablet 30 mg PO SUMOWEFR THYROID 10/04/20 [History Last Taken 01/14/23] methimazole 5 mg tablet 5 mg PO SUMOWEFR Check with primary doctor 10/04/20 [History Last Taken 01/14/23] memantine 10 mg tablet 10 mg PO DAILY Check with primary doctor 01/03/21 [History Last Taken 01/14/23] denosumab 60 mg/mL subcutaneous syringe (Prolia) 60 mg subcut .Q6MO . 09/05/22 [History Last Taken 08/27/22] oxybutynin chloride 15 mg tablet,extended release 24 hr 15 mg PO DAILY . 09/05/22 [History Last Taken 01/14/23] polyethylene glycol 3350 17 gram/dose oral powder (Miralax) 17 g PO DAILY LAXATIVE 09/05/22 [History Last Taken 09/05/22] lamotrigine 100 mg tablet 200 mg PO DAILY . 12/15/22 [History Last Taken 01/14/23] ferrous sulfate 325 mg (65 mg iron) tablet 325 mg PO QODAY SUPPLEMENT #30 tabs 12/24/22 [Rx Last Taken 01/13/23] lorazepam 2 mg tablet 2 mg PO 4XD PRN AGITATION #1 TAB 12/24/22 [Rx Last Taken 01/13/23] pantoprazole 40 mg tablet,delayed release 40 mg PO BID stomach 01/14/23 [History Last Taken 01/13/23] sucralfate 100 mg/mL oral suspension 10 ml PO QACHS Check with primary doctor 01/30/23 [History Last Taken Unknown] losartan 25 mg tablet 25 mg PO DAILY #90 tabs 03/06/23 [Rx Last Taken Unknown] nutritional supplements 0.06 gram-1.2 kcal/mL oral liquid (Osmolite 1.2 Mp) 120 ml G-tube 5X/DAY #0 mL 03/06/23 [Rx Last Taken Unknown] ondansetron HCl 4 mg tablet 4 mg PO Q6H PRN nausea and vomiting #30 tabs 03/06/23 [Rx Last Taken Unknown] Allergy/AdvReac Type Severity Reaction Status Date / Time No Known Allergies Allergy Verified 03/04/23 09:26 Family History Father CVA (cerebral vascular accident) Sister CVA (cerebral vascular accident) Cancer Surgical History History of esophagogastroduodenoscopy (EGD) Hx of esophagogastroduodenoscopy Social History household members: spouse housing: house Smoking Status: Former smoker Tobacco: How many years used: 4 second hand exposure: Yes alcohol intake: never substance use type: does not use what type of physical activity do you participate in: other details: OT PT - [facility] IN [place] frequency: daily valentina/yarsanism: Zoroastrianism seatbelt use: always additional social history: Ambulates at baseline without assistive device ROS Review of Systems ROS Unobtainable: due to mental status Physical Exam Const Constitutional Narrative: Oriented to self only. Very flat affect. Asking for water, but not answering additional questions. General Appearance: frail HEENT normocephalic and head/scalp atraumatic HEENT Narrative: Dry mucous membranes Eyes PERRL, EOMs intact bilaterally and conjunctivae normal Neck full ROM and no lymphadenopathy Chest inspection of chest normal Resp Resp Narrative: Fair effort Auscultation: rhonchi right upper and left lower and diminished lung sounds; Negative for rales or wheezes Cardio S1 normal heart sound, S2 normal heart sound and no murmurs Rate: tachycardic GI normal to inspection, nondistended, normoactive bowel sounds GI Narrative: PEG is clean, dry and intact. Inspection: GI tube present Extremity no clubbing, cyanosis or edema Neuro moves all extremities and no focal motor deficits Psych Mood & Affect: flat affect Medical Records Data Medical Nutrition Assessment Dietitian: Malnutrition Criteria Met Start: 03/07/23 10:37 Freq: Status: Active Protocol: Document 03/07/23 10:38 [facility] (Rec: 03/07/23 10:38 [facility] [id number]) Nutrition Malnutrition Evidence of Malnutrition Exists Yes Malnutrition (severe): Chronic Evidenced By Suboptimal Energy Intake ( Severe),Weight Loss (Severe) Clinical Problem Chronic Disease or Condition Related Malnutrition Etiology chronic, severe malnutrition related to inadequate oral intake d/t swallowing difficulty Signs/Symptoms as evidenced by unintentional 15.6% wt loss x 5 months; estimated PO intake meeting < 75% of estimated energy needs > 5 months Status Active Problem Recommendation Dietitian Recommendations/Changes Will monitor ability to resume TF - likely to start trophic feeds tomorrow. Lab / Micro Data Result Diagrams: 03/07/23 08:10 03/07/23 08:10 Labs: Laboratory Results - last 24 hr 03/07/23 02:23: WBC 2.8 L, RBC 3.58 L, Hgb 10.2 L, Hct 33.1 L, MCV 92.5, MCH 28.5, MCHC 30.8 L, RDW Std Deviation 47.4 H, RDW Coeff of Lee 13.9, Plt Count 216, MPV 9.1, Immature Gran % (Auto) 0.700, Neut % (Auto) 67.9, Lymph % (Auto) 19.7, [place] % (Auto) 11.3 H, Eos % (Auto) 0.0, Baso % (Auto) 0.4, Absolute Neuts (auto) 1.9 L, Absolute Lymphs (auto) 0.56 L, Nucleated RBC % 0, Differential Comment SCANNED, Diff Path Review March03/07/23 02:23: PT 13.4, INR 1.0, APTT 27.1, D-Dimer Quant (PE/DVT) 4.99 H* 03/07/23 02:23: Sodium 143, Potassium 3.9, Chloride 113 H, Carbon Dioxide 26.0, Anion Gap 4 L, BUN 30 H, Creatinine 2.29 H, Est GFR (MDRD) Af Amer 27 L, Est GFR (MDRD) Non-Af 22 L, BUN/Creatinine Ratio 13.1, Glucose 134 H, Calcium 11.7 H, Magnesium 1.8 03/07/23 02:30: Lactic Acid 2.7 H* 03/07/23 06:10: MRSA (PCR) Negative 03/07/23 08:05: Lactic Acid 2.2 H* 03/07/23 08:10: WBC 5.5, RBC 3.32 L, Hgb 9.3 L, Hct 31.2 L, MCV 94.0, MCH 28.0, MCHC 29.8 L, RDW Std Deviation 47.8 H, RDW Coeff of Lee 14.0, Plt Count 176, MPV 9.5, Immature Gran % (Auto) 0.500, Neut % (Auto) 79.8 H, Lymph % (Auto) 12.0 L, [place] % (Auto) 7.3, Eos % (Auto) 0.0, Baso % (Auto) 0.4, Absolute Neuts (auto) 4.4, Absolute Lymphs (auto) 0.66 L, Nucleated RBC % 0, Differential Comment SCANNED 03/07/23 08:10: Sodium 146 H, Potassium 4.3, Chloride 116 H, Carbon Dioxide 29.0, Anion Gap 1 L, BUN 31 H, Creatinine 2.28 H, Estim Creat Clear Calc 19.67, Est GFR (MDRD) Af Amer 27 L, Est GFR (MDRD) Non-Af 22 L, BUN/Creatinine Ratio 13.6, Glucose 119 H, Calcium 11.0 H Micro: Microbiology 03/07/23 02:23 Nasal Secretion SARS-CoV-2 & FLU Antigen (Rapid) - Final ABG Data ABG results: ABG 03/07/23 09:54 Specimen Type ART Sample Site R Brach pH 7.33 L Bicarbonate Actual 27.4 H Total CO2 29 Base Excess 2 O2 Saturation 92 L ABG pCO2 51.5 H ABG pO2 69 L Liter Flow 8.0 Radiology Impression Chest X-Ray 03/07/23 02:40 IMPRESSION: Bilateral pneumonia. Electronically Signed: Jud Keenan MD at 3:17 EDT , Assessment & Plan Assessment/Plan (1) Bilateral pneumonia: PLAN: She has a history of recurrent aspiration pneumonias in the past. She has marked oropharyngeal and esophageal dysphagia from unknown reason. I suspect she has complications from parkinsonism that is contributing to possible upper motor neuron problems contributing to aspiration pneumonia. There is a possibility that she aspirated tube feedings. I agree with empiric antibiotic therapy and she is being seen by deli cutter slicer service. (2) Acute respiratory failure with hypoxia: PLAN: Agree with holding tube feedings for now. We can do a Gastrografin study to see if tube feedings are retroflexing back up into the esophagus past esophageal stricture. (3) Secondary parkinsonism: PLAN: Possibly secondary to bipolar medications specifically years of lithium usage (4) Esophageal stricture: PLAN: Status post dilation in the past. Protonix 40 mg twice daily. (5) Gastric paresis: PLAN: Recommend Reglan therapy 10 mg every 6 hours IV Charges/Coding Visit Charges Inpatient E&M: 71248 Init Hosp L3
[2023-03-07] MEDS: guaiFENesin 10 ML UDC (200MG/10ML) GT ×2 (11:30→18:36)
[2023-03-07] MEDS: Sucralfate 1 GM Tablet PO ×2 (15:19→23:00)
--- NOTE | 2023-03-07 15:44 | CASEMGMT ---
ALEXEY CM: Pt with the following admissions this year: 12/15 thru 12/24 for CITLALY, dehydration. 01/16 thru 01/19 for dysphagia 01/30 thru 02/01 for esophageal stricture 03/04 thru 03/06 (observation) for dysphagia Current admission 03/07 for sepsis secondary to aspiration pneumonia. Pt with gastroparesis, reoccurring esophageal stricture requiring repeated dilatations, bipolar disorder, HTN, CKD stage 4, chronic severe malnutrition, and anemia was admitted on the above noted dates for the noted diagnoses. Pt received a PEG tube and underwent esophageal dilatation with Botox injection on 03/05. Pt was started on tube feeds and pt's spouse was educated on the administration of these feeds. Tube feed was ordered from [facility] with delivery on Friday 03/[address] [facility] was to provide SN services for continued PEG tube education and monitoring. Osmolite was provided by [facility] pharmacy until the [facility] delivery could be made on Thursday. Pt was evaluated by ST on previous admission with thin liquid diet recommended and no additional ST tx needed upon discharge. Pt's spouse not currently at bedside and is reported to have gone home to get some sleep as he was up all night. Noted pt with baseline cognitive deficits. Will follow-up with pt's spouse for continued care coordination and assessment of discharge planning needs. Salvador Santillan RN CM
[2023-03-07] MEDS: MELATONIN 3 MG TABLET PO (23:08)
[2023-03-07] MEDS: Acetaminophen 325 MG Tablet 650 MG PO (23:08)
[2023-03-07] MEDS: LORazepam 1 MG Tablet 2 MG PO (23:09)
[2023-03-08] VITALS (22 sets, daily range): BP systolic 88–170; BP diastolic 55–98; PULSE 79–105; RESP 17–25; TEMP 37.2–37.6; O2SAT 90–100; BMI 21.1
[2023-03-08] MEDS: 0.9% Saline Lock 10 ML Syringe IV ×4 (06:05→22:49)
[2023-03-08 06:14] LABS: Absolute Lymphocyte Count 0.87 X10^3/uL (0.83-4.51); Absolute Neutrophil Count 6.4 X10^3/uL (2.0-7.7); Basophil# 0.05 X10^3/uL; Basophil% 0.6 % (0-1); Eosinophil# 0.01 X10^3/uL; Eosinophils% 0.1 % (0-5); Hematocrit 25.3 % (37-47); Hemoglobin 7.5 g/dL (12.0-15.0); Lymphocyte # 0.87 X10^3/ul (0.83-4.51); Lymphocyte % 11.1 % (19-41); Mean Corp Hgb Conc 29.6 g/dL (32-36); Mean Corpuscular Hgb 28.3 pg (27.0-32.0); Mean Corpuscular Volume 95.5 fL (81-99); Mean Platelet Vol. 9.6 fl (6.2-12.0); Monocyte# 0.46 X10^3/uL; Monocyte% 5.8 % (0-10); NRBC Flagged by Analyzer 0 % (0-5); Neutrophil # 6.37 X10^3/uL (2.7-7.7); POSITIVE MORPHOLOGY YES; Platelet Count 140 K/mm3 (150-450); RBC Distribution Width CV 14.1 % (11.6-14.6); Red Blood Count 2.65 M/mm3 (4.2-5.4); White Blood Count 7.9 K/mm3 (4.4-11.0)
[2023-03-08 06:26] LABS: Anion Gap 6 (5-15); BUN 45 mg/dL (7-18); BUN/Creat Ratio 22.1 RATIO (10-20); Calcium,Total 10.4 mg/dL (8.5-10.1); Chloride 119 mmol/L (98-107); Creatinine, Serum 2.04 mg/dL (0.55-1.02); EST Glomerular Filtration Rate 25 mL/min (>60); Est Glom Filt Rate - Afr Amer 31 mL/min (>60); Glucose 101 mg/dL (74-106); Potassium 4.4 mmol/L (3.5-5.1); Sodium Level 152 mmol/L (136-145)
--- NOTE | 2023-03-08 06:37 | PN.CC_ITS ---
Assessment & Plan Assessment/Plan (1) Acute respiratory failure with hypoxia: (2) Bilateral pneumonia: (3) Sepsis: PLAN: Plan RECOMMENDATIONS: 1. Hold on additional normal saline boluses. Use LR if necessary 2. Titrate oxygen to maintain saturations between 90 and 94% 3. Agree with empiric antibiotics 4. Likely start trophic feeds with increased free water flushes 5. Continue baseline psychiatric medications 6. Potential transfer from the intensive care unit later today if oxygenation continues to improve IMPRESSIONS: 1. Sepsis/acute hypoxic respiratory failure secondary to aspiration pneumonia Patient presents with tachypnea, tachycardia, leukopenia and elevated lactate with new bilateral pneumonia and oxygen requirements. Chest x-ray does show infiltrates in the left lower and right upper lobes. Clinical suspicion for aspiration. Patient is on vancomycin and Unasyn. Patient's last ABG shows adequate oxygenation and ventilation. Saturations should be Between 90 and 94%. is very clear that the patient is a full code. Patient with significant debility at baseline. Patient will likely not be a candidate for BiPAP therapy given ongoing nausea and vomiting. Wean Airvo as tolerated. 2. Dysphagia/nausea, vomiting and diarrhea Patient with a recently PEG placement. Patient has had some emesis. Will attempt speech therapy. Likely okay to initiate tube feeds at trophic dosing, but will need increased free water flushes. Hypernatremia and hyperchloremia likely secondary to fluid resuscitation secondary to problem #1 3. Bipolar disorder/secondary parkinsonism/CKD stage III/gastroparesis/anemia Complicates care, management, recovery and prognosis. Okay to continue with baseline medications. Continue PPI. SCDs and heparin subcu for DVT prophylaxis. did verify the patient can be intubated if necessary. Subjective Subjective Patient did okay overnight. Patient remains on Airvo therapy with marginal blood pressures intermittently. Patient has received some normal saline boluses. Patient is not reporting any pains. Patient has had intermittent nausea Objective Data Objective Data Vital Signs: Vital Signs Temp Pulse Resp BP Pulse Ox O2 Del Method O2 Flow Rate 37.2 C 88 22 H 135/77 H 97 Airvo 50 03/08/23 04:00 03/08/23 06:00 03/08/23 06:00 03/08/23 06:00 03/08/23 06:00 03/08/23 06:00 03/08/23 06:00 FiO2 52 03/08/23 06:00 Oxygen Flow Rate (L/min) 50 Oxygen Delivery Method Airvo Weight: 57.6 kg Body Mass Index (BMI) 21.1 Intake & Output: Intake and Output for Last 24 Hours 03/06/23 03/07/23 03/08/23 23:59 23:59 23:59 Intake Total 3981.00 / 4081.00 100 / 100 Output Total 650 / 650 350 / 350 Balance 3331.00 / 3431.00 -250 / -250 Medical Nutrition Assessment Dietitian: Malnutrition Criteria Met Start: 03/07/23 10:37 Freq: Status: Active Protocol: Document 03/07/23 10:38 SLA (Rec: 03/07/23 10:38 SLA [id number]) Nutrition Malnutrition Evidence of Malnutrition Exists Yes Malnutrition (severe): Chronic Evidenced By Suboptimal Energy Intake ( Severe),Weight Loss (Severe) Clinical Problem Chronic Disease or Condition Related Malnutrition Etiology chronic, severe malnutrition related to inadequate oral intake d/t swallowing difficulty Signs/Symptoms as evidenced by unintentional 15.6% wt loss x 5 months; estimated PO intake meeting < 75% of estimated energy needs > 5 months Status Active Problem Recommendation Dietitian Recommendations/Changes Will monitor ability to resume TF - likely to start trophic feeds tomorrow. Lab / Micro Data Attestation: I reviewed the patient's lab results. Result Diagrams: 03/07/23 08:10 03/08/23 06:00 Labs: Laboratory Results - last 24 hr 03/07/23 06:10: MRSA (PCR) Negative 03/07/23 08:05: Lactic Acid 2.2 H* 03/07/23 08:10: WBC 5.5, RBC 3.32 L, Hgb 9.3 L, Hct 31.2 L, MCV 94.0, MCH 28.0, MCHC 29.8 L, RDW Std Deviation 47.8 H, RDW Coeff of Lee 14.0, Plt Count 176, MPV 9.5, Immature Gran % (Auto) 0.500, Neut % (Auto) 79.8 H, Lymph % (Auto) 12.0 L, [place] % (Auto) 7.3, Eos % (Auto) 0.0, Baso % (Auto) 0.4, Absolute Neuts (auto) 4.4, Absolute Lymphs (auto) 0.66 L, Nucleated RBC % 0, Differential Comment SCANNED 03/07/23 08:10: Sodium 146 H, Potassium 4.3, Chloride 116 H, Carbon Dioxide 29.0, Anion Gap 1 L, BUN 31 H, Creatinine 2.28 H, Estim Creat Clear Calc 19.67, Est GFR (MDRD) Af Amer 27 L, Est GFR (MDRD) Non-Af 22 L, BUN/Creatinine Ratio 13.6, Glucose 119 H, Calcium 11.0 H 03/08/23 06:00: Sodium 152 H, Potassium 4.4, Chloride 119 H, Carbon Dioxide 27.0, Anion Gap 6, BUN 45 H, Creatinine 2.04 H, Estim Creat Clear Calc 22.10, Est GFR (MDRD) Af Amer 31 L, Est GFR (MDRD) Non-Af 25 L, BUN/Creatinine Ratio 22.1 H, Glucose 101, Calcium 10.4 H Micro: Microbiology 03/07/23 02:23 Nasal Secretion SARS-CoV-2 & FLU Antigen (Rapid) - Final ABG Data ABG results: ABG 03/07/23 09:54 Specimen Type ART Sample Site R Brach pH 7.33 L Bicarbonate Actual 27.4 H Total CO2 29 Base Excess 2 O2 Saturation 92 L ABG pCO2 51.5 H ABG pO2 69 L Liter Flow 8.0 Physical Exam Const Constitutional Narrative: Oriented to self only. Very flat affect. Asking for water, but not answering additional questions. General Appearance: frail HEENT normocephalic and head/scalp atraumatic Eyes PERRL, EOMs intact bilaterally and conjunctivae normal Neck full ROM and no lymphadenopathy Chest inspection of chest normal Resp Resp Narrative: Fair effort Auscultation: rhonchi right upper and left lower and diminished lung sounds; Negative for rales or wheezes Cardio regular rate, regular rhythm, S1 normal heart sound, S2 normal heart sound and no murmurs GI normal to inspection, nondistended, normoactive bowel sounds GI Narrative: PEG is clean, dry and intact. Inspection: GI tube present Extremity no clubbing, cyanosis or edema Neuro moves all extremities and no focal motor deficits Psych Mood & Affect: flat affect Charges/Coding Visit Charges Inpatient E&M: 46364 Subs Hosp L3
[2023-03-08 06:41] LABS: Differential Indicated SCAN CRITERIA MET
[2023-03-08 06:56] LABS: Platelet Estimate SLT DEC (ADEQ)
[2023-03-08] MEDS: Sucralfate 1 GM Tablet PO ×4 (08:30→22:23)
--- NOTE | 2023-03-08 08:36 | ECHOD_ITS ---
Reason For Study: DYSPNEA/SOB, PNEUMONIA Procedure This was a 2D Doppler, Color Flow transthoracic echocardiogram. Exam performed portable in patient room. Left Ventricle Normal left ventricle. The left ventricular ejection fraction is 65 %. Normal diastology for age. Right Ventricle Normal right ventricle. Atria The left and right atria are normal. Mitral Valve The mitral valve is structurally normal. No prolapse or stenosis seen. Tricuspid Valve Mild tricuspid valve insufficiency. Right ventricular systolic pressure estimated to be 55 mmHg. Aortic Valve Normal aortic valve. Pulmonic Valve The pulmonic valve is not well visualized. Great Vessels Normal sized aortic root. Pericardium/Pleural No pericardial effusion. MMode/2D Measurements & Calculations LVIDd: 3.8 cm IVSd: 0.95 cm Ao root diam: 3.1 cm LVIDs: 2.4 cm LVPWd: 0.90 cm FS: 38.0 % LAV(MOD-bp): 40.6 ml LVAd ap4: 29.1 cm2 SV(MOD-sp4): 53.5 ml LAV(MOD-bp) Indexed: 25.2 ml/m2 LVLd ap4: 7.9 cm LAV(MOD-sp2): 41.9 ml EDV(MOD-sp4): 87.4 ml LAV(MOD-sp4): 37.5 ml EDV(sp4-el): 90.9 ml LVAs ap4: 15.7 cm2 LVLs ap4: 6.0 cm ESV(MOD-sp4): 33.9 ml ESV(sp4-el): 35.1 ml EF(MOD-sp4): 61.2 % EF(sp4-el): 61.3 % SV(sp4-el): 55.7 ml LA A4 area: 15.3 cm2 LA dimension(2D): 3.2 cm RA A4 area: 15.4 cm2 Time Measurements MV dec time: 0.15 sec Doppler Measurements & Calculations MV E max raymon: 87.8 cm/sec Lat Peak E' Raymon: 12.8 cm/sec Med Peak E' Raymon: 10.1 cm/sec MV A max raymon: 87.3 cm/sec E/E' lat: 6.8 E/E' med: 8.7 MV E/A: 1.0 Ao V2 max: 174.3 cm/sec LV V1 max: 151.9 cm/sec PA V2 max: 103.9 cm/sec Ao max P.2 mmHg LV V1 max P.2 mmHg TR max raymon: 351.4 cm/sec TR max P.4 mmHg ECHO/Echo Complete Interpretation Summary The left ventricular ejection fraction is 65 %. Right ventricular systolic pressure estimated to be 55 mmHg. Mild tricuspid valve insufficiency. Ordering Physician: Lenard Nicole Referring Physician: JOAN VAIL Performed By: Alyssa Zarate RDCS
--- NOTE | 2023-03-08 10:11 | PN.HOSP_ITS ---
Reason for Visit Reason for Visit: Diagnoses Sepsis, unspecified organism (03/07/23) Pneumonia, unspecified organism (03/07/23) Pneumonitis due to inhalation of food and vomit (03/07/23) Acute respiratory failure with hypoxia (03/07/23) Acute kidney failure, unspecified (03/07/23) Hypoxemia (03/07/23) Subjective Subjective Patient was seen and examined today, she is resting quietly, I discussed her care with nursing and critical care, patient requires Airvo when she sleeps, she is currently n.p.o. Objective Data Objective Data Vital Signs: Vital Signs Temp Pulse Resp BP Pulse Ox O2 Del Method O2 Flow Rate 99 F 80 20 H 106/68 96 Airvo 50 03/08/23 04:00 03/08/23 07:50 03/08/23 07:50 03/08/23 07:00 03/08/23 07:50 03/08/23 07:00 03/08/23 07:00 FiO2 40 03/08/23 07:50 Oxygen Flow Rate (L/min) 50 Oxygen Delivery Method Airvo Weight: 57.6 kg Body Mass Index (BMI) 21.1 Intake & Output: Intake and Output for Last 24 Hours 03/06/23 03/07/23 03/08/23 23:59 23:59 23:59 Intake Total 3981.00 / 4081.00 100 / 100 Output Total 650 / 650 850 / 850 Balance 3331.00 / 3431.00 -750 / -750 Medical Nutrition Assessment Dietitian: Malnutrition Criteria Met Start: 03/07/23 10:37 Freq: Status: Active Protocol: Document 03/08/23 09:59 (Rec: 03/08/23 09:59 [id number]) Nutrition Malnutrition Evidence of Malnutrition Exists Yes Malnutrition (severe): Chronic Evidenced By Suboptimal Energy Intake ( Severe),Weight Loss (Severe) Clinical Problem Chronic Disease or Condition Related Malnutrition Etiology chronic, severe malnutrition related to inadequate oral intake d/t swallowing difficulty Signs/Symptoms as evidenced by unintentional 15.6% wt loss x 5 months; estimated PO intake meeting < 75% of estimated energy needs > 5 months Status Active Problem Recommendation Dietitian Recommendations/Changes Recommend via PEG, trophic feeds of Osmolite 1.2 at 10mL/ hr with 100mL feeding tube flush. ADAT to Regular with texture/ consistency per POTTERY STRIPER Lab / Micro Data Result Diagrams: 03/08/23 06:00 03/08/23 06:00 Labs: Laboratory Results - last 24 hr 03/07/23 08:10: Differential Comment SCANNED 03/08/23 06:00: WBC 7.9, RBC 2.65 L, Hgb 7.5 L, Hct 25.3 L, MCV 95.5, MCH 28.3, MCHC 29.6 L, RDW Std Deviation 49.0 H, RDW Coeff of Lee 14.1, Plt Count 140 L, MPV 9.6, Immature Gran % (Auto) 1.400 H, Neut % (Auto) 81.0 H, Lymph % (Auto) 11.1 L, [place] % (Auto) 5.8, Eos % (Auto) 0.1, Baso % (Auto) 0.6, Absolute Neuts (auto) 6.4, Absolute Lymphs (auto) 0.87, Nucleated RBC % 0, Platelet Estimate SLT DEC 03/08/23 06:00: Sodium 152 H, Potassium 4.4, Chloride 119 H, Carbon Dioxide 27.0, Anion Gap 6, BUN 45 H, Creatinine 2.04 H, Estim Creat Clear Calc 22.10, Est GFR (MDRD) Af Amer 31 L, Est GFR (MDRD) Non-Af 25 L, BUN/Creatinine Ratio 22.1 H, Glucose 101, Calcium 10.4 H Micro: Microbiology 03/07/23 02:23 Nasal Secretion SARS-CoV-2 & FLU Antigen (Rapid) - Final Physical Exam Narrative Patient is somnolent but awakens to verbal or tactile stimulation Constitutional Narrative: Patient is cachexic General Appearance: cooperative and well developed Orientation / Consciousness: awake, oriented to person and oriented to place HEENT normocephalic, head/scalp atraumatic, hearing grossly normal bilaterally and moist oral mucous membranes Eyes PERRL, EOMs intact bilaterally and conjunctivae normal Neck supple, no JVD, thyroid normal and no carotid bruits General: trachea midline Resp normal respiratory effort, no retractions, no use of accessory muscles and clear to auscultation bilaterally Auscultation: Negative for rales, rhonchi or wheezes Cardio regular rate, regular rhythm, S1 normal heart sound, S2 normal heart sound, no murmurs, no rub and no gallops GI normal to inspection, nondistended, normoactive bowel sounds, soft to palpation, non-tender and non-distended Extremity no clubbing, cyanosis or edema Skin no rashes or lesions noted General Skin Exam: no breakdown Neuro oriented x3, CN's II-XII intact bilaterally, moves all extremities, no focal motor deficits and no sensory deficits noted Sensorium / Orientation: Somnolent, awakens easily, oriented to person and or iented to place Speech: speech normal Psych Psych Narrative: patient exhibits mild cognitive impairement Assessment & Plan Assessment/Plan (1) Bilateral pneumonia: PLAN: Plan 1. Sepsis secondary to acute aspiration pneumonia-patient will continue on Unasyn, she appears stable for transfer to PCU for further care #2 acute hypoxic respiratory failure secondary to aspiration pneumonia-nursing believes the patient has a component of central sleep apnea, she requires Airvo when she is sleeping #3 oropharyngeal dysphagia-etiology unknown at this time, this is chronic, speech will be working with the patient, she is n.p.o. #4 bipolar disorder-complicates care, management, recovery, and prognosis #5 chronic esophageal stricture-patient is being seen by gastroenterology, she underwent dilation of her esophageal stricture a few days ago. #6 chronic severe protein and caloric malnutrition-nutritional services will see the patient, she now has a PEG tube for feedings Total clinical time spent by myself addressing the patient's medical issues, reviewing all of the data, and collaborating with patient's care team: 35 minutes Charges/Coding Visit Charges Inpatient E&M: 51910 Subs Hosp L2
[2023-03-08] MEDS: Cinacalcet HCl 30 MG Tablet PO (10:15)
[2023-03-08] MEDS: Heparin Injection (Vial) 5,000 UNIT/ML VIAL 5000 UNIT SC ×2 (10:17→22:22)
[2023-03-08] MEDS: lamoTRIgine 100 MG Tablet 200 MG PO (10:18)
[2023-03-08] MEDS: methIMAzole 10 MG TABLET 5 MG PO (10:19)
[2023-03-08] MEDS: Memantine Hydrochloride 10 MG Tablet PO (10:19)
[2023-03-08] MEDS: Lactated Ringers 1,000 ML 75 ML IV ×2 (10:23→22:48)
[2023-03-08] MEDS: guaiFENesin 10 ML UDC (200MG/10ML) GT ×2 (12:09→17:45)
[2023-03-08] MEDS: LORazepam 2 MG/ML Syringe 0.5 MG IV (15:40)
[2023-03-08 16:20] LABS: Hematocrit 27.1 % (37-47)
[2023-03-08] MEDS: LORazepam 1 MG Tablet GT (22:22)
[2023-03-09] VITALS (10 sets, daily range): BP systolic 139–179; BP diastolic 84–105; PULSE 87–99; RESP 16–18; TEMP 36.6–36.8; O2SAT 93–95; BMI 20.7
[2023-03-09] MEDS: guaiFENesin 10 ML UDC (200MG/10ML) GT ×3 (00:36→11:46)
[2023-03-09] MEDS: hydrALAZINE 20 MG/ML Vial 5 MG IV ×2 (05:59→12:20)
[2023-03-09] MEDS: Sucralfate 1 GM Tablet PO ×4 (06:00→22:28)
[2023-03-09 06:33] LABS: Absolute Lymphocyte Count 0.75 X10^3/uL (0.83-4.51); Absolute Neutrophil Count 9.3 X10^3/uL (2.0-7.7); Basophil# 0.07 X10^3/uL; Basophil% 0.6 % (0-1); Eosinophil# 0.01 X10^3/uL; Eosinophils% 0.1 % (0-5); Hematocrit 30.4 % (37-47); Hemoglobin 8.3 g/dL (12.0-15.0); Lymphocyte # 0.75 X10^3/ul (0.83-4.51); Lymphocyte % 6.9 % (19-41); Mean Corp Hgb Conc 27.3 g/dL (32-36); Mean Corpuscular Hgb 28.1 pg (27.0-32.0); Mean Corpuscular Volume 103.1 fL (81-99); Mean Platelet Vol. 9.8 fl (6.2-12.0); Monocyte# 0.51 X10^3/uL; Monocyte% 4.7 % (0-10); NRBC Flagged by Analyzer 0.3 % (0-5); Neutrophil # 9.32 X10^3/uL (2.7-7.7); Neutrophil % 86.4 % (47-70); POSITIVE MORPHOLOGY YES; Platelet Count 169 K/mm3 (150-450); RBC Distribution Width CV 14.1 % (11.6-14.6); RBC Distribution Width SD 53.4 fl (35.1-43.9); Red Blood Count 2.95 M/mm3 (4.2-5.4); White Blood Count 10.8 K/mm3 (4.4-11.0)
[2023-03-09 06:35] LABS: Differential Indicated SCAN CRITERIA MET
[2023-03-09 06:59] LABS: Anion Gap 9 (5-15); BUN 46 mg/dL (7-18); BUN/Creat Ratio 25.4 RATIO (10-20); Calcium,Total 10.6 mg/dL (8.5-10.1); Chloride 127 mmol/L (98-107); Creatinine, Serum 1.81 mg/dL (0.55-1.02); EST Glomerular Filtration Rate 29 mL/min (>60); Est Glom Filt Rate - Afr Amer 35 mL/min (>60); Estimated Creatinine Clearance 24.73 ml/min; Glucose 96 mg/dL (74-106); Potassium 3.3 mmol/L (3.5-5.1); Sodium Level 157 mmol/L (136-145)
[2023-03-09 07:16] LABS: Macrocytosis 1+
[2023-03-09] MEDS: Tolterodine Tartrate 4 MG CAP.SA PO (08:03)
[2023-03-09] MEDS: Cinacalcet HCl 30 MG Tablet PO (08:03)
[2023-03-09] MEDS: lamoTRIgine 100 MG Tablet 200 MG PO (08:03)
[2023-03-09] MEDS: Heparin Injection (Vial) 5,000 UNIT/ML VIAL 5000 UNIT SC ×2 (08:03→22:28)
[2023-03-09] MEDS: Memantine Hydrochloride 10 MG Tablet PO (08:04)
[2023-03-09] MEDS: methIMAzole 10 MG TABLET 5 MG PO (08:04)
[2023-03-09] MEDS: LORazepam 1 MG Tablet GT (08:09)
[2023-03-09] MEDS: Losartan Potassium 25 MG Tablet GT (09:03)
[2023-03-09] MEDS: Potassium Chloride Oral Tablet 20 MEQ 40 MEQ GT (09:04)
[2023-03-09] MEDS: 0.9% Saline Lock 10 ML Syringe IV (09:05)
--- NOTE | 2023-03-09 10:32 | CASEMGMT ---
Social Work SW met w/pt and in room in regard to discharge plan. SW provided to pt's a list of [facility] facilities in network, via [place], complete with quality and resource use data, in network w/pt's insurance and in pt's preferred geographic area. They would like TCU. SW asked for additional choices, states if TCU cannot take pt they want to go back home w/[facility]. SW spoke w/them at length about the fact that pt was at home less than 24 hours after the last hospitalization, and that she is back here. It is this 's understanding that the pt's pneumonia was getting worse while she was here last time, and she was sent home. He states pt did not eat when home, and does not think pt's readmission had anything to do with her going home. After some discussion, continues to state if TCU cannot take pt he will take her home w/HHC. SW called TCU, referral made. SW will continue to follow, there may or may not be a bed available when pt is ready for discharge. PARMJIT Aceves
[2023-03-09] MEDS: Ondansetron 4 MG/2 ML Vial IV ×2 (11:46→17:24)
[2023-03-09] MEDS: LORazepam 1 MG Tablet PO (11:46)
--- NOTE | 2023-03-09 13:46 | CASEMGMT ---
TCU could take patient pending bed availability. Tyra JI
[2023-03-09] MEDS: Vital High Protein 1,000 ML 10 ML GT (13:54)
--- NOTE | 2023-03-09 15:12 | PN_ITS ---
Subjective Subjective Patient seen and examined. was by her bedside. She had no acute complaints. She denied any fever, chills, chest pain, palpitations, dizziness, nausea or vomiting. Has been asked if her medications could be adjusted namely her Ativan as she was taking it 4 times daily at home but she was receiving its twice daily here. She has remained hemodynamically stable. She is due for evaluation by speech therapy. Objective Data Objective Data Vital Signs: Vital Signs Temp Pulse Resp BP Pulse Ox O2 Del Method O2 Flow Rate 98.2 F 99 18 165/95 H 95 Nasal Cannula 2 03/09/23 12:20 03/09/23 12:20 03/09/23 12:20 03/09/23 12:20 03/09/23 12:20 03/09/23 14:18 03/09/23 12:20 FiO2 41 03/08/23 08:00 Oxygen Flow Rate (L/min) 2 Oxygen Delivery Method Nasal Cannula Weight: 124 lb 12.506 oz Body Mass Index (BMI) 20.7 Intake & Output: Intake and Output for Last 24 Hours 03/07/23 03/08/23 03/09/23 23:59 23:59 23:59 Intake Total 3981.00 / 4081.00 2605.25 / 2605.25 1248.25 / 1248.25 Output Total 650 / 650 1550 / 1550 600 / 600 Balance 3331.00 / 3431.00 1055.25 / 1055.25 648.25 / 648.25 Medical Nutrition Assessment Dietitian: Malnutrition Criteria Met Start: 03/07/23 10:37 Freq: Status: Active Protocol: Document 03/09/23 12:43 RMA (Rec: 03/09/23 12:43 RMA [id number]) Nutrition Malnutrition Evidence of Malnutrition Exists Yes Malnutrition (severe): Chronic Evidenced By Suboptimal Energy Intake ( Severe),Weight Loss (Severe) Intake Problem Inadequate Oral Intake Etiology related to difficulty swallowing Signs/Symptoms as evidenced by NPO Status Active Problem Clinical Problem Chronic Disease or Condition Related Malnutrition Etiology chronic, severe malnutrition related to inadequate oral intake d/t swallowing difficulty Signs/Symptoms as evidenced by unintentional 15.6% wt loss x 5 months; estimated PO intake meeting < 75% of estimated energy needs > 5 months Status Active Problem Recommendation Dietitian Recommendations/Changes 1.) Pharmacy does not have Osmolite tube feeding; confirmed today; pt has Osmolite 1.2 Mp at home. 2.) Pt is to remain NPO for now; [facility] [employer] working with pt for possible pleasure feeds as tolerated. 3.) Per Dr. Verma order to start enteral nutrition support: will order Vital HP to start @ 10 ml/hr with 100 ml water flush Q 4 hours. Recommend increase TF rate as tolerated by 10 ml Q 8-12 hours until goal rate of 50 ml /hr is achieved. TF at goal and water flushes will provide 1200 kcal, 105 gm protein and 1603 ml free water per day. As TF tolerance established, will transition to bolus feedings for homegoing. Pt was delivered Osmolite 1.2 Mp at home but, has not tried using it yet. 4.) PO as tolerated with Regular diet and texture/ consistency per [facility] [employer]; pleasure feeds only when ready for PO. Lab / Micro Data Result Diagrams: 03/09/23 06:25 03/09/23 06:25 Labs: Laboratory Results - last 24 hr 03/08/23 16:10: Hgb 8.0 L, Hct 27.1 L 03/09/23 06:25: WBC 10.8, RBC 2.95 L, Hgb 8.3 L, Hct 30.4 L, MCV 103.1 H D, MCH 28.1, MCHC 27.3 L D, RDW Std Deviation 53.4 H, RDW Coeff of Lee 14.1, Plt Count 169, MPV 9.8, Immature Gran % (Auto) 1.300 H, Neut % (Auto) 86.4 H, Lymph % (Auto) 6.9 L, [place] % (Auto) 4.7, Eos % (Auto) 0.1, Baso % (Auto) 0.6, Absolute Neuts (auto) 9.3 H, Absolute Lymphs (auto) 0.75 L, Nucleated RBC % 0.3, Macrocytosis 1+ 03/09/23 06:25: Sodium 157 H, Potassium 3.3 L, Chloride 127 H*, Carbon Dioxide 21.0, Anion Gap 9, BUN 46 H, Creatinine 1.81 H, Estim Creat Clear Calc 24.73, Est GFR (MDRD) Af Amer 35 L, Est GFR (MDRD) Non-Af 29 L, BUN/Creatinine Ratio 25.4 H, Glucose 96, Calcium 10.6 H Micro: Microbiology 03/07/23 03:15 Blood Culture (Wb) - Anticubital Right Blood Culture - Prelim inary No growth in 48 hours. 03/07/23 02:30 Blood Culture (Wb) - Anticubital Right Blood Culture - Preliminary No growth in 48 hours. 03/07/23 02:23 Nasal Secretion SARS-CoV-2 & FLU Antigen (Rapid) - Final Radiography Diagnostic Testing: Radiology Impression Echocardiogram 03/08/23 08:36 Interpretation Summary The left ventricular ejection fraction is 65 %. Right ventricular systolic pressure estimated to be 55 mmHg. Mild tricuspid valve insufficiency. Ordering Physician: Lenard Nicole Referring Physician: JOAN VAIL Performed By: Alyssa Zarate RDCS Physical Exam Const alert, oriented x3 and no apparent distress Constitutional Narrative: Frail HEENT normocephalic, head/scalp atraumatic, moist oral mucous membranes and oropharynx normal Mouth: dry mucous membranes Neck no lymphadenopathy and supple Lymph Lymphatic: no lymphadenopathy noted Resp normal respiratory effort, normal air movement and clear to auscultation bilaterally Cardio regular rhythm, S1 normal heart sound, S2 normal heart sound and no murmurs GI normal to inspection, nondistended, normoactive bowel sounds, soft to palpation, non-tender and non-distended GI Narrative: PEG tube in situ Extremity normal capillary refill, no clubbing, cyanosis or edema and no calf tenderness Skin General Skin Exam: no breakdown Neuro CN's II-XII intact bilaterally and no focal motor deficits Psych thought process normal and cooperative Appearance: appropriate Assessment & Plan Assessment/Plan (1) Bilateral pneumonia: (2) Acute respiratory failure with hypoxia: PLAN: Plan #Aspiration pneumonia * on IV unasyn. gavin is improving, though she is still coughing * breathing treatment with bronchodilators * Titrate oxygen to maintain saturation above 90%. * #Acute hypoxic respiratory failure due to aspiration pneumonia: As above. #Hypernatremia * Sodium is 157. Patient started on D5W infusion> Will trend sodium * #Hyperkalemia: potassium is 3.3. Will replace and trend,. #Dysphagia: Thought to be due to her esophageal stricture. She had EGD with dilatation of the esophageal stricture. Speech therapy on board. She is currently NPO. Has an NG tube in place. On tube feeds #CHronic esophageal stricture: seen by GI, and had dilatation done during this admission. #Chronic severe protein calorie malnutrition: Nutrition on board. PEG tube in place for feeds. #Bipolar disorder: On ativan. Has been requested for dose to be increased to 4 times daily which is what she takes at home. Adjustments made. #Dementia: On memantine #Hypothyroidism: On methimazole DVT prophylaxis: Lovenox Total time spent on evaluation and management of patient, reviewing chart and specialist notes, discussing plan with patient and his , discussion with nursing and ancillary staff as well as documentation: 50 mins Charges/Coding Visit Charges Inpatient E&M: 44893 Subs Hosp L3
--- NOTE | 2023-03-09 16:24 | CHAPLAIN ---
Type of Pastoral Visit _x__ Initial Visit ___ Follow-up Visit ___ On-call Visit ___ General Patient Visit ___ Spiritual Assessment ___ Family Conference ___ Bereavement ___ Rapid Response ___ Code Blue ___ Other (describe below) Pastoral Care Referral From _x__ Patient ___ Family ___ Nurse ___ Physician ___ Molded Goods Spot Picker ___ Salesperson Yard Goods ___ Other (describe below) Sacrament/Intervention _x__ Active listening ___ Anointing ___ Bahai ___ Bereavement ___ Communion ___ Leeanne exploration ___ _x__ Life review _x__ Prayer ___ Reconciliation ___ Sacrament of Sick _x__ Supportive presence ___ Wedding ___ Other (describe below) Pastoral Comments took long time with this patient as she was expressive and slow to respond at times; pt gives details of her health and her concerns; pt is very clear in expressing her feelings which is described as SAD and she cried much during this visit; lots of listening, reassurance, and prayer given; pt is kind in saying nice things about her care and the staff
--- NOTE | 2023-03-09 16:34 | CASEMGMT ---
RN VERONICA NOTE: Call placed to [facility] and spoke w/Cindy. She was made aware pt was re-admitted to [facility] on Sat and tentative plan is [facility] TCU @ discharge. Phone # to RISK CONTROL SPECIALIST VERONICA, Krystal, provided. Shanna CHICASN RN CM
[2023-03-09] MEDS: LORazepam 1 MG Tablet 2 MG GT (22:29)
[2023-03-10] VITALS (9 sets, daily range): BP systolic 130–166; BP diastolic 68–94; PULSE 87–99; RESP 16–20; TEMP 36.6–37.2; O2SAT 91–98; BMI 20.5
[2023-03-10] MEDS: 0.9% Saline Lock 10 ML Syringe IV ×3 (00:48→15:45)
[2023-03-10] MEDS: guaiFENesin 10 ML UDC (200MG/10ML) GT ×4 (00:48→17:56)
[2023-03-10] MEDS: Ondansetron 4 MG/2 ML Vial IV ×4 (00:48→17:57)
[2023-03-10 06:08] LABS: Absolute Lymphocyte Count 1.02 X10^3/uL (0.83-4.51); Absolute Neutrophil Count 7.9 X10^3/uL (2.0-7.7); Basophil# 0.02 X10^3/uL; Basophil% 0.2 % (0-1); Eosinophil# 0.04 X10^3/uL; Eosinophils% 0.4 % (0-5); Hematocrit 25.3 % (37-47); Hemoglobin 7.6 g/dL (12.0-15.0); Lymphocyte # 1.02 X10^3/ul (0.83-4.51); Lymphocyte % 10.4 % (19-41); Mean Corpuscular Hgb 28.1 pg (27.0-32.0); Mean Corpuscular Volume 93.7 fL (81-99); Mean Platelet Vol. 9.2 fl (6.2-12.0); Monocyte# 0.64 X10^3/uL; Monocyte% 6.5 % (0-10); NRBC Flagged by Analyzer 0.2 % (0-5); Neutrophil % 80.5 % (47-70); Platelet Count 158 K/mm3 (150-450); RBC Distribution Width CV 14.4 % (11.6-14.6); RBC Distribution Width SD 48.8 fl (35.1-43.9); White Blood Count 9.8 K/mm3 (4.4-11.0)
[2023-03-10] MEDS: Sucralfate 1 GM Tablet PO (06:28)
[2023-03-10 06:33] LABS: Anion Gap 1 (5-15); BUN 41 mg/dL (7-18); BUN/Creat Ratio 21.4 RATIO (10-20); Calcium,Total 10.2 mg/dL (8.5-10.1); Chloride 122 mmol/L (98-107); Creatinine, Serum 1.92 mg/dL (0.55-1.02); EST Glomerular Filtration Rate 27 mL/min (>60); Est Glom Filt Rate - Afr Amer 33 mL/min (>60); Estimated Creatinine Clearance 23.11 ml/min; Glucose 109 mg/dL (74-106); Potassium 3.2 mmol/L (3.5-5.1); Sodium Level 154 mmol/L (136-145)
[2023-03-10] MEDS: Memantine Hydrochloride 10 MG Tablet PO (09:18)
[2023-03-10] MEDS: LORazepam 1 MG Tablet 2 MG GT ×2 (09:18→20:46)
[2023-03-10] MEDS: Tolterodine Tartrate 4 MG CAP.SA PO (09:18)
[2023-03-10] MEDS: lamoTRIgine 100 MG Tablet 200 MG PO (09:18)
[2023-03-10] MEDS: Losartan Potassium 25 MG Tablet GT (09:18)
[2023-03-10] MEDS: Heparin Injection (Vial) 5,000 UNIT/ML VIAL 5000 UNIT SC ×2 (09:19→20:46)
--- NOTE | 2023-03-10 09:19 | PN_ITS ---
Subjective Subjective Patient seen and examined. She had no active complaints and had an uneventful night. She denies any abdominal pain, fever or chills, nausea or vomiting or any other symptoms. Review of systems otherwise negative. She has remained hemodynamically stable. Objective Data Objective Data Vital Signs: Vital Signs Temp Pulse Resp BP Pulse Ox O2 Del Method O2 Flow Rate 98.6 F 87 16 134/76 H 93 Nasal Cannula 2 03/10/23 06:20 03/10/23 06:20 03/10/23 06:20 03/10/23 06:20 03/10/23 06:20 03/10/23 06:20 03/10/23 06:20 FiO2 41 03/08/23 08:00 Oxygen Flow Rate (L/min) 2 Oxygen Delivery Method Nasal Cannula Weight: 123 lb 10.869 oz Body Mass Index (BMI) 20.5 Intake & Output: Intake and Output for Last 24 Hours 03/08/23 03/09/23 03/10/23 23:59 23:59 23:59 Intake Total 2605.25 / 2605.25 2403.58 / 2403.58 1110.5 / 1110.5 Output Total 1550 / 1550 1100 / 1600 1800 / 1800 Balance 1055.25 / 1055.25 1303.58 / 803.58 -689.5 / -689.5 Medical Nutrition Assessment Dietitian: Malnutrition Criteria Met Start: 03/07/23 10:37 Freq: Status: Active Protocol: Document 03/09/23 12:43 RMA (Rec: 03/09/23 12:43 [id number]) Nutrition Malnutrition Evidence of Malnutrition Exists Yes Malnutrition (severe): Chronic Evidenced By Suboptimal Energy Intake ( Severe),Weight Loss (Severe) Intake Problem Inadequate Oral Intake Etiology related to difficulty swallowing Signs/Symptoms as evidenced by NPO Status Active Problem Clinical Problem Chronic Disease or Condition Related Malnutrition Etiology chronic, severe malnutrition related to inadequate oral intake d/t swallowing difficulty Signs/Symptoms as evidenced by unintentional 15.6% wt loss x 5 months; estimated PO intake meeting < 75% of estimated energy needs > 5 months Status Active Problem Recommendation Dietitian Recommendations/Changes 1.) Pharmacy does not have Osmolite tube feeding; confirmed today; pt has Osmolite 1.2 Mp at home. 2.) Pt is to remain NPO for now; PLATFORM INSPECTOR working with pt for possible pleasure feeds as tolerated. 3.) Per Dr. Verma order to start enteral nutrition support: will order Vital HP to start @ 10 ml/hr with 100 ml water flush Q 4 hours. Recommend increase TF rate as tolerated by 10 ml Q 8-12 hours until goal rate of 50 ml /hr is achieved. TF at goal and water flushes will provide 1200 kcal, 105 gm protein and 1603 ml free water per day. As TF tolerance established, will transition to bolus feedings for homegoing. Pt was delivered Osmolite 1.2 Mp at home but, has not tried using it yet. 4.) PO as tolerated with Regular diet and texture/ consistency per PLATFORM INSPECTOR; pleasure feeds only when ready for PO. Lab / Micro Data Result Diagrams: 03/10/23 05:50 03/10/23 05:50 Labs: Laboratory Results - last 24 hr 03/10/23 05:50: WBC 9.8, RBC 2.70 L, Hgb 7.6 L, Hct 25.3 L, MCV 93.7 D, MCH 28.1, MCHC 30.0 L D, RDW Std Deviation 48.8 H, RDW Coeff of Lee 14.4, Plt Count 158, MPV 9.2, Immature Gran % (Auto) 2.000 H, Neut % (Auto) 80.5 H, Lymph % (Auto) 10.4 L, [place] % (Auto) 6.5, Eos % (Auto) 0.4, Baso % (Auto) 0.2, Absolute Neuts (auto) 7.9 H, Absolute Lymphs (auto) 1.02, Nucleated RBC % 0.2 03/10/23 05:50: Sodium 154 H, Potassium 3.2 L, Chloride 122 H, Carbon Dioxide 31.0, Anion Gap 1 L, BUN 41 H, Creatinine 1.92 H, Estim Creat Clear Calc 23.11, Est GFR (MDRD) Af Amer 33 L, Est GFR (MDRD) Non-Af 27 L, BUN/Creatinine Ratio 21.4 H, Glucose 109 H, Calcium 10.2 H Micro: Microbiology 03/07/23 03:15 Blood Culture (Wb) - Anticubital Right Blood Culture - Preliminary No growth in 48 hours. 03/07/23 02:30 Blood Culture (Wb) - Anticubital Right Blood Culture - Preliminary No growth in 48 hours. 03/07/23 02:23 Nasal Secretion SARS-CoV-2 & FLU Antigen (Rapid) - Final Radiography Diagnostic Testing: Radiology Impression Echocardiogram 03/08/23 08:36 Interpretation Summary The left ventricular ejection fraction is 65 %. Right ventricular systolic pressure estimated to be 55 mmHg. Mild tricuspid valve insufficiency. Ordering Physician: Lenard Nicole Referring Physician: JOAN VAIL Performed By: Alyssa Zarate RDCS Physical Exam Const alert, oriented x3 and no apparent distress Constitutional Narrative: Frail General Appearance: cooperative and well developed HEENT normocephalic, head/scalp atraumatic, moist oral mucous membranes and oropharynx normal Eyes PERRL and EOMs intact bilaterally Neck no lymphadenopathy, supple and no JVD Lymph Lymphatic: no lymphadenopathy noted Resp normal respiratory effort, normal air movement and clear to auscultation bilaterally Cardio regular rate, regular rhythm, S1 normal heart sound, S2 normal heart sound and no murmurs GI normal to inspection, nondistended, normoactive bowel sounds, soft to palpation, non-tender and non-distended GI Narrative: PEG tube in situ Extremity normal capillary refill, no clubbing, cyanosis or edema and no calf tenderness Skin General Skin Exam: no breakdown Neuro CN's II-XII intact bilaterally and no focal motor deficits Psych thought process normal and cooperative Appearance: appropriate Assessment & Plan Assessment/Plan (1) Bilateral pneumonia: (2) Acute respiratory failure with hypoxia: PLAN: Plan #Aspiration pneumonia * on IV unasyn. now on 2L of oxygen by nasal canula * breathing treatment with bronchodilators * Titrate oxygen to maintain saturation above 90%. * #Acute hypoxic respiratory failure due to aspiration pneumonia: As above. #Hypernatremia * Sodium is down to 152 today. Continue D5W. Will trend sodium * #Hyperkalemia: potassium is 3.2. Will replace and trend,. #Dysphagia: * Thought to be due to her esophageal stricture. She had EGD with dilatation of the esophageal stricture. * Speech therapy on board. She is currently NPO. * Has an NG tube in place. On tube feeds #CHronic esophageal stricture: * seen by GI, and had dilatation done during this admission. * says she had an MRI of the esophagus ordered for tomorrow to evaluate if there is a neurological cause of the stricture #Chronic severe protein calorie malnutrition: Nutrition on board. PEG tube in place for feeds. #Bipolar disorder: On ativan. de. #Dementia: On memantine #Hypothyroidism: On methimazole DVT prophylaxis: Lovenox Total time spent on evaluation and management of patient, reviewing chart and specialist notes, discussing plan with patient and his , discussion with nursing and ancillary staff as well as documentation: 45 mins Charges/Coding Visit Charges Inpatient E&M: 73976 Subs Hosp L2
[2023-03-10] MEDS: Potassium Chloride Oral Tablet 20 MEQ 60 MEQ GT (09:23)
[2023-03-10 09:55] LABS: Pathologist Review Reviewed
[2023-03-10] MEDS: hydrALAZINE 20 MG/ML Vial 5 MG IV (15:45)
[2023-03-10 16:09] LABS: Albumin 2.2 g/dL (2.9-4.4); Alpha-1-Globulins 0.5 g/dL (0.0-0.4); Alpha-2-Globulins 0.9 g/dL (0.4-1.0); Gamma Globulin 0.4 g/dL (0.4-1.8); Immunoglobulin A 176 mg/dL (64-422); Immunoglobulin G 494 mg/dL (586-1602); Immunoglobulin M 50 mg/dL (26-217); PROEL- TOTAL PROTEIN 4.8 g/dL (6.0-8.5)
[2023-03-10] MEDS: LORazepam 1 MG Tablet PO (17:57)
[2023-03-10] MEDS: miSOPROStol 200 MCG Tablet GT ×2 (17:58→20:45)
--- NOTE | 2023-03-10 19:11 | PCM.PROGNOTE ---
Subjective Subjective Patient is doing well without any complaints. She is tolerating decreased dose of benzodiazepines. Objective Data Objective Data Vital Signs: Vital Signs Temp Pulse Resp BP Pulse Ox O2 Del Method O2 Flow Rate 98.3 F 97 18 149/93 H 98 Nasal Cannula 2 03/10/23 16:45 03/10/23 16:45 03/10/23 16:45 03/10/23 16:45 03/10/23 16:45 03/10/23 16:45 03/10/23 16:45 FiO2 41 03/08/23 08:00 Oxygen Flow Rate (L/min) 2 Oxygen Delivery Method Nasal Cannula Weight: 123 lb 10.869 oz Body Mass Index (BMI) 20.5 Intake & Output: Intake and Output for Last 24 Hours 03/08/23 03/09/23 03/10/23 23:59 23:59 23:59 Intake Total 2605.25 / 2605.25 2403.58 / 2403.58 2133.84 / 2133.84 Output Total 1550 / 1550 1100 / 1600 3100 / 3100 Balance 1055.25 / 1055.25 1303.58 / 803.58 -966.16 / -966.16 Medical Nutrition Assessment Dietitian: Malnutrition Criteria Met Start: 03/07/23 10:37 Freq: Status: Active Protocol: Document 03/10/23 11:15 (Rec: 03/10/23 13:15 [id number]) Nutrition Malnutrition Evidence of Malnutrition Exists Yes Malnutrition (severe): Chronic Evidenced By Suboptimal Energy Intake ( Severe),Weight Loss (Severe) Intake Problem Inadequate Oral Intake Etiology related to difficulty swallowing Signs/Symptoms as evidenced by NPO Status Active Problem Clinical Problem Chronic Disease or Condition Related Malnutrition Etiology chronic, severe malnutrition related to inadequate oral intake d/t swallowing difficulty Signs/Symptoms as evidenced by unintentional 15.6% wt loss x 5 months; estimated PO intake meeting < 75% of estimated energy needs > 5 months Status Active Problem Recommendation Dietitian Recommendations/Changes 1.) Continue via PEG Vital HP at goal rate of 50mL/hour w/ 100mL H2O flush every 4 hours to provide 1200 calories, 105 g protein, and 1603mL fluid/ day. Advance from 20mL/hour by 10mL every 8-12 hours as tolerated until goal rate achieved. 2.) Pt is to remain NPO for now; MARINE PIPEFITTER working with pt for possible pleasure feeds as tolerated. Regular diet if/ when indicated. 3.) As TF tolerance established, will transition to bolus feedings for homegoing. Lab / Micro Data Result Diagrams: 03/10/23 05:50 03/10/23 05:50 Labs: Laboratory Results - last 24 hr 03/07/23 02:23: Diff Path Review Reviewed 03/09/23 10:46: Total Protein (PEP) 4.8 L, Globulin 2.6, IgG 494 L, IgA 176, IgM 50, Immunofixation Screen Comment, Albumin (BELÉN) 2.2 L, Albumin/Globulin (BELÉN) 0.9, Cidby-6-Gocbebwma BELÉN 0.5 H, Pqhey-5-Rjghcclch BELÉN 0.9, Beta-Globulins (BELÉN) 0.8, Gamma Globulins (BELÉN) 0.4, BELÉN M-Cheko , BELÉN Comments Comment 03/10/23 05:50: WBC 9.8, RBC 2.70 L, Hgb 7.6 L, Hct 25.3 L, MCV 93.7 D, MCH 28.1, MCHC 30.0 L D, RDW Std Deviation 48.8 H, RDW Coeff of Lee 14.4, Plt Count 158, MPV 9.2, Immature Gran % (Auto) 2.000 H, Neut % (Auto) 80.5 H, Lymph % (Auto) 10.4 L, [place] % (Auto) 6.5, Eos % (Auto) 0.4, Baso % (Auto) 0.2, Absolute Neuts (auto) 7.9 H, Absolute Lymphs (auto) 1.02, Nucleated RBC % 0.2 03/10/23 05:50: Sodium 154 H, Potassium 3.2 L, Chloride 122 H, Carbon Dioxide 31.0, Anion Gap 1 L, BUN 41 H, Creatinine 1.92 H, Estim Creat Clear Calc 23.11, Est GFR (MDRD) Af Amer 33 L, Est GFR (MDRD) Non-Af 27 L, BUN/Creatinine Ratio 21.4 H, Glucose 109 H, Calcium 10.2 H Micro: Microbiology 03/07/23 03:15 Blood Culture (Wb) - Anticubital Right Blood Culture - Preliminary No growth in 48 hours. 03/07/23 02:30 Blood Culture (Wb) - Anticubital Right Blood Culture - Preliminary No growth in 48 hours. 03/07/23 02:23 Nasal Secretion SARS-CoV-2 & FLU Antigen (Rapid) - Final Physical Exam Const alert, oriented x3 and no apparent distress Constitutional Narrative: Frail General Appearance: cooperative and well developed HEENT normocephalic, head/scalp atraumatic, moist oral mucous membranes and oropharynx normal Eyes PERRL and EOMs intact bilaterally Neck no lymphadenopathy, supple and no JVD Lymph Lymphatic: no lymphadenopathy noted Resp normal respiratory effort, normal air movement and clear to auscultation bilaterally Cardio regular rate, regular rhythm, S1 normal heart sound, S2 normal heart sound and no murmurs GI normal to inspection, nondistended, normoactive bowel sounds, soft to palpation, non-tender and non-distended GI Narrative: PEG tube in situ Extremity normal capillary refill, no clubbing, cyanosis or edema and no calf tenderness Skin General Skin Exam: no breakdown Neuro CN's II-XII intact bilaterally and no focal motor deficits Psych thought process normal and cooperative Appearance: appropriate Assessment & Plan Assessment/Plan (1) Bilateral pneumonia: PLAN: She has a history of recurrent aspiration pneumonias in the past. She has marked oropharyngeal and esophageal dysphagia from unknown reason. I suspect she has complications from parkinsonism that is contributing to possible upper motor neuron problems contributing to aspiration pneumonia. There is a possibility that she aspirated tube feedings. I agree with empiric antibiotic therapy and she is being seen by photonics engineering technologist service. (2) Acute respiratory failure with hypoxia: PLAN: Agree with holding tube feedings for now. We can do a Gastrografin study to see if tube feedings are retroflexing back up into the esophagus past esophageal stricture. (3) Secondary parkinsonism: PLAN: Possibly secondary to bipolar medications specifically years of lithium usage (4) Esophageal stricture: PLAN: Status post dilation in the past. Protonix 40 mg twice daily. (5) Gastric paresis: PLAN: Recommend Reglan therapy 10 mg every 6 hours IV PLAN: Plan I had a long talk with her psychiatrist for about 45 minutes and he explained to me how severe her bipolar disorder is with catatonia. I asked him is not a possibility that we can wean her off of the benzodiazepines. He said she was on as much as 32 mg of Klonopin per day and that was weaned down to about 60 mg of Ativan. He said that was the only way to keep her from going into catatonia after undergoing extensive electroshock therapy for several years after becoming refractory to all typical psychotics and antipsychotics. I feel that most of her enteric nervous system particularly involving the esophagus and the stomach(esophageal dysphagia and gastroparesis) are likely secondary to medication side effect. When she saw the neurologist she was thought to have secondary parkinsonian symptoms. This also can be secondary to excessive benzodiazepine usage over multiple years. He said the medical recommendation that he has for now is mostly palliative and not curative. I do not want her to go into catatonia therefore I will not decrease her benzodiazepines down any further. Charges/Coding Visit Charges Inpatient E&M: 95895 Subs Hosp L3
[2023-03-11] MEDS: Ondansetron 4 MG/2 ML Vial IV ×5 (00:53→22:47)
[2023-03-11] MEDS: guaiFENesin 10 ML UDC (200MG/10ML) GT ×5 (00:56→22:47)
[2023-03-11 03:26] VITALS: BMI 20.7
[2023-03-11] MEDS: LORazepam 1 MG Tablet PO (05:13)
[2023-03-11] MEDS: Vital High Protein 1,000 ML 30 ML GT (05:14)
[2023-03-11 05:52] VITALS: BP 125/66; PULSE 88; RESP 20; TEMP 37.2; O2SAT 96
--- NOTE | 2023-03-11 05:55 | MRI_ITS ---
EXAM: MR HEAD WITHOUT INTRAVENOUS CONTRAST CLINICAL INDICATION: oropharyngeal dysphagia TECHNIQUE: Multiplanar and multisequence MR images of the brain were obtained without intravenous contrast. COMPARISON: CT head without contrast 10/06/2022. FINDINGS: BRAIN AND EXTRA-AXIAL SPACES: Periventricular white matter T2 FLAIR hyperintensity foci in both cerebral hemispheres are chronic white matter ischemic changes. No intra- or extra-axial hemorrhage. No intracranial mass or mass effect. Posterior fossa structures are unremarkable. No hydrocephalus. Basal cisterns are patent. No diffusion restriction throughout the brain parenchyma. SELLA: Unremarkable. Normal sella turcica, pituitary gland, infundibular stalk, optic chiasm and hypothalamus. AUDITORY SYSTEM: Unremarkable. The internal auditory canals are patent. BONES/JOINTS: Unremarkable. No discrete lytic or blastic abnormalities. SINUSES: Unremarkable as visualized. Clear. MASTOID AIR CELLS: Unremarkable as visualized. Clear. ORBITS: Unremarkable as visualized. Both globes, extraocular muscles, optic nerves and retrobulbar fat appear unremarkable. VASCULATURE: Unremarkable as visualized. Normal flow voids in the major intracranial circulation. MRI/Brain without Contrast IMPRESSION: 1. No MRI evidence of acute or subacute ischemic infarct or remote infarcts. 2. Chronic periventricular white matter ischemic changes in both cerebral hemispheres. Electronically Signed: Amos Ackerman MD at 14:17 EDT ,
[2023-03-11 06:06] LABS: Hematocrit 27.9 % (37-47); Hemoglobin 8.3 g/dL (12.0-15.0); Mean Corp Hgb Conc 29.7 g/dL (32-36); Mean Corpuscular Hgb 28.4 pg (27.0-32.0); Mean Corpuscular Volume 95.5 fL (81-99); Mean Platelet Vol. 10.2 fl (6.2-12.0); POSITIVE COUNT YES; POSITIVE MORPHOLOGY YES; Platelet Count 186 K/mm3 (150-450); RBC Distribution Width CV 14.3 % (11.6-14.6); RBC Distribution Width SD 49.5 fl (35.1-43.9); Red Blood Count 2.92 M/mm3 (4.2-5.4); White Blood Count 8.7 K/mm3 (4.4-11.0)
[2023-03-11 06:09] LABS: Differential Indicated MANUAL DIFF
[2023-03-11 06:24] LABS: Absolute Lymphocyte Count 0.96 X10^3/uL (0.83-4.51); Absolute Neutrophil Count 6.7 X10^3/uL (2.0-7.7); Lymphocyte 11 % (19-41); Monocyte 9 % (0-10); Myelocyte 3 % (0-0); Neutrophil-Segmented 77 % (47-70); Platelet Estimate MOD DEC (ADEQ); Red Cell Morphology NORM C+C NORMAL (NORM C&C); Total Cells Counted 100 (MANUAL DIFF)
[2023-03-11 07:08] LABS: Anion Gap 8 (5-15); BUN 40 mg/dL (7-18); BUN/Creat Ratio 21.7 RATIO (10-20); Chloride 123 mmol/L (98-107); Creatinine, Serum 1.84 mg/dL (0.55-1.02); EST Glomerular Filtration Rate 29 mL/min (>60); Est Glom Filt Rate - Afr Amer 35 mL/min (>60); Estimated Creatinine Clearance 24.29 ml/min; Glucose 117 mg/dL (74-106); Potassium 3.5 mmol/L (3.5-5.1); Sodium Level 157 mmol/L (136-145)
[2023-03-11] MEDS: methIMAzole 10 MG TABLET 5 MG PO (07:51)
[2023-03-11] MEDS: lamoTRIgine 100 MG Tablet 200 MG PO ×2 (07:53→15:51)
[2023-03-11] MEDS: Tolterodine Tartrate 4 MG CAP.SA PO (07:53)
[2023-03-11] MEDS: Losartan Potassium 25 MG Tablet GT (07:53)
[2023-03-11] MEDS: Cinacalcet HCl 30 MG Tablet PO (07:53)
[2023-03-11] MEDS: Memantine Hydrochloride 10 MG Tablet PO (07:54)
[2023-03-11] MEDS: Heparin Injection (Vial) 5,000 UNIT/ML VIAL 5000 UNIT SC ×2 (07:54→21:28)
[2023-03-11] MEDS: miSOPROStol 200 MCG Tablet GT ×4 (08:38→22:47)
[2023-03-11] MEDS: LORazepam 1 MG Tablet 2 MG GT ×2 (10:07→15:55)
--- NOTE | 2023-03-11 11:20 | PN_ITS ---
Subjective Subjective Patient seen and examined. She had no complaints. was by her bedside. Review of systems is otherwise negative. Sodium is up to 157. Objective Data Objective Data Vital Signs: Vital Signs Temp Pulse Resp BP Pulse Ox O2 Del Method O2 Flow Rate 99 F 88 20 H 125/66 H 96 Nasal Cannula 2 03/11/23 05:52 03/11/23 05:52 03/11/23 05:52 03/11/23 05:52 03/11/23 05:52 03/11/23 08:41 03/11/23 08:41 FiO2 41 03/08/23 08:00 Oxygen Flow Rate (L/min) 2 Oxygen Delivery Method Nasal Cannula Weight: 124 lb 8.979 oz Body Mass Index (BMI) 20.7 Intake & Output: Intake and Output for Last 24 Hours 03/09/23 03/10/23 03/11/23 23:59 23:59 23:59 Intake Total 2403.58 / 2403.58 3180.84 / 3180.84 1646.00 / 1646.00 Output Total 1100 / 1600 4650 / 4650 Balance 1303.58 / 803.58 -1469.16 / -1469.16 1646.00 / 1646.00 Medical Nutrition Assessment Dietitian: Malnutrition Criteria Met Start: 03/07/23 10:37 Freq: Status: Active Protocol: Document 03/10/23 11:15 (Rec: 03/10/23 13:15 [id number]) Nutrition Malnutrition Evidence of Malnutrition Exists Yes Malnutrition (severe): Chronic Evidenced By Suboptimal Energy Intake ( Severe),Weight Loss (Severe) Intake Problem Inadequate Oral Intake Etiology related to difficulty swallowing Signs/Symptoms as evidenced by NPO Status Active Problem Clinical Problem Chronic Disease or Condition Related Malnutrition Etiology chronic, severe malnutrition related to inadequate oral intake d/t swallowing difficulty Signs/Symptoms as evidenced by unintentional 15.6% wt loss x 5 months; estimated PO intake meeting < 75% of estimated energy needs > 5 months Status Active Problem Recommendation Dietitian Recommendations/Changes 1.) Continue via PEG Vital HP at goal rate of 50mL/hour w/ 100mL H2O flush every 4 hours to provide 1200 calories, 105 g protein, and 1603mL fluid/ day. Advance from 20mL/hour by 10mL every 8-12 hours as tolerated until goal rate achieved. 2.) Pt is to remain NPO for now; MIDDLE SCHOOL COMBINATION TEACHER working with pt for possible pleasure feeds as tolerated. Regular diet if/ when indicated. 3.) As TF tolerance established, will transition to bolus feedings for homegoing. Lab / Micro Data Result Diagrams: 03/11/23 05:07 03/11/23 05:07 Labs: Laboratory Results - last 24 hr 03/09/23 10:46: Total Protein (PEP) 4.8 L, Globulin 2.6, IgG 494 L, IgA 176, IgM 50, Immunofixation Screen Comment, Albumin (BELÉN) 2.2 L, Albumin/Globulin (BELÉN) 0.9, Wvqyo-3-Uocjtradv BELÉN 0.5 H, Tiqcw-9-Puqwvfqzq BELÉN 0.9, Beta-Globulins (BELÉN ) 0.8, Gamma Globulins (BELÉN) 0.4, BELÉN M-Cheko , BELÉN Comments Comment 03/11/23 05:07: WBC 8.7, RBC 2.92 L, Hgb 8.3 L, Hct 27.9 L, MCV 95.5, MCH 28.4, MCHC 29.7 L, RDW Std Deviation 49.5 H, RDW Coeff of Lee 14.3, Plt Count 186, MPV 10.2, Neut % (Auto) Not Reportable, Absolute Neuts (auto) 6.7, Absolute Lymphs (auto) 0.96, Total Counted 100, Neutrophils % (Manual) 77 H, Lymphocytes % (Manual) 11 L, Monocytes % (Manual) 9, Myelocytes % 3 H, Diff Path Review May foll, Platelet Estimate MOD DEC, RBC Morphology NORM C+C 03/11/23 05:07: Sodium 157 H, Potassium 3.5, Chloride 123 H, Carbon Dioxide 26.0, Anion Gap 8, BUN 40 H, Creatinine 1.84 H, Estim Creat Clear Calc 24.29, Est GFR (MDRD) Af Amer 35 L, Est GFR (MDRD) Non-Af 29 L, BUN/Creatinine Ratio 21.7 H, Glucose 117 H, Calcium 11.0 H Micro: Microbiology 03/07/23 03:15 Blood Culture (Wb) - Anticubital Right Blood Culture - Preliminary No growth in 48 hours. 03/07/23 02:30 Blood Culture (Wb) - Anticubital Right Blood Culture - Preliminary No growth in 48 hours. 03/07/23 02:23 Nasal Secretion SARS-CoV-2 & FLU Antigen (Rapid) - Final Physical Exam Const alert, oriented x3 and no apparent distress Constitutional Narrative: Frail General Appearance: cooperative and well developed HEENT normocephalic, head/scalp atraumatic, moist oral mucous membranes and oropharynx normal Eyes PERRL and EOMs intact bilaterally Neck no lymphadenopathy, supple and no JVD Lymph Lymphatic: no lymphadenopathy noted Resp normal respiratory effort, normal air movement and clear to auscultation bilaterally Cardio regular rate, regular rhythm, S1 normal heart sound, S2 normal heart sound and no murmurs GI normal to inspection, nondistended, normoactive bowel sounds, soft to palpation, non-tender and non-distended GI Narrative: PEG tube in situ Extremity normal capillary refill, no clubbing, cyanosis or edema and no calf tenderness Skin General Skin Exam: no breakdown Neuro CN's II-XII intact bilaterally and no focal motor deficits Psych thought process normal and cooperative Appearance: appropriate Assessment & Plan Assessment/Plan (1) Bilateral pneumonia: (2) Acute respiratory failure with hypoxia: PLAN: Plan #Aspiration pneumonia * on IV unasyn. now on 2L of oxygen by nasal canula * breathing treatment with bronchodilators * Titrate oxygen to maintain saturation above 90%. * #Acute hypoxic respiratory failure due to aspiration pneumonia: As above. #Hypernatremia * sodium is further up to 157 today. on D5W. Increase free water flushes to help with hypernatremia * #Hypokalemia: resolving. Potassium is 3.5 today. WIll continue monitoring. #Dysphagia: * Thought to be due to her esophageal stricture. She had EGD with dilatation of the esophageal stricture. * Speech therapy on board. She is currently NPO. * Has an NG tube in place. On tube feeds #CHronic esophageal stricture: * seen by GI, and had dilatation done during this admission. * for MRI of the brain today as ordered by her neurologist to evaluate for neurological cause of the stricture. #Chronic severe protein calorie malnutrition: Nutrition on board. PEG tube in place for feeds. #Bipolar disorder: On ativan. states she is prescribed ativan 2mg 4x daily as needed, but she takes it 2g tid scheduled at home. Will order ativan as 2mg tid #Dementia: On memantine #Hypothyroidism: On methimazole DVT prophylaxis: Lovenox Total time spent on evaluation and management of patient, reviewing chart and specialist notes, discussing plan with patient and his , discussion with nursing and ancillary staff as well as documentation: 43 mins Charges/Coding Visit Charges Inpatient E&M: 77777 Subs Hosp L2
[2023-03-11 13:43] VITALS: O2SAT 93
--- NOTE | 2023-03-11 17:46 | PN_ITS ---
Subjective Subjective Patient has been tolerating a diet a little better today. She was trialed on a diet today. She is having no signs or symptoms of worsening psychiatric illness on decrease in benzodiazepines. Objective Data Objective Data Vital Signs: Vital Signs Temp Pulse Resp BP Pulse Ox O2 Del Method O2 Flow Rate 99 F 88 20 H 125/66 H 93 Nasal Cannula 2 03/11/23 05:52 03/11/23 05:52 03/11/23 05:52 03/11/23 05:52 03/11/23 13:43 03/11/23 15:00 03/11/23 15:00 FiO2 41 03/08/23 08:00 Oxygen Flow Rate (L/min) 2 Oxygen Delivery Method Nasal Cannula Weight: 124 lb 8.979 oz Body Mass Index (BMI) 20.7 Intake & Output: Intake and Output for Last 24 Hours 03/09/23 03/10/23 03/11/23 23:59 23:59 23:59 Intake Total 2403.58 / 2403.58 3180.84 / 3180.84 2366.00 / 2366.00 Output Total 1100 / 1600 4650 / 4650 Balance 1303.58 / 803.58 -1469.16 / -1469.16 2366.00 / 2366.00 Medical Nutrition Assessment Dietitian: Malnutrition Criteria Met Start: 03/07/23 10:37 Freq: Status: Active Protocol: Document 03/10/23 11:15 AG (Rec: 03/10/23 13:15 [id number]) Nutrition Malnutrition Evidence of Malnutrition Exists Yes Malnutrition (severe): Chronic Evidenced By Suboptimal Energy Intake ( Severe),Weight Loss (Severe) Intake Problem Inadequate Oral Intake Etiology related to difficulty swallowing Signs/Symptoms as evidenced by NPO Status Active Problem Clinical Problem Chronic Disease or Condition Related Malnutrition Etiology chronic, severe malnutrition related to inadequate oral intake d/t swallowing difficulty Signs/Symptoms as evidenced by unintentional 15.6% wt loss x 5 months; estimated PO intake meeting < 75% of estimated energy needs > 5 months Status Active Problem Recommendation Dietitian Recommendations/Changes 1.) Continue via PEG Vital HP at goal rate of 50mL/hour w/ 100mL H2O flush every 4 hours to provide 1200 calories, 105 g protein, and 1603mL fluid/ day. Advance from 20mL/hour by 10mL every 8-12 hours as tolerated until goal rate achieved. 2.) Pt is to remain NPO for now; PAYROLL SUPERVISOR working with pt for possible pleasure feeds as tolerated. Regular diet if/ when indicated. 3.) As TF tolerance established, will transition to bolus feedings for homegoing. Lab / Micro Data Result Diagrams: 03/11/23 05:07 03/11/23 05:07 Labs: Laboratory Results - last 24 hr 03/09/23 12:03: Urine Immunofixation Comment 03/11/23 05:07: WBC 8.7, RBC 2.92 L, Hgb 8.3 L, Hct 27.9 L, MCV 95.5, MCH 28.4, MCHC 29.7 L, RDW Std Deviation 49.5 H, RDW Coeff of Lee 14.3, Plt Count 186, MPV 10.2, Neut % (Auto) Not Reportable, Absolute Neuts (auto) 6.7, Absolute Lymphs (auto) 0.96, Total Counted 100, Neutrophils % (Manual) 77 H, Lymphocytes % (Manual) 11 L, Monocytes % (Manual) 9, Myelocytes % 3 H, Diff Path Review May foll, Platelet Estimate MOD DEC, RBC Morphology NORM C+C 03/11/23 05:07: Sodium 157 H, Potassium 3.5, Chloride 123 H, Carbon Dioxide 26.0, Anion Gap 8, BUN 40 H, Creatinine 1.84 H, Estim Creat Clear Calc 24.29, Est GFR (MDRD) Af Amer 35 L, Est GFR (MDRD) Non-Af 29 L, BUN/Creatinine Ratio 21.7 H, Glucose 117 H, Calcium 11.0 H Micro: Microbiology 03/07/23 03:15 Blood Culture (Wb) - Anticubital Right Blood Culture - Preliminary No growth in 48 hours. 03/07/23 02:30 Blood Culture (Wb) - Anticubital Right Blood Culture - Preliminary No growth in 48 hours. 03/07/23 02:23 Nasal Secretion SARS-CoV-2 & FLU Antigen (Rapid) - Final Radiography Diagnostic Testing: Radiology Impression Brain MRI 03/11/23 05:55 IMPRESSION: 1. No MRI evidence of acute or subacute ischemic infarct or remote infarcts. 2. Chronic periventricular white matter ischemic changes in both cerebral hemispheres. Electronically Signed: Amos Ackerman MD at 14:17 EDT , Physical Exam Const alert, oriented x3 and no apparent distress Constitutional Narrative: Frail General Appearance: cooperative and well developed HEENT normocephalic, head/scalp atraumatic, moist oral mucous membranes and oropharynx normal Eyes PERRL and EOMs intact bilaterally Neck no lymphadenopathy, supple and no JVD Lymph Lymphatic: no lymphadenopathy noted Resp normal respiratory effort, normal air movement and clear to auscultation bilat erally Cardio regular rate, regular rhythm, S1 normal heart sound, S2 normal heart sound and no murmurs GI normal to inspection, nondistended, normoactive bowel sounds, soft to palpation, non-tender and non-distended GI Narrative: PEG tube in situ Extremity normal capillary refill, no clubbing, cyanosis or edema and no calf tenderness Skin General Skin Exam: no breakdown Neuro CN's II-XII intact bilaterally and no focal motor deficits Psych thought process normal and cooperative Appearance: appropriate Assessment & Plan Assessment/Plan (1) Bilateral pneumonia: PLAN: She has a history of recurrent aspiration pneumonias in the past. She has marked oropharyngeal and esophageal dysphagia from unknown reason. I suspect she has complications from parkinsonism that is contributing to possible upper motor neuron problems contributing to aspiration pneumonia. There is a possibility that she aspirated tube feedings. I agree with empiric antibiotic therapy and she is being seen by forepart reducer service. (2) Acute respiratory failure with hypoxia: PLAN: Agree with holding tube feedings for now. We can do a Gastrografin study to see if tube feedings are retroflexing back up into the esophagus past esophageal stricture. (3) Secondary parkinsonism: PLAN: Possibly secondary to bipolar medications specifically years of lithium usage (4) Esophageal stricture: PLAN: Status post dilation in the past. Protonix 40 mg twice daily. (5) Gastric paresis: PLAN: Recommend Reglan therapy 10 mg every 6 hours IV PLAN: Plan I had a long talk with her psychiatrist for about 45 minutes and he explained to me how severe her bipolar disorder is with catatonia. I asked him is not a possibility that we can wean her off of the benzodiazepines. He said she was on as much as 32 mg of Klonopin per day and that was weaned down to about 60 mg of Ativan. He said that was the only way to keep her from going into catatonia after undergoing extensive electroshock therapy for several years after becoming refractory to all typical psychotics and antipsychotics. I feel that most of her enteric nervous system particularly involving the esophagus and the stomach(esophageal dysphagia and gastroparesis) are likely secondary to medication side effect. When she saw the neurologist she was thought to have secondary parkinsonian symptoms. This also can be secondary to excessive benzodiazepine usage over multiple years. He said the medical recommendation that he has for now is mostly palliative and not curative. I do not want her to go into catatonia therefore I will not decrease her benzodiazepines down any further. 03/11-she had her benzodiazepines increased to 3 times a day from 2 times a day. She has been tolerating feeding. No gross signs of aspiration at this time. Continue tube feedings as previously ordered. Charges/Coding Visit Charges Inpatient E&M: 03159 Subs Hosp L3
[2023-03-11 21:25] VITALS: BP 167/92; PULSE 104; RESP 18; TEMP 37; O2SAT 94
[2023-03-11] MEDS: 0.9% Saline Lock 10 ML Syringe IV (22:47)
[2023-03-12] VITALS (7 sets, daily range): BP systolic 140–172; BP diastolic 78–91; PULSE 98–105; RESP 16–18; TEMP 36.6–37.2; O2SAT 93–98; BMI 19.8
[2023-03-12] MEDS: hydrALAZINE 20 MG/ML Vial 5 MG IV (03:32)
[2023-03-12] MEDS: 0.9% Saline Lock 10 ML Syringe IV ×3 (03:33→10:59)
[2023-03-12] MEDS: Vital High Protein 1,000 ML 50 ML GT (05:03)
[2023-03-12] MEDS: Ondansetron 4 MG/2 ML Vial IV ×4 (05:04→23:46)
[2023-03-12] MEDS: guaiFENesin 10 ML UDC (200MG/10ML) GT ×4 (05:04→23:47)
[2023-03-12 06:34] LABS: Absolute Lymphocyte Count 0.96 X10^3/uL (0.83-4.51); Absolute Neutrophil Count 6.4 X10^3/uL (2.0-7.7); Basophil# 0.02 X10^3/uL; Basophil% 0.2 % (0-1); Eosinophil# 0.06 X10^3/uL; Eosinophils% 0.7 % (0-5); Hematocrit 27.1 % (37-47); Hemoglobin 7.8 g/dL (12.0-15.0); Lymphocyte # 0.96 X10^3/ul (0.83-4.51); Lymphocyte % 11.1 % (19-41); Mean Corp Hgb Conc 28.8 g/dL (32-36); Mean Corpuscular Hgb 27.8 pg (27.0-32.0); Mean Corpuscular Volume 96.4 fL (81-99); Mean Platelet Vol. 9.9 fl (6.2-12.0); Monocyte# 0.81 X10^3/uL; Monocyte% 9.4 % (0-10); NRBC Flagged by Analyzer 0.2 % (0-5); Neutrophil # 6.37 X10^3/uL (2.7-7.7); Platelet Count 179 K/mm3 (150-450); RBC Distribution Width CV 14.4 % (11.6-14.6); RBC Distribution Width SD 51.3 fl (35.1-43.9); Red Blood Count 2.81 M/mm3 (4.2-5.4); White Blood Count 8.6 K/mm3 (4.4-11.0)
[2023-03-12 07:26] LABS: Anion Gap 6 (5-15); BUN 44 mg/dL (7-18); BUN/Creat Ratio 25.9 RATIO (10-20); Calcium,Total 10.9 mg/dL (8.5-10.1); Chloride 123 mmol/L (98-107); EST Glomerular Filtration Rate 31 mL/min (>60); Est Glom Filt Rate - Afr Amer 38 mL/min (>60); Estimated Creatinine Clearance 25.08 ml/min; Glucose 127 mg/dL (74-106); Potassium 3.3 mmol/L (3.5-5.1); Sodium Level 161 mmol/L (136-145)
[2023-03-12 09:23] LABS: Pathologist Review Reviewed
[2023-03-12] MEDS: Tolterodine Tartrate 4 MG CAP.SA PO (10:52)
[2023-03-12] MEDS: Losartan Potassium 25 MG Tablet GT (10:52)
[2023-03-12] MEDS: Memantine Hydrochloride 10 MG Tablet PO (10:52)
[2023-03-12] MEDS: miSOPROStol 200 MCG Tablet GT ×4 (10:53→21:07)
[2023-03-12] MEDS: Heparin Injection (Vial) 5,000 UNIT/ML VIAL 5000 UNIT SC ×2 (10:53→21:08)
[2023-03-12] MEDS: LORazepam 1 MG Tablet 2 MG GT ×2 (10:59→18:06)
[2023-03-12] MEDS: Potassium Chloride Oral Soln 20 MEQ/15 ML UDC 40 MEQ GT (11:20)
--- NOTE | 2023-03-12 12:45 | PCM.PROGNOTE ---
Subjective Subjective Patient seen and examined. She had no active complaints. was by her bedside. His sodium was noted to have trended upwards and is at 161 today. Review of systems otherwise negative. Objective Data Objective Data Vital Signs: Vital Signs Temp Pulse Resp BP Pulse Ox O2 Del Method O2 Flow Rate 97.8 F 102 H 16 172/85 H 94 Nasal Cannula 2 03/12/23 03:30 03/12/23 03:32 03/12/23 03:30 03/12/23 03:32 03/12/23 09:33 03/12/23 09:33 03/12/23 09:33 FiO2 41 03/08/23 08:00 Oxygen Flow Rate (L/min) 2 Oxygen Delivery Method Nasal Cannula Weight: 118 lb 13.266 oz Body Mass Index (BMI) 19.8 Intake & Output: Intake and Output for Last 24 Hours 03/10/23 03/11/23 03/12/23 23:59 23:59 23:59 Intake Total 3180.84 / 3180.84 3096.33 / 3096.33 1338.50 / 1338.50 Output Total 4650 / 4650 2065 / 2065 Balance -1469.16 / -1469.16 3096.33 / 2281.33 -726.50 / -726.50 Medical Nutrition Assessment Dietitian: Malnutrition Criteria Met Start: 03/07/23 10:37 Freq: Status: Active Protocol: Document 03/10/23 11:15 (Rec: 03/10/23 13:15 [id number]) Nutrition Malnutrition Evidence of Malnutrition Exists Yes Malnutrition (severe): Chronic Evidenced By Suboptimal Energy Intake ( Severe),Weight Loss (Severe) Intake Problem Inadequate Oral Intake Etiology related to difficulty swallowing Signs/Symptoms as evidenced by NPO Status Active Problem Clinical Problem Chronic Disease or Condition Related Malnutrition Etiology chronic, severe malnutrition related to inadequate oral intake d/t swallowing difficulty Signs/Symptoms as evidenced by unintentional 15.6% wt loss x 5 months; estimated PO intake meeting < 75% of estimated energy needs > 5 months Status Active Problem Recommendation Dietitian Recommendations/Changes 1.) Continue via PEG Vital HP at goal rate of 50mL/hour w/ 100mL H2O flush every 4 hours to provide 1200 calories, 105 g protein, and 1603mL fluid/ day. Advance from 20mL/hour by 10mL every 8-12 hours as tolerated until goal rate achieved. 2.) Pt is to remain NPO for now; FOOT DRILL OPERATOR working with pt for possible pleasure feeds as tolerated. Regular diet if/ when indicated. 3.) As TF tolerance established, will transition to bolus feedings for homegoing. Lab / Micro Data Result Diagrams: 03/12/23 06:10 03/12/23 06:10 Labs: Laboratory Results - last 24 hr 03/09/23 12:03: Urine Immunofixation Comment 03/11/23 05:07: Diff Path Review Reviewed 03/12/23 06:10: WBC 8.6, RBC 2.81 L, Hgb 7.8 L, Hct 27.1 L, MCV 96.4, MCH 27.8, MCHC 28.8 L, RDW Std Deviation 51.3 H, RDW Coeff of Lee 14.4, Plt Count 179, MPV 9.9, Immature Gran % (Auto) 4.600 H, Neut % (Auto) 74.0 H, Lymph % (Auto) 11.1 L, Gove % (Auto) 9.4, Eos % (Auto) 0.7, Baso % (Auto) 0.2, Absolute Neuts (auto) 6.4, Absolute Lymphs (auto) 0.96, Nucleated RBC % 0.2 03/12/23 06:10: Sodium 161 H*, Potassium 3.3 L, Chloride 123 H, Carbon Dioxide 32.0, Anion Gap 6, BUN 44 H, Creatinine 1.70 H, Estim Creat Clear Calc 25.08, Est GFR (MDRD) Af Amer 38 L, Est GFR (MDRD) Non-Af 31 L, BUN/Creatinine Ratio 25.9 H, Glucose 127 H, Calcium 10.9 H Micro: Microbiology 03/07/23 03:15 Blood Culture (Wb) - Anticubital Right Blood Culture - Final No growth in 5 days. 03/07/23 02:30 Blood Culture (Wb) - Anticubital Right Blood Culture - Final No growth in 5 days. 03/07/23 02:23 Nasal Secretion SARS-CoV-2 & FLU Antigen (Rapid) - Final Radiography Diagnostic Testing: Radiology Impression Brain MRI 03/11/23 05:55 IMPRESSION: 1. No MRI evidence of acute or subacute ischemic infarct or remote infarcts. 2. Chronic periventricular white matter ischemic changes in both cerebral hemispheres. Electronically Signed: Amos Ackerman MD at 14:17 EDT , Physical Exam Const alert, oriented x3 and no apparent distress Constitutional Narrative: Frail General Appearance: cooperative and well developed HEENT normocephalic, head/scalp atraumatic and oropharynx normal HEENT Narrative: dry oral mucosa Eyes PERRL and EOMs intact bilaterally Neck no lymphadenopathy, supple and no JVD Lymph Lymphatic: no lymphadenopathy noted Resp normal respiratory effort, normal air movement and clear to auscultation bilaterally Cardio regular rate, regular rhythm, S1 normal heart sound, S2 normal heart sound and no murmurs GI normal to inspection, nondistended, normoactive bowel sounds, soft to palpation, non-tender and non-distended GI Narrative: PEG tube in situ Extremity normal capillary refill, no clubbing, cyanosis or edema and no calf tenderness Skin General Skin Exam: no breakdown Neuro CN's II-XII intact bilaterally and no focal motor deficits Psych thought process normal and cooperative Appearance: appropriate Assessment & Plan Assessment/Plan (1) Bilateral pneumonia: (2) Acute respiratory failure with hypoxia: PLAN: Plan #Aspiration pneumonia on IV unasyn. now on 2L of oxygen by nasal canula breathing treatment with bronchodilators Titrate oxygen to maintain saturation above 90%. #Acute hypoxic respiratory failure due to aspiration pneumonia: As above. #Hypernatremia Sodium further trended upwards to 161 today, despite a D5 water been increasing his sodium flushes been increased. Nephrology consulted. Patient may benefit from DDAVP. D5W increaesd to 150cc/hr #Hypokalemia: Potassium is 3.3 today. Will replace and trend #Dysphagia: Thought to be due to her esophageal stricture. She had EGD with dilatation of the esophageal stricture. Speech therapy on board. She is currently NPO. Has an NG tube in place. On tube feeds #CHronic esophageal stricture: seen by GI, and had dilatation done during this admission. MRI of the brain is ordered per neurology did not show any evidence of stroke or any acute intracranial pathology. for MRI of the brain today as ordered by her neurologist to evaluate for neurological cause of the stricture. #Chronic severe protein calorie malnutrition: Nutrition on board. PEG tube in place for feeds. #Bipolar disorder: On ativan 2 mg 3 times daily #Dementia: On memantine #Hypothyroidism: On methimazole DVT prophylaxis: Lovenox Total time spent on evaluation and management of patient, reviewing chart and specialist notes, discussing plan with patient and his , discussion with nursing and ancillary staff as well as documentation: 47 mins Charges/Coding Visit Charges Inpatient E&M: 79580 [facility] Hosp L3
--- NOTE | 2023-03-12 19:24 | PN_ITS ---
Subjective Subjective Patient does not have any complaints at this time. Objective Data Objective Data Vital Signs: Vital Signs Temp Pulse Resp BP Pulse Ox O2 Del Method O2 Flow Rate 98.1 F 101 H 16 140/78 H 94 Nasal Cannula 2 03/12/23 15:30 03/12/23 15:30 03/12/23 15:30 03/12/23 15:30 03/12/23 15:30 03/12/23 15:31 03/12/23 15:31 FiO2 41 03/08/23 08:00 Oxygen Flow Rate (L/min) 2 Oxygen Delivery Method Nasal Cannula Weight: 118 lb 13.266 oz Body Mass Index (BMI) 19.8 Intake & Output: Intake and Output for Last 24 Hours 03/10/23 03/11/23 03/12/23 23:59 23:59 23:59 Intake Total 3180.84 / 3180.84 3096.33 / 3096.33 2960.50 / 2960.50 Output Total 4650 / 4650 3365 / 3365 Balance -1469.16 / -1469.16 3096.33 / 2281.33 -404.50 / -404.50 Medical Nutrition Assessment Dietitian: Malnutrition Criteria Met Start: 03/07/23 10:37 Freq: Status: Active Protocol: Document 03/10/23 11:15 AG (Rec: 03/10/23 13:15 AG [id number]) Nutrition Malnutrition Evidence of Malnutrition Exists Yes Malnutrition (severe): Chronic Evidenced By Suboptimal Energy Intake ( Severe),Weight Loss (Severe) Intake Problem Inadequate Oral Intake Etiology related to difficulty swallowing Signs/Symptoms as evidenced by NPO Status Active Problem Clinical Problem Chronic Disease or Condition Related Malnutrition Etiology chronic, severe malnutrition related to inadequate oral intake d/t swallowing difficulty Signs/Symptoms as evidenced by unintentional 15.6% wt loss x 5 months; estimated PO intake meeting < 75% of estimated energy needs > 5 months Status Active Problem Recommendation Dietitian Recommendations/Changes 1.) Continue via PEG Vital HP at goal rate of 50mL/hour w/ 100mL H2O flush every 4 hours to provide 1200 calories, 105 g protein, and 1603mL fluid/ day. Advance from 20mL/hour by 10mL every 8-12 hours as tolerated until goal rate achieved. 2.) Pt is to remain NPO for now; BARREL ENDSHAKER ADJUSTER working with pt for possible pleasure feeds as tolerated. Regular diet if/ when indicated. 3.) As TF tolerance established, will transition to bolus feedings for homegoing. Lab / Micro Data Result Diagrams: 03/12/23 06:10 03/12/23 06:10 Labs: Laboratory Results - last 24 hr 03/11/23 05:07: Diff Path Review Reviewed 03/12/23 06:10: WBC 8.6, RBC 2.81 L, Hgb 7.8 L, Hct 27.1 L, MCV 96.4, MCH 27.8, MCHC 28.8 L, RDW Std Deviation 51.3 H, RDW Coeff of Lee 14.4, Plt Count 179, MPV 9.9, Immature Gran % (Auto) 4.600 H, Neut % (Auto) 74.0 H, Lymph % (Auto) 11.1 L , Glenn % (Auto) 9.4, Eos % (Auto) 0.7, Baso % (Auto) 0.2, Absolute Neuts (auto) 6.4, Absolute Lymphs (auto) 0.96, Nucleated RBC % 0.2 03/12/23 06:10: Sodium 161 H*, Potassium 3.3 L, Chloride 123 H, Carbon Dioxide 32.0, Anion Gap 6, BUN 44 H, Creatinine 1.70 H, Estim Creat Clear Calc 25.08, Est GFR (MDRD) Af Amer 38 L, Est GFR (MDRD) Non-Af 31 L, BUN/Creatinine Ratio 25.9 H, Glucose 127 H, Calcium 10.9 H Micro: Microbiology 03/07/23 03:15 Blood Culture (Wb) - Anticubital Right Blood Culture - Final No growth in 5 days. 03/07/23 02:30 Blood Culture (Wb) - Anticubital Right Blood Culture - Final No growth in 5 days. 03/07/23 02:23 Nasal Secretion SARS-CoV-2 & FLU Antigen (Rapid) - Final Physical Exam Const alert, oriented x3 and no apparent distress Constitutional Narrative: Frail General Appearance: cooperative and well developed HEENT normocephalic, head/scalp atraumatic and oropharynx normal HEENT Narrative: dry oral mucosa Eyes PERRL and EOMs intact bilaterally Neck no lymphadenopathy, supple and no JVD Lymph Lymphatic: no lymphadenopathy noted Resp normal respiratory effort, normal air movement and clear to auscultation bilaterally Cardio regular rate, regular rhythm, S1 normal heart sound, S2 normal heart sound and no murmurs GI normal to inspection, nondistended, normoactive bowel sounds, soft to palpation, non-tender and non-distended GI Narrative: PEG tube in situ Extremity normal capillary refill, no clubbing, cyanosis or edema and no calf tenderness Skin General Skin Exam: no breakdown Neuro CN's II-XII intact bilaterally and no focal motor deficits Psych thought process normal and cooperative Appearance: appropriate Assessment & Plan Assessment/Plan (1) Bilateral pneumonia: PLAN: She has a history of recurrent aspiration pneumonias in the past. She has marked oropharyngeal and esophageal dysphagia from unknown reason. I suspect she has complications from parkinsonism that is contributing to possible upper motor neuron problems contributing to aspiration pneumonia. There is a possibility that she aspirated tube feedings. I agree with empiric antibiotic therapy and she is being seen by sub assembly team worker service. (2) Acute respiratory failure with hypoxia: PLAN: Agree with holding tube feedings for now. We can do a Gastrografin study to see if tube feedings are retroflexing back up into the esophagus past esophageal stricture. (3) Secondary parkinsonism: PLAN: Possibly secondary to bipolar medications specifically years of lithium usage (4) Esophageal stricture: PLAN: Status post dilation in the past. Protonix 40 mg twice daily. (5) Gastric paresis: PLAN: Recommend Reglan therapy 10 mg every 6 hours IV PLAN: Plan I had a long talk with her psychiatrist for about 45 minutes and he explained to me how severe her bipolar disorder is with catatonia. I asked him is not a possibility that we can wean her off of the benzodiazepines. He said she was on as much as 32 mg of Klonopin per day and that was weaned down to about 60 mg of Ativan. He said that was the only way to keep her from going into catatonia after undergoing extensive electroshock therapy for several years after becoming refractory to all typical psychotics and antipsychotics. I feel that most of her enteric nervous system particularly involving the esophagus and the stomach(esophageal dysphagia and gastroparesis) are likely secondary to medication side effect. When she saw the neurologist she was thought to have s econdary parkinsonian symptoms. This also can be secondary to excessive benzodiazepine usage over multiple years. He said the medical recommendation that he has for now is mostly palliative and not curative. I do not want her to go into catatonia therefore I will not decrease her benzodiazepines down any further. 03/11-she had her benzodiazepines increased to 3 times a day from 2 times a day. She has been tolerating feeding. No gross signs of aspiration at this time. Continue tube feedings as previously ordered. 03/12- MRI did not show any acute pathology that would be contributing to her symptoms. Cont prokenetics. She will need her water flushes increased to 150ml/Q6hr Charges/Coding Visit Charges Inpatient E&M: 69267 Subs Hosp L3
--- NOTE | 2023-03-12 21:28 | CON.PCM.RE_ITS ---
Assessment & Plan Assessment/Plan (1) Hypercalcemia: (2) Acquired nephrogenic diabetes insipidus: (3) Stage 3b chronic kidney disease (CKD): PLAN: Baseline creatinine is around 1.8 to 2.0. due to Li use. Cr is close to baseline Hypernatremia. sodium is upto 157. history of nephrogenic DI. did not respond to desmopressin in the past. continue D5W. Hypercalcemia. secondary to primary hyperparathyroidism. continue sensipar HPI Consult Data Date of Consult: 03/12/23 HPI Narrative Reason for Consultation: Hypernatremia, Hypercalcemia HPI Narrative: SIMONA HERNANDEZ, is a 72 F who presents to hospital with aspiration pneumonia. renal consulted for hypernatremia. she is well known to me. history of CKD 3B with baseline creatinine around 1.8 to 2.0. History of nephrogenic DI secondary to Li use. admitted with aspiration pneumonia, has been on abx. now received G tube. currently denies any complaints. massive urine output. [facility] Medical History Acute renal insufficiency CITLALY (acute kidney injury) Anemia Anxiety Back pain Bipolar disorder Bipolar disorder with moderate depression Bladder disease Delirium due to multiple etiologies Diabetes insipidus Dietary restriction Difficulty chewing Erosive esophagitis Falls Former smoker Gastric reflux Gastroparesis Generalized weakness Gram-negative bacteremia History of edema History of herpes zoster History of hiatal hernia Hypercalcemia Hypernatremia Hypertension Post-menopausal Pulmonary emboli Secondary hyperparathyroidism of renal origin Severe malnutrition Severe malnutrition Stenosis of esophagus Tardive dyskinesia Thyroid disease Unsteady gait UTI (urinary tract infection) Wears glasses Home Medications cinacalcet 30 mg tablet 30 mg PO SUMOWEFR THYROID 10/04/20 [History Last Taken 01/14/23] methimazole 5 mg tablet 5 mg PO SUMOWEFR Check with primary doctor 10/04/20 [History Last Taken 01/14/23] memantine 10 mg tablet 10 mg PO DAILY Check with primary doctor 01/03/21 [History Last Taken 01/14/23] denosumab 60 mg/mL subcutaneous syringe (Prolia) 60 mg subcut .Q6MO . 09/05/22 [History Last Taken 08/27/22] oxybutynin chloride 15 mg tablet,extended release 24 hr 15 mg PO DAILY . 09/05/22 [History Last Taken 01/14/23] polyethylene glycol 3350 17 gram/dose oral powder (Miralax) 17 g PO DAILY LAXATIVE 09/05/22 [History Last Taken 09/05/22] lamotrigine 100 mg tablet 200 mg PO DAILY . 12/15/22 [History Last Taken 01/14/23] ferrous sulfate 325 mg (65 mg iron) tablet 325 mg PO QODAY SUPPLEMENT #30 tabs 12/24/22 [Rx Last Taken 01/13/23] lorazepam 2 mg tablet 2 mg PO 4XD PRN AGITATION #1 TAB 12/24/22 [Rx Last Taken 01/13/23] pantoprazole 40 mg tablet,delayed release 40 mg PO BID stomach 01/14/23 [History Last Taken 01/13/23] sucralfate 100 mg/mL oral suspension 10 ml PO QACHS Check with primary doctor 01/30/23 [History Last Taken Unknown] losartan 25 mg tablet 25 mg PO DAILY #90 tabs 03/06/23 [Rx Last Taken Unknown] nutritional supplements 0.06 gram-1.2 kcal/mL oral liquid (Osmolite 1.2 Mp) 120 ml G-tube 5X/DAY #0 mL 03/06/23 [Rx Last Taken Unknown] ondansetron HCl 4 mg tablet 4 mg PO Q6H PRN nausea and vomiting #30 tabs 03/06/23 [Rx Last Taken Unknown] Allergy/AdvReac Type Severity Reaction Status Date / Time No Known Allergies Allergy Verified 03/04/23 09:26 Family History Father CVA (cerebral vascular accident) Sister CVA (cerebral vascular accident) Cancer Surgical History History of esophagogastroduodenoscopy (EGD) Hx of esophagogastroduodenoscopy Social History household members: spouse housing: house Smoking Status: Former smoker Tobacco: How many years used: 4 second hand exposure: Yes alcohol intake: never substance use type: does not use what type of physical activity do you participate in: other details: OT - [facility] [place] frequency: daily valentina/congregation: [employer] seatbelt use: always additional social history: Ambulates at baseline without assistive device ROS ROS Narrative negative except above Physical Exam Narrative Alert awake oriented x 3 no obvious distress no pallor no icterus no JVD s1s2 no murmurs lungs clear abdomen soft no organomegaly no edema no cyanosis Medical Records Data Medical Nutrition Assessment Dietitian: Malnutrition Criteria Met Start: 03/07/23 10:37 Freq: Status: Active Protocol: Document 03/10/23 11:15 AG (Rec: 03/10/23 13:15 AG [id number]) Nutrition Malnutrition Evidence of Malnutrition Exists Yes Malnutrition (severe): Chronic Evidenced By Suboptimal Energy Intake ( Severe),Weight Loss (Severe) Intake Problem Inadequate Oral Intake Etiology related to difficulty swallowing Signs/Symptoms as evidenced by NPO Status Active Problem Clinical Problem Chronic Disease or Condition Related Malnutrition Etiology chronic, severe malnutrition related to inadequate oral intake d/t swallowing difficulty Signs/Symptoms as evidenced by unintentional 15.6% wt loss x 5 months; estimated PO intake meeting < 75% of estimated energy needs > 5 months Status Active Problem Recommendation Dietitian Recommendations/Changes 1.) Continue via PEG Vital HP at goal rate of 50mL/hour w/ 100mL H2O flush every 4 hours to provide 1200 calories, 105 g protein, and 1603mL fluid/ day. Advance from 20mL/hour by 10mL every 8-12 hours as tolerated until goal rate achieved. 2.) Pt is to remain NPO for now; LOG POND WORKER working with pt for possible pleasure feeds as tolerated. Regular diet if/ when indicated. 3.) As TF tolerance established, will transition to bolus feedings for homegoing. Lab / Micro Data Result Diagrams: 03/12/23 06:10 03/12/23 06:10 Labs: Laboratory Results - last 24 hr 03/11/23 05:07: Diff Path Review Reviewed 03/12/23 06:10: WBC 8.6, RBC 2.81 L, Hgb 7.8 L, Hct 27.1 L, MCV 96.4, MCH 27.8, MCHC 28.8 L, RDW Std Deviation 51.3 H, RDW Coeff of Lee 14.4, Plt Count 179, MPV 9.9, Immature Gran % (Auto) 4.600 H, Neut % (Auto) 74.0 H, Lymph % (Auto) 11.1 L , [place] % (Auto) 9.4, Eos % (Auto) 0.7, Baso % (Auto) 0.2, Absolute Neuts (auto) 6.4, Absolute Lymphs (auto) 0.96, Nucleated RBC % 0.2 03/12/23 06:10: Sodium 161 H*, Potassium 3.3 L, Chloride 123 H, Carbon Dioxide 32.0, Anion Gap 6, BUN 44 H, Creatinine 1.70 H, Estim Creat Clear Calc 25.08, Est GFR (MDRD) Af Amer 38 L, Est GFR (MDRD) Non-Af 31 L, BUN/Creatinine Ratio 25.9 H, Glucose 127 H, Calcium 10.9 H Micro: Microbiology 03/07/23 03:15 Blood Culture (Wb) - Anticubital Right Blood Culture - Final No growth in 5 days. 03/07/23 02:30 Blood Culture (Wb) - Anticubital Right Blood Culture - Final No growth in 5 days.
[2023-03-13] VITALS (8 sets, daily range): BP systolic 123–152; BP diastolic 86–96; PULSE 62–96; RESP 16–18; TEMP 36.9–37.3; O2SAT 88–98; BMI 20.1
[2023-03-13] MEDS: Vital High Protein 1,000 ML 50 ML GT ×2 (00:01→16:51)
[2023-03-13] MEDS: guaiFENesin 10 ML UDC (200MG/10ML) GT ×4 (05:08→23:09)
[2023-03-13] MEDS: Ondansetron 4 MG/2 ML Vial IV ×4 (05:08→23:13)
[2023-03-13] MEDS: LORazepam 1 MG Tablet 2 MG GT ×3 (06:58→23:09)
[2023-03-13 07:02] LABS: Absolute Lymphocyte Count 1.43 X10^3/uL (0.83-4.51); Absolute Neutrophil Count 6.6 X10^3/uL (2.0-7.7); Basophil# 0.01 X10^3/uL; Basophil% 0.1 % (0-1); Eosinophil# 0.14 X10^3/uL; Eosinophils% 1.6 % (0-5); Hematocrit 27.1 % (37-47); Hemoglobin 7.9 g/dL (12.0-15.0); Lymphocyte # 1.43 X10^3/ul (0.83-4.51); Lymphocyte % 16.1 % (19-41); Mean Corp Hgb Conc 29.2 g/dL (32-36); Mean Corpuscular Hgb 28.3 pg (27.0-32.0); Mean Corpuscular Volume 97.1 fL (81-99); Mean Platelet Vol. 9.7 fl (6.2-12.0); Monocyte# 0.52 X10^3/uL; Monocyte% 5.8 % (0-10); NRBC Flagged by Analyzer 0 % (0-5); Neutrophil # 6.62 X10^3/uL (2.7-7.7); Neutrophil % 74.5 % (47-70); Platelet Count 176 K/mm3 (150-450); RBC Distribution Width CV 14.3 % (11.6-14.6); RBC Distribution Width SD 51.2 fl (35.1-43.9); Red Blood Count 2.79 M/mm3 (4.2-5.4); White Blood Count 8.9 K/mm3 (4.4-11.0)
[2023-03-13 07:24] LABS: Anion Gap 6 (5-15); BUN 49 mg/dL (7-18); BUN/Creat Ratio 30.6 RATIO (10-20); Calcium,Total 10.6 mg/dL (8.5-10.1); Chloride 117 mmol/L (98-107); EST Glomerular Filtration Rate 34 mL/min (>60); Est Glom Filt Rate - Afr Amer 41 mL/min (>60); Estimated Creatinine Clearance 27.14 ml/min; Glucose 168 mg/dL (74-106); Potassium 3.6 mmol/L (3.5-5.1); Sodium Level 155 mmol/L (136-145)
[2023-03-13] MEDS: Heparin Injection (Vial) 5,000 UNIT/ML VIAL 5000 UNIT SC ×2 (09:28→21:43)
[2023-03-13] MEDS: Memantine Hydrochloride 10 MG Tablet GT (09:29)
[2023-03-13] MEDS: methIMAzole 10 MG TABLET 5 MG PO (09:29)
[2023-03-13] MEDS: miSOPROStol 200 MCG Tablet GT ×4 (09:30→21:43)
[2023-03-13] MEDS: Losartan Potassium 25 MG Tablet GT (09:30)
[2023-03-13] MEDS: lamoTRIgine 100 MG Tablet 200 MG GT (09:30)
[2023-03-13] MEDS: Cinacalcet HCl 30 MG Tablet PO (09:39)
[2023-03-13] MEDS: Tolterodine Tartrate 4 MG CAP.SA PO (09:39)
--- NOTE | 2023-03-13 10:35 | PCM.PROGNOTE ---
Subjective Subjective Patient seen and examined. She had no complaints and had an uneventful night. Review of systems is otherwise negative. She has remained hemodynamically stable. Sodium is down to 155. Nephrology is on board. Objective Data Objective Data Vital Signs: Vital Signs Temp Pulse Resp BP Pulse Ox O2 Del Method O2 Flow Rate 99.0 F 90 18 146/86 H 88 Room Air 2 03/13/23 09:00 03/13/23 09:00 03/13/23 09:00 03/13/23 09:00 03/13/23 09:25 03/13/23 09:25 03/13/23 09:00 FiO2 41 03/08/23 08:00 Oxygen Flow Rate (L/min) 2 Oxygen Delivery Method Room Air Weight: 121 lb 0.54 oz Body Mass Index (BMI) 20.1 Intake & Output: Intake and Output for Last 24 Hours 03/11/23 03/12/23 03/13/23 23:59 23:59 23:59 Intake Total 3096.33 / 3096.33 4380.00 / 4380.00 2723.33 / 2723.33 Output Total 3865 / 3865 Balance 3096.33 / 2281.33 515.00 / 515.00 2723.33 / 2723.33 Medical Nutrition Assessment Dietitian: Malnutrition Criteria Met Start: 03/07/23 10:37 Freq: Status: Active Protocol: Document 03/10/23 11:15 AG (Rec: 03/10/23 13:15 [id number]) Nutrition Malnutrition Evidence of Malnutrition Exists Yes Malnutrition (severe): Chronic Evidenced By Suboptimal Energy Intake ( Severe),Weight Loss (Severe) Intake Problem Inadequate Oral Intake Etiology related to difficulty swallowing Signs/Symptoms as evidenced by NPO Status Active Problem Clinical Problem Chronic Disease or Condition Related Malnutrition Etiology chronic, severe malnutrition related to inadequate oral intake d/t swallowing difficulty Signs/Symptoms as evidenced by unintentional 15.6% wt loss x 5 months; estimated PO intake meeting < 75% of estimated energy needs > 5 months Status Active Problem Recommendation Dietitian Recommendations/Changes 1.) Continue via PEG Vital HP at goal rate of 50mL/hour w/ 100mL H2O flush every 4 hours to provide 1200 calories, 105 g protein, and 1603mL fluid/ day. Advance from 20mL/hour by 10mL every 8-12 hours as tolerated until goal rate achieved. 2.) Pt is to remain NPO for now; STATE APPELLATE CLERK working with pt for possible pleasure feeds as tolerated. Regular diet if/ when indicated. 3.) As TF tolerance established, will transition to bolus feedings for homegoing. Lab / Micro Data Result Diagrams: 03/13/23 06:45 03/13/23 06:45 Labs: Laboratory Results - last 24 hr 03/13/23 06:45: WBC 8.9, RBC 2.79 L, Hgb 7.9 L, Hct 27.1 L, MCV 97.1, MCH 28.3, MCHC 29.2 L, RDW Std Deviation 51.2 H, RDW Coeff of Lee 14.3, Plt Count 176, MPV 9.7, Immature Gran % (Auto) 1.900 H, Neut % (Auto) 74.5 H, Lymph % (Auto) 16.1 L, [place] % (Auto) 5.8, Eos % (Auto) 1.6, Baso % (Auto) 0.1, Absolute Neuts (auto) 6.6, Absolute Lymphs (auto) 1.43, Nucleated RBC % 0 03/13/23 06:45: Sodium 155 H, Potassium 3.6, Chloride 117 H, Carbon Dioxide 32.0, Anion Gap 6, BUN 49 H, Creatinine 1.60 H, Estim Creat Clear Calc 27.14, Est GFR (MDRD) Af Amer 41 L, Est GFR (MDRD) Non-Af 34 L, BUN/Creatinine Ratio 30.6 H, Glucose 168 H, Calcium 10.6 H Micro: Microbiology 03/07/23 03:15 Blood Culture (Wb) - Anticubital Right Blood Culture - Final No growth in 5 days. 03/07/23 02:30 Blood Culture (Wb) - Anticubital Right Blood Culture - Final No growth in 5 days. 03/07/23 02:23 Nasal Secretion SARS-CoV-2 & FLU Antigen (Rapid) - Final Physical Exam Const alert, oriented x3 and no apparent distress Constitutional Narrative: Frail General Appearance: cooperative and well developed HEENT normocephalic, head/scalp atraumatic and oropharynx normal Mouth: dry mucous membranes Eyes PERRL and EOMs intact bilaterally Neck no lymphadenopathy, supple and no JVD Lymph Lymphatic: no lymphadenopathy noted Resp normal respiratory effort, normal air movement and clear to auscultation bilaterally Cardio regular rate, regular rhythm, S1 normal heart sound, S2 normal heart sound and no murmurs GI normal to inspection, nondistended, normoactive bowel sounds, soft to palpation, non-tender and non-distended GI Narrative: PEG tube in situ Extremity normal capillary refill, no clubbing, cyanosis or edema and no calf tenderness Skin General Skin Exam: no breakdown Neuro CN's II-XII intact bilaterally and no focal motor deficits Psych thought process normal and cooperative Appearance: appropriate Assessment & Plan Assessment/Plan (1) Bilateral pneumonia: (2) Acute respiratory failure with hypoxia: PLAN: Plan #Aspiration pneumonia on IV unasyn. now on 2L of oxygen by nasal canula breathing treatment with bronchodilators Titrate oxygen to maintain saturation above 90%. to complete a 7 day course of IV unasyn tomorrow #Acute hypoxic respiratory failure due to aspiration pneumonia: As above. #Hypernatremia sodium is down to 155 today, from 161 today. 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 Nephrology on board. Per nephro, she didnt respond to desmopressin in the past. per nephro, to continue D5W. #Hypokalemia: resolved. potassium is 3.6 today. #Dysphagia: Thought to be due to her esophageal stricture. She had EGD with dilatation of the esophageal stricture. Speech therapy on board. She is currently NPO. Has an NG tube in place. On tube feeds #CHronic esophageal stricture: seen by GI, and had dilatation done during this admission. MRI of the brain is ordered per neurology did not show any evidence of stroke or any acute intracranial pathology. for MRI of the brain as ordered by her neurologist to evaluate for neurological cause of the stricture. #Chronic severe protein calorie malnutrition: Nutrition on board. PEG tube in place for feeds. #Bipolar disorder: On ativan 2 mg 3 times daily #Dementia: On memantine #Hypothyroidism: On methimazole DVT prophylaxis: Lovenox Total time spent on evaluation and management of patient, reviewing chart and specialist notes, discussing plan with patient and his , discussion with nursing and ancillary staff as well as documentation: 45 mins Charges/Coding Visit Charges Inpatient E&M: 44241 Subs Hosp L2
--- NOTE | 2023-03-13 12:56 | PCM.PN.REN ---
Subjective Subjective no new events Objective Data Objective Data Vital Signs: Vital Signs Temp Pulse Resp BP Pulse Ox O2 Del Method O2 Flow Rate 99.0 F 90 18 146/86 H 88 Nasal Cannula 2 03/13/23 09:00 03/13/23 09:00 03/13/23 09:00 03/13/23 09:00 03/13/23 09:25 03/13/23 09:30 03/13/23 09:30 FiO2 41 03/08/23 08:00 Oxygen Flow Rate (L/min) 2 Oxygen Delivery Method Nasal Cannula Weight: 54.9 kg Body Mass Index (BMI) 20.1 Intake & Output: Intake and Output for Last 24 Hours 03/11/23 03/12/23 03/13/23 23:59 23:59 23:59 Intake Total 3096.33 / 3096.33 4380.00 / 4380.00 3837.33 / 3837.33 Output Total 3865 / 3865 1850 / 1850 Balance 3096.33 / 2281.33 515.00 / 515.00 1987.33 / 1986.33 Medical Nutrition Assessment Dietitian: Malnutrition Criteria Met Start: 03/07/23 10:37 Freq: Status: Active Protocol: Document 03/10/23 11:15 AG (Rec: 03/10/23 13:15 AG [id number]) Nutrition Malnutrition Evidence of Malnutrition Exists Yes Malnutrition (severe): Chronic Evidenced By Suboptimal Energy Intake ( Severe),Weight Loss (Severe) Intake Problem Inadequate Oral Intake Etiology related to difficulty swallowing Signs/Symptoms as evidenced by NPO Status Active Problem Clinical Problem Chronic Disease or Condition Related Malnutrition Etiology chronic, severe malnutrition related to inadequate oral intake d/t swallowing difficulty Signs/Symptoms as evidenced by unintentional 15.6% wt loss x 5 months; estimated PO intake meeting < 75% of estimated energy needs > 5 months Status Active Problem Recommendation Dietitian Recommendations/Changes 1.) Continue via PEG Vital HP at goal rate of 50mL/hour w/ 100mL H2O flush every 4 hours to provide 1200 calories, 105 g protein, and 1603mL fluid/ day. Advance from 20mL/hour by 10mL every 8-12 hours as tolerated until goal rate achieved. 2.) Pt is to remain NPO for now; CHILDREN'S CHOIR DIRECTOR working with pt for possible pleasure feeds as tolerated. Regular diet if/ when indicated. 3.) As TF tolerance established, will transition to bolus feedings for homegoing. Lab / Micro Data Result Diagrams: 03/13/23 06:45 03/13/23 06:45 Labs: Laboratory Results - last 24 hr 03/13/23 06:45: WBC 8.9, RBC 2.79 L, Hgb 7.9 L, Hct 27.1 L, MCV 97.1, MCH 28.3, MCHC 29.2 L, RDW Std Deviation 51.2 H, RDW Coeff of Lee 14.3, Plt Count 176, MPV 9.7, Immature Gran % (Auto) 1.900 H, Neut % (Auto) 74.5 H, Lymph % (Auto) 16.1 L, [place] % (Auto) 5.8, Eos % (Auto) 1.6, Baso % (Auto) 0.1, Absolute Neuts (auto) 6.6, Absolute Lymphs (auto) 1.43, Nucleated RBC % 0 03/13/23 06:45: Sodium 155 H, Potassium 3.6, Chloride 117 H, Carbon Dioxide 32.0, Anion Gap 6, BUN 49 H, Creatinine 1.60 H, Estim Creat Clear Calc 27.14, Est GFR (MDRD) Af Amer 41 L, Est GFR (MDRD) Non-Af 34 L, BUN/Creatinine Ratio 30.6 H, Glucose 168 H, Calcium 10.6 H Micro: Microbiology 03/07/23 03:15 Blood Culture (Wb) - Anticubital Right Blood Culture - Final No growth in 5 days. 03/07/23 02:30 Blood Culture (Wb) - Anticubital Right Blood Culture - Final No growth in 5 days. 03/07/23 02:23 Nasal Secretion SARS-CoV-2 & FLU Antigen (Rapid) - Final Physical Exam Narrative Alert awake oriented x 3 no obvious distress no pallor no icterus no JVD s1s2 no murmurs lungs clear abdomen soft no organomegaly no edema no cyanosis Assessment & Plan Assessment/Plan (1) Hypercalcemia: (2) Acquired nephrogenic diabetes insipidus: (3) Stage 3b chronic kidney disease (CKD): PLAN: Baseline creatinine is around 1.8 to 2.0. due to Li use. Cr is close to baseline Hypernatremia. sodium is better. continue D5W Hypercalcemia. secondary to primary hyperparathyroidism. continue sensipar
--- NOTE | 2023-03-13 16:47 | PN_ITS ---
Subjective Subjective Patient is more alert and awake today. She has been eating a small amount per mouth. Objective Data Objective Data Vital Signs: Vital Signs Temp Pulse Resp BP Pulse Ox O2 Del Method O2 Flow Rate 99.2 F H 96 16 145/92 H 98 Nasal Cannula 2 03/13/23 15:00 03/13/23 15:00 03/13/23 15:00 03/13/23 15:00 03/13/23 15:00 03/13/23 15:00 03/13/23 15:00 FiO2 41 03/08/23 08:00 Oxygen Flow Rate (L/min) 2 Oxygen Delivery Method Nasal Cannula Weight: 121 lb 0.54 oz Body Mass Index (BMI) 20.1 Intake & Output: Intake and Output for Last 24 Hours 03/11/23 03/12/23 03/13/23 23:59 23:59 23:59 Intake Total 3096.33 / 3096.33 4380.00 / 4380.00 3837.33 / 3837.33 Output Total 3865 / 3865 1850 / 1850 Balance 3096.33 / 2281.33 515.00 / 515.00 1987.33 / 1986.33 Medical Nutrition Assessment Dietitian: Malnutrition Criteria Met Start: 03/07/23 10:37 Freq: Status: Active Protocol: Document 03/10/23 11:15 AG (Rec: 03/10/23 13:15 [id number]) Nutrition Malnutrition Evidence of Malnutrition Exists Yes Malnutrition (severe): Chronic Evidenced By Suboptimal Energy Intake ( Severe),Weight Loss (Severe) Intake Problem Inadequate Oral Intake Etiology related to difficulty swallowing Signs/Symptoms as evidenced by NPO Status Active Problem Clinical Problem Chronic Disease or Condition Related Malnutrition Etiology chronic, severe malnutrition related to inadequate oral intake d/t swallowing difficulty Signs/Symptoms as evidenced by unintentional 15.6% wt loss x 5 months; estimated PO intake meeting < 75% of estimated energy needs > 5 months Status Active Problem Recommendation Dietitian Recommendations/Changes 1.) Continue via PEG Vital HP at goal rate of 50mL/hour w/ 100mL H2O flush every 4 hours to provide 1200 calories, 105 g protein, and 1603mL fluid/ day. Advance from 20mL/hour by 10mL every 8-12 hours as tolerated until goal rate achieved. 2.) Pt is to remain NPO for now; ACCOUNT LEADER working with pt for possible pleasure feeds as tolerated. Regular diet if/ when indicated. 3.) As TF tolerance established, will transition to bolus feedings for homegoing. Lab / Micro Data Result Diagrams: 03/13/23 06:45 03/13/23 06:45 Labs: Laboratory Results - last 24 hr 03/13/23 06:45: WBC 8.9, RBC 2.79 L, Hgb 7.9 L, Hct 27.1 L, MCV 97.1, MCH 28.3, MCHC 29.2 L, RDW Std Deviation 51.2 H, RDW Coeff of Lee 14.3, Plt Count 176, MPV 9.7, Immature Gran % (Auto) 1.900 H, Neut % (Auto) 74.5 H, Lymph % (Auto) 16.1 L , [place] % (Auto) 5.8, Eos % (Auto) 1.6, Baso % (Auto) 0.1, Absolute Neuts (auto) 6.6, Absolute Lymphs (auto) 1.43, Nucleated RBC % 0 03/13/23 06:45: Sodium 155 H, Potassium 3.6, Chloride 117 H, Carbon Dioxide 32.0, Anion Gap 6, BUN 49 H, Creatinine 1.60 H, Estim Creat Clear Calc 27.14, Est GFR (MDRD) Af Amer 41 L, Est GFR (MDRD) Non-Af 34 L, BUN/Creatinine Ratio 30.6 H, Glucose 168 H, Calcium 10.6 H Micro: Microbiology 03/07/23 03:15 Blood Culture (Wb) - Anticubital Right Blood Culture - Final No growth in 5 days. 03/07/23 02:30 Blood Culture (Wb) - Anticubital Right Blood Culture - Final No growth in 5 days. 03/07/23 02:23 Nasal Secretion SARS-CoV-2 & FLU Antigen (Rapid) - Final Physical Exam Narrative Alert awake oriented x 3 no obvious distress no pallor no icterus no JVD s1s2 no murmurs lungs clear abdomen soft no organomegaly no edema no cyanosis Assessment & Plan Assessment/Plan (1) Bilateral pneumonia: PLAN: She has a history of recurrent aspiration pneumonias in the past. She has marked oropharyngeal and esophageal dysphagia from unknown reason. I suspect she has complications from parkinsonism that is contributing to possible upper motor neuron problems contributing to aspiration pneumonia. There is a possibility that she aspirated tube feedings. I agree with empiric antibiotic therapy and she is being seen by bus company manager service. (2) Acute respiratory failure with hypoxia: PLAN: Tube feedings have been restarted (3) Secondary parkinsonism: PLAN: Possibly secondary to bipolar medications specifically years of lithium usage (4) Esophageal stricture: PLAN: Status post dilation in the past. Protonix 40 mg twice daily. (5) Gastric paresis: PLAN: Recommend Reglan therapy 10 mg every 6 hours IV PLAN: Plan I had a long talk with her psychiatrist for about 45 minutes and he explained to me how severe her bipolar disorder is with catatonia. I asked him is not a possibility that we can wean her off of the benzodiazepines. He said she was on as much as 32 mg of Klonopin per day and that was weaned down to about 60 mg of Ativan. He said that was the only way to keep her from going into catatonia after undergoing extensive electroshock therapy for several years after becoming refractory to all typical psychotics and antipsychotics. I feel that most of her enteric nervous system particularly involving the esophagus and the stomach(esophageal dysphagia and gastroparesis) are likely secondary to medication side effect. When she saw the neurologist she was thought to have secondary parkinsonian symptoms. This also can be secondary to excessive brenna zodiazepine usage over multiple years. He said the medical recommendation that he has for now is mostly palliative and not curative. I do not want her to go into catatonia therefore I will not decrease her benzodiazepines down any further. 03/11-she had her benzodiazepines increased to 3 times a day from 2 times a day. She has been tolerating feeding. No gross signs of aspiration at this time. Continue tube feedings as previously ordered. 03/12- MRI did not show any acute pathology that would be contributing to her symptoms. Cont prokenetics. She will need her water flushes increased to 150 ml/Q6hr 03/13-as her sodium improved so does her mental status. Due to her history of secondary parkinsonism and excessive benzodiazepines I will check an ammonia level to make sure that her severe malnutrition has not led to hyperammonianemia. Charges/Coding Visit Charges Inpatient E&M: 23619 Subs Hosp L3
[2023-03-13] MEDS: 0.9% Saline Lock 10 ML Syringe IV (23:21)
[2023-03-14 03:30] VITALS: BP 127/64; PULSE 78; RESP 18; TEMP 37.1; O2SAT 93
[2023-03-14 05:06] VITALS: BMI 20.2
[2023-03-14] MEDS: guaiFENesin 10 ML UDC (200MG/10ML) GT ×4 (05:24→22:57)
[2023-03-14] MEDS: Ondansetron 4 MG/2 ML Vial IV ×4 (05:25→23:12)
[2023-03-14 07:46] LABS: Absolute Lymphocyte Count 1.31 X10^3/uL (0.83-4.51); Absolute Neutrophil Count 5.4 X10^3/uL (2.0-7.7); Basophil# 0.01 X10^3/uL; Basophil% 0.1 % (0-1); Eosinophil# 0.29 X10^3/uL; Eosinophils% 3.9 % (0-5); Hematocrit 26.1 % (37-47); Hemoglobin 7.5 g/dL (12.0-15.0); Lymphocyte # 1.31 X10^3/ul (0.83-4.51); Lymphocyte % 17.5 % (19-41); Mean Corp Hgb Conc 28.7 g/dL (32-36); Mean Corpuscular Hgb 27.4 pg (27.0-32.0); Mean Corpuscular Volume 95.3 fL (81-99); Mean Platelet Vol. 10.4 fl (6.2-12.0); Monocyte# 0.39 X10^3/uL; Monocyte% 5.2 % (0-10); NRBC Flagged by Analyzer 0 % (0-5); Neutrophil # 5.43 X10^3/uL (2.7-7.7); Neutrophil % 72.4 % (47-70); Platelet Count 196 K/mm3 (150-450); Red Blood Count 2.74 M/mm3 (4.2-5.4); White Blood Count 7.5 K/mm3 (4.4-11.0)
[2023-03-14 07:52] VITALS: O2SAT 93
[2023-03-14 08:14] LABS: Anion Gap 6 (5-15); BUN 47 mg/dL (7-18); BUN/Creat Ratio 31.1 RATIO (10-20); Calcium,Total 10.5 mg/dL (8.5-10.1); Chloride 111 mmol/L (98-107); Creatinine, Serum 1.51 mg/dL (0.55-1.02); EST Glomerular Filtration Rate 36 mL/min (>60); Est Glom Filt Rate - Afr Amer 43 mL/min (>60); Estimated Creatinine Clearance 28.86 ml/min; Glucose 132 mg/dL (74-106); Potassium 3.5 mmol/L (3.5-5.1); Sodium Level 149 mmol/L (136-145)
[2023-03-14 09:30] VITALS: BP 126/68; PULSE 84; RESP 18; TEMP 36.7; O2SAT 94
[2023-03-14] MEDS: lamoTRIgine 100 MG Tablet 200 MG GT (09:40)
[2023-03-14] MEDS: Memantine Hydrochloride 10 MG Tablet GT (09:40)
[2023-03-14] MEDS: Tolterodine Tartrate 4 MG CAP.SA PO (09:40)
[2023-03-14] MEDS: Losartan Potassium 25 MG Tablet GT (09:40)
[2023-03-14] MEDS: miSOPROStol 200 MCG Tablet GT ×4 (09:40→21:52)
[2023-03-14] MEDS: LORazepam 1 MG Tablet 2 MG GT ×3 (09:43→22:52)
[2023-03-14] MEDS: Heparin Injection (Vial) 5,000 UNIT/ML VIAL 5000 UNIT SC ×2 (10:04→21:52)
--- NOTE | 2023-03-14 10:46 | PN_ITS ---
Subjective Subjective Patient seen and examined. She had no active complaints and had an uneventful night. Review of systems is otherwise negative. Sodium is down to 149. Objective Data Objective Data Vital Signs: Vital Signs Temp Pulse Resp BP Pulse Ox O2 Del Method O2 Flow Rate 98.0 F 84 18 126/68 H 94 Nasal Cannula 1 03/14/23 09:30 03/14/23 09:30 03/14/23 09:30 03/14/23 09:30 03/14/23 09:30 03/14/23 09:30 03/14/23 09:25 FiO2 41 03/08/23 08:00 Oxygen Flow Rate (L/min) 1 Oxygen Delivery Method Nasal Cannula Weight: 121 lb 7.595 oz Body Mass Index (BMI) 20.2 Intake & Output: Intake and Output for Last 24 Hours 03/12/23 03/13/23 03/14/23 23:59 23:59 23:59 Intake Total 4380.00 / 4380.00 7133.50 / 7133.50 1682.5 / 1682.5 Output Total 3865 / 3865 2850 / 2850 1000 / 1000 Balance 515.00 / 515.00 4283.50 / 4283.50 682.5 / 682.5 Medical Nutrition Assessment Dietitian: Malnutrition Criteria Met Start: 03/07/23 10:37 Freq: Status: Active Protocol: Document 03/10/23 11:15 (Rec: 03/10/23 13:15 [id number]) Nutrition Malnutrition Evidence of Malnutrition Exists Yes Malnutrition (severe): Chronic Evidenced By Suboptimal Energy Intake ( Severe),Weight Loss (Severe) Intake Problem Inadequate Oral Intake Etiology related to difficulty swallowing Signs/Symptoms as evidenced by NPO Status Active Problem Clinical Problem Chronic Disease or Condition Related Malnutrition Etiology chronic, severe malnutrition related to inadequate oral intake d/t swallowing difficulty Signs/Symptoms as evidenced by unintentional 15.6% wt loss x 5 months; estimated PO intake meeting < 75% of estimated energy needs > 5 months Status Active Problem Recommendation Dietitian Recommendations/Changes 1.) Continue via PEG Vital HP at goal rate of 50mL/hour w/ 100mL H2O flush every 4 hours to provide 1200 calories, 105 g protein, and 1603mL fluid/ day. Advance from 20mL/hour by 10mL every 8-12 hours as tolerated until goal rate achieved. 2.) Pt is to remain NPO for now; DISC INSPECTOR working with pt for possible pleasure feeds as tolerated. Regular diet if/ when indicated. 3.) As TF tolerance established, will transition to bolus feedings for homegoing. Lab / Micro Data Result Diagrams: 03/14/23 06:58 03/14/23 06:58 Labs: Laboratory Results - last 24 hr 03/13/23 17:05: Ammonia 40.0 H 03/14/23 06:58: WBC 7.5, RBC 2.74 L, Hgb 7.5 L, Hct 26.1 L, MCV 95.3, MCH 27.4, MCHC 28.7 L, RDW Std Deviation 49.0 H, RDW Coeff of Lee 14.0, Plt Count 196, MPV 10.4, Immature Gran % (Auto) 0.900, Neut % (Auto) 72.4 H, Lymph % (Auto) 17.5 L, [place] % (Auto) 5.2, Eos % (Auto) 3.9, Baso % (Auto) 0.1, Absolute Neuts (auto) 5.4, Absolute Lymphs (auto) 1.31, Nucleated RBC % 0 03/14/23 06:58: Sodium 149 H, Potassium 3.5, Chloride 111 H, Carbon Dioxide 32.0, Anion Gap 6, BUN 47 H, Creatinine 1.51 H, Estim Creat Clear Calc 28.86, Est GFR (MDRD) Af Amer 43 L, Est GFR (MDRD) Non-Af 36 L, BUN/Creatinine Ratio 31.1 H, Glucose 132 H, Calcium 10.5 H Micro: Microbiology 03/07/23 03:15 Blood Culture (Wb) - Anticubital Right Blood Culture - Final No growth in 5 days. 03/07/23 02:30 Blood Culture (Wb) - Anticubital Right Blood Culture - Final No growth in 5 days. 03/07/23 02:23 Nasal Secretion SARS-CoV-2 & FLU Antigen (Rapid) - Final Physical Exam Const alert, oriented x3 and no apparent distress Constitutional Narrative: Frail General Appearance: cooperative and well developed HEENT normocephalic, head/scalp atraumatic, moist oral mucous membranes and oropharynx normal Eyes PERRL and EOMs intact bilaterally Neck no lymphadenopathy, supple and no JVD Lymph Lymphatic: no lymphadenopathy noted Resp normal respiratory effort, normal air movement and clear to auscultation bilaterally Cardio regular rate, regular rhythm, S1 normal heart sound, S2 normal heart sound and no murmurs GI normal to inspection, nondistended, normoactive bowel sounds, soft to palpation, non-tender and non-distended GI Narrative: PEG tube in situ Extremity normal capillary refill, no clubbing, cyanosis or edema and no calf tenderness Skin General Skin Exam: no breakdown Neuro CN's II-XII intact bilaterally and no focal motor deficits Psych thought process normal and cooperative Appearance: appropriate Assessment & Plan Assessment/Plan (1) Bilateral pneumonia: (2) Acute respiratory failure with hypoxia: PLAN: Plan #Aspiration pneumonia * on IV unasyn. now on 2L of oxygen by nasal canula * breathing treatment with bronchodilators * Titrate oxygen to maintain saturation above 90%. * to complete a 7 day course of IV unasyn today; dc IV unasyn. * #Acute hypoxic respiratory failure due to aspiration pneumonia: As above. #Hypernatremia * sodium is down to 149 today from 155 yesterday. 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 Nephrology on board. Per nephro, she didnt respond to desmopressin in the past. * per nephro, to continue D5W. * nephro on board * #Hypokalemia: resolved. potassium is 3.5 today. #Dysphagia: * Thought to be due to her esophageal stricture. She had EGD with dilatation of the esophageal stricture. * Speech therapy on board. She currently remains NPO. * Has an NG tube in place. On tube feeds #CHronic esophageal stricture: * seen by GI, and had dilatation done during this admission. * MRI of the brain is ordered per neurology did not show any evidence of stroke or any acute intracranial pathology. * for MRI of the brain as ordered by her neurologist to evaluate for neurological cause of the stricture. #Chronic severe protein calorie malnutrition: Nutrition on board. PEG tube in place for feeds. #Bipolar disorder: On ativan 2 mg 3 times daily #Dementia: On memantine #Hypothyroidism: On methimazole #Hyperammonemia: ammonia level is mildly elevated at 40. Will place on lactulose via GT tube. #Hypercalcemia: likely due to hyperparathyroidism. Will monitor. DVT prophylaxis: Lovenox Total time spent on evaluation and management of patient, reviewing chart and specialist notes, discussing plan with patient and his , discussion with nursing and ancillary staff as well as documentation: 45 mins Disposition: awaiting placement Charges/Coding Visit Charges Inpatient E&M: 49249 Subs Hosp L2
[2023-03-14 10:48] VITALS: O2SAT 97
[2023-03-14] MEDS: 0.9% Saline Lock 10 ML Syringe IV ×2 (12:30→17:10)
[2023-03-14] MEDS: Vital High Protein 1,000 ML 50 ML GT (12:42)
[2023-03-14 15:30] VITALS: BP 124/79; PULSE 86; RESP 18; TEMP 36.5; O2SAT 95
[2023-03-14 21:50] VITALS: BP 123/78; PULSE 83; RESP 16; TEMP 37.5; O2SAT 97
[2023-03-14] MEDS: Lactulose 20 GM/30 ML UDC GT (21:51)
[2023-03-15] VITALS (7 sets, daily range): BP systolic 101–128; BP diastolic 67–80; PULSE 76–92; RESP 18; TEMP 36.7–37; O2SAT 86–100; BMI 20.9
[2023-03-15] MEDS: Ondansetron 4 MG/2 ML Vial IV ×3 (05:11→17:53)
[2023-03-15] MEDS: 0.9% Saline Lock 10 ML Syringe IV ×4 (05:11→22:34)
[2023-03-15] MEDS: guaiFENesin 10 ML UDC (200MG/10ML) GT (05:13)
[2023-03-15 06:29] LABS: Absolute Lymphocyte Count 1.41 X10^3/uL (0.83-4.51); Absolute Neutrophil Count 5.7 X10^3/uL (2.0-7.7); Basophil# 0.01 X10^3/uL; Basophil% 0.1 % (0-1); Eosinophil# 0.25 X10^3/uL; Eosinophils% 3.2 % (0-5); Hematocrit 25.9 % (37-47); Hemoglobin 7.4 g/dL (12.0-15.0); Lymphocyte # 1.41 X10^3/ul (0.83-4.51); Lymphocyte % 17.9 % (19-41); Mean Corp Hgb Conc 28.6 g/dL (32-36); Mean Corpuscular Hgb 27.3 pg (27.0-32.0); Mean Corpuscular Volume 95.6 fL (81-99); Mean Platelet Vol. 10.3 fl (6.2-12.0); Monocyte# 0.37 X10^3/uL; Monocyte% 4.7 % (0-10); NRBC Flagged by Analyzer 0 % (0-5); Neutrophil # 5.74 X10^3/uL (2.7-7.7); Neutrophil % 73.1 % (47-70); Platelet Count 211 K/mm3 (150-450); RBC Distribution Width CV 13.8 % (11.6-14.6); RBC Distribution Width SD 48.3 fl (35.1-43.9); Red Blood Count 2.71 M/mm3 (4.2-5.4); White Blood Count 7.9 K/mm3 (4.4-11.0)
--- NOTE | 2023-03-15 06:32 | PCM.HOSP.N ---
Hospitalist Note Patient with weight gain per staff, still on similar supplementation, no marked dyspnea complaints compared to prior but still requiring supplementation. Fluids going but presume for her hypernatremia, will decrease dose mildly and will continue to monitor given weight change.
[2023-03-15 07:02] LABS: Anion Gap 6 (5-15); BUN 46 mg/dL (7-18); BUN/Creat Ratio 32.2 RATIO (10-20); Calcium,Total 10.8 mg/dL (8.5-10.1); Chloride 107 mmol/L (98-107); Creatinine, Serum 1.43 mg/dL (0.55-1.02); EST Glomerular Filtration Rate 38 mL/min (>60); Est Glom Filt Rate - Afr Amer 46 mL/min (>60); Estimated Creatinine Clearance 31.53 ml/min; Glucose 118 mg/dL (74-106); Potassium 3.3 mmol/L (3.5-5.1); Sodium Level 144 mmol/L (136-145)
[2023-03-15] MEDS: miSOPROStol 200 MCG Tablet GT ×4 (08:25→22:38)
[2023-03-15] MEDS: methIMAzole 10 MG TABLET 5 MG PO (08:25)
[2023-03-15] MEDS: Losartan Potassium 25 MG Tablet GT (08:25)
[2023-03-15] MEDS: Heparin Injection (Vial) 5,000 UNIT/ML VIAL 5000 UNIT SC ×2 (08:25→22:36)
[2023-03-15] MEDS: LORazepam 1 MG Tablet 2 MG GT ×2 (08:25→16:56)
[2023-03-15] MEDS: Potassium Chloride Oral Soln 20 MEQ/15 ML UDC 40 MEQ GT (08:25)
[2023-03-15] MEDS: Cinacalcet HCl 30 MG Tablet PO (08:25)
[2023-03-15] MEDS: lamoTRIgine 100 MG Tablet 200 MG GT (08:25)
[2023-03-15] MEDS: Tolterodine Tartrate 4 MG CAP.SA PO (08:26)
[2023-03-15] MEDS: Lactulose 20 GM/30 ML UDC GT ×2 (08:26→22:36)
[2023-03-15] MEDS: Memantine Hydrochloride 10 MG Tablet GT (08:26)
--- NOTE | 2023-03-15 08:27 | PCM.PN.REN ---
Subjective Subjective Following for CITLALY on CKD, hypercalcemia and hypernatremia. The patient complains of anxiety. She denies increasing shortness of breath. There is no chest pain, nausea or diarrhea. There is no peripheral edema. Objective Data Objective Data Vital Signs: Vital Signs Temp Pulse Resp BP Pulse Ox O2 Del Method O2 Flow Rate 98.0 F 76 18 122/67 H 94 Nasal Cannula 1 03/15/23 04:04 03/15/23 04:04 03/15/23 04:04 03/15/23 04:04 03/15/23 08:24 03/15/23 08:24 03/15/23 08:24 FiO2 41 03/08/23 08:00 Oxygen Flow Rate (L/min) 1 Oxygen Delivery Method Nasal Cannula Weight: 57.1 kg Body Mass Index (BMI) 20.9 Intake & Output: Intake and Output for Last 24 Hours 03/13/23 03/14/23 03/15/23 23:59 23:59 23:59 Intake Total 7133.50 / 7133.50 4487.0 / 4487.0 2077.5 / 2077.5 Output Total 2850 / 2850 4300 / 4300 1400 / 1400 Balance 4283.50 / 4283.50 187.0 / 187.0 677.5 / 677.5 Medical Nutrition Assessment Dietitian: Malnutrition Criteria Met Start: 03/07/23 10:37 Freq: Status: Active Protocol: Document 03/10/23 11:15 (Rec: 03/10/23 13:15 [id number]) Nutrition Malnutrition Evidence of Malnutrition Exists Yes Malnutrition (severe): Chronic Evidenced By Suboptimal Energy Intake ( Severe),Weight Loss (Severe) Intake Problem Inadequate Oral Intake Etiology related to difficulty swallowing Signs/Symptoms as evidenced by NPO Status Active Problem Clinical Problem Chronic Disease or Condition Related Malnutrition Etiology chronic, severe malnutrition related to inadequate oral intake d/t swallowing difficulty Signs/Symptoms as evidenced by unintentional 15.6% wt loss x 5 months; estimated PO intake meeting < 75% of estimated energy needs > 5 months Status Active Problem Recommendation Dietitian Recommendations/Changes 1.) Continue via PEG Vital HP at goal rate of 50mL/hour w/ 100mL H2O flush every 4 hours to provide 1200 calories, 105 g protein, and 1603mL fluid/ day. Advance from 20mL/hour by 10mL every 8-12 hours as tolerated until goal rate achieved. 2.) Pt is to remain NPO for now; SOFTWARE DEVELOPER MID LEVEL working with pt for possible pleasure feeds as tolerated. Regular diet if/ when indicated. 3.) As TF tolerance established, will transition to bolus feedings for homegoing. Lab / Micro Data Result Diagrams: 03/15/23 05:32 03/15/23 05:32 Labs: Laboratory Results - last 24 hr 03/15/23 05:32: WBC 7.9, RBC 2.71 L, Hgb 7.4 L, Hct 25.9 L, MCV 95.6, MCH 27.3, MCHC 28.6 L, RDW Std Deviation 48.3 H, RDW Coeff of Lee 13.8, Plt Count 211, MPV 10.3, Immature Gran % (Auto) 1.000 H, Neut % (Auto) 73.1 H, Lymph % (Auto) 17.9 L, [place] % (Auto) 4.7, Eos % (Auto) 3.2, Baso % (Auto) 0.1, Absolute Neuts (auto) 5.7, Absolute Lymphs (auto) 1.41, Nucleated RBC % 0 03/15/23 05:32: Sodium 144, Potassium 3.3 L, Chloride 107, Carbon Dioxide 31.0, Anion Gap 6, BUN 46 H, Creatinine 1.43 H, Estim Creat Clear Calc 31.53, Est GFR (MDRD) Af Amer 46 L, Est GFR (MDRD) Non-Af 38 L, BUN/Creatinine Ratio 32.2 H, Glucose 118 H, Calcium 10.8 H Micro: Microbiology 03/07/23 03:15 Blood Culture (Wb) - Anticubital Right Blood Culture - Final No growth in 5 days. 03/07/23 02:30 Blood Culture (Wb) - Anticubital Right Blood Culture - Final No growth in 5 days. 03/07/23 02:23 Nasal Secretion SARS-CoV-2 & FLU Antigen (Rapid) - Final Physical Exam Narrative Alert awake oriented x 3 no obvious distress no pallor no icterus no JVD s1s2 no murmurs lungs clear abdomen soft no organomegaly no edema no cyanosis Assessment & Plan Assessment/Plan (1) CITLALY (acute kidney injury): (2) Stage 3b chronic kidney disease (CKD): PLAN: (3) Hypercalcemia: (4) Acquired nephrogenic diabetes insipidus: PLAN: Plan The patient is a 72-year-old woman with past history of CKD stage G3b, primary hyperparathyroidism with chronic hypercalcemia, and DI secondary to prior lithium use, hypothyroidism, and bipolar disorder. Patient was admitted to the hospital on 03/07/2023 with aspiration pneumonia. Nephrology is following for CITLALY on CKD, hypernatremia, and hypercalcemia. CITLALY on CKD stage G3b. 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 The patient is followed in the office by my partner, Dr. Abrams. Baseline serum creatinine has been around 1.7 to 1.8 mg/dL. CITLALY is due to volume depletion. Serum creatinine peaked at 2.29 mg/dL on presentation (03/07/2023). Renal function has been improving with volume expansion. Current serum creatinine of 1.43 mg/dL is better than usual baseline. Since the patient has been started on tube feed, I will stop IV fluid. Recheck renal function again tomorrow. Hypernatremia. Serum sodium has been as high as 157 mmol/L on 03/09/2023. Hyponatremia is due to nephrogenic DI. The patient has been tolerating tube feed. Therefore, I will stop D5W infusion and increase water flush and tube feed to 250 mL every 4 hours. Recheck serum sodium tomorrow. Hypercalcemia. The patient has a history of primary hyperparathyroidism. She is on cinacalcet. Keeping patient volume repleted for also help to attenuate rise in serum creatinine. So far this admission, the patient's calcium peaked at 12.3 mg/dL on 03/04/2023. Calcium level has been relatively stable between 10.5 to 10.9 mg/dL in the last 3 days. Continue current dose of cinacalcet and follow serum calcium.
[2023-03-15] MEDS: Vital High Protein 1,000 ML 50 ML GT (09:51)
--- NOTE | 2023-03-15 10:25 | PN_ITS ---
Subjective Subjective Patient seen and examined. She had no active complaints today. She had an uneventful night and review of systems otherwise negative. She is down to 1 L of oxygen. Sodium is down to 144. Objective Data Objective Data Vital Signs: Vital Signs Temp Pulse Resp BP Pulse Ox O2 Del Method O2 Flow Rate 98.0 F 76 18 122/67 H 94 Nasal Cannula 1 03/15/23 04:04 03/15/23 04:04 03/15/23 04:04 03/15/23 04:04 03/15/23 08:24 03/15/23 08:24 03/15/23 08:24 FiO2 41 03/08/23 08:00 Oxygen Flow Rate (L/min) 1 Oxygen Delivery Method Nasal Cannula Weight: 125 lb 14.143 oz Body Mass Index (BMI) 20.9 Intake & Output: Intake and Output for Last 24 Hours 03/13/23 03/14/23 03/15/23 23:59 23:59 23:59 Intake Total 7133.50 / 7133.50 4487.0 / 4487.0 3510.0 / 3510.0 Output Total 2850 / 2850 4300 / 4300 1400 / 1400 Balance 4283.50 / 4283.50 187.0 / 187.0 2110.0 / 2110.0 Medical Nutrition Assessment Dietitian: Malnutrition Criteria Met Start: 03/07/23 10:37 Freq: Status: Active Protocol: Document 03/10/23 11:15 (Rec: 03/10/23 13:15 [id number]) Nutrition Malnutrition Evidence of Malnutrition Exists Yes Malnutrition (severe): Chronic Evidenced By Suboptimal Energy Intake ( Severe),Weight Loss (Severe) Intake Problem Inadequate Oral Intake Etiology related to difficulty swallowing Signs/Symptoms as evidenced by NPO Status Active Problem Clinical Problem Chronic Disease or Condition Related Malnutrition Etiology chronic, severe malnutrition related to inadequate oral intake d/t swallowing difficulty Signs/Symptoms as evidenced by unintentional 15.6% wt loss x 5 months; estimated PO intake meeting < 75% of estimated energy needs > 5 months Status Active Problem Recommendation Dietitian Recommendations/Changes 1.) Continue via PEG Vital HP at goal rate of 50mL/hour w/ 100mL H2O flush every 4 hours to provide 1200 calories, 105 g protein, and 1603mL fluid/ day. Advance from 20mL/hour by 10mL every 8-12 hours as tolerated until goal rate achieved. 2.) Pt is to remain NPO for now; HEEL STIFFENER working with pt for possible pleasure feeds as tolerated. Regular diet if/ when indicated. 3.) As TF tolerance established, will transition to bolus feedings for homegoing. Lab / Micro Data Result Diagrams: 03/15/23 05:32 03/15/23 05:32 Labs: Laboratory Results - last 24 hr 03/15/23 05:32: WBC 7.9, RBC 2.71 L, Hgb 7.4 L, Hct 25.9 L, MCV 95.6, MCH 27.3, MCHC 28.6 L, RDW Std Deviation 48.3 H, RDW Coeff of Lee 13.8, Plt Count 211, MPV 10.3, Immature Gran % (Auto) 1.000 H, Neut % (Auto) 73.1 H, Lymph % (Auto) 17.9 L, [place] % (Auto) 4.7, Eos % (Auto) 3.2, Baso % (Auto) 0.1, Absolute Neuts (auto) 5.7, Absolute Lymphs (auto) 1.41, Nucleated RBC % 0 03/15/23 05:32: Sodium 144, Potassium 3.3 L, Chloride 107, Carbon Dioxide 31.0, Anion Gap 6, BUN 46 H, Creatinine 1.43 H, Estim Creat Clear Calc 31.53, Est GFR (MDRD) Af Amer 46 L, Est GFR (MDRD) Non-Af 38 L, BUN/Creatinine Ratio 32.2 H, Glucose 118 H, Calcium 10.8 H Micro: Microbiology 03/07/23 03:15 Blood Culture (Wb) - Anticubital Right Blood Culture - Final No growth in 5 days. 03/07/23 02:30 Blood Culture (Wb) - Anticubital Right Blood Culture - Final No growth in 5 days. 03/07/23 02:23 Nasal Secretion SARS-CoV-2 & FLU Antigen (Rapid) - Final Physical Exam Const alert, oriented x3 and no apparent distress Constitutional Narrative: Frail General Appearance: cooperative HEENT normocephalic, head/scalp atraumatic, moist oral mucous membranes and oropharynx normal Eyes PERRL and EOMs intact bilaterally Neck no lymphadenopathy, supple and no JVD Lymph Lymphatic: no lymphadenopathy noted Resp normal respiratory effort, normal air movement and clear to auscultation bilaterally Cardio regular rate, regular rhythm, S1 normal heart sound, S2 normal heart sound and no murmurs GI normal to inspection, nondistended, normoactive bowel sounds, soft to palpation, non-tender and non-distended GI Narrative: PEG tube in situ Extremity normal capillary refill, no clubbing, cyanosis or edema and no calf tenderness Skin General Skin Exam: no breakdown Neuro CN's II-XII intact bilaterally and no focal motor deficits Psych thought process normal and cooperative Appearance: appropriate Assessment & Plan Assessment/Plan (1) Bilateral pneumonia: (2) Acute respiratory failure with hypoxia: PLAN: Plan #Aspiration pneumonia * on IV unasyn. now on 2L of oxygen by nasal canula * breathing treatment with bronchodilators * Titrate oxygen to maintain saturation above 90%. * completed a 7 day course of IV unasyn. #Acute hypoxic respiratory failure due to aspiration pneumonia: As above. 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 Nephrology on board. Per nephro, she didnt respond to desmopressin in the past. * dc D5W today * nephro on board * #Hypokalemia:potassium is 3.3. Will replace and trend. #Dysphagia: * Thought to be due to her esophageal stricture. She had EGD with dilatation of the esophageal stricture. * Speech therapy on board. She currently remains NPO. * Has an NG tube in place. On tube feeds * per GI note, GI discussed her bipolar with her psychiatrist; per her psychiat rist she had severe bipolar disorder with catatonia and that the only way to keep her from going into catatonia after undergoing extensive electroconvulsive therapy was to have her on high doses of ativan. Per GI, most of her enteric issues namely the esophageal dysphagia and gastroparesis are likely secondary to medication side effect. Due to risk of catatonia, will continue benzodiazepines at same doses. #CHronic esophageal stricture: * seen by GI, and had dilatation done during this admission. * MRI of the brain is ordered per neurology did not show any evidence of stroke or any acute intracranial pathology. * for MRI of the brain as ordered by her neurologist to evaluate for neurological cause of the stricture. #Chronic severe protein calorie malnutrition: Nutrition on board. PEG tube in place for feeds. #Bipolar disorder: On ativan 2 mg 3 times daily #Dementia: On memantine #Hypothyroidism: On methimazole #Hyperammonemia: ammonia level is mildly elevated at 40. on lactulose via NG tube. #Hypercalcemia: likely due to hyperparathyroidism. Will monitor. DVT prophylaxis: Lovenox Total time spent on evaluation and management of patient, reviewing chart and specialist notes, discussing plan with patient, discussion with nursing and ancillary staff as well as documentation: 42 mins Disposition: awaiting placement, pending precert. Charges/Coding Visit Charges Inpatient E&M: 18473 Subs Hosp L2
--- NOTE | 2023-03-15 16:35 | NURSING ---
This RN taking over care of pt.
[2023-03-16] MEDS: LORazepam 1 MG Tablet 2 MG GT ×3 (02:06→16:56)
[2023-03-16] MEDS: Ondansetron 4 MG/2 ML Vial IV ×5 (02:06→23:04)
[2023-03-16] MEDS: Vital High Protein 1,000 ML 50 ML GT ×2 (02:10→22:59)
[2023-03-16 03:19] VITALS: BMI 20.2
[2023-03-16 04:30] VITALS: BP 112/80; PULSE 90; RESP 18; TEMP 36.6; O2SAT 94
[2023-03-16 06:25] LABS: Absolute Lymphocyte Count 1.07 X10^3/uL (0.83-4.51); Absolute Neutrophil Count 4.8 X10^3/uL (2.0-7.7); Basophil# 0.02 X10^3/uL; Basophil% 0.3 % (0-1); Eosinophil# 0.15 X10^3/uL; Eosinophils% 2.3 % (0-5); Hematocrit 27.5 % (37-47); Lymphocyte # 1.07 X10^3/ul (0.83-4.51); Lymphocyte % 16.6 % (19-41); Mean Corp Hgb Conc 29.1 g/dL (32-36); Mean Corpuscular Hgb 27.8 pg (27.0-32.0); Mean Corpuscular Volume 95.5 fL (81-99); Mean Platelet Vol. 10.3 fl (6.2-12.0); Monocyte# 0.39 X10^3/uL; NRBC Flagged by Analyzer 0 % (0-5); Neutrophil # 4.78 X10^3/uL (2.7-7.7); Platelet Count 242 K/mm3 (150-450); RBC Distribution Width CV 13.9 % (11.6-14.6); RBC Distribution Width SD 48.6 fl (35.1-43.9); Red Blood Count 2.88 M/mm3 (4.2-5.4); White Blood Count 6.5 K/mm3 (4.4-11.0)
[2023-03-16] MEDS: 0.9% Saline Lock 10 ML Syringe IV ×3 (06:29→21:08)
[2023-03-16 06:30] VITALS: BP 128/77; PULSE 80; RESP 18; TEMP 36.6; O2SAT 96
[2023-03-16 07:02] LABS: Anion Gap 4 (5-15); BUN 50 mg/dL (7-18); BUN/Creat Ratio 32.3 RATIO (10-20); Calcium,Total 12.1 mg/dL (8.5-10.1); Chloride 117 mmol/L (98-107); Creatinine, Serum 1.55 mg/dL (0.55-1.02); EST Glomerular Filtration Rate 35 mL/min (>60); Est Glom Filt Rate - Afr Amer 42 mL/min (>60); Estimated Creatinine Clearance 28.17 ml/min; Glucose 118 mg/dL (74-106); Potassium 4.1 mmol/L (3.5-5.1); Sodium Level 155 mmol/L (136-145)
[2023-03-16] MEDS: Cinacalcet HCl 30 MG Tablet PO (09:26)
[2023-03-16] MEDS: Lactulose 20 GM/30 ML UDC GT ×2 (09:27→21:08)
[2023-03-16] MEDS: miSOPROStol 200 MCG Tablet GT ×4 (09:27→22:58)
[2023-03-16] MEDS: lamoTRIgine 100 MG Tablet 200 MG GT (09:28)
[2023-03-16] MEDS: Tolterodine Tartrate 4 MG CAP.SA PO (09:28)
[2023-03-16] MEDS: Losartan Potassium 25 MG Tablet GT (09:28)
[2023-03-16] MEDS: Heparin Injection (Vial) 5,000 UNIT/ML VIAL 5000 UNIT SC ×2 (09:28→21:08)
[2023-03-16] MEDS: Memantine Hydrochloride 10 MG Tablet GT (09:29)
[2023-03-16] MEDS: methIMAzole 10 MG TABLET 5 MG PO (09:29)
--- NOTE | 2023-03-16 09:55 | CASEMGMT ---
[place] notified [facility] in TCU to go ahead and start pre-cert request for patient. Tyra Barrios [employer] SAFETY PROGRAM COORDINATOR [place]
[2023-03-16 10:16] VITALS: BP 132/83; PULSE 86; RESP 16; TEMP 37; O2SAT 98
--- NOTE | 2023-03-16 11:25 | PN.HOSP_ITS ---
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) Hypoxemia (03/07/23) Subjective Subjective Patient concerned about her sodium and calcium and is feeling generally weak still but motivated to go to TCU Objective Data Objective Data Vital Signs: Vital Signs Temp Pulse Resp BP Pulse Ox O2 Del Method O2 Flow Rate 98.6 F 86 16 132/83 H 98 Nasal Cannula 1 03/16/23 10:16 03/16/23 10:16 03/16/23 10:16 03/16/23 10:16 03/16/23 10:16 03/16/23 10:16 03/16/23 10:16 FiO2 41 03/08/23 08:00 Oxygen Flow Rate (L/min) 1 Oxygen Delivery Method Nasal Cannula Weight: 55.2 kg Body Mass Index (BMI) 20.2 Intake & Output: Intake and Output for Last 24 Hours 03/14/23 03/15/23 03/16/23 23:59 23:59 23:59 Intake Total 4487.0 / 4487.0 3680.0 / 3680.0 925.83 / 925.83 Output Total 4300 / 4300 2550 / 2550 850 / 850 Balance 187.0 / 187.0 1130.0 / 1130.0 75.83 / 75.83 Medical Nutrition Assessment Dietitian: Malnutrition Criteria Met Start: 03/07/23 10:37 Freq: Status: Active Protocol: Document 03/10/23 11:15 AG (Rec: 03/10/23 13:15 AG [id number]) Nutrition Malnutrition Evidence of Malnutrition Exists Yes Malnutrition (severe): Chronic Evidenced By Suboptimal Energy Intake ( Severe),Weight Loss (Severe) Intake Problem Inadequate Oral Intake Etiology related to difficulty swallowing Signs/Symptoms as evidenced by NPO Status Active Problem Clinical Problem Chronic Disease or Condition Related Malnutrition Etiology chronic, severe malnutrition related to inadequate oral intake d/t swallowing difficulty Signs/Symptoms as evidenced by unintentional 15.6% wt loss x 5 months; estimated PO intake meeting < 75% of estimated energy needs > 5 months Status Active Problem Recommendation Dietitian Recommendations/Changes 1.) Continue via PEG Vital HP at goal rate of 50mL/hour w/ 100mL H2O flush every 4 hours to provide 1200 calories, 105 g protein, and 1603mL fluid/ day. Advance from 20mL/hour by 10mL every 8-12 hours as tolerated until goal rate achieved. 2.) Pt is to remain NPO for now; GIFT SHOP MANAGER working with pt for possible pleasure feeds as tolerated. Regular diet if/ when indicated. 3.) As TF tolerance established, will transition to bolus feedings for homegoing. Lab / Micro Data Result Diagrams: 03/16/23 06:05 03/16/23 06:05 Labs: Laboratory Results - last 24 hr 03/16/23 06:05: WBC 6.5, RBC 2.88 L, Hgb 8.0 L, Hct 27.5 L, MCV 95.5, MCH 27.8, MCHC 29.1 L, RDW Std Deviation 48.6 H, RDW Coeff of Lee 13.9, Plt Count 242, MPV 10.3, Immature Gran % (Auto) 0.800, Neut % (Auto) 74.0 H, Lymph % (Auto) 16.6 L, [place] % (Auto) 6.0, Eos % (Auto) 2.3, Baso % (Auto) 0.3, Absolute Neuts (auto) 4.8, Absolute Lymphs (auto) 1.07, Nucleated RBC % 0 03/16/23 06:05: Sodium 155 H, Potassium 4.1, Chloride 117 H, Carbon Dioxide 34.0 H, Anion Gap 4 L, BUN 50 H, Creatinine 1.55 H, Estim Creat Clear Calc 28.17, Est GFR (MDRD) Af Amer 42 L, Est GFR (MDRD) Non-Af 35 L, BUN/Creatinine Ratio 32.3 H , Glucose 118 H, Calcium 12.1 H Micro: Microbiology 03/07/23 03:15 Blood Culture (Wb) - Anticubital Right Blood Culture - Final No growth in 5 days. 03/07/23 02:30 Blood Culture (Wb) - Anticubital Right Blood Culture - Final No growth in 5 days. 03/07/23 02:23 Nasal Secretion SARS-CoV-2 & FLU Antigen (Rapid) - Final Physical Exam Narrative General: Alert, oriented, no apparent distress HEENT: Atraumatic, normocephalic Eyes: Anicteric, normal conjunctiva, extraocular movements grossly intact Neck: Supple Respiratory: normal respiratory effort Cardiovascular: Regular rate GI: Soft, nontender, nondistended Extremities: No edema Musculoskeletal: Moving all extremities Neuro: No overt focal neurological deficits Skin: No rashes appreciated Psych: Cooperative Assessment & Plan Assessment/Plan (1) Bilateral pneumonia: (2) Acute respiratory failure with hypoxia: PLAN: Plan #Hypernatremia/hypercalcemia * sodium is down to 144 today * 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 Nephrology on board. Per nephro, she didnt respond to desmopressin in the past. * dc D5W today * nephro on board -03/16: Sodium trended up to 155 today and her free water in her tube feeds was increased to 350 mL every 4 hours. She continues to work with speech. Continue Cinacalcet. Discussed with nephrology, she is okay for discharge to TCU and they can continue to follow upon transfer. Discussed with patient and her #Acute hypoxic resp failure 2/2 Aspiration pneumonia-resolved * on IV unasyn. now on 2L of oxygen by nasal canula * breathing treatment with bronchodilators * Titrate oxygen to maintain saturation above 90%. * completed a 7 day course of IV unasyn. -03/16: Resolved #Dysphagia: * Thought to be due to her esophageal stricture. She had EGD with dilatation of the esophageal stricture. * Speech therapy on board. She currently remains NPO. * Has an NG tube in place. On tube feeds * per GI note, GI discussed her bipolar with her psychiatrist; per her psychiatrist she had severe bipolar disorder with catatonia and that the only way to keep her from going into catatonia after undergoing extensive electroconvulsive therapy was to have her on high doses of ativan. Per GI, most of her enteric issues namely the esophageal dysphagia and gastroparesis are likely secondary to medication side effect. Due to risk of catatonia, will continue benzodiazepines at same doses. -03/16: Continue to work with speech therapy, receiving nutrition through PEG tube now #Chronic esophageal stricture: * seen by GI, and had dilatation done during this admission. * MRI of the brain is ordered per neurology did not show any evidence of stroke or any acute intracranial pathology. * for MRI of the brain as ordered by her neurologist to evaluate for neurological cause of the stricture. #Chronic severe protein calorie malnutrition: Nutrition on board. PEG tube in place for feeds. #Bipolar disorder: On ativan 2 mg 3 times daily #Dementia: On memantine #Hypothyroidism: On methimazole #Hyperammonemia: ammonia leve had been mildly elevated at 40 and she was given lactulose with good response with bowel movements #Hypercalcemia: likely due to hyperparathyroidism. Will monitor. DVT prophylaxis: Lovenox subcu Total time spent on evaluation and management of patient, reviewing chart and specialist notes, discussing plan with patient, discussion with nursing and ancillary staff as well as documentation: 30 mins Disposition: awaiting placement to TCU, pending precert. Charges/Coding Visit Charges Inpatient E&M: 03405 Subs Hosp L2
--- NOTE | 2023-03-16 12:00 | CASEMGMT ---
Social Work Pt has both LW and healthcare POA forms in summary tab of [employer], Austin Escamilla is listed as healthcare POA. PARMJIT Aceves
[2023-03-16 12:19] VITALS: O2SAT 89
--- NOTE | 2023-03-16 12:25 | PCM.PN.REN ---
Subjective Subjective Patient sitting up in bed working with speech therapy. Denies any complaints. Objective Data Objective Data Vital Signs: Vital Signs Temp Pulse Resp BP Pulse Ox O2 Del Method O2 Flow Rate 98.6 F 86 16 132/83 H 98 Nasal Cannula 1 03/16/23 10:16 03/16/23 10:16 03/16/23 10:16 03/16/23 10:16 03/16/23 10:16 03/16/23 10:16 03/16/23 10:16 FiO2 41 03/08/23 08:00 Oxygen Flow Rate (L/min) 1 Oxygen Delivery Method Nasal Cannula Weight: 55.2 kg Body Mass Index (BMI) 20.2 Intake & Output: Intake and Output for Last 24 Hours 03/14/23 03/15/23 03/16/23 23:59 23:59 23:59 Intake Total 4487.0 / 4487.0 3680.0 / 3680.0 925.83 / 925.83 Output Total 4300 / 4300 2550 / 2550 1850 / 1850 Balance 187.0 / 187.0 1130.0 / 1130.0 -924.17 / -924.17 Medical Nutrition Assessment Dietitian: Malnutrition Criteria Met Start: 03/07/23 10:37 Freq: Status: Active Protocol: Document 03/10/23 11:15 (Rec: 03/10/23 13:15 [id number]) Nutrition Malnutrition Evidence of Malnutrition Exists Yes Malnutrition (severe): Chronic Evidenced By Suboptimal Energy Intake ( Severe),Weight Loss (Severe) Intake Problem Inadequate Oral Intake Etiology related to difficulty swallowing Signs/Symptoms as evidenced by NPO Status Active Problem Clinical Problem Chronic Disease or Condition Related Malnutrition Etiology chronic, severe malnutrition related to inadequate oral intake d/t swallowing difficulty Signs/Symptoms as evidenced by unintentional 15.6% wt loss x 5 months; estimated PO intake meeting < 75% of estimated energy needs > 5 months Status Active Problem Recommendation Dietitian Recommendations/Changes 1.) Continue via PEG Vital HP at goal rate of 50mL/hour w/ 100mL H2O flush every 4 hours to provide 1200 calories, 105 g protein, and 1603mL fluid/ day. Advance from 20mL/hour by 10mL every 8-12 hours as tolerated until goal rate achieved. 2.) Pt is to remain NPO for now; SPARES SCHEDULER working with pt for possible pleasure feeds as tolerated. Regular diet if/ when indicated. 3.) As TF tolerance established, will transition to bolus feedings for homegoing. Lab / Micro Data Result Diagrams: 03/16/23 06:05 03/16/23 06:05 Labs: Laboratory Results - last 24 hr 03/16/23 06:05: WBC 6.5, RBC 2.88 L, Hgb 8.0 L, Hct 27.5 L, MCV 95.5, MCH 27.8, MCHC 29.1 L, RDW Std Deviation 48.6 H, RDW Coeff of Lee 13.9, Plt Count 242, MPV 10.3, Immature Gran % (Auto) 0.800, Neut % (Auto) 74.0 H, Lymph % (Auto) 16.6 L, [place] % (Auto) 6.0, Eos % (Auto) 2.3, Baso % (Auto) 0.3, Absolute Neuts (auto) 4.8, Absolute Lymphs (auto) 1.07, Nucleated RBC % 0 03/16/23 06:05: Sodium 155 H, Potassium 4.1, Chloride 117 H, Carbon Dioxide 34.0 H, Anion Gap 4 L, BUN 50 H, Creatinine 1.55 H, Estim Creat Clear Calc 28.17, Est GFR (MDRD) Af Amer 42 L, Est GFR (MDRD) Non-Af 35 L, BUN/Creatinine Ratio 32.3 H, Glucose 118 H, Calcium 12.1 H Micro: Microbiology 03/07/23 03:15 Blood Culture (Wb) - Anticubital Right Blood Culture - Final No growth in 5 days. 03/07/23 02:30 Blood Culture (Wb) - Anticubital Right Blood Culture - Final No growth in 5 days. 03/07/23 02:23 Nasal Secretion SARS-CoV-2 & FLU Antigen (Rapid) - Final Physical Exam Narrative Alert awake oriented x 3, no apparent distress s1s2, no murmurs lungs clear anteriorly and posteriorly abdomen soft, nontender, positive bowel sounds no edema Assessment & Plan Assessment/Plan (1) CITLALY (acute kidney injury): (2) Stage 3b chronic kidney disease (CKD): (3) Hypercalcemia: (4) Acquired nephrogenic diabetes insipidus: PLAN: Plan The patient is a 72-year-old woman with past history of CKD stage G3b, primary hyperparathyroidism with chronic hypercalcemia, and DI secondary to prior lithium use, hypothyroidism, and bipolar disorder. Patient was admitted to the hospital on 03/07/2023 with aspiration pneumonia. Nephrology is following for CITLALY on CKD, hypernatremia, and hypercalcemia. CITLALY on CKD stage G3b. 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 The patient is followed by Dr. Abrams. Baseline serum creatinine has been around 1.7 to 1.8 mg/dL. CITLALY secondary to volume depletion. Serum creatinine peaked at 2.29 mg/dL 03/07/2023, creatinine is now 1.55 mg/dL. Renal function had improved with volume expansion with IV fluids. Since patient is on tube feeding IV fluids were stopped. Will monitor renal function off IVF at this time. Acute on chronic hypernatremia. Serum sodium has been as high as 161 on 03/12. Patient had been on D5W, sodium was 144 yesterday. D5W stopped and sodium is up to 155 today. Chronic hypernatremia is due to nephrogenic DI. The patient has been tolerating tube feeds. Increase free water 350 mL every 4 hours. Patient is also taking sips of thin water and ice chips by mouth. Hypercalcemia. The patient has a history of primary hyperparathyroidism. She is on cinacalcet. So far this admission, the patient's calcium peaked at 12.3 mg/dL on 03/04/2023. Calcium level has been relatively stable between 10.5 to 10.9 mg/dL for last 3 days but today up to 12.1. Continue current dose of cinacalcet and follow serum calcium. Disposition; possible transfer to TCU
--- NOTE | 2023-03-16 14:07 | CHAPLAIN ---
Type of Pastoral Visit ___ Initial Visit _x__ Follow-up Visit ___ On-call Visit ___ General Patient Visit ___ Spiritual Assessment ___ Family Conference ___ Bereavement ___ Rapid Response ___ Code Blue ___ Other (describe below) Pastoral Care Referral From _x__ Patient ___ Family ___ Nurse ___ Physician ___ Help Desk Engineer ___ Birdcage Assembler ___ Other (describe below) Sacrament/Intervention _x__ Active listening ___ Anointing ___ Catholic ___ Bereavement ___ Communion ___ Leeanne exploration ___ _x__ Life review _x__ Prayer ___ Reconciliation ___ Sacrament of Sick _x__ Supportive presence ___ Wedding ___ Other (describe below) Pastoral Comments patient says she remembers this superintendent laundry from last visit but assumes that I am from [facility] again; pt speaks of life and feeling some small improvement; pt starts to talk about her sister out of state and gives much details about sisters and family; pt is often tearful but wants to talk; supportive presence, listening ear, affirmation of feelings, prayer given
--- NOTE | 2023-03-16 14:30 | CASEMGMT ---
[place] realized SW has never told patient and her that patient was accepted in the Transitional Care Unit. [place] let them know we are just waiting on insurance approval. [place] told them insurance will probably give us an answer in the next day or so. They thanked [place] for the update. Plan: d/c to [facility] pending insurance approval. Tyra JI
[2023-03-16 14:50] VITALS: O2SAT 95
[2023-03-16 19:55] VITALS: BP 122/82; PULSE 90; RESP 17; TEMP 37; O2SAT 94
[2023-03-16] MEDS: MELATONIN 3 MG TABLET GT (22:58)
[2023-03-17 01:50] VITALS: BP 128/77; PULSE 90; RESP 18; TEMP 37; O2SAT 95
[2023-03-17] MEDS: LORazepam 1 MG Tablet 2 MG GT ×3 (02:00→19:36)
[2023-03-17 04:17] VITALS: BMI 20.3
[2023-03-17 05:39] VITALS: BP 116/70; PULSE 89; RESP 18; TEMP 36.3; O2SAT 95
[2023-03-17] MEDS: 0.9% Saline Lock 10 ML Syringe IV (05:41)
[2023-03-17] MEDS: Ondansetron 4 MG/2 ML Vial IV ×3 (05:41→17:32)
[2023-03-17 06:31] LABS: Absolute Lymphocyte Count 1.41 X10^3/uL (0.83-4.51); Absolute Neutrophil Count 6.2 X10^3/uL (2.0-7.7); Basophil# 0.02 X10^3/uL; Basophil% 0.2 % (0-1); Eosinophil# 0.12 X10^3/uL; Eosinophils% 1.4 % (0-5); Hematocrit 27.8 % (37-47); Hemoglobin 7.8 g/dL (12.0-15.0); Lymphocyte # 1.41 X10^3/ul (0.83-4.51); Lymphocyte % 16.7 % (19-41); Mean Corp Hgb Conc 28.1 g/dL (32-36); Mean Corpuscular Hgb 27.4 pg (27.0-32.0); Mean Corpuscular Volume 97.5 fL (81-99); Mean Platelet Vol. 10.5 fl (6.2-12.0); Monocyte# 0.62 X10^3/uL; Monocyte% 7.4 % (0-10); NRBC Flagged by Analyzer 0 % (0-5); Neutrophil % 73.6 % (47-70); Platelet Count 309 K/mm3 (150-450); RBC Distribution Width CV 14.3 % (11.6-14.6); RBC Distribution Width SD 50.4 fl (35.1-43.9); Red Blood Count 2.85 M/mm3 (4.2-5.4); White Blood Count 8.4 K/mm3 (4.4-11.0)
[2023-03-17 07:01] LABS: Anion Gap 2 (5-15); BUN 57 mg/dL (7-18); BUN/Creat Ratio 33.1 RATIO (10-20); Calcium,Total 12.6 mg/dL (8.5-10.1); Chloride 116 mmol/L (98-107); Creatinine, Serum 1.72 mg/dL (0.55-1.02); EST Glomerular Filtration Rate 31 mL/min (>60); Est Glom Filt Rate - Afr Amer 37 mL/min (>60); Estimated Creatinine Clearance 25.48 ml/min; Glucose 113 mg/dL (74-106); Potassium 4.1 mmol/L (3.5-5.1); Sodium Level 152 mmol/L (136-145)
[2023-03-17 07:40] VITALS: O2SAT 92
--- NOTE | 2023-03-17 09:52 | PN.RENAL_ITS ---
Subjective Subjective Following for CITLALY superimposed on CKD, hypercalcemia, hypernatremia Patient is sitting in chair. Denies any complaints. at bedside. No overnight events. Objective Data Objective Data Vital Signs: Vital Signs Temp Pulse Resp BP Pulse Ox O2 Del Method O2 Flow Rate 97.3 F L 89 18 116/70 92 Room Air 1 03/17/23 05:39 03/17/23 05:39 03/17/23 05:39 03/17/23 05:39 03/17/23 07:40 03/17/23 08:01 03/17/23 07:40 FiO2 41 03/08/23 08:00 Oxygen Flow Rate (L/min) 1 Oxygen Delivery Method Room Air Weight: 55.4 kg Body Mass Index (BMI) 20.3 Intake & Output: Intake and Output for Last 24 Hours 03/15/23 03/16/23 03/17/23 23:59 23:59 23:59 Intake Total 3680.0 / 3680.0 2035.83 / 2035.83 Output Total 2550 / 2550 2600 / 2600 300 / 300 Balance 1130.0 / 1130.0 -564.17 / -564.17 -300 / -300 Medical Nutrition Assessment Dietitian: Malnutrition Criteria Met Start: 03/07/23 10:37 Freq: Status: Active Protocol: Document 03/10/23 11:15 (Rec: 03/10/23 13:15 [id number]) Nutrition Malnutrition Evidence of Malnutrition Exists Yes Malnutrition (severe): Chronic Evidenced By Suboptimal Energy Intake ( Severe),Weight Loss (Severe) Intake Problem Inadequate Oral Intake Etiology related to difficulty swallowing Signs/Symptoms as evidenced by NPO Status Active Problem Clinical Problem Chronic Disease or Condition Related Malnutrition Etiology chronic, severe malnutrition related to inadequate oral intake d/t swallowing difficulty Signs/Symptoms as evidenced by unintentional 15.6% wt loss x 5 months; estimated PO intake meeting < 75% of estimated energy needs > 5 months Status Active Problem Recommendation Dietitian Recommendations/Changes 1.) Continue via PEG Vital HP at goal rate of 50mL/hour w/ 100mL H2O flush every 4 hours to provide 1200 calories, 105 g protein, and 1603mL fluid/ day. Advance from 20mL/hour by 10mL every 8-12 hours as tolerated until goal rate achieved. 2.) Pt is to remain NPO for now; EMPLOYMENT TRAINER working with pt for possible pleasure feeds as tolerated. Regular diet if/ when indicated. 3.) As TF tolerance established, will transition to bolus feedings for homegoing. Lab / Micro Data Result Diagrams: 03/17/23 06:05 03/17/23 06:05 Labs: Laboratory Results - last 24 hr 03/17/23 06:05: WBC 8.4, RBC 2.85 L, Hgb 7.8 L, Hct 27.8 L, MCV 97.5, MCH 27.4, MCHC 28.1 L, RDW Std Deviation 50.4 H, RDW Coeff of Lee 14.3, Plt Count 309, MPV 10.5, Immature Gran % (Auto) 0.700, Neut % (Auto) 73.6 H, Lymph % (Auto) 16.7 L, [place] % (Auto) 7.4, Eos % (Auto) 1.4, Baso % (Auto) 0.2, Absolute Neuts (auto) 6.2, Absolute Lymphs (auto) 1.41, Nucleated RBC % 0 03/17/23 06:05: Sodium 152 H, Potassium 4.1, Chloride 116 H, Carbon Dioxide 34.0 H, Anion Gap 2 L, BUN 57 H, Creatinine 1.72 H, Estim Creat Clear Calc 25.48, Est GFR (MDRD) Af Amer 37 L, Est GFR (MDRD) Non-Af 31 L, BUN/Creatinine Ratio 33.1 H , Glucose 113 H, Calcium 12.6 H* Micro: Microbiology 03/07/23 03:15 Blood Culture (Wb) - Anticubital Right Blood Culture - Final No growth in 5 days. 03/07/23 02:30 Blood Culture (Wb) - Anticubital Right Blood Culture - Final No growth in 5 days. 03/07/23 02:23 Nasal Secretion SARS-CoV-2 & FLU Antigen (Rapid) - Final Physical Exam Narrative Alert awake oriented x 3, no apparent distress s1s2, no murmurs lungs clear anteriorly and posteriorly abdomen soft, nontender, positive bowel sounds no edema Assessment & Plan Assessment/Plan (1) CITLALY (acute kidney injury): (2) Stage 3b chronic kidney disease (CKD): (3) Hypercalcemia: (4) Acquired nephrogenic diabetes insipidus: PLAN: Plan The patient is a 72-year-old woman with past history of CKD stage G3b, primary hyperparathyroidism with chronic hypercalcemia followed by endocrinology, and DI secondary to prior lithium use, hypothyroidism, and bipolar disorder. Patient was admitted to the hospital on 03/07/2023 with aspiration pneumonia. Nephrology is following for CITLALY on CKD, hypernatremia, and hypercalcemia. CITLALY on CKD stage G3b. 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 The patient is followed by Dr. Abrams. Baseline serum creatinine has been around 1.7 to 1.8 mg/dL. CITLALY secondary to volume depletion. Serum creatinine peaked at 2.29 mg/dL 03/07/2023, creatinine is now 1.72 mg/dL. Renal function had improved with volume expansion with IV fluids. Since patient is on tube feeding IV fluids were stopped. Will monitor renal function off IVF at this time. Acute on chronic hypernatremia. Chronic hypernatremia is due to nephrogenic DI. Serum sodium has been as high as 161 on 03/12. Patient had been on D5W, sodium improved to 144 therefore D5W stopped. Sodium level up to 155 yesterday, free water increased to 350 mL every 4 hours. Slight improvement in sodium today to 152, will increase free water to 400 mL per tube feeding every 4 hours. Reviewed this with patient's . Per patient had been drinking 2-3L total fluids daily. The patient has been tolerating tube feeds. Patient is also taking sips of thin water and ice chips by mouth. Hypercalcemia. The patient has a history of primary hyperparathyroidism. PTH 77 02/10/2023. Continue Sensipar as ordered. Monitor calcium levels. Disposition; possible transfer to TCU
[2023-03-17] MEDS: Losartan Potassium 25 MG Tablet GT (10:28)
[2023-03-17] MEDS: miSOPROStol 200 MCG Tablet GT ×4 (10:28→22:01)
[2023-03-17] MEDS: Tolterodine Tartrate 4 MG CAP.SA PO (10:28)
[2023-03-17] MEDS: Lactulose 20 GM/30 ML UDC GT ×2 (10:28→22:01)
[2023-03-17] MEDS: lamoTRIgine 100 MG Tablet 200 MG GT (10:29)
[2023-03-17] MEDS: Memantine Hydrochloride 10 MG Tablet GT (10:29)
[2023-03-17] MEDS: Heparin Injection (Vial) 5,000 UNIT/ML VIAL 5000 UNIT SC ×2 (10:29→22:01)
[2023-03-17 11:10] VITALS: BP 117/75; PULSE 96; RESP 161; TEMP 36.8; O2SAT 98
--- NOTE | 2023-03-17 14:47 | PN.HOSP_ITS ---
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) Hypoxemia (03/07/23) Subjective Subjective Feeling fair today, notes dry lips but no other acute complaints Objective Data Objective Data Vital Signs: Vital Signs Temp Pulse Resp BP Pulse Ox O2 Del Method O2 Flow Rate 98.3 F 96 161 H 117/75 98 Room Air 1 03/17/23 11:10 03/17/23 11:10 03/17/23 11:10 03/17/23 11:10 03/17/23 11:10 03/17/23 14:00 03/17/23 09:31 FiO2 41 03/08/23 08:00 Oxygen Flow Rate (L/min) 1 Oxygen Delivery Method Room Air Weight: 55.4 kg Body Mass Index (BMI) 20.3 Intake & Output: Intake and Output for Last 24 Hours 03/15/23 03/16/23 03/17/23 23:59 23:59 23:59 Intake Total 3680.0 / 3680.0 2035.83 / 2035.83 575 / 575 Output Total 2550 / 2550 2600 / 2600 550 / 550 Balance 1130.0 / 1130.0 -564.17 / -564.17 Medical Nutrition Assessment Dietitian: Malnutrition Criteria Met Start: 03/07/23 10:37 Freq: Status: Active Protocol: Document 03/10/23 11:15 AG (Rec: 03/10/23 13:15 AG [id number]) Nutrition Malnutrition Evidence of Malnutrition Exists Yes Malnutrition (severe): Chronic Evidenced By Suboptimal Energy Intake ( Severe),Weight Loss (Severe) Intake Problem Inadequate Oral Intake Etiology related to difficulty swallowing Signs/Symptoms as evidenced by NPO Status Active Problem Clinical Problem Chronic Disease or Condition Related Malnutrition Etiology chronic, severe malnutrition related to inadequate oral intake d/t swallowing difficulty Signs/Symptoms as evidenced by unintentional 15.6% wt loss x 5 months; estimated PO intake meeting < 75% of estimated energy needs > 5 months Status Active Problem Recommendation Dietitian Recommendations/Changes 1.) Continue via PEG Vital HP at goal rate of 50mL/hour w/ 100mL H2O flush every 4 hours to provide 1200 calories, 105 g protein, and 1603mL fluid/ day. Advance from 20mL/hour by 10mL every 8-12 hours as tolerated until goal rate achieved. 2.) Pt is to remain NPO for now; APPLIANCE ADJUSTER working with pt for possible pleasure feeds as tolerated. Regular diet if/ when indicated. 3.) As TF tolerance established, will transition to bolus feedings for homegoing. Lab / Micro Data Result Diagrams: 03/17/23 06:05 03/17/23 06:05 Labs: Laboratory Results - last 24 hr 03/17/23 06:05: WBC 8.4, RBC 2.85 L, Hgb 7.8 L, Hct 27.8 L, MCV 97.5, MCH 27.4, MCHC 28.1 L, RDW Std Deviation 50.4 H, RDW Coeff of Lee 14.3, Plt Count 309, MPV 10.5, Immature Gran % (Auto) 0.700, Neut % (Auto) 73.6 H, Lymph % (Auto) 16.7 L, Hamilton % (Auto) 7.4, Eos % (Auto) 1.4, Baso % (Auto) 0.2, Absolute Neuts (auto) 6.2, Absolute Lymphs (auto) 1.41, Nucleated RBC % 0 03/17/23 06:05: Sodium 152 H, Potassium 4.1, Chloride 116 H, Carbon Dioxide 34.0 H, Anion Gap 2 L, BUN 57 H, Creatinine 1.72 H, Estim Creat Clear Calc 25.48, Est GFR (MDRD) Af Amer 37 L, Est GFR (MDRD) Non-Af 31 L, BUN/Creatinine Ratio 33.1 H , Glucose 113 H, Calcium 12.6 H* Micro: Microbiology 03/07/23 03:15 Blood Culture (Wb) - Anticubital Right Blood Culture - Final No growth in 5 days. 03/07/23 02:30 Blood Culture (Wb) - Anticubital Right Blood Culture - Final No growth in 5 days. 03/07/23 02:23 Nasal Secretion SARS-CoV-2 & FLU Antigen (Rapid) - Final Physical Exam Narrative General: Alert, oriented, no apparent distress HEENT: Atraumatic, normocephalic Eyes: Anicteric, normal conjunctiva, extraocular movements grossly intact Neck: Supple Respiratory: normal respiratory effort Cardiovascular: Regular rate GI: Soft, nontender, nondistended Extremities: No edema Musculoskeletal: Moving all extremities Neuro: No overt focal neurological deficits Skin: No rashes appreciated Psych: Cooperative Assessment & Plan Assessment/Plan (1) Bilateral pneumonia: (2) Acute respiratory failure with hypoxia: PLAN: Plan #Hypernatremia/hypercalcemia * sodium is down to 144 today * 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 Nephrology on board. Per nephro, she didnt respond to desmopressin in the past. * dc D5W today * nephro on board -03/16: Sodium trended up to 155 today and her free water in her tube feeds was increased to 350 mL every 4 hours. She continues to work with speech. Continue Cinacalcet. Discussed with nephrology, she is okay for discharge to TCU and they can continue to follow upon transfer. Discussed with patient and her -03/17: Free water flushes improved further, monitor BMP, nephrology adjusting free water flushes. Presently awaiting placement #Acute hypoxic resp failure 2/2 Aspiration pneumonia-resolved * on IV unasyn. now on 2L of oxygen by nasal canula * breathing treatment with bronchodilators * Titrate oxygen to maintain saturation above 90%. * completed a 7 day course of IV unasyn. -03/16: Resolved #Dysphagia: * Thought to be due to her esophageal stricture. She had EGD with dilatation of the esophageal stricture. * Speech therapy on board. She currently remains NPO. * Has an NG tube in place. On tube feeds * per GI note, GI discussed her bipolar with her psychiatrist; per her psychiatrist she had severe bipolar disorder with catatonia and that the only way to keep her from going into catatonia after undergoing extensive electroconvulsive therapy was to have her on high doses of ativan. Per GI, most of her enteric issues namely the esophageal dysphagia and gastroparesis are likely secondary to medication side effect. Due to risk of catatonia, will continue benzodiazepines at same doses. -03/16: Continue to work with speech therapy, receiving nutrition through PEG tube now #Chronic esophageal stricture: * seen by GI, and had dilatation done during this admission. * MRI of the brain is ordered per neurology did not show any evidence of stroke or any acute intracranial pathology. * for MRI of the brain as ordered by her neurologist to evaluate for neurological cause of the stricture. #Chronic severe protein calorie malnutrition: Nutrition on board. PEG tube in place for feeds. #Bipolar disorder: Lamictal, on ativan 2 mg 3 times daily #Dementia: On memantine #Hypothyroidism: On methimazole #Hyperammonemia: ammonia level had been mildly elevated at 40 and she was given lactulose with good response with bowel movements #Hypercalcemia: likely due to hyperparathyroidism. Will monitor. DVT prophylaxis: Lovenox subcu Total time spent on evaluation and management of patient, reviewing chart and specialist notes, discussing plan with patient, discussion with nursing and ancillary staff as well as documentation: 30 mins Disposition: awaiting placement to TCU, pending precert. Charges/Coding Visit Charges Inpatient E&M: 54772 Subs Hosp L2
--- NOTE | 2023-03-17 16:32 | PCM.PN.BLA ---
Assessment & Plan Assessment/Plan (1) CITLALY (acute kidney injury): (2) Stage 3b chronic kidney disease (CKD): (3) Hypercalcemia: (4) Acquired nephrogenic diabetes insipidus: PLAN: Plan Nephrology attending addendum. The patient seen and examined. I agree with QUARRY PLUG AND FEATHER DRILLER's progress note, assessment and plan. 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 Serum sodium is better with increased water flush with tube feed. We will recheck serum sodium again tomorrow. There has been some increase in serum creatinine over the past 2 days after stopping IV fluid. We will recheck renal function panel again tomorrow. If serum creatinine increases further, the patient may benefit from IV fluid boluses. We may also have to back off losartan if BP is borderline as well. Hypercalcemia has also worsened. Hypercalcemia is from primary hyperparathyroidism. Worsening of hypercalcemia may also be due to discontinuation of IV fluid infusion. Recheck calcium level tomorrow. If calcium level does not stabilize or continue to rise, I will adjust the dose of Sensipar accordingly. Aj Lucia MD
[2023-03-17 17:16] LABS: Iron 42 ug/dL (50-170); Iron Binding Capacity,Total 218 ug/dL (250-450); PERCENT IRON SATURATION 19.3 % (15.0-55.0)
[2023-03-17] MEDS: Vital High Protein 1,000 ML 50 ML GT (17:33)
[2023-03-17 17:52] VITALS: BP 108/73; PULSE 90; RESP 16; TEMP 37.1; O2SAT 97
[2023-03-18] MEDS: 0.9% Saline Lock 10 ML Syringe IV ×2 (00:05→05:42)
[2023-03-18] MEDS: Ondansetron 4 MG/2 ML Vial IV ×4 (00:05→17:16)
[2023-03-18 02:23] VITALS: BP 95/60; PULSE 72; RESP 18; TEMP 36.9; O2SAT 98
[2023-03-18 05:25] LABS: Absolute Lymphocyte Count 1.49 X10^3/uL (0.83-4.51); Absolute Neutrophil Count 5.2 X10^3/uL (2.0-7.7); Basophil# 0.02 X10^3/uL; Basophil% 0.3 % (0-1); Eosinophil# 0.12 X10^3/uL; Eosinophils% 1.6 % (0-5); Hematocrit 27.5 % (37-47); Hemoglobin 7.7 g/dL (12.0-15.0); Lymphocyte # 1.49 X10^3/ul (0.83-4.51); Lymphocyte % 20.1 % (19-41); Mean Corpuscular Hgb 27.3 pg (27.0-32.0); Mean Corpuscular Volume 97.5 fL (81-99); Mean Platelet Vol. 10.5 fl (6.2-12.0); Monocyte# 0.54 X10^3/uL; Monocyte% 7.3 % (0-10); NRBC Flagged by Analyzer 0 % (0-5); Neutrophil % 70.2 % (47-70); Platelet Count 323 K/mm3 (150-450); RBC Distribution Width CV 14.6 % (11.6-14.6); Red Blood Count 2.82 M/mm3 (4.2-5.4); White Blood Count 7.4 K/mm3 (4.4-11.0)
[2023-03-18 05:34] VITALS: BMI 20.5
[2023-03-18 05:56] LABS: Anion Gap 3 (5-15); BUN 66 mg/dL (7-18); BUN/Creat Ratio 36.1 RATIO (10-20); Calcium,Total 12.3 mg/dL (8.5-10.1); Chloride 114 mmol/L (98-107); Creatinine, Serum 1.83 mg/dL (0.55-1.02); EST Glomerular Filtration Rate 29 mL/min (>60); Est Glom Filt Rate - Afr Amer 35 mL/min (>60); Estimated Creatinine Clearance 24.12 ml/min; Ferritin 207 ng/mL (8-252); Glucose 120 mg/dL (74-106); Potassium 3.8 mmol/L (3.5-5.1); Sodium Level 151 mmol/L (136-145)
[2023-03-18 07:33] VITALS: BP 144/88; PULSE 87; RESP 14; TEMP 36.9; O2SAT 93
[2023-03-18] MEDS: lamoTRIgine 100 MG Tablet 200 MG GT (07:46)
[2023-03-18] MEDS: methIMAzole 10 MG TABLET 5 MG PO (07:46)
[2023-03-18] MEDS: Tolterodine Tartrate 4 MG CAP.SA PO (07:47)
[2023-03-18] MEDS: miSOPROStol 200 MCG Tablet GT ×4 (07:47→21:31)
[2023-03-18] MEDS: Losartan Potassium 25 MG Tablet GT (07:47)
[2023-03-18] MEDS: Cinacalcet HCl 30 MG Tablet PO (07:47)
[2023-03-18] MEDS: Lactulose 20 GM/30 ML UDC GT ×2 (07:47→21:31)
[2023-03-18] MEDS: Memantine Hydrochloride 10 MG Tablet GT (07:48)
[2023-03-18] MEDS: Heparin Injection (Vial) 5,000 UNIT/ML VIAL 5000 UNIT SC ×2 (07:57→21:33)
[2023-03-18] MEDS: LORazepam 1 MG Tablet 2 MG GT ×3 (07:57→21:43)
[2023-03-18 08:10] VITALS: O2SAT 93
--- NOTE | 2023-03-18 09:53 | PCM.PN.REN ---
Subjective Subjective Following for CITLALY on CKD, hypernatremia, and hypercalcemia. The patient denies chest pain, shortness of breath, or nausea. She has loose bowel movement although she is on lactulose. There is no interruptions of tube feed per my discussion with RN. Objective Data Objective Data Vital Signs: Vital Signs Temp Pulse Resp BP Pulse Ox O2 Del Method O2 Flow Rate 98.4 F 87 14 144/88 H 93 Room Air 1 03/18/23 07:33 03/18/23 07:33 03/18/23 07:33 03/18/23 07:33 03/18/23 08:10 03/18/23 08:10 03/17/23 09:31 FiO2 41 03/08/23 08:00 Oxygen Flow Rate (L/min) 1 Oxygen Delivery Method Room Air Weight: 55.8 kg Body Mass Index (BMI) 20.5 Intake & Output: Intake and Output for Last 24 Hours 03/16/23 03/17/23 03/18/23 23:59 23:59 23:59 Intake Total 2035.83 / 2035.83 2473.33 / 2473.33 400 / 400 Output Total 2600 / 2600 550 / 550 400 / 400 Balance -564.17 / -564.17 1923.33 / 1923.33 0 / 0 Medical Nutrition Assessment Dietitian: Malnutrition Criteria Met Start: 03/07/23 10:37 Freq: Status: Active Protocol: Document 03/10/23 11:15 AG (Rec: 03/10/23 13:15 [id number]) Nutrition Malnutrition Evidence of Malnutrition Exists Yes Malnutrition (severe): Chronic Evidenced By Suboptimal Energy Intake ( Severe),Weight Loss (Severe) Intake Problem Inadequate Oral Intake Etiology related to difficulty swallowing Signs/Symptoms as evidenced by NPO Status Active Problem Clinical Problem Chronic Disease or Condition Related Malnutrition Etiology chronic, severe malnutrition related to inadequate oral intake d/t swallowing difficulty Signs/Symptoms as evidenced by unintentional 15.6% wt loss x 5 months; estimated PO intake meeting < 75% of estimated energy needs > 5 months Status Active Problem Recommendation Dietitian Recommendations/Changes 1.) Continue via PEG Vital HP at goal rate of 50mL/hour w/ 100mL H2O flush every 4 hours to provide 1200 calories, 105 g protein, and 1603mL fluid/ day. Advance from 20mL/hour by 10mL every 8-12 hours as tolerated until goal rate achieved. 2.) Pt is to remain NPO for now; BOAT PATCHER PLASTIC working with pt for possible pleasure feeds as tolerated. Regular diet if/ when indicated. 3.) As TF tolerance established, will transition to bolus feedings for homegoing. Lab / Micro Data Result Diagrams: 03/18/23 04:53 03/18/23 04:53 Labs: Laboratory Results - last 24 hr 03/17/23 06:05: Iron 42 L, TIBC 218 L, Iron Saturation 19.3 03/18/23 04:53: Sodium 151 H, Potassium 3.8, Chloride 114 H, Carbon Dioxide 34.0 H, Anion Gap 3 L, BUN 66 H, Creatinine 1.83 H, Estim Creat Clear Calc 24.12, Est GFR (MDRD) Af Amer 35 L, Est GFR (MDRD) Non-Af 29 L, BUN/Creatinine Ratio 36.1 H, Glucose 120 H, Calcium 12.3 H, Ferritin 207 03/18/23 04:53: WBC 7.4, RBC 2.82 L, Hgb 7.7 L, Hct 27.5 L, MCV 97.5, MCH 27.3, MCHC 28.0 L, RDW Std Deviation 52.0 H, RDW Coeff of Lee 14.6, Plt Count 323, MPV 10.5, Immature Gran % (Auto) 0.500, Neut % (Auto) 70.2 H, Lymph % (Auto) 20.1, Morgan % (Auto) 7.3, Eos % (Auto) 1.6, Baso % (Auto) 0.3, Absolute Neuts (auto) 5.2, Absolute Lymphs (auto) 1.49, Nucleated RBC % 0 Micro: Microbiology 03/07/23 03:15 Blood Culture (Wb) - Anticubital Right Blood Culture - Final No growth in 5 days. 03/07/23 02:30 Blood Culture (Wb) - Anticubital Right Blood Culture - Final No growth in 5 days. 03/07/23 02:23 Nasal Secretion SARS-CoV-2 & FLU Antigen (Rapid) - Final Physical Exam Narrative Alert awake oriented x 3, no apparent distress Normal s1s2, no murmurs lungs clear anteriorly and posteriorly abdomen soft, nontender, positive bowel sounds no edema Assessment & Plan Assessment/Plan (1) CITLALY (acute kidney injury): (2) Stage 3b chronic kidney disease (CKD): (3) Hypercalcemia: (4) Acquired nephrogenic diabetes insipidus: PLAN: Plan Impression/Plan: The patient is a 72-year-old woman with past history of CKD stage G3b, primary hyperparathyroidism with chronic hypercalcemia, and 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 Patient was admitted to the hospital on 03/07/2023 with aspiration pneumonia.? Nephrology is following for CITLALY on CKD, hypernatremia, and hypercalcemia. CITLALY on CKD stage G3b. 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 The patient is followed in the office by my partner, Dr. Abrams. Baseline serum creatinine has been around 1.7 to 1.8 mg/dL. CITLALY is due to volume depletion.? So far, serum creatinine had peaked at 2.29 mg/dL on presentation (03/07/2023). Renal function was improving with volume expansion.? Serum creatinine was down to 1.43 mg/dL on 03/15/2023. However, serum creatinine has increased to 1.83 mg/dL today after stopping IV fluid on 03/15/2023. We will give 1 L bolus of normal saline today. Continue tube feed. Recheck renal function again tomorrow. Hypernatremia. Serum sodium has been as high as 157 mmol/L on 03/09/2023.? Hypernatremia is due to nephrogenic DI. The patient has been tolerating tube feed.? Therefore, I stopped D5W infusion on 03/15/2023. Since stopping D5W, serum sodium did go up to 155 mmol/L on 03/16/2023. We have increased water flush and tube feed to 350 mL every 4 hours. Serum sodium is better today at 151 mmol/L. We will continue current water flush with tube feed. Recheck serum sodium tomorrow. Hypercalcemia. The patient has a history of primary hyperparathyroidism. She is on cinacalcet.? So far this admission, the patient's calcium peaked at 12.6 mg/dL on 03/17/2023. Recent rise in serum calcium may be due to discontinuation of IV fluid. Calcium is a bit better today at 12.3 but still high. Therefore, I will increase cinacalcet to 60 mg 4 times per week.
[2023-03-18] MEDS: 0.9% Normal Saline 1,000 ML 125 ML IV ×2 (10:39→18:56)
[2023-03-18 14:42] VITALS: BP 121/74; PULSE 82; RESP 16; TEMP 36.6; O2SAT 95
[2023-03-18] MEDS: Vital High Protein 1,000 ML 50 ML GT (14:45)
--- NOTE | 2023-03-18 16:15 | PN.HOSP_ITS ---
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) Hypoxemia (03/07/23) Subjective Subjective Feeling about the same today, no acute complaints Objective Data Objective Data Vital Signs: Vital Signs Temp Pulse Resp BP Pulse Ox O2 Del Method O2 Flow Rate 98 F 82 16 121/74 H 95 Room Air 1 03/18/23 14:42 03/18/23 14:42 03/18/23 14:42 03/18/23 14:42 03/18/23 14:42 03/18/23 14:42 03/17/23 09:31 FiO2 41 03/08/23 08:00 Oxygen Flow Rate (L/min) 1 Oxygen Delivery Method Room Air Weight: 55.8 kg Body Mass Index (BMI) 20.5 Intake & Output: Intake and Output for Last 24 Hours 03/16/23 03/17/23 03/18/23 23:59 23:59 23:59 Intake Total 2035.83 / 2035.83 2473.33 / 2473.33 5045 / 5045 Output Total 2600 / 2600 550 / 550 1225 / 1225 Balance -564.17 / -564.17 1923.33 / 1923.33 3820 / 3820 Medical Nutrition Assessment Dietitian: Malnutrition Criteria Met Start: 03/07/23 10:37 Freq: Status: Active Protocol: Document 03/10/23 11:15 AG (Rec: 03/10/23 13:15 AG [id number]) Nutrition Malnutrition Evidence of Malnutrition Exists Yes Malnutrition (severe): Chronic Evidenced By Suboptimal Energy Intake ( Severe),Weight Loss (Severe) Intake Problem Inadequate Oral Intake Etiology related to difficulty swallowing Signs/Symptoms as evidenced by NPO Status Active Problem Clinical Problem Chronic Disease or Condition Related Malnutrition Etiology chronic, severe malnutrition related to inadequate oral intake d/t swallowing difficulty Signs/Symptoms as evidenced by unintentional 15.6% wt loss x 5 months; estimated PO intake meeting < 75% of estimated energy needs > 5 months Status Active Problem Recommendation Dietitian Recommendations/Changes 1.) Continue via PEG Vital HP at goal rate of 50mL/hour w/ 100mL H2O flush every 4 hours to provide 1200 calories, 105 g protein, and 1603mL fluid/ day. Advance from 20mL/hour by 10mL every 8-12 hours as tolerated until goal rate achieved. 2.) Pt is to remain NPO for now; FREIGHT FORWARDER working with pt for possible pleasure feeds as tolerated. Regular diet if/ when indicated. 3.) As TF tolerance established, will transition to bolus feedings for homegoing. Lab / Micro Data Result Diagrams: 03/18/23 04:53 03/18/23 04:53 Labs: Laboratory Results - last 24 hr 03/17/23 06:05: Iron 42 L, TIBC 218 L, Iron Saturation 19.3 03/18/23 04:53: Sodium 151 H, Potassium 3.8, Chloride 114 H, Carbon Dioxide 34.0 H, Anion Gap 3 L, BUN 66 H, Creatinine 1.83 H, Estim Creat Clear Calc 24.12, Est GFR (MDRD) Af Amer 35 L, Est GFR (MDRD) Non-Af 29 L, BUN/Creatinine Ratio 36.1 H , Glucose 120 H, Calcium 12.3 H, Ferritin 207 03/18/23 04:53: WBC 7.4, RBC 2.82 L, Hgb 7.7 L, Hct 27.5 L, MCV 97.5, MCH 27.3, MCHC 28.0 L, RDW Std Deviation 52.0 H, RDW Coeff of Lee 14.6, Plt Count 323, MPV 10.5, Immature Gran % (Auto) 0.500, Neut % (Auto) 70.2 H, Lymph % (Auto) 20.1, Brewster % (Auto) 7.3, Eos % (Auto) 1.6, Baso % (Auto) 0.3, Absolute Neuts (auto) 5.2, Absolute Lymphs (auto) 1.49, Nucleated RBC % 0 Micro: Microbiology 03/07/23 03:15 Blood Culture (Wb) - Anticubital Right Blood Culture - Final No growth in 5 days. 03/07/23 02:30 Blood Culture (Wb) - Anticubital Right Blood Culture - Final No growth in 5 days. 03/07/23 02:23 Nasal Secretion SARS-CoV-2 & FLU Antigen (Rapid) - Final Physical Exam Narrative General: Alert, oriented, no apparent distress HEENT: Atraumatic, normocephalic Eyes: Anicteric, normal conjunctiva, extraocular movements grossly intact Neck: Supple Respiratory: normal respiratory effort Cardiovascular: Regular rate GI: Soft, nontender, nondistended Extremities: No edema Musculoskeletal: Moving all extremities Neuro: No overt focal neurological deficits Skin: No rashes appreciated Psych: Cooperative Assessment & Plan Assessment/Plan (1) Bilateral pneumonia: (2) Acute respiratory failure with hypoxia: PLAN: Plan #Hypernatremia/hypercalcemia * sodium is down to 144 today * 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 Nephrology on board. Per nephro, she didnt respond to desmopressin in the past. * dc D5W today * nephro on board -03/16: Sodium trended up to 155 today and her free water in her tube feeds was increased to 350 mL every 4 hours. She continues to work with speech. Continue Cinacalcet. Discussed with nephrology, she is okay for discharge to TCU and they can continue to follow upon transfer. Discussed with patient and her -03/17: Free water flushes improved further, monitor BMP, nephrology adjusting free water flushes. Presently awaiting placement -03/18: Improving with 400 mL every 4 free water flushes, Sensipar increased and also given fluids by nephrology #Acute hypoxic resp failure 2/2 Aspiration pneumonia-resolved * on IV unasyn. now on 2L of oxygen by nasal canula * breathing treatment with bronchodilators * Titrate oxygen to maintain saturation above 90%. * completed a 7 day course of IV unasyn. -03/16: Resolved #Dysphagia: * Thought to be due to her esophageal stricture. She had EGD with dilatation of the esophageal stricture. * Speech therapy on board. She currently remains NPO. * Has an NG tube in place. On tube feeds * per GI note, GI discussed her bipolar with her psychiatrist; per her psychiatrist she had severe bipolar disorder with catatonia and that the only way to keep her from going into catatonia after undergoing extensive electroconvulsive therapy was to have her on high doses of ativan. Per GI, most of her enteric issues namely the esophageal dysphagia and gastroparesis are likely secondary to medication side effect. Due to risk of catatonia, will continue benzodiazepines at same doses. -03/16: Continue to work with speech therapy, receiving nutrition through PEG tube now #Chronic esophageal stricture: * seen by GI, and had dilatation done during this admission. * MRI of the brain is ordered per neurology did not show any evidence of stroke or any acute intracranial pathology. * for MRI of the brain as ordered by her neurologist to evaluate for neurological cause of the stricture. #Normocytic anemia -Has been low since late 2021 -Iron studies ordered and reviewed, discussed with GI and nephrology, will give dose of IV iron #Chronic severe protein calorie malnutrition: Nutrition on board. PEG tube in place for feeds. #Bipolar disorder: Lamictal, on ativan 2 mg 3 times daily #Dementia: On memantine #Hypothyroidism: On methimazole #Hyperammonemia: ammonia level had been mildly elevated at 40 and she was given lactulose with good response with bowel movements #Hypercalcemia: likely due to hyperparathyroidism. Will monitor. Sensipar increased DVT prophylaxis: Lovenox subcu Total time spent on evaluation and management of patient, reviewing chart and specialist notes, discussing plan with patient, discussion with nursing and ancillary staff as well as documentation: 30 mins Disposition: awaiting placement to TCU, pending precert. Charges/Coding Visit Charges Inpatient E&M: 32730 Subs Hosp L2
--- NOTE | 2023-03-18 19:11 | CASEMGMT ---
Social Work Note [place] received a call from TCU admission staff, Ani Franco regarding patient, explaining patient's insurance denied SNF placement. Ani reports peer to peer can be completed to further evaluate. Peer to peer, [phone], needs to be completed by 03/19/2023 before 12pm. [place] informed MD Saavedra via Backline and updated riverboat master Amanda. Plan: GISELL Botello EDUCATIONAL RECRUITER, GARRISON
[2023-03-18 22:00] VITALS: BP 128/80; PULSE 83; RESP 16; TEMP 36.7; O2SAT 92
[2023-03-18 22:51] VITALS: O2SAT 91
[2023-03-19] MEDS: Ondansetron 4 MG/2 ML Vial IV ×3 (00:03→11:32)
[2023-03-19] MEDS: 0.9% Normal Saline 1,000 ML 125 ML IV ×2 (03:19→11:22)
[2023-03-19 04:13] VITALS: BP 110/71; PULSE 80; RESP 18; TEMP 36.4; O2SAT 92
[2023-03-19 06:00] VITALS: BMI 20.3
[2023-03-19 06:30] LABS: Absolute Neutrophil Count 4.7 X10^3/uL (2.0-7.7); Basophil# 0.03 X10^3/uL; Basophil% 0.4 % (0-1); Eosinophils% 1.5 % (0-5); Hematocrit 24.9 % (37-47); Hemoglobin 7.1 g/dL (12.0-15.0); Lymphocyte % 19.1 % (19-41); Mean Corp Hgb Conc 28.5 g/dL (32-36); Mean Platelet Vol. 10.6 fl (6.2-12.0); Monocyte# 0.59 X10^3/uL; Monocyte% 8.7 % (0-10); NRBC Flagged by Analyzer 0 % (0-5); Neutrophil # 4.74 X10^3/uL (2.7-7.7); Neutrophil % 69.7 % (47-70); Platelet Count 343 K/mm3 (150-450); RBC Distribution Width CV 14.5 % (11.6-14.6); RBC Distribution Width SD 51.5 fl (35.1-43.9); Red Blood Count 2.54 M/mm3 (4.2-5.4); White Blood Count 6.8 K/mm3 (4.4-11.0)
[2023-03-19 07:08] LABS: Anion Gap 4 (5-15); BUN 56 mg/dL (7-18); BUN/Creat Ratio 34.1 RATIO (10-20); Calcium,Total 10.9 mg/dL (8.5-10.1); Chloride 114 mmol/L (98-107); Creatinine, Serum 1.64 mg/dL (0.55-1.02); EST Glomerular Filtration Rate 33 mL/min (>60); Est Glom Filt Rate - Afr Amer 39 mL/min (>60); Estimated Creatinine Clearance 26.72 ml/min; Glucose 97 mg/dL (74-106); Potassium 3.8 mmol/L (3.5-5.1); Sodium Level 149 mmol/L (136-145)
[2023-03-19 08:31] VITALS: BP 129/81; PULSE 81; RESP 15; TEMP 36.3; O2SAT 93
[2023-03-19] MEDS: miSOPROStol 200 MCG Tablet GT ×3 (08:34→17:17)
[2023-03-19] MEDS: Heparin Injection (Vial) 5,000 UNIT/ML VIAL 5000 UNIT SC (08:35)
[2023-03-19] MEDS: Memantine Hydrochloride 10 MG Tablet GT (08:35)
[2023-03-19] MEDS: Losartan Potassium 25 MG Tablet GT (08:35)
[2023-03-19] MEDS: Tolterodine Tartrate 4 MG CAP.SA PO (08:35)
[2023-03-19] MEDS: lamoTRIgine 100 MG Tablet 200 MG GT (08:35)
[2023-03-19] MEDS: Lactulose 20 GM/30 ML UDC GT (08:36)
[2023-03-19] MEDS: LORazepam 1 MG Tablet 2 MG GT ×2 (08:40→13:23)
[2023-03-19 08:52] VITALS: O2SAT 93
--- NOTE | 2023-03-19 09:44 | CASEMGMT ---
Patient was denied by insurance to go to TCU. Physician agreed to peer to peer. SW called and scheduled peer to peer. Tyra JI
--- NOTE | 2023-03-19 10:10 | CASEMGMT ---
Physician notified [place] that patient was approved. SW notified Ani in TCU. Ani will wait to hear from Zeb. Plan: d/c to [facility] TCU under skilled level of care. Tyra JI
[2023-03-19] MEDS: Vital High Protein 1,000 ML 50 ML GT (11:29)
--- NOTE | 2023-03-19 13:36 | PN.RENAL_ITS ---
Subjective Subjective Sitting in chair. at bedside. No overnight events. Objective Data Objective Data Vital Signs: Vital Signs Temp Pulse Resp BP Pulse Ox O2 Del Method O2 Flow Rate 97.4 F L 81 15 129/81 H 93 Room Air 1 03/19/23 08:31 03/19/23 08:31 03/19/23 08:31 03/19/23 08:31 03/19/23 08:52 03/19/23 08:52 03/17/23 09:31 FiO2 41 03/08/23 08:00 Oxygen Flow Rate (L/min) 1 Oxygen Delivery Method Room Air Weight: 55.4 kg Body Mass Index (BMI) 20.3 Intake & Output: Intake and Output for Last 24 Hours 03/17/23 03/18/23 03/19/23 23:59 23:59 23:59 Intake Total 2473.33 / 2473.33 7335 / 7335 4557.50 / 4557.50 Output Total 550 / 550 1825 / 1825 650 / 650 Balance 1923.33 / 1923.33 5510 / 5510 3907.50 / 3907.50 Medical Nutrition Assessment Dietitian: Malnutrition Criteria Met Start: 03/07/23 10:37 Freq: Status: Active Protocol: Document 03/19/23 10:57 AG (Rec: 03/19/23 10:57 AG [id number]) Nutrition Malnutrition Evidence of Malnutrition Exists Yes Malnutrition (severe): Chronic Evidenced By Suboptimal Energy Intake ( Severe),Weight Loss (Severe) Intake Problem Inadequate Oral Intake Etiology related to difficulty swallowing Signs/Symptoms as evidenced by NPO Status Active Problem Clinical Problem Chronic Disease or Condition Related Malnutrition Etiology chronic, severe malnutrition related to inadequate oral intake d/t swallowing difficulty Signs/Symptoms as evidenced by unintentional 15.6% wt loss x 5 months; estimated PO intake meeting < 75% of estimated energy needs > 5 months Status Active Problem Recommendation Dietitian Recommendations/Changes 1.) Via PEG- Vital HP at 50mL/ hour w/ 400mL H2O flush every 4 hours to provide 1200 calories, 105 g protein, and 3403mL total fluid/day. 2.) Regular-Pureed/Thin (moist purees for pleasure only) per CONTACT CENTER PROFESSIONAL. 3.) As TF tolerance established, will transition to bolus feedings/home enteral formula as appropriate prior to discharge. Lab / Micro Data Result Diagrams: 03/19/23 05:20 03/19/23 05:20 Labs: Laboratory Results - last 24 hr 03/19/23 05:20: WBC 6.8, RBC 2.54 L, Hgb 7.1 L, Hct 24.9 L, MCV 98.0, MCH 28.0, MCHC 28.5 L, RDW Std Deviation 51.5 H, RDW Coeff of Lee 14.5, Plt Count 343, MPV 10.6, Immature Gran % (Auto) 0.600, Neut % (Auto) 69.7, Lymph % (Auto) 19.1, [place] % (Auto) 8.7, Eos % (Auto) 1.5, Baso % (Auto) 0.4, Absolute Neuts (auto) 4.7, Absolute Lymphs (auto) 1.30, Nucleated RBC % 0 03/19/23 05:20: Sodium 149 H, Potassium 3.8, Chloride 114 H, Carbon Dioxide 31.0, Anion Gap 4 L, BUN 56 H, Creatinine 1.64 H, Estim Creat Clear Calc 26.72, Est GFR (MDRD) Af Amer 39 L, Est GFR (MDRD) Non-Af 33 L, BUN/Creatinine Ratio 34.1 H, Glucose 97, Calcium 10.9 H Micro: Microbiology 03/07/23 03:15 Blood Culture (Wb) - Anticubital Right Blood Culture - Final No growth in 5 days. 03/07/23 02:30 Blood Culture (Wb) - Anticubital Right Blood Culture - Final No growth in 5 days. 03/07/23 02:23 Nasal Secretion SARS-CoV-2 & FLU Antigen (Rapid) - Final Physical Exam Narrative Alert awake oriented x 3, no apparent distress Normal s1s2, no murmurs lungs clear anteriorly and posteriorly abdomen soft, nontender, positive bowel sounds, peg intact no edema Assessment & Plan Assessment/Plan (1) CITLALY (acute kidney injury): (2) Stage 3b chronic kidney disease (CKD): (3) Hypercalcemia: (4) Acquired nephrogenic diabetes insipidus: PLAN: Plan Impression/Plan: The patient is a 72-year-old woman with past history of CKD stage G3b, primary hyperparathyroidism with chronic hypercalcemia, and 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 Patient was admitted to the hospital on 03/07/2023 with aspiration pneumonia.? Nephrology is following for CITLALY on CKD, hypernatremia, and hypercalcemia. CITLALY on CKD stage G3b. 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 The patient is followed in the office by Dr. Abrams. Baseline serum creatinine has been around 1.7 to 1.8 mg/dL. Nonoliguric, mildly hypovolemic CITLALY secondary to volume depletion.? Creatinine peaked at 2.29 mg/dL on presentation (03/07/2023). Renal function improved with volume expansion.? Currently creatinine 1.64 mg/dL today. We will stop IV fluids. Discussed with patient's who is at bedside. 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 The patient has been tolerating tube feeds.? Serum sodium is better today at 149 mmol/L. Continue current water flush 400ml every 4 hours. Patient is also able to take thin liquids, supervised. Hypercalcemia. The patient has a history of primary hyperparathyroidism. Recent rise in serum calcium (peaked 12.6 on 03/17) may be due to discontinuation of IV fluid, improved with IV fluids. Calcium 10.9 today. Continue cinacalcet 60 mg 4 times per week. Disposition; patient is being transferred to TCU.
--- NOTE | 2023-03-19 14:43 | CASEMGMT ---
Patient can go to TCU as soon as orders are complete. Await orders. Tyra JI
[2023-03-19 14:44] VITALS: BP 127/82; PULSE 87; RESP 14; TEMP 36.3; O2SAT 97
--- NOTE | 2023-03-19 16:49 | TREXTCAR_ITS ---
Diet Diet Order/Speech Therapy: 03/16/23 13:08 Diet: Regular - General Food consistency:: Pureed Liquid Consistency:: Regular/Thin Is pt able to select menu?: No Diet Comments: MOIST puree, alt bites/sips 1:2, STOP IF S/S OF FULLNESS, REFLUX, OR NAUSEA Tube Feed: Vital high protein GT 50mls/hr 400 mL H2O flush every 4 hours per nephrolog Routine Orders/Code Status Suppository Type: Dulcolax 10mg Suppository Frequency: Daily PRN Routine Lab Work: BMP (2-3 days) Code Status: Full Code Therapies Physical Therapy: Eval and Treat Occupational Therapy: Eval and Treat Speech Therapy: Eval and Treat Problem/Diagnosis (1) CITLALY (acute kidney injury): Status: Acute Code(s): N17.9 - Acute kidney failure, unspecified (2) Stage 3b chronic kidney disease (CKD): Status: Acute Code(s): N18.32 - Chronic kidney disease, stage 3b (3) Hypercalcemia: Status: Acute Code(s): E83.52 - Hypercalcemia (4) Acquired nephrogenic diabetes insipidus: Status: Suspected Code(s): N25.1 - Nephrogenic diabetes insipidus Comment: from lithium Plan Patient is a 72-year-old female with a history of bipolar disorder, diabetes insipidus secondary to history of lithium use, gastroparesis, CKD stage IIIb, hyperparathyroidism and hypercalcemia, erosive esophagitis, PE, dysphagia with PEG tube placement who presented 03/07/2023 with increasing shortness of breath. She had had EGD and PEG tube placement on 03/05 and was discharged on 03/06 but returned to the next night with shortness of breath. She had gone home and vomited and was brought in with hypoxia and sepsis secondary to aspiration pneumonia. She completed a 7-day course of Unasyn and respiratory status improved. She was seen by GI during her admission and had an esophageal dilation but continued to have dysphagia and required PEG nutrition. Nephrology followed for her hypernatremia and hypercalcemia which were available when initially increased after her D5 was discontinued and she was placed on tube feeds with free water flushes, these were titrated up patient has had improvement. On day of discharge she reports feeling fairly well with no acute complaints. #Hypernatremia 2/2 diabetes insipidus #hypercalcemia #Acute hypoxic resp failure 2/2 Aspiration pneumonia-resolved #Dysphagia: #Chronic esophageal stricture: #Normocytic anemia #Chronic severe protein calorie malnutrition #Bipolar disorder #Dementia #Hypothyroidism #Hyperammonemia- on lactulose Allergies/Procedures Done in Hospital Allergies No Known Allergies Allergy (Verified 03/04/23 09:26) Type of Care/Length of Stay Estimated LOS: Convalescent Care Less Than 30 days Type of Care Needed: Skilled Rehab Potential: Fair Prognosis: Fair Additional Orders/Day of Discharge Day of Discharge: 03/19/23 Dietary and Speech Recommendations Dietitian Recommendations/Changes: 1.) Via PEG- Vital HP at 50mL/hour w/ 400mL H2O flush every 4 hours to provide 1200 calories, 105 g protein, and 3403mL total fluid/day. 2.) Regular-Pureed/Thin (moist purees for pleasure only) per EAP COUNSELOR. 3.) As TF tolerance established, will transition to bolus feedings/home enteral formula as appropriate prior to discharge. Discharge Plan Admission Admit Date/Time: 03/07/23 04:40 Primary Reason for Your Visit: Shortness of breath Attending Provider: Anabela Saavedra Primary Care Provider: Jay Kincaid ALTITUDE CHAMBER TECHNICIAN Consulting Providers: Hira Castillo ; Edinson Rivers ; Francis Verma ; Lenard Nicole ; Ayse Abrams ; Roz Amador Instructions Patient Instructions: ED Fall Prevention Additional Instructions / Restrictions: -You will need to follow-up with Dr. Verma with GI in his office upon discharge. Please call his office to schedule your hospital follow-up appointment (ph. [phone]) -Please follow-up with nephrology upon discharge -Recommend BMP and calcium in 2 to 3 days to monitor sodium and calcium levels Discharge Orders/Prescriptions Prescriptions: New misoprostol 200 mcg Tablet 200 mcg G-tube 4X/DAYCM Qty: 0 0RF lactulose 20 gram/30 mL Solution 20 g G-tube BID 30 Days Qty: 0 0RF lansoprazole 30 mg tablet,disintegrat, delay rel 30 mg feeding tube BID 30 Days Qty: 60 0RF Continued methimazole 5 MG tablet 5 mg PO SUMOWEFR oxybutynin chloride 15 mg tablet extended release 24hr 15 mg PO DAILY Label Comments: take 1 tablet by mouth every morning polyethylene glycol 3350 [Miralax] 17 gram/dose Powder 17 g PO DAILY Prolia 60 mg/mL Syringe 60 mg SUBCUT .Q6MO ferrous sulfate 325 MG tablet 325 mg PO QODAY Qty: 30 0RF sucralfate 100 mg/mL suspension 10 ml PO QACHS ondansetron HCl 4 mg tablet 4 mg PO Q6H PRN (Reason: nausea and vomiting) Qty: 30 0RF Changed losartan 25 mg tablet 25 mg feeding tube DAILY Qty: 90 0RF lamotrigine 100 mg tablet 200 mg feeding tube DAILY 30 Days Qty: 0 0RF Label Comments: take 1 tablet by mouth once daily for 2 WEEKS then INCREASE to 1 ... (REFER TO PRESCRIPTION NOTES). memantine 10 MG tablet 10 mg feeding tube DAILY 30 Days Qty: 0 0RF cinacalcet 30 MG tablet 60 mg PO SUMOWEFR 30 Days Qty: 0 0RF lorazepam 2 mg tablet 2 mg feeding tube TID PRN (Reason: AGITATION) 3 Days Qty: 6 0RF Discontinued pantoprazole 40 mg tablet,delayed release (DR/EC) 40 mg PO BID Label Comments: take 1 tablet by mouth twice a day Osmolite 1.2 Mp 0.06 gram-1.2 kcal/mL Liquid 120 ml G-tube 5X/DAY Qty: 0 0RF Referrals / Follow Up: Ayse Abrams MD [Med Staff - Consulting] - See Referral Note (Please follow-up with Dr. Abrams upon discharge. Please call their office to schedule hospital follow-up appointment upon discharge.) Francis Verma DO [Med Staff - Active Staff] - See Referral Note (You will need to follow-up with Dr. Verma with GI in his office upon discharge. Please call his office to schedule your hospital follow-up appointment (ph. [phone])) Jay Kincaid ALTITUDE CHAMBER TECHNICIAN, ALTITUDE CHAMBER TECHNICIAN-C [Primary Care Provider] - Within 1 Week Disposition Disposition (needs filled in before D/C Order can be placed): Care Home Facility
--- NOTE | 2023-03-19 16:54 | PCM.DC.SUM ---
Providers Date of Admission: 03/07/23 Date of Discharge: 03/19/23 Primary Care Physician: Jay Kincaid, COMMERCIAL FISHING VESSEL OPERATOR-C Consultations 03/07/23 05:38 Consult: Gastroenterology Routine Consulting Provider: Francis Verma Reason for Consult: Recent PEG tube placement EMERGENT Consult: No Notified: Yes Date Notified: 03/07/23 Time Notified: 05:27 Method of Notification: Text Consult: Construction Project Assistant / Pulmonary Medicine Routine Consulting Provider: Lenard Nicole Reason for Consult: Sepsis secondary to pneumonia EMERGENT Consult: No Notified: Yes Date Notified: 03/07/23 Time Notified: 04:59 Method of Notification: Text 03/12/23 07:43 Consult: Nephrology Routine Consulting Provider: Ayse Abrams Reason for Consult: hypernatremia EMERGENT Consult: No Notified: Yes Date Notified: 03/12/23 Time Notified: 07:43 Method of Notification: Text Reason For Visit: SEPSIS SECONDARY TO ASPIRATION PNEUMONIA Diagnosis Discharge Diagnosis (1) CITLALY (acute kidney injury): Status: Acute Code(s): N17.9 - Acute kidney failure, unspecified (2) Stage 3b chronic kidney disease (CKD): Status: Acute Code(s): N18.32 - Chronic kidney disease, stage 3b (3) Hypercalcemia: Status: Acute Code(s): E83.52 - Hypercalcemia (4) Acquired nephrogenic diabetes insipidus: Status: Suspected Code(s): N25.1 - Nephrogenic diabetes insipidus Plan #Hypernatremia 2/2 diabetes insipidus #hypercalcemia #Acute hypoxic resp failure 2/2 Aspiration pneumonia-resolved #Dysphagia: #Chronic esophageal stricture: #Normocytic anemia #Chronic severe protein calorie malnutrition #Bipolar disorder #Dementia #Hypothyroidism #Hyperammonemia- on lactulose Medications at Discharge Home Medications methimazole 5 mg tablet 5 mg PO SUMOWEFR Thyroid 10/04/20 denosumab 60 mg/mL subcutaneous syringe (Prolia) 60 mg subcut .Q6MO osteoporosis 09/05/22 oxybutynin chloride 15 mg tablet,extended release 24 hr 15 mg PO DAILY Overactive bladder 09/05/22 polyethylene glycol 3350 17 gram/dose oral powder (Miralax) 17 g PO DAILY LAXATIVE 09/05/22 ferrous sulfate 325 mg (65 mg iron) tablet 325 mg PO QODAY SUPPLEMENT #30 tabs 12/24/22 sucralfate 100 mg/mL oral suspension 10 ml PO QACHS GERD 01/30/23 ondansetron HCl 4 mg tablet 4 mg PO Q6H PRN nausea and vomiting #30 tabs 03/06/23 cinacalcet 30 mg tablet 60 mg PO SUMOWEFR THYROID 30 days #0 tabs 03/19/23 lactulose 20 gram/30 mL oral solution 20 g G-tube BID Check with primary doctor 03/19/23 lamotrigine 100 mg tablet 200 mg feeding tube DAILY Bipolar Disorder 03/19/23 lansoprazole 30 mg delayed release,disintegrating tablet 30 mg feeding tube BID GERD 03/19/23 lorazepam 2 mg tablet 2 mg feeding tube TID PRN AGITATION 3 days #6 tabs 03/19/23 losartan 25 mg tablet 25 mg feeding tube DAILY BP 03/19/23 memantine 10 mg tablet 10 mg feeding tube DAILY Check with primary doctor 30 days #0 tabs 03/19/23 misoprostol 200 mcg tablet 200 mcg G-tube 4X/DAYCM Check with primary doctor 03/19/23 Hospital Course Procedures - (EGD w/ esophageal dilation) Summary of Care Provided Minutes Spent on Discharge: 45 Hospital Course: Patient is a 72-year-old female with a history of bipolar disorder, diabetes insipidus secondary to history of lithium use, gastroparesis, CKD stage IIIb, hyperparathyroidism and hypercalcemia, erosive esophagitis, PE, dysphagia with PEG tube placement who presented 03/07/2023 with increasing shortness of breath. She had had EGD and PEG tube placement on 03/05 and was discharged on 03/06 but returned to the next night with shortness of breath. She had gone home and vomited and was brought in with hypoxia and sepsis secondary to aspiration pneumonia. She completed a 7-day course of Unasyn and respiratory status improved. She was seen by GI during her admission and had an esophageal dilation but continued to have dysphagia and required PEG nutrition. Nephrology followed for her hypernatremia and hypercalcemia which were available when initially increased after her D5 was discontinued and she was placed on tube feeds with free water flushes, these were titrated up patient has had improvement. On day of discharge she reports feeling fairly well with no acute complaints. Physical Exam Narrative General: Alert, oriented, no apparent distress HEENT: Atraumatic, normocephalic Eyes: Anicteric, normal conjunctiva, extraocular movements grossly intact Neck: Supple Respiratory: normal respiratory effort Cardiovascular: Regular rate GI: Soft, nontender, nondistended Extremities: No edema Musculoskeletal: Moving all extremities Neuro: No overt focal neurological deficits Skin: No rashes appreciated Psych: Cooperative Medical Records Data Medical Nutrition Assessment Dietitian: Malnutrition Criteria Met Start: 03/07/23 10:37 Freq: Status: Active Protocol: Document 03/19/23 10:57 AG (Rec: 03/19/23 10:57 [id number]) Nutrition Malnutrition Evidence of Malnutrition Exists Yes Malnutrition (severe): Chronic Evidenced By Suboptimal Energy Intake ( Severe),Weight Loss (Severe) Intake Problem Inadequate Oral Intake Etiology related to difficulty swallowing Signs/Symptoms as evidenced by NPO Status Active Problem Clinical Problem Chronic Disease or Condition Related Malnutrition Etiology chronic, severe malnutrition related to inadequate oral intake d/t swallowing difficulty Signs/Symptoms as evidenced by unintentional 15.6% wt loss x 5 months; estimated PO intake meeting < 75% of estimated energy needs > 5 months Status Active Problem Recommendation Dietitian Recommendations/Changes 1.) Via PEG- Vital HP at 50mL/ hour w/ 400mL H2O flush every 4 hours to provide 1200 calories, 105 g protein, and 3403mL total fluid/day. 2.) Regular-Pureed/Thin (moist purees for pleasure only) per HEAD GROWER. 3.) As TF tolerance established, will transition to bolus feedings/home enteral formula as appropriate prior to discharge. Weight / BMI Weight Weight: 55.4 kg Body Mass Index (BMI) 20.3 ABG / Lab / Microbiology Data Result Diagrams: 03/19/23 05:20 03/19/23 05:20 Laboratory: Laboratory Results - last 24 hr 03/19/23 05:20: WBC 6.8, RBC 2.54 L, Hgb 7.1 L, Hct 24.9 L, MCV 98.0, MCH 28.0, MCHC 28.5 L, RDW Std Deviation 51.5 H, RDW Coeff of Lee 14.5, Plt Count 343, MPV 10.6, Immature Gran % (Auto) 0.600, Neut % (Auto) 69.7, Lymph % (Auto) 19.1, [place] % (Auto) 8.7, Eos % (Auto) 1.5, Baso % (Auto) 0.4, Absolute Neuts (auto) 4.7, Absolute Lymphs (auto) 1.30, Nucleated RBC % 0 03/19/23 05:20: Sodium 149 H, Potassium 3.8, Chloride 114 H, Carbon Dioxide 31.0, Anion Gap 4 L, BUN 56 H, Creatinine 1.64 H, Estim Creat Clear Calc 26.72, Est GFR (MDRD) Af Amer 39 L, Est GFR (MDRD) Non-Af 33 L, BUN/Creatinine Ratio 34.1 H, Glucose 97, Calcium 10.9 H Microbiology: Microbiology 03/19/23 13:20 Nasal Secretion SARS-CoV-2 Antigen (Rapid) - Final 03/07/23 03:15 Blood Culture (Wb) - Anticubital Right Blood Culture - Final No growth in 5 days. 03/07/23 02:30 Blood Culture (Wb) - Anticubital Right Blood Culture - Final No growth in 5 days. 03/07/23 02:23 Nasal Secretion SARS-CoV-2 & FLU Antigen (Rapid) - Final D/C Instructions Discharge Diet: - (Vital high protein GT 50mls/hr 400 mL H2O flush every 4 hours per nephrolog) Meaningful Use Info Meaningful Use Diagnoses (Choose all that apply): None applicable Discharge Plan Admission Admit Date/Time: 03/07/23 04:40 Primary Reason for Your Visit: Shortness of breath Attending Provider: Anabela Saavedra Primary Care Provider: Jay Kincaid COMMERCIAL FISHING VESSEL OPERATOR Consulting Providers: Hira Castillo ; Edinson Rivers ; Francis Verma ; Lenard Nicole ; Ayse Abrams ; Roz Amador Instructions Patient Instructions: ED Fall Prevention Additional Instructions / Restrictions: -You will need to follow-up with Dr. Verma with GI in his office upon discharge. Please call his office to schedule your hospital follow-up appointment (ph. [phone]) -Please follow-up with nephrology upon discharge -Recommend BMP and calcium in 2 to 3 days to monitor sodium and calcium levels Discharge Orders/Prescriptions Prescriptions: Continued methimazole 5 MG tablet 5 mg PO SUMOWEFR oxybutynin chloride 15 mg tablet extended release 24hr 15 mg PO DAILY Label Comments: take 1 tablet by mouth every morning polyethylene glycol 3350 [Miralax] 17 gram/dose Powder 17 g PO DAILY Prolia 60 mg/mL Syringe 60 mg SUBCUT .Q6MO ferrous sulfate 325 MG tablet 325 mg PO QODAY Qty: 30 0RF sucralfate 100 mg/mL suspension 10 ml PO QACHS ondansetron HCl 4 mg tablet 4 mg PO Q6H PRN (Reason: nausea and vomiting) Qty: 30 0RF Changed memantine 10 MG tablet 10 mg feeding tube DAILY 30 Days Qty: 0 0RF cinacalcet 30 MG tablet 60 mg PO SUMOWEFR 30 Days Qty: 0 0RF lorazepam 2 mg tablet 2 mg feeding tube TID PRN (Reason: AGITATION) 3 Days Qty: 6 0RF Discontinued lamotrigine 100 mg tablet 200 mg PO DAILY Label Comments: take 1 tablet by mouth once daily for 2 WEEKS then INCREASE to 1 ... (REFER TO PRESCRIPTION NOTES). pantoprazole 40 mg tablet,delayed release (DR/EC) 40 mg PO BID Label Comments: take 1 tablet by mouth twice a day Osmolite 1.2 Mp 0.06 gram-1.2 kcal/mL Liquid 120 ml G-tube 5X/DAY Qty: 0 0RF losartan 25 mg tablet 25 mg PO DAILY Qty: 90 0RF No Action misoprostol 200 mcg tablet 200 mcg G-tube 4X/DAYCM losartan 25 mg tablet 25 mg feeding tube DAILY lamotrigine 100 mg tablet 200 mg feeding tube DAILY Label Comments: take 1 tablet by mouth once daily for 2 WEEKS then INCREASE to 1 ... (REFER TO PRESCRIPTION NOTES). lansoprazole 30 mg tablet,disintegrat, delay rel 30 mg feeding tube BID lactulose 20 gram/30 mL solution 20 g G-tube BID Referrals / Follow Up: Ayse Abrams MD [Med Staff - Consulting] - See Referral Note (Please follow-up with Dr. Abrams upon discharge. Please call their office to schedule hospital follow-up appointment upon discharge.) Francis Verma DO [Med Staff - Active Staff] - See Referral Note (You will need to follow-up with Dr. Verma with GI in his office upon discharge. Please call his office to schedule your hospital follow-up appointment (ph. [phone])) Jay Kincaid COMMERCIAL FISHING VESSEL OPERATOR, COMMERCIAL FISHING VESSEL OPERATOR-C [Primary Care Provider] - Within 1 Week Disposition Disposition (needs filled in before D/C Order can be placed): Long-Term Facility Charges/Coding Visit Charges Inpatient E&M: 78650 Disch Hosp >30min
[2023-03-19 17:28] VITALS: BP 127/82; PULSE 87; RESP 14; TEMP 36.3; O2SAT 97
--- NOTE | 2023-03-19 17:46 | NURSING ---
This RN called report to ALEXEY Sullivan on TCU
== END 2023-03-19 17:52 | disposition skilled nursing facility (03) | DRG 871 ==
LOC: ED 04:55 → ICU 07:21 → PCU 03-08 18:08
PROVIDERS: Internal Medicine; Internal Medicine Critical Care Medicine; Internal Medicine Gastroenterology; Nurse Practitioner Adult Health; Student in an Organized Health Care Education/Training Program; Admitting Provider Hospitalist; Emergency Provider Emergency Medicine; PCP Nurse Practitioner Family; Visit Provider Internal Medicine
DX: A41.9 Sepsis, unspecified organism (principal); J69.0 Pneumonitis due to inhalation of food and vomit; J96.01 Acute respiratory failure with hypoxia; E43 Unspecified severe protein-calorie malnutrition; E72.20 Disorder of urea cycle metabolism, unspecified; E87.0 Hyperosmolality and hypernatremia; N25.1 Nephrogenic diabetes insipidus; N17.9 Acute kidney failure, unspecified; G21.9 Secondary parkinsonism, unspecified; N39.0 Urinary tract infection, site not specified; K22.2 Esophageal obstruction; E87.8 Other disorders of electrolyte and fluid balance, not elsewhere classified; N18.32 Chronic kidney disease, stage 3b; F31.9 Bipolar disorder, unspecified; F03.90 Unspecified dementia, unspecified severity, without behavioral disturbance, psychotic disturbance, mood disturbance, and anxiety; E21.0 Primary hyperparathyroidism; Z93.1 Gastrostomy status; G47.31 Primary central sleep apnea; I12.9 Hypertensive chronic kidney disease with stage 1 through stage 4 chronic kidney disease, or unspecified chronic kidney disease; K21.00 Gastro-esophageal reflux disease with esophagitis, without bleeding; K31.84 Gastroparesis; R19.7 Diarrhea, unspecified; E03.9 Hypothyroidism, unspecified; E87.6 Hypokalemia; E86.9 Volume depletion, unspecified; F41.9 Anxiety disorder, unspecified; E83.52 Hypercalcemia; D50.9 Iron deficiency anemia, unspecified; R13.12 Dysphagia, oropharyngeal phase; Z68.21 Body mass index [BMI] 21.0-21.9, adult; Z20.822 Contact with and (suspected) exposure to COVID-19; Z79.899 Other long term (current) drug therapy; Z87.891 Personal history of nicotine dependence
CPT/HCPCS: 36415; 36600; 70551; 71045; 80048; 82140; 82728; 82784; 82803; 83540; 83550; 83605; 83735; 84165; 85014; 85018; 85025; 85379; 85610; 85730; 86334; 86335; 87040; 87426; 87428; 87641; 92507; 92526; 92610; 93005; 93306; 94660; 97110; 97116; 97162; 97166; 97530; 97535; 97802; 97803; 99285; J7030; J7040; J7050; J7120; A4216; J0295; J2405; J2916

== ENCOUNTER 2023-03-19 18:05 | Inpatient (IN) | payer MEDICARE, SELFPAY ==
[2023-03-19 18:14] VITALS: BP 137/85; PULSE 86; RESP 14; TEMP 36.3; O2SAT 96; BMI 20.2
[2023-03-19 20:14] VITALS: PULSE 91; RESP 16; O2SAT 95
[2023-03-19] MEDS: Vital High Protein 1,000 ML 50 ML GT (20:16)
[2023-03-19] MEDS: Lactulose 20 GM/30 ML UDC GT (20:29)
[2023-03-19] MEDS: LORazepam 1 MG Tablet 2 MG GT (20:29)
--- NOTE | 2023-03-19 20:36 | HP.PCM_ITS ---
HPI - General General Date of Admission: 03/19/23 Date of Service: 03/20/23 Chief Complaint: Here for rehabilitation. HPI Narrative 03/07/2023 SIMONA HERNANDEZ, is a 72 Female who presents to [facility] Emergency Department with nausea/vomiting. Recent hospitalization for recurrent nausea/vomiting, underwent PEG, esophageal dilatation. Persistent vomiting, dizzy, concerned with hypernatremia. Pulsox 76%, Lactic acid 2.7, Creatinine 2.29. Chest X-ray showed bilateral pneumonia, concerning for aspiration. Vancomycin, Unasyn given for sepsis, aspiration pneumonia. Oxygen 8-10 liters high flow improved pulsox to 90's. 03/07/2023 Admit to ICU. Unasyn for sepsis, aspiration pneumonia. Marce IV fluids for acute kidney injury. Oxygen 8 liters for acute respiratory failure with hypoxia. Ice chips, NPO. 03/08/2023 Echo LVEF 65%. RVSP 55mm HG. 03/08/2023 Airvo while asleep, NPO. Unasyn for aspiration pneumonia. 03/09/2023 Patient requested increasing Ativan to 4x/day. Add Bronchodilators. D5W for sodium 157. 03/10/2023 Sodium improved to 152. Replace potassium 3.2. 03/11/2023 Sodium 157, increase free water flushes. Change Ativan to 2mg tid. 03/12/2023 Sodium 161, Increase D5W to 150cc/hour, consult Nephrology. 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 Continue D5W. 03/14/2023 Sodium 149, continue D5W. Finished 7 days Unasyn for aspiration pneumonia. MRI brain negative. 03/15/2023 Sodium 144, stop D5W. Oxygen 1 liter per nasal cannula. Psychiatry states Lorazepam necessary to prevent catatonia. 03/16/2023 ST, NPO, TF via PEG for dysphagia. 03/17/2023 Lips dry. Free water flushes for hypernatremia. 03/18/2023 Free water flushes 400ml Q4H for hypernatremia. 03/19/2023 Admit to TCU with debility, here for rehabiltiation, strengthening, prior to discharge home with . PFSH Medical History (Updated 03/19/23 @ 20:[address] Stepan Saenz MD) Acute renal insufficiency CITLALY (acute kidney injury) Anemia Anemia, unspecified Anxiety Back pain Bipolar disorder Bipolar disorder with moderate depression Bladder disease Delirium due to multiple etiologies Diabetes insipidus Dietary restriction Difficulty chewing Dysphagia Erosive esophagitis Falls Former smoker Gastric reflux Gastroparesis Generalized weakness Gram-negative bacteremia History of edema History of gastrostomy tube placement History of gastrostomy tube placement History of herpes zoster History of hiatal hernia Hypercalcemia Hypernatremia Hypertension Post-menopausal Pulmonary emboli Secondary hyperparathyroidism of renal origin Severe dehydration Severe malnutrition Severe malnutrition Stenosis of esophagus Tardive dyskinesia Thyroid disease Unsteady gait UTI (urinary tract infection) Wears glasses Home Medications methimazole 5 mg tablet 5 mg PO SUMOWEFR Thyroid 10/04/20 [History Last Taken 01/14/23] denosumab 60 mg/mL subcutaneous syringe (Prolia) 60 mg subcut .Q6MO osteoporosis 09/05/22 [History Last Taken 08/27/22] oxybutynin chloride 15 mg tablet,extended release 24 hr 15 mg PO DAILY Overactive bladder 09/05/22 [History Last Taken 01/14/23] polyethylene glycol 3350 17 gram/dose oral powder (Miralax) 17 g PO DAILY LAXATIVE 09/05/22 [History Last Taken 09/05/22] ferrous sulfate 325 mg (65 mg iron) tablet 325 mg PO QODAY SUPPLEMENT #30 tabs 12/24/22 [Rx Last Taken 01/13/23] sucralfate 100 mg/mL oral suspension 10 ml PO QACHS GERD 01/30/23 [History Last Taken Unknown] ondansetron HCl 4 mg tablet 4 mg PO Q6H PRN nausea and vomiting #30 tabs 0 03/06/23 [Rx Last Taken Unknown] cinacalcet 30 mg tablet 60 mg PO SUMOWEFR THYROID 30 days #0 tabs 03/19/23 [Rx Last Taken 01/14/23] lactulose 20 gram/30 mL oral solution 20 g G-tube BID Check with primary doctor 03/19/23 [History Last Taken Unknown] lamotrigine 100 mg tablet 200 mg feeding tube DAILY Bipolar Disorder 03/19/23 [History Last Taken Unknown] lansoprazole 30 mg delayed release,disintegrating tablet 30 mg feeding tube BID GERD 03/19/23 [History Last Taken Unknown] lorazepam 2 mg tablet 2 mg feeding tube TID PRN AGITATION 3 days #6 tabs 03/19/23 [Rx Last Taken Unknown] losartan 25 mg tablet 25 mg feeding tube DAILY BP 03/19/23 [History Last Taken Unknown] memantine 10 mg tablet 10 mg feeding tube DAILY Check with primary doctor 30 days #0 tabs 03/19/23 [Rx Last Taken 01/14/23] misoprostol 200 mcg tablet 200 mcg G-tube 4X/DAYCM Check with primary doctor 03/19/23 [History Last Taken Unknown] Allergy/AdvReac Type Severity Reaction Status Date / Time No Known Allergies Allergy Verified 03/04/23 09:26 Family History Father CVA (cerebral vascular accident) Sister CVA (cerebral vascular accident) Cancer Surgical History History of esophagogastroduodenoscopy (EGD) Hx of esophagogastroduodenoscopy Social History household members: spouse housing: house Smoking Status: Former smoker Tobacco: How many years used: 4 second hand exposure: Yes alcohol intake: never substance use type: does not use what type of physical activity do you participate in: other details: OT - [facility] IN [place] frequency: daily valentina/amish: Episcopal seatbelt use: always additional social history: Ambulates at baseline without assistive device ROS Constitutional Constitutional: Denies chills, fever(s) or weight gain ENT HEENT: Denies headache(s), nasal congestion or nasal discharge Cardiovascular Cardiovascular: Denies chest pain or palpitations Respiratory/Chest Respiratory/Chest: Denies cough, excessive phlegm production or shortness of breath with exertion Gastrointestinal Gastrointestinal: Denies abdominal pain, nausea or vomiting Genitourinary Genitourinary: Denies dysuria Musculoskeletal Musculoskeletal: Denies joint pain or joint swelling Integumentary Integumentary: Denies rash or wounds Neurologic Neurologic: Denies focal weakness, numbness or tingling Psychiatric Psychiatric: Denies anxiety, auditory hallucinations, depression, homicidal ideation or suicidal ideation Vital Signs Vital Signs Vital Signs: 03/19/23 18:14 Temperature 97.4 F L Temperature Source Temporal Pulse Rate 86 Respiratory Rate 14 Blood Pressure 137/85 H Blood Pressure Mean 102 Blood Pressure Source Monitor Blood Pressure Position Semi-Fowlers Blood Pressure Location Right Arm Pulse Ox 96 Oxygen Delivery Method Room Air Weight Weight: 55.338 kg Body Mass Index (BMI) 20.2 Physical Exam Const alert General Appearance: cooperative HEENT normocephalic Eyes PERRL and EOMs intact bilaterally Neck supple, no JVD and no carotid bruits Resp normal respiratory effort, normal air movement and clear to auscultation bilaterally Cardio regular rate and regular rhythm GI normal to inspection, nondistended, normoactive bowel sounds, non-tender and non-distended GI Narrative: PEG tube placement. Extremity normal capillary refill General Extremity: Negative for edema Skin no rashes or lesions noted General Skin Exam: no breakdown Psych affect normal Appearance: appropriate Results Lab / Micro Data Result Diagrams: 03/20/23 05:15 03/20/23 05:15 Assessment & Plan Assessment/Plan (1) Debility: (2) Acute respiratory failure with hypoxia: (3) Sepsis: (4) Aspiration pneumonia: (5) Hypernatremia: (6) Nephrogenic diabetes insipidus: (7) Dysphagia: (8) Chronic kidney disease, stage 3b: (9) Gastroparesis: (10) Hyperparathyroidism: (11) Hyperthyroidism: (12) Osteoporosis: (13) Overactive bladder: (14) Anxiety: (15) Iron deficiency anemia: (16) Benzodiazepine dependence: (17) GERD (gastroesophageal reflux disease): (18) Hypertension: (19) Bipolar disorder: (20) Alzheimer disease: PLAN: Plan 72 year old female with below past medical history hospitalized for acute respiratory with hypoxia, aspiration pneumonia, sepsis, 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 * Debility - PT/OT. * Dysphagia - ST, peg tube. * Pain - Monitor. * Bowel - Miralax 17gm daily, Lactulose 20gm bid, Dulcolax 10mg pr x 1 prn. * Adult immunization - Administer pneumonia vaccine, covid19 vaccine, flu vaccine as appropriate. * DVT prophylaxis - Hold, anemia. * Hyperparathyroidism - Cincalcet 60mg 4 days/week, Consult Nephrology. * Iron deficiency anemia - Ferrous sulfate 300mg every other day, Transfuse if hemoglobin < 7.0, or resident symptomatic. * Bipolar disorder - Lamictal 200mg daily. * GERD - Lansoprazole 30mg bid, Cytotec 200mcg 4x/day, sucralfate 1gm qachs. 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 * Hypertension - Losartan 25mg daily. * Alzheimer Disease - Memantine 10mg daily. * Hyperthyroidism - Methimazole 5mg 4 days/week. * Nausea - Zofran odt 4mg q6h prn. * Overactive bladder - Tolterodine 4mg daily. * Nutrition - Vital High Protein 50cc/hour via peg. * Hypernatremia - Monitor, consult Nephrology.
[2023-03-19] MEDS: miSOPROStol 200 MCG Tablet GT (21:35)
[2023-03-19] MEDS: Sucralfate 1 GM Tablet GT (21:37)
[2023-03-20] MEDS: lamoTRIgine 100 MG Tablet 200 MG GT (05:07)
[2023-03-20] MEDS: Tolterodine Tartrate 4 MG CAP.SA PO (05:07)
[2023-03-20] MEDS: Polyethylene Glycol 3350 17 GM PACKET GT (05:07)
[2023-03-20] MEDS: Lansoprazole 15 MG Capsule.DR 30 MG GT ×2 (05:07→17:03)
[2023-03-20] MEDS: Lactulose 20 GM/30 ML UDC GT ×2 (05:08→17:03)
[2023-03-20] MEDS: Methimazole 5 MG Tablet PO (05:08)
[2023-03-20] MEDS: Losartan Potassium 25 MG Tablet GT (05:08)
[2023-03-20] MEDS: Memantine Hydrochloride 10 MG Tablet GT (05:08)
[2023-03-20 05:28] LABS: Absolute Lymphocyte Count 1.24 X10^3/uL (0.83-4.51); Absolute Neutrophil Count 4.2 X10^3/uL (2.0-7.7); Basophil# 0.02 X10^3/uL; Basophil% 0.3 % (0-1); Eosinophil# 0.12 X10^3/uL; Eosinophils% 1.9 % (0-5); Hematocrit 27.2 % (37-47); Hemoglobin 7.7 g/dL (12.0-15.0); Lymphocyte # 1.24 X10^3/ul (0.83-4.51); Lymphocyte % 19.9 % (19-41); Mean Corp Hgb Conc 28.3 g/dL (32-36); Mean Corpuscular Hgb 27.8 pg (27.0-32.0); Mean Corpuscular Volume 98.2 fL (81-99); Monocyte# 0.59 X10^3/uL; Monocyte% 9.5 % (0-10); NRBC Flagged by Analyzer 0 % (0-5); Neutrophil # 4.22 X10^3/uL (2.7-7.7); Neutrophil % 67.9 % (47-70); Platelet Count 385 K/mm3 (150-450); RBC Distribution Width CV 14.6 % (11.6-14.6); RBC Distribution Width SD 52.1 fl (35.1-43.9); Red Blood Count 2.77 M/mm3 (4.2-5.4); White Blood Count 6.2 K/mm3 (4.4-11.0)
[2023-03-20 05:49] LABS: Anion Gap 4 (5-15); BUN 53 mg/dL (7-18); BUN/Creat Ratio 32.1 RATIO (10-20); Calcium,Total 12.2 mg/dL (8.5-10.1); Chloride 117 mmol/L (98-107); Creatinine, Serum 1.65 mg/dL (0.55-1.02); EST Glomerular Filtration Rate 32 mL/min (>60); Est Glom Filt Rate - Afr Amer 39 mL/min (>60); Estimated Creatinine Clearance 26.53 ml/min; Glucose 112 mg/dL (74-106); Sodium Level 153 mmol/L (136-145)
[2023-03-20 06:36] LABS: Bedside Glucose 99 mg/dL (74-106)
--- NOTE | 2023-03-20 06:49 | NURSING ---
Patient spouse Jeffrey requests patient receive Ativan routinely 3 times daily due to patient having alot of mental issues and goes into a catatonic state sometimes. Spouse states patient has been taking Ativan 2mg three times daily for a while now. Written communication left for Dr. Saenz regarding request. Patient is max assist for all care. Peg tube patent with vital HP infusing per order, flushes maintained per order. Patient forgetful, presents as confused frequently Alert to person/place, often repeats self at times during conversation. Incontinent of bowel and bladder. No distress observed or reported. Call light in reach.
[2023-03-20] MEDS: Cinacalcet HCl 30 MG Tablet 60 MG PO (08:26)
[2023-03-20] MEDS: Sucralfate 1 GM Tablet GT ×4 (08:26→21:54)
[2023-03-20] MEDS: miSOPROStol 200 MCG Tablet GT ×4 (08:26→21:54)
--- NOTE | 2023-03-20 08:30 | NURSING ---
Medications given VIA Peg Residual checked. Residual Lucia in color 50ml removed and replaced. Pt tolerated Medication administration well.
--- NOTE | 2023-03-20 10:52 | PCM.PN.REN ---
Subjective Subjective Following for CITLALY on CKD, hypernatremia and hypercalcemia Patient sitting in chair. No overnight events. at bedside. Objective Data Objective Data Vital Signs: Vital Signs Temp Pulse Resp BP Pulse Ox O2 Del Method 97.4 F L 91 16 137/85 H 95 Room Air 03/19/23 18:14 03/19/23 20:14 03/19/23 20:14 03/19/23 18:14 03/19/23 20:14 03/19/23 20:14 Oxygen Delivery Method Room Air Weight: 55.338 kg Body Mass Index (BMI) 20.2 Medical Nutrition Assessment Dietitian: Malnutrition Criteria Met Start: 03/20/23 08:07 Freq: Status: Active Protocol: Document 03/20/23 08:08 AG (Rec: 03/20/23 08:08 [id number]) Nutrition Malnutrition Evidence of Malnutrition Exists Yes Malnutrition (severe): Chronic Evidenced By Suboptimal Energy Intake ( Severe),Weight Loss (Severe) Clinical Problem Chronic Disease or Condition Related Malnutrition Etiology chronic severe malnutrition related to inadequate energy intake d/t dysphagia Signs/Symptoms as evidenced by unintentional 11.8kg/18% wt loss x 7 months; estimated PO intake meeting < 75% of estimated energy needs > 6 months Status Active Problem Recommendation Dietitian Recommendations/Changes 1.) Via PEG- Vital HP at 50mL/ hour w/ 400mL H2O flush every 4 hours to provide 1200 calories, 105 g protein, and 3403mL total fluid/day. 2.) PO diet per CROWN BUFFER ( Previously was regular-pureed/ thin (moist purees for pleasure only). 3.) Recommend transition to bolus feedings/home enteral formula as able prior to discharge. [ End ] Lab / Micro Data Result Diagrams: 03/20/23 05:15 03/20/23 05:15 Labs: Laboratory Results - last 24 hr 03/20/23 05:15: WBC 6.2, RBC 2.77 L, Hgb 7.7 L, Hct 27.2 L, MCV 98.2, MCH 27.8, MCHC 28.3 L, RDW Std Deviation 52.1 H, RDW Coeff of Lee 14.6, Plt Count 385, MPV 10.0, Immature Gran % (Auto) 0.500, Neut % (Auto) 67.9, Lymph % (Auto) 19.9, [place] % (Auto) 9.5, Eos % (Auto) 1.9, Baso % (Auto) 0.3, Absolute Neuts (auto) 4.2, Absolute Lymphs (auto) 1.24, Nucleated RBC % 0 03/20/23 05:15: Sodium 153 H, Potassium 4.0, Chloride 117 H, Carbon Dioxide 32.0, Anion Gap 4 L, BUN 53 H, Creatinine 1.65 H, Estim Creat Clear Calc 26.53, Est GFR (MDRD) Af Amer 39 L, Est GFR (MDRD) Non-Af 32 L, BUN/Creatinine Ratio 32.1 H, Glucose 112 H, Calcium 12.2 H 03/20/23 06:00: POC Glucose 99 Physical Exam Narrative Alert and oriented x 3, no apparent distress S1, S2, RRR Lung sounds clear anteriorly and posteriorly. No wheezes, rhonchi rales noted Abdomen soft, nontender. 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 Patient was admitted to the hospital with aspiration pneumonia.? Nephrology is following for CITLALY on CKD, hypernatremia, and hypercalcemia. She was transferred to TCU 03/19. CITLALY on CKD stage G3b. 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 The patient is followed in the office by Dr. Abrams. Baseline serum creatinine has been around 1.7 to 1.8 mg/dL. Nonoliguric, mildly hypovolemic CITLALY secondary to volume depletion.? Creatinine peaked at 2.29 mg/dL on 03/07/2023. Renal function improves with volume expansion.? Currently creatinine 1.65 mg/dL today.?She was on IVF yesterday but stopped as renal function and electrolytes improved. 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 The patient has been tolerating tube feeds with no residuals.? Serum sodium improved 149 mmol/L yesterday, stopped IVF and today sodium up to 153. Will give IVFs, 1L today.? Continue current water flush 400ml every 4 hours.? Patient is also able to take thin liquids, supervised. Between tube feeding and PEG tube water flush patient is receiving around 3L daily. Hypercalcemia. The patient has a history of primary hyperparathyroidism. Recent rise in serum calcium (peaked 12.6 on 03/17) may be due to discontinuation of IV fluid but there may also have been a few missed doses of cinacalcet. Calcium 10.9 yesterday -->12.2 today.? Continue cinacalcet 60 mg 4 times per week. IVFs also ordered for today. Labs ordered for a.m.
[2023-03-20] MEDS: Tuberculin,Purif.prot.deriv. 50 TU/ML Vial 0.1 ML ID (11:49)
[2023-03-20] MEDS: Vital High Protein 1,000 ML 50 ML GT (11:56)
--- NOTE | 2023-03-20 12:20 | NURSING ---
Plaster Foreman Note; Activity Asset: Ishmael Childress is independent in her choice of daily activities. Her will visit daily. Her hindu will visit and she welcomes visit from film and video graphics designer and the therapy dog. She enjoys reading and will bring in her glasses and her book along with the magazines I offered her. When not reading she will watch tv as well.
[2023-03-20] MEDS: 0.9% Saline Lock 10 ML Syringe IV (12:44)
[2023-03-20] MEDS: Menthol/Lanolin/Calamine/Znox 113 GM Tube 1 APPLIC TOPICAL ×2 (13:01→21:55)
[2023-03-20] MEDS: Nystatin Powder 15gm Bottle 1 APPLIC TOPICAL ×2 (13:02→21:55)
[2023-03-20 14:33] VITALS: BP 147/86; PULSE 95; RESP 16; TEMP 36.7; O2SAT 98
[2023-03-20] MEDS: LORazepam 1 MG Tablet 2 MG GT ×2 (14:48→21:54)
--- NOTE | 2023-03-20 16:07 | PCM.PN.RX ---
Progress Note - Pharmacy Subjective: [] Objective: Allergies No Known Allergies Allergy (Verified 03/04/23 09:26) Current Medications Generic Name Dose Route Start Last Admin Trade Name Freq PRN Reason Stop Dose Admin Bisacodyl 10 mg 03/19/23 18:38 Bisacodyl 10 Mg Suppository RC X1 PRN Constipation Calamine/Phenol 1 applic 03/20/23 10:00 03/20/23 13:01 Menthol/Lanolin/Calamine/Znox 113 Gm Tube TOPICAL 1 applic BID@1000,2200 BINA Administration Protocol Cinacalcet 60 mg 03/20/23 08:00 03/20/23 08:26 Cinacalcet Hcl 30 Mg Tablet PO 60 mg SUMOWEFR@0800 BINA Administration Ferrous Sulfate 300 mg 03/21/23 17:00 Ferrous Sulfate 300 Mg/5 Ml Udc GT QODAY@1700 BINA Enteral Nutritional Formula 1,000 mls @ 50 mls/hr 03/19/23 18:45 03/20/23 11:56 Vital High Protein GT 50 mls/hr .Q20H BINA Administration Dextrose 1,000 mls @ 100 mls/hr 03/20/23 12:00 03/20/23 12:30 IV 03/20/23 21:59 100 mls/hr .Q10H BINA Administration Lactulose 20 gm 03/19/23 18:45 03/20/23 05:08 Lactulose 20 Gm/30 Ml Udc GT 20 gm BID BINA Administration Lamotrigine 200 mg 03/20/23 06:00 03/20/23 05:07 Lamotrigine 100 Mg Tablet GT 200 mg DAILY BINA Administration Lansoprazole 30 mg 03/20/23 06:00 03/20/23 05:07 Lansoprazole 15 Mg Capsule. GT 30 mg BID BINA Administration Lorazepam 2 mg 03/20/23 14:00 03/20/23 14:48 Lorazepam 1 Mg Tablet GT 2 mg TID BINA Administration Losartan Potassium 25 mg 03/20/23 06:00 03/20/23 05:08 Losartan Potassium 25 Mg Tablet GT 25 mg DAILY BINA Administration Memantine 10 mg 03/20/23 06:00 03/20/23 05:08 Memantine Hydrochloride 10 Mg Tablet GT 10 mg DAILY BINA Administration Methimazole 5 mg 03/20/23 06:00 03/20/23 05:08 Methimazole 5 Mg Tablet PO 5 mg SuMoWeFr@0600 BINA Administration Misoprostol 200 mcg 03/19/23 22:00 03/20/23 11:48 Misoprostol 200 Mcg Tablet GT 200 mcg 4X/DAYCM BINA Administration Nystatin 1 applic 03/20/23 10:00 03/20/23 13:02 Nystatin Powder 15gm Bottle TOPICAL 1 applic BID@1000,2200 BINA Administration Protocol Ondansetron HCl 4 mg 03/19/23 18:42 Ondansetron Odt 4 Mg Tablet PO Q6H PRN PRN NAUSEA/VOMITING Polyethylene Glycol 17 gm 03/20/23 06:00 03/20/23 05:07 Polyethylene Glycol 3350 17 Gm Packet GT 17 gm DAILY BINA Administration Sodium Chloride 10 - 40 ml 03/19/23 18:46 03/20/23 12:44 0.9% Saline Lock 10 Ml Syringe IV 20 ml UD PRN Administration SALINE FLUSH Sucralfate 1 gm 03/19/23 22:00 03/20/23 11:48 Sucralfate 1 Gm Tablet GT 1 gm ACHS BINA Administration Tolterodine Tartrate 4 mg 03/20/23 06:00 03/20/23 05:07 Tolterodine Tartrate 4 Mg Cap.Sa PO 4 mg DAILY BINA Administration Tuberculin PPD 0.1 ml 03/27/23 10:00 Tuberculin,Purif.Prot.Deriv. 50 Tu/Ml Vial ID 03/27/23 10:01 X1 ONE Problem List (Last Updated 03/19/23 @ 20:[address] Stepan Saenz MD) Alzheimer disease (Acute) Bipolar disorder (Acute) Hypertension (Chronic) GERD (gastroesophageal reflux disease) (Acute) Benzodiazepine dependence (Acute) Iron deficiency anemia (Acute) Anxiety (Acute) Overactive bladder (Acute) Osteoporosis (Acute) Hyperthyroidism (Acute) Hyperparathyroidism (Acute) Gastroparesis (Acute) Chronic kidney disease, stage 3b (Acute) Dysphagia (Acute) Nephrogenic diabetes insipidus (Acute) Hypernatremia (Acute) Aspiration pneumonia (Acute) Sepsis (Acute) Acute respiratory failure with hypoxia (Acute) Debility (Acute) Hypercalcemia (Acute) Vital Signs Temp Pulse Resp BP Pulse Ox O2 Del Method 98.0 F 95 16 147/86 H 98 Room Air 03/20/23 14:33 03/20/23 14:33 03/20/23 14:33 03/20/23 14:33 03/20/23 14:33 03/20/23 14:33 Oxygen Delivery Method Room Air Weight: 55.338 kg Body Mass Index (BMI) 20.2 Sodium 153 mmol/L (136-145) H 03/20/23 05:15 Potassium 4.0 mmol/L (3.5-5.1) 03/20/23 05:15 Chloride 117 mmol/L (98-107) H 03/20/23 05:15 Carbon Dioxide 32.0 mmol/L (21.0-32.0) 03/20/23 05:15 Anion Gap 4 (5-15) L 03/20/23 05:15 BUN 53 mg/dL (7-18) H 03/20/23 05:15 Creatinine 1.65 mg/dL (0.55-1.02) H 03/20/23 05:15 Est GFR (MDRD) Af Amer 39 mL/min (>60) L 03/20/23 05:15 Est GFR (MDRD) Non-Af 32 mL/min (>60) L 03/20/23 05:15 BUN/Creatinine Ratio 32.1 RATIO (10-20) H 03/20/23 05:15 Glucose 112 mg/dL (74-106) H 03/20/23 05:15 Assessment/Plan:
--- NOTE | 2023-03-20 16:40 | CASEMGMT ---
Social Work Met with patient and to complete initial assessment. Introduced self and role. Verified contacts. Discussed code status and MOLST form. Pt confirmed full code. MOLST placed on chart. Educated to [facility] insurance with [employer] 03/23, $0/copay, and continued stay is not guaranteed with each review. Pt reports she will need to DC home with peg tube. reports pt was seen by neurologist and ruled out Parkinson's. See SW assessment for mental health history. Pt's goal is to return home with . is requesting palliative consult. [place] placed order and sent referral via secure email to [facility]. [place] to continue to follow for DC planning and support. Zoe Lombardo, CELLOPHANE PRESS OPERATOR INDEXER
--- NOTE | 2023-03-20 17:35 | NURSING ---
Residual checked prior to medication administration 50Ml of yellow residual noted and readministered. Pt tolerated well.
[2023-03-21 05:20] VITALS: BP 127/76; PULSE 92
[2023-03-21] MEDS: LORazepam 1 MG Tablet 2 MG GT ×3 (05:23→21:33)
[2023-03-21] MEDS: Lactulose 20 GM/30 ML UDC GT ×2 (05:24→16:54)
[2023-03-21] MEDS: Tolterodine Tartrate 4 MG CAP.SA PO (05:24)
[2023-03-21] MEDS: lamoTRIgine 100 MG Tablet 200 MG GT (05:24)
[2023-03-21] MEDS: Lansoprazole 15 MG Capsule.DR 30 MG GT ×2 (05:24→16:55)
[2023-03-21] MEDS: Losartan Potassium 25 MG Tablet GT (05:24)
[2023-03-21] MEDS: Polyethylene Glycol 3350 17 GM PACKET GT (05:25)
[2023-03-21] MEDS: Memantine Hydrochloride 10 MG Tablet GT (05:25)
[2023-03-21 07:00] LABS: Bedside Glucose 110 mg/dL (74-106)
[2023-03-21 07:26] LABS: Anion Gap 4 (5-15); BUN 49 mg/dL (7-18); BUN/Creat Ratio 30.4 RATIO (10-20); Calcium,Total 11.5 mg/dL (8.5-10.1); Chloride 110 mmol/L (98-107); Creatinine, Serum 1.61 mg/dL (0.55-1.02); EST Glomerular Filtration Rate 33 mL/min (>60); Est Glom Filt Rate - Afr Amer 40 mL/min (>60); Estimated Creatinine Clearance 27.19 ml/min; Glucose 126 mg/dL (74-106); Potassium 3.8 mmol/L (3.5-5.1); Sodium Level 145 mmol/L (136-145)
[2023-03-21] MEDS: Menthol/Lanolin/Calamine/Znox 113 GM Tube 1 APPLIC TOPICAL ×2 (08:38→21:34)
[2023-03-21] MEDS: miSOPROStol 200 MCG Tablet GT ×4 (08:38→21:32)
[2023-03-21] MEDS: Nystatin Powder 15gm Bottle 1 APPLIC TOPICAL ×2 (08:38→21:33)
[2023-03-21] MEDS: Sucralfate 1 GM Tablet GT ×4 (08:38→21:32)
[2023-03-21] MEDS: Vital High Protein 1,000 ML 50 ML GT (10:28)
[2023-03-21 11:37] VITALS: PULSE 89; RESP 18; O2SAT 95
[2023-03-21 12:54] LABS: Hemoglobin 8.1 g/dL (12.0-15.0)
[2023-03-21 13:18] LABS: Hematocrit 27.5 % (37-47)
[2023-03-21 15:13] VITALS: BP 107/60; PULSE 89; RESP 16; TEMP 36.5; O2SAT 96
[2023-03-21] MEDS: Ferrous Sulfate 300 MG/5 ML UDC GT (16:54)
[2023-03-21] MEDS: 0.9% Saline Lock 10 ML Syringe IV (16:58)
[2023-03-22] MEDS: Lactulose 20 GM/30 ML UDC GT ×2 (06:17→16:18)
[2023-03-22] MEDS: Lansoprazole 15 MG Capsule.DR 30 MG GT ×2 (06:19→16:18)
[2023-03-22] MEDS: Tolterodine Tartrate 4 MG CAP.SA PO (06:19)
[2023-03-22] MEDS: Sucralfate 1 GM Tablet GT ×4 (06:19→22:31)
[2023-03-22] MEDS: lamoTRIgine 100 MG Tablet 200 MG GT (06:20)
[2023-03-22] MEDS: Memantine Hydrochloride 10 MG Tablet GT (06:20)
[2023-03-22] MEDS: Losartan Potassium 25 MG Tablet GT (06:20)
[2023-03-22] MEDS: Methimazole 5 MG Tablet PO (06:21)
[2023-03-22] MEDS: Vital High Protein 1,000 ML 50 ML GT (06:24)
[2023-03-22] MEDS: LORazepam 1 MG Tablet 2 MG GT ×3 (06:24→22:31)
[2023-03-22 06:45] LABS: Bedside Glucose 107 mg/dL (74-106)
[2023-03-22] MEDS: miSOPROStol 200 MCG Tablet GT ×4 (08:05→22:32)
[2023-03-22] MEDS: Cinacalcet HCl 30 MG Tablet 60 MG PO (08:05)
[2023-03-22] MEDS: Nystatin Powder 15gm Bottle 1 APPLIC TOPICAL ×2 (08:05→22:30)
[2023-03-22] MEDS: Menthol/Lanolin/Calamine/Znox 113 GM Tube 1 APPLIC TOPICAL ×2 (08:05→22:45)
[2023-03-22 16:00] VITALS: BP 109/71; PULSE 92; RESP 14; TEMP 36.3; O2SAT 94
[2023-03-22] MEDS: 0.9% Saline Lock 10 ML Syringe IV (16:41)
[2023-03-22 22:25] VITALS: BP 115/62; PULSE 87
[2023-03-23] MEDS: Vital High Protein 1,000 ML 50 ML GT ×2 (02:32→22:00)
[2023-03-23 05:52] LABS: Hematocrit 26.3 % (37-47); Hemoglobin 7.8 g/dL (12.0-15.0)
[2023-03-23 06:36] LABS: Bedside Glucose 109 mg/dL (74-106)
[2023-03-23] MEDS: Sucralfate 1 GM Tablet GT ×4 (06:46→21:58)
[2023-03-23] MEDS: LORazepam 1 MG Tablet 2 MG GT ×3 (06:49→21:57)
[2023-03-23] MEDS: lamoTRIgine 100 MG Tablet 200 MG GT (06:50)
[2023-03-23] MEDS: Lansoprazole 15 MG Capsule.DR 30 MG GT ×2 (06:50→17:00)
[2023-03-23] MEDS: Tolterodine Tartrate 4 MG CAP.SA PO (06:50)
[2023-03-23] MEDS: Lactulose 20 GM/30 ML UDC GT ×2 (06:51→16:59)
[2023-03-23] MEDS: Memantine Hydrochloride 10 MG Tablet GT (06:51)
[2023-03-23] MEDS: Methimazole 5 MG Tablet PO (06:51)
[2023-03-23] MEDS: Losartan Potassium 25 MG Tablet GT (06:52)
[2023-03-23] MEDS: Polyethylene Glycol 3350 17 GM PACKET GT (06:52)
[2023-03-23 07:06] VITALS: BP 113/77; PULSE 88
[2023-03-23] MEDS: Cinacalcet HCl 30 MG Tablet 60 MG PO (08:41)
[2023-03-23] MEDS: Nystatin Powder 15gm Bottle 1 APPLIC TOPICAL ×2 (08:43→21:58)
[2023-03-23] MEDS: miSOPROStol 200 MCG Tablet GT ×4 (08:43→21:58)
[2023-03-23] MEDS: Menthol/Lanolin/Calamine/Znox 113 GM Tube 1 APPLIC TOPICAL ×2 (08:44→21:58)
--- NOTE | 2023-03-23 09:23 | PCM.PN.DRR ---
TCU RX Drug Regimen Review Subjective: TCU Admission. 72 YOF presented to the ER with nausea and vomiting. 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 Admitted to TCU with debility for strengthening and rehabilitation. Objective: Allergies No Known Allergies Allergy (Verified 03/04/23 09:26) Current Medications Generic Name Dose Route Start Last Admin Trade Name Freq PRN Reason Stop Dose Admin Bisacodyl 10 mg 03/19/23 18:38 Bisacodyl 10 Mg Suppository RC X1 PRN Constipation Calamine/Phenol 1 applic 03/20/23 10:00 03/23/23 08:44 Menthol/Lanolin/Calamine/Znox 113 Gm Tube TOPICAL 1 applic BID@1000,2200 BINA Administration Protocol Cinacalcet 60 mg 03/20/23 08:00 03/23/23 08:41 Cinacalcet Hcl 30 Mg Tablet PO 60 mg SUMOWEFR@0800 BINA Administration Ferrous Sulfate 300 mg 03/21/23 17:00 03/21/23 16:54 Ferrous Sulfate 300 Mg/5 Ml Udc GT 300 mg QODAY@1700 BINA Administration Enteral Nutritional Formula 1,000 mls @ 50 mls/hr 03/19/23 18:45 03/23/23 02:32 Vital High Protein GT 50 mls/hr .Q20H BINA Administration Lactulose 20 gm 03/19/23 18:45 03/23/23 06:51 Lactulose 20 Gm/30 Ml Udc GT 20 gm BID BINA Administration Lamotrigine 200 mg 03/20/23 06:00 03/23/23 06:50 Lamotrigine 100 Mg Tablet GT 200 mg DAILY BINA Administration Lansoprazole 30 mg 03/20/23 06:00 03/23/23 06:50 Lansoprazole 15 Mg Capsule.Dr GT 30 mg BID BINA Administration Lorazepam 2 mg 03/20/23 14:00 03/23/23 06:49 Lorazepam 1 Mg Tablet GT 2 mg TID BINA Administration Losartan Potassium 25 mg 03/20/23 06:00 03/23/23 06:52 Losartan Potassium 25 Mg Tablet GT 25 mg DAILY BINA Administration Memantine 10 mg 03/20/23 06:00 03/23/23 06:51 Memantine Hydrochloride 10 Mg Tablet GT 10 mg DAILY BINA Administration Methimazole 5 mg 03/20/23 06:00 03/23/23 06:51 Methimazole 5 Mg Tablet PO 5 mg SuMoWeFr@0600 BINA Administration Misoprostol 200 mcg 03/19/23 22:00 03/23/23 08:43 Misoprostol 200 Mcg Tablet GT 200 mcg 4X/DAYCM BINA Administration Nystatin 1 applic 03/20/23 10:00 03/23/23 08:43 Nystatin Powder 15gm Bottle TOPICAL 1 applic BID@1000,2200 BINA Administration Protocol Ondansetron HCl 4 mg 03/19/23 18:42 Ondansetron Odt 4 Mg Tablet PO Q6H PRN PRN NAUSEA/VOMITING Polyethylene Glycol 17 gm 03/20/23 06:00 03/23/23 06:52 Polyethylene Glycol 3350 17 Gm Packet GT 17 gm DAILY BINA Administration Sodium Chloride 10 - 40 ml 03/19/23 18:46 03/22/23 16:41 0.9% Saline Lock 10 Ml Syringe IV 10 ml UD PRN Administration SALINE FLUSH Sucralfate 1 gm 03/19/23 22:00 03/23/23 06:46 Sucralfate 1 Gm Tablet GT 1 gm ACHS BINA Administration Tolterodine Tartrate 4 mg 03/20/23 06:00 03/23/23 06:50 Tolterodine Tartrate 4 Mg Cap.Sa PO 4 mg DAILY BINA Administration Tuberculin PPD 0.1 ml 03/27/23 10:00 Tuberculin,Purif.Prot.Deriv. 50 Tu/Ml Vial ID 03/27/23 10:01 X1 ONE Problem List (Last Updated 03/19/23 @ 20:[address] Stepan Saenz MD) Alzheimer disease (Acute) Bipolar disorder (Acute) Hypertension (Chronic) GERD (gastroesophageal reflux disease) (Acute) Benzodiazepine dependence (Acute) Iron deficiency anemia (Acute) Anxiety (Acute) Overactive bladder (Acute) Osteoporosis (Acute) Hyperthyroidism (Acute) Hyperparathyroidism (Acute) Gastroparesis (Acute) Chronic kidney disease, stage 3b (Acute) Dysphagia (Acute) Nephrogenic diabetes insipidus (Acute) Hypernatremia (Acute) Aspiration pneumonia (Acute) Sepsis (Acute) Acute respiratory failure with hypoxia (Acute) Debility (Acute) Hypercalcemia (Acute) Vital Signs Temp Pulse Resp BP Pulse Ox O2 Del Method 97.4 F L 88 14 113/77 94 Room Air 03/22/23 16:00 03/23/23 07:06 03/22/23 16:00 03/23/23 07:06 03/22/23 16:00 03/22/23 22:00 Oxygen Delivery Method Room Air Weight: 55.338 kg Body Mass Index (BMI) 20.2 Sodium 145 mmol/L (136-145) 03/21/23 05:45 Potassium 3.8 mmol/L (3.5-5.1) 03/21/23 05:45 Chloride 110 mmol/L (98-107) H 03/21/23 05:45 Carbon Dioxide 31.0 mmol/L (21.0-32.0) 03/21/23 05:45 Anion Gap 4 (5-15) L 03/21/23 05:45 BUN 49 mg/dL (7-18) H 03/21/23 05:45 Creatinine 1.61 mg/dL (0.55-1.02) H 03/21/23 05:45 Est GFR (MDRD) Af Amer 40 mL/min (>60) L 03/21/23 05:45 Est GFR (MDRD) Non-Af 33 mL/min (>60) L 03/21/23 05:45 BUN/Creatinine Ratio 30.4 RATIO (10-20) H 03/21/23 05:45 Glucose 126 mg/dL (74-106) H 03/21/23 05:45 Assessment/Plan: 1. Bowel: Miralax 17gm GT daily, lactulose 20mg GT BID and bisacodyl 10mg RC x1 PRN constipation. Last documented bowel movement on 03/17. No PRN doses have been given. Please continue to monitor for constipation and PRN usage. 2. Hyperparathyroidism: cinacalcet 60mg PO SuMoWeFr. Please continue to monitor calcium levels (last 11.5mg/dL). Nephrology consulted. 3. Iron deficiency anemia: ferrous sulfate 300mg GT every other day. Please continue to monitor hemoglobin (last 7.8g/dL), constipation and dark stools. 4. Hypertension: losartan 25mg PO daily. Please continue to monitor BP (last 113/) and renal function. 5. Hyperthyroidism: methimazole 5mg PO SuMoWeFr. Please continue to monitor LFTs (last 02/10/23) and TSH (last 03/05/23). 6. Bipolar disorder: lamotrigine 200mg GT daily. Please continue to monitor for S/S of bipolar disorder, falls/fractures (BEERs criteria), rash (black box warning) and drowsiness. 7. GERD: lansoprazole 30mg GT BID, misoprostol 200mcg GT 4x/dayCM and sucralfate 1gm GT ACHS. Please continue to monitor for S/S of GERD, diarrhea (BEERs medication), abdominal pain and flatulance. 8. Alzheimer disease: memantine 10mg PO daily. Please continue to monitor for S/S of Alzheimer disease, rash, and GI side effects. 9. Overactive bladder: tolterodine 4mg PO daily. Please continue to monitor for S/S of overactive bladder, constipation, dry mouth and dementia/delirium (BEERs medication). 10. Nausea: ondansetron ODT 4mg PO Q6H PRN nausea/vomiting. No doses given yet. Please continue to monitor for S/S of nausea, vomiting and PRN usage. Assessment/Plan for indications treated with psychotropic medications: 1. Anxiety: lorazepam 2mg GT TID. Please see physician note regarding GDR. Please continue to monitor for S/S of anxiety, falls/fractures (BEERs medication), dementia/delirium (BEERs medication) and confusion. Medical chart and medication regimen reviewed. The following medication irregularities or issues were identified: None Date of Note:: 03/23/23
[2023-03-23 09:52] VITALS: PULSE 94; O2SAT 96
[2023-03-23 15:08] VITALS: BP 104/70; PULSE 92; RESP 13; TEMP 36.9; O2SAT 96
[2023-03-23] MEDS: Ferrous Sulfate 300 MG/5 ML UDC GT (16:59)
[2023-03-23] MEDS: 0.9% Saline Lock 10 ML Syringe IV (18:23)
[2023-03-24] MEDS: Lactulose 20 GM/30 ML UDC GT ×2 (05:29→16:59)
[2023-03-24] MEDS: LORazepam 1 MG Tablet 2 MG GT ×3 (05:29→23:24)
[2023-03-24] MEDS: lamoTRIgine 100 MG Tablet 200 MG GT (05:30)
[2023-03-24] MEDS: Tolterodine Tartrate 4 MG CAP.SA PO (05:30)
[2023-03-24] MEDS: Sucralfate 1 GM Tablet GT ×4 (05:30→23:25)
[2023-03-24] MEDS: Polyethylene Glycol 3350 17 GM PACKET GT (05:30)
[2023-03-24] MEDS: Lansoprazole 15 MG Capsule.DR 30 MG GT ×2 (05:30→16:59)
[2023-03-24] MEDS: Losartan Potassium 25 MG Tablet GT (05:30)
[2023-03-24] MEDS: Memantine Hydrochloride 10 MG Tablet GT (05:30)
[2023-03-24 05:35] VITALS: BP 103/68; PULSE 89
[2023-03-24 06:40] LABS: Bedside Glucose 106 mg/dL (74-106)
[2023-03-24 06:46] LABS: Anion Gap 4 (5-15); BUN 66 mg/dL (7-18); BUN/Creat Ratio 42.3 RATIO (10-20); Calcium,Total 12.3 mg/dL (8.5-10.1); Chloride 102 mmol/L (98-107); Creatinine, Serum 1.56 mg/dL (0.55-1.02); EST Glomerular Filtration Rate 35 mL/min (>60); Est Glom Filt Rate - Afr Amer 42 mL/min (>60); Estimated Creatinine Clearance 28.06 ml/min; Glucose 94 mg/dL (74-106); Potassium 4.9 mmol/L (3.5-5.1); Sodium Level 137 mmol/L (136-145)
[2023-03-24] MEDS: miSOPROStol 200 MCG Tablet GT ×4 (08:22→23:26)
[2023-03-24 10:24] VITALS: BMI 20.3
[2023-03-24] MEDS: Nystatin Powder 15gm Bottle 1 APPLIC TOPICAL ×2 (11:28→23:25)
[2023-03-24] MEDS: Menthol/Lanolin/Calamine/Znox 113 GM Tube 1 APPLIC TOPICAL ×2 (11:28→23:25)
--- NOTE | 2023-03-24 11:58 | PCM.PN.REN ---
Subjective Subjective Sitting in chair. No overnight events. Now eating pureed and drinking water. Not having any recent vomiting. Objective Data Objective Data Vital Signs: Vital Signs Temp Pulse Resp BP Pulse Ox O2 Del Method 98.4 F 89 13 103/68 96 Room Air 03/23/23 15:08 03/24/23 05:35 03/23/23 15:08 03/24/23 05:35 03/23/23 15:08 03/23/23 15:08 Oxygen Delivery Method Room Air Weight: 55.429 kg Body Mass Index (BMI) 20.3 Intake & Output: Intake and Output for Last 24 Hours 03/22/23 03/23/23 03/24/23 23:59 23:59 23:59 Intake Total 2915.67 / 2915.67 3673.33 / 3673.33 360 / 360 Output Total 1500 / 1500 1150 / 1150 1300 / 1300 Balance 1415.67 / 1415.67 2523.33 / 2523.33 -940 / -940 Medical Nutrition Assessment Dietitian: Malnutrition Criteria Met Start: 03/20/23 08:07 Freq: Status: Active Protocol: Document 03/20/23 08:08 AG (Rec: 03/20/23 08:08 [id number]) Nutrition Malnutrition Evidence of Malnutrition Exists Yes Malnutrition (severe): Chronic Evidenced By Suboptimal Energy Intake ( Severe),Weight Loss (Severe) Clinical Problem Chronic Disease or Condition Related Malnutrition Etiology chronic severe malnutrition related to inadequate energy intake d/t dysphagia Signs/Symptoms as evidenced by unintentional 11.8kg/18% wt loss x 7 months; estimated PO intake meeting < 75% of estimated energy needs > 6 months Status Active Problem Recommendation Dietitian Recommendations/Changes 1.) Via PEG- Vital HP at 50mL/ hour w/ 400mL H2O flush every 4 hours to provide 1200 calories, 105 g protein, and 3403mL total fluid/day. 2.) PO diet per DENTAL DIRECTOR ( Previously was regular-pureed/ thin (moist purees for pleasure only). 3.) Recommend transition to bolus feedings/home enteral formula as able prior to discharge. [ End ] Lab / Micro Data Result Diagrams: 03/23/23 05:27 03/24/23 05:27 Labs: Laboratory Results - last 24 hr 03/24/23 05:27: Sodium 137, Potassium 4.9, Chloride 102, Carbon Dioxide 31.0, Anion Gap 4 L, BUN 66 H, Creatinine 1.56 H, Estim Creat Clear Calc 28.06, Est GFR (MDRD) Af Amer 42 L, Est GFR (MDRD) Non-Af 35 L, BUN/Creatinine Ratio 42.3 H, Glucose 94, Calcium 12.3 H 03/24/23 06:21: POC Glucose 106 Micro: Microbiology 03/23/23 12:45 Nasal Secretion SARS-CoV-2 Antigen (Rapid) - Final 03/21/23 05:03 Nasal Secretion SARS-CoV-2 Antigen (Rapid) - Final Physical Exam Narrative Alert and oriented x 3, no apparent distress S1, S2, RRR Lung sounds clear anteriorly and posteriorly. No wheezes, rhonchi rales noted Abdomen soft, nontender. 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 Patient was admitted to the hospital with aspiration pneumonia.? Nephrology is following for CITLALY on CKD, hypernatremia, and hypercalcemia. She was transferred to TCU 03/19. CITLALY on CKD stage G3b. 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 The patient is followed in the office by Dr. Abrams. Baseline serum creatinine has been around 1.7 to 1.8 mg/dL. Nonoliguric, mildly hypovolemic CITLALY secondary to volume depletion.? Creatinine peaked at 2.29 mg/dL on 03/07/2023. Renal function improves with volume expansion. SCr now 1.56mg/dL. 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 The patient has been tolerating tube feeds with no residuals.? Serum sodium went up to 153 end of last week and we gave IVF x1 liter and continued water flush 400ml every 4 hours.?Sodium is now 137. Between tube feeding and PEG tube water flush patient has been receiving around 3L daily and she is now taking pureed food and fluids by mouth. Will decrease peg tube flushes to 250ml every 4hours. Hypercalcemia. The patient has a history of primary hyperparathyroidism. Recent rise in serum calcium (peaked 12.6 on 03/17) may be due to discontinuation of IV fluid but there may also have been a few missed doses of cinacalcet. Calcium 12.3 today.? Continue cinacalcet 60 mg 4 times per week. periodically follow labs, ordered for Thursday
[2023-03-24 15:41] VITALS: BP 95/60; PULSE 97; RESP 14; TEMP 36.8; O2SAT 97
[2023-03-24] MEDS: 0.9% Saline Lock 10 ML Syringe IV (17:21)
--- NOTE | 2023-03-24 18:31 | NURSING ---
Residual checked prior to medication administration 110ml of yellow residual noted.
[2023-03-24] MEDS: Vital High Protein 1,000 ML 50 ML GT (18:52)
[2023-03-24 23:30] VITALS: RESP 16
[2023-03-25] MEDS: LORazepam 1 MG Tablet 2 MG GT ×3 (04:39→22:47)
[2023-03-25] MEDS: Tolterodine Tartrate 4 MG CAP.SA PO (04:39)
[2023-03-25] MEDS: Lactulose 20 GM/30 ML UDC GT ×2 (04:39→16:58)
[2023-03-25] MEDS: Sucralfate 1 GM Tablet GT ×4 (04:40→22:51)
[2023-03-25] MEDS: Memantine Hydrochloride 10 MG Tablet GT (04:40)
[2023-03-25] MEDS: lamoTRIgine 100 MG Tablet 200 MG GT (04:40)
[2023-03-25] MEDS: Lansoprazole 15 MG Capsule.DR 30 MG GT ×2 (04:40→16:58)
[2023-03-25] MEDS: Polyethylene Glycol 3350 17 GM PACKET GT (04:43)
[2023-03-25] MEDS: Losartan Potassium 25 MG Tablet GT (04:45)
[2023-03-25] MEDS: Methimazole 5 MG Tablet PO (04:45)
[2023-03-25 06:02] LABS: Hematocrit 26.9 % (37-47); Hemoglobin 8.1 g/dL (12.0-15.0)
[2023-03-25 06:45] LABS: Bedside Glucose 106 mg/dL (74-106)
[2023-03-25] MEDS: Cinacalcet HCl 30 MG Tablet 60 MG PO (08:29)
[2023-03-25] MEDS: Menthol/Lanolin/Calamine/Znox 113 GM Tube 1 APPLIC TOPICAL ×2 (08:29→22:47)
[2023-03-25] MEDS: Nystatin Powder 15gm Bottle 1 APPLIC TOPICAL ×2 (08:29→22:51)
[2023-03-25] MEDS: miSOPROStol 200 MCG Tablet GT ×4 (08:29→22:51)
[2023-03-25 08:45] VITALS: PULSE 94; O2SAT 96
--- NOTE | 2023-03-25 09:10 | NURSING ---
Addendum entered by Avel Powers 03/25/23 09:18: RN called in consult to Dr. Verma. No answer. Left VM with call back number. Original Note: RN noted 700mL residual with PEG assessment. Tube feeding placed on hold. Patient denies any nausea/vomiting. Patient has good bowel sounds. Patient just finished breakfast and pump had just flushed. RN notified Dr. Suazo. Keep pump on HOLD and recheck in [address] consult for Gastro, Dr. Verma.
--- NOTE | 2023-03-25 09:20 | RAD_ITS ---
INDICATION: High Tube feed residual EXAMINATION/TECHNIQUE: X-RAY - XR Abdomen 1 View COMPARISON: FINDINGS: BOWEL GAS PATTERN: There is a moderate amount of gas within the distal ascending, transverse and proximal descending colon. There is gas within the expected region of the rectum. There is a catheter projecting over the left upper abdomen which may be secondary to a percutaneous gastrostomy tube. There appears to be retained contrast within the distal colon possibly within diverticula. FREE AIR: Not assessed on a single supine view. LOWER CHEST: No acute pathology. BONES AND SOFT TISSUES: There are degenerative changes of the lumbar spine associated with a dextroscoliosis. RAD/Abdomen Single View IMPRESSION: Moderate amount of gas within the colon. Electronically Signed: Kajal Wyatt MD at 10:15 EDT ,
--- NOTE | 2023-03-25 10:58 | CASEMGMT ---
Social Work IDT met with patient, and dtr for care plan meeting. Discussed patient's progress in PT/OT/SN. Educated to [facility] insurance with no copays, with NRD 03/31 and continued stay is not guaranteed with each review. Pt is currently on the peg tube and will determine if pt will need to DC home with that nutrition. SW to coordinate those needs at DC. Encouraged to participate in therapy and peg feed training. Will continue to follow. ASHLYN BeachW
--- NOTE | 2023-03-25 12:05 | CASEMGMT ---
Social Work BIMS (10/23) and PHQ-9 (03/05) completed for MDS assessment. Zoe Lombardo MSW HUNTING SALES ASSOCIATE
[2023-03-25 14:49] VITALS: BP 111/64; PULSE 98; RESP 14; TEMP 36.4; O2SAT 100
[2023-03-25] MEDS: Vital High Protein 1,000 ML 50 ML GT (15:36)
--- NOTE | 2023-03-25 15:39 | NURSING ---
Addendum entered by Avel Powers 03/25/23 17:19: Updated Dr. Saenz of 25cc residual with evening meds. No new orders. Original Note: Checked residual, 125cc. Patient denies any nausea/bloating/abdominal pain. Tube feeding restarted per order.
[2023-03-25] MEDS: Ferrous Sulfate 300 MG/5 ML UDC GT (16:58)
--- NOTE | 2023-03-25 23:30 | NURSING ---
Residual checked on patients peg tube, residual was 515, per policy-tube feeding was paused for 6 hours, will recheck residual around 0500
--- NOTE | 2023-03-26 05:00 | NURSING ---
residual rechecked and pt had 10ml, tube feed restarted per policy
[2023-03-26 05:30] VITALS: BP 100/61; PULSE 92
[2023-03-26] MEDS: LORazepam 1 MG Tablet 2 MG GT ×3 (05:38→22:24)
[2023-03-26] MEDS: Polyethylene Glycol 3350 17 GM PACKET GT (05:39)
[2023-03-26] MEDS: Sucralfate 1 GM Tablet GT ×4 (05:39→22:25)
[2023-03-26] MEDS: Memantine Hydrochloride 10 MG Tablet GT (05:39)
[2023-03-26] MEDS: lamoTRIgine 100 MG Tablet 200 MG GT (05:39)
[2023-03-26] MEDS: Tolterodine Tartrate 4 MG CAP.SA PO (05:40)
[2023-03-26] MEDS: Losartan Potassium 25 MG Tablet GT (05:40)
[2023-03-26] MEDS: Lansoprazole 15 MG Capsule.DR 30 MG GT ×2 (05:40→18:01)
[2023-03-26] MEDS: Lactulose 20 GM/30 ML UDC GT ×2 (05:40→18:02)
[2023-03-26 06:03] LABS: Hemoglobin 8.1 g/dL (12.0-15.0)
[2023-03-26 06:40] LABS: Bedside Glucose 130 mg/dL (74-106)
[2023-03-26] MEDS: Menthol/Lanolin/Calamine/Znox 113 GM Tube 1 APPLIC TOPICAL ×2 (08:44→22:25)
[2023-03-26] MEDS: miSOPROStol 200 MCG Tablet GT ×4 (08:44→22:24)
[2023-03-26] MEDS: Nystatin Powder 15gm Bottle 1 APPLIC TOPICAL ×2 (08:45→22:23)
--- NOTE | 2023-03-26 09:30 | NURSING ---
Peg Tube Residual checked 130ml of yellow residual noted and readministered.
--- NOTE | 2023-03-26 09:30 | NURSING ---
Dr. Verma's office called for consult waiting return call.
[2023-03-26] MEDS: Vital High Protein 1,000 ML 50 ML GT (11:11)
--- NOTE | 2023-03-26 11:51 | NURSING ---
Family Teaching completed at this time with on GT. voiced understanding and assisted with holding medication syringe.
--- NOTE | 2023-03-26 14:00 | NURSING ---
G Tube residual checked prior to medication administration 170ml of red tinged residual noted. Per pt just got done eating red Jello.
[2023-03-26 16:00] VITALS: BP 109/74; PULSE 90; RESP 14; TEMP 36.3
--- NOTE | 2023-03-26 17:07 | NURSING ---
Dr. Verma up to see pt N.O. to start Reglan 5mg q6h.
[2023-03-26] MEDS: Metoclopramide 5 MG TABLET GT (18:01)
[2023-03-26] MEDS: 0.9% Saline Lock 10 ML Syringe IV (18:41)
--- NOTE | 2023-03-26 20:16 | CON.PCM.GI_ITS ---
HPI Consult Data Date of Consult: 03/26/23 HPI Narrative Reason for Consultation: gastroparesis and increased tube feedings HPI Narrative: SIMONA HERNANDEZ, is a 72 F who presents [facility] Medical History (Updated 03/19/23 @ 20:[address] Stepan Saenz MD) Acute renal insufficiency CITLALY (acute kidney injury) Anemia Anemia, unspecified Anxiety Back pain Bipolar disorder Bipolar disorder with moderate depression Bladder disease Delirium due to multiple etiologies Diabetes insipidus Dietary restriction Difficulty chewing Dysphagia Erosive esophagitis Falls Former smoker Gastric reflux Gastroparesis Generalized weakness Gram-negative bacteremia History of edema History of gastrostomy tube placement History of gastrostomy tube placement History of herpes zoster History of hiatal hernia Hypercalcemia Hypernatremia Hypertension Post-menopausal Pulmonary emboli Secondary hyperparathyroidism of renal origin Severe dehydration Severe malnutrition Severe malnutrition Stenosis of esophagus Tardive dyskinesia Thyroid disease Unsteady gait UTI (urinary tract infection) Wears glasses Home Medications methimazole 5 mg tablet 5 mg PO SUMOWEFR Thyroid 10/04/20 [History Last Taken 01/14/23] denosumab 60 mg/mL subcutaneous syringe (Prolia) 60 mg subcut .Q6MO osteoporosis 09/05/22 [History Last Taken 08/27/22] oxybutynin chloride 15 mg tablet,extended release 24 hr 15 mg PO DAILY Overactive bladder 09/05/22 [History Last Taken 01/14/23] polyethylene glycol 3350 17 gram/dose oral powder (Miralax) 17 g PO DAILY LAXATIVE 09/05/22 [History Last Taken 09/05/22] ferrous sulfate 325 mg (65 mg iron) tablet 325 mg PO QODAY SUPPLEMENT #30 tabs 12/24/22 [Rx Last Taken 01/13/23] sucralfate 100 mg/mL oral suspension 10 ml PO QACHS GERD 01/30/23 [History Last Taken Unknown] ondansetron HCl 4 mg tablet 4 mg PO Q6H PRN nausea and vomiting #30 tabs 03/06/23 [Rx Last Taken Unknown] cinacalcet 30 mg tablet 60 mg PO SUMOWEFR THYROID 30 days #0 tabs 03/19/23 [Rx Last Taken 01/14/23] lactulose 20 gram/30 mL oral solution 20 g G-tube BID Check with primary doctor 03/19/23 [History Last Taken Unknown] lamotrigine 100 mg tablet 200 mg feeding tube DAILY Bipolar Disorder 03/19/23 [History Last Taken Unknown] lansoprazole 30 mg delayed release,disintegrating tablet 30 mg feeding tube BID GERD 03/19/23 [History Last Taken Unknown] lorazepam 2 mg tablet 2 mg feeding tube TID PRN AGITATION 3 days #6 tabs 03/19/23 [Rx Last Taken Unknown] losartan 25 mg tablet 25 mg feeding tube DAILY BP 03/19/23 [History Last Taken Unknown] memantine 10 mg tablet 10 mg feeding tube DAILY Check with primary doctor 30 days #0 tabs 03/19/23 [Rx Last Taken 01/14/23] misoprostol 200 mcg tablet 200 mcg G-tube 4X/DAYCM Check with primary doctor 03/19/23 [History Last Taken Unknown] Allergy/AdvReac Type Severity Reaction Status Date / Time No Known Allergies Allergy Verified 03/04/23 09:26 Family History Father CVA (cerebral vascular accident) Sister CVA (cerebral vascular accident) Cancer Surgical History History of esophagogastroduodenoscopy (EGD) Hx of esophagogastroduodenoscopy Social History household members: spouse housing: house Smoking Status: Former smoker Tobacco: How many years used: 4 second hand exposure: Yes alcohol intake: never substance use type: does not use what type of physical activity do you participate in: other details: OT [facility] [place] frequency: daily valentina/restoration: Restorationist seatbelt use: always additional social history: Ambulates at baseline without assistive device Medical Records Data Medical Nutrition Assessment Dietitian: Malnutrition Criteria Met Start: 03/20/23 08:07 Freq: Status: Active Protocol: Document 03/25/23 11:37 JESSICA (Rec: 03/25/23 11:37 [email or web address] [email or web address]) Nutrition Malnutrition Evidence of Malnutrition Exists Yes Malnutrition (severe): Chronic Evidenced By Suboptimal Energy Intake ( Severe),Weight Loss (Severe) Clinical Problem Chronic Disease or Condition Related Malnutrition Etiology chronic severe malnutrition related to inadequate energy intake d/t dysphagia Signs/Symptoms as evidenced by unintentional 11.8kg/18% wt loss x 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 Vital HP at 50mL/hour w/ 2500mL H2O flush every 4 hours to provide 1200 calories, 105 g protein, and 2503mL free water/day. 2.) PO diet per RESIDENCE MANAGER ( Previously was regular-pureed/ thin (moist purees for pleasure only). 3.) Recommend transition to bolus feedings/home enteral formula as able prior to discharge. [ End ] Lab / Micro Data Result Diagrams: 03/26/23 05:26 03/24/23 05:27 Labs: Laboratory Results - last 24 hr 03/26/23 05:26: Hgb 8.1 L, Hct 26.0 L 03/26/23 06:18: POC Glucose 130 H Assessment & Plan Assessment/Plan (1) Bilateral pneumonia: PLAN: She has a history of recurrent aspiration pneumonias in the past. She has marked oropharyngeal and esophageal dysphagia from unknown reason. I suspect she has complications from parkinsonism that is contributing to possible upper motor neuron problems contributing to aspiration pneumonia. There is a possibility that she aspirated tube feedings when she was receiving bolos feedings due to gastroparesis. I do not think that she should bolus tube feedings due to the high aspiration risk. (2) Secondary parkinsonism: PLAN: Possibly secondary to bipolar medications specifically years of lithium usage (3) Esophageal stricture: PLAN: Status post dilation in the past. Protonix 40 mg twice daily. (4) Gastric paresis: PLAN: Recommend Reglan therapy 5 mg every 6 hours. She has not exhibited any more signs and symptoms of increased residual feedings. I suspect that she had a high amount of residuals because so was also taking food by mouth. I dont think that she needs to change her PEG into a PEJ aat this time. Charges/Coding Visit Charges Inpatient E&M: [address] [facility] Init L1
--- NOTE | 2023-03-26 22:15 | NURSING ---
Residual checked 50cc, readministered , medication administered, and tube feed restarted per order.
[2023-03-26 23:47] VITALS: RESP 16; O2SAT 96
[2023-03-27] MEDS: Metoclopramide 5 MG TABLET GT ×2 (04:59→16:45)
[2023-03-27 05:50] LABS: Absolute Lymphocyte Count 1.29 X10^3/uL (0.83-4.51); Basophil# 0.01 X10^3/uL; Basophil% 0.2 % (0-1); Eosinophils% 3.1 % (0-5); Hematocrit 25.8 % (37-47); Hemoglobin 7.8 g/dL (12.0-15.0); Lymphocyte # 1.29 X10^3/ul (0.83-4.51); Mean Corp Hgb Conc 30.2 g/dL (32-36); Mean Corpuscular Hgb 28.3 pg (27.0-32.0); Mean Corpuscular Volume 93.5 fL (81-99); Mean Platelet Vol. 9.6 fl (6.2-12.0); Monocyte# 0.93 X10^3/uL; Monocyte% 14.4 % (0-10); NRBC Flagged by Analyzer 0 % (0-5); Neutrophil # 3.97 X10^3/uL (2.7-7.7); Neutrophil % 61.7 % (47-70); Platelet Count 324 K/mm3 (150-450); RBC Distribution Width CV 15.4 % (11.6-14.6); RBC Distribution Width SD 52.7 fl (35.1-43.9); Red Blood Count 2.76 M/mm3 (4.2-5.4); White Blood Count 6.4 K/mm3 (4.4-11.0)
[2023-03-27] MEDS: LORazepam 1 MG Tablet 2 MG GT ×3 (06:00→21:57)
[2023-03-27] MEDS: Tolterodine Tartrate 4 MG CAP.SA PO (06:02)
[2023-03-27] MEDS: lamoTRIgine 100 MG Tablet 200 MG GT (06:02)
[2023-03-27] MEDS: Lansoprazole 15 MG Capsule.DR 30 MG GT ×2 (06:02→16:45)
[2023-03-27] MEDS: Losartan Potassium 25 MG Tablet GT (06:03)
[2023-03-27] MEDS: Lactulose 20 GM/30 ML UDC GT ×2 (06:03→16:45)
[2023-03-27] MEDS: Methimazole 5 MG Tablet PO (06:04)
[2023-03-27] MEDS: Memantine Hydrochloride 10 MG Tablet GT (06:04)
[2023-03-27] MEDS: Polyethylene Glycol 3350 17 GM PACKET GT (06:04)
[2023-03-27] MEDS: Vital High Protein 1,000 ML 50 ML GT (06:16)
[2023-03-27 06:18] LABS: Albumin, Serum 2.4 g/dL (3.2-5.0); BUN 72 mg/dL (7-18); BUN/Creat Ratio 42.1 RATIO (10-20); Calcium,Total 12.3 mg/dL (8.5-10.1); Chloride 101 mmol/L (98-107); Creatinine, Serum 1.71 mg/dL (0.55-1.02); EST Glomerular Filtration Rate 31 mL/min (>60); Est Glom Filt Rate - Afr Amer 38 mL/min (>60); Estimated Creatinine Clearance 25.64 ml/min; Glucose 119 mg/dL (74-106); Phosphorus 4.2 mg/dL (2.5-4.9); Potassium 4.6 mmol/L (3.5-5.1); Sodium Level 135 mmol/L (136-145)
[2023-03-27 06:26] LABS: Bedside Glucose 107 mg/dL (74-106)
[2023-03-27] MEDS: miSOPROStol 200 MCG Tablet GT ×4 (08:49→22:01)
[2023-03-27] MEDS: Menthol/Lanolin/Calamine/Znox 113 GM Tube 1 APPLIC TOPICAL ×2 (08:49→22:01)
[2023-03-27] MEDS: Cinacalcet HCl 30 MG Tablet 60 MG PO (08:49)
[2023-03-27] MEDS: Sucralfate 1 GM Tablet GT ×4 (08:49→22:01)
[2023-03-27] MEDS: Nystatin Powder 15gm Bottle 1 APPLIC TOPICAL ×2 (08:49→22:01)
--- NOTE | 2023-03-27 09:09 | NURSING ---
peg tube residual 260cc, holding for 1 hour and will recheck. pt does state she feels full. She drank apple juice and was unable to eat yogurt and became tearful. pt would like to eat brkfst. will update addiction medicine physician and speech therapist
--- NOTE | 2023-03-27 09:46 | NURSING ---
Dyana from nephrology here to see pt, at side
--- NOTE | 2023-03-27 09:51 | PN.RENAL_ITS ---
Subjective Subjective Patient sitting in chair. at bedside. No complaints. Denies any nausea. Reports tolerating water. Objective Data Objective Data Vital Signs: Vital Signs Temp Pulse Resp BP Pulse Ox O2 Del Method 97.4 F L 90 16 109/74 96 Room Air 03/26/23 16:00 03/26/23 16:00 03/26/23 23:47 03/26/23 16:00 03/26/23 23:47 03/26/23 23:47 Oxygen Delivery Method Room Air Weight: 55.429 kg Body Mass Index (BMI) 20.3 Intake & Output: Intake and Output for Last 24 Hours 03/25/23 03/26/23 03/27/23 23:59 23:59 23:59 Intake Total 5477.17 / 5477.17 2279.17 / 2279.17 1194.17 / 1194.17 Output Total 1200 / 1200 1100 / 1100 1100 / 1100 Balance 4277.17 / 4277.17 1179.17 / 1179.17 94.17 / 94.17 Medical Nutrition Assessment Dietitian: Malnutrition Criteria Met Start: 03/20/23 08:07 Freq: Status: Active Protocol: Document 03/25/23 11:37 SLA (Rec: 03/25/23 11:37 SLA [id number]) Nutrition Malnutrition Evidence of Malnutrition Exists Yes Malnutrition (severe): Chronic Evidenced By Suboptimal Energy Intake ( Severe),Weight Loss (Severe) Clinical Problem Chronic Disease or Condition Related Malnutrition Etiology chronic severe malnutrition related to inadequate energy intake d/t dysphagia Signs/Symptoms 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 Vital HP at 50mL/hour w/ 2500mL H2O flush every 4 hours to provide 1200 calories, 105 g protein, and 2503mL free water/day. 2.) PO diet per UNEMPLOYMENT INSPECTOR ( Previously was regular-pureed/ thin (moist purees for pleasure only). 3.) Recommend transition to bolus feedings/home enteral formula as able prior to discharge. [ End ] Lab / Micro Data Result Diagrams: 03/27/23:23 03/27/23 05:23 Labs: Laboratory Results - last 24 hr 03/27/23 05:23: WBC 6.4, RBC 2.76 L, Hgb 7.8 L, Hct 25.8 L, MCV 93.5, MCH 28.3, MCHC 30.2 L, RDW Std Deviation 52.7 H, RDW Coeff of Lee 15.4 H, Plt Count 324, MPV 9.6, Immature Gran % (Auto) 0.600, Neut % (Auto) 61.7, Lymph % (Auto) 20.0, [place] % (Auto) 14.4 H, Eos % (Auto) 3.1, Baso % (Auto) 0.2, Absolute Neuts (auto) 4.0, Absolute Lymphs (auto) 1.29, Nucleated RBC % 0 03/27/23 05:23: Sodium 135 L, Potassium 4.6, Chloride 101, Carbon Dioxide 30.0, BUN 72 H, Creatinine 1.71 H, Estim Creat Clear Calc 25.64, Est GFR (MDRD) Af Amer 38 L, Est GFR (MDRD) Non-Af 31 L, BUN/Creatinine Ratio 42.1 H, Glucose 119 H, Calcium 12.3 H, Phosphorus 4.2, Albumin 2.4 L 03/27/23 05:23: PTH Intact 52.0 03/27/23 06:01: POC Glucose 107 H Micro: Microbiology 03/23/23 12:45 Nasal Secretion SARS-CoV-2 Antigen (Rapid) - Final 03/21/23 05:03 Nasal Secretion SARS-CoV-2 Antigen (Rapid) - Final Physical Exam Narrative Alert and oriented x 3, no apparent distress S1, S2, RRR Lung sounds clear anteriorly and posteriorly. No wheezes, rhonchi rales noted Abdomen soft, nontender. 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 Patient was admitted to the hospital with aspiration pneumonia.? Nephrology is following for CITLALY on CKD, hypernatremia, and hypercalcemia. She was transferred to TCU 03/19. CITLALY on CKD stage G3b. 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 The patient is followed in the office by Dr. Abrams. Baseline serum creatinine has been around 1.7 to 1.8 mg/dL. Nonoliguric, mildly hypovolemic CITLALY secondary to volume depletion.? Creatinine peaked at 2.29 mg/dL on 03/07/2023. Renal function improves with volume expansion. SCr now 1.71mg/dL. 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 Serum sodium went up to 153 last week and we gave IVF x1 liter and continued water flush 400ml every 4 hours.?Sodium then went to 137. Between tube feeding and PEG tube water flush patient has been receiving around 3L daily and she is now taking pureed food and fluids by mouth. We decreased peg tube flushes to 250ml every 4hours. Sodium is now 135, patient is drinking fluids by mouth without any difficulty. We will decrease fluid flush to 200 mL every 4 hours. Dietitian is also following. Hypercalcemia. Patient has a history of primary hyperparathyroidism. Rise in serum calcium (peaked 12.6 on 03/17) possibly from stopping IV fluid but there may also have been a few missed doses of cinacalcet. Calcium 12.3, PTH 52.? Continue cinacalcet 60 mg 4 times per week. periodically follow labs
--- NOTE | 2023-03-27 09:55 | NURSING ---
new order to decrease water flushes to 200cc every 4 hrs d/t na level 135. also would like pt to slow down on free water to 1.5 to 2 liters a day. will educate and remind pt throughout day as well.
--- NOTE | 2023-03-27 10:24 | NURSING ---
Addendum entered by Maria L Victoria 03/27/23 10:31: spoke with rashawn precision lens grinder apprentice, she recommending restart tube feeds at 20cc and increase by 10cc every 12 hrs to goal rate of 50cc/hr. Original Note: residual rechecked 260cc light yellow liquid remains, dr oliver notified, wants dr libra paged. case operator paged aylin regan MD. awaiting return call.
[2023-03-27] MEDS: Tuberculin,Purif.prot.deriv. 50 TU/ML Vial 0.1 ML ID (10:58)
--- NOTE | 2023-03-27 11:18 | NURSING ---
very concerned and anxious about going home and maintaining tube feed. many questions about how she is suppose to go to and to [facility] [place] or outside, mentioned possibility of nocturnal feeds only. spoke with failure analysis technician & she wants pt tolerating tube feeds before the switch is made.
[2023-03-27 11:35] VITALS: PULSE 94; RESP 16; O2SAT 95
[2023-03-27 14:28] VITALS: BP 87/46; PULSE 98; RESP 16; TEMP 36.9; O2SAT 97
[2023-03-27] MEDS: Ferrous Sulfate 300 MG/5 ML UDC GT (16:45)
--- NOTE | 2023-03-27 16:54 | NURSING ---
0 residual this evening, staff to recheck at 2300 for increase in tube feeding by 10cc/hr. pt sitting up in recliner, at side. call light in reach.
--- NOTE | 2023-03-27 23:30 | NURSING ---
gastric residual 75mL
--- NOTE | 2023-03-27 23:30 | NURSING ---
gastric residual from peg tube 75mL clear yellow in color. Tube feed increased by 10mL per order, now at 30mL/hr. Patient denies stomach discomfort. Denies pain. Denies requests. Call light in reach.
[2023-03-28] MEDS: Metoclopramide 5 MG TABLET GT ×2 (04:51→17:40)
[2023-03-28] MEDS: Vital High Protein 1,000 ML 30 ML GT (04:55)
[2023-03-28 06:18] LABS: Absolute Lymphocyte Count 1.59 X10^3/uL (0.83-4.51); Absolute Neutrophil Count 3.9 X10^3/uL (2.0-7.7); Basophil# 0.02 X10^3/uL; Basophil% 0.3 % (0-1); Hematocrit 27.3 % (37-47); Hemoglobin 8.1 g/dL (12.0-15.0); Lymphocyte # 1.59 X10^3/ul (0.83-4.51); Lymphocyte % 23.7 % (19-41); Mean Corp Hgb Conc 29.7 g/dL (32-36); Mean Corpuscular Hgb 27.9 pg (27.0-32.0); Mean Corpuscular Volume 94.1 fL (81-99); Mean Platelet Vol. 9.4 fl (6.2-12.0); Monocyte# 0.92 X10^3/uL; Monocyte% 13.7 % (0-10); NRBC Flagged by Analyzer 0 % (0-5); Neutrophil # 3.94 X10^3/uL (2.7-7.7); Neutrophil % 58.9 % (47-70); Platelet Count 325 K/mm3 (150-450); RBC Distribution Width SD 51.2 fl (35.1-43.9); White Blood Count 6.7 K/mm3 (4.4-11.0)
[2023-03-28] MEDS: Lactulose 20 GM/30 ML UDC GT ×2 (06:35→17:41)
[2023-03-28] MEDS: Lansoprazole 15 MG Capsule.DR 30 MG GT ×2 (06:35→17:40)
[2023-03-28] MEDS: LORazepam 1 MG Tablet 2 MG GT ×3 (06:37→22:53)
[2023-03-28] MEDS: lamoTRIgine 100 MG Tablet 200 MG GT (06:37)
[2023-03-28] MEDS: Tolterodine Tartrate 4 MG CAP.SA PO (06:37)
[2023-03-28] MEDS: Losartan Potassium 25 MG Tablet GT (06:38)
[2023-03-28] MEDS: Polyethylene Glycol 3350 17 GM PACKET GT (06:38)
[2023-03-28] MEDS: Sucralfate 1 GM Tablet GT ×4 (06:38→22:46)
[2023-03-28 06:45] LABS: Bedside Glucose 99 mg/dL (74-106)
[2023-03-28 07:09] LABS: Anion Gap 5 (5-15); BUN 67 mg/dL (7-18); BUN/Creat Ratio 37.6 RATIO (10-20); Calcium,Total 13.1 mg/dL (8.5-10.1); Chloride 102 mmol/L (98-107); Creatinine, Serum 1.78 mg/dL (0.55-1.02); EST Glomerular Filtration Rate 30 mL/min (>60); Est Glom Filt Rate - Afr Amer 36 mL/min (>60); Estimated Creatinine Clearance 24.63 ml/min; Glucose 103 mg/dL (74-106); Potassium 4.4 mmol/L (3.5-5.1); Sodium Level 138 mmol/L (136-145)
--- NOTE | 2023-03-28 07:26 | NURSING ---
Addendum entered by Yisel Chu 03/28/23 07:32: oncoming dayshift RN aware of calcium level and paged nephrology at this time Original Note: notified of critical calcium level, new order to notify nephrology
[2023-03-28] MEDS: Memantine Hydrochloride 10 MG Tablet GT (09:09)
[2023-03-28] MEDS: Cinacalcet HCl 30 MG Tablet 60 MG PO (09:09)
[2023-03-28] MEDS: miSOPROStol 200 MCG Tablet GT ×4 (09:14→22:51)
--- NOTE | 2023-03-28 09:38 | NURSING ---
Critical Calcium level Dr. Abrams paged and received orders to increase Sensipar to daily, NS 100ml/hr continuous and recheck BMP 03/29/23. Orders read back.
[2023-03-28] MEDS: 0.9% Normal Saline 1,000 ML 100 ML IV ×2 (09:45→21:01)
[2023-03-28] MEDS: Menthol/Lanolin/Calamine/Znox 113 GM Tube 1 APPLIC TOPICAL ×2 (11:59→22:48)
[2023-03-28] MEDS: Nystatin Powder 15gm Bottle 1 APPLIC TOPICAL ×2 (11:59→22:47)
--- NOTE | 2023-03-28 12:01 | NURSING ---
Residual checked 200ml of yellow residual noted. Increased Vital HP to 40ml/hr.
[2023-03-28 15:55] VITALS: BP 110/66; PULSE 86; RESP 15; TEMP 37; O2SAT 94
--- NOTE | 2023-03-28 18:41 | NURSING ---
Residual checked 180ml of yellow residual noted. Will continue to monitor.
[2023-03-29 04:36] LABS: Anion Gap 5 (5-15); BUN 61 mg/dL (7-18); BUN/Creat Ratio 36.7 RATIO (10-20); Calcium,Total 12.2 mg/dL (8.5-10.1); Chloride 107 mmol/L (98-107); Creatinine, Serum 1.66 mg/dL (0.55-1.02); EST Glomerular Filtration Rate 32 mL/min (>60); Est Glom Filt Rate - Afr Amer 39 mL/min (>60); Estimated Creatinine Clearance 26.41 ml/min; Glucose 110 mg/dL (74-106); Potassium 4.5 mmol/L (3.5-5.1); Sodium Level 142 mmol/L (136-145)
[2023-03-29 05:00] VITALS: BP 120/73; PULSE 89
[2023-03-29] MEDS: LORazepam 1 MG Tablet 2 MG GT ×3 (05:16→23:09)
[2023-03-29] MEDS: Lactulose 20 GM/30 ML UDC GT ×2 (05:17→17:43)
[2023-03-29] MEDS: Cinacalcet HCl 30 MG Tablet 60 MG PO (05:17)
[2023-03-29] MEDS: Polyethylene Glycol 3350 17 GM PACKET GT (05:17)
[2023-03-29] MEDS: Methimazole 5 MG Tablet PO (05:18)
[2023-03-29] MEDS: Memantine Hydrochloride 10 MG Tablet GT (05:18)
[2023-03-29] MEDS: Lansoprazole 15 MG Capsule.DR 30 MG GT ×2 (05:18→17:43)
[2023-03-29] MEDS: lamoTRIgine 100 MG Tablet 200 MG GT (05:19)
[2023-03-29] MEDS: Losartan Potassium 25 MG Tablet GT (05:20)
[2023-03-29] MEDS: Tolterodine Tartrate 4 MG CAP.SA PO (05:20)
[2023-03-29] MEDS: Metoclopramide 5 MG TABLET GT (05:20)
[2023-03-29] MEDS: Sucralfate 1 GM Tablet GT ×4 (05:20→23:07)
[2023-03-29] MEDS: Vital High Protein 1,000 ML 40 ML GT (05:29)
[2023-03-29 06:51] LABS: Bedside Glucose 100 mg/dL (74-106)
[2023-03-29] MEDS: 0.9% Normal Saline 1,000 ML 100 ML IV ×2 (07:54→17:44)
[2023-03-29] MEDS: miSOPROStol 200 MCG Tablet GT ×4 (07:54→23:10)
[2023-03-29] MEDS: Menthol/Lanolin/Calamine/Znox 113 GM Tube 1 APPLIC TOPICAL ×2 (11:44→23:09)
[2023-03-29] MEDS: Nystatin Powder 15gm Bottle 1 APPLIC TOPICAL ×2 (11:45→23:08)
--- NOTE | 2023-03-29 12:00 | NURSING ---
Peg Tube Residual checked 80ml of yellow residual noted and returned. in room and questions and teaching done for medication administration in PEG.
--- NOTE | 2023-03-29 13:58 | PN.RENAL_ITS ---
Subjective Subjective No new complaints Objective Data Objective Data Vital Signs: Vital Signs Temp Pulse Resp BP Pulse Ox O2 Del Method 98.6 F 89 15 120/73 94 Room Air 03/28/23 15:55 03/29/23 05:00 03/28/23 15:55 03/29/23 05:00 03/28/23 15:55 03/29/23 10:00 Oxygen Delivery Method Room Air Weight: 55.429 kg Body Mass Index (BMI) 20.3 Intake & Output: Intake and Output for Last 24 Hours 03/27/23 03/28/23 03/29/23 23:59 23:59 23:59 Intake Total 1434.17 / 1434.17 1812.5 / 1812.5 2179.33 / 2179.33 Output Total 2100 / 2100 700 / 700 Balance -665.83 / -665.83 1112.5 / 1112.5 2179.33 / 2179.33 Medical Nutrition Assessment Dietitian: Malnutrition Criteria Met Start: 03/20/23 08:07 Freq: Status: Active Protocol: Document 03/27/23 15:33 SLA (Rec: 03/27/23 15:33 SLA [id number]) Nutrition Malnutrition Evidence of Malnutrition Exists Yes Malnutrition (severe): Chronic Evidenced By Suboptimal Energy Intake ( Severe),Weight Loss (Severe) Clinical Problem Chronic Disease or Condition Related Malnutrition Etiology chronic severe malnutrition related to inadequate energy intake d/t dysphagia Signs/Symptoms 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 Vital HP at 50mL/ hour w/ 200mL H2O flush every 4 hours to provide 1200 calories, 105 g protein, and 2203mL free water/day. 2.) PO diet per SENIOR AUDITOR ( Previously was regular-pureed/ thin (moist purees for pleasure only). 3.) Recommend transition to nocturnal feedings/home enteral formula as able prior to discharge. [ End ] Lab / Micro Data Result Diagrams: 03/28/23 05:58 03/29/23 03:15 Labs: Laboratory Results - last 24 hr 03/29/23 03:15: Sodium 142, Potassium 4.5, Chloride 107, Carbon Dioxide 30.0, Anion Gap 5, BUN 61 H, Creatinine 1.66 H, Estim Creat Clear Calc 26.41, Est GFR (MDRD) Af Amer 39 L, Est GFR (MDRD) Non-Af 32 L, BUN/Creatinine Ratio 36.7 H, Glucose 110 H, Calcium 12.2 H 03/29/23 06:23: POC Glucose 100 Micro: Microbiology 03/23/23 12:45 Nasal Secretion SARS-CoV-2 Antigen (Rapid) - Final 03/21/23 05:03 Nasal Secretion SARS-CoV-2 Antigen (Rapid) - Final Physical Exam Narrative Alert and oriented x 3, no apparent distress S1, S2, RRR Lung sounds clear anteriorly and posteriorly. No wheezes, rhonchi rales noted Abdomen soft, nontender. 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 Patient was admitted to the hospital with aspiration pneumonia.? Nephrology is following for CITLALY on CKD, hypernatremia, and hypercalcemia. She was transferred to TCU 03/19. CITLALY on CKD stage G3b. 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 Baseline serum creatinine has been around 1.7 to 1.8 mg/dL. 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 Sodium levels have normalized Hypercalcemia. Patient has a history of primary hyperparathyroidism. Has been on Cinacalcet. Calcium continues to increase. Corrected calcium today is almost 14. Phosphate is normal. PTH around 52, this is better than before. We will check a 25- hydroxy vitamin D, 1, 25 hydroxy vitamin D. Serum protein electrophoresis negative. [place] lambda light chain ratio was okay. She does follow with endocrinology in [place]. We may have to repeat the parathyroid scan as outpatient. For now I will increase Cinacalcet to 90 mg once a day. Continue fluids 1 more day. It is possible that she has some component of hypercalcemia of immobilization. If calcium continues to stay high, we may give her a dose of bisphosphonate IV.
[2023-03-29 15:57] VITALS: BP 136/69; PULSE 80; RESP 16; TEMP 36.7; O2SAT 96
[2023-03-29] MEDS: Ferrous Sulfate 300 MG/5 ML UDC GT (17:43)
--- NOTE | 2023-03-29 18:00 | NURSING ---
Residual checked 18ml of yellow residual noted.
--- NOTE | 2023-03-29 23:00 | NURSING ---
Tube feed residual 40ml of light green fluid of pudding consistency. Denies any abdominal discomfort. Will continue to monitor.
--- NOTE | 2023-03-30 04:45 | NURSING ---
Late entry for 03/28/23 at 2230: PEG tube residual 100ml, regalado colored. TF increased to 50ml/hr. Denies any abdominal discomfort. Will continue to monitor.
--- NOTE | 2023-03-30 04:47 | NURSING ---
Late entry for 03/29/23 at 0515: Tube feed residual 0ml. Will continue to monitor.
[2023-03-30] MEDS: 0.9% Normal Saline 1,000 ML 100 ML IV (05:04)
[2023-03-30] MEDS: Polyethylene Glycol 3350 17 GM PACKET GT (05:06)
[2023-03-30] MEDS: Cinacalcet HCl 30 MG Tablet 90 MG PO (05:06)
[2023-03-30] MEDS: Tolterodine Tartrate 4 MG CAP.SA PO (05:07)
[2023-03-30] MEDS: Lactulose 20 GM/30 ML UDC GT ×2 (05:07→16:17)
[2023-03-30] MEDS: lamoTRIgine 100 MG Tablet 200 MG GT (05:07)
[2023-03-30] MEDS: Memantine Hydrochloride 10 MG Tablet GT (05:08)
[2023-03-30] MEDS: Lansoprazole 15 MG Capsule.DR 30 MG GT ×2 (05:08→16:17)
[2023-03-30] MEDS: Methimazole 5 MG Tablet PO (05:08)
[2023-03-30] MEDS: Sucralfate 1 GM Tablet GT ×4 (05:09→21:47)
[2023-03-30] MEDS: LORazepam 1 MG Tablet 2 MG GT ×3 (05:14→21:46)
[2023-03-30] MEDS: Vital High Protein 1,000 ML 40 ML GT (05:16)
[2023-03-30] MEDS: Losartan Potassium 25 MG Tablet GT (05:34)
[2023-03-30 06:50] LABS: Bedside Glucose 89 mg/dL (74-106)
[2023-03-30 07:01] LABS: Anion Gap 5 (5-15); BUN 59 mg/dL (7-18); BUN/Creat Ratio 39.9 RATIO (10-20); Calcium,Total 11.8 mg/dL (8.5-10.1); Chloride 114 mmol/L (98-107); Creatinine, Serum 1.48 mg/dL (0.55-1.02); EST Glomerular Filtration Rate 37 mL/min (>60); Est Glom Filt Rate - Afr Amer 44 mL/min (>60); Estimated Creatinine Clearance 29.62 ml/min; Glucose 121 mg/dL (74-106); Potassium 4.4 mmol/L (3.5-5.1); Sodium Level 148 mmol/L (136-145)
--- NOTE | 2023-03-30 07:55 | NURSING ---
paged Dr Abrams regarding labs- NA 148 this AM
[2023-03-30] MEDS: miSOPROStol 200 MCG Tablet GT ×4 (08:16→21:47)
[2023-03-30] MEDS: Menthol/Lanolin/Calamine/Znox 113 GM Tube 1 APPLIC TOPICAL ×2 (08:17→21:47)
[2023-03-30] MEDS: Nystatin Powder 15gm Bottle 1 APPLIC TOPICAL ×2 (08:17→22:03)
[2023-03-30 08:39] LABS: Vitamin D,25 Hydroxy 74.4 ng/mL
--- NOTE | 2023-03-30 08:41 | MDS.RN ---
Information for the mds was obtained from review of the clinical record, interview of resident, staff, and direct observation of resident's care.
[2023-03-30] MEDS: 0.45% Normal Saline 1,000 ML 100 ML IV ×2 (10:15→21:43)
--- NOTE | 2023-03-30 10:17 | PCM.PN.REN ---
Documented by User: AMPARO Miller 03/30/23 10:26 Subjective Subjective Up in chair. No overnight events. at bedside. No N/V/D. Objective Data Objective Data Vital Signs: Vital Signs Temp Pulse Resp BP Pulse Ox O2 Del Method 98.1 F 80 16 136/69 H 96 Room Air 03/29/23 15:57 03/29/23 15:57 03/29/23 15:57 03/29/23 15:57 03/29/23 15:57 03/29/23 15:57 Oxygen Delivery Method Room Air Weight: 55.429 kg Body Mass Index (BMI) 20.3 Intake & Output: Intake and Output for Last 24 Hours 03/28/23 03/29/23 03/30/23 23:59 23:59 23:59 Intake Total 1812.5 / 1812.5 3282.66 / 3282.66 2611.33 / 2611.33 Output Total 700 / 700 300 / 300 1100 / 1100 Balance 1112.5 / 1112.5 2982.66 / 2982.66 1511.33 / 1511.33 Medical Nutrition Assessment Dietitian: Malnutrition Criteria Met Start: 03/20/23 08:07 Freq: Status: Active Protocol: Document 03/27/23 15:33 SLA (Rec: 03/27/23 15:33 [facility] [id number]) Nutrition Malnutrition Evidence of Malnutrition Exists Yes Malnutrition (severe): Chronic Evidenced By Suboptimal Energy Intake ( Severe),Weight Loss (Severe) Clinical Problem Chronic Disease or Condition Related Malnutrition Etiology chronic severe malnutrition related to inadequate energy intake d/t dysphagia Signs/Symptoms as 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 Vital HP at 50mL/ hour w/ 200mL H2O flush every 4 hours to provide 1200 calories, 105 g protein, and 2203mL free water/day. 2.) PO diet per AUTO CRANE DRIVER ( Previously was regular-pureed/ thin (moist purees for pleasure only). 3.) Recommend transition to nocturnal feedings/home enteral formula as able prior to discharge. [ End ] Lab / Micro Data Result Diagrams: 03/28/23 05:58 03/30/23 05:33 Labs: Laboratory Results - last 24 hr 03/30/23 05:33: Vitamin D 25-Hydroxy 74.4 03/30/23 05:33: Sodium 148 H, Potassium 4.4, Chloride 114 H, Carbon Dioxide 29.0, Anion Gap 5, BUN 59 H, Creatinine 1.48 H, Estim Creat Clear Calc 29.62, Est GFR (MDRD) Af Amer 44 L, Est GFR (MDRD) Non-Af 37 L, BUN/Creatinine Ratio 39.9 H, Glucose 121 H, Calcium 11.8 H 03/30/23 06:12: POC Glucose 89 Micro: Microbiology 03/23/23 12:45 Nasal Secretion SARS-CoV-2 Antigen (Rapid) - Final 03/21/23 05:03 Nasal Secretion SARS-CoV-2 Antigen (Rapid) - Final Physical Exam Narrative Alert and oriented x 3, no apparent distress S1, S2, RRR Lung sounds clear anteriorly and posteriorly. No wheezes, rhonchi rales noted Abdomen soft, nontender. 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 Patient was admitted to the hospital with aspiration pneumonia.? Nephrology is following for CITLALY on CKD, hypernatremia, and hypercalcemia. She was transferred to TCU 03/19. CITLALY on CKD stage G3b. 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 Overall renal function stable and last SCr 1.48mg/dL. ? Baseline serum creatinine has been around 1.7 to 1.8 mg/dL. 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 Sodium 148, has been on IVF NS due to elevated Calcium. Change IVF to 1/2NS today. Continue free water flushes and oral intake of ~1.5-2L/day. Hypercalcemia. Patient has a history of primary hyperparathyroidism. Has been on Cinacalcet (dose was 30mg 4xweekly). Calcium increased to 13.1, Corrected calcium was almost 14. Started patient on IVF, NS. Today serum Calcium 11.8, sodium 148. Continue on IVF for another day, 1/2NS as ordered. Phosphate is normal. PTH around 52, this is better than before. 25-hydroxy vitamin D is 74.4. Vit D 1,25 hydroxy is pending. Serum protein electrophoresis negative. [place] lambda light chain ratio was okay. She does follow with endocrinology in [place]. We may have to repeat the parathyroid scan as outpatient. She has appointment with endocrine on 05/05. For now continue on Cinacalcet 90 mg once a day. It is possible that she has some component of hypercalcemia of immobilization. Documented by User: Dr. 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 Patient was admitted to the hospital with aspiration pneumonia.? Nephrology is following for CITLALY on CKD, hypernatremia, and hypercalcemia. She was transferred to TCU 03/19. CITLALY on CKD stage G3b. 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 Overall renal function stable and last SCr 1.48mg/dL. ? Baseline serum creatinine has been around 1.7 to 1.8 mg/dL. 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 Sodium 148, has been on IVF NS due to elevated Calcium. Change IVF to 1/2NS today. Continue free water flushes and oral intake of ~1.5-2L/day. Hypercalcemia. Patient has a history of primary hyperparathyroidism. Has been on Cinacalcet (dose was 30mg 4xweekly). Calcium increased to 13.1, Corrected calcium was almost 14. Started patient on IVF, NS. Today serum Calcium 11.8, sodium 148. Continue on IVF for another day, 1/2NS as ordered. Phosphate is normal. PTH around 52, this is better than before. 25-hydroxy vitamin D is 74.4. Vit D 1,25 hydroxy is pending. Serum protein electrophoresis negative. [place] lambda light chain ratio was okay. She does follow with endocrinology in [place]. We may have to repeat the parathyroid scan as outpatient. She has appointment with endocrine on 05/05. For now continue on Cinacalcet 90 mg once a day. It is possible that she has some component of hypercalcemia of immobilization. Agree with above. Change IV fluids to half-normal saline today. We might give her a dose of bisphosphonate if she continues to have hypercalcemia.
--- NOTE | 2023-03-30 10:23 | NURSING ---
dr Abrams returned call, new order for 0.45 NS at 100cc. stop 0.9 ns. pt and updated.
--- NOTE | 2023-03-30 11:14 | NURSING ---
0 residual at this time. pt denies nausea. Sitting in chair, at bedside.
[2023-03-30 16:00] VITALS: BP 132/77; PULSE 53; RESP 16; TEMP 35.7; O2SAT 95
--- NOTE | 2023-03-30 16:27 | NURSING ---
Addendum entered by Maria L Victoria 03/30/23 17:21: dr oliver dc'd reglan, updated and very pleased Original Note: 0 cc residual at this time. medications administered. pt sitting in recliner chair, at side. held reglan per request, feels pt tremoring started. note left for dr oliver.
[2023-03-30 21:00] VITALS: PULSE 86; RESP 16; O2SAT 98
[2023-03-31] MEDS: Vital High Protein 1,000 ML 50 ML GT (03:51)
--- NOTE | 2023-03-31 04:00 | NURSING ---
peg residual 10mL cloudy yellow in color, tube feed infusing per order at 50cc/hr, patient tolerating well, no c/o gastric distress. Peg insertion site clean & dry, without redness/drainage or edema. IV fluids infusing per order, IV site to right hand clean/dry/intact. Denies requests. Call light in reach.
[2023-03-31 06:08] LABS: Albumin, Serum 2.5 g/dL (3.2-5.0); BUN 55 mg/dL (7-18); BUN/Creat Ratio 37.4 RATIO (10-20); Calcium,Total 12.2 mg/dL (8.5-10.1); Chloride 110 mmol/L (98-107); Creatinine, Serum 1.47 mg/dL (0.55-1.02); EST Glomerular Filtration Rate 37 mL/min (>60); Est Glom Filt Rate - Afr Amer 45 mL/min (>60); Estimated Creatinine Clearance 29.83 ml/min; Glucose 107 mg/dL (74-106); Phosphorus 3.6 mg/dL (2.5-4.9); Potassium 4.2 mmol/L (3.5-5.1); Sodium Level 146 mmol/L (136-145)
[2023-03-31] MEDS: LORazepam 1 MG Tablet 2 MG GT ×3 (06:12→22:17)
[2023-03-31] MEDS: Lansoprazole 15 MG Capsule.DR 30 MG GT ×2 (06:13→16:22)
[2023-03-31] MEDS: Lactulose 20 GM/30 ML UDC GT ×2 (06:14→16:21)
[2023-03-31] MEDS: Losartan Potassium 25 MG Tablet GT (06:15)
[2023-03-31] MEDS: lamoTRIgine 100 MG Tablet 200 MG GT (06:15)
[2023-03-31] MEDS: Sucralfate 1 GM Tablet GT ×2 (06:15→11:40)
[2023-03-31] MEDS: Memantine Hydrochloride 10 MG Tablet GT (06:15)
[2023-03-31] MEDS: Cinacalcet HCl 30 MG Tablet 90 MG PO (06:16)
[2023-03-31] MEDS: Polyethylene Glycol 3350 17 GM PACKET GT (06:17)
[2023-03-31] MEDS: Tolterodine Tartrate 4 MG CAP.SA PO (06:19)
[2023-03-31 06:41] LABS: Bedside Glucose 111 mg/dL (74-106)
[2023-03-31] MEDS: miSOPROStol 200 MCG Tablet GT ×4 (07:45→22:16)
[2023-03-31] MEDS: Nystatin Powder 15gm Bottle 1 APPLIC TOPICAL ×2 (07:47→22:16)
[2023-03-31] MEDS: Menthol/Lanolin/Calamine/Znox 113 GM Tube 1 APPLIC TOPICAL ×2 (07:48→22:16)
--- NOTE | 2023-03-31 08:01 | NURSING ---
400cc residual orange colored liquid from G tube this AM. Will hold pump for 1 hour and recheck residual. pt Reglan was stopped yesterday per her request d/t worsening tremors. Will update Dr Bayron office today & wildlife ecology professor
[2023-03-31] MEDS: 0.45% Normal Saline 1,000 ML 100 ML IV (08:33)
--- NOTE | 2023-03-31 09:49 | NURSING ---
held tube feed for 2 hrs, rechecked 235cc yellow colored liquid. updated, at chairside. spoke with inlayer, wants restarted at 20cc/hr for now.
--- NOTE | 2023-03-31 09:53 | NS ---
Addendum entered and electronically signed by Rufina Manrique 03/31/23 15:33: Reviewed medications w/ pharmacist. Pt is on cytotec and carafate. Carafate was d/c'd during acute admission as it cannot be given w/o holding enteral nutrition. Per RN Maria L, Carafate has been given PO and EN has not been held. Discussed w/ ALEXEY Lisa who will contact Dr. Verma and Dr. Saenz. Recommend medication adjustment, resumption of EN via PEG, and monitoring of tolerance. If unable to establish tolerance w/ medication adjustments, may need to consider PEJ placement as Jeffrey is strongly against resumption of reglan. Res is currently on lowest fat/fiber formula available at [facility] to best help manage gastroparesis. She is not consuming significant amounts of PO nutrition. Rogerio Manrique MS, JOSELINN, LD Original Note: Addendum entered and electronically signed by Rufina Manrique 03/31/23 15:31: 11:30: Spoke w/ Res Jeffrey- he is worried that Fior's tremors got worse w/ Reglan. He is frustrated because Res was tolerating EN prior to TCU. Discussed w/ Bernadette and Jeffrey that we will resume EN and monitor tolerance. Per ALEXEY Lisa, Res got 6 doses of Reglan. Discussed w/ RN- may need to discuss w/ Dr. Verma re: PEJ placement. Rogerio Manrique MS, JOSELINN, LD Original Note: Call from ALEXEY Lisa- Res w/ residuals of 400, 235 this AM. Tube feeding stopped- RN asked for restart recommendations. Recommend resume at 20mL/hour and increase by 10mL every 6-8 hours as tolerated. Reportedly Reglan d/c'd yesterday at 's request. Maria L states Dr. Verma consulted for further recommendations. Will follow. Res w/ history of gastroparesis. Rogerio Manrique MS, VERO, LD
--- NOTE | 2023-03-31 09:59 | NURSING ---
Addendum entered by Maria L Victoria 03/31/23 12:23: An hope update Dr Friend for possible J tube insertion d/t elevated residuals and unsuccessful use of reglan d/t worsening tremors. aware. Addendum entered by Maria L Victoria 03/31/23 10:27: An Peacock returned call, updated on pt residuals. No other options besides Reglan. referred to Charter Representative, spoke with Rufina and she will speak with regarding cutting back on trays. pt feels she needs to have 2 drinks and yogurt at meals. much education and pt cognitively is not understanding. is aware and has tried cutting things back at least a drink. so most times pt gets yogurt and milk or juice. per speech pt to have pleasure foods only. Original Note: paged GIan at this time, awaiting return call.
--- NOTE | 2023-03-31 12:41 | PCM.PN.REN ---
Subjective Subjective No new complaints Objective Data Objective Data Vital Signs: Vital Signs Temp Pulse Resp BP Pulse Ox O2 Del Method 96.2 F L 86 16 132/77 H 98 Room Air 03/30/23 16:00 03/30/23 21:00 03/30/23 21:00 03/30/23 16:00 03/30/23 21:00 03/30/23 21:00 Oxygen Delivery Method Room Air Weight: 55.429 kg Body Mass Index (BMI) 20.3 Intake & Output: Intake and Output for Last 24 Hours 03/29/23 03/30/23 03/31/23 23:59 23:59 23:59 Intake Total 3282.66 / 3282.66 4544.66 / 4544.66 2103.33 / 210.33 Output Total 300 / 300 1100 / 1100 Balance 2982.66 / 2982.66 3444.66 / 3444.66 210. 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 Vital HP at 50mL/ hour w/ 200mL H2O flush every 4 hours to provide 1200 calories, 105 g protein, and 2203mL free water/day. 2.) PO diet per SERVER SECURITY ADMINISTRATOR ( Previously was regular-pureed/ thin (moist purees for pleasure only). 3.) Recommend transition to nocturnal feedings/home enteral formula as able prior to discharge. [ End ] Lab / Micro Data Result Diagrams: 03/28/23 05:58 03/31/23 05:15 Labs: Laboratory Results - last 24 hr 03/31/23 05:15: Sodium 146 H, Potassium 4.2, Chloride 110 H, Carbon Dioxide 30.0, BUN 55 H, Creatinine 1.47 H, Estim Creat Clear Calc 29.83, Est GFR (MDRD) Af Amer 45 L, Est GFR (MDRD) Non-Af 37 L, BUN/Creatinine Ratio 37.4 H, Glucose 107 H, Calcium 12.2 H, Phosphorus 3.6, Albumin 2.5 L 03/31/23 06:10: POC Glucose 111 H Micro: Microbiology 03/23/23 12:45 Nasal Secretion SARS-CoV-2 Antigen (Rapid) - Final 03/21/23 05:03 Nasal Secretion SARS-CoV-2 Antigen (Rapid) - Final Physical Exam Narrative Alert and oriented x 3, no apparent distress S1, S2, RRR Lung sounds clear anteriorly and posteriorly. No wheezes, rhonchi rales noted Abdomen soft, nontender. 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 Patient was admitted to the hospital with aspiration pneumonia.? Nephrology is following for CITLALY on CKD, hypernatremia, and hypercalcemia. She was transferred to TCU 03/19. CITLALY on CKD stage G3b. 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 Overall renal function stable and last SCr 1.48mg/dL. ? Baseline serum creatinine has been around 1.7 to 1.8 mg/dL. 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 Patient has a history of primary hyperparathyroidism. Calcium remains high despite increased dose of Cinacalcet. Corrected calcium is almost 13.5. Discussed with pharmacy. Will go ahead and give a dose of pamidronate today. It will probably take 1 to 2 days to correct the hypercalcemia. Discussed with at bedside. Can DC IV fluids
--- NOTE | 2023-03-31 14:00 | NURSING ---
5 cc residual at 20cc tube feed rate.
[2023-03-31 14:09] LABS: Vitamin D 1,25-Dihydroxy 21.2 pg/mL (24.8-81.5)
[2023-03-31 14:12] VITALS: PULSE 82; RESP 16; O2SAT 98
[2023-03-31 14:52] VITALS: BP 153/86; PULSE 87; RESP 16; TEMP 35.9; O2SAT 97
--- NOTE | 2023-03-31 15:50 | NURSING ---
aylni koehler called and surgery for j tube, surgery set up for 11a 04/01/23. aware.
[2023-03-31 16:12] VITALS: BMI 20.2
[2023-03-31] MEDS: Ferrous Sulfate 300 MG/5 ML UDC GT (16:21)
--- NOTE | 2023-03-31 18:44 | NURSING ---
and this nurse noted increased confusion yesterday and today. stated that on acute side of hospital pt ammonia level elevated when she developed confusion there. dr oliver udpated, new order entered.
[2023-03-31 18:55] LABS: Ammonia < 10.0 umol/L (11-32)
--- NOTE | 2023-03-31 19:20 | NURSING ---
Tube feed turned up to 30cc/hr at this time. An Peacock called and pt to be NPO after midnight, turn off tube feed too.
--- NOTE | 2023-03-31 20:00 | NURSING ---
pts residual was checked by this nurse and received 55ML output. 55ml output put back in
--- NOTE | 2023-03-31 22:10 | NURSING ---
pts residual checked before administering HS medications. PTs residual is 25ml. 25ml put back and HS medications administered
[2023-04-01 06:36] LABS: Bedside Glucose 92 mg/dL (74-106)
[2023-04-01 07:04] LABS: Albumin, Serum 2.5 g/dL (3.2-5.0); BUN 47 mg/dL (7-18); BUN/Creat Ratio 31.8 RATIO (10-20); Calcium,Total 11.9 mg/dL (8.5-10.1); Chloride 112 mmol/L (98-107); Creatinine, Serum 1.48 mg/dL (0.55-1.02); EST Glomerular Filtration Rate 37 mL/min (>60); Est Glom Filt Rate - Afr Amer 44 mL/min (>60); Estimated Creatinine Clearance 29.43 ml/min; Glucose 88 mg/dL (74-106); Phosphorus 3.3 mg/dL (2.5-4.9); Potassium 3.9 mmol/L (3.5-5.1); Sodium Level 147 mmol/L (136-145)
[2023-04-01] MEDS: Lactulose 20 GM/30 ML UDC GT ×2 (07:39→17:33)
[2023-04-01] MEDS: LORazepam 1 MG Tablet 2 MG GT ×3 (07:39→21:00)
[2023-04-01] MEDS: lamoTRIgine 100 MG Tablet 200 MG GT (07:41)
[2023-04-01] MEDS: miSOPROStol 200 MCG Tablet GT ×3 (07:41→21:01)
[2023-04-01] MEDS: Losartan Potassium 25 MG Tablet GT (07:41)
[2023-04-01] MEDS: Memantine Hydrochloride 10 MG Tablet GT (07:41)
[2023-04-01] MEDS: Lansoprazole 15 MG Capsule.DR 30 MG GT ×2 (07:42→17:33)
--- NOTE | 2023-04-01 10:25 | NURSING ---
Addendum entered by Avel Powers 04/01/23 13:52: patient returned from surgery Original Note: Surgery present to take patient for procedure
[2023-04-01] MEDS: Nystatin Powder 15gm Bottle 1 APPLIC TOPICAL ×2 (14:28→20:55)
[2023-04-01] MEDS: Menthol/Lanolin/Calamine/Znox 113 GM Tube 1 APPLIC TOPICAL ×2 (14:28→20:55)
[2023-04-01] MEDS: Vital High Protein 1,000 ML 20 ML GT (14:36)
[2023-04-01 15:20] VITALS: BP 124/82; PULSE 82; RESP 18; TEMP 36.2; O2SAT 92
--- NOTE | 2023-04-01 17:51 | NURSING ---
Per Dr. Verma, cont. previous tube feed orders.
[2023-04-01 21:18] VITALS: PULSE 84; RESP 14; O2SAT 98
--- NOTE | 2023-04-01 23:57 | NURSING ---
zero residual, no gastric distress, vital HP increased by 10mL per order to 30mL/hr, flushes maintained per order
[2023-04-02 06:25] LABS: Bedside Glucose 97 mg/dL (74-106)
[2023-04-02] MEDS: LORazepam 1 MG Tablet 2 MG GT ×3 (06:28→20:48)
[2023-04-02] MEDS: lamoTRIgine 100 MG Tablet 200 MG GT (06:29)
[2023-04-02] MEDS: Memantine Hydrochloride 10 MG Tablet GT (06:29)
[2023-04-02] MEDS: Cinacalcet HCl 30 MG Tablet 90 MG PO (06:29)
[2023-04-02] MEDS: Polyethylene Glycol 3350 17 GM PACKET GT (06:29)
[2023-04-02] MEDS: Lansoprazole 15 MG Capsule.DR 30 MG GT ×2 (06:29→17:16)
[2023-04-02] MEDS: Tolterodine Tartrate 4 MG CAP.SA PO (06:29)
[2023-04-02] MEDS: Lactulose 20 GM/30 ML UDC GT ×2 (06:29→17:16)
[2023-04-02] MEDS: Losartan Potassium 25 MG Tablet GT (06:30)
[2023-04-02 06:49] VITALS: BP 127/88; PULSE 84; RESP 16
[2023-04-02] MEDS: miSOPROStol 200 MCG Tablet GT ×4 (08:46→20:46)
--- NOTE | 2023-04-02 08:55 | NURSING ---
Addendum entered by Lolita Alonso 04/02/23 08:55: 0ml of residual noted. Original Note: Pt tube feed increased to 40ml/hr. Pt tolerating feeds no c/o nausea.
--- NOTE | 2023-04-02 09:02 | NURSING ---
Pt tube feed 30ml/hr pt toleratiting well no c/o nausea.
--- NOTE | 2023-04-02 10:16 | PCM.PN.REN ---
Subjective Subjective Sitting in chair. No overnight events. at bedside. Denies any complaints. Objective Data Objective Data Vital Signs: Vital Signs Temp Pulse Resp BP Pulse Ox O2 Del Method 97.2 F L 84 16 127/88 H 98 Room Air 04/01/23 15:20 04/02/23 06:49 04/02/23 06:49 04/02/23 06:49 04/01/23 21:18 04/01/23 21:18 Oxygen Delivery Method Room Air Weight: 55.066 kg Body Mass Index (BMI) 20.2 Intake & Output: Intake and Output for Last 24 Hours 03/31/23 04/01/23 04/02/23 23:59 23:59 23:59 Intake Total 5060.00 / 5060.00 320 / 320 360 / 360 Output Total 1900 / 1900 700 / 700 800 / 800 Balance 3160.00 / 3160.00 -380 / -380 -440 / -440 Medical Nutrition Assessment Dietitian: Malnutrition Criteria Met Start: 03/20/23 08:07 Freq: Status: Active Protocol: Document 03/31/23 15:30 AG (Rec: 03/31/23 15:30 [id number]) Nutrition Malnutrition Evidence of Malnutrition Exists Yes Malnutrition (severe): Chronic Evidenced By Suboptimal Energy Intake ( Severe),Weight Loss (Severe) Clinical Problem Chronic Disease or Condition Related Malnutrition Etiology chronic severe malnutrition related to inadequate energy intake d/t dysphagia Signs/Symptoms as evidenced by 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 200mL H2O flush every 4 hours; as ordered EN will provide 1200 calories, 105 g protein, and 2203mL free water/day. 2.) Regular PO diet for pleasure only- texture/ consistency per PAYROLL ACCOUNTING MANAGER (pureed/ thin liquids). 3.) Monitor tolerance of EN w/ medication adjustments; may need to consider PEJ placement if unable to establish tolerance. 4.) Recommend transition to nocturnal feedings/home enteral formula as able prior to discharge. [ End ] Lab / Micro Data Result Diagrams: 03/28/23 05:58 04/01/23 05:41 Labs: Laboratory Results - last 24 hr 04/02/23 05:57: POC Glucose 97 Micro: Microbiology 03/23/23 12:45 Nasal Secretion SARS-CoV-2 Antigen (Rapid) - Final 03/21/23 05:03 Nasal Secretion SARS-CoV-2 Antigen (Rapid) - Final Physical Exam Narrative Alert and oriented x 3, no apparent distress S1, S2, RRR Lung sounds clear anteriorly and posteriorly. No wheezes, rhonchi rales noted Abdomen soft, nontender. 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 Patient was admitted to the hospital with aspiration pneumonia.? Nephrology is following for CITLALY on CKD, hypernatremia, and hypercalcemia. She was transferred to TCU 03/19. CITLALY on CKD stage G3b. 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 Overall renal function stable and last SCr 1.48mg/dL. ? Baseline serum creatinine has been around 1.7 to 1.8 mg/dL. 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 Hypercalcemia. Patient has a history of primary hyperparathyroidism. Calcium remains high despite increased dose of Cinacalcet. Corrected calcium is almost 13.5. Patient received dose of pamidronate 03/31. It will probably take 1 to 2 days to correct the hypercalcemia. Spoke with dietitian today, apparently she was getting carafate which interacted with the absorption of Sensipar. Carafate has now been discontinued. She had been receiving free water via PEG tube/250 mL every 4 hours as well as taking water by mouth ~1.5L/day. However after speaking with dietitian today, as of Thursday patient had high residuals from tube feeding and had not been getting much through PEG tube for the last 2 days including free water flush. Yesterday she had PEG tube removed, J-tube placed. Tube feedings and flushes resumed today. We will hold off on adjusting free water flush and monitor sodium and calcium trends. No labs today. We will check labs tomorrow and early next week. Discussed with patient's at bedside. Patient is drinking water today.
[2023-04-02] MEDS: Nystatin Powder 15gm Bottle 1 APPLIC TOPICAL ×2 (11:05→20:45)
[2023-04-02] MEDS: Menthol/Lanolin/Calamine/Znox 113 GM Tube 1 APPLIC TOPICAL ×2 (11:06→20:45)
--- NOTE | 2023-04-02 13:00 | NURSING ---
0ml of residual noted Tube feed increased to 40ml /hr.
[2023-04-02] MEDS: 0.9% Saline Lock 10 ML Syringe IV (13:34)
[2023-04-02 15:34] VITALS: BP 146/85; PULSE 84; RESP 18; TEMP 35.8; O2SAT 99
[2023-04-02] MEDS: Vital High Protein 1,000 ML 40 ML GT (15:38)
[2023-04-02] MEDS: Ferrous Sulfate 300 MG/5 ML UDC GT (17:16)
[2023-04-02 18:15] VITALS: BP 123/75; PULSE 94
[2023-04-02 20:55] VITALS: PULSE 86; RESP 16; O2SAT 97
--- NOTE | 2023-04-03 00:25 | NURSING ---
tube feed increased to 50cc/hr reaching her goal rate. pt up to BR then to bed, HOB elevated. call light in reach.
[2023-04-03 05:22] VITALS: BP 121/87; PULSE 92
[2023-04-03] MEDS: LORazepam 1 MG Tablet 2 MG GT ×3 (05:22→23:44)
[2023-04-03] MEDS: Lactulose 20 GM/30 ML UDC GT ×2 (05:22→16:30)
[2023-04-03] MEDS: Polyethylene Glycol 3350 17 GM PACKET GT (05:23)
[2023-04-03] MEDS: Lansoprazole 15 MG Capsule.DR 30 MG GT ×2 (05:23→16:30)
[2023-04-03] MEDS: lamoTRIgine 100 MG Tablet 200 MG GT (05:23)
[2023-04-03] MEDS: Losartan Potassium 25 MG Tablet GT (05:23)
[2023-04-03] MEDS: Memantine Hydrochloride 10 MG Tablet GT (05:23)
[2023-04-03] MEDS: Tolterodine Tartrate 4 MG CAP.SA PO (05:23)
[2023-04-03] MEDS: Methimazole 5 MG Tablet PO (05:24)
[2023-04-03] MEDS: Cinacalcet HCl 30 MG Tablet 90 MG PO (05:24)
[2023-04-03 06:28] LABS: Absolute Lymphocyte Count 1.86 X10^3/uL (0.83-4.51); Absolute Neutrophil Count 4.7 X10^3/uL (2.0-7.7); Basophil# 0.02 X10^3/uL; Basophil% 0.3 % (0-1); Eosinophil# 0.29 X10^3/uL; Eosinophils% 3.8 % (0-5); Hematocrit 26.7 % (37-47); Lymphocyte # 1.86 X10^3/ul (0.83-4.51); Lymphocyte % 24.5 % (19-41); Mean Corpuscular Hgb 28.2 pg (27.0-32.0); Mean Platelet Vol. 9.1 fl (6.2-12.0); Monocyte# 0.67 X10^3/uL; Monocyte% 8.8 % (0-10); NRBC Flagged by Analyzer 0 % (0-5); Neutrophil # 4.72 X10^3/uL (2.7-7.7); Neutrophil % 62.2 % (47-70); Platelet Count 209 K/mm3 (150-450); RBC Distribution Width CV 14.6 % (11.6-14.6); RBC Distribution Width SD 49.5 fl (35.1-43.9); Red Blood Count 2.84 M/mm3 (4.2-5.4); White Blood Count 7.6 K/mm3 (4.4-11.0)
[2023-04-03 06:34] LABS: Bedside Glucose 98 mg/dL (74-106)
[2023-04-03 06:37] LABS: Anion Gap 7 (5-15); BUN 52 mg/dL (7-18); BUN/Creat Ratio 32.1 RATIO (10-20); Calcium,Total 11.1 mg/dL (8.5-10.1); Chloride 109 mmol/L (98-107); Creatinine, Serum 1.62 mg/dL (0.55-1.02); EST Glomerular Filtration Rate 33 mL/min (>60); Est Glom Filt Rate - Afr Amer 40 mL/min (>60); Estimated Creatinine Clearance 26.89 ml/min; Glucose 100 mg/dL (74-106); Potassium 4.4 mmol/L (3.5-5.1); Sodium Level 145 mmol/L (136-145)
[2023-04-03] MEDS: miSOPROStol 200 MCG Tablet GT ×4 (08:44→23:44)
--- NOTE | 2023-04-03 09:13 | CASEMGMT ---
Social Work In preparation for discharge, Airplane Technician and this worker collaborated on pt's DC needs. SW faxed referral to [facility] to update needs at time of DC for pt. Zoe Lombardo FARMWORKER FUR SECOND OFFICER
[2023-04-03] MEDS: Vital High Protein 1,000 ML 50 ML GT (10:58)
[2023-04-03] MEDS: 0.9% Saline Lock 10 ML Syringe IV (11:02)
[2023-04-03] MEDS: Nystatin Powder 15gm Bottle 1 APPLIC TOPICAL ×2 (11:08→23:42)
[2023-04-03] MEDS: Menthol/Lanolin/Calamine/Znox 113 GM Tube 1 APPLIC TOPICAL ×2 (11:09→23:42)
[2023-04-03 16:00] VITALS: BP 115/69; PULSE 86; RESP 16; TEMP 36.4; O2SAT 97
--- NOTE | 2023-04-03 19:15 | PCM.PROGNOTE ---
Subjective Subjective Patient is doing well. She denies any abdominal pain. She has not been vomiting. Her secretions have been going down better since undergoing upper endoscopy. Objective Data Objective Data Vital Signs: Vital Signs Temp Pulse Resp BP Pulse Ox O2 Del Method 97.5 F L 86 16 115/69 97 Room Air 04/03/23 16:00 04/03/23 16:00 04/03/23 16:00 04/03/23 16:00 04/03/23 16:00 04/03/23 16:00 Oxygen Delivery Method Room Air Weight: 121 lb 6.4 oz Body Mass Index (BMI) 20.2 Intake & Output: Intake and Output for Last 24 Hours 04/01/23 04/02/23 04/03/23 23:59 23:59 23:59 Intake Total 320 / 320 1423.33 / 1423.33 1253.33 / 1253.33 Output Total 700 / 700 800 / 800 1000 / 1000 Balance -380 / -380 623.33 / 623.33 253.33 / 253.33 Medical Nutrition Assessment Dietitian: Malnutrition Criteria Met Start: 03/20/23 08:07 Freq: Status: Active Protocol: Document 04/02/23 11:12 AG (Rec: 04/02/23 11:12 [id number]) Nutrition Malnutrition Evidence of Malnutrition Exists Yes Malnutrition (severe): Chronic Evidenced By Suboptimal Energy Intake ( Severe),Weight Loss (Severe) Clinical Problem Chronic Disease or Condition Related Malnutrition Etiology chronic severe malnutrition related to inadequate energy intake d/t dysphagia Signs/Symptoms as evidenced by unintentional 11.8kg/18% 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 200mL H2O flush every 4 hours; as ordered EN will provide 1200 calories, 105 g protein, and 2203mL free water/day. 2.) Regular PO diet for pleasure only- texture/ consistency per CORRECTIONAL THERAPY TEACHER (pureed/ thin liquids). 3.) Will transition to 16 hour feedings once tolerance of EN via PEJ is established. Lab / Micro Data Result Diagrams: 04/03/23 05:24 04/03/23 05:24 Labs: Laboratory Results - last 24 hr 04/03/23 05:24: WBC 7.6, RBC 2.84 L, Hgb 8.0 L, Hct 26.7 L, MCV 94.0, MCH 28.2, MCHC 30.0 L, RDW Std Deviation 49.5 H, RDW Coeff of Lee 14.6, Plt Count 209, MPV 9.1, Immature Gran % (Auto) 0.400, Neut % (Auto) 62.2, Lymph % (Auto) 24.5, Bonner % (Auto) 8.8, Eos % (Auto) 3.8, Baso % (Auto) 0.3, Absolute Neuts (auto) 4.7, Absolute Lymphs (auto) 1.86, Nucleated RBC % 0 04/03/23 05:24: Sodium 145, Potassium 4.4, Chloride 109 H, Carbon Dioxide 29.0, Anion Gap 7, BUN 52 H, Creatinine 1.62 H, Estim Creat Clear Calc 26.89, Est GFR (MDRD) Af Amer 40 L, Est GFR (MDRD) Non-Af 33 L, BUN/Creatinine Ratio 32.1 H, Glucose 100, Calcium 11.1 H 04/03/23 06:10: POC Glucose 98 Micro: Microbiology 03/23/23 12:45 Nasal Secretion SARS-CoV-2 Antigen (Rapid) - Final 03/21/23 05:03 Nasal Secretion SARS-CoV-2 Antigen (Rapid) - Final Physical Exam Narrative Alert and oriented x 3, no apparent distress S1, S2, RRR Lung sounds clear anteriorly and posteriorly. No wheezes, rhonchi rales noted Abdomen soft, nontender. J-tube No edema Assessment & Plan Assessment/Plan (1) Bilateral pneumonia: PLAN: She has a history of recurrent aspiration pneumonias in the past. She has marked oropharyngeal and esophageal dysphagia from unknown reason. I suspect she has complications from parkinsonism that is contributing to possible upper motor neuron problems contributing to aspiration pneumonia. There is a possibility that she aspirated tube feedings when she was receiving bolos feedings due to gastroparesis. I do not think that she should bolus tube feedings due to the high aspiration risk. (2) Secondary parkinsonism: PLAN: Possibly secondary to bipolar medications specifically years of lithium usage. Reglan was started in the hospital but that has been stopped. (3) Esophageal stricture: PLAN: Status post dilation yesterday. She has another scheduled upper endoscopy on April 15. At that time we will likely place a fully covered metal stent to hopefully keep her esophagus open to where she was able to be able to eat better. (4) Gastric paresis: PLAN: PEG tube has been switched to a PEG tube. She can still ingest liquids and some soft foods. Charges/Coding Visit Charges Inpatient E&M: 82634 [facility] Subs L3
[2023-04-04 06:28] LABS: Bedside Glucose 104 mg/dL (74-106)
[2023-04-04] MEDS: Cinacalcet HCl 30 MG Tablet 90 MG PO (06:45)
[2023-04-04] MEDS: Losartan Potassium 25 MG Tablet GT (06:45)
[2023-04-04] MEDS: Polyethylene Glycol 3350 17 GM PACKET GT (06:45)
[2023-04-04] MEDS: lamoTRIgine 100 MG Tablet 200 MG GT (06:46)
[2023-04-04] MEDS: Lansoprazole 15 MG Capsule.DR 30 MG GT ×2 (06:46→17:12)
[2023-04-04] MEDS: LORazepam 1 MG Tablet 2 MG GT ×3 (06:46→21:40)
[2023-04-04] MEDS: Memantine Hydrochloride 10 MG Tablet GT (06:46)
[2023-04-04] MEDS: Lactulose 20 GM/30 ML UDC GT ×2 (06:47→17:12)
[2023-04-04] MEDS: Tolterodine Tartrate 4 MG CAP.SA PO (06:47)
[2023-04-04 07:09] VITALS: BP 126/75; PULSE 89
[2023-04-04] MEDS: miSOPROStol 200 MCG Tablet GT ×4 (08:17→21:40)
[2023-04-04] MEDS: Menthol/Lanolin/Calamine/Znox 113 GM Tube 1 APPLIC TOPICAL ×2 (08:17→21:41)
[2023-04-04] MEDS: Nystatin Powder 15gm Bottle 1 APPLIC TOPICAL ×2 (08:18→21:41)
[2023-04-04] MEDS: Vital High Protein 1,000 ML 50 ML GT (08:18)
[2023-04-04 14:59] VITALS: BP 110/70; PULSE 91; RESP 19; TEMP 36.6; O2SAT 96
[2023-04-04] MEDS: Ferrous Sulfate 300 MG/5 ML UDC GT (17:12)
[2023-04-04 21:35] VITALS: BP 110/70; PULSE 86; RESP 19; TEMP 36.6; O2SAT 95
[2023-04-05] MEDS: Methimazole 5 MG Tablet PO (05:34)
[2023-04-05] MEDS: Vital High Protein 1,000 ML 50 ML GT (05:34)
[2023-04-05] MEDS: Losartan Potassium 25 MG Tablet GT (05:34)
[2023-04-05] MEDS: lamoTRIgine 100 MG Tablet 200 MG GT (05:34)
[2023-04-05] MEDS: Polyethylene Glycol 3350 17 GM PACKET GT (05:34)
[2023-04-05] MEDS: LORazepam 1 MG Tablet 2 MG GT ×3 (05:34→22:10)
[2023-04-05] MEDS: Cinacalcet HCl 30 MG Tablet 90 MG PO (05:34)
[2023-04-05] MEDS: Lactulose 20 GM/30 ML UDC GT ×2 (05:35→17:36)
[2023-04-05] MEDS: Lansoprazole 15 MG Capsule.DR 30 MG GT ×2 (05:35→17:36)
[2023-04-05] MEDS: Memantine Hydrochloride 10 MG Tablet GT (05:35)
[2023-04-05] MEDS: Tolterodine Tartrate 4 MG CAP.SA PO (05:35)
[2023-04-05 06:32] LABS: Bedside Glucose 117 mg/dL (74-106)
[2023-04-05] MEDS: miSOPROStol 200 MCG Tablet GT ×4 (09:09→22:13)
[2023-04-05] MEDS: Menthol/Lanolin/Calamine/Znox 113 GM Tube 1 APPLIC TOPICAL ×2 (09:09→22:11)
[2023-04-05] MEDS: Nystatin Powder 15gm Bottle 1 APPLIC TOPICAL ×2 (09:09→22:11)
[2023-04-05 11:25] VITALS: PULSE 93; O2SAT 94
[2023-04-05 14:25] VITALS: BP 139/101; PULSE 107; RESP 95; TEMP 36.8; O2SAT 95
[2023-04-06] MEDS: Vital High Protein 1,000 ML 50 ML GT ×2 (04:19→21:32)
[2023-04-06 06:23] LABS: Bedside Glucose 111 mg/dL (74-106)
[2023-04-06] MEDS: Lansoprazole 15 MG Capsule.DR 30 MG GT ×2 (06:42→17:57)
[2023-04-06] MEDS: Lactulose 20 GM/30 ML UDC GT ×2 (06:42→17:58)
[2023-04-06] MEDS: LORazepam 1 MG Tablet 2 MG GT ×3 (06:42→21:31)
[2023-04-06] MEDS: Memantine Hydrochloride 10 MG Tablet GT (06:43)
[2023-04-06] MEDS: Polyethylene Glycol 3350 17 GM PACKET GT (06:43)
[2023-04-06] MEDS: Methimazole 5 MG Tablet PO (06:43)
[2023-04-06] MEDS: Tolterodine Tartrate 4 MG CAP.SA PO (06:43)
[2023-04-06] MEDS: Losartan Potassium 25 MG Tablet GT (06:43)
[2023-04-06] MEDS: lamoTRIgine 100 MG Tablet 200 MG GT (06:43)
[2023-04-06] MEDS: Cinacalcet HCl 30 MG Tablet 90 MG PO (06:43)
[2023-04-06] MEDS: miSOPROStol 200 MCG Tablet GT ×4 (07:48→21:31)
[2023-04-06] MEDS: Menthol/Lanolin/Calamine/Znox 113 GM Tube 1 APPLIC TOPICAL ×2 (07:51→21:43)
[2023-04-06] MEDS: Nystatin Powder 15gm Bottle 1 APPLIC TOPICAL ×2 (07:51→21:43)
--- NOTE | 2023-04-06 12:06 | NURSING ---
feels pt spitting up more sputum and this usually means esophagus is narrowing again.
[2023-04-06 14:01] VITALS: BP 114/73; PULSE 97; RESP 16; TEMP 36.1; O2SAT 96
[2023-04-06] MEDS: Ferrous Sulfate 300 MG/5 ML UDC GT (17:58)
[2023-04-07 05:50] VITALS: BP 103/62; PULSE 95
[2023-04-07] MEDS: LORazepam 1 MG Tablet 2 MG GT ×3 (05:51→22:18)
[2023-04-07] MEDS: Lactulose 20 GM/30 ML UDC GT ×2 (05:51→17:09)
[2023-04-07] MEDS: Tolterodine Tartrate 4 MG CAP.SA PO (05:51)
[2023-04-07] MEDS: Lansoprazole 15 MG Capsule.DR 30 MG GT ×2 (05:51→17:09)
[2023-04-07] MEDS: Losartan Potassium 25 MG Tablet GT (05:52)
[2023-04-07] MEDS: Memantine Hydrochloride 10 MG Tablet GT (05:52)
[2023-04-07] MEDS: Polyethylene Glycol 3350 17 GM PACKET GT (05:52)
[2023-04-07] MEDS: Cinacalcet HCl 30 MG Tablet 90 MG PO (05:52)
[2023-04-07] MEDS: lamoTRIgine 100 MG Tablet 200 MG GT (05:52)
[2023-04-07 06:54] LABS: Bedside Glucose 106 mg/dL (74-106)
[2023-04-07] MEDS: miSOPROStol 200 MCG Tablet GT ×4 (09:00→22:18)
[2023-04-07] MEDS: Menthol/Lanolin/Calamine/Znox 113 GM Tube 1 APPLIC TOPICAL ×2 (09:10→22:19)
[2023-04-07] MEDS: Nystatin Powder 15gm Bottle 1 APPLIC TOPICAL ×2 (09:10→22:19)
[2023-04-07 10:00] VITALS: PULSE 83
--- NOTE | 2023-04-07 15:00 | CASEMGMT ---
Addendum entered by Zoe Lombardo 04/07/23 16:26: SW spoke with pt's to update on DC date, explained appeal rights, and information from [facility]. agreeable to DC but that pt has stent procedure scheduled on 04/15 and wants to know if that can be moved up prior to DC. SW referred to nursing for that information. SW confirmed with [facility] preference is [facility] and has no other DME needs. SW phoned referral to [facility] PT/OT/SN/SW. SW to assist with ongoing support and resources as expressed some apprehension about return home with peg tube. Plan: DC home with 04/10, [facility] for tube feeding, [facility] PT/OT/SN/ASHLYN Hdez Original Note: Social Work Insurance issued LCD 04/09, DC 04/10. [place] phoned Roxana at [facility] to update on DC and unsure all information is needed to process referral. Roxana confirmed, just awaiting benefit verification from insurance. Roxana to notify this worker once that is received. ASHLYN Beach
[2023-04-07 16:00] VITALS: BP 92/55; PULSE 100; RESP 18; TEMP 36.1; O2SAT 95
--- NOTE | 2023-04-07 16:05 | NS ---
Anticipated discharge 04/10/23. and Res requesting transition to 16 hour feeds so Res can have break from enteral nutrition when home. Will continue Vital HP via PEJ and adjust rate to provide enteral nutrition over 16 hours/day. Will increase current rate today, 04/07/23, to 60mL/hour for next 16 hours and hold EN from 7728-0669. Then will resume enteral nutrition at 1600 04/08/23 at new goal rate of 75mL/hour as tolerated. Will continue 200mL H2O flushes every 4 hours daily given history of electrolyte abnormalities. As ordered enteral nutrition provides 1200 calories, 105 g protein, and 2203mL free water/day. Res and in agreement w/ plan of care. Will continue to follow. Rogerio Manrique MS, RDN, LD
[2023-04-07] MEDS: Vital High Protein 1,000 ML 60 ML GT (16:57)
[2023-04-07] MEDS: Cinacalcet HCl 30 MG Tablet 60 MG PO (17:09)
--- NOTE | 2023-04-07 17:29 | NURSING ---
04/07/23@1639- PT'S , MAIRA STATES PT'S SECRETIONS HAVE INCREASED IN AMOUNT AND THICKNESS OVER THE LAST SEVERAL DAYS. HE SAID THIS IS A SIGN THAT HER ESOPHAGUS IS CLOSING.
[2023-04-08 05:32] LABS: Hemoglobin 8.7 g/dL (12.0-15.0); Mean Corpuscular Hgb 28.4 pg (27.0-32.0); Mean Corpuscular Volume 94.8 fL (81-99); Mean Platelet Vol. 8.7 fl (6.2-12.0); Platelet Count 236 K/mm3 (150-450); RBC Distribution Width CV 15.7 % (11.6-14.6); RBC Distribution Width SD 53.7 fl (35.1-43.9); Red Blood Count 3.06 M/mm3 (4.2-5.4); White Blood Count 10.5 K/mm3 (4.4-11.0)
[2023-04-08 05:50] LABS: Anion Gap 8 (5-15); BUN 97 mg/dL (7-18); BUN/Creat Ratio 55.7 RATIO (10-20); Chloride 104 mmol/L (98-107); Creatinine, Serum 1.74 mg/dL (0.55-1.02); EST Glomerular Filtration Rate 30 mL/min (>60); Est Glom Filt Rate - Afr Amer 37 mL/min (>60); Estimated Creatinine Clearance 24.74 ml/min; Glucose 108 mg/dL (74-106); Potassium 4.6 mmol/L (3.5-5.1); Sodium Level 141 mmol/L (136-145)
[2023-04-08 06:36] LABS: Bedside Glucose 108 mg/dL (74-106)
[2023-04-08] MEDS: Lansoprazole 15 MG Capsule.DR 30 MG GT ×2 (06:51→18:20)
[2023-04-08] MEDS: LORazepam 1 MG Tablet 2 MG GT ×3 (06:51→21:35)
[2023-04-08] MEDS: Polyethylene Glycol 3350 17 GM PACKET GT (06:51)
[2023-04-08] MEDS: Cinacalcet HCl 30 MG Tablet 60 MG PO ×2 (06:52→18:22)
[2023-04-08] MEDS: lamoTRIgine 100 MG Tablet 200 MG GT (06:52)
[2023-04-08] MEDS: Methimazole 5 MG Tablet PO (06:52)
[2023-04-08] MEDS: Memantine Hydrochloride 10 MG Tablet GT (06:52)
[2023-04-08] MEDS: Tolterodine Tartrate 4 MG CAP.SA PO (06:55)
[2023-04-08] MEDS: Losartan Potassium 25 MG Tablet GT (06:55)
[2023-04-08] MEDS: Lactulose 20 GM/30 ML UDC GT ×2 (07:11→18:20)
[2023-04-08] MEDS: miSOPROStol 200 MCG Tablet GT ×4 (09:13→21:35)
[2023-04-08] MEDS: Nystatin Powder 15gm Bottle 1 APPLIC TOPICAL ×2 (09:19→21:41)
[2023-04-08] MEDS: Menthol/Lanolin/Calamine/Znox 113 GM Tube 1 APPLIC TOPICAL ×2 (09:19→21:41)
--- NOTE | 2023-04-08 11:31 | CASEMGMT ---
Social Work SW followed up with on appeal and stent procedure. states procedure cannot change and DC remains 6/2, not appealing. Zoe Lombardo, PLANNING ANALYST WELT WHEELER
--- NOTE | 2023-04-08 12:41 | DS.PCM_ITS ---
Providers Date of Admission: 03/19/23 Primary Care Physician: Jay Kincaid, SENIOR STRATEGY MANAGER-C Consultations 03/19/23 21:00 Consult: Nephrology Routine Consulting Provider: Dyana Arellano Reason for Consult: Hypernatremia, DI, hyperparathyroidism. EMERGENT Consult: No Notified: Yes Date Notified: 03/19/23 Time Notified: 21:01 Method of Notification: Answering Service 03/20/23 16:42 Consult: Hospice / Palliative Care Routine Consulting Provider: [facility] Reason for Consult: PALLIATIVE - Dementia, new peg tube, malnutrition, symptom management EMERGENT Consult: No Notified: Yes Date Notified: 03/20/23 Time Notified: 16:42 Method of Notification: Text 03/25/23 09:13 Consult: Gastroenterology Routine Consulting Provider: [facility] Reason for Consult: tube feeding retention/gastroparesis EMERGENT Consult: No Notified: Yes Date Notified: 03/25/23 Time Notified: 09:13 Method of Notification: Text Reason For Visit: SEPSIS 2NDARY TO ASPIRATION PNEUMONIA Diagnosis Discharge Diagnosis (1) Bilateral pneumonia: Status: Resolved Code(s): J18.9 - Pneumonia, unspecified organism (2) Secondary parkinsonism: Status: Acute Code(s): G21.9 - Secondary parkinsonism, unspecified (3) Esophageal stricture: Status: Resolved Code(s): K22.2 - Esophageal obstruction (4) Gastric paresis: Status: Acute Code(s): K31.84 - Gastroparesis Plan 72 year old female with below past medical history hospitalized for acute respiratory with hypoxia, aspiration pneumonia, sepsis, 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 * Debility - PT/OT. * Dysphagia - ST, peg tube. * Pain - Monitor. * Bowel - Miralax 17gm daily, Lactulose 20gm bid, Dulcolax 10mg pr x 1 prn. * Adult immunization - Administer pneumonia vaccine, covid19 vaccine, flu va ccine as appropriate. * DVT prophylaxis - Hold, anemia. * Hyperparathyroidism - Cincalcet 60mg 4 days/week, Consult Nephrology. * Iron deficiency anemia - Ferrous sulfate 300mg every other day, Transfuse if hemoglobin < 7.0, or resident symptomatic. * Bipolar disorder - Lamictal 200mg daily. * GERD - Lansoprazole 30mg bid, Cytotec 200mcg 4x/day, sucralfate 1gm qachs. * Anxiety - Lorazepam 2mg tid prn, stable chronic long-term use, GDR not recommended. * Hypertension - Losartan 25mg daily. * Alzheimer Disease - Memantine 10mg daily. * Hyperthyroidism - Methimazole 5mg 4 days/week. * Nausea - Zofran odt 4mg q6h prn. * Overactive bladder - Tolterodine 4mg daily. * Nutrition - Vital High Protein 50cc/hour via peg. * Hypernatremia - Monitor, consult Nephrology. Medications at Discharge Home Medications methimazole 5 mg tablet 5 mg PO SUMOWEFR Thyroid 10/04/20 denosumab 60 mg/mL subcutaneous syringe (Prolia) 60 mg subcut .Q6MO osteoporosis 09/05/22 oxybutynin chloride 15 mg tablet,extended release 24 hr 15 mg PO DAILY Overactive bladder 09/05/22 polyethylene glycol 3350 17 gram/dose oral powder (Miralax) 17 g PO DAILY LAXATIVE 09/05/22 ferrous sulfate 325 mg (65 mg iron) tablet 325 mg PO QODAY SUPPLEMENT #30 tabs 12/24/22 ondansetron HCl 4 mg tablet 4 mg PO Q6H PRN nausea and vomiting #30 tabs 03/06/23 lactulose 20 gram/30 mL oral solution 20 g G-tube BID Check with primary doctor 03/19/23 lamotrigine 100 mg tablet 200 mg feeding tube DAILY Bipolar Disorder 03/19/23 lansoprazole 30 mg delayed release,disintegrating tablet 30 mg feeding tube BID GERD 03/19/23 lorazepam 2 mg tablet 2 mg feeding tube TID PRN AGITATION 3 days #6 tabs 03/19/23 losartan 25 mg tablet 25 mg feeding tube DAILY BP 03/19/23 memantine 10 mg tablet 10 mg feeding tube DAILY Check with primary doctor 30 days #0 tabs 03/19/23 cinacalcet 30 mg tablet 60 mg PO BID 30 days #120 tabs 04/08/23 misoprostol 200 mcg tablet 200 mcg G-tube 4X/DAYCM 30 days #120 tabs 04/08/23 Hospital Course Operations None Procedures EGD Summary of Care Provided Minutes Spent on Discharge: 35 Hospital Course: 72 year old female with below past medical history hospitalized for acute respiratory with hypoxia, aspiration pneumonia, sepsis, 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 04/01/2023 Dr. Verma performed EGD esophageal stenosis dilated, PEG-J tube placed. Planning esophageal stent 04/15/2023. 04/02/2023 Nephrology following acute kidney injury on CKD stage 3b, Creatinine 1.48, Hypernatremia sodium 146 to 148, Hypercalcemia improved, Carafate interfered with absorption of Sensipar, Carafate stopped. Discharge home with 04/10/2023, [facility] for tube feeding, [facility] PT/OT/SN/SW. Physical Exam Const alert General Appearance: cooperative HEENT normocephalic Eyes PERRL and EOMs intact bilaterally Neck supple, no JVD and no carotid bruits Resp normal respiratory effort, normal air movement and clear to auscultation bilaterally Cardio regular rate and regular rhythm GI normal to inspection, nondistended, normoactive bowel sounds, non-tender and non-distended GI Narrative: PEG-J tube. Extremity normal capillary refill General Extremity: Negative for edema Skin no rashes or lesions noted General Skin Exam: no breakdown Psych affect normal Appearance: appropriate Medical Records Data Medical Nutrition Assessment Dietitian: Malnutrition Criteria Met Start: 03/20/23 0 8:07 Freq: Status: Active Protocol: Document 04/08/23 08:42 (Rec: 04/08/23 08:42 [id number]) Nutrition Malnutrition Evidence of Malnutrition Exists Yes Malnutrition (severe): Chronic Evidenced By Suboptimal Energy Intake ( Severe),Weight Loss (Severe) Clinical Problem Chronic Disease or Condition Related Malnutrition Etiology chronic severe malnutrition related to inadequate energy intake d/t dysphagia Signs/Symptoms as evidenced by unintentional 11.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 Will continue 200mL H2O flushes every 4 hours daily given history of electrolyte abnormalities. As ordered enteral nutrition provides 1200 calories, 105 g protein, and 2203mL free water/day. 2.) Regular PO diet for pleasure only- texture/ consistency per MATHEMATICS PROFESSOR (pureed/ thin liquids). Weight / BMI Weight Weight: 54.431 kg Body Mass Index (BMI) 20.0 ABG / Lab / Microbiology Data Result Diagrams: 04/08/23 05:19 04/08/23 05:19 Laboratory: Laboratory Results - last 24 hr 04/08/23 05:19: WBC 10.5, RBC 3.06 L, Hgb 8.7 L, Hct 29.0 L, MCV 94.8, MCH 28.4, MCHC 30.0 L, RDW Std Deviation 53.7 H, RDW Coeff of Lee 15.7 H, Plt Count 236, MPV 8.7 04/08/23 05:19: Sodium 141, Potassium 4.6, Chloride 104, Carbon Dioxide 29.0, Anion Gap 8, BUN 97 H, Creatinine 1.74 H, Estim Creat Clear Calc 24.74, Est GFR (MDRD) Af Amer 37 L, Est GFR (MDRD) Non-Af 30 L, BUN/Creatinine Ratio 55.7 H, Glucose 108 H, Calcium 10.0 04/08/23 06:14: POC Glucose 108 H Microbiology: Microbiology 03/23/23 12:45 Nasal Secretion SARS-CoV-2 Antigen (Rapid) - Final 03/21/23 05:03 Nasal Secretion SARS-CoV-2 Antigen (Rapid) - Final D/C Instructions Discharge Diet: - (Moist, pureed, alternate sips, bites, pleasure only. ) Discharge Activity: Return to Normal Activity, May Shower and Use Walker Weight Bearing Status: Weight bearing as tolerated Call your doctor if you observe: Fever of 101 or Higher, Inability to urinate, Inability to have a bowel movement, Shortness of breath, Dizziness, Fainting spells, Swelling in the ankles, Chest pain and Uncontrolled pain Additional Instructions: Discharge home with 04/10/2023, [facility] for tube feeding, [facility] PT/OT/SN/SW. Please Follow Up With: Ayse Abrams MD When: 2 weeks. Meaningful Use Info Meaningful Use Diagnoses (Choose all that apply): None applicable Discharge Plan Admission Admit Date/Time: 03/19/23 18:05 Primary Reason for Your Visit: Debility. Attending Provider: Stepan Saenz Chi Primary Care Provider: Jay Kincaid NP Consulting Providers: Dyana Arellano ; Augustus Cevallos ; Tamela Ashford ; Veronica Dominguez ; Lynne Warren SENIOR STRATEGY MANAGER Instructions Additional Instructions / Restrictions: Discharge home with 04/10/2023, [facility] for tube feeding, [facility] PT/OT/SN/SW. Discharge Orders/Prescriptions Prescriptions: New misoprostol 200 mcg Tablet 200 mcg G-tube 4X/DAYCM 30 Days Qty: 120 0RF cinacalcet 30 mg Tablet 60 mg PO BID 30 Days Qty: 120 0RF Continued methimazole 5 MG tablet 5 mg PO SUMOWEFR oxybutynin chloride 15 mg tablet extended release 24hr 15 mg PO DAILY Label Comments: take 1 tablet by mouth every morning polyethylene glycol 3350 [Miralax] 17 gram/dose Powder 17 g PO DAILY Prolia 60 mg/mL Syringe 60 mg SUBCUT .Q6MO ferrous sulfate 325 MG tablet 325 mg PO QODAY Qty: 30 0RF ondansetron HCl 4 mg tablet 4 mg PO Q6H PRN (Reason: nausea and vomiting) Qty: 30 0RF memantine 10 MG tablet 10 mg feeding tube DAILY 30 Days Qty: 0 0RF lorazepam 2 mg tablet 2 mg feeding tube TID PRN (Reason: AGITATION) 3 Days Qty: 6 0RF losartan 25 mg tablet 25 mg feeding tube DAILY lamotrigine 100 mg tablet 200 mg feeding tube DAILY Label Comments: take 1 tablet by mouth once daily for 2 WEEKS then INCREASE to 1 ... (REFER TO PRESCRIPTION NOTES). lansoprazole 30 mg tablet,disintegrat, delay rel 30 mg feeding tube BID lactulose 20 gram/30 mL solution 20 g G-tube BID Discontinued sucralfate 100 mg/mL suspension 10 ml PO QACHS cinacalcet 30 MG tablet 60 mg PO SUMOWEFR 30 Days Qty: 0 0RF misoprostol 200 mcg tablet 200 mcg G-tube 4X/DAYCM Referrals / Follow Up: Jay Kincaid SENIOR STRATEGY MANAGER, SENIOR STRATEGY MANAGER-C [Primary Care Provider] - Disposition Disposition (needs filled in before D/C Order can be placed): Home Health Service
--- NOTE | 2023-04-08 12:42 | CASEMGMT ---
Social Work BIMS () and PHQ-9 (01/05) completed for MDS assessment. Zoe Lombardo MSW CLINICAL INFORMATICS SPECIALIST
[2023-04-08 13:45] VITALS: BP 102/72; PULSE 91; RESP 14; TEMP 36.2; O2SAT 95
[2023-04-08] MEDS: Vital High Protein 1,000 ML 75 ML GT (16:18)
[2023-04-08] MEDS: Ferrous Sulfate 300 MG/5 ML UDC GT (18:21)
[2023-04-08 21:45] VITALS: PULSE 90; RESP 14; O2SAT 98
[2023-04-09 06:14] VITALS: BP 106/64; PULSE 96
[2023-04-09] MEDS: LORazepam 1 MG Tablet 2 MG GT ×3 (06:15→20:27)
[2023-04-09] MEDS: Cinacalcet HCl 30 MG Tablet 60 MG PO ×2 (06:16→17:42)
[2023-04-09] MEDS: Lactulose 20 GM/30 ML UDC GT ×2 (06:16→17:42)
[2023-04-09] MEDS: Lansoprazole 15 MG Capsule.DR 30 MG GT ×2 (06:16→17:43)
[2023-04-09] MEDS: Polyethylene Glycol 3350 17 GM PACKET GT (06:17)
[2023-04-09] MEDS: Memantine Hydrochloride 10 MG Tablet GT (06:17)
[2023-04-09] MEDS: lamoTRIgine 100 MG Tablet 200 MG GT (06:17)
[2023-04-09] MEDS: Losartan Potassium 25 MG Tablet GT (06:17)
[2023-04-09] MEDS: Tolterodine Tartrate 4 MG CAP.SA PO (06:17)
[2023-04-09 06:20] LABS: Bedside Glucose 114 mg/dL (74-106)
[2023-04-09] MEDS: Vital High Protein 1,000 ML 75 ML GT ×2 (06:29→16:03)
[2023-04-09] MEDS: miSOPROStol 200 MCG Tablet GT ×4 (08:23→20:28)
[2023-04-09] MEDS: Nystatin Powder 15gm Bottle 1 APPLIC TOPICAL ×2 (08:31→20:33)
[2023-04-09] MEDS: Menthol/Lanolin/Calamine/Znox 113 GM Tube 1 APPLIC TOPICAL ×2 (08:31→20:33)
--- NOTE | 2023-04-09 12:05 | MDS.RN ---
Pain interview for JAMES 04/10/23 completed for the MDS.
[2023-04-09 13:47] VITALS: BP 90/60; PULSE 93; RESP 14; TEMP 36.1; O2SAT 98
--- NOTE | 2023-04-09 13:57 | NS ---
Teaching w/ Eugene today for home enteral nutrition. Res will do 5 cartons of Osmolite 1.2 (approx 1185mL) per day. Enteral nutrition will run via pump at 75mL/hour for ~16 hours/day (recommend 4PM to 8AM). Recommend continue 200mL H2O flush every 4 hours via PEJ per day (1200mL total). Per [place] Enriquez, pt will have a kangaroo pump at home, so flushes should be given automatically overnight and Eugene will need to 2 additional flushes during the day via syringe. Eugene given RDN contact info. RDN to follow-up w/ Res and Eugene on Friday 04/13 to assess progress at home. Rogerio Manrique MS, RDN, LD
[2023-04-09 19:48] VITALS: PULSE 98; RESP 14; O2SAT 95
[2023-04-10 05:38] LABS: Absolute Lymphocyte Count 1.95 X10^3/uL (0.83-4.51); Absolute Neutrophil Count 6.5 X10^3/uL (2.0-7.7); Basophil# 0.05 X10^3/uL; Basophil% 0.5 % (0-1); Eosinophil# 0.24 X10^3/uL; Eosinophils% 2.5 % (0-5); Hematocrit 29.3 % (37-47); Hemoglobin 8.7 g/dL (12.0-15.0); Lymphocyte # 1.95 X10^3/ul (0.83-4.51); Mean Corp Hgb Conc 29.7 g/dL (32-36); Mean Corpuscular Hgb 28.5 pg (27.0-32.0); Mean Corpuscular Volume 96.1 fL (81-99); Mean Platelet Vol. 9.3 fl (6.2-12.0); Monocyte# 0.96 X10^3/uL; Monocyte% 9.9 % (0-10); NRBC Flagged by Analyzer 0 % (0-5); Neutrophil # 6.47 X10^3/uL (2.7-7.7); Neutrophil % 66.5 % (47-70); Platelet Count 277 K/mm3 (150-450); RBC Distribution Width CV 15.8 % (11.6-14.6); RBC Distribution Width SD 55.1 fl (35.1-43.9); Red Blood Count 3.05 M/mm3 (4.2-5.4); White Blood Count 9.7 K/mm3 (4.4-11.0)
[2023-04-10 06:00] LABS: Anion Gap 7 (5-15); BUN 95 mg/dL (7-18); BUN/Creat Ratio 57.6 RATIO (10-20); Calcium,Total 9.2 mg/dL (8.5-10.1); Chloride 108 mmol/L (98-107); Creatinine, Serum 1.65 mg/dL (0.55-1.02); EST Glomerular Filtration Rate 32 mL/min (>60); Est Glom Filt Rate - Afr Amer 39 mL/min (>60); Estimated Creatinine Clearance 26.09 ml/min; Glucose 101 mg/dL (74-106); Potassium 4.7 mmol/L (3.5-5.1); Sodium Level 143 mmol/L (136-145)
[2023-04-10 06:04] VITALS: BP 104/69; PULSE 97
[2023-04-10] MEDS: Memantine Hydrochloride 10 MG Tablet GT (06:06)
[2023-04-10] MEDS: Losartan Potassium 25 MG Tablet GT (06:06)
[2023-04-10] MEDS: LORazepam 1 MG Tablet 2 MG GT (06:06)
[2023-04-10] MEDS: Lactulose 20 GM/30 ML UDC GT (06:06)
[2023-04-10] MEDS: Tolterodine Tartrate 4 MG CAP.SA PO (06:06)
[2023-04-10] MEDS: Lansoprazole 15 MG Capsule.DR 30 MG GT (06:06)
[2023-04-10] MEDS: Polyethylene Glycol 3350 17 GM PACKET GT (06:06)
[2023-04-10] MEDS: lamoTRIgine 100 MG Tablet 200 MG GT (06:06)
[2023-04-10] MEDS: Methimazole 5 MG Tablet PO (06:07)
[2023-04-10 06:36] LABS: Bedside Glucose 108 mg/dL (74-106)
[2023-04-10] MEDS: Cinacalcet HCl 30 MG Tablet 60 MG PO (06:57)
[2023-04-10] MEDS: miSOPROStol 200 MCG Tablet GT (08:18)
[2023-04-10] MEDS: Menthol/Lanolin/Calamine/Znox 113 GM Tube 1 APPLIC TOPICAL (08:28)
[2023-04-10 09:30] VITALS: BP 106/65; PULSE 96; RESP 15; TEMP 36.2; O2SAT 98
[2023-04-10] MEDS: Nystatin Powder 15gm Bottle 1 APPLIC TOPICAL (11:34)
== END 2023-04-10 10:10 | disposition home health service (06) | DRG 178 ==
PROVIDERS: Internal Medicine; Internal Medicine Nephrology; Nurse Practitioner Adult Health; Admitting Provider Family Medicine Geriatric Medicine; PCP Nurse Practitioner Family; Visit Provider Family Medicine Geriatric Medicine
DX: J69.0 Pneumonitis due to inhalation of food and vomit (principal); N25.1 Nephrogenic diabetes insipidus; G21.9 Secondary parkinsonism, unspecified; E87.0 Hyperosmolality and hypernatremia; N17.9 Acute kidney failure, unspecified; K22.2 Esophageal obstruction; F02.80 Dementia in other diseases classified elsewhere, unspecified severity, without behavioral disturbance, psychotic disturbance, mood disturbance, and anxiety; G30.9 Alzheimer's disease, unspecified; F31.9 Bipolar disorder, unspecified; E21.3 Hyperparathyroidism, unspecified; N18.32 Chronic kidney disease, stage 3b; E21.0 Primary hyperparathyroidism; Z93.1 Gastrostomy status; K21.9 Gastro-esophageal reflux disease without esophagitis; E83.52 Hypercalcemia; F41.9 Anxiety disorder, unspecified; I12.9 Hypertensive chronic kidney disease with stage 1 through stage 4 chronic kidney disease, or unspecified chronic kidney disease; E05.90 Thyrotoxicosis, unspecified without thyrotoxic crisis or storm; D50.9 Iron deficiency anemia, unspecified; K31.84 Gastroparesis; Z87.891 Personal history of nicotine dependence; R13.10 Dysphagia, unspecified; N32.81 Overactive bladder; Z79.899 Other long term (current) drug therapy; Z23 Encounter for immunization
CPT/HCPCS: 0134A; 36415; 74018; 80048; 80069; 82140; 82306; 82652; 82962; 83970; 85014; 85018; 85025; 85027; 87811; 91313; 92610; 97110; 97116; 97162; 97166; 97530; 97535; 97802; 97803; J7030; J7120; A4216; J2430

== ENCOUNTER 2023-04-01 10:32 | Day surgery (SDC) | payer MEDICARE, SELFPAY ==
[2023-04-01] VITALS (8 sets, daily range): BP systolic 113–143; BP diastolic 75–88; PULSE 84–95; RESP 16; TEMP 36.8–37.2; O2SAT 92–98; BMI 20.3
--- NOTE | 2023-04-01 11:00 | HP.PCM_ITS ---
HPI - General General Date of Admission: 04/01/23 Date of Service: 04/01/23 Chief Complaint: gastroparesis HPI Narrative SIMONA HERNANDEZ, is a 72 F who presents to have a PEG tube change into a package tube due to worsening gastroparesis. She has a history of bipolar disorder, diabetes insipidus secondary to history of lithium use, gastroparesis, CKD stage IIIb, hyperparathyroidism and hypercalcemia, erosive esophagitis, PE, dysphagia with PEG tube placement who presented 03/07/2023 with increasing shortness of breath.? She had had EGD and PEG tube placement on 03/05 and was discharged on 03/06 but returned to the next night with shortness of breath.? She had gone home and vomited and was brought in with hypoxia and sepsis secondary to aspiration pneumonia.? She completed a 7-day course of Unasyn and respiratory status improved.? She was seen by GI during her admission and had an esophageal dilation but continued to have dysphagia and required PEG nutrition.? Nephrology followed for her hypernatremia and hypercalcemia which were available when initially increased after her D5 was discontinued and she was placed on tube feeds with free water flushes, these were titrated up patient has had improvement.? On day of discharge she reports feeling fairly well with no acute complaints. She is currently in TCU for rehab. I was called to evaluate the patient secondary to increase residuals. [facility] Medical History (Updated 03/27/23 @ 00:02 by Background Daemon) Acute renal insufficiency CITLALY (acute kidney injury) Anemia Anemia, unspecified Anxiety Back pain Bipolar disorder Bipolar disorder with moderate depression Bladder disease Delirium due to multiple etiologies Diabetes insipidus Dietary restriction Difficulty chewing Dysphagia Erosive esophagitis Falls Former smoker Gastric reflux Gastroparesis Generalized weakness Gram-negative bacteremia History of edema History of gastrostomy tube placement History of gastrostomy tube placement History of herpes zoster History of hiatal hernia Hypercalcemia Hypernatremia Hypertension Post-menopausal Pulmonary emboli Secondary hyperparathyroidism of renal origin Severe dehydration Severe malnutrition Severe malnutrition Stenosis of esophagus Tardive dyskinesia Thyroid disease Unsteady gait UTI (urinary tract infection) Wears glasses Home Medications methimazole 5 mg tablet 5 mg PO SUMOWEFR Thyroid 10/04/20 [History Last Taken 01/14/23] denosumab 60 mg/mL subcutaneous syringe (Prolia) 60 mg subcut .Q6MO osteoporosis 09/05/22 [History Last Taken 08/27/22] oxybutynin chloride 15 mg tablet,extended release 24 hr 15 mg PO DAILY Overactive bladder 09/05/22 [History Last Taken 01/14/23] polyethylene glycol 3350 17 gram/dose oral powder (Miralax) 17 g PO DAILY LAXATI VE 09/05/22 [History Last Taken 09/05/22] ferrous sulfate 325 mg (65 mg iron) tablet 325 mg PO QODAY SUPPLEMENT #30 tabs 12/24/22 [Rx Last Taken 01/13/23] sucralfate 100 mg/mL oral suspension 10 ml PO QACHS GERD 01/30/23 [History Last Taken Unknown] ondansetron HCl 4 mg tablet 4 mg PO Q6H PRN nausea and vomiting #30 tabs 03/06/23 [Rx Last Taken Unknown] cinacalcet 30 mg tablet 60 mg PO SUMOWEFR THYROID 30 days #0 tabs 03/19/23 [Rx Last Taken 01/14/23] lactulose 20 gram/30 mL oral solution 20 g G-tube BID Check with primary doctor 03/19/23 [History Last Taken Unknown] lamotrigine 100 mg tablet 200 mg feeding tube DAILY Bipolar Disorder 03/19/23 [History Last Taken Unknown] lansoprazole 30 mg delayed release,disintegrating tablet 30 mg feeding tube BID GERD 03/19/23 [History Last Taken Unknown] lorazepam 2 mg tablet 2 mg feeding tube TID PRN AGITATION 3 days #6 tabs 03/19/23 [Rx Last Taken Unknown] losartan 25 mg tablet 25 mg feeding tube DAILY BP 03/19/23 [History Last Taken Unknown] memantine 10 mg tablet 10 mg feeding tube DAILY Check with primary doctor 30 days #0 tabs 03/19/23 [Rx Last Taken 01/14/23] misoprostol 200 mcg tablet 200 mcg G-tube 4X/DAYCM Check with primary doctor 0 03/19/23 [History Last Taken Unknown] Allergy/AdvReac Type Severity Reaction Status Date / Time No Known Allergies Allergy Verified 03/04/23 09:26 Family History Father CVA (cerebral vascular accident) Sister CVA (cerebral vascular accident) Cancer Surgical History History of esophagogastroduodenoscopy (EGD) Hx of esophagogastroduodenoscopy Social History household members: spouse housing: house Smoking Status: Former smoker Tobacco: How many years used: 4 second hand exposure: Yes alcohol intake: never substance use type: does not use what type of physical activity do you participate in: other details: OT - [facility] [place] frequency: daily valentina/presybeterian: Mormon seatbelt use: always additional social history: Ambulates at baseline without assistive device ROS Constitutional Constitutional: Denies chills, fever(s) or weight gain ENT HEENT: Denies headache(s), nasal congestion or nasal discharge Cardiovascular Cardiovascular: Denies chest pain or palpitations Respiratory/Chest Respiratory/Chest: Denies cough, excessive phlegm production or shortness of breath with exertion Gastrointestinal Gastrointestinal: Denies abdominal pain, nausea or vomiting Genitourinary Genitourinary: Denies dysuria Musculoskeletal Musculoskeletal: Denies joint pain or joint swelling Integumentary Integumentary: Denies rash or wounds Neurologic Neurologic: Denies focal weakness, numbness or tingling Psychiatric Psychiatric: Denies anxiety, auditory hallucinations, depression, homicidal ideation or suicidal ideation Vital Signs Vital Signs Vital Signs: Weight Weight: 122 lb 3 oz Body Mass Index (BMI) 20.3 Physical Exam Narrative Alert and oriented x 3, no apparent distress S1, S2, RRR Lung sounds clear anteriorly and posteriorly. No wheezes, rhonchi rales noted Abdomen soft, nontender. G-tube No edema Assessment & Plan Assessment/Plan (1) Bilateral pneumonia: PLAN: She has a history of recurrent aspiration pneumonias in the past. She has marked oropharyngeal and esophageal dysphagia from unknown reason. I suspect she has complications from parkinsonism that is contributing to possible upper motor neuron problems contributing to aspiration pneumonia. There is a possibility that she aspirated tube feedings when she was receiving bolos feedings due to gastroparesis. I do not think that she should bolus tube feedings due to the high aspiration risk. (2) Secondary parkinsonism: PLAN: Possibly secondary to bipolar medications specifically years of lithium usage (3) Esophageal stricture: PLAN: Status post dilation in the past. Protonix 40 mg twice daily. (4) Gastric paresis: PLAN: Recommend switching the PEG tube to a patch to as she did not tolerate the Reglan to in the past due to side effects.
[2023-04-01] MEDS: Lactated Ringers 1,000 ML 15 ML IV (11:01)
[2023-04-01] MEDS: 0.9% Saline Lock 10 ML Syringe IV (12:06)
--- NOTE | 2023-04-01 12:42 | OP.EGD_ITS ---
Patient Name: Fior Escamilla Procedure Date: 04/01/2023 11:41 AM Date of : 1950 Age: 72 Procedure: Upper GI endoscopy Indications: Dysphagia Providers: Francis Verma DO Medicines: Monitored Anesthesia Care Patient Profile: This is a 72 year old female. Refer to note in patient chart for documentation of history and physical. Patient has symptoms of acute dysphagia. Complications: No immediate complications. Procedure: Pre-Anesthesia Assessment: - Prior to the procedure, a History and Physical was performed, and patient medications and allergies were reviewed. The patient is competent. The risks and benefits of the procedure and the sedation options and risks were discussed with the patient. All questions were answered and informed consent was obtained. Patient identification and proposed procedure were verified by the physician. Mental Status Examination: normal. Prophylactic Antibiotics: The patient does not require prophylactic antibiotics. Prior Anticoagulants: The patient has taken aspirin. ASA Grade Assessment: III - A patient with severe systemic disease. After reviewing the risks and benefits, the patient was deemed in satisfactory condition to undergo the procedure. The anesthesia plan was to use monitored anesthesia care (MAC). Immediately prior to administration of medications, the patient was re-assessed for adequacy to receive sedatives. The heart rate, respiratory rate, oxygen saturations, blood pressure, adequacy of pulmonary ventilation, and response to care were monitored throughout the procedure. The physical status of the patient was re-assessed after the procedure. After obtaining informed consent, the endoscope was passed under direct vision. Throughout the procedure, the patient's blood pressure, pulse, and oxygen saturations were monitored continuously. The Colonoscope was introduced through the mouth, and advanced to the proximal jejunum. The upper GI endoscopy was accomplished without difficulty. The patient tolerated the procedure well. Scope In: 11:54:57 AM Scope Out: 12:31:03 PM Total Procedure Duration Time 0 hours 36 minutes 6 seconds Findings: One benign-appearing, intrinsic stenosis was found 32 to 37 cm from the incisors. This stenosis was severe and. The stenosis was traversed. A TTS dilator was passed through the scope. Dilation with a 15-16.5-18 mm balloon dilator was performed to 18 mm. The dilation site was examined and showed complete resolution of luminal narrowing. Estimated blood loss was minimal. There was evidence of an intact gastrostomy with a patent G-tube present in the gastric body. Patchy mildly erythematous mucosa without bleeding was found in the stomach. The patient was placed in the supine position for PEG placement. The stomach was insufflated to appose gastric and abdominal jeffries. A site was located in the cardia with excellent transillumination for placement. The abdominal wall was marked and prepped in a sterile manner. The area was anesthetized with 1 mL of 0.5% lidocaine. The trocar needle was introduced through the abdominal wall and into the stomach under direct endoscopic view. A snare was introduced through the endoscope and opened in the gastric lumen. The guide wire was passed through the trocar and into the open snare. The snare was closed around the guide wire. The endoscope and snare were removed, pulling the wire out through the mouth. A skin incision was made at the site of needle insertion. The endoscopically removable 20 Fr Bard gastrostomy tube was lubricated. The G-tube was tied to the guide wire and pulled through the mouth and into the stomach. The trocar needle was removed, and the gastrostomy tube was pulled out from the stomach through the skin. The external bumper was attached to the gastrostomy tube, and the tube was cut to remove the guide wire. The final position of the gastrostomy tube was confirmed by relook endoscopy, the distal tip was secured to the bowel wall with a clip, and skin marking noted to be 4 cm at the external bumper. The final tension and compression of the abdominal wall by the PEG tube and external bumper were checked. A 12 Fr EndoVive Tdvcqiy-Lbr-FYP (TTP) PEG-J tube was then passed through the gastric tube and advanced over a wire, which had been placed endoscopically to the jejunum. Appropriate position of the tip of the tube was confirmed endoscopically and then secured to the bowel wall with a clip. The feeding tube was capped, and the tube site cleaned and dressed. The examined duodenum was normal. Impression: - Benign-appearing esophageal stenosis. Dilated. - Intact gastrostomy with a patent G-tube present. - Erythematous mucosa in the stomach. - Normal examined duodenum. - An endoscopically removable PEG-J placement was successfully completed. - No specimens collected. Recommendation: - [facility]. - Resume previous diet. - Continue present medications. Procedure Code(s): --- Professional --- 22481, Esophagogastroduodenoscopy, flexible, transoral; with directed placement of percutaneous gastrostomy tube 61614, Esophagogastroduodenoscopy, flexible, transoral; with transendoscopic balloon dilation of esophagus (less than 30 mm diameter) 49916, Unlisted procedure, small intestine CPT copyright 2017 [employer]. All rights reserved. The codes documented in this report are preliminary and upon driver merchandiser review may be revised to meet current compliance requirements. Francis Verma DO 04/01/2023 12:41:55 PM This report has been signed electronically. Number of Addenda: 0 Note Initiated On: 04/01/2023 11:41 AM
--- NOTE | 2023-04-01 12:42 | OP.CCLET_ITS ---
04/01/2023 Jay Kincaid Re : Upper GI endoscopy procedure for Fior Escamilla Dear Codi This procedure was performed on Saturday, April 01, 2023. My impressions and recommendations are as follows: Impressions : - Benign-appearing esophageal stenosis. Dilated. - Intact gastrostomy with a patent G-tube present. - Erythematous mucosa in the stomach. - Normal examined duodenum. - An endoscopically removable PEG-J placement was successfully completed. - No specimens collected. Recommendations : - [facility]. - Resume previous diet. - Continue present medications. My findings are described in the full procedure note, which is enclosed. If I can be of further assistance, please feel free to contact me at . Sincerely, Francis Verma, 04/01/2023 12:41:55 PM This report has been signed electronically.
== END 2023-04-01 13:35 | disposition home or self-care (01) ==
LOC: EN 10:32 → AC 10:32
PROVIDERS: PCP Nurse Practitioner Family; Referring Provider Nurse Practitioner Family; Visit Provider Internal Medicine Gastroenterology
PROC: 0DJ08ZZ Inspection of Upper Intestinal Tract, Via Natural or Artificial Opening Endoscopic (ICD-10-PCS; CPT 43235; principal; 2023-04-01 11:25)
DX: Z93.1 Gastrostomy status (principal); G21.9 Secondary parkinsonism, unspecified; F31.9 Bipolar disorder, unspecified; N25.81 Secondary hyperparathyroidism of renal origin; N18.32 Chronic kidney disease, stage 3b; J18.9 Pneumonia, unspecified organism; K22.2 Esophageal obstruction; Z87.891 Personal history of nicotine dependence; K31.84 Gastroparesis; I12.9 Hypertensive chronic kidney disease with stage 1 through stage 4 chronic kidney disease, or unspecified chronic kidney disease; D64.9 Anemia, unspecified; Z79.899 Other long term (current) drug therapy; K22.10 Ulcer of esophagus without bleeding
CPT/HCPCS: 43246; 43249; A4216; J2405

== ENCOUNTER 2023-04-16 10:17 | Day surgery (SDC) | payer MEDICARE, SELFPAY ==
[2023-04-16 10:41] VITALS: BP 104/73; PULSE 91; RESP 16; TEMP 36.6; O2SAT 96; BMI 20.5
--- NOTE | 2023-04-16 11:00 | PCM.HP.BLA ---
History and Physical Date of Admission: 04/16/23 72 F who presents to have a PEG tube change into a package tube due to worsening gastroparesis.? She has a history of bipolar disorder, diabetes insipidus secondary to history of lithium use, gastroparesis, CKD stage IIIb, hyperparathyroidism and hypercalcemia, erosive esophagitis, PE, dysphagia with PEG tube placement who presented 03/07/2023 with increasing shortness of breath.? She had had EGD and PEG tube placement on 03/05 and was discharged on 03/06 but returned to the next night with shortness of breath.? She had gone home and vomited and was brought in with hypoxia and sepsis secondary to aspiration pneumonia.? She completed a 7-day course of Unasyn and respiratory status improved.? She was seen by GI during her admission and had an esophageal dilation but continued to have dysphagia and required PEG nutrition.? Nephrology followed for her hypernatremia and hypercalcemia which were available when initially increased after her D5 was discontinued and she was placed on tube feeds with free water flushes, these were titrated up patient has had improvement.? On day of discharge she reports feeling fairly well with no acute complaints.? She is currently in TCU for rehab.? I was called to evaluate the patient secondary to increase residuals. [facility] Medical History?(Updated 03/27/23 @ 00:02 by Background James) Acute renal insufficiency CITLALY (acute kidney injury) Anemia Anemia, unspecified Anxiety Back pain Bipolar disorder Bipolar disorder with moderate depression Bladder disease Delirium due to multiple etiologies Diabetes insipidus Dietary restriction Difficulty chewing Dysphagia Erosive esophagitis Falls Former smoker Gastric reflux Gastroparesis Generalized weakness Gram-negative bacteremia History of edema History of gastrostomy tube placement History of gastrostomy tube placement History of herpes zoster History of hiatal hernia Hypercalcemia Hypernatremia Hypertension Post-menopausal Pulmonary emboli Secondary hyperparathyroidism of renal origin Severe dehydration Severe malnutrition Severe malnutrition Stenosis of esophagus Tardive dyskinesia Thyroid disease Unsteady gait UTI (urinary tract infection) Wears glasses Home Medications methimazole 5 mg tablet 5 mg PO SUMOWEFR Thyroid 10/04/20 [History Last Taken 01/14/23] denosumab 60 mg/mL subcutaneous syringe (Prolia) 60 mg subcut .Q6MO osteoporosis 09/05/22 [History Last Taken 08/27/22] oxybutynin chloride 15 mg tablet,extended release 24 hr 15 mg PO DAILY Overactive bladder 09/05/22 [History Last Taken 01/14/23] polyethylene glycol 3350 17 gram/dose oral powder (Miralax) 17 g PO DAILY LAXATIVE 09/05/22 [History Last Taken 09/05/22] ferrous sulfate 325 mg (65 mg iron) tablet 325 mg PO QODAY SUPPLEMENT #30 tabs 12/24/22 [Rx Last Taken 01/13/23] sucralfate 100 mg/mL oral suspension 10 ml PO QACHS GERD 01/30/23 [History Last Taken Unknown] ondansetron HCl 4 mg tablet 4 mg PO Q6H PRN nausea and vomiting #30 tabs 03/06/23 [Rx Last Taken Unknown] cinacalcet 30 mg tablet 60 mg PO SUMOWEFR THYROID 30 days #0 tabs 03/19/23 [Rx Last Taken 01/14/23] lactulose 20 gram/30 mL oral solution 20 g G-tube BID Check with primary doctor 03/19/23 [History Last Taken Unknown] lamotrigine 100 mg tablet 200 mg feeding tube DAILY Bipolar Disorder 03/19/23 [History Last Taken Unknown] lansoprazole 30 mg delayed release,disintegrating tablet 30 mg feeding tube BID GERD 03/19/23 [History Last Taken Unknown] lorazepam 2 mg tablet 2 mg feeding tube TID PRN AGITATION 3 days #6 tabs 03/19/23 [Rx Last Taken Unknown] losartan 25 mg tablet 25 mg feeding tube DAILY BP 03/19/23 [History Last Taken Unknown] memantine 10 mg tablet 10 mg feeding tube DAILY Check with primary doctor 30 days #0 tabs 03/19/23 [Rx Last Taken 01/14/23] misoprostol 200 mcg tablet 200 mcg G-tube 4X/DAYCM Check with primary doctor 03/19/23 [History Last Taken Unknown] Allergy/AdvReac Type Severity Reaction Status Date / Time No Known Allergies Allergy ? ? Verified 03/04/23 09:26 Family History? Father CVA (cerebral vascular accident)Sister CVA (cerebral vascular accident) Cancer Surgical History? History of esophagogastroduodenoscopy (EGD) Hx of esophagogastroduodenoscopy Social History? household members:? spouse housing:? house Smoking Status:? Former smoker Tobacco: How many years used:? 4 second hand exposure:? Yes alcohol intake:? never substance use type:? does not use what type of physical activity do you participate in:? other details: OT [facility] [place] frequency:? daily valentina/sabianist:? Hoahaoism seatbelt use:? always additional social history:? Ambulates at baseline without assistive device ROS Constitutional Constitutional: Denies chills, fever(s) or weight gain ENT HEENT: Denies headache(s), nasal congestion or nasal discharge Cardiovascular Cardiovascular: Denies chest pain or palpitations Respiratory/Chest Respiratory/Chest: Denies cough, excessive phlegm production or shortness of breath with exertion Gastrointestinal Gastrointestinal: Denies abdominal pain, nausea or vomiting Genitourinary Genitourinary: Denies dysuria Musculoskeletal Musculoskeletal: Denies joint pain or joint swelling Integumentary Integumentary: Denies rash or wounds Neurologic Neurologic: Denies focal weakness, numbness or tingling Psychiatric Psychiatric: Denies anxiety, auditory hallucinations, depression, homicidal ideation or suicidal ideation Vital Signs Vital Signs Vital Signs: Weight Weight: ? 122 lb 3 oz ? Body Mass Index (BMI) ? 20.3? Physical Exam Narrative Alert and oriented x 3, no apparent distress S1, S2, RRR Lung sounds clear anteriorly and posteriorly.? No wheezes, rhonchi rales noted Abdomen soft, nontender.? G-tube No edema Assessment & Plan Assessment/Plan (1) Bilateral pneumonia: PLAN: She has a history of recurrent aspiration pneumonias in the past.? She has marked oropharyngeal and esophageal dysphagia from unknown reason.? I suspect she has complications from parkinsonism that is contributing to possible upper motor neuron problems contributing to aspiration pneumonia.? There is a possibility that she aspirated tube feedings when she was receiving bolos feedings due to gastroparesis. I do not think that she should bolus tube feedings due to the high aspiration risk.? (2) Secondary parkinsonism: PLAN: Possibly secondary to bipolar medications specifically years of lithium usage (3) Esophageal stricture: PLAN: Status post dilation in the past.? Protonix 40 mg twice daily. (4) Gastric paresis: PLAN: Recommend switching the PEG tube to a patch to as she did not tolerate the Reglan to in the past due to side effects. We will also place a esophageal stent to keep her esophageal stricture open. She had multiple biopsies of the esophageal stricture have all been benign. She was explained alternatives, risk, benefits including outstanding bleeding, infection, sepsis, perforation, need for emergent surgery . She will have an ASA of 3.
--- NOTE | 2023-04-16 12:00 | RAD_ITS ---
PROCEDURE: EGD with esophageal stent. DATE OF EXAMINATION: April 16, 2023. INDICATION: Female, 72 years old. Esophageal stricture. FLUOROSCOPY TIME (if supplied): (34.7 seconds) minutes/seconds. 6 fluoroscopic images. 3.49 mGy RAD/Fluoroscopy 1 Hr or Less IMPRESSION: Intraoperative imaging provided for esophageal stent placement. The stent is in good position. Electronically Signed: Cheng Schmitt MD at 14:03 EDT ,
[2023-04-16 13:05] VITALS: BP 104/73; BP 128/85; PULSE 87; RESP 16; TEMP 36.1; O2SAT 100
[2023-04-16 13:10] VITALS: BP 104/73; BP 138/83; PULSE 86; RESP 16; O2SAT 100
[2023-04-16 13:15] VITALS: BP 104/73; BP 140/77; PULSE 85; RESP 16; O2SAT 100
[2023-04-16 13:19] VITALS: BP 104/73; BP 134/75; PULSE 85; RESP 16; O2SAT 98
--- NOTE | 2023-04-16 13:23 | OP.EGD_ITS ---
Patient Name: Fior Escamilla Procedure Date: 04/16/2023 10:31 AM Date of : 1950 Age: 72 Procedure: Upper GI endoscopy Indications: Dysphagia Providers: DO Brittani Keene MD: Jay Kincaid Medicines: Monitored Anesthesia Care Complications: No immediate complications. Procedure: Pre-Anesthesia Assessment: - Prior to the procedure, a History and Physical was performed, and patient medications and allergies were reviewed. The patient is competent. The risks and benefits of the procedure and the sedation options and risks were discussed with the patient. All questions were answered and informed consent was obtained. Patient identification and proposed procedure were verified by the physician. Prophylactic Antibiotics: The patient does not require prophylactic antibiotics. Prior Anticoagulants: The patient has taken no previous anticoagulant or antiplatelet agents. ASA Grade Assessment: II - A patient with mild systemic disease. After reviewing the risks and benefits, the patient was deemed in satisfactory condition to undergo the procedure. The anesthesia plan was to use monitored anesthesia care (MAC). Immediately prior to administration of medications, the patient was re-assessed for adequacy to receive sedatives. The heart rate, respiratory rate, oxygen saturations, blood pressure, adequacy of pulmonary ventilation, and response to care were monitored throughout the procedure. The physical status of the patient was re-assessed after the procedure. After obtaining informed consent, the endoscope was passed under direct vision. Throughout the procedure, the patient's blood pressure, pulse, and oxygen saturations were monitored continuously. The gastroscope was introduced through the mouth, and advanced to the second part of duodenum. The upper GI endoscopy was accomplished without difficulty. The patient tolerated the procedure well. Scope In: 12:08:58 PM Scope Out: 12:54:40 PM Total Procedure Duration Time 0 hours 45 minutes 42 seconds Findings: One benign-appearing, intrinsic stenosis was found 32 to 38 cm from the incisors. This stenosis was severe and measured 3 mm (inner diameter) x 6 cm (in length). The stenosis was traversed after dilation. A TTS dilator was passed through the scope. Dilation with a 15-16.5-18 mm balloon dilator was performed to 15 mm under fluoroscopic guidance. The dilation site was examined and showed moderate improvement in luminal narrowing. Estimated blood loss was minimal. This was stented with a 10 mm x 60 mm covered WallFlex stent under fluoroscopic guidance, proximal margin at 30 cm and distal margin at 30 cm from the incisors. A medium-sized hiatal hernia was present. There was evidence of an intact gastrostomy with a patent G-tube present on the greater curvature of the stomach. This was characterized by healthy appearing mucosa. No gross lesions were noted in the first portion of the duodenum. Impression: - Benign-appearing esophageal stenosis. Dilated. Prosthesis placed. - Medium-sized hiatal hernia. - Intact gastrostomy with a patent G-tube present characterized by healthy appearing mucosa. - No gross lesions in the first portion of the duodenum. - No specimens collected. Recommendation: - Discharge patient to home. - Resume previous diet. - Continue present medications. Procedure Code(s): --- Professional --- 59861, Esophagogastroduodenoscopy, flexible, transoral; with placement of endoscopic stent (includes pre- and post-dilation and guide wire passage, when performed) 03533, 26, Intraluminal dilation of strictures and/or obstructions (eg, esophagus), radiological supervision and interpretation 80688, 26, Intraluminal dilation of strictures and/or obstructions (eg, esophagus), radiological supervision and interpretation CPT copyright 2017 [employer]. All rights reserved. The codes documented in this report are preliminary and upon striper spray gun review may be revised to meet current compliance requirements. Francis Verma DO 04/16/2023 1:22:42 PM This report has been signed electronically. Number of Addenda: 0 Note Initiated On: 04/16/2023 10:31 AM
--- NOTE | 2023-04-16 13:23 | OP.CCLET_ITS ---
04/16/2023 Jay Kincaid Re : Upper GI endoscopy procedure for Fior Escamilla Dear Codi This procedure was performed on April. My impressions and recommendations are as follows: Impressions : - Benign-appearing esophageal stenosis. Dilated. Prosthesis placed. - Medium-sized hiatal hernia. - Intact gastrostomy with a patent G-tube present characterized by healthy appearing mucosa. - No gross lesions in the first portion of the duodenum. - No specimens collected. Recommendations : - Discharge patient to home. - Resume previous diet. - Continue present medications. My findings are described in the full procedure note, which is enclosed. If I can be of further assistance, please feel free to contact me at . Sincerely, Francis Verma, 04/16/2023 1:22:42 PM This report has been signed electronically.
[2023-04-16 13:43] VITALS: BP 104/73
== END 2023-04-16 14:11 | disposition home or self-care (01) ==
LOC: EN 10:19 → AC 10:20
PROVIDERS: PCP Nurse Practitioner Family; Referring Provider Nurse Practitioner Family; Visit Provider Internal Medicine Gastroenterology
PROC: 0DJ08ZZ Inspection of Upper Intestinal Tract, Via Natural or Artificial Opening Endoscopic (ICD-10-PCS; CPT 43235; principal; 2023-04-16 11:25)
DX: Z46.59 Encounter for fitting and adjustment of other gastrointestinal appliance and device (principal); Z93.1 Gastrostomy status; N25.81 Secondary hyperparathyroidism of renal origin; E23.2 Diabetes insipidus; N18.32 Chronic kidney disease, stage 3b; K22.2 Esophageal obstruction; I12.9 Hypertensive chronic kidney disease with stage 1 through stage 4 chronic kidney disease, or unspecified chronic kidney disease; Z87.891 Personal history of nicotine dependence; K31.84 Gastroparesis; E05.90 Thyrotoxicosis, unspecified without thyrotoxic crisis or storm; K21.9 Gastro-esophageal reflux disease without esophagitis; K44.9 Diaphragmatic hernia without obstruction or gangrene; K22.10 Ulcer of esophagus without bleeding; Z87.19 Personal history of other diseases of the digestive system; Z79.899 Other long term (current) drug therapy
CPT/HCPCS: 43266; 76000; J7120; J2405

== ENCOUNTER 2023-04-20 17:49 | Observation (INO) | payer MEDICARE, SELFPAY ==
[2023-04-20] VITALS (7 sets, daily range): BP systolic 88–119; BP diastolic 56–73; PULSE 80–95; RESP 16; TEMP 35.6–36.8; O2SAT 92–100; BMI 20.2
--- NOTE | 2023-04-20 19:53 | EDS_ITS ---
HPI History of Present Illness Chief Complaint: Abd Pain Narrative Narrative: Patient was feeling lightheaded at home. Also per her J-tube was clogged up and he could not infuse fluids or food today. Chief complaint is abdominal pain however patient is denying any abdominal pain. She tells me she just feels lightheaded otherwise she feels fine. No recent fevers or chills no back pain no urinary symptoms. [facility] Medical History Acute renal insufficiency CITLALY (acute kidney injury) Anemia Anemia, unspecified Anxiety Back pain Bipolar disorder Bipolar disorder with moderate depression Bladder disease Delirium due to multiple etiologies Diabetes insipidus Dietary restriction Difficulty chewing Dysphagia Erosive esophagitis Falls Former smoker Gastric reflux Gastroparesis Generalized weakness Gram-negative bacteremia History of edema History of gastrostomy tube placement History of herpes zoster History of hiatal hernia History of jejunostomy tube placement Hypercalcemia Hypernatremia Hypertension Post-menopausal Pulmonary emboli Secondary hyperparathyroidism of renal origin Severe dehydration Severe malnutrition Severe malnutrition Stenosis of esophagus Tardive dyskinesia Thyroid disease Unsteady gait UTI (urinary tract infection) Wears glasses Home Medications methimazole 5 mg tablet 5 mg PO SUMOWEFR Thyroid 10/04/20 [History Last Taken 01/14/23] denosumab 60 mg/mL subcutaneous syringe (Prolia) 60 mg subcut .Q6MO osteoporosis 09/05/22 [History Last Taken 08/27/22] oxybutynin chloride 15 mg tablet,extended release 24 hr 15 mg PO DAILY Overactive bladder 09/05/22 [History Last Taken 01/14/23] polyethylene glycol 3350 17 gram/dose oral powder (Miralax) 17 g PO DAILY LAX ATIVE 09/05/22 [History Last Taken 09/05/22] ferrous sulfate 325 mg (65 mg iron) tablet 325 mg PO QODAY SUPPLEMENT #30 tabs 12/24/22 [Rx Last Taken 01/13/23] ondansetron HCl 4 mg tablet 4 mg PO Q6H PRN nausea and vomiting #30 tabs 03/06/23 [Rx Last Taken Unknown] lactulose 20 gram/30 mL oral solution 20 g G-tube BID Check with primary doctor 03/19/23 [History Last Taken Unknown] lamotrigine 100 mg tablet 200 mg feeding tube DAILY Bipolar Disorder 03/19/23 [History Last Taken 04/16/23] losartan 25 mg tablet 25 mg feeding tube DAILY BP 03/19/23 [History Last Taken 04/16/23] memantine 10 mg tablet 10 mg feeding tube DAILY Check with primary doctor 30 days #0 tabs 03/19/23 [Rx Last Taken 04/16/23] cinacalcet 30 mg tablet 60 mg PO BID 30 days #120 tabs 04/08/23 [Rx Last Taken Unknown] misoprostol 200 mcg tablet 200 mcg G-tube 4X/DAYCM 30 days #120 tabs 04/08/23 [Rx Last Taken Unknown] lansoprazole 30 mg capsule,delayed release 30 mg PO DAILY #30 caps 04/10/23 [Rx Last Taken Unknown] lorazepam 2 mg tablet 2 mg feeding tube Q6H PRN PRN AGITATION 04/13/23 [History Last Taken 04/16/23] hyoscyamine sulfate 0.125 mg sublingual tablet 0.125 mg PO BID PRN dyspepsia #14 tabs 04/17/23 [Rx Last Taken Unknown] prochlorperazine 25 mg rectal suppository 25 mg VA Q12H #12 ea 04/20/23 [Rx Last Taken Unknown] Allergy/AdvReac Type Severity Reaction Status Date / Time No Known Allergies Allergy Verified 04/20/23 17:53 Family History Father CVA (cerebral vascular accident) Sister CVA (cerebral vascular accident) Cancer Surgical History History of esophagogastroduodenoscopy (EGD) Hx of esophagogastroduodenoscopy Social History household members: spouse housing: house Smoking Status: Former smoker Tobacco: How many years used: 4 second hand exposure: Yes alcohol intake: never substance use type: does not use what type of physical activity do you participate in: other details: OT PT - [facility] [place] frequency: daily valentina/mandaeism: Confucianism seatbelt use: always additional social history: Ambulates at baseline without assistive device ROS ROS ED ROS Narrative Past medical history: Reviewed, it is quite extensive includes chronic debility gastroparesis J-tube placement, CKD, history of electrolyte abnormalities. Medications: Reviewed in [employer] Social history: Noncontributory Review of systems: All systems negative except as indicated General: No fever. She feels slightly lightheaded Eyes: No visual changes ENT: No upper airway congestion, normal voice Neck: No neck pain Cardiovascular: No chest pain Respiratory: No shortness of breath or cough Gastrointestinal: No abdominal pain, nausea vomiting or diarrhea. Clogged J- tube Genitourinary: No dysuria Musculoskeletal: Denies myalgias no difficulty with ambulation Skin: No rash Neurological: No memory loss, confusion or any focal weakness Psych: No recent behavioral changes EXAM Physical Exam Narrative Exam Narrative: Physical exam General: Patient does not appear in any distress she does appear chronically ill but not acutely ill. Head: Normocephalic, Atraumatic Eyes: Conjunctiva not pale ENT: Dry mucous membranes Neck: Supple, Nontender, No lymphadenopathy Cardiovascular: Regular rate, Regular rhythm Respiratory: No distress, CTA bilaterally Abdomen: Soft, Nontender, Nondistended. J-tube is intact, no signs of infection. Back: Nontender, Normal Inspection. Negative for: CVA tenderness Extremities: Nontender, No edema Skin: Normal color, No rash Neurological: Alert, Normal Strength, Normal Sensation Const Vital Signs: 04/20/23 17:51 04/20/23 18:33 04/20/23 20:24 Temperature 97.1 F L Temperature Source Temporal Pulse Rate 95 86 80 Respiratory Rate 16 16 Blood Pressure 98/69 96/62 88/56 L Blood Pressure Mean 78 73 66 Pulse Ox 100 92 96 Oxygen Delivery Method Room Air Room Air MDM MDM MDM Narrative Medical decision making narrative: Procedure note Patient's J-tube was quite unclogged I removed the inner tubing about a [address], I cleaned and broke down debris it and after that I was able to flush quite well. Verbal consent was obtained. Patient tolerated procedure well. MDM: Patient is somewhat uremic and baseline creatinine is higher than normal she is given IV fluids she is also anemic and is likely lower since she is dehydrated. Because of this and because she is symptomatic I will transfuse her. I will also admit her. Her J-tube is now working well. I talked to her who also gave me history. Patient will need to get her tube feedings upstairs. Otherwise she will need admission and fluids and blood. Patient's was worried about calcium and sodium however there relatively unremarkable. I discussed with hospitalist for admission Lab Data Labs: Laboratory Results - last 24 hr 04/20/23 04/20/23 20:00 20:00 WBC 7.0 RBC 2.41 L Hgb 6.8 L Hct 22.3 L MCV 92.5 MCH 28.2 MCHC 30.5 L RDW Std Deviation 52.6 H RDW Coeff of Lee 15.7 H Plt Count 297 MPV 9.0 Immature Gran % (Auto) 0.400 Neut % (Auto) 63.8 Lymph % (Auto) 23.2 Knott % (Auto) 9.7 Eos % (Auto) 2.8 Baso % (Auto) 0.1 Absolute Neuts (auto) 4.5 Absolute Lymphs (auto) 1.63 Nucleated RBC % 0 Sodium 137 Potassium 5.0 Chloride 104 Carbon Dioxide 27.0 Anion Gap 6 BUN 70 H Creatinine 1.99 H Estim Creat Clear Calc 22.00 Est GFR (MDRD) Af Amer 32 L Est GFR (MDRD) Non-Af 26 L BUN/Creatinine Ratio 35.2 H Glucose 93 Calcium 8.2 L Total Bilirubin 0.10 L AST 10 L ALT 17 Alkaline Phosphatase 76 Total Protein 5.9 L Albumin 2.5 L Globulin 3.4 Albumin/Globulin Ratio 0.7 L Discharge Plan Triage Chief Complaint: Abd Pain ED Provider: Carlos Tierney Dx/Rx/DC Orders Clinical Impression: Anemia, Dehydration, Acute uremia Prescriptions: No Action methimazole 5 MG tablet 5 mg PO SUMOWEFR oxybutynin chloride 15 mg tablet extended release 24hr 15 mg PO DAILY Label Comments: take 1 tablet by mouth every morning polyethylene glycol 3350 [Miralax] 17 gram/dose Powder 17 g PO DAILY Prolia 60 mg/mL Syringe 60 mg SUBCUT .Q6MO ferrous sulfate 325 MG tablet 325 mg PO QODAY Qty: 30 0RF lorazepam 2 mg tablet 2 mg feeding tube Q6H PRN PRN (Reason: AGITATION) ondansetron HCl 4 mg tablet 4 mg PO Q6H PRN (Reason: nausea and vomiting) Qty: 30 0RF memantine 10 MG tablet 10 mg feeding tube DAILY 30 Days Qty: 0 0RF losartan 25 mg tablet 25 mg feeding tube DAILY lamotrigine 100 mg tablet 200 mg feeding tube DAILY Label Comments: take 1 tablet by mouth once daily for 2 WEEKS then INCREASE to 1 ... (REFER TO PRESCRIPTION NOTES). lactulose 20 gram/30 mL solution 20 g G-tube BID misoprostol 200 mcg Tablet 200 mcg G-tube 4X/DAYCM 30 Days Qty: 120 0RF cinacalcet 30 mg Tablet 60 mg PO BID 30 Days Qty: 120 0RF lansoprazole 30 mg capsule,delayed release(DR/EC) 30 mg PO DAILY Qty: 30 0RF hyoscyamine sulfate 0.125 mg tablet, sublingual 0.125 mg PO BID PRN (Reason: dyspepsia) Qty: 14 0RF prochlorperazine 25 mg suppository 25 mg VA Q12H Qty: 12 3RF Primary Care Provider: Jay Kincaid NP Referrals: Jay Kincaid NP, [employer] [Primary Care Provider] - Disposition Disposition: Acute Care Hospital [facility]
[2023-04-20 20:07] LABS: Absolute Lymphocyte Count 1.63 X10^3/uL (0.83-4.51); Absolute Neutrophil Count 4.5 X10^3/uL (2.0-7.7); Basophil# 0.01 X10^3/uL; Basophil% 0.1 % (0-1); Eosinophils% 2.8 % (0-5); Hematocrit 22.3 % (37-47); Hemoglobin 6.8 g/dL (12.0-15.0); Lymphocyte # 1.63 X10^3/ul (0.83-4.51); Lymphocyte % 23.2 % (19-41); Mean Corp Hgb Conc 30.5 g/dL (32-36); Mean Corpuscular Hgb 28.2 pg (27.0-32.0); Mean Corpuscular Volume 92.5 fL (81-99); Monocyte# 0.68 X10^3/uL; Monocyte% 9.7 % (0-10); NRBC Flagged by Analyzer 0 % (0-5); Neutrophil # 4.48 X10^3/uL (2.7-7.7); Neutrophil % 63.8 % (47-70); Platelet Count 297 K/mm3 (150-450); RBC Distribution Width CV 15.7 % (11.6-14.6); RBC Distribution Width SD 52.6 fl (35.1-43.9); Red Blood Count 2.41 M/mm3 (4.2-5.4)
[2023-04-20 20:29] LABS: ALB/GLOB Ratio 0.7 RATIO (0.9-2.4); AST(SGOT) 10 U/L (15-37); Alanine Aminotransfer ALT/SGPT 17 U/L (13-56); Albumin, Serum 2.5 g/dL (3.2-5.0); Alkaline Phosphatase 76 U/L (45-117); Anion Gap 6 (5-15); BUN 70 mg/dL (7-18); BUN/Creat Ratio 35.2 RATIO (10-20); Calcium,Total 8.2 mg/dL (8.5-10.1); Chloride 104 mmol/L (98-107); Creatinine, Serum 1.99 mg/dL (0.55-1.02); EST Glomerular Filtration Rate 26 mL/min (>60); Est Glom Filt Rate - Afr Amer 32 mL/min (>60); Globulin 3.4 g/dL (2.2-4.2); Glucose 93 mg/dL (74-106); Protein, Total 5.9 g/dL (6.4-8.2); Sodium Level 137 mmol/L (136-145)
--- NOTE | 2023-04-20 21:45 | PCM.HP.STD ---
[facility] - General General Date of Admission: 04/20/23 Date of Service: 04/20/23 Chief Complaint: Generalized weakness HPI Narrative SIMONA HERNANDEZ, is a 72 F who presents to the emergency room with chief complaint of obstructed J-tube. Patient was unable to get flushes or nutrient supplements through her J-tube. This was repaired in the emergency room and the J-tube was then able to be used. Patient currently denies any chest pain, shortness of breath, fevers or chills or abdominal pain ,however, she does complain of dizziness and fatigue. Laboratory studies were remarkable for hemoglobin of 6.8 therefore a unit of red blood cells was ordered for transfusion. The patient has significant history of a esophageal evaluation this past for which she had a stent placed for stenosis. remarked that she was told by Dr. Verma that she could start taking her medications p.o. since her EGD on she has had some bouts of scant bilious emesis. Patient will be admitted to general medical floor for observation and likely discharge home tomorrow. [facility] Medical History Acute renal insufficiency CITLALY (acute kidney injury) Anemia Anemia, unspecified Anxiety Back pain Bipolar disorder Bipolar disorder with moderate depression Bladder disease Delirium due to multiple etiologies Diabetes insipidus Dietary restriction Difficulty chewing Dysphagia Erosive esophagitis Falls Former smoker Gastric reflux Gastroparesis Generalized weakness Gram-negative bacteremia History of edema History of gastrostomy tube placement History of herpes zoster History of hiatal hernia History of jejunostomy tube placement Hypercalcemia Hypernatremia Hypertension Post-menopausal Pulmonary emboli Secondary hyperparathyroidism of renal origin Severe dehydration Severe malnutrition Severe malnutrition Stenosis of esophagus Tardive dyskinesia Thyroid disease Unsteady gait UTI (urinary tract infection) Wears glasses Home Medications methimazole 5 mg tablet 5 mg PO SUMOWEFR Thyroid 10/04/20 [History Last Taken 01/14/23] denosumab 60 mg/mL subcutaneous syringe (Prolia) 60 mg subcut .Q6MO osteoporosis 09/05/22 [History Last Taken 08/27/22] oxybutynin chloride 15 mg tablet,extended release 24 hr 15 mg PO DAILY Overactive bladder 09/05/22 [History Last Taken 01/14/23] polyethylene glycol 3350 17 gram/dose oral powder (Miralax) 17 g PO DAILY LAXATIVE 09/05/22 [History Last Taken 09/05/22] ferrous sulfate 325 mg (65 mg iron) tablet 325 mg PO QODAY SUPPLEMENT #30 tabs 12/24/22 [Rx Last Taken 01/13/23] ondansetron HCl 4 mg tablet 4 mg PO Q6H PRN nausea and vomiting #30 tabs 03/06/23 [Rx Last Taken Unknown] lactulose 20 gram/30 mL oral solution 20 g G-tube BID Check with primary doctor 03/19/23 [History Last Taken Unknown] lamotrigine 100 mg tablet 200 mg feeding tube DAILY Bipolar Disorder 03/19/23 [History Last Taken 04/16/23] losartan 25 mg tablet 25 mg feeding tube DAILY BP 03/19/23 [History Last Taken 04/16/23] memantine 10 mg tablet 10 mg feeding tube DAILY Check with primary doctor 30 days #0 tabs 03/19/23 [Rx Last Taken 04/16/23] cinacalcet 30 mg tablet 60 mg PO BID 30 days #120 tabs 04/08/23 [Rx Last Taken Unknown] misoprostol 200 mcg tablet 200 mcg G-tube 4X/DAYCM 30 days #120 tabs 04/08/23 [Rx Last Taken Unknown] lansoprazole 30 mg capsule,delayed release 30 mg PO DAILY #30 caps 04/10/23 [Rx Last Taken Unknown] lorazepam 2 mg tablet 2 mg feeding tube Q6H PRN PRN AGITATION 04/13/23 [History Last Taken 04/16/23] hyoscyamine sulfate 0.125 mg sublingual tablet 0.125 mg PO BID PRN dyspepsia #14 tabs 04/17/23 [Rx Last Taken Unknown] prochlorperazine 25 mg rectal suppository 25 mg AR Q12H #12 ea 04/20/23 [Rx Last Taken Unknown] Allergy/AdvReac Type Severity Reaction Status Date / Time No Known Allergies Allergy Verified 04/20/23 17:53 Family History Father CVA (cerebral vascular accident) Sister CVA (cerebral vascular accident) Cancer Surgical History History of esophagogastroduodenoscopy (EGD) Hx of esophagogastroduodenoscopy Social History household members: spouse housing: house Smoking Status: Former smoker Tobacco: How many years used: 4 second hand exposure: Yes alcohol intake: never substance use type: does not use what type of physical activity do you participate in: other details: OT PT - [facility] IN [place] frequency: daily valentina/synagogue: Yarsanism seatbelt use: always additional social history: Ambulates at baseline without assistive device ROS Constitutional Constitutional: Reports weakness; Denies chills or fever(s) Eyes Eyes: Denies blurry vision ENT HEENT: Denies abnormal hearing Cardiovascular Cardiovascular: Denies chest pain Respiratory/Chest Respiratory/Chest: Denies cough or hemoptysis Gastrointestinal Gastrointestinal: Reports nausea; Denies abdominal pain or diarrhea Genitourinary Genitourinary: Denies dysuria Musculoskeletal Musculoskeletal: Denies back pain Integumentary Integumentary: Denies dry skin Neurologic Neurologic: Denies abnormal gait or abnormal speech Psychiatric Psychiatric: Reports anxiety Vital Signs Vital Signs Vital Signs: 04/20/23 17:51 04/20/23 18:33 04/20/23 20:24 Temperature 97.1 F L Temperature Source Temporal Pulse Rate 95 86 80 Respiratory Rate 16 16 Blood Pressure 98/69 96/62 88/56 L Blood Pressure Mean 78 73 66 Pulse Ox 100 92 96 Oxygen Delivery Method Room Air Room Air Weight Weight: 122 lb Body Mass Index (BMI) 20.2 Physical Exam Const oriented x3 General Appearance: cooperative and well developed HEENT normocephalic and head/scalp atraumatic Eyes PERRL and EOMs intact bilaterally Neck no lymphadenopathy Lymph Lymphatic: no lymphadenopathy noted Resp normal respiratory effort, normal air movement and clear to auscultation bilaterally Cardio regular rate, regular rhythm, S1 normal heart sound and S2 normal heart sound GI normal to inspection, nondistended, normoactive bowel sounds Extremity normal capillary refill Skin General Skin Exam: no breakdown Neuro no focal motor deficits and no sensory deficits noted Psych cooperative Psych Narrative: Labile mood Mood & Affect: anxious Results Lab / Micro Data Result Diagrams: 04/20/23 20:00 04/20/23 20:00 Labs: Laboratory Results - last 24 hr 04/20/23 20:00: WBC 7.0, RBC 2.41 L, Hgb 6.8 L, Hct 22.3 L, MCV 92.5, MCH 28.2, MCHC 30.5 L, RDW Std Deviation 52.6 H, RDW Coeff of Lee 15.7 H, Plt Count 297, MPV 9.0, Immature Gran % (Auto) 0.400, Neut % (Auto) 63.8, Lymph % (Auto) 23.2, [place] % (Auto) 9.7, Eos % (Auto) 2.8, Baso % (Auto) 0.1, Absolute Neuts (auto) 4.5, Absolute Lymphs (auto) 1.63, Nucleated RBC % 0 04/20/23 20:00: Sodium 137, Potassium 5.0, Chloride 104, Carbon Dioxide 27.0, Anion Gap 6, BUN 70 H, Creatinine 1.99 H, Estim Creat Clear Calc 22.00, Est GFR (MDRD) Af Amer 32 L, Est GFR (MDRD) Non-Af 26 L, BUN/Creatinine Ratio 35.2 H, Glucose 93, Calcium 8.2 L, Total Bilirubin 0.10 L, AST 10 L, ALT 17, Alkaline Phosphatase 76, Total Protein 5.9 L, Albumin 2.5 L, Globulin 3.4, Albumin/Globulin Ratio 0.7 L Assessment & Plan Assessment/Plan (1) Bipolar disorder: (2) Nondiabetic gastroparesis: (3) Iron deficiency anemia: (4) Hypertension: PLAN: Plan 1. Anemia?admit patient for observation as she receives transfusion, repeat CBC in a.m. 2. Nondiabetic gastroparesis?continue flushes and nutrient supplementation per routine at home protocol 3. Hypertension?continue routine home medications 4. Bipolar disorder?continue routine home medications 5. DVT prophylaxis?SCDs due to anemia will not use Lovenox Charges/Coding Visit Charges OBSV E&M: 63768 Observ/hosp same date L2
[2023-04-21 00:10] VITALS: BP 130/75; PULSE 75; RESP 14; TEMP 36.8; O2SAT 98; BMI 20.3
[2023-04-21] MEDS: proCHLORPERazine 25 MG Suppos. RC ×2 (00:41→09:51)
[2023-04-21] MEDS: Cinacalcet HCl 30 MG Tablet 60 MG PO ×2 (00:42→09:50)
[2023-04-21] MEDS: LORazepam 1 MG Tablet 2 MG PO ×2 (00:42→11:33)
[2023-04-21] MEDS: miSOPROStol 200 MCG Tablet GT (00:42)
[2023-04-21 02:10] VITALS: BP 124/78; PULSE 83; RESP 14; TEMP 36.8; O2SAT 97
[2023-04-21 02:33] VITALS: BP 135/73; PULSE 90; RESP 15; TEMP 36.9; O2SAT 98
[2023-04-21] MEDS: Vital AF 1.2 Cal Liquid 1,000 ML 75 ML GT (03:21)
--- NOTE | 2023-04-21 04:53 | NURSING ---
VITALS DOCUMENTED AT 0233 WERE ACTUALLY DONE AT 0310
[2023-04-21 07:10] LABS: Absolute Lymphocyte Count 1.29 X10^3/uL (0.83-4.51); Absolute Neutrophil Count 4.4 X10^3/uL (2.0-7.7); Basophil# 0.01 X10^3/uL; Basophil% 0.1 % (0-1); Eosinophil# 0.24 X10^3/uL; Eosinophils% 3.6 % (0-5); Hematocrit 23.4 % (37-47); Hemoglobin 7.3 g/dL (12.0-15.0); Lymphocyte # 1.29 X10^3/ul (0.83-4.51); Lymphocyte % 19.2 % (19-41); Mean Corp Hgb Conc 31.2 g/dL (32-36); Mean Corpuscular Hgb 28.9 pg (27.0-32.0); Mean Corpuscular Volume 92.5 fL (81-99); Mean Platelet Vol. 8.9 fl (6.2-12.0); Monocyte% 11.9 % (0-10); NRBC Flagged by Analyzer 0 % (0-5); Neutrophil # 4.35 X10^3/uL (2.7-7.7); Neutrophil % 64.8 % (47-70); Platelet Count 269 K/mm3 (150-450); RBC Distribution Width CV 15.9 % (11.6-14.6); RBC Distribution Width SD 53.1 fl (35.1-43.9); Red Blood Count 2.53 M/mm3 (4.2-5.4); White Blood Count 6.7 K/mm3 (4.4-11.0)
[2023-04-21 08:40] VITALS: BP 106/56; PULSE 94; RESP 18; TEMP 36.9; O2SAT 96
[2023-04-21] MEDS: lamoTRIgine 100 MG Tablet 200 MG PO (09:50)
[2023-04-21] MEDS: Tolterodine Tartrate 4 MG CAP.SA PO (09:50)
[2023-04-21] MEDS: Pantoprazole Sodium 40 MG Tablet PO (09:50)
[2023-04-21] MEDS: Polyethylene Glycol 3350 17 GM PACKET PO (09:50)
[2023-04-21] MEDS: Memantine Hydrochloride 10 MG Tablet PO (09:50)
[2023-04-21] MEDS: Losartan Potassium 25 MG Tablet PO (09:51)
[2023-04-21 10:44] VITALS: O2SAT 96
--- NOTE | 2023-04-21 11:25 | DS.PCM_ITS ---
Providers Date of Admission: 04/20/23 Date of Discharge: 04/21/23 Primary Care Physician: HARIKA BerumenC Reason For Visit: anemia,uremia Diagnosis Discharge Diagnosis (1) Bipolar disorder: Status: Chronic (2) Nondiabetic gastroparesis: Status: Chronic Code(s): K31.84 - Gastroparesis (3) Iron deficiency anemia: Status: Acute Code(s): D50.9 - Iron deficiency anemia, unspecified (4) Hypertension: Status: Chronic Code(s): I10 - Essential (primary) hypertension Medications at Discharge Home Medications methimazole 5 mg tablet 5 mg PO SUMOWEFR Thyroid 10/04/20 denosumab 60 mg/mL subcutaneous syringe (Prolia) 60 mg subcut .Q6MO osteoporosis 09/05/22 oxybutynin chloride 15 mg tablet,extended release 24 hr 15 mg PO DAILY Overactive bladder 09/05/22 polyethylene glycol 3350 17 gram/dose oral powder (Miralax) 17 g PO DAILY PRN constipation 09/05/22 ferrous sulfate 325 mg (65 mg iron) tablet 325 mg PO QODAY SUPPLEMENT #30 tabs 12/24/22 ondansetron HCl 4 mg tablet 4 mg PO Q6H PRN nausea and vomiting #30 tabs 03/06/23 lactulose 20 gram/30 mL oral solution 20 g PO BID Check with primary doctor 03/19/23 lamotrigine 100 mg tablet 200 mg PO DAILY Bipolar Disorder 03/19/23 losartan 25 mg tablet 25 mg PO DAILY BP 03/19/23 cinacalcet 30 mg tablet 60 mg PO BID 30 days #120 tabs 04/08/23 lorazepam 2 mg tablet 2 mg PO Q8 04/13/23 hyoscyamine sulfate 0.125 mg sublingual tablet 0.125 mg PO BID PRN dyspepsia #14 tabs 04/17/23 lansoprazole 30 mg capsule,delayed release 30 mg PO BID 04/20/23 memantine 10 mg tablet 10 mg PO DAILY Check with primary doctor 04/20/23 misoprostol 200 mcg tablet 200 mcg PO 4X/DAYCM 04/20/23 prochlorperazine 25 mg rectal suppository 25 mg UT Q12H #12 ea 04/20/23 Hospital Course Operations None Procedures None Summary of Care Provided Minutes Spent on Discharge: 45 Hospital Course: Patient is a 72-year-old female with past medical history as outlined was admitted through the ED on 04/20/2023 with a complaint of an obstructed G-tube. She could not flush the tube or getting nutrient supplements through the G-tube. This was fixed in the ED and she was subsequently used the G-tube. She did not have any complaints apart from dizziness and fatigue. Labs done showed hemoglobin of 6.8. She did have a history of recurrent anemia. She was therefore admitted to be transfused with a unit of packed red blood cells. She had a history of esophageal strictures for which she had required repeated dilations and about few days prior she had had a stent placed for esophageal stenosis. She was admitted and managed for acute on chronic anemia. She was transfused with a unit of packed red blood cells. Patient remained stable and only complained of a few episodes of nonprojectile scanty vomiting due to nausea. Patient was on nausea medication at home. She remained stable and hemoglobin came up to 7.3. She was discharged on 04/21/2023. She is to follow- up with her primary care doctor with gastroenterology within 1 to 2 weeks. Patient seen and examined prior to discharge. She had no complaints. Review of systems otherwise negative. Labs and vitals reviewed. Home medication reviewed and reconciled. Physical Exam Const alert, oriented x3 and no apparent distress General Appearance: cooperative and comfortable HEENT normocephalic, head/scalp atraumatic, hearing grossly normal bilaterally and moist oral mucous membranes Mouth: oral and palatal mucosa normal Eyes PERRL, EOMs intact bilaterally and conjunctivae normal Neck no lymphadenopathy, supple and no JVD Resp normal respiratory effort, no retractions, no use of accessory muscles and clear to auscultation bilaterally Cardio regular rate, regular rhythm, S1 normal heart sound, S2 normal heart sound and no murmurs GI normal to inspection, nondistended, normoactive bowel sounds, soft to palpation, non-tender and non-distended GI Narrative: PEG tube in situ Extremity normal to inspection, full ROM and no clubbing, cyanosis or edema Skin no rashes or lesions noted and no wounds Neuro oriented x3, CN's II-XII intact bilaterally, moves all extremities and no focal motor deficits Sensorium / Orientation: awake and alert Motor Exam: strength 5/5 throughout Psych affect normal Weight / BMI Weight Weight: 122 lb 5.705 oz Body Mass Index (BMI) 20.3 ABG / Lab / Microbiology Data Result Diagrams: 04/21/23 06:15 04/20/23 20:00 Laboratory: Laboratory Results - last 24 hr 04/20/23 20:00: WBC 7.0, RBC 2.41 L, Hgb 6.8 L, Hct 22.3 L, MCV 92.5, MCH 28.2, MCHC 30.5 L, RDW Std Deviation 52.6 H, RDW Coeff of Lee 15.7 H, Plt Count 297, MPV 9.0, Immature Gran % (Auto) 0.400, Neut % (Auto) 63.8, Lymph % (Auto) 23.2, [place] % (Auto) 9.7, Eos % (Auto) 2.8, Baso % (Auto) 0.1, Absolute Neuts (auto) 4.5, Absolute Lymphs (auto) 1.63, Nucleated RBC % 0 04/20/23 20:00: Sodium 137, Potassium 5.0, Chloride 104, Carbon Dioxide 27.0, Anion Gap 6, BUN 70 H, Creatinine 1.99 H, Estim Creat Clear Calc 22.00, Est GFR (MDRD) Af Amer 32 L, Est GFR (MDRD) Non-Af 26 L, BUN/Creatinine Ratio 35.2 H, Glucose 93, Calcium 8.2 L, Total Bilirubin 0.10 L, AST 10 L, ALT 17, Alkaline Phosphatase 76, Total Protein 5.9 L, Albumin 2.5 L, Globulin 3.4, Albumin/Globulin Ratio 0.7 L 04/20/23 21:54: Blood Type B POSITIVE, Antibody Screen NEGATIVE, Crossmatch See Detail 04/21/23 06:15: WBC 6.7, RBC 2.53 L, Hgb 7.3 L, Hct 23.4 L, MCV 92.5, MCH 28.9, MCHC 31.2 L, RDW Std Deviation 53.1 H, RDW Coeff of Lee 15.9 H, Plt Count 269, MPV 8.9, Immature Gran % (Auto) 0.400, Neut % (Auto) 64.8, Lymph % (Auto) 19.2, [place] % (Auto) 11.9 H, Eos % (Auto) 3.6, Baso % (Auto) 0.1, Absolute Neuts (auto) 4.4, Absolute Lymphs (auto) 1.29, Nucleated RBC % 0 D/C Instructions Discharge Diet: - (tube feeds as directed) Discharge Activity: Return to Normal Activity Weight Bearing Status: Weight bearing as tolerated Call your doctor if you observe: Fever of 101 or Higher, Shortness of breath, Dizziness, Swelling in the ankles and Chest pain Meaningful Use Info Meaningful Use Diagnoses (Choose all that apply): None applicable Discharge Plan Admission Admit Date/Time: 04/20/23 21:54 Primary Reason for Your Visit: anemia Attending Provider: Roz Amador Primary Care Provider: Jay Kincaid NP Consulting Providers: Carlos Castañeda Instructions Patient Instructions: Anemia Discharge Orders/Prescriptions Prescriptions: Continued methimazole 5 MG tablet 5 mg PO SUMOWEFR oxybutynin chloride 15 mg tablet extended release 24hr 15 mg PO DAILY Label Comments: take 1 tablet by mouth every morning polyethylene glycol 3350 [Miralax] 17 gram/dose Powder 17 g PO DAILY PRN (Reason: constipation) Prolia 60 mg/mL Syringe 60 mg SUBCUT .Q6MO ferrous sulfate 325 MG tablet 325 mg PO QODAY Qty: 30 0RF lorazepam 2 mg tablet 2 mg PO Q8 ondansetron HCl 4 mg tablet 4 mg PO Q6H PRN (Reason: nausea and vomiting) Qty: 30 0RF losartan 25 mg tablet 25 mg PO DAILY lamotrigine 100 mg tablet 200 mg PO DAILY Label Comments: take 1 tablet by mouth once daily for 2 WEEKS then INCREASE to 1 ... (REFER TO PRESCRIPTION NOTES). lactulose 20 gram/30 mL solution 20 g PO BID cinacalcet 30 mg Tablet 60 mg PO BID 30 Days Qty: 120 0RF lansoprazole 30 mg capsule,delayed release(DR/EC) 30 mg PO BID misoprostol 200 mcg tablet 200 mcg PO 4X/DAYCM memantine 10 MG tablet 10 mg PO DAILY hyoscyamine sulfate 0.125 mg tablet, sublingual 0.125 mg PO BID PRN (Reason: dyspepsia) Qty: 14 0RF prochlorperazine 25 mg suppository 25 mg UT Q12H Qty: 12 3RF Referrals / Follow Up: Jay Kincaid [employer], [employer] [Primary Care Provider] - Within 2 Weeks Disposition Disposition (needs filled in before D/C Order can be placed): Home, Self Care Charges/Coding Visit Charges Inpatient E&M: 63911 Disch Hosp >30min
--- NOTE | 2023-04-21 11:29 | PHA.DC.MR ---
Pharmacy Service has performed discharge medication reconciliation for this patient. The patient's discharge medication list was reviewed for discrepancies and discrepancies were resolved. Home Medications methimazole 5 mg tablet 5 mg PO SUMOWEFR Thyroid 10/04/20 denosumab 60 mg/mL subcutaneous syringe (Prolia) 60 mg subcut .Q6MO osteoporosis 09/05/22 oxybutynin chloride 15 mg tablet,extended release 24 hr 15 mg PO DAILY Overactive bladder 09/05/22 polyethylene glycol 3350 17 gram/dose oral powder (Miralax) 17 g PO DAILY PRN constipation 09/05/22 ferrous sulfate 325 mg (65 mg iron) tablet 325 mg PO QODAY SUPPLEMENT #30 tabs 12/24/22 ondansetron HCl 4 mg tablet 4 mg PO Q6H PRN nausea and vomiting #30 tabs 03/06/23 lactulose 20 gram/30 mL oral solution 20 g PO BID Check with primary doctor 03/19/23 lamotrigine 100 mg tablet 200 mg PO DAILY Bipolar Disorder 03/19/23 losartan 25 mg tablet 25 mg PO DAILY BP 03/19/23 cinacalcet 30 mg tablet 60 mg PO BID 30 days #120 tabs 04/08/23 lorazepam 2 mg tablet 2 mg PO Q8 04/13/23 hyoscyamine sulfate 0.125 mg sublingual tablet 0.125 mg PO BID PRN dyspepsia #14 tabs 04/17/23 lansoprazole 30 mg capsule,delayed release 30 mg PO BID 04/20/23 memantine 10 mg tablet 10 mg PO DAILY Check with primary doctor 04/20/23 misoprostol 200 mcg tablet 200 mcg PO 4X/DAYCM 04/20/23 prochlorperazine 25 mg rectal suppository 25 mg MO Q12H #12 ea 04/20/23
--- NOTE | 2023-04-21 11:30 | CASEMGMT ---
ALEXEY MARTIN NOTE: Per Cindy @ [facility], pt is active w/them for SN, PT, and SW. She is aware pt has been admitted to [facility] and that pt is discharging home today. ALEXEY MARTIN to room. Introduced self and role. Pt resting in bed. @ bedside. Pt and deny having any discharge planning needs or concerns. They have been pleased w/[facility] and wish to resume care with them. Shanna CHICASN ALEXEY CM
[2023-04-21] MEDS: miSOPROStol 200 MCG Tablet PO (11:33)
[2023-04-21 12:35] VITALS: BP 108/66; PULSE 87; RESP 18; TEMP 36.8; O2SAT 92
== END 2023-04-21 13:10 | disposition skilled nursing facility (03) ==
LOC: ED 21:43 → MS3 22:08
PROVIDERS: Admitting Provider Family Medicine; Emergency Provider Emergency Medicine; PCP Nurse Practitioner Family; Visit Provider Student in an Organized Health Care Education/Training Program
DX: D50.9 Iron deficiency anemia, unspecified (principal); K94.23 Gastrostomy malfunction; F31.9 Bipolar disorder, unspecified; E86.0 Dehydration; E07.9 Disorder of thyroid, unspecified; K31.84 Gastroparesis; Z87.891 Personal history of nicotine dependence; R42 Dizziness and giddiness; I12.9 Hypertensive chronic kidney disease with stage 1 through stage 4 chronic kidney disease, or unspecified chronic kidney disease; Z79.899 Other long term (current) drug therapy; K21.9 Gastro-esophageal reflux disease without esophagitis; N18.9 Chronic kidney disease, unspecified
CPT/HCPCS: 36430; 80053; 85025; 86850; 86900; 86901; 86920; 86922; 96360; 96361; 97802; 99221; 99284; J7040; J7050; P9016; A4216; G0378

== ENCOUNTER → 2023-04-27 | Outpatient (CLI) | payer MEDICARE, SELFPAY ==
--- NOTE | 2023-04-27 09:13 | NEURO ---
NCS and/or EMG Patient Report Ordering Doctor: Mike Tolbert DATE OF SERVICE: 04/27/23 Findings: Nerve conduction studies were performed in the right and left upper extremities. The right median motor study recording the abductor pollicis brevis showed a normal amplitude, normal distal latency and normal conduction velocity. The right ulnar motor study recording the abductor digiti minimi showed a normal amplitude, normal distal latency and normal conduction velocity. No conduction block or focal slowing was present across the elbow. The right median sensory response recording digit two showed a normal amplitude, latency and conduction velocity. The right ulnar sensory response recording digit five showed a normal amplitude, latency and conduction velocity. The right radial sensory response recording over the extensor snuff box showed a normal amplitude, latency and conduction velocity. The left median motor study recording the abductor pollicis brevis showed a normal amplitude, normal distal latency and normal conduction velocity. The left ulnar motor study recording the abductor digiti minimi showed a normal amplitude, normal distal latency and normal conduction velocity. No conduction block or focal slowing was present across the elbow. The left median sensory response recording digit two showed a normal amplitude, latency and conduction velocity. The left ulnar sensory response recording digit five showed a normal amplitude, latency and conduction velocity. The left radial sensory response recording over the extensor snuff box showed a normal amplitude, latency and conduction velocity. Right median-ulnar lumbrical / interosseous motor latencies showed a normal median latency compared to the ulnar. Left median-ulnar lumbrical / interosseous motor latencies showed a normal median latency compared to the ulnar. Needle EMG of the right and left upper extremity muscles was performed. No denervation or fasciculations were seen in any muscle. All motor unit morphology, activation and recruitment patterns were normal. Activation was slightly tremulous in the muscles of the right hand. Impression: This is mildly abnormal study. The left ulnar sensory response was slightly low and asymmetric when compared with the right. There was questionable conduction block of the ulnar nerve across the elbows bilaterally, however, no associated focal slowing. There was no active denervation to suggest axonal loss. If clinically indicated, further evaluation with neuromuscular ultrasound could be considered. There is no electrophysiologic evidence of cervical radiculopathy, brachial plexopathy or other entrapment neuropathy in either upper extremity. Dewayne Briceño D.O. Multi Select Codes Neurology Neurology Interp Codes: 74297-19 Musc test done w/n test comp (interp) (Qty:2) and 81544-39 Nrv cndj test 13/> studies (interp)
[2023-04-27 10:09] LABS: PTHIN 266.9 pg/mL (18.4-80.1)
[2023-04-27 10:12] LABS: Vitamin D,25 Hydroxy 61.1 ng/mL
[2023-04-27 11:01] LABS: ALB/GLOB Ratio 0.7 RATIO (0.9-2.4); AST(SGOT) 12 U/L (15-37); Alanine Aminotransfer ALT/SGPT 19 U/L (13-56); Albumin, Serum 2.9 g/dL (3.2-5.0); Alkaline Phosphatase 101 U/L (45-117); Anion Gap 5 (5-15); BUN 42 mg/dL (7-18); BUN/Creat Ratio 22.6 RATIO (10-20); Calcium,Total 8.4 mg/dL (8.5-10.1); Chloride 107 mmol/L (98-107); Creatinine, Serum 1.86 mg/dL (0.55-1.02); EST Glomerular Filtration Rate 28 mL/min (>60); Est Glom Filt Rate - Afr Amer 34 mL/min (>60); Free T3 2.4 pg/mL (2.18-3.98); Globulin 4.1 g/dL (2.2-4.2); Glucose 96 mg/dL (74-106); Sodium Level 139 mmol/L (136-145); T4 Free Direct 1.04 ng/dL (0.76-1.46); Thyroid Stim Hormone (TSH) 0.82 uIU/mL (0.358-3.74)
== END | disposition home or self-care (01) ==
PROVIDERS: PCP Nurse Practitioner Family; Referring Provider Psychiatry & Neurology Neurology; Visit Provider Psychiatry & Neurology Neurology
DX: E05.90 Thyrotoxicosis, unspecified without thyrotoxic crisis or storm (principal); E21.3 Hyperparathyroidism, unspecified; E55.9 Vitamin D deficiency, unspecified; M81.0 Age-related osteoporosis without current pathological fracture; R53.1 Weakness; G62.9 Polyneuropathy, unspecified; M54.16 Radiculopathy, lumbar region
CPT/HCPCS: 36415; 80053; 82306; 82330; 83970; 84439; 84443; 84481; 95886; 95913

== ENCOUNTER → 2023-05-04 | Outpatient (CLI) | payer MEDICARE, SELFPAY ==
--- NOTE | 2023-05-04 14:02 | NEURO_ITS ---
NCS and/or EMG Patient Report Ordering Doctor: Mike Tolbert DATE OF SERVICE: 05/04/23 Indication: Intermittent tingling affecting the toes of both feet. Evaluate for peripheral neuropathy. Of note, the patient had their upper extremities examined last week which is reported separately. Findings: Nerve conduction studies were performed in the right and left lower extremity. The right peroneal motor study recording the extensor digitorum brevis showed a normal amplitude, normal distal latency and normal conduction velocity. No conduction block or focal slowing was present across the fibular neck. The right tibial motor study recording the abductor hallucis brevis showed a normal amplitude, normal distal latency and normal conduction velocity. The right sural sensory response showed a normal amplitude and mildly slowed conduction velocity. The right superficial peroneal sensory response showed a n ormal amplitude and mildly slowed conduction velocity. The left peroneal motor study recording the extensor digitorum brevis showed a reduced amplitude, normal distal latency and borderline conduction velocity. No conduction block or focal slowing was present across the fibular neck. The left peroneal motor study recording the tibialis anterior showed a normal amplitude, normal distal latency and normal conduction velocity. No conduction block or focal slowing was present across the fibular neck. The left tibial motor study recording the abductor hallucis brevis showed a normal amplitude, normal distal latency and normal conduction velocity. The left sural sensory response showed a normal amplitude and mildly slowed conduction velocity. The left superficial peroneal sensory response showed a normal amplitude and mildly slowed conduction velocity. Needle EMG of the left lower extremity muscles was performed. No denervation was present in any muscle. All motor unit morphology, activation and recruitment patterns were normal. Needle EMG of the right lower extremity was omitted given the symmetry of the patient's symptoms and lack of findings on the right. Impression: This is an essentially normal study. There is no electrophysiologic evidence of peripheral neuropathy in either the right or left lower extremity. The mildly slowed conduction velocities were likely the result of cool skin temperatures during testing. Please note: routine nerve conduction studies and needle EMG assess the larger, myelinated motor and sensory fibers. Thus, routine electrodiagnostic studies may be insensitive in detecting a peripheral neuropathy restricted to small fibers alone (i.e., pain, temperature and autonomic fibers). However, most peripheral neuropathies with predominantly small fiber large dysfunction will also involve large fibers to a lesser extent, and will demonstrate abnormalities on electrodiagnostic studies. Thus, clinical correlation is required in the interpretation of this negative electrodiagnostic study if an isolated small fiber neuropathy is considered. Dewayne Briceño D.O. Multi Select Codes Neurology Neurology Interp Codes: 26938-38 Musc test done w/n test comp (interp) and 09968-26 Nrv cndj test 9-10 studies (interp)
== END | disposition home or self-care (01) ==
PROVIDERS: PCP Nurse Practitioner Family; Referring Provider Psychiatry & Neurology Neurology; Visit Provider Psychiatry & Neurology Neurology
DX: R20.2 Paresthesia of skin (principal)
CPT/HCPCS: 95886; 95911

== ENCOUNTER → 2023-05-06 | Outpatient (CLI) | payer MEDICARE, SELFPAY ==
[2023-05-06 11:28] LABS: Hematocrit 30.5 % (37-47); Hemoglobin 9.1 g/dL (12.0-15.0); Mean Corp Hgb Conc 29.8 g/dL (32-36); Mean Corpuscular Hgb 29.1 pg (27.0-32.0); Mean Corpuscular Volume 97.4 fL (81-99); Mean Platelet Vol. 8.7 fl (6.2-12.0); Platelet Count 374 K/mm3 (150-450); RBC Distribution Width CV 15.6 % (11.6-14.6); RBC Distribution Width SD 55.7 fl (35.1-43.9); Red Blood Count 3.13 M/mm3 (4.2-5.4)
[2023-05-06 12:08] LABS: Anion Gap 4 (5-15); BUN 53 mg/dL (7-18); Calcium,Total 8.8 mg/dL (8.5-10.1); Chloride 103 mmol/L (98-107); Creatinine, Serum 1.89 mg/dL (0.55-1.02); EST Glomerular Filtration Rate 28 mL/min (>60); Est Glom Filt Rate - Afr Amer 33 mL/min (>60); Glucose 97 mg/dL (74-106); Potassium 5.2 mmol/L (3.5-5.1); Sodium Level 137 mmol/L (136-145)
== END | disposition home or self-care (01) ==
LOC: LAB 10:32
PROVIDERS: PCP Nurse Practitioner Family; Referring Provider Internal Medicine Nephrology; Visit Provider Internal Medicine Nephrology
DX: N17.9 Acute kidney failure, unspecified (principal)
CPT/HCPCS: 36415; 80048; 85027

== ENCOUNTER 2023-05-11 11:50 | Emergency (ER) | payer MEDICARE, SELFPAY ==
[2023-05-11 11:51] VITALS: BP 136/73; PULSE 82; RESP 14; TEMP 36.6; O2SAT 98; BMI 20.5
--- NOTE | 2023-05-11 14:37 | RAD_ITS ---
STUDY: X-RAY - ABDOMEN/PELVIS REASON FOR EXAM: Female, 72 years old. GJ status TECHNIQUE: Single AP view of the abdomen / pelvis. COMPARISON: Comparison is made with prior study of March 25, 2023. FINDINGS: Normal visualized lung bases. The PEG tube is seen in the epigastric region. Moderate amount of fecal material is seen in the colon. The visualized liver, spleen and kidneys are grossly normal in size and morphology. Normal soft tissue structures. Dextroscoliosis. RAD/Abdomen Single View (Portable) IMPRESSION: The balloon of the PEG tube is seen within the epigastric region most likely within the distal portion of the stomach. Electronically Signed: Cheng Schmitt MD at 15:04 EDT ,
--- NOTE | 2023-05-11 16:12 | EX.ED.DYSGE1 ---
HPI History of Present Illness Chief Complaint: Other, Pain/Inj Informant: patient and spouse/S.O. Narrative Narrative: Patient had esophageal stenosis, this was stented by GI DrDuong Friend about a month ago, she has a GJ tube to receive tube feeds in the meantime for about 3 months. Today, after getting tube feeds, the tube seems to be clogged and the is unable to flush it. The patient is asymptomatic. She also has a history of gastroparesis. [facility] Medical History Acute renal insufficiency Acute uremia CITLALY (acute kidney injury) Anemia Anemia Anemia, unspecified Anxiety Back pain Bipolar disorder Bipolar disorder Bipolar disorder with moderate depression Bladder disease Delirium due to multiple etiologies Diabetes insipidus Dietary restriction Difficulty chewing Dysphagia Erosive esophagitis Falls Former smoker Gastric reflux Gastroparesis Generalized weakness Gram-negative bacteremia History of edema History of gastrostomy tube placement History of herpes zoster History of hiatal hernia History of jejunostomy tube placement Hypercalcemia Hypernatremia Hypertension Hypertension Iron deficiency anemia Nondiabetic gastroparesis Post-menopausal Pulmonary emboli Secondary hyperparathyroidism of renal origin Severe dehydration Severe malnutrition Severe malnutrition Stenosis of esophagus Tardive dyskinesia Thyroid disease Unsteady gait UTI (urinary tract infection) Wears glasses Home Medications methimazole 5 mg tablet 5 mg PO SUMOWEFR Thyroid 10/04/20 [History Last Taken 01/14/23] denosumab 60 mg/mL subcutaneous syringe (Prolia) 60 mg subcut .Q6MO osteoporosis 09/05/22 [History Last Taken 08/27/22] oxybutynin chloride 15 mg tablet,extended release 24 hr 15 mg PO DAILY Overactive bladder 09/05/22 [History Last Taken 01/14/23] polyethylene glycol 3350 17 gram/dose oral powder (Miralax) 17 g PO DAILY PRN constipation 09/05/22 [History Last Taken 09/05/22] ferrous sulfate 325 mg (65 mg iron) tablet 325 mg PO QODAY SUPPLEMENT #30 tabs 12/24/22 [Rx Last Taken 01/13/23] lactulose 20 gram/30 mL oral solution 20 g PO BID Check with primary doctor 03/19/23 [History Last Taken Unknown] lamotrigine 100 mg tablet 200 mg PO DAILY Bipolar Disorder 03/19/23 [History Last Taken 04/16/23] losartan 25 mg tablet 25 mg PO DAILY BP 03/19/23 [History Last Taken 04/16/23] cinacalcet 30 mg tablet 60 mg (2 x 30 mg) PO BID 30 days #120 tabs 04/08/23 [Rx Last Taken Unknown] lorazepam 2 mg tablet 2 mg PO Q8 04/13/23 [History Last Taken 04/16/23] memantine 10 mg tablet 10 mg PO DAILY Check with primary doctor 04/20/23 [History Last Taken Unknown] misoprostol 200 mcg tablet 200 mcg PO 4X/DAYCM 04/20/23 [History Last Taken Unknown] prochlorperazine 25 mg rectal suppository 25 mg [place] Q12H #12 ea 04/20/23 [Rx Last Taken Unknown] hyoscyamine sulfate 0.125 mg sublingual tablet 0.125 mg PO BID PRN dyspepsia #14 tabs 04/28/23 [Rx Last Taken Unknown] lansoprazole 30 mg capsule,delayed release 30 mg PO BID #60 caps 05/06/23 [Rx Last Taken Unknown] ondansetron HCl 4 mg tablet See Rx Instructions PO Q6H PRN nausea and vomiting #90 tabs 05/06/23 [Rx Last Taken Unknown] Allergy/AdvReac Type Severity Reaction Status Date / Time No Known Allergies Allergy Verified 05/11/23 11:52 Family History Father CVA (cerebral vascular accident) Sister CVA (cerebral vascular accident) Cancer Surgical History History of esophagogastroduodenoscopy (EGD) Hx of esophagogastroduodenoscopy Social History household members: spouse housing: house Smoking Status: Former smoker Tobacco: How many years used: 4 second hand exposure: Yes alcohol intake: never substance use type: does not use what type of physical activity do you participate in: other details: OT PT - [facility] IN [place] frequency: daily valentina/adventist: Lutheran seatbelt use: always additional social history: Ambulates at baseline without assistive device ROS ROS ED Constitutional Constitutional ED: Denies chills or fever(s) Gastrointestinal Gastrointestinal: Denies abdominal pain, nausea or vomiting EXAM Physical Exam Const Vital Signs: 05/11/23 11:51 05/11/23 11:50 Temperature 97.8 F Temperature Source Temporal Pulse Rate 82 Respiratory Rate 14 Respiratory Effort Normal Respiratory Pattern Normal Blood Pressure 136/73 H Blood Pressure Mean 94 Pulse Ox 98 Oxygen Delivery Method Room Air Positive well nourished and well developed General Appearance ED: well developed and NAD HEENT Reports moist mucous membranes GI normal to inspection, nondistended, normoactive bowel sounds, non-tender and non-distended Palpation: soft Neuro CN's II-XII intact bilaterally and no sensory deficits noted Motor Exam: strength 5/5 throughout Psych mental status grossly normal Skin no rashes or lesions noted and no wounds Skin Narrative: GJ insertion site left upper quadrant benign. No leaking. MDM MDM MDM Narrative Medical decision making narrative: Initially tried to aspirate and flushed the small inner jejunal tube within the GJ tube, but was unable. The balloon in her tube appeared to be intact. I pulled it out part of the way and then placed it back in and after determining it was a jejunal tube which I did not know at the beginning, after doing that I obtained a KUB showing good placement of the tube and I use this to measure it after discussing with Dr. Verma, he advised me to get a specific guidewire from endoscopy, I called and have them send it, see the procedure note we were able to unclog the tube this way. The other ports flushed and marry back without difficulty, stomach contents. Discharged home with the tube intact, with instructions to use as usual including flushes. Radiography Diagnostic Testing: Clinical Impression(s) from Imaging Studies KUB X-Ray 05/11/23 14:37 IMPRESSION: The balloon of the PEG tube is seen within the epigastric region most likely within the distal portion of the stomach. Electronically Signed: Cheng Schmitt MD at 15:04 EDT , Procedures Other Procedures Procedure(s): GJ tube unclogging: Was able to obtain a 0.035 guidewire from endoscopy, I use this and taped off approximately 45 cm, which was my approximation of the distance from the end of the tube outside of the patient to the end of the J-tube inside the patient's bowel, inserting it through the inner tube of the GJ, there were 2 areas of minor resistance, I checked several times to see if I could pass Sprite through the tube with a syringe, and I was able to successfully after threading the guidewire all the way through the end of the tube. This was asymptomatic the patient had no pain. Was able to flush the tube with 30 cc of Sprite afterwards without any difficulty. Tolerated well without complications. Discharge Plan Triage Chief Complaint: Other, Pain/Inj ED Provider: Stoney Ashley Dx/Rx/DC Orders Clinical Impression: Malfunctioning jejunostomy tube Instructions: Tube Feeding Flush Dc Prescriptions: No Action lansoprazole 30 mg capsule,delayed release(DR/EC) 30 mg PO BID Qty: 60 3RF ondansetron HCl 4 mg tablet See Rx Instructions PO Q6H PRN (Reason: nausea and vomiting) Qty: 90 3RF Rx Instructions: take 1-2 orally every 6 hours PRN; methimazole 5 MG tablet 5 mg PO SUMOWEFR oxybutynin chloride 15 mg tablet extended release 24hr 15 mg PO DAILY Patient Comments: take 1 tablet by mouth every morning polyethylene glycol 3350 [Miralax] 17 gram/dose Powder 17 g PO DAILY PRN (Reason: constipation) Prolia 60 mg/mL Syringe 60 mg SUBCUT .Q6MO ferrous sulfate 325 MG tablet 325 mg PO QODAY Qty: 30 0RF lorazepam 2 mg tablet 2 mg PO Q8 losartan 25 mg tablet 25 mg PO DAILY lamotrigine 100 mg tablet 200 mg PO DAILY Patient Comments: take 1 tablet by mouth once daily for 2 WEEKS then INCREASE to 1 ... (REFER TO PRESCRIPTION NOTES). lactulose 20 gram/30 mL solution 20 g PO BID cinacalcet 30 mg Tablet 60 mg PO BID 30 Days Qty: 120 0RF misoprostol 200 mcg tablet 200 mcg PO 4X/DAYCM memantine 10 MG tablet 10 mg PO DAILY prochlorperazine 25 mg suppository 25 mg [place] Q12H Qty: 12 3RF hyoscyamine sulfate 0.125 mg tablet, sublingual 0.125 mg PO BID PRN (Reason: dyspepsia) Qty: 14 0RF Primary Care Provider: Jay Kincaid NP Referrals: Francis Verma, [Med Staff - Active Staff] - As Needed Jay Kincaid NP, [employer] E[employer]MENT ASSOCIATE-C [Primary Care Provider] - Disposition Disposition: Home, Self Care
[2023-05-11 16:18] VITALS: PULSE 78; RESP 18; O2SAT 100
== END 2023-05-11 16:21 | disposition home or self-care (01) ==
PROVIDERS: Emergency Provider Emergency Medicine; PCP Nurse Practitioner Family; Visit Provider Emergency Medicine
DX: K94.13 Enterostomy malfunction (principal); Z87.891 Personal history of nicotine dependence; I10 Essential (primary) hypertension; K21.00 Gastro-esophageal reflux disease with esophagitis, without bleeding; Z87.19 Personal history of other diseases of the digestive system
CPT/HCPCS: 74018; 99282

== ENCOUNTER 2023-05-20 09:05 | Emergency (ER) | payer MEDICARE, SELFPAY ==
[2023-05-20 09:06] VITALS: BP 163/98; PULSE 81; RESP 18; TEMP 36.6; O2SAT 96; BMI 20.9
--- NOTE | 2023-05-20 09:20 | ED.VIS.GI ---
HPI HPI - GI History of Present Illness Chief Complaint: Other, Pain/Inj Detail of Chief Complaint: GJ tube clogged Informant: patient and spouse/S.O. Narrative Narrative: Patient presenting for the second time for a clogged GJ tube, has been clogged since last night and has not gotten tube feeds since. She denies any abdominal pain, vomiting, fevers, or any other symptoms. Seen here by myself about 9 days ago for the same thing. They state they have had intermittent clogging ever since, the has been flushing with warm water and cherelle cordell periodically, which has been taking care of the clogged but not last night and again not helping this morning. [facility] Medical History Acute renal insufficiency Acute uremia CITLALY (acute kidney injury) Anemia Anemia Anemia, unspecified Anxiety Back pain Bipolar disorder Bipolar disorder Bipolar disorder with moderate depression Bladder disease Delirium due to multiple etiologies Diabetes insipidus Dietary restriction Difficulty chewing Dysphagia Erosive esophagitis [place] Former smoker Gastric reflux Gastroparesis Generalized weakness Gram-negative bacteremia History of edema History of gastrostomy tube placement History of herpes zoster History of hiatal hernia History of jejunostomy tube placement Hypercalcemia Hypernatremia Hypertension Hypertension Iron deficiency anemia Nondiabetic gastroparesis Post-menopausal Pulmonary emboli Secondary hyperparathyroidism of renal origin Severe dehydration Severe malnutrition Severe malnutrition Stenosis of esophagus Tardive dyskinesia Thyroid disease Unsteady gait UTI (urinary tract infection) Wears glasses Home Medications methimazole 5 mg tablet 5 mg PO SUMOWEFR Thyroid 10/04/20 [History Last Taken 01/14/23] denosumab 60 mg/mL subcutaneous syringe (Prolia) 60 mg subcut .Q6MO osteoporosis 09/05/22 [History Last Taken 08/27/22] oxybutynin chloride 15 mg tablet,extended release 24 hr 15 mg PO DAILY Overactive bladder 09/05/22 [History Last Taken 01/14/23] polyethylene glycol 3350 17 gram/dose oral powder (Miralax) 17 g PO DAILY PRN constipation 09/05/22 [History Last Taken 09/05/22] ferrous sulfate 325 mg (65 mg iron) tablet 325 mg PO QODAY SUPPLEMENT #30 tabs 12/24/22 [Rx Last Taken 01/13/23] lactulose 20 gram/30 mL oral solution 20 g PO BID Check with primary doctor 03/19/23 [History Last Taken Unknown] lamotrigine 100 mg tablet 200 mg PO DAILY Bipolar Disorder 03/19/23 [History Last Taken 04/16/23] losartan 25 mg tablet 25 mg PO DAILY BP 03/19/23 [History Last Taken 04/16/23] cinacalcet 30 mg tablet 60 mg (2 x 30 mg) PO BID 30 days #120 tabs 04/08/23 [Rx Last Taken Unknown] lorazepam 2 mg tablet 2 mg PO Q8 04/13/23 [History Last Taken 04/16/23] memantine 10 mg tablet 10 mg PO DAILY Check with primary doctor 04/20/23 [History Last Taken Unknown] misoprostol 200 mcg tablet 200 mcg PO 4X/DAYCM 04/20/23 [History Last Taken Unknown] prochlorperazine 25 mg rectal suppository 25 mg [place] Q12H #12 ea 04/20/23 [Rx Last Taken Unknown] lansoprazole 30 mg capsule,delayed release 30 mg PO BID #60 caps 05/06/23 [Rx Last Taken Unknown] ondansetron HCl 4 mg tablet See Rx Instructions PO Q6H PRN nausea and vomiting #90 tabs 05/06/23 [Rx Last Taken Unknown] hyoscyamine sulfate 0.125 mg sublingual tablet 0.125 mg PO BID PRN dyspepsia #14 tabs 05/13/23 [Rx Last Taken Unknown] Allergy/AdvReac Type Severity Reaction Status Date / Time No Known Allergies Allergy Verified 05/20/23 09:08 Family History Father CVA (cerebral vascular accident) Sister CVA (cerebral vascular accident) Cancer Surgical History History of esophagogastroduodenoscopy (EGD) Hx of esophagogastroduodenoscopy Social History household members: spouse housing: house Smoking Status: Former smoker Tobacco: How many years used: 4 second hand exposure: Yes alcohol intake: never substance use type: does not use what type of physical activity do you participate in: other details: OT - [employer] [facility] [place] frequency: daily valentina/sabianist: Jain seatbelt use: always additional social history: Ambulates at baseline without assistive device ROS ROS ED Constitutional Constitutional ED: Denies chills or fever(s) Cardiovascular Cardiovascular: Denies chest pain Respiratory/Chest Respiratory/Chest: Denies dyspnea Gastrointestinal Gastrointestinal: Denies abdominal pain, nausea or vomiting EXAM Physical Exam Const Vital Signs: 05/20/23 09:06 05/20/23 09:15 05/20/23 14:29 Temperature 97.8 F Temperature Source Temporal Pulse Rate 81 54 L Respiratory Rate 18 16 Respiratory Effort Normal Non-Labored Respiratory Pattern Normal Blood Pressure 163/98 H 121/73 H Blood Pressure Mean 119 Pulse Ox 96 96 Oxygen Delivery Method Room Air Positive well nourished and well developed Constitutional Narrative: Well-appearing General Appearance ED: well developed and NAD Resp normal respiratory effort Effort and Inspection: able to speak in complete sentences GI non-tender and non-distended GI Narrative: Benign GJ tube site left upper quadrant. Tube is in place, and does not pull out. Psych mental status grossly normal and thought process normal Skin no wounds Rashes: no rashes MDM MDM MDM Narrative Medical decision making narrative: My concern is that this tube has been intermittently clogging for the last week or so, and that it should be replaced since she is here. Discussed with Dr. Verma who agrees with me trying to change it over a guidewire, I obtained a new J-tube with guidewire kit from endoscopy, he warned that oftentimes these curl up in the stomach. This is what happened, I did thread the guidewire and it met some resistance, so leaving the guidewire in place I obtained a KUB, 1 view on my interpretation shows that the guidewire is coming out the sideport hole of the end of the J-tube, and it all appears to be in the stomach already. I pulled the guidewire back and reinserted it, but it went through the same hole, as seen on another 1 view KUB on my interpretation. No free air or signs of perforation and the patient experienced no pain throughout this procedure or other complications. I pulled the G-tube out over the guidewire in its entirety, and even after removing it from the guidewire I tried to flush the old tube with water and it is clogged still, even with the guidewire that went through it. New J-tube placed over the guidewire into the stomach, guidewire removed and the tube was secured with the included device within the lumen of the G-tube. Flushed without difficulty. Discussed with Dr. Verma, this patient should tolerate tube feeds well even though she has gastroparesis to pills and foods, discharged home in stable condition discussed with and patient to follow-up with GI if they have any issues with the feeds. Radiography Diagnostic Testing: Clinical Impression(s) from Imaging Studies KUB X-Ray 05/20/23 12:41 IMPRESSION: Disruption of the PEG tube. Electronically Signed: Cheng Schmitt MD at 14:01 EDT , KUB X-Ray 05/20/23 13:17 IMPRESSION: Disruption of the catheter from the balloon tip. Electronically Signed: Cheng Schmitt MD at 14:06 EDT , KUB X-Ray 05/20/23 13:55 IMPRESSION: The tip of the PEG tube is in the stomach. Electronically Signed: Cheng Schmitt MD at 14:18 EDT , Procedures Other Procedures Procedure(s): J-tube changed via modified Seldinger technique over guidewire through G-tube which was left in place. Flushed easily, no complications, placement in stomach as verified by KUB 1 view on my interpretation. Discharge Plan Triage Chief Complaint: Other, Pain/Inj ED Provider: Stoney Ashley Dx/Rx/DC Orders Clinical Impression: Encounter for gastrojejunal (GJ) tube placement Instructions: Feeding Tube Prescriptions: No Action lansoprazole 30 mg capsule,delayed release(DR/EC) 30 mg PO BID Qty: 60 3RF ondansetron HCl 4 mg tablet See Rx Instructions PO Q6H PRN (Reason: nausea and vomiting) Qty: 90 3RF Rx Instructions: take 1-2 orally every 6 hours PRN; methimazole 5 MG tablet 5 mg PO SUMOWEFR oxybutynin chloride 15 mg tablet extended release 24hr 15 mg PO DAILY Patient Comments: take 1 tablet by mouth every morning polyethylene glycol 3350 [Miralax] 17 gram/dose Powder 17 g PO DAILY PRN (Reason: constipation) Prolia 60 mg/mL Syringe 60 mg SUBCUT .Q6MO ferrous sulfate 325 MG tablet 325 mg PO QODAY Qty: 30 0RF lorazepam 2 mg tablet 2 mg PO Q8 losartan 25 mg tablet 25 mg PO DAILY lamotrigine 100 mg tablet 200 mg PO DAILY Patient Comments: take 1 tablet by mouth once daily for 2 WEEKS then INCREASE to 1 ... (REFER TO PRESCRIPTION NOTES). lactulose 20 gram/30 mL solution 20 g PO BID cinacalcet 30 mg Tablet 60 mg PO BID 30 Days Qty: 120 0RF misoprostol 200 mcg tablet 200 mcg PO 4X/DAYCM memantine 10 MG tablet 10 mg PO DAILY prochlorperazine 25 mg suppository 25 mg [place] Q12H Qty: 12 3RF hyoscyamine sulfate 0.125 mg tablet, sublingual 0.125 mg PO BID PRN (Reason: dyspepsia) Qty: 14 0RF Primary Care Provider: Jay Kincaid NP Referrals: Francis Verma DO [Med Staff - Active Staff] - As Needed Jay Kincaid NP, DENTURE LABORATORY TECHNICIAN-C [Primary Care Provider] - Disposition Disposition: Home, Self Care Discharge Date/Time: 05/20/23 14:34
--- NOTE | 2023-05-20 12:41 | RAD_ITS ---
STUDY: X-RAY - ABDOMEN/PELVIS REASON FOR EXAM: Female, 72 years old. J tube dislodgement, guidewire in place for XR ATTEMPT #1 TECHNIQUE: Single AP view of the abdomen / pelvis. COMPARISON: Comparison is made with prior study dated May 11, 2023. FINDINGS: Normal visualized lung bases. There is a disruption of the PEG tube. The distal portion of the catheter is dislodged from the balloon which appears to be within the stomach. There is a moderate amount of colonic fecal material. The visualized liver, spleen and kidneys are grossly normal in size and morphology. Normal soft tissue structures. There are diffuse degenerative changes of the visualized lumbar spine. RAD/Abdomen Single View (Portable) IMPRESSION: Disruption of the PEG tube. Electronically Signed: Cheng Schmitt MD at 14:01 EDT ,
--- NOTE | 2023-05-20 13:17 | RAD_ITS ---
STUDY: X-RAY - ABDOMEN/PELVIS REASON FOR EXAM: Female, 72 years old. J TUBE PLACEMENT ATTEMPT #2 TECHNIQUE: Single AP view of the abdomen / pelvis. COMPARISON: Comparison is made with prior study done earlier today at 12:58 PM. FINDINGS: The balloon portion of the PEG tube is within the stomach. There is a disruption of the catheter from the balloon. RAD/Abdomen Single View IMPRESSION: Disruption of the catheter from the balloon tip. Electronically Signed: Cheng Schmitt MD at 14:06 EDT ,
--- NOTE | 2023-05-20 13:55 | RAD_ITS ---
STUDY: X-RAY - ABDOMEN/PELVIS REASON FOR EXAM: Female, 72 years old. New J tube placement check TECHNIQUE: Single AP view of the abdomen / pelvis. COMPARISON: Comparison is made with prior study done earlier in the day. FINDINGS: The PEG tube was replaced. The tip of the PICC is in the stomach. RAD/Abdomen Single View (Portable) IMPRESSION: The tip of the PEG tube is in the stomach. Electronically Signed: Cheng Schmitt MD at 14:18 EDT ,
[2023-05-20 14:29] VITALS: BP 121/73; PULSE 54; RESP 16; O2SAT 96
== END 2023-05-20 14:34 | disposition home or self-care (01) ==
PROVIDERS: Emergency Provider Emergency Medicine; PCP Nurse Practitioner Family; Visit Provider Emergency Medicine
DX: K94.23 Gastrostomy malfunction (principal); I10 Essential (primary) hypertension; K31.84 Gastroparesis; K21.00 Gastro-esophageal reflux disease with esophagitis, without bleeding; Z79.899 Other long term (current) drug therapy; Z87.891 Personal history of nicotine dependence
CPT/HCPCS: 74018; 99282

== ENCOUNTER 2023-05-25 13:44 | Outpatient (RCR) | payer MEDICARE, SELFPAY ==
[2023-01-06 22:37] VITALS: BMI 20.4
[2023-05-25 17:14] LABS: ALB/GLOB Ratio 0.8 RATIO (0.9-2.4); AST(SGOT) 14 U/L (15-37); Alanine Aminotransfer ALT/SGPT 17 U/L (13-56); Albumin, Serum 3.4 g/dL (3.2-5.0); Alkaline Phosphatase 109 U/L (45-117); Anion Gap 4 (5-15); BUN 49 mg/dL (7-18); BUN/Creat Ratio 26.3 RATIO (10-20); Calcium,Total 8.9 mg/dL (8.5-10.1); Chloride 105 mmol/L (98-107); Creatinine, Serum 1.86 mg/dL (0.55-1.02); EST Glomerular Filtration Rate 28 mL/min (>60); Est Glom Filt Rate - Afr Amer 34 mL/min (>60); Globulin 4.1 g/dL (2.2-4.2); Glucose 71 mg/dL (74-106); Potassium 4.6 mmol/L (3.5-5.1); Protein, Total 7.5 g/dL (6.4-8.2); Sodium Level 139 mmol/L (136-145)
== END 2023-06-08 18:00 | disposition home or self-care (01) ==
LOC: LAB 13:44
PROVIDERS: Family Provider Nurse Practitioner Family; PCP Nurse Practitioner Family; Referring Provider Nurse Practitioner Family; Visit Provider Nurse Practitioner Family
DX: N18.30 Chronic kidney disease, stage 3 unspecified (principal); D64.9 Anemia, unspecified; E21.3 Hyperparathyroidism, unspecified; E23.2 Diabetes insipidus; E05.90 Thyrotoxicosis, unspecified without thyrotoxic crisis or storm
CPT/HCPCS: 36415; 80053

== ENCOUNTER → 2023-06-09 | Outpatient (CLI) | payer MEDICARE, SELFPAY ==
[2023-06-09 12:07] LABS: Hematocrit 32.2 % (37-47); Hemoglobin 9.6 g/dL (12.0-15.0); Mean Corp Hgb Conc 29.8 g/dL (32-36); Mean Corpuscular Hgb 28.7 pg (27.0-32.0); Mean Corpuscular Volume 96.1 fL (81-99); Mean Platelet Vol. 8.8 fl (6.2-12.0); Platelet Count 287 K/mm3 (150-450); RBC Distribution Width CV 14.5 % (11.6-14.6); RBC Distribution Width SD 50.8 fl (35.1-43.9); Red Blood Count 3.35 M/mm3 (4.2-5.4); White Blood Count 8.6 K/mm3 (4.4-11.0)
[2023-06-09 12:32] LABS: PTHIN 43.9 pg/mL (18.4-80.1)
[2023-06-09 12:35] LABS: Vitamin D,25 Hydroxy 55.3 ng/mL
[2023-06-09 12:40] LABS: ALB/GLOB Ratio 0.9 RATIO (0.9-2.4); AST(SGOT) 12 U/L (15-37); Alanine Aminotransfer ALT/SGPT 19 U/L (13-56); Albumin, Serum 3.4 g/dL (3.2-5.0); Alkaline Phosphatase 86 U/L (45-117); Anion Gap 3 (5-15); BUN 51 mg/dL (7-18); BUN/Creat Ratio 25.8 RATIO (10-20); Calcium,Total 8.6 mg/dL (8.5-10.1); Chloride 104 mmol/L (98-107); Creatinine, Serum 1.98 mg/dL (0.55-1.02); EST Glomerular Filtration Rate 26 mL/min (>60); Est Glom Filt Rate - Afr Amer 32 mL/min (>60); Ferritin 42 ng/mL (8-252); Free T3 2.3 pg/mL (2.18-3.98); Globulin 3.9 g/dL (2.2-4.2); Glucose 109 mg/dL (74-106); Iron 32 ug/dL (50-170); Iron Binding Capacity,Total 353 ug/dL (250-450); PERCENT IRON SATURATION 9.1 % (15.0-55.0); Phosphorus 5.2 mg/dL (2.5-4.9); Potassium 4.9 mmol/L (3.5-5.1); Protein, Total 7.3 g/dL (6.4-8.2); Sodium Level 138 mmol/L (136-145); T4 Free Direct 0.84 ng/dL (0.76-1.46); Thyroid Stim Hormone (TSH) 0.51 uIU/mL (0.358-3.74)
[2023-06-09 16:19] LABS: Ionized Calcium 4.88 mg/dL (4.36-5.20)
[2023-06-09 16:19] LABS: Ionized Calcium Order 4.88
[2023-06-11 12:09] LABS: Vitamin D 1,25-Dihydroxy 19.5 pg/mL (24.8-81.5)
== END | disposition home or self-care (01) ==
LOC: LAB 11:38
PROVIDERS: PCP Nurse Practitioner Family; Referring Provider Internal Medicine Endocrinology, Diabetes & Metabolism; Visit Provider Internal Medicine Endocrinology, Diabetes & Metabolism
DX: E05.90 Thyrotoxicosis, unspecified without thyrotoxic crisis or storm (principal); N18.4 Chronic kidney disease, stage 4 (severe); E21.3 Hyperparathyroidism, unspecified; M81.0 Age-related osteoporosis without current pathological fracture; E55.9 Vitamin D deficiency, unspecified
CPT/HCPCS: 36415; 80053; 82306; 82330; 82652; 82728; 83540; 83550; 83970; 84100; 84439; 84443; 84481; 85027

== ENCOUNTER 2023-07-17 08:12 | Emergency (ER) | payer MEDICARE, SELFPAY ==
[2023-07-17 08:13] VITALS: BP 125/86; PULSE 95; RESP 12; TEMP 35.4; O2SAT 95; BMI 22.7
--- NOTE | 2023-07-17 08:45 | EX.ED.DYSGE1 ---
HPI History of Present Illness Chief Complaint: General Illness Detail of Chief Complaint: Feeding tube clogged. Informant: patient and spouse/S.O. Onset/Context/Timing Onset: Yesterday Timing: Continuous Current Severity: Mild Maximum Severity: Mild Narrative Narrative: 73 yo female history of gastroparesis has a G-tube in. And states its been clogged since yesterday morning. She has had issues like this before. Denies any abdominal pain. Prior similar symptoms: Yes Recent Illness/Hospitalization: No PFSH PFSH Medical History Acute renal insufficiency Acute uremia CITLALY (acute kidney injury) Anemia Anemia Anemia, unspecified Anxiety Back pain Bipolar disorder Bipolar disorder Bipolar disorder with moderate depression Bladder disease Delirium due to multiple etiologies Diabetes insipidus Dietary restriction Difficulty chewing Dysphagia Erosive esophagitis Falls Former smoker Gastric reflux Gastroparesis Generalized weakness Gram-negative bacteremia History of edema History of gastrostomy tube placement History of herpes zoster History of hiatal hernia History of jejunostomy tube placement Hypercalcemia Hypernatremia Hypertension Hypertension Iron deficiency anemia Nondiabetic gastroparesis Post-menopausal Pulmonary emboli Secondary hyperparathyroidism of renal origin Severe dehydration Severe malnutrition Severe malnutrition Stenosis of esophagus Tardive dyskinesia Thyroid disease Unsteady gait UTI (urinary tract infection) Wears glasses Home Medications methimazole 5 mg tablet 5 mg PO SUMOWEFR Thyroid 10/04/20 [History Last Taken 01/14/23] denosumab 60 mg/mL subcutaneous syringe (Prolia) 60 mg subcut .Q6MO osteoporosis 09/05/22 [History Last Taken 08/27/22] oxybutynin chloride 15 mg tablet,extended release 24 hr 15 mg PO DAILY Overactive bladder 09/05/22 [History Last Taken 01/14/23] polyethylene glycol 3350 17 gram/dose oral powder (Miralax) 17 g PO DAILY PRN constipation 09/05/22 [History Last Taken 09/05/22] ferrous sulfate 325 mg (65 mg iron) tablet 325 mg PO QODAY SUPPLEMENT #30 tabs 12/24/22 [Rx Last Taken 01/13/23] lamotrigine 100 mg tablet 200 mg PO DAILY Bipolar Disorder 03/19/23 [History Last Taken 04/16/23] losartan 25 mg tablet 25 mg PO DAILY BP 03/19/23 [History Last Taken 04/16/23] cinacalcet 30 mg tablet 60 mg (2 x 30 mg) PO BID 30 days #120 tabs 04/08/23 [Rx Last Taken Unknown] memantine 10 mg tablet 10 mg PO DAILY Check with primary doctor 04/20/23 [History Last Taken Unknown] prochlorperazine 25 mg rectal suppository 25 mg PA Q12H #12 ea 04/20/23 [Rx Last Taken Unknown] lansoprazole 30 mg capsule,delayed release 30 mg PO BID #60 caps 05/06/23 [Rx Last Taken Unknown] ondansetron HCl 4 mg tablet See Rx Instructions PO Q6H PRN nausea and vomiting #90 tabs 05/06/23 [Rx Last Taken Unknown] lorazepam 2 mg tablet 2 mg PO .QID 06/11/23 [History Last Taken Unknown] guaifenesin 100 mg/5 mL oral liquid 200 mg (10 mL) PO Q4H PRN congestion #1,000 mL 06/17/23 [Rx Last Taken Unknown] hyoscyamine sulfate 0.125 mg sublingual tablet 0.125 mg PO BID PRN dyspepsia #14 tabs 07/09/23 [Rx Last Taken Unknown] cholecalciferol (vitamin D3) 50 mcg (2,000 unit) capsule 100 mcg (2 x 50 mcg (2,000 unit)) PO DAILY #60 caps 07/16/23 [Rx Last Taken Unknown] ferric derisomaltose 100 mg iron/mL intravenous solution (Monoferric) 1,000 mg (10 mL) .Route ONCE #10 mL 07/16/23 [Rx Last Taken Unknown] Allergy/AdvReac Type Severity Reaction Status Date / Time No Known Allergies Allergy Verified 07/17/23 08:13 Family History Father CVA (cerebral vascular accident) Sister CVA (cerebral vascular accident) Cancer Surgical History History of esophagogastroduodenoscopy (EGD) Hx of esophagogastroduodenoscopy Social History household members: spouse housing: house Smoking Status: Former smoker Tobacco: How many years used: 4 second hand exposure: Yes alcohol intake: never substance use type: does not use what type of physical activity do you participate in: other details: OT PT - [facility] IN [place] frequency: daily valentina/advent: [employer] seatbelt use: always additional social history: Ambulates at baseline without assistive device ROS ROS ED ROS Narrative Denies recent illness. Review of Systems ROS Unobtainable: Denies due to encephalopathy Constitutional Constitutional ED: Denies chills or fever(s) Eyes Eyes: Denies blurry vision ENT ENT ED: Denies ear pain Cardiovascular Cardiovascular: Denies chest pain Respiratory/Chest Respiratory/Chest: Denies cough or dyspnea Gastrointestinal Gastrointestinal: Denies abdominal pain Genitourinary Genitourinary ED: Denies dysuria or hematuria Musculoskeletal Musculoskeletal: Denies arthralgias Integumentary Denies abscess Neurologic Neurologic: Denies headache(s) Psychiatric Psychiatric: Denies anxiety Endocrine Endocrinology: Denies cold intolerance Hematologic/Lymphatic Hematologic/Lymphatic: Reports none Allergic/Immunologic Allergic/Immunologic ED: Denies mouth swelling, tongue swelling or urticaria EXAM Physical Exam Narrative Exam Narrative: Well-appearing 73-year-old female. Vital signs stable afebrile. No distress. HEENT exam unremarkable. Neck nontender. Lungs clear. Heart regular rhythm rate about 90. Abdomen soft nondistended normal bowel sounds no peritoneal signs. She has a feeding tube in the left upper quadrant. There is debris all through the tube. Abdomen is nontender. Soft. Moves all 4 extremities. Awake and alert. Exam benign. Const Vital Signs: 07/17/23 08:13 Temperature 95.8 F L Temperature Source Temporal Pulse Rate 95 Respiratory Rate 12 Blood Pressure 125/86 H Blood Pressure Mean 99 Pulse Ox 95 Oxygen Delivery Method Room Air Positive well nourished and well developed; Negative for cachectic, contractures or unkempt General Appearance ED: well developed and NAD; Negative for unkempt, cachectic, contractures, cyanotic or diaphoretic Nutritional Appearance: Negative for cachectic HEENT Reports moist mucous membranes; Denies dry mucous membranes Negative for trauma or tenderness Mouth ED: No dry mucous membranes Mouth: No dry mucous membranes Eyes EOMs intact bilaterally General Eye ED: Negative for pale conjunctiva or scleral icterus Neck no lymphadenopathy, supple and no JVD General: Negative for tenderness Lymph Lymphatic: Negative for other Chest Wall inspection of chest normal and palpation of chest normal Chest: Negative for other Resp normal respiratory effort and clear to auscultation bilaterally Effort and Inspection: Negative for retractions Auscultation: Negative for rales, rhonchi or wheezes Cardio regular rhythm, S1 normal heart sound, S2 normal heart sound and no murmurs Palpation: Negative for palpable S3 or palpable S4 Rate: Negative for bradycardia or tachycardic GI normal to inspection, nondistended, normoactive bowel sounds, non-tender, non-distended and no masses GI Narrative: Feeding tube left upper quadrant. Inspection: Negative for abdominal distention Palpation: soft; Negative for tender, guarding, mass or rebound tenderness present Back/Spine no CVA tenderness Extremity normal to inspection General Extremety ED: Negative for edema or tenderness General Extremity: Negative for edema Neuro oriented x3 Sensorium / Orientation: alert; Negative for orientation impaired, lethargic or stuporous Motor Exam: strength 5/5 throughout Psych mental status grossly normal Appearance: Negative for unkempt Attitude: No agitated Mood & Affect: Negative for depressed, anxious or tearful Skin no rashes or lesions noted and no wounds General Skin Exam: elasticity normal; Negative for jaundice Rashes: No rashes noted Trauma: Negative for abrasion Wounds: Negative for wounds noted MDM MDM MDM Narrative Medical decision making narrative: 73-year-old female the feeding tube is clogged. Overnight nurses tried to irrigate it. Nurse was able to irrigate and flush out the tube. Its flowing well now. Patient be discharged home. They are asked to get a go to the GI doctors office, Dr. Verma, who also has an enzyme he can irrigate the tube with. Discharge Plan Triage Chief Complaint: General Illness ED Provider: Donald Hinds Dx/Rx/DC Orders Clinical Impression: Clogged feeding tube, Gastroparesis Prescriptions: No Action lansoprazole 30 mg capsule,delayed release(DR/EC) 30 mg PO BID Qty: 60 3RF ondansetron HCl 4 mg tablet See Rx Instructions PO Q6H PRN (Reason: nausea and vomiting) Qty: 90 3RF Rx Instructions: take 1-2 orally every 6 hours PRN; Monoferric 100 mg iron/mL solution 1,000 mg .Route ONCE Qty: 10 0RF Rx Instructions: 1000 mg IV x1 cholecalciferol (vitamin D3) 50 mcg (2,000 unit) capsule 100 mcg PO DAILY Qty: 60 7RF methimazole 5 MG tablet 5 mg PO SUMOWEFR oxybutynin chloride 15 mg tablet extended release 24hr 15 mg PO DAILY Patient Comments: take 1 tablet by mouth every morning polyethylene glycol 3350 [Miralax] 17 gram/dose Powder 17 g PO DAILY PRN (Reason: constipation) Prolia 60 mg/mL Syringe 60 mg SUBCUT .Q6MO ferrous sulfate 325 MG tablet 325 mg PO QODAY Qty: 30 0RF lorazepam 2 mg tablet 2 mg PO .QID losartan 25 mg tablet 25 mg PO DAILY lamotrigine 100 mg tablet 200 mg PO DAILY Patient Comments: take 1 tablet by mouth once daily for 2 WEEKS then INCREASE to 1 ... (REFER TO PRESCRIPTION NOTES). cinacalcet 30 mg Tablet 60 mg PO BID 30 Days Qty: 120 0RF memantine 10 MG tablet 10 mg PO DAILY prochlorperazine 25 mg suppository 25 mg PA Q12H Qty: 12 3RF guaifenesin 100 mg/5 mL liquid 200 mg PO Q4H PRN (Reason: congestion) Qty: 1000 3RF hyoscyamine sulfate 0.125 mg tablet, sublingual 0.125 mg PO BID PRN (Reason: dyspepsia) Qty: 14 3RF Primary Care Provider: Jay Kincaid NP Referrals: Francis Verma DO [Med Staff - Active Staff] - As soon as possible Jay Kincaid NP, [employer] MANAGER-C [Primary Care Provider] - Activity Restrictions/Additional Instructions: Follow-up with us or Dr. Verma if any further feeding tube problems. Disposition Disposition: Home, Self Care
== END 2023-07-17 09:19 | disposition home or self-care (01) ==
PROVIDERS: Emergency Provider Emergency Medicine; PCP Nurse Practitioner Family; Visit Provider Emergency Medicine
DX: K94.23 Gastrostomy malfunction (principal); F31.9 Bipolar disorder, unspecified; K31.84 Gastroparesis; K21.00 Gastro-esophageal reflux disease with esophagitis, without bleeding; I10 Essential (primary) hypertension; Z87.891 Personal history of nicotine dependence; Z79.899 Other long term (current) drug therapy
CPT/HCPCS: 99282

== ENCOUNTER 2023-07-17 09:24 | Outpatient (RCR) | payer MEDICARE, SELFPAY ==
[2023-06-09 00:59] VITALS: BMI 20.4
[2023-07-17 11:51] LABS: ALB/GLOB Ratio 0.9 RATIO (0.9-2.4); AST(SGOT) 18 U/L (15-37); Alanine Aminotransfer ALT/SGPT 22 U/L (13-56); Albumin, Serum 3.8 g/dL (3.2-5.0); Alkaline Phosphatase 99 U/L (45-117); Anion Gap 5 (5-15); BUN 53 mg/dL (7-18); BUN/Creat Ratio 22.6 RATIO (10-20); Calcium,Total 9.6 mg/dL (8.5-10.1); Chloride 110 mmol/L (98-107); Creatinine, Serum 2.35 mg/dL (0.55-1.02); EST Glomerular Filtration Rate 22 mL/min (>60); Est Glom Filt Rate - Afr Amer 26 mL/min (>60); Globulin 4.3 g/dL (2.2-4.2); Glucose 79 mg/dL (74-106); Potassium 4.2 mmol/L (3.5-5.1); Protein, Total 8.1 g/dL (6.4-8.2); Sodium Level 140 mmol/L (136-145)
== END 2023-07-17 18:00 | disposition home or self-care (01) ==
LOC: LAB 09:24
PROVIDERS: Family Provider Nurse Practitioner Family; PCP Nurse Practitioner Family; Referring Provider Nurse Practitioner Family; Visit Provider Nurse Practitioner Family
DX: N17.9 Acute kidney failure, unspecified; N18.4 Chronic kidney disease, stage 4 (severe)
CPT/HCPCS: 36415; 80053

== ENCOUNTER → 2023-07-23 | Outpatient (CLI) | payer MEDICARE, SELFPAY ==
--- NOTE | 2023-07-23 12:44 | CDU_ITS ---
Reason For Study: Rt Carotid Bruit Rt. Velocities/BP Lt. Velocities/BP Prox CCA 81.8/22.8 cm/sec. Prox CCA 84.2/27.0 cm/sec. Mid CCA 68.3/21.6 cm/sec. Mid CCA 71.4/24.2 cm/sec. Dist CCA 63.4/21.6 cm/sec. Dist CCA 61.0/24.2 cm/sec. Prox ICA 75.6/17.9 cm/sec. Prox ICA 65.5/31.4 cm/sec. Mid ICA 68.3/31.4 cm/sec. Mid ICA 63.3/30.7 cm/sec. Dist ICA 73.4/33.4 cm/sec. Dist ICA 107.0/50.4 cm/sec. Rt. ICA/CCA = 1.1. Lt. ICA/CCA = 1.5. Prox ECA 59.1/11.9 cm/sec. Prox ECA 51.1/11.0 cm/sec. Rt. Vert. 53.7/19.7 cm/sec. Lt. Vert. 50.6/24.2 cm/sec. Right Extracranial There is heterogeneous, smooth atherosclerotic plaque noted in the right common carotid artery. There is heterogeneous, irregular atherosclerotic plaque noted in the right internal carotid artery. The right internal carotid artery is very tortuous. There is intimal thickening but no significant atherosclerotic plaque noted in the right external carotid artery. Antegrade flow is noted in the right vertebral artery. Left Extracranial There is homogeneous, smooth atherosclerotic plaque noted in the left common carotid artery. There is heterogeneous, irregular atherosclerotic plaque noted in the left internal carotid artery. The left internal carotid artery is very tortuous. There is intimal thickening but no significant atherosclerotic plaque noted in the left external carotid artery. Antegrade flow is noted in the left vertebral artery. Procedure Carotid Duplex 19718. This is a Carotid Duplex examination using B-mode, color flow and specral Doppler. The exam was diagnostic. Exam performed in department. VL/Carotid Duplex Ultrasound Interpretation Summary Mild (<50%) stenosis right extracranial internal carotid. Mild (<50%) stenosis left extracranial internal carotid. Patent and antegrade vertebrals bilaterally. Ordering Physician: Mike Tolbert Referring Physician: Jay Kincaid Performed By: Getachew Kennedy RVT
== END | disposition home or self-care (01) ==
LOC: CVS 12:44
PROVIDERS: PCP Nurse Practitioner Family; Referring Provider Psychiatry & Neurology Neurology; Visit Provider Psychiatry & Neurology Neurology
DX: R09.89 Other specified symptoms and signs involving the circulatory and respiratory systems (principal)
CPT/HCPCS: 93880

== ENCOUNTER → 2023-07-28 | Outpatient (CLI) | payer MEDICARE, SELFPAY ==
--- NOTE | 2023-07-28 12:46 | RAD_ITS ---
PROCEDURE: Feeding tube assessment. DATE OF EXAMINATION: July 28, 2023. INDICATION: Female, 73 years old. Assessment of the indwelling jejunostomy tube. PHYSICIAN: Dr. Schmitt on the FLUOROSCOPY TIME (if supplied): (1 minute and 14 seconds) minutes/seconds. 21.1 mGy. 4 images were obtained. Gastrografin was injected into the indwelling jejunostomy tube. The tube is patent. There is filling of the jejunum. RAD/Fluoroscopy 1 Hr or Less IMPRESSION: Patent jejunostomy tube. Electronically Signed: Cheng Schmitt MD at 13:26 EDT ,
== END | disposition home or self-care (01) ==
LOC: RAD 12:44
PROVIDERS: PCP Nurse Practitioner Family; Referring Provider Internal Medicine Gastroenterology; Visit Provider Internal Medicine Gastroenterology
DX: T85.598A Other mechanical complication of other gastrointestinal prosthetic devices, implants and grafts, initial encounter (principal); Y82.8 Other medical devices associated with adverse incidents
CPT/HCPCS: 76000

== ENCOUNTER 2023-08-03 07:58 | Emergency (ER) | payer MEDICARE, SELFPAY ==
[2023-08-03 08:00] VITALS: BP 128/87; PULSE 64; RESP 14; TEMP 36.4; O2SAT 98; BMI 22.6
--- NOTE | 2023-08-03 08:55 | EDS_ITS ---
HPI History of Present Illness Chief Complaint: Chest Other Informant: patient and spouse/S.O. Narrative Narrative: Here due to PEG tube blockage. She had this tube placed originally about 2 or 3 months ago. This is due to gastroparesis and esophageal strictures. She still is able to eat and drink some but very small amounts. She has had problems with blockages ever since she got it. This was 1 blocked again last night and they just cannot get it undone. They have some chemicals and enzymes that they use to clean it but they are not working. Patient states she is feels fine. There is no abdominal pain. She is able to get some liquids and foods in. She is just here to see if we can get this on block for her. [facility] Medical History Acute renal insufficiency Acute uremia CITLALY (acute kidney injury) Anemia Anemia Anemia, unspecified Anxiety Back pain Bipolar disorder Bipolar disorder Bipolar disorder with moderate depression Bladder disease Delirium due to multiple etiologies Diabetes insipidus Dietary restriction Difficulty chewing Dysphagia Erosive esophagitis [place] Former smoker Gastric reflux Gastroparesis Generalized weakness Gram-negative bacteremia History of edema History of gastrostomy tube placement History of herpes zoster History of hiatal hernia History of jejunostomy tube placement Hypercalcemia Hypernatremia Hypertension Hypertension Iron deficiency anemia Nondiabetic gastroparesis Post-menopausal Pulmonary emboli Secondary hyperparathyroidism of renal origin Severe dehydration Severe malnutrition Severe malnutrition Stenosis of esophagus Tardive dyskinesia Thyroid disease Unsteady gait UTI (urinary tract infection) Wears glasses Home Medications methimazole 5 mg tablet 5 mg PO SUMOWEFR Thyroid 10/04/20 [History Last Taken 01/14/23] denosumab 60 mg/mL subcutaneous syringe (Prolia) 60 mg subcut .Q6MO osteoporosis 09/05/22 [History Last Taken 08/27/22] oxybutynin chloride 15 mg tablet,extended release 24 hr 15 mg PO DAILY Overactive bladder 09/05/22 [History Last Taken 01/14/23] polyethylene glycol 3350 17 gram/dose oral powder (Miralax) 17 g PO DAILY PRN constipation 09/05/22 [History Last Taken 09/05/22] ferrous sulfate 325 mg (65 mg iron) tablet 325 mg PO QODAY SUPPLEMENT #30 tabs 12/24/22 [Rx Last Taken 01/13/23] lamotrigine 100 mg tablet 200 mg PO DAILY Bipolar Disorder 03/19/23 [History Last Taken 04/16/23] losartan 25 mg tablet 25 mg PO DAILY BP 03/19/23 [History Last Taken 04/16/23] cinacalcet 30 mg tablet 60 mg (2 x 30 mg) PO BID 30 days #120 tabs 04/08/23 [Rx Last Taken Unknown] memantine 10 mg tablet 10 mg PO DAILY Check with primary doctor 04/20/23 [History Last Taken Unknown] prochlorperazine 25 mg rectal suppository 25 mg HI Q12H #12 ea 04/20/23 [Rx Last Taken Unknown] lansoprazole 30 mg capsule,delayed release 30 mg PO BID #60 caps 05/06/23 [Rx Last Taken Unknown] ondansetron HCl 4 mg tablet See Rx Instructions PO Q6H PRN nausea and vomiting #90 tabs 05/06/23 [Rx Last Taken Unknown] lorazepam 2 mg tablet 2 mg PO .QID 06/11/23 [History Last Taken Unknown] guaifenesin 100 mg/5 mL oral liquid 200 mg (10 mL) PO Q4H PRN congestion #1,000 mL 06/17/23 [Rx Last Taken Unknown] hyoscyamine sulfate 0.125 mg sublingual tablet 0.125 mg PO BID PRN dyspepsia #14 tabs 07/09/23 [Rx Last Taken Unknown] cholecalciferol (vitamin D3) 50 mcg (2,000 unit) capsule 100 mcg (2 x 50 mcg (2,000 unit)) PO DAILY #60 caps 07/16/23 [Rx Last Taken Unknown] ferric derisomaltose 100 mg iron/mL intravenous solution (Monoferric) 1,000 mg (10 mL) .Route ONCE #10 mL 07/16/23 [Rx Last Taken Unknown] Allergy/AdvReac Type Severity Reaction Status Date / Time No Known Allergies Allergy Verified 07/17/23 08:13 Family History Father CVA (cerebral vascular accident) Sister CVA (cerebral vascular accident) Cancer Surgical History History of esophagogastroduodenoscopy (EGD) Hx of esophagogastroduodenoscopy Social History household members: spouse housing: house Smoking Status: Former smoker Tobacco: How many years used: 4 second hand exposure: Yes alcohol intake: never substance use type: does not use what type of physical activity do you participate in: other details: OT PT - [facility] IN [place] frequency: daily valentina/hindu: Scientologist seatbelt use: always additional social history: Ambulates at baseline without assistive device ROS ROS ED Constitutional Constitutional ED: Denies chills or fever(s) Cardiovascular Cardiovascular: Denies chest pain or palpitations Respiratory/Chest Respiratory/Chest: Denies cough Gastrointestinal Gastrointestinal: Denies abdominal pain, diarrhea, nausea or vomiting Musculoskeletal Musculoskeletal: Denies myalgias Integumentary Denies rash Hematologic/Lymphatic Hematologic/Lymphatic: Denies easy bleeding or easy bruising Allergic/Immunologic Allergic/Immunologic ED: Denies urticaria EXAM Physical Exam Narrative Exam Narrative: Is awake alert no acute distress sitting comfortably on the bed. She is reading a book as I walk in. HEENT shows moist mucous membranes Lungs are clear. Saturations are normal at 98% on room air showing no hypoxia. Heart is regular. Abdomen is soft completely nontender. Is not distended. PEG tube looks appropriately placed. No inflammation around the insertion site or drainage. There is some blue material coating the inside of the PEG that makes me think some of this might be related to medicine particles. Const Vital Signs: 08/03/23 08:00 08/03/23 08:09 Temperature 97.6 F L Temperature Source Temporal Pulse Rate 64 Respiratory Rate 14 Respiratory Pattern Normal Blood Pressure 128/87 H Blood Pressure Mean 100 Pulse Ox 98 Oxygen Delivery Method Room Air MDM MDM MDM Narrative Medical decision making narrative: We have made multiple trips back to the room trying to get [facility]. We were able to place [employer] and it get a small amount through. But it seems like the inner tube and the outer tube may have had a leaking connection. We tried to use a declog or brush but it would not go through the inner port. I then used a central line wire. I was able to get part way through the inner port but it was clogged at the end and would not go through even despite multiple trips [id number] using this wire and [employer]. There appeared to be a leak up near the hub also. I then removed the snap ring. I remove the hub and the inner tube. It was heavily caked and twisted at the end. I cut off this inner tube to about 3 cm in length. I was able to replace the hub back onto the outer tube and reattach the hub compressive device. It then flowed and worked fine. It is not the same type of tube as she had. It is more of a standard PEG tube. But it is functional enough that she can follow-up with her motor vehicle inspector. I am calling the office to let them know what was done. Approximately 45 minutes total time was spent with the multiple trips trying to get this to be functional. Procedures Other Procedures Procedure(s): PEG tube declogging. Multiple trips with [employer], attempted use of declog her enteral feeding tube device, central line guidewire, [employer], modification of tube then done. Please see MDM Discharge Plan Triage Chief Complaint: Chest Other ED Provider: Josue Winter Dx/Rx/DC Orders Clinical Impression: Malfunction of percutaneous endoscopic gastrostomy (PEG) tube Instructions: Gastrostomy Feeding Tube Care ... Prescriptions: No Action lansoprazole 30 mg capsule,delayed release(DR/EC) 30 mg PO BID Qty: 60 3RF ondansetron HCl 4 mg tablet See Rx Instructions PO Q6H PRN (Reason: nausea and vomiting) Qty: 90 3RF Rx Instructions: take 1-2 orally every 6 hours PRN; Monoferric 100 mg iron/mL solution 1,000 mg .Route ONCE Qty: 10 0RF Rx Instructions: 1000 mg IV x1 cholecalciferol (vitamin D3) 50 mcg (2,000 unit) capsule 100 mcg PO DAILY Qty: 60 7RF methimazole 5 MG tablet 5 mg PO SUMOWEFR oxybutynin chloride 15 mg tablet extended release 24hr 15 mg PO DAILY Patient Comments: take 1 tablet by mouth every morning polyethylene glycol 3350 [Miralax] 17 gram/dose Powder 17 g PO DAILY PRN (Reason: constipation) Prolia 60 mg/mL Syringe 60 mg SUBCUT .Q6MO ferrous sulfate 325 MG tablet 325 mg PO QODAY Qty: 30 0RF lorazepam 2 mg tablet 2 mg PO .QID losartan 25 mg tablet 25 mg PO DAILY lamotrigine 100 mg tablet 200 mg PO DAILY Patient Comments: take 1 tablet by mouth once daily for 2 WEEKS then INCREASE to 1 ... (REFER TO PRESCRIPTION NOTES). cinacalcet 30 mg Tablet 60 mg PO BID 30 Days Qty: 120 0RF memantine 10 MG tablet 10 mg PO DAILY prochlorperazine 25 mg suppository 25 mg HI Q12H Qty: 12 3RF guaifenesin 100 mg/5 mL liquid 200 mg PO Q4H PRN (Reason: congestion) Qty: 1000 3RF hyoscyamine sulfate 0.125 mg tablet, sublingual 0.125 mg PO BID PRN (Reason: dyspepsia) Qty: 14 3RF Primary Care Provider: Jay Kincaid NP Referrals: Francis Verma DO [Med Staff - Active Staff] - As soon as possible Jay Kincaid NP, BOBBIN PRESSER-C [Primary Care Provider] - Disposition Disposition: Home, Self Care
== END 2023-08-03 11:01 | disposition home or self-care (01) ==
PROVIDERS: Emergency Provider Emergency Medicine; PCP Nurse Practitioner Family; Visit Provider Emergency Medicine
DX: K94.23 Gastrostomy malfunction (principal); F31.9 Bipolar disorder, unspecified; K21.00 Gastro-esophageal reflux disease with esophagitis, without bleeding; I10 Essential (primary) hypertension; Z87.891 Personal history of nicotine dependence; E07.9 Disorder of thyroid, unspecified; Z79.899 Other long term (current) drug therapy
CPT/HCPCS: 43762; 99283

== ENCOUNTER 2023-08-04 12:48 | Outpatient (CLI) | payer MEDICARE, SELFPAY ==
[2023-08-04 13:35] VITALS: BP 118/76; PULSE 85; RESP 16; TEMP 37.1; O2SAT 96; BMI 22.6
[2023-08-04] MEDS: 0.9% NaCl IVPB Med Flush (250 mL) 15 ML IV (13:39)
[2023-08-04] MEDS: 0.9% NaCl Peripheral Flush Adult/Peds IV (13:39)
[2023-08-04] MEDS: Ferric Derisomaltose (Monoferric) 1,000 MG in 0.9% NaCl 100 ML 330 MG IV (13:45)
[2023-08-04 14:45] VITALS: BP 119/75; PULSE 75; RESP 16; TEMP 36.9; O2SAT 97
== END 2023-08-04 12:49 | disposition home or self-care (01) ==
PROVIDERS: PCP Nurse Practitioner Family; Referring Provider Psychiatry & Neurology Neurology; Visit Provider Psychiatry & Neurology Neurology
DX: D50.9 Iron deficiency anemia, unspecified (principal)
CPT/HCPCS: 96365; J1437; J7050; A4216

== ENCOUNTER 2023-08-27 12:09 | Outpatient (RCR) | payer MEDICARE, SELFPAY ==
[2023-08-09 04:12] VITALS: BMI 20.4
[2023-08-27 13:19] LABS: ALB/GLOB Ratio 0.9 RATIO (0.9-2.4); AST(SGOT) 17 U/L (15-37); Alanine Aminotransfer ALT/SGPT 23 U/L (13-56); Albumin, Serum 3.6 g/dL (3.2-5.0); Alkaline Phosphatase 88 U/L (45-117); Anion Gap 3 (5-15); BUN 51 mg/dL (7-18); BUN/Creat Ratio 26.2 RATIO (10-20); Calcium,Total 9.2 mg/dL (8.5-10.1); Chloride 106 mmol/L (98-107); Creatinine, Serum 1.95 mg/dL (0.55-1.02); EST Glomerular Filtration Rate 27 mL/min (>60); Est Glom Filt Rate - Afr Amer 32 mL/min (>60); Globulin 3.8 g/dL (2.2-4.2); Glucose 74 mg/dL (74-106); Potassium 4.8 mmol/L (3.5-5.1); Protein, Total 7.4 g/dL (6.4-8.2); Sodium Level 140 mmol/L (136-145)
== END 2023-08-27 18:00 | disposition home or self-care (01) ==
LOC: LAB 12:09
PROVIDERS: Family Provider Nurse Practitioner Family; PCP Nurse Practitioner Family; Referring Provider Nurse Practitioner Family; Visit Provider Nurse Practitioner Family
DX: N17.9 Acute kidney failure, unspecified (principal); N18.4 Chronic kidney disease, stage 4 (severe)
CPT/HCPCS: 36415; 80053

== ENCOUNTER → 2023-09-08 | Outpatient (CLI) | payer MEDICARE, SELFPAY ==
[2023-09-08 11:35] LABS: Hematocrit 37.1 % (37-47); Hemoglobin 11.2 g/dL (12.0-15.0); Mean Corp Hgb Conc 30.2 g/dL (32-36); Mean Corpuscular Hgb 29.7 pg (27.0-32.0); Mean Corpuscular Volume 98.4 fL (81-99); Mean Platelet Vol. 9.5 fl (6.2-12.0); Platelet Count 242 K/mm3 (150-450); RBC Distribution Width CV 14.8 % (11.6-14.6); RBC Distribution Width SD 53.7 fl (35.1-43.9); Red Blood Count 3.77 M/mm3 (4.2-5.4); White Blood Count 5.2 K/mm3 (4.4-11.0)
[2023-09-08 12:03] LABS: Albumin, Serum 3.5 g/dL (3.2-5.0); BUN 55 mg/dL (7-18); BUN/Creat Ratio 28.4 RATIO (10-20); Calcium,Total 9.3 mg/dL (8.5-10.1); Chloride 108 mmol/L (98-107); Creatinine, Serum 1.94 mg/dL (0.55-1.02); EST Glomerular Filtration Rate 27 mL/min (>60); Est Glom Filt Rate - Afr Amer 32 mL/min (>60); Glucose 88 mg/dL (74-106); Phosphorus 4.2 mg/dL (2.5-4.9); Potassium 4.7 mmol/L (3.5-5.1); Sodium Level 140 mmol/L (136-145)
[2023-09-08 12:04] LABS: Protein, Urine (Random) 20.1 mg/dL (<11.9); Protein:Creat Ratio 1020 mg/g CRE (0-200)
[2023-09-08 12:06] LABS: PTHIN 88.2 pg/mL (18.4-80.1)
== END | disposition home or self-care (01) ==
LOC: LAB 10:46
PROVIDERS: PCP Nurse Practitioner Family; Referring Provider Internal Medicine Nephrology; Visit Provider Internal Medicine Nephrology
DX: N18.32 Chronic kidney disease, stage 3b (principal)
CPT/HCPCS: 36415; 80069; 82306; 82570; 83970; 84156; 85027

== ENCOUNTER → 2023-10-09 | Outpatient (CLI) | payer MEDICARE, SELFPAY ==
[2023-10-09 10:55] LABS: Absolute Neutrophil Count 3.8 X10^3/uL (2.0-7.7); Basophil# 0.03 X10^3/uL; Basophil% 0.5 % (0-1); Eosinophil# 0.23 X10^3/uL; Eosinophils% 3.9 % (0-5); Hematocrit 37.2 % (37-47); Lymphocyte % 23.5 % (19-41); Mean Corp Hgb Conc 32.3 g/dL (32-36); Mean Corpuscular Volume 99.2 fL (81-99); Mean Platelet Vol. 9.1 fl (6.2-12.0); Monocyte% 8.4 % (0-10); NRBC Flagged by Analyzer 0 % (0-5); Neutrophil # 3.79 X10^3/uL (2.7-7.7); Neutrophil % 63.5 % (47-70); Platelet Count 245 K/mm3 (150-450); RBC Distribution Width CV 13.3 % (11.6-14.6); Red Blood Count 3.75 M/mm3 (4.2-5.4)
[2023-10-09 11:24] LABS: PTHIN 100.2 pg/mL (18.4-80.1)
[2023-10-09 11:29] LABS: ALB/GLOB Ratio 0.9 RATIO (0.9-2.4); AST(SGOT) 14 U/L (15-37); Alanine Aminotransfer ALT/SGPT 15 U/L (13-56); Albumin, Serum 3.6 g/dL (3.2-5.0); Alkaline Phosphatase 79 U/L (45-117); Anion Gap 4 (5-15); BUN 53 mg/dL (7-18); BUN/Creat Ratio 24.1 RATIO (10-20); Calcium,Total 9.2 mg/dL (8.5-10.1); Chloride 108 mmol/L (98-107); EST Glomerular Filtration Rate 23 mL/min (>60); Est Glom Filt Rate - Afr Amer 28 mL/min (>60); Ferritin 335 ng/mL (8-252); Free T3 2.4 pg/mL (2.18-3.98); Glucose 95 mg/dL (74-106); Iron 67 ug/dL (50-170); Iron Binding Capacity,Total 367 ug/dL (250-450); PERCENT IRON SATURATION 18.3 % (15.0-55.0); Phosphorus 3.6 mg/dL (2.5-4.9); Potassium 4.7 mmol/L (3.5-5.1); Protein, Total 7.6 g/dL (6.4-8.2); Sodium Level 141 mmol/L (136-145); T4 Free Direct 0.94 ng/dL (0.76-1.46); Thyroid Stim Hormone (TSH) 0.73 uIU/mL (0.358-3.74)
== END | disposition home or self-care (01) ==
LOC: LAB 10:21
PROVIDERS: PCP Nurse Practitioner Family; Referring Provider Nurse Practitioner Family; Visit Provider Nurse Practitioner Family
DX: N18.4 Chronic kidney disease, stage 4 (severe) (principal); D63.1 Anemia in chronic kidney disease; E05.90 Thyrotoxicosis, unspecified without thyrotoxic crisis or storm
CPT/HCPCS: 36415; 80053; 82306; 82728; 83540; 83550; 83970; 84100; 84439; 84443; 84481; 85025

== ENCOUNTER → 2023-10-14 | Outpatient (CLI) | payer MEDICARE, SELFPAY ==
--- NOTE | 2023-10-14 08:01 | RAD_ITS ---
STUDY: AIR CONTRAST UPPER GI SERIES and esophagram. REASON FOR EXAM: Female, 73 years old. R13.10 - Dysphagia, unspecified -- esophageal stent FLUOROSCOPY TIME (if supplied): (56 seconds) minutes/seconds. 24 images were obtained. TECHNIQUE: SINGLE CONTRAST AND AIR CONTRAST FLUOROSCOPIC IMAGES. COMPARISON: Comparison is made with prior examination of December 22, 2022. FINDINGS: The cervical esophagus demonstrates normal motility without aspiration. There is no stricture or extrinsic mass effect. No intraluminal polypoid mass is identified. The thoracic esophagus distends well without stricture or mucosal fold thickening. No mucosal ulcerations are identified. Once again, there is circumferential narrowing of the distal 2.2 cm portion of the esophagus with evidence of a stent. There are no diverticula. Gastroesophageal reflux. Moderate-sized hiatal hernia. No hiatal hernia or gastroesophageal reflux was identified. The stomach distends well without mucosal fold thickening or mucosal ulceration. There is no intraluminal mass. The duodenal bulb is freely distensible without deformity or ulceration. The duodenal sweep is normal in position and caliber. RAD/Upper GI w/BA Swallow IMPRESSION: Esophageal stent is seen in the distal portion. There is evidence of gastroesophageal reflux and moderate hiatal hernia. Electronically Signed: Cheng Schmitt MD at 12:28 EST ,
== END | disposition home or self-care (01) ==
LOC: RAD 08:00
PROVIDERS: PCP Nurse Practitioner Family; Referring Provider Internal Medicine Gastroenterology; Visit Provider Internal Medicine Gastroenterology
DX: R13.10 Dysphagia, unspecified (principal)
CPT/HCPCS: 74246

== ENCOUNTER → 2023-10-15 | Outpatient (CLI) | payer MEDICARE, SELFPAY ==
--- NOTE | 2023-10-15 12:41 | NM_ITS ---
CLINICAL: 73-year-old female with history of clinical gastroparesis and previous abnormal semisolid gastric emptying examination. SEMI-SOLID PHASE 99m Tc SULFUR COLLOID GASTRIC EMPTYING STUDY COMPARISON: Previous gastric emptying study report dated 09/09/2022 FINDINGS: The patient was administered 1.2 mCi of 99m Tc sulfur colloid mixed with oatmeal and consumed per os. Image acquisitions in the anterior-posterior projections were obtained for 60 minutes. There is prompt visualization of the stomach. There is no gastroesophageal reflux identified. The T ? raw data emptying was calculated to be 48.90 minutes, (Normal: 12-56 minutes) compared to 73 minutes defined on the prior examination.. NM/Gastric Emptying Study IMPRESSION: 1. NORMAL 99m Tc sulfur colloid semi-solid phase (oatmeal) gastric emptying imaging examination. A. There is normal and preserved semi-solid phase gastric emptying compared to normal controls. (Trey et al, J Nucl Med Tech 38: 186, 2010). B. Overall compared to the previous semisolid phase gastric emptying study dated 09/09/2022, there is current normal semisolid phase gastric emptying as defined above. Electronically Signed: Jay Vega DO at 20:48 EST ,
== END | disposition home or self-care (01) ==
LOC: NM 12:41
PROVIDERS: PCP Nurse Practitioner Family; Referring Provider Internal Medicine Gastroenterology; Visit Provider Internal Medicine Gastroenterology
DX: K31.84 Gastroparesis (principal)
CPT/HCPCS: 78264; A9541

== ENCOUNTER 2023-10-29 13:24 | Outpatient (RCR) | payer MEDICARE, SELFPAY ==
[2023-09-08 22:33] VITALS: BMI 20.4
[2023-10-29 15:09] LABS: AST(SGOT) 20 U/L (15-37); Alanine Aminotransfer ALT/SGPT 17 U/L (13-56); Albumin, Serum 3.7 g/dL (3.2-5.0); Alkaline Phosphatase 79 U/L (45-117); Anion Gap 4 (5-15); BUN 49 mg/dL (7-18); BUN/Creat Ratio 24.6 RATIO (10-20); Chloride 105 mmol/L (98-107); Creatinine, Serum 1.99 mg/dL (0.55-1.02); EST Glomerular Filtration Rate 26 mL/min (>60); Est Glom Filt Rate - Afr Amer 32 mL/min (>60); Globulin 3.7 g/dL (2.2-4.2); Glucose 88 mg/dL (74-106); Potassium 4.6 mmol/L (3.5-5.1); Protein, Total 7.4 g/dL (6.4-8.2); Sodium Level 137 mmol/L (136-145)
== END 2023-11-08 18:00 | disposition home or self-care (01) ==
LOC: LAB 13:24
PROVIDERS: Family Provider Nurse Practitioner Family; PCP Nurse Practitioner Family; Referring Provider Nurse Practitioner Family; Visit Provider Nurse Practitioner Family
DX: N17.9 Acute kidney failure, unspecified (principal); N18.4 Chronic kidney disease, stage 4 (severe)
CPT/HCPCS: 36415; 80053

== ENCOUNTER 2023-12-14 11:14 | Outpatient (RCR) | payer MEDICARE, SELFPAY ==
[2023-11-08 23:11] VITALS: BMI 20.4
[2023-12-14 12:58] LABS: AST(SGOT) 16 U/L (15-37); Alanine Aminotransfer ALT/SGPT 17 U/L (13-56); Albumin, Serum 3.5 g/dL (3.2-5.0); Alkaline Phosphatase 74 U/L (45-117); Anion Gap 3 (5-15); BUN 56 mg/dL (7-18); BUN/Creat Ratio 29.5 RATIO (10-20); Calcium,Total 9.4 mg/dL (8.5-10.1); Chloride 103 mmol/L (98-107); EST Glomerular Filtration Rate 27 mL/min (>60); Est Glom Filt Rate - Afr Amer 33 mL/min (>60); Globulin 3.6 g/dL (2.2-4.2); Glucose 91 mg/dL (74-106); Potassium 4.7 mmol/L (3.5-5.1); Protein, Total 7.1 g/dL (6.4-8.2); Sodium Level 135 mmol/L (136-145)
== END 2024-01-07 18:00 | disposition home or self-care (01) ==
LOC: LAB 11:14
PROVIDERS: Family Provider Nurse Practitioner Family; PCP Nurse Practitioner Family; Referring Provider Nurse Practitioner Family; Visit Provider Nurse Practitioner Family
DX: N17.9 Acute kidney failure, unspecified (principal); N18.4 Chronic kidney disease, stage 4 (severe); E05.90 Thyrotoxicosis, unspecified without thyrotoxic crisis or storm; E21.3 Hyperparathyroidism, unspecified; M81.0 Age-related osteoporosis without current pathological fracture; E55.9 Vitamin D deficiency, unspecified
CPT/HCPCS: 36415; 80053

== ENCOUNTER → 2024-02-17 | Outpatient (CLI) | payer MEDICARE, SELFPAY ==
[2024-02-17 15:22] LABS: Hematocrit 33.9 % (37-47); Hemoglobin 10.6 g/dL (12.0-15.0); Mean Corp Hgb Conc 31.3 g/dL (32-36); Mean Corpuscular Hgb 31.3 pg (27.0-32.0); Mean Platelet Vol. 10.1 fl (6.2-12.0); Platelet Count 235 K/mm3 (150-450); RBC Distribution Width CV 12.9 % (11.6-14.6); Red Blood Count 3.39 M/mm3 (4.2-5.4); White Blood Count 13.2 K/mm3 (4.4-11.0)
[2024-02-17 16:01] LABS: PTHIN 79.2 pg/mL (18.4-80.1)
[2024-02-17 16:05] LABS: Vitamin D,25 Hydroxy 88.4 ng/mL
[2024-02-17 16:10] LABS: AST(SGOT) 15 U/L (15-37); Alanine Aminotransfer ALT/SGPT 14 U/L (13-56); Albumin, Serum 3.4 g/dL (3.2-5.0); Alkaline Phosphatase 75 U/L (45-117); Anion Gap 3 (5-15); BUN 59 mg/dL (7-18); BUN/Creat Ratio 27.7 RATIO (10-20); Calcium,Total 9.6 mg/dL (8.5-10.1); Chloride 104 mmol/L (98-107); Creatinine, Serum 2.13 mg/dL (0.55-1.02); EST Glomerular Filtration Rate 24 mL/min (>60); Est Glom Filt Rate - Afr Amer 29 mL/min (>60); Free T3 2.1 pg/mL (2.18-3.98); Globulin 3.5 g/dL (2.2-4.2); Glucose 92 mg/dL (74-106); Potassium 4.8 mmol/L (3.5-5.1); Protein, Total 6.9 g/dL (6.4-8.2); Sodium Level 137 mmol/L (136-145); T4 Free Direct 0.96 ng/dL (0.76-1.46)
== END | disposition home or self-care (01) ==
LOC: LAB 13:59
PROVIDERS: PCP Nurse Practitioner Family; Referring Provider Internal Medicine Endocrinology, Diabetes & Metabolism; Visit Provider Internal Medicine Endocrinology, Diabetes & Metabolism
DX: E05.90 Thyrotoxicosis, unspecified without thyrotoxic crisis or storm (principal); N18.4 Chronic kidney disease, stage 4 (severe); E21.3 Hyperparathyroidism, unspecified; M81.0 Age-related osteoporosis without current pathological fracture; E55.9 Vitamin D deficiency, unspecified
CPT/HCPCS: 36415; 80053; 82306; 83970; 84439; 84443; 84481; 85027

== ENCOUNTER → 2024-02-18 | Outpatient (CLI) | payer MEDICARE, SELFPAY ==
--- NOTE | 2024-02-18 13:55 | RAD_ITS ---
STUDY: X-RAY CHEST REASON FOR EXAM: Female, 73 years old. WHEEZING TECHNIQUE: PA and lateral views of the chest. COMPARISON: Comparison is made with prior study dated March 07, 2023. FINDINGS: Hyperinflation. Blunting of the costophrenic angles posteriorly. Normal size heart. Normal mediastinum and tarik. Normal visualized pulmonary arteries. There is atherosclerotic calcification of the aortic arch with tortuosity. There are degenerative changes of the visualized thoracic spine. Normal visualized ribs, clavicles, and shoulders. Small hiatal hernia. Endoluminal stent is seen within the proximal and mid esophagus. Large amount of fecal material is seen in the colon. A gastrostomy tube is seen within the fundal portion of the stomach. RAD/Chest PA and Lateral IMPRESSION: No acute infiltrate is seen. Blunting of both costophrenic angles posteriorly. Esophageal stent is seen. Electronically Signed: Cheng Schmitt MD at 14:11 EDT ,
== END | disposition home or self-care (01) ==
PROVIDERS: PCP Nurse Practitioner Family; Referring Provider Nurse Practitioner Family; Visit Provider Nurse Practitioner Family
DX: R05.8 Other specified cough (principal); R06.2 Wheezing; J20.9 Acute bronchitis, unspecified; Z87.01 Personal history of pneumonia (recurrent)
CPT/HCPCS: 71046

== ENCOUNTER → 2024-03-08 | Outpatient (CLI) | payer MEDICARE, SELFPAY ==
[2024-03-08 16:08] LABS: Hematocrit 35.7 % (37-47); Hemoglobin 11.4 g/dL (12.0-15.0); Mean Corp Hgb Conc 31.9 g/dL (32-36); Mean Corpuscular Volume 100.3 fL (81-99); Mean Platelet Vol. 9.7 fl (6.2-12.0); Platelet Count 271 K/mm3 (150-450); RBC Distribution Width CV 12.7 % (11.6-14.6); RBC Distribution Width SD 46.9 fl (35.1-43.9); Red Blood Count 3.56 M/mm3 (4.2-5.4)
[2024-03-08 16:21] LABS: Protein, Urine (Random) 14.6 mg/dL (<11.9); Protein:Creat Ratio 676 mg/g CRE (0-200)
[2024-03-08 16:33] LABS: PTHIN 107.2 pg/mL (18.4-80.1)
[2024-03-08 16:39] LABS: Vitamin D,25 Hydroxy 85.4 ng/mL
[2024-03-08 17:45] LABS: Albumin, Serum 3.7 g/dL (3.2-5.0); BUN 52 mg/dL (7-18); BUN/Creat Ratio 24.8 RATIO (10-20); Calcium,Total 9.6 mg/dL (8.5-10.1); Chloride 105 mmol/L (98-107); EST Glomerular Filtration Rate 24 mL/min (>60); Est Glom Filt Rate - Afr Amer 30 mL/min (>60); Glucose 93 mg/dL (74-106); Phosphorus 3.9 mg/dL (2.5-4.9); Potassium 4.8 mmol/L (3.5-5.1); Sodium Level 139 mmol/L (136-145)
== END | disposition home or self-care (01) ==
LOC: LAB 14:34
PROVIDERS: PCP Nurse Practitioner Family; Referring Provider Internal Medicine Nephrology; Visit Provider Internal Medicine Nephrology
DX: N18.32 Chronic kidney disease, stage 3b (principal)
CPT/HCPCS: 36415; 80069; 82306; 82570; 83970; 84156; 85027

== ENCOUNTER → 2024-03-31 | Outpatient (CLI) | payer MEDICARE, SELFPAY ==
--- NOTE | 2024-03-31 14:58 | BD_ITS ---
STUDY: DUAL ENERGY X-RAY ABSORPTIOMETRY / DXA REASON FOR EXAM: Female, 73 years old. M810 TECHNIQUE: Bone Mineral Density (BMD) measurements of lumbar spine and bilateral hips were obtained. COMPARISON: None. FINDINGS: Lumbar Spine (L1-L4): g/cm2 (0.703) / T-score (-2.9) / Z-score (-0.5) Findings are suggestive of osteoporosis with a high fracture risk. Left Femur Total: g/cm2 (0.682) / T-score (-2.1) / Z-score (-0.4) Left Femoral Neck: g/cm2 (0.606) / T-score (-2.2) / Z-score (-0.1) Right Femur Total: g/cm2 (0.708) / T-score (-1.9) / Z-score (-0.2) Right Femoral Neck: g/cm2 (0.595) / T-score (-2.3) / Z-score (-0.2) BD/Dexa Bone Density Study IMPRESSION: The patient is considered osteoporotic as outlined below according to World Edwar Organization (WHO) criteria with a high fracture risk. Reference Information: The T-score is the number of standard deviations above or below the standard which is normal for young adults at their peak bone mineral density. The World Health Organization (WHO) interprets the T-scores as follows: Above -1 Normal bone density Between -1 and -2.5 Osteopenia Equal to / or below -2.5 Osteoporosis As a practical clinical guideline, osteopenia may be graded as follows: Mild -1 through -1.5 Moderate -1.6 through -2.0 Severe -2.1 through -2.4 The Z-score is the number of standard deviations above or below age-matched controls. A Z-score of less than -1.5 would be considered abnormal. References: 1. NIH Osteoporosis and Related Bone Diseases www osteo.org 2. International Society for Clinical Densitometry www iscd.org 3. National Osteoporosis Foundation www nof.org Electronically Signed: Cheng Schmitt MD at 13:34 EDT ,
== END | disposition home or self-care (01) ==
LOC: OPBD 14:49
PROVIDERS: PCP Nurse Practitioner Family; Referring Provider Internal Medicine Endocrinology, Diabetes & Metabolism; Visit Provider Internal Medicine Endocrinology, Diabetes & Metabolism
DX: E05.90 Thyrotoxicosis, unspecified without thyrotoxic crisis or storm (principal); E21.3 Hyperparathyroidism, unspecified; M81.0 Age-related osteoporosis without current pathological fracture
CPT/HCPCS: 77080

== ENCOUNTER 2024-04-12 11:53 | Day surgery (SDC) | payer MEDICARE, SELFPAY ==
[2024-04-12 12:17] VITALS: BP 111/78; PULSE 90; RESP 16; TEMP 37.6; O2SAT 97; BMI 23.8
[2024-04-12] MEDS: Lactated Ringers 1,000 ML 15 ML IV (12:28)
--- NOTE | 2024-04-12 13:00 | EGD_PTH ---
PATIENT: SIMONA HERNANDEZ LOC: EN U#:[id number] AGE/SX: 73/F ROOM: RE04/12/[address]: Dr. Francis Verma DO : 1950 BED: DIS: 04/12/2024 SPEC #: [id number] RECD: 04/12/24 16:10 STATUS: NATALYA ORIANA #: [id number] HOLLIE: 04/12/24 13:[address]: Francis Verma DEPT: SURGICAL PATHOLOGY RECD BY: Sammie Fong ENTERED: 04/13/24 10:13 SP TYPE: EGD BIOPSY CAESAR DR: Jay Kincaid, RECONCILIATION ANALYST-C Tissues: Gastric mucous membrane Procedures: Special Stain Group I Surgery Specimen Level IV GMS Stain (control) HEADER OPERATION: EGD, Ivan-whitney peg with biopsy PRE-OP DIAGNOSIS: Esophageal stricture, gastroparesis TISSUE SUBMITTED: Gastric mass biopsy MICROSCOPIC DIAGNOSIS Gastric mass, biopsy: Ulceration with associated acute and chronic inflammation and granulation. Mild glandular architecture distortion. No evidence of malignancy. See comment. bharat 04/14/2024 COMMENT The results of immunohistochemistry for Helicobacter pylori will be reported separately ([id number]). GMS stain with matched control was used in the evaluation of this case. Case has been reviewed in consultation with Dr. Childs who concurs with the above diagnosis. IDC:MARY JANE MICROSCOPIC DESCRIPTION Slides are reviewed. GROSS DESCRIPTION Received in fixative is one container labeled with the patient's name and designated Gastric mass biopsy. The specimen consists of multiple irregular fragments of light regalado soft tissue that in aggregate measure 2.5 x 0.5 x 0.1 cm. The specimen is totally submitted in one cassette. bharat 04/13/2024 TC:2 CPT:18282,26610
--- NOTE | 2024-04-12 13:00 | IMM_PTH ---
PATIENT: SIMONA HERNANDEZ LOC: EN U#:[id number] AGE/SX: 73/F ROOM: RE04/12/[address]: Dr. Francis Verma DO : 1950 BED: DIS: 04/12/2024 SPEC #: [id number] RECD: 04/13/24 09:04 STATUS: NATALYA REQ #: [id number] HOLLIE: 04/12/24 13:[address]: Francis Verma DEPT: IMMUNOHISTOCHEMISTRY RECD BY: Dariusz Bailey ENTERED: 04/13/24 09:04 SP TYPE: IMMUNO OTHR DR: Jay Kincaid, LEAD MECHANICAL ENGINEER-C Tissues: Gastric mucous membrane Procedures: H Pylori (initial) P53 (initial) CD45 (add) CK20 (add) CK5-6 (add) CK7 (add) CK8 (add) KI-67 (add) Pankeratin (add) P40 (add) CDX2 (add) PHYSICIAN & [address] [address] SPECIMEN INFORMATION: Tissue Source: Gastric mass biopsy Clinical Info: Esophageal stricture, gastroparesis Specimen Number: [id number] CPT code: 21898,34893v89 METHODOLOGY: Deparaffinized sections of prefer/formalin-fixed tissue or PAP/DQ stained slides are incubated with monoclonal/polyclonal antibodies/oligonucleotide probes. Localization is made via biotin free immunoperoxidase method. Appropriate controls are performed and reacted as expected. Results on target cell population are indicated in the following table: RESULTS: ANTIBODY / CLONE RESULT H Pylori (polyclonal) negative AE1-3 (AE1/AE3/PCK26) positive CK7 (OV-TL12/30) positive CK8 (13xjunB65) positive CK20 (KS20.8) positive, focal CDX2 ([id number]) positive, rare CD45 (RP2/18) positive CK5-6 (D5 & 1684) negative P40 (BC28) negative P53 (DO-7) positive, wild type Ki-67 (30-9) positive, low These tests were developed and their performance characteristics determined by [facility]. They may not have been cleared or approved by the U.S. Food and Drug Administration. The FDA has determined that such clearance or approval is not necessary. The above immunohistochemical/dualISH markers are ordered and reviewed by the Pathologist. INTERPRETATION: Gastric mass, biopsy: No evidence of malignancy. MARY JANE/ 04/15/2024
--- NOTE | 2024-04-12 13:12 | PCM.HP.BLA ---
History and Physical Date of Admission: 04/12/24 SIMONA HERNANDEZ, is a 73 F who presents to the office today for follow up. *[facility] hospitalization 09.05.22-09.11.22 where she was treated for aspiration pneumonia and CITLALY in addition to chronic conditions. During hospitalization she was noted to be anemia and GI consulted with EGD performed. ? EGD 09.08.22 LA Grade D erosive esophagitis, bipolar cautery; esophageal plaques, candidiasis; small hiatal hernia ? Diflucan, PPI start. Recommend GET. ? Gastric emptying study 09.09.22 timed at 73 minutes (12-56). [facility] ED 10.06.22 with dysphagia. Biochemical workup and imaging concerning for ongoing aspiration pneumonia and discharged with liquid antibiotics. Outpatient workup ? Modified Barium swallow 09.30.[address] services. Notes esophageal retention of pudding and barium tablet. OV 10.28.22 for gastroparesis recommending start of azithromycin. ? EGD 11.06.22 LA Grade C erosive esophagitis, APC; benign esophageal stenosis, TTS dilation; medium hiatal hernia. [facility] hospitalization 12.15.22-12.24.22 where she was treated for CITLALY with electrolyte imbalances and chronic conditions. GI consulted for management of dysphagia. ? EGD 12.15.22 LA Grade D erosive esophagitis, APC; benign esophageal stenosis, TTS dilation; medium hiatal hernia. ? EGD 12.22.22 benign esophageal stenosis, TTS dilator; medium hiatal hernia. ? PPI BID and sucralfate. ? Barium swallow 12.22.22 evidence of apple core lesion of mid and distal esophagus; dilation of proximal esophagus; small hiatal hernia. [facility] hospitalization 3-01.19.23 where she was treated for CITLALY, malnutrition, dysphagia, bacteremia/UTI and chronic conditions. GI consulted for management of dysphagia. ? EGD 01.15.23 benign esophageal stenosis, TTS dilator; medium hiatal hernia. OV 01.21.23 recommending start of sucralfate and guaifenesin liquid. [facility] hospitalization 01.30.23-02.01.23 where she was treated for esophageal stricture, CITLALY and chronic conditions. GI consulted for management of dysphagia. ? EGD 01.31.23 benign esophageal stenosis, TTS dilator, injected with Botox and treated with APC; medium hiatal hernia. ? Sucralfate and protonix. Pulmonology, Psychiatry, ENT seen previously who do not feel her mucus/dysphagia are related to their field. Looking for neurologist to see soon. OV 02.06.23 feels she is doing well at this time. Denies dysphagia at this time. Reports phlegm in the mouth, but not in her esophagus. Hospitalization 03.04.23-03.06.23, 03.07.23-03.19.23 with admission to TCU, discharged 04.08.23 where she was treated for CITLALY with CKD III, hypercalcemia, bipolar disorder, chronic esophageal stricture. She was noted to have severe gastroparesis and EGD repeated to change termination of enteral feed. ? EGD 03.05.23 severe intrinsic esophageal stenosis, TTS dilator; small hiatal hernia; PEG placed, externally removable 20F Bard. ? EGD 04.01.23 severe esophageal stenosis, TTS dilator; PEG removed and PEJ placed, EndoVive TTP PEG-J 12F placed with distal tip clipped to bowel wall. Contact 04.08.23 requesting medication to help dry secretions. Hyoscyamine. GI outpatient: ? EGD 04.16.23 intrinsic esophageal stenosis, TTS dilator with moderate improvement; WallFlex [id number] covered stent placed at 30cm from incisors. OV 09.30.23 reports intermittent constipation is an issue for which she uses MiraLAX. continues to be concerned about saliva production. Reports she has been able to gain weight an is now 145lbs Contact 11.26.23 Pt's called in to say that pt's swallowing is good; still having phlegm, but is better than before. OV 5. Pt reports that she continues to struggle with the amount of phlegm that she is producing. Pt reports vomiting in the evening; thinks it is correlated to what she is eating, but is unsure of specific food triggers. Pt reports that vomit is brown in color; usually will happen a few nights in a row and then will have a few nights without vomiting. Pt continues with Hyoscyamine and Omeprazole. Neurology established for management of weakness, polyneuropathy, secondary parkinsonism, gastroparesis, mild cognitive impairment. 07.16.23 recommended iron transfusion and start of VitD3. Neurologist feels that she has had multiple ?mini-strokes?. ROS Const Constitutional: No fatigue, fever(s) or weight change ENT ENT: No difficulty swallowing Gastro GI: Positive for vomiting; No abdominal pain, belching, bloating, change in bowel habits, change in stool character, coffee ground emesis, constipation, cramping, diarrhea, heartburn, difficulty swallowing, feeling full early, excessive flatus, incontinent of stools, Vomiting blood/hematemesis, Blood in stool, loose stools, Black,tarry stools, nausea/dyspepsia, pain with swallowing or other Musc Musculoskeletal: Positive for stiffness and Arthritis; No joint pain Skin Skin: No yellowing of the eye or itchy eyes Neuro Neurology: Positive for Increased tone in limbs Psych Psychiatric: No anxiety and No depression Endo Endocrine: No fatigue or weight change Aller/Imm Allergy/Immunologic: No itchy eyes Ranjit/Lymp Hematologic/Lymphatic: Positive for easy bruising; No easy bleeding Exam Const General: cooperative, comfortable and no acute distress Orientation: alert, awake and oriented x3 Assessment and Plan Assessment and Plan (1) Esophageal stricture: Status: Resolved Plan: Benign esophageal stricture status post dilation with Botox injection and esophageal stent placement. She is able to tolerate liquid and soft foods now. She is actually doing very well and is gained 5 pounds. We will continue current recommendations regarding introduction of food orally. We will stop her misoprolol Stol and continue PPI therapy. (2) Gastroparesis: Status: Chronic Plan: She is tolerating G-tube feedings very well. We discussed possibly removing the G-tube, however I think she needs it due to possible secondary parkinsonism from her medications that is likely also causing gastroparesis. Repeat UGI with SBFT and Gastri Emptying Study. We will schedule her for a G-tube replacement to make to. Will also evaluate her esophageal stent.I have examined the patient and the H&P has been reviewed. There are no clinical changes since date of exam.
[2024-04-12 14:43] VITALS: BP 111/78; BP 129/69; PULSE 65; RESP 16; TEMP 36.4; O2SAT 95
[2024-04-12 14:45] VITALS: BP 101/64; BP 111/78; PULSE 68; RESP 18; O2SAT 98
[2024-04-12 14:50] VITALS: BP 111/78; BP 94/46; PULSE 71; RESP 16; O2SAT 98
[2024-04-12 14:54] VITALS: BP 109/86; BP 111/78; PULSE 80; RESP 18; TEMP 36.4; O2SAT 99
--- NOTE | 2024-04-12 15:46 | OP.EGD_ITS ---
Patient Name: Fior Escamilla Procedure Date: 04/12/2024 2:02 PM Date of : 1950 Age: 73 Procedure: Upper GI endoscopy Indications: Dysphagia Providers: DO Brittani Keene MD: Jay Kincaid Medicines: Monitored Anesthesia Care Patient Profile: This is a 73 year old female. Refer to note in patient chart for documentation of history and physical. Refer to note in patient chart for documentation of history and physical. Patient has symptoms of chronic dysphagia. Complications: No immediate complications. Procedure: Pre-Anesthesia Assessment: - Prior to the procedure, a History and Physical was performed, and patient medications and allergies were reviewed. The patient is competent. The risks and benefits of the procedure and the sedation options and risks were discussed with the patient. All questions were answered and informed consent was obtained. Patient identification and proposed procedure were verified by the physician in the pre-procedure area. Mental Status Examination: alert and oriented. Airway Examination: normal oropharyngeal airway and neck mobility. Respiratory Examination: clear to auscultation. CV Examination: normal. Prophylactic Antibiotics: The patient does not require prophylactic antibiotics. Prior Anticoagulants: The patient has taken no anticoagulant or antiplatelet agents. ASA Grade Assessment: II - A patient with mild systemic disease. After reviewing the risks and benefits, the patient was deemed in satisfactory condition to undergo the procedure. The anesthesia plan was to use monitored anesthesia care (MAC). Immediately prior to administration of medications, the patient was re-assessed for adequacy to receive sedatives. The heart rate, respiratory rate, oxygen saturations, blood pressure, adequacy of pulmonary ventilation, and response to care were monitored throughout the procedure. The physical status of the patient was re-assessed after the procedure. After obtaining informed consent, the endoscope was passed under direct vision. Throughout the procedure, the patient's blood pressure, pulse, and oxygen saturations were monitored continuously. The Endoscope was introduced through the mouth, and advanced to the second part of duodenum. The upper GI endoscopy was accomplished without difficulty. The patient tolerated the procedure well. Scope In: 2:15:39 PM Scope Out: 2:35:30 PM Total Procedure Duration Time 0 hours 19 minutes 51 seconds Findings: One benign-appearing, intrinsic severe (stenosis; an endoscope cannot pass) stenosis was found 34 to 39 cm from the incisors. This stenosis measured 4 mm (inner diameter) x 6 cm (in length). The stenosis was traversed. A guidewire was placed and the scope was withdrawn. Dilation was performed with a Savary dilator with no resistance at 45 Fr. The dilation site was examined and showed moderate mucosal disruption. Estimated blood loss was minimal. An esophageal stent was found in the lower third of the esophagus. A large, polypoid, non-circumferential mass with no bleeding and no stigmata of recent bleeding was found in the gastric fundus. Biopsies were taken with a cold forceps for histology. Verification of patient identification for the specimen was done. Estimated blood loss was minimal. There was evidence of an eroding gastrostomy tube present on the greater curvature of the stomach. The PEG required removal because it had been in place for an extended length of time. The PEG was cut externally, grasped, and removed with the scope. Removal was easily accomplished. Placement of an externally removable PEG with no T-fasteners was successfully completed. The external bumper was at the 4.0 cm marking on the tube. Estimated blood loss was minimal. The duodenal bulb was normal. Impression: - Benign-appearing esophageal stenosis. Dilated. - Pre-existing esophageal stent. - Rule out malignancy, gastric tumor in the gastric fundus. Biopsied. - Eroding gastrostomy tube present. - Normal duodenal bulb. - The PEG was cut externally, grasped, and removed with the scope because it had been in place for an extended length of time. - An externally removable PEG placement was successfully completed. Recommendation: - Discharge patient to home. - Resume previous diet. - Continue present medications. - Await pathology results. Procedure Code(s): --- Professional --- 31926, Esophagogastroduodenoscopy, flexible, transoral; with directed placement of percutaneous gastrostomy tube 77785, 59, Esophagogastroduodenoscopy, flexible, transoral; with removal of foreign body(s) 72795, Esophagogastroduodenoscopy, flexible, transoral; with insertion of guide wire followed by passage of dilator(s) through esophagus over guide wire 71122, 59,51, Esophagogastroduodenoscopy, flexible, transoral; with biopsy, single or multiple CPT copyright 2021 [employer]. All rights reserved. The codes documented in this report are preliminary and upon high speed warper tender review may be revised to meet current compliance requirements. Francis Verma DO 04/12/2024 3:45:23 PM This report has been signed electronically. Number of Addenda: 0 Note Initiated On: 04/12/2024 2:02 PM
--- NOTE | 2024-04-12 15:46 | OP.CCLET_ITS ---
04/12/2024 Jay Kincaid Re : Upper GI endoscopy procedure for Fior Escamilla Dear Codi This procedure was performed on Friday, April 12, 2024. My impressions and recommendations are as follows: Impressions : - Benign-appearing esophageal stenosis. Dilated. - Pre-existing esophageal stent. - Rule out malignancy, gastric tumor in the gastric fundus. Biopsied. - Eroding gastrostomy tube present. - Normal duodenal bulb. - The PEG was cut externally, grasped, and removed with the scope because it had been in place for an extended length of time. - An externally removable PEG placement was successfully completed. Recommendations : - Discharge patient to home. - Resume previous diet. - Continue present medications. - Await pathology results. My findings are described in the full procedure note, which is enclosed. If I can be of further assistance, please feel free to contact me at . Sincerely, Francis Verma, 04/12/2024 3:45:23 PM This report has been signed electronically.
[2024-04-12 15:56] VITALS: BP 111/78
== END 2024-04-12 15:56 | disposition home or self-care (01) ==
LOC: EN 11:58 → AC 12:00
PROVIDERS: PCP Nurse Practitioner Family; Referring Provider Nurse Practitioner Family; Visit Provider Internal Medicine Gastroenterology
PROC: 0DJ08ZZ Inspection of Upper Intestinal Tract, Via Natural or Artificial Opening Endoscopic (ICD-10-PCS; CPT 43235; principal; 2024-04-12 12:55)
DX: K22.2 Esophageal obstruction (principal); F02.80 Dementia in other diseases classified elsewhere, unspecified severity, without behavioral disturbance, psychotic disturbance, mood disturbance, and anxiety; N18.32 Chronic kidney disease, stage 3b; K31.84 Gastroparesis; K25.9 Gastric ulcer, unspecified as acute or chronic, without hemorrhage or perforation; K29.50 Unspecified chronic gastritis without bleeding; Z79.899 Other long term (current) drug therapy; K21.9 Gastro-esophageal reflux disease without esophagitis; E78.5 Hyperlipidemia, unspecified
CPT/HCPCS: 43248; 43246; 43239; 88305; 88312; 88341; 88342; J7120; J2405

== ENCOUNTER 2024-05-14 10:38 | Outpatient (RCR) | payer MEDICARE, SELFPAY ==
[2024-01-08] VITALS: BMI 20.4
[2024-05-14 11:17] LABS: Ionized Calcium 5.62 mg/dL (4.36-5.20)
[2024-05-14 11:27] LABS: ALB/GLOB Ratio 0.9 RATIO (0.9-2.4); AST(SGOT) 17 U/L (15-37); Alanine Aminotransfer ALT/SGPT 29 U/L (13-56); Albumin, Serum 3.4 g/dL (3.2-5.0); Alkaline Phosphatase 96 U/L (45-117); Anion Gap 5 (5-15); BUN 69 mg/dL (7-18); BUN/Creat Ratio 29.5 RATIO (10-20); Calcium,Total 11.1 mg/dL (8.5-10.1); Chloride 103 mmol/L (98-107); Creatinine, Serum 2.34 mg/dL (0.55-1.02); EST Glomerular Filtration Rate 22 mL/min (>60); Est Glom Filt Rate - Afr Amer 26 mL/min (>60); Globulin 3.9 g/dL (2.2-4.2); Glucose 101 mg/dL (74-106); Potassium 4.7 mmol/L (3.5-5.1); Protein, Total 7.3 g/dL (6.4-8.2); Sodium Level 139 mmol/L (136-145)
== END 2024-06-08 18:00 | disposition home or self-care (01) ==
LOC: LAB 10:38
PROVIDERS: Internal Medicine Endocrinology, Diabetes & Metabolism; Family Provider Nurse Practitioner Family; PCP Nurse Practitioner Family; Referring Provider Nurse Practitioner Family; Visit Provider Nurse Practitioner Family
DX: N18.4 Chronic kidney disease, stage 4 (severe); E05.90 Thyrotoxicosis, unspecified without thyrotoxic crisis or storm; E21.3 Hyperparathyroidism, unspecified; M81.0 Age-related osteoporosis without current pathological fracture; E55.9 Vitamin D deficiency, unspecified
CPT/HCPCS: 36415; 80053; 82330

== ENCOUNTER 2024-06-16 13:59 | Outpatient (RCR) | payer MEDICARE, SELFPAY ==
[2024-06-08 22:25] VITALS: BMI 20.4
[2024-06-16 15:05] LABS: Ionized Calcium Order ORDER TUBE
[2024-06-16 15:46] LABS: ALB/GLOB Ratio 0.8 RATIO (0.9-2.4); AST(SGOT) 14 U/L (15-37); Alanine Aminotransfer ALT/SGPT 13 U/L (13-56); Alkaline Phosphatase 80 U/L (45-117); Anion Gap 6 (5-15); BUN 50 mg/dL (7-18); BUN/Creat Ratio 19.9 RATIO (10-20); Calcium,Total 11.9 mg/dL (8.5-10.1); Chloride 100 mmol/L (98-107); Creatinine, Serum 2.51 mg/dL (0.55-1.02); EST Glomerular Filtration Rate 20 mL/min (>60); Est Glom Filt Rate - Afr Amer 24 mL/min (>60); Glucose 91 mg/dL (74-106); Potassium 4.5 mmol/L (3.5-5.1); Sodium Level 133 mmol/L (136-145)
[2024-06-16 16:12] LABS: Ionized Calcium 6.01 mg/dL (4.36-5.20)
== END 2024-06-16 18:00 | disposition home or self-care (01) ==
LOC: LAB 13:59
PROVIDERS: Family Provider Nurse Practitioner Family; PCP Nurse Practitioner Family; Referring Provider Nurse Practitioner Family; Visit Provider Nurse Practitioner Family
DX: N17.9 Acute kidney failure, unspecified (principal); N18.4 Chronic kidney disease, stage 4 (severe); E05.90 Thyrotoxicosis, unspecified without thyrotoxic crisis or storm; E21.3 Hyperparathyroidism, unspecified; M81.0 Age-related osteoporosis without current pathological fracture; E55.9 Vitamin D deficiency, unspecified
CPT/HCPCS: 36415; 80053; 82330

== ENCOUNTER 2024-07-03 20:27 | Inpatient (IN) | payer MEDICARE, SELFPAY ==
[2024-07-03 20:29] VITALS: BP 74/54; PULSE 91; RESP 16; TEMP 36.3; O2SAT 87; BMI 24.5
[2024-07-03 20:47] VITALS: BP 80/50; O2SAT 93
--- NOTE | 2024-07-03 21:01 | EKG12_ITS ---
Test Reason : DYSRHYTHMIA Blood Pressure : / mmHG Vent. Rate : 081 BPM Atrial Rate : 081 BPM P-R Int : 178 ms QRS Dur : 096 ms QT Int : 358 ms P-R-T Axes : 065 056 071 degrees QTc Int : 415 ms Normal sinus rhythm Normal ECG Confirmed by Tao Anthony ([id number]), order editor SHANE SHAW ([id number]) on 07/04/2024 7:38:23 AM Referred By: Confirmed By:Tao Anthony
--- NOTE | 2024-07-03 21:20 | RAD_ITS ---
STUDY: XR Chest 1 View 07/03/2024 9:15 PM REASON FOR EXAM: Female, 74 years old. hypotension COMPARISON: 02/18/2024 TECHNIQUE: XR Chest 1 View FINDINGS: There is no demonstrated pleural abnormality. Esophageal stent in place. Enlarged heart size. Normal mediastinum. Normal tarik. Prominent appearing increased interstitial lung markings. Normal visualized pulmonary arteries. There is atherosclerotic calcification of the aortic arch with tortuosity. There are diffuse degenerative changes of the visualized thoracic spine. There is degenerative osteoarthritis of the bilateral shoulders. Gaseous distention of the stomach and colon. RAD/Chest 1 View (Portable) IMPRESSION: There are no acute findings. Electronically Signed: Osvaldo Michael MD at 21:35 EDT ,
[2024-07-03 21:21] LABS: Absolute Lymphocyte Count 1.17 X10^3/uL (0.83-4.51); Basophil# 0.05 X10^3/uL; Basophil% 0.2 % (0-1); Eosinophil# 0.01 X10^3/uL; Hematocrit 28.2 % (37-47); Hemoglobin 8.6 g/dL (12.0-15.0); Lymphocyte # 1.17 X10^3/ul (0.83-4.51); Lymphocyte % 5.6 % (19-41); Mean Corp Hgb Conc 30.5 g/dL (32-36); Mean Corpuscular Hgb 30.1 pg (27.0-32.0); Mean Corpuscular Volume 98.6 fL (81-99); Mean Platelet Vol. 9.9 fl (6.2-12.0); Monocyte# 1.48 X10^3/uL; Monocyte% 7.1 % (0-10); NRBC Flagged by Analyzer 0 % (0-5); Neutrophil # 17.99 X10^3/uL (2.7-7.7); Neutrophil % 86.4 % (47-70); Platelet Count 333 K/mm3 (150-450); RBC Distribution Width CV 14.5 % (11.6-14.6); RBC Distribution Width SD 52.2 fl (35.1-43.9); Red Blood Count 2.86 M/mm3 (4.2-5.4); White Blood Count 20.9 K/mm3 (4.4-11.0)
[2024-07-03 21:28] VITALS: BP 77/53; PULSE 80; RESP 16; O2SAT 94
[2024-07-03 21:30] LABS: Prothrombin Time (Protime)PT. 12.8 SECONDS (11.7-14.9)
[2024-07-03 21:31] LABS: Partial Thromboplast Time 25.9 Seconds (24.1-36.2)
[2024-07-03] MEDS: 0.9% Normal Saline (1000mL) 1,000 ML 1000 ML IV (21:32)
[2024-07-03 22:00] VITALS: BP 104/51; PULSE 76; RESP 17; O2SAT 92
[2024-07-03 22:01] LABS: AST(SGOT) 35 U/L (15-37); Alanine Aminotransfer ALT/SGPT 42 U/L (13-56); Albumin, Serum 3.1 g/dL (3.2-5.0); Alkaline Phosphatase 135 U/L (45-117); Anion Gap 10 (5-15); BUN 106 mg/dL (7-18); BUN/Creat Ratio 25.8 RATIO (10-20); Bilirubin, Direct 0.27 mg/dL (0.00-0.30); Calcium,Total 10.4 mg/dL (8.5-10.1); Chloride 102 mmol/L (98-107); Creatinine, Serum 4.11 mg/dL (0.55-1.02); EST Glomerular Filtration Rate 11 mL/min (>60); Est Glom Filt Rate - Afr Amer 14 mL/min (>60); Estimated Creatinine Clearance 10.21 ml/min; Globulin 3.7 g/dL (2.2-4.2); Glucose 106 mg/dL (74-106); Lipase 30 U/L (13-75); Potassium 4.7 mmol/L (3.5-5.1); Protein, Total 6.8 g/dL (6.4-8.2); Sodium Level 135 mmol/L (136-145); Troponin-I HS 31 pg/mL (3.0-54.0)
[2024-07-03 22:09] LABS: Lactic Acid 0.7 mmol/L (0.4-1.9)
[2024-07-03 22:16] LABS: Bacteria 0 SEEN /hpf (None Seen); Mucous, Urine 0 SEEN /hpf (<or=2+); Red Blood Cells-Urine 0 SEEN /hpf (0-5); Squamous Epithelial Cells - UA 0 SEEN /hpf (5-10)
[2024-07-03 22:24] LABS: Color, Urine Yellow (Yellow); Glucose, Dipstick Normal (Normal); Ketone-Dipstick Negative (Negative); Leukocyte Esterase-Dipstick 100 /ul (Negative); Nitrite-Dipstick Negative (Negative); Occult Blood-Urine Negative /ul (Negative); Protein-Dipstick 15 mg/dl (Negative); Urine Bilirubin Dipstick Negative (Negative); Urine Clarity Clear (Clear); Urine Urobilinogen Normal (Normal)
[2024-07-03 22:34] LABS: Renal Epithelial Cells 0-5 SEEN /hpf (0-5); White Blood Cells 0-5 SEEN /hpf (0-5)
--- NOTE | 2024-07-03 22:37 | CT_ITS ---
EXAM: CT Abdomen And Pelvis W/O Contrast Injection HISTORY: abdominal pain HERE DUE TO SLIPPING OUT OF CHAIR AT HOME, HYPOTENSION IN ROUTE, FEEDING TUBE HX TECHNIQUE: Routine protocol CT abdomen and pelvis. IV Contrast: None.. Oral contrast: None. RADIATION DOSAGE (If Supplied By Facility): CTDIvol = ( 6.83 ) mGy, DLP = ( 331.04 ) mGycm Individualized dose optimization techniques were used for this CT. COMPARISON: None. LIMITATIONS: None. FINDINGS: LOWER CHEST: Consolidation right lower lobe, with more patchy groundglass opacities and reticular nodular opacities in the right lower lobe and right middle lobe, with minimal in the left lower lobe. Dependent atelectasis also left lower lobe. Presumed esophageal stent partially included. LIVER: Grossly unremarkable. GALLBLADDER AND BILIARY TREE: Grossly unremarkable. PANCREAS: Grossly unremarkable. SPLEEN: Grossly unremarkable. ADRENAL GLANDS: Grossly unremarkable. KIDNEYS AND URETERS: Several tiny calculi in both kidneys. No hydronephrosis. Small cyst in both kidneys. PERITONEUM: No free air. No free fluid. BOWEL: G-tube tip in the stomach. The stomach is mildly distended with fluid. The small bowel is not dilated. There is a large amount of stool distending the rectosigmoid colon, moderate stool throughout the remainder of the colon. No bowel obstruction. APPENDIX: Not identified. VESSELS: Abdominal aorta is normal caliber. REPRODUCTIVE ORGANS: Grossly unremarkable URINARY BLADDER: Moderately distended. Compressed and displaced anterior to the left by the stool distended rectosigmoid colon. ABDOMINAL WALL: Unremarkable. BONES: No acute abnormalities. Degenerative changes lumbar spine and scoliosis. CT/Abdomen/Pelvis without Cont IMPRESSION: 1. G-tube in place. 2. Rectosigmoid colon distended with large amount of stool. Correlate for fecal impaction. No bowel obstruction. 3. Bladder distended and displaced by the stool distended rectum. Possibly a component of bladder outlet obstruction. 4. Bilateral nephrolithiasis without hydronephrosis. 5. Multifocal airspace disease in the lower lungs likely pneumonia. 6. Presumed esophageal stent partially included. Electronically Signed: Cece Oviedo MD at 23:55 EDT ,
[2024-07-03] MEDS: 0.9% Normal Saline (1000mL) 1,000 ML 999 ML IV (22:45)
[2024-07-03 23:00] VITALS: BP 99/71; PULSE 80; RESP 15; O2SAT 96
[2024-07-03 23:08] LABS: Hematocrit 21.6 % (37-47); Hemoglobin 6.6 g/dL (12.0-15.0)
--- NOTE | 2024-07-03 23:32 | EX.ED.DYSGE1 ---
HPI History of Present Illness Chief Complaint: Weakness Informant: patient, spouse/S.O. and friend Narrative Narrative: 74-year-old female arriving to the emergency department with generalized weakness and hypotension. Family states that she has had several episodes where she is got profoundly weak and lowered herself to the ground over the past 2 days. Today she was unable to get out of the chair. Patient has a feeding tube due to esophageal stents and difficulty maintaining nutrition. Family notes that she has had problems with sodium levels in the past. She notes that she takes iron but her stool has definitely been black over the past couple weeks. She notes that she has not had a very solid bowel movement recently or a fulfilling bowel movement. Patient denies any abdominal pain. She denies any vomiting or nausea. Family notes that she appears significantly pale compared to normal. She has had a feeding tube for about [address] Verma from gastroenterology placed this. [facility] Medical History History of Clostridium difficile infection Arthritis History of renal disease History of echocardiogram History of Mohs micrographic surgery for skin cancer Acute uremia Anemia History of jejunostomy tube placement Hypertension Iron deficiency anemia History of gastrostomy tube placement Acute renal insufficiency Anemia, unspecified Stenosis of esophagus Erosive esophagitis UTI (urinary tract infection) Gram-negative bacteremia Severe malnutrition Severe malnutrition Severe dehydration Wears glasses Post-menopausal Bipolar disorder Diabetes insipidus Thyroid disease Bladder disease Back pain Dietary restriction History of hiatal hernia Gastric reflux Former smoker Generalized weakness Unsteady gait History of edema Gastroparesis Nondiabetic gastroparesis Dysphagia Tardive dyskinesia [place] History of herpes zoster Hypertension Delirium due to multiple etiologies Hypercalcemia CITLALY (acute kidney injury) Hypernatremia Secondary hyperparathyroidism of renal origin Bipolar disorder with moderate depression Pulmonary emboli Anemia Anxiety Difficulty chewing Bipolar disorder Home Medications ?Medication ?Instructions ?Recorded ?Last Taken ?Type methimazole 5 mg tablet 5 mg PO SUMOWEFR Thyroid 10/04/20 01/14/23 History denosumab 60 mg/mL subcutaneous 60 mg subcut .Q6MO osteoporosis 09/05/22 08/27/22 History syringe (Prolia) oxybutynin chloride 15 mg 15 mg PO DAILY Overactive bladder 09/05/22 01/14/23 History tablet,extended release 24 hr polyethylene glycol 3350 17 17 g PO DAILY PRN constipation 09/05/22 09/05/22 History gram/dose oral powder (Miralax) lamotrigine 100 mg tablet 200 mg PO DAILY Bipolar Disorder 03/19/23 04/12/24 History losartan 25 mg tablet 25 mg PO DAILY BP 03/19/23 04/12/24 History cinacalcet 30 mg tablet 60 mg (2 x 30 mg) PO BID 30 days 04/08/23 Unknown Rx #120 tabs memantine 10 mg tablet 10 mg PO DAILY Check with primary 04/20/23 Unknown History doctor lorazepam 2 mg tablet 2 mg PO 4X/DAY 06/11/23 Unknown History cholecalciferol (vitamin D3) 50 100 mcg (2 x 50 mcg (2,000 unit)) 12/15/23 Unknown Rx mcg (2,000 unit) capsule PO DAILY #60 caps hyoscyamine sulfate 0.125 mg 0.125 mg PO BID PRN dyspepsia #14 03/29/24 Unknown Rx sublingual tablet tabs omeprazole 40 mg capsule,delayed 40 mg PO BID #120 caps 03/29/24 Unknown Rx release ondansetron HCl 4 mg tablet See Rx Instructions PO Q6H PRN 03/29/24 Unknown Rx nausea and vomiting #90 tabs estradiol 0.01% (0.1 mg/gram) 1 applic vaginal .3 TIMES WEEKLY 04/06/24 Unknown History vaginal cream ferrous sulfate 325 mg (65 mg 325 mg PO BID SUPPLEMENT 04/06/24 Unknown History iron) tablet scopolamine base 1 mg over 3 days 1 patch transdermal Q3D #10 ea 04/12/24 Unknown Rx transdermal patch lansoprazole 30 mg capsule,delayed 30 mg PO BID #60 caps 04/22/24 Unknown Rx release glycopyrrolate 2 mg tablet 2 mg PO BID-TID PRN secretions #60 06/21/24 Unknown Rx tabs metoclopramide HCl 5 mg tablet 5 mg PO QAC #90 tabs 06/21/24 Unknown Rx nutritional supplements 0.06 948 ml feeding tube QHS 07/04/24 Unknown History gram-1.2 kcal/mL oral liquid (Osmolite 1.2 Mp) Allergy/AdvReac Type Severity Reaction Status Date / Time No Known Allergies Allergy Verified 07/03/24 20:34 Family History Father CVA (cerebral vascular accident) Sister CVA (cerebral vascular accident) Cancer Surgical History History of esophagogastroduodenoscopy (EGD) Hx of esophagogastroduodenoscopy Social History household members: spouse housing: house Smoking Status: Former smoker Tobacco: How many years used: 4 second hand exposure: Yes alcohol intake: never substance use type: does not use what type of physical activity do you participate in: other details: OT PT - [facility] [place] frequency: daily valentina/bahai: [employer] seatbelt use: always additional social history: Ambulates at baseline without assistive device ROS ROS ED ROS Narrative Generalized weakness Constitutional Constitutional ED: Denies chills, fever(s) or weight loss Eyes Eyes: Denies change in vision or diplopia ENT ENT ED: Denies ear pain, rhinorrhea or sore throat Cardiovascular Cardiovascular: Denies chest pain, orthopnea, palpitations or racing heartbeat Respiratory/Chest Respiratory/Chest: Denies cough, dyspnea or orthopnea Gastrointestinal Gastrointestinal: Reports constipation; Denies abdominal pain, diarrhea, nausea or vomiting Genitourinary Genitourinary ED: Denies dysuria, hematuria or urinary frequency Musculoskeletal Musculoskeletal: Denies arthralgias or myalgias Integumentary Reports other Details: Pallor ; Denies abscess or rash Neurologic Neurologic: Denies headache(s) or weakness Psychiatric Psychiatric: Denies anxiety, depression, suicidal ideation or suicidal thoughts Endocrine Endocrinology: Denies polydipsia, polyphagia or polyuria Allergic/Immunologic Allergic/Immunologic ED: Denies mouth swelling, tongue swelling or urticaria EXAM Physical Exam Narrative Exam Narrative: Patient is laying flat in the bed. She appears very pale. She has pale conjunctiva pale palms and lips appear pale. She is awake alert and oriented and talking to me. Const Vital Signs: 07/03/24 20:29 07/03/24 20:29 07/03/24 20:47 Temperature 97.3 F L Temperature Source Temporal Pulse Rate 91 Respiratory Rate 16 Respiratory Effort Normal Non-Labored Respiratory Pattern Normal Blood Pressure 74/54 L 80/50 L Blood Pressure Mean 60 60 Blood Pressure Source Blood Pressure Position Blood Pressure Location Pulse Ox 87 93 Oxygen Delivery Method Room Air Nasal Cannula Oxygen Flow Rate (L/min) 2 07/03/24 21:28 07/03/24 22:00 07/03/24 23:00 Temperature Temperature Source Pulse Rate 80 76 80 Respiratory Rate 16 17 15 Respiratory Effort Respiratory Pattern Blood Pressure 77/53 L 104/51 L 99/71 Blood Pressure Mean 61 68 80 Blood Pressure Source Blood Pressure Position Blood Pressure Location Pulse Ox 94 92 96 Oxygen Delivery Method Room Air Nasal Cannula Nasal Cannula Oxygen Flow Rate (L/min) 3 3 07/04/24 00:06 Temperature 98.7 F Temperature Source Oral Pulse Rate 79 Respiratory Rate 19 H Respiratory Effort Respiratory Pattern Blood Pressure 95/57 L Blood Pressure Mean 69 Blood Pressure Source Monitor Blood Pressure Position Supine Blood Pressure Location Left Arm Pulse Ox 97 Oxygen Delivery Method Nasal Cannula Oxygen Flow Rate (L/min) 3 Positive well nourished and well developed General Appearance ED: well developed and pallor HEENT Reports normocephalic, head/scalp atraumatic and moist mucous membranes Eyes PERRL and EOMs intact bilaterally Neck no lymphadenopathy, supple and no JVD Resp normal respiratory effort and clear to auscultation bilaterally Cardio regular rate, regular rhythm and no murmurs GI normal to inspection, nondistended, normoactive bowel sounds and non-tender Inspection: Negative for abdominal distention Palpation: soft; Negative for tender, guarding or rebound tenderness present Back/Spine no CVA tenderness and normal ROM Extremity Extremity Narrative: There are bruising to the bilateral knees. No obvious joint effusion. No palpable bony deformities. Ligaments appear stable. General Extremety ED: Negative for edema General Extremity: Negative for edema Neuro oriented x3 and CN's II-XII intact bilaterally Sensorium / Orientation: alert Motor Exam: strength 5/5 throughout Psych mental status grossly normal Mood & Affect: Negative for depressed or tearful Skin General Skin Exam: pallor MDM MDM MDM Narrative Medical decision making narrative: Differential diagnosis includes anemia upper GI bleed electrolyte abnormalities dehydration hypovolemic shock acute coronary syndrome sepsis White count 20.9 with a hemoglobin of 8.6 platelet count of 333. INR 1.0 PTT 25.6 sodium level is 135 potassium 4.7 BUN of 106 with a creatinine of 4.11 lactic acid 0.7 troponin is 31 lipase is 30 alkaline phosphatase 135 urinalysis is negative she was typed and screened and is be positive. My independent interpretation of the chest x-ray is no acute process. Patient received IV fluids and blood pressure is improving. I repeated an H&H after 2 L and is down to 6.6 so I typed and crossed her for 2 L. Her stool is black. It however is testing guaiac negative. CT abdomen pelvis was obtained which demonstrates a large fecal material in the rectum sigmoid colon. Soapsuds enema was ordered. Also and had placed her on a Protonix drip and bolus. Concerned that she probably has upper GI bleeding but perhaps were not seen it in the lower stool because of the retained feces that is measuring about 10 cm in width. There is possible bladder outlet obstruction so Tinoco catheter will be placed. This could certainly contribute to her acute decline in renal function. Possible pneumonia on the CT. I discussed this with the hospitalist. Shepherd repeat her CBC. She is not coughing or having shortness of breath or fever. At this point we are going to hold antibiotics until the hospitalist evaluation. History & Record Review Discussion w/independent historian: Patient Additional record(s) reviewed:: Prior inpatient record, Prior ED visit and Prior labs Lab Data Attestation: I reviewed the patient's lab results. Labs: Laboratory Results - last 24 hr 07/03/24 07/03/24 07/03/24 20:44 21:30 22:12 WBC 20.9 H RBC 2.86 L Hgb 8.6 L Hct 28.2 L MCV 98.6 MCH 30.1 MCHC 30.5 L RDW Std Deviation 52.2 H RDW Coeff of Lee 14.5 Plt Count 333 MPV 9.9 Immature Gran % (Auto) 0.700 Neut % (Auto) 86.4 H Lymph % (Auto) 5.6 L [place] % (Auto) 7.1 Eos % (Auto) 0.0 Baso % (Auto) 0.2 Absolute Neuts (auto) 18.0 H Absolute Lymphs (auto) 1.17 Nucleated RBC % 0 PT 12.8 INR 1.0 APTT 25.9 Sodium 135 L Potassium 4.7 Chloride 102 Carbon Dioxide 23.0 Anion Gap 10 BUN 106 H* Creatinine 4.11 H Estim Creat Clear Calc 10.21 Est GFR (MDRD) Af Amer 14 L Est GFR (MDRD) Non-Af 11 L BUN/Creatinine Ratio 25.8 H Glucose 106 Lactic Acid 0.7 Calcium 10.4 H Total Bilirubin 0.50 Direct Bilirubin 0.27 AST 35 ALT 42 Alkaline Phosphatase 135 H Troponin I High Sens 31 Total Protein 6.8 Albumin 3.1 L Globulin 3.7 Lipase 30 Urine Color Yellow Urine Clarity Clear Urine pH 6.0 Ur Specific [place] 1.010 Urine Protein 15 H Urine Glucose (UA) Normal Urine Ketones Negative Urine Occult Blood Negative Urine Nitrite Negative Urine Bilirubin Negative Urine Urobilinogen Normal Ur Leukocyte Esterase 100 H Urine RBC 0 SEEN Urine WBC 0-5 SEEN Ur Squamous Epith Cells 0 SEEN Ur Renal Epithelial Cell 0-5 SEEN Urine Bacteria 0 SEEN Urine Mucus 0 SEEN Blood Type B POSITIVE Antibody Screen NEGATIVE Crossmatch See Detail 07/03/24 22:52 WBC RBC Hgb 6.6 L Hct 21.6 L MCV MCH MCHC RDW Std Deviation RDW Coeff of Lee Plt Count MPV Immature Gran % (Auto) Neut % (Auto) Lymph % (Auto) [place] % (Auto) Eos % (Auto) Baso % (Auto) Absolute Neuts (auto) Absolute Lymphs (auto) Nucleated RBC % PT INR APTT Sodium Potassium Chloride Carbon Dioxide Anion Gap BUN Creatinine Estim Creat Clear Calc Est GFR (MDRD) Af Amer Est GFR (MDRD) Non-Af BUN/Creatinine Ratio Glucose Lactic Acid Calcium Total Bilirubin Direct Bilirubin AST ALT Alkaline Phosphatase Troponin I High Sens Total Protein Albumin Globulin Lipase Urine Color Urine Clarity Urine pH Ur Specific [place] Urine Protein Urine Glucose (UA) Urine Ketones Urine Occult Blood Urine Nitrite Urine Bilirubin Urine Urobilinogen Ur Leukocyte Esterase Urine RBC Urine WBC Ur Squamous Epith Cells Ur Renal Epithelial Cell Urine Bacteria Urine Mucus Blood Type Antibody Screen Crossmatch Radiography Diagnostic Testing: Clinical Impression(s) from Imaging Studies Chest X-Ray 07/03/24 21:20 IMPRESSION: There are no acute findings. Electronically Signed: Osvaldo Michael MD at 21:35 EDT , Abdomen/Pelvis CT 07/03/24 22:37 IMPRESSION: 1. G-tube in place. 2. Rectosigmoid colon distended with large amount of stool. Correlate for fecal impaction. No bowel obstruction. 3. Bladder distended and displaced by the stool distended rectum. Possibly a component of bladder outlet obstruction. 4. Bilateral nephrolithiasis without hydronephrosis. 5. Multifocal airspace disease in the lower lungs likely pneumonia. 6. Presumed esophageal stent partially included. Electronically Signed: Cece Oviedo MD at 23:55 EDT , EKG Initial EKG: Attestation: I personally reviewed and interpreted this EKG as follows: Comments: Normal sinus rhythm ventricular rate of 81 bpm Management Discussion w/another healthcare provider: Hospitalist Critical Care Time Critical Care Time: Yes Critical care time (excluding procedures): 30-74 minutes (35 min), Including time spent:, Discussing w/Patient &/or Family/Coating Machine Feeder, Discussing w/Consultants, Arranging Admission or Transfer and Performing Direct Patient Care at Bedside Discharge Plan Dx/Rx/DC Orders Clinical Impression: Acute dehydration, Alzheimer disease, Leukocytosis, Anemia requiring transfusions, Acute renal failure, Acute hypotension, Fecal impaction, Bladder outlet obstruction Disposition Disposition: Acute Care Hospital [facility]
[2024-07-03] MEDS: Pantoprazole Sodium 80 MG in 0.9% Normal Saline (50mL Bag) 15 ML 420 MG IV BOLUS (23:51)
[2024-07-04] VITALS (37 sets, daily range): BP systolic 82–136; BP diastolic 49–93; PULSE 71–84; RESP 13–23; TEMP 36.1–37.1; O2SAT 94–100; BMI 21.4; BMI 22.4
--- NOTE | 2024-07-04 | ESO_PTH ---
PATIENT: SIMONA HERNANDEZ LOC: [facility] U#:[id number] AGE/SX: 74/F ROOM: [facility] RE07/04/[address]: Dr. Roman Knight DO : 1950 BED: 1 DIS: 07/10/2024 SPEC #: [id number] RECD: 07/05/24 07:10 STATUS: NATALYA REQ #: [id number] HOLLIE: 07/04/24 00:[address]: Francis Verma DEPT: SURGICAL PATHOLOGY RECD BY: Elvis Krishnamurthy ENTERED: 07/05/24 10:00 SP TYPE: ESOPH BX OTHR DR: MD Dr. Darell Weaver MD Dr. Derek Brown, DO Dr. David P Myers, MD Dr. Edward Matheis, MD Dr. Gautam Baskaran, MD Dr. Yordanos Habtegebriel, MD Dr. Hemant Dand, MD Dr. Jose Ochoa, MD Dr. Kimber Foust, MD Dr. Kathryn Lee, DO Dr. Lamia Aljundi, MD Dr. Nana Yaa Koram, MD Dr. Pritam Ghosh, MD Dr. Pavan Irukulla, MD Dr. Saad Farooqi, MD Dr. Vikram Anand, MD Dr. William Haden, MD Richard Dennis Tompkins, STONECUTTER APPRENTICE HAND-C Tissues: Esophagus, NOS Procedures: Special Stain Group I Surgery Specimen Level IV GMS Stain (control) Alcian Blue/PAS (control) Comments: @ Ordering doctor for SUIV edited from to @ by PRADEEP at 07/05/24 1030 @ Submitting doctor edited from to @ domenico FERNÁNDEZ at 07/05/24 1030 HEADER OPERATION: EGD, balloon dilation, esophageal stent removal PRE-OP DIAGNOSIS: Weakness TISSUE SUBMITTED: Distal esophagus stricture biopsy MICROSCOPIC DIAGNOSIS Distal esophagus stricture, biopsy: Gastroesophageal junction mucosa with mild chronic inflammation. Fibrinopurulent material. No evidence of goblet cell metaplasia. Occasional fungal organisms consistent with Jessi species. See comment. JAY/ 07/06/2024 COMMENT Alcian blue/PAS stain with matched control supports the above diagnosis. GMS stain with matched control was used in the evaluation of this case. MICROSCOPIC DESCRIPTION Slides are reviewed. GROSS DESCRIPTION Received in fixative is one container labeled with the patient's name and designated Distal esophagus stricture biopsy. The specimen consists of multiple irregular fragments of light regalado soft tissue that in aggregate measure 1.5 x 0.5 x 0.1 cm. The specimen is totally submitted in one cassette. 07/05/2024 TC:2 CPT:03080,65454,68646
[2024-07-04] MEDS: Pantoprazole Sodium 80 MG in 0.9% Normal Saline (100mL Bag) 80 ML 10 MG CONT INF ×3 (00:02→19:47)
[2024-07-04 00:32] LABS: Absolute Lymphocyte Count 1.26 X10^3/uL (0.83-4.51); Absolute Neutrophil Count 12.6 X10^3/uL (2.0-7.7); Basophil# 0.04 X10^3/uL; Basophil% 0.3 % (0-1); Eosinophil# 0.01 X10^3/uL; Eosinophils% 0.1 % (0-5); Hematocrit 22.8 % (37-47); Hemoglobin 6.8 g/dL (12.0-15.0); Lymphocyte # 1.26 X10^3/ul (0.83-4.51); Lymphocyte % 8.4 % (19-41); Mean Corp Hgb Conc 29.8 g/dL (32-36); Mean Corpuscular Hgb 30.2 pg (27.0-32.0); Mean Corpuscular Volume 101.3 fL (81-99); Mean Platelet Vol. 9.7 fl (6.2-12.0); Monocyte# 0.91 X10^3/uL; Monocyte% 6.1 % (0-10); NRBC Flagged by Analyzer 0 % (0-5); Neutrophil # 12.62 X10^3/uL (2.7-7.7); Neutrophil % 84.2 % (47-70); Platelet Count 216 K/mm3 (150-450); RBC Distribution Width CV 14.5 % (11.6-14.6); Red Blood Count 2.25 M/mm3 (4.2-5.4)
--- NOTE | 2024-07-04 00:49 | PCM.HP.STD ---
HPI - General General Date of Admission: 07/04/24 Date of Service: 07/04/24 Chief Complaint: Weakness HPI Narrative SIMONA HERNANDEZ, is a 74 F who presented to the emergency department at [facility] on the evening of 07/03/2020 for with a chief complaint of weakness. Family provided a lot of the history at the time of presentation and they were not there at the time of my evaluation so I am relying on urgency department physicians narrative and patient's limited capability to give me HPI. Evidently she had been having several episodes where she got profoundly weak and had lowered herself to the ground of the past 2 days. She has significant ecchymosis on bilateral knees. They were concerned that her sodium levels were problematic as she has had issues with her sodium in the past and acting somewhat similar. Family did note that her stools have been markedly black over the past couple weeks more so than baseline and she does take iron at baseline. She was not complaining of any abdominal pain, nausea, or vomiting. She evidently has had a chronic cough over the last 3 weeks. She has a feeding tube it has been there for at least a year and follows with Dr. Verma. 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 She had no bleeding noted to the upper GI tract at that time. Her PEG tube was noted to be eroded so it was exchanged at that time. Patient and family did report she has not had a very significant bowel movement in some time. She does have a history of chronic constipation. Vital signs on presentation showed a temperature of 97.3, heart rate 91, respiratory rate 16, blood pressure was 74/54 and pulse ox was 87% on room air. Oxygenation improved to 93% when she was placed on 2 L nasal cannula. By the time of admission she was 96% on 3 L. Blood pressure improved after fluid boluses and blood had been initiated to a pressure of 95/57. CBC on presentation showed a white count of 20.9, hemoglobin of 8.6, and a left shift was present with an 86.4 neutrophilia. After she was hydrated hemoglobin was repeated and found to be 6.6 this blood was ordered. There was high suspicion of GI bleed at the time of admission due to her dark stools thus the repeat in her hemoglobin. Interestingly, her stool guaiac was negative. Her chemistry panel showed mild hyponatremia the sodium 135, markedly elevated BUN/creatinine at 106 and 4.11 respectively (baseline between 2.1 and 2.4), mild hypercalcemia which she has chronic issues with and takes calcium at and normal liver functions. Her UA was not consistent with infection. Chest x-rays are unremarkable. CT of the abdomen pelvis was performed and showed G-tube in place with distention of the rectosigmoid colon and a large amount of stool suspicious of fecal impaction but no bowel obstruction, bladder distention and displaced due to stool, bilateral nephrolithiasis without hydronephrosis, multifocal airspace disease in the lower lungs and presumed esophageal stent with partial occlusion noted. In the emergency was given ceftriaxone and azithromycin, transfusion was initiated and she was given aggressive hydration with IV fluids. Tinoco was placed with over a liter of urine output immediately. [facility] Medical History History of Clostridium difficile infection Arthritis History of renal disease History of echocardiogram History of Mohs micrographic surgery for skin cancer Acute uremia Anemia History of jejunostomy tube placement Hypertension Iron deficiency anemia History of gastrostomy tube placement Acute renal insufficiency Anemia, unspecified Stenosis of esophagus Erosive esophagitis UTI (urinary tract infection) Gram-negative bacteremia Severe malnutrition Severe malnutrition Severe dehydration Wears glasses Post-menopausal Bipolar disorder Diabetes insipidus Thyroid disease Bladder disease Back pain Dietary restriction History of hiatal hernia Gastric reflux Former smoker Generalized weakness Unsteady gait History of edema Gastroparesis Nondiabetic gastroparesis Dysphagia [place]ard[place] dys[place]ia [place] History of herpes zoster Hypertension Delirium due to multiple etiologies Hypercalcemia CITLALY (acute kidney injury) Hypernatremia Secondary hyperparathyroidism of renal origin Bipolar disorder with moderate depression Pulmonary emboli Anemia Anxiety Difficulty chewing Bipolar disorder Home Medications ?Medication ?Instructions ?Recorded ?Last Taken ?Type methimazole 5 mg tablet 5 mg PO SUMOWEFR Thyroid 10/04/20 01/14/23 History denosumab 60 mg/mL subcutaneous 60 mg subcut .Q6MO osteoporosis 09/05/22 08/27/22 History syringe (Prolia) oxybutynin chloride 15 mg 15 mg PO DAILY Overactive bladder 09/05/22 01/14/23 History tablet,extended release 24 hr polyethylene glycol 3350 17 17 g PO DAILY PRN constipation 09/05/22 09/05/22 History gram/dose oral powder (Miralax) lamotrigine 100 mg tablet 200 mg PO DAILY Bipolar Disorder 03/19/23 04/12/24 History losartan 25 mg tablet 25 mg PO DAILY BP 03/19/23 04/12/24 History cinacalcet 30 mg tablet 60 mg (2 x 30 mg) PO BID 30 days 04/08/23 Unknown Rx #120 tabs memantine 10 mg tablet 10 mg PO DAILY Check with primary 04/20/23 Unknown History doctor lorazepam 2 mg tablet 2 mg PO 4X/DAY 06/11/23 Unknown History cholecalciferol (vitamin D3) 50 100 mcg (2 x 50 mcg (2,000 unit)) 12/15/23 Unknown Rx mcg (2,000 unit) capsule PO DAILY #60 caps hyoscyamine sulfate 0.125 mg 0.125 mg PO BID PRN dyspepsia #14 03/29/24 Unknown Rx sublingual tablet tabs omeprazole 40 mg capsule,delayed 40 mg PO BID #120 caps 03/29/24 Unknown Rx release ondansetron HCl 4 mg tablet See Rx Instructions PO Q6H PRN 03/29/24 Unknown Rx nausea and vomiting #90 tabs estradiol 0.01% (0.1 mg/gram) 1 applic vaginal .3 TIMES WEEKLY 04/06/24 Unknown History vaginal cream ferrous sulfate 325 mg (65 mg 325 mg PO BID SUPPLEMENT 04/06/24 Unknown History iron) tablet scopolamine base 1 mg over 3 days 1 patch transdermal Q3D #10 ea 04/12/24 Unknown Rx transdermal patch lansoprazole 30 mg capsule,delayed 30 mg PO BID #60 caps 04/22/24 Unknown Rx release glycopyrrolate 2 mg tablet 2 mg PO BID-TID PRN secretions #60 06/21/24 Unknown Rx tabs metoclopramide HCl 5 mg tablet 5 mg PO QAC #90 tabs 06/21/24 Unknown Rx nutritional supplements 0.06 948 ml feeding tube QHS 07/04/24 Unknown History gram-1.2 kcal/mL oral liquid (Osmolite 1.2 Mp) Allergy/AdvReac Type Severity Reaction Status Date / Time No Known Allergies Allergy Verified 07/03/24 20:34 Family History Father CVA (cerebral vascular accident) Sister CVA (cerebral vascular accident) Cancer Surgical History History of esophagogastroduodenoscopy (EGD) Hx of esophagogastroduodenoscopy Social History household members: spouse housing: house Smoking Status: Former smoker Tobacco: How many years used: 4 second hand exposure: Yes alcohol intake: never substance use type: does not use what type of physical activity do you participate in: other details: OT [facility] [place] frequency: daily valentina/jainism: Oriental Orthodox seatbelt use: always additional social history: Ambulates at baseline without assistive device ROS Constitutional Constitutional: Reports fatigue and weakness; Denies anorexia, change in weight, chills, fever(s), malaise, night sweats or other Eyes Eyes: Denies blurry vision, change in eye color, change in vision, discharge from eye(s), double vision, erythema, eye pain, loss of vision or other ENT HEENT: Denies abnormal hearing, dysphagia, ear pain, epistaxis, headache(s), hearing loss, nasal congestion, nasal discharge, post nasal drip, sinus pressure, sore throat or other Cardiovascular Cardiovascular: Denies chest pain, claudication, dyspnea on exertion, edema, lightheadedness, orthopnea, palpitations, paroxysmal nocturnal dyspnea, rapid heart rate, syncope or other Respiratory/Chest Respiratory/Chest: Reports cough; Denies dyspnea, excessive phlegm production, hemoptysis, productive cough, shortness of breath at rest, shortness of breath with exertion, wheezing or other Gastrointestinal Gastrointestinal: Reports constipation; Denies abdominal pain, coffee ground emesis, diarrhea, dyspepsia, hematemesis, hematochezia, loose stools, melena, nausea, vomiting or other Genitourinary Genitourinary: Denies burning urination, difficulty urinating, dysuria, hematuria, nocturia, urinary frequency, urinary hesitancy, urinary incontinence, urinary urgency or other Musculoskeletal Musculoskeletal: Reports joint pain and joint stiffness; Denies arthralgias, back pain, joint swelling, myalgias, neck pain or other Neurologic Neurologic: Reports abnormal gait and tremor(s); Denies abnormal speech, confusion, disequilibrium, dizziness, focal weakness, headache(s), numbness, paresthesias, seizure-like activity, seizures, syncope, tingling or other Psychiatric Psychiatric: Reports anxiety, depression and other Details: History of bipolar disease Endocrine Endocrinology: Denies change in body appearance, cold intolerance, excessive sweating, heat intolerance, polydipsia, polyuria or other Hematologic/Lymphatic Hematologic/Lymphatic: Denies anemia, easy bleeding, easy bruising, lymphadenopathy or other Allergic/Immunologic Allergic/Immunologic: Denies rhinitis, hives, eczemia, asthma or other Vital Signs Vital Signs Vital Signs: 07/03/24 20:29 07/03/24 20:29 07/03/24 20:47 Temperature 97.3 F L Temperature Source Temporal Pulse Rate 91 Respiratory Rate 16 Respiratory Effort Normal Non-Labored Respiratory Pattern Normal Blood Pressure 74/54 L 80/50 L Blood Pressure Mean 60 60 Blood Pressure Source Blood Pressure Position Blood Pressure Location Pulse Ox 87 93 Oxygen Delivery Method Room Air Nasal Cannula Oxygen Flow Rate (L/min) 2 07/03/24 21:28 07/03/24 22:00 07/03/24 23:00 Temperature Temperature Source Pulse Rate 80 76 80 Respiratory Rate 16 17 15 Respiratory Effort Respiratory Pattern Blood Pressure 77/53 L 104/51 L 99/71 Blood Pressure Mean 61 68 80 Blood Pressure Source Blood Pressure Position Blood Pressure Location Pulse Ox 94 92 96 Oxygen Delivery Method Room Air Nasal Cannula Nasal Cannula Oxygen Flow Rate (L/min) 3 3 07/04/24 00:06 07/04/24 00:21 07/04/24 00:30 Temperature 98.7 F 98.6 F 98.6 F Temperature Source Oral Oral Pulse Rate 79 84 79 Respiratory Rate 19 H 20 H 19 H Respiratory Effort Respiratory Pattern Blood Pressure 95/57 L 87/62 L 90/51 L Blood Pressure Mean 69 70 64 Blood Pressure Source Monitor Monitor Blood Pressure Position Supine Semi-Fowlers Blood Pressure Location Left Arm Left Arm Pulse Ox 97 99 99 Oxygen Delivery Method Nasal Cannula Room Air Oxygen Flow Rate (L/min) 3 Weight Weight: 64.864 kg Body Mass Index (BMI) 24.5 Physical Exam Const alert, oriented x3, no apparent distress and average body habitus; Negative for healthy appearing or well nourished Constitutional Narrative: Elderly, white female, who appears much older than stated age, appears chronically ill, lying in bed having Tinoco placed, does not appear toxic and mentating at baseline being oriented to self but with confusion about recent events, does not appear to be well-nourished General Appearance: cooperative HEENT normocephalic, head/scalp atraumatic and hearing grossly normal bilaterally; Negative for moist oral mucous membranes HEENT Narrative: Dentition is poor, mucous membranes are significantly dry, significant temporal wasting, Mallampati 2 Eyes PERRL and EOMs intact bilaterally Eyes Narrative: Bilateral conjunctiva pallor, no scleral icterus Neck no lymphadenopathy and supple Neck Narrative: Trachea midline, no thyroid enlargement Resp normal respiratory effort, no retractions, no use of accessory muscles and No clear to auscultation bilaterally Resp Narrative: Diminished at bases bilaterally with few crackles noted in right base Auscultation: crackles; Negative for rhonchi or wheezes Cardio regular rate, regular rhythm, S1 normal heart sound, S2 normal heart sound, no murmurs, no rub, no gallops and no clicks GI GI Narrative: Bowel sounds are hypoactive, mild distention noted but abdomen is soft, no tenderness Extremity no clubbing, cyanosis or edema Extremity Narrative: Decreased lean muscle mass Skin No no rashes or lesions noted, no wounds, No skin turgor normal, no jaundice, no petechiae and no mottling Skin Narrative: Skin is markedly pale, ecchymosis noted on bilateral knees and appear to be more acute Neuro oriented x3, moves all extremities and no focal motor deficits Neuro Narrative: Marked generalized weakness Speech: speech normal Psych affect normal Psych Narrative: Interacts appropriately, mild confusion Results Lab / Micro Data 07/04/24 00:11 07/03/24 20:44 Labs: Laboratory Results - last 24 hr 07/03/24 20:44: WBC 20.9 H, RBC 2.86 L, Hgb 8.6 L, Hct 28.2 L, MCV 98.6, MCH 30.1, MCHC 30.5 L, RDW Std Deviation 52.2 H, RDW Coeff of Lee 14.5, Plt Count 333, MPV 9.9, Immature Gran % (Auto) 0.700, Neut % (Auto) 86.4 H, Lymph % (Auto) 5.6 L, Emmet % (Auto) 7.1, Eos % (Auto) 0.0, Baso % (Auto) 0.2, Absolute Neuts (auto) 18.0 H, Absolute Lymphs (auto) 1.17, Nucleated RBC % 0, PT 12.8, INR 1.0, APTT 25.9, Sodium 135 L, Potassium 4.7, Chloride 102, Carbon Dioxide 23.0, Anion Gap 10, BUN 106 H*, Creatinine 4.11 H, Estim Creat Clear Calc 10.21, Est GFR (MDRD) Af Amer 14 L, Est GFR (MDRD) Non-Af 11 L, BUN/Creatinine Ratio 25.8 H, Glucose 106, Calcium 10.4 H, Total Bilirubin 0.50, Direct Bilirubin 0.27, AST 35, ALT 42, Alkaline Phosphatase 135 H, Troponin I High Sens 31, Total Protein 6.8, Albumin 3.1 L, Globulin 3.7, Lipase 30 07/03/24 21:30: Lactic Acid 0.7, Blood Type B POSITIVE, Antibody Screen NEGATIVE, Crossmatch See Detail 07/03/24 22:12: Urine Color Yellow, Urine Clarity Clear, Urine pH 6.0, Ur Specific [place] 1.010, Urine Protein 15 H, Urine Glucose (UA) Normal, Urine Ketones Negative, Urine Occult Blood Negative, Urine Nitrite Negative, Urine Bilirubin Negative, Urine Urobilinogen Normal, Ur Leukocyte Esterase 100 H, Urine RBC 0 SEEN, Urine WBC 0-5 SEEN, Ur Squamous Epith Cells 0 SEEN, Ur Renal Epithelial Cell 0-5 SEEN, Urine Bacteria 0 SEEN, Urine Mucus 0 SEEN 07/03/24 22:52: Hgb 6.6 L, Hct 21.6 L 07/04/24 00:11: WBC 15.0 H, RBC 2.25 L, Hgb 6.8 L, Hct 22.8 L, MCV 101.3 H, MCH 30.2, MCHC 29.8 L, RDW Std Deviation 53.0 H, RDW Coeff of Lee 14.5, Plt Count 216, MPV 9.7, Immature Gran % (Auto) 0.900, Neut % (Auto) 84.2 H, Lymph % (Auto) 8.4 L, Emmet % (Auto) 6.1, Eos % (Auto) 0.1, Baso % (Auto) 0.3, Absolute Neuts (auto) 12.6 H, Absolute Lymphs (auto) 1.26, Nucleated RBC % 0 Micro: Microbiology 07/03/24 22:35 Stool Stool Occult Blood (LIZ) - Final Imaging Radiology Impression Chest X-Ray 07/03/24 21:20 IMPRESSION: There are no acute findings. Electronically Signed: Osvaldo Michael MD at 21:35 EDT , Abdomen/Pelvis CT 07/03/24 22:37 IMPRESSION: 1. G-tube in place. 2. Rectosigmoid colon distended with large amount of stool. Correlate for fecal impaction. No bowel obstruction. 3. Bladder distended and displaced by the stool distended rectum. Possibly a component of bladder outlet obstruction. 4. Bilateral nephrolithiasis without hydronephrosis. 5. Multifocal airspace disease in the lower lungs likely pneumonia. 6. Presumed esophageal stent partially included. Electronically Signed: Cece Oviedo MD at 23:55 EDT , Assessment & Plan Assessment/Plan (1) Acute renal failure: (2) Anemia requiring transfusions: (3) Leukocytosis: (4) Esophageal obstruction: (5) Bladder outlet obstruction: (6) Fecal impaction: (7) Constipation: (8) Aspiration pneumonia: (9) Acute hypotension: (10) Hypercalcemia: PLAN: Plan Acute on chronic anemia secondary to suspected GI bleed -Baseline hemoglobin has been running between 10 and 12 -8.6 on presentation but patient hypotensive and appeared to be dehydrated so fluids given and repeat was obtained and found to be 6.6 -Guaiac was negative however per emergency department physician stool in the rectal vault was black and tarry -Suspect upper GI bleed with BUN/creatinine ratio -Protonix bolus and drip initiated and will continue -N.p.o. for possible EGD on 07/04/2024--> may also need colonoscopy depending on findings but will need extensive bowel prep -Cycle hemoglobin after transfusion given -CT scan of the abdomen pelvis does not show any signs of obvious blood loss -GI consult pending--> Dr. Verma notified via text Esophageal obstruction -Patient with known history of esophageal stenosis -Air-fluid levels noted in esophagus on CT of the abdomen and pelvis -Patient n.p.o. -GI consult pending for EGD and assistance with management -Will monitor in ICU Acute hypotension -Hold home antihypertensives -Lactate was surprisingly normal on presentation -Blood pressures are responding to IV fluids and blood transfusion -Highly doubt related to infectious process however blood cultures are pending -On Unasyn for suspected aspiration pneumonia CITLALY on CKD stage IIIb secondary to severe dehydration and bladder outlet obstruction from constipation -Baseline serum creatinine between as of recently appears to be running between 2.1 and 2.4 -Serum creatinine on presentation was 4.11 -Suspect combination between dehydration and bladder outlet obstruction from constipation noted on CT -Patient received 2 L IV bolus in the emergency department -Continue IV fluids at 75 cc/h -Will renally dose necessary medications -hold home losartan -Has known medical renal disease baseline -Will hold off on nephrology involvement for now but may need to be pursued if renal function does not improve Constipation -Distended rectosigmoid colon with large amount of stool noted on CT suggestive of fecal impaction with no noted bowel obstruction -Bladder is displaced due to stool -Every 6 hour enemas-soapsuds x 4 -Twice daily MiraLAX via PEG -Scheduled rectal Dulcolax -May need colonoscopy -Check TSH Aspiration pneumonia -Patient has been coughing -No fever but white count is elevated -Multifocal airspace disease noted in the lower lungs consistent with pneumonia on the CAT scan -Start Unasyn 3 g daily for renal dosing and dosing will likely need adjusted as renal function improves -Speech therapy consultation History of dysphagia/esophagitis/esophageal stenosis/history of nondiabetic gastroparesis -Most recent EGD was done on 04/12/2024 at which time she was found to have benign-appearing esophageal stenosis that was dilated and biopsied as well as 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 that was biopsied, eroding gastrostomy tube that was exchanged and normal duodenal bulb -Biopsies were unremarkable for any malignancy -Has been on tube feed but patient indicates she is eating orally as well -Patient is not the greatest historian so is unclear what she is currently doing with regards to her nutrition -GI consult as above Debility/falls -Patient having multiple falls at home as of recently -Consult PT/OT -Placement has been ordered commended previously but has been reluctant to do so -May need placement at this time if agreeable and will consult social work and case management for assistance with discharge planning Osteoporosis -Continue Prolia as an outpatient -Hold home colecalciferol and restart at discharge History of hyperthyroidism -Continue methimazole via PEG Primary hyperparathyroidism -Continue cinaclcet Urinary incontinence -Hold home oxybutynin -Tinoco in place for bladder outlet obstruction due to fecal retention Bipolar disorder -Continue home lorazepam -Continue home Lamictal -Mood currently seems stable -Does have baseline tremor from medication -Patient with history of renal toxicity from lithium Cognitive impairment -Hold home memantine for now DVT prophylaxis -SCDs -Chemoprophylaxis contraindicated due to admission with profound anemia and suspected GI bleed CODE STATUS -Full code as verified on admission Charges/Coding Visit Charges Inpatient E&M: 84759 Init Hosp L3
[2024-07-04] MEDS: Ampicillin/Sulbactam 3 GM in 0.9% Normal Saline (100mL MB+) 100 ML IV ×2 (01:43→21:13)
[2024-07-04] MEDS: 0.9% Normal Saline (1000mL) 1,000 ML 75 ML IV (01:43)
[2024-07-04] MEDS: Scopolamine 1mg/72hr Patch 1 PATCH TD (01:58)
[2024-07-04] MEDS: 0.9% Saline Lock 10 ML Syringe IV (01:59)
[2024-07-04] MEDS: Ondansetron 4 MG/2 ML Vial IV (02:22)
[2024-07-04 02:44] LABS: ALB/GLOB Ratio 0.7 RATIO (0.9-2.4); AST(SGOT) 27 U/L (15-37); Alanine Aminotransfer ALT/SGPT 31 U/L (13-56); Albumin, Serum 2.2 g/dL (3.2-5.0); Alkaline Phosphatase 97 U/L (45-117); Anion Gap 7 (5-15); BUN 93 mg/dL (7-18); BUN/Creat Ratio 28.3 RATIO (10-20); Calcium,Total 8.4 mg/dL (8.5-10.1); Chloride 114 mmol/L (98-107); Creatinine, Serum 3.29 mg/dL (0.55-1.02); EST Glomerular Filtration Rate 15 mL/min (>60); Est Glom Filt Rate - Afr Amer 18 mL/min (>60); Estimated Creatinine Clearance 13.29 ml/min; Globulin 3.1 g/dL (2.2-4.2); Glucose 101 mg/dL (74-106); Magnesium 2.6 mg/dL (1.6-2.6); Phosphorus 3.9 mg/dL (2.5-4.9); Potassium 4.6 mmol/L (3.5-5.1); Protein, Total 5.3 g/dL (6.4-8.2); Sodium Level 141 mmol/L (136-145); Thyroid Stim Hormone (TSH) 0.323 uIU/mL (0.358-3.740)
[2024-07-04] MEDS: Lactated Ringers 1,000 ML 75 ML IV ×2 (04:07→18:31)
[2024-07-04 04:15] LABS: T4 Free Direct 0.98 ng/dL (0.76-1.46)
--- NOTE | 2024-07-04 04:57 | PCM.HOSP.N ---
Sepsis Attestation Sepsis Alert: Yes Sepsis Attestation: Sepsis Ruled Out (hypotension suspected to be related to dehydration and severe anemia) Date exam was performed: 07/04/24 Time exam was performed: 00:25
[2024-07-04] MEDS: Lactated Ringers 1,000 ML 999 ML IV (05:14)
[2024-07-04] MEDS: Bisacodyl 10 MG Suppository RC (05:14)
[2024-07-04 06:24] LABS: Absolute Lymphocyte Count 1.52 X10^3/uL (0.83-4.51); Absolute Neutrophil Count 8.9 X10^3/uL (2.0-7.7); Basophil# 0.02 X10^3/uL; Basophil% 0.2 % (0-1); Eosinophil# 0.04 X10^3/uL; Eosinophils% 0.4 % (0-5); Hematocrit 27.6 % (37-47); Hemoglobin 8.7 g/dL (12.0-15.0); Lymphocyte # 1.52 X10^3/ul (0.83-4.51); Lymphocyte % 13.5 % (19-41); Mean Corp Hgb Conc 31.5 g/dL (32-36); Mean Corpuscular Hgb 30.3 pg (27.0-32.0); Mean Corpuscular Volume 96.2 fL (81-99); Mean Platelet Vol. 9.8 fl (6.2-12.0); Monocyte# 0.73 X10^3/uL; Monocyte% 6.5 % (0-10); NRBC Flagged by Analyzer 0 % (0-5); Neutrophil # 8.87 X10^3/uL (2.7-7.7); Platelet Count 183 K/mm3 (150-450); RBC Distribution Width SD 52.4 fl (35.1-43.9); Red Blood Count 2.87 M/mm3 (4.2-5.4); White Blood Count 11.2 K/mm3 (4.4-11.0)
--- NOTE | 2024-07-04 07:11 | EX.PCM.CONCC ---
Assessment & Plan Assessment/Plan (1) Anemia requiring transfusions: (2) Aspiration pneumonia: PLAN: Plan RECOMMENDATIONS: 1. Continue PPI therapy with tentative plans for endoscopic evaluation later today by gastroenterology. 2. Continue gentle IV fluid hydration. 3. Continue empiric antibiotics. 4. Maintain n.p.o. status for now. 5. Continue to monitor blood counts and transfuse if hemoglobin drops below 7 g/dL. IMPRESSIONS: 1. Hypotension Most likely multifactorial with underlying GI bleed and intravascular volume depletion contributing. The patient has been fluid resuscitated and has received transfusion of blood products. Her blood pressure is currently stable at the present time, without the need for vasopressor support. Will continue to monitor the patient clinically. I agree that underlying infection seems unlikely. However, empiric antibiotics will be continued, pending infectious workup. 2. Acute on chronic anemia/history of esophageal stenosis/gastroparesis Presumed secondary to gastrointestinal blood loss. GI consultation is currently pending with tentative plans for endoscopic evaluation later today. Continue PPI therapy for now. Continue to monitor blood counts and transfuse if hemoglobin drops below 7 g/dL. 3. Suspected aspiration pneumonia The patient did have bibasilar airspace disease noted on presentation. Therefore, she has been initiated on appropriate antimicrobial therapy to cover for possible aspiration pneumonia. Her respiratory status is otherwise stable. 4. History of bipolar disorder/generalized debility/constipation Complicates care, management, recovery and prognosis. Continue home medications as indicated. Physical therapy to work with the patient. This note was generated with [employer] dictation software. It may contain incorrect words, spelling, and punctuation that were not noted in checking the note before signing. HPI Consult Data Date of Consult: 07/04/24 HPI Narrative Reason for Consultation: Hypotension HPI Narrative: The patient is a 74-year-old female, with a history as outlined below, who presented to the emergency department via EMS on July 03 with generalized weakness. The patient has a known history of an esophageal stricture status post dilation along with gastroparesis status post G-tube insertion. She is followed by gastroenterology on an outpatient basis. The patient last underwent an upper endoscopy in April 2024, during which time, the patient was dilated due to esophageal stenosis. The patient currently denies any abdominal pain, nausea or vomiting. On presentation to the emergency department, the patient was documented to be afebrile but was hypotensive with a presenting blood pressure of 74/54 mmHg. Initial laboratory evaluation revealed an elevated white blood cell count to 21,000 with a hemoglobin of 8.6 g/dL. Platelet count was within normal limits. Coagulation profile was unremarkable. Chemistry profile was notable for a BUN of 106 and creatinine of 4.1. Lactate was within normal limits. CT abdomen/pelvis demonstrated colonic distention with a large amount of stool along with a distended bladder and bilateral nephrolithiasis without hydronephrosis. Lower lobe airspace disease was noted as well. The patient received supplemental IV fluid hydration and was initiated on antimicrobial therapy over concerns for possible aspiration. Ultimately, the patient's hemoglobin dropped to 6.6 g/dL. She was transfused 2 units of packed red blood cells, with improvement this morning and her hemoglobin to 8.7 g/dL. Although she continues to have borderline hemodynamics, she has not required the initiation of vasopressor support. She remains on PPI therapy with gastroenterology consultation pending. [facility] Medical History History of Clostridium difficile infection Arthritis History of renal disease History of echocardiogram History of Mohs micrographic surgery for skin cancer Acute uremia Anemia History of jejunostomy tube placement Hypertension Iron deficiency anemia History of gastrostomy tube placement Acute renal insufficiency Anemia, unspecified Stenosis of esophagus Erosive esophagitis UTI (urinary tract infection) Gram-negative bacteremia Severe malnutrition Severe malnutrition Severe dehydration Wears glasses Post-menopausal Bipolar disorder Diabetes insipidus Thyroid disease Bladder disease Back pain Dietary restriction History of hiatal hernia Gastric reflux Former smoker Generalized weakness Unsteady gait History of edema Gastroparesis Nondiabetic gastroparesis Dysphagia Tardive dyskinesia [place] History of herpes zoster Hypertension Delirium due to multiple etiologies Hypercalcemia CITLALY (acute kidney injury) Hypernatremia Secondary hyperparathyroidism of renal origin Bipolar disorder with moderate depression Pulmonary emboli Anemia Anxiety Difficulty chewing Bipolar disorder Home Medications ?Medication ?Instructions ?Recorded ?Last Taken ?Type methimazole 5 mg tablet 5 mg PO SUMOWEFR Thyroid 10/04/20 01/14/23 History denosumab 60 mg/mL subcutaneous 60 mg subcut .Q6MO osteoporosis 09/05/22 08/27/22 History syringe (Prolia) oxybutynin chloride 15 mg 15 mg PO DAILY Overactive bladder 09/05/22 01/14/23 History tablet,extended release 24 hr polyethylene glycol 3350 17 17 g PO DAILY PRN constipation 10/28/22 10/28/22 History gram/dose oral powder (Miralax) lamotrigine 100 mg tablet 200 mg PO DAILY Bipolar Disorder 03/19/23 04/12/24 History losartan 25 mg tablet 25 mg PO DAILY BP 03/19/23 04/12/24 History cinacalcet 30 mg tablet 60 mg (2 x 30 mg) PO BID 30 days 04/08/23 Unknown Rx #120 tabs memantine 10 mg tablet 10 mg PO DAILY Check with primary 04/20/23 Unknown History doctor lorazepam 2 mg tablet 2 mg PO 4X/DAY 06/11/23 Unknown History cholecalciferol (vitamin D3) 50 100 mcg (2 x 50 mcg (2,000 unit)) 12/15/23 Unknown Rx mcg (2,000 unit) capsule PO DAILY #60 caps hyoscyamine sulfate 0.125 mg 0.125 mg PO BID PRN dyspepsia #14 03/29/24 Unknown Rx sublingual tablet tabs omeprazole 40 mg capsule,delayed 40 mg PO BID #120 caps 03/29/24 Unknown Rx release ondansetron HCl 4 mg tablet See Rx Instructions PO Q6H PRN 03/29/24 Unknown Rx nausea and vomiting #90 tabs estradiol 0.01% (0.1 mg/gram) 1 applic vaginal .3 TIMES WEEKLY 04/06/24 Unknown History vaginal cream ferrous sulfate 325 mg (65 mg 325 mg PO BID SUPPLEMENT 04/06/24 Unknown History iron) tablet scopolamine base 1 mg over 3 days 1 patch transdermal Q3D #10 ea 04/12/24 Unknown Rx transdermal patch lansoprazole 30 mg capsule,delayed 30 mg PO BID #60 caps 04/22/24 Unknown Rx release glycopyrrolate 2 mg tablet 2 mg PO BID-TID PRN secretions #60 06/21/24 Unknown Rx tabs metoclopramide HCl 5 mg tablet 5 mg PO QAC #90 tabs 06/21/24 Unknown Rx nutritional supplements 0.06 948 ml feeding tube QHS 07/04/24 Unknown History gram-1.2 kcal/mL oral liquid (Osmolite 1.2 Mp) Allergy/AdvReac Type Severity Reaction Status Date / Time No Known Allergies Allergy Verified 07/03/24 20:34 Family History Father CVA (cerebral vascular accident) Sister CVA (cerebral vascular accident) Cancer Surgical History History of esophagogastroduodenoscopy (EGD) Hx of esophagogastroduodenoscopy Social History household members: spouse housing: house Smoking Status: Former smoker Tobacco: How many years used: 4 second hand exposure: Yes alcohol intake: never substance use type: does not use what type of physical activity do you participate in: other details: OT - [facility] [place] frequency: daily valentina/zoroastrian: Baptism seatbelt use: always additional social history: Ambulates at baseline without assistive device ROS ROS Narrative 10 systems were reviewed with pertinent positives as noted in the HPI above. Physical Exam Const alert and no apparent distress General Appearance: cooperative HEENT normocephalic and head/scalp atraumatic Eyes PERRL, EOMs intact bilaterally and conjunctivae normal Neck supple General: trachea midline Chest inspection of chest normal Resp normal respiratory effort Auscultation: diminished lung sounds; Negative for rales, rhonchi or wheezes Cardio regular rate and regular rhythm GI soft to palpation and non-tender GI Narrative: Saw button in place Extremity no clubbing, cyanosis or edema Skin no rashes or lesions noted Neuro CN's II-XII intact bilaterally, moves all extremities and no focal motor deficits Psych cooperative and affect normal Lab / Micro Data 07/04/24 06:00 07/04/24 02:00 Labs: Laboratory Results - last 24 hr 07/03/24 20:44: WBC 20.9 H, RBC 2.86 L, Hgb 8.6 L, Hct 28.2 L, MCV 98.6, MCH 30.1, MCHC 30.5 L, RDW Std Deviation 52.2 H, RDW Coeff of Lee 14.5, Plt Count 333, MPV 9.9, Immature Gran % (Auto) 0.700, Neut % (Auto) 86.4 H, Lymph % (Auto) 5.6 L, [place] % (Auto) 7.1, Eos % (Auto) 0.0, Baso % (Auto) 0.2, Absolute Neuts (auto) 18.0 H, Absolute Lymphs (auto) 1.17, Nucleated RBC % 0, PT 12.8, INR 1.0, APTT 25.9, Sodium 135 L, Potassium 4.7, Chloride 102, Carbon Dioxide 23.0, Anion Gap 10, BUN 106 H*, Creatinine 4.11 H, Estim Creat Clear Calc 10.21, Est GFR (MDRD) Af Amer 14 L, Est GFR (MDRD) Non-Af 11 L, BUN/Creatinine Ratio 25.8 H, Glucose 106, Calcium 10.4 H, Total Bilirubin 0.50, Direct Bilirubin 0.27, AST 35, ALT 42, Alkaline Phosphatase 135 H, Troponin I High Sens 31, Total Protein 6.8, Albumin 3.1 L, Globulin 3.7, Lipase 30 07/03/24 21:30: Lactic Acid 0.7, Blood Type B POSITIVE, Antibody Screen NEGATIVE, Crossmatch See Detail 07/03/24 22:12: Urine Color Yellow, Urine Clarity Clear, Urine pH 6.0, Ur Specific [place] 1.010, Urine Protein 15 H, Urine Glucose (UA) Normal, Urine Ketones Negative, Urine Occult Blood Negative, Urine Nitrite Negative, Urine Bilirubin Negative, Urine Urobilinogen Normal, Ur Leukocyte Esterase 100 H, Urine RBC 0 SEEN, Urine WBC 0-5 SEEN, Ur Squamous Epith Cells 0 SEEN, Ur Renal Epithelial Cell 0-5 SEEN, Urine Bacteria 0 SEEN, Urine Mucus 0 SEEN 07/03/24 22:52: Hgb 6.6 L, Hct 21.6 L 07/04/24 00:11: WBC 15.0 H, RBC 2.25 L, Hgb 6.8 L, Hct 22.8 L, MCV 101.3 H, MCH 30.2, MCHC 29.8 L, RDW Std Deviation 53.0 H, RDW Coeff of Lee 14.5, Plt Count 216, MPV 9.7, Immature Gran % (Auto) 0.900, Neut % (Auto) 84.2 H, Lymph % (Auto) 8.4 L, Smith % (Auto) 6.1, Eos % (Auto) 0.1, Baso % (Auto) 0.3, Absolute Neuts (auto) 12.6 H, Absolute Lymphs (auto) 1.26, Nucleated RBC % 0 07/04/24 02:00: Sodium 141, Potassium 4.6, Chloride 114 H, Carbon Dioxide 20.0 L, Anion Gap 7, BUN 93 H, Creatinine 3.29 H, Estim Creat Clear Calc 13.29, Est GFR (MDRD) Af Amer 18 L, Est GFR (MDRD) Non-Af 15 L, BUN/Creatinine Ratio 28.3 H, Glucose 101, Calcium 8.4 L, Phosphorus 3.9, Magnesium 2.6, Total Bilirubin 0.50, AST 27, ALT 31, Alkaline Phosphatase 97, Total Protein 5.3 L, Albumin 2.2 L, Globulin 3.1, Albumin/Globulin Ratio 0.7 L, TSH 0.323 L, Free T4 0.98 07/04/24 06:00: WBC 11.2 H, RBC 2.87 L, Hgb 8.7 L, Hct 27.6 L, MCV 96.2 D, MCH 30.3, MCHC 31.5 L D, RDW Std Deviation 52.4 H, RDW Coeff of Lee 15.0 H, Plt Count 183, MPV 9.8, Immature Gran % (Auto) 0.400, Neut % (Auto) 79.0 H, Lymph % (Auto) 13.5 L, Smith % (Auto) 6.5, Eos % (Auto) 0.4, Baso % (Auto) 0.2, Absolute Neuts (auto) 8.9 H, Absolute Lymphs (auto) 1.52, Nucleated RBC % 0 Micro: Microbiology 07/03/24 22:35 Stool Stool Occult Blood (LIZ) - Final Imaging Radiology Impression Chest X-Ray 07/03/24 21:20 IMPRESSION: There are no acute findings. Electronically Signed: Osvaldo Michael MD at 21:35 EDT Reading Location ID and State: [facility] / [place] , Service support , Abdomen/Pelvis CT 07/03/24 22:37 IMPRESSION: 1. G-tube in place. 2. Rectosigmoid colon distended with large amount of stool. Correlate for fecal impaction. No bowel obstruction. 3. Bladder distended and displaced by the stool distended rectum. Possibly a component of bladder outlet obstruction. 4. Bilateral nephrolithiasis without hydronephrosis. 5. Multifocal airspace disease in the lower lungs likely pneumonia. 6. Presumed esophageal stent partially included. Electronically Signed: Cece Oviedo MD at 23:55 EDT , Charges/Coding Visit Charges Inpatient E&M: 29095 Init Hosp L3
--- NOTE | 2024-07-04 10:30 | CASEMGMT ---
RN CM Face to Face with patient for initial transition planning/care coordination assessment. RN CM introduced self and role at [facility]. Patient lying in bed, alert and oriented, daughter at bedside. Patient willing to participate in assessment and is able to answer all questions appropriately. Care providers, pharmacy, and demographics verified. Strata: 2 PCP: CARMENZA Kincaid Specialists: Bayron, GI; Jose Alberto, nursing educator; Amanuel, medical genetics director; Tomasz, neurologist; Jodie, psychiatrist Alexander Preferred Pharmacy: [facility] Insurance: [employer] Prescription Benefit: yes Living Will/HPOA: yes, Jeffrey Escamilla LNOK: , daughter Living Arrangements: Patient lives with in a single story home with 4 steps and railing to enter the home. Patient states she is independent at home, assists with tube feedings. recently had hip replacement last week and is currently receiving HHC with [facility]. Transportation: , daughter, family DME/HHC: Patient has walker, shower chair, grab bars, tube feeds, pump, and tube feed supplies at home. Patient has had [facility] in the past. Patient has been to TCU in the past. Will monitor for home oxygen, prefers [employer] for DME. Patient wishes to discharge home, will monitor for HHC pending progress with therapy, patient states she prefers [facility], declines list. Patient states he has no further needs or concerns at this time. CM to follow for discharge planning needs that may arise. Disposition Plan: Patient to discharge home with family support and follow-up plans in place. Will monitor for HHC and home oxygen. Debi ARMANDO, RN, CM
--- NOTE | 2024-07-04 14:35 | PN_ITS ---
Subjective Subjective Patient seen and examined. She had no active complaints. She had had several bowel movements overnight, including this morning, after being given a laxative. Review of systems is otherwise negative. She is for EGD today. Objective Data Objective Data Vital Signs: Vital Signs Temp Pulse Resp BP Pulse Ox O2 Del Method O2 Flow Rate 97.9 F 72 15 95/67 99 Nasal Cannula 2 07/04/24 13:00 07/04/24 13:00 07/04/24 13:00 07/04/24 13:00 07/04/24 13:00 07/04/24 13:00 07/04/24 13:00 Oxygen Flow Rate (L/min) 2 Oxygen Delivery Method Nasal Cannula Weight: 134 lb 4.184 oz Body Mass Index (BMI) 22.4 Intake & Output: Intake and Output for Last 24 Hours 07/02/24 07/03/24 07/04/24 23:59 23:59 23:59 Intake Total 2250 / 2250 1425.5 / 1425.5 Output Total 2024 / 2024 Balance 2250 / 2250 -599.5 / -599.5 Lab / Micro Data 07/04/24 11:50 07/04/24 02:00 Labs: Laboratory Results - last 24 hr 07/03/24 20:44: WBC 20.9 H, RBC 2.86 L, Hgb 8.6 L, Hct 28.2 L, MCV 98.6, MCH 30.1, MCHC 30.5 L, RDW Std Deviation 52.2 H, RDW Coeff of Lee 14.5, Plt Count 333, MPV 9.9, Immature Gran % (Auto) 0.700, Neut % (Auto) 86.4 H, Lymph % (Auto) 5.6 L, [place] % (Auto) 7.1, Eos % (Auto) 0.0, Baso % (Auto) 0.2, Absolute Neuts (auto) 18.0 H, Absolute Lymphs (auto) 1.17, Nucleated RBC % 0, PT 12.8, INR 1.0, APTT 25.9, Sodium 135 L, Potassium 4.7, Chloride 102, Carbon Dioxide 23.0, Anion Gap 10, BUN 106 H*, Creatinine 4.11 H, Estim Creat Clear Calc 10.21, Est GFR (MDRD) Af Amer 14 L, Est GFR (MDRD) Non-Af 11 L, BUN/Creatinine Ratio 25.8 H, Glucose 106, Calcium 10.4 H, Total Bilirubin 0.50, Direct Bilirubin 0.27, AST 35, ALT 42, Alkaline Phosphatase 135 H, Troponin I High Sens 31, Total Protein 6.8, Albumin 3.1 L, Globulin 3.7, Lipase 30 07/03/24 21:30: Lactic Acid 0.7, Blood Type B POSITIVE, Antibody Screen NEGATIVE, Crossmatch See Detail 07/03/24 22:12: Urine Color Yellow, Urine Clarity Clear, Urine pH 6.0, Ur Specific [place] 1.010, Urine Protein 15 H, Urine Glucose (UA) Normal, Urine Ketones Negative, Urine Occult Blood Negative, Urine Nitrite Negative, Urine Bilirubin Negative, Urine Urobilinogen Normal, Ur Leukocyte Esterase 100 H, Urine RBC 0 SEEN, Urine WBC 0-5 SEEN, Ur Squamous Epith Cells 0 SEEN, Ur Renal Epithelial Cell 0-5 SEEN, Urine Bacteria 0 SEEN, Urine Mucus 0 SEEN 07/03/24 22:52: Hgb 6.6 L, Hct 21.6 L 07/04/24 00:11: WBC 15.0 H, RBC 2.25 L, Hgb 6.8 L, Hct 22.8 L, MCV 101.3 H, MCH 30.2, MCHC 29.8 L, RDW Std Deviation 53.0 H, RDW Coeff of Lee 14.5, Plt Count 216, MPV 9.7, Immature Gran % (Auto) 0.900, Neut % (Auto) 84.2 H, Lymph % (Auto) 8.4 L, [place] % (Auto) 6.1, Eos % (Auto) 0.1, Baso % (Auto) 0.3, Absolute Neuts (auto) 12.6 H, Absolute Lymphs (auto) 1.26, Nucleated RBC % 0 07/04/24 02:00: Sodium 141, Potassium 4.6, Chloride 114 H, Carbon Dioxide 20.0 L , Anion Gap 7, BUN 93 H, Creatinine 3.29 H, Estim Creat Clear Calc 13.29, Est GFR (MDRD) Af Amer 18 L, Est GFR (MDRD) Non-Af 15 L, BUN/Creatinine Ratio 28.3 H , Glucose 101, Calcium 8.4 L, Phosphorus 3.9, Magnesium 2.6, Total Bilirubin 0.50, AST 27, ALT 31, Alkaline Phosphatase 97, Total Protein 5.3 L, Albumin 2.2 L, Globulin 3.1, Albumin/Globulin Ratio 0.7 L, TSH 0.323 L, Free T4 0.98 07/04/24 06:00: WBC 11.2 H, RBC 2.87 L, Hgb 8.7 L, Hct 27.6 L, MCV 96.2 D, MCH 30.3, MCHC 31.5 L D, RDW Std Deviation 52.4 H, RDW Coeff of Lee 15.0 H, Plt Count 183, MPV 9.8, Immature Gran % (Auto) 0.400, Neut % (Auto) 79.0 H, Lymph % (Auto) 13.5 L, [place] % (Auto) 6.5, Eos % (Auto) 0.4, Baso % (Auto) 0.2, Absolute Neuts (auto) 8.9 H, Absolute Lymphs (auto) 1.52, Nucleated RBC % 0 07/04/24 11:50: Hgb 9.0 L, Hct 28.0 L Micro: Microbiology 07/03/24 22:35 Stool Stool Occult Blood (LIZ) - Final Radiography Diagnostic Testing: Radiology Impression Chest X-Ray 07/03/24 21:20 IMPRESSION: There are no acute findings. Electronically Signed: Osvaldo Michael MD at 21:35 EDT , Abdomen/Pelvis CT 07/03/24 22:37 IMPRESSION: 1. G-tube in place. 2. Rectosigmoid colon distended with large amount of stool. Correlate for fecal impaction. No bowel obstruction. 3. Bladder distended and displaced by the stool distended rectum. Possibly a component of bladder outlet obstruction. 4. Bilateral nephrolithiasis without hydronephrosis. 5. Multifocal airspace disease in the lower lungs likely pneumonia. 6. Presumed esophageal stent partially included. Electronically Signed: Cece Oviedo MD at 23:55 EDT , Physical Exam Const alert, oriented x3 and no apparent distress Constitutional Narrative: frail, thin General Appearance: cooperative HEENT normocephalic, head/scalp atraumatic and moist oral mucous membranes Mouth: dry mucous membranes Eyes PERRL and EOMs intact bilaterally Neck no lymphadenopathy Cardio regular rate, regular rhythm, S1 normal heart sound and S2 normal heart sound GI normal to inspection, nondistended, normoactive bowel sounds, soft to palpation, non-tender and non-distended GI Narrative: has a Fely feeding tube in situ Extremity normal capillary refill, no clubbing, cyanosis or edema and no calf tenderness General Extremity: no tenderness to palpation of joints or extremities Skin General Skin Exam: no breakdown Neuro CN's II-XII intact bilaterally, no focal motor deficits, no sensory deficits noted and deep tendon reflexes 2+ bilaterally Motor Exam: strength 5/5 throughout and general weakness Psych thought process normal and cooperative Appearance: appropriate Assessment & Plan Assessment/Plan (1) Constipation: (2) Acute hypotension: PLAN: Plan #Acute on chronic anemia due to GI bleed * admitted with a complaint of dark stools nd generalised weakness and tiredness * Hb was 8.6 on admission, and repeat after being hydrated with IVF was 6.6. * she is s/p transfusion of 2 units of PRBCs * on protonix drip * GI on board. For EGD today * CT abdomen and pelvis showed no evidence of bleeding. * currently NPO * Hb is now 9. * #History of esophageal stenosis * currently NPO * has had repeated EGDs by GI, with stent insertion. * * #Hypotension: resolved. #CITLALY on CKD IIIb * likely due to hypotension and dehydration as well as possible bladder outlet obstruction in the setting of severe constipation. * being hydrated with IVF. Losartan on hold. * trend Cr * Cr was 4.11 on admission and is now 3.29; baseline Cr is ~ 1.8-1.9 * #Constipation * CT abdomen showed large amount of stool in rectosigmoid colon, with concern for impaction * has had bowel movements after she was started on enemas. * #Aspiration pneumonia * CT chest shwed evidence of multifocal airspace diseaes in the lower lungs. * wbc was elevated, though she was afebrile * she is on tube feeds by PEG tube, and also has esophageal stenosis so is at risk of aspiration. * on IV unasyn. * breathing treatment with bronchodilators * #Dysphagia due to esophageal stenosis: currently on tube feeds. #Debility and weakness due to mechanical falls * has been having multiple falls at home. * PT/OT on board * fall precautions * has been reluctant about placement in the past. * #Osteoporosis: #Bipolar disorder: on lamictal and lorazepam. #Dementia: on memantine #Hyperthyroidism:on methimazole #History of urinary incontinence: on oxybutynin which was held on admission. DVT prophylaxis: SCDs due to anemia Charges/Coding Visit Charges Inpatient E&M: 09120 Subs Hosp L3
--- NOTE | 2024-07-04 15:35 | PRE.ANES_ITS ---
ASA Classification* ASA Classification ASA Classification: 3 Assessment & Plan Anesthesia* Anesthesia Assessment Anesthesia Assessment: Discussed sedation and/or anesthesia options, risks, benefits, and alternatives with patient/parents/legal guardian/POA. Questions invited. The patient/parents/legal guardian/POA seems to understand and agrees to proceed with anesthesia plan. Reviewed the physical assessment, medical history, allergy history and patient home medications list prior to surgery/procedure/anesthetic and documented any changes. Performed airway and anesthesia risk assessments. Anesthesia Type Anesthesia Type: MAC History Source History Obtained from:: Patient and Chart Anesthesia Focused Assessment* Temperature: 97.9 F Pulse Rate: 76 Blood Pressure: 104/64 Respiratory Rate: 16 Pulse Ox: 98 Oxygen Delivery Method: Nasal Cannula (Patient on 2 L of oxygen in the hospital only.) Airway Assessment Mouth opens: >3 cm Mallampati Score: IV Teeth Condition: Intact Neck Range of motion (ROM): Full ROM Pertinent Findings EKG Pertinent Findings:: July 03, 2024. Normal sinus rhythm. Focused Labs Anesthesia Preop lab: CBC WBC 11.2 K/mm3 (4.4-11.0) H 07/04/24 06:00 RBC 2.87 M/mm3 (4.2-5.4) L 07/04/24 06:00 Hgb 9.0 g/dL (12.0-15.0) L 07/04/24 11:50 Hct 28.0 % (37-47) L 07/04/24 11:50 Plt Count 183 K/mm3 (150-450) 07/04/24 06:00 CHEMISTRY Potassium 4.6 mmol/L (3.5-5.1) 07/04/24 02:00 Sodium 141 mmol/L (136-145) 07/04/24 02:00 Magnesium 2.6 mg/dL (1.6-2.6) 07/04/24 02:00 Phosphorus 3.9 mg/dL (2.5-4.9) 07/04/24 02:00 BUN 93 mg/dL (7-18) H 07/04/24 02:00 Creatinine 3.29 mg/dL (0.55-1.02) H 07/04/24 02:00 Glucose 101 mg/dL (74-106) 07/04/24 02:00 POC Glucose 108 mg/dL (74-106) H 04/10/23 06:14 TSH 0.323 uIU/mL (0.358-3.740) L 07/04/24 02:00 COAG PT 12.8 SECONDS (11.7-14.9) 07/03/24 20:44 Pre-Assessment Diagnosis/Proposed Procedure Planned Operative Procedure(s): Esophagogastroduodenoscopy with possible cautery and/or injection therapy. 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 When Was Last Pacemaker Check QUESTION #4 FULL TEXT: You/Your Family Experience fever (hyperthermia) with Anesthesia Last Oral Intake Last Oral intake: Last Oral Intake NPO since Meds taken in AM with sips of water? Meds patient instructed to take am of surgery Any additional information?: Yes NPO since: 00:00 PONV PONV - needleworker: PONV - needleworker Female HX of Motion Sickness HX of N/V After Surgery Non-Smoker Duration of Surgery greater than 60 minutes Number of Risk Factors PONV Score Height & Weight Height & Weight: Anesthesia: Height & Weight Height 5 ft 5 in 07/04/24 10:02 Weight: 60.9 kg 07/04/24 10:02 Body Mass Index (BMI) 22.4 07/04/24 05:18 Respiratory Assessment Respiratory Assessment - needleworker: Respiratory Tract Infection Hx - needleworker Hx Respiratory Tract Infection No 04/06/24 09:42 STOP Sleep Apnea STOP Sleep Apnea - needleworker: STOP Sleep Apnea - needleworker Hx Hypertension No 07/04/24 01:07 Hx Sleep Apnea No 07/04/24 01:07 CPAP No 04/12/24 14:43 BIPAP No 04/06/24 09:42 Do you snore loudly (louder No 07/04/24 01:07 than talking or can be heard Do you often feel tired/ Yes 07/04/24 01:07 fatigued/ sleepy during daytime? Has anyone observed you stop No 07/04/24 01:07 breathing during sleep? STOP Results Negative 07/04/24 01:07 QUESTION #5 FULL TEXT : Do you snore loudly (louder than talking or can be heard through closed doors)? 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 Specify any problems Hx of Preganancy in last 3 No 07/04/24 01:07 Months Nurse Filling Out Transfusion [id number] 07/04/24 01:07 & Questions: Date: 07/04/24 07/04/24 01:07 Time: 01:13 07/04/24 01:07 Patient unable to answer at this time (ie. confused, unrespo /Reproduction History /Reproductive History - needleworker: /Reproductive Hx- needleworker Hx Now Gestational Age (in weeks): EDC: Hx Hx Para Hx Section SAB No 04/06/24 09:42 Active Medications Active Medications: Current Medications Generic Name Dose Route Start Last Admin Trade Name Freq PRN Reason Stop Dose Admin Acetaminophen 650 mg 07/04/24 01:06 Acetaminophen 650 Mg/20 Ml Udc GT Q6H PRN PRN Pain 1-10 or Fever Albuterol Sulfate 2.5 mg 07/04/24 01:06 Albuterol 2.5 Mg/3 Ml Vial.Neb. INHALATION Q2H PRN PRN SOB &/OR WHEEZING Bisacodyl 10 mg 07/04/24 10:00 07/04/24 05:14 Bisacodyl 10 Mg Suppository RC 10 mg DAILY BINA Administration Cinacalcet 60 mg 07/04/24 10:00 07/04/24 09:27 Cinacalcet Hcl 30 Mg Tablet PO Not Given BID BINA Enteral Nutritional Formula 0 ml 07/04/24 10:40 07/04/24 12:45 Vital Af 1.2 Mp Liquid 1,000 Ml GT Not Given UD BINA Pantoprazole Sodium 80 mg/ 100 mls @ 10 mls/hr 07/03/24 23:20 07/04/24 09:41 Sodium Chloride CONT INF 10 mls/hr Q10H BINA Administration Sodium Chloride 500 mls @ 15 mls/hr 07/04/24 01:16 IV PRN PRN Blood Transfusion Ampicillin Sodium/Sulbactam 112 mls @ 150 mls/hr 07/04/24 01:40 07/04/24 02:32 Sodium 3 gm/ Sodium Chloride IV Infused QHS BINA Infusion Lactated Ringer's 1,000 mls @ 75 mls/hr 07/04/24 04:00 07/04/24 04:07 IV 75 mls/hr .[id number] BINA Administration Lamotrigine 200 mg 07/04/24 10:00 07/04/24 09:26 Lamotrigine 100 Mg Tablet GT Not Given DAILY BINA Lorazepam 2 mg 07/04/24 10:00 07/04/24 15:07 Lorazepam 1 Mg Tablet GT Not Given 4X/DAY BINA Methimazole 5 mg 07/04/24 10:00 07/04/24 09:27 Methimazole 5 Mg Tablet GT Not Given [id number] BINA Ondansetron HCl 4 mg 07/04/24 01:06 07/04/24 02:22 Ondansetron 4 Mg/2 Ml Vial IV 4 mg Q8H PRN PRN Administration NAUSEA/VOMITING Polyethylene Glycol 17 gm 07/04/24 10:00 07/04/24 09:27 Polyethylene Glycol 3350 17 Gm Packet GT Not Given BID BINA Scopolamine HBr 1 patch 07/04/24 01:06 07/04/24 01:58 Scopolamine 1mg/72hr Patch TD 1 patch Q3D BINA Administration Sodium Chloride 10 - 40 ml 07/04/24 01:16 07/04/24 01:59 0.9% Saline Lock 10 Ml Syringe IV 10 ml UD PRN Administration SALINE FLUSH [facility] Medical History History of Clostridium difficile infection Arthritis History of renal disease History of echocardiogram History of Mohs micrographic surgery for skin cancer Acute uremia Anemia History of jejunostomy tube placement Hypertension Iron deficiency anemia History of gastrostomy tube placement Acute renal insufficiency Anemia, unspecified Stenosis of esophagus Erosive esophagitis UTI (urinary tract infection) Gram-negative bacteremia Severe malnutrition Severe malnutrition Severe dehydration Wears glasses Post-menopausal Bipolar disorder Diabetes insipidus Thyroid disease Bladder disease Back pain Dietary restriction History of hiatal hernia Gastric reflux Former smoker Generalized weakness Unsteady gait History of edema Gastroparesis Nondiabetic gastroparesis Dysphagia [place] dys[place]ia [place] History of herpes zoster Hypertension Delirium due to multiple etiologies Hypercalcemia CITLALY (acute kidney injury) Hypernatremia Secondary hyperparathyroidism of renal origin Bipolar disorder with moderate depression Pulmonary emboli Anemia Anxiety Difficulty chewing Bipolar disorder Home Medications ?Medication ?Instructions ?Recorded ?Last Taken ?Type methimazole 5 mg tablet 5 mg PO SUMOWEFR Thyroid 10/04/20 01/14/23 History denosumab 60 mg/mL subcutaneous 60 mg subcut .Q6MO osteoporosis 09/05/22 08/27/22 History syringe (Prolia) oxybutynin chloride 15 mg 15 mg PO DAILY Overactive bladder 09/05/22 01/14/23 History tablet,extended release 24 hr polyethylene glycol 3350 17 17 g PO DAILY PRN constipation 09/05/22 09/05/22 History gram/dose oral powder (Miralax) lamotrigine 100 mg tablet 200 mg PO DAILY Bipolar Disorder 03/19/23 04/12/24 History losartan 25 mg tablet 25 mg PO DAILY BP 03/19/23 04/12/24 History cinacalcet 30 mg tablet 60 mg (2 x 30 mg) PO BID 30 days 04/08/23 Unknown Rx #120 tabs memantine 10 mg tablet 10 mg PO DAILY Check with primary 04/20/23 Unknown History doctor lorazepam 2 mg tablet 2 mg PO 4X/DAY 06/11/23 Unknown History cholecalciferol (vitamin D3) 50 100 mcg (2 x 50 mcg (2,000 unit)) 12/15/23 Unknown Rx mcg (2,000 unit) capsule PO DAILY #60 caps hyoscyamine sulfate 0.125 mg 0.125 mg PO BID PRN dyspepsia #14 03/29/24 Unknown Rx sublingual tablet tabs omeprazole 40 mg capsule,delayed 40 mg PO BID #120 caps 03/29/24 Unknown Rx release ondansetron HCl 4 mg tablet See Rx Instructions PO Q6H PRN 03/29/24 Unknown Rx nausea and vomiting #90 tabs estradiol 0.01% (0.1 mg/gram) 1 applic vaginal .3 TIMES WEEKLY 04/06/24 Unknown History vaginal cream ferrous sulfate 325 mg (65 mg 325 mg PO BID SUPPLEMENT 04/06/24 Unknown History iron) tablet scopolamine base 1 mg over 3 days 1 patch transdermal Q3D #10 ea 04/12/24 Unknown Rx transdermal patch lansoprazole 30 mg capsule,delayed 30 mg PO BID #60 caps 04/22/24 Unknown Rx release glycopyrrolate 2 mg tablet 2 mg PO BID-TID PRN secretions #60 06/21/24 Unknown Rx tabs metoclopramide HCl 5 mg tablet 5 mg PO QAC #90 tabs 06/21/24 Unknown Rx nutritional supplements 0.06 948 ml feeding tube QHS 07/04/24 Unknown History gram-1.2 kcal/mL oral liquid (Osmolite 1.2 Mp) Allergy/AdvReac Type Severity Reaction Status Date / Time No Known Allergies Allergy Verified 07/03/24 20:34 Family History Father CVA (cerebral vascular accident) Sister CVA (cerebral vascular accident) Cancer Surgical History History of esophagogastroduodenoscopy (EGD) Hx of esophagogastroduodenoscopy Social History household members: spouse housing: house Smoking Status: Former smoker Tobacco: How many years used: 4 second hand exposure: Yes alcohol intake: never substance use type: does not use what type of physical activity do you participate in: other details: OT [facility] [place] frequency: daily valent[place]/roman catholic: [employer] seatbelt use: always additional social history: Ambulates at baseline without assistive device Review of Systems (Anesthesia) ROS Narrative System reviewed and no additional complaints, except as documented.
--- NOTE | 2024-07-04 17:29 | CON.PCM.GI_ITS ---
HPI Consult Data Date of Consult: 07/04/24 HPI Narrative Reason for Consultation: GI bleed HPI Narrative: SIMONA HERNANDEZ, is a 74 F who [id number] who presented to the emergency department at [facility] on the evening of 07/03/2020 for with a chief complaint of weakness. She had been having several episodes where she got profoundly weak and had lowered herself to the ground of the past 2 days. She has significant ecchymosis on bilateral knees. She was not complaining of any abdominal pain, nausea, or vomiting. She evidently has had a chronic cough over the last 3 weeks. She has a feeding tube it has been there for at least a year. 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 She had no bleeding noted to the upper GI tract at that time. Her PEG tube was noted to be eroded so it was exchanged at that time. CBC on presentation showed a white count of 20.9, hemoglobin of 8.6, and a left shift was present with an 86.4 neutrophilia. After she was hydrated hemoglobin was repeated and found to be 6.6 this blood was ordered. There was high suspicion of GI bleed at the time of admission due to her dark stools thus the repeat in her hemoglobin. Her chemistry panel showed mild hyponatremia the sodium 135, markedly elevated BUN/creatinine at 106 and 4.11 respectively (baseline between 2.1 and 2.4), mild hypercalcemia which she has chronic issues with and takes calcium at and normal liver functions. Her UA was not consistent with infection. Chest x-rays are unremarkable. CT of the abdomen pelvis was performed and showed G-tube in place with distention of the rectosigmoid colon and a large amount of stool suspicious of fecal impaction but no bowel obstruction, bladder distention and displaced due to stool, bilateral nephrolithiasis without hydronephrosis, multifocal airspace disease in the lower lungs and presumed esophageal stent with partial occlusion noted. [facility] Medical History History of Clostridium difficile infection Arthritis History of renal disease History of echocardiogram History of Mohs micrographic surgery for skin cancer Acute uremia Anemia History of jejunostomy tube placement Hypertension Iron deficiency anemia History of gastrostomy tube placement Acute renal insufficiency Anemia, unspecified Stenosis of esophagus Erosive esophagitis UTI (urinary tract infection) Gram-negative bacteremia Severe malnutrition Severe malnutrition Severe dehydration Wears glasses Post-menopausal Bipolar disorder Diabetes insipidus Thyroid disease Bladder disease Back pain Dietary restriction History of hiatal hernia Gastric reflux Former smoker Generalized weakness Unsteady gait History of edema Gastroparesis Nondiabetic gastroparesis Dysphagia [place] History of herpes zoster Hypertension Delirium due to multiple etiologies Hypercalcemia CITLALY (acute kidney injury) Hypernatremia Secondary hyperparathyroidism of renal origin Bipolar disorder with moderate depression Pulmonary emboli Anemia Anxiety Difficulty chewing Bipolar disorder Home Medications ?Medication ?Instructions ?Recorded ?Last Taken ?Type methimazole 5 mg tablet 5 mg PO SUMOWEFR Thyroid 10/04/20 01/14/23 History denosumab 60 mg/mL subcutaneous 60 mg subcut .Q6MO osteoporosis 09/05/22 08/27/22 History syringe (Prolia) oxybutynin chloride 15 mg 15 mg PO DAILY Overactive bladder 09/05/22 01/14/23 History tablet,extended release 24 hr polyethylene glycol 3350 17 17 g PO DAILY PRN constipation 09/05/22 09/05/22 History gram/dose oral powder (Miralax) lamotrigine 100 mg tablet 200 mg PO DAILY Bipolar Disorder 03/19/23 04/12/24 History losartan 25 mg tablet 25 mg PO DAILY BP 03/19/23 04/12/24 History cinacalcet 30 mg tablet 60 mg (2 x 30 mg) PO BID 30 days 04/08/23 Unknown Rx #120 tabs memantine 10 mg tablet 10 mg PO DAILY Check with primary 04/20/23 Unknown History doctor lorazepam 2 mg tablet 2 mg PO 4X/DAY 06/11/23 Unknown History cholecalciferol (vitamin D3) 50 100 mcg (2 x 50 mcg (2,000 unit)) 12/15/23 Unknown Rx mcg (2,000 unit) capsule PO DAILY #60 caps hyoscyamine sulfate 0.125 mg 0.125 mg PO BID PRN dyspepsia #14 03/29/24 Unknown Rx sublingual tablet tabs omeprazole 40 mg capsule,delayed 40 mg PO BID #120 caps 03/29/24 Unknown Rx release ondansetron HCl 4 mg tablet See Rx Instructions PO Q6H PRN 03/29/24 Unknown Rx nausea and vomiting #90 tabs estradiol 0.01% (0.1 mg/gram) 1 applic vaginal .3 TIMES WEEKLY 04/06/24 Unknown History vaginal cream ferrous sulfate 325 mg (65 mg 325 mg PO BID SUPPLEMENT 04/06/24 Unknown History iron) tablet scopolamine base 1 mg over 3 days 1 patch transdermal Q3D #10 ea 04/12/24 Unknown Rx transdermal patch lansoprazole 30 mg capsule,delayed 30 mg PO BID #60 caps 04/22/24 Unknown Rx release glycopyrrolate 2 mg tablet 2 mg PO BID-TID PRN secretions #60 06/21/24 Unknown Rx tabs metoclopramide HCl 5 mg tablet 5 mg PO QAC #90 tabs 06/21/24 Unknown Rx nutritional supplements 0.06 948 ml feeding tube QHS 07/04/24 Unknown History gram-1.2 kcal/mL oral liquid (Osmolite 1.2 Mp) Allergy/AdvReac Type Severity Reaction Status Date / Time No Known Allergies Allergy Verified 07/03/24 20:34 Family History Father CVA (cerebral vascular accident) Sister CVA (cerebral vascular accident) Cancer Surgical History History of esophagogastroduodenoscopy (EGD) Hx of esophagogastroduodenoscopy Social History household members: spouse housing: house Smoking Status: Former smoker Tobacco: How many years used: 4 second hand exposure: Yes alcohol intake: never substance use type: does not use what type of physical activity do you participate in: other details: OT [facility] [place] frequency: daily valentina/christian: Rastafarian seatbelt use: always additional social history: Ambulates at baseline without assistive device ROS Constitutional Constitutional: Reports fatigue and weakness; Denies anorexia, change in weight, chills, fever(s), malaise, night sweats or other Eyes Eyes: Denies blurry vision, change in eye color, change in vision, discharge from eye(s), double vision, erythema, eye pain, loss of vision or other ENT HEENT: Denies abnormal hearing, dysphagia, ear pain, epistaxis, headache(s), hearing loss, nasal congestion, nasal discharge, post nasal drip, sinus pressure, sore throat or other Cardiovascular Cardiovascular: Denies chest pain, claudication, dyspnea on exertion, edema, lightheadedness, orthopnea, palpitations, paroxysmal nocturnal dyspnea, rapid heart rate, syncope or other Respiratory/Chest Respiratory/Chest: Reports cough; Denies dyspnea, excessive phlegm production, hemoptysis, productive cough, shortness of breath at rest, shortness of breath with exertion, wheezing or other Gastrointestinal Gastrointestinal: Reports constipation; Denies abdominal pain, coffee ground emesis, diarrhea, dyspepsia, hematemesis, hematochezia, loose stools, melena, nausea, vomiting or other Genitourinary Genitourinary: Denies burning urination, difficulty urinating, dysuria, hematuria, nocturia, urinary frequency, urinary hesitancy, urinary incontinence, urinary urgency or other Musculoskeletal Musculoskeletal: Reports joint pain and joint stiffness; Denies arthralgias, back pain, joint swelling, myalgias, neck pain or other Neurologic Neurologic: Reports abnormal gait and tremor(s); Denies abnormal speech, confusion, disequilibrium, dizziness, focal weakness, headache(s), numbness, paresthesias, seizure-like activity, seizures, syncope, tingling or other Psychiatric Psychiatric: Reports anxiety, depression and other Details: History of bipolar disease Endocrine Endocrinology: Denies change in body appearance, cold intolerance, excessive sweating, heat intolerance, polydipsia, polyuria or other Hematologic/Lymphatic Hematologic/Lymphatic: Denies anemia, easy bleeding, easy bruising, lymphadenopathy or other Allergic/Immunologic Allergic/Immunologic: Denies rhinitis, hives, eczemia, asthma or other Physical Exam Const alert, oriented x3 and no apparent distress Constitutional Narrative: frail, thin General Appearance: cooperative HEENT normocephalic, head/scalp atraumatic and moist oral mucous membranes Mouth: dry mucous membranes Eyes PERRL and EOMs intact bilaterally Neck no lymphadenopathy Cardio regular rate, regular rhythm, S1 normal heart sound and S2 normal heart sound GI normal to inspection, nondistended, normoactive bowel sounds, soft to palpation, non-tender and non-distended GI Narrative: has a Fely feeding tube in situ Extremity normal capillary refill, no clubbing, cyanosis or edema and no calf tenderness General Extremity: no tenderness to palpation of joints or extremities Skin General Skin Exam: no breakdown Neuro CN's II-XII intact bilaterally, no focal motor deficits, no sensory deficits noted and deep tendon reflexes 2+ bilaterally Motor Exam: strength 5/5 throughout and general weakness Psych thought process normal and cooperative Appearance: appropriate Lab / Micro Data 07/04/24 11:50 07/04/24 02:00 Labs: Laboratory Results - last 24 hr 07/03/24 20:44: WBC 20.9 H, RBC 2.86 L, Hgb 8.6 L, Hct 28.2 L, MCV 98.6, MCH 30.1, MCHC 30.5 L, RDW Std Deviation 52.2 H, RDW Coeff of Lee 14.5, Plt Count 333, MPV 9.9, Immature Gran % (Auto) 0.700, Neut % (Auto) 86.4 H, Lymph % (Auto) 5.6 L, [place] % (Auto) 7.1, Eos % (Auto) 0.0, Baso % (Auto) 0.2, Absolute Neuts (auto) 18.0 H, Absolute Lymphs (auto) 1.17, Nucleated RBC % 0, PT 12.8, INR 1.0, APTT 25.9, Sodium 135 L, Potassium 4.7, Chloride 102, Carbon Dioxide 23.0, Anion Gap 10, BUN 106 H*, Creatinine 4.11 H, Estim Creat Clear Calc 10.21, Est GFR (MDRD) Af Amer 14 L, Est GFR (MDRD) Non-Af 11 L, BUN/Creatinine Ratio 25.8 H, Glucose 106, Calcium 10.4 H, Total Bilirubin 0.50, Direct Bilirubin 0.27, AST 35, ALT 42, Alkaline Phosphatase 135 H, Troponin I High Sens 31, Total Protein 6.8, Albumin 3.1 L, Globulin 3.7, Lipase 30 07/03/24 21:30: Lactic Acid 0.7, Blood Type B POSITIVE, Antibody Screen NEGATIVE, Crossmatch See Detail 07/03/24 22:12: Urine Color Yellow, Urine Clarity Clear, Urine pH 6.0, Ur Specific [place] 1.010, Urine Protein 15 H, Urine Glucose (UA) Normal, Urine Ketones Negative, Urine Occult Blood Negative, Urine Nitrite Negative, Urine Bilirubin Negative, Urine Urobilinogen Normal, Ur Leukocyte Esterase 100 H, Urine RBC 0 SEEN, Urine WBC 0-5 SEEN, Ur Squamous Epith Cells 0 SEEN, Ur Renal Epithelial Cell 0-5 SEEN, Urine Bacteria 0 SEEN, Urine Mucus 0 SEEN 07/03/24 22:52: Hgb 6.6 L, Hct 21.6 L 07/04/24 00:11: WBC 15.0 H, RBC 2.25 L, Hgb 6.8 L, Hct 22.8 L, MCV 101.3 H, MCH 30.2, MCHC 29.8 L, RDW Std Deviation 53.0 H, RDW Coeff of Lee 14.5, Plt Count 216, MPV 9.7, Immature Gran % (Auto) 0.900, Neut % (Auto) 84.2 H, Lymph % (Auto) 8.4 L, [place] % (Auto) 6.1, Eos % (Auto) 0.1, Baso % (Auto) 0.3, Absolute Neuts (auto) 12.6 H, Absolute Lymphs (auto) 1.26, Nucleated RBC % 0 07/04/24 02:00: Sodium 141, Potassium 4.6, Chloride 114 H, Carbon Dioxide 20.0 L , Anion Gap 7, BUN 93 H, Creatinine 3.29 H, Estim Creat Clear Calc 13.29, Est GFR (MDRD) Af Amer 18 L, Est GFR (MDRD) Non-Af 15 L, BUN/Creatinine Ratio 28.3 H , Glucose 101, Calcium 8.4 L, Phosphorus 3.9, Magnesium 2.6, Total Bilirubin 0.50, AST 27, ALT 31, Alkaline Phosphatase 97, Total Protein 5.3 L, Albumin 2.2 L, Globulin 3.1, Albumin/Globulin Ratio 0.7 L, TSH 0.323 L, Free T4 0.98 07/04/24 06:00: WBC 11.2 H, RBC 2.87 L, Hgb 8.7 L, Hct 27.6 L, MCV 96.2 D, MCH 30.3, MCHC 31.5 L D, RDW Std Deviation 52.4 H, RDW Coeff of Lee 15.0 H, Plt Count 183, MPV 9.8, Immature Gran % (Auto) 0.400, Neut % (Auto) 79.0 H, Lymph % (Auto) 13.5 L, [place] % (Auto) 6.5, Eos % (Auto) 0.4, Baso % (Auto) 0.2, Absolute Neuts (auto) 8.9 H, Absolute Lymphs (auto) 1.52, Nucleated RBC % 0 07/04/24 11:50: Hgb 9.0 L, Hct 28.0 L Micro: Microbiology 07/03/24 22:35 Stool Stool Occult Blood (LIZ) - Final Imaging Radiology Impression Chest X-Ray 07/03/24 21:20 IMPRESSION: There are no acute findings. Electronically Signed: Osvaldo Michael MD at 21:35 EDT , Abdomen/Pelvis CT 07/03/24 22:37 IMPRESSION: 1. G-tube in place. 2. Rectosigmoid colon distended with large amount of stool. Correlate for fecal impaction. No bowel obstruction. 3. Bladder distended and displaced by the stool distended rectum. Possibly a component of bladder outlet obstruction. 4. Bilateral nephrolithiasis without hydronephrosis. 5. Multifocal airspace disease in the lower lungs likely pneumonia. 6. Presumed esophageal stent partially included. Electronically Signed: Cece Oviedo MD at 23:55 EDT , Assessment & Plan Assessment/Plan (1) Acute renal failure: (2) Anemia requiring transfusions: (3) Leukocytosis: (4) Esophageal obstruction: (5) Bladder outlet obstruction: (6) Fecal impaction: (7) Constipation: (8) Aspiration pneumonia: (9) Acute hypotension: (10) Hypercalcemia: PLAN: Plan 74-year-old with multiple comorbidities and long history of benign esophageal stricture status post esophageal stent, severe gastroparesis secondary to medicines for depression status post PEG tube acute on chronic anemia secondary to suspected GI bleed -Baseline hemoglobin has been running between 10 and 12 -8.6 on presentation but patient hypotensive and appeared to be dehydrated so fluids given and repeat was obtained and found to be 6.6 -Guaiac was negative however per emergency department physician stool in the rectal vault was black and tarry -Suspect upper GI bleed with BUN/creatinine ratio -Protonix bolus and drip initiated and will continue -N.p.o. for EGD on 07/04/2024 -Cycle hemoglobin after transfusion given -CT scan of the abdomen pelvis does not show any signs of obvious blood loss Charges/Coding Visit Charges Inpatient E&M: 02440 Init Hosp L3
--- NOTE | 2024-07-04 17:29 | PCM.POST.ANE ---
Anesthesia: Postop Eval I Current Vital Signs Temperature: 97.4 F Pulse Rate: 72 Blood Pressure: 86/49 Respiratory Rate: 16 Pulse Ox: 99 Oxygen Delivery Method: Nasal Cannula Oxygen Flow Rate (L/min): 2 Assessment Airway patent: Yes Spontaneous unlabored respirations: Yes Mental status: Awake and Calm nausea: No Vomiting: No Anesthesia Complication: No Fluid Hydration Crystalloid volume administer (ml): 500 Total IV fluid infused: 500 Progress Note Anesthesia document: Postop Eval 1 completed: Yes
--- NOTE | 2024-07-04 17:31 | POSTOPAN2_ITS ---
Anesthesia Postop Eval I Sum Postop Eval Completion status Anesthesia document: Postop Eval 1 completed: Yes Anesthesia Postop Eval I Summary Anesthesia Postop Eval I Summary: Anesthesia Postop Eval I: Assessment Summary Airway patent Yes 07/04/24 17:31 PRODUCTION QUALITY ANALYST.MDOT Spontaneous unlabored Yes 07/04/24 17:31 PRODUCTION QUALITY ANALYST.MDOT respirations Mental status Awake,Calm 07/04/24 17:31 PRODUCTION QUALITY ANALYST.MDOT nausea No 07/04/24 17:31 PRODUCTION QUALITY ANALYST.MDOT Vomiting No 07/04/24 17:31 PRODUCTION QUALITY ANALYST.MDOT Anesthesia Postop Eval I: Fluid Summary Crystalloid volume administer 500 07/04/24 17:31 PRODUCTION QUALITY ANALYST.MDOT (ml) Colloids volume administered ( ml) Blood Product volume administered (ml) Total IV fluid infused 500 07/04/24 17:31 PRODUCTION QUALITY ANALYST.MDOT Anesthesia Postop Eval I: Summary Notes Anesthesia Complication No 07/04/24 17:31 PRODUCTION QUALITY ANALYST.MDOT Anesthesia Complication Comment: Post-operative progress note Anesthesia: Postop Eval II Evaluation Mental status: Awake and Calm Pain Level: 0 nausea: No Vomiting: No Complications Anesthesia Complication: No
--- NOTE | 2024-07-04 17:31 | PCM.POSTANE2 ---
Anesthesia Postop Eval I Sum Postop Eval Completion status Anesthesia document: Postop Eval 1 completed: Yes Anesthesia Postop Eval I Summary Anesthesia Postop Eval I Summary: Anesthesia Postop Eval I: Assessment Summary Airway patent Yes 07/04/24 17:31 CORPORATE LEGAL ASSISTANT.MDOT Spontaneous unlabored Yes 07/04/24 17:31 CORPORATE LEGAL ASSISTANT.MDOT respirations Mental status Awake,Calm 07/04/24 17:31 CORPORATE LEGAL ASSISTANT.MDOT nausea No 07/04/24 17:31 CORPORATE LEGAL ASSISTANT.MDOT Vomiting No 07/04/24 17:31 CORPORATE LEGAL ASSISTANT.MDOT Anesthesia Postop Eval I: Fluid Summary Crystalloid volume administer 500 07/04/24 17:31 CORPORATE LEGAL ASSISTANT.MDOT (ml) Colloids volume administered ( ml) Blood Product volume administered (ml) Total IV fluid infused 500 07/04/24 17:31 CORPORATE LEGAL ASSISTANT.MDOT Anesthesia Postop Eval I: Summary Notes Anesthesia Complication No 07/04/24 17:31 CORPORATE LEGAL ASSISTANT.MDOT Anesthesia Complication Comment: Post-operative progress note Anesthesia: Postop Eval II Evaluation Mental status: Awake and Calm Pain Level: 0 nausea: No Vomiting: No Complications Anesthesia Complication: No
--- NOTE | 2024-07-04 17:40 | OP.EGD_ITS ---
Patient Name: Fior Escamilla Procedure Date: 07/04/2024 3:00 PM Date of : 1950 Age: 74 Procedure: Upper GI endoscopy Indications: Recent gastrointestinal bleeding Providers: Francis Verma DO Medicines: Monitored Anesthesia Care Patient Profile: This is a 74 year old female. Refer to note in patient chart for documentation of history and physical. Patient has symptoms of chronic dysphagia and acute vomiting. Complications: No immediate complications. Procedure: Pre-Anesthesia Assessment: - Prior to the procedure, a History and Physical was performed, and patient medications and allergies were reviewed. The patient is competent. The risks and benefits of the procedure and the sedation options and risks were discussed with the patient. All questions were answered and informed consent was obtained. Patient identification and proposed procedure were verified by the physician in the pre-procedure area. Mental Status Examination: alert and oriented. Airway Examination: normal oropharyngeal airway and neck mobility. Respiratory Examination: clear to auscultation. CV Examination: normal. Prophylactic Antibiotics: The patient does not require prophylactic antibiotics. Prior Anticoagulants: The patient has taken no anticoagulant or antiplatelet agents. ASA Grade Assessment: II - A patient with mild systemic disease. After reviewing the risks and benefits, the patient was deemed in satisfactory condition to undergo the procedure. The anesthesia plan was to use monitored anesthesia care (MAC). Immediately prior to administration of medications, the patient was re-assessed for adequacy to receive sedatives. The heart rate, respiratory rate, oxygen saturations, blood pressure, adequacy of pulmonary ventilation, and response to care were monitored throughout the procedure. The physical status of the patient was re-assessed after the procedure. After obtaining informed consent, the endoscope was passed under direct vision. Throughout the procedure, the patient's blood pressure, pulse, and oxygen saturations were monitored continuously. The gastroscope was introduced through the mouth, and advanced to the second part of duodenum. The upper GI endoscopy was accomplished without difficulty. The patient tolerated the procedure well. Scope In: 4:39:07 PM Scope Out: 5:21:37 PM Total Procedure Duration Time 0 hours 42 minutes 30 seconds Findings: An esophageal stent was found in the middle third of the esophagus and in the lower third of the esophagus. Stent removal was accomplished with a rat-toothed forceps. Verification of patient identification for the specimen was done. Estimated blood loss was minimal. One severe (stenosis; an endoscope cannot pass) stenosis was found 35 to 40 cm from the incisors. This stenosis measured 6 mm (inner diameter) x 5 cm (in length). The stenosis was traversed after dilation. A TTS dilator was passed through the scope. Dilation with a 12-13.5-15 mm balloon dilator was performed to 15 mm. The dilation site was examined and showed moderate mucosal disruption. Biopsies were taken with a cold forceps for histology. Verification of patient identification for the specimen was done. Estimated blood loss was minimal. There was evidence of an intact gastrostomy with a patent G-tube present in the gastric body. A large hiatal hernia was present. No gross lesions were noted in the duodenal bulb. Impression: - Pre-existing esophageal stent, removed. - Esophageal stenosis. Dilated. Biopsied. - Intact gastrostomy with a patent G-tube present. - Large hiatal hernia. - No gross lesions in the duodenal bulb. Recommendation: - [facility]. - Clear liquid diet today. - Continue present medications. - Await pathology results. Procedure Code(s): --- Professional --- 66706, Esophagogastroduodenoscopy, flexible, transoral; with removal of foreign body(s) 31589, 51, Esophagogastroduodenoscopy, flexible, transoral; with transendoscopic balloon dilation of esophagus (less than 30 mm diameter) 82162, 59, Esophagogastroduodenoscopy, flexible, transoral; with biopsy, single or multiple CPT copyright 2021 [employer]. All rights reserved. The codes documented in this report are preliminary and upon window shade cutter review may be revised to meet current compliance requirements. Francis Verma DO 07/04/2024 5:39:48 PM This report has been signed electronically. Number of Addenda: 0 Note Initiated On: 07/04/2024 3:00 PM
--- NOTE | 2024-07-04 17:40 | OP.CCLET_ITS ---
07/04/2024 Jay Kincaid Re : Upper GI endoscopy procedure for Fior Escamilla Dear Codi This procedure was performed on Thursday, July 04, 2024. My impressions and recommendations are as follows: Impressions : - Pre-existing esophageal stent, removed. - Esophageal stenosis. Dilated. Biopsied. - Intact gastrostomy with a patent G-tube present. - Large hiatal hernia. - No gross lesions in the duodenal bulb. Recommendations : - [facility]. - Clear liquid diet today. - Continue present medications. - Await pathology results. My findings are described in the full procedure note, which is enclosed. If I can be of further assistance, please feel free to contact me at . Sincerely, Francis Verma, 07/04/2024 5:39:48 PM This report has been signed electronically.
[2024-07-04] MEDS: Glycopyrrolate 0.2 MG/ML Vial 0.1 MG IV ×2 (18:31→21:03)
[2024-07-04] MEDS: Polyethylene Glycol 3350 17 GM PACKET GT (21:03)
[2024-07-04] MEDS: Cinacalcet HCl 30 MG Tablet 60 MG PO (21:03)
[2024-07-04] MEDS: LORazepam 1 MG Tablet 2 MG GT (21:07)
[2024-07-05] VITALS (13 sets, daily range): BP systolic 84–122; BP diastolic 53–77; PULSE 68–82; RESP 15–19; TEMP 36.3–36.6; O2SAT 94–100; BMI 22.4
[2024-07-05] MEDS: Glycopyrrolate 0.2 MG/ML Vial 0.1 MG IV ×6 (01:46→21:39)
[2024-07-05] MEDS: 0.9% Saline Lock 10 ML Syringe IV ×2 (01:47→05:09)
[2024-07-05 01:57] LABS: Absolute Lymphocyte Count 1.13 X10^3/uL (0.83-4.51); Absolute Neutrophil Count 6.7 X10^3/uL (2.0-7.7); Basophil# 0.03 X10^3/uL; Basophil% 0.3 % (0-1); Eosinophil# 0.26 X10^3/uL; Eosinophils% 2.9 % (0-5); Hematocrit 27.4 % (37-47); Hemoglobin 8.7 g/dL (12.0-15.0); Lymphocyte # 1.13 X10^3/ul (0.83-4.51); Lymphocyte % 12.7 % (19-41); Mean Corp Hgb Conc 31.8 g/dL (32-36); Mean Corpuscular Hgb 30.3 pg (27.0-32.0); Mean Corpuscular Volume 95.5 fL (81-99); Mean Platelet Vol. 9.5 fl (6.2-12.0); Monocyte# 0.67 X10^3/uL; Monocyte% 7.5 % (0-10); NRBC Flagged by Analyzer 0 % (0-5); Neutrophil # 6.72 X10^3/uL (2.7-7.7); Neutrophil % 75.8 % (47-70); Platelet Count 181 K/mm3 (150-450); RBC Distribution Width CV 15.3 % (11.6-14.6); RBC Distribution Width SD 53.1 fl (35.1-43.9); Red Blood Count 2.87 M/mm3 (4.2-5.4); White Blood Count 8.9 K/mm3 (4.4-11.0)
[2024-07-05 02:20] LABS: Anion Gap 5 (5-15); BUN 73 mg/dL (7-18); BUN/Creat Ratio 27.3 RATIO (10-20); Calcium,Total 7.8 mg/dL (8.5-10.1); Chloride 122 mmol/L (98-107); Creatinine, Serum 2.67 mg/dL (0.55-1.02); EST Glomerular Filtration Rate 19 mL/min (>60); Est Glom Filt Rate - Afr Amer 22 mL/min (>60); Estimated Creatinine Clearance 16.38 ml/min; Glucose 67 mg/dL (74-106); Potassium 4.4 mmol/L (3.5-5.1); Sodium Level 145 mmol/L (136-145)
[2024-07-05] MEDS: Dextrose 10%-Water 250 ML 999 ML IV ×2 (03:15→07:10)
[2024-07-05 03:23] LABS: Bedside Glucose 56 mg/dL (74-106)
[2024-07-05 04:08] LABS: Bedside Glucose 120 mg/dL (74-106)
[2024-07-05] MEDS: Pantoprazole Sodium 80 MG in 0.9% Normal Saline (100mL Bag) 80 ML 10 MG CONT INF (05:09)
[2024-07-05 07:25] LABS: Bedside Glucose 66 mg/dL (74-106)
[2024-07-05] MEDS: Lactated Ringers 1,000 ML 75 ML IV ×2 (07:27→21:39)
[2024-07-05 07:59] LABS: Bedside Glucose 84 mg/dL (74-106)
--- NOTE | 2024-07-05 09:20 | PN_ITS ---
Subjective Subjective Patient seen and examined. She had no active complaints and had an uneventful night. Review of systems is otherwise negative. She has remained hemodynamically stable. She had EGD yesterday. Objective Data Objective Data Vital Signs: Vital Signs Temp Pulse Resp BP Pulse Ox O2 Del Method O2 Flow Rate 97.9 F 70 15 112/61 99 Nasal Cannula 2 07/05/24 08:00 07/05/24 09:00 07/05/24 09:00 07/05/24 09:00 07/05/24 09:00 07/05/24 09:00 07/05/24 09:00 Oxygen Flow Rate (L/min) 2 Oxygen Delivery Method Nasal Cannula Weight: 134 lb 14.766 oz Body Mass Index (BMI) 22.4 Intake & Output: Intake and Output for Last 24 Hours 07/03/24 07/04/24 07/05/24 23:59 23:59 23:59 Intake Total 2250 / 2250 2757.5 / 2757.5 1563.67 / 1563.67 Output Total 3825 / 3825 1300 / 1300 Balance 2250 / 2250 -1067.5 / -1067.5 263.67 / 263.67 Lab / Micro Data 07/05/24 01:52 07/05/24 01:52 Labs: Laboratory Results - last 24 hr 07/04/24 11:50: Hgb 9.0 L, Hct 28.0 L 07/05/24 01:52: WBC 8.9, RBC 2.87 L, Hgb 8.7 L, Hct 27.4 L, MCV 95.5, MCH 30.3, MCHC 31.8 L, RDW Std Deviation 53.1 H, RDW Coeff of Lee 15.3 H, Plt Count 181, MPV 9.5, Immature Gran % (Auto) 0.800, Neut % (Auto) 75.8 H, Lymph % (Auto) 12.7 L, Mcleod % (Auto) 7.5, Eos % (Auto) 2.9, Baso % (Auto) 0.3, Absolute Neuts (auto) 6.7, Absolute Lymphs (auto) 1.13, Nucleated RBC % 0, Sodium 145, Potassium 4.4, Chloride 122 H, Carbon Dioxide 18.0 L, Anion Gap 5, BUN 73 H, Creatinine 2.67 H, Estim Creat Clear Calc 16.38, Est GFR (MDRD) Af Amer 22 L, Est GFR (MDRD) Non-Af 19 L, BUN/Creatinine Ratio 27.3 H, Glucose 67 L, Calcium 7.8 L 07/05/24 03:04: POC Glucose 56 L 07/05/24 03:49: POC Glucose 120 H 07/05/24 07:07: POC Glucose 66 L 07/05/24 07:42: POC Glucose 84 Micro: Microbiology 07/03/24 22:35 Stool Stool Occult Blood (LIZ) - Final Radiography Diagnostic Testing: Radiology Impression Abdomen/Pelvis CT 07/03/24 22:37 IMPRESSION: 1. G-tube in place. 2. Rectosigmoid colon distended with large amount of stool. Correlate for fecal impaction. No bowel obstruction. 3. Bladder distended and displaced by the stool distended rectum. Possibly a component of bladder outlet obstruction. 4. Bilateral nephrolithiasis without hydronephrosis. 5. Multifocal airspace disease in the lower lungs likely pneumonia. 6. Presumed esophageal stent partially included. Electronically Signed: Cece Oviedo MD at 23:55 EDT , Physical Exam Const alert, oriented x3, no apparent distress and average body habitus Constitutional Narrative: frail, thin General Appearance: cooperative HEENT normocephalic, head/scalp atraumatic, hearing grossly normal bilaterally and moist oral mucous membranes Eyes PERRL and EOMs intact bilaterally Neck no lymphadenopathy and supple Resp normal respiratory effort, no retractions, no use of accessory muscles and No clear to auscultation bilaterally Auscultation: crackles; Negative for rhonchi or wheezes Cardio regular rate, regular rhythm, S1 normal heart sound, S2 normal heart sound, no murmurs, no rub, no gallops and no clicks GI normal to inspection, nondistended, normoactive bowel sounds, soft to palpation, non-tender and non-distended GI Narrative: has a Fely feeding tube in situ Extremity normal capillary refill, no clubbing, cyanosis or edema and no calf tenderness General Extremity: no tenderness to palpation of joints or extremities Skin no rashes or lesions noted, no wounds, skin turgor normal, no jaundice, no petechiae and no mottling General Skin Exam: no breakdown Neuro oriented x3, CN's II-XII intact bilaterally, moves all extremities, no focal motor deficits, no sensory deficits noted and deep tendon reflexes 2+ bilaterally Neuro Narrative: Marked generalized weakness Speech: speech normal Motor Exam: strength 5/5 throughout and general weakness Psych thought process normal, cooperative and affect normal Appearance: appropriate Assessment & Plan Assessment/Plan (1) Constipation: (2) Acute hypotension: PLAN: Plan #Acute on chronic anemia due to GI bleed * admitted with a complaint of dark stools nd generalised weakness and tiredness * Hb was 8.6 on admission, and repeat after being hydrated with IVF was 6.6. * she is s/p transfusion of 2 units of PRBCs * Hb today is 8.7 * on protonix drip * she had EGD yesterday which showed pre existing esophageal stent, which ws removed, as well as esophageal stenosis, which ws dilated and biopsied; intact gastrostomy with a patent G tube pesent as well as large hiatal hernia. * GI on board. * CT abdomen and pelvis showed no evidence of bleeding. * * #History of esophageal stenosis * as above * #Hypotension: resolved. #CITLALY on CKD IIIb * likely due to hypotension and dehydration as well as possible bladder outlet obstruction in the setting of severe constipation. * being hydrated with IVF. Losartan on hold. * trend Cr * Cr was 4.11 on admission and is now down to 2.67; baseline Cr is ~ 1.8-1.9 * #Constipation * CT abdomen showed large amount of stool in rectosigmoid colon, with concern for impaction * has had bowel movements after she was started on enemas. * #Aspiration pneumonia * CT chest shwed evidence of multifocal airspace diseaes in the lower lungs. * wbc was elevated, though she was afebrile * she is on tube feeds by PEG tube, and also has esophageal stenosis so is at risk of aspiration. * on IV unasyn. * breathing treatment with bronchodilators * #Dysphagia due to esophageal stenosis: currently on tube feeds. #Debility and weakness due to mechanical falls * has been having multiple falls at home. * PT/OT on board * fall precautions * has been reluctant about placement in the past. * #Osteoporosis: stable #Bipolar disorder: on lamictal and lorazepam. #Dementia: on memantine #Hyperthyroidism:on methimazole #History of urinary incontinence: on oxybutynin which was held on admission. DVT prophylaxis: SCDs due to anemia Charges/Coding Visit Charges Inpatient E&M: 27368 Subs Hosp L2
--- NOTE | 2024-07-05 09:26 | NURSING ---
Patient off floor at this time for swallow study and upper GI series.
--- NOTE | 2024-07-05 09:30 | RAD_ITS ---
STUDY: UPPER GI SERIES REASON FOR EXAM: Female, 74 years old. Esophageal stricture. Limited study due to patient''s medical condition. FLUOROSCOPY TIME (if supplied): (89 seconds) minutes/seconds. 7.9 mGy. TECHNIQUE: SINGLE CONTRAST FLUOROSCOPIC IMAGES. COMPARISON: None. FINDINGS: The cervical esophagus demonstrates normal motility without aspiration. There is no stricture or extrinsic mass effect. No intraluminal polypoid mass is identified. The patient ingested Gastrografin. There is narrowing of the distal esophagus with trapping of the ingested 12 mm tablet of barium. The stomach distends well without mucosal fold thickening or mucosal ulceration. There is no intraluminal mass. The duodenal bulb is freely distensible without deformity or ulceration. The duodenal sweep is normal in position and caliber. RAD/Upper GI w/BA Swallow IMPRESSION: Narrowing of the distal esophagus with trapping of the 12 mm tablet of barium in the site of the narrowing. Electronically Signed: Cheng Schmitt MD at 11:01 EDT ,
--- NOTE | 2024-07-05 10:02 | SP.MBSS_ITS ---
Modified Barium Swallow Patient Information Study Date: 07/05/24 Study Time: 09:30 Direct Billable Minutes: 100 Total Minutes procedure & reportin Diagnosis: Aspiration PNA J69.0 Referring Physician: Roz Amador Reason for Referral: Objectively assess swallow function, assess risk for aspiration, and determine recommendations for least restrictive diet textures and compensatory strategies to improve safety of swallow. Medical History: PMH: Hx of Cdiff, Arthritis, Hx of renal disease, Hx of Mohs micrographic surgery for skin cancer, Hx of jejunostomy tube placement, HTN, Iron deficiency anemia, History of gastrostomy tube placement, Stenosis of esophagus, Erosive esophagitis, UTI, Severe malnutrition, Severe dehydration, Bipolar disorder, Diabetes insipidus, Thyroid disease, Bladder disease, Back pain, Dietary restriction, History of hiatal hernia, Gastric reflux, Former smoker, Generalized weakness, Unsteady gait, History of edema, Nondiabetic gastroparesis, Dysphagia, Tardive dyskinesia, Falls, HTN, CITLALY, PE (See EMR for full PMH). Patient presented to [facility] ED on the evening of 07/03/2020 for with a chief complaint of weakness. She has significant ecchymosis on bilateral knees. She was not complaining of any abdominal pain, nausea, or vomiting. She evidently has had a chronic cough over the last 3 weeks. She has a feeding tube it has been there for at least a year. She was admitted for management of acute on chronic anemia due to GI bleed, CITLALY on CKD IIIb, and debility and weakness due t o mechanical falls. There was also concern for aspiration PNA. Patient referred for ST consult to assess concerns for dysphagia. Patient reports poor appetite. She estimates consuming ~1/2 yogurt or jello with liquids and meds by mouth. She meets all of her nutritional needs via PEG per patient. She tries a bites of solids, such as jay jay crackers, every once in a while but reports poor oral clearance due to xerostomia. This RN ADMISSION department is familiar with the patient from [facility] of dysphagia. Most recent MBSS 03/06/24 revealed mild oropharyngeal dysphagia with esophageal dysphagia and recommended Puree Textures - MOIST, Thin Liquids; Comment: Recommended diet textures for pleasure feedings. If pt is sensing retention or experiencing s/s of reflux, will recommend pt STOP oral intake and utilize PEG tube to meet nutrition and hydration needs. Compensatory Strategies: Small Bites, Small Sips, Slow Rate, Alternate bites/solids and sips/liquids - 1:2 ratio, Sitting upright, Remain sitting upright for 30 minutes after PO intake; Supervision: 1:1 Close Supervision. EGD 07/04/2024 - Impression: - Pre-existing esophageal stent, removed. - Esophageal stenosis. Dilated. Biopsied. - Intact gastrostomy with a patent G- tube present. - Large hiatal hernia. - No gross lesions in the duodenal bulb. Recommendation: - [facility]. - Clear liquid diet today. - Continue present medications. - Await pathology results. Current Diet Ordered: NPO Dentition: Natural Teeth Mental Status: WNL (Able to follow commands for evaluation without difficulty) Respiratory Status: Oxygenating on 2L/M nasal cannula Penetration-Aspiration Scale Penetration-Aspiration Scale: OBJECTIVE ASSESSMENT OF SWALLOW FUNCTION (QUANTITATIVE ? PER TRIAL): PENETRATION / ASPIRATION SCALE (ENGLISH): 1 = does not enter airway 2 = enters airway/above vocal folds/ejected 3 = enters airway/above vocal folds/not ejected 4 = enters airway/contacts vocal folds/ejected 5 = enters airway/contacts vocal folds/not ejected 6 = enters airway/below vocal folds/ejected 7 = enters airway/below vocal folds/not ejected despite effort 8 = enters airway/below vocal folds/no effort VIDEOFLOROSCOPIC SCALE SCORE (ENGLISH): Grade I = aspiration of material that has penetrated into the laryngeal vestibule, intact cough reflex Grade II = aspiration < 10 % of the bolus, intact cough reflex Grade III = aspiration of < 10 % of the bolus, reduced cough reflex or aspiration of > 10 % of the bolus, intact cough reflex Grade IV = aspiration of > 10 % of the bolus, reduced cough reflex Penetration-Aspiration Scale Score Thin Liquid via teaspoon: Result: 2= enter airway/above vocal folds/ejected Thin Liquid via teaspoon Trial 2: Result: 2= enter airway/above vocal folds/ejected Thin Liquid via sequential sips: cup: Result: 2= enter airway/above vocal folds/ejected Thin Liquid via sequential sips: cup Trial 2: Result: 2= enter airway/above vocal folds/ejected Thin Liquid via sequential sips: cup Trial 3: Result: 2= enter airway/above vocal folds/ejected Comment: Esophageal screen - Mild retention in distal esophagus with min retrograde flow. Pudding via teaspoon: Result: 1= does not enter airway Comment: Esophageal screen - Pudding retention in distal esophagus - little to no emptying through the LES. Thin Liquid via single sip: straw: Result: 1= does not enter airway Comment: Esophageal screen - Thin liquid wash did not clear retention of pudding barium. Retention of thin barium in distal esophagus with retrograde flow to the middle esophagus. Oral Phase Labial Seal: Interlabial escape, no progression to anterior lip Tongue Control During Bolus Hold: Posterior escape of less than half of bolus Bolus Transport/Lingual Motion: Delayed initiation of tongue motion Oral Residue: Residue collection on oral structures Pharyngeal Phase Initiation of Pharyngeal Swallow: Bolus head in pyriforms Soft Palate Elevation: Trace column of contrast/air between soft palate and pharyngeal wall Laryngeal Elevation: Comp. Superior move thyroid cart w/comp. apprx arytenoid cart-epig pet Anterior Hyoid Excursion: Complete anterior movement Epiglottic Movement: Complete inversion Laryngeal Vestibule Closure at Height of Swallow: Incomplete; narrow column of air/contrast in laryngeal vestibule Pharyngeal Stripping Wave: Present - diminished Pharyngoesophageal Segment Opening: Parital distension and partial duration; parital obstruction of flow Tongue Base Retraction: Wide column of contrast between tongue base & post. pharyngeal wall Pharyngeal Residue: Collection of residue within or on pharyngeal structures Esophageal Phase Esophageal Clearance: Esophageal retention w/ retrograde flow below pharyngoesophageal seg. Diagnosis/Impression Diagnosis: Mild-mod Oropharyngeal dysphagia R13.12; Esophageal dysphagia R13.14 Impression: The oral phase is primarily marked by... -Mildly decreased bolus control evidenced by loss of <1/2 of liquids to the pyriforms prior to swallow onset. -Delayed tongue motion for A-P transport. -Piecemeal deglutition of pudding. -Did not trial cookie due to poor esophageal clearance of pudding despite liquid wash. The pharyngeal phase is primarily marked by... -Decreased pharyngeal stripping wave, UES opening/duration, and tongue base retraction with mild-moderate pharyngeal residues after the swallow. -Overall, good airway closure during the swallow with only trace laryngeal penetration of thin liquids during the swallow, which fully ejected. No aspiration observed during the study. The esophageal phase is primarily marked by... -Pudding retention in distal esophagus w/ little to no emptying through the LES. -Liquid wash did not effectively clear pudding from the esophagus, and patient h ad retention and retrograde flow of liquid wash. Due to recording error with MARIELA unit, portion of study did not record and save. RN ADMISSION unable to send complete study to PACS. Recommendations Diet: Thin Liquids (Clear liquids) Comment: Would not recommend advancement past thin liquids except for pleasure feeds due to poor esophageal clearance and chronic dysphagia secondary to esophageal stenosis. If sensation of retention, reflux, or regurgitation, please stop oral intake. PEG tube available to meet nutritional, hydration, and caloric needs. Compensatory Strategies: Small Sips, Slow Rate, Sitting upright and Remain sitting upright for 30 minutes after PO intake (60min after meals) Recommend Repeat Modified Barium Swallow: TBD Need for Skilled Speech Therapy Services: Yes Comment: Dysphagia POC initiated during this acute stay for 3-5X/week. POC to include the following: -Train the patient in strategies to decrease risk for reflux aspiration. -Train the patient in testing and preparation of recommended diet textures. -Train the patient in oropharyngeal strengthening to promote improved pharyngeal stripping wave, UES opening/duration, and tongue base retraction (Effortful, Yawn stretch, Shaker, Suzie). Goals added to ST Dysphagia POC: LTG 1 - The patient will consume least restrictive diet textures without overt s/s of aspiration or s/s of esophageal retention/discomfort independently to decrease risk for aspiration. STG 1 - The patient will complete an oropharyngeal exercise program independently to improve strength, ROM, and coordination of swallowing mechanism. STG 2 - The patient and family will demonstrate use or verbalize awareness of compensatory strategies independently to decrease risk for reflux aspiration. Recommended Referrals: GI Consult (Please continue to routinely follow with GI to manage esophageal dysphaia) and Dietitian Consult Education Completed: 1. Described result of evaluation. and 7. Pt requires further education on strategies & risks. Status Active ST Patient: Active Contact Information [facility] Speech Therapy:: Tresa Frank M.A. CCC-RN ADMISSION? Speech-Language Pathologist?? [facility] [address] [place] [address]? [email or web address]?? [phone]
[2024-07-05] MEDS: LORazepam 1 MG Tablet 2 MG GT ×4 (10:31→21:40)
[2024-07-05] MEDS: lamoTRIgine 100 MG Tablet 200 MG GT (10:32)
[2024-07-05] MEDS: Polyethylene Glycol 3350 17 GM PACKET GT ×2 (10:32→21:40)
[2024-07-05] MEDS: Cinacalcet HCl 30 MG Tablet 60 MG PO ×2 (10:32→21:47)
[2024-07-05] MEDS: Bisacodyl 10 MG Suppository RC (11:02)
--- NOTE | 2024-07-05 11:10 | PCM.PN.INT ---
Assessment & Plan Assessment/Plan (1) Anemia requiring transfusions: (2) Aspiration pneumonia: PLAN: Plan RECOMMENDATIONS: 1. Continue PPI therapy. 2. Dietary advancement per speech therapy. 3. Antibiotics to complete 7 days of therapy. 4. Continue to monitor blood counts and transfuse if hemoglobin drops below 7 g/dL. 5. Patient to continue to work with physical therapy. 6. Will sign off from a critical care perspective. Please call with any additional questions. IMPRESSIONS: 1. Hypotension Most likely multifactorial with underlying GI bleed and intravascular volume depletion contributing. The patient has been fluid resuscitated and has received transfusion of blood products. Her blood pressure is currently stable at the present time, without the need for vasopressor support. Will continue to monitor the patient clinically. The patient will be continued on antimicrobials over concerns for underlying aspiration pneumonia. Recommend completing 7 days of therapy. 2. Acute on chronic anemia/history of esophageal stenosis/gastroparesis The patient is status post upper endoscopy without significant source of bleeding identified. The patient was transfused blood products with appropriate improvement in her H&H. Continue PPI therapy and transfuse for hemoglobin less than 7 g/dL. 3. Suspected aspiration pneumonia The patient did have bibasilar airspace disease noted on presentation. Therefore, she has been initiated on appropriate antimicrobial therapy to cover for possible aspiration pneumonia. Her respiratory status is otherwise stable. 4. History of bipolar disorder/generalized debility/constipation Complicates care, management, recovery and prognosis. Continue home medications as indicated. Physical therapy to work with the patient. This note was generated with [employer] dictation software. It may contain incorrect words, spelling, and punctuation that were not noted in checking the note before signing. Subjective Subjective The patient was seen and examined at the bedside this morning. Events from the last 24 hours have been reviewed. The patient is currently afebrile, hemodynamically stable and maintaining appropriate oxygen saturations on 2 L/min via nasal cannula. Hemoglobin stable at 8.7 g/dL. Creatinine has improved to 2.67. The patient is preparing to work with physical therapy this morning. The patient tolerated upper endoscopy yesterday. Objective Data Objective Data The patient's most recent lab work, culture data and imaging studies have all been personally reviewed. Infectious workup has been unrevealing to date. Vital Signs: Vital Signs Temp Pulse Resp BP Pulse Ox O2 Del Method O2 Flow Rate 97.9 F 70 15 112/61 99 Nasal Cannula 2 07/05/24 08:00 07/05/24 09:00 07/05/24 09:00 07/05/24 09:00 07/05/24 09:00 07/05/24 09:00 07/05/24 09:00 Oxygen Flow Rate (L/min) 2 Oxygen Delivery Method Nasal Cannula Weight: 134 lb 14.766 oz Body Mass Index (BMI) 22.4 Intake & Output: Intake and Output for Last 24 Hours 07/03/24 07/04/24 07/05/24 23:59 23:59 23:59 Intake Total 2250 / 2250 2757.5 / 2757.5 1622.67 / 1622.67 Output Total 3825 / 3825 1900 / 1900 Balance 2250 / 2250 -1067.5 / -1067.5 -277.33 / -277.33 Lab / Micro Data Attestation: I reviewed the patient's lab results. 07/05/24 01:52 07/05/24 01:52 Labs: Laboratory Results - last 24 hr 07/04/24 11:50: Hgb 9.0 L, Hct 28.0 L 07/05/24 01:52: WBC 8.9, RBC 2.87 L, Hgb 8.7 L, Hct 27.4 L, MCV 95.5, MCH 30.3, MCHC 31.8 L, RDW Std Deviation 53.1 H, RDW Coeff of Lee 15.3 H, Plt Count 181, MPV 9.5, Immature Gran % (Auto) 0.800, Neut % (Auto) 75.8 H, Lymph % (Auto) 12.7 L, [place] % (Auto) 7.5, Eos % (Auto) 2.9, Baso % (Auto) 0.3, Absolute Neuts (auto) 6.7, Absolute Lymphs (auto) 1.13, Nucleated RBC % 0, Sodium 145, Potassium 4.4, Chloride 122 H, Carbon Dioxide 18.0 L, Anion Gap 5, BUN 73 H, Creatinine 2.67 H, Estim Creat Clear Calc 16.38, Est GFR (MDRD) Af Amer 22 L, Est GFR (MDRD) Non-Af 19 L, BUN/Creatinine Ratio 27.3 H, Glucose 67 L, Calcium 7.8 L 07/05/24 03:04: POC Glucose 56 L 07/05/24 03:49: POC Glucose 120 H 07/05/24 07:07: POC Glucose 66 L 07/05/24 07:42: POC Glucose 84 Micro: Microbiology 07/03/24 22:35 Stool Stool Occult Blood (LIZ) - Final Radiography Diagnostic Testing: Radiology Impression Abdomen/Pelvis CT 07/03/24 22:37 IMPRESSION: 1. G-tube in place. 2. Rectosigmoid colon distended with large amount of stool. Correlate for fecal impaction. No bowel obstruction. 3. Bladder distended and displaced by the stool distended rectum. Possibly a component of bladder outlet obstruction. 4. Bilateral nephrolithiasis without hydronephrosis. 5. Multifocal airspace disease in the lower lungs likely pneumonia. 6. Presumed esophageal stent partially included. Electronically Signed: Cece Oviedo MD at 23:55 EDT , Upper GI/Barium Swallow X-Ray 07/05/24 09:30 IMPRESSION: Narrowing of the distal esophagus with trapping of the 12 mm tablet of barium in the site of the narrowing. Electronically Signed: Cheng Schmitt MD at 11:01 EDT , Physical Exam Const alert and no apparent distress General Appearance: cooperative HEENT normocephalic and head/scalp atraumatic Eyes PERRL, EOMs intact bilaterally and conjunctivae normal Neck supple General: trachea midline Chest inspection of chest normal Resp normal respiratory effort Auscultation: diminished lung sounds; Negative for rales, rhonchi or wheezes Cardio regular rate and regular rhythm GI soft to palpation and non-tender GI Narrative: Saw button in place Extremity no clubbing, cyanosis or edema Skin no rashes or lesions noted Neuro CN's II-XII intact bilaterally, moves all extremities and no focal motor deficits Psych cooperative and affect normal Charges/Coding Visit Charges Inpatient E&M: 49735 Subs Hosp L2
[2024-07-05 15:29] LABS: Bedside Glucose 112 mg/dL (74-106)
--- NOTE | 2024-07-05 21:14 | EX.PCM.PN.GI ---
Subjective Subjective Patient underwent egd with stent removal and biopsy of the distal esophageal stricture. The biopsies are pending. She underwent UGI with gastrograffin and barium tablet. The barium tablet got stuck in the distal esophagus. She is not having any problems with liquids at this time. Objective Data Objective Data Vital Signs: Vital Signs Temp Pulse Resp BP Pulse Ox O2 Del Method O2 Flow Rate 97.8 F 77 18 100/62 94 Room Air 4 07/05/24 19:00 07/05/24 19:00 07/05/24 19:00 07/05/24 19:00 07/05/24 19:00 07/05/24 19:00 07/05/24 15:00 Oxygen Flow Rate (L/min) 4 Oxygen Delivery Method Room Air Weight: 134 lb 14.766 oz Body Mass Index (BMI) 22.4 Intake & Output: Intake and Output for Last 24 Hours 07/03/24 07/04/24 07/05/24 23:59 23:59 23:59 Intake Total 2250 / 2250 2757.5 / 2757.5 1772.67 / 1772.67 Output Total 3825 / 3825 3050 / 3050 Balance 2250 / 2250 -1067.5 / -1067.5 -1277.33 / -1277.33 Lab / Micro Data 07/05/24 01:52 07/05/24 01:52 Labs: Laboratory Results - last 24 hr 07/05/24 01:52: WBC 8.9, RBC 2.87 L, Hgb 8.7 L, Hct 27.4 L, MCV 95.5, MCH 30.3, MCHC 31.8 L, RDW Std Deviation 53.1 H, RDW Coeff of Lee 15.3 H, Plt Count 181, MPV 9.5, Immature Gran % (Auto) 0.800, Neut % (Auto) 75.8 H, Lymph % (Auto) 12.7 L, [place] % (Auto) 7.5, Eos % (Auto) 2.9, Baso % (Auto) 0.3, Absolute Neuts (auto) 6.7, Absolute Lymphs (auto) 1.13, Nucleated RBC % 0, Sodium 145, Potassium 4.4, Chloride 122 H, Carbon Dioxide 18.0 L, Anion Gap 5, BUN 73 H, Creatinine 2.67 H, Estim Creat Clear Calc 16.38, Est GFR (MDRD) Af Amer 22 L, Est GFR (MDRD) Non-Af 19 L, BUN/Creatinine Ratio 27.3 H, Glucose 67 L, Calcium 7.8 L 07/05/24 03:04: POC Glucose 56 L 07/05/24 03:49: POC Glucose 120 H 07/05/24 07:07: POC Glucose 66 L 07/05/24 07:42: POC Glucose 84 07/05/24 15:01: POC Glucose 112 H Micro: Microbiology 07/03/24 22:35 Stool Stool Occult Blood (LIZ) - Final Radiography Diagnostic Testing: Radiology Impression Upper GI/Barium Swallow X-Ray 07/05/24 09:30 IMPRESSION: Narrowing of the distal esophagus with trapping of the 12 mm tablet of barium in the site of the narrowing. Electronically Signed: Cheng Schmitt MD at 11:01 EDT , Physical Exam Const alert and no apparent distress General Appearance: cooperative HEENT normocephalic and head/scalp atraumatic Eyes PERRL, EOMs intact bilaterally and conjunctivae normal Neck supple General: trachea midline Chest inspection of chest normal Resp normal respiratory effort Auscultation: diminished lung sounds; Negative for rales, rhonchi or wheezes Cardio regular rate and regular rhythm GI soft to palpation and non-tender GI Narrative: Saw button in place Extremity no clubbing, cyanosis or edema Skin no rashes or lesions noted Neuro CN's II-XII intact bilaterally, moves all extremities and no focal motor deficits Psych cooperative and affect normal Assessment & Plan Assessment/Plan (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 She is also on high dose Ativan as an out patient that controls her depression (2) Esophageal stricture: PLAN: Biopsies are pending. Stent was removed as it was contributing to upper GI bleeding. (3) Gastric paresis: PLAN: PEG tube has been switched to a PEG tube. She can still ingest liquids and some soft foods. (4) Gastroparesis: (5) GI bleed: PLAN: No signs of bleeding at this time after APC treatment. Await biopsies before deciding to replace the stent. Charges/Coding Visit Charges Inpatient E&M: 58374 [facility] [[email or web address]] Hosp L3
[2024-07-05] MEDS: Pantoprazole Sodium 40 MG in 0.9% Normal Saline (100mL MB+) 100 ML 330 MG IV (21:40)
[2024-07-05] MEDS: Ampicillin/Sulbactam 3 GM in 0.9% Normal Saline (100mL MB+) 100 ML IV (21:40)
[2024-07-06] VITALS: BP 101/62; PULSE 69; RESP 18; TEMP 36.8; O2SAT 93
[2024-07-06 01:00] VITALS: BP 114/67; PULSE 68; RESP 16; TEMP 36.6; O2SAT 96
[2024-07-06] MEDS: Glycopyrrolate 0.2 MG/ML Vial 0.1 MG IV ×6 (02:45→21:43)
[2024-07-06 05:20] VITALS: BMI 22.6
[2024-07-06] MEDS: Lactated Ringers 1,000 ML 75 ML IV ×2 (05:46→18:12)
[2024-07-06 06:21] LABS: Absolute Lymphocyte Count 1.18 X10^3/uL (0.83-4.51); Absolute Neutrophil Count 5.1 X10^3/uL (2.0-7.7); Basophil# 0.04 X10^3/uL; Basophil% 0.5 % (0-1); Eosinophil# 0.38 X10^3/uL; Eosinophils% 5.1 % (0-5); Hematocrit 29.5 % (37-47); Hemoglobin 9.3 g/dL (12.0-15.0); Lymphocyte # 1.18 X10^3/ul (0.83-4.51); Lymphocyte % 15.7 % (19-41); Mean Corp Hgb Conc 31.5 g/dL (32-36); Mean Corpuscular Hgb 30.5 pg (27.0-32.0); Mean Corpuscular Volume 96.7 fL (81-99); Mean Platelet Vol. 9.6 fl (6.2-12.0); Monocyte# 0.79 X10^3/uL; Monocyte% 10.5 % (0-10); NRBC Flagged by Analyzer 0 % (0-5); Neutrophil # 5.07 X10^3/uL (2.7-7.7); Neutrophil % 67.4 % (47-70); Platelet Count 230 K/mm3 (150-450); RBC Distribution Width CV 15.3 % (11.6-14.6); RBC Distribution Width SD 53.4 fl (35.1-43.9); Red Blood Count 3.05 M/mm3 (4.2-5.4); White Blood Count 7.5 K/mm3 (4.4-11.0)
[2024-07-06 06:59] LABS: Anion Gap 5 (5-15); BUN 55 mg/dL (7-18); BUN/Creat Ratio 21.9 RATIO (10-20); Calcium,Total 8.3 mg/dL (8.5-10.1); Chloride 125 mmol/L (98-107); Creatinine, Serum 2.51 mg/dL (0.55-1.02); EST Glomerular Filtration Rate 20 mL/min (>60); Est Glom Filt Rate - Afr Amer 24 mL/min (>60); Estimated Creatinine Clearance 17.43 ml/min; Glucose 91 mg/dL (74-106); Potassium 3.9 mmol/L (3.5-5.1); Sodium Level 152 mmol/L (136-145)
[2024-07-06 07:00] VITALS: BP 110/79; PULSE 66; PULSE 72; RESP 18; TEMP 36.5; TEMP 36.7; O2SAT 100; O2SAT 98
--- NOTE | 2024-07-06 08:00 | PCM.PN.HOSP ---
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) Hypotension, unspecified (07/04/24) Pneumonitis due to inhalation of food and vomit (07/04/24) Esophageal obstruction (07/04/24) Gastroparesis (07/04/24) Fecal impaction (07/04/24) Constipation, unspecified (07/04/24) Gastrointestinal hemorrhage, unspecified (07/04/24) Acute kidney failure, unspecified (07/04/24) Bladder-neck obstruction (07/04/24) Subjective Subjective would like to eat more Objective Data Objective Data Vital Signs: Vital Signs Temp Pulse Resp BP Pulse Ox O2 Del Method O2 Flow Rate 36.7 C 66 18 110/79 98 Nasal Cannula 2 07/06/24 07:00 07/06/24 07:00 07/06/24 07:00 07/06/24 07:00 07/06/24 07:00 07/06/24 07:00 07/06/24 07:00 Oxygen Flow Rate (L/min) 2 Oxygen Delivery Method Nasal Cannula Weight: 61.8 kg Body Mass Index (BMI) 22.6 Intake & Output: Intake and Output for Last 24 Hours 07/04/24 07/05/24 07/06/24 23:59 23:59 23:59 Intake Total 2757.5 / 2757.5 3244.67 / 3494.67 1438.75 / 1438.75 Output Total 3825 / 3825 3050 / 3800 1450 / 1450 Balance -1067.5 / -1067.5 194.67 / -305.33 -11.25 / -11.25 Lab / Micro Data 07/06/24 05:25 07/06/24 05:25 Labs: Laboratory Results - last 24 hr 07/05/24 15:01: POC Glucose 112 H 07/06/24 05:25: WBC 7.5, RBC 3.05 L, Hgb 9.3 L, Hct 29.5 L, MCV 96.7, MCH 30.5, MCHC 31.5 L, RDW Std Deviation 53.4 H, RDW Coeff of Lee 15.3 H, Plt Count 230, MPV 9.6, Immature Gran % (Auto) 0.800, Neut % (Auto) 67.4, Lymph % (Auto) 15.7 L, [place] % (Auto) 10.5 H, Eos % (Auto) 5.1 H, Baso % (Auto) 0.5, Absolute Neuts (auto) 5.1, Absolute Lymphs (auto) 1.18, Nucleated RBC % 0, Sodium 152 H, Potassium 3.9, Chloride 125 H, Carbon Dioxide 22.0, Anion Gap 5, BUN 55 H, Creatinine 2.51 H, Estim Creat Clear Calc 17.43, Est GFR (MDRD) Af Amer 24 L, Est GFR (MDRD) Non-Af 20 L, BUN/Creatinine Ratio 21.9 H, Glucose 91, Calcium 8.3 L Micro: Microbiology 07/03/24 22:35 Stool Stool Occult Blood (LIZ) - Final Radiography Diagnostic Testing: Radiology Impression Upper GI/Barium Swallow X-Ray 07/05/24 09:30 IMPRESSION: Narrowing of the distal esophagus with trapping of the 12 mm tablet of barium in the site of the narrowing. Electronically Signed: Cheng Schmitt MD at 11:01 EDT , Physical Exam Const alert and no apparent distress Resp normal respiratory effort, no retractions and no use of accessory muscles Cardio regular rate, regular rhythm, S1 normal heart sound and S2 normal heart sound GI normal to inspection, nondistended, normoactive bowel sounds, soft to palpation, non-tender and non-distended Extremity normal to inspection, full ROM and no clubbing, cyanosis or edema Neuro Sensorium / Orientation: awake and alert Assessment & Plan Assessment/Plan (1) GI bleed: PLAN: Plan GI bleed 2/2 bleeding from esophageal stent change protonix to PO. Acute blood loss anemia 2/2 GI bleed. Hg went down to 6.6. Since improved to 9. s/p 2 units PRBCs Esophageal stenosis stent removed as was contributing to GI bleed follow up with GI as outpt. Patient already with PEG tube. Was changed over in April due to erosion from the prior PEG tube. Nutrition recommends: Vital AF 1.2 100 cc/h x 12 QHS w 100 water flush eery 4 hours and diet as able. Aspiration pneumonia on amp/SB Dysphagia 2/2 esophageal stenosis MBS and ST recommending ONLY thin liquids. Hypotension: 2/2 ABLA resolve transfer out of ICU ([facility] signed off 07/05) [place] improving. Creatinine peaked at 4.11, down to 2.5. Baseline around 1.9 Hypernatremia will give 0.45% saline. monitor VTE prophylaxis: SCDs. Transfer out of ICU. Charges/Coding Visit Charges Inpatient E&M: 48906 Subs Hosp L3
[2024-07-06] MEDS: 0.45% Normal Saline 1,000 ML 125 ML IV (10:12)
[2024-07-06] MEDS: Methimazole 5 MG Tablet GT (10:16)
[2024-07-06] MEDS: Cinacalcet HCl 30 MG Tablet 60 MG PO ×2 (10:17→21:43)
[2024-07-06] MEDS: Polyethylene Glycol 3350 17 GM PACKET GT ×2 (10:17→21:43)
[2024-07-06] MEDS: lamoTRIgine 100 MG Tablet 200 MG GT (10:17)
[2024-07-06] MEDS: 0.9% Saline Lock 10 ML Syringe IV ×2 (10:20→21:47)
[2024-07-06] MEDS: Bisacodyl 10 MG Suppository RC (10:20)
[2024-07-06] MEDS: LORazepam 1 MG Tablet 2 MG GT ×4 (10:20→21:43)
[2024-07-06] MEDS: Pantoprazole Sodium 40 MG Tablet PO ×2 (10:21→21:43)
--- NOTE | 2024-07-06 10:45 | CASEMGMT ---
Addendum entered by Debi Jacobs 07/06/24 14:34: ALEXEY MARTIN received call back from [facility] and they are able to accept patient. RN CM to update [facility] of discharge for planned start of care. RN CM updated patient. Patient had no further questions or concerns. Original Note: ALEXEY MARTIN reviewed progress with therapy, patient ambulated 30ft contact guard. ALEXEY CM in to discuss needs at discharge. RN VERONICA discussed progress with therapy and possible HHC at discharge. Patient is agreeable to [facility] and prefers [facility] as they are already seeing her in the home for therapy, declined list for HHC. ALEXEY MARTIN discussed assisted, PT/OT/ST, and SW with [facility], patient agreeable. Patient denied further needs or concerns at this time. ALEXEY MARTIN called and made referral to [facility], awaiting acceptance. CM will continue to follow this patient and plan for a safe discharge.
[2024-07-06 11:36] VITALS: O2SAT 94
[2024-07-06 13:00] VITALS: BP 121/79; PULSE 78; RESP 18; TEMP 36.7; O2SAT 97
--- NOTE | 2024-07-06 15:18 | CHAPLAIN ---
Type of Pastoral Visit _x__ Initial Visit ___ Follow-up Visit ___ On-call Visit ___ General Patient Visit ___ Spiritual Assessment ___ Family Conference ___ Bereavement ___ Rapid Response ___ Code Blue ___ Other (describe below) Pastoral Care Referral From _x__ Patient ___ Family ___ Nurse ___ Physician ___ Ribbon Inker ___ 411 Directory Assistance Operator ___ Other (describe below) Sacrament/Intervention _x__ Active listening ___ Anointing ___ Congregational ___ Bereavement ___ Communion _x__ Leeanne exploration ___ ___ Life review _x__ Prayer ___ Reconciliation ___ Sacrament of Sick ___ Supportive presence ___ Wedding ___ Other (describe below) Pastoral Comments patient gives update since her last admission; pt speaks of 's hip surgery recently and their need for extra assistance; pt states that her anabaptism readings each day help her with spiritual support and guidance; pt acknowledges good care from hospital, family assistance, and hope; pt welcomes presence and prayer
--- NOTE | 2024-07-06 17:52 | PN.GI_ITS ---
Subjective Subjective Patient states that she is hungry and would like to eat more. Biopsies from distal esophagus stricture, biopsy: Gastroesophageal junction mucosa with mild chronic inflammation. Fibrinopurulent material. No evidence of goblet cell metaplasia. Occasional fungal organisms consistent with Jessi species Objective Data Objective Data Vital Signs: Vital Signs Temp Pulse Resp BP Pulse Ox O2 Del Method O2 Flow Rate 98.0 F 78 18 121/79 H 97 Nasal Cannula 2 07/06/24 13:00 07/06/24 13:00 07/06/24 13:00 07/06/24 13:00 07/06/24 13:00 07/06/24 14:00 07/06/24 14:00 Oxygen Flow Rate (L/min) 2 Oxygen Delivery Method Nasal Cannula Weight: 136 lb 3.931 oz Body Mass Index (BMI) 22.6 Intake & Output: Intake and Output for Last 24 Hours 07/04/24 07/05/24 07/06/24 23:59 23:59 23:59 Intake Total 2757.5 / 2757.5 3244.67 / 3494.67 2271.25 / 2271.25 Output Total 3825 / 3825 3050 / 3800 1900 / 1900 Balance -1067.5 / -1067.5 194.67 / -305.33 371.25 / 371.25 Lab / Micro Data 07/06/24 05:25 07/06/24 05:25 Labs: Laboratory Results - last 24 hr 07/06/24 05:25: WBC 7.5, RBC 3.05 L, Hgb 9.3 L, Hct 29.5 L, MCV 96.7, MCH 30.5, MCHC 31.5 L, RDW Std Deviation 53.4 H, RDW Coeff of Lee 15.3 H, Plt Count 230, MPV 9.6, Immature Gran % (Auto) 0.800, Neut % (Auto) 67.4, Lymph % (Auto) 15.7 L , [place] % (Auto) 10.5 H, Eos % (Auto) 5.1 H, Baso % (Auto) 0.5, Absolute Neuts (auto) 5.1, Absolute Lymphs (auto) 1.18, Nucleated RBC % 0, Sodium 152 H, Potassium 3.9, Chloride 125 H, Carbon Dioxide 22.0, Anion Gap 5, BUN 55 H, C reatinine 2.51 H, Estim Creat Clear Calc 17.43, Est GFR (MDRD) Af Amer 24 L, Est GFR (MDRD) Non-Af 20 L, BUN/Creatinine Ratio 21.9 H, Glucose 91, Calcium 8.3 L Micro: Microbiology 07/04/24 00:11 Blood Culture (Wb) - Anticubital Left Blood Culture - Preliminary No growth in 48 hours. 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 She is also on high dose Ativan as an out patient that controls her depression (2) Esophageal stricture: PLAN: Biopsies are benign. I will see if we can put another stent in her esophagus tomorrow. N.p.o. past midnight. (3) Gastric paresis: PLAN: PEG tube has been switched to a PEG tube. She can still ingest liquids and some soft foods. (4) Gastroparesis: (5) GI bleed: PLAN: No signs of bleeding at this time after APC treatment. Await biopsies before deciding to replace the stent. Charges/Coding Visit Charges Inpatient E&M: 55420 Subs Hosp L3
[2024-07-06] MEDS: Vital AF 1.2 Cal Liquid 1,000 ML GT (18:54)
[2024-07-06] MEDS: Ampicillin/Sulbactam 3 GM in 0.9% Normal Saline (100mL MB+) 100 ML IV (21:44)
[2024-07-06 22:00] VITALS: BP 125/80; PULSE 71; RESP 16; TEMP 36.6; O2SAT 98
[2024-07-07] MEDS: Glycopyrrolate 0.2 MG/ML Vial 0.1 MG IV ×6 (02:15→21:35)
[2024-07-07] MEDS: 0.9% Saline Lock 10 ML Syringe IV ×2 (02:16→06:34)
[2024-07-07 02:19] VITALS: BP 131/89; PULSE 84; RESP 18; TEMP 36.4; O2SAT 97
[2024-07-07 04:59] LABS: Absolute Lymphocyte Count 1.03 X10^3/uL (0.83-4.51); Absolute Neutrophil Count 7.6 X10^3/uL (2.0-7.7); Basophil# 0.04 X10^3/uL; Basophil% 0.4 % (0-1); Eosinophil# 0.33 X10^3/uL; Eosinophils% 3.3 % (0-5); Hematocrit 34.1 % (37-47); Hemoglobin 10.7 g/dL (12.0-15.0); Lymphocyte # 1.03 X10^3/ul (0.83-4.51); Lymphocyte % 10.3 % (19-41); Mean Corp Hgb Conc 31.4 g/dL (32-36); Mean Corpuscular Hgb 30.7 pg (27.0-32.0); Mean Corpuscular Volume 97.7 fL (81-99); Mean Platelet Vol. 9.4 fl (6.2-12.0); Monocyte# 0.95 X10^3/uL; Monocyte% 9.5 % (0-10); NRBC Flagged by Analyzer 0 % (0-5); Neutrophil # 7.55 X10^3/uL (2.7-7.7); Neutrophil % 75.9 % (47-70); Platelet Count 268 K/mm3 (150-450); RBC Distribution Width CV 15.6 % (11.6-14.6); RBC Distribution Width SD 55.1 fl (35.1-43.9); Red Blood Count 3.49 M/mm3 (4.2-5.4)
[2024-07-07 05:07] VITALS: BMI 23.8
[2024-07-07 05:21] LABS: Anion Gap 5 (5-15); BUN 49 mg/dL (7-18); BUN/Creat Ratio 22.3 RATIO (10-20); Chloride 121 mmol/L (98-107); EST Glomerular Filtration Rate 23 mL/min (>60); Est Glom Filt Rate - Afr Amer 28 mL/min (>60); Estimated Creatinine Clearance 19.88 ml/min; Glucose 116 mg/dL (74-106); Sodium Level 149 mmol/L (136-145)
[2024-07-07 05:23] LABS: Bedside Glucose 114 mg/dL (74-106)
[2024-07-07] MEDS: Lactated Ringers 1,000 ML 75 ML IV ×2 (06:31→18:06)
[2024-07-07] MEDS: Scopolamine 1mg/72hr Patch 1 PATCH TD (06:33)
--- NOTE | 2024-07-07 06:57 | PN.HOSP_ITS ---
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) Hypotension, unspecified (07/04/24) Pneumonitis due to inhalation of food and vomit (07/04/24) Esophageal obstruction (07/04/24) Gastroparesis (07/04/24) Fecal impaction (07/04/24) Constipation, unspecified (07/04/24) Gastrointestinal hemorrhage, unspecified (07/04/24) Acute kidney failure, unspecified (07/04/24) Bladder-neck obstruction (07/04/24) Subjective Subjective Vomited brown/black material over herself. Abdomen more distended. Objective Data Objective Data Vital Signs: Vital Signs Temp Pulse Resp BP Pulse Ox O2 Del Method O2 Flow Rate 36.4 C L 84 18 131/89 H 97 Nasal Cannula 2 07/07/24 02:19 07/07/24 02:19 07/07/24 02:19 07/07/24 02:19 07/07/24 02:19 07/07/24 02:19 07/07/24 02:19 Oxygen Flow Rate (L/min) 2 Oxygen Delivery Method Nasal Cannula Weight: 64.8 kg Body Mass Index (BMI) 23.8 Intake & Output: Intake and Output for Last 24 Hours 07/05/24 07/06/24 07/07/24 23:59 23:59 23:59 Intake Total 3244.67 / 3494.67 3943.25 / 3943.25 923.75 / 923.75 Output Total 3050 / 3800 1900 / 1900 Balance 194.67 / -305.33 2043.25 / 2043.25 923.75 / 923.75 Lab / Micro Data 07/07/24 03:55 07/07/24 03:55 Labs: Laboratory Results - last 24 hr 07/06/24 05:25: Sodium 152 H, Potassium 3.9, Chloride 125 H, Carbon Dioxide 22.0, Anion Gap 5, BUN 55 H, Creatinine 2.51 H, Estim Creat Clear Calc 17.43, E st GFR (MDRD) Af Amer 24 L, Est GFR (MDRD) Non-Af 20 L, BUN/Creatinine Ratio 21.9 H, Glucose 91, Calcium 8.3 L 07/07/24 00:52: POC Glucose 114 H 07/07/24 03:55: WBC 10.0, RBC 3.49 L, Hgb 10.7 L, Hct 34.1 L, MCV 97.7, MCH 30.7, MCHC 31.4 L, RDW Std Deviation 55.1 H, RDW Coeff of Lee 15.6 H, Plt Count 268, MPV 9.4, Immature Gran % (Auto) 0.600, Neut % (Auto) 75.9 H, Lymph % (Auto) 10.3 L, [place] % (Auto) 9.5, Eos % (Auto) 3.3, Baso % (Auto) 0.4, Absolute Neuts (auto) 7.6, Absolute Lymphs (auto) 1.03, Nucleated RBC % 0, Sodium 149 H, Potassium 4.0, Chloride 121 H, Carbon Dioxide 23.0, Anion Gap 5, BUN 49 H, C reatinine 2.20 H, Estim Creat Clear Calc 19.88, Est GFR (MDRD) Af Amer 28 L, Est GFR (MDRD) Non-Af 23 L, BUN/Creatinine Ratio 22.3 H, Glucose 116 H, Calcium 8.0 L Micro: Microbiology 07/04/24 00:11 Blood Culture (Wb) - Anticubital Left Blood Culture - Preliminary No growth in 48 hours. 07/03/24 22:35 Stool Stool Occult Blood (LIZ) - Final Physical Exam Const alert and no apparent distress HEENT head/scalp atraumatic and moist oral mucous membranes Resp normal respiratory effort, no retractions, no use of accessory muscles and clear to auscultation bilaterally Cardio regular rate, regular rhythm, S1 normal heart sound and S2 normal heart sound Assessment & Plan Assessment/Plan (1) GI bleed: PLAN: Plan GI bleed * 2/2 bleeding from esophageal stent * change protonix to PO. Acute blood loss anemia * 2/2 GI bleed. Hg went down to 6.6. Since improved to 10.7 * s/p 2 units PRBCs Esophageal stenosis * stent removed as was contributing to GI bleed. GI to reattempt stent replacement. * follow up with GI as outpt. * Patient already with PEG tube. Was changed over in April due to erosion from the prior PEG tube. Nutrition recommends: Vital AF 1.2 100 cc/h x 12 QHS w 100 water flush eery 4 hours and diet as able. Aspiration pneumonia * on amp/SB Dysphagia * 2/2 esophageal stenosis * MBS and ST recommending ONLY thin liquids. Hypotension: * 2/2 ABLA * resolve * transfer out of ICU ([facility] signed off 07/05) [place] * improving. Creatinine peaked at 4.11, down to 2.2. Baseline around 1.9 Hypernatremia * will give 0.45% saline. * monitor Abdominal distention * concern for SBO/ileus. * Check abd xray VTE prophylaxis: SCDs. Charges/Coding Visit Charges Inpatient E&M: 62260 Subs Hosp L2
[2024-07-07 07:45] VITALS: O2SAT 96
[2024-07-07 08:20] VITALS: BP 150/94; PULSE 86; RESP 24; TEMP 36.4; O2SAT 100
[2024-07-07] MEDS: Cinacalcet HCl 30 MG Tablet 60 MG PO ×2 (09:42→21:40)
[2024-07-07] MEDS: lamoTRIgine 100 MG Tablet 200 MG GT (09:42)
[2024-07-07] MEDS: Bisacodyl 10 MG Suppository RC (09:45)
[2024-07-07] MEDS: LORazepam 1 MG Tablet 2 MG GT ×2 (09:45→21:42)
[2024-07-07 10:00] VITALS: O2SAT 98
--- NOTE | 2024-07-07 14:08 | CASEMGMT ---
ALEXEY MARTIN Note: Amanda @ [facility] made aware pt is not discharging today. Shanna ARMANDO RN CM
--- NOTE | 2024-07-07 14:10 | RAD_ITS ---
STUDY: X-RAY - ABDOMEN/PELVIS REASON FOR EXAM: Female, 74 years old. Abdominal distention and diarrhea. TECHNIQUE: 1 COMPARISON: None. FINDINGS: Gaseous distention of the colon especially the rectosigmoid colon. A large amount of fecal material is seen in the rectosigmoid colon. Gas is also seen within small bowel loops. Findings suggestive of right hydronephrosis. Normal soft tissue structures. There are diffuse degenerative changes of the visualized lumbar spine. RAD/Abdomen Single View (Portable) IMPRESSION: Large amount of fecal material is seen in the rectosigmoid colon with distention. Electronically Signed: Cheng Schmitt MD at 14:55 EDT ,
[2024-07-07] MEDS: Ondansetron 4 MG/2 ML Vial IV (14:12)
[2024-07-07 14:19] VITALS: BP 141/90; PULSE 92; RESP 18; TEMP 36.6; O2SAT 97; BMI 23.8
--- NOTE | 2024-07-07 16:59 | PN.GI_ITS ---
Subjective Subjective Patient remains on liquids. She does complain of some abdominal distention and did have a large episode of vomiting today. Objective Data Objective Data Vital Signs: Vital Signs Temp Pulse Resp BP Pulse Ox O2 Del Method O2 Flow Rate 97.8 F 92 18 141/90 H 97 Room Air 2 07/07/24 14:19 07/07/24 14:19 07/07/24 14:19 07/07/24 14:19 07/07/24 14:19 07/07/24 14:19 07/07/24 07:45 Oxygen Flow Rate (L/min) 2 Oxygen Delivery Method Room Air Weight: 142 lb 13.753 oz Body Mass Index (BMI) 23.8 Intake & Output: Intake and Output for Last 24 Hours 07/05/24 07/06/24 07/07/24 23:59 23:59 23:59 Intake Total 3244.67 / 3494.67 3943.25 / 3943.25 973.75 / 973.75 Output Total 3050 / 3800 1900 / 1900 100 / 100 Balance 194.67 / -305.33 2043.25 / 2043.25 873.75 / 873.75 Lab / Micro Data 07/07/24 03:55 07/07/24 03:55 Labs: Laboratory Results - last 24 hr 07/07/24 00:52: POC Glucose 114 H 07/07/24 03:55: WBC 10.0, RBC 3.49 L, Hgb 10.7 L, Hct 34.1 L, MCV 97.7, MCH 30.7, MCHC 31.4 L, RDW Std Deviation 55.1 H, RDW Coeff of Lee 15.6 H, Plt Count 268, MPV 9.4, Immature Gran % (Auto) 0.600, Neut % (Auto) 75.9 H, Lymph % (Auto) 10.3 L, [place] % (Auto) 9.5, Eos % (Auto) 3.3, Baso % (Auto) 0.4, Absolute Neuts (auto) 7.6, Absolute Lymphs (auto) 1.03, Nucleated RBC % 0, Sodium 149 H, Potassium 4.0, Chloride 121 H, Carbon Dioxide 23.0, Anion Gap 5, BUN 49 H, C reatinine 2.20 H, Estim Creat Clear Calc 19.88, Est GFR (MDRD) Af Amer 28 L, Est GFR (MDRD) Non-Af 23 L, BUN/Creatinine Ratio 22.3 H, Glucose 116 H, Calcium 8.0 L Micro: Microbiology 07/04/24 00:11 Blood Culture (Wb) - Anticubital Left Blood Culture - Preliminary No growth in 48 hours. 07/03/24 22:35 Stool Stool Occult Blood (LIZ) - Final Radiography Diagnostic Testing: Radiology Impression KUB X-Ray 07/07/24 14:10 IMPRESSION: Large amount of fecal material is seen in the rectosigmoid colon with distention. Electronically Signed: Cheng Schmitt MD at 14:55 EDT , Physical Exam Const alert and no apparent distress HEENT head/scalp atraumatic and moist oral mucous membranes Resp normal respiratory effort, no retractions, no use of accessory muscles and clear to auscultation bilaterally Cardio regular rate, regular rhythm, S1 normal heart sound and S2 normal heart sound Assessment & Plan Assessment/Plan (1) Constipation: (2) Acute hypotension: PLAN: Plan 74-year-old with multiple comorbidities including dementia, severe bipolar disorder, severe gastroparesis status post PEG tube placement acute on chronic anemia due to GI bleed, benign esophageal stricture status post esophageal stent placement who presents with shortness of breath and fatigue and discovered to be significantly anemic. She underwent EGD and showed improvement of esophageal stenosis except to the distal esophagus. An esophageal stent was removed and biopsies were taken. Biopsies were positive for Jessi species. She underwent a barium swallow and was discovered to have no problems with liquids but the barium pill did get stuck at the GE junction. * Recommendation: Repeat EGD in the morning to see if some of the swelling has gone down and to see how the area that was cauterized looks. Patient may need repeat stenting in the future, but it all depends on how much she really wants to eat. * Constipation * CT abdomen and KUB showed large amount of stool in rectosigmoid colon, with concern for impaction * I wanted to give 3 tapwater enemas and GoLytely through patient's PEG. However I was alerted that she is possibly vomiting stool. I will order CT scan abdomen pelvis and we will place the PEG to suction. Aspiration pneumonia * CT chest showed evidence of multifocal airspace diseases in the lower lungs. * wbc was elevated, though she was afebrile * she is on tube feeds by PEG tube, and also has esophageal stenosis so is at risk of aspiration. * on IV unasyn. * breathing treatment with bronchodilators * Charges/Coding Visit Charges Inpatient E&M: 27158 Subs Hosp L3
--- NOTE | 2024-07-07 17:11 | CT_ITS ---
STUDY: CT ABDOMEN AND PELVIS WITHOUT CONTRAST REASON FOR EXAM: Female, 74 years old. poossible bowel obstruction RADIATION DOSAGE (If Supplied By Facility): CTDIvol = ( 7.56 ) mGy, DLP = ( 359.02 ) mGycm TECHNIQUE: Transaxial images were obtained from the dome of the diaphragm to the symphysis pubis without oral contrast, and without intravenous contrast. Sagittal and coronal images were reconstructed. Individualized dose optimization techniques were used for this CT. The protocol utilizes one or more of the following dose reduction techniques: automated exposure control, adjustment of mA and/or kV according to patient size,and/or use of iterative reconstruction technique. COMPARISON: CT abdomen and pelvis July 03, 2024 FINDINGS: Small bilateral pleural effusions and bibasilar airspace disease. Lipoma measuring up to 2.3 cm partially imaged within the right atrium at the edge of the [id number]. Normal liver. Normal gallbladder and extrahepatic biliary system. Normal spleen. Normal pancreas. Normal bilateral adrenal glands. Multiple punctate bilateral nonobstructing nephroliths. Normal left kidney. PEG tube in the gastric lumen. Normal small intestine. Colon remains distended with gas and multiple air-fluid levels. Increased stool in the colon. Appendix is not identified. Calcified plaque along the aorta and its branches. Normal inferior vena cava. Normal retroperitoneum. Normal urinary bladder. Normal abdominal wall. Moderate dextroconvex scoliosis. Spondylosis. CT/Abdomen/Pelvis without Cont IMPRESSION: Increased Colonic ileus and increased stool. No evidence of obstruction. Other incidental findings as noted above. Electronically Signed: Francis Corona MD at 19:37 EDT ,
[2024-07-07] MEDS: LORazepam 2 MG/ML Syringe 0.5 MG IV (18:05)
[2024-07-07] MEDS: Ampicillin/Sulbactam 3 GM in 0.9% Normal Saline (100mL MB+) 100 ML IV (21:39)
[2024-07-07] MEDS: Polyethylene Glycol 3350 17 GM PACKET GT (21:40)
[2024-07-07] MEDS: Pantoprazole Sodium 40 MG Tablet PO (21:40)
[2024-07-07 21:47] VITALS: BP 133/89; PULSE 86; RESP 20; TEMP 36.4; O2SAT 96
[2024-07-08] VITALS (16 sets, daily range): BP systolic 93–162; BP diastolic 64–94; PULSE 69–84; RESP 12–20; TEMP 36.1–36.6; O2SAT 96–100; BMI 23.4
[2024-07-08] MEDS: 0.9% Saline Lock 10 ML Syringe IV (02:04)
[2024-07-08] MEDS: Glycopyrrolate 0.2 MG/ML Vial 0.1 MG IV ×5 (02:04→21:35)
[2024-07-08 04:24] LABS: Absolute Lymphocyte Count 1.19 X10^3/uL (0.83-4.51); Absolute Neutrophil Count 5.8 X10^3/uL (2.0-7.7); Basophil# 0.03 X10^3/uL; Basophil% 0.4 % (0-1); Eosinophil# 0.37 X10^3/uL; Eosinophils% 4.6 % (0-5); Hematocrit 30.6 % (37-47); Hemoglobin 9.3 g/dL (12.0-15.0); Lymphocyte # 1.19 X10^3/ul (0.83-4.51); Lymphocyte % 14.7 % (19-41); Mean Corp Hgb Conc 30.4 g/dL (32-36); Mean Corpuscular Hgb 29.8 pg (27.0-32.0); Mean Corpuscular Volume 98.1 fL (81-99); Mean Platelet Vol. 9.2 fl (6.2-12.0); Monocyte# 0.61 X10^3/uL; Monocyte% 7.6 % (0-10); NRBC Flagged by Analyzer 0 % (0-5); Neutrophil # 5.83 X10^3/uL (2.7-7.7); Neutrophil % 72.2 % (47-70); Platelet Count 241 K/mm3 (150-450); RBC Distribution Width CV 15.5 % (11.6-14.6); RBC Distribution Width SD 54.7 fl (35.1-43.9); Red Blood Count 3.12 M/mm3 (4.2-5.4); White Blood Count 8.1 K/mm3 (4.4-11.0)
[2024-07-08 05:30] LABS: Anion Gap 1 (5-15); BUN 42 mg/dL (7-18); BUN/Creat Ratio 21.8 RATIO (10-20); Calcium,Total 7.8 mg/dL (8.5-10.1); Chloride 123 mmol/L (98-107); Creatinine, Serum 1.93 mg/dL (0.55-1.02); EST Glomerular Filtration Rate 27 mL/min (>60); Est Glom Filt Rate - Afr Amer 33 mL/min (>60); Estimated Creatinine Clearance 22.66 ml/min; Glucose 85 mg/dL (74-106); Potassium 3.8 mmol/L (3.5-5.1); Sodium Level 151 mmol/L (136-145)
[2024-07-08] MEDS: Lactated Ringers 1,000 ML 15 ML IV (06:08)
[2024-07-08 06:14] LABS: Bedside Glucose 79 mg/dL (74-106)
--- NOTE | 2024-07-08 07:02 | OP.EGD_ITS ---
Patient Name: Fior Escamilla Procedure Date: 07/08/2024 6:14 AM Date of : 1950 Age: 74 Procedure: Upper GI endoscopy Indications: Dysphagia, Stenosis of the esophagus Providers: Francis Verma DO Medicines: Monitored Anesthesia Care Patient Profile: This is a 74 year old female. Refer to note in patient chart for documentation of history and physical. Patient has symptoms of dysphagia with both liquids and solids. Complications: No immediate complications. Procedure: Pre-Anesthesia Assessment: - Prior to the procedure, a History and Physical was performed, and patient medications and allergies were reviewed. The patient is competent. The risks and benefits of the procedure and the sedation options and risks were discussed with the patient. All questions were answered and informed consent was obtained. Patient identification and proposed procedure were verified by the physician in the pre-procedure area. Mental Status Examination: alert and oriented. Airway Examination: normal oropharyngeal airway and neck mobility. Respiratory Examination: clear to auscultation. CV Examination: normal. Prophylactic Antibiotics: The patient does not require prophylactic antibiotics. Prior Anticoagulants: The patient has taken no anticoagulant or antiplatelet agents except for NSAID medication. ASA Grade Assessment: II - A patient with mild systemic disease. After reviewing the risks and benefits, the patient was deemed in satisfactory condition to undergo the procedure. The anesthesia plan was to use monitored anesthesia care (MAC). Immediately prior to administration of medications, the patient was re-assessed for adequacy to receive sedatives. The heart rate, respiratory rate, oxygen saturations, blood pressure, adequacy of pulmonary ventilation, and response to care were monitored throughout the procedure. The physical status of the patient was re-assessed after the procedure. After obtaining informed consent, the endoscope was passed under direct vision. Throughout the procedure, the patient's blood pressure, pulse, and oxygen saturations were monitored continuously. The gastroscope was introduced through the mouth, and advanced to the second part of duodenum. The upper GI endoscopy was accomplished without difficulty. The patient tolerated the procedure well. Scope In: 6:47:54 AM Scope Out: 6:53:43 AM Total Procedure Duration Time 0 hours 5 minutes 49 seconds Findings: One benign-appearing, intrinsic severe (stenosis; an endoscope cannot pass) stenosis was found 28 to 38 cm from the incisors. This stenosis measured 4 mm (inner diameter) x 8 cm (in length). The stenosis was traversed after dilation. A TTS dilator was passed through the scope. Dilation with a 12-13.5-15 mm balloon dilator was performed to 13 mm. The dilation site was examined and showed moderate improvement in luminal narrowing. Estimated blood loss was minimal. A medium-sized hiatal hernia was present. There was evidence of an intact gastrostomy with a patent G-tube present in the gastric body. This was characterized by healthy appearing mucosa. No gross lesions were noted in the second portion of the duodenum. Impression: - Severe erosive esophagitis with severe esophageal stricture and benign-appearing esophageal stenosis. Dilated. - Medium-sized hiatal hernia. - Intact gastrostomy with a patent G-tube present characterized by healthy appearing mucosa. - No gross lesions in the second portion of the duodenum. - No specimens collected. Recommendation: - .PPI drip - Clear liquid diet today. - Continue present medications. - Esophageal stent placement Procedure Code(s): --- Professional --- 33147, Esophagogastroduodenoscopy, flexible, transoral; with transendoscopic balloon dilation of esophagus (less than 30 mm diameter) CPT copyright 2021 [employer]. All rights reserved. The codes documented in this report are preliminary and upon barrel and receiver aligner review may be revised to meet current compliance requirements. Francis Verma DO 07/08/2024 7:00:53 AM This report has been signed electronically. Number of Addenda: 0 Note Initiated On: 07/08/2024 6:14 AM
--- NOTE | 2024-07-08 07:02 | OP.CCLET_ITS ---
07/08/2024 Jay Kincaid Re : Upper GI endoscopy procedure for Fior Escamilla Dear Codi This procedure was performed on Monday, July 08, 2024. My impressions and recommendations are as follows: Impressions : - Severe erosive esophagitis with severe esophageal stricture and benign-appearing esophageal stenosis. Dilated. - Medium-sized hiatal hernia. - Intact gastrostomy with a patent G-tube present characterized by healthy appearing mucosa. - No gross lesions in the second portion of the duodenum. - No specimens collected. Recommendations : - .PPI drip - Clear liquid diet today. - Continue present medications. - Esophageal stent placement My findings are described in the full procedure note, which is enclosed. If I can be of further assistance, please feel free to contact me at . Sincerely, Francis Verma, 07/08/2024 7:00:53 AM This report has been signed electronically.
--- NOTE | 2024-07-08 07:13 | PCM.PRE.AN2 ---
ASA Classification* ASA Classification ASA Classification: 3 Assessment & Plan Anesthesia* Anesthesia Assessment Anesthesia Assessment: Discussed sedation and/or anesthesia options, risks, benefits, and alternatives with patient/parents/legal guardian/POA. Questions invited. The patient/parents/legal guardian/POA seems to understand and agrees to proceed with anesthesia plan. Reviewed the physical assessment, medical history, allergy history and patient home medications list prior to surgery/procedure/anesthetic and documented any changes. Performed airway and anesthesia risk assessments. Anesthesia Type Anesthesia Type: MAC (EGD with balloon dilation) Anesthesia Focused Assessment* Temperature: 96.9 F Pulse Rate: 71 Blood Pressure: 119/75 Respiratory Rate: 18 Pulse Ox: 99 Oxygen Delivery Method: Nasal Cannula (2L N/C) Airway Assessment Mouth opens: >3 cm Mallampati Score: II Pertinent Findings EKG Pertinent Findings:: NSR 07/03/2024 ECHO Pertinent Findings:: Ejection fraction 65% 03/09/2023 Focused Labs Anesthesia Preop lab: CBC WBC 8.1 K/mm3 (4.4-11.0) 07/08/24 03:25 RBC 3.12 M/mm3 (4.2-5.4) L 07/08/24 03:25 Hgb 9.3 g/dL (12.0-15.0) L 07/08/24 03:25 Hct 30.6 % (37-47) L 07/08/24 03:25 Plt Count 241 K/mm3 (150-450) 07/08/24 03:25 CHEMISTRY Potassium 3.8 mmol/L (3.5-5.1) 07/08/24 03:25 Sodium 151 mmol/L (136-145) H 07/08/24 03:25 Magnesium 2.6 mg/dL (1.6-2.6) 07/04/24 02:00 Phosphorus 3.9 mg/dL (2.5-4.9) 07/04/24 02:00 BUN 42 mg/dL (7-18) H 07/08/24 03:25 Creatinine 1.93 mg/dL (0.55-1.02) H 07/08/24 03:25 Glucose 85 mg/dL (74-106) 07/08/24 03:25 POC Glucose 79 mg/dL (74-106) 07/08/24 05:54 TSH 0.323 uIU/mL (0.358-3.740) L 07/04/24 02:00 COAG PT 12.8 SECONDS (11.7-14.9) 07/03/24 20:44 Pre-Assessment Diagnosis/Proposed Procedure Planned Operative Procedure(s): Esophagogastroduodenoscopy with possible cautery and/or injection therapy. 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 When Was Last Pacemaker Check QUESTION #4 FULL TEXT: You/Your Family Experience fever (hyperthermia) with Anesthesia Last Oral Intake Last Oral intake: Last Oral Intake NPO since 00:00 07/07/24 14:19 Meds taken in AM with sips of water? 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: PONV - bleach boiler puller Female HX of Motion Sickness HX of N/V After Surgery Non-Smoker Duration of Surgery greater than 60 minutes Number of Risk Factors PONV Score Height & Weight Height & Weight: Anesthesia: Height & Weight Height 5 ft 5 in 07/07/24 14:19 Weight: 63.9 kg 07/08/24 06:00 Body Mass Index (BMI) 23.4 07/08/24 06:00 Respiratory Assessment Respiratory Assessment - bleach boiler puller: Respiratory Tract Infection Hx - bleach boiler puller Hx Respiratory Tract Infection No 07/07/24 12:16 STOP Sleep Apnea STOP Sleep Apnea - bleach boiler puller: STOP Sleep Apnea - bleach boiler puller Hx Hypertension No 07/05/24 15:00 Hx Sleep Apnea No 07/04/24 17:45 CPAP No 07/04/24 17:31 BIPAP No 04/06/24 09:42 Do you snore loudly (louder No 07/04/24 01:07 than talking or can be heard Do you often feel tired/ Yes 07/04/24 01:07 fatigued/ sleepy during daytime? Has anyone observed you stop No 07/04/24 01:07 breathing during sleep? STOP Results Negative 07/04/24 17:31 QUESTION #5 FULL TEXT : Do you snore loudly (louder than talking or can be heard through closed doors)? 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 Specify any problems Hx of Preganancy in last 3 No 07/04/24 01:07 Months Nurse Filling Out Transfusion [id number] 07/04/24 01:07 & Questions: Date: 07/04/24 07/04/24 01:07 Time: 01:13 07/04/24 01:07 Patient unable to answer at this time (ie. confused, unrespo /Reproduction History /Reproductive History - bleach boiler puller: /Reproductive Hx- bleach boiler puller Hx Now No 07/07/24 12:16 Gestational Age (in weeks): EDC: Hx Hx Para Hx Section SAB No 07/07/24 12:16 Active Medications Active Medications: Current Medications Generic Name Dose Route Start Last Admin Trade Name Freq PRN Reason Stop Dose Admin Acetaminophen 650 mg 07/04/24 01:06 Acetaminophen 650 Mg/20 Ml Udc GT Q6H PRN PRN Pain 1-10 or Fever Albuterol Sulfate 2.5 mg 07/04/24 01:06 Albuterol 2.5 Mg/3 Ml Vial.Neb. INHALATION Q2H PRN PRN SOB &/OR WHEEZING Bisacodyl 10 mg 07/04/24 10:00 07/07/24 09:45 Bisacodyl 10 Mg Suppository RC 10 mg DAILY BINA Administration Cinacalcet 60 mg 07/04/24 10:00 07/07/24 21:40 Cinacalcet Hcl 30 Mg Tablet PO 60 mg BID BINA Administration Enteral Nutritional Formula 0 ml 07/06/24 19:00 07/07/24 18:43 Vital Af 1.2 Mp Liquid 1,000 Ml GT Not Given UD BINA Glucagon 1 mg 07/05/24 03:08 Glucagon 1 Mg/Ml Syringe IM X1 PRN Hypoglycemia Protocol Glycopyrrolate 0.1 mg 07/04/24 17:45 07/08/24 06:11 Glycopyrrolate 0.2 Mg/Ml Vial IV Not Given Q4H BINA Sodium Chloride 500 mls @ 15 mls/hr 07/04/24 01:16 IV PRN PRN Blood Transfusion Ampicillin Sodium/Sulbactam 112 mls @ 150 mls/hr 07/04/24 01:40 07/07/24 22:26 Sodium 3 gm/ Sodium Chloride IV Infused QHS BINA Infusion Lactated Ringer's 1,000 mls @ 75 mls/hr 07/04/24 04:00 07/08/24 06:11 IV 0 mls/hr .[id number] BINA Infusion Dextrose 250 mls @ 0 mls/hr 07/05/24 03:08 07/05/24 07:26 Dextrose 10%-Water IV Infused .Q0M PRN Infusion HYPOGLYCEMIA Protocol As Directed Lactated Ringer's 1,000 mls @ 15 mls/hr 07/08/24 06:15 07/08/24 06:08 IV 15 mls/hr .Q48H BINA Administration Lamotrigine 200 mg 07/04/24 10:00 07/07/24 09:42 Lamotrigine 100 Mg Tablet GT 200 mg DAILY BINA Administration Lorazepam 2 mg 07/04/24 10:00 07/07/24 21:42 Lorazepam 1 Mg Tablet GT 2 mg 4X/DAY BINA Administration Lorazepam 0.5 mg 07/07/24 17:53 07/07/24 18:05 Lorazepam 2 Mg/Ml Syringe IV 0.5 mg Q6H PRN PRN Administration ANXIETY Methimazole 5 mg 07/04/24 10:00 07/06/24 10:16 Methimazole 5 Mg Tablet GT 5 mg [id number] BINA Administration Ondansetron HCl 4 mg 07/04/24 01:06 07/07/24 14:12 Ondansetron 4 Mg/2 Ml Vial IV 4 mg Q8H PRN PRN Administration NAUSEA/VOMITING Pantoprazole Sodium 40 mg 07/06/24 10:00 07/07/24 21:40 Pantoprazole Sodium 40 Mg Tablet PO 40 mg BID BINA Administration Polyethylene Glycol 17 gm 07/04/24 10:00 07/07/24 21:40 Polyethylene Glycol 3350 17 Gm Packet GT 17 gm BID BINA Administration Scopolamine HBr 1 patch 07/07/24 06:00 07/07/24 06:33 Scopolamine 1mg/72hr Patch TD 1 patch Q3D BINA Administration Sodium Chloride 10 - 40 ml 07/04/24 01:16 07/08/24 02:04 0.9% Saline Lock 10 Ml Syringe IV 10 ml UD PRN Administration SALINE FLUSH PFSH Medical History (Updated 07/05/24 @ 21:[address] Blanco Friend, DO) GI bleed History of Clostridium difficile infection Arthritis History of renal disease History of echocardiogram History of Mohs micrographic surgery for skin cancer Acute uremia Anemia History of jejunostomy tube placement Hypertension Iron deficiency anemia History of gastrostomy tube placement Acute renal insufficiency Anemia, unspecified Stenosis of esophagus Erosive esophagitis UTI (urinary tract infection) Gram-negative bacteremia Severe malnutrition Severe malnutrition Severe dehydration Wears glasses Post-menopausal Bipolar disorder Diabetes insipidus Thyroid disease Bladder disease Back pain Dietary restriction History of hiatal hernia Gastric reflux Former smoker Generalized weakness Unsteady gait History of edema Gastroparesis Nondiabetic gastroparesis Dysphagia Tardive dyskinesia [place] History of herpes zoster Hypertension Delirium due to multiple etiologies Hypercalcemia CITLALY (acute kidney injury) Hypernatremia Secondary hyperparathyroidism of renal origin Bipolar disorder with moderate depression Pulmonary emboli Anemia Anxiety Difficulty chewing Bipolar disorder Home Medications ?Medication ?Instructions ?Recorded ?Last Taken ?Type methimazole 5 mg tablet 5 mg PO SUMOWEFR Thyroid 10/04/20 01/14/23 History denosumab 60 mg/mL subcutaneous 60 mg subcut .Q6MO osteoporosis 09/05/22 08/27/22 History syringe (Prolia) oxybutynin chloride 15 mg 15 mg PO DAILY Overactive bladder 09/05/22 01/14/23 History tablet,extended release 24 hr polyethylene glycol 3350 17 17 g PO DAILY PRN constipation 09/05/22 09/05/22 History gram/dose oral powder (Miralax) lamotrigine 100 mg tablet 200 mg PO DAILY Bipolar Disorder 03/19/23 04/12/24 History losartan 25 mg tablet 25 mg PO DAILY BP 03/19/23 04/12/24 History cinacalcet 30 mg tablet 60 mg (2 x 30 mg) PO BID 30 days 04/08/23 Unknown Rx #120 tabs memantine 10 mg tablet 10 mg PO DAILY Check with primary 04/20/23 Unknown History doctor lorazepam 2 mg tablet 2 mg PO 4X/DAY 06/11/23 Unknown History cholecalciferol (vitamin D3) 50 100 mcg (2 x 50 mcg (2,000 unit)) 12/15/23 Unknown Rx mcg (2,000 unit) capsule PO DAILY #60 caps hyoscyamine sulfate 0.125 mg 0.125 mg PO BID PRN dyspepsia #14 03/29/24 Unknown Rx sublingual tablet tabs ondansetron HCl 4 mg tablet See Rx Instructions PO Q6H PRN 03/29/24 Unknown Rx nausea and vomiting #90 tabs estradiol 0.01% (0.1 mg/gram) 1 applic vaginal .3 TIMES WEEKLY 04/06/24 Unknown History vaginal cream ferrous sulfate 325 mg (65 mg 325 mg PO BID SUPPLEMENT 04/06/24 Unknown History iron) tablet scopolamine base 1 mg over 3 days 1 patch transdermal Q3D #10 ea 04/12/24 Unknown Rx transdermal patch lansoprazole 30 mg capsule,delayed 30 mg PO BID #60 caps 04/22/24 Unknown Rx release glycopyrrolate 2 mg tablet 2 mg PO BID-TID PRN secretions #60 06/21/24 Unknown Rx tabs metoclopramide HCl 5 mg tablet 5 mg PO QAC gastroparesis #90 tabs 06/21/24 Unknown Rx nutritional supplements 0.06 948 ml feeding tube QHS 07/04/24 Unknown History gram-1.2 kcal/mL oral liquid (Osmolite 1.2 Mp) Allergy/AdvReac Type Severity Reaction Status Date / Time No Known Allergies Allergy Verified 07/03/24 20:34 Family History Father CVA (cerebral vascular accident) Sister CVA (cerebral vascular accident) Cancer Surgical History History of esophagogastroduodenoscopy (EGD) Hx of esophagogastroduodenoscopy Social History household members: spouse housing: house Smoking Status: Former smoker Tobacco: How many years used: 4 second hand exposure: Yes alcohol intake: never substance use type: does not use what type of physical activity do you participate in: other details: OT - [facility] IN [place] frequency: daily valentina/tenriism: Anabaptist seatbelt use: always additional social history: Ambulates at baseline without assistive device Prior Cardiac Testing/Procedures Prior Cardiac Testing/Procedures: Echocardiogram (Ejection fraction 65% 03/09/2023) Review of Systems (Anesthesia) ROS Narrative System reviewed and no additional complaints, except as documented.
--- NOTE | 2024-07-08 07:20 | PCM.POST.ANE ---
Anesthesia: Postop Eval I Current Vital Signs Temperature: 97.4 F Pulse Rate: 69 Blood Pressure: 119/75 Respiratory Rate: 17 Pulse Ox: 100 Assessment Airway patent: Yes Spontaneous unlabored respirations: Yes nausea: No Vomiting: No Anesthesia Complication: No Fluid Hydration Crystalloid volume administer (ml): 100 Total IV fluid infused: 100 Progress Note Anesthesia document: Postop Eval 1 completed: Yes
--- NOTE | 2024-07-08 07:21 | POSTOPAN2_ITS ---
Anesthesia Postop Eval I Sum Postop Eval Completion status Anesthesia document: Postop Eval 1 completed: Yes Anesthesia Postop Eval I Summary Anesthesia Postop Eval I Summary: Anesthesia Postop Eval I: Assessment Summary Airway patent Yes 07/08/24 07:20 ESCORT PATIENTS.JCOTE Spontaneous unlabored Yes 07/08/24 07:20 ESCORT PATIENTS.JCOTE respirations Mental status Awake,Calm 07/04/24 17:31 ESCORT PATIENTS.MDOT nausea No 07/08/24 07:20 ESCORT PATIENTS.JCOTE Vomiting No 07/08/24 07:20 ESCORT PATIENTS.JCOTE Anesthesia Postop Eval I: Fluid Summary Crystalloid volume administer 100 07/08/24 07:20 ESCORT PATIENTS.JCOTE (ml) Colloids volume administered ( ml) Blood Product volume administered (ml) Total IV fluid infused 100 07/08/24 07:20 ESCORT PATIENTS.JCOTE Anesthesia Postop Eval I: Summary Notes Anesthesia Complication No 07/08/24 07:20 ESCORT PATIENTS.JCOTE Anesthesia Complication Comment: Post-operative progress note Anesthesia: Postop Eval II Evaluation Mental status: Awake Pain Level: 0 nausea: No Vomiting: No
--- NOTE | 2024-07-08 07:21 | PCM.POSTANE2 ---
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.JCOTE Spontaneous unlabored Yes 07/08/24 07:20 MOTOR VEHICLE REPRESENTATIVE.JCOTE respirations Mental status Awake,Calm 07/04/24 17:31 MOTOR VEHICLE REPRESENTATIVE.MDOT nausea No 07/08/24 07:20 MOTOR VEHICLE REPRESENTATIVE.JCOTE Vomiting No 07/08/24 07:20 MOTOR VEHICLE REPRESENTATIVE.JCOTE Anesthesia Postop Eval I: Fluid Summary Crystalloid volume administer 100 07/08/24 07:20 MOTOR VEHICLE REPRESENTATIVE.JCOTE (ml) Colloids volume administered ( ml) Blood Product volume administered (ml) Total IV fluid infused 100 07/08/24 07:20 MOTOR VEHICLE REPRESENTATIVE.JCOTE Anesthesia Postop Eval I: Summary Notes Anesthesia Complication No 07/08/24 07:20 MOTOR VEHICLE REPRESENTATIVE.JCOTE Anesthesia Complication Comment: Post-operative progress note Anesthesia: Postop Eval II Evaluation Mental status: Awake Pain Level: 0 nausea: No Vomiting: No
--- NOTE | 2024-07-08 07:44 | PN.HOSP_ITS ---
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 Did have BMs after soap suds enema. Objective Data Objective Data Vital Signs: Vital Signs Temp Pulse Resp BP Pulse Ox O2 Del Method O2 Flow Rate 36.3 C L 69 17 119/75 100 Nasal Cannula 2 07/08/24 07:20 07/08/24 07:20 07/08/24 07:20 07/08/24 07:20 07/08/24 07:20 07/08/24 07:19 07/08/24 07:19 Oxygen Flow Rate (L/min) 2 Oxygen Delivery Method Nasal Cannula Weight: 63.9 kg Body Mass Index (BMI) 23.4 Intake & Output: Intake and Output for Last 24 Hours 07/06/24 07/07/24 07/08/24 23:59 23:59 23:59 Intake Total 3943.25 / 3943.25 1954.50 / 4754.50 3706.25 / 3706.25 Output Total 1900 / 1900 100 / 100 Balance 2043.25 / 2043.25 1854.50 / 4654.50 3706.25 / 3706.25 Lab / Micro Data 07/08/24 03:25 07/08/24 03:25 Labs: Laboratory Results - last 24 hr 07/08/24 03:25: WBC 8.1, RBC 3.12 L, Hgb 9.3 L, Hct 30.6 L, MCV 98.1, MCH 29.8, MCHC 30.4 L, RDW Std Deviation 54.7 H, RDW Coeff of Lee 15.5 H, Plt Count 241, MPV 9.2, Immature Gran % (Auto) 0.500, Neut % (Auto) 72.2 H, Lymph % (Auto) 14.7 L, [place] % (Auto) 7.6, Eos % (Auto) 4.6, Baso % (Auto) 0.4, Absolute Neuts (auto) 5.8, Absolute Lymphs (auto) 1.19, Nucleated RBC % 0, Sodium 151 H, Potassium 3.8, Chloride 123 H, Carbon Dioxide 27.0, Anion Gap 1 L, BUN 42 H, Creatinine 1.93 H, Estim Creat Clear Calc 22.66, Est GFR (MDRD) Af Amer 33 L, Est GFR (MDRD) Non-Af 27 L, BUN/Creatinine Ratio 21.8 H, Glucose 85, Calcium 7.8 L 07/08/24 05:54: POC Glucose 79 Micro: Microbiology 07/04/24 00:11 Blood Culture (Wb) - Anticubital Left Blood Culture - Preliminary No growth in 48 hours. 07/03/24 22:35 Stool Stool Occult Blood (LIZ) - Final Radiography Diagnostic Testing: Radiology Impression KUB X-Ray 07/07/24 14:10 IMPRESSION: Large amount of fecal material is seen in the rectosigmoid colon with distention. Electronically Signed: Cheng Schmitt MD at 14:55 EDT , Abdomen/Pelvis CT 07/07/24 17:11 IMPRESSION: Increased Colonic ileus and increased stool. No evidence of obstruction. Other incidental findings as noted above. Electronically Signed: Francis Corona MD at 19:37 EDT , Physical Exam Const alert and no apparent distress HEENT head/scalp atraumatic and moist oral mucous membranes Resp normal respiratory effort, no retractions, no use of accessory muscles and clear to auscultation bilaterally Cardio regular rate, regular rhythm, S1 normal heart sound and S2 normal heart sound GI normal to inspection, nondistended, normoactive bowel sounds, soft to palpation, non-tender and non-distended Neuro Sensorium / Orientation: awake and alert Psych Psych Narrative: anxious Assessment & Plan Assessment/Plan (1) GI bleed: PLAN: Plan GI bleed * 2/2 bleeding from esophageal stent. Repeat EGD on the showed severe erosive esophagitis with severe esophageal stricture and benign-appearing esophageal stenosis. Esophageal stricture dilated. GI recommending repeat stent. * GI recommending Protonix drip, will initiate Acute blood loss anemia * 2/2 GI bleed. Hg went down to 6.6. Since improved to 9.3. Hemoglobin 10.7 is likely an outlier. Will monitor. * s/p 2 units PRBCs Esophageal stenosis * stent removed as was contributing to GI bleed. GI to reattempt stent replacement. * follow up with GI as outpt. * Patient already with PEG tube. Was changed over in April due to erosion from the prior PEG tube. Nutrition recommends: Vital AF 1.2 100 cc/h x 12 QHS w 100 water flush eery 4 hours and diet as able. Aspiration pneumonia * on amp/SB, complete 7-day course Dysphagia * 2/2 esophageal stenosis * MBS and ST recommending ONLY thin liquids. Hypotension: * 2/2 ABLA * resolved * transfer out of ICU ([facility] signed off 07/05) CITLALY * improving. Creatinine peaked at 4.11, down to 1.93. Baseline around 1.9 Hypernatremia * will give 0.45% saline. * monitor Colonic ileus/constipation * Initial concern was for small bowel obstruction but x-ray showed a large amount of fecal material in the rectosigmoid colon. CT scan showed increased colonic ileus and increased stool. * No documented bowel movements, will order fleets enema. VTE prophylaxis: SCDs. Charges/Coding Visit Charges Inpatient E&M: 12041 Subs Hosp L2
[2024-07-08] MEDS: 0.45% Normal Saline 1,000 ML 100 ML IV (08:17)
--- NOTE | 2024-07-08 08:27 | ANES.CONFIRM ---
Anesthesia: Confirm Documents Multiple Procedures on Account (2) Confirmed Documents: Yes
[2024-07-08] MEDS: Pantoprazole Sodium 80 MG in 0.9% Normal Saline (50mL Bag) 15 ML 420 MG IV BOLUS (08:56)
[2024-07-08] MEDS: Pantoprazole Sodium 80 MG in 0.9% Normal Saline (100mL Bag) 80 ML 10 MG CONT INF ×2 (09:00→18:08)
[2024-07-08] MEDS: LORazepam 1 MG Tablet 2 MG GT ×3 (11:05→21:54)
[2024-07-08] MEDS: lamoTRIgine 100 MG Tablet 200 MG GT (11:06)
[2024-07-08] MEDS: Polyethylene Glycol 3350 17 GM PACKET GT ×2 (11:07→21:38)
[2024-07-08] MEDS: Cinacalcet HCl 30 MG Tablet 60 MG PO ×2 (11:07→21:37)
[2024-07-08] MEDS: Methimazole 5 MG Tablet GT (11:08)
--- NOTE | 2024-07-08 14:24 | CASEMGMT ---
ALEXEY MARTIN NOTE: [facility] made aware anticipate pt will dc home over the weekend. SOC slated for Thursday. Pt made aware and voices appreciation. DC plan updated. Shanna ARMANDO RN CM
[2024-07-08] MEDS: Vital AF 1.2 Cal Liquid 1,000 ML GT (19:41)
[2024-07-08] MEDS: Ampicillin/Sulbactam 3 GM in 0.9% Normal Saline (100mL MB+) 100 ML IV (21:35)
[2024-07-09] VITALS (7 sets, daily range): BP systolic 131–148; BP diastolic 75–96; PULSE 74–83; RESP 13–18; TEMP 36.4–36.8; O2SAT 92–100; BMI 23.5
[2024-07-09] MEDS: Glycopyrrolate 0.2 MG/ML Vial 0.1 MG IV ×6 (02:26→22:00)
[2024-07-09] MEDS: 0.45% Normal Saline 1,000 ML 100 ML IV ×3 (02:42→21:55)
[2024-07-09] MEDS: Pantoprazole Sodium 80 MG in 0.9% Normal Saline (100mL Bag) 80 ML 10 MG CONT INF ×3 (03:49→23:25)
[2024-07-09 05:14] LABS: Absolute Lymphocyte Count 1.48 X10^3/uL (0.83-4.51); Absolute Neutrophil Count 7.2 X10^3/uL (2.0-7.7); Basophil# 0.04 X10^3/uL; Basophil% 0.4 % (0-1); Eosinophil# 0.48 X10^3/uL; Eosinophils% 4.8 % (0-5); Hematocrit 34.2 % (37-47); Hemoglobin 10.3 g/dL (12.0-15.0); Lymphocyte # 1.48 X10^3/ul (0.83-4.51); Lymphocyte % 14.7 % (19-41); Mean Corp Hgb Conc 30.1 g/dL (32-36); Mean Corpuscular Volume 99.7 fL (81-99); Mean Platelet Vol. 9.2 fl (6.2-12.0); Monocyte# 0.84 X10^3/uL; Monocyte% 8.3 % (0-10); NRBC Flagged by Analyzer 0 % (0-5); Neutrophil # 7.15 X10^3/uL (2.7-7.7); Neutrophil % 70.9 % (47-70); Platelet Count 247 K/mm3 (150-450); RBC Distribution Width CV 15.5 % (11.6-14.6); RBC Distribution Width SD 57.1 fl (35.1-43.9); Red Blood Count 3.43 M/mm3 (4.2-5.4); White Blood Count 10.1 K/mm3 (4.4-11.0)
[2024-07-09 05:44] LABS: Anion Gap 4 (5-15); BUN 38 mg/dL (7-18); BUN/Creat Ratio 19.3 RATIO (10-20); Calcium,Total 7.4 mg/dL (8.5-10.1); Chloride 121 mmol/L (98-107); Creatinine, Serum 1.97 mg/dL (0.55-1.02); EST Glomerular Filtration Rate 26 mL/min (>60); Est Glom Filt Rate - Afr Amer 32 mL/min (>60); Glucose 115 mg/dL (74-106); Potassium 3.7 mmol/L (3.5-5.1); Sodium Level 150 mmol/L (136-145)
--- NOTE | 2024-07-09 06:23 | NURSING ---
IV fluids 0.45 NS appeared to be empty on JAN but bag was not fully infused. Fluids were running from [id number].
--- NOTE | 2024-07-09 07:01 | PN.HOSP_ITS ---
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) Hypotension, unspecified (07/04/24) Pneumonitis due to inhalation of food and vomit (07/04/24) Esophageal obstruction (07/04/24) Gastroparesis (07/04/24) Fecal impaction (07/04/24) Constipation, unspecified (07/04/24) Gastrointestinal hemorrhage, unspecified (07/04/24) Acute kidney failure, unspecified (07/04/24) Bladder-neck obstruction (07/04/24) Subjective Subjective Feeling better Objective Data Objective Data Vital Signs: Vital Signs Temp Pulse Resp BP Pulse Ox O2 Del Method O2 Flow Rate 36.6 C 83 13 148/96 H 100 Nasal Cannula 2 07/09/24 02:00 07/09/24 02:00 07/09/24 02:00 07/09/24 02:00 07/09/24 02:00 07/09/24 02:00 07/09/24 02:00 Oxygen Flow Rate (L/min) 2 Oxygen Delivery Method Nasal Cannula Weight: 64.2 kg Body Mass Index (BMI) 23.5 Intake & Output: Intake and Output for Last 24 Hours 07/07/24 07/08/24 07/09/24 23:59 23:59 23:59 Intake Total 1954.50 / 4754.50 5474.58 / 5474.58 96.83 / 96.83 Output Total 100 / 100 800 / 800 Balance 1854.50 / 4654.50 4674.58 / 4674.58 96.83 / 96.83 Lab / Micro Data 07/09/24 04:35 07/09/24 04:35 Labs: Laboratory Results - last 24 hr 07/09/24 04:35: WBC 10.1, RBC 3.43 L, Hgb 10.3 L, Hct 34.2 L, MCV 99.7 H, MCH 30.0, MCHC 30.1 L, RDW Std Deviation 57.1 H, RDW Coeff of Lee 15.5 H, Plt Count 247, MPV 9.2, Immature Gran % (Auto) 0.900, Neut % (Auto) 70.9 H, Lymph % (Auto) 14.7 L, [place] % (Auto) 8.3, Eos % (Auto) 4.8, Baso % (Auto) 0.4, Absolute Neuts (auto) 7.2, Absolute Lymphs (auto) 1.48, Nucleated RBC % 0, Sodium 150 H, Potassium 3.7, Chloride 121 H, Carbon Dioxide 25.0, Anion Gap 4 L, BUN 38 H, C reatinine 1.97 H, Estim Creat Clear Calc 22.20, Est GFR (MDRD) Af Amer 32 L, Est GFR (MDRD) Non-Af 26 L, BUN/Creatinine Ratio 19.3, Glucose 115 H, Calcium 7.4 L Micro: Microbiology 07/04/24 00:11 Blood Culture (Wb) - Anticubital Left Blood Culture - Final No growth in 5 days. 07/03/24 22:35 Stool Stool Occult Blood (LIZ) - Final Physical Exam Const alert and no apparent distress HEENT head/scalp atraumatic and moist oral mucous membranes Resp normal respiratory effort, no retractions, no use of accessory muscles and clear to auscultation bilaterally Cardio regular rate, regular rhythm, S1 normal heart sound and S2 normal heart sound GI normal to inspection, nondistended, normoactive bowel sounds, soft to palpation, non-tender and non-distended Neuro Sensorium / Orientation: awake and alert Assessment & Plan Assessment/Plan (1) GI bleed: PLAN: Plan GI bleed * 2/2 bleeding from esophageal stent, which was removed. Repeat EGD on the showed severe erosive esophagitis with severe esophageal stricture and benign- appearing esophageal stenosis. Esophageal stricture dilated. GI recommending repeat stent. * GI recommending Protonix drip. Continue for for now. Acute blood loss anemia * 2/2 GI bleed. Hg went down to 6.6. Since improved and stabilized. * s/p 2 units PRBCs Esophageal stenosis * stent removed as was contributing to GI bleed. GI to reattempt stent replacement. * follow up with GI as outpt. * Patient already with PEG tube. Was changed over in April due to erosion from the prior PEG tube. Nutrition recommends: Vital AF 1.2 100 cc/h x 12 QHS w 100 water flush eery 4 hours and diet as able. Aspiration pneumonia * on amp/SB, complete 7-day course Dysphagia * 2/2 esophageal stenosis * MBS and ST recommending ONLY thin liquids. Supplement diet with tube feeds (on Vital AF 1.2 at goal rate 100 ml/hr x 12 hours at night from 7pm to 7am and 100 ml water flush every 4 hours x 24 hr day to provide ~ 1440 breanne/ 90 gm pro / 1573 ml free water per day.) Hypotension: * 2/2 ABLA. No pressors required * resolved CITLALY * improved. Creatinine peaked at 4.11, down to 1.93. Baseline around 1.9 Hypernatremia * ongoing. will continue with 0.45% saline. * monitor Colonic ileus/constipation * Resolved with soapsuds enemas. * Initial concern was for small bowel obstruction but x-ray showed a large amount of fecal material in the rectosigmoid colon. CT scan showed increased colonic ileus and increased stool. VTE prophylaxis: SCDs. Charges/Coding Visit Charges Inpatient E&M: 61509 Subs Hosp L2
[2024-07-09] MEDS: LORazepam 1 MG Tablet 2 MG GT ×4 (09:04→21:51)
[2024-07-09] MEDS: Cinacalcet HCl 30 MG Tablet 60 MG PO ×2 (09:05→21:59)
[2024-07-09] MEDS: Polyethylene Glycol 3350 17 GM PACKET GT ×2 (09:06→22:00)
[2024-07-09] MEDS: Memantine Hydrochloride 10 MG Tablet PO (09:06)
[2024-07-09] MEDS: lamoTRIgine 100 MG Tablet 200 MG GT (09:07)
[2024-07-09] MEDS: Bisacodyl 10 MG Suppository RC (09:07)
[2024-07-09] MEDS: Ondansetron 4 MG/2 ML Vial IV (09:19)
--- NOTE | 2024-07-09 18:15 | NURSING ---
report called to [facility] for transfer to room 103, pt did call & inform him
[2024-07-09] MEDS: Vital AF 1.2 Cal Liquid 1,000 ML GT (18:36)
[2024-07-09] MEDS: Ampicillin/Sulbactam 3 GM in 0.9% Normal Saline (100mL MB+) 100 ML IV (21:51)
[2024-07-10] MEDS: Glycopyrrolate 0.2 MG/ML Vial 0.1 MG IV ×3 (01:31→09:38)
[2024-07-10] MEDS: 0.9% Saline Lock 10 ML Syringe IV ×2 (01:31→05:21)
[2024-07-10 04:02] VITALS: BMI 25.8
[2024-07-10 04:58] LABS: Absolute Lymphocyte Count 1.47 X10^3/uL (0.83-4.51); Absolute Neutrophil Count 7.1 X10^3/uL (2.0-7.7); Basophil# 0.02 X10^3/uL; Basophil% 0.2 % (0-1); Eosinophil# 0.47 X10^3/uL; Eosinophils% 4.8 % (0-5); Hematocrit 34.7 % (37-47); Hemoglobin 10.4 g/dL (12.0-15.0); Lymphocyte # 1.47 X10^3/ul (0.83-4.51); Lymphocyte % 15.1 % (19-41); Mean Corpuscular Hgb 30.2 pg (27.0-32.0); Mean Corpuscular Volume 100.9 fL (81-99); Mean Platelet Vol. 9.1 fl (6.2-12.0); Monocyte# 0.64 X10^3/uL; Monocyte% 6.6 % (0-10); NRBC Flagged by Analyzer 0 % (0-5); Neutrophil # 7.07 X10^3/uL (2.7-7.7); Neutrophil % 72.4 % (47-70); Platelet Count 251 K/mm3 (150-450); RBC Distribution Width CV 15.6 % (11.6-14.6); RBC Distribution Width SD 58.3 fl (35.1-43.9); Red Blood Count 3.44 M/mm3 (4.2-5.4); White Blood Count 9.8 K/mm3 (4.4-11.0)
[2024-07-10 05:00] VITALS: BP 127/87; PULSE 88; RESP 18; TEMP 36.8; O2SAT 97
[2024-07-10] MEDS: Scopolamine 1mg/72hr Patch 1 PATCH TD (05:20)
[2024-07-10 05:23] LABS: Anion Gap 4 (5-15); BUN 34 mg/dL (7-18); BUN/Creat Ratio 19.2 RATIO (10-20); Calcium,Total 7.3 mg/dL (8.5-10.1); Chloride 121 mmol/L (98-107); Creatinine, Serum 1.77 mg/dL (0.55-1.02); EST Glomerular Filtration Rate 30 mL/min (>60); Est Glom Filt Rate - Afr Amer 36 mL/min (>60); Estimated Creatinine Clearance 27.05 ml/min; Glucose 122 mg/dL (74-106); Potassium 3.9 mmol/L (3.5-5.1); Sodium Level 149 mmol/L (136-145)
[2024-07-10] MEDS: 0.45% Normal Saline 1,000 ML 100 ML IV (07:20)
--- NOTE | 2024-07-10 09:15 | PN.HOSP_ITS ---
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 Anxious to go home. Objective Data Objective Data Vital Signs: Vital Signs Temp Pulse Resp BP Pulse Ox O2 Del Method O2 Flow Rate 36.8 C 88 18 127/87 H 97 Room Air 2 07/10/24 05:00 07/10/24 05:00 07/10/24 05:00 07/10/24 05:00 07/10/24 05:00 07/10/24 07:34 07/10/24 01:40 FiO2 100 07/09/24 10:00 Oxygen Flow Rate (L/min) 2 Oxygen Delivery Method Room Air Weight: 70.5 kg Body Mass Index (BMI) 25.8 Intake & Output: Intake and Output for Last 24 Hours 07/08/24 07/09/24 07/10/24 23:59 23:59 23:59 Intake Total 5474.58 / 5474.58 2792.83 / 2792.83 1644.42 / 1644.42 Output Total 800 / 800 1100 / 1100 Balance 4674.58 / 4674.58 1692.83 / 1692.83 1644.42 / 1644.42 Lab / Micro Data 07/10/24 04:10 07/10/24 04:10 Labs: Laboratory Results - last 24 hr 07/10/24 04:10: WBC 9.8, RBC 3.44 L, Hgb 10.4 L, Hct 34.7 L, MCV 100.9 H, MCH 30.2, MCHC 30.0 L, RDW Std Deviation 58.3 H, RDW Coeff of Lee 15.6 H, Plt Count 251, MPV 9.1, Immature Gran % (Auto) 0.900, Neut % (Auto) 72.4 H, Lymph % (Auto) 15.1 L, [place] % (Auto) 6.6, Eos % (Auto) 4.8, Baso % (Auto) 0.2, Absolute Neuts (auto) 7.1, Absolute Lymphs (auto) 1.47, Nucleated RBC % 0, Sodium 149 H, Potassium 3.9, Chloride 121 H, Carbon Dioxide 24.0, Anion Gap 4 L, BUN 34 H, C reatinine 1.77 H, Estim Creat Clear Calc 27.05, Est GFR (MDRD) Af Amer 36 L, Est GFR (MDRD) Non-Af 30 L, BUN/Creatinine Ratio 19.2, Glucose 122 H, Calcium 7.3 L Micro: Microbiology 07/04/24 00:11 Blood Culture (Wb) - Anticubital Left Blood Culture - Final No growth in 5 days. 07/03/24 22:35 Stool Stool Occult Blood (LIZ) - Final Physical Exam Const alert and no apparent distress Resp normal respiratory effort and no retractions Neuro Sensorium / Orientation: awake and alert Assessment & Plan Assessment/Plan (1) GI bleed: PLAN: Plan GI bleed * 2/2 bleeding from esophageal stent, which was removed. Repeat EGD on the showed severe erosive esophagitis with severe esophageal stricture and benign- appearing esophageal stenosis. Esophageal stricture dilated. GI recommending repeat stent. * GI recommending Protonix drip. Transition back to lansoprazole twice daily. Acute blood loss anemia * 2/2 GI bleed. Hg went down to 6.6. Since improved and stabilized after 2 units PRBCs Esophageal stenosis * stent removed as was contributing to GI bleed. GI to reattempt stent replacement. * follow up with GI as outpt. * Patient already with PEG tube. Was changed over in April due to erosion from the prior PEG tube. Nutrition recommends: Vital AF 1.2 100 cc/h x 12 QHS w 100 water flush eery 4 hours and diet as able. Aspiration pneumonia * on amp/SB, complete 7-day course Dysphagia * 2/2 esophageal stenosis * MBS and ST recommending ONLY thin liquids. Supplement diet with tube feeds (on Vital AF 1.2 at goal rate 100 ml/hr x 12 hours at night from 7pm to 7am and 100 ml water flush every 4 hours x 24 hr day to provide ~ 1440 breanne/ 90 gm pro / 1573 ml free water per day.) speech therapy recommending moist pur?es with direct supervision. Okay for meds and applesauce with use of water wash if unable to be provided. Not to advance to solid textures due to chronic dysphagia. Hypotension: * 2/2 ABLA. No pressors required * resolved CITLALY * Resolved. Creatinine peaked at 4.11, down to 1.77. Prior baseline has been around 1.9 Hypernatremia * Improving will continue with 0.45% saline. * monitor Colonic ileus/constipation * Resolved with soapsuds enemas. * Initial concern was for small bowel obstruction but x-ray showed a large amount of fecal material in the rectosigmoid colon. CT scan showed increased colonic ileus and increased stool. VTE prophylaxis: SCDs. Disposition: Discharge home with home care. Patient states that she feels comfortable going home and managing at home. She also has her who can assist. Home health care services will not be able to see her at least until the third.
[2024-07-10] MEDS: Pantoprazole Sodium 80 MG in 0.9% Normal Saline (100mL Bag) 80 ML 10 MG CONT INF (09:18)
[2024-07-10] MEDS: Polyethylene Glycol 3350 17 GM PACKET GT (09:37)
[2024-07-10] MEDS: lamoTRIgine 100 MG Tablet 200 MG GT (09:37)
[2024-07-10] MEDS: Cinacalcet HCl 30 MG Tablet 60 MG PO (09:39)
[2024-07-10] MEDS: Memantine Hydrochloride 10 MG Tablet PO (09:39)
[2024-07-10] MEDS: Methimazole 5 MG Tablet GT (09:39)
[2024-07-10] MEDS: LORazepam 1 MG Tablet 2 MG GT ×2 (09:47→13:50)
[2024-07-10] MEDS: Bisacodyl 10 MG Suppository RC (09:48)
[2024-07-10 10:05] VITALS: BP 154/86; PULSE 82; RESP 16; TEMP 36.8; O2SAT 98
--- NOTE | 2024-07-10 13:17 | DS.PCM_ITS ---
Providers Date of Admission: 07/04/24 Primary Care Physician: Jay Kincaid, RANGE MOUNTER-C Consultations 07/04/24 01:06 Consult: Gastroenterology Routine Consulting Provider: [facility] Reason for Consult: GI bleed/esophageal stent obstruction EMERGENT Consult: No Notified: Yes Date Notified: 07/04/24 Time Notified: 00:40 Method of Notification: Text 07/04/24 04:54 Consult: Remotely Piloted Vehicle Controller / Pulmonary Medicine Routine Consulting Provider: Intensivists/Pulmonary Med Reason for Consult: hypotension EMERGENT Consult: No Notified: Yes Date Notified: 07/04/24 Time Notified: 06:07 Method of Notification: Text Reason For Visit: SEVERE ANEMIA WITH HYPOTENSION Diagnosis Discharge Diagnosis (1) GI bleed: Status: Acute Code(s): K92.2 - Gastrointestinal hemorrhage, unspecified Plan GI bleed * 2/2 bleeding from esophageal stent, which was removed. Repeat EGD on the showed severe erosive esophagitis with severe esophageal stricture and benign- appearing esophageal stenosis. Esophageal stricture dilated. GI recommending repeat stent. * GI recommending Protonix drip. Transition back to lansoprazole twice daily. Acute blood loss anemia * 2/2 GI bleed. Hg went down to 6.6. Since improved and stabilized after 2 units PRBCs Esophageal stenosis * stent removed as was contributing to GI bleed. GI to reattempt stent replacement. * follow up with GI as outpt. * Patient already with PEG tube. Was changed over in April due to erosion from the prior PEG tube. Nutrition recommends: Vital AF 1.2 100 cc/h x 12 QHS w 100 water flush eery 4 hours and diet as able. Aspiration pneumonia * on amp/SB, complete 7-day course Dysphagia * 2/2 esophageal stenosis * MBS and ST recommending ONLY thin liquids. Supplement diet with tube feeds (on Vital AF 1.2 at goal rate 100 ml/hr x 12 hours at night from 7pm to 7am and 100 ml water flush every 4 hours x 24 hr day to provide ~ 1440 mp/ 90 gm pro / 1573 ml free water per day.) speech therapy recommending moist pur?es with direct supervision. Okay for meds and applesauce with use of water wash if unable to be provided. Not to advance to solid textures due to chronic dysphagia. Hypotension: * 2/2 ABLA. No pressors required * resolved CITLALY * Resolved. Creatinine peaked at 4.11, down to 1.77. Prior baseline has been around 1.9 Hypernatremia * Improving will continue with 0.45% saline. * monitor Colonic ileus/constipation * Resolved with soapsuds enemas. * Initial concern was for small bowel obstruction but x-ray showed a large amount of fecal material in the rectosigmoid colon. CT scan showed increased colonic ileus and increased stool. VTE prophylaxis: SCDs. Disposition: Discharge home with home care. Patient states that she feels comfortable going home and managing at home. She also has her who can assist. Home health care services will not be able to see her at least until the third. Medications at Discharge Home Medications methimazole 5 mg tablet 5 mg PO SUMOWEFR Thyroid 10/04/20 denosumab 60 mg/mL subcutaneous syringe (Prolia) 60 mg subcut .Q6MO osteoporosis 09/05/22 oxybutynin chloride 15 mg tablet,extended release 24 hr 15 mg PO DAILY Overactive bladder 09/05/22 polyethylene glycol 3350 17 gram/dose oral powder (Miralax) 17 g PO DAILY PRN constipation 09/05/22 lamotrigine 100 mg tablet 200 mg PO DAILY Bipolar Disorder 03/19/23 losartan 25 mg tablet 25 mg PO DAILY BP 03/19/23 cinacalcet 30 mg tablet 60 mg (2 x 30 mg) PO BID 30 days #120 tabs 04/08/23 memantine 10 mg tablet 10 mg PO DAILY Check with primary doctor 04/20/23 lorazepam 2 mg tablet 2 mg PO 4X/DAY 06/11/23 cholecalciferol (vitamin D3) 50 mcg (2,000 unit) capsule 100 mcg (2 x 50 mcg (2,000 unit)) PO DAILY #60 caps 12/15/23 hyoscyamine sulfate 0.125 mg sublingual tablet 0.125 mg PO BID PRN dyspepsia #14 tabs 03/29/24 ondansetron HCl 4 mg tablet See Rx Instructions PO Q6H PRN nausea and vomiting #90 tabs 03/29/24 estradiol 0.01% (0.1 mg/gram) vaginal cream 1 applic vaginal .3 TIMES WEEKLY 04/06/24 ferrous sulfate 325 mg (65 mg iron) tablet 325 mg PO BID SUPPLEMENT 04/06/24 scopolamine base 1 mg over 3 days transdermal patch 1 patch transdermal Q3D #10 ea 04/12/24 lansoprazole 30 mg capsule,delayed release 30 mg PO BID #60 caps 04/22/24 glycopyrrolate 2 mg tablet 2 mg PO BID-TID PRN secretions #60 tabs 06/21/24 metoclopramide HCl 5 mg tablet 5 mg PO QAC gastroparesis #90 tabs 06/21/24 nutritional supplements 0.06 gram-1.2 kcal/mL oral liquid (Osmolite 1.2 Mp) 948 ml feeding tube QHS 07/04/24 acetaminophen 650 mg/20.3 mL oral solution 650 mg (20.3 mL) G-tube Q6H PRN PRN Pain 1-10 Or Fever #0 mL 07/10/24 amoxicillin 400 mg-potassium clavulanate 57 mg/5 mL oral suspension 10 ml PO Q12H 2 days #40 mL 07/10/24 polyethylene glycol 3350 17 gram/dose oral powder (Miralax) 17 g PO DAILY #119 grams 07/10/24 Hospital Course Operations None Summary of Care Provided Minutes Spent on Discharge: 60 Weight / BMI Weight Weight: 70.5 kg Body Mass Index (BMI) 25.8 ABG / Lab / Microbiology Data 07/10/24 04:10 07/10/24 04:10 Laboratory: Laboratory Results - last 24 hr 07/10/24 04:10: WBC 9.8, RBC 3.44 L, Hgb 10.4 L, Hct 34.7 L, MCV 100.9 H, MCH 30.2, MCHC 30.0 L, RDW Std Deviation 58.3 H, RDW Coeff of Lee 15.6 H, Plt Count 251, MPV 9.1, Immature Gran % (Auto) 0.900, Neut % (Auto) 72.4 H, Lymph % (Auto) 15.1 L, [place] % (Auto) 6.6, Eos % (Auto) 4.8, Baso % (Auto) 0.2, Absolute Neuts (auto) 7.1, Absolute Lymphs (auto) 1.47, Nucleated RBC % 0, Sodium 149 H, Potassium 3.9, Chloride 121 H, Carbon Dioxide 24.0, Anion Gap 4 L, BUN 34 H, C reatinine 1.77 H, Estim Creat Clear Calc 27.05, Est GFR (MDRD) Af Amer 36 L, Est GFR (MDRD) Non-Af 30 L, BUN/Creatinine Ratio 19.2, Glucose 122 H, Calcium 7.3 L Microbiology: Microbiology 07/04/24 00:11 Blood Culture (Wb) - Anticubital Left Blood Culture - Final No growth in 5 days. 07/03/24 22:35 Stool Stool Occult Blood (LIZ) - Final D/C Instructions Discharge Diet: - (Moist pur?es with direct supervision. Supplement with tube feeds Vital AF 1.2 at goal rate 100 ml/hr x 12 hours at night from 7pm to 7am and 100 ml water flush every 4 hours x 24 hr day to provide ~ 1440 mp/ 90 gm pro / 1573 ml free water per day.) Meaningful Use Info Meaningful Use Meaningful Use Diagnoses (Choose all that apply): None applicable Ischemic Stroke Statin Dosing Therapy Reference: STATIN DOSE THERAPY REFERENCE: * Patients > 75 years receive moderate or high dose statin therapy. * Patients 75 years or YOUNGER should receive HIGH intensity statin dose unless contraindicated. You will be required to document reason for non-treatment if statin daily dose does not meet guidelines. HIGH DOSE STATIN THERAPY DAILY Atorvastatin > than or = to 40 mg Rosuvastatin > than or = to 20 mg Amlodipine + Atorvastatin > than or = to 2.5/40 mg Ezetimibe + Simvastatin 10/80 mg Simvastatin 80mg Discharge Plan Admission Admit Date/Time: 07/04/24 00:36 Primary Reason for Your Visit: GI bleed Attending Provider: Roman Knight Primary Care Provider: Jay Kincaid [employer]OUNTER Consulting Providers: Portia Shelby; Roz Amador Instructions Additional Instructions / Restrictions: Please follow-up with Dr. Verma. You had bleeding in your esophagus from your stent. The stent had to be removed. But being that your esophagus is still very irritated, that will need to be put in a later time. Please also follow-up with speech therapy. They are recommending just pur?ed textures at this time and supplementing that with tube feeds. Please drink more fluids as well. Your sodium is on the high side at this time and would benefit from more fluid intake. If you are unable to drink that, please put that through your PEG tube. Discharge Orders/Prescriptions Prescriptions: New acetaminophen 650 mg/20.3 mL Solution 650 mg G-tube Q6H PRN PRN (Reason: Pain 1-10 Or Fever) Qty: 0 0RF amoxicillin-pot clavulanate 400-57 mg/5 mL suspension for reconstitution 10 ml PO Q12H 2 Days Qty: 40 0RF polyethylene glycol 3350 [Miralax] 17 gram/dose powder 17 g PO DAILY Qty: 119 0RF Continued cholecalciferol (vitamin D3) 50 mcg (2,000 unit) capsule 100 mcg PO DAILY Qty: 60 11RF ondansetron HCl 4 mg tablet See Rx Instructions PO Q6H PRN (Reason: nausea and vomiting) Qty: 90 3RF Rx Instructions: take 1-2 orally every 6 hours PRN; hyoscyamine sulfate 0.125 mg tablet, sublingual 0.125 mg PO BID PRN (Reason: dyspepsia) Qty: 14 3RF methimazole 5 MG tablet 5 mg PO SUMOWEFR oxybutynin chloride 15 mg tablet extended release 24hr 15 mg PO DAILY Patient Comments: take 1 tablet by mouth every morning polyethylene glycol 3350 [Miralax] 17 gram/dose Powder 17 g PO DAILY PRN (Reason: constipation) Prolia 60 mg/mL Syringe 60 mg SUBCUT .Q6MO lorazepam 2 mg tablet 2 mg PO 4X/DAY losartan 25 mg tablet 25 mg PO DAILY lamotrigine 100 mg tablet 200 mg PO DAILY Patient Comments: take 1 tablet by mouth once daily for 2 WEEKS then INCREASE to 1 ... (REFER TO PRESCRIPTION NOTES). cinacalcet 30 mg Tablet 60 mg PO BID 30 Days Qty: 120 0RF memantine 10 MG tablet 10 mg PO DAILY estradiol 0.01 % (0.1 mg/gram) cream 1 applic vaginal .3 TIMES WEEKLY ferrous sulfate 325 MG tablet 325 mg PO BID Osmolite 1.2 Mp 0.06 gram-1.2 kcal/mL liquid 948 ml feeding tube QHS Rx Instructions: runs at 75ml/hr with 1000ml Normal Saline flush from 10pm until 8:30am scopolamine base 1 mg over 3 days patch 3 day 1 patch transdermal Q3D Qty: 10 0RF lansoprazole 30 mg capsule,delayed release(DR/EC) 30 mg PO BID Qty: 60 11RF glycopyrrolate 2 mg tablet 2 mg PO BID-TID PRN (Reason: secretions) Qty: 60 2RF metoclopramide HCl 5 mg tablet 5 mg PO QAC Qty: 90 0RF Rx Instructions: administer 30 minutes before meals Referrals / Follow Up: [facility] [Provider Group] - Within 2 Weeks Jay Kincaid RANGE MOUNTER, [facility]-C [Primary Care Provider] - Within 2 Weeks Disposition Disposition (needs filled in before D/C Order can be placed): Home Health Service Charges/Coding Visit Charges Inpatient E&M: 61533 Disch Hosp >30min
--- NOTE | 2024-07-10 14:22 | NURSING ---
I spoke with Severiano with [facility] to let her know that the pt will be d/c today and I faxed over the d/c summary.
[2024-07-10 15:09] VITALS: BP 139/93; PULSE 76; RESP 16; TEMP 37; O2SAT 97
== END 2024-07-10 15:54 | disposition home health service (06) | DRG 919 ==
LOC: ED 23:41 → ICU 07-04 00:58 → PCU 07-09 17:57
PROVIDERS: Internal Medicine Gastroenterology; Student in an Organized Health Care Education/Training Program; Admitting Provider Internal Medicine; Emergency Provider Emergency Medicine; PCP Nurse Practitioner Family
PROC: 0DJ08ZZ Inspection of Upper Intestinal Tract, Via Natural or Artificial Opening Endoscopic (ICD-10-PCS; CPT 43235; principal; 2024-07-04 15:55)
DX: T85.838A Hemorrhage due to other internal prosthetic devices, implants and grafts, initial encounter (principal); J69.0 Pneumonitis due to inhalation of food and vomit; G21.19 Other drug induced secondary parkinsonism; E87.0 Hyperosmolality and hypernatremia; E87.1 Hypo-osmolality and hyponatremia; K22.10 Ulcer of esophagus without bleeding; N17.9 Acute kidney failure, unspecified; D62 Acute posthemorrhagic anemia; I95.9 Hypotension, unspecified; F02.80 Dementia in other diseases classified elsewhere, unspecified severity, without behavioral disturbance, psychotic disturbance, mood disturbance, and anxiety; F31.9 Bipolar disorder, unspecified; N18.32 Chronic kidney disease, stage 3b; I12.9 Hypertensive chronic kidney disease with stage 1 through stage 4 chronic kidney disease, or unspecified chronic kidney disease; E05.90 Thyrotoxicosis, unspecified without thyrotoxic crisis or storm; Z93.1 Gastrostomy status; K56.41 Fecal impaction; K22.2 Esophageal obstruction; G30.9 Alzheimer's disease, unspecified; E86.0 Dehydration; E21.0 Primary hyperparathyroidism; K44.9 Diaphragmatic hernia without obstruction or gangrene; K31.84 Gastroparesis; E83.52 Hypercalcemia; R13.10 Dysphagia, unspecified; T43.595A Adverse effect of other antipsychotics and neuroleptics, initial encounter; R29.6 Repeated falls; Y73.8 Miscellaneous gastroenterology and urology devices associated with adverse incidents, not elsewhere classified; N32.0 Bladder-neck obstruction; R53.81 Other malaise; R32 Unspecified urinary incontinence; Z93.4 Other artificial openings of gastrointestinal tract status; M81.0 Age-related osteoporosis without current pathological fracture; Z79.899 Other long term (current) drug therapy; Z87.891 Personal history of nicotine dependence
CPT/HCPCS: 36415; 71045; 74018; 74176; 74230; 74246; 80048; 80053; 80076; 81001; 82274; 82962; 83605; 83690; 83735; 84100; 84439; 84443; 84484; 85014; 85018; 85025; 85610; 85730; 86850; 86900; 86901; 86920; 87040; 88305; 88312; 92526; 92611; 93005; 94668; 94762; 97162; 97166; 97530; 97535; 97802; 97803; 99285; J7030; J7040; J7120; P9016; A4216; J0295; J2405; J3490

== ENCOUNTER 2024-07-15 10:34 | Day surgery (SDC) | payer MEDICARE, SELFPAY ==
[2024-07-15] VITALS (7 sets, daily range): BP systolic 120–154; BP diastolic 85–99; PULSE 78–79; RESP 16; TEMP 36.1–36.5; O2SAT 99–100; BMI 20.9
[2024-07-15] MEDS: Lactated Ringers 1,000 ML 15 ML IV (11:08)
--- NOTE | 2024-07-15 11:11 | PCM.PRE.AN2 ---
ASA Classification* ASA Classification ASA Classification: 3 Assessment & Plan Anesthesia* Anesthesia Assessment Anesthesia Assessment: Discussed sedation and/or anesthesia options, risks, benefits, and alternatives with patient/parents/legal guardian/POA. Questions invited. The patient/parents/legal guardian/POA seems to understand and agrees to proceed with anesthesia plan. Reviewed the physical assessment, medical history, allergy history and patient home medications list prior to surgery/procedure/anesthetic and documented any changes. Performed airway and anesthesia risk assessments. Anesthesia Type Anesthesia Type: MAC History Source History Obtained from:: Patient and Chart Anesthesia Focused Assessment* Temperature: 97.7 F Pulse Rate: 79 Blood Pressure: 154/99 Respiratory Rate: 16 Pulse Ox: 100 Oxygen Delivery Method: Room Air Airway Assessment Mouth opens: >3 cm Mallampati Score: II Teeth Condition: Caps/Crowns (Patient has many crowns. They are all tight.) Neck Range of motion (ROM): Full ROM Focused Labs Anesthesia Preop lab: CBC WBC 9.8 K/mm3 (4.4-11.0) 07/10/24 04:10 RBC 3.44 M/mm3 (4.2-5.4) L 07/10/24 04:10 Hgb 10.4 g/dL (12.0-15.0) L 07/10/24 04:10 Hct 34.7 % (37-47) L 07/10/24 04:10 Plt Count 251 K/mm3 (150-450) 07/10/24 04:10 CHEMISTRY Potassium 3.9 mmol/L (3.5-5.1) 07/10/24 04:10 Sodium 149 mmol/L (136-145) H 07/10/24 04:10 Magnesium 2.6 mg/dL (1.6-2.6) 07/04/24 02:00 Phosphorus 3.9 mg/dL (2.5-4.9) 07/04/24 02:00 BUN 34 mg/dL (7-18) H 07/10/24 04:10 Creatinine 1.77 mg/dL (0.55-1.02) H 07/10/24 04:10 Glucose 122 mg/dL (74-106) H 07/10/24 04:10 POC Glucose 79 mg/dL (74-106) 07/08/24 05:54 TSH 0.323 uIU/mL (0.358-3.740) L 07/04/24 02:00 COAG PT 12.8 SECONDS (11.7-14.9) 07/03/24 20:44 Pre-Assessment Diagnosis/Proposed Procedure Planned Operative Procedure(s): EGD with Stent Anesthesia History Anesthesia History - clip loading machine adjuster: Anesthesia History - clip loading machine adjuster Hx Hospitalization No 07/13/24 14:42 Any Problems With Anesthesia No 07/13/24 14:42 Cholinesterase deficiency No 07/13/24 14:42 You/Your Family Experience No 07/13/24 14:42 fever (hyperthermia) with Relationship Recent Exposure to Contagious No 07/15/24 10:50 Disease Does patient have nerve No 07/13/24 14:42 stimulator Patient instructed to have device shut off --Does patient have Pacemaker No 07/15/24 10:50 or ICD? When Was Last Pacemaker Check QUESTION #4 FULL TEXT: You/Your Family Experience fever (hyperthermia) with Anesthesia Last Oral Intake Last Oral intake: Last Oral Intake NPO since 22:00 07/15/24 10:50 Meds taken in AM with sips of Yes 07/15/24 10:50 water? Meds patient instructed to ATIVAN, LAMITRIGINE, 07/15/24 10:50 take am of surgery LOSARTAN, MENTANTINE-via peg tube SCOPOLAMINE PATCH PONV PONV - clip loading machine adjuster: PONV - clip loading machine adjuster Female Yes 07/13/24 14:42 HX of Motion Sickness No 07/13/24 14:42 HX of N/V After Surgery No 07/13/24 14:42 Non-Smoker Yes 07/13/24 14:42 Duration of Surgery greater No 07/13/24 14:42 than 60 minutes Number of Risk Factors 2 07/13/24 14:42 PONV Score Moderate Risk 07/13/24 14:42 Height & Weight Height & Weight: Anesthesia: Height & Weight Height 5 ft 5 in 07/15/24 10:50 Weight: 57 kg 07/15/24 10:50 Body Mass Index (BMI) 20.9 07/15/24 10:50 Respiratory Assessment Respiratory Assessment - clip loading machine adjuster: Respiratory Tract Infection Hx - clip loading machine adjuster Hx Respiratory Tract Infection No 07/13/24 14:42 Any additional information?: Yes Hx Respiratory Tract Infection: Yes (Patient was recently hospitalized for aspiration pneumonia the week before ) STOP Sleep Apnea STOP Sleep Apnea - clip loading machine adjuster: STOP Sleep Apnea - clip loading machine adjuster Hx Hypertension No 07/13/24 14:42 Hx Sleep Apnea No 07/13/24 14:42 CPAP No 07/13/24 14:42 BIPAP No 07/13/24 14:42 Do you snore loudly (louder No 07/13/24 14:42 than talking or can be heard Do you often feel tired/ No 07/13/24 14:42 fatigued/ sleepy during daytime? Has anyone observed you stop No 07/13/24 14:42 breathing during sleep? STOP Results Negative 07/13/24 14:42 QUESTION #5 FULL TEXT : Do you snore loudly (louder than talking or can be heard through closed doors)? Tobacco Use History Tobacco Use History - clip loading machine adjuster: Tobacco Use History - clip loading machine adjuster Tobacco Use Smoking Status Former smoker 07/13/24 14:42 Hx Tobacco Use No 07/13/24 14:42 Years Smoking Packs Smoked per Day Smoking Cessation Date was No - quit smoking greater 07/13/24 14:42 within the last 15 years than 15 years ago Hx Smoking Cessation Date 09/05/16 07/13/24 14:42 Hx Smoking Cessation No 07/13/24 14:42 Counseling Hematologic Medial History Hematologic Hx - clip loading machine adjuster: Hematologic Medical Hx - vending machine servicer Hx of Blood Transfusion Yes 07/13/24 14:42 Hx of Transfusion in last 3 Yes 07/13/24 14:42 Months Date of Last Transfusion (if 06/202407/13/24 14:42 within last 3 months) Ever experience any problems No 07/13/24 14:42 with transfusion(s)? Specify any problems Hx of Preganancy in last 3 No 07/13/24 14:42 Months Nurse Filling Out Transfusion VCHRISTIN 07/13/24 14:42 & Questions: Date: 07/13/24 07/13/24 14:42 Time: 14:44 07/13/24 14:42 Patient unable to answer at this time (ie. confused, unrespo /Reproduction History /Reproductive History - clip loading machine adjuster: /Reproductive Hx- clip loading machine adjuster Hx Now Gestational Age (in weeks): EDC: Hx Hx Para Hx Section SAB No 07/13/24 14:42 Active Medications Active Medications: Current Medications Generic Name Dose Route Start Last Admin Trade Name Freq PRN Reason Stop Dose Admin Lactated Ringer's 1,000 mls @ 15 mls/hr 07/15/24 11:00 07/15/24 11:08 IV 15 mls/hr .Q48H BINA Administration PFSH Medical History History of Clostridium difficile infection Arthritis History of renal disease History of echocardiogram History of Mohs micrographic surgery for skin cancer Acute uremia Anemia History of jejunostomy tube placement Hypertension Iron deficiency anemia History of gastrostomy tube placement Acute renal insufficiency Anemia, unspecified Stenosis of esophagus Erosive esophagitis UTI (urinary tract infection) Gram-negative bacteremia Severe malnutrition Severe malnutrition Severe dehydration Wears glasses Post-menopausal Bipolar disorder Diabetes insipidus Thyroid disease Bladder disease Back pain Dietary restriction History of hiatal hernia Gastric reflux Former smoker Generalized weakness Unsteady gait History of edema Gastroparesis Nondiabetic gastroparesis Dysphagia GI bleed Tardive dys[place] History of herpes zoster Hypertension Delirium due to multiple etiologies Hypercalcemia CITLALY (acute kidney injury) Hypernatremia Secondary hyperparathyroidism of renal origin Bipolar disorder with moderate depression Pulmonary emboli Anemia Anxiety Difficulty chewing Bipolar disorder Home Medications ?Medication ?Instructions ?Recorded ?Last Taken ?Type methimazole 5 mg tablet 5 mg PO SUMOWEFR Thyroid 10/04/20 01/14/23 History denosumab 60 mg/mL subcutaneous 60 mg subcut .Q6MO osteoporosis 09/05/22 08/27/22 History syringe (Prolia) oxybutynin chloride 15 mg 15 mg PO DAILY Overactive bladder 09/05/22 01/14/23 History tablet,extended release 24 hr polyethylene glycol 3350 17 17 g PO DAILY PRN constipation 09/05/22 09/05/22 History gram/dose oral powder (Miralax) lamotrigine 100 mg tablet 200 mg PO DAILY Bipolar Disorder 03/19/23 07/15/24 History losartan 25 mg tablet 25 mg PO DAILY BP 03/19/23 07/15/24 History memantine 10 mg tablet 10 mg PO DAILY Check with primary 04/20/23 07/15/24 History doctor lorazepam 2 mg tablet 2 mg PO 4X/DAY 06/11/23 07/15/24 History cholecalciferol (vitamin D3) 50 100 mcg (2 x 50 mcg (2,000 unit)) 12/15/23 Unknown Rx mcg (2,000 unit) capsule PO DAILY #60 caps hyoscyamine sulfate 0.125 mg 0.125 mg PO BID PRN dyspepsia #14 03/29/24 Unknown Rx sublingual tablet tabs ondansetron HCl 4 mg tablet See Rx Instructions PO Q6H PRN 03/29/24 Unknown Rx nausea and vomiting #90 tabs estradiol 0.01% (0.1 mg/gram) 1 applic vaginal .3 TIMES WEEKLY 04/06/24 Unknown History vaginal cream ferrous sulfate 325 mg (65 mg 325 mg PO BID SUPPLEMENT 04/06/24 Unknown History iron) tablet scopolamine base 1 mg over 3 days 1 patch transdermal Q3D #10 ea 04/12/24 07/15/24 Rx transdermal patch lansoprazole 30 mg capsule,delayed 30 mg PO BID #60 caps 04/22/24 Unknown Rx release glycopyrrolate 2 mg tablet 2 mg PO BID-TID PRN secretions #60 06/21/24 Unknown Rx tabs metoclopramide HCl 5 mg tablet 5 mg PO QAC gastroparesis #90 tabs 06/21/24 Unknown Rx nutritional supplements 0.06 948 ml feeding tube QHS 07/04/24 Unknown History gram-1.2 kcal/mL oral liquid (Osmolite 1.2 Mp) acetaminophen 650 mg/20.3 mL oral 650 mg (20.3 mL) G-tube Q6H PRN 07/10/24 Unknown Rx solution PRN Pain 1-10 Or Fever #0 mL polyethylene glycol 3350 17 17 g PO DAILY #119 grams 07/10/24 Unknown Rx gram/dose oral powder (Miralax) cinacalcet 30 mg tablet 60 mg PO DAILY 07/13/24 Unknown History Allergy/AdvReac Type Severity Reaction Status Date / Time No Known Allergies Allergy Verified 07/13/24 14:33 Family History Father CVA (cerebral vascular accident) Sister CVA (cerebral vascular accident) Cancer Surgical History History of esophagogastroduodenoscopy (EGD) History of esophagogastroduodenoscopy (EGD) Hx of esophagogastroduodenoscopy Social History household members: spouse housing: house Smoking Status: Former smoker Tobacco: How many years used: 4 second hand exposure: Yes alcohol intake: never substance use type: does not use what type of physical activity do you participate in: other details: OT PT - [facility] [place] frequency: daily [place]ent[place]/jehovah's witness: Pent[employer]ostalism seatbelt use: always additional social history: Ambulates at baseline without assistive device Review of Systems (Anesthesia) ROS Narrative System reviewed and no additional complaints, except as documented.
--- NOTE | 2024-07-15 12:05 | RAD_ITS ---
PROCEDURE: Esophageal stent placement. DATE OF EXAMINATION: July 15, 2024. INDICATION: Female, 74 years old. Esophageal cancer. FLUOROSCOPY TIME (if supplied): (53 seconds) minutes/seconds. 6.71 mGy. 4 images were submitted. RAD/Fluoroscopy 1 Hr or Less IMPRESSION: Intraoperative fluoroscopic services provided for stent placement. Electronically Signed: Cheng Schmitt MD at 13:17 EDT ,
--- NOTE | 2024-07-15 12:06 | PCM.HP.STD ---
HPI - General General Date of Admission: 07/15/24 Date of Service: 07/15/24 Chief Complaint: dysphagia HPI Narrative SIMONA HERNANDEZ, is a 74 F who presents for esophageal stent placement. She recently to the emergency department at [facility] on the evening of 07/03/2024 for with a chief complaint of weakness. She had been having several episodes where she got profoundly weak and had lowered herself to the ground of the past 2 days. She has significant ecchymosis on bilateral knees. She was not complaining of any abdominal pain, nausea, or vomiting. She evidently has had a chronic cough over the last 3 weeks. She has a feeding tube it has been there for at least a year. 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 She had no bleeding noted to the upper GI tract at that time. Her PEG tube was noted to be eroded so it was exchanged at that time. CBC on presentation showed a white count of 20.9, hemoglobin of 8.6, and a left shift was present with an 86.4 neutrophilia. After she was hydrated hemoglobin was repeated and found to be 6.6 this blood was ordered. There was high suspicion of GI bleed at the time of admission due to her dark stools thus the repeat in her hemoglobin. Her chemistry panel showed mild hyponatremia the sodium 135, markedly elevated BUN/creatinine at 106 and 4.11 respectively (baseline between 2.1 and 2.4), mild hypercalcemia which she has chronic issues with and takes calcium at and normal liver functions. Her UA was not consistent with infection. Chest x-rays are unremarkable. CT of the abdomen pelvis was performed and showed G-tube in place with distention of the rectosigmoid colon and a large amount of stool suspicious of fecal impaction but no bowel obstruction, bladder distention and displaced due to stool, bilateral nephrolithiasis without hydronephrosis, multifocal airspace disease in the lower lungs and presumed esophageal stent with partial occlusion noted. We repeated her egd and removed her esophageal stent. She comes back in for esophageal replacement. [facility] Medical History History of Clostridium difficile infection Arthritis History of renal disease History of echocardiogram History of Mohs micrographic surgery for skin cancer Acute uremia Anemia History of jejunostomy tube placement Hypertension Iron deficiency anemia History of gastrostomy tube placement Acute renal insufficiency Anemia, unspecified Stenosis of esophagus Erosive esophagitis UTI (urinary tract infection) Gram-negative bacteremia Severe malnutrition Severe malnutrition Severe dehydration Wears glasses Post-menopausal Bipolar disorder Diabetes insipidus Thyroid disease Bladder disease Back pain Dietary restriction History of hiatal hernia Gastric reflux Former smoker Generalized weakness Unsteady gait History of edema Gastroparesis Nondiabetic gastroparesis Dysphagia GI bleed [place]ard[place] History of herpes zoster Hypertension Delirium due to multiple etiologies Hypercalcemia CITLALY (acute kidney injury) Hypernatremia Secondary hyperparathyroidism of renal origin Bipolar disorder with moderate depression Pulmonary emboli Anemia Anxiety Difficulty chewing Bipolar disorder Home Medications ?Medication ?Instructions ?Recorded ?Last Taken ?Type methimazole 5 mg tablet 5 mg PO SUMOWEFR Thyroid 10/04/20 01/14/23 History denosumab 60 mg/mL subcutaneous 60 mg subcut .Q6MO osteoporosis 09/05/22 08/27/22 History syringe (Prolia) oxybutynin chloride 15 mg 15 mg PO DAILY Overactive bladder 09/05/22 01/14/23 History tablet,extended release 24 hr polyethylene glycol 3350 17 17 g PO DAILY PRN constipation 09/05/22 09/05/22 History gram/dose oral powder (Miralax) lamotrigine 100 mg tablet 200 mg PO DAILY Bipolar Disorder 03/19/23 07/15/24 History losartan 25 mg tablet 25 mg PO DAILY BP 03/19/23 07/15/24 History memantine 10 mg tablet 10 mg PO DAILY Check with primary 04/20/23 07/15/24 History doctor lorazepam 2 mg tablet 2 mg PO 4X/DAY 06/11/23 07/15/24 History cholecalciferol (vitamin D3) 50 100 mcg (2 x 50 mcg (2,000 unit)) 12/15/23 Unknown Rx mcg (2,000 unit) capsule PO DAILY #60 caps hyoscyamine sulfate 0.125 mg 0.125 mg PO BID PRN dyspepsia #14 03/29/24 Unknown Rx sublingual tablet tabs ondansetron HCl 4 mg tablet See Rx Instructions PO Q6H PRN 03/29/24 Unknown Rx nausea and vomiting #90 tabs estradiol 0.01% (0.1 mg/gram) 1 applic vaginal .3 TIMES WEEKLY 04/06/24 Unknown History vaginal cream ferrous sulfate 325 mg (65 mg 325 mg PO BID SUPPLEMENT 04/06/24 Unknown History iron) tablet scopolamine base 1 mg over 3 days 1 patch transdermal Q3D #10 ea 04/12/24 07/15/24 Rx transdermal patch lansoprazole 30 mg capsule,delayed 30 mg PO BID #60 caps 04/22/24 Unknown Rx release glycopyrrolate 2 mg tablet 2 mg PO BID-TID PRN secretions #60 06/21/24 Unknown Rx tabs metoclopramide HCl 5 mg tablet 5 mg PO QAC gastroparesis #90 tabs 06/21/24 Unknown Rx nutritional supplements 0.06 948 ml feeding tube QHS 07/04/24 Unknown History gram-1.2 kcal/mL oral liquid (Osmolite 1.2 Mp) acetaminophen 650 mg/20.3 mL oral 650 mg (20.3 mL) G-tube Q6H PRN 07/10/24 Unknown Rx solution PRN Pain 1-10 Or Fever #0 mL polyethylene glycol 3350 17 17 g PO DAILY #119 grams 07/10/24 Unknown Rx gram/dose oral powder (Miralax) cinacalcet 30 mg tablet 60 mg PO DAILY 07/13/24 Unknown History Allergy/AdvReac Type Severity Reaction Status Date / Time No Known Allergies Allergy Verified 07/13/24 14:33 Family History Father CVA (cerebral vascular accident) Sister CVA (cerebral vascular accident) Cancer Surgical History History of esophagogastroduodenoscopy (EGD) History of esophagogastroduodenoscopy (EGD) Hx of esophagogastroduodenoscopy Social History household members: spouse housing: house Smoking Status: Former smoker Tobacco: How many years used: 4 second hand exposure: Yes alcohol intake: never substance use type: does not use what type of physical activity do you participate in: other details: OT [facility] [place] frequency: daily valentina/latter day: Islam seatbelt use: always additional social history: Ambulates at baseline without assistive device ROS Constitutional Constitutional: Reports fatigue and weakness; Denies anorexia, change in weight, chills, fever(s), malaise, night sweats or other Eyes Eyes: Denies blurry vision, change in eye color, change in vision, discharge from eye(s), double vision, erythema, eye pain, loss of vision or other ENT HEENT: Denies abnormal hearing, dysphagia, ear pain, epistaxis, headache(s), hearing loss, nasal congestion, nasal discharge, post nasal drip, sinus pressure, sore throat or other Cardiovascular Cardiovascular: Denies chest pain, claudication, dyspnea on exertion, edema, lightheadedness, orthopnea, palpitations, paroxysmal nocturnal dyspnea, rapid heart rate, syncope or other Respiratory/Chest Respiratory/Chest: Reports cough; Denies dyspnea, excessive phlegm production, hemoptysis, productive cough, shortness of breath at rest, shortness of breath with exertion, wheezing or other Gastrointestinal Gastrointestinal: Reports constipation; Denies abdominal pain, coffee ground emesis, diarrhea, dyspepsia, hematemesis, hematochezia, loose stools, melena, nausea, vomiting or other Genitourinary Genitourinary: Denies burning urination, difficulty urinating, dysuria, hematuria, nocturia, urinary frequency, urinary hesitancy, urinary incontinence, urinary urgency or other Musculoskeletal Musculoskeletal: Reports joint pain and joint stiffness; Denies arthralgias, back pain, joint swelling, myalgias, neck pain or other Neurologic Neurologic: Reports abnormal gait and tremor(s); Denies abnormal speech, confusion, disequilibrium, dizziness, focal weakness, headache(s), numbness, paresthesias, seizure-like activity, seizures, syncope, tingling or other Psychiatric Psychiatric: Reports anxiety, depression and other Details: History of bipolar disease Endocrine Endocrinology: Denies change in body appearance, cold intolerance, excessive sweating, heat intolerance, polydipsia, polyuria or other Hematologic/Lymphatic Hematologic/Lymphatic: Denies anemia, easy bleeding, easy bruising, lymphadenopathy or other Allergic/Immunologic Allergic/Immunologic: Denies rhinitis, hives, eczemia, asthma or other Vital Signs Vital Signs Vital Signs: 07/15/24 10:50 07/15/24 10:50 07/15/24 11:21 Temperature 97.7 F L 97.7 F L Temperature Source Temporal Pulse Rate 79 79 Respiratory Rate 16 16 Respiratory Pattern Normal Blood Pressure 154/99 H 154/99 H Blood Pressure Mean 117 Blood Pressure Source Monitor Blood Pressure Position Semi-Fowlers Blood Pressure Location Left Arm Pulse Ox 100 100 Oxygen Delivery Method Room Air Room Air Weight Weight: 125 lb 10.616 oz Body Mass Index (BMI) 20.9 Physical Exam Const alert and no apparent distress Resp normal respiratory effort and no retractions Neuro Sensorium / Orientation: awake and alert Assessment & Plan Assessment/Plan (1) Acute renal failure: (2) Anemia requiring transfusions: (3) Leukocytosis: (4) Esophageal obstruction: (5) Bladder outlet obstruction: (6) Fecal impaction: (7) Constipation: (8) Aspiration pneumonia: (9) Acute hypotension: (10) Hypercalcemia: PLAN: Plan 74-year-old with multiple comorbidities and long history of benign esophageal stricture status post esophageal stent, severe gastroparesis secondary to medicines for depression status post PEG tube acute on chronic anemia secondary to suspected GI bleed -Baseline hemoglobin has been running between 10 and 12 -8.6 on presentation but patient hypotensive and appeared to be dehydrated so fluids given and repeat was obtained and found to be 6.6 -We repeat her egd with stent replacement today.
--- NOTE | 2024-07-15 13:09 | OP.EGD_ITS ---
Patient Name: Fior Escamilla Procedure Date: 07/15/2024 11:10 AM Date of : 1950 Age: 74 Procedure: Upper GI endoscopy Indications: Dysphagia Providers: Francis Verma DO Referring MD: Jay Kincaid Medicines: Monitored Anesthesia Care Patient Profile: This is a 74 year old female. Refer to note in patient chart for documentation of history and physical. Patient has symptoms of dysphagia with both liquids and solids. Complications: No immediate complications. Procedure: Pre-Anesthesia Assessment: - Prior to the procedure, a History and Physical was performed, and patient medications and allergies were reviewed. The patient is competent. The risks and benefits of the procedure and the sedation options and risks were discussed with the patient. All questions were answered and informed consent was obtained. Patient identification and proposed procedure were verified by the physician in the pre-procedure area. Mental Status Examination: alert and oriented. Airway Examination: normal oropharyngeal airway and neck mobility. Respiratory Examination: clear to auscultation. CV Examination: normal. Prophylactic Antibiotics: The patient does not require prophylactic antibiotics. Prior Anticoagulants: The patient has taken no anticoagulant or antiplatelet agents. ASA Grade Assessment: II - A patient with mild systemic disease. After reviewing the risks and benefits, the patient was deemed in satisfactory condition to undergo the procedure. The anesthesia plan was to use monitored anesthesia care (MAC). Immediately prior to administration of medications, the patient was re-assessed for adequacy to receive sedatives. The heart rate, respiratory rate, oxygen saturations, blood pressure, adequacy of pulmonary ventilation, and response to care were monitored throughout the procedure. The physical status of the patient was re-assessed after the procedure. After obtaining informed consent, the endoscope was passed under direct vision. Throughout the procedure, the patient's blood pressure, pulse, and oxygen saturations were monitored continuously. The Endoscope was introduced through the mouth, and advanced to the second part of duodenum. The upper GI endoscopy was accomplished without difficulty. The patient tolerated the procedure well. Scope In: 12:28:23 PM Scope Out: 12:53:30 PM Total Procedure Duration Time 0 hours 25 minutes 7 seconds Findings: LA Grade D (one or more mucosal breaks involving at least 75% of esophageal circumference) esophagitis with bleeding was found 30 to 38 cm from the incisors. Coagulation for hemostasis using heater probe was successful. Estimated blood loss was minimal. One benign-appearing, intrinsic severe stenosis was found 30 to 36 cm from the incisors. This stenosis measured 6 cm (in length). The stenosis was traversed after dilation. A TTS dilator was passed through the scope. Dilation with a 15-16.5-18 mm balloon dilator was performed to 15 mm under fluoroscopic guidance. The dilation site was examined following endoscope reinsertion and showed complete resolution of luminal narrowing. This was stented with an 18 mm x 12.3 cm WallFlex covered stent under fluoroscopic guidance, proximal margin at 30 cm and distal margin at 38 cm from the incisors. A large hiatal hernia was present. There was evidence of an intact gastrostomy with a patent G-tube present in the gastric body. The second portion of the duodenum was normal. Impression: - LA Grade D erosive esophagitis with bleeding. Treated with a heater probe. - Benign-appearing esophageal stenosis. Dilated. Prosthesis placed. - Large hiatal hernia. - Intact gastrostomy with a patent G-tube present. - Normal second portion of the duodenum. - No specimens collected. Recommendation: - Discharge patient to home. - Full liquid diet today. - Continue present medications. Procedure Code(s): --- Professional --- 30479, Esophagogastroduodenoscopy, flexible, transoral; with placement of endoscopic stent (includes pre- and post-dilation and guide wire passage, when performed) 82883, 59,51, Esophagogastroduodenoscopy, flexible, transoral; with control of bleeding, any method 97984, 26, Intraluminal dilation of strictures and/or obstructions (eg, esophagus), radiological supervision and interpretation CPT copyright 2021 [employer]. All rights reserved. The codes documented in this report are preliminary and upon source water protection specialist review may be revised to meet current compliance requirements. Francis Verma DO 07/15/2024 1:09:31 PM This report has been signed electronically. Number of Addenda: 0 Note Initiated On: 07/15/2024 11:10 AM
--- NOTE | 2024-07-15 13:10 | OP.CCLET_ITS ---
07/15/2024 Jay Kincaid Re : Upper GI endoscopy procedure for Fior Escamilla Dear Codi This procedure was performed on Monday, July 15, 2024. My impressions and recommendations are as follows: Impressions : - LA Grade D erosive esophagitis with bleeding. Treated with a heater probe. - Benign-appearing esophageal stenosis. Dilated. Prosthesis placed. - Large hiatal hernia. - Intact gastrostomy with a patent G-tube present. - Normal second portion of the duodenum. - No specimens collected. Recommendations : - Discharge patient to home. - Full liquid diet today. - Continue present medications. My findings are described in the full procedure note, which is enclosed. If I can be of further assistance, please feel free to contact me at . Sincerely, Francis Friend, 07/15/2024 1:09:31 PM This report has been signed electronically.
--- NOTE | 2024-07-15 13:21 | PCM.POST.ANE ---
Anesthesia: Postop Eval I Current Vital Signs Temperature: 97.1 F Pulse Rate: 79 Blood Pressure: 120/85 Respiratory Rate: 16 Pulse Ox: 99 Oxygen Delivery Method: Room Air Assessment Airway patent: Yes Spontaneous unlabored respirations: Yes Mental status: Awake and Calm nausea: No Vomiting: No Anesthesia Complication: No Fluid Hydration Crystalloid volume administer (ml): 800 Total IV fluid infused: 800 Progress Note Anesthesia document: Postop Eval 1 completed: Yes
--- NOTE | 2024-07-15 15:18 | PCM.POSTANE2 ---
Anesthesia Postop Eval I Sum Postop Eval Completion status Anesthesia document: Postop Eval 1 completed: Yes Anesthesia Postop Eval I Summary Anesthesia Postop Eval I Summary: Anesthesia Postop Eval I: Assessment Summary Airway patent Yes 07/15/24 13:22 [email or web address] Spontaneous unlabored Yes 07/15/24 13:22 [email or web address] respirations Mental status Awake,Calm 07/15/24 13:22 [email or web address] nausea No 07/15/24 13:22 [email or web address] Vomiting No 07/15/24 13:22 [email or web address] Anesthesia Postop Eval I: Fluid Summary Crystalloid volume administer 800 07/15/24 13:22 [email or web address] (ml) Colloids volume administered ( ml) Blood Product volume administered (ml) Total IV fluid infused 800 07/15/24 13:22 [email or web address] Anesthesia Postop Eval I: Summary Notes Anesthesia Complication No 07/15/24 13:22 [email or web address] Anesthesia Complication Comment: Post-operative progress note Anesthesia: Postop Eval II Evaluation Mental status: Awake and Calm Pain Level: 0 nausea: No Vomiting: No Complications Anesthesia Complication: No
== END 2024-07-15 14:07 | disposition home or self-care (01) ==
LOC: EN 10:37 → AC 10:37
PROVIDERS: PCP Nurse Practitioner Family; Referring Provider Nurse Practitioner Family; Visit Provider Internal Medicine Gastroenterology
PROC: 0DJ08ZZ Inspection of Upper Intestinal Tract, Via Natural or Artificial Opening Endoscopic (ICD-10-PCS; CPT 43235; principal; 2024-07-15 11:25)
DX: K22.2 Esophageal obstruction (principal); Z93.1 Gastrostomy status; K44.9 Diaphragmatic hernia without obstruction or gangrene; I10 Essential (primary) hypertension; E87.1 Hypo-osmolality and hyponatremia; E83.52 Hypercalcemia; I95.9 Hypotension, unspecified; Z87.891 Personal history of nicotine dependence; Z79.899 Other long term (current) drug therapy; K31.84 Gastroparesis; F32.A Depression, unspecified; K22.11 Ulcer of esophagus with bleeding; K21.9 Gastro-esophageal reflux disease without esophagitis
CPT/HCPCS: 43266; 43255; 76000; J7120; J2405

== ENCOUNTER 2024-08-02 13:06 | Outpatient (RCR) | payer MEDICARE, SELFPAY ==
[2024-07-10 04:40] VITALS: BMI 20.4
[2024-08-02 14:24] LABS: Ionized Calcium Order ORDER TUBE
[2024-08-02 14:41] LABS: Absolute Lymphocyte Count 1.29 X10^3/uL (0.83-4.51); Absolute Neutrophil Count 5.3 X10^3/uL (2.0-7.7); Basophil# 0.04 X10^3/uL; Basophil% 0.5 % (0-1); Eosinophil# 0.24 X10^3/uL; Eosinophils% 3.1 % (0-5); Hemoglobin 9.8 g/dL (12.0-15.0); Lymphocyte # 1.29 X10^3/ul (0.83-4.51); Lymphocyte % 16.8 % (19-41); Mean Corp Hgb Conc 30.6 g/dL (32-36); Mean Corpuscular Hgb 30.5 pg (27.0-32.0); Mean Corpuscular Volume 99.7 fL (81-99); Mean Platelet Vol. 9.5 fl (6.2-12.0); Monocyte# 0.81 X10^3/uL; Monocyte% 10.5 % (0-10); NRBC Flagged by Analyzer 0 % (0-5); Neutrophil # 5.25 X10^3/uL (2.7-7.7); Neutrophil % 68.4 % (47-70); Platelet Count 291 K/mm3 (150-450); RBC Distribution Width CV 14.3 % (11.6-14.6); Red Blood Count 3.21 M/mm3 (4.2-5.4); White Blood Count 7.7 K/mm3 (4.4-11.0)
[2024-08-02 14:54] LABS: PTHIN 88.8 pg/mL (18.4-80.1)
[2024-08-02 14:57] LABS: Vitamin D,25 Hydroxy 50.9 ng/mL
[2024-08-02 15:03] LABS: ALB/GLOB Ratio 0.9 RATIO (0.9-2.4); AST(SGOT) 11 U/L (15-37); Alanine Aminotransfer ALT/SGPT 12 U/L (13-56); Albumin, Serum 3.2 g/dL (3.2-5.0); Alkaline Phosphatase 77 U/L (45-117); Anion Gap 5 (5-15); BUN 53 mg/dL (7-18); BUN/Creat Ratio 21.7 RATIO (10-20); Calcium,Total 10.2 mg/dL (8.5-10.1); Chloride 100 mmol/L (98-107); Creatinine, Serum 2.44 mg/dL (0.55-1.02); EST Glomerular Filtration Rate 21 mL/min (>60); Est Glom Filt Rate - Afr Amer 25 mL/min (>60); Free T3 2.5 pg/mL (2.18-3.98); Globulin 3.7 g/dL (2.2-4.2); Glucose 94 mg/dL (74-106); Phosphorus 4.5 mg/dL (2.5-4.9); Potassium 4.7 mmol/L (3.5-5.1); Protein, Total 6.9 g/dL (6.4-8.2); Sodium Level 135 mmol/L (136-145); T4 Free Direct 1.05 ng/dL (0.76-1.46); Thyroid Stim Hormone (TSH) 0.294 uIU/mL (0.358-3.740)
[2024-08-02 15:36] LABS: Ionized Calcium 5.34 mg/dL (4.36-5.20)
[2024-08-02 16:01] LABS: Protein, Urine (Random) 17.5 mg/dL (<11.9); Protein:Creat Ratio 902 mg/g CRE (0-200)
== END 2024-08-02 18:00 | disposition home or self-care (01) ==
LOC: LAB 13:06
PROVIDERS: Family Provider Nurse Practitioner Family; PCP Nurse Practitioner Family; Referring Provider Internal Medicine Endocrinology, Diabetes & Metabolism; Visit Provider Nurse Practitioner Family
DX: E05.90 Thyrotoxicosis, unspecified without thyrotoxic crisis or storm; E21.3 Hyperparathyroidism, unspecified; M81.0 Age-related osteoporosis without current pathological fracture; E55.9 Vitamin D deficiency, unspecified; N18.32 Chronic kidney disease, stage 3b
CPT/HCPCS: 36415; 80053; 82306; 82330; 82570; 83970; 84100; 84156; 84439; 84443; 84481; 85025

== ENCOUNTER 2024-09-15 11:39 | Outpatient (RCR) | payer MEDICARE, SELFPAY ==
[2024-08-09 04:27] VITALS: BMI 20.4
[2024-09-15 12:49] LABS: Hematocrit 35.6 % (37-47); Hemoglobin 11.1 g/dL (12.0-15.0); Mean Corp Hgb Conc 31.2 g/dL (32-36); Mean Corpuscular Hgb 31.4 pg (27.0-32.0); Mean Corpuscular Volume 100.8 fL (81-99); Platelet Count 273 K/mm3 (150-450); RBC Distribution Width CV 13.4 % (11.6-14.6); RBC Distribution Width SD 50.4 fl (35.1-43.9); Red Blood Count 3.53 M/mm3 (4.2-5.4); White Blood Count 8.7 K/mm3 (4.4-11.0)
[2024-09-15 12:56] LABS: Protein, Urine (Random) 19.3 mg/dL (<11.9); Protein:Creat Ratio 1055 mg/g CRE (0-200)
[2024-09-15 13:08] LABS: PTHIN 78.9 pg/mL (18.4-80.1)
[2024-09-15 13:12] LABS: Albumin, Serum 3.9 g/dL (3.2-5.0); BUN 64 mg/dL (7-18); BUN/Creat Ratio 28.2 RATIO (10-20); Calcium,Total 10.2 mg/dL (8.5-10.1); Chloride 102 mmol/L (98-107); Creatinine, Serum 2.27 mg/dL (0.55-1.02); EST Glomerular Filtration Rate 22 mL/min (>60); Est Glom Filt Rate - Afr Amer 27 mL/min (>60); Glucose 89 mg/dL (74-106); Phosphorus 4.8 mg/dL (2.5-4.9); Potassium 4.3 mmol/L (3.5-5.1); Sodium Level 137 mmol/L (136-145); Vitamin D,25 Hydroxy 47.6 ng/mL
== END 2024-10-08 18:00 | disposition home or self-care (01) ==
LOC: LAB 11:39
PROVIDERS: Family Provider Nurse Practitioner Family; PCP Nurse Practitioner Family; Referring Provider Internal Medicine Endocrinology, Diabetes & Metabolism; Visit Provider Nurse Practitioner Family
DX: N18.32 Chronic kidney disease, stage 3b
CPT/HCPCS: 36415; 80069; 82306; 82570; 83970; 84156; 85027

== ENCOUNTER 2024-11-21 11:03 | Emergency (ER) | payer MEDICARE, SELFPAY ==
[2024-11-21 11:03] VITALS: BP 117/85; PULSE 90; RESP 16; TEMP 36.8; O2SAT 99; BMI 21.9
--- NOTE | 2024-11-21 11:13 | EX.ED.DYSGE1 ---
HPI History of Present Illness Chief Complaint: Constipation Detail of Chief Complaint: Distention, abdominal discomfort no bowel movement x 2 weeks Informant: patient and spouse/S.O. Onset/Context/Timing Onset: Weeks Context: Sudden Onset Timing: Continuous Quality: No bowel movement for 2 weeks Location: GI Current Severity: Patient states she cannot go to the bathroom Maximum Severity: Not applicable Worsened by: Nothing Relieved by: Nothing Associated Symptoms Associated Symptoms: Abdominal discomfort and distention Narrative Narrative: Patient is a 74-year-old woman. Patient has history of dysphagia. She has had 2 esophageal stents placed by Dr. Verma per patient and . She was sent in by her general practitioner because of no vomiting for 2 weeks. Patient is uncertain whether she has a fecal impaction. Patient denies fever, chills night sweats. Patient denies nausea or vomiting. Patient denies cold intolerance. Patient denies weight loss. Patient denies history of bowel obstruction. She does have a feeding tube in place because of increased secretions and problems with her esophagus. Prior similar symptoms: Yes Recent Illness/Hospitalization: No PFSH PFS Medical History History of Clostridium difficile infection Arthritis History of renal disease History of echocardiogram History of Mohs micrographic surgery for skin cancer Acute uremia Anemia History of jejunostomy tube placement Alzheimer disease Hypertension Iron deficiency anemia History of gastrostomy tube placement Secondary parkinsonism Acute renal insufficiency Gastric paresis Anemia, unspecified Stenosis of esophagus Erosive esophagitis UTI (urinary tract infection) Gram-negative bacteremia Severe malnutrition Severe malnutrition Severe dehydration Wears glasses Post-menopausal Bipolar disorder Diabetes insipidus Thyroid disease Bladder disease Back pain Dietary restriction History of hiatal hernia Gastric reflux Former smoker Generalized weakness Unsteady gait History of edema Gastroparesis Nondiabetic gastroparesis Dysphagia GI bleed Tardive dyskinesia Falls History of herpes zoster Hypertension Delirium due to multiple etiologies Hypercalcemia CITLALY (acute kidney injury) Hypernatremia Secondary hyperparathyroidism of renal origin Bipolar disorder with moderate depression Pulmonary emboli Anemia Anxiety Difficulty chewing Bipolar disorder Home Medications ?Medication ?Instructions ?Recorded ?Last Taken ?Type methimazole 5 mg tablet 5 mg PO SUMOWEFR Thyroid 10/04/20 01/14/23 History denosumab 60 mg/mL subcutaneous 60 mg subcut .Q6MO osteoporosis 09/05/22 08/27/22 History syringe (Prolia) oxybutynin chloride 15 mg 15 mg PO DAILY Overactive bladder 09/05/22 01/14/23 History tablet,extended release 24 hr polyethylene glycol 3350 17 17 g PO DAILY PRN constipation 09/05/22 09/05/22 History gram/dose oral powder (Miralax) lamotrigine 100 mg tablet 200 mg PO DAILY Bipolar Disorder 03/19/23 07/15/24 History losartan 25 mg tablet 25 mg PO DAILY BP 03/19/23 07/15/24 History memantine 10 mg tablet 10 mg PO DAILY Check with primary 04/20/23 07/15/24 History doctor lorazepam 2 mg tablet 2 mg PO 4X/DAY 06/11/23 07/15/24 History cholecalciferol (vitamin D3) 50 100 mcg (2 x 50 mcg (2,000 unit)) 12/15/23 Unknown Rx mcg (2,000 unit) capsule PO DAILY #60 caps hyoscyamine sulfate 0.125 mg 0.125 mg PO BID PRN dyspepsia #14 03/29/24 Unknown Rx sublingual tablet tabs estradiol 0.01% (0.1 mg/gram) 1 applic vaginal .3 TIMES WEEKLY 04/06/24 Unknown History vaginal cream ferrous sulfate 325 mg (65 mg 325 mg PO BID SUPPLEMENT 04/06/24 Unknown History iron) tablet lansoprazole 30 mg capsule,delayed 30 mg PO BID #60 caps 04/22/24 Unknown Rx release metoclopramide HCl 5 mg tablet 5 mg PO QAC gastroparesis #90 tabs 06/21/24 Unknown Rx nutritional supplements 0.06 948 ml feeding tube QHS 07/04/24 Unknown History gram-1.2 kcal/mL oral liquid (Osmolite 1.2 Mp) acetaminophen 650 mg/20.3 mL oral 650 mg (20.3 mL) G-tube Q6H PRN 07/10/24 Unknown Rx solution PRN Pain 1-10 Or Fever #0 mL polyethylene glycol 3350 17 17 g PO DAILY #119 grams 07/10/24 Unknown Rx gram/dose oral powder (Miralax) cinacalcet 30 mg tablet 60 mg PO DAILY 07/13/24 Unknown History glycopyrrolate 2 mg tablet 2 mg PO BID-TID PRN secretions #60 09/05/24 Unknown Rx tabs scopolamine base 1 mg over 3 days 1 patch transdermal Q3D #10 ea 10/11/24 Unknown Rx transdermal patch ondansetron HCl 4 mg tablet 4 - 8 mg (1 - 2 x 4 mg) PO Q6H PRN 11/15/24 Unknown Rx PRN for nausea/vomiting #90 TABLETS Allergy/AdvReac Type Severity Reaction Status Date / Time No Known Allergies Allergy Verified 11/21/24 11:05 Family History Father CVA (cerebral vascular accident) Sister CVA (cerebral vascular accident) Cancer Surgical History History of esophagogastroduodenoscopy (EGD) History of esophagogastroduodenoscopy (EGD) Hx of esophagogastroduodenoscopy Social History household members: spouse housing: house Smoking Status: Former smoker Tobacco: How many years used: 4 second hand exposure: Yes alcohol intake: never substance use type: does not use what type of physical activity do you participate in: other details: OT PT - [facility] [place] frequency: daily valentina/faith: Orthodoxy seatbelt use: always additional social history: Ambulates at baseline without assistive device ROS ROS ED Constitutional Constitutional ED: Denies chills, fever(s) or subjective Cardiovascular Cardiovascular: Denies chest pain or palpitations Respiratory/Chest Respiratory/Chest: Reports cough and other Details: Cough is chronic. Gastrointestinal Gastrointestinal: Reports abdominal pain and constipation; Denies diarrhea, melena, nausea or vomiting Neurologic Neurologic: Denies headache(s) or paresthesias Endocrine Endocrinology: Denies cold intolerance or heat intolerance Hematologic/Lymphatic Hematologic/Lymphatic: Reports systems reviewed and no addt'l complaints, except as documented EXAM Physical Exam Const Vital Signs: 11/21/24 11:03 11/21/24 13:03 Temperature 98.2 F Temperature Source Oral Pulse Rate 90 87 Respiratory Rate 16 16 Blood Pressure 117/85 H 118/78 Blood Pressure Mean 95 91 Pulse Ox 99 99 Oxygen Delivery Method Room Air Room Air Positive well nourished and well developed General Appearance ED: well developed, NAD and pallor HEENT Reports moist mucous membranes HEENT Narrative: Head is atraumatic normocephalic. Ears normal. Nares patent. Eyes PERRL and EOMs intact bilaterally General Eye ED: Negative for pale conjunctiva or scleral icterus Neck no lymphadenopathy, supple and no JVD Resp normal respiratory effort and clear to auscultation bilaterally Cardio regular rate, regular rhythm, S1 normal heart sound, S2 normal heart sound and no murmurs GI GI Narrative: Abdomen is distended tympanitic with decreased bowel sounds. There is no guarding or peritoneal findings. There may be slight tenderness. Patient has a fecal impaction on rectal exam. Stool is brown. Extremity normal to inspection General Extremety ED: Negative for edema General Extremity: Negative for edema Neuro oriented x3 and CN's II-XII intact bilaterally Sensorium / Orientation: alert Psych mental status grossly normal Skin no rashes or lesions noted and no wounds General Skin Exam: pallor; Negative for jaundice MDM MDM MDM Narrative Medical decision making narrative: There is no concern for an obstruction still patient is fluctuating. She does have a fecal impaction. This is in spite of taking MiraLAX on a regular basis and has been giving her Ex-Lax. We will digitally disimpact the patient. Patient had good results with digital disimpaction. There was still stool above the tip of my finger. Patient was given a soapsuds enema with good results. Plan is to discharge to home. Procedures Other Procedures Procedure(s): Digital disimpaction of fecal matter rectum Discharge Plan Triage Chief Complaint: Constipation ED Provider: Michael Pastor Dx/Rx/DC Orders Clinical Impression: Fecal impaction in rectum, Nephrogenic diabetes insipidus, Gastroparesis, Anxiety, GERD (gastroesophageal reflux disease), Abdominal distension Instructions: ED Fecal Impaction, Treated Prescriptions: No Action cholecalciferol (vitamin D3) 50 mcg (2,000 unit) capsule 100 mcg PO DAILY Qty: 60 11RF hyoscyamine sulfate 0.125 mg tablet, sublingual 0.125 mg PO BID PRN (Reason: dyspepsia) Qty: 14 3RF methimazole 5 MG tablet 5 mg PO SUMOWEFR oxybutynin chloride 15 mg tablet extended release 24hr 15 mg PO DAILY Patient Comments: take 1 tablet by mouth every morning polyethylene glycol 3350 [Miralax] 17 gram/dose Powder 17 g PO DAILY PRN (Reason: constipation) Prolia 60 mg/mL Syringe 60 mg SUBCUT .Q6MO lorazepam 2 mg tablet 2 mg PO 4X/DAY losartan 25 mg tablet 25 mg PO DAILY lamotrigine 100 mg tablet 200 mg PO DAILY Patient Comments: take 1 tablet by mouth once daily for 2 WEEKS then INCREASE to 1 ... (REFER TO PRESCRIPTION NOTES). memantine 10 MG tablet 10 mg PO DAILY estradiol 0.01 % (0.1 mg/gram) cream 1 applic vaginal .3 TIMES WEEKLY ferrous sulfate 325 MG tablet 325 mg PO BID Osmolite 1.2 Mp 0.06 gram-1.2 kcal/mL liquid 948 ml feeding tube QHS Rx Instructions: runs at 75ml/hr with 1000ml Normal Saline flush from 10pm until 8:30am acetaminophen 650 mg/20.3 mL Solution 650 mg G-tube Q6H PRN PRN (Reason: Pain 1-10 Or Fever) Qty: 0 0RF polyethylene glycol 3350 [Miralax] 17 gram/dose powder 17 g PO DAILY Qty: 119 0RF cinacalcet 30 mg Tablet 60 mg PO DAILY lansoprazole 30 mg capsule,delayed release(DR/EC) 30 mg PO BID Qty: 60 11RF metoclopramide HCl 5 mg tablet 5 mg PO QAC Qty: 90 0RF Rx Instructions: administer 30 minutes before meals glycopyrrolate 2 mg tablet 2 mg PO BID-TID PRN (Reason: secretions) Qty: 60 2RF scopolamine base 1 mg over 3 days patch 3 day 1 patch transdermal Q3D Qty: 10 3RF ondansetron HCl 4 mg tablet 4 - 8 mg PO Q6H PRN PRN (Reason: for nausea/vomiting) Qty: 90 1RF Primary Care Provider: Jay Kincaid NP Referrals: Jay Kincaid STOCK SAW OPERATOR, STOCK SAW OPERATOR-C [Primary Care Provider] - 3-5 Days if not improving Activity Restrictions/Additional Instructions: 1. MiraLAX 3 times a day for the next 5 days. Then twice a day for the next 5 days. Then 1 dose of MiraLAX daily thereafter Print Language: Spanish Disposition Disposition: Home, Self Care
[2024-11-21 13:03] VITALS: BP 118/78; PULSE 87; RESP 16; O2SAT 99
[2024-11-21 14:34] VITALS: BP 116/78; PULSE 76; RESP 16; O2SAT 99
== END 2024-11-21 14:36 | disposition home or self-care (01) ==
PROVIDERS: Emergency Provider Emergency Medicine; PCP Nurse Practitioner Family; Visit Provider Emergency Medicine
DX: K56.41 Fecal impaction (principal); G21.9 Secondary parkinsonism, unspecified; G30.9 Alzheimer's disease, unspecified; F02.80 Dementia in other diseases classified elsewhere, unspecified severity, without behavioral disturbance, psychotic disturbance, mood disturbance, and anxiety; N25.1 Nephrogenic diabetes insipidus; K31.84 Gastroparesis; I10 Essential (primary) hypertension; R05.9 Cough, unspecified; K21.00 Gastro-esophageal reflux disease with esophagitis, without bleeding; R13.10 Dysphagia, unspecified; F41.9 Anxiety disorder, unspecified; Z79.899 Other long term (current) drug therapy; Z87.891 Personal history of nicotine dependence
CPT/HCPCS: 99284

== ENCOUNTER → 2024-11-23 | Outpatient (CLI) | payer MEDICARE, SELFPAY ==
[2024-11-23 13:23] LABS: Ionized Calcium 1.16 mmol/L (1.09-1.30)
[2024-11-23 13:27] LABS: Hematocrit 38.9 % (37-47); Hemoglobin 12.3 g/dL (12.0-15.0); Mean Corp Hgb Conc 31.6 g/dL (32-36); Mean Corpuscular Hgb 31.5 pg (27.0-32.0); Mean Corpuscular Volume 99.7 fL (81-99); Mean Platelet Vol. 9.5 fl (6.2-12.0); Platelet Count 360 K/mm3 (150-450); RBC Distribution Width CV 12.9 % (11.6-14.6); RBC Distribution Width SD 46.6 fl (35.1-43.9); White Blood Count 14.6 K/mm3 (4.4-11.0)
[2024-11-23 14:04] LABS: Ionized Calcium Order ORDER TUBE
[2024-11-23 14:06] LABS: PTHIN 504.3 pg/mL (18.4-80.1)
[2024-11-23 14:15] LABS: Vitamin D,25 Hydroxy 64.6 ng/mL
[2024-11-23 14:20] LABS: ALB/GLOB Ratio 0.8 RATIO (0.9-2.4); AST(SGOT) 14 U/L (15-37); Alanine Aminotransfer ALT/SGPT 19 U/L (13-56); Albumin, Serum 3.7 g/dL (3.2-5.0); Alkaline Phosphatase 105 U/L (45-117); Anion Gap 6 (5-15); BUN 67 mg/dL (7-18); BUN/Creat Ratio 28.3 RATIO (10-20); Calcium,Total 8.8 mg/dL (8.5-10.1); Chloride 101 mmol/L (98-107); Creatinine, Serum 2.37 mg/dL (0.55-1.02); EST Glomerular Filtration Rate 21 mL/min (>60); Est Glom Filt Rate - Afr Amer 26 mL/min (>60); Free T3 2.9 pg/mL (2.18-3.98); Globulin 4.4 g/dL (2.2-4.2); Glucose 105 mg/dL (74-106); Potassium 5.2 mmol/L (3.5-5.1); Protein, Total 8.1 g/dL (6.4-8.2); Sodium Level 133 mmol/L (136-145); T4 Free Direct 1.32 ng/dL (0.76-1.46); Thyroid Stim Hormone (TSH) 0.519 uIU/mL (0.358-3.740)
== END | disposition home or self-care (01) ==
LOC: LAB 13:01
PROVIDERS: PCP Nurse Practitioner Family; Referring Provider Internal Medicine Endocrinology, Diabetes & Metabolism; Visit Provider Internal Medicine Endocrinology, Diabetes & Metabolism
DX: N18.4 Chronic kidney disease, stage 4 (severe) (principal); E05.90 Thyrotoxicosis, unspecified without thyrotoxic crisis or storm; E21.3 Hyperparathyroidism, unspecified; M81.0 Age-related osteoporosis without current pathological fracture; E55.9 Vitamin D deficiency, unspecified
CPT/HCPCS: 36415; 80053; 82306; 82330; 83970; 84439; 84443; 84481; 85027

== ENCOUNTER 2024-12-05 13:00 | Outpatient (RCR) | payer MEDICARE, SELFPAY ==
[2024-10-09 01:09] VITALS: BMI 20.4
[2024-12-05 14:31] LABS: Anion Gap 7 (5-15); BUN 64 mg/dL (7-18); BUN/Creat Ratio 26.7 RATIO (10-20); Calcium,Total 9.6 mg/dL (8.5-10.1); Chloride 104 mmol/L (98-107); EST Glomerular Filtration Rate 21 mL/min (>60); Est Glom Filt Rate - Afr Amer 25 mL/min (>60); Glucose 90 mg/dL (74-106); Potassium 4.8 mmol/L (3.5-5.1); Sodium Level 138 mmol/L (136-145)
== END 2024-12-05 18:00 | disposition home or self-care (01) ==
LOC: LAB 13:00
PROVIDERS: Family Provider Nurse Practitioner Family; PCP Nurse Practitioner Family; Referring Provider Internal Medicine Endocrinology, Diabetes & Metabolism; Visit Provider Nurse Practitioner Family
DX: N18.4 Chronic kidney disease, stage 4 (severe); E05.90 Thyrotoxicosis, unspecified without thyrotoxic crisis or storm; E21.3 Hyperparathyroidism, unspecified; M81.0 Age-related osteoporosis without current pathological fracture; E55.9 Vitamin D deficiency, unspecified
CPT/HCPCS: 36415; 80048

== ENCOUNTER → 2024-12-30 | Outpatient (CLI) | payer MEDICARE, SELFPAY ==
--- NOTE | 2024-12-30 10:00 | RAD_ITS ---
PROCEDURE: UPPER GI W/BA SWALLOW REASON FOR EXAM: History of gastroesophageal reflux. Esophageal stent. Weight loss. TECHNIQUE: The patient ingested barium. Multiple images of the esophagus and stomach were obtained. COMPARISON: Comparison is made with prior study dated July 05, 2024. FINDINGS: A stent is seen in the distal esophagus where there is persistent narrowing. No evidence of obstruction at this time. Gastroesophageal reflux. RAD/Upper GI w/BA Swallow IMPRESSION: Patency of the distal esophagus. Esophageal stent is in-situ. Reading Location: [place] [address]
== END | disposition home or self-care (01) ==
LOC: RAD 09:40
PROVIDERS: PCP Nurse Practitioner Family; Referring Provider Internal Medicine Gastroenterology; Visit Provider Internal Medicine Gastroenterology
DX: R13.10 Dysphagia, unspecified (principal)
CPT/HCPCS: 74246

== ENCOUNTER → 2025-01-18 | Outpatient (CLI) | payer MEDICARE, SELFPAY ==
--- NOTE | 2025-01-19 09:28 | SP.MBSS_ITS ---
Modified Barium Swallow Patient Information Study Date: 01/18/25 Study Time: 13:00 Direct Billable Minutes: 130 Total Minutes procedure & reportin Diagnosis: Dysphagia R13.10 Referring Physician: Francis Verma Reason for Referral: Re-assess swallow function, assess risk for aspiration, and determine recommendations for least restrictive diet textures and compensatory strategies to improve safety of swallow. Medical History: PMH: Hx of Cdiff, Arthritis, Hx of renal disease, Hx of Mohs micrographic surgery for skin cancer, Hx of jejunostomy tube placement, HTN, Iron deficiency anemia, History of gastrostomy tube placement, Stenosis of esophagus, Erosive esophagitis, UTI, Severe malnutrition, Severe dehydration, Bipolar disorder, Diabetes insipidus, Thyroid disease, Bladder disease, Back pain, Dietary restriction, History of hiatal hernia, Gastric reflux, Former smoker, Generalized weakness, Unsteady gait, History of edema, Nondiabetic gastroparesis, Dysphagia, Tardive dyskinesia, Falls, HTN, CITLALY, PE (See EMR for full PMH). This ESCALATOR CONSTRUCTOR department is familiar with the patient from [facility] of oropharyngeal and esophageal dysphagia. The patient has participated in 3 prior MBSS. Most recent MBSS 07/05/2024 revealed mild-moderate oropharyngeal dysphagia and continued esophageal dysphagia w/ the following diet recommendations: ?Thin Liquids (Clear liquids); Comment: Would not recommend advancement past thin liquids except for pleasure feeds due to poor esophageal clearance and chronic dysphagia secondary to esophageal stenosis. If sensation of retention, reflux, or regurgitation, please stop oral intake. PEG tube available to meet nutritional, hydration, and caloric needs. Compensatory Strategies: Small Sips, Slow Rate, Sitting upright and Remain sitting upright for 30 minutes after PO intake (60min after meals).? She was working w/ [facility] for oropharyngeal strengthening and monitoring diet tolerance. She has a home oropharyngeal exercise program. The patient has an extensive GI history including participation in 12 EGDs w/ Dr. Verma since 09/08/2022 w/ various findings including severe intrinsic esophageal stenosis s/p multiple dilation attempts, botox injection, and current esophageal stenting, hiatal hernia, esophagitis w/ bleeding, severe gastroparesis, PEG tube placement eventually replaced w/ PEJ tube (04/01/2023). Pt also complains of copious phlegm (GI note acknowledged secretions and prescribed hyoscyamine in 2022). Pt reports copious phlegm persists. She has been referred to ENT and neurology by GI. Per patietnt, ENT and neurology have not provided an explanation for copious phlegm. See GI documentation for full history. Nutrition needs are met via tube feeding w/ 080mL of tube feeding supplement and 1,000mL of water daily. By mouth, the pt is currently consuming pills that cannot be crushed, some liquids, and limited purees and soft solids at home; however, at times she will regurgitate. Pt and also report fear of food/PEG tube supplement impaction in stomach as they report this occurred in the past for her. She was referred for MBSS to re-assess swallow function and LRD textures, aspiration risk. ESCALATOR CONSTRUCTOR to include esophageal screens due to hx of severe esophageal dysphagia. Current Diet Ordered: Full liquids and pleasure feeds w/ PEG Dentition: Natural Teeth Mental Status: Impaired (Mild cognitive impairment per GI documentation) Respiratory Status: Oxygenating on Room Air Penetration-Aspiration Scale Penetration-Aspiration Scale: OBJECTIVE ASSESSMENT OF SWALLOW FUNCTION (QUANTITATIVE ? PER TRIAL): PENETRATION / ASPIRATION SCALE (ENGLISH): 1 = does not enter airway 2 = enters airway/above vocal folds/ejected 3 = enters airway/above vocal folds/not ejected 4 = enters airway/contacts vocal folds/ejected 5 = enters airway/contacts vocal folds/not ejected 6 = enters airway/below vocal folds/ejected 7 = enters airway/below vocal folds/not ejected despite effort 8 = enters airway/below vocal folds/no effort VIDEOFLOROSCOPIC SCALE SCORE (ENGLISH): Grade I = aspiration of material that has penetrated into the laryngeal vestibule, intact cough reflex Grade II = aspiration < 10 % of the bolus, intact cough reflex Grade III = aspiration of < 10 % of the bolus, reduced cough reflex or aspiration of > 10 % of the bolus, intact cough reflex Grade IV = aspiration of > 10 % of the bolus, reduced cough reflex Penetration-Aspiration Scale Score Thin Liquid via teaspoon: Result: 2= enter airway/above vocal folds/ejected Thin Liquid via teaspoon Trial 2: Result: 2= enter airway/above vocal folds/ejected Thin Liquid via small single sip: cup: Result: 1= does not enter airway Thin Liquid via sequential sips: cup: Result: 2= enter airway/above vocal folds/ejected Comment: Esophageal screen - Esophageal stent present. Retention of 50% of liquids in the lower portion of the stent w/ retrograde flow. Pudding via teaspoon: Result: 1= does not enter airway Comment: Esophageal screen - Previous trial mostly cleared. Retention of barium pudding in the lower portion of the stent. Mild retention just superior to the stent. Mandarin orange w/ barium pudding coating: Result: 1= does not enter airway Comment: Esophageal screen - Retention of mandarin orange coated in barium appearing around the stent, but not passing through initially. The esophagus did somewhat contract w/ some of the barium coated mandarin orange appearing to spill up and over and through the stent w/ retention in the lower retention of the stent. Thin Liquid via sequential sips:straw: Result: 2= enter airway/above vocal folds/ejected Comment: Esophageal screen - Similar to previous screen, retention of majority of liquids anteriorly and around the stent w/ eventual esophageal contraction causing most of the liquid to spill up and over and through the stent; however, continued retention of thin barium in the lower portion of the stent w/ retrograde flow. 11/12 Cookie: Result: 1= does not enter airway Comment: Esophageal screen - Retention of cookie in the lower portion of the esophageal stent, which mostly cleared w/ thin liquid wash. Portion of liquid wash initially settled anteriorly to the stent, but then mostly spilled up and over as the esophagus somewhat contracted. Oral Phase Labial Seal: No Labial Escape Tongue Control During Bolus Hold: Posterior escape of less than half of bolus Bolus Preparation/Mastication: Slow prolonged chewing/mashing with complete recollection Bolus Transport/Lingual Motion: Delayed initiation of tongue motion Oral Residue: Residue collection on oral structures Pharyngeal Phase Initiation of Pharyngeal Swallow: Bolus head at posterior laryngeal surgace of epiglottis Soft Palate Elevation: Trace column of contrast/air between soft palate and pharyngeal wall Laryngeal Elevation: Comp. Superior move thyroid cart w/comp. apprx arytenoid cart-epig pet Anterior Hyoid Excursion: Partial anterior movement Epiglottic Movement: Partial inversion (inconsistent) Laryngeal Vestibule Closure at Height of Swallow: Incomplete; narrow column of air/contrast in laryngeal vestibule (trace laryngeal penetration that fully ejected after the swallow) Pharyngeal Stripping Wave: Present - diminished Pharyngoesophageal Segment Opening: Parital distension and partial duration; parital obstruction of flow Tongue Base Retraction: Narrow column of contrast between tongue base & post. pharyngeal wall Pharyngeal Residue: Collection of residue within or on pharyngeal structures Esophageal Phase Esophageal Clearance: Esophageal retention w/ retrograde flow below pharyngoesophageal seg. Diagnosis/Impression Diagnosis: Mild oropharyngeal dysphagia R13.12; Severe esophageal dysphagia R13.14 Impression: The oral phase is marked by... -Min posterior loss of liquids prior to swallow onset. -Delayed tongue motion for A-P transport. -Slow, prolonged mastication of orange and cookie. -Piecemeal deglutition of pudding and solids. The pharyngeal phase is marked by... -Decreased anterior hyoid excursion and inconsistent epiglottic inversion; however, overall the patient demonstrated good airway closure during the swallow. -Trace laryngeal penetration that fully ejected after the swallow, but no aspiration. -Mildly decreased pharyngeal motility due to decreased TB retraction, pharyngeal stripping wave, and UES opening/duration w/ trace-mild pharyngeal residues. The esophageal phase is marked by... - Retention of mandarin orange coated in barium and liquid wash appearing around the stent, but not passing through initially. The esophagus did somewhat contract w/ some of the barium contrast appearing to spill up and over and through the stent w/ retention in the lower retention of the stent. -Retrograde flow of retention of liquids in the lower portion of the stent. The patient began having copious phlegm following the study. The ESCALATOR CONSTRUCTOR assisted her in wiping phlegm tinged w/ barium spilling out of her mouth over her lips 6X. ESCALATOR CONSTRUCTOR asked radiology tech to turn on fluroscopy again ~5min after the study was completed to see if the patient had retrograde flow of barium from GI tract, but this was not the case. Trace-mild oral residues on tongue surface. Mild retention of barium around and in the lower portion of the esophageal stent. Recommendations Diet: Thin Liquids (Full liquids) Comment: ESCALATOR CONSTRUCTOR spoke w/ Friend re: observations during the esophageal phase of the swallow. He is not recommending solids for pleasure feeds, and he would recommend continuing w/ full liquids. Compensatory Strategies: Small Sips, Slow Rate and Sitting upright (Sit upright 30-60min after po intake) Recommend Repeat Modified Barium Swallow: TBD Need for Skilled Speech Therapy Services: No Comment: The patient continues w/ mild oropharyngeal dysphagia. Pt feels her swallowing exercises from ST have helped her and she still completes them from time to time. Will recommend resuming home oropharyngeal exercise program from ST to maintain optimal oropharyngeal swallow function. ESCALATOR CONSTRUCTOR recommends completing these exercises as a maintenance exercise program 4-5X/week. If need for re- instruction, please consult OP ST. Recommended Referrals: GI Consult (Continue to follow w/ GI for management of esophageal dysphagia. Pt is still greatly concerned about copious phlegm production and does not feel her medications are managing the issue at this time.) Education Completed: 1. Described result of evaluation., 2. Pt understands evaluation & agrees with goals and treatment plan. and 4. Family/caregivers understand evaluation & agree w/ goals & tx plan. Status Active ST Patient: Active Contact Information [facility] Speech Therapy:: Tresa Frank M.A. CCC-ESCALATOR CONSTRUCTOR? Speech-Language Pathologist?? [facility] [address] [place] [address]? [email or web address]?? [phone]
== END | disposition home or self-care (01) ==
LOC: RAD 12:38
PROVIDERS: PCP Nurse Practitioner Family; Referring Provider Internal Medicine Gastroenterology; Visit Provider Internal Medicine Gastroenterology
DX: R13.10 Dysphagia, unspecified (principal)
CPT/HCPCS: 74230; 92611

== ENCOUNTER 2025-01-23 12:40 | Outpatient (RCR) | payer MEDICARE, SELFPAY | END 2025-02-06 23:59 | LOC: NS 12:40 | PROVIDERS: PCP Nurse Practitioner Family; Referring Provider Internal Medicine Gastroenterology; Visit Provider Internal Medicine Gastroenterology | DX: N18.32 Chronic kidney disease, stage 3b (principal); E86.0 Dehydration; R53.1 Weakness; Z93.1 Gastrostomy status; Z71.3 Dietary counseling and surveillance | CPT/HCPCS: 97802 ==

== ENCOUNTER → 2025-02-08 | Outpatient (CLI) | payer MEDICARE, SELFPAY ==
[2025-02-08 14:30] LABS: Hematocrit 32.6 % (37-47); Hemoglobin 10.4 g/dL (12.0-15.0); Mean Corp Hgb Conc 31.9 g/dL (32-36); Mean Corpuscular Hgb 30.6 pg (27.0-32.0); Mean Corpuscular Volume 95.9 fL (81-99); Mean Platelet Vol. 9.4 fl (6.2-12.0); Platelet Count 341 K/mm3 (150-450); RBC Distribution Width CV 12.4 % (11.6-14.6); White Blood Count 9.8 K/mm3 (4.4-11.0)
[2025-02-08 15:01] LABS: PTHIN 90 pg/mL (11-61)
[2025-02-08 15:18] LABS: Albumin, Serum 4.1 g/dL (3.4-4.8); Anion Gap 11 (5-15); BUN 81 mg/dL (4-19); BUN/Creat Ratio 28.8 RATIO (10-20); Calcium,Total 10.6 mg/dL (7.6-11.0); Carbon Dioxide 26.3 mmol/L (21.0-32.0); Chloride 98 mmol/L (98-108); Creatinine, Serum 2.81 mg/dL (0.70-1.20); EST Glomerular Filtration Rate 17 (>60); Glucose 102 mg/dL (70-99); Phosphorus 4.8 mg/dL (2.7-4.5); Potassium 4.8 mmol/L (3.3-5.1); Sodium Level 136 mmol/L (133-145)
[2025-02-08 18:45] LABS: Protein:Creat Ratio 2080 mg/g CRE (0-200)
== END | disposition home or self-care (01) ==
LOC: LAB 13:52
PROVIDERS: PCP Nurse Practitioner Family; Referring Provider Internal Medicine Nephrology; Visit Provider Internal Medicine Nephrology
DX: N18.32 Chronic kidney disease, stage 3b (principal)
CPT/HCPCS: 36415; 80069; 82306; 82570; 83970; 84156; 85027

== ENCOUNTER 2025-02-15 13:43 | Outpatient (RCR) | payer MEDICARE, SELFPAY ==
--- NOTE | 2025-02-15 16:37 | HP.SP.EVAL ---
Visit History Visit Info Date of Eval: 02/15/25 Visit: 1 Signal Supervisor: BROOKLYNN History Attending Doctor: Referring Doctor: Reason for Referral: DYSPHAGIA RX HERE Medical Diagnosis: Dysphagia Unspecified R13.10; Severe Esophageal Dysphagia R13.14 Date of Onset of Diagnosis: 02-01-25 Previous speech therapy: Yes Results: Achieved max rehab potential. Patient and caregiver able to demo teach back of diet modifications (PEG tube-thin liquids-please feeds w/ soft moist solids), swallow strategies, and oropharyngeal ther ex. Other Relevant Medical History/Diagnoses/Surgery: Stenosis of esophagus, Erosive esophagitis, UTI, Severe malnutrition, Severe dehydration, Bipolar disorder, Diabetes insipidus, Thyroid disease, History of hiatal hernia, Gastric reflux, Nondiabetic gastroparesis, Dysphagia, Tardive dyskinesia, Falls, HTN, CITLALY, PE Medications related to this diagnosis: See EMR for GI and secretion medications. Patient denies changes in copious secretions since trialing multiple medications. Smoking Status: Former smoker Diagnosis Diagnosis: Mild Oral Dysphagia R13.12 Pain Is pain an issue with your current prescribed condition?: No Personal Preferred language: Belizean Patient Allergies Allergies Allergies: Allergies No Known Allergies Allergy (Verified 01/03/25 12:55) Subjective Dysphagia Symptoms Reported Symptoms/Problems with: Drooling, Coughing, Difficulty Swallowing Solids and Weight Loss Other: Thick, tenacious, frothy phlgem Current Diet Solids Current Diet: Other Other: Thin Liquids only; PEG tube x5 bolus QD Current Diet Liquids Current Liquids: Thin Jasso free water Protocol: No NPO NPO - Alternative Nutrition Method: Gastrostomy Tube Date Tube Placed: 04-01-23 Objective Dysphagia Administered by Administered by: Self Thin Liquids Administred via: Cup Oral Transit: Delay > 1 seconds Bolus clearance: significant clearance/minimal residue Gagging: No Cough: none observed/unable to assess Pharyngeal phase: immediate laryngeal elevation Patient Report: Copius, tenacious and frothy secretions difficulty to clear. Tardive dyskinesias as labial and lingual twitching push secretions anteriorly. Comments: MBSS 01-18-25 with Tresa Frank M.A. CCC-HOME AND FAMILY LIVING PROFESSOR Diagnosis/Impression Diagnosis: Mild oropharyngeal dysphagia R13.12; Severe esophageal dysphagia R13.14 Impression: The oral phase is marked by... -Min posterior loss of liquids prior to swallow onset. -Delayed tongue motion for A-P transport. -Slow, prolonged mastication of orange and cookie. -Piecemeal deglutition of pudding and solids. The pharyngeal phase is marked by... -Decreased anterior hyoid excursion and inconsistent epiglottic inversion; however, overall the patient demonstrated good airway closure during the swallow. -Trace laryngeal penetration that fully ejected after the swallow, but no aspiration. -Mildly decreased pharyngeal motility due to decreased TB retraction, pharyngeal stripping wave, and UES opening/duration w/ trace-mild pharyngeal residues. The esophageal phase is marked by... - Retention of mandarin orange coated in barium and liquid wash appearing around the stent, but not passing through initially. The esophagus did somewhat contract w/ some of the barium contrast appearing to spill up and over and through the stent w/ retention in the lower retention of the stent. -Retrograde flow of retention of liquids in the lower portion of the stent. The patient began having copious phlegm following the study. The HOME AND FAMILY LIVING PROFESSOR assisted her in wiping phlegm tinged w/ barium spilling out of her mouth over her lips 6X. HOME AND FAMILY LIVING PROFESSOR asked nuclear monitoring technician to turn on fluroscopy again ~5min after the study was completed to see if the patient had retrograde flow of barium from GI tract, but this was not the case. Trace-mild oral residues on tongue surface. Mild retention of barium around and in the lower portion of the esophageal stent. Recommendations Diet: Thin Liquids (Full liquids) Comment: HOME AND FAMILY LIVING PROFESSOR spoke w/ Dr. Verma re: observations during the esophageal phase of the swallow. He is not recommending solids for pleasure feeds, and he would recommend continuing w/ full liquids. Compensatory Strategies: Small Sips, Slow Rate and Sitting upright (Sit upright 30-60min after po intake) Recommend Repeat Modified Barium Swallow: TBD Need for Skilled Speech Therapy Services: No Comment: The patient continues w/ mild oropharyngeal dysphagia. Pt feels her swallowing exercises from [facility] have helped her and she still completes them from time to time. Will recommend resuming home oropharyngeal exercise program from [facility] to maintain optimal oropharyngeal swallow function. HOME AND FAMILY LIVING PROFESSOR recommends completing these exercises as a maintenance exercise program 4-5X/week. If need for re-instruction, please consult OP ST. Recommended Referrals: GI Consult (Continue to follow w/ GI for management of esophageal dysphagia. Pt is still greatly concerned about copious phlegm production and does not feel her medications are managing the issue at this time.) Swallowing Impairment Contributing Factors to Swallowing Impairment: Reduced Oral Strength/Coordination/Sensation and Impaired Oral-Pharyngeal Transport Impact Impact on Safety & Functioning: Risk for Aspiration Comments: Continue with thin liquid diet. Patient at risk for reflux aspiration and choking with intake of solids. Recommendations Modified Barium Swallow/Cookie Swallow Recommended: No Swallowing Treatment: No Diet Texture Recommendations Liquids: Thin (Level 0) Jasso free water Protocol: No Other: Continue PEG feedings as prescribed by physician. Refer to information from combat systems officer for thin liquid diet. Patient at high risk for aspiration and choking with PO intake other than thin liquids due to severity of esophageal dysphagia. HOME AND FAMILY LIVING PROFESSOR reviewed MBSS video and report with patient and spouse. Provided verbal education on pulmonary risk of reflux aspiration or aspirate on emesis associated with esophageal motility. HOME AND FAMILY LIVING PROFESSOR provided written and verbal instruction for oropharyngeal ther ex, thin liquid diet options and means of modification, as well as swallow guidelines. Patient's lingual with thick, yellow-white, furry coating. HOME AND FAMILY LIVING PROFESSOR unable to scrape off. HOME AND FAMILY LIVING PROFESSOR suspects thrush and instructed spouse to consult with PCP for treatment. Spouse verbally acknowledged comprehension at this time. Safety Saftey Precautions/Swallowing Recommendations (Check all that Apply): Other (Specify Below) Other: -Small, single sips at slow rate -Upright positioning for all intake. -Sit upright for 30-60 minutes after intake Results Swallowing Within Normal Limits: No Swallowing Diagnosis: Oral Phase Dysphagia (R13.11) and Pharyngoesophageal Phase Dysphagia (R13.14) Additional: Mild Oral, Severe Esophageal Reference: Neuro-QoL instrument Radiation Oncology Patient Plan Plan Plan: No ST indicated at this time. Patient and caregiver able to demonstrate teach back of previously prescribed oropharyngeal ther ex program and need for daily completion. Spouse able to demonstrate teach back of need to adhere to thin liquids only, and make appropriate dietary choices based on dysphagia and RD recommendations. Spouse able to demonstrate teach back of PEG tube feeding and flushing schedule. Patient and spouse instructed to follow-up with physicians as scheduled. Recommendations Treatment Warranted: No Frequency Visits in this POC: 0 Education Patient has Indicated that the Following Identified Educational Needs: Psychological Factors The Patient has indicated that they have no educational or learning abilities that may effect their care.: Yes Patient Instruction Patient Education: Diagnosis, Treatment Plan, Safety Precautions, Diet Level and Home Exercise Program Person Taught: Patient, Family and Primary Caregiver Teaching Method: Discussion, Demonstration, Handout, Audiovisual, Protocol and Teach Back Response to teaching: Return Demonstration, Verbalize Understanding, Reinforcement Needed and Has Prior Knowledge
--- NOTE | 2025-02-15 16:37 | HP.SP.EVAL ---
Visit History Visit Info Date of Eval: 02/15/25 Visit: 1 Welt Wheeler: BROOKLYNN History Attending Doctor: Referring Doctor: Reason for Referral: DYSPHAGIA RX HERE Medical Diagnosis: Dysphagia Unspecified R13.10; Severe Esophageal Dysphagia R13.14 Date of Onset of Diagnosis: 02-01-25 Previous speech therapy: Yes Results: Achieved max rehab potential. Patient and caregiver able to demo teach back of diet modifications (PEG tube-thin liquids-please feeds w/ soft moist solids), swallow strategies, and oropharyngeal ther ex. Other Relevant Medical History/Diagnoses/Surgery: Stenosis of esophagus, Erosive esophagitis, UTI, Severe malnutrition, Severe dehydration, Bipolar disorder, Diabetes insipidus, Thyroid disease, History of hiatal hernia, Gastric reflux, Nondiabetic gastroparesis, Dysphagia, Tardive dyskinesia, Falls, HTN, CITLALY, PE Medications related to this diagnosis: See EMR for GI and secretion medications. Patient denies changes in copious secretions since trialing multiple medications. Smoking Status: Former smoker Diagnosis Diagnosis: Mild Oral Dysphagia R13.12 Pain Is pain an issue with your current prescribed condition?: No Personal Preferred language: Peruvian Patient Allergies Allergies Allergies: Allergies No Known Allergies Allergy (Verified 01/03/25 12:55) Subjective Dysphagia Symptoms Reported Symptoms/Problems with: Drooling, Coughing, Difficulty Swallowing Solids and Weight Loss Other: Thick, tenacious, frothy phlgem Current Diet Solids Current Diet: Other Other: Thin Liquids only; PEG tube x5 bolus QD Current Diet Liquids Current Liquids: Thin Jasso free water Protocol: No NPO NPO - Alternative Nutrition Method: Gastrostomy Tube Date Tube Placed: 04-01-23 Objective Dysphagia Administered by Administered by: Self Thin Liquids Administred via: Cup Oral Transit: Delay > 1 seconds Bolus clearance: significant clearance/minimal residue Gagging: No Cough: none observed/unable to assess Pharyngeal phase: immediate laryngeal elevation Patient Report: Copius, tenacious and frothy secretions difficulty to clear. Tardive dyskinesias as labial and lingual twitching push secretions anteriorly. Comments: MBSS 01-18-25 with Tresa Frank M.A. CCC-ACTING SECTION CHIEF Diagnosis/Impression Diagnosis: Mild oropharyngeal dysphagia R13.12; Severe esophageal dysphagia R13.14 Impression: The oral phase is marked by... -Min posterior loss of liquids prior to swallow onset. -Delayed tongue motion for A-P transport. -Slow, prolonged mastication of orange and cookie. -Piecemeal deglutition of pudding and solids. The pharyngeal phase is marked by... -Decreased anterior hyoid excursion and inconsistent epiglottic inversion; however, overall the patient demonstrated good airway closure during the swallow. -Trace laryngeal penetration that fully ejected after the swallow, but no aspiration. -Mildly decreased pharyngeal motility due to decreased TB retraction, pharyngeal stripping wave, and UES opening/duration w/ trace-mild pharyngeal residues. The esophageal phase is marked by... - Retention of mandarin orange coated in barium and liquid wash appearing around the stent, but not passing through initially. The esophagus did somewhat contract w/ some of the barium contrast appearing to spill up and over and through the stent w/ retention in the lower retention of the stent. -Retrograde flow of retention of liquids in the lower portion of the stent. The patient began having copious phlegm following the study. The ACTING SECTION CHIEF assisted her in wiping phlegm tinged w/ barium spilling out of her mouth over her lips 6X. ACTING SECTION CHIEF asked hot cell technician to turn on fluroscopy again ~5min after the study was completed to see if the patient had retrograde flow of barium from GI tract, but this was not the case. Trace-mild oral residues on tongue surface. Mild retention of barium around and in the lower portion of the esophageal stent. Recommendations Diet: Thin Liquids (Full liquids) Comment: ACTING SECTION CHIEF spoke w/ Dr. Verma re: observations during the esophageal phase of the swallow. He is not recommending solids for pleasure feeds, and he would recommend continuing w/ full liquids. Compensatory Strategies: Small Sips, Slow Rate and Sitting upright (Sit upright 30-60min after po intake) Recommend Repeat Modified Barium Swallow: TBD Need for Skilled Speech Therapy Services: No Comment: The patient continues w/ mild oropharyngeal dysphagia. Pt feels her swallowing exercises from [facility] have helped her and she still completes them from time to time. Will recommend resuming home oropharyngeal exercise program from [facility] to maintain optimal oropharyngeal swallow function. ACTING SECTION CHIEF recommends completing these exercises as a maintenance exercise program 4-5X/week. If need for re-instruction, please consult OP ST. Recommended Referrals: GI Consult (Continue to follow w/ GI for management of esophageal dysphagia. Pt is still greatly concerned about copious phlegm production and does not feel her medications are managing the issue at this time.) Swallowing Impairment Contributing Factors to Swallowing Impairment: Reduced Oral Strength/Coordination/Sensation and Impaired Oral-Pharyngeal Transport Impact Impact on Safety & Functioning: Risk for Aspiration Comments: Continue with thin liquid diet. Patient at risk for reflux aspiration and choking with intake of solids. Recommendations Modified Barium Swallow/Cookie Swallow Recommended: No Swallowing Treatment: No Diet Texture Recommendations Liquids: Thin (Level 0) Jasso free water Protocol: No Other: Continue PEG feedings as prescribed by physician. Refer to information from registered nurse maternal child for thin liquid diet. Patient at high risk for aspiration and choking with PO intake other than thin liquids due to severity of esophageal dysphagia. ACTING SECTION CHIEF reviewed MBSS video and report with patient and spouse. Provided verbal education on pulmonary risk of reflux aspiration or aspirate on emesis associated with esophageal motility. ACTING SECTION CHIEF provided written and verbal instruction for oropharyngeal ther ex, thin liquid diet options and means of modification, as well as swallow guidelines. Patient's lingual with thick, yellow-white, furry coating. ACTING SECTION CHIEF unable to scrape off. ACTING SECTION CHIEF suspects thrush and instructed spouse to consult with PCP for treatment. Spouse verbally acknowledged comprehension at this time. Safety Saftey Precautions/Swallowing Recommendations (Check all that Apply): Other (Specify Below) Other: -Small, single sips at slow rate -Upright positioning for all intake. -Sit upright for 30-60 minutes after intake Results Swallowing Within Normal Limits: No Swallowing Diagnosis: Oral Phase Dysphagia (R13.11) and Pharyngoesophageal Phase Dysphagia (R13.14) Additional: Mild Oral, Severe Esophageal Reference: Neuro-QoL instrument Radiation Oncology Patient Plan Plan Plan: No ST indicated at this time. Patient and caregiver able to demonstrate teach back of previously prescribed oropharyngeal ther ex program and need for daily completion. Spouse able to demonstrate teach back of need to adhere to thin liquids only, and make appropriate dietary choices based on dysphagia and RD recommendations. Spouse able to demonstrate teach back of PEG tube feeding and flushing schedule. Patient and spouse instructed to follow-up with physicians as scheduled. Recommendations Treatment Warranted: No Frequency Visits in this POC: 0 Education Patient has Indicated that the Following Identified Educational Needs: Psychological Factors The Patient has indicated that they have no educational or learning abilities that may effect their care.: Yes Patient Instruction Patient Education: Diagnosis, Treatment Plan, Safety Precautions, Diet Level and Home Exercise Program Person Taught: Patient, Family and Primary Caregiver Teaching Method: Discussion, Demonstration, Handout, Audiovisual, Protocol and Teach Back Response to teaching: Return Demonstration, Verbalize Understanding, Reinforcement Needed and Has Prior Knowledge
== END 2025-02-15 19:15 | disposition home or self-care (01) ==
LOC: SP 13:43
PROVIDERS: PCP Nurse Practitioner Family; Referring Provider Internal Medicine Gastroenterology; Visit Provider Internal Medicine Gastroenterology
DX: R13.10 Dysphagia, unspecified (principal)
CPT/HCPCS: 92610

== ENCOUNTER → 2025-02-16 | Outpatient (CLI) | payer MEDICARE, SELFPAY ==
[2025-02-16 11:59] LABS: Mucous, Urine 0 SEEN /hpf (<or=2+); Red Blood Cells-Urine 0 SEEN /hpf (0-5); Squamous Epithelial Cells - UA 0 SEEN /hpf (5-10)
[2025-02-16 15:43] LABS: Color, Urine Straw (Yellow); Glucose, Dipstick Normal (Normal); Ketone-Dipstick Negative (Negative); Leukocyte Esterase-Dipstick 500 /ul (Negative); Nitrite-Dipstick Negative (Negative); Occult Blood-Urine 50 /ul (Negative); Protein-Dipstick 30 mg/dl (Negative); Urine Bilirubin Dipstick Negative (Negative); Urine Clarity Turbid (Clear); Urine Urobilinogen Normal (Normal)
[2025-02-16 18:29] LABS: White Blood Cells >100 SEEN /hpf (0-5)
[2025-02-16 18:30] LABS: Bacteria 4+ /hpf (None Seen)
== END | disposition home or self-care (01) ==
LOC: LAB 11:56 → LABSPEC 14:07
PROVIDERS: PCP Nurse Practitioner Family; Referring Provider Internal Medicine Nephrology; Visit Provider Internal Medicine Nephrology
DX: R39.9 Unspecified symptoms and signs involving the genitourinary system (principal)
CPT/HCPCS: 81001; 87077; 87086; 87088

== ENCOUNTER 2025-03-15 13:58 | Outpatient (RCR) | payer MEDICARE, SELFPAY ==
[2024-12-10 02:59] VITALS: BMI 20.4
[2025-03-15 15:11] LABS: Anion Gap 11 (5-15); BUN 75 mg/dL (4-19); BUN/Creat Ratio 31.6 RATIO (10-20); Calcium,Total 9.9 mg/dL (7.6-11.0); Carbon Dioxide 28.8 mmol/L (21.0-32.0); Chloride 101 mmol/L (98-108); Creatinine, Serum 2.38 mg/dL (0.70-1.20); EST Glomerular Filtration Rate 21 (>60); Glucose 101 mg/dL (70-99); Sodium Level 140 mmol/L (133-145)
== END 2025-03-15 18:00 | disposition home or self-care (01) ==
LOC: LAB 13:58
PROVIDERS: Family Provider Nurse Practitioner Family; PCP Nurse Practitioner Family; Referring Provider Internal Medicine Endocrinology, Diabetes & Metabolism; Visit Provider Nurse Practitioner Family
DX: N18.32 Chronic kidney disease, stage 3b
CPT/HCPCS: 36415; 80048

== ENCOUNTER → 2025-03-28 | Outpatient (CLI) | payer MEDICARE, SELFPAY | END | disposition home or self-care (01) | LOC: LABSPEC 13:58 → LAB 13:59 | PROVIDERS: PCP Nurse Practitioner Family; Referring Provider Internal Medicine Nephrology; Visit Provider Internal Medicine Nephrology | DX: R39.9 Unspecified symptoms and signs involving the genitourinary system (principal) | CPT/HCPCS: 87086; 87088 ==

== ENCOUNTER 2025-05-30 13:32 | Outpatient (RCR) | payer MEDICARE, SELFPAY ==
[2025-04-09 19:03] VITALS: BMI 20.4
[2025-05-30 14:38] LABS: Ionized Calcium Order ORDER TUBE
[2025-05-30 14:40] LABS: Hematocrit 33.0 % (37-47); Hemoglobin 10.4 g/dL (12.0-15.0); Mean Corp Hgb Conc 31.5 g/dL (32-36); Mean Corpuscular Volume 99.1 fL (81-99); Mean Platelet Vol. 9.6 fl (6.2-12.0); Platelet Count 320 K/mm3 (150-450); RBC Distribution Width CV 13.8 % (11.6-14.6); RBC Distribution Width SD 50.3 fl (35.1-43.9); Red Blood Count 3.33 M/mm3 (4.2-5.4); White Blood Count 10.9 K/mm3 (4.4-11.0)
[2025-05-30 16:31] LABS: PTHIN 158 pg/mL (11-61)
[2025-05-30 17:02] LABS: AST(SGOT) 18 U/L (<=31); Alanine Aminotransfer ALT/SGPT 10 U/L (<=34); Albumin, Serum 4.2 g/dL (3.4-4.8); Alkaline Phosphatase 88 U/L (35-104); Anion Gap 14 (5-15); BUN 59 mg/dL (4-19); BUN/Creat Ratio 28.0 RATIO (10-20); Calcium,Total 9.9 mg/dL (7.6-11.0); Carbon Dioxide 24.1 mmol/L (21.0-32.0); Chloride 105 mmol/L (98-108); Free T3 2.5 pg/mL (2.18-3.98); Globulin 3.6 g/dL (2.2-4.2); Glucose 111 mg/dL (70-99); Potassium 4.7 mmol/L (3.3-5.1); Vitamin D,25 Hydroxy 67.6 ng/mL (30-100)
== END 2025-06-08 21:26 | disposition home or self-care (01) ==
LOC: LAB 13:32
PROVIDERS: Family Provider Nurse Practitioner Family; PCP Nurse Practitioner Family; Referring Provider Internal Medicine Endocrinology, Diabetes & Metabolism; Visit Provider Nurse Practitioner Family
DX: N18.4 Chronic kidney disease, stage 4 (severe); E05.90 Thyrotoxicosis, unspecified without thyrotoxic crisis or storm; E21.3 Hyperparathyroidism, unspecified; M81.0 Age-related osteoporosis without current pathological fracture; E55.9 Vitamin D deficiency, unspecified
CPT/HCPCS: 36415; 80053; 82306; 82330; 83970; 84436; 84439; 84443; 84481; 85027

== ENCOUNTER → 2025-07-27 | Outpatient (CLI) | payer MEDICARE, SELFPAY ==
--- NOTE | 2025-07-27 16:50 | RAD_ITS ---
PROCEDURE: CHEST PA AND LATERAL 07/27/2025 REASON FOR EXAM: COUGH TECHNIQUE: Procedure Code: RADCXR Modality: DX Procedure: CHEST PA AND LATERAL COMPARISON: 07/03/2024 FINDINGS: Hardware: None. Heart: The heart size is normal. Mediastinum: The mediastinal contour is unremarkable. Lungs: The lungs are clear. Bones: The bones are unremarkable. RAD/Chest PA and Lateral IMPRESSION: NO ACUTE FINDINGS. [facility]
== END | disposition home or self-care (01) ==
LOC: RAD 16:48
PROVIDERS: PCP Nurse Practitioner Family; Referring Provider Internal Medicine Gastroenterology; Visit Provider Internal Medicine Gastroenterology
DX: R05.9 Cough, unspecified (principal)
CPT/HCPCS: 71046

== ENCOUNTER 2025-08-02 10:09 | Day surgery (SDC) | payer MEDICARE, SELFPAY ==
--- NOTE | 2025-07-27 16:13 | PAT.ANESEVAL ---
Pre-Assessment Diagnosis/Proposed Procedure Planned Operative Procedure(s): EGD G TUBE REPLACMENT Anesthesia History Anesthesia History - data base administrator: Anesthesia History - data base administrator Hx Hospitalization No 07/27/25 15:41 Any Problems With Anesthesia No 07/27/25 15:41 Cholinesterase deficiency No 07/27/25 15:41 You/Your Family Experience No 07/27/25 15:41 fever (hyperthermia) with Relationship Recent Exposure to Contagious No 07/15/24 10:50 Disease Does patient have nerve No 07/27/25 15:41 stimulator Patient instructed to have device shut off --Does patient have Pacemaker or ICD? When Was Last Pacemaker Check QUESTION #4 FULL TEXT: You/Your Family Experience fever (hyperthermia) with Anesthesia Last Oral Intake Last Oral intake: Last Oral Intake NPO since Meds taken in AM with sips of water? Meds patient instructed to take am of surgery PONV PONV - data base administrator: PONV - data base administrator Female Yes 07/27/25 15:41 HX of Motion Sickness No 07/27/25 15:41 HX of N/V After Surgery No 07/27/25 15:41 Non-Smoker Yes 07/27/25 15:41 Duration of Surgery greater Yes 07/27/25 15:41 than 60 minutes Number of Risk Factors 3 07/27/25 15:41 PONV Score Moderate Risk 07/27/25 15:41 Height & Weight Height & Weight: Anesthesia: Height & Weight Height 5 ft 5 in 06/26/25 09:23 Respiratory Assessment Respiratory Assessment - data base administrator: Respiratory Tract Infection Hx - data base administrator Hx Respiratory Tract Infection No: QUESTIONABLE ASPIRATION 07/27/25 15:41 PNEUMONIA STOP Sleep Apnea STOP Sleep Apnea - data base administrator: STOP Sleep Apnea - data base administrator Hx Hypertension No 07/27/25 15:41 Hx Sleep Apnea No 07/27/25 15:41 CPAP No 07/27/25 15:41 BIPAP No 07/27/25 15:41 Do you snore loudly (louder No 07/27/25 15:41 than talking or can be heard Do you often feel tired/ Yes 07/27/25 15:41 fatigued/ sleepy during daytime? Has anyone observed you stop No 07/27/25 15:41 breathing during sleep? STOP Results Negative 07/27/25 15:41 QUESTION #5 FULL TEXT : Do you snore loudly (louder than talking or can be heard through closed doors)? Tobacco Use History Tobacco Use History - data base administrator: Tobacco Use History - data base administrator Tobacco Use Smoking Status Former smoker 07/27/25 15:41 Hx Tobacco Use No 07/27/25 15:41 Years Smoking Packs Smoked per Day Smoking Cessation Date was Yes - quit smoking within 15 07/27/25 15:41 within the last 15 years years Hx Smoking Cessation Date 09/05/16 07/27/25 15:41 Hx Smoking Cessation No 07/27/25 15:41 Counseling Hematologic Medial History Hematologic Hx - data base administrator: Hematologic Medical Hx - medical tech Hx of Blood Transfusion Yes 07/27/25 15:41 Hx of Transfusion in last 3 No 07/27/25 15:41 Months Date of Last Transfusion (if within last 3 months) Ever experience any problems No 07/27/25 15:41 with transfusion(s)? Specify any problems Hx of Preganancy in last 3 No 07/27/25 15:41 Months Nurse Filling Out Transfusion DSCHRIBER 07/27/25 15:41 & Questions: Date: 07/27/25 07/27/25 15:41 Time: 15:44 07/27/25 15:41 Patient unable to answer at this time (ie. confused, unrespo /Reproduction History /Reproductive History - data base administrator: /Reproductive Hx- data base administrator Hx Now Gestational Age (in weeks): EDC: Hx Hx Para Hx Section SAB No 07/27/25 15:41 PFSH Medical History (Updated 07/27/25 @ 15:55 by Shama Cheng) Aspiration pneumonia Cough History of pain when walking History of Clostridium difficile infection Arthritis History of renal disease History of echocardiogram History of Mohs micrographic surgery for skin cancer Acute uremia Anemia History of jejunostomy tube placement Alzheimer disease Iron deficiency anemia Dysphagia History of gastrostomy tube placement Acute renal insufficiency Gastric paresis Anemia, unspecified Stenosis of esophagus Erosive esophagitis UTI (urinary tract infection) Gram-negative bacteremia Severe malnutrition Severe malnutrition Severe dehydration Wears glasses Post-menopausal Bipolar disorder Diabetes insipidus Thyroid disease Bladder disease Back pain Dietary restriction History of hiatal hernia Gastric reflux Former smoker Generalized weakness Unsteady gait Gastroparesis Nondiabetic gastroparesis Dysphagia GI bleed Tardive dys[place]inesia [place] History of herpes zoster Hypertension Delirium due to multiple etiologies Hypercalcemia Hypernatremia Secondary hyperparathyroidism of renal origin Bipolar disorder with moderate depression Pulmonary emboli Anemia Anxiety Difficulty chewing Bipolar disorder Home Medications Medication Instructions Recorded Last Taken Type methimazole 5 mg tablet 5 mg feeding tube MOTUWETHFR 10/04/20 01/14/23 History Thyroid denosumab 60 mg/mL subcutaneous 60 mg subcut .Q6MO osteoporosis 09/05/22 08/27/22 History syringe (Prolia) polyethylene glycol 3350 17 17 g PO DAILY PRN constipation 09/05/22 09/05/22 History gram/dose oral powder (Miralax) lamotrigine 100 mg tablet 200 mg feeding tube DAILY Bipolar 03/19/23 07/15/24 History Disorder memantine 10 mg tablet 10 mg feeding tube DAILY Check 04/20/23 07/15/24 History with primary doctor lorazepam 2 mg tablet 2 mg PO 4X/DAY 06/11/23 07/15/24 History hyoscyamine sulfate 0.125 mg 0.125 mg PO BID PRN dyspepsia #14 03/29/24 Unknown Rx sublingual tablet tabs estradiol 0.01% (0.1 mg/gram) 1 applic vaginal .3 TIMES WEEKLY 04/06/24 Unknown History vaginal cream ferrous sulfate 325 mg (65 mg 325 mg PO DAILY SUPPLEMENT 04/06/24 Unknown History iron) tablet nutritional supplements 0.06 948 ml feeding tube QHS 07/04/24 Unknown History gram-1.2 kcal/mL oral liquid (Osmolite 1.2 Mp) acetaminophen 650 mg/20.3 mL oral 650 mg (20.3 mL) G-tube Q6H PRN 07/10/24 Unknown Rx solution PRN Pain 1-10 Or Fever #0 mL cinacalcet 30 mg tablet 60 mg PO DAILY 07/13/24 Unknown History cholecalciferol (vitamin D3) 50 100 mcg (2 x 50 mcg (2,000 unit)) 01/04/25 Unknown Rx mcg (2,000 unit) capsule PO DAILY #60 caps scopolamine base 1 mg over 3 days 1 patch transdermal Q3D #10 ea 04/26/25 Unknown Rx transdermal patch lansoprazole 30 mg capsule,delayed 30 mg PO BID #60 caps 05/05/25 Unknown Rx release oxybutynin chloride 15 mg 15 mg PO DAILY Overactive bladder 08/04/25 Unknown Rx tablet,extended release 24 hr #90 tabs MAGIC MOUTH WASH (BMX) 180 mL 5 ml PO Q4H PRN #180 mL 07/27/25 Unknown Rx suspension docusate sodium 100 mg capsule 100 mg PO DAILY 07/27/25 Unknown History (Colace) glycopyrrolate 2 mg tablet 2 mg feeding tube BID secretions 07/27/25 Unknown History ondansetron HCl 4 mg tablet 4 - 8 mg feeding tube Q6H PRN PRN 07/27/25 Unknown History for nausea/vomiting Allergy/AdvReac Type Severity Reaction Status Date / Time No Known Allergies Allergy Verified 07/27/25 15:33 Family History Father CVA (cerebral vascular accident) Sister CVA (cerebral vascular accident) Cancer Surgical History (Updated 07/27/25 @ 15:55 by Shama Cheng) History of esophagogastroduodenoscopy (EGD) History of esophagogastroduodenoscopy (EGD) Hx of esophagogastroduodenoscopy Social History household members: spouse housing: house Smoking Status: Former smoker Tobacco: How many years used: 4 second hand exposure: Yes alcohol intake: never substance use type: does not use what type of physical activity do you participate in: other details: OT - [employer] [employer] [facility] [place] frequency: daily valentina/orthodoxy: Gnosticist seatbelt use: always additional social history: Ambulates at baseline without assistive device Audit: Pertinent Findings Pertinent Findings EKG Perinent findings: 07/03/2024. Normal sinus rhythm. Echo (EF%) pertinent findings: 03/09/2023. EF of 65%. RVSP is 55 mmHg. No aortic valve stenosis noted. Additional pertinent findings: Creatinine is 2.1 on May 30, 2025. It has been elevated and fluctuating as far back as 2014. Recommendation Anesthesia Recommendation Anesthesia recommendation: F/U recommended (Pending chest x-ray.)
--- NOTE | 2025-07-28 13:30 | PAT.ANE_ITS ---
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 When Was Last Pacemaker Check QUESTION #4 FULL TEXT: You/Your Family Experience fever (hyperthermia) with Anesthesia Last Oral Intake Last Oral intake: Last Oral Intake NPO since Meds taken in AM with sips of water? Meds patient instructed to take am of surgery PONV PONV - business intelligence etl developer: PONV - business intelligence etl developer Female Yes 07/27/25 15:41 HX of Motion Sickness No 07/27/25 15:41 HX of N/V After Surgery No 07/27/25 15:41 Non-Smoker Yes 07/27/25 15:41 Duration of Surgery greater Yes 07/27/25 15:41 than 60 minutes Number of Risk Factors 3 07/27/25 15:41 PONV Score Moderate Risk 07/27/25 15:41 Height & Weight Height & Weight: Anesthesia: Height & Weight Height 5 ft 5 in 06/26/25 09:23 Respiratory Assessment Respiratory Assessment - business intelligence etl developer: Respiratory Tract Infection Hx - business intelligence etl developer Hx Respiratory Tract Infection No: QUESTIONABLE ASPIRATION 07/27/25 15:41 PNEUMONIA STOP Sleep Apnea STOP Sleep Apnea - business intelligence etl developer: STOP Sleep Apnea - business intelligence etl developer Hx Hypertension No 07/27/25 15:41 Hx Sleep Apnea No 07/27/25 15:41 CPAP No 07/27/25 15:41 BIPAP No 07/27/25 15:41 Do you snore loudly (louder No 07/27/25 15:41 than talking or can be heard Do you often feel tired/ Yes 07/27/25 15:41 fatigued/ sleepy during daytime? Has anyone observed you stop No 07/27/25 15:41 breathing during sleep? STOP Results Negative 07/27/25 15:41 QUESTION #5 FULL TEXT : Do you snore loudly (louder than talking or can be heard through closed doors)? 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 Specify any problems Hx of Preganancy in last 3 No 07/27/25 15:41 Months Nurse Filling Out Transfusion DSCHRIBER 07/27/25 15:41 & Questions: Date: 07/27/25 07/27/25 15:41 Time: 15:44 07/27/25 15:41 Patient unable to answer at this time (ie. confused, unrespo /Reproduction History /Reproductive History - business intelligence etl developer: /Reproductive Hx- business intelligence etl developer Hx Now Gestational Age (in weeks): EDC: Hx Hx Para Hx Section SAB No 07/27/25 15:41 PFSH Medical History Aspiration pneumonia Cough History of pain when walking History of Clostridium difficile infection Arthritis History of renal disease History of echocardiogram History of Mohs micrographic surgery for skin cancer Acute uremia Anemia History of jejunostomy tube placement Alzheimer disease Iron deficiency anemia Dysphagia History of gastrostomy tube placement Acute renal insufficiency Gastric paresis Anemia, unspecified Stenosis of esophagus Erosive esophagitis UTI (urinary tract infection) Gram-negative bacteremia Severe malnutrition Severe malnutrition Severe dehydration Wears glasses Post-menopausal Bipolar disorder Diabetes insipidus Thyroid disease Bladder disease Back pain Dietary restriction History of hiatal hernia Gastric reflux Former smoker Generalized weakness Unsteady gait Gastroparesis Nondiabetic gastroparesis Dysphagia GI bleed Tardive dys[place]inesia [place] History of herpes zoster Hypertension Delirium due to multiple etiologies Hypercalcemia Hypernatremia Secondary hyperparathyroidism of renal origin Bipolar disorder with moderate depression Pulmonary emboli Anemia Anxiety Difficulty chewing Bipolar disorder Home Medications Medication Instructions Recorded Last Taken Type methimazole 5 mg tablet 5 mg feeding tube MOTUWETHFR 10/04/20 01/14/23 History Thyroid denosumab 60 mg/mL subcutaneous 60 mg subcut .Q6MO ost eoporosis 09/05/22 08/27/22 History syringe (Prolia) polyethylene glycol 3350 17 17 g PO DAILY PRN constipa tion 09/05/22 09/05/22 History gram/dose oral powder (Miralax) lamotrigine 100 mg tablet 200 mg feeding tube DAILY Bi polar 03/19/23 07/15/24 History Disorder memantine 10 mg tablet 10 mg feeding tube DAILY Tara ck 04/20/23 07/15/24 History with primary doctor lorazepam 2 mg tablet 2 mg PO 4X/DAY 06/11/2307/11 History hyoscyamine sulfate 0.125 mg 0.125 mg PO BID PRN dyspe psia #14 03/29/24 Unknown Rx sublingual tablet tabs estradiol 0.01% (0.1 mg/gram) 1 applic vaginal .3 TIME S WEEKLY 04/06/24 Unknown History vaginal cream ferrous sulfate 325 mg (65 mg 325 mg PO DAILY SUPPLEME NT 04/06/24 Unknown History iron) tablet nutritional supplements 0.06 948 ml feeding tube QHS 0 07/04/24 Unknown History gram-1.2 kcal/mL oral liquid (Osmolite 1.2 Mp) acetaminophen 650 mg/20.3 mL oral 650 mg (20.3 mL) G-t ube Q6H PRN 07/10/24 Unknown Rx solution PRN Pain 1-10 Or Fever #0 mL cinacalcet 30 mg tablet 60 mg PO DAILY 07/13/24 Unkn own History cholecalciferol (vitamin D3) 50 100 mcg (2 x 50 mcg (2 ,000 unit)) 01/04/25 Unknown Rx mcg (2,000 unit) capsule PO DAILY #60 caps scopolamine base 1 mg over 3 days 1 patch transdermal Q3D #10 ea 04/26/25 08/02/25 Rx transdermal patch lansoprazole 30 mg capsule,delayed 30 mg PO BID #60 ca ps 05/05/25 08/02/25 Rx release oxybutynin chloride 15 mg 15 mg PO DAILY Overactive bl adder 06/12/25 08/01/25 Rx tablet,extended release 24 hr #90 tabs MAGIC MOUTH WASH (BMX) 180 mL 5 ml PO Q4H PRN #180 mL 07/27/25 Unknown Rx suspension docusate sodium 100 mg capsule 100 mg PO DAILY 5 Unknown History (Colace) glycopyrrolate 2 mg tablet 2 mg feeding tube BID secre tions 07/27/25 Unknown Hi story ondansetron HCl 4 mg tablet 4 - 8 mg feeding tube Q6H PRN PRN 07/27/25 Unknown History for nausea/vomiting metoclopramide HCl 5 mg tablet 5 mg PO TID #90 tabs Unknown Rx Allergy/AdvReac Type Severity Reaction Status Date / Time No Known Allergies Allergy Verified 08/02/25 10:24 Family History Father CVA (cerebral vascular accident) Sister CVA (cerebral vascular accident) Cancer Surgical History History of esophagogastroduodenoscopy (EGD) History of esophagogastroduodenoscopy (EGD) Hx of esophagogastroduodenoscopy Social History household members: spouse housing: house Smoking Status: Former smoker Tobacco: How many years used: 4 second hand exposure: Yes alcohol intake: never substance use type: does not use what type of physical activity do you participate in: other details: OT - [employer] [facility] [employer] frequency: daily valentina/quaker: Orthodox seatbelt use: always additional social history: Ambulates at baseline without assistive device Audit: Pertinent Findings HISTORY of Pertinent Findings History of Pertinent Findings: EKG Pertinent Findings EKG Perinent findings 07/03/2024. Normal sinus 07/27/25 16:16 rhythm. Echo Pertinent Findings Echo (EF%) pertinent findings 03/09/2023. EF of 65%. RVSP 07/27/25 16:16 is 55 mmHg. No aortic valve stenosis noted. Additional Pertinent Findings Additional pertinent findings Creatinine is 2.1 on May 30 07/27/25 16:19 , 2024. It has been elevated and fluctuating as far back as 2014. Recommendation Anesthesia Recommendation Anesthesia recommendation: OPTIMIZED for anesthesia
--- NOTE | 2025-07-28 14:53 | PAT.ANE_ITS ---
Pre-Assessment Diagnosis/Proposed Procedure Planned Operative Procedure(s): EGD G TUBE REPLACMENT Anesthesia History Anesthesia History - document control associate: Anesthesia History - document control associate Hx Hospitalization No 07/27/25 15:41 Any Problems With Anesthesia No 07/27/25 15:41 Cholinesterase deficiency No 07/27/25 15:41 You/Your Family Experience No 07/27/25 15:41 fever (hyperthermia) with Relationship Recent Exposure to Contagious No 07/15/24 10:50 Disease Does patient have nerve No 07/27/25 15:41 stimulator Patient instructed to have device shut off --Does patient have Pacemaker or ICD? When Was Last Pacemaker Check QUESTION #4 FULL TEXT: You/Your Family Experience fever (hyperthermia) with Anesthesia Last Oral Intake Last Oral intake: Last Oral Intake NPO since Meds taken in AM with sips of water? Meds patient instructed to take am of surgery PONV PONV - document control associate: PONV - document control associate Female Yes 07/27/25 15:41 HX of Motion Sickness No 07/27/25 15:41 HX of N/V After Surgery No 07/27/25 15:41 Non-Smoker Yes 07/27/25 15:41 Duration of Surgery greater Yes 07/27/25 15:41 than 60 minutes Number of Risk Factors 3 07/27/25 15:41 PONV Score Moderate Risk 07/27/25 15:41 Height & Weight Height & Weight: Anesthesia: Height & Weight Height 5 ft 5 in 06/26/25 09:23 Respiratory Assessment Respiratory Assessment - document control associate: Respiratory Tract Infection Hx - document control associate Hx Respiratory Tract Infection No: QUESTIONABLE ASPIRATION 07/27/25 15:41 PNEUMONIA STOP Sleep Apnea STOP Sleep Apnea - document control associate: STOP Sleep Apnea - document control associate Hx Hypertension No 07/27/25 15:41 Hx Sleep Apnea No 07/27/25 15:41 CPAP No 07/27/25 15:41 BIPAP No 07/27/25 15:41 Do you snore loudly (louder No 07/27/25 15:41 than talking or can be heard Do you often feel tired/ Yes 07/27/25 15:41 fatigued/ sleepy during daytime? Has anyone observed you stop No 07/27/25 15:41 breathing during sleep? STOP Results Negative 07/27/25 15:41 QUESTION #5 FULL TEXT : Do you snore loudly (louder than talking or can be heard through closed doors)? 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 Specify any problems Hx of Preganancy in last 3 No 07/27/25 15:41 Months Nurse Filling Out Transfusion DSCHRIBER 07/27/25 15:41 & Questions: Date: 07/27/25 07/27/25 15:41 Time: 15:44 07/27/25 15:41 Patient unable to answer at this time (ie. confused, unrespo /Reproduction History /Reproductive History - document control associate: /Reproductive Hx- document control associate Hx Now Gestational Age (in weeks): EDC: Hx Hx Para Hx Section SAB No 07/27/25 15:41 PFSH Medical History (Updated 07/27/25 @ 15:55 by Shama Cheng) Aspiration pneumonia Cough History of pain when walking History of Clostridium difficile infection Arthritis History of renal disease History of echocardiogram History of Mohs micrographic surgery for skin cancer Acute uremia Anemia History of jejunostomy tube placement Alzheimer disease Iron deficiency anemia Dysphagia History of gastrostomy tube placement Acute renal insufficiency Gastric paresis Anemia, unspecified Stenosis of esophagus Erosive esophagitis UTI (urinary tract infection) Gram-negative bacteremia Severe malnutrition Severe malnutrition Severe dehydration Wears glasses Post-menopausal Bipolar disorder Diabetes insipidus Thyroid disease Bladder disease Back pain Dietary restriction History of hiatal hernia Gastric reflux Former smoker Generalized weakness Unsteady gait Gastroparesis Nondiabetic gastroparesis Dysphagia GI bleed Tardive dyskinesia [place] History of herpes zoster Hypertension Delirium due to multiple etiologies Hypercalcemia Hypernatremia Secondary hyperparathyroidism of renal origin Bipolar disorder with moderate depression Pulmonary emboli Anemia Anxiety Difficulty chewing Bipolar disorder Home Medications Medication Instructions Recorded Last Taken Type methimazole 5 mg tablet 5 mg feeding tube MOTUWETHFR 10/04/20 01/14/23 History Thyroid denosumab 60 mg/mL subcutaneous 60 mg subcut .Q6MO ost eoporosis 09/05/22 08/27/22 History syringe (Prolia) polyethylene glycol 3350 17 17 g PO DAILY PRN constipa tion 09/05/22 09/05/22 History gram/dose oral powder (Miralax) lamotrigine 100 mg tablet 200 mg feeding tube DAILY Bi polar 03/19/23 07/15/24 History Disorder memantine 10 mg tablet 10 mg feeding tube DAILY Tara ck 04/20/23 07/15/24 History with primary doctor lorazepam 2 mg tablet 2 mg PO 4X/DAY 06/11/2305/02 History hyoscyamine sulfate 0.125 mg 0.125 mg PO BID PRN dyspe psia #14 03/29/24 Unknown Rx sublingual tablet tabs estradiol 0.01% (0.1 mg/gram) 1 applic vaginal .3 TIME S WEEKLY 04/06/24 Unknown History vaginal cream ferrous sulfate 325 mg (65 mg 325 mg PO DAILY SUPPLEME NT 04/06/24 Unknown History iron) tablet nutritional supplements 0.06 948 ml feeding tube QHS 0 07/04/24 Unknown History gram-1.2 kcal/mL oral liquid (Osmolite 1.2 Mp) acetaminophen 650 mg/20.3 mL oral 650 mg (20.3 mL) G-t ube Q6H PRN 07/10/24 Unknown Rx solution PRN Pain 1-10 Or Fever #0 mL cinacalcet 30 mg tablet 60 mg PO DAILY 07/13/24 Unkn own History cholecalciferol (vitamin D3) 50 100 mcg (2 x 50 mcg (2 ,000 unit)) 01/04/25 Unknown Rx mcg (2,000 unit) capsule PO DAILY #60 caps scopolamine base 1 mg over 3 days 1 patch transdermal Q3D #10 ea 04/26/25 Unknown Rx transdermal patch lansoprazole 30 mg capsule,delayed 30 mg PO BID #60 ca ps 05/05/25 Unknown Rx release oxybutynin chloride 15 mg 15 mg PO DAILY Overactive bl adder 06/12/25 Unknown Rx tablet,extended release 24 hr #90 tabs MAGIC MOUTH WASH (BMX) 180 mL 5 ml PO Q4H PRN #180 mL 07/27/25 Unknown Rx suspension docusate sodium 100 mg capsule 100 mg PO DAILY 5 Unknown History (Colace) glycopyrrolate 2 mg tablet 2 mg feeding tube BID secre tions 07/27/25 Unknown History ondansetron HCl 4 mg tablet 4 - 8 mg feeding tube Q6H PRN PRN 07/27/25 Unknown History for nausea/vomiting Allergy/AdvReac Type Severity Reaction Status Date / Time No Known Allergies Allergy Verified 07/27/25 15:33 Family History Father CVA (cerebral vascular accident) Sister CVA (cerebral vascular accident) Cancer Surgical History (Updated 07/27/25 @ 15:55 by Shama Cheng) History of esophagogastroduodenoscopy (EGD) History of esophagogastroduodenoscopy (EGD) Hx of esophagogastroduodenoscopy Social History household members: spouse housing: house Smoking Status: Former smoker Tobacco: How many years used: 4 second hand exposure: Yes alcohol intake: never substance use type: does not use what type of physical activity do you participate in: other details: OT [facility] [place] frequency: daily valentina/restoration: Jehovah'S Witness seatbelt use: always additional social history: Ambulates at baseline without assistive device Audit: Pertinent Findings HISTORY of Pertinent Findings History of Pertinent Findings: EKG Pertinent Findings EKG Perinent findings 07/03/2024. Normal sinus 07/27/25 16:16 rhythm. Echo Pertinent Findings Echo (EF%) pertinent findings 03/09/2023. EF of 65%. RVSP 07/27/25 16:16 is 55 mmHg. No aortic valve stenosis noted. Additional Pertinent Findings Additional pertinent findings Creatinine is 2.1 on May 30 07/27/25 16:19 , 2024. It has been elevated and fluctuating as far back as 2014. Pertinent Findings Pulmonary function results/spirometer pertinent findings: 07/27/2025. Chest x- ray. No acute findings. Recommendation Anesthesia Recommendation Anesthesia recommendation: OPTIMIZED for anesthesia
[2025-08-02] VITALS (10 sets, daily range): BP systolic 109–161; BP diastolic 72–87; PULSE 74–78; RESP 14–20; TEMP 36.4–36.8; O2SAT 94–99; BMI 19.4
[2025-08-02] MEDS: Lactated Ringers 1,000 ML 15 ML IV (10:29)
--- NOTE | 2025-08-02 10:54 | PRE.ANES_ITS ---
ASA Classification* ASA Classification ASA Classification: 3 Assessment & Plan Anesthesia* Anesthesia Assessment Anesthesia Assessment: Discussed sedation and/or anesthesia options, risks, benefits, and alternatives with patient/parents/legal guardian/POA. Questions invited. The patient/parents/legal guardian/POA seems to understand and agrees to proceed with anesthesia plan. Reviewed the physical assessment, medical history, allergy history and patient home medications list prior to surgery/procedure/anesthetic and documented any changes. Performed airway and anesthesia risk assessments. Anesthesia Type Anesthesia Type: General and MAC History Source History Obtained from:: Patient, Chart and Significant Other (Spouse and daughter at bedside) Anesthesia Focused Assessment* Temperature: 98.3 F Pulse Rate: 78 Blood Pressure: 109/80 Respiratory Rate: 18 Pulse Ox: 99 Oxygen Delivery Method: Room Air Airway Assessment Mouth opens: >3 cm Mallampati Score: II Teeth Condition: Chipped/Broken and Missing Neck Range of motion (ROM): Limited ROM Labs Anesthesia Preop lab: CBC WBC, (4.4-11.0) 10.9 K/mm3 05/30/25, 13:37 RBC, (4.2-5.4) 3.33 M/mm3 L 05/30/25, 13:37 Hgb, (12.0-15.0) 10.4 g/dL L 05/30/25, 13:37 Hct, (37-47) 33.0 % L 05/30/25, 13:37 Plt Count, (150-450) 320 K/mm3 05/30/25, 13:37 CHEMISTRY Potassium, (3.3-5.1) 4.7 mmol/L 05/30/25, 13:37 Sodium, (133-145) 143 mmol/L 05/30/25, 13:37 Magnesium, (1.6-2.6) 2.6 mg/dL 07/04/24, 02:00 Phosphorus, (2.7-4.5) 4.8 mg/dL H 02/08/25, 13:57 BUN, (4-19) 59 mg/dL H 05/30/25, 13:37 Creatinine, (0.70-1.20) 2.10 mg/dL H 05/30/25, 13:37 Glucose, (70-99) 111 mg/dL H 05/30/25, 13:37 POC Glucose, (74-106) 79 mg/dL 07/08/24, 05:54 TSH, (0.300-4.200) 0.857 uIU/mL 05/30/25, 13:37 COAG PT, (11.7-14.9) 12.8 SECONDS 07/03/24, 20:44 Pre-Assessment Diagnosis/Proposed Procedure Planned Operative Procedure(s): EGD G TUBE REPLACMENT Anesthesia History 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 When Was Last Pacemaker Check QUESTION #4 FULL TEXT: You/Your Family Experience fever (hyperthermia) with Anesthesia Last Oral Intake Last Oral intake: Last Oral Intake NPO since 06:30 08/02/25 10:25 Meds taken in AM with sips of Yes 08/02/25 10:25 water? Meds patient instructed to lansoprazole, lorazepam 08/02/25 10:25 take am of surgery PONV PONV - classroom technology technician: PONV - classroom technology technician Female Yes 07/27/25 15:41 HX of Motion Sickness No 07/27/25 15:41 HX of N/V After Surgery No 07/27/25 15:41 Non-Smoker Yes 07/27/25 15:41 Duration of Surgery greater Yes 07/27/25 15:41 than 60 minutes Number of Risk Factors 3 07/27/25 15:41 PONV Score Moderate Risk 07/27/25 15:41 Height & Weight Height & Weight: Anesthesia: Height & Weight Height 5 ft 5 in 08/02/25 10:25 Weight: 53 kg 08/02/25 10:25 Body Mass Index (BMI) 19.4 08/02/25 10:25 Respiratory Assessment Respiratory Assessment - classroom technology technician: Respiratory Tract Infection Hx - classroom technology technician Hx Respiratory Tract Infection No: QUESTIONABLE ASPIRATION 07/27/25 15:41 PNEUMONIA STOP Sleep Apnea STOP Sleep Apnea - classroom technology technician: STOP Sleep Apnea - classroom technology technician Hx Hypertension No 07/27/25 15:41 Hx Sleep Apnea No 07/27/25 15:41 CPAP No 07/27/25 15:41 BIPAP No 07/27/25 15:41 Do you snore loudly (louder No 07/27/25 15:41 than talking or can be heard Do you often feel tired/ Yes 07/27/25 15:41 fatigued/ sleepy during daytime? Has anyone observed you stop No 07/27/25 15:41 breathing during sleep? STOP Results Negative 07/27/25 15:41 QUESTION #5 FULL TEXT : Do you snore loudly (louder than talking or can be heard through closed doors)? 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 Specify any problems Hx of Preganancy in last 3 No 07/27/25 15:41 Months Nurse Filling Out Transfusion DSCHRIBER 07/27/25 15:41 & Questions: Date: 07/27/25 07/27/25 15:41 Time: 15:44 07/27/25 15:41 Patient unable to answer at this time (ie. confused, unrespo /Reproduction History /Reproductive History - classroom technology technician: /Reproductive Hx- classroom technology technician Hx Now Gestational Age (in weeks): EDC: Hx Hx Para Hx Section SAB No 07/27/25 15:41 Active Medications Active Medications: Current Medications Generic Name Dose Route Start Last Admin Trade Name Freq PRN Reason Stop Dose Admin Lactated Ringer's 1,000 mls @ 15 mls/hr 08/02/25 10:30 08/02/25 10:29 IV 15 mls/hr .Q48H BINA Administration PFSH Medical History Aspiration pneumonia Cough History of pain when walking History of Clostridium difficile infection Arthritis History of renal disease History of echocardiogram History of Mohs micrographic surgery for skin cancer Acute uremia Anemia History of jejunostomy tube placement Alzheimer disease Iron deficiency anemia Dysphagia History of gastrostomy tube placement Acute renal insufficiency Gastric paresis Anemia, unspecified Stenosis of esophagus Erosive esophagitis UTI (urinary tract infection) Gram-negative bacteremia Severe malnutrition Severe malnutrition Severe dehydration Wears glasses Post-menopausal Bipolar disorder Diabetes insipidus Thyroid disease Bladder disease Back pain Dietary restriction History of hiatal hernia Gastric reflux Former smoker Generalized weakness Unsteady gait Gastroparesis Nondiabetic gastroparesis Dysphagia GI bleed Tardive dyskinesia [place] History of herpes zoster Hypertension Delirium due to multiple etiologies Hypercalcemia Hypernatremia Secondary hyperparathyroidism of renal origin Bipolar disorder with moderate depression Pulmonary emboli Anemia Anxiety Difficulty chewing Bipolar disorder Home Medications Medication Instructions Recorded Last Taken Type methimazole 5 mg tablet 5 mg feeding tube MOTUWETHFR 10/04/20 01/14/23 History Thyroid denosumab 60 mg/mL subcutaneous 60 mg subcut .Q6MO ost eoporosis 09/05/22 08/27/22 History syringe (Prolia) polyethylene glycol 3350 17 17 g PO DAILY PRN constipa tion 09/05/22 09/05/22 History gram/dose oral powder (Miralax) lamotrigine 100 mg tablet 200 mg feeding tube DAILY Bi polar 03/19/23 07/15/24 History Disorder memantine 10 mg tablet 10 mg feeding tube DAILY Tara ck 04/20/23 07/15/24 History with primary doctor lorazepam 2 mg tablet 2 mg PO 4X/DAY 06/11/2307/11 History hyoscyamine sulfate 0.125 mg 0.125 mg PO BID PRN dyspe psia #14 03/29/24 Unknown Rx sublingual tablet tabs estradiol 0.01% (0.1 mg/gram) 1 applic vaginal .3 TIME S WEEKLY 04/06/24 Unknown History vaginal cream ferrous sulfate 325 mg (65 mg 325 mg PO DAILY SUPPLEME NT 04/06/24 Unknown History iron) tablet nutritional supplements 0.06 948 ml feeding tube QHS 0 07/04/24 Unknown History gram-1.2 kcal/mL oral liquid (Osmolite 1.2 Mp) acetaminophen 650 mg/20.3 mL oral 650 mg (20.3 mL) G-t ube Q6H PRN 07/10/24 Unknown Rx solution PRN Pain 1-10 Or Fever #0 mL cinacalcet 30 mg tablet 60 mg PO DAILY 07/13/24 Unkn own History cholecalciferol (vitamin D3) 50 100 mcg (2 x 50 mcg (2 ,000 unit)) 01/04/25 Unknown Rx mcg (2,000 unit) capsule PO DAILY #60 caps scopolamine base 1 mg over 3 days 1 patch transdermal Q3D #10 ea 04/26/25 08/02/25 Rx transdermal patch lansoprazole 30 mg capsule,delayed 30 mg PO BID #60 ca ps 05/05/25 08/02/25 Rx release oxybutynin chloride 15 mg 15 mg PO DAILY Overactive bl adder 06/12/25 08/01/25 Rx tablet,extended release 24 hr #90 tabs MAGIC MOUTH WASH (BMX) 180 mL 5 ml PO Q4H PRN #180 mL 07/27/25 Unknown Rx suspension docusate sodium 100 mg capsule 100 mg PO DAILY 5 Unknown History (Colace) glycopyrrolate 2 mg tablet 2 mg feeding tube BID secre tions 07/27/25 Unknown History ondansetron HCl 4 mg tablet 4 - 8 mg feeding tube Q6H PRN PRN 07/27/25 Unknown History for nausea/vomiting Allergy/AdvReac Type Severity Reaction Status Date / Time No Known Allergies Allergy Verified 08/02/25 10:24 Family History Father CVA (cerebral vascular accident) Sister CVA (cerebral vascular accident) Cancer Surgical History History of esophagogastroduodenoscopy (EGD) History of esophagogastroduodenoscopy (EGD) Hx of esophagogastroduodenoscopy Social History household members: spouse housing: house Smoking Status: Former smoker Tobacco: How many years used: 4 second hand exposure: Yes alcohol intake: never substance use type: does not use what type of physical activity do you participate in: other details: OT PT - [facility] [place] frequency: daily valentina/presybeterian: Scientology seatbelt use: always additional social history: Ambulates at baseline without assistive device Review of Systems (Anesthesia) ROS Narrative System reviewed and no additional complaints, except as documented.
--- NOTE | 2025-08-02 11:30 | EGD_PTH ---
PATIENT: SIMONA HERNANDEZ LOC: EN U#:[id number] AGE/SX: 75/F ROOM: RE08/02/[address]: Dr. Francis Verma DO : 1950 BED: DIS: 08/02/2025 SPEC #: [id number] RECD: 08/02/25 13:58 STATUS: NATALYA REQ #: [id number] HOLLIE: 08/02/25 11:[address]: Francis Verma DEPT: SURGICAL PATHOLOGY RECD BY: Dariusz Bailey ENTERED: 08/02/25 14:18 SP TYPE: EGD BIOPSY CAESAR DR: Jay Kincaid, CHEMOTHERAPIST-C Tissues: A - Gastric mucous membrane Procedures: Immunohistochemical Stains Surgery Specimen Level IV HEADER OPERATION: EGD, G-Tube replacement, evaluate esophageal stent PRE-OP DIAGNOSIS: Esophageal stricture TISSUE SUBMITTED: A- Gastric cardia biopsy MICROSCOPIC DIAGNOSIS A. Gastric cardia, biopsy: * Inflamed cardia mucosa with reactive changes. * IHC negative for H. pylori organisms. MICROSCOPIC DESCRIPTION Slides are reviewed. All matched controls reacted appropriately. These tests were developed and their performance characteristics determined by [facility]. They may not have been cleared or approved by the [place].S. Food and Drug Administration. The FDA has determined that such clearance or approval is not necessary. The above immunohistochemical markers and/or special stains have been reviewed by the Pathologist. GROSS DESCRIPTION A. Received in fixative is one container labeled with the patient's name and designated "Gastric cardia biopsy." The specimen consists of three irregular fragments of regalado tissue that measure 0.4 to 0.6 cm. The specimen is totally submitted in one cassette. OK 08/02/2025 CPT:97167,02891
--- NOTE | 2025-08-02 11:30 | FLU_PTH ---
PATIENT: SIMONA HERNANDEZ LOC: EN U#:[id number] AGE/SX: 75/F ROOM: RE08/02/[address]: Dr. Francis Verma DO : 1950 BED: DIS: 08/02/2025 SPEC #: [id number] RECD: 08/02/25 13:58 STATUS: NATALYA REFauzia #: [id number] HOLLIE: 08/02/25 11:[address]: Francis Verma DEPT: CYTOLOGY RECD BY: Dariusz Bailey ENTERED: 08/02/25 14:25 SP TYPE: Fluid OTHR DR: Jay Kincaid, BAKER PIE-C Tissues: Esophagus, NOS Procedures: Special Stain Group II Surgery Specimen Level IV Cytospin Fluid HEADER OPERATION: EGD, G-Tube replacement, evaluate esophageal stent PRE-OP DIAGNOSIS: Esophageal stent TISSUE SUBMITTED: A- Esophageal stent for cytology DIAGNOSIS CYTOLOGY A. Stent, esophagus (cytospin, cellblock): * No malignant cells identified. * Squamous epithelium with marked acute inflammation. CYTOLOGY STUDY Slides are reviewed. CYTOLOGY GROSS A. Received is 13cm mckay to metalic-black hardware (stent) with <0.2 couch-cloudy mucoid fluid labeled with the patient's name and and designated per the requisition as "Esophageal stent." Submitted for cytology and cell block preparation. Mr 08/02/2025 CPT: [id number]
--- NOTE | 2025-08-02 11:41 | HP.PCM_ITS ---
HPI - General General Date of Admission: 08/02/25 Date of Service: 08/02/25 Chief Complaint: stent exchange and dysphagia HPI Narrative SIMONA HERNANDEZ, is a 75 F who presents for stent exchange. *[facility] hospitalization 09.05.22-09.11.22 where she was treated for aspiration pneumonia and CITLALY in addition to chronic conditions. During hospitalization she was noted to be anemia and GI consulted with EGD performed. EGD 09.08.22 LA Grade D erosive esophagitis, bipolar cautery; esophageal plaques, candidiasis; small hiatal hernia Diflucan, PPI start. Recommend GET. Gastric emptying study 09.09.22 timed at 73 minutes (12-56). [facility] ED 10.06.22 with dysphagia. Biochemical workup and imaging concerning for ongoing aspiration pneumonia and discharged with liquid antibiotics. Outpatient workup Modified Barium swallow 09.30.[address] services. Notes esophageal retention of pudding and barium tablet. OV 10.28.22 for gastroparesis recommending start of azithromycin. EGD 11.06.22 LA Grade C erosive esophagitis, APC; benign esophageal stenosis, TTS dilation; medium hiatal hernia. [facility] hospitalization 12.15.22-12.24.22 where she was treated for CITLALY with electrolyte imbalances and chronic conditions. GI consulted for management of dysphagia. EGD 12.15.22 LA Grade D erosive esophagitis, APC; benign esophageal stenosis, TTS dilation; medium hiatal hernia. EGD 12.22.22 benign esophageal stenosis, TTS dilator; medium hiatal hernia. PPI BID and sucralfate. Barium swallow 12.22.22 evidence of apple core lesion of mid and distal esophagus; dilation of proximal esophagus; small hiatal hernia. [facility] hospitalization 3-01.19.23 where she was treated for CITLALY, malnutrition, dysphagia, bacteremia/UTI and chronic conditions. GI consulted for management of dysphagia. EGD 01.15.23 benign esophageal stenosis, TTS dilator; medium hiatal hernia. OV 01.21.23 recommending start of sucralfate and guaifenesin liquid. [facility] hospitalization 01.30.23-02.01.23 where she was treated for esophageal stricture, CITLALY and chronic conditions. GI consulted for management of dysphagia. EGD 01.31.23 benign esophageal stenosis, TTS dilator, injected wi th Botox and treated with APC; medium hiatal hernia. Sucralfate and protonix. Pulmonology, Psychiatry, ENT seen previously who do not feel her mucus/dysphagia are related to their field. Looking for neurologist to see soon. OV 02.06.23 feels she is doing well at this time. Denies dysphagia at this time. Reports phlegm in the mouth, but not in her esophagus. Neurology OV 4.01.29 for management of weakness, polyneuropathy, secondary parkinsonism, gastroparesis, mild cognitive impairment. Hospitalization 03.04.23-03.06.23, 03.07.23-5 with admission to TCU, discharged 04.08.23 where she was treated for CITLALY with CKD III, hypercalcemia, bipolar disorder, chronic esophageal stricture. She was noted to have severe gastroparesis and EGD repeated to change termination of enteral feed. EGD 03.05.23 severe intrinsic esophageal stenosis, TTS dilator; small hiatal hernia; PEG placed, externally removable 20F Bard. EGD 04.01.23 severe esophageal stenosis, TTS dilator; PEG removed and PEJ placed, EndoVive TTP PEG-J 12F placed with distal tip clipped to bowel wall. Contact 04.08.23 requesting medication to help dry secretions. Hyoscyamine. GI outpatient: EGD 04.16.23 intrinsic esophageal stenosis, TTS dilator with moderate improvement; WallFlex [id number] covered stent placed at 30cm from incisors. Pt reports doing overall well. Swallowing has been better. Has not needed to take Hyoscyamine as phlegm is under control. Appetite is okay. Is still on a soft food diet with no concerns. Some trouble with constipation but is using Lactulose and OTC stool softeners that are helpful. EGD 07.04.24 Pre-existing esophageal stent, removed. Esophageal stenosis. Dilated. Biopsied. Intact gastrostomy with a patent G-tube present. Large hiatal hernia. No gross lesions in the duodenal bulb. EGD 07.08.24 Severe erosive esophagitis with severe esophageal stricture and benign-appearing esophageal stenosis. Dilated. Medium-sized hiatal hernia. Intact gastrostomy with a patent G-tube present characterized by healthy appearing mucosa. No gross lesions in the second portion of the duodenum. No specimens collected. EGD 07.15.24 LA Grade D erosive esophagitis with bleeding. Treated with a heater probe. Benign-appearing esophageal stenosis. Dilated. Prosthesis placed. Large hiatal hernia. Intact gastrostomy with a patent G-tube present. Normal second portion of the duodenum. No specimens collected. OV 9.. Pt reports continued symptoms of phlegm and fatigue. Pt states that she is working with a speech therapist to help with her swallowing. Has an upcoming appt with ENT. OV 1 pt reports continued symptoms from previous visit. would like a referral to nutrition services. OV 5.06.02 OV 8.18. pt reports continued symptoms from previous visit. Reports difficulty chewing which leads to difficulty swallowing; reports increased phlegm makes this harder as well. [facility] Medical History Aspiration pneumonia Cough History of pain when walking History of Clostridium difficile infection Arthritis History of renal disease History of echocardiogram History of Mohs micrographic surgery for skin cancer Acute uremia Anemia History of jejunostomy tube placement Alzheimer disease Iron deficiency anemia Dysphagia History of gastrostomy tube placement Acute renal insufficiency Gastric paresis Anemia, unspecified Stenosis of esophagus Erosive esophagitis UTI (urinary tract infection) Gram-negative bacteremia Severe malnutrition Severe malnutrition Severe dehydration Wears glasses Post-menopausal Bipolar disorder Diabetes insipidus Thyroid disease Bladder disease Back pain Dietary restriction History of hiatal hernia Gastric reflux Former smoker Generalized weakness Unsteady gait Gastroparesis Nondiabetic gastroparesis Dysphagia GI bleed Tardive dyskinesia [place] History of herpes zoster Hypertension Delirium due to multiple etiologies Hypercalcemia Hypernatremia Secondary hyperparathyroidism of renal origin Bipolar disorder with moderate depression Pulmonary emboli Anemia Anxiety Difficulty chewing Bipolar disorder Home Medications Medication Instructions Recorded Last Taken Type methimazole 5 mg tablet 5 mg feeding tube MOTUWETHFR 10/04/20 01/14/23 History Thyroid denosumab 60 mg/mL subcutaneous 60 mg subcut .Q6MO ost eoporosis 09/05/22 08/27/22 History syringe (Prolia) polyethylene glycol 3350 17 17 g PO DAILY PRN constipa tion 09/05/22 09/05/22 History gram/dose oral powder (Miralax) lamotrigine 100 mg tablet 200 mg feeding tube DAILY Bi polar 03/19/23 07/15/24 History Disorder memantine 10 mg tablet 10 mg feeding tube DAILY Tara ck 04/20/23 07/15/24 History with primary doctor lorazepam 2 mg tablet 2 mg PO 4X/DAY 06/11/2307/11 History hyoscyamine sulfate 0.125 mg 0.125 mg PO BID PRN dyspe psia #14 03/29/24 Unknown Rx sublingual tablet tabs estradiol 0.01% (0.1 mg/gram) 1 applic vaginal .3 TIME S WEEKLY 04/06/24 Unknown History vaginal cream ferrous sulfate 325 mg (65 mg 325 mg PO DAILY SUPPLEME NT 04/06/24 Unknown History iron) tablet nutritional supplements 0.06 948 ml feeding tube QHS 0 07/04/24 Unknown History gram-1.2 kcal/mL oral liquid (Osmolite 1.2 Mp) acetaminophen 650 mg/20.3 mL oral 650 mg (20.3 mL) G-t ube Q6H PRN 07/10/24 Unknown Rx solution PRN Pain 1-10 Or Fever #0 mL cinacalcet 30 mg tablet 60 mg PO DAILY 07/13/24 Unkn own History cholecalciferol (vitamin D3) 50 100 mcg (2 x 50 mcg (2 ,000 unit)) 01/04/25 Unknown Rx mcg (2,000 unit) capsule PO DAILY #60 caps scopolamine base 1 mg over 3 days 1 patch transdermal Q3D #10 ea 04/26/25 08/02/25 Rx transdermal patch lansoprazole 30 mg capsule,delayed 30 mg PO BID #60 ca ps 05/05/25 08/02/25 Rx release oxybutynin chloride 15 mg 15 mg PO DAILY Overactive bl adder 06/12/25 08/01/25 Rx tablet,extended release 24 hr #90 tabs MAGIC MOUTH WASH (BMX) 180 mL 5 ml PO Q4H PRN #180 mL 07/27/25 Unknown Rx suspension docusate sodium 100 mg capsule 100 mg PO DAILY 5 Unknown History (Colace) glycopyrrolate 2 mg tablet 2 mg feeding tube BID secre tions 07/27/25 Unknown History ondansetron HCl 4 mg tablet 4 - 8 mg feeding tube Q6H PRN PRN 07/27/25 Unknown History for nausea/vomiting Allergy/AdvReac Type Severity Reaction Status Date / Time No Known Allergies Allergy Verified 08/02/25 10:24 Family History Father CVA (cerebral vascular accident) Sister CVA (cerebral vascular accident) Cancer Surgical History History of esophagogastroduodenoscopy (EGD) History of esophagogastroduodenoscopy (EGD) Hx of esophagogastroduodenoscopy Social History household members: spouse housing: house Smoking Status: Former smoker Tobacco: How many years used: 4 second hand exposure: Yes alcohol intake: never substance use type: does not use what type of physical activity do you participate in: other details: OT PT - [facility] [place] frequency: daily valentina/yarsani: Taoism seatbelt use: always additional social history: Ambulates at baseline without assistive device ROS Constitutional Constitutional: Denies fatigue, fever(s), poor appetite, weight gain or weight loss Gastrointestinal Gastrointestinal: Denies belching, bloating, change in bowel habits, change in stool character, chewing difficulty, coffee ground emesis, constipation, cramping, diarrhea, dyspepsia, dysphagia, early satiety, excessive flatus, fecal incontinence, heartburn, hematemesis, hematochezia, hemorrhoids, loose stools, melena, nausea, odynophagia, rectal bleeding, tenesmus, vomiting or weight changes Vital Signs Vital Signs Vital Signs: 08/02/25 10:25 08/02/25 10:25 08/02/25 10:57 Temperature 98.3 F 98.3 F Temperature Source Temporal Pulse Rate 78 78 Respiratory Rate 18 18 Respiratory Pattern Normal Blood Pressure 109/80 109/80 Blood Pressure Mean 89 Blood Pressure Source Monitor Blood Pressure Position Semi-Fowlers Blood Pressure Location Left Arm Pulse Ox 99 99 Oxygen Delivery Method Room Air Room Air Weight Weight: 116 lb 13.52 oz Body Mass Index (BMI) 19.4 Physical Exam Const alert, oriented x3, no apparent distress and healthy appearing General Appearance: cooperative GI normal to inspection, nondistended, normoactive bowel sounds, soft to palpation, non-tender and non-distended Percussion: normal to percussion Rectal Exam: deferred Assessment & Plan Assessment/Plan (1) Acute renal failure: (2) Anemia requiring transfusions: (3) Leukocytosis: (4) Esophageal obstruction: (5) Bladder outlet obstruction: (6) Fecal impaction: (7) Constipation: (8) Aspiration pneumonia: (9) Acute hypotension: (10) Hypercalcemia: PLAN: Plan 74-year-old with multiple comorbidities and long history of benign esophageal stricture status post esophageal stent, severe gastroparesis secondary to medicines for depression status post PEG tube acute on chronic anemia secondary to suspected GI bleed -Baseline hemoglobin has been running between 10 and 12 -8.6 on presentation but patient hypotensive and appeared to be dehydrated so fluids given and repeat was obtained and found to be 6.6 -We repeat her egd with stent replacement today.
[2025-08-02] MEDS: Lidocaine 1% (5 ml sdv) 5 ML Vial IV (12:07)
--- NOTE | 2025-08-02 12:15 | RAD_ITS ---
PROCEDURE: ABDOMEN SINGLE VIEW 08/02/2025 REASON FOR EXAM: ESOPHAGEAL STENT TECHNIQUE: Procedure Code: RADABD Modality: DX Procedure: ABDOMEN SINGLE VIEW COMPARISON: None FINDINGS: Fluoro was provided. 59 seconds, 8.91 mGy, 7 pictures RAD/Abdomen Single View IMPRESSION: Fluoro was provided. Reading Location: [facility]
[2025-08-02] MEDS: Lactated Ringers 2,000 ML 2000 ML IV (13:15)
[2025-08-02] MEDS: fentaNYL 100 MCG/2 ML Ampul IV (13:45)
--- NOTE | 2025-08-02 13:54 | PCM.POST.ANE ---
Anesthesia: Postop Eval I Current Vital Signs Temperature: 97.7 F Pulse Rate: 77 Blood Pressure: 159/82 Respiratory Rate: 20 Pulse Ox: 99 Oxygen Delivery Method: Room Air Assessment Airway patent: Yes Spontaneous unlabored respirations: Yes Mental status: Awake and Calm nausea: No Vomiting: No Anesthesia Complication: No Fluid Hydration Crystalloid volume administer (ml): 1,200 Total IV fluid infused: 1,200 Progress Note Anesthesia document: Postop Eval 1 completed: Yes
--- NOTE | 2025-08-02 13:56 | OP.EGD_ITS ---
Patient Name: Fior Escamilla Procedure Date: 08/02/2025 10:54 AM Date of : 1950 Age: 75 Procedure: Upper GI endoscopy Indications: Dysphagia Providers: Francis Verma DO Medicines: General Anesthesia Patient Profile: This is a 75 year old female. Refer to note in patient chart for documentation of history and physical. Patient has symptoms of dysphagia with both liquids and solids. Her most recent EGD for stent placement. Complications: No immediate complications. Procedure: Pre-Anesthesia Assessment: - Prior to the procedure, a History and Physical was performed, and patient medications and allergies were reviewed. The patient is competent. The risks and benefits of the procedure and the sedation options and risks were discussed with the patient. All questions were answered and informed consent was obtained. Patient identification and proposed procedure were verified by the physician in the pre-procedure area. Mental Status Examination: alert and oriented. Airway Examination: normal oropharyngeal airway and neck mobility. Respiratory Examination: clear to auscultation. CV Examination: normal. Prophylactic Antibiotics: The patient does not require prophylactic antibiotics. Prior Anticoagulants: The patient has taken no anticoagulant or antiplatelet agents except for NSAID medication. ASA Grade Assessment: II - A patient with mild systemic disease. After reviewing the risks and benefits, the patient was deemed in satisfactory condition to undergo the procedure. The anesthesia plan was to use general anesthesia. Immediately prior to administration of medications, the patient was re-assessed for adequacy to receive sedatives. The heart rate, respiratory rate, oxygen saturations, blood pressure, adequacy of pulmonary ventilation, and response to care were monitored throughout the procedure. The physical status of the patient was re-assessed after the procedure. After obtaining informed consent, the endoscope was passed under direct vision. Throughout the procedure, the patient's blood pressure, pulse, and oxygen saturations were monitored continuously. The gastroscope was introduced through the mouth, and advanced to the second part of duodenum. The upper GI endoscopy was accomplished without difficulty. The patient tolerated the procedure well. Scope In: 12:17:40 PM Scope Out: 1:34:40 PM Total Procedure Duration Time 1 hour 17 minutes 0 seconds Findings: An esophageal stent was found in the entire esophagus. Stent removal was accomplished with a snare. Localized mucosal changes were found at the gastroesophageal junction, in the cardia and in the gastric fundus. Biopsies were taken with a cold forceps for histology. Verification of patient identification for the specimen was done. Estimated blood loss was minimal. There was evidence of an eroding gastrostomy tube present in the gastric body. The PEG required removal because it was kinked and was leaking. The PEG was removed under endoscopic vision. Removal was easily accomplished. An endoscopically removable 20 Fr EndoVive low-profile gastrostomy tube was lubricated. The guide wire was passed through the existing G-tube port and snared endoscopically. The endoscope and snare were then removed, pulling the wire out through the mouth. The g-tube was tied to the guidewire, pulled through the mouth into the stomach and then pulled out from the stomach through the skin. The bumper was attached to the gastrostomy tube. The feeding tube was then cut to an appropriate length. The final position of the gastrostomy tube was confirmed by relook endoscopy, and skin marking noted to be 4 cm at the external bumper. The final tension and compression of the abdominal wall by the PEG tube and external bumper were checked and revealed that the bumper was loose and lightly touching the skin. The tube was capped, and the tube site was cleaned and dressed. One benign-appearing, intrinsic moderate (circumferential scarring or stenosis; an endoscope may pass) stenosis was found 31 to 36 cm from the incisors. This stenosis measured 6 cm (in length). The stenosis was traversed. This was stented with an 18 mm x 12.3 cm WallFlex covered stent under fluoroscopic guidance, proximal margin at 30 cm and distal margin at 30 cm from the incisors. No gross lesions were noted in the entire examined duodenum. Impression: - Pre-existing esophageal stent, removed. - Mucosal changes in the gastroesophageal junction, cardia and gastric fundus. Biopsied. - Eroding gastrostomy tube present. - Benign-appearing esophageal stenosis. Prosthesis placed. - No gross lesions in the entire examined duodenum. - The PEG was removed because it was kinked and was leaking, and replaced with an endoscopically removable PEG. Recommendation: - Discharge patient to home. - Resume previous diet. - Continue present medications. - Await pathology results. Procedure Code(s): --- Professional --- 77781, Esophagogastroduodenoscopy, flexible, transoral; with placement of endoscopic stent (includes pre- and post-dilation and guide wire passage, when performed) 93249, Esophagogastroduodenoscopy, flexible, transoral; with directed placement of percutaneous gastrostomy tube 20798, 59, Esophagogastroduodenoscopy, flexible, transoral; with removal of foreign body(s) 60478, 59,51, Esophagogastroduodenoscopy, flexible, transoral; with biopsy, single or multiple 53936, 26, Intraluminal dilation of strictures and/or obstructions (eg, esophagus), radiological supervision and interpretation CPT copyright 2021 [employer]. All rights reserved. The codes documented in this report are preliminary and upon log washer review may be revised to meet current compliance requirements. Francis Verma DO 08/02/2025 1:56:27 PM This report has been signed electronically. Number of Addenda: 0 Note Initiated On: 08/02/2025 10:54 AM
--- NOTE | 2025-08-02 13:57 | OP.PROVAT_ITS ---
08/02/2025 Jay Kincaid Re : Upper GI endoscopy procedure for Fior Escamilla Dear Codi This procedure was performed on Saturday, August 02, 2025. My impressions and recommendations are as follows: Impressions : - Pre-existing esophageal stent, removed. - Mucosal changes in the gastroesophageal junction, cardia and gastric fundus. Biopsied. - Eroding gastrostomy tube present. - Benign-appearing esophageal stenosis. Prosthesis placed. - No gross lesions in the entire examined duodenum. - The PEG was removed because it was kinked and was leaking, and replaced with an endoscopically removable PEG. Recommendations : - Discharge patient to home. - Resume previous diet. - Continue present medications. - Await pathology results. My findings are described in the full procedure note, which is enclosed. If I can be of further assistance, please feel free to contact me at . Sincerely, Francis Verma, 08/02/2025 1:56:27 PM This report has been signed electronically.
--- NOTE | 2025-08-02 15:47 | POSTOPAN2_ITS ---
Anesthesia Postop Eval I Sum Postop Eval Completion status Anesthesia document: Postop Eval 1 completed: Yes Anesthesia Postop Eval I Summary Anesthesia Postop Eval I Summary: Anesthesia Postop Eval I: Assessment Summary Airway patent Yes 08/02/25 13:55 [email or web address] Spontaneous unlabored Yes 08/02/25 13:55 [email or web address] [email or web address] respirations Mental status Awake,Calm 08/02/25 13:55 [email or web address] nausea No 08/02/25 13:55 [email or web address] [email or web address] Vomiting No 08/02/25 13:55 [email or web address] [email or web address] Anesthesia Postop Eval I: Fluid Summary Crystalloid volume administer 1,200 08/02/25 13:55 [email or web address] (ml) Colloids volume administered ( ml) Blood Product volume administered (ml) Total IV fluid infused 1,200 08/02/25 13:55 [email or web address] [email or web address] Anesthesia Postop Eval I: Summary Notes Anesthesia Complication No 08/02/25 13:55 [email or web address] [email or web address] Anesthesia Complication Comment: Post-operative progress note Anesthesia: Postop Eval II Evaluation Mental status: Awake and Calm Pain Level: 1 nausea: No Vomiting: No Complications Anesthesia Complication: No
--- NOTE | 2025-08-02 15:47 | PCM.POSTANE2 ---
Anesthesia Postop Eval I Sum Postop Eval Completion status Anesthesia document: Postop Eval 1 completed: Yes Anesthesia Postop Eval I Summary Anesthesia Postop Eval I Summary: Anesthesia Postop Eval I: Assessment Summary Airway patent Yes 08/02/25 13:55 [email or web address] Spontaneous unlabored Yes 08/02/25 13:55 [email or web address] [email or web address] respirations Mental status Awake,Calm 08/02/25 13:55 [email or web address] nausea No 08/02/25 13:55 [email or web address] [email or web address] Vomiting No 08/02/25 13:55 [email or web address] Anesthesia Postop Eval I: Fluid Summary Crystalloid volume administer 1,200 08/02/25 13:55 [email or web address] (ml) Colloids volume administered ( ml) Blood Product volume administered (ml) Total IV fluid infused 1,200 08/02/25 13:55 [email or web address] Anesthesia Postop Eval I: Summary Notes Anesthesia Complication No 08/02/25 13:55 [email or web address] Anesthesia Complication Comment: Post-operative progress note Anesthesia: Postop Eval II Evaluation Mental status: Awake and Calm Pain Level: 1 nausea: No Vomiting: No Complications Anesthesia Complication: No
== END 2025-08-02 15:30 | disposition home or self-care (01) ==
LOC: EN 10:11 → AC 10:12
PROVIDERS: PCP Nurse Practitioner Family; Referring Provider Nurse Practitioner Family; Visit Provider Internal Medicine Gastroenterology
PROC: 0DJ08ZZ Inspection of Upper Intestinal Tract, Via Natural or Artificial Opening Endoscopic (ICD-10-PCS; CPT 43235; principal; 2025-08-02 11:25)
DX: E11.43 Type 2 diabetes mellitus with diabetic autonomic (poly)neuropathy (principal); K94.23 Gastrostomy malfunction; G30.9 Alzheimer's disease, unspecified; F02.80 Dementia in other diseases classified elsewhere, unspecified severity, without behavioral disturbance, psychotic disturbance, mood disturbance, and anxiety; K56.41 Fecal impaction; K31.84 Gastroparesis; N17.9 Acute kidney failure, unspecified; D72.829 Elevated white blood cell count, unspecified; K22.2 Esophageal obstruction; N32.0 Bladder-neck obstruction; E83.52 Hypercalcemia; I10 Essential (primary) hypertension; I95.9 Hypotension, unspecified; Z87.891 Personal history of nicotine dependence; K21.9 Gastro-esophageal reflux disease without esophagitis; Z79.899 Other long term (current) drug therapy
CPT/HCPCS: 43762; 43239; 43247; 43266; 00700; 74018; 76000; 88108; 88305; 88313; 88342; C1874; J2405

== ENCOUNTER → 2025-08-09 | Outpatient (CLI) | payer MEDICARE, SELFPAY ==
[2025-08-09 12:17] LABS: Anion Gap 12 (5-15); BUN 63 mg/dL (4-19); BUN/Creat Ratio 24.4 RATIO (10-20); Calcium,Total 10.0 mg/dL (7.6-11.0); Carbon Dioxide 27.5 mmol/L (21.0-32.0); Chloride 105 mmol/L (98-108); Glucose 107 mg/dL (70-99); Potassium 4.8 mmol/L (3.3-5.1)
== END | disposition home or self-care (01) ==
LOC: LAB 11:10
PROVIDERS: PCP Nurse Practitioner Family; Referring Provider Internal Medicine Nephrology; Visit Provider Internal Medicine Nephrology
DX: N18.32 Chronic kidney disease, stage 3b (principal)
CPT/HCPCS: 36415; 80048

== ENCOUNTER 2025-09-08 16:02 | Outpatient (RCR) | payer MEDICARE, SELFPAY | END 2025-09-08 18:00 | disposition home or self-care (01) | LOC: LAB 16:02 | PROVIDERS: Family Provider Nurse Practitioner Family; PCP Nurse Practitioner Family; Referring Provider Internal Medicine Endocrinology, Diabetes & Metabolism; Visit Provider Nurse Practitioner Family | DX: N18.32 Chronic kidney disease, stage 3b ==

== ENCOUNTER → 2025-09-08 | Outpatient (CLI) | payer MEDICARE, SELFPAY ==
--- NOTE | 2025-09-08 16:40 | RAD_ITS ---
PROCEDURE: RAD/Abdomen Single View
[2025-09-08 17:24] LABS: Hematocrit 23.9 % (37-47); Hemoglobin 7.3 g/dL (12.0-15.0); Immature Granulocytes Count 0.150 X10^3/uL (0.0-0.0); Mean Corp Hgb Conc 30.5 g/dL (32-36); Mean Corpuscular Volume 97.6 fL (81-99); Mean Platelet Vol. 9.2 fl (6.2-12.0); NRBC Flagged by Analyzer 0 % (0-5); Platelet Count 514 K/mm3 (150-450); RBC Distribution Width CV 15.0 % (11.6-14.6); RBC Distribution Width SD 53.2 fl (35.1-43.9); Red Blood Count 2.45 M/mm3 (4.2-5.4); White Blood Count 21.3 K/mm3 (4.4-11.0)
[2025-09-08 18:01] LABS: AST(SGOT) 21 U/L (<=31); Alanine Aminotransfer ALT/SGPT 15 U/L (<=34); Albumin, Serum 3.9 g/dL (3.4-4.8); Alkaline Phosphatase 99 U/L (35-104); Anion Gap 17 (5-15); BUN 91 mg/dL (4-19); BUN/Creat Ratio 28.3 RATIO (10-20); Calcium,Total 10.3 mg/dL (7.6-11.0); Carbon Dioxide 22.5 mmol/L (21.0-32.0); Chloride 106 mmol/L (98-108); Ferritin 220 ng/mL (22-378); Globulin 3.8 g/dL (2.2-4.2); Glucose 153 mg/dL (70-99); Iron 62 ug/dL (50-170); LDH 153 U/L (84-246); Potassium 4.7 mmol/L (3.3-5.1)
[2025-09-12 14:09] LABS: Albumin 3.1 g/dL (2.9-4.4); Gamma Globulin 1.1 g/dL (0.4-1.8); Immunoglobulin A 517 mg/dL (64-422); Immunoglobulin G 1219 mg/dL (586-1602); Immunoglobulin M 52 mg/dL (26-217); PROEL- TOTAL PROTEIN 7.2 g/dL (6.0-8.5)
== END | disposition home or self-care (01) ==
LOC: RAD 15:58
PROVIDERS: PCP Nurse Practitioner Family; Referring Provider Internal Medicine Gastroenterology; Visit Provider Internal Medicine Gastroenterology
DX: K31.84 Gastroparesis (principal); R10.9 Unspecified abdominal pain; D64.9 Anemia, unspecified
CPT/HCPCS: 36415; 74018; 80053; 82728; 82784; 83540; 83615; 84165; 85025; 86334

== ENCOUNTER 2025-09-09 09:56 | Inpatient (IN) | payer MEDICARE, SELFPAY ==
[2025-09-09] VITALS (64 sets, daily range): BP systolic 35–119; BP diastolic 19–71; PULSE 60–123; RESP 12–111; TEMP 34–38.2; O2SAT 83–100; BMI 21.8; BMI 20.5
--- NOTE | 2025-09-09 09:58 | EX.ED.DYSGE1 ---
HPI History of Present Illness Chief Complaint: Weakness Narrative Narrative: Patient is a 75-year-old female presenting to the emergency department for generalized weakness. She has past medical history of GERD, hypothyroidism, CKD stage III, hyponatremia, cognitive impairment, polyneuropathy, PE, bipolar disorder, anemia, esophageal stricture with stent placement and Karissa tube. Patient was just at her GI doctor yesterday and had her Karissa tube changed. Was noted to have a mild infection around the stoma site and was placed on Augmentin for 14 days. Majority of the history was obtained from who was at bedside. Patient went to bed at 10 PM last night and had no slurred speech. This morning she woke up and noted that her speech was slurred. For the past 2 or 3 weeks she has had abdominal distention, pain, nausea and vomiting. states that both her emesis and stool are both dark-colored. She is not on any oral anticoagulation. States the melanotic stool is baseline for her given she is on iron supplementation. She is generally weak, denies any focal numbness or weakness. Denies any vision changes. Denies chest pain or shortness of breath [facility] Medical History (Updated 09/09/25 @ 15:[address] Anabela Saavedra MD) Aspiration pneumonia Cough History of pain when walking History of Clostridium difficile infection Arthritis History of renal disease History of echocardiogram History of Mohs micrographic surgery for skin cancer Acute uremia Anemia History of jejunostomy tube placement Alzheimer disease Iron deficiency anemia Dysphagia History of gastrostomy tube placement Acute renal insufficiency Gastric paresis Anemia, unspecified Stenosis of esophagus Erosive esophagitis UTI (urinary tract infection) Gram-negative bacteremia Severe malnutrition Severe malnutrition Severe dehydration Wears glasses Post-menopausal Bipolar disorder Diabetes insipidus Thyroid disease Bladder disease Back pain Dietary restriction History of hiatal hernia Gastric reflux Former smoker Generalized weakness Unsteady gait Gastroparesis Nondiabetic gastroparesis Dysphagia GI bleed Tardive [place] History of herpes zoster Hypertension Delirium due to multiple etiologies Hypercalcemia Hypernatremia Secondary hyperparathyroidism of renal origin Bipolar disorder with moderate depression Pulmonary emboli Anemia Anxiety Difficulty chewing Bipolar disorder Home Medications ?Medication ?Instructions ?Recorded ?Last Taken ?Type methimazole 5 mg tablet 5 mg feeding tube MOTUWETHFR 10/04/20 01/14/23 History Thyroid denosumab 60 mg/mL subcutaneous 60 mg subcut .Q6MO osteoporosis 09/05/22 08/27/22 History syringe (Prolia) polyethylene glycol 3350 17 17 g PO DAILY PRN constipation 09/05/22 09/05/22 History gram/dose oral powder (Miralax) lamotrigine 100 mg tablet 200 mg feeding tube DAILY Bipolar 03/19/23 07/15/24 History Disorder memantine 10 mg tablet 10 mg feeding tube DAILY Check 04/20/23 07/15/24 History with primary doctor lorazepam 2 mg tablet 2 mg PO 4X/DAY PRN anxiety 06/11/23 08/02/25 History estradiol 0.01% (0.1 mg/gram) 1 applic vaginal .3 TIMES WEEKLY 04/06/24 Unknown History vaginal cream ferrous sulfate 325 mg (65 mg 325 mg PO DAILY SUPPLEMENT 04/06/24 Unknown History iron) tablet nutritional supplements 0.06 948 ml feeding tube QHS 07/04/24 Unknown History gram-1.2 kcal/mL oral liquid (Osmolite 1.2 Mp) acetaminophen 650 mg/20.3 mL oral 650 mg (20.3 mL) G-tube Q6H PRN 07/10/24 Unknown Rx solution PRN Pain 1-10 Or Fever #0 mL cinacalcet 30 mg tablet 30 mg PO SUMOTUWETHFR 07/13/24 Unknown History cholecalciferol (vitamin D3) 50 100 mcg (2 x 50 mcg (2,000 unit)) 01/04/25 Unknown Rx mcg (2,000 unit) capsule PO DAILY #60 caps scopolamine base 1 mg over 3 days 1 patch transdermal Q3D #10 ea 04/26/25 08/02/25 Rx transdermal patch lansoprazole 30 mg capsule,delayed 30 mg PO BID #60 caps 05/05/25 08/02/25 Rx release oxybutynin chloride 15 mg 15 mg PO DAILY Overactive bladder 06/12/25 08/01/25 Rx tablet,extended release 24 hr #90 tabs docusate sodium 100 mg capsule 100 mg PO DAILY 07/27/25 Unknown History (Colace) glycopyrrolate 2 mg tablet 2 mg feeding tube BID secretions 07/27/25 Unknown History ondansetron HCl 4 mg tablet 4 - 8 mg feeding tube Q6H PRN PRN 07/27/25 Unknown History for nausea/vomiting amoxicillin 875 mg-potassium 1 tab PO Q12H 14 days #28 tabs 09/06/25 Unknown Rx clavulanate 125 mg tablet neomycin-bacitracn Zn-polymyx 3.5 1 applic topical TID #30 grams 09/06/25 Unknown Rx mg-400 unit-5,000 unit/gram top oint Allergy/AdvReac Type Severity Reaction Status Date / Time No Known Allergies Allergy Verified 09/09/25 10:23 Family History Father CVA (cerebral vascular accident) Sister CVA (cerebral vascular accident) Cancer Surgical History History of esophagogastroduodenoscopy (EGD) History of esophagogastroduodenoscopy (EGD) Hx of esophagogastroduodenoscopy Social History household members: spouse housing: house Smoking Status: Former smoker Tobacco: How many years used: 4 second hand exposure: Yes alcohol intake: never substance use type: does not use what type of physical activity do you participate in: other details: OT PT - [facility] [place] frequency: daily valentina/confucianist: Adventism seatbelt use: always additional social history: Ambulates at baseline without assistive device ROS ROS ED ROS Narrative see HPI EXAM Physical Exam Narrative Exam Narrative: Vital signs: Reviewed General: Alert and orientedx3. No acute distress. Chronically unwell appearing. HEENT: Head is normocephalic and atraumatic, sinuses nontender, pupils equal round and reactive. Nares are patent. Oropharynx and throat exams normal. Neck: Supple without lymphadenopathy nontender Cardiovascular: Tachycardic rate and rhythm, no murmurs. No rubs or gallops. Normal S1 and S2 Respiratory: Clear to auscultation bilaterally. No wheezes, rales, rhonchi Abdominal: Soft and distended. Tender to palpation. Guarding. No rebound tenderness. LUQ karissa tube with surrounding erythema and purulent drainage. Normal bowel sounds. Extremities: No tenderness. No bruising. Normal range of motion. Normal sensation. Skin: No rash or redness. The rest of the physical exam is unremarkable Const Vital Signs: 09/09/25 10:01 09/09/25 10:02 09/09/25 10:13 Temperature 97.7 F L Temperature Source Oral Pulse Rate 94 110 H Respiratory Rate 27 H 18 Respiratory Effort Respiratory Pattern Blood Pressure 63/53 L 63/53 L 63/53 L Blood Pressure Mean 59 56 56 Blood Pressure Source Blood Pressure Position Blood Pressure Location Pulse Ox 95 95 Oxygen Delivery Method Room Air Room Air Fraction of Inspired Oxygen (FIO2) 09/09/25 10:25 09/09/25 10:30 09/09/25 10:46 Temperature 93.7 F L Temperature Source Core Pulse Rate 92 93 Respiratory Rate 25 H 25 H Respiratory Effort Respiratory Pattern Normal Blood Pressure 89/69 L 75/53 L Blood Pressure Mean 77 59 Blood Pressure Source Blood Pressure Position Blood Pressure Location Pulse Ox Oxygen Delivery Method Fraction of Inspired Oxygen (FIO2) 09/09/25 11:08 09/09/25 11:15 09/09/25 11:31 Temperature 93.2 F L 96.1 F L Temperature Source Core Core Pulse Rate 60 93 110 H Respiratory Rate 22 H 36 H 12 Respiratory Effort Respiratory Pattern Blood Pressure 70/53 L 76/46 L 63/53 L Blood Pressure Mean 58 57 56 Blood Pressure Source Blood Pressure Position Blood Pressure Location Pulse Ox 92 95 Oxygen Delivery Method Room Air Room Air Fraction of Inspired Oxygen (FIO2) 09/09/25 11:41 09/09/25 11:43 09/09/25 11:53 Temperature 96.5 F L 96.6 F L 96.6 F L Temperature Source Core Core Core Pulse Rate 103 H 85 92 Respiratory Rate 22 H 24 H 28 H Respiratory Effort Respiratory Pattern Blood Pressure 68/43 L 65/48 L 65/48 L Blood Pressure Mean 49 53 54 Blood Pressure Source Blood Pressure Position Blood Pressure Location Pulse Ox 90 Oxygen Delivery Method Room Air Fraction of Inspired Oxygen (FIO2) 09/09/25 12:00 09/09/25 12:15 09/09/25 12:17 Temperature 96.6 F L 96.8 F L 97.3 F L Temperature Source Core Core Core Pulse Rate 96 106 H 93 Respiratory Rate 15 31 H 16 Respiratory Effort Respiratory Pattern Blood Pressure 90/49 L 63/42 L 83/52 L Blood Pressure Mean 60 51 62 Blood Pressure Source Blood Pressure Position Blood Pressure Location Pulse Ox 94 Oxygen Delivery Method Mechanical Ventilator Fraction of Inspired Oxygen (FIO2) 50 09/09/25 12:23 09/09/25 12:26 09/09/25 12:30 Temperature 96.9 F L Temperature Source Core Pulse Rate 91 76 Respiratory Rate 29 H 17 Respiratory Effort Short of Breath Respiratory Pattern Normal Blood Pressure 61/47 L Blood Pressure Mean 53 Blood Pressure Source Blood Pressure Position Blood Pressure Location Pulse Ox 94 Oxygen Delivery Method Fraction of Inspired Oxygen (FIO2) 09/09/25 12:30 09/09/25 12:45 09/09/25 13:15 Temperature 97.0 F L 96.9 F L Temperature Source Core Core Pulse Rate 79 Respiratory Rate 43 H 14 Respiratory Effort Respiratory Pattern Blood Pressure 53/38 L 74/46 L 88/46 L Blood Pressure Mean 45 57 59 Blood Pressure Source Blood Pressure Position Blood Pressure Location Pulse Ox 100 Oxygen Delivery Method Fraction of Inspired Oxygen (FIO2) 09/09/25 13:29 09/09/25 13:30 09/09/25 13:44 Temperature 97.2 F L 97.2 F L 97.5 F L Temperature Source Core Core Core Pulse Rate 103 H 96 100 Respiratory Rate 95 H 14 14 Respiratory Effort Respiratory Pattern Blood Pressure 83/52 L 83/52 L 92/57 L Blood Pressure Mean 62 63 68 Blood Pressure Source Monitor Monitor Blood Pressure Position Semi-Fowlers Supine Blood Pressure Location Left Arm Pulse Ox 96 97 Oxygen Delivery Method Mechanical Ventilator Mechanical Ventilator Fraction of Inspired Oxygen (FIO2) 50 09/09/25 13:45 09/09/25 14:00 09/09/25 14:17 Temperature 97.5 F L 97.7 F L 97.9 F Temperature Source Core Core Core Pulse Rate 113 H 102 H 104 H Respiratory Rate 20 H 18 19 H Respiratory Effort Respiratory Pattern Blood Pressure 92/57 L 93/59 L 83/58 L Blood Pressure Mean 67 71 66 Blood Pressure Source Blood Pressure Position Blood Pressure Location Pulse Ox 95 83 92 Oxygen Delivery Method Room Air Fraction of Inspired Oxygen (FIO2) 09/09/25 14:30 09/09/25 14:42 09/09/25 14:44 Temperature 98.1 F 98.1 F 98.3 F Temperature Source Core Core Pulse Rate 105 H 104 H 105 H Respiratory Rate 26 H 21 H 21 H Respiratory Effort Respiratory Pattern Blood Pressure 86/63 L 86/63 L 68/44 L Blood Pressure Mean 72 70 52 Blood Pressure Source Monitor Blood Pressure Position Semi-Fowlers Blood Pressure Location Left Arm Pulse Ox 91 91 93 Oxygen Delivery Method Mechanical Ventilator Fraction of Inspired Oxygen (FIO2) 50 09/09/25 15:00 Temperature 98.8 F Temperature Source Core Pulse Rate 70 Respiratory Rate 23 H Respiratory Effort Respiratory Pattern Blood Pressure 67/40 L Blood Pressure Mean 49 Blood Pressure Source Blood Pressure Position Blood Pressure Location Pulse Ox 97 Oxygen Delivery Method Mechanical Ventilator Fraction of Inspired Oxygen (FIO2) 50 NIHSS NIHSS Initial: 1a Level of Consciousness: 0 1b LOC Questions (Score 2 if aphasic/stupor): 0 1c LOC Commands (Only score 1st attempt): 0 2 Best Gaze (If aphasic, use reflexive mvmts.): 0 3 Visual: 0 4 Facial Palsy: 0 5 Motor Arm Right (UN = amputation/fusion): 0 5 Motor Arm Left: 0 6 Motor Leg Right: 0 6 Motor Leg Left: 0 7 Limb ataxia (Only + if out of proportion): 0 8 Sensory (Aphasia/stupor=0 or 1, coma=2): 0 9 Best Language: 0 10 Dysarthria (mute, coma=2, intubated=UN): 1 11 Extinction and Inattention (only scored if +): 0 Total Score: 1 MDM MDM MDM Narrative Medical decision making narrative: Patient is a 75-year-old female presenting to the emergency department for generalized weakness, abdominal pain and dysarthria. Patient was seen and examined. Patient is tachycardic at 110 on evaluation. She is hypotensive at 63/53. She is afebrile saturating 95% on room air. Multiple concerns initially with her dysarthria and last known well of 10 PM last night, stroke team was called. She is not on any anticoagulation. She does have a low NIH of 1. CT of the brain and CTA of the head and neck was ordered. Terms of the patient's tachycardia and hypotension I do have concern for possible sepsis:. History of PE and initially tachypneic not on any anticoagulation, CTA of the chest ordered. With patient's abdominal distention, pain, vomiting with melanotic stool also obtain a CT of the abdomen pelvis. She was typed and screened and coagulation studies were sent given the melanotic stool. 40 mg IV Protonix given. Vancomycin and Zosyn given. Blood cultures and lactate obtained. Temperature [place] catheter was placed by nursing staff and she was noted to be hypothermic at 95 to 96 ?F. She was placed on a Jennifer hugger. Labs and imaging reviewed from yesterday's GI visit. Notable for acute on chronic anemia of 7.3 and leukocytosis of 21. Based off these labs and the presentation concern for possible GI bleed causing her hypotension. Coags and type and screen sent. CBC with significant leukocytosis of 27.5 and acute anemia of 5.3 down from 7.3 just done yesterday. CMP with acute renal failure with a BUN of 119 and creatinine of 3.88. Bicarb of 17.7. Mild hyperkalemia 5.9. Urinalysis with no evidence of urinary tract infection. Lactate 10.0. Patient will be given a total of 30 cc/kg sepsis fluid resuscitation. She has no history of heart failure. CT the brain shows no acute intracranial hemorrhage or mass effect. Chronic findings seen. CTA of the head and neck shows no significant arterial vascular abnormality. Radiology did call me with results of the neck CTA that shows significant debris in the region of the esophageal stent. NG will be placed. CTA chest reviewed by myself and no obvious pulmonary embolism seen. Radiology read shows no pulmonary embolus noted. Tree-in-bud opacities generally located dependently in both lungs, most pronounced in the right lower lobe. This suggests inflammatory/infectious process and can typically be seen with chronic aspiration. CT of the abdomen pelvis shows marked distention of colon and the stomach as well as numerous loops of small bowel which are filled with fluid. There is a large amount of rectal stool. This may reflect fecal impaction causing obstruction with proximal bowel dilatation. Surgical and/or GI consultation is recommended. There is a percutaneous gastrostomy tube which is not in the stomach. This likely needs to be replaced and/or repositioned. GI will be consulted. The patient has had distention, nausea and vomiting for 3 weeks, I do not think this is a acute small or large bowel obstruction that warrants surgical consultation at this time. I spoke to Friend, GI, who will likely scope her inpatient. Feels this may be a upper GI bleed causing the elevation in her BUN noted on labs yesterday. States she will also most likely need a manual disimpaction however this be done once patient is more stable per GI. NG was placed after review of the CTs. Shortly after placement patient became hypoxic. She was not protecting her airway. Decision was made to intubate. at bedside was updated on the plan and after a code discussion states she would be a full code and to intubate and do all measures necessary including central line and pressors. Etomidate and rocuronium was used for RSI. Patient was intubated with a 7-1/2 ETT with GlideScope on first attempt. Post intubation sedation with fentanyl was used given low BP. POt intubation cxr shows good placement of ETT. Triple lumen RIJ central line was placed due to need for pressors and additional access given need for antibiotics, blood and pressors. gave verbal consent for this. This was placed with use of US and positive blood return was present in all lumens. Placed without difficulty. X-ray obtained after central line placement shows satisfactory position with no complications including pneumothorax. Patient started on Levophed which was quickly titrated up and then additionally started on vasopressin for second pressor. This was after patient had received 2 L normal saline as well as 2 units PRBC. I updated the patient's and daughter at bedside on the findings and the plan. Patient admitted to the ICU under Dr. Saavedra for further management. Repeat lactate of 6.4. Clinical impression Sepsis Aspiration pneumonia Acute on chronic anemia History & Record Review Discussion w/independent historian: Patient and Family Additional record(s) reviewed:: Prior outpatient record and Prior labs Lab Data Attestation: I reviewed the patient's lab results. Labs: Laboratory Results - last 24 hr 09/09/25 09/09/25 09/09/25 10:46 10:53 11:35 WBC 27.5 H RBC 1.78 L Hgb 5.3 L* Hct 18.0 L MCV 101.1 H MCH 29.8 MCHC 29.4 L RDW Std Deviation 54.6 H RDW Coeff of Lee 15.4 H Plt Count 452 H MPV 9.3 Immature Gran % (Auto) 1.100 H Neut % (Auto) 90.8 H Lymph % (Auto) 1.8 L Mccreary % (Auto) 6.1 Eos % (Auto) 0.0 Baso % (Auto) 0.2 Absolute Neuts (auto) 25.0 H Absolute Lymphs (auto) 0.49 L Nucleated RBC % 0.1 PT 16.3 H INR 1.3 APTT 22.8 L Sodium 140 Potassium 5.9 H Chloride 97 L Carbon Dioxide 17.7 L Anion Gap 25 H BUN 119 H* Creatinine 3.88 H Estim Creat Clear Calc 11.10 L Est GFR (MDRD) Non-Af 11 L BUN/Creatinine Ratio 30.7 H Glucose 95 Lactic Acid 10.0 H* Calcium 9.5 Magnesium 3.8 H Total Bilirubin 0.32 AST 39 H ALT 27 Alkaline Phosphatase 71 Troponin T High Sens 52 H Troponin T Hi Sens 2 Hr Total Protein 5.6 L Albumin 2.9 L Globulin 2.7 Albumin/Globulin Ratio 1.1 Lipase 36 TSH 0.783 Urine Color Yellow Urine Clarity Sl. Cloudy Urine pH 6.0 Ur Specific [place] 1.015 Urine Protein 100 H Urine Glucose (UA) Normal Urine Ketones Negative Urine Occult Blood 10 H Urine Nitrite Negative Urine Bilirubin Negative Urine Urobilinogen 1 H Ur Leukocyte Esterase 500 H Urine RBC 0 SEEN Urine WBC 5-10 SEEN Ur Squamous Epith Cells 0 SEEN Ur Renal Epithelial Cell 0-5 SEEN Urine Bacteria RARE Urine Mucus 0 SEEN Urine Yeast RARE POC Glucose 120 H Blood Type B POSITIVE Antibody Screen NEGATIVE Crossmatch See Detail 09/09/25 09/09/25 09/09/25 11:35 14:06 14:34 WBC RBC Hgb Hct MCV MCH MCHC RDW Std Deviation RDW Coeff of Lee Plt Count MPV Immature Gran % (Auto) Neut % (Auto) Lymph % (Auto) Mccreary % (Auto) Eos % (Auto) Baso % (Auto) Absolute Neuts (auto) Absolute Lymphs (auto) Nucleated RBC % PT INR APTT Sodium Potassium Chloride Carbon Dioxide Anion Gap BUN Creatinine Estim Creat Clear Calc Est GFR (MDRD) Non-Af BUN/Creatinine Ratio Glucose Lactic Acid 6.4 H* Calcium Magnesium Total Bilirubin AST ALT Alkaline Phosphatase Troponin T High Sens Troponin T Hi Sens 2 Hr 52 H Total Protein Albumin Globulin Albumin/Globulin Ratio Lipase TSH Urine Color Urine Clarity Urine pH Ur Specific [place] Urine Protein Urine Glucose (UA) Urine Ketones Urine Occult Blood Urine Nitrite Urine Bilirubin Urine Urobilinogen Ur Leukocyte Esterase Urine RBC Urine WBC Ur Squamous Epith Cells Ur Renal Epithelial Cell Urine Bacteria Urine Mucus Urine Yeast POC Glucose Blood Type Antibody Screen Crossmatch See Detail ABG Data ABG results: ABG 09/09/25 09/09/25 12:54 13:58 Specimen Type ART ART Sample Site R Radial R Radial pH 7.16 L* 7.15 L* Bicarbonate Actual 15.1 L 15.3 L Total CO2 16 17 Base Excess -14 L -14 L O2 Saturation 94 90 L O2 % 50.0 50.0 ABG pCO2 42.5 44.4 ABG pO2 91 74 L Gaudencio Test Positive Positive Respiration Rate 14 14 O2 Delivery Device Adult Vent Adult Vent Vent Mode AC AC Tidal Volume 450.0 450.0 POC PEEP 5 5 Crit Call To/Read Back Yes Yes Blood Gas Notified Olimpia wheeler Blood Gas Notified Time 12:56:25 13:59:42 Radiography Diagnostic Testing: Clinical Impression(s) from Imaging Studies Brain CT 09/09/25 10:10 IMPRESSION: No acute intracranial hemorrhage or mass effect. Senescent and small-vessel ischemic change as detailed above. I recommend MRI with diffusion-weighted imaging if clinically indicated. I discussed these findings with Tyra Wheeler by telephone at 10:28 EST on 09/09/2025. Reading Location: [facility] Abdomen/Pelvis CT 09/09/25 10:12 IMPRESSION: Marked distention of colon and the stomach as well as numerous loops of small bowel which are filled with fluid. There is a large amount of rectal stool. This may reflect fecal impaction causing obstruction with proximal bowel dilatation. Surgical and/or GI consultation is recommended. There is a percutaneous gastrostomy tube which is not in the stomach. This likely needs to be replaced and/or repositioned. Please note that there was significant fluid noted in the esophagus on the CTA of the neck. This was discussed with the provider by telephone and she stated that a nasogastric tube would be placed. Patchy nodularity at the lung bases which has an inflammatory/infectious appearance. Aspiration could give this appearance and would correlate with the above mentioned findings. Additional findings as above. Reading Location: [facility] Chest CTA 09/09/25 10:12 IMPRESSION: No pulmonary embolus noted. Tree-in-bud opacities generally located dependently in both lungs, most pronounced in the right lower lobe. This suggests inflammatory/infectious process and can typically be seen with chronic aspiration. Esophageal fluid, stent, and additional findings as detailed above. Please see the abdominal pelvis CT report for details on the abdomen. Reading Location: [facility] Head/Neck CTA 09/09/25 10:12 IMPRESSION: No significant arterial vascular abnormality. There is significant debris and/or soft tissue in the region of the esophageal stent, of which only the proximal portion is visualized. This could be an aspiration risk. I spoke to the referring clinical service, Tyra Wheeler, about these findings at approximately 11:20 a.m. on 09/09/2025. Additional findings as above. Reading Location: [facility] Chest X-Ray 09/09/25 13:15 IMPRESSION: 1. Endotracheal tube in satisfactory position. 2. Nasogastric tube running parallel and left lateral to the esophageal stent. Review of recent CT shows that the stent at the level of the thoracic inlet shows slight deviation to the right. After withdrawal of the nasogastric tube, consider replacing the tube while the patient is right side down to encourage passage of the nasogastric tube into the lumen of the stent. 3. Satisfactory position of the right internal jugular line 4. Acinar opacities bilaterally from aspiration. Aspiration pneumonia should be considered. 5. Partially imaged gas and fluid-filled, distended stomach. Reading Location: [id number] Procedures Intubations Intubation Method: orotracheal Intubation Verification: Positive color change and Bilateral breath sounds confirmed Intubation Complications: no complications Other Procedures Procedure(s): central line Critical Care Time Critical Care Time: Yes Critical care time (excluding procedures): 30-74 minutes (31), Discussing w/Patient &/or Family/Freelance Designer, Discussing w/Consultants, Arranging Admission or Transfer and Performing Direct Patient Care at Bedside Discharge Plan Triage Chief Complaint: Weakness ED Provider: Tyra Wheeler Dx/Rx/DC Orders Primary Care Provider: Jay Kincaid CAREER DEVELOPMENT MANAGER
--- NOTE | 2025-09-09 10:08 | EKG12_ITS ---
Test Reason : STROKE ALERT
--- NOTE | 2025-09-09 10:09 | CM.ED ---
Social Work Date of referral: 09/09/25 Reason for referral: Stroke Alert Corncob Pipes Assembler responded to stroke alert. Patient was being transported to imaging and no one else was in the room. Corncob Pipes Assembler offered to call someone however the need to do so was denied. Janell Díaz, [employer] POWERPLANT MECHANIC, REPLENISHMENT ANALYST
--- NOTE | 2025-09-09 10:10 | CT_ITS ---
PROCEDURE: CT/STROKE Brain/Head without Cont
--- NOTE | 2025-09-09 10:12 | CT_ITS ---
PROCEDURE: CT/CTA Chest W/WO Contrast
--- NOTE | 2025-09-09 10:12 | CT_ITS ---
PROCEDURE: CT/Abdomen/Pelvis W IV Cont ONLY
--- NOTE | 2025-09-09 10:12 | CT_ITS ---
PROCEDURE: CT/STROKE CTA Head AND Neck W/Con
[2025-09-09] MEDS: 0.9% Normal Saline (1000mL) 1,000 ML 999 ML IV (10:20)
[2025-09-09 10:50] LABS: Mucous, Urine 0 SEEN /hpf (<or=2+); Red Blood Cells-Urine 0 SEEN /hpf (0-5); Squamous Epithelial Cells - UA 0 SEEN /hpf (5-10)
[2025-09-09 10:51] LABS: Color, Urine Yellow (Yellow); Glucose, Dipstick Normal (Normal); Ketone-Dipstick Negative (Negative); Leukocyte Esterase-Dipstick 500 /ul (Negative); Nitrite-Dipstick Negative (Negative); Occult Blood-Urine 10 /ul (Negative); Protein-Dipstick 100 mg/dl (Negative); Specific Gravity, Urine 1.015 (1.002-1.030); Urine Bilirubin Dipstick Negative (Negative)
[2025-09-09 10:56] LABS: Yeast-Urine RARE /hpf (None Seen)
[2025-09-09] MEDS: Pantoprazole Sodium 40 MG in 0.9% Normal Saline (100mL MB+) 100 ML 300 MG IV (10:57)
[2025-09-09] MEDS: Piperacil/Tazobactam 3.375 GM in 0.9% Normal Saline (50mL MB+) 50 ML IV (10:59)
[2025-09-09 12:05] LABS: Hematocrit 18.0 % (37-47); Immature Granulocytes Count 0.310 X10^3/uL (0.0-0.0); Mean Corp Hgb Conc 29.4 g/dL (32-36); Mean Corpuscular Volume 101.1 fL (81-99); Mean Platelet Vol. 9.3 fl (6.2-12.0); NRBC Flagged by Analyzer 0.1 % (0-5); POSITIVE COUNT YES; POSITIVE DIFFERENTIAL YES; Platelet Count 452 K/mm3 (150-450); RBC Distribution Width CV 15.4 % (11.6-14.6); RBC Distribution Width SD 54.6 fl (35.1-43.9); Red Blood Count 1.78 M/mm3 (4.2-5.4); White Blood Count 27.5 K/mm3 (4.4-11.0)
[2025-09-09 12:07] LABS: Differential Indicated SCAN CRITERIA MET; Hemoglobin 5.3 g/dL (12.0-15.0)
[2025-09-09 12:11] LABS: Prothrombin Time (Protime)PT. 16.3 SECONDS (11.7-14.9)
[2025-09-09 12:12] LABS: Partial Thromboplast Time 22.8 Seconds (24.1-36.2)
[2025-09-09] MEDS: Vancomycin HCl 1,500 MG in 0.9% Normal Saline (500mL Bag) 500 ML 250 MG IV (12:15)
[2025-09-09 12:26] LABS: Lipase 36 U/L (13-75); Magnesium 3.8 mg/dL (1.5-2.2); Troponin T High Sensitivity 52 ng/L (<=14)
[2025-09-09] MEDS: 0.9% Normal Saline (1000mL) 1,000 ML 1000 ML IV (12:32)
[2025-09-09] MEDS: Norepinephrine Bit/0.9% NaCl 8 MG/250 ML IV.SOLN 9.4 MG CONT INF (12:36)
[2025-09-09 12:45] LABS: AST(SGOT) 39 U/L (<=31); Alanine Aminotransfer ALT/SGPT 27 U/L (<=34); Albumin, Serum 2.9 g/dL (3.4-4.8); Alkaline Phosphatase 71 U/L (35-104); Anion Gap 25 (5-15); BUN 119 mg/dL (4-19); BUN/Creat Ratio 30.7 RATIO (10-20); Calcium,Total 9.5 mg/dL (7.6-11.0); Carbon Dioxide 17.7 mmol/L (21.0-32.0); Chloride 97 mmol/L (98-108); Estimated Creatinine Clearance 11.10 ml/min (50-250); Globulin 2.7 g/dL (2.2-4.2); Glucose 95 mg/dL (70-99); Potassium 5.9 mmol/L (3.3-5.1)
[2025-09-09 13:00] LABS: Allen Test Positive; Base Excess -14 mmol/L (-2 to +2); FI02 50.0; PEEP 5; PO2 91 mmHG (75-100); RR 14; SITE R Radial; SO2 94 % (94-98); Time Given 12:56:25
[2025-09-09] MEDS: fentaNYL drip 100 ML 2.5 MCG CONT INF (13:06)
--- NOTE | 2025-09-09 13:15 | RAD_ITS ---
PROCEDURE: RAD/Chest 1 View (Portable)
[2025-09-09 14:01] LABS: Allen Test Positive; Base Excess -14 mmol/L (-2 to +2); FI02 50.0; PEEP 5; PO2 74 mmHG (75-100); RR 14; SITE R Radial; SO2 90 % (94-98); Time Given 13:59:42
[2025-09-09 14:31] LABS: Troponin T High Sens 2 HR 52 ng/L (<=14)
--- NOTE | 2025-09-09 15:07 | PCM.HP.STD ---
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 She was evaluated by her GI doctor yesterday and had her Saw tube changed and was noted to have mild infection around the stoma site and was placed on Augmentin for 14 days. Reportedly patient today was feeling generally weak so called EMS to bring her to the ED because he was concerned she would fall, she developed slurred speech around the time EMS arrived. then provided history that for the past 2 or 3 weeks she had abdominal distention, pain, nausea and vomiting.. In the ED temp 97.7 which dropped to 93.2, heart rate 94 with a blood pressure of 63/53, respiratory rate 27 and pulse ox 95% on room air. Patient was a stroke called due to the slurred speech. CT head no acute process, CTA head and neck with no LVO however noted significant debris in the region of the esophageal stent. GI specimen negative for occult blood but given presentation unclear if this is reliable. White blood cell count 27.5, hemoglobin 5.3 down from 7.3 yesterday with a baseline of around 10. Platelet count 452 INR 1.3, troponin 52. TSH within normal limits, lipase within normal limits. CMP demonstrated potassium of 5.9, bicarb of 17.7 with a gap of 25, BUN 119 with a creatinine of 3.88 up from 3.21 yesterday with a baseline of around 2.5. Lactic acid found to be 10 and an ABG with a pH of 7.16. CTA of the chest showed tree-in-bud opacities generally located dependently in both lungs more pronounced in right lower lobe possibly inflammatory versus infectious. Esophageal fluid and stent also seen. CT of the abdomen pelvis with marked distention of colon and the stomach as well as numerous loops of small bowel which are fluid-filled and large amount of rectal stool. Percutaneous gastrostomy tube suspected to not in the stomach. Patient decompensated in the ED requiring mechanical ventilation and initiation of Levophed. She was started on broad-spectrum antibiotics and IV fluids and hospitalist contacted for admission to the ICU for septic shock and anemia. GI was contacted in the ED and will see in consultation. Patient evaluated with and daughter at bedside. Reportedly she has been having the abdominal distention and nausea and vomiting over the past couple of weeks but over the past day developed the generalized weakness. Her stool and emesis have been dark and almost black in color with no bright red blood. He reports she has a chronic cough but not necessarily changed, notes that last night he felt like she was breathing heavy and maybe had some shortness of breath. did confirm that patient does have stool output and that is not just liquid and has been having it during this period of time as well. Unable to obtain further history from patient's secondary to patient being intubated and sedated. [facility] Medical History (Updated 09/09/25 @ 15:[address] Anabela Saavedra MD) Acute renal insufficiency Acute uremia Alzheimer disease Anemia Anemia Anemia, unspecified Anxiety Arthritis Aspiration pneumonia Back pain Bipolar disorder Bipolar disorder Bipolar disorder with moderate depression Bladder disease Cough Delirium due to multiple etiologies Diabetes insipidus Dietary restriction Difficulty chewing Dysphagia Dysphagia Erosive esophagitis Falls Former smoker Gastric paresis Gastric reflux Gastroparesis Generalized weakness GI bleed Gram-negative bacteremia History of Clostridium difficile infection History of echocardiogram History of gastrostomy tube placement History of herpes zoster History of hiatal hernia History of jejunostomy tube placement History of Mohs micrographic surgery for skin cancer History of pain when walking History of renal disease Hypercalcemia Hypernatremia Hypertension Iron deficiency anemia Nondiabetic gastroparesis Post-menopausal Pulmonary emboli Secondary hyperparathyroidism of renal origin Severe dehydration Severe malnutrition Severe malnutrition Stenosis of esophagus Tardive dyskinesia Thyroid disease Unsteady gait UTI (urinary tract infection) Wears glasses Home Medications ?Medication ?Instructions ?Recorded ?Last Taken ?Type methimazole 5 mg tablet 5 mg feeding tube MOTUWETHFR 10/04/20 01/14/23 History Thyroid denosumab 60 mg/mL subcutaneous 60 mg subcut .Q6MO osteoporosis 09/05/22 08/27/22 History syringe (Prolia) polyethylene glycol 3350 17 17 g PO DAILY PRN constipation 09/05/22 09/05/22 History gram/dose oral powder (Miralax) lamotrigine 100 mg tablet 200 mg feeding tube DAILY Bipolar 03/19/23 07/15/24 History Disorder memantine 10 mg tablet 10 mg feeding tube DAILY Check 04/20/23 07/15/24 History with primary doctor lorazepam 2 mg tablet 2 mg PO 4X/DAY PRN anxiety 06/11/23 08/02/25 History estradiol 0.01% (0.1 mg/gram) 1 applic vaginal .3 TIMES WEEKLY 04/06/24 Unknown History vaginal cream ferrous sulfate 325 mg (65 mg 325 mg PO DAILY SUPPLEMENT 04/06/24 Unknown History iron) tablet nutritional supplements 0.06 948 ml feeding tube QHS 07/04/24 Unknown History gram-1.2 kcal/mL oral liquid (Osmolite 1.2 Mp) acetaminophen 650 mg/20.3 mL oral 650 mg (20.3 mL) G-tube Q6H PRN 07/10/24 Unknown Rx solution PRN Pain 1-10 Or Fever #0 mL cinacalcet 30 mg tablet 30 mg PO SUMOTUWETHFR 07/13/24 Unknown History cholecalciferol (vitamin D3) 50 100 mcg (2 x 50 mcg (2,000 unit)) 01/04/25 Unknown Rx mcg (2,000 unit) capsule PO DAILY #60 caps scopolamine base 1 mg over 3 days 1 patch transdermal Q3D #10 ea 04/26/25 08/02/25 Rx transdermal patch lansoprazole 30 mg capsule,delayed 30 mg PO BID #60 caps 05/05/25 08/02/25 Rx release oxybutynin chloride 15 mg 15 mg PO DAILY Overactive bladder 06/12/25 08/01/25 Rx tablet,extended release 24 hr #90 tabs docusate sodium 100 mg capsule 100 mg PO DAILY 07/27/25 Unknown History (Colace) glycopyrrolate 2 mg tablet 2 mg feeding tube BID secretions 07/27/25 Unknown History ondansetron HCl 4 mg tablet 4 - 8 mg feeding tube Q6H PRN PRN 07/27/25 Unknown History for nausea/vomiting amoxicillin 875 mg-potassium 1 tab PO Q12H 14 days #28 tabs 09/06/25 Unknown Rx clavulanate 125 mg tablet neomycin-bacitracn Zn-polymyx 3.5 1 applic topical TID #30 grams 09/06/25 Unknown Rx mg-400 unit-5,000 unit/gram top oint Allergy/AdvReac Type Severity Reaction Status Date / Time No Known Allergies Allergy Verified 09/09/25 10:23 Family History Father CVA (cerebral vascular accident) Sister CVA (cerebral vascular accident) Cancer Surgical History History of esophagogastroduodenoscopy (EGD) History of esophagogastroduodenoscopy (EGD) Hx of esophagogastroduodenoscopy Social History household members: spouse housing: house Smoking Status: Former smoker Tobacco: How many years used: 4 second hand exposure: Yes alcohol intake: never substance use type: does not use what type of physical activity do you participate in: other details: OT [facility] [place] frequency: daily valentina/cheondoism: Pentecostal seatbelt use: always additional social history: Ambulates at baseline without assistive device ROS ROS Narrative Unable to obtain ROS secondary to intubated and sedated Vital Signs Vital Signs Vital Signs: 09/09/25 10:01 09/09/25 10:02 09/09/25 10:13 Temperature 97.7 F L Temperature Source Oral Pulse Rate 94 110 H Respiratory Rate 27 H 18 Respiratory Effort Respiratory Pattern Blood Pressure 63/53 L 63/53 L 63/53 L Blood Pressure Mean 59 56 56 Blood Pressure Source Blood Pressure Position Blood Pressure Location Pulse Ox 95 95 Oxygen Delivery Method Room Air Room Air Fraction of Inspired Oxygen (FIO2) 09/09/25 10:25 09/09/25 10:30 09/09/25 10:46 Temperature 93.7 F L Temperature Source Core Pulse Rate 92 93 Respiratory Rate 25 H 25 H Respiratory Effort Respiratory Pattern Normal Blood Pressure 89/69 L 75/53 L Blood Pressure Mean 77 59 Blood Pressure Source Blood Pressure Position Blood Pressure Location Pulse Ox Oxygen Delivery Method Fraction of Inspired Oxygen (FIO2) 09/09/25 11:08 09/09/25 11:15 09/09/25 11:31 Temperature 93.2 F L 96.1 F L Temperature Source Core Core Pulse Rate 60 93 110 H Respiratory Rate 22 H 36 H 12 Respiratory Effort Respiratory Pattern Blood Pressure 70/53 L 76/46 L 63/53 L Blood Pressure Mean 58 57 56 Blood Pressure Source Blood Pressure Position Blood Pressure Location Pulse Ox 92 95 Oxygen Delivery Method Room Air Room Air Fraction of Inspired Oxygen (FIO2) 09/09/25 11:41 09/09/25 11:43 09/09/25 11:53 Temperature 96.5 F L 96.6 F L 96.6 F L Temperature Source Core Core Core Pulse Rate 103 H 85 92 Respiratory Rate 22 H 24 H 28 H Respiratory Effort Respiratory Pattern Blood Pressure 68/43 L 65/48 L 65/48 L Blood Pressure Mean 49 53 54 Blood Pressure Source Blood Pressure Position Blood Pressure Location Pulse Ox 90 Oxygen Delivery Method Room Air Fraction of Inspired Oxygen (FIO2) 09/09/25 12:00 09/09/25 12:15 09/09/25 12:17 Temperature 96.6 F L 96.8 F L 97.3 F L Temperature Source Core Core Core Pulse Rate 96 106 H 93 Respiratory Rate 15 31 H 16 Respiratory Effort Respiratory Pattern Blood Pressure 90/49 L 63/42 L 83/52 L Blood Pressure Mean 60 51 62 Blood Pressure Source Blood Pressure Position Blood Pressure Location Pulse Ox 94 Oxygen Delivery Method Mechanical Ventilator Fraction of Inspired Oxygen (FIO2) 50 09/09/25 12:23 09/09/25 12:26 09/09/25 12:30 Temperature 96.9 F L Temperature Source Core Pulse Rate 91 76 Respiratory Rate 29 H 17 Respiratory Effort Short of Breath Respiratory Pattern Normal Blood Pressure 61/47 L Blood Pressure Mean 53 Blood Pressure Source Blood Pressure Position Blood Pressure Location Pulse Ox 94 Oxygen Delivery Method Fraction of Inspired Oxygen (FIO2) 09/09/25 12:30 09/09/25 12:45 09/09/25 13:15 Temperature 97.0 F L 96.9 F L Temperature Source Core Core Pulse Rate 79 Respiratory Rate 43 H 14 Respiratory Effort Respiratory Pattern Blood Pressure 53/38 L 74/46 L 88/46 L Blood Pressure Mean 45 57 59 Blood Pressure Source Blood Pressure Position Blood Pressure Location Pulse Ox 100 Oxygen Delivery Method Fraction of Inspired Oxygen (FIO2) 09/09/25 13:29 09/09/25 13:30 09/09/25 13:44 Temperature 97.2 F L 97.2 F L 97.5 F L Temperature Source Core Core Core Pulse Rate 103 H 96 100 Respiratory Rate 95 H 14 14 Respiratory Effort Respiratory Pattern Blood Pressure 83/52 L 83/52 L 92/57 L Blood Pressure Mean 62 63 68 Blood Pressure Source Monitor Monitor Blood Pressure Position Semi-Fowlers Supine Blood Pressure Location Left Arm Pulse Ox 96 97 Oxygen Delivery Method Mechanical Ventilator Mechanical Ventilator Fraction of Inspired Oxygen (FIO2) 50 09/09/25 13:45 09/09/25 14:00 09/09/25 14:17 Temperature 97.5 F L 97.7 F L 97.9 F Temperature Source Core Core Core Pulse Rate 113 H 102 H 104 H Respiratory Rate 20 H 18 19 H Respiratory Effort Respiratory Pattern Blood Pressure 92/57 L 93/59 L 83/58 L Blood Pressure Mean 67 71 66 Blood Pressure Source Blood Pressure Position Blood Pressure Location Pulse Ox 95 83 92 Oxygen Delivery Method Room Air Fraction of Inspired Oxygen (FIO2) 09/09/25 14:30 09/09/25 14:42 Temperature 98.1 F 98.1 F Temperature Source Core Pulse Rate 105 H 104 H Respiratory Rate 26 H 21 H Respiratory Effort Respiratory Pattern Blood Pressure 86/63 L 86/63 L Blood Pressure Mean 72 70 Blood Pressure Source Blood Pressure Position Blood Pressure Location Pulse Ox 91 91 Oxygen Delivery Method Fraction of Inspired Oxygen (FIO2) Weight Weight: 59.5 kg Body Mass Index (BMI) 21.8 Physical Exam Narrative General: Intubated and sedated HEENT: Atraumatic, normocephalic Eyes: Eyes closed, no spontaneous opening Neck: Supple Respiratory: Mechanically ventilated, diminished bilaterally Cardiovascular: Low-grade sinus tachycardia GI: Distended, unclear if there is tenderness as patient is sedated Extremities: No peripheral edema Musculoskeletal: Presently sedated and not moving extremities spontaneously Neuro: Unable to participate in neuro exam secondary to intubated and sedated Skin: No rashes appreciated Psych: Unable to cooperate secondary to intubated and sedated Results Lab / Micro Data 09/09/25 11:35 09/09/25 11:35 Labs: Laboratory Results - last 24 hr 09/09/25 10:46: Urine Color Yellow, Urine Clarity Sl. Cloudy, Urine pH 6.0, Ur Specific [place] 1.015, Urine Protein 100 H, Urine Glucose (UA) Normal, Urine Ketones Negative, Urine Occult Blood 10 H, Urine Nitrite Negative, Urine Bilirubin Negative, Urine Urobilinogen 1 H, Ur Leukocyte Esterase 500 H, Urine RBC 0 SEEN, Urine WBC 5-10 SEEN, Ur Squamous Epith Cells 0 SEEN, Ur Renal Epithelial Cell 0-5 SEEN, Urine Bacteria RARE, Urine Mucus 0 SEEN, Urine Yeast RARE 09/09/25 10:53: POC Glucose 120 H 09/09/25 11:35: WBC 27.5 H, RBC 1.78 L, Hgb 5.3 L*, Hct 18.0 L, MCV 101.1 H, MCH 29.8, MCHC 29.4 L, RDW Std Deviation 54.6 H, RDW Coeff of Lee 15.4 H, Plt Count 452 H, MPV 9.3, Immature Gran % (Auto) 1.100 H, Neut % (Auto) 90.8 H, Lymph % (Auto) 1.8 L, [place] % (Auto) 6.1, Eos % (Auto) 0.0, Baso % (Auto) 0.2, Absolute Neuts (auto) 25.0 H, Absolute Lymphs (auto) 0.49 L, Nucleated RBC % 0.1, PT 16.3 H, INR 1.3, APTT 22.8 L, Sodium 140, Potassium 5.9 H, Chloride 97 L, Carbon Dioxide 17.7 L, Anion Gap 25 H, BUN 119 H*, Creatinine 3.88 H, Estim Creat Clear Calc 11.10 L, Est GFR (MDRD) Non-Af 11 L, BUN/Creatinine Ratio 30.7 H, Glucose 95, Lactic Acid 10.0 H*, Calcium 9.5, Magnesium 3.8 H, Total Bilirubin 0.32, AST 39 H, ALT 27, Alkaline Phosphatase 71, Troponin T High Sens 52 H, Total Protein 5.6 L, Albumin 2.9 L, Globulin 2.7, Albumin/Globulin Ratio 1.1, Lipase 36, TSH 0.783, Blood Type B POSITIVE, Antibody Screen NEGATIVE, Crossmatch See Detail 09/09/25 11:35: Crossmatch See Detail 09/09/25 14:06: Troponin T Hi Sens 2 Hr 52 H Micro: Microbiology 09/09/25 10:46 Stool Stool Occult Blood (LIZ) - Final ABG Data ABG results: ABG 09/09/25 09/09/25 12:54 13:58 Specimen Type ART ART Sample Site R Radial R Radial pH 7.16 L* 7.15 L* Bicarbonate Actual 15.1 L 15.3 L Total CO2 16 17 Base Excess -14 L -14 L O2 Saturation 94 90 L O2 % 50.0 50.0 ABG pCO2 42.5 44.4 ABG pO2 91 74 L Gaudencio Test Positive Positive Respiration Rate 14 14 O2 Delivery Device Adult Vent Adult Vent Vent Mode AC AC Tidal Volume 450.0 450.0 POC PEEP 5 5 Crit Call To/Read Back Yes Yes Blood Gas Notified Olimpia wheeler Blood Gas Notified Time 12:56:25 13:59:42 Imaging Radiology Impression Brain CT 09/09/25 10:10 IMPRESSION: No acute intracranial hemorrhage or mass effect. Senescent and small-vessel ischemic change as detailed above. I recommend MRI with diffusion-weighted imaging if clinically indicated. I discussed these findings with Tyra Summer by telephone at 10:28 EST on 09/09/2025. Reading Location: [facility] Abdomen/Pelvis CT 09/09/25 10:12 IMPRESSION: Marked distention of colon and the stomach as well as numerous loops of small bowel which are filled with fluid. There is a large amount of rectal stool. This may reflect fecal impaction causing obstruction with proximal bowel dilatation. Surgical and/or GI consultation is recommended. There is a percutaneous gastrostomy tube which is not in the stomach. This likely needs to be replaced and/or repositioned. Please note that there was significant fluid noted in the esophagus on the CTA of the neck. This was discussed with the provider by telephone and she stated that a nasogastric tube would be placed. Patchy nodularity at the lung bases which has an inflammatory/infectious appearance. Aspiration could give this appearance and would correlate with the above mentioned findings. Additional findings as above. Reading [facility] Chest CTA 09/09/25 10:12 IMPRESSION: No pulmonary embolus noted. Tree-in-bud opacities generally located dependently in both lungs, most pronounced in the right lower lobe. This suggests inflammatory/infectious process and can typically be seen with chronic aspiration. Esophageal fluid, stent, and additional findings as detailed above. Please see the abdominal pelvis CT report for details on the abdomen. Reading Location[facility] Head/Neck CTA 09/09/25 10:12 IMPRESSION: No significant arterial vascular abnormality. There is significant debris and/or soft tissue in the region of the esophageal stent, of which only the proximal portion is visualized. This could be an aspiration risk. I spoke to the referring clinical service, Tyra Wheeler, about these findings at approximately 11:20 a.m. on 09/09/2025. Additional findings as above. Reading Location[facility] Chest X-Ray 09/09/25 13:15 IMPRESSION: 1. Endotracheal tube in satisfactory position. 2. Nasogastric tube running parallel and left lateral to the esophageal stent. Review of recent CT shows that the stent at the level of the thoracic inlet shows slight deviation to the right. After withdrawal of the nasogastric tube, consider replacing the tube while the patient is right side down to encourage passage of the nasogastric tube into the lumen of the stent. 3. Satisfactory position of the right internal jugular line 4. Acinar opacities bilaterally from aspiration. Aspiration pneumonia should be considered. 5. Partially imaged gas and fluid-filled, distended stomach. Reading Location: [id number] Assessment & Plan Assessment/Plan (1) Septic shock: (2) Aspiration pneumonia: (3) CITLALY (acute kidney injury): (4) Acute blood loss anemia: (5) Hyperkalemia: PLAN: Plan # Septic shock secondary to aspiration pneumonia -Patient presented with a blood cell count of 27.5, CITLALY, lactic acid of 10, bicarb of 17.7 and persistent hypotension with systolic blood pressure in the 60s necessitating central line placement and Levophed -Patient also placed on vasopressin while in the ED -Patient with CT chest/abdomen/pelvis with CT chest showing suspected aspiration pneumonia -There were esophageal contents there is increased concern for aspiration -Patient received 2 L of IV fluid in the ED -Blood cultures -Sputum culture, COVID ordered, respiratory panel ordered -Urine antigens -Mucinex, I/S - Vancomycin and Zosyn given severity of patient's illness -Will check MRSA swab -Given patient's significant acidosis also starting on bicarb drip -Woodwork Teacher consult # Acute blood loss anemia - Hemoglobin 5.3 down from 7.3 yesterday baseline appears to be about 10 - Fecal occult reported to be negative however given presentation and clinical picture with significant elevation in BUN as well as suspected patient has upper GI bleed -PPI drip -GI consult -Patient being transfused -Trend H&H # Abdominal distention -CT of the abdomen pelvis with marked distention of colon and the stomach as well as numerous loops of small bowel which are fluid-filled and large amount of rectal stool -Patient did have similar findings on previous scans been going back a couple of years ago however it is currently worsened - does note that she has been still having some stool output -Soapsuds enemas -NG placed in the ED, to be repositioned to traverse esophageal stent -Hold glycopyrrolate # Acute respiratory failure secondary to underlying critical illness -Patient required intubation and sedation -Woodwork Teacher consult -Vent management # CITLALY on CKD stage IIIb -Patient's creatinine 3.88 up from 3.21 yesterday -Appears baseline is around 2.5 -Suspect secondary to critical illness -IV fluids -Support underlying process - Low threshold for nephrology consult # Hyperkalemia - 5.9 in the ED -IV fluids -Bicarb drip -Patient received insulin - Trend BMP # Elevated troponin - Troponin of 52 with repeat of 52 -Suspect that this is secondary to septic shock # PEG tube - CT queried if percutaneous tube was in stomach -Discussed with GI, patient has endoscopy this can be corrected -Hold feeds at this time # Esophageal stent - Has history of esophageal stent with routine exchanges -Follows with GI # History of bipolar disorder -Stable on Lamictal #GERD - PPI drip as above # Hyperthyroidism -Patient on methimazole #DVT ppx: SCDs Anabela Saavedra MD Time spent in the patient's overall evaluation, decision-making process, review of diagnostic data, adjustment of management, discussion with other providers, nursing and ancillary staff involved in patient's care documentation, 90 Minutes Charges/Coding Visit Charges Inpatient E&M: 66772 Init Hosp L3
[2025-09-09] MEDS: Vasopressin 20 UNITS in 0.9% Normal Saline (50mL Bag) 24 ML 3 UNITS CONT INF ×2 (15:17→17:56)
[2025-09-09 15:40] LABS: Reflex Lactate? Y
[2025-09-09 15:59] LABS: Troponin T High Sens 4 HR 47 ng/L (<=14)
[2025-09-09] MEDS: Calcium Gluconate IV 3 GM in Syringe 1 EACH IV (16:15)
[2025-09-09] MEDS: Insulin Lispro 5 UNIT in Syringe 0 ML 6 UNIT IV (16:15)
--- NOTE | 2025-09-09 16:27 | RAD_ITS ---
PROCEDURE: RAD/Chest 1 View (Portable)
--- NOTE | 2025-09-09 16:28 | PCMCONS.TICU ---
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 She was seen at her GI doctor's office yesterday where she had her Saw tube changed and was noted to have mild infection around the stoma site and was started on Augmentin for 14 days. She was progressively weaker today a/w slurred speech prompting her to call EMS. She has reportedly complained of abdominal pain/distention & N/V for the last 2-3 weeks although this was not mentioned at her GI clinic visit yesterday. In the ED she was found to be hypothermic, hypotensive, tachypneic and with severe lactic acidosis of 10. CT head/CTA head & neck was without acute processes or LVO. CT chest tree-in-bud opacities, mostly dependent & in the RLL, with fluid & debris noted in the esophagus along with an esophageal stent. CT of the abdomen pelvis with marked distention of colon and the stomach as well as numerous loops of small bowel which are fluid-filled and large amount of rectal stool. Percutaneous gastrostomy tube also appears to not be in the stomach. Patient decompensated in the ED requiring mechanical ventilation and initiation of Levophed. Several other lab abnormalities including acute drop in Hgb from 7.3 to 5.3, WBC 27.5, sCr 3.88, K 5.9 & pH 7.16. GI & surgery consults obtained in the ED with discussion re: care plan. Pt too unstable for procedures. Her stool and emesis have been dark and almost black in color with no bright red blood. Pt is now in the ICU on MV support and a critical care care consult has been requested. Pt is getting a 2nd unit of PRBCs right now. Current Fent @ 50 Nepi @ 30 Vaso @ 0.04 14 450 5 50 PE: General: acute on chronically ill female, +MV HEENT: anicteric Sclera; + ETT, nl nose; supple neck, no masses Cardiovascular: tachy; No murmurs, rubs, gallops; no displaced PMI Respiratory: clear anterior breath sounds, diminished bases; no crackles, wheezes, or rhonchi Abdominal: massive distention; hypoBS x 4; +Saw tube Extremities: Warm; No clubbing, cyanosis; capillary refill > 2 sec Neurological: sedated/altered A/P: #Acute respiratory failure #Septic shock #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 #CITLALY on CKD #Hyperkalemia #Lactic acidosis #Esophageal stricture sp stent #Large sliding hiatal hernia #Misplaced gastrostomy/Saw tube #Acute on chronic anemia #Suspected GIB #Massive gastric distention #Colonic distention with large stool burden #Acute toxic/metabolic encephalopathy -Cont MV; settings reviewed; will hyperventilate due to severe Ve demands; cont sedation/analgesia -Cont NEpi/vaso; added Jem & stress dose steroids; repeat lactate now; will see if anyone available for arterial line to assist in her critical care management given pressor requirements and need for freq ABGs -Cont emp IV ABx; F/U Cx -Start HCO3 gtt; cont strict I/Os -SP insulin/albuterol & on HCO3; F/U repeat K level -Cannot get NGT past stricture so unable to decompress stomach and assess for blood loss; her abdomen is massively distention and she is at very high risk for perforation --> GI aware and plan to do endoscopic evaluation this evening & can assist with NGT placement; also ?gastrostomy repositioning; surgery aware but she is a very poor surgical candidate at this time and needs maximal support above to prevent complications; cannot R/O ischemic bowel but cannot A/C due to concurrent anemia/suspected blood loss -Starting PPI gtt; getting 2nd unit PRBC now; F/U repeat Hgb NPO SCDs, PPI gtt Very poor prognosis CCT: 60 min The entirety of this encounter was completed via telemedicine. [facility] Medical History (Updated 09/09/25 @ 15:[address] Anabela Saavedra MD) Aspiration pneumonia Cough History of pain when walking History of Clostridium difficile infection Arthritis History of renal disease History of echocardiogram History of Mohs micrographic surgery for skin cancer Acute uremia Anemia History of jejunostomy tube placement Alzheimer disease Iron deficiency anemia Dysphagia History of gastrostomy tube placement Acute renal insufficiency Gastric paresis Anemia, unspecified Stenosis of esophagus Erosive esophagitis UTI (urinary tract infection) Gram-negative bacteremia Severe malnutrition Severe malnutrition Severe dehydration Wears glasses Post-menopausal Bipolar disorder Diabetes insipidus Thyroid disease Bladder disease Back pain Dietary restriction History of hiatal hernia Gastric reflux Former smoker Generalized weakness Unsteady gait Gastroparesis Nondiabetic gastroparesis Dysphagia GI bleed Tardive [place] History of herpes zoster Hypertension Delirium due to multiple etiologies Hypercalcemia Hypernatremia Secondary hyperparathyroidism of renal origin Bipolar disorder with moderate depression Pulmonary emboli Anemia Anxiety Difficulty chewing Bipolar disorder Home Medications ?Medication ?Instructions ?Recorded ?Last Taken ?Type methimazole 5 mg tablet 5 mg feeding tube MOTUWETHFR 10/04/20 01/14/23 History Thyroid denosumab 60 mg/mL subcutaneous 60 mg subcut .Q6MO osteoporosis 09/05/22 08/27/22 History syringe (Prolia) polyethylene glycol 3350 17 17 g PO DAILY PRN constipation 09/05/22 09/05/22 History gram/dose oral powder (Miralax) lamotrigine 100 mg tablet 200 mg feeding tube DAILY Bipolar 03/19/23 07/15/24 History Disorder memantine 10 mg tablet 10 mg feeding tube DAILY Check 04/20/23 07/15/24 History with primary doctor lorazepam 2 mg tablet 2 mg PO 4X/DAY PRN anxiety 06/11/23 08/02/25 History estradiol 0.01% (0.1 mg/gram) 1 applic vaginal .3 TIMES WEEKLY 04/06/24 Unknown History vaginal cream ferrous sulfate 325 mg (65 mg 325 mg PO DAILY SUPPLEMENT 04/06/24 Unknown History iron) tablet nutritional supplements 0.06 948 ml feeding tube QHS 07/04/24 Unknown History gram-1.2 kcal/mL oral liquid (Osmolite 1.2 Mp) acetaminophen 650 mg/20.3 mL oral 650 mg (20.3 mL) G-tube Q6H PRN 07/10/24 Unknown Rx solution PRN Pain 1-10 Or Fever #0 mL cinacalcet 30 mg tablet 30 mg PO SUMOTUWETHFR 07/13/24 Unknown History cholecalciferol (vitamin D3) 50 100 mcg (2 x 50 mcg (2,000 unit)) 01/04/25 Unknown Rx mcg (2,000 unit) capsule PO DAILY #60 caps scopolamine base 1 mg over 3 days 1 patch transdermal Q3D #10 ea 04/26/25 08/02/25 Rx transdermal patch lansoprazole 30 mg capsule,delayed 30 mg PO BID #60 caps 05/05/25 08/02/25 Rx release oxybutynin chloride 15 mg 15 mg PO DAILY Overactive bladder 06/12/25 08/01/25 Rx tablet,extended release 24 hr #90 tabs docusate sodium 100 mg capsule 100 mg PO DAILY 07/27/25 Unknown History (Colace) glycopyrrolate 2 mg tablet 2 mg feeding tube BID secretions 07/27/25 Unknown History ondansetron HCl 4 mg tablet 4 - 8 mg feeding tube Q6H PRN PRN 07/27/25 Unknown History for nausea/vomiting amoxicillin 875 mg-potassium 1 tab PO Q12H 14 days #28 tabs 09/06/25 Unknown Rx clavulanate 125 mg tablet neomycin-bacitracn Zn-polymyx 3.5 1 applic topical TID #30 grams 09/06/25 Unknown Rx mg-400 unit-5,000 unit/gram top oint Allergy/AdvReac Type Severity Reaction Status Date / Time No Known Allergies Allergy Verified 09/09/25 10:23 Family History Father CVA (cerebral vascular accident) Sister CVA (cerebral vascular accident) Cancer Surgical History History of esophagogastroduodenoscopy (EGD) History of esophagogastroduodenoscopy (EGD) Hx of esophagogastroduodenoscopy Social History household members: spouse housing: house Smoking Status: Former smoker Tobacco: How many years used: 4 second hand exposure: Yes alcohol intake: never substance use type: does not use what type of physical activity do you participate in: other details: OT PT - [facility] [place] frequency: daily valentina/quaker: Jainism seatbelt use: always additional social history: Ambulates at baseline without assistive device ROS Review of Systems ROS Unobtainable: due to endotracheal tube Objective Data Objective Data Vital Signs: Vital Signs Last response Temperature 37.4 C H 09/09/25 16:13 Temperature Source Core 09/09/25 16:13 Pulse Rate 75 09/09/25 16:13 Respiratory Rate 24 H 09/09/25 16:13 Respiratory Effort Short of Breath 09/09/25 12:23 Respiratory Pattern Normal 09/09/25 12:30 Blood Pressure 105/58 L 09/09/25 16:13 Blood Pressure Mean 73 09/09/25 16:13 Blood Pressure Source Monitor 09/09/25 16:13 Blood Pressure Position Supine 09/09/25 16:13 Blood Pressure Location Left Arm 09/09/25 16:13 Pulse Ox 98 09/09/25 16:13 Oxygen Delivery Method Mechanical Ventilator 09/09/25 16:13 Fraction of Inspired Oxygen (FIO2) 50 09/09/25 15:00 I&O: I&O Last 24 Hours 09/08/25 09/09/25 09/09/25 23:59 11:59 23:59 Intake Total 3645.05 / 3645.05 Balance 3645.05 / 3645.05 I&O: Total Stay 09/09/25 09:56 thru 09/09/25 16:20 Intake Total 3645.05 Balance 3645.05 Current Meds Ordered / Administered: Current meds ordered / Administered Generic Name Dose Route Start Last Admin Trade Name Freq PRN Reason Stop Dose Admin Norepinephrine Bitartrate 8 mg in 250 mls @ 9.375 mls/hr 09/09/25 12:45 09/09/25 14:19 CONT INF 30 mcg/min .[id number] BINA 56.3 mls/hr Protocol Titration 5 MCG/MIN Fentanyl 100 mls @ 2.5 mls/hr 09/09/25 13:00 09/09/25 14:51 CONT INF 50 mcg/hr UD BINA 5 mls/hr Protocol Titration 25 MCG/HR Vasopressin 20 units/ Sodium 25 mls @ 3 mls/hr 09/09/25 14:55 09/09/25 15:17 Chloride CONT INF 0.04 units/min .[id number] BINA 3 mls/hr 0.04 UNITS/MIN Administration Lab / Micro Data 09/09/25 11:35 09/09/25 11:35 Labs: Laboratory Results - last 24 hr 09/09/25 10:46: Urine Color Yellow, Urine Clarity Sl. Cloudy, Urine pH 6.0, Ur Specific [place] 1.015, Urine Protein 100 H, Urine Glucose (UA) Normal, Urine Ketones Negative, Urine Occult Blood 10 H, Urine Nitrite Negative, Urine Bilirubin Negative, Urine Urobilinogen 1 H, Ur Leukocyte Esterase 500 H, Urine RBC 0 SEEN, Urine WBC 5-10 SEEN, Ur Squamous Epith Cells 0 SEEN, Ur Renal Epithelial Cell 0-5 SEEN, Urine Bacteria RARE, Urine Mucus 0 SEEN, Urine Yeast RARE 09/09/25 10:53: POC Glucose 120 H 09/09/25 11:35: WBC 27.5 H, RBC 1.78 L, Hgb 5.3 L*, Hct 18.0 L, MCV 101.1 H, MCH 29.8, MCHC 29.4 L, RDW Std Deviation 54.6 H, RDW Coeff of Lee 15.4 H, Plt Count 452 H, MPV 9.3, Immature Gran % (Auto) 1.100 H, Neut % (Auto) 90.8 H, Lymph % (Auto) 1.8 L, [place] % (Auto) 6.1, Eos % (Auto) 0.0, Baso % (Auto) 0.2, Absolute Neuts (auto) 25.0 H, Absolute Lymphs (auto) 0.49 L, Nucleated RBC % 0.1, PT 16.3 H, INR 1.3, APTT 22.8 L, Sodium 140, Potassium 5.9 H, Chloride 97 L, Carbon Dioxide 17.7 L, Anion Gap 25 H, BUN 119 H*, Creatinine 3.88 H, Estim Creat Clear Calc 11.10 L, Est GFR (MDRD) Non-Af 11 L, BUN/Creatinine Ratio 30.7 H, Glucose 95, Lactic Acid 10.0 H*, Calcium 9.5, Magnesium 3.8 H, Total Bilirubin 0.32, AST 39 H, ALT 27, Alkaline Phosphatase 71, Troponin T High Sens 52 H, Total Protein 5.6 L, Albumin 2.9 L, Globulin 2.7, Albumin/Globulin Ratio 1.1, Lipase 36, TSH 0.783, Blood Type B POSITIVE, Antibody Screen NEGATIVE, Crossmatch See Detail 09/09/25 11:35: Crossmatch See Detail 09/09/25 14:06: Troponin T Hi Sens 2 Hr 52 H 09/09/25 14:34: Lactic Acid 6.4 H* 09/09/25 15:11: POC Glucose 79 09/09/25 15:37: Troponin T Hi Sens 4Hr 47 H Micro: Microbiology 09/09/25 10:46 Stool Stool Occult Blood (LIZ) - Final ABG Data ABG results: ABG 09/09/25 09/09/25 12:54 13:58 Specimen Type ART ART Sample Site R Radial R Radial pH 7.16 L* 7.15 L* Bicarbonate Actual 15.1 L 15.3 L Total CO2 16 17 Base Excess -14 L -14 L O2 Saturation 94 90 L O2 % 50.0 50.0 ABG pCO2 42.5 44.4 ABG pO2 91 74 L Gaudencio Test Positive Positive Respiration Rate 14 14 O2 Delivery Device Adult Vent Adult Vent Vent Mode AC AC Tidal Volume 450.0 450.0 POC PEEP 5 5 Crit Call To/Read Back Yes Yes Blood Gas Notified Whom audrey audrey Blood Gas Notified Time 12:56:25 13:59:42 Imaging Radiology Impression Brain CT 09/09/25 10:10 IMPRESSION: No acute intracranial hemorrhage or mass effect. Senescent and small-vessel ischemic change as detailed above. I recommend MRI with diffusion-weighted imaging if clinically indicated. I discussed these findings with Tyra Wheeler by telephone at 10:28 EST on 09/09/2025. Reading Location: [facility] Abdomen/Pelvis CT 09/09/25 10:12 IMPRESSION: Marked distention of colon and the stomach as well as numerous loops of small bowel which are filled with fluid. There is a large amount of rectal stool. This may reflect fecal impaction causing obstruction with proximal bowel dilatation. Surgical and/or GI consultation is recommended. There is a percutaneous gastrostomy tube which is not in the stomach. This likely needs to be replaced and/or repositioned. Please note that there was significant fluid noted in the esophagus on the CTA of the neck. This was discussed with the provider by telephone and she stated that a nasogastric tube would be placed. Patchy nodularity at the lung bases which has an inflammatory/infectious appearance. Aspiration could give this appearance and would correlate with the above mentioned findings. Additional findings as above. Reading Location: [facility] Chest CTA 09/09/25 10:12 IMPRESSION: No pulmonary embolus noted. Tree-in-bud opacities generally located dependently in both lungs, most pronounced in the right lower lobe. This suggests inflammatory/infectious process and can typically be seen with chronic aspiration. Esophageal fluid, stent, and additional findings as detailed above. Please see the abdominal pelvis CT report for details on the abdomen. Reading [facility] Head/Neck CTA 09/09/25 10:12 IMPRESSION: No significant arterial vascular abnormality. There is significant debris and/or soft tissue in the region of the esophageal stent, of which only the proximal portion is visualized. This could be an aspiration risk. I spoke to the referring clinical service, Tyra Wheeler, about these findings at approximately 11:20 a.m. on 09/09/2025. Additional findings as above. Reading Location: [facility] Chest X-Ray 09/09/25 13:15 IMPRESSION: 1. Endotracheal tube in satisfactory position. 2. Nasogastric tube running parallel and left lateral to the esophageal stent. Review of recent CT shows that the stent at the level of the thoracic inlet shows slight deviation to the right. After withdrawal of the nasogastric tube, consider replacing the tube while the patient is right side down to encourage passage of the nasogastric tube into the lumen of the stent. 3. Satisfactory position of the right internal jugular line 4. Acinar opacities bilaterally from aspiration. Aspiration pneumonia should be considered. 5. Partially imaged gas and fluid-filled, distended stomach. Reading Location: [id number] Assessment and Plan . Assessment and plan: Critical Care Time: The entirety of this encounter was done via Telemedicine
--- NOTE | 2025-09-09 17:17 | PCM.RX.CS ---
Consult Antibiotic Management Pharmacy has been consulted to manage selected antibiotic: Vancomycin Type of Intervention Type of Consult: New start Suspected Infection Suspected Infection: Sepsis and Pneumonia Prior Doses of Antibiotics Prior Doses of Antibiotics Received/Current Regimen: received vanc 1500mg IV x1 in E.R. starting at 12:15 today Labs Labs: Sodium 140 mmol/L (133-145) 09/09/25 11:35 Potassium 5.9 mmol/L (3.3-5.1) H 09/09/25 11:35 Chloride 97 mmol/L (98-108) L 09/09/25 11:35 Carbon Dioxide 17.7 mmol/L (21.0-32.0) L 09/09/25 11:35 Anion Gap 25 (5-15) H 09/09/25 11:35 BUN 119 mg/dL (4-19) H* 09/09/25 11:35 Creatinine 3.88 mg/dL (0.70-1.20) H 09/09/25 11:35 Est GFR (MDRD) Non-Af 11 (>60) L 09/09/25 11:35 BUN/Creatinine Ratio 30.7 RATIO (10-20) H 09/09/25 11:35 Glucose 95 mg/dL (70-99) 09/09/25 11:35 Microbiology Microbiology: Microbiology 09/09/25 10:46 Stool Stool Occult Blood (LIZ) - Final Dosing Weight Weight used for dosin.5 kg Estimated Creatinine Clearance Estimated Creatinine Clearance: 11 ml/min Goal Trough Goal Trough: 15-20 mcg/mL Pharmacy Plan for Drug Dosing Pharmacy Plan for Drug Dosing: The patient's CrCl is <20 ml/min so will use dosing protocol for patient's with CrCl <20 and not on dialysis. Since the patient already received the loading dose in E.R., she will not need another dose until a random level is checked on 09/11/25. Will use that level to determine if a dose (based on the patient's weight) should be given on 09/11/25. Pharmacy Service will continue to monitor and adjust dosing as required. Follow-Up Labs Follow-Up Labs: Trough: Vancomycin (random) Date/Time Labs Ordered Labs to be done on [date and time ordered]: 09/11/25 06:00
[2025-09-09 17:33] LABS: FI02 50.0; PEEP 5; RR 14; SITE L Radial; Time Given 17:31:23; VBG BASE EXCESS -16 mmol/L (-1.0-3.5); VBG PO2 34 mmHg (25-40); VBG SO2 47 % (50-70); VBG TCO2 15 mmol/L (23-33)
[2025-09-09] MEDS: Norepinephrine 8 MG in 0.9% Normal Saline (250mL Bag) 242 ML 56.3 ML IV ×2 (17:42→22:08)
[2025-09-09] MEDS: Pantoprazole Sodium 80 MG in 0.9% Normal Saline (50mL Bag) 15 ML 420 MG IV BOLUS (17:56)
[2025-09-09] MEDS: Pantoprazole Sodium 80 MG in 0.9% Normal Saline (100mL Bag) 80 ML 10 MG CONT INF (18:02)
[2025-09-09] MEDS: Sodium Bicarbonate 150 MEQ in Dextrose 5%-Water (1000mL Bag) 1,000 ML 100 MEQ IV (18:08)
[2025-09-09] MEDS: Phenylephrine 10 MG in 0.9% Normal Saline (250mL Bag) 249 ML 15 MG CONT INF (18:30)
--- NOTE | 2025-09-09 18:35 | NURSING ---
Dr. Verma and endo staff at bedside discussing case with patient and daughter. Dr. Verma performed EGD, medications given as ordered. BP dropped several times, neosynephrine titrated per protocol.
[2025-09-09 18:50] LABS: Hematocrit 33.7 % (37-47); Hemoglobin 10.5 g/dL (12.0-15.0)
[2025-09-09 18:57] LABS: Reflex Lactate? Y
[2025-09-09] MEDS: Midazolam 2 MG/2 ML Syringe 4 MG IV (19:22)
--- NOTE | 2025-09-09 19:56 | EX.PCM.CON.G ---
HPI Consult Data Date of Consult: 09/09/25 HPI Narrative Reason for Consultation: GI bleed and colonic obstruction HPI Narrative: SIMONA HERNANDEZ, is a 75-year-old woman with past medical history of hypoparathyroidism, diabetes insipidus, bipolar disorder, anxiety, depression, stage III renal insufficiency, severe esophageal stricture causing recurrent aspiration pneumonias resulting in esophageal stent placement after multiple episodes of unsuccessful dilation. She is also status post PEG tube placement due to failure to thrive. She developed severe gastroparesis after being treated with multiple atypical antipsychotic medications after failed ECT treatment for an undiagnosed psychiatric diagnosis multiple years ago. She presented to the ED today with episodes of coffee-ground emesis. She was discovered to have aspiration pneumonia and due to severe hypotension she was intubated in the ED. CT scan abdomen pelvis had shown severe acute on chronic colonic dilation resulting in proximal displacement of the stomach. I was consulted for treatment of hematemesis and colonic obstruction.] [facility] Medical History Aspiration pneumonia Cough History of pain when walking History of Clostridium difficile infection Arthritis History of renal disease History of echocardiogram History of Mohs micrographic surgery for skin cancer Acute uremia Anemia History of jejunostomy tube placement Alzheimer disease Iron deficiency anemia Dysphagia History of gastrostomy tube placement Acute renal insufficiency Gastric paresis Anemia, unspecified Stenosis of esophagus Erosive esophagitis UTI (urinary tract infection) Gram-negative bacteremia Severe malnutrition Severe malnutrition Severe dehydration Wears glasses Post-menopausal Bipolar disorder Diabetes insipidus Thyroid disease Bladder disease Back pain Dietary restriction History of hiatal hernia Gastric reflux Former smoker Generalized weakness Unsteady gait Gastroparesis Nondiabetic gastroparesis Dysphagia GI bleed Tardive [place] History of herpes zoster Hypertension Delirium due to multiple etiologies Hypercalcemia Hypernatremia Secondary hyperparathyroidism of renal origin Bipolar disorder with moderate depression Pulmonary emboli Anemia Anxiety Difficulty chewing Bipolar disorder Home Medications ?Medication ?Instructions ?Recorded ?Last Taken ?Type methimazole 5 mg tablet 5 mg feeding tube MOTUWETHFR 10/04/20 01/14/23 History Thyroid denosumab 60 mg/mL subcutaneous 60 mg subcut .Q6MO osteoporosis 09/05/22 08/27/22 History syringe (Prolia) polyethylene glycol 3350 17 17 g PO DAILY PRN constipation 09/05/22 09/05/22 History gram/dose oral powder (Miralax) lamotrigine 100 mg tablet 200 mg feeding tube DAILY Bipolar 03/19/23 07/15/24 History Disorder memantine 10 mg tablet 10 mg feeding tube DAILY Check 04/20/23 07/15/24 History with primary doctor lorazepam 2 mg tablet 2 mg PO 4X/DAY PRN anxiety 06/11/23 08/02/25 History estradiol 0.01% (0.1 mg/gram) 1 applic vaginal .3 TIMES WEEKLY 04/06/24 Unknown History vaginal cream ferrous sulfate 325 mg (65 mg 325 mg PO DAILY SUPPLEMENT 04/06/24 Unknown History iron) tablet nutritional supplements 0.06 948 ml feeding tube QHS 07/04/24 Unknown History gram-1.2 kcal/mL oral liquid (Osmolite 1.2 Mp) acetaminophen 650 mg/20.3 mL oral 650 mg (20.3 mL) G-tube Q6H PRN 07/10/24 Unknown Rx solution PRN Pain 1-10 Or Fever #0 mL cinacalcet 30 mg tablet 30 mg PO SUMOTUWETHFR 07/13/24 Unknown History cholecalciferol (vitamin D3) 50 100 mcg (2 x 50 mcg (2,000 unit)) 01/04/25 Unknown Rx mcg (2,000 unit) capsule PO DAILY #60 caps scopolamine base 1 mg over 3 days 1 patch transdermal Q3D #10 ea 04/26/25 08/02/25 Rx transdermal patch lansoprazole 30 mg capsule,delayed 30 mg PO BID #60 caps 05/05/25 08/02/25 Rx release oxybutynin chloride 15 mg 15 mg PO DAILY Overactive bladder 06/12/25 08/01/25 Rx tablet,extended release 24 hr #90 tabs docusate sodium 100 mg capsule 100 mg PO DAILY 07/27/25 Unknown History (Colace) glycopyrrolate 2 mg tablet 2 mg feeding tube BID secretions 07/27/25 Unknown History ondansetron HCl 4 mg tablet 4 - 8 mg feeding tube Q6H PRN PRN 07/27/25 Unknown History for nausea/vomiting amoxicillin 875 mg-potassium 1 tab PO Q12H 14 days #28 tabs 09/06/25 Unknown Rx clavulanate 125 mg tablet neomycin-bacitracn Zn-polymyx 3.5 1 applic topical TID #30 grams 09/06/25 Unknown Rx mg-400 unit-5,000 unit/gram top oint Allergy/AdvReac Type Severity Reaction Status Date / Time No Known Allergies Allergy Verified 09/09/25 10:23 Family History Father CVA (cerebral vascular accident) Sister CVA (cerebral vascular accident) Cancer Surgical History History of esophagogastroduodenoscopy (EGD) History of esophagogastroduodenoscopy (EGD) Hx of esophagogastroduodenoscopy Social History household members: spouse housing: house Smoking Status: Former smoker Tobacco: How many years used: 4 second hand exposure: Yes alcohol intake: never substance use type: does not use what type of physical activity do you participate in: other details: OT PT - [facility] [place] frequency: daily valentina/orthodox: Sabianist seatbelt use: always additional social history: Ambulates at baseline without assistive device ROS ROS Narrative Unable to be obtained Review of Systems ROS Unobtainable: due to mental status Physical Exam Narrative General: Intubated and sedated HEENT: Atraumatic, normocephalic Eyes: Eyes closed, no spontaneous opening Neck: Supple Respiratory: Mechanically ventilated, diminished bilaterally Cardiovascular: Low-grade sinus tachycardia GI: Distended, enlarged distended abdomen Extremities: No peripheral edema Musculoskeletal: Presently sedated and not moving extremities spontaneously Neuro: Unable to participate in neuro exam secondary to intubated and sedated Skin: No rashes appreciated Psych: Unable to cooperate secondary to intubated and sedated Lab / Micro Data 09/09/25 18:40 09/09/25 11:35 Labs: Laboratory Results - last 24 hr 09/09/25 10:46: Urine Color Yellow, Urine Clarity Sl. Cloudy, Urine pH 6.0, Ur Specific Fowler 1.015, Urine Protein 100 H, Urine Glucose (UA) Normal, Urine Ketones Negative, Urine Occult Blood 10 H, Urine Nitrite Negative, Urine Bilirubin Negative, Urine Urobilinogen 1 H, Ur Leukocyte Esterase 500 H, Urine RBC 0 SEEN, Urine WBC 5-10 SEEN, Ur Squamous Epith Cells 0 SEEN, Ur Renal Epithelial Cell 0-5 SEEN, Urine Bacteria RARE, Urine Mucus 0 SEEN, Urine Yeast RARE 09/09/25 10:53: POC Glucose 120 H 09/09/25 11:35: WBC 27.5 H, RBC 1.78 L, Hgb 5.3 L*, Hct 18.0 L, MCV 101.1 H, MCH 29.8, MCHC 29.4 L, RDW Std Deviation 54.6 H, RDW Coeff of Lee 15.4 H, Plt Count 452 H, MPV 9.3, Immature Gran % (Auto) 1.100 H, Neut % (Auto) 90.8 H, Lymph % (Auto) 1.8 L, [place] % (Auto) 6.1, Eos % (Auto) 0.0, Baso % (Auto) 0.2, Absolute Neuts (auto) 25.0 H, Absolute Lymphs (auto) 0.49 L, Nucleated RBC % 0.1, PT 16.3 H, INR 1.3, APTT 22.8 L, Sodium 140, Potassium 5.9 H, Chloride 97 L, Carbon Dioxide 17.7 L, Anion Gap 25 H, BUN 119 H*, Creatinine 3.88 H, Estim Creat Clear Calc 11.10 L, Est GFR (MDRD) Non-Af 11 L, BUN/Creatinine Ratio 30.7 H, Glucose 95, Lactic Acid 10.0 H*, Calcium 9.5, Magnesium 3.8 H, Total Bilirubin 0.32, AST 39 H, ALT 27, Alkaline Phosphatase 71, Troponin T High Sens 52 H, Total Protein 5.6 L, Albumin 2.9 L, Globulin 2.7, Albumin/Globulin Ratio 1.1, Lipase 36, TSH 0.783, Blood Type B POSITIVE, Antibody Screen NEGATIVE, Crossmatch See Detail 09/09/25 11:35: Crossmatch See Detail 09/09/25 14:06: Troponin T Hi Sens 2 Hr 52 H 09/09/25 14:34: Lactic Acid 6.4 H* 09/09/25 15:11: POC Glucose 79 09/09/25 15:37: Troponin T Hi Sens 4Hr 47 H 09/09/25 18:10: Lactic Acid 6.2 H* 09/09/25 18:40: Hgb 10.5 L, Hct 33.7 L Micro: Microbiology 09/09/25 10:46 Stool Stool Occult Blood (LIZ) - Final ABG Data ABG results: ABG 09/09/25 09/09/25 09/09/25 12:54 13:58 17:28 Specimen Type ART ART TROY Sample Site R Radial R Radial L Radial pH 7.16 L* 7.15 L* Bicarbonate Actual 15.1 L 15.3 L Total CO2 16 17 Base Excess -14 L -14 L O2 Saturation 94 90 L O2 % 50.0 50.0 50.0 ABG pCO2 42.5 44.4 ABG pO2 91 74 L Gaudencio Test Positive Positive VBG pH 7.11 L* VBG pO2 34 VBG HCO3 14 L VBG Total CO2 15 L VBG O2 Sat (Calc) 47 L VBG Base Excess -16 L POC Mix VBG pCO2 Pt Tmp 42.6 Respiration Rate 14 14 14 O2 Delivery Device Adult Vent Adult Vent Adult Vent Vent Mode AC AC Tidal Volume 450.0 450.0 450.0 POC PEEP 5 5 5 Crit Call To/Read Back Yes Yes Yes Blood Gas Notified Whom audrey [email or web address] Blood Gas Notified Time 12:56:25 13:59:42 17:31:23 Imaging Radiology Impression Brain CT 09/09/25 10:10 IMPRESSION: No acute intracranial hemorrhage or mass effect. Senescent and small-vessel ischemic change as detailed above. I recommend MRI with diffusion-weighted imaging if clinically indicated. I discussed these findings with Tyra Wheeler by telephone at 10:28 EST on 09/09/2025. Reading Location[facility] Abdomen/Pelvis CT 09/09/25 10:12 IMPRESSION: Marked distention of colon and the stomach as well as numerous loops of small bowel which are filled with fluid. There is a large amount of rectal stool. This may reflect fecal impaction causing obstruction with proximal bowel dilatation. Surgical and/or GI consultation is recommended. There is a percutaneous gastrostomy tube which is not in the stomach. This likely needs to be replaced and/or repositioned. Please note that there was significant fluid noted in the esophagus on the CTA of the neck. This was discussed with the provider by telephone and she stated that a nasogastric tube would be placed. Patchy nodularity at the lung bases which has an inflammatory/infectious appearance. Aspiration could give this appearance and would correlate with the above mentioned findings. Additional findings as above. Reading Location: [facility] Chest CTA 09/09/25 10:12 IMPRESSION: No pulmonary embolus noted. Tree-in-bud opacities generally located dependently in both lungs, most pronounced in the right lower lobe. This suggests inflammatory/infectious process and can typically be seen with chronic aspiration. Esophageal fluid, stent, and additional findings as detailed above. Please see the abdominal pelvis CT report for details on the abdomen. Reading Location: [facility] Head/Neck CTA 09/09/25 10:12 IMPRESSION: No significant arterial vascular abnormality. There is significant debris and/or soft tissue in the region of the esophageal stent, of which only the proximal portion is visualized. This could be an aspiration risk. I spoke to the referring clinical service, Tyra Wheeler, about these findings at approximately 11:20 a.m. on 09/09/2025. Additional findings as above. Reading Location: [facility] Chest X-Ray 09/09/25 13:15 IMPRESSION: 1. Endotracheal tube in satisfactory position. 2. Nasogastric tube running parallel and left lateral to the esophageal stent. Review of recent CT shows that the stent at the level of the thoracic inlet shows slight deviation to the right. After withdrawal of the nasogastric tube, consider replacing the tube while the patient is right side down to encourage passage of the nasogastric tube into the lumen of the stent. 3. Satisfactory position of the right internal jugular line 4. Acinar opacities bilaterally from aspiration. Aspiration pneumonia should be considered. 5. Partially imaged gas and fluid-filled, distended stomach. Reading Location: [id number] Chest X-Ray 09/09/25 16:27 IMPRESSION: 1. NG tube tip in the distal esophagus. Advancement of approximately 15.0 cm is suggested for better positioning. 2. Small lung opacities bilaterally, likely infectious in etiology. Reading Location: [facility] Assessment & Plan Assessment/Plan (1) Acute blood loss anemia: (2) Septic shock: (3) Aspiration pneumonia: (4) Abdominal pain: (5) Colonic obstruction: PLAN: The patient presents with severe gastrointestinal bleeding (coffee-ground emesis), likely exacerbated by her underlying complex medical issues and acute conditions. The CT findings of severe colonic dilation with upward displacement of the stomach are significant and likely contributing to her overall instability and perhaps the GI bleeding itself. The patient is critically ill with aspiration pneumonia and hemodynamic instability requiring intubation and ICU care. Problem List: Severe Upper Gastrointestinal Bleeding (coffee-ground emesis):?Etiology needs workup (e.g., EGD). May be related to the severe anatomical displacement from colonic dilation or other causes. Severe Acute on Chronic Colonic Dilation:?Causing significant mass effect and anatomical distortion (proximal stomach displacement). Requires immediate management to relieve obstruction/dilation. Aspiration Pneumonia:?Caused by severe esophageal stricture/dysphagia history and likely current clinical state. Contributing to critical illness. Severe Hypotension / Hemodynamic Instability:?Cause multifactorial (sepsis from pneumonia, GI bleed, dehydration/volume status). Requires critical care management and resuscitation. Status Post Intubation in ED:?For airway protection and management of shock. Complex Chronic Medical Conditions:?Hypoparathyroidism, diabetes insipidus, stage III renal insufficiency, severe gastroparesis, severe esophageal stricture status post stent, bipolar disorder, anxiety, depression, history of FTT/PEG tube dependency. These significantly complicate management. Plan Consulted for treatment of hematemesis and colonic obstruction. Gastrointestinal Bleeding (Hematemesis): Monitoring:?Continuous hemodynamic monitoring in the ICU. Serial Hgb/Hct checks. Monitor for further bleeding. Resuscitation:?Continue aggressive IV fluid resuscitation and blood product transfusion as needed per Hgb levels and clinical status. Medications:?Initiate IV Proton Pump Inhibitor (PPI) drip. Diagnosis/Treatment:?Once hemodynamically stable enough, perform emergent Esophagogastroduodenoscopy (EGD) to identify and treat the source of upper GI bleeding. EGD:?I spoke with the patient and let them know that she needs an emergent esophagogastric duodenoscopy to control bleeding Colonic Obstruction / Dilation: Monitoring:?Serial abdominal exams. Monitor for signs of bowel ischemia or perforation. Imaging:?Consider plain film imaging to monitor colonic distension (e.g., daily KUB). Decompression:?Consider endoscopic decompression (colonoscopy for placement of decompression tube) once stable enough for procedure, or per general surgery recommendations. Surgical Consult:?General surgery already consulted for colonic obstruction management. Follow their recommendations regarding surgical intervention vs. medical/endoscopic management given the acute on chronic nature and patient's critical state. I will also decompress the colon and place a decompressive tube. Critical Care / Overall Management: ICU Care:?Continue management in the Medical/Surgical ICU. Aspiration Pneumonia:?Continue appropriate broad-spectrum IV antibiotics Hemodynamic Support:?Continue vasopressor support as needed to maintain adequate mean arterial pressure (MAP). Nutrition:?Patient is NPO currently due to intubation/bleeding/obstruction. Continue PEG tube feeding when clinically appropriate? Charges/Coding Visit Charges Inpatient E&M: 57777 Init Hosp L3
--- NOTE | 2025-09-09 20:46 | OP.EGD_ITS ---
Patient Name: Fior Escamilla
[2025-09-09] MEDS: Phenylephrine 10 MG in 0.9% Normal Saline (250mL Bag) 249 ML 270 MG CONT INF ×4 (21:00→23:58)
[2025-09-09 22:12] LABS: FI02 50.0; PEEP 5; RR 34; SITE Not entered; VBG BASE EXCESS -9 mmol/L (-1.0-3.5); VBG PO2 34 mmHg (25-40); VBG SO2 67 % (50-70); VBG TCO2 16 mmol/L (23-33)
--- NOTE | 2025-09-09 22:49 | EKG12_ITS ---
Test Reason : rhythm change
[2025-09-09] MEDS: Epinephrine (1 mg/ml) 1 MG in 0.9% Normal Saline (250mL Bag) 250 ML 86.6 MG CONT INF (22:50)
[2025-09-09] MEDS: Sodium Bicarbonate 8.4% 50 ML Syringe 50 MEQ IV ×2 (22:50→23:52)
[2025-09-09 22:54] LABS: Reflex Lactate? Y
[2025-09-09] MEDS: Amiodarone 150 MG in Dextrose 5%-Water (100mL Bag) 100 ML 600 MG IV BOLUS (22:55)
[2025-09-09 23:11] LABS: Hematocrit 28.9 % (37-47); Hemoglobin 9.6 g/dL (12.0-15.0); Immature Granulocytes Count 0.090 X10^3/uL (0.0-0.0); Mean Corp Hgb Conc 33.2 g/dL (32-36); Mean Corpuscular Volume 95.4 fL (81-99); Mean Platelet Vol. 9.5 fl (6.2-12.0); NRBC Flagged by Analyzer 2.6 % (0-5); POSITIVE MORPHOLOGY YES; Platelet Count 299 K/mm3 (150-450); RBC Distribution Width CV 14.5 % (11.6-14.6); RBC Distribution Width SD 49.5 fl (35.1-43.9); Red Blood Count 3.03 M/mm3 (4.2-5.4); White Blood Count 15.8 K/mm3 (4.4-11.0)
[2025-09-09] MEDS: Amiodarone 360 MG in Dextrose 5% Viaflo Bag 192.8 ML 33.3 MG CONT INF (23:15)
[2025-09-09 23:20] LABS: Partial Thromboplast Time 32.1 Seconds (24.1-36.2); Prothrombin Time (Protime)PT. 23.2 SECONDS (11.7-14.9)
[2025-09-09] MEDS: Chlorhexidine 15 ML PO (23:32)
[2025-09-09 23:33] LABS: Differential Indicated SCAN CRITERIA MET
[2025-09-09] MEDS: Micafungin Sodium 100 MG in Dextrose 5%-Water (100mL Bag) 100 ML IV (23:33)
[2025-09-09 23:38] LABS: Differential Comment SCANNED
[2025-09-09 23:41] LABS: Magnesium 3.6 mg/dL (1.5-2.2)
[2025-09-09] MEDS: Epinephrine (1 mg/ml) 1 MG in 0.9% Normal Saline (250mL Bag) 250 ML 433 MG CONT INF (23:45)
[2025-09-09 23:53] LABS: AST(SGOT) 919 U/L (<=31); Alanine Aminotransfer ALT/SGPT 855 U/L (<=34); Albumin, Serum 2.1 g/dL (3.4-4.8); Alkaline Phosphatase 62 U/L (35-104); Anion Gap 16 (5-15); BUN/Creat Ratio 33.9 RATIO (10-20); Calcium,Total 7.4 mg/dL (7.6-11.0); Carbon Dioxide 19.1 mmol/L (21.0-32.0); Chloride 105 mmol/L (98-108); Estimated Creatinine Clearance 12.93 ml/min (50-250); Globulin 2.1 g/dL (2.2-4.2); Glucose 77 mg/dL (70-99); Potassium 6.3 mmol/L (3.3-5.1)
--- NOTE | 2025-09-09 23:53 | PCM.HOSP.N ---
Hospitalist Note CODE BLUE NOTE: Patient with CODE BLUE called at 10:43 PM with nursing staff noting that patient appeared to have an irregular rhythm on monitor with then plan for EKG however patient became pulseless prompting initiation of epinephrine as well as 2 A of bicarb which had been previously ordered per columnist as well as CPR. At first pulse check patient did have ROSC however remained significantly hypotensive despite 3 pressors. Fourth pressor was added and had previously been ordered already per columnist. Given concern for initial arrhythmia and continued tachycardia on monitor patient was administered amiodarone bolus and a drip was also ordered. EKG very difficult to obtain however repeat obtained and consistent with PAF with RVR with nonspecific changes but unfortunately still not the best EKG despite several tries and changes of patches and reapplication. CBC, CMP, coags, mag, Phos, troponin, lactic acid reordered. Patient family called and updated and presented the hospital. CODE STATUS was rediscussed with patient daughter and patient's including a very thorough discussion and description of her likely outcome given usage of 4 pressors at this time and septic shock with arrhythmia following recent CODE BLUE and despite the understanding that likely she would still pass notes preference to continue full CODE STATUS. Procedures Hospitalists Procedures: 50072 Critical Care 1st Hr
[2025-09-10] VITALS (60 sets, daily range): BP systolic 67–185; BP diastolic 26–90; PULSE 90–118; RESP 19–28; TEMP 37.9–39.6; O2SAT 90–99; BMI 23.3
[2025-09-10] LABS: Troponin T High Sensitivity 69 ng/L (<=14)
[2025-09-10] MEDS: Epinephrine (1 mg/ml) 1 MG in 0.9% Normal Saline (250mL Bag) 250 ML 433 MG CONT INF ×3 (00:15→01:33)
[2025-09-10] MEDS: 0.9% Saline Lock 10 ML Syringe IV ×4 (00:18→05:01)
[2025-09-10 00:20] LABS: BUN 114 mg/dL (4-19)
[2025-09-10] MEDS: Phenylephrine 10 MG in 0.9% Normal Saline (250mL Bag) 249 ML 270 MG CONT INF ×4 (00:57→07:52)
[2025-09-10] MEDS: Piperacil/Tazobactam 3.375 GM in 0.9% Normal Saline (50mL MB+) 50 ML IV ×3 (01:00→22:30)
[2025-09-10 01:02] LABS: Troponin T High Sens 2 HR 129 ng/L (<=14)
[2025-09-10] MEDS: Epinephrine (1 mg/ml) 1 MG in 0.9% Normal Saline (250mL Bag) 250 ML 346.4 MG CONT INF ×3 (01:13→02:50)
[2025-09-10] MEDS: Norepinephrine 8 MG in 0.9% Normal Saline (250mL Bag) 242 ML 56.3 ML IV ×5 (01:30→19:44)
[2025-09-10] MEDS: Vasopressin 20 UNITS in 0.9% Normal Saline (50mL Bag) 24 ML 3 UNITS CONT INF ×3 (01:30→18:55)
[2025-09-10] MEDS: Albuterol 2.5 MG/3 ML VIAL.NEB. INHALATION (01:42)
[2025-09-10] MEDS: Insulin Lispro 10 UNIT in Syringe 0 ML 6 UNIT IV ×3 (01:51→14:51)
[2025-09-10] MEDS: fentaNYL drip 100 ML 7.5 MCG CONT INF ×2 (02:05→15:55)
[2025-09-10 02:29] LABS: Troponin T High Sens 4 HR 165 ng/L (<=14)
[2025-09-10] MEDS: Phenylephrine 10 MG in 0.9% Normal Saline (250mL Bag) 249 ML 240 MG CONT INF ×5 (02:48→06:47)
[2025-09-10] MEDS: Epinephrine (1 mg/ml) 1 MG in 0.9% Normal Saline (250mL Bag) 250 ML 259.8 MG CONT INF ×6 (03:38→08:27)
[2025-09-10] MEDS: Amiodarone 360 MG in Dextrose 5% Viaflo Bag 192.8 ML 16.7 MG CONT INF ×2 (03:55→15:57)
[2025-09-10 04:04] LABS: FI02 50.0; PEEP 5; RR 16; SITE Not entered; VBG BASE EXCESS -14 mmol/L (-1.0-3.5); VBG PO2 89 mmHg (25-40); VBG SO2 96 % (50-70); VBG TCO2 13 mmol/L (23-33)
[2025-09-10] MEDS: Sodium Bicarbonate 150 MEQ in Dextrose 5%-Water (1000mL Bag) 1,000 ML 100 MEQ IV ×2 (04:43→15:56)
[2025-09-10] MEDS: Pantoprazole Sodium 80 MG in 0.9% Normal Saline (100mL Bag) 80 ML 10 MG CONT INF ×3 (04:50→20:44)
[2025-09-10 05:14] LABS: Hematocrit 30.7 % (37-47); Hemoglobin 9.9 g/dL (12.0-15.0); Immature Granulocytes Count 0.190 X10^3/uL (0.0-0.0); Mean Corp Hgb Conc 32.2 g/dL (32-36); Mean Corpuscular Volume 96.5 fL (81-99); Mean Platelet Vol. 9.8 fl (6.2-12.0); NRBC Flagged by Analyzer 1.7 % (0-5); POSITIVE MORPHOLOGY YES; Platelet Count 269 K/mm3 (150-450); RBC Distribution Width CV 14.7 % (11.6-14.6); RBC Distribution Width SD 51.4 fl (35.1-43.9); Red Blood Count 3.18 M/mm3 (4.2-5.4); White Blood Count 17.1 K/mm3 (4.4-11.0)
[2025-09-10 05:18] LABS: Differential Indicated SCAN CRITERIA MET
[2025-09-10 06:04] LABS: Differential Comment SCANNED
[2025-09-10 06:05] LABS: AST(SGOT) 957 U/L (<=31); Alanine Aminotransfer ALT/SGPT 821 U/L (<=34); Albumin, Serum 1.9 g/dL (3.4-4.8); Alkaline Phosphatase 61 U/L (35-104); Anion Gap 15 (5-15); BUN 105 mg/dL (4-19); BUN/Creat Ratio 35.2 RATIO (10-20); Calcium,Total 7.4 mg/dL (7.6-11.0); Carbon Dioxide 14.8 mmol/L (21.0-32.0); Chloride 108 mmol/L (98-108); Estimated Creatinine Clearance 15.04 ml/min (50-250); Globulin 2.1 g/dL (2.2-4.2); Glucose 130 mg/dL (70-99); Potassium 5.9 mmol/L (3.3-5.1)
--- NOTE | 2025-09-10 07:41 | PCM.PN.TICU ---
Objective Data Objective Data Vital Signs: Vital Signs Last response Temperature 38.0 C H 09/10/25 06:00 Temperature Source Core 09/10/25 06:00 Pulse Rate 97 09/10/25 06:00 Respiratory Rate 24 H 09/10/25 06:00 Respiratory Effort Mechanically Ventilated 09/10/25 04:00 Respiratory Pattern Tachypnea 09/10/25 04:36 Blood Pressure 106/42 L 09/10/25 06:00 Blood Pressure Mean 63 09/10/25 06:00 Blood Pressure Source Monitor 09/10/25 06:00 Blood Pressure Position Supine 09/09/25 19:00 Blood Pressure Location Left Arm 09/09/25 19:00 Pulse Ox 98 09/10/25 06:00 Oxygen Delivery Method Mechanical Ventilator 09/10/25 06:00 Fraction of Inspired Oxygen (FIO2) 50 09/10/25 06:00 I&O: I&O Last 24 Hours 09/09/25 09/09/25 09/10/25 11:59 23:59 10:59 Intake Total 6016.94 / 6194.24 6479.70 / 6479.70 Output Total 475 / 475 Balance 6016.94 / 6194.24 6004.70 / 6004.70 I&O: Total Stay 09/09/25 09:56 thru 09/10/25 06:47 Intake Total 22618.64 Output Total 475 Balance 63428.64 Current Meds Ordered / Administered: Current meds ordered / Administered Generic Name Dose Route Start Last Admin Trade Name Freq PRN Reason Stop Dose Admin Albuterol Sulfate 2.5 mg 09/09/25 16:42 Albuterol 2.5 Mg/3 Ml Vial.Neb. INHALATION Q2H PRN PRN SOB &/OR WHEEZING Chlorhexidine Gluconate 15 ml 09/09/25 22:00 09/09/25 23:32 Chlorhexidine 15 Ml PO 15 ml BID BINA Administration Cinacalcet 30 mg 09/10/25 10:00 Cinacalcet Hcl 30 Mg Tablet PO SUMOTUWETHFR BINA Hydrocortisone Sodium Succinate 50 mg 09/10/25 00:00 09/10/25 04:58 Hydrocortisone Sod Succinate 100 Mg/2 Ml Vial IV 50 mg Q6 BINA Administration Fentanyl 100 mls @ 2.5 mls/hr 09/09/25 13:00 09/10/25 06:00 CONT INF 75 mcg/hr UD BINA 7.5 mls/hr Protocol Titration 25 MCG/HR Vasopressin 20 units/ Sodium 25 mls @ 3 mls/hr 09/09/25 14:55 09/10/25 01:30 EST Chloride CONT INF 0.04 units/min .[id number] BINA 3 mls/hr 0.04 UNITS/MIN Administration Piperacillin Sod/Tazobactam 50 mls @ 12.5 mls/hr 09/09/25 22:00 09/10/25 05:13 Sod 3.375 gm/ Sodium Chloride IV Infused Q12 BINA Infusion Vancomycin IV-PHARMACY TO DOSE 500 mls @ 250 mls/hr 09/09/25 16:42 1 each/ Sodium Chloride IV X1 PRN Rx to Dose Protocol Pantoprazole Sodium 80 mg/ 100 mls @ 10 mls/hr 09/09/25 17:00 09/10/25 04:50 Sodium Chloride CONT INF 09/12/25 17:01 10 mls/hr Q10H BINA Administration Sodium Bicarbonate 150 meq/ 1,150 mls @ 100 mls/hr 09/09/25 17:15 09/10/25 04:43 Dextrose IV 100 mls/hr .[id number] BINA Administration Norepinephrine Bitartrate 8 mg 250 mls @ 9.375 mls/hr 09/09/25 17:25 09/10/25 06:00 / Sodium Chloride IV 30 mcg/min .[id number] BINA 56.3 mls/hr Protocol Titration 5 MCG/MIN Sodium Chloride 250 mls @ 15 mls/hr 09/09/25 17:52 IV .[id number] PRN Saline Flush Sodium Chloride 250 mls @ 15 mls/hr 09/09/25 17:52 IV .[id number] PRN Additional IVPB Infusion Phenylephrine HCl 10 mg/ 250 mls @ 15 mls/hr 09/09/25 18:10 09/10/25 06:47 Sodium Chloride CONT INF 160 mcg/min .[id number] BINA 240 mls/hr Protocol Administration 10 MCG/MIN Epinephrine HCl 1 mg/ Sodium 251 mls @ 86.595 mls/hr 09/09/25 21:45 09/10/25 06:40 Chloride CONT INF 0.3 mcg/kg/min .Q2H54M BINA 259.8 mls/hr Protocol Administration 0.1 MCG/KG/MIN Amiodarone HCl 360 mg/ 200 mls @ 16.667 mls/hr 09/10/25 05:00 09/10/25 05:01 Dextrose CONT INF 09/10/25 22:59 Not Given .Q12H BINA 0.5 MG/MIN Lamotrigine 200 mg 09/10/25 10:00 Lamotrigine 100 Mg Tablet NG DAILY BINA Methimazole 5 mg 09/11/25 10:00 Methimazole 5 Mg Tablet NG MOTUWETHFR [facility] Ondansetron HCl 4 mg 09/09/25 16:42 Ondansetron 4 Mg/2 Ml Vial IV Q8H PRN PRN NAUSEA/VOMITING Sodium Chloride 10 - 40 ml 09/09/25 17:52 09/10/25 05:01 0.9% Saline Lock 10 Ml Syringe IV 40 ml UD PRN Administration SALINE FLUSH Vancomycin Protocol 1 lab 09/11/25 05:00 Vancomycin Trough/Random Due MC 09/11/25 07:00 DAILY [facility] Lab / Micro Data 09/10/25 11:25 09/10/25 11:25 Labs: Laboratory Results - last 24 hr 09/09/25 10:46: Urine Color Yellow, Urine Clarity Sl. Cloudy, Urine pH 6.0, Ur Specific [place] 1.015, Urine Protein 100 H, Urine Glucose (UA) Normal, Urine Ketones Negative, Urine Occult Blood 10 H, Urine Nitrite Negative, Urine Bilirubin Negative, Urine Urobilinogen 1 H, Ur Leukocyte Esterase 500 H, Urine RBC 0 SEEN, Urine WBC 5-10 SEEN, Ur Squamous Epith Cells 0 SEEN, Ur Renal Epithelial Cell 0-5 SEEN, Urine Bacteria RARE, Urine Mucus 0 SEEN, Urine Yeast RARE 09/09/25 10:53: POC Glucose 120 H 09/09/25 11:35: WBC 27.5 H, RBC 1.78 L, Hgb 5.3 L*, Hct 18.0 L, MCV 101.1 H, MCH 29.8, MCHC 29.4 L, RDW Std Deviation 54.6 H, RDW Coeff of Lee 15.4 H, Plt Count 452 H, MPV 9.3, Immature Gran % (Auto) 1.100 H, Neut % (Auto) 90.8 H, Lymph % (Auto) 1.8 L, [place] % (Auto) 6.1, Eos % (Auto) 0.0, Baso % (Auto) 0.2, Absolute Neuts (auto) 25.0 H, Absolute Lymphs (auto) 0.49 L, Nucleated RBC % 0.1, PT 16.3 H, INR 1.3, APTT 22.8 L, Sodium 140, Potassium 5.9 H, Chloride 97 L, Carbon Dioxide 17.7 L, Anion Gap 25 H, BUN 119 H*, Creatinine 3.88 H, Estim Creat Clear Calc 11.10 L, Est GFR (MDRD) Non-Af 11 L, BUN/Creatinine Ratio 30.7 H, Glucose 95, Lactic Acid 10.0 H*, Calcium 9.5, Magnesium 3.8 H, Total Bilirubin 0.32, AST 39 H, ALT 27, Alkaline Phosphatase 71, Troponin T High Sens 52 H, Total Protein 5.6 L, Albumin 2.9 L, Globulin 2.7, Albumin/Globulin Ratio 1.1, Lipase 36, TSH 0.783, Blood Type B POSITIVE, Antibody Screen NEGATIVE, Crossmatch See Detail 09/09/25 11:35: Crossmatch See Detail 09/09/25 14:06: Troponin T Hi Sens 2 Hr 52 H 09/09/25 14:34: Lactic Acid 6.4 H* 09/09/25 15:11: POC Glucose 79 09/09/25 15:37: Troponin T Hi Sens 4Hr 47 H 09/09/25 18:10: Lactic Acid 6.2 H* 09/09/25 18:40: Hgb 10.5 L, Hct 33.7 L 09/09/25 22:00: Lactic Acid 3.2 H* 09/09/25 23:01: WBC 15.8 H, RBC 3.03 L, Hgb 9.6 L, Hct 28.9 L, MCV 95.4 D, MCH 31.7, MCHC 33.2 D, RDW Std Deviation 49.5 H, RDW Coeff of Lee 14.5, Plt Count 299, MPV 9.5, Immature Gran % (Auto) 0.600, Neut % (Auto) 88.0 H, Lymph % (Auto) 8.7 L, [place] % (Auto) 2.4, Eos % (Auto) 0.0, Baso % (Auto) 0.3, Absolute Neuts (auto) 13.9 H, Absolute Lymphs (auto) 1.38, Nucleated RBC % 2.6, Differential Comment SCANNED, PT 23.2 H, INR 2.0, APTT 32.1, Sodium 140, Potassium 6.3 H*, Chloride 105, Carbon Dioxide 19.1 L, Anion Gap 16 H, BUN 114 H*, Creatinine 3.36 H, Estim Creat Clear Calc 12.93 L, Est GFR (MDRD) Non-Af 14 L, BUN/Creatinine Ratio 33.9 H, Glucose 77, Lactic Acid 5.6 H*, Calcium 7.4 L, Phosphorus 4.1, Magnesium 3.6 H, Total Bilirubin 0.63, AST 919 H, ALT 855 H, Alkaline Phosphatase 62, Troponin T High Sens 69 H* D, Total Protein 4.2 L, Albumin 2.1 L, Globulin 2.1 L, Albumin/Globulin Ratio 1.0 09/10/25 01:15 EST: Troponin T Hi Sens 2 Hr 129 H* 09/10/25 02:00: Troponin T Hi Sens 4Hr 165 H* 09/10/25 03:36: POC Glucose 115 H 09/10/25 05:00: WBC 17.1 H, RBC 3.18 L, Hgb 9.9 L, Hct 30.7 L, MCV 96.5, MCH 31.1, MCHC 32.2, RDW Std Deviation 51.4 H, RDW Coeff of Lee 14.7 H, Plt Count 269, MPV 9.8, Immature Gran % (Auto) 1.100 H, Neut % (Auto) 88.5 H, Lymph % (Auto) 5.4 L, [place] % (Auto) 4.0, Eos % (Auto) 0.8, Baso % (Auto) 0.2, Absolute Neuts (auto) 15.1 H, Absolute Lymphs (auto) 0.93, Nucleated RBC % 1.7, Differential Comment SCANNED, Sodium 138, Potassium 5.9 H, Chloride 108, Carbon Dioxide 14.8 L, Anion Gap 15, BUN 105 H*, Creatinine 2.98 H, Estim Creat Clear Calc 15.04 L, Est GFR (MDRD) Non-Af 16 L, BUN/Creatinine Ratio 35.2 H, Glucose 130 H, Calcium 7.4 L, Total Bilirubin 0.54, AST 957 H, ALT 821 H, Alkaline Phosphatase 61, Total Protein 4.0 L, Albumin 1.9 L, Globulin 2.1 L, Albumin/Globulin Ratio 0.9 Micro: Microbiology 09/10/25 05:00 Urine Catheter - [place] Legionella Antigen - Final 09/10/25 05:00 Urine Catheter - [place] Streptococcus pneumoniae Antigen (M - Final Streptococcus pneumonia Ag 09/10/25 04:50 Nasal Secretion MRSA (PCR) - Final 09/09/25 17:35 Mucosa - Nasopharyngeal Respiratory Panel (PCR) - Final 09/09/25 10:46 Stool Stool Occult Blood (LIZ) - Final ABG Data ABG results: ABG 09/09/25 09/09/25 09/09/25 12:54 13:58 17:28 Specimen Type ART ART TROY Sample Site R Radial R Radial L Radial pH 7.16 L* 7.15 L* Bicarbonate Actual 15.1 L 15.3 L Total CO2 16 17 Base Excess -14 L -14 L O2 Saturation 94 90 L O2 % 50.0 50.0 50.0 ABG pCO2 42.5 44.4 ABG pO2 91 74 L Gaudencio Test Positive Positive VBG pH 7.11 L* VBG pO2 34 VBG HCO3 14 L VBG Total CO2 15 L VBG O2 Sat (Calc) 47 L VBG Base Excess -16 L POC Mix VBG pCO2 Pt Tmp 42.6 Respiration Rate 14 14 14 O2 Delivery Device Adult Vent Adult Vent Adult Vent Vent Mode AC AC Tidal Volume 450.0 450.0 450.0 POC PEEP 5 5 5 Crit Call To/Read Back Yes Yes Yes Blood Gas Notified Whom audrey valadez Blood Gas Notified Time 12:56:25 13:59:42 17:31:23 09/09/25 09/10/25 22:09 03:11 Specimen Type TROY TROY Sample Site Not entered Not entered pH Bicarbonate Actual Total CO2 Base Excess O2 Saturation O2 % 50.0 50.0 ABG pCO2 ABG pO2 Gaudencio Test VBG pH 7.41 7.30 L VBG pO2 34 89 H VBG HCO3 16 L 12 L VBG Total CO2 16 L 13 L VBG O2 Sat (Calc) 67 96 H VBG Base Excess -9 L -14 L POC Mix VBG pCO2 Pt Tmp 24.7 L 24.6 L Respiration Rate 34 16 O2 Delivery Device AeroMask Adult Vent Vent Mode Tidal Volume 450.0 450.0 POC PEEP 5 5 Crit Call To/Read Back Blood Gas Notified Whom Blood Gas Notified Time Imaging Radiology Impression Brain CT 09/09/25 10:10 IMPRESSION: No acute intracranial hemorrhage or mass effect. Senescent and small-vessel ischemic change as detailed above. I recommend MRI with diffusion-weighted imaging if clinically indicated. I discussed these findings with Tyra Wheeler by telephone at 10:28 EST on 09/09/2025. Reading Location: [facility] Abdomen/Pelvis CT 09/09/25 10:12 IMPRESSION: Marked distention of colon and the stomach as well as numerous loops of small bowel which are filled with fluid. There is a large amount of rectal stool. This may reflect fecal impaction causing obstruction with proximal bowel dilatation. Surgical and/or GI consultation is recommended. There is a percutaneous gastrostomy tube which is not in the stomach. This likely needs to be replaced and/or repositioned. Please note that there was significant fluid noted in the esophagus on the CTA of the neck. This was discussed with the provider by telephone and she stated that a nasogastric tube would be placed. Patchy nodularity at the lung bases which has an inflammatory/infectious appearance. Aspiration could give this appearance and would correlate with the above mentioned findings. Additional findings as above. Reading Location: [facility] Chest CTA 09/09/25 10:12 IMPRESSION: No pulmonary embolus noted. Tree-in-bud opacities generally located dependently in both lungs, most pronounced in the right lower lobe. This suggests inflammatory/infectious process and can typically be seen with chronic aspiration. Esophageal fluid, stent, and additional findings as detailed above. Please see the abdominal pelvis CT report for details on the abdomen. Reading Location: [facility] Head/Neck CTA 09/09/25 10:12 IMPRESSION: No significant arterial vascular abnormality. There is significant debris and/or soft tissue in the region of the esophageal stent, of which only the proximal portion is visualized. This could be an aspiration risk. I spoke to the referring clinical service, Tyra Wheeler, about these findings at approximately 11:20 a.m. on 09/09/2025. Additional findings as above. Reading [facility] Chest X-Ray 09/09/25 13:15 IMPRESSION: 1. Endotracheal tube in satisfactory position. 2. Nasogastric tube running parallel and left lateral to the esophageal stent. Review of recent CT shows that the stent at the level of the thoracic inlet shows slight deviation to the right. After withdrawal of the nasogastric tube, consider replacing the tube while the patient is right side down to encourage passage of the nasogastric tube into the lumen of the stent. 3. Satisfactory position of the right internal jugular line 4. Acinar opacities bilaterally from aspiration. Aspiration pneumonia should be considered. 5. Partially imaged gas and fluid-filled, distended stomach. Reading Location: [id number] Chest X-Ray 09/09/25 16:27 IMPRESSION: 1. NG tube tip in the distal esophagus. Advancement of approximately 15.0 cm is suggested for better positioning. 2. Small lung opacities bilaterally, likely infectious in etiology. Reading Location: [id number] Assessment and Plan . Assessment and plan: Critical Care Time: The entirety of this encounter was done via Telemedicine Subjective Subjective Pt seen and examined. Overnight cardiac arrest with 1 round CPR/1 Epi/2 amps HCO3 in the setting of progressive shock/acidosis. Black stool from OGT/ETT. No rectal tube output. ~175 cc UOP this AM. Fent @ 75 Nepi @ 30 Jem @ 180 Vaso @ 0.04 Epi @ 0.2 Amio 0.5 HCO3 gtt @ 100 PPI gtt 24 450 5 50 PE: General: acute on chronically ill female, +MV HEENT: anicteric Sclera; + ETT, nl nose; supple neck, no masses Cardiovascular: tachy; No murmurs, rubs, gallops; no displaced PMI Respiratory: clear anterior breath sounds, diminished bases; no crackles, wheezes, or rhonchi Abdominal: marked distention but overall improved; hypoBS x 4; +Saw tube Extremities: Warm; No clubbing, cyanosis; capillary refill > 2 sec Neurological: sedated/altered but spont moving all extremities A/P: #Acute respiratory failure #Septic shock #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 #CITLALY on CKD #Hyperkalemia #Lactic acidosis #NSTEMI- likely demand mismatch #AF RVR #SP cardiac arrest #Esophageal stricture sp stent #Large sliding hiatal hernia #Misplaced gastrostomy/Saw tube #Acute on chronic anemia #GIB #Massive gastric distention #Colonic distention with large stool burden #Acute toxic/metabolic encephalopathy -Cont MV; settings reviewed/adjusted to maximize Ve; cont sedation/analgesia -Cont NEpi/vaso/Jem/Epi, added dopamine as 5th and last pressor support if needed; place arterial line if possible; on stress dose steroids; trend lactate -Cont emp IV Abx- vanc/Zosyn, sp one time micafungin overnight; F/U Cx -Cont HCO3 gtt; cont strict I/Os; would consult nephrology given consideration for CRRT to help with metabolic demands and electrolyte abnormalities -Continuing to receive K-lowering treatments; cont to monitor on repeat labs -sp urgent GI consult & endoscopic evaluation with findings noted and treatment of bleeding 2* to severe esophagitis as well as proper placement of NGT; gastrostomy tube in good position; surgery aware but she is a very poor surgical candidate at this time and needs maximal support above to prevent complications; may have component of ischemic bowel but cannot A/C due to concurrent anemia/suspected blood loss; cont PPI gtt -SP 2U PRBC; monitor blood counts NPO SCDs, PPI gtt Very poor prognosis Full code 09/10: Multidisciplinary discussion with myself, GI & hospitalist present with the patient's who is at bedside; we discussed the patient's presentation, overnight events, current condition, treatment plan, prognosis & code status; the patient's verbalized full understanding and at this time wants to continue maximal life sustaining interventions; all questions were answered CCT: 50 min The entirety of this encounter was completed via telemedicine.
--- NOTE | 2025-09-10 07:45 | RAD_ITS ---
PROCEDURE: RAD/Chest 1 View (Portable)
--- NOTE | 2025-09-10 08:19 | PN.HOSP_ITS ---
Reason for Visit
--- NOTE | 2025-09-10 08:19 | PCM.PN.HOSP ---
Reason for Visit Chief Complaint: Generalized weakness and vomiting Subjective Subjective Pt coded overnight and achieved ROSC, see CODE BLUE note. Discussed with golf cart assembler, GI, and family at bedside regarding prognosis. Patient has had escalating requirements for pressors Objective Data Objective Data Vital Signs: Vital Signs Temp Pulse Resp BP Pulse Ox O2 Del Method FiO2 100.6 F H 96 24 H 123/44 H 96 Mechanical Ventilator 50 09/10/25 08:00 09/10/25 08:00 09/10/25 08:00 09/10/25 08:00 09/10/25 08:00 09/10/25 08:00 09/10/25 08:00 Oxygen Delivery Method Mechanical Ventilator Weight: 65.7 kg Body Mass Index (BMI) 23.3 Intake & Output: Intake and Output for Last 24 Hours 09/08/25 09/09/25 09/10/25 23:59 23:59 22:59 Intake Total 6016.94 / 6194.24 7678.60 / 7678.60 Output Total 475 / 475 Balance 6016.94 / 6194.24 7203.60 / 7203.60 Lab / Micro Data 09/10/25 11:25 09/10/25 11:25 Labs: Laboratory Results - last 24 hr 09/09/25 10:46: Urine Color Yellow, Urine Clarity Sl. Cloudy, Urine pH 6.0, Ur Specific [place] 1.015, Urine Protein 100 H, Urine Glucose (UA) Normal, Urine Ketones Negative, Urine Occult Blood 10 H, Urine Nitrite Negative, Urine Bilirubin Negative, Urine Urobilinogen 1 H, Ur Leukocyte Esterase 500 H, Urine RBC 0 SEEN, Urine WBC 5-10 SEEN, Ur Squamous Epith Cells 0 SEEN, Ur Renal Epithelial Cell 0-5 SEEN, Urine Bacteria RARE, Urine Mucus 0 SEEN, Urine Yeast RARE 09/09/25 10:53: POC Glucose 120 H 09/09/25 11:35: WBC 27.5 H, RBC 1.78 L, Hgb 5.3 L*, Hct 18.0 L, MCV 101.1 H, MCH 29.8, MCHC 29.4 L, RDW Std Deviation 54.6 H, RDW Coeff of Lee 15.4 H, Plt Count 452 H, MPV 9.3, Immature Gran % (Auto) 1.100 H, Neut % (Auto) 90.8 H, Lymph % (Auto) 1.8 L, [place] % (Auto) 6.1, Eos % (Auto) 0.0, Baso % (Auto) 0.2, Absolute Neuts (auto) 25.0 H, Absolute Lymphs (auto) 0.49 L, Nucleated RBC % 0.1, PT 16.3 H, INR 1.3, APTT 22.8 L, Sodium 140, Potassium 5.9 H, Chloride 97 L, Carbon Dioxide 17.7 L, Anion Gap 25 H, BUN 119 H*, Creatinine 3.88 H, Estim Creat Clear Calc 11.10 L, Est GFR (MDRD) Non-Af 11 L, BUN/Creatinine Ratio 30.7 H, Glucose 95, Lactic Acid 10.0 H*, Calcium 9.5, Magnesium 3.8 H, Total Bilirubin 0.32, AST 39 H, ALT 27, Alkaline Phosphatase 71, Troponin T High Sens 52 H, Total Protein 5.6 L, Albumin 2.9 L, Globulin 2.7, Albumin/Globulin Ratio 1.1, Lipase 36, TSH 0.783, Blood Type B POSITIVE, Antibody Screen NEGATIVE, Crossmatch See Detail 09/09/25 11:35: Crossmatch See Detail 09/09/25 14:06: Troponin T Hi Sens 2 Hr 52 H 09/09/25 14:34: Lactic Acid 6.4 H* 09/09/25 15:11: POC Glucose 79 09/09/25 15:37: Troponin T Hi Sens 4Hr 47 H 09/09/25 18:10: Lactic Acid 6.2 H* 09/09/25 18:40: Hgb 10.5 L, Hct 33.7 L 09/09/25 22:00: Lactic Acid 3.2 H* 09/09/25 23:01: WBC 15.8 H, RBC 3.03 L, Hgb 9.6 L, Hct 28.9 L, MCV 95.4 D, MCH 31.7, MCHC 33.2 D, RDW Std Deviation 49.5 H, RDW Coeff of Lee 14.5, Plt Count 299, MPV 9.5, Immature Gran % (Auto) 0.600, Neut % (Auto) 88.0 H, Lymph % (Auto) 8.7 L, [place] % (Auto) 2.4, Eos % (Auto) 0.0, Baso % (Auto) 0.3, Absolute Neuts (auto) 13.9 H, Absolute Lymphs (auto) 1.38, Nucleated RBC % 2.6, Differential Comment SCANNED, PT 23.2 H, INR 2.0, APTT 32.1, Sodium 140, Potassium 6.3 H*, Chloride 105, Carbon Dioxide 19.1 L, Anion Gap 16 H, BUN 114 H*, Creatinine 3.36 H, Estim Creat Clear Calc 12.93 L, Est GFR (MDRD) Non-Af 14 L, BUN/Creatinine Ratio 33.9 H, Glucose 77, Lactic Acid 5.6 H*, Calcium 7.4 L, Phosphorus 4.1, Magnesium 3.6 H, Total Bilirubin 0.63, AST 919 H, ALT 855 H, Alkaline Phosphatase 62, Troponin T High Sens 69 H* D, Total Protein 4.2 L, Albumin 2.1 L, Globulin 2.1 L, Albumin/Globulin Ratio 1.0 09/10/25 01:15 EST: Troponin T Hi Sens 2 Hr 129 H* 09/10/25 02:00: Troponin T Hi Sens 4Hr 165 H* 09/10/25 03:36: POC Glucose 115 H 09/10/25 05:00: WBC 17.1 H, RBC 3.18 L, Hgb 9.9 L, Hct 30.7 L, MCV 96.5, MCH 31.1, MCHC 32.2, RDW Std Deviation 51.4 H, RDW Coeff of Lee 14.7 H, Plt Count 269, MPV 9.8, Immature Gran % (Auto) 1.100 H, Neut % (Auto) 88.5 H, Lymph % (Auto) 5.4 L, [place] % (Auto) 4.0, Eos % (Auto) 0.8, Baso % (Auto) 0.2, Absolute Neuts (auto) 15.1 H, Absolute Lymphs (auto) 0.93, Nucleated RBC % 1.7, Differential Comment SCANNED, Sodium 138, Potassium 5.9 H, Chloride 108, Carbon Dioxide 14.8 L, Anion Gap 15, BUN 105 H*, Creatinine 2.98 H, Estim Creat Clear Calc 15.04 L, Est GFR (MDRD) Non-Af 16 L, BUN/Creatinine Ratio 35.2 H, Glucose 130 H, Calcium 7.4 L, Total Bilirubin 0.54, AST 957 H, ALT 821 H, Alkaline Phosphatase 61, Total Protein 4.0 L, Albumin 1.9 L, Globulin 2.1 L, Albumin/Globulin Ratio 0.9 Micro: Microbiology 09/10/25 05:00 Urine Catheter - [place] Legionella Antigen - Final 09/10/25 05:00 Urine Catheter - [place] Streptococcus pneumoniae Antigen (M - Final Streptococcus pneumonia Ag 09/10/25 04:50 Nasal Secretion MRSA (PCR) - Final 09/09/25 17:35 Mucosa - Nasopharyngeal Respiratory Panel (PCR) - Final 09/09/25 10:46 Stool Stool Occult Blood (LIZ) - Final ABG Data ABG results: ABG 09/09/25 09/09/25 09/09/25 12:54 13:58 17:28 Specimen Type ART ART TROY Sample Site R Radial R Radial L Radial pH 7.16 L* 7.15 L* Bicarbonate Actual 15.1 L 15.3 L Total CO2 16 17 Base Excess -14 L -14 L O2 Saturation 94 90 L O2 % 50.0 50.0 50.0 ABG pCO2 42.5 44.4 ABG pO2 91 74 L Gaudencio Test Positive Positive VBG pH 7.11 L* VBG pO2 34 VBG HCO3 14 L VBG Total CO2 15 L VBG O2 Sat (Calc) 47 L VBG Base Excess -16 L POC Mix VBG pCO2 Pt Tmp 42.6 Respiration Rate 14 14 14 O2 Delivery Device Adult Vent Adult Vent Adult Vent Vent Mode AC AC Tidal Volume 450.0 450.0 450.0 POC PEEP 5 5 5 Crit Call To/Read Back Yes Yes Yes Blood Gas Notified Whom audrey wheeler [email or web address] Blood Gas Notified Time 12:56:25 13:59:42 17:31:23 09/09/25 09/10/25 22:09 03:11 Specimen Type TROY TROY Sample Site Not entered Not entered pH Bicarbonate Actual Total CO2 Base Excess O2 Saturation O2 % 50.0 50.0 ABG pCO2 ABG pO2 Gaudencio Test VBG pH 7.41 7.30 L VBG pO2 34 89 H VBG HCO3 16 L 12 L VBG Total CO2 16 L 13 L VBG O2 Sat (Calc) 67 96 H VBG Base Excess -9 L -14 L POC Mix VBG pCO2 Pt Tmp 24.7 L 24.6 L Respiration Rate 34 16 O2 Delivery Device AeroMask Adult Vent Vent Mode Tidal Volume 450.0 450.0 POC PEEP 5 5 Crit Call To/Read Back Blood Gas Notified Whom Blood Gas Notified Time Radiography Diagnostic Testing: Radiology Impression Brain CT 09/09/25 10:10 IMPRESSION: No acute intracranial hemorrhage or mass effect. Senescent and small-vessel ischemic change as detailed above. I recommend MRI with diffusion-weighted imaging if clinically indicated. I discussed these findings with Tyra Wheeler by telephone at 10:28 EST on 09/09/2025. Reading Location: [facility] Abdomen/Pelvis CT 09/09/25 10:12 IMPRESSION: Marked distention of colon and the stomach as well as numerous loops of small bowel which are filled with fluid. There is a large amount of rectal stool. This may reflect fecal impaction causing obstruction with proximal bowel dilatation. Surgical and/or GI consultation is recommended. There is a percutaneous gastrostomy tube which is not in the stomach. This likely needs to be replaced and/or repositioned. Please note that there was significant fluid noted in the esophagus on the CTA of the neck. This was discussed with the provider by telephone and she stated that a nasogastric tube would be placed. Patchy nodularity at the lung bases which has an inflammatory/infectious appearance. Aspiration could give this appearance and would correlate with the above mentioned findings. Additional findings as above. Reading Location: [facility] Chest CTA 09/09/25 10:12 IMPRESSION: No pulmonary embolus noted. Tree-in-bud opacities generally located dependently in both lungs, most pronounced in the right lower lobe. This suggests inflammatory/infectious process and can typically be seen with chronic aspiration. Esophageal fluid, stent, and additional findings as detailed above. Please see the abdominal pelvis CT report for details on the abdomen. Reading Location: [facility] Head/Neck CTA 09/09/25 10:12 IMPRESSION: No significant arterial vascular abnormality. There is significant debris and/or soft tissue in the region of the esophageal stent, of which only the proximal portion is visualized. This could be an aspiration risk. I spoke to the referring clinical service, Tyra Wheeler, about these findings at approximately 11:20 a.m. on 09/09/2025. Additional findings as above. Reading Location: [facility] Chest X-Ray 09/09/25 13:15 IMPRESSION: 1. Endotracheal tube in satisfactory position. 2. Nasogastric tube running parallel and left lateral to the esophageal stent. Review of recent CT shows that the stent at the level of the thoracic inlet shows slight deviation to the right. After withdrawal of the nasogastric tube, consider replacing the tube while the patient is right side down to encourage passage of the nasogastric tube into the lumen of the stent. 3. Satisfactory position of the right internal jugular line 4. Acinar opacities bilaterally from aspiration. Aspiration pneumonia should be considered. 5. Partially imaged gas and fluid-filled, distended stomach. Reading Location: [facility] Chest X-Ray 09/09/25 16:27 IMPRESSION: 1. NG tube tip in the distal esophagus. Advancement of approximately 15.0 cm is suggested for better positioning. 2. Small lung opacities bilaterally, likely infectious in etiology. Reading Location: [facility] Physical Exam Narrative General: Intubated and sedated HEENT: Atraumatic, normocephalic Eyes: Eyes closed, no spontaneous opening Neck: Supple Respiratory: Mechanically ventilated, diminished bilaterally Cardiovascular: Low-grade sinus tachycardia GI: Distended, unclear if there is tenderness as patient is sedated Extremities: No peripheral edema Musculoskeletal: Presently sedated and not moving extremities spontaneously Neuro: Unable to participate in neuro exam secondary to intubated and sedated Skin: No rashes appreciated Psych: Unable to cooperate secondary to intubated and sedated Assessment & Plan Assessment/Plan (1) Septic shock: (2) Aspiration pneumonia: (3) CITLALY (acute kidney injury): (4) Acute blood loss anemia: (5) Hyperkalemia: PLAN: Plan # Septic shock secondary to aspiration and pneumococcal pneumonia -Patient presented with a blood cell count of 27.5, CITLALY, lactic acid of 10, bicarb of 17.7 and persistent hypotension with systolic blood pressure in the 60s necessitating central line placement and Levophed -Patient also placed on vasopressin while in the ED -Patient with CT chest/abdomen/pelvis with CT chest showing suspected aspiration pneumonia -There were esophageal contents there is increased concern for aspiration -Patient received 2 L of IV fluid in the ED -Blood cultures -Sputum culture, COVID ordered, respiratory panel ordered -Urine antigens -Mucinex, I/S - Vancomycin and Zosyn given severity of patient's illness -Will check MRSA swab -Given patient's significant acidosis also starting on bicarb drip -Senior Chemist consult -09/10: Patient was up to 4 pressors overnight on stress dose steroids and did have a CODE BLUE but achieved ROSC. Pt did have urine antigen positive for pneumococcal pneumonia. Continuing broad-spectrum antibiotics and following cultures. Did ultimately have to have a fifth pressor added and has been maintaining on that at this time, overnight did receive a dose of micafungin, sputum is growing a not Jessi yeast, unclear significance however given her critical illness this has been continued. Continue supportive care # Cardiac arrest -09/10: CODE BLUE called at 1043 when nursing staff noted an irregular rhythm on monitor and EKG ordered however patient became pulseless. Patient received epinephrine and bicarb as well as amiodarone bolus and drip and achieved ROSC. Multifactorial, patient was up to 4 pressors with critical illness and was hyperkalemic on presentation and received K-lowering and cocktail but repeat BMP had yet to be redrawn. Repeat potassium was obtained after CODE BLUE and showed a potassium of 6.3, decreased to 5.9 but will work on further aggressively lowering potassium and continue to address underlying processes/patient's shock # Acute blood loss anemia secondary to bleeding esophagitis - Hemoglobin 5.3 down from 7.3 yesterday baseline appears to be about 10 - Fecal occult reported to be negative however given presentation and clinical picture with significant elevation in BUN as well as suspected patient has upper GI bleed -PPI drip -GI consult -Patient being transfused -Trend H&H -09/10: Received 2 units of packed red blood cells with improvement in hemoglobin to 10.5, patient underwent endoscopy in the ICU at bedside due to critical illness and was found to have severe erosive esophagitis with bleeding that was treated with APC, brown gastric fluid noted with no lesions in the duodenum, patient's NG tube was successfully advanced past esophageal stent as well. Hemoglobin stable this a.m., continue IV PPI # Abdominal distention -CT of the abdomen pelvis with marked distention of colon and the stomach as well as numerous loops of small bowel which are fluid-filled and large amount of rectal stool -Patient did have similar findings on previous scans been going back a couple of years ago however it is currently worsened - does note that she has been still having some stool output -Soapsuds enemas -NG placed in the ED, to be repositioned to traverse esophageal stent -Hold glycopyrrolate -09/10: NG tube advanced endoscopically passed esophageal stent into stomach, enemas as able as distention seems to be due to significant rectal stool burden and likely concomitant ileus secondary to critical illness, patient is critically ill and not a good surgical candidate nor is there a specific surgical indication at this time, cannot rule out ischemic bowel, unable to anticoagulate due to concurrent anemia and blood loss # Acute respiratory failure secondary to underlying critical illness, suspected aspiration, and pneumonia -Patient required intubation and sedation -Senior Chemist consult -Vent management -09/10: Patient remains intubated and mechanically ventilated, currently 96% on 50% FiO2, golf cart assembler following, continue broad-spectrum antibiotics # Transaminitis -09/10: Normal transaminases 09/08 that were very mildly elevated on presentation but increased significantly due to patient's shock, 957 this a.m., address underlying illness and wean pressors as able # CITLALY on CKD stage IIIb -Patient's creatinine 3.88 up from 3.21 yesterday -Appears baseline is around 2.5 -Suspect secondary to critical illness -IV fluids -Support underlying process - Low threshold for nephrology consult -09/10: Creatinine is downtrending, baseline creatinine around 2.5, 3.88 yesterday and this a.m. 2.98, continue to maximize perfusion and address underlying illnesses # Hyperkalemia - 5.9 in the ED -IV fluids -Bicarb drip -Patient received insulin -09/10: Trend BMP date received Cater lowering cocktail but repeat BMP had yet to be redrawn when patient coded, potassium afterwards was 6.3, down to 5.9, after K lowering cocktail it decreased to 5.6 and patient given more insulin and glucose. Discussed with golf cart assembler and it was recommended to consult nephrology to see if patient would be a CRRT candidate that this is unlikely, discussed with them and they discussed with family, will not pursue CRRT and is not good candidate at this time. Discussed with GI and it was recommended that Kayexalate be given and NG tube clamped for 1 hour, discussed with nursing and order entered # Elevated troponin - Troponin of 52 with repeat of 52 -Suspect that this is secondary to septic shock -09/10: Troponins initially downtrended but post CODE BLUE and ROSC they had elevated again, echocardiogram ordered # PEG tube - CT queried if percutaneous tube was in stomach -Discussed with GI, patient has endoscopy this can be corrected -Hold feeds at this time -09/10: On EGD normal-appearing PEG tube was seen under endoscopy # Esophageal stent - Has history of esophageal stent with routine exchanges -Follows with GI -09/10: Stent patent per endoscopy # History of bipolar disorder -Stable on Lamictal -09/10: Resume home medications as able #GERD - PPI drip as above -09/10: Maintain on PPI # Hyperthyroidism -Patient on methimazole -09/10: Continue methimazole as able #DVT ppx: SCDs Anabela Saavedra MD Time spent in the patient's overall evaluation,decision-making process, review of diagnostic data, adjustment of management, discussion with other providers, nursing nursing and ancillary staff involved in patient's care documentation, 90 Minutes Charges/Coding Visit Charges Inpatient E&M: 93417 [facility] Hosp L3
[2025-09-10] MEDS: PHENYLEPHRINE CONT INF ×5 (08:51→23:55)
[2025-09-10] MEDS: NORMAL SALINE 0.9% CONT INF ×11 (08:51→23:55)
[2025-09-10] MEDS: EPINEPHRINE CONT INF ×6 (09:38→22:08)
[2025-09-10] MEDS: Chlorhexidine 15 ML PO ×2 (10:03→22:34)
--- NOTE | 2025-09-10 10:30 | CPS ---
Dr. Saavedra stated to hold off on the 20mg Albuterol for Hyperkalemia.
--- NOTE | 2025-09-10 11:22 | PCM.PN.BLA ---
Progress Note 75-year-old woman admitted yesterday for acute respiratory failure secondary to likely aspiration pneumonia septic shock, GI bleed and massively distended colon underwent EGD with control of bleeding in the distal esophagus secondary to a massively pushed up stomach by colonic distention. She also underwent colonic decompression and placement of rectal tube overnight. Unfortunately she had a cardiac arrest overnight which required CPR. Currently, she is on 4 medications and adding 5 medications to provide cardiovascular support. She is still intubated and sedated. Her chest x-ray does show that the colon is less distended than previously. Family is at the bedside. Physical Exam Narrative General: Intubated and sedated HEENT: Atraumatic, normocephalic Eyes: Eyes closed, no spontaneous opening Neck: Supple Respiratory: Mechanically ventilated, diminished bilaterally Cardiovascular: Low-grade sinus tachycardia GI: Distended, enlarged distended abdomen Extremities: No peripheral edema Musculoskeletal: Presently sedated and not moving extremities spontaneously Neuro: Unable to participate in neuro exam secondary to intubated and sedated Skin: No rashes appreciated Psych: Unable to cooperate secondary to intubated and sedated Assessment & Plan Assessment/Plan (1) Colonic obstruction: (2) Acute blood loss anemia: (3) Septic shock: (4) Aspiration pneumonia: (5) Abdominal pain: (6) CITLALY (acute kidney injury): PLAN: Assessment Acute respiratory failure:?Ongoing, secondary to likely aspiration pneumonia; currently intubated and sedated. Septic shock:?Ongoing, requiring significant cardiovascular support with 5 total medications . GI bleed:?Status post EGD with successful control of bleeding. Massively distended colon:?Improved per chest x-ray after decompression and rectal tube placement, but underlying issue remains. Cardiac arrest:?Experienced overnight, etiology likely multifactorial given critical status . Clinical Status:?Critically ill, unstable, requiring maximal support . Plan Continue current management for septic shock, including titration of pressors as needed for adequate perfusion (currently on 4, adding a 5th agent) . Continue mechanical ventilation and sedation; monitor respiratory status closely . Monitor GI status; continue rectal tube management; repeat imaging as indicated to assess colonic re-distention . Continue close monitoring in the ICU setting. Family at bedside: Continue to provide updates to the family regarding the patient's critical condition, recent cardiac arrest, and poor prognosis? Visit Charges Inpatient E&M: 42197 [facility] L3
[2025-09-10 11:37] LABS: Hematocrit 30.5 % (37-47); Hemoglobin 9.9 g/dL (12.0-15.0)
[2025-09-10 11:55] LABS: Anion Gap 15 (5-15); BUN 94 mg/dL (4-19); BUN/Creat Ratio 34.3 RATIO (10-20); Calcium,Total 6.6 mg/dL (7.6-11.0); Carbon Dioxide 13.4 mmol/L (21.0-32.0); Chloride 108 mmol/L (98-108); Estimated Creatinine Clearance 16.29 ml/min (50-250); Glucose 239 mg/dL (70-99); Potassium 5.6 mmol/L (3.3-5.1)
--- NOTE | 2025-09-10 12:10 | NURSING ---
Radha from [facility], organ procurement called this RN back and stated that at this time patient is too unstable and not a candidate. However if patient would stabilize and able to go to surgery please notify [facility]. If patient does not and family withdraws care, call [facility] with cardiac per protocol.
--- NOTE | 2025-09-10 14:35 | PCM.CONS.R ---
Assessment & Plan Assessment/Plan (1) CITLALY (acute kidney injury): PLAN: History of CKD stage IIIb/IV. Baseline creatinine is around 2-2.2 although she fluctuates widely due to volume status. History of secondary/tertiary hyperparathyroidism, on Sensipar Now admitted with severe septic shock. Pneumonia. Lactic acidosis. She is currently on multiple pressors. Hyperkalemia is likely related to acidosis. On bicarbonate drip. On maximum supportive treatment at this time. Due to low blood pressure despite being on multiple pressors, I doubt she will tolerate CRRT. This was communicated with her at bedside. Discussed with primary service. HPI Consult Data Date of Consult: 09/10/25 HPI Narrative Reason for Consultation: CITLALY HPI Narrative: SIMONA HERNANDEZ, is a 75 F who presents To the hospital with vomiting, shortness of breath. Nephrology on consultation in view of acute renal failure. She is well-known to me from office. 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 She has struggled with eating food, had dysphagia requiring esophageal stent. At some point she had a PEG tube placed for nutrition but recently she has been eating. Ongoing events include Pneumonia, aspiration, urine strep pneumonia antigen positive Septic shock, severe, multiple pressors Lactic acidosis, presumably from septic shock Acute on chronic renal failure Imaging study shows pneumonia, significant stool burden in the colon, large amounts of liquids in the stomach which was aspirated with NG tube, percutaneous gastrostomy tube not in position, She is currently intubated, most of the history is obtained from chart and discussion with physician. [facility] Medical History Aspiration pneumonia Cough History of pain when walking History of Clostridium difficile infection Arthritis History of renal disease History of echocardiogram History of Mohs micrographic surgery for skin cancer Acute uremia Anemia History of jejunostomy tube placement Alzheimer disease Iron deficiency anemia Dysphagia History of gastrostomy tube placement Acute renal insufficiency Gastric paresis Anemia, unspecified Stenosis of esophagus Erosive esophagitis UTI (urinary tract infection) Gram-negative bacteremia Severe malnutrition Severe malnutrition Severe dehydration Wears glasses Post-menopausal Bipolar disorder Diabetes insipidus Thyroid disease Bladder disease Back pain Dietary restriction History of hiatal hernia Gastric reflux Former smoker Generalized weakness Unsteady gait Gastroparesis Nondiabetic gastroparesis Dysphagia GI bleed Tardive [place] History of herpes zoster Hypertension Delirium due to multiple etiologies Hypercalcemia Hypernatremia Secondary hyperparathyroidism of renal origin Bipolar disorder with moderate depression Pulmonary emboli Anemia Anxiety Difficulty chewing Bipolar disorder Home Medications ?Medication ?Instructions ?Recorded ?Last Taken ?Type methimazole 5 mg tablet 5 mg feeding tube MOTUWETHFR 10/04/20 01/14/23 History Thyroid denosumab 60 mg/mL subcutaneous 60 mg subcut .Q6MO osteoporosis 09/05/22 08/27/22 History syringe (Prolia) polyethylene glycol 3350 17 17 g PO DAILY PRN constipation 09/05/22 09/05/22 History gram/dose oral powder (Miralax) lamotrigine 100 mg tablet 200 mg feeding tube DAILY Bipolar 03/19/23 07/15/24 History Disorder memantine 10 mg tablet 10 mg feeding tube DAILY Check 04/20/23 07/15/24 History with primary doctor lorazepam 2 mg tablet 2 mg PO 4X/DAY PRN anxiety 06/11/23 08/02/25 History estradiol 0.01% (0.1 mg/gram) 1 applic vaginal .3 TIMES WEEKLY 04/06/24 Unknown History vaginal cream ferrous sulfate 325 mg (65 mg 325 mg PO DAILY SUPPLEMENT 04/06/24 Unknown History iron) tablet nutritional supplements 0.06 948 ml feeding tube QHS 07/04/24 Unknown History gram-1.2 kcal/mL oral liquid (Osmolite 1.2 Mp) acetaminophen 650 mg/20.3 mL oral 650 mg (20.3 mL) G-tube Q6H PRN 07/10/24 Unknown Rx solution PRN Pain 1-10 Or Fever #0 mL cinacalcet 30 mg tablet 30 mg PO SUMOTUWETHFR 07/13/24 Unknown History cholecalciferol (vitamin D3) 50 100 mcg (2 x 50 mcg (2,000 unit)) 01/04/25 Unknown Rx mcg (2,000 unit) capsule PO DAILY #60 caps scopolamine base 1 mg over 3 days 1 patch transdermal Q3D #10 ea 04/26/25 08/02/25 Rx transdermal patch lansoprazole 30 mg capsule,delayed 30 mg PO BID #60 caps 05/05/25 08/02/25 Rx release oxybutynin chloride 15 mg 15 mg PO DAILY Overactive bladder 06/12/25 08/01/25 Rx tablet,extended release 24 hr #90 tabs docusate sodium 100 mg capsule 100 mg PO DAILY 07/27/25 Unknown History (Colace) glycopyrrolate 2 mg tablet 2 mg feeding tube BID secretions 07/27/25 Unknown History ondansetron HCl 4 mg tablet 4 - 8 mg feeding tube Q6H PRN PRN 07/27/25 Unknown History for nausea/vomiting amoxicillin 875 mg-potassium 1 tab PO Q12H 14 days #28 tabs 09/06/25 Unknown Rx clavulanate 125 mg tablet neomycin-bacitracn Zn-polymyx 3.5 1 applic topical TID #30 grams 09/06/25 Unknown Rx mg-400 unit-5,000 unit/gram top oint Allergy/AdvReac Type Severity Reaction Status Date / Time No Known Allergies Allergy Verified 09/09/25 10:23 Family History Father CVA (cerebral vascular accident) Sister CVA (cerebral vascular accident) Cancer Surgical History History of esophagogastroduodenoscopy (EGD) History of esophagogastroduodenoscopy (EGD) Hx of esophagogastroduodenoscopy Social History household members: spouse housing: house Smoking Status: Former smoker Tobacco: How many years used: 4 second hand exposure: Yes alcohol intake: never substance use type: does not use what type of physical activity do you participate in: other details: OT PT - [facility] [place] frequency: daily valentina/sikhism: Caodaism seatbelt use: always additional social history: Ambulates at baseline without assistive device ROS Review of Systems ROS Unobtainable: due to endotracheal tube Physical Exam Narrative no JVD s1s2 no murmurs lungs clear abdomen soft no organomegaly no edema no cyanosis bhardwaj + Lab / Micro Data 09/10/25 11:25 09/10/25 11:25 Labs: Laboratory Results - last 24 hr 09/09/25 11:35: Crossmatch See Detail 09/09/25 11:35: Crossmatch See Detail 09/09/25 15:11: POC Glucose 79 09/09/25 15:37: Troponin T Hi Sens 4Hr 47 H 09/09/25 18:10: Lactic Acid 6.2 H* 09/09/25 18:40: Hgb 10.5 L, Hct 33.7 L 09/09/25 22:00: Lactic Acid 3.2 H* 09/09/25 23:01: WBC 15.8 H, RBC 3.03 L, Hgb 9.6 L, Hct 28.9 L, MCV 95.4 D, MCH 31.7, MCHC 33.2 D, RDW Std Deviation 49.5 H, RDW Coeff of Lee 14.5, Plt Count 299, MPV 9.5, Immature Gran % (Auto) 0.600, Neut % (Auto) 88.0 H, Lymph % (Auto) 8.7 L, [place] % (Auto) 2.4, Eos % (Auto) 0.0, Baso % (Auto) 0.3, Absolute Neuts (auto) 13.9 H, Absolute Lymphs (auto) 1.38, Nucleated RBC % 2.6, Differential Comment SCANNED, PT 23.2 H, INR 2.0, APTT 32.1, Sodium 140, Potassium 6.3 H*, Chloride 105, Carbon Dioxide 19.1 L, Anion Gap 16 H, BUN 114 H*, Creatinine 3.36 H, Estim Creat Clear Calc 12.93 L, Est GFR (MDRD) Non-Af 14 L, BUN/Creatinine Ratio 33.9 H, Glucose 77, Lactic Acid 5.6 H*, Calcium 7.4 L, Phosphorus 4.1, Magnesium 3.6 H, Total Bilirubin 0.63, AST 919 H, ALT 855 H, Alkaline Phosphatase 62, Troponin T High Sens 69 H* D, Total Protein 4.2 L, Albumin 2.1 L, Globulin 2.1 L, Albumin/Globulin Ratio 1.0 09/10/25 01:15 EST: Troponin T Hi Sens 2 Hr 129 H* 09/10/25 02:00: Troponin T Hi Sens 4Hr 165 H* 09/10/25 03:36: POC Glucose 115 H 09/10/25 05:00: WBC 17.1 H, RBC 3.18 L, Hgb 9.9 L, Hct 30.7 L, MCV 96.5, MCH 31.1, MCHC 32.2, RDW Std Deviation 51.4 H, RDW Coeff of Lee 14.7 H, Plt Count 269, MPV 9.8, Immature Gran % (Auto) 1.100 H, Neut % (Auto) 88.5 H, Lymph % (Auto) 5.4 L, [place] % (Auto) 4.0, Eos % (Auto) 0.8, Baso % (Auto) 0.2, Absolute Neuts (auto) 15.1 H, Absolute Lymphs (auto) 0.93, Nucleated RBC % 1.7, Differential Comment SCANNED, Sodium 138, Potassium 5.9 H, Chloride 108, Carbon Dioxide 14.8 L, Anion Gap 15, BUN 105 H*, Creatinine 2.98 H, Estim Creat Clear Calc 15.04 L, Est GFR (MDRD) Non-Af 16 L, BUN/Creatinine Ratio 35.2 H, Glucose 130 H, Calcium 7.4 L, Total Bilirubin 0.54, AST 957 H, ALT 821 H, Alkaline Phosphatase 61, Total Protein 4.0 L, Albumin 1.9 L, Globulin 2.1 L, Albumin/Globulin Ratio 0.9 09/10/25 10:00: POC Glucose 101 09/10/25 10:44: POC Glucose 162 H 09/10/25 11:25: Hgb 9.9 L, Hct 30.5 L, Sodium 136, Potassium 5.6 H, Chloride 108, Carbon Dioxide 13.4 L, Anion Gap 15, BUN 94 H, Creatinine 2.75 H, Estim Creat Clear Calc 16.29 L, Est GFR (MDRD) Non-Af 17 L, BUN/Creatinine Ratio 34.3 H, Glucose 239 H, Lactic Acid 5.7 H*, Calcium 6.6 L Micro: Microbiology 09/09/25 12:42 Sputum, Induced/Lukens Gram Stain - Final 09/09/25 12:42 Sputum, Induced/Lukens Respiratory Culture - Preliminary Yeast Like Organism 09/09/25 08:30 Nasal Secretion SARS-CoV-2 Antigen (Rapid) - Final 09/10/25 05:00 Urine Catheter - Bhardwaj Legionella Antigen - Final 09/10/25 05:00 Urine Catheter - Bhardwaj Streptococcus pneumoniae Antigen (M - Final Streptococcus pneumonia Ag 09/10/25 04:50 Nasal Secretion MRSA (PCR) - Final 09/09/25 17:35 Mucosa - Nasopharyngeal Respiratory Panel (PCR) - Final ABG Data ABG results: ABG 09/09/25 09/09/25 09/10/25 17:28 22:09 03:11 Specimen Type TROY TROY TROY Sample Site L Radial Not entered Not entered O2 % 50.0 50.0 50.0 VBG pH 7.11 L* 7.41 7.30 L VBG pO2 34 34 89 H VBG HCO3 14 L 16 L 12 L VBG Total CO2 15 L 16 L 13 L VBG O2 Sat (Calc) 47 L 67 96 H VBG Base Excess -16 L -9 L -14 L POC Mix VBG pCO2 Pt Tmp 42.6 24.7 L 24.6 L Respiration Rate 14 34 16 O2 Delivery Device Adult Vent AeroMask Adult Vent Tidal Volume 450.0 450.0 450.0 POC PEEP 5 5 5 Crit Call To/Read Back Yes Blood Gas Notified Whom [facility] Blood Gas Notified Time 17:31:23 Imaging Radiology Impression Abdomen/Pelvis CT 09/09/25 10:12 IMPRESSION: Marked distention of colon and the stomach as well as numerous loops of small bowel which are filled with fluid. There is a large amount of rectal stool. This may reflect fecal impaction causing obstruction with proximal bowel dilatation. Surgical and/or GI consultation is recommended. There is a percutaneous gastrostomy tube which is not in the stomach. This likely needs to be replaced and/or repositioned. Please note that there was significant fluid noted in the esophagus on the CTA of the neck. This was discussed with the provider by telephone and she stated that a nasogastric tube would be placed. Patchy nodularity at the lung bases which has an inflammatory/infectious appearance. Aspiration could give this appearance and would correlate with the above mentioned findings. Additional findings as above. Reading [facility] Chest X-Ray 09/09/25 16:27 IMPRESSION: 1. NG tube tip in the distal esophagus. Advancement of approximately 15.0 cm is suggested for better positioning. 2. Small lung opacities bilaterally, likely infectious in etiology. Reading Location: [id number] Chest X-Ray 09/10/25 07:45 IMPRESSION: Patchy ground-glass opacity most pronounced on the right. Infection/aspiration versus asymmetric edema. This has progressed compared with the previous study. Lines and tubes as above. The endotracheal tube is only 5 mm above the kade and should probably be withdrawn approximately 3 cm. Reading Location: [facility]
[2025-09-10 15:28] LABS: Reflex Lactate? Y
--- NOTE | 2025-09-10 16:24 | NURSING ---
Temperature 103.2 despite cooling blanket, ice packs applied
[2025-09-10] MEDS: Albumin Human 25% (100 mL) 25 GM/100 ML BAG IV (18:31)
[2025-09-10 18:44] LABS: Anion Gap 14 (5-15); BUN 94 mg/dL (4-19); BUN/Creat Ratio 33.9 RATIO (10-20); Carbon Dioxide 15.3 mmol/L (21.0-32.0); Chloride 107 mmol/L (98-108); Estimated Creatinine Clearance 16.23 ml/min (50-250); Glucose 88 mg/dL (70-99); Potassium 5.6 mmol/L (3.3-5.1)
[2025-09-10 18:49] LABS: Calcium,Total 6.4 mg/dL (7.6-11.0)
[2025-09-11] VITALS (56 sets, daily range): BP systolic 42–150; BP diastolic 18–121; PULSE 86–112; RESP 15–28; TEMP 37.9–39.4; O2SAT 91–98; BMI 26.9
[2025-09-11] MEDS: Norepinephrine 8 MG in 0.9% Normal Saline (250mL Bag) 242 ML 56.3 ML IV ×6 (00:29→23:00)
[2025-09-11 01:01] LABS: Anion Gap 15 (5-15); BUN 92 mg/dL (4-19); BUN/Creat Ratio 32.4 RATIO (10-20); Calcium,Total 6.8 mg/dL (7.6-11.0); Carbon Dioxide 16.2 mmol/L (21.0-32.0); Chloride 106 mmol/L (98-108); Estimated Creatinine Clearance 15.83 ml/min (50-250); Glucose 131 mg/dL (70-99); Potassium 5.5 mmol/L (3.3-5.1)
--- NOTE | 2025-09-11 01:23 | PCM.HOSP.N ---
Hospitalist Note Potassium 5.5, will initiate the hyperkalemic protocol but will omit usage of kayelexate as no marked output rectally, primarily feculent material via the OG ongoing.
[2025-09-11] MEDS: Amiodarone 360 MG in Dextrose 5% Viaflo Bag 192.8 ML 16.7 MG CONT INF ×2 (01:39→12:33)
[2025-09-11] MEDS: Vasopressin 20 UNITS in 0.9% Normal Saline (50mL Bag) 24 ML 3 UNITS CONT INF ×3 (01:39→18:58)
[2025-09-11] MEDS: Insulin Lispro 10 UNIT in Syringe 0 ML 6 UNIT IV (01:54)
[2025-09-11] MEDS: EPINEPHRINE CONT INF ×6 (02:00→19:22)
[2025-09-11] MEDS: NORMAL SALINE 0.9% CONT INF ×12 (02:00→22:10)
[2025-09-11] MEDS: Sodium Bicarbonate 150 MEQ in Dextrose 5%-Water (1000mL Bag) 1,000 ML 100 MEQ IV ×2 (02:18→13:02)
[2025-09-11] MEDS: PHENYLEPHRINE CONT INF ×6 (03:37→22:10)
[2025-09-11 05:07] LABS: Hematocrit 29.8 % (37-47); Hemoglobin 10.0 g/dL (12.0-15.0); Immature Granulocytes Count 0.670 X10^3/uL (0.0-0.0); Mean Corp Hgb Conc 33.6 g/dL (32-36); Mean Corpuscular Volume 94.3 fL (81-99); Mean Platelet Vol. 10.2 fl (6.2-12.0); NRBC Flagged by Analyzer 0.8 % (0-5); POSITIVE MORPHOLOGY YES; Platelet Count 162 K/mm3 (150-450); RBC Distribution Width CV 15.7 % (11.6-14.6); RBC Distribution Width SD 53.7 fl (35.1-43.9); Red Blood Count 3.16 M/mm3 (4.2-5.4); White Blood Count 21.2 K/mm3 (4.4-11.0)
[2025-09-11 05:12] LABS: Differential Indicated SCAN CRITERIA MET
[2025-09-11] MEDS: fentaNYL drip 100 ML 7.5 MCG CONT INF ×2 (05:51→18:43)
[2025-09-11 05:52] LABS: Base Excess -9 mmol/L (-2 to +2); FI02 50.0; PEEP 5; PO2 74 mmHG (75-100); RR 28; SITE L Radial; SO2 96 % (94-98)
[2025-09-11 06:01] LABS: Vancomycin, Random Level 13.6 ug/mL (0.0-15.0)
[2025-09-11] MEDS: Vancomycin Trough/Random Due 1 LAB MC (06:08)
--- NOTE | 2025-09-11 06:11 | PCM.RX.CS ---
Consult Antibiotic Management Pharmacy has been consulted to manage selected antibiotic: Vancomycin Type of Intervention Type of Consult: Follow-up Labs Labs: Random Vancomycin 13.6 ug/mL (0.0-15.0) 09/11/25 04:58 Microbiology Microbiology: Microbiology 09/09/25 12:42 Sputum, Induced/Lukens Gram Stain - Final 09/09/25 12:42 Sputum, Induced/Lukens Respiratory Culture - Preliminary Yeast, not Jessi albicans 09/09/25 08:30 Nasal Secretion SARS-CoV-2 Antigen (Rapid) - Final 09/10/25 05:00 Urine Catheter - Tinoco Legionella Antigen - Final 09/10/25 05:00 Urine Catheter - [place] Streptococcus pneumoniae Antigen (M - Final Streptococcus pneumonia Ag 09/10/25 04:50 Nasal Secretion MRSA (PCR) - Final 09/09/25 17:35 Mucosa - Nasopharyngeal Respiratory Panel (PCR) - Final 09/09/25 10:46 Stool Stool Occult Blood (LIZ) - Final Goal Trough Goal Trough: 15-20 mcg/mL Pharmacy Plan for Drug Dosing Pharmacy Plan for Drug Dosing: Pharmacy Service will continue to monitor and adjust dosing as required. Rndom level 13.6 @ 42 hours. order 1gm x1 and draw random level 09/13 with am labs Follow-Up Labs Follow-Up Labs: Trough: Vancomycin Date/Time Labs Ordered Labs to be done on [date and time ordered]: 09/13 @ 0600
[2025-09-11] MEDS: Vancomycin HCl 1,000 MG in 0.9% Normal Saline (250mL Bag) 250 ML 250 MG IV (06:21)
[2025-09-11] MEDS: Pantoprazole Sodium 80 MG in 0.9% Normal Saline (100mL Bag) 80 ML 10 MG CONT INF ×2 (06:24→14:48)
[2025-09-11 06:33] LABS: AST(SGOT) 762 U/L (<=31); Alanine Aminotransfer ALT/SGPT 839 U/L (<=34); Albumin, Serum 2.0 g/dL (3.4-4.8); Alkaline Phosphatase 54 U/L (35-104); Anion Gap 16 (5-15); BUN 90 mg/dL (4-19); BUN/Creat Ratio 31.7 RATIO (10-20); Calcium,Total 6.7 mg/dL (7.6-11.0); Carbon Dioxide 15.6 mmol/L (21.0-32.0); Chloride 106 mmol/L (98-108); Estimated Creatinine Clearance 17.53 ml/min (50-250); Globulin 1.9 g/dL (2.2-4.2); Glucose 104 mg/dL (70-99); Potassium 5.5 mmol/L (3.3-5.1)
--- NOTE | 2025-09-11 07:42 | PCM.PN.INT ---
Assessment & Plan Assessment/Plan (1) Septic shock: PLAN: Plan RECOMMENDATIONS: 1. Continue assist-control mode of mechanical ventilation. Continue to wean FiO2 and PEEP as tolerated. 2. Continue vasopressor support along with stress dose steroids in an attempt to maintain hemodynamic stability. 3. Continue current sedation regimen. Goal to maintain RASS of -1 to 1. 4. Continue sodium bicarb and infusion. Nephrology is following to assist with medical management. 5. Continue PPI therapy. 6. Continue to monitor blood counts and transfuse if hemoglobin drops below 7 g/dL. 7. Ongoing goals of care discussion with the patient's family. Recommend palliative care consultation. IMPRESSIONS: 1. Refractory septic shock Clinical concern for streptococcal pneumonia with superimposed aspiration of gastric contents suspected. The patient is currently in refractory septic shock requiring multi vasopressor agents in an attempt to maintain hemodynamic stability. She has significant multisystem organ failure. Plan to continue supportive care with vasopressors in an attempt to maintain a mean arterial pressure at or above 65 mmHg along with antimicrobials, as ordered. In addition, stress dose steroids will be continued. Overall, the patient's prognosis is extremely poor. 2. Acute hypoxemic respiratory failure Most likely secondary to streptococcal pneumonia coupled with inability to compensate for increased metabolic demands in the setting of septic shock and cardiac arrest. The patient will be continued on assist-control mode of mechanical ventilation with a goal to wean FiO2 and PEEP to maintain saturations at or above 90%. The patient is significantly volume overloaded. However, diuretics are not able to be considered in light of the patient's significant hemodynamic instability. 3. Acute on chronic kidney disease Most likely prerenal in etiology with suspected evolution to ATN in the setting of septic shock. The patient would likely be unable to tolerate any form of hemodialysis support. Continue sodium bicarbonate infusion. Nephrology is following to assist with medical management. 4. Ischemic hepatitis Secondary to endorgan tissue hypoperfusion in the setting of #1. Continue supportive care. 5. Acute blood loss anemia secondary to erosive esophagitis The patient underwent a scopic evaluation on September 10 which revealed severe erosive esophagitis with bleeding which was treated with APC. Plan to continue PPI therapy. Continue to monitor blood counts. Transfuse if hemoglobin drops below 7 g/dL. 6. NSTEMI/atrial fibrillation with RVR/status post cardiac arrest Again, most likely secondary to demand ischemia in the setting of #1. Repeat echocardiogram is currently pending. 7. Massive gastric distention/megacolon/misplaced gastrostomy/Saw tube/history of GERD/history of esophageal stent Continue decompressive efforts from above and below as instituted. On EGD, PEG tube was apparently noted to be normal-appearing. TIME: 42 minutes of critical care time, independent of procedures, was spent addressing the patient's refractory septic shock, acute hypoxemic respiratory failure, acute on chronic kidney disease, ischemic hepatitis, acute blood loss anemia, NSTEMI, atrial fibrillation, review of all data and collaboration with the care team. Subjective Subjective The patient was seen and examined at the bedside this morning. Events from the last 24 hours have been reviewed. The patient is currently febrile with a Tmax overnight of 103 ?F. She is currently documented to be overall net +20+ liters for the hospitalization. The patient remains on a significant amount of life support including multiple vasopressors to maintain hemodynamic stability along with assist-control mode of mechanical ventilation with an FiO2 requirement of 50%. White blood cell count is elevated at 21,000. Hemoglobin is relatively stable at 10.0 g/dL with a platelet count of 162,000. Arterial blood gas was notable for a pH of 7.46 with a pCO2 of 21 and pO2 of 74. Chemistry profile was notable for a potassium of 5.5 with a bicarbonate of 16, anion gap of 16 and creatinine of 2.84. AST and ALT were increased at 762 and 839, respectively. Objective Data Objective Data The patient's most recent lab work, culture data and imaging studies have all been personally reviewed. Surface echocardiogram from March 2023 demonstrated normal LV size with an ejection fraction of 65% and a right ventricular systolic pressure of 55 mmHg. Pneumococcal urinary antigen was positive on September 10. Sputum culture was positive for yeast. Respiratory viral panel was negative. Vital Signs: Vital Signs Temp Pulse Resp BP Pulse Ox O2 Del Method O2 Flow Rate 101.8 F H 109 H 28 H 139/121 H 93 Mechanical Ventilator 94 09/11/25 07:00 09/11/25 07:12 09/11/25 07:12 09/11/25 07:00 09/11/25 07:12 09/11/25 07:00 09/11/25 04:00 FiO2 50 09/11/25 07:12 Oxygen Flow Rate (L/min) 94 Oxygen Delivery Method Mechanical Ventilator Weight: 167 lb 1.766 oz Body Mass Index (BMI) 26.9 Intake & Output: Intake and Output for Last 24 Hours 09/09/25 09/10/25 09/11/25 23:59 22:59 23:59 Intake Total 6016.94 / 6194.24 28874.31 / 77931.73 2634.12 / 2634.12 Output Total 1575 / 1750 625 / 625 Balance 6016.94 / 6194.24 62620.31 / 25465.73 Lab / Micro Data Attestation: I reviewed the patient's lab results. 09/11/25 04:58 09/11/25 04:58 Labs: Laboratory Results - last 24 hr 09/10/25 10:00: POC Glucose 101 09/10/25 10:44: POC Glucose 162 H 09/10/25 11:25: Hgb 9.9 L, Hct 30.5 L, Sodium 136, Potassium 5.6 H, Chloride 108, Carbon Dioxide 13.4 L, Anion Gap 15, BUN 94 H, Creatinine 2.75 H, Estim Creat Clear Calc 16.29 L, Est GFR (MDRD) Non-Af 17 L, BUN/Creatinine Ratio 34.3 H, Glucose 239 H, Lactic Acid 5.7 H*, Calcium 6.6 L 09/10/25 14:14: POC Glucose 108 H 09/10/25 14:47: POC Glucose 145 H 09/10/25 15:50: Lactic Acid 5.7 H* 09/10/25 16:10: POC Glucose 120 H 09/10/25 17:55: Sodium 136, Potassium 5.6 H, Chloride 107, Carbon Dioxide 15.3 L, Anion Gap 14, BUN 94 H, Creatinine 2.76 H, Estim Creat Clear Calc 16.23 L, Est GFR (MDRD) Non-Af 17 L, BUN/Creatinine Ratio 33.9 H, Glucose 88, Calcium 6.4 L* 09/11/25 00:15: Sodium 137, Potassium 5.5 H, Chloride 106, Carbon Dioxide 16.2 L, Anion Gap 15, BUN 92 H, Creatinine 2.83 H, Estim Creat Clear Calc 15.83 L, Est GFR (MDRD) Non-Af 17 L, BUN/Creatinine Ratio 32.4 H, Glucose 131 H, Calcium 6.8 L 09/11/25 01:29: POC Glucose 81 09/11/25 02:47: POC Glucose 97 09/11/25 04:58: WBC 21.2 H, RBC 3.16 L, Hgb 10.0 L, Hct 29.8 L, MCV 94.3, MCH 31.6, MCHC 33.6, RDW Std Deviation 53.7 H, RDW Coeff of Lee 15.7 H, Plt Count 162, MPV 10.2, Immature Gran % (Auto) 3.200 H, Neut % (Auto) 89.0 H, Lymph % (Auto) 3.4 L, [place] % (Auto) 3.9, Eos % (Auto) 0.5, Baso % (Auto) 0.0, Absolute Neuts (auto) 18.9 H, Absolute Lymphs (auto) 0.71 L, Nucleated RBC % 0.8, Sodium 138, Potassium 5.5 H, Chloride 106, Carbon Dioxide 15.6 L, Anion Gap 16 H, BUN 90 H, Creatinine 2.84 H, Estim Creat Clear Calc 17.53 L, Est GFR (MDRD) Non-Af 17 L, BUN/Creatinine Ratio 31.7 H, Glucose 104 H, Calcium 6.7 L, Total Bilirubin 0.64, AST 762 H, ALT 839 H, Alkaline Phosphatase 54, Total Protein 3.9 L, Albumin 2.0 L, Globulin 1.9 L, Albumin/Globulin Ratio 1.1, Random Vancomycin 13.6 Micro: Microbiology 09/09/25 12:42 Sputum, Induced/Lukens Gram Stain - Final 09/09/25 12:42 Sputum, Induced/Lukens Respiratory Culture - Preliminary Yeast, not Jessi albicans 09/09/25 08:30 Nasal Secretion SARS-CoV-2 Antigen (Rapid) - Final 09/10/25 05:00 Urine Catheter - [place] Legionella Antigen - Final 09/10/25 05:00 Urine Catheter - [place] Streptococcus pneumoniae Antigen (M - Final Streptococcus pneumonia Ag 09/10/25 04:50 Nasal Secretion MRSA (PCR) - Final 09/09/25 17:35 Mucosa - Nasopharyngeal Respiratory Panel (PCR) - Final 09/09/25 10:46 Stool Stool Occult Blood (LIZ) - Final ABG Data ABG results: ABG 09/11/25 05:48 Specimen Type ART Sample Site L Radial pH 7.46 H Bicarbonate Actual 15.0 L Total CO2 16 Base Excess -9 L O2 Saturation 96 O2 % 50.0 ABG pCO2 21.3 L ABG pO2 74 L Gaudencio Test N/A Respiration Rate 28 O2 Delivery Device Adult Vent Vent Mode AC Tidal Volume 450.0 POC PEEP 5 Radiography Diagnostic Testing: Radiology Impression Chest X-Ray 09/10/25 07:45 IMPRESSION: Patchy ground-glass opacity most pronounced on the right. Infection/aspiration versus asymmetric edema. This has progressed compared with the previous study. Lines and tubes as above. The endotracheal tube is only 5 mm above the kade and should probably be withdrawn approximately 3 cm. Reading Location: [facility] Physical Exam Const Constitutional Narrative: Intubated, sedated and mechanically ventilated. General Appearance: ill appearing Positive for acutely and patient mechanically ventilated HEENT normocephalic and head/scalp atraumatic Mouth: endotracheal tube in place and OG tube in place Eyes EOMs intact bilaterally and conjunctivae normal Neck supple General: trachea midline and CVC in place Chest inspection of chest normal Resp normal respiratory effort Auscultation: diminished lung sounds Cardio S1 normal heart sound and S2 normal heart sound Rate: tachycardic GI soft to palpation Inspection: abdominal distention Extremity General Extremity: Negative for clubbing or edema Skin no rashes or lesions noted Neuro Neuro Narrative: Opens eyes to verbal stimulation. Does not follow any commands. Sensorium / Orientation: sedated on vent Charges/Coding Procedures Hospitalists Procedures: [id number] Critical Care 1st Hr
[2025-09-11] MEDS: Chlorhexidine 15 ML PO ×2 (08:02→19:52)
--- NOTE | 2025-09-11 08:37 | PN.HOSP_ITS ---
Reason for Visit
--- NOTE | 2025-09-11 08:37 | PCM.PN.HOSP ---
Reason for Visit Chief Complaint: Generalized weakness and vomiting Subjective Subjective Reviewed overnight events, discussed with nursing and student counsellor. Patient remains on multiple pressors, febrile, fecal appearing material out of OG Objective Data Objective Data Vital Signs: Vital Signs Temp Pulse Resp BP Pulse Ox O2 Del Method O2 Flow Rate 102.0 F H 93 22 H 133/72 H 93 Mechanical Ventilator 94 09/11/25 08:00 09/11/25 08:00 09/11/25 08:00 09/11/25 08:00 09/11/25 08:00 09/11/25 08:00 09/11/25 04:00 FiO2 50 09/11/25 08:00 Oxygen Flow Rate (L/min) 94 Oxygen Delivery Method Mechanical Ventilator Weight: 75.8 kg Body Mass Index (BMI) 26.9 Intake & Output: Intake and Output for Last 24 Hours 09/09/25 09/10/25 09/11/25 23:59 22:59 23:59 Intake Total 6016.94 / 6194.24 26712.31 / 86717.73 3816.51 / 3816.51 Output Total 1575 / 1750 875 / 875 Balance 6016.94 / 6194.24 66416.31 / 78468.73 2941.51 / 2941.51 Lab / Micro Data 09/11/25 04:58 09/11/25 04:58 Labs: Laboratory Results - last 24 hr 09/10/25 10:00: POC Glucose 101 09/10/25 10:44: POC Glucose 162 H 09/10/25 11:25: Hgb 9.9 L, Hct 30.5 L, Sodium 136, Potassium 5.6 H, Chloride 108, Carbon Dioxide 13.4 L, Anion Gap 15, BUN 94 H, Creatinine 2.75 H, Estim Creat Clear Calc 16.29 L, Est GFR (MDRD) Non-Af 17 L, BUN/Creatinine Ratio 34.3 H, Glucose 239 H, Lactic Acid 5.7 H*, Calcium 6.6 L 09/10/25 14:14: POC Glucose 108 H 09/10/25 14:47: POC Glucose 145 H 09/10/25 15:50: Lactic Acid 5.7 H* 09/10/25 16:10: POC Glucose 120 H 09/10/25 17:55: Sodium 136, Potassium 5.6 H, Chloride 107, Carbon Dioxide 15.3 L, Anion Gap 14, BUN 94 H, Creatinine 2.76 H, Estim Creat Clear Calc 16.23 L, Est GFR (MDRD) Non-Af 17 L, BUN/Creatinine Ratio 33.9 H, Glucose 88, Calcium 6.4 L* 09/11/25 00:15: Sodium 137, Potassium 5.5 H, Chloride 106, Carbon Dioxide 16.2 L, Anion Gap 15, BUN 92 H, Creatinine 2.83 H, Estim Creat Clear Calc 15.83 L, Est GFR (MDRD) Non-Af 17 L, BUN/Creatinine Ratio 32.4 H, Glucose 131 H, Calcium 6.8 L 09/11/25 01:29: POC Glucose 81 09/11/25 02:47: POC Glucose 97 09/11/25 04:58: WBC 21.2 H, RBC 3.16 L, Hgb 10.0 L, Hct 29.8 L, MCV 94.3, MCH 31.6, MCHC 33.6, RDW Std Deviation 53.7 H, RDW Coeff of Lee 15.7 H, Plt Count 162, MPV 10.2, Immature Gran % (Auto) 3.200 H, Neut % (Auto) 89.0 H, Lymph % (Auto) 3.4 L, Miner % (Auto) 3.9, Eos % (Auto) 0.5, Baso % (Auto) 0.0, Absolute Neuts (auto) 18.9 H, Absolute Lymphs (auto) 0.71 L, Nucleated RBC % 0.8, Sodium 138, Potassium 5.5 H, Chloride 106, Carbon Dioxide 15.6 L, Anion Gap 16 H, BUN 90 H, Creatinine 2.84 H, Estim Creat Clear Calc 17.53 L, Est GFR (MDRD) Non-Af 17 L, BUN/Creatinine Ratio 31.7 H, Glucose 104 H, Calcium 6.7 L, Total Bilirubin 0.64, AST 762 H, ALT 839 H, Alkaline Phosphatase 54, Total Protein 3.9 L, Albumin 2.0 L, Globulin 1.9 L, Albumin/Globulin Ratio 1.1, Random Vancomycin 13.6 Micro: Microbiology 09/09/25 12:42 Sputum, Induced/Lukens Gram Stain - Final 09/09/25 12:42 Sputum, Induced/[place]ukens Respiratory Culture - Preliminary Yeast, not Jessi albicans 09/09/25 08:30 Nasal Secretion SARS-CoV-2 Antigen (Rapid) - Final 09/10/25 05:00 Urine Catheter - [place] Legionella Antigen - Final 09/10/25 05:00 Urine Catheter - [place] Streptococcus pneumoniae Antigen (M - Final Streptococcus pneumonia Ag 09/10/25 04:50 Nasal Secretion MRSA (PCR) - Final 09/09/25 17:35 Mucosa - Nasopharyngeal Respiratory Panel (PCR) - Final 09/09/25 10:46 Stool Stool Occult Blood (LIZ) - Final ABG Data ABG results: ABG 09/11/25 05:48 Specimen Type ART Sample Site L Radial pH 7.46 H Bicarbonate Actual 15.0 L Total CO2 16 Base Excess -9 L O2 Saturation 96 O2 % 50.0 ABG pCO2 21.3 L ABG pO2 74 L Gaudencio Test N/A Respiration Rate 28 O2 Delivery Device Adult Vent Vent Mode AC Tidal Volume 450.0 POC PEEP 5 Radiography Diagnostic Testing: Radiology Impression Chest X-Ray 09/10/25 07:45 IMPRESSION: Patchy ground-glass opacity most pronounced on the right. Infection/aspiration versus asymmetric edema. This has progressed compared with the previous study. Lines and tubes as above. The endotracheal tube is only 5 mm above the kade and should probably be withdrawn approximately 3 cm. Reading Location: [facility] Physical Exam Narrative General: Intubated and sedated HEENT: normocephalic Eyes: Eyes closed Neck: Supple Respiratory: Mechanically ventilated Cardiovascular: Regular rate and rhythm GI: +distended Musculoskeletal: Presently sedated and not moving extremities spontaneously Neuro: Unable to participate in neuro exam secondary to intubated and sedated Psych: Unable to cooperate secondary to intubated and sedated Assessment & Plan Assessment/Plan (1) Septic shock: (2) Aspiration pneumonia: (3) CITLALY (acute kidney injury): (4) Acute blood loss anemia: (5) Hyperkalemia: PLAN: Plan # Septic shock secondary to aspiration and pneumococcal pneumonia -Patient presented with a blood cell count of 27.5, CITLALY, lactic acid of 10, bicarb of 17.7 and persistent hypotension with systolic blood pressure in the 60s necessitating central line placement and Levophed -Patient also placed on vasopressin while in the ED -Patient with CT chest/abdomen/pelvis with CT chest showing suspected aspiration pneumonia -There were esophageal contents there is increased concern for aspiration -Patient received 2 L of IV fluid in the ED -Blood cultures -Sputum culture, COVID ordered, respiratory panel ordered -Urine antigens -Mucinex, I/S - Vancomycin and Zosyn given severity of patient's illness -Will check MRSA swab -Given patient's significant acidosis also starting on bicarb drip -Yard Specialist consult -09/10: Patient was up to 4 pressors overnight on stress dose steroids and did have a CODE BLUE but achieved ROSC. Pt did have urine antigen positive for pneumococcal pneumonia. Continuing broad-spectrum antibiotics and following cultures. Did ultimately have to have a fifth pressor added and has been maintaining on that at this time, overnight did receive a dose of micafungin, sputum is growing a not Jessi yeast, unclear significance however given her critical illness this has been continued. Continue supportive care -09/11: Patient remains febrile, urine had pneumococcal pneumonia, sputum growing yeastlike organism, not Jessi of unclear significance. Given persistently elevated fever with concomitant increase in white blood cell count despite multiple agents, will consult ID for assistance. Micafungin had been given 1 dose after patient coded, this has been continued. Patient remains on multiple pressors but does seem to have improving blood pressure # Cardiac arrest -09/10: CODE DARCI called at 1043 when nursing staff noted an irregular rhythm on monitor and EKG ordered however patient became pulseless. Patient received epinephrine and bicarb as well as amiodarone bolus and drip and achieved ROSC. Multifactorial, patient was up to 4 pressors with critical illness and was hyperkalemic on presentation and received K-lowering and cocktail but repeat BMP had yet to be redrawn. Repeat potassium was obtained after CODE BLUE and showed a potassium of 6.3, decreased to 5.9 but will work on further aggressively lowering potassium and continue to address underlying processes/patient's shock -09/11: Patient remains critically ill in ICU on multiple drips, CODE STATUS has been discussed with family multiple times and patient currently still full code. Echocardiogram ordered and pending. Additionally palliative consult placed to help with goals of care discussion # Acute blood loss anemia secondary to bleeding esophagitis - Hemoglobin 5.3 down from 7.3 yesterday baseline appears to be about 10 - Fecal occult reported to be negative however given presentation and clinical picture with significant elevation in BUN as well as suspected patient has upper GI bleed -PPI drip -GI consult -Patient being transfused -Trend H&H -09/10: Received 2 units of packed red blood cells with improvement in hemoglobin to 10.5, patient underwent endoscopy in the ICU at bedside due to critical illness and was found to have severe erosive esophagitis with bleeding that was treated with APC, brown gastric fluid noted with no lesions in the duodenum, patient's NG tube was successfully advanced past esophageal stent as well. Hemoglobin stable this a.m., continue IV PPI -09/11: Hemoglobin is stabilized post endoscopy, continue IV PPI # Abdominal distention -CT of the abdomen pelvis with marked distention of colon and the stomach as well as numerous loops of small bowel which are fluid-filled and large amount of rectal stool -Patient did have similar findings on previous scans been going back a couple of years ago however it is currently worsened - does note that she has been still having some stool output -Soapsuds enemas -NG placed in the ED, to be repositioned to traverse esophageal stent -Hold glycopyrrolate -09/10: NG tube advanced endoscopically passed esophageal stent into stomach, enemas as able as distention seems to be due to significant rectal stool burden and likely concomitant ileus secondary to critical illness, patient is critically ill and not a good surgical candidate nor is there a specific surgical indication at this time, cannot rule out ischemic bowel, unable to anticoagulate due to concurrent anemia and blood loss -09/11: Rectal tube in place without significant output, does still have abdominal distention # Acute respiratory failure secondary to underlying critical illness, suspected aspiration, and pneumonia -Patient required intubation and sedation -Yard Specialist consult -Vent management -09/10: Patient remains intubated and mechanically ventilated, currently 96% on 50% FiO2, student counsellor following, continue broad-spectrum antibiotics -09/11: Yard Specialist following, remains intubated, continue present management # Transaminitis -09/10: Normal transaminases 09/08 that were very mildly elevated on presentation but increased significantly due to patient's shock, 957 this a.m., address underlying illness and wean pressors as able -09/11: Slightly downtrending # CITLALY on CKD stage IIIb -Patient's creatinine 3.88 up from 3.21 yesterday -Appears baseline is around 2.5 -Suspect secondary to critical illness -IV fluids -Support underlying process - Low threshold for nephrology consult -09/10: Creatinine is downtrending, baseline creatinine around 2.5, 3.88 yesterday and this a.m. 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 Discussed with student counsellor and it was recommended to consult nephrology to see if patient would be a CRRT candidate that this is unlikely, discussed with them and they discussed with family, will not pursue CRRT and is not good candidate at this time. Discussed with GI and it was recommended that Kayexalate be given and NG tube clamped for 1 hour, discussed with nursing and order entered # Elevated troponin - Troponin of 52 with repeat of 52 -Suspect that this is secondary to septic shock -09/10: Troponins initially downtrended but post CODE BLUE and ROSC they had elevated again, echocardiogram ordered -09/11: Echo pending # PEG tube - CT queried if percutaneous tube was in stomach -Discussed with GI, patient has endoscopy this can be corrected -Hold feeds at this time -09/10: On EGD normal-appearing PEG tube was seen under endoscopy -09/11: PEG tube reportedly in place Chronic medical problems and/or problems not being actively addressed during today's encounter: # Esophageal stent - Has history of esophageal stent with routine exchanges -Follows with GI -Stent patent per endoscopy # History of bipolar disorder -Stable on Lamictal -Resume home medications as able #GERD -Maintain on PPI # Hyperthyroidism -Continue methimazole as able #DVT ppx: SCDs Anabela Saavedra MD Charges/Coding Visit Charges Inpatient E&M: 37471 Subs Hosp L2
[2025-09-11] MEDS: Micafungin Sodium 100 MG in Dextrose 5%-Water (100mL Bag) 100 ML IV (09:29)
--- NOTE | 2025-09-11 09:42 | PCM.CONS.P ---
[facility] Medical History Aspiration pneumonia Cough History of pain when walking History of Clostridium difficile infection Arthritis History of renal disease History of echocardiogram History of Mohs micrographic surgery for skin cancer Acute uremia Anemia History of jejunostomy tube placement Alzheimer disease Iron deficiency anemia Dysphagia History of gastrostomy tube placement Acute renal insufficiency Gastric paresis Anemia, unspecified Stenosis of esophagus Erosive esophagitis UTI (urinary tract infection) Gram-negative bacteremia Severe malnutrition Severe malnutrition Severe dehydration Wears glasses Post-menopausal Bipolar disorder Diabetes insipidus Thyroid disease Bladder disease Back pain Dietary restriction History of hiatal hernia Gastric reflux Former smoker Generalized weakness Unsteady gait Gastroparesis Nondiabetic gastroparesis Dysphagia GI bleed Tardive dys[place]ines[place] History of herpes zoster Hypertension Delirium due to multiple etiologies Hypercalcemia Hypernatremia Secondary hyperparathyroidism of renal origin Bipolar disorder with moderate depression Pulmonary emboli Anemia Anxiety Difficulty chewing Bipolar disorder Home Medications ?Medication ?Instructions ?Recorded ?Last Taken ?Type methimazole 5 mg tablet 5 mg feeding tube MOTUWETHFR 10/04/20 01/14/23 History Thyroid denosumab 60 mg/mL subcutaneous 60 mg subcut .Q6MO osteoporosis 09/05/22 08/27/22 History syringe (Prolia) polyethylene glycol 3350 17 17 g PO DAILY PRN constipation 09/05/22 09/05/22 History gram/dose oral powder (Miralax) lamotrigine 100 mg tablet 200 mg feeding tube DAILY Bipolar 03/19/23 07/15/24 History Disorder memantine 10 mg tablet 10 mg feeding tube DAILY Check 04/20/23 07/15/24 History with primary doctor lorazepam 2 mg tablet 2 mg PO 4X/DAY PRN anxiety 06/11/23 08/02/25 History estradiol 0.01% (0.1 mg/gram) 1 applic vaginal .3 TIMES WEEKLY 04/06/24 Unknown History vaginal cream ferrous sulfate 325 mg (65 mg 325 mg PO DAILY SUPPLEMENT 04/06/24 Unknown History iron) tablet nutritional supplements 0.06 948 ml feeding tube QHS 07/04/24 Unknown History gram-1.2 kcal/mL oral liquid (Osmolite 1.2 Mp) acetaminophen 650 mg/20.3 mL oral 650 mg (20.3 mL) G-tube Q6H PRN 07/10/24 Unknown Rx solution PRN Pain 1-10 Or Fever #0 mL cinacalcet 30 mg tablet 30 mg PO SUMOTUWETHFR 07/13/24 Unknown History cholecalciferol (vitamin D3) 50 100 mcg (2 x 50 mcg (2,000 unit)) 01/04/25 Unknown Rx mcg (2,000 unit) capsule PO DAILY #60 caps scopolamine base 1 mg over 3 days 1 patch transdermal Q3D #10 ea 04/26/25 08/02/25 Rx transdermal patch lansoprazole 30 mg capsule,delayed 30 mg PO BID #60 caps 05/05/25 08/02/25 Rx release oxybutynin chloride 15 mg 15 mg PO DAILY Overactive bladder 06/12/25 08/01/25 Rx tablet,extended release 24 hr #90 tabs docusate sodium 100 mg capsule 100 mg PO DAILY 07/27/25 Unknown History (Colace) glycopyrrolate 2 mg tablet 2 mg feeding tube BID secretions 07/27/25 Unknown History ondansetron HCl 4 mg tablet 4 - 8 mg feeding tube Q6H PRN PRN 07/27/25 Unknown History for nausea/vomiting amoxicillin 875 mg-potassium 1 tab PO Q12H 14 days #28 tabs 09/06/25 Unknown Rx clavulanate 125 mg tablet neomycin-bacitracn Zn-polymyx 3.5 1 applic topical TID #30 grams 09/06/25 Unknown Rx mg-400 unit-5,000 unit/gram top oint Allergy/AdvReac Type Severity Reaction Status Date / Time No Known Allergies Allergy Verified 09/09/25 10:23 Family History Father CVA (cerebral vascular accident) Sister CVA (cerebral vascular accident) Cancer Surgical History History of esophagogastroduodenoscopy (EGD) History of esophagogastroduodenoscopy (EGD) Hx of esophagogastroduodenoscopy Social History household members: spouse housing: house Smoking Status: Former smoker Tobacco: How many years used: 4 second hand exposure: Yes alcohol intake: never substance use type: does not use what type of physical activity do you participate in: other details: OT PT - [facility] [place] frequency: daily leeanne/orthodox: Spiritism seatbelt use: always additional social history: Ambulates at baseline without assistive device ROS ROS Narrative Unable to assess as patient is currently intubated and on fentanyl. Physical Exam Const Constitutional Narrative: Intubated and not following commands during assessment. Orientation / Consciousness: lethargic HEENT normocephalic Lymph Lymphatic: lymphedema Resp Auscultation: rhonchi, wheezes and diminished lung sounds Cardio Rate: tachycardic GI GI Narrative: Severe abdominal distention hypoactive bowel sounds. PEG tube in place. Rectal tube in place. NG tube for decompression. Inspection: abdominal distention Auscultation: hypoactive bowel sounds Palpation: tender, guarding and rigid Extremity General Extremity: edema Neuro deep tendon reflexes 2+ bilaterally Psych Psych Narrative: Unable to assess as patient is intubated but she is moving her legs and appears restless. Activity / Motor Behavior: restless Charges/Coding Palliative Care Palliative Care: 40122 New Pt Consult 80+ min HPI Current admission Current Code Status: DNRCC-A with intubation Associated Diagnosis: sepsis Consult Data Date of Consult: 09/11/25 Location of consult: ICU Reason for referral: goals/code status Referral source: Dr. Livingston Palliative care diagnosis (Summary list): sepsis multi system organ failure Palliative care services/treatment (Accepted, as consult): accepted Case discussed with referring provider: Dr. Livingston and Dr. Verma HPI Narrative HPI Narrative: PAIN ASSESSMENT pt is on Fentanyl drip. CPOT scale does not indicate that the seems to be experiencing pain, at this time . Prior to meeting with the pt at bedside I reviewed all labs, radiological studies and documentation. I then met with SIMONA HERNANDEZ at bedside. She is currently intubated with full pressor support at max levels. Nursing was at bedside and I noted during the time they were rolling her, dark brown liquid stool seeped from her mouth. Her eyes are open but she is unable to follow commands. I contacted the patients daughter and and planned for a family meeting at 1100 today. Pt was admitted on 09/09/25 as per HPI below. She was a Code Blue on 09/10/25, in which they did obtain ROSC but hs is currently maxed out of 4 pressors. Prognosis is very poor. Prior to meeting with the family I had a discussion with zipper repairer, Dr. Livingston and and RN Leah about patient's progress based on aspiration pneumonia, multisystem organ failure, status post CPR and max vasopressor support. I then met with the patient's Jeffrey, daughter Elva as well as multiple brothers and sisters of the patient in the family room. I introduced myself and the concept of palliative care in which they voluntarily excepted our services. I presented the patient's current status to the family and we had an extensive discussion about prognosis and what the patient would want if she could have input. The sisters and daughter were wanting comfort for the patient and were very saddened by the thought of losing Simona but no that she is suffering currently and wanted to end her suffering. Has been, Jeffrey, was having difficulty dealing with current situation. I did have a 2-hour discussion with the family offering support and discussing goals of care. Ultimately, they elected to transition to comfort care with compassionate liberation of the ventilator. Just after decision was made to Dr. Verma did enter the room I did indicate to him that family had made a decision about compassionately liberating the patient from the ventilator but he did present a different picture and offering of more procedures. He did recommend more time in which Jeffrey was enthusiastically a proponent of. Family is very excited about the prospect of healing in light of new information from Dr. Verma. He does plan to repeat the EGD and hopefully decompress the colon further by pushing the OG tube into the small bowel. I did update Dr. Livingston and RN. Family did want to change patient's CODE STATUS to DNR CC?a with intubation as they know that if her heart were to stop again the outcome would most nights likely be in their favor. All questions the family had were answered. Palliative care will continue to follow for goals of care conversations as clinical picture evolves. I did offer pastoral services in which they did request a jigger machine operator. I did contact pastor Acharya to facilitate contact with the jigger machine operator. 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 ED 09/09/2025 due to generalized weakness. She was evaluated by her GI doctor yesterday and had her Saw tube changed and was noted to have mild infection around the stoma site and was placed on Augmentin for 14 days. Reportedly patient today was feeling generally weak so called EMS to bring her to the ED because he was concerned she would fall, she developed slurred speech around the time EMS arrived. then provided history that for the past 2 or 3 weeks she had abdominal distention, pain, nausea and vomiting.. In the ED temp 97.7 which dropped to 93.2, heart rate 94 with a blood pressure of 63/53, respiratory rate 27 and pulse ox 95% on room air. Patient was a stroke called due to the slurred speech. CT head no acute process, CTA head and neck with no LVO however noted significant debris in the region of the esophageal stent. GI specimen negative for occult blood but given presentation unclear if this is reliable. White blood cell count 27.5, hemoglobin 5.3 down from 7.3 yesterday with a baseline of around 10. Platelet count 452 INR 1.3, troponin 52. TSH within normal limits, lipase within normal limits. CMP demonstrated potassium of 5.9, bicarb of 17.7 with a gap of 25, BUN 119 with a creatinine of 3.88 up from 3.21 yesterday with a baseline of around 2.5. Lactic acid found to be 10 and an ABG with a pH of 7.16. CTA of the chest showed tree-in-bud opacities generally located dependently in both lungs more pronounced in right lower lobe possibly inflammatory versus infectious. Esophageal fluid and stent also seen. CT of the abdomen pelvis with marked distention of colon and the stomach as well as numerous loops of small bowel which are fluid-filled and large amount of rectal stool. Percutaneous gastrostomy tube suspected to not in the stomach. Patient decompensated in the ED requiring mechanical ventilation and initiation of Levophed. She was started on broad-spectrum antibiotics and IV fluids and hospitalist contacted for admission to the ICU for septic shock and anemia. GI was contacted in the ED and will see in consultation. Patient evaluated with and daughter at bedside. Reportedly she has been having the abdominal distention and nausea and vomiting over the past couple of weeks but over the past day developed the generalized weakness. Her stool and emesis have been dark and almost black in color with no bright red blood. He reports she has a chronic cough but not necessarily changed, notes that last night he felt like she was breathing heavy and maybe had some shortness of breath. did confirm that patient does have stool output and that is not just liquid and has been having it during this period of time as well. Unable to obtain further history from patient's secondary to patient being intubated and sedated. This note was generated with Supramed dictation software. It may contain incorrect words, spelling, and punctuation that were not noted in checking the note before signing. Palliative Assessment Advanced Directive - Current Admission Advance Directive: Advance Directive ON ADMISSION - REFERENCE Do you have a Healthcare Yes 09/09/25 17:19 Living Will? Is a Healthcare Living Will Yes, It is scanned in 09/09/25 17:19 present in the medical record? Do you have a Healthcare Power Yes 09/09/25 17:19 of Outside Sales Engineer? Is a Healthcare Power of Yes, It is scanned in 09/09/25 17:19 Outside Sales Engineer present in the medical rec Do You Want Additional Declined 09/09/25 17:19 Information on Advanced Directives or Healthcare Proxy/DPOA comments: , Jeffrey Psychosocial/Spiritual Information Living situation/Marital status: Patient lives with her Geographic location: [place] Supports: Extensive family support Tenriism/Leeanne or spiritual preference: Patient is a nonpracticing Spiritism Spiritual distress: None identified by family Prior functional status: Patient's took care of her most of the time Assistive devices at home: Walker and wheelchair Cultrual issues: None Information about the patient as a person: 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 She has extensive family support. [place] spending time with family Symptoms Palliative performance scale: 10-20% Palliative prognostic index: 15.0 prognosis is very poor. Patient is currently intubated in multisystem organ failure. Dyspnea symptoms: Severe Constipation symptoms: Severe Nausea symptoms: Severe Vomiting symptoms: Severe Side Effects & Interventions: Difficult to assess as patient is intubated and on fentanyl. Above is per documentation in observation. Objective Data Objective Data Vital Signs: Vital Signs Temp Pulse Resp BP Pulse Ox O2 Del Method O2 Flow Rate 102.0 F H 110 H 28 H 133/72 H 95 Mechanical Ventilator 94 09/11/25 08:00 09/11/25 08:56 09/11/25 08:56 09/11/25 08:00 09/11/25 08:56 09/11/25 08:00 09/11/25 04:00 FiO2 50 09/11/25 08:56 Oxygen Flow Rate (L/min) 94 Oxygen Delivery Method Mechanical Ventilator Weight: 167 lb 1.766 oz Body Mass Index (BMI) 26.9 Intake & Output: Intake and Output for Last 24 Hours 09/09/25 09/10/25 09/11/25 23:59 22:59 23:59 Intake Total 6016.94 / 6194.24 84620.31 / 88658.73 3816.51 / 3816.51 Output Total 1575 / 1750 875 / 875 Balance 6016.94 / 6194.24 21080.31 / 17663.73 2941.51 / 2941.51 Lab / Micro Data Attestation: I reviewed the patient's lab results. Lab results narrative: Patient has slightly worse creatinine today at 2.84 versus 2.76 yesterday. She has received 2 units of PRBCs and hemoglobin is now 10.0. 09/11/25 04:58 09/11/25 04:58 Labs: Laboratory Results - last 24 hr 09/10/25 10:00: POC Glucose 101 09/10/25 10:44: POC Glucose 162 H 09/10/25 11:25: Hgb 9.9 L, Hct 30.5 L, Sodium 136, Potassium 5.6 H, Chloride 108, Carbon Dioxide 13.4 L, Anion Gap 15, BUN 94 H, Creatinine 2.75 H, Estim Creat Clear Calc 16.29 L, Est GFR (MDRD) Non-Af 17 L, BUN/Creatinine Ratio 34.3 H, Glucose 239 H, Lactic Acid 5.7 H*, Calcium 6.6 L 09/10/25 14:14: POC Glucose 108 H 09/10/25 14:47: POC Glucose 145 H 09/10/25 15:50: Lactic Acid 5.7 H* 09/10/25 16:10: POC Glucose 120 H 09/10/25 17:55: Sodium 136, Potassium 5.6 H, Chloride 107, Carbon Dioxide 15.3 L, Anion Gap 14, BUN 94 H, Creatinine 2.76 H, Estim Creat Clear Calc 16.23 L, Est GFR (MDRD) Non-Af 17 L, BUN/Creatinine Ratio 33.9 H, Glucose 88, Calcium 6.4 L* 09/11/25 00:15: Sodium 137, Potassium 5.5 H, Chloride 106, Carbon Dioxide 16.2 L, Anion Gap 15, BUN 92 H, Creatinine 2.83 H, Estim Creat Clear Calc 15.83 L, Est GFR (MDRD) Non-Af 17 L, BUN/Creatinine Ratio 32.4 H, Glucose 131 H, Calcium 6.8 L 09/11/25 01:29: POC Glucose 81 09/11/25 02:47: POC Glucose 97 09/11/25 04:58: WBC 21.2 H, RBC 3.16 L, Hgb 10.0 L, Hct 29.8 L, MCV 94.3, MCH 31.6, MCHC 33.6, RDW Std Deviation 53.7 H, RDW Coeff of Lee 15.7 H, Plt Count 162, MPV 10.2, Immature Gran % (Auto) 3.200 H, Neut % (Auto) 89.0 H, Lymph % (Auto) 3.4 L, Simpson % (Auto) 3.9, Eos % (Auto) 0.5, Baso % (Auto) 0.0, Absolute Neuts (auto) 18.9 H, Absolute Lymphs (auto) 0.71 L, Nucleated RBC % 0.8, Sodium 138, Potassium 5.5 H, Chloride 106, Carbon Dioxide 15.6 L, Anion Gap 16 H, BUN 90 H, Creatinine 2.84 H, Estim Creat Clear Calc 17.53 L, Est GFR (MDRD) Non-Af 17 L, BUN/Creatinine Ratio 31.7 H, Glucose 104 H, Calcium 6.7 L, Total Bilirubin 0.64, AST 762 H, ALT 839 H, Alkaline Phosphatase 54, Total Protein 3.9 L, Albumin 2.0 L, Globulin 1.9 L, Albumin/Globulin Ratio 1.1, Random Vancomycin 13.6 Micro: Microbiology 09/09/25 12:42 Sputum, Induced/Lukens Gram Stain - Final 09/09/25 12:42 Sputum, Induced/Lukens Respiratory Culture - Preliminary Yeast, not Jessi albicans 09/09/25 08:30 Nasal Secretion SARS-CoV-2 Antigen (Rapid) - Final 09/10/25 05:00 Urine Catheter - [place] Legionella Antigen - Final 09/10/25 05:00 Urine Catheter - [place] Streptococcus pneumoniae Antigen (M - Final Streptococcus pneumonia Ag 09/10/25 04:50 Nasal Secretion MRSA (PCR) - Final 09/09/25 17:35 Mucosa - Nasopharyngeal Respiratory Panel (PCR) - Final 09/09/25 10:46 Stool Stool Occult Blood (LIZ) - Final ABG Data ABG results: ABG 09/11/25 05:48 Specimen Type ART Sample Site L Radial pH 7.46 H Bicarbonate Actual 15.0 L Total CO2 16 Base Excess -9 L O2 Saturation 96 O2 % 50.0 ABG pCO2 21.3 L ABG pO2 74 L Gaudencio Test N/A Respiration Rate 28 O2 Delivery Device Adult Vent Vent Mode AC Tidal Volume 450.0 POC PEEP 5 Attestation: I personally reviewed and interpreted this ABG as follows: Impressions & Recommendations Patient & Family Issues discussed with the patient and family: Compassionate liberation from the ventilator versus aggressive medical management Patient goal: Patient is unable to participate Family goal: Initially family was considering compassionate liberation from the ventilator and allow for natural but that has now changed to given new circumstances and they are wanting continued aggressive medical management at this time. Ethical & Legal Ethical and legal: Patient is unable to make decisions for herself and is relying on POA's Impressions Impressions: Patient is critically ill. Recommentation Palliative recommendations: Recommended DNR CC?a, recommend following family lead with continued goals of care conversations as clinical picture evolves. Encouter Achieved as a result of this Palliative Care Encounter: [[id number], [id number], [phone] ] minutes were spent in total for this visit which consisted, primarily of counseling and education dealing with the complex and emotionally intense issues of symptom management and palliative care in the setting of serious and potentially life-threatening illness. Review of documentation, labs and radiological studies. ?Patient/family had the opportunity to ask questions Plan (1) Septic shock: PLAN: Medical management per primary team (2) Aspiration pneumonia: PLAN: Medical management per primary team (3) Colonic obstruction: PLAN: Medical management per primary team (4) Acute blood loss anemia: PLAN: Medical management per primary team (5) CITLALY (acute kidney injury): PLAN: Medical management per primary team (6) Goals of care, counseling/discussion: PLAN: *Family would like to give the patient more time before making any further decisions *CODE STATUS changed to DNR CC?a with intubation (7) Palliative care encounter: PLAN: *Family meeting to discuss goals of care going forward *Palliative care will continue to follow for goals of care conversations as clinical picture evolves
[2025-09-11] MEDS: Piperacil/Tazobactam 3.375 GM in 0.9% Normal Saline (50mL MB+) 50 ML IV ×2 (09:46→22:05)
[2025-09-11] MEDS: TITRATION PARAMETER CHANGE 1 EACH IV (11:04)
--- NOTE | 2025-09-11 11:51 | PCM.PN.REN ---
Subjective Subjective on vent Objective Data Objective Data Vital Signs: Vital Signs Temp Pulse Resp BP Pulse Ox O2 Del Method O2 Flow Rate 102.4 F H 108 H 28 H 131/76 H 95 Mechanical Ventilator 94 09/11/25 11:00 09/11/25 11:15 09/11/25 11:15 09/11/25 11:00 09/11/25 11:15 09/11/25 11:00 09/11/25 04:00 FiO2 50 09/11/25 11:15 Oxygen Flow Rate (L/min) 94 Oxygen Delivery Method Mechanical Ventilator Weight: 75.8 kg Body Mass Index (BMI) 26.9 Intake & Output: Intake and Output for Last 24 Hours 09/09/25 09/10/25 09/11/25 23:59 22:59 23:59 Intake Total 6016.94 / 6194.24 17084.31 / 43086.73 4535.57 / 4535.57 Output Total 1575 / 1750 1425 / 1425 Balance 6016.94 / 6194.24 02693.31 / 57377.73 3110.57 / 3110.57 Lab / Micro Data 09/11/25 04:58 09/11/25 04:58 Labs: Laboratory Results - last 24 hr 09/10/25 11:25: Sodium 136, Potassium 5.6 H, Chloride 108, Carbon Dioxide 13.4 L, Anion Gap 15, BUN 94 H, Creatinine 2.75 H, Estim Creat Clear Calc 16.29 L, Est GFR (MDRD) Non-Af 17 L, BUN/Creatinine Ratio 34.3 H, Glucose 239 H, Lactic Acid 5.7 H*, Calcium 6.6 L 09/10/25 14:14: POC Glucose 108 H 09/10/25 14:47: POC Glucose 145 H 09/10/25 15:50: Lactic Acid 5.7 H* 09/10/25 16:10: POC Glucose 120 H 09/10/25 17:55: Sodium 136, Potassium 5.6 H, Chloride 107, Carbon Dioxide 15.3 L, Anion Gap 14, BUN 94 H, Creatinine 2.76 H, Estim Creat Clear Calc 16.23 L, Est GFR (MDRD) Non-Af 17 L, BUN/Creatinine Ratio 33.9 H, Glucose 88, Calcium 6.4 L* 09/11/25 00:15: Sodium 137, Potassium 5.5 H, Chloride 106, Carbon Dioxide 16.2 L, Anion Gap 15, BUN 92 H, Creatinine 2.83 H, Estim Creat Clear Calc 15.83 L, Est GFR (MDRD) Non-Af 17 L, BUN/Creatinine Ratio 32.4 H, Glucose 131 H, Calcium 6.8 L 09/11/25 01:29: POC Glucose 81 09/11/25 02:47: POC Glucose 97 09/11/25 04:58: WBC 21.2 H, RBC 3.16 L, Hgb 10.0 L, Hct 29.8 L, MCV 94.3, MCH 31.6, MCHC 33.6, RDW Std Deviation 53.7 H, RDW Coeff of Lee 15.7 H, Plt Count 162, MPV 10.2, Immature Gran % (Auto) 3.200 H, Neut % (Auto) 89.0 H, Lymph % (Auto) 3.4 L, [place] % (Auto) 3.9, Eos % (Auto) 0.5, Baso % (Auto) 0.0, Absolute Neuts (auto) 18.9 H, Absolute Lymphs (auto) 0.71 L, Nucleated RBC % 0.8, Sodium 138, Potassium 5.5 H, Chloride 106, Carbon Dioxide 15.6 L, Anion Gap 16 H, BUN 90 H, Creatinine 2.84 H, Estim Creat Clear Calc 17.53 L, Est GFR (MDRD) Non-Af 17 L, BUN/Creatinine Ratio 31.7 H, Glucose 104 H, Calcium 6.7 L, Total Bilirubin 0.64, AST 762 H, ALT 839 H, Alkaline Phosphatase 54, Total Protein 3.9 L, Albumin 2.0 L, Globulin 1.9 L, Albumin/Globulin Ratio 1.1, Random Vancomycin 13.6 Micro: Microbiology 09/09/25 12:42 Sputum, Induced/Lukens Gram Stain - Final 09/09/25 12:42 Sputum, Induced/Lukens Respiratory Culture - Preliminary Yeast, not Jessi albicans 09/09/25 08:30 Nasal Secretion SARS-CoV-2 Antigen (Rapid) - Final 09/10/25 05:00 Urine Catheter - Bhardwaj Legionella Antigen - Final 09/10/25 05:00 Urine Catheter - Bhardwaj Streptococcus pneumoniae Antigen (M - Final Streptococcus pneumonia Ag 09/10/25 04:50 Nasal Secretion MRSA (PCR) - Final 09/09/25 17:35 Mucosa - Nasopharyngeal Respiratory Panel (PCR) - Final 09/09/25 10:46 Stool Stool Occult Blood (LIZ) - Final ABG Data ABG results: ABG 09/11/25 05:48 Specimen Type ART Sample Site L Radial pH 7.46 H Bicarbonate Actual 15.0 L Total CO2 16 Base Excess -9 L O2 Saturation 96 O2 % 50.0 ABG pCO2 21.3 L ABG pO2 74 L Gaudencio Test N/A Respiration Rate 28 O2 Delivery Device Adult Vent Vent Mode AC Tidal Volume 450.0 POC PEEP 5 Physical Exam Narrative no JVD s1s2 no murmurs lungs clear abdomen soft no edema no cyanosis bhardwaj + clear yellow urine Assessment & Plan Assessment/Plan (1) CITLALY (acute kidney injury): PLAN: History of CKD stage IIIb/IV. Baseline creatinine is around 2-2.2 although she fluctuates widely due to volume status. History of secondary/tertiary hyperparathyroidism, on Sensipar Now admitted with severe septic shock. Pneumonia. Lactic acidosis. She is currently on 4 pressors. Hyperkalemia (K+5.5) is likely related to acidosis, received hyperkalemia protocol this am. On bicarbonate drip. On maximum supportive treatment at this time. Due to low blood pressure despite being on multiple pressors, doubt she will tolerate CRRT or any type of dialysis and this was communicated with her . Family not in room, currently meeting with Palliative to assist with GOC. 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 SCr peak 3.88 09/09--> today SCr 2.84, K+ 5.5, bicrab 15, Urine output 1.4L yesterday. Documented net positive 21 L for this hospitalization. We will continue to follow. Assessment and plan reviewed with Dr. Abrams.
--- NOTE | 2025-09-11 12:06 | CHAPLAIN ---
Type of Pastoral Visit _x__ Initial Visit ___ Follow-up Visit ___ On-call Visit ___ General Patient Visit ___ Spiritual Assessment ___ Family Conference ___ Bereavement ___ Rapid Response ___ Code Blue ___ Other (describe below) Pastoral Care Referral From ___ Patient _x__ Family ___ Nurse ___ Physician ___ Butcher Helper ___ Second Language Tutor ___ Other (describe below) Sacrament/Intervention _x__ Active listening ___ Anointing ___ Pentecostal ___ Bereavement ___ Communion ___ Leeanne exploration ___ ___ Life review _x__ Prayer ___ Reconciliation ___ Sacrament of Sick _x__ Supportive presence ___ Wedding ___ Other (describe below) Pastoral Comments patient is intubated but opens her eyes when spoken to; many family members are gathered in the waiting room and are currently meeting with Palliative Care and several medical personnel to discuss options for patient; one family member was in the room with patient and so this manager mobility went there to offer support; family member gives more information on their relationship and what is being decided; welcome to offer prayer and support to pt is given; offer of ongoing support to family is made
[2025-09-11] MEDS: 0.9% Saline Lock 10 ML Syringe IV ×2 (12:33→23:09)
--- NOTE | 2025-09-11 13:21 | PCM.CONS.GEN ---
Assessment & Plan Assessment/Plan (1) Septic shock: PLAN: Spneumo Ag (+). Sputum with some yeast. Cont to have high pressor requirements, fever. Bcx neg so far. Cont empiric vanc, zosyn, micafungin. Palliative care, GI, and neph following. D/w Dr. Livingston. Will follow, thank you (2) Aspiration pneumonia: (3) CITLALY (acute kidney injury): HPI Consult Data Date of Consult: 09/11/25 HPI Narrative Reason for Consultation: septic shock HPI Narrative: SIMONA HERNANDEZ, is a 75 F who presented to [facility] 09/08/25 with acute onset weakness, n/v. Had been having some drainage around stoma with 2-3 weeks progressive abd pain, nausea. Stroke alert called due to slurred speech. Admitted to icu on pressors, vent. Currently on vanc, zosyn, micafungin. ROS and history unobtainable from patient due to mental status and intubation. [facility] Medical History Aspiration pneumonia Cough History of pain when walking History of Clostridium difficile infection Arthritis History of renal disease History of echocardiogram History of Mohs micrographic surgery for skin cancer Acute uremia Anemia History of jejunostomy tube placement Alzheimer disease Iron deficiency anemia Dysphagia History of gastrostomy tube placement Acute renal insufficiency Gastric paresis Anemia, unspecified Stenosis of esophagus Erosive esophagitis UTI (urinary tract infection) Gram-negative bacteremia Severe malnutrition Severe malnutrition Severe dehydration Wears glasses Post-menopausal Bipolar disorder Diabetes insipidus Thyroid disease Bladder disease Back pain Dietary restriction History of hiatal hernia Gastric reflux Former smoker Generalized weakness Unsteady gait Gastroparesis Nondiabetic gastroparesis Dysphagia GI bleed Tardive [place] History of herpes zoster Hypertension Delirium due to multiple etiologies Hypercalcemia Hypernatremia Secondary hyperparathyroidism of renal origin Bipolar disorder with moderate depression Pulmonary emboli Anemia Anxiety Difficulty chewing Bipolar disorder Home Medications ?Medication ?Instructions ?Recorded ?Last Taken ?Type methimazole 5 mg tablet 5 mg feeding tube MOTUWETHFR 10/04/20 01/14/23 History Thyroid denosumab 60 mg/mL subcutaneous 60 mg subcut .Q6MO osteoporosis 09/05/22 08/27/22 History syringe (Prolia) polyethylene glycol 3350 17 17 g PO DAILY PRN constipation 09/05/22 09/05/22 History gram/dose oral powder (Miralax) lamotrigine 100 mg tablet 200 mg feeding tube DAILY Bipolar 03/19/23 07/15/24 History Disorder memantine 10 mg tablet 10 mg feeding tube DAILY Check 04/20/23 07/15/24 History with primary doctor lorazepam 2 mg tablet 2 mg PO 4X/DAY PRN anxiety 06/11/23 08/02/25 History estradiol 0.01% (0.1 mg/gram) 1 applic vaginal .3 TIMES WEEKLY 04/06/24 Unknown History vaginal cream ferrous sulfate 325 mg (65 mg 325 mg PO DAILY SUPPLEMENT 04/06/24 Unknown History iron) tablet nutritional supplements 0.06 948 ml feeding tube QHS 07/04/24 Unknown History gram-1.2 kcal/mL oral liquid (Osmolite 1.2 Mp) acetaminophen 650 mg/20.3 mL oral 650 mg (20.3 mL) G-tube Q6H PRN 07/10/24 Unknown Rx solution PRN Pain 1-10 Or Fever #0 mL cinacalcet 30 mg tablet 30 mg PO SUMOTUWETHFR 07/13/24 Unknown History cholecalciferol (vitamin D3) 50 100 mcg (2 x 50 mcg (2,000 unit)) 01/04/25 Unknown Rx mcg (2,000 unit) capsule PO DAILY #60 caps scopolamine base 1 mg over 3 days 1 patch transdermal Q3D #10 ea 04/26/25 08/02/25 Rx transdermal patch lansoprazole 30 mg capsule,delayed 30 mg PO BID #60 caps 05/05/25 08/02/25 Rx release oxybutynin chloride 15 mg 15 mg PO DAILY Overactive bladder 06/12/25 08/01/25 Rx tablet,extended release 24 hr #90 tabs docusate sodium 100 mg capsule 100 mg PO DAILY 07/27/25 Unknown History (Colace) glycopyrrolate 2 mg tablet 2 mg feeding tube BID secretions 07/27/25 Unknown History ondansetron HCl 4 mg tablet 4 - 8 mg feeding tube Q6H PRN PRN 07/27/25 Unknown History for nausea/vomiting amoxicillin 875 mg-potassium 1 tab PO Q12H 14 days #28 tabs 09/06/25 Unknown Rx clavulanate 125 mg tablet neomycin-bacitracn Zn-polymyx 3.5 1 applic topical TID #30 grams 09/06/25 Unknown Rx mg-400 unit-5,000 unit/gram top oint Allergy/AdvReac Type Severity Reaction Status Date / Time No Known Allergies Allergy Verified 09/09/25 10:23 Family History Father CVA (cerebral vascular accident) Sister CVA (cerebral vascular accident) Cancer Surgical History History of esophagogastroduodenoscopy (EGD) History of esophagogastroduodenoscopy (EGD) Hx of esophagogastroduodenoscopy Social History household members: spouse housing: house Smoking Status: Former smoker Tobacco: How many years used: 4 second hand exposure: Yes alcohol intake: never substance use type: does not use what type of physical activity do you participate in: other details: OT PT - [facility] IN [place] frequency: daily valentina/mu-ism: Anglican seatbelt use: always additional social history: Ambulates at baseline without assistive device Physical Exam Narrative ill appearing HEENT normocephalic and head/scalp atraumatic Eyes PERRL Neck supple Resp Effort and Inspection: mechanically ventilated Auscultation: diminished lung sounds Cardio Rate: tachycardic GI soft to palpation; Negative for non-distended Extremity General Extremity: edema Skin no rashes or lesions noted Neuro Neuro Narrative: intubated, sedated Lab / Micro Data 09/11/25 04:58 09/11/25 04:58 Labs: Laboratory Results - last 24 hr 09/10/25 14:14: POC Glucose 108 H 09/10/25 14:47: POC Glucose 145 H 09/10/25 15:50: Lactic Acid 5.7 H* 09/10/25 16:10: POC Glucose 120 H 09/10/25 17:55: Sodium 136, Potassium 5.6 H, Chloride 107, Carbon Dioxide 15.3 L, Anion Gap 14, BUN 94 H, Creatinine 2.76 H, Estim Creat Clear Calc 16.23 L, Est GFR (MDRD) Non-Af 17 L, BUN/Creatinine Ratio 33.9 H, Glucose 88, Calcium 6.4 L* 09/11/25 00:15: Sodium 137, Potassium 5.5 H, Chloride 106, Carbon Dioxide 16.2 L, Anion Gap 15, BUN 92 H, Creatinine 2.83 H, Estim Creat Clear Calc 15.83 L, Est GFR (MDRD) Non-Af 17 L, BUN/Creatinine Ratio 32.4 H, Glucose 131 H, Calcium 6.8 L 09/11/25 01:29: POC Glucose 81 09/11/25 02:47: POC Glucose 97 09/11/25 04:58: WBC 21.2 H, RBC 3.16 L, Hgb 10.0 L, Hct 29.8 L, MCV 94.3, MCH 31.6, MCHC 33.6, RDW Std Deviation 53.7 H, RDW Coeff of Lee 15.7 H, Plt Count 162, MPV 10.2, Immature Gran % (Auto) 3.200 H, Neut % (Auto) 89.0 H, Lymph % (Auto) 3.4 L, Crisp % (Auto) 3.9, Eos % (Auto) 0.5, Baso % (Auto) 0.0, Absolute Neuts (auto) 18.9 H, Absolute Lymphs (auto) 0.71 L, Nucleated RBC % 0.8, Sodium 138, Potassium 5.5 H, Chloride 106, Carbon Dioxide 15.6 L, Anion Gap 16 H, BUN 90 H, Creatinine 2.84 H, Estim Creat Clear Calc 17.53 L, Est GFR (MDRD) Non-Af 17 L, BUN/Creatinine Ratio 31.7 H, Glucose 104 H, Calcium 6.7 L, Total Bilirubin 0.64, AST 762 H, ALT 839 H, Alkaline Phosphatase 54, Total Protein 3.9 L, Albumin 2.0 L, Globulin 1.9 L, Albumin/Globulin Ratio 1.1, Random Vancomycin 13.6 Micro: Microbiology 09/09/25 12:42 Sputum, Induced/Lukens Gram Stain - Final 09/09/25 12:42 Sputum, Induced/Lukens Respiratory Culture - Preliminary Yeast, not Jessi albicans 09/09/25 08:30 Nasal Secretion SARS-CoV-2 Antigen (Rapid) - Final ABG Data ABG results: ABG 09/11/25 05:48 Specimen Type ART Sample Site L Radial pH 7.46 H Bicarbonate Actual 15.0 L Total CO2 16 Base Excess -9 L O2 Saturation 96 O2 % 50.0 ABG pCO2 21.3 L ABG pO2 74 L Gaudencio Test N/A Respiration Rate 28 O2 Delivery Device Adult Vent Vent Mode AC Tidal Volume 450.0 POC PEEP 5
--- NOTE | 2025-09-11 17:15 | RAD_ITS ---
PROCEDURE: RAD/Abdomen Single View (Portable)
--- NOTE | 2025-09-11 17:17 | PCM.PN.BLA ---
Progress Note I had a long talk with the family. The plan is to reposition the rectal tube and see if we can decompress the colon because she is behaving like a colonic obstruction at this time with so much output from above. Physical Exam Narrative General: Intubated and sedated HEENT: normocephalic Eyes: Eyes closed Neck: Supple Respiratory: Mechanically ventilated Cardiovascular: Regular rate and rhythm GI: +distended Musculoskeletal: Presently sedated and not moving extremities spontaneously Neuro: Unable to participate in neuro exam secondary to intubated and sedated Psych: Unable to cooperate secondary to intubated and sedated Assessment & Plan Assessment/Plan (1) Colonic obstruction: (2) Acute blood loss anemia: (3) Septic shock: (4) Aspiration pneumonia: (5) Abdominal pain: (6) CITLALY (acute kidney injury): PLAN: Assessment Acute respiratory failure:?Ongoing, secondary to likely aspiration pneumonia; currently intubated and sedated. Septic shock:?Ongoing, requiring significant cardiovascular support with 5 total medications . GI bleed:?Status post EGD with successful control of bleeding. Massively distended colon:?Stat abdominal x-ray Cardiac arrest:?Experienced overnight, etiology likely multifactorial given critical status . Clinical Status:?Critically ill, unstable, requiring maximal support . Plan Continue current management for septic shock, including titration of pressors as needed for adequate perfusion (currently on 4, adding a 5th agent) . Continue mechanical ventilation and sedation; monitor respiratory status closely . We will perform decompressive colonoscopy with placement of rectal tube to hopefully improve her gastric output. Continue close monitoring in the ICU setting. Family at bedside: Continue to provide updates to the family regarding the patient's critical condition, recent cardiac arrest, and poor prognosis? Visit Charges Inpatient E&M: 88535 Subs Hosp L3
[2025-09-11] MEDS: Midazolam 2 MG/2 ML Syringe IV ×2 (17:47→17:54)
--- NOTE | 2025-09-11 19:05 | OP.COLON_ITS ---
Patient Name: Fior Escamilla
[2025-09-12] VITALS (27 sets, daily range): BP systolic 67–138; BP diastolic 40–108; PULSE 79–94; RESP 16–28; TEMP 38–38.4; O2SAT 91–96; BMI 28.0
[2025-09-12] MEDS: Sodium Bicarbonate 150 MEQ in Dextrose 5%-Water (1000mL Bag) 1,000 ML 100 MEQ IV (00:04)
[2025-09-12] MEDS: Amiodarone 360 MG in Dextrose 5% Viaflo Bag 192.8 ML 16.7 MG CONT INF (00:05)
[2025-09-12] MEDS: Pantoprazole Sodium 80 MG in 0.9% Normal Saline (100mL Bag) 80 ML 10 MG CONT INF ×2 (00:05→09:30)
[2025-09-12] MEDS: PHENYLEPHRINE CONT INF ×3 (02:00→09:31)
[2025-09-12] MEDS: NORMAL SALINE 0.9% CONT INF ×3 (02:00→09:31)
[2025-09-12] MEDS: Norepinephrine 8 MG in 0.9% Normal Saline (250mL Bag) 242 ML 56.3 ML IV ×2 (03:33→08:00)
[2025-09-12 04:22] LABS: Hematocrit 25.9 % (37-47); Hemoglobin 8.8 g/dL (12.0-15.0); Immature Granulocytes Count 0.930 X10^3/uL (0.0-0.0); Mean Corp Hgb Conc 34.0 g/dL (32-36); Mean Corpuscular Volume 92.2 fL (81-99); Mean Platelet Vol. 11.0 fl (6.2-12.0); NRBC Flagged by Analyzer 1.1 % (0-5); POSITIVE DIFFERENTIAL YES; POSITIVE MORPHOLOGY YES; Platelet Count 109 K/mm3 (150-450); RBC Distribution Width CV 15.8 % (11.6-14.6); RBC Distribution Width SD 52.1 fl (35.1-43.9); Red Blood Count 2.81 M/mm3 (4.2-5.4); White Blood Count 24.5 K/mm3 (4.4-11.0)
[2025-09-12 04:25] LABS: Differential Indicated SCAN CRITERIA MET
[2025-09-12] MEDS: 0.9% Saline Lock 10 ML Syringe IV (04:56)
[2025-09-12] MEDS: Vasopressin 20 UNITS in 0.9% Normal Saline (50mL Bag) 24 ML 3 UNITS CONT INF (04:57)
[2025-09-12 05:02] LABS: AST(SGOT) 1069 U/L (<=31); Alanine Aminotransfer ALT/SGPT 1190 U/L (<=34); Albumin, Serum 1.6 g/dL (3.4-4.8); Alkaline Phosphatase 105 U/L (35-104); Anion Gap 16 (5-15); BUN 83 mg/dL (4-19); BUN/Creat Ratio 29.1 RATIO (10-20); Calcium,Total 5.6 mg/dL (7.6-11.0); Carbon Dioxide 18.9 mmol/L (21.0-32.0); Chloride 105 mmol/L (98-108); Estimated Creatinine Clearance 17.71 ml/min (50-250); Globulin 2.0 g/dL (2.2-4.2); Glucose 129 mg/dL (70-99); Potassium 4.9 mmol/L (3.3-5.1)
[2025-09-12 05:24] LABS: Toxic Granulation 1+; Vacuolated Cells 1+
[2025-09-12 05:26] LABS: Acanthocytes RARE; Anisocytosis 1+; Bite Cell RARE; Polychromasia 1+
[2025-09-12] MEDS: fentaNYL drip 100 ML 10 MCG CONT INF (06:00)
--- NOTE | 2025-09-12 07:32 | PCM.PN.INT ---
Assessment & Plan Assessment/Plan (1) Septic shock: PLAN: Plan RECOMMENDATIONS: 1. Continue assist-control mode of mechanical ventilation. Continue to wean FiO2 and PEEP as tolerated. 2. Continue vasopressor support along with stress dose steroids in an attempt to maintain hemodynamic stability. 3. Continue current sedation regimen. Goal to maintain RASS of -1 to 1. 4. Will defer sodium bicarbonate infusion to nephrology. 5. Continue PPI therapy. 6. Continue to monitor blood counts and transfuse if hemoglobin drops below 7 g/dL. 7. Ongoing goals of care discussion with the patient's family. Recommend initiation of hospice care services. IMPRESSIONS: 1. Refractory septic shock Clinical concern for streptococcal pneumonia with superimposed aspiration of gastric contents suspected, coupled with possible ischemic colitis. The patient is currently in refractory septic shock requiring multi vasopressor agents in an attempt to maintain hemodynamic stability. She has significant multisystem organ failure. Plan to continue supportive care with vasopressors in an attempt to maintain a mean arterial pressure at or above 65 mmHg along with antimicrobials, as ordered. In addition, stress dose steroids will be continued. Overall, the patient's prognosis is extremely poor. 2. Acute hypoxemic respiratory failure Most likely secondary to streptococcal pneumonia coupled with inability to compensate for increased metabolic demands in the setting of septic shock and cardiac arrest. The patient will be continued on assist-control mode of mechanical ventilation with a goal to wean FiO2 and PEEP to maintain saturations at or above 90%. The patient is significantly volume overloaded. However, diuretics are not able to be considered in light of the patient's significant hemodynamic instability. 3. Massive gastric distention with megacolon and concern for possible ischemic colitis The patient has been followed by gastroenterology with attempts at decompressive colonoscopy. The patient is not deemed to be a surgical candidate. Therefore, we will continue current supportive care, while engaging the patient's family and goals of care discussion. 4. Acute on chronic kidney disease Most likely prerenal in etiology with suspected evolution to ATN in the setting of septic shock. The patient would likely be unable to tolerate any form of hemodialysis support. Will defer ongoing need for sodium bicarbonate infusion to nephrology, who is following to assist with medical management. 5. Ischemic hepatitis Secondary to endorgan tissue hypoperfusion in the setting of #1. Continue supportive care. 6. Acute blood loss anemia secondary to erosive esophagitis The patient underwent a scopic evaluation on November 2 which revealed severe erosive esophagitis with bleeding which was treated with APC. Plan to continue PPI therapy. Continue to monitor blood counts. Transfuse if hemoglobin drops below 7 g/dL. 7. NSTEMI/atrial fibrillation with RVR/status post cardiac arrest Again, most likely secondary to demand ischemia in the setting of #1. Repeat echocardiogram is currently pending. 8. Misplaced gastrostomy/Saw tube/history of GERD/history of esophageal stent Continue current supportive care. On EGD, PEG tube was apparently noted to be normal-appearing. TIME: 38 minutes of critical care time, independent of procedures, was spent addressing the patient's refractory septic shock, acute hypoxemic respiratory failure, acute on chronic kidney disease, ischemic hepatitis, acute blood loss anemia, NSTEMI, atrial fibrillation, review of all data and collaboration with the care team. Subjective Subjective The patient was seen and examined at the bedside this morning. Events from the last 24 hours have been reviewed. The patient was seen in consultation yesterday by palliative care medicine with subsequent transition to DNR CCA. In addition, gastroenterology performed an additional colonoscopy, which continued to demonstrate colonic dilation with redundant colon along with mucosal ulceration. The patient remains on Levophed, vasopressin, phenylephrine and stress dose steroids. She is significantly volume overloaded for the hospitalization. White blood cell count is elevated at 24,000. Hemoglobin was noted to be 8.8 g/dL with a platelet count of 109,000. In light of the patient's current clinical status and concern for ischemic colitis, general surgery did speak directly with the patient's this morning and conveyed to him that the patient is not a surgical candidate or any form of intervention. Objective Data Objective Data The patient's most recent lab work, culture data and imaging studies have all been personally reviewed. Surface echocardiogram from March 2023 demonstrated normal LV size with an ejection fraction of 65% and a right ventricular systolic pressure of 55 mmHg. Pneumococcal urinary antigen was positive on September 10. Sputum culture was positive for yeast. Respiratory viral panel was negative. Vital Signs: Vital Signs Temp Pulse Resp BP Pulse Ox O2 Del Method O2 Flow Rate 100.9 F H 87 28 H 132/81 H 96 Mechanical Ventilator 50 09/12/25 07:00 09/12/25 07:11 09/12/25 07:11 09/12/25 07:00 09/12/25 07:11 09/12/25 07:00 09/11/25 21:00 FiO2 50 09/12/25 07:11 Oxygen Flow Rate (L/min) 50 Oxygen Delivery Method Mechanical Ventilator Weight: 174 lb 9.698 oz Body Mass Index (BMI) 28.0 Intake & Output: Intake and Output for Last 24 Hours 09/10/25 09/11/25 09/12/25 22:59 23:59 23:59 Intake Total 58519.31 / 20777.73 8207.69 / 8336.49 1722.34 / 1722.34 Output Total 1575 / 1750 2575 / 2575 450 / 450 Balance 86578.31 / 29223.73 5632.69 / 5761.49 1272.34 / 1272.34 Lab / Micro Data Attestation: I reviewed the patient's lab results. 09/12/25 04:13 09/12/25 04:13 Labs: Laboratory Results - last 24 hr 09/12/25 04:13: WBC 24.5 H, RBC 2.81 L, Hgb 8.8 L, Hct 25.9 L, MCV 92.2, MCH 31.3, MCHC 34.0, RDW Std Deviation 52.1 H, RDW Coeff of Lee 15.8 H, Plt Count 109 L, MPV 11.0, Immature Gran % (Auto) 3.800 H, Neut % (Auto) 90.7 H, Lymph % (Auto) 2.4 L, Platte % (Auto) 2.3, Eos % (Auto) 0.8, Baso % (Auto) 0.0, Absolute Neuts (auto) 22.2 H, Absolute Lymphs (auto) 0.59 L, Nucleated RBC % 1.1, Toxic Granulation 1+, Toxic Vacuolation 1+, Platelet Estimate SLT DEC, Polychromasia 1+, Anisocytosis 1+, Ovalocytes 1+, Bite Cells RARE, Acanthocytes (Spur) RARE, Sodium 139, Potassium 4.9, Chloride 105, Carbon Dioxide 18.9 L, Anion Gap 16 H, BUN 83 H, Creatinine 2.87 H, Estim Creat Clear Calc 17.71 L, Est GFR (MDRD) Non-Af 16 L, BUN/Creatinine Ratio 29.1 H, Glucose 129 H, Calcium 5.6 L*, Total Bilirubin 0.59, AST 1069 H, ALT 1190 H, Alkaline Phosphatase 105 H, Total Protein 3.6 L, Albumin 1.6 L, Globulin 2.0 L, Albumin/Globulin Ratio 0.8 L Micro: Microbiology 09/09/25 11:35 Blood Culture (Wb) - Right Hand Blood Culture - Preliminary No growth in 48 hours. 09/09/25 11:15 Blood Culture (Wb) - Anticubital Right Blood Culture - Preliminary No growth in 48 hours. 09/09/25 12:42 Sputum, Induced/Lukens Gram Stain - Final 09/09/25 12:42 Sputum, Induced/Lukens Respiratory Culture - Final Yeast, not Jessi albicans Yeast, not Jessi albicans#2 09/09/25 08:30 Nasal Secretion SARS-CoV-2 Antigen (Rapid) - Final 09/10/25 05:00 Urine Catheter - [place] Legionella Antigen - Final 09/10/25 05:00 Urine Catheter - [place] Streptococcus pneumoniae Antigen (M - Final Streptococcus pneumonia Ag 09/10/25 04:50 Nasal Secretion MRSA (PCR) - Final 09/09/25 17:35 Mucosa - Nasopharyngeal Respiratory Panel (PCR) - Final 09/09/25 10:46 Stool Stool Occult Blood (LIZ) - Final Radiography Diagnostic Testing: Radiology Impression KUB X-Ray 09/11/25 17:15 IMPRESSION: Support lines/tubes as above. Marked distal colonic stool burden and with proximal gaseous distention, similar appearance to the recent CT exam. Fecal disimpaction is recommended. Reading Location: [facility] Physical Exam Const Constitutional Narrative: Intubated, sedated and mechanically ventilated. General Appearance: ill appearing Positive for acutely and patient mechanically ventilated HEENT normocephalic and head/scalp atraumatic Mouth: endotracheal tube in place and OG tube in place Eyes EOMs intact bilaterally and conjunctivae normal Neck supple General: trachea midline and CVC in place Chest inspection of chest normal Resp normal respiratory effort Auscultation: diminished lung sounds Cardio S1 normal heart sound and S2 normal heart sound Rate: tachycardic GI soft to palpation Inspection: abdominal distention Extremity General Extremity: Negative for clubbing or edema Skin no rashes or lesions noted Neuro Neuro Narrative: Opens eyes to verbal stimulation. Does not follow any commands. Sensorium / Orientation: sedated on vent Charges/Coding Procedures Hospitalists Procedures: [id number] Critical Care 1st Hr
[2025-09-12] MEDS: Chlorhexidine 15 ML PO (08:03)
[2025-09-12 08:33] LABS: Allen Test Positive; Base Excess -6 mmol/L (-2 to +2); FI02 50.0; PEEP 5; PO2 72 mmHG (75-100); RR 28; SITE R Radial; SO2 97 % (94-98); Time Given 07:06:32
[2025-09-12] MEDS: Micafungin Sodium 100 MG in Dextrose 5%-Water (100mL Bag) 100 ML IV (09:35)
[2025-09-12] MEDS: Piperacil/Tazobactam 3.375 GM in 0.9% Normal Saline (50mL MB+) 50 ML IV (09:37)
--- NOTE | 2025-09-12 09:52 | CASEMGMT ---
Per ICU rounds, physician is looking into possible hospice for the pt pending family discussions. CM and SW remain available for referrals as needed.
--- NOTE | 2025-09-12 10:05 | NURSING ---
Dr. Saavedra and Dr. Livingston spoke with and other family members regarding plan of care and critical status with no further options available. Family has decided on comfort care and Dr. Livingston stated he will place orders. They would like to wait till other family members get to hospital.
--- NOTE | 2025-09-12 10:08 | PCM.PN.BLA ---
Progress Note I was notified by nursing staff this morning that the patient's family was requesting terminal extubation and initiation of comfort care measures. I met and personally spoke with the patient's at the bedside, who is in agreement to proceed with palliative extubation and initiation of comfort care measures. They have requested a senior art director to the bedside. CODE STATUS will be updated to DNR CC, per request. Comfort medications will be provided when the patient's family is ready for extubation. [facility] will be notified.
--- NOTE | 2025-09-12 10:08 | NURSING ---
Rn spoke with Chaplain Acharya who is calling in a tipping machine operator per family request.
--- NOTE | 2025-09-12 10:26 | NURSING ---
1025: [facility] notified of terminal wean. [facility] wants notified of patient time of .
--- NOTE | 2025-09-12 10:51 | NURSING ---
1051: Lactation Specialist at bedside with patients family
--- NOTE | 2025-09-12 12:00 | NURSING ---
Family ready for extubation. Comfort medications administered and patient extubated by respiratory. Restraints removed and medication drips stopped. Family members welcomed back into the room.
--- NOTE | 2025-09-12 12:49 | EXP.PCM_ITS ---
Preliminary Cause of
--- NOTE | 2025-09-12 12:49 | PCM.DEATH ---
Preliminary Cause of Preliminary Cause of Preliminary Cause of : ischemic bowel Date of Admission: 09/09/25 Date of : 09/12/25 Principle Diagnosis Problem List: Active and Suspected Problems (Updated 09/11/25 @ 13:25 by Pina Harrison NP-C) Abdominal pain (Acute) Acute blood loss anemia (Acute) CITLALY (acute kidney injury) (Acute) Aspiration pneumonia (Acute) Colonic obstruction (Acute) Goals of care, counseling/discussion (Acute) Hyperkalemia (Acute) Palliative care encounter (Acute) Septic shock (Acute) Hospital Course SIMONA HERNANDEZ, is a 75 F 75-year-old female history of GERD, bipolar disorder, CKD IIIb, 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 She was evaluated the day prior by her GI doctor and had her Saw tube changed, was noted to have mild infection around stoma site and placed on Augmentin for 14 days. On day of presentation patient was feeling generally weak so called EMS to bring her to the ED because he was concerned she would fall. In the ED has been reported over the past 2 or 3 weeks she had abdominal distention, pain, nausea and vomiting. In the ED temp 97.7 which dropped to 93.2, heart rate 94 with a blood pressure of 63/53, respiratory rate 27 and pulse ox 95% on room air. Patient was a stroke called due to the slurred speech. CT head no acute process, CTA head and neck with no LVO however noted significant debris in the region of the esophageal stent. White blood cell count 27.5, hemoglobin 5.3 with a baseline of around 10. Platelet count 452 INR 1.3, troponin 52. CMP demonstrated potassium of 5.9, bicarb of 17.7 with a gap of 25, BUN 119 with a creatinine of 3.88 with a baseline of around 2.5. Lactic acid found to be 10 and an ABG with a pH of 7.16. CTA of the chest showed tree-in-bud opacities generally located dependently in both lungs more pronounced in right lower lobe possibly inflammatory versus infectious. Esophageal fluid and stent also seen. CT of the abdomen pelvis with marked distention of colon and the stomach as well as numerous loops of small bowel which are fluid-filled and large amount of rectal stool. Patient decompensated quickly in the ED requiring mechanical ventilation and initiation of Levophed and was diagnosed with septic shock secondary to aspiration pneumonia with suspected GI bleed given patient's acute anemia. GI contacted by ED physician and agreeable to see patient in consultation. Patient discussed with GI and recreational therapy technician prior to admission. Patient admitted to the ICU on 2 vasopressors and was continued on broad-spectrum antibiotics, she had endoscopy in the ED at bedside on 09/09 due to inability to pass NG through her esophageal stent as well as concerns for upper GI bleed, EGD showed severe erosive esophagitis with bleeding treated with APC with NG tube successfully advance past esophageal stent. Patient continued to have elevated pressor requirements and had a CODE BLUE cardiac arrest 09/10 at 1043 when patient had a regular rhythm on monitor and then became pulseless. Ultimately ROSC achieved and patient was maintained on amiodarone drip in addition to multiple vasopressors. She did have urine that grew pneumococcal pneumonia and sputum growing yeastlike organisms, maintained on broad-spectrum antibiotics and micafungin also added, ID consulted. In regards to her abdominal distention her NG had been advanced into her stomach and was returning what seemed to be fecal material, also had rectal tube placed with initial improvement in distention however no significant output afterwards. Patient continued to be acidotic and critically ill with multiorgan failure, did have nephrology consult in the event patient would be candidate for CRRT though very unlikely, nephrology discussed with family and, reasonably, no CRRT was pursued. Patient maintained on multiple pressors despite maximal interventions. She did have another colonoscopy 09/11/2025 which showed redundant colon with stricture and mucosal ulceration. Patient continued to be on maximal life support, after family discussion family pursued comfort care with extubation. Patient ultimately with time of 1242 Assessment & Plan Assessment/Plan (1) Septic shock: (2) Aspiration pneumonia: (3) CITLALY (acute kidney injury): (4) Acute blood loss anemia: (5) Hyperkalemia: PLAN: Plan # Septic shock secondary to aspiration and pneumococcal pneumonia -Patient presented with a blood cell count of 27.5, CITLALY, lactic acid of 10, bicarb of 17.7 and persistent hypotension with systolic blood pressure in the 60s necessitating central line placement and Levophed -Patient also placed on vasopressin while in the ED -Patient with CT chest/abdomen/pelvis with CT chest showing suspected aspiration pneumonia -There were esophageal contents there is increased concern for aspiration -Patient received 2 L of IV fluid in the ED -Blood cultures -Sputum culture, COVID ordered, respiratory panel ordered -Urine antigens -Mucinex, I/S - Vancomycin and Zosyn given severity of patient's illness -Will check MRSA swab -Given patient's significant acidosis also starting on bicarb drip -Market President consult -09/10: Patient was up to 4 pressors overnight on stress dose steroids and did have a CODE BLUE but achieved ROSC. Pt did have urine antigen positive for pneumococcal pneumonia. Continuing broad-spectrum antibiotics and following cultures. Did ultimately have to have a fifth pressor added and has been maintaining on that at this time, overnight did receive a dose of micafungin, sputum is growing a not Jessi yeast, unclear significance however given her critical illness this has been continued. Continue supportive care -09/11: Patient remains febrile, urine had pneumococcal pneumonia, sputum growing yeastlike organism, not Jessi of unclear significance. Given persistently elevated fever with concomitant increase in white blood cell count despite multiple agents, will consult ID for assistance. Micafungin had been given 1 dose after patient coded, this has been continued. Patient remains on multiple pressors but does seem to have improving blood pressure -09/12: Comfort care pursued with palliative extubation # Cardiac arrest -09/10: CODE DARCI called at 1043 when nursing staff noted an irregular rhythm on monitor and EKG ordered however patient became pulseless. Patient received epinephrine and bicarb as well as amiodarone bolus and drip and achieved ROSC. Multifactorial, patient was up to 4 pressors with critical illness and was hyperkalemic on presentation and received K-lowering and cocktail but repeat BMP had yet to be redrawn. Repeat potassium was obtained after CODE BLUE and showed a potassium of 6.3, decreased to 5.9 but will work on further aggressively lowering potassium and continue to address underlying processes/patient's shock -09/11: Patient remains critically ill in ICU on multiple drips, CODE STATUS has been discussed with family multiple times and patient currently still full code. Echocardiogram ordered and pending. Additionally palliative consult placed to help with goals of care discussion -09/12: Comfort care pursued with palliative extubation # Acute blood loss anemia secondary to bleeding esophagitis - Hemoglobin 5.3 down from 7.3 yesterday baseline appears to be about 10 - Fecal occult reported to be negative however given presentation and clinical picture with significant elevation in BUN as well as suspected patient has upper GI bleed -PPI drip -GI consult -Patient being transfused -Trend H&H -09/10: Received 2 units of packed red blood cells with improvement in hemoglobin to 10.5, patient underwent endoscopy in the ICU at bedside due to critical illness and was found to have severe erosive esophagitis with bleeding that was treated with APC, brown gastric fluid noted with no lesions in the duodenum, patient's NG tube was successfully advanced past esophageal stent as well. Hemoglobin stable this a.m., continue IV PPI -09/11: Hemoglobin is stabilized post endoscopy, continue IV PPI -09/12: Comfort care pursued with palliative extubation # Abdominal distention -CT of the abdomen pelvis with marked distention of colon and the stomach as well as numerous loops of small bowel which are fluid-filled and large amount of rectal stool -Patient did have similar findings on previous scans been going back a couple of years ago however it is currently worsened - does note that she has been still having some stool output -Soapsuds enemas -NG placed in the ED, to be repositioned to traverse esophageal stent -Hold glycopyrrolate -09/10: NG tube advanced endoscopically passed esophageal stent into stomach, enemas as able as distention seems to be due to significant rectal stool burden and likely concomitant ileus secondary to critical illness, patient is critically ill and not a good surgical candidate nor is there a specific surgical indication at this time, cannot rule out ischemic bowel, unable to anticoagulate due to concurrent anemia and blood loss -09/11: Rectal tube in place without significant output, does still have abdominal distention -09/12: Comfort care pursued with palliative extubation # Acute respiratory failure secondary to underlying critical illness, suspected aspiration, and pneumonia -Patient required intubation and sedation -Market President consult -Vent management -09/10: Patient remains intubated and mechanically ventilated, currently 96% on 50% FiO2, recreational therapy technician following, continue broad-spectrum antibiotics -09/11: Market President following, remains intubated, continue present management -09/12: Comfort care pursued with palliative extubation # Transaminitis -09/10: Normal transaminases 09/08 that were very mildly elevated on presentation but increased significantly due to patient's shock, 957 this a.m., address underlying illness and wean pressors as able -09/11: Slightly downtrending -09/12: Comfort care pursued with palliative extubation # CITLALY on CKD stage IIIb -Patient's creatinine 3.88 up from 3.21 yesterday -Appears baseline is around 2.5 -Suspect secondary to critical illness -IV fluids -Support underlying process - Low threshold for nephrology consult -09/10: Creatinine is downtrending, baseline creatinine around 2.5, 3.88 yesterday and this a.m. 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 Discussed with recreational therapy technician and it was recommended to consult nephrology to see if patient would be a CRRT candidate that this is unlikely, discussed with them and they discussed with family, will not pursue CRRT and is not good candidate at this time. Discussed with GI and it was recommended that Kayexalate be given and NG tube clamped for 1 hour, discussed with nursing and order entered -09/12: Comfort care pursued with palliative extubation # Elevated troponin - Troponin of 52 with repeat of 52 -Suspect that this is secondary to septic shock -09/10: Troponins initially downtrended but post CODE BLUE and ROSC they had elevated again, echocardiogram ordered -09/11: Echo pending -09/12: Comfort care pursued with palliative extubation # PEG tube - CT queried if percutaneous tube was in stomach -Discussed with GI, patient has endoscopy this can be corrected -Hold feeds at this time -09/10: On EGD normal-appearing PEG tube was seen under endoscopy -09/11: PEG tube reportedly in place -09/12: Comfort care pursued with palliative extubation
[2025-09-12 13:21] LABS: Reflex Lactate? Y
--- NOTE | 2025-09-12 13:32 | NURSING ---
Time of 1242, family at bedside, confirmed with this RN and Rox Camp RN. Notified Dr. Livingston, Friend, Dr. Saavedra, Pina- palliative.
--- NOTE | 2025-09-12 14:10 | NURSING ---
D/C rectal tube at this time
--- NOTE | 2025-09-12 15:57 | CHAPLAIN ---
Type of Pastoral Visit ___ Initial Visit _x__ Follow-up Visit ___ On-call Visit ___ General Patient Visit ___ Spiritual Assessment _x__ Family Conference _x__ Bereavement ___ Rapid Response ___ Code Blue ___ Other (describe below) Pastoral Care Referral From ___ Patient _x__ Family _x__ Nurse ___ Physician ___ Keyliner ___ Clay Dry Press Operator ___ Other (describe below) Sacrament/Intervention _x__ Active listening ___ Anointing ___ Jehovah'S Witness _x__ Bereavement ___ Communion _x__ Leeanne exploration ___ _x__ Life review _x__ Prayer ___ Reconciliation ___ Sacrament of Sick _x__ Supportive presence ___ Wedding _x__ Other (describe below) Pastoral Comments many family members have gathered to be with patient as she is to be extubated later this morning; family has asked for a entry level project coordinator to come and offer Anointing of the Sick; entry level project coordinator is contacted by this school bus dispatcher and he arrives to perform this Rite; later this school bus dispatcher checked in with family and was introduced to large group including spouse, daughter, siblings, nieces, nephews, and in laws; several family members express their leeanne and seek additional spiritual care support in distinction from the financial compliance examiner; supportive presence, listening to concerns, and prayer given; a presentation was made of a prayer blanket prior to the extubation and family members express their gratitude; after extubation this school bus dispatcher checked on family who were actively engaged at bedside talking to the dying patient and to one another above their love and memories; after the also checked on the family to offer support; family asked questions about what is next and this school bus dispatcher became a intermediary with staff about final wishes and expectations of family; was present to family and again they expressed thanks for the support and care of staff and school bus dispatcher
== END 2025-09-12 15:05 | DRG 871 ==
LOC: ED 15:12 → ICU 15:38
PROVIDERS: Family Medicine; Internal Medicine Critical Care Medicine; Internal Medicine Gastroenterology; Internal Medicine Pulmonary Disease; Admitting Provider Internal Medicine; Emergency Provider Student in an Organized Health Care Education/Training Program; PCP Nurse Practitioner Family; Visit Provider Internal Medicine
PROC: 0DJ08ZZ Inspection of Upper Intestinal Tract, Via Natural or Artificial Opening Endoscopic (ICD-10-PCS; CPT 43235; principal; 2025-09-09 18:30)
PROC: 0DJD8ZZ Inspection of Lower Intestinal Tract, Via Natural or Artificial Opening Endoscopic (ICD-10-PCS; CPT 45378; principal; 2025-09-11 14:25)
DX: A40.3 Sepsis due to Streptococcus pneumoniae (principal); J69.0 Pneumonitis due to inhalation of food and vomit; N17.0 Acute kidney failure with tubular necrosis; R65.21 Severe sepsis with septic shock; J96.01 Acute respiratory failure with hypoxia; G92.8 Other toxic encephalopathy; J15.4 Pneumonia due to other streptococci; K21.01 Gastro-esophageal reflux disease with esophagitis, with bleeding; K56.699 Other intestinal obstruction unspecified as to partial versus complete obstruction; I24.89 Other forms of acute ischemic heart disease; D62 Acute posthemorrhagic anemia; E87.20 Acidosis, unspecified; Q43.8 Other specified congenital malformations of intestine; K92.0 Hematemesis; I46.9 Cardiac arrest, cause unspecified; F31.9 Bipolar disorder, unspecified; N18.32 Chronic kidney disease, stage 3b; I12.9 Hypertensive chronic kidney disease with stage 1 through stage 4 chronic kidney disease, or unspecified chronic kidney disease; E05.90 Thyrotoxicosis, unspecified without thyrotoxic crisis or storm; K22.2 Esophageal obstruction; K44.9 Diaphragmatic hernia without obstruction or gangrene; E87.5 Hyperkalemia; E87.70 Fluid overload, unspecified; K56.41 Fecal impaction; K63.89 Other specified diseases of intestine; R47.81 Slurred speech; Z86.711 Personal history of pulmonary embolism; Z87.891 Personal history of nicotine dependence; Z66 Do not resuscitate; Z79.899 Other long term (current) drug therapy
CPT/HCPCS: 31500; 31720; 36415; 36600; 70450; 70496; 70498; 71045; 71275; 74018; 74177; 80048; 80053; 80202; 81001; 82274; 82728; 82784; 82803; 82962; 83540; 83605; 83615; 83690; 83735; 84100; 84165; 84443; 84484; 85014; 85018; 85025; 85610; 85730; 86334; 86850; 86900; 86901; 87040; 87070; 87205; 87449; 87633; 87641; 87811; 93005; 94002; 94003; 97802; 99252; 99285; P9016; P9047; Q9967; A4216; C1751; G0463; J0612; J2405